=== PATIENT | male | born 1980 | race American Indian/Alaskan Native ===

== ENCOUNTER 2018-01-04 17:19 | Emergency (ER) | payer MEDICAID, OTHER, SELFPAY | END 2018-01-04 22:14 | disposition home or self-care (01) | PROVIDERS: Emergency Provider Emergency Medicine; Visit Provider Emergency Medicine | DX: J45.901 Unspecified asthma with (acute) exacerbation (principal); F41.9 Anxiety disorder, unspecified | CPT/HCPCS: 93005; 93010; 94640; 96372; 99283; J1885; J2930 ==

== ENCOUNTER 2018-01-28 00:52 | Emergency (ER) | payer MEDICAID, OTHER, SELFPAY ==
--- NOTE | 2018-01-28 | DI.US.S_ITS ---
PROCEDURE: US PERIPH VENOUS LOW EXTREM BI INDICATIONS: swelling TECHNIQUE: Real-time imaging, as well as color and pulse Doppler interrogation, were performed of the deep veins of both legs from the inguinal ligament to the popliteal fossa. COMPARISON: None. FINDINGS: Image quality limited secondary to patient body habitus. Only the distal superficial femoral veins and popliteal veins of the lower extremities could be visualized due to patient body habitus. The visualized deep veins are normally compressible, and free of intraluminal thrombus. Color and pulse Doppler demonstrate normal phasic intravascular flow in the visualized. There is normal augmentation response to distal compression maneuver. IMPRESSION: 1. Study limited by patient body habitus. 2. Only the distal superficial femoral veins and the popliteal veins of the right and left lower extremities could be visualized. 3. No thrombus identified in the visualized deep venous system of the right and left lower extremities. Dictated by: Zainab Cardozo MD, PhD on 01/28/2018 at 7:55 Approved by: Zainab Cardozo MD, PhD on 01/28/2018 at 7:57
[2018-01-28 01:10] VITALS: BP 113/56; PULSE 92; RESP 20; TEMP 36.4; O2SAT 93
--- NOTE | 2018-01-28 01:18 | ED.EXTPRO ---
HPI - Extremity Problem General Chief complaint: Extremity Problem,Nontraumatic Stated complaint: LEGS ARE SWOLLEN Time Seen by Provider: 01/28/18 01:18 Source: patient Mode of arrival: wheelchair Limitations: no limitations and other History of Present Illness HPI Narrative: Patient is a 37-year-old morbidly obese male with bilateral lower leg swelling. He says over the past few days he really has not been moving much mostly in his recliner. He feels like his legs are much more swollen and slightly erythematous. He thinks that he has been feverish and he denies any worsening worsening shortness of breath. History of asthma in even requires oxygen sometimes although he is not on oxygen now is not having difficulty breathing. He says his legs her bilaterally. MD Complaint: extremity pain and extremity swelling Onset (ago): day(s) (3) Pain Consistency: constant Location: left, right and lower extremity Related Data Home Medications Medication Instructions Recorded Confirmed methadone 95 mg PO QDAY #0 05/07/17 01/28/18 albuterol sulfate 3 ml INH Q4HP PRN 01/28/18 01/28/18 prednisone 0 PO BID 01/28/18 Previous Rx's Medication Instructions Recorded fluticasone-salmeterol [Advair 1 puff INH BID #2 inh 04/28/17 Diskus] albuterol sulfate [Ventolin HFA] 2 - 4 puff INH SEE INSTRUCTIONS #2 07/16/17 inh furosemide [Lasix] 40 mg PO DAILY #3 tab 01/28/18 sulfamethoxazole-trimethoprim 1 tab PO BID 5 Days #14 tab 01/28/18 [Bactrim DS] Allergies Allergy/AdvReac Type Severity Reaction Status Date / Time NSAIDS (Non-Steroidal Allergy Unknown ASTHMA Verified 01/28/18 01:25 Anti-Inflamma FLARE UPS [NSAIDS (NON-STEROIDAL ANTI-INFLAMMA] ibuprofen AdvReac Mild nausea, GI Verified 01/28/18 01:25 upset Review of Systems Review of Systems All systems reviewed & are unremarkable except as noted in HPI and below Constitutional Denies chills, Reports fever(s), Denies lethargy and Denies weakness Cardiovascular Denies chest pain, Denies irregular heart rhythm, Denies lightheadedness, Denies palpitations, Denies dyspnea on exertion and Denies orthopnea Respiratory Denies change in phlegm color, Denies cough and Denies dyspnea on exertion Gastrointestinal Gastrointestinal: Denies abdominal pain, Denies change in bowel habits, Denies diarrhea, Denies nausea and Denies vomiting Musculoskeletal Reports as per HPI and Denies numbness Neurologic Denies numbness and Denies weakness Endocrine Denies palpitations [facility] Social History Smoking Status: Never smoker Exam Const General: cooperative Nutritional Appearance: obese morbidly obese Orientation: alert, awake and oriented x3 Resp Effort & Inspection: normal respiratory effort, able to speak in complete sentences, no respiratory distress and no use of accessory muscles Auscultation: clear to auscultation bilaterally, no rales, no rhonchi and no wheezes Cardio Rate: regular rate Rhythm: regular rhythm Heart Sounds: no click, no gallops, no murmurs and no rubs Pulses: normal peripheral pulses GI Inspection: non-distended Palpation: soft, no hepatosplenomegaly, No guarding, No pulsatile mass and No tender Auscultation: normal bowel sounds Skin General: erythema (Mild bilateral) Wounds: no wounds and no wounds noted Neuro General: alert, awake and oriented x3 Cranial Nerves: CN's II-XI intact bilaterally Cognition: normal cognition Speech: speech normal Extrem Right lower extremity: edema Details: non-pitting Left lower extremity: edema Details: non-pitting MDM - Extremity (Nontraumatic) MDM Narrative Medical decision making narrative: Patient is a morbidly obese on male with multiple complications. Difficult to tell how much swelling is actually in his lower extremities. Although he does have some. Very slight erythema but no all leukocytosis and he is afebrile. I think the erythema is probably due from some of the swelling. He does not want Lasix here because then he will urinate. He would rather have a prescription he can take it when he gets home. Based on his history I will give him a prescription for an antibiotic. He does get MRSA and skin infections often. Medical Records Attestation: I reviewed the patient's medical records. Lab Data Attestation: I reviewed the patient's lab results. Result diagrams: 01/28/18 01:52 01/28/18 01:52 Lab Results 01/28/18 01/28/18 Range/Units 01:52 01:52 WBC 7.5 (4.5-11.0) X10^3/uL RBC 4.25 L (4.5-5.9) X10^6/uL Hgb 11.1 L (13.5-17.5) g/dL Hct 34.1 L (41-53) % MCV 80.3 (80-100) fL MCH 26.2 (26-34) PG MCHC 32.6 (30-36) % RDW 17.0 H (11.6-14.8) % Plt Count 108 L (150-400) X10^3/uL Neut % (Auto) 68.7 (50-75) % Lymph % (Auto) 19.2 L (25-40) % [place] % (Auto) 7.1 (3-14) % Eos % (Auto) 4.2 H (2-4) % Baso % (Auto) 0.8 (0-2) % Neut # (Auto) 5100 (1361-3816) /uL Sodium 140 (137-145) mmol/L Potassium 3.8 (3.4-5.1) mmol/L Chloride 100.0 (98-107) mmol/L Carbon Dioxide 35.0 H (22-32) mmol/L BUN 10.0 (9-20) mg/dL Creatinine 0.60 L (0.66-1.25) mg/dL Estimated GFR > 60.0 (>60) mL/min BUN/Creatinine Ratio 16.7 (6-22) Glucose 106 H (70-100) mg/dL Calcium 8.1 L (8.4-10.2) mg/dL Total Bilirubin 0.5 (0.2-1.3) mg/dL AST 12 L (17-59) IU/L ALT 22 (21-72) IU/L Alkaline Phosphatase 74 (38-126) U/L B-Natriuretic Peptide < 29.3 L (<100) Total Protein 6.3 (6.3-8.2) g/dL Albumin 3.3 L (3.5-5.0) g/dL Globulin 3.0 (1.7-4.1) g/dL Albumin/Globulin Ratio 1.1 (1.0-2.8) Imaging Data 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 DVT Course Orders Ordered: ED Orders 01/28/18 US periph venous low extrem bi Stat 01/28/18 01:52 B Type Natriuretic Peptide Stat Complete Blood Count AUTO DIFF Stat Comprehensive Metabolic Panel Stat Last Vital Signs Temp 97.6 F 01/28/18 01:10 Pulse 97 H 01/28/18 03:43 Resp 20 01/28/18 01:10 BP 116/47 L 01/28/18 03:43 Pulse Ox 93 01/28/18 01:10 Discharge Plan Departure Patient Disposition: Home, Self-Care Clinical Impression: Edema extremities Discharge Date/Time: 01/28/18 03:43 Interventions: ED Discharge Assessment Last Done: 01/28/18 03:43 Instructions: DI for Dependent Edema Activity Restrictions/Additional Instructions: *You have been diagnosed with bilateral leg edema *What to do: Keep legs elevated *Take medications as directed -Lasix 1 pill once a day in the morning for 3 days -antibiotic until gone *Follow up with your primary care provider in 2-3 days *Return to ER if you should have increasing redness, increasing pain or any new, worsening or concerning symptoms Prescriptions: New sulfamethoxazole-trimethoprim [Bactrim DS] 800-160 mg tablet 1 tab PO BID 5 Days Qty: 14 RF: 0 furosemide [Lasix] 40 mg tablet 40 mg PO DAILY Qty: 3 RF: 0 No Action fluticasone-salmeterol [Advair Diskus] 500 MCG/50 MCG blister with device 1 puff INH BID Qty: 2 RF: 5 methadone 10 MG tablet 95 mg PO QDAY Qty: 0 RF: 0 albuterol sulfate [Ventolin HFA] 90 MCG/PUFF HFA aerosol inhaler 2 - 4 puff INH SEE INSTRUCTIONS Qty: 2 RF: 6 prednisone 10 MG tablet PO BID RF: 0 albuterol sulfate 2.5 MG/3 ML solution for nebulization 3 ml INH Q4HP PRN (Reason: Wheezing) RF: 0 Referrals: Gabe Meraz PA-C [Non-Staff] -
[2018-01-28 02:03] LABS: Add Manual Diff / Slide Review NO; Basophils Percent Auto 0.8 % (0-2); Eosinophils Percent Auto 4.2 % (2-4); Hematocrit 34.1 % (41-53); Hemoglobin 11.1 g/dL (13.5-17.5); Lymphocytes Percent Auto 19.2 % (25-40); Mean Corpuscular HGB Conc 32.6 % (30-36); Mean Corpuscular Hemoglobin 26.2 PG (26-34); Mean Corpuscular Volume 80.3 fL (80-100); Monocytes Percent Auto 7.1 % (3-14); Neutrophils Absolute Auto 5100 /uL (3000-5900); Neutrophils Percent Auto 68.7 % (50-75); Platelet Count 108 X10^3/uL (150-400); Red Blood Cell Count 4.25 X10^6/uL (4.5-5.9); White Blood Cell Count 7.5 X10^3/uL (4.5-11.0)
[2018-01-28 02:12] LABS: Alanine Aminotransferase 22 IU/L (21-72); Albumin 3.3 g/dL (3.5-5.0); Albumin Globulin Ratio 1.1 (1.0-2.8); Alkaline Phosphatase 74 U/L (38-126); Aspartate Aminotransferase 12 IU/L (17-59); BUN Creatinine Ratio 16.7 (6-22); Bilirubin Total 0.5 mg/dL (0.2-1.3); Calcium 8.1 mg/dL (8.4-10.2); Estimated Glomerular Filt Rate > 60.0 mL/min (>60); Glucose 106 mg/dL (70-100); HEMOLYSIS < 15 (0-50); Potassium 3.8 mmol/L (3.4-5.1); Sodium 140 mmol/L (137-145); Total Protein 6.3 g/dL (6.3-8.2)
[2018-01-28 02:25] LABS: B Type Natriuretic Peptide < 29.3 (<100)
[2018-01-28 03:43] VITALS: BP 116/47; PULSE 97
--- NOTE | 2018-01-28 06:27 | ED_ITS ---
HPI - Extremity Problem General Chief complaint: Extremity Problem,Nontraumatic Stated complaint: LEGS ARE SWOLLEN Time Seen by Provider: 01/28/18 01:18 Source: patient Mode of arrival: wheelchair Limitations: no limitations and other History of Present Illness HPI Narrative: Patient is a 37-year-old morbidly obese male with bilateral lower leg swelling. He says over the past few days he really has not been moving much mostly in his recliner. He feels like his legs are much more swollen and slightly erythematous. He thinks that he has been feverish and he denies any worsening worsening shortness of breath. History of asthma in even requires oxygen sometimes although he is not on oxygen now is not having difficulty breathing. He says his legs her bilaterally. MD Complaint: extremity pain and extremity swelling Onset (ago): day(s) (3) Pain Consistency: constant Location: left, right and lower extremity Related Data Home Medications Medication Instructions Recorded Confirmed methadone 95 mg PO QDAY #0 05/07/17 01/28/18 albuterol sulfate 3 ml INH Q4HP PRN 01/28/18 01/28/18 prednisone 0 PO BID 01/28/18 Previous Rx's Medication Instructions Recorded fluticasone-salmeterol [Advair 1 puff INH BID #2 inh 04/28/17 Diskus] albuterol sulfate [Ventolin HFA] 2 - 4 puff INH SEE INSTRUCTIONS #2 07/16/17 inh furosemide [Lasix] 40 mg PO DAILY #3 tab 01/28/18 sulfamethoxazole-trimethoprim 1 tab PO BID 5 Days #14 tab 01/28/18 [Bactrim DS] Allergies Allergy/AdvReac Type Severity Reaction Status Date / Time NSAIDS (Non-Steroidal Allergy Unknown ASTHMA Verified 01/28/18 01:25 Anti-Inflamma FLARE UPS [NSAIDS (NON-STEROIDAL ANTI-INFLAMMA] ibuprofen AdvReac Mild nausea, GI Verified 01/28/18 01:25 upset Review of Systems Review of Systems All systems reviewed & are unremarkable except as noted in HPI and below Constitutional Denies chills, Reports fever(s), Denies lethargy and Denies weakness Cardiovascular Denies chest pain, Denies irregular heart rhythm, Denies lightheadedness, Denies palpitations, Denies dyspnea on exertion and Denies orthopnea Respiratory Denies change in phlegm color, Denies cough and Denies dyspnea on exertion Gastrointestinal Gastrointestinal: Denies abdominal pain, Denies change in bowel habits, Denies diarrhea, Denies nausea and Denies vomiting Musculoskeletal Reports as per HPI and Denies numbness Neurologic Denies numbness and Denies weakness Endocrine Denies palpitations [facility] Social History Smoking Status: Never smoker Exam Const General: cooperative Nutritional Appearance: obese morbidly obese Orientation: alert, awake and oriented x3 Resp Effort & Inspection: normal respiratory effort, able to speak in complete sentences, no respiratory distress and no use of accessory muscles Auscultation: clear to auscultation bilaterally, no rales, no rhonchi and no wheezes Cardio Rate: regular rate Rhythm: regular rhythm Heart Sounds: no click, no gallops, no murmurs and no rubs Pulses: normal peripheral pulses GI Inspection: non-distended Palpation: soft, no hepatosplenomegaly, No guarding, No pulsatile mass and No tender Auscultation: normal bowel sounds Skin General: erythema (Mild bilateral) Wounds: no wounds and no wounds noted Neuro General: alert, awake and oriented x3 Cranial Nerves: CN's II-XI intact bilaterally Cognition: normal cognition Speech: speech normal Extrem Right lower extremity: edema Details: non-pitting Left lower extremity: edema Details: non-pitting MDM - Extremity (Nontraumatic) MDM Narrative Medical decision making narrative: Patient is a morbidly obese on male with multiple complications. Difficult to tell how much swelling is actually in his lower extremities. Although he does have some. Very slight erythema but no all leukocytosis and he is afebrile. I think the erythema is probably due from some of the swelling. He does not want Lasix here because then he will urinate. He would rather have a prescription he can take it when he gets home. Based on his history I will give him a prescription for an antibiotic. He does get MRSA and skin infections often. Medical Records Attestation: I reviewed the patient's medical records. Lab Data Attestation: I reviewed the patient's lab results. Result diagrams: 01/28/18 01:52 01/28/18 01:52 Lab Results 01/28/18 01/28/18 Range/Units 01:52 01:52 WBC 7.5 (4.5-11.0) X10^3/uL RBC 4.25 L (4.5-5.9) X10^6/uL Hgb 11.1 L (13.5-17.5) g/dL Hct 34.1 L (41-53) % MCV 80.3 (80-100) fL MCH 26.2 (26-34) PG MCHC 32.6 (30-36) % RDW 17.0 H (11.6-14.8) % Plt Count 108 L (150-400) X10^3/uL Neut % (Auto) 68.7 (50-75) % Lymph % (Auto) 19.2 L (25-40) % [place] % (Auto) 7.1 (3-14) % Eos % (Auto) 4.2 H (2-4) % Baso % (Auto) 0.8 (0-2) % Neut # (Auto) 5100 (4121-7552) /uL Sodium 140 (137-145) mmol/L Potassium 3.8 (3.4-5.1) mmol/L Chloride 100.0 (98-107) mmol/L Carbon Dioxide 35.0 H (22-32) mmol/L BUN 10.0 (9-20) mg/dL Creatinine 0.60 L (0.66-1.25) mg/dL Estimated GFR > 60.0 (>60) mL/min BUN/Creatinine Ratio 16.7 (6-22) Glucose 106 H (70-100) mg/dL Calcium 8.1 L (8.4-10.2) mg/dL Total Bilirubin 0.5 (0.2-1.3) mg/dL AST 12 L (17-59) IU/L ALT 22 (21-72) IU/L Alkaline Phosphatase 74 (38-126) U/L B-Natriuretic Peptide < 29.3 L (<100) Total Protein 6.3 (6.3-8.2) g/dL Albumin 3.3 L (3.5-5.0) g/dL Globulin 3.0 (1.7-4.1) g/dL Albumin/Globulin Ratio 1.1 (1.0-2.8) Imaging Data 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 Course Orders Ordered: ED Orders 01/28/18 US periph venous low extrem bi Stat 01/28/18 01:52 B Type Natriuretic Peptide Stat Complete Blood Count AUTO DIFF Stat Comprehensive Metabolic Panel Stat Last Vital Signs Temp 97.6 F 01/28/18 01:10 Pulse 97 H 01/28/18 03:43 Resp 20 01/28/18 01:10 BP 116/47 L 01/28/18 03:43 Pulse Ox 93 01/28/18 01:10 Discharge Plan Departure Patient Disposition: Home, Self-Care Clinical Impression: Edema extremities Discharge Date/Time: 01/28/18 03:43 Interventions: ED Discharge Assessment Last Done: 01/28/18 03:43 Instructions: DI for Dependent Edema Activity Restrictions/Additional Instructions: *You have been diagnosed with bilateral leg edema *What to do: Keep legs elevated *Take medications as directed -Lasix 1 pill once a day in the morning for 3 days -antibiotic until gone *Follow up with your primary care provider in 2-3 days *Return to ER if you should have increasing redness, increasing pain or any new , worsening or concerning symptoms Prescriptions: New sulfamethoxazole-trimethoprim [Bactrim DS] 800-160 mg tablet 1 tab PO BID 5 Days Qty: 14 RF: 0 furosemide [Lasix] 40 mg tablet 40 mg PO DAILY Qty: 3 RF: 0 No Action fluticasone-salmeterol [Advair Diskus] 500 MCG/50 MCG blister with device 1 puff INH BID Qty: 2 RF: 5 methadone 10 MG tablet 95 mg PO QDAY Qty: 0 RF: 0 albuterol sulfate [Ventolin HFA] 90 MCG/PUFF HFA aerosol inhaler 2 - 4 puff INH SEE INSTRUCTIONS Qty: 2 RF: 6 prednisone 10 MG tablet PO BID RF: 0 albuterol sulfate 2.5 MG/3 ML solution for nebulization 3 ml INH Q4HP PRN (Reason: Wheezing) RF: 0 Referrals: Gabe Meraz PA-C [Non-Staff] -
== END 2018-01-28 03:43 | disposition home or self-care (01) ==
PROVIDERS: Emergency Provider Emergency Medicine
DX: R60.0 Localized edema (principal)
CPT/HCPCS: 36415; 80053; 83880; 85025; 93970; 99282; 99284

== ENCOUNTER 2018-02-04 05:31 | Emergency (ER) | payer MEDICAID, OTHER, SELFPAY ==
[2018-02-04 05:41] VITALS: BP 152/70; PULSE 98; RESP 20; TEMP 36.8; O2SAT 99; BMI 84.1
[2018-02-04] MEDS: HALOPERIDOL 5 MG/ML VIAL 3 MG IM ×2 (06:12→06:52)
[2018-02-04] MEDS: LORazepam 2 MG/ML SYRINGE 1 MG IM ×2 (06:12→06:53)
--- NOTE | 2018-02-04 06:56 | ED_ITS ---
HPI - Anxiety General Chief Complaint: Anxiety Stated Complaint: CHEST HURTS, BODY IS RESTLESS, FEELS FUNNY History of Present Illness HPI narrative: HPI 37-year-old morbidly obese male with history of asthma, RAJESH, morbid obesity, anxiety presents for evaluation of feeling anxious that is been present since yesterday evening. Patient continues to take p.o. well, pass urine, flatus, and stool at baseline, denies dysuria, urinary frequency, diarrhea, shortness of breath, cough, and has been afebrile without chills. Patient denies history of DVT or PE. Denies change in health since prior evaluation 01/25 M/S/F/SocHx notable for: please see HPI; remainder reviewed with patient and in chart. ROS: Negative constitutional, eye, cardiovascular, pulmonary, GI, , MSK, skin , neurologic, psychiatric, endocrine unless noted in the HPI. Exam HR 98, BP 152/70, RR 20, T 98.2 ?F, SaO2 99 % on room air; at 5:41 AM. Gen: pleasant, nontoxic-appearing, tearful, resting comfortably. HEENT: NC, AT, PEERL, EOMI. Resp: Clear to auscultation bilaterally, normal work of breathing, no accessory muscle usage. Card: Regular rate and rhythm with no murmurs, rubs, or gallops, extremities warm and well perfused. GI: Non-tender to palpation throughout all quadrants, no focal tenderness at McBurney's point, negative Leyva's sign, non-distended, no rebound or guarding. : No suprapubic tenderness to palpation. MSK: No visible deformities, strength and tone without visually appreciable deficit. Skin: Normal color with no visible lesions. Neuro: AO x 3, no facial asymmetry, vision and hearing WNL. Psych: tearful, emotionally labile, redirectable, mood and affect otherwise appropriate. MDM Previous chart, nursing note, labs, imaging, and vitals reviewed. A: 37-year-old morbidly obese male with history of asthma, RAJESH, morbid obesity, anxiety presents for evaluation of feeling anxious that is been present since yesterday evening. DDx: anxiety secondary to pneumonia, hypoxemia, PE, electrolyte abnormalities, psychological stress, drug withdraw. Evaluation: at the time of initial evaluation the patient's history and exam are without findings suggestive of pneumonia, and vitals are without hypoxemia, patient is PERC negative, and labs on 01/28/18 (which by history remained clinically relevant) are without evidence of clinically significant electrolyte abnormalities. Patient was given 3 mg haloperidol and 1 mg Ativan IM with moderate improvement of symptoms, patient was given a repeat dose 3 mg haloperidol and 1 mg Ativan IM prior to patient care transfer to the oncoming daytime provider. History is without clear evidence of drug withdraw. Please refer to the daytime provider's note for the remainder of the patient's evaluation in disposition. (please reference below for remainder of encounter information) PERC negative (age >= 50 - N, HR >= 100 - N, SaO2 < 95 - N, prior DVT - N, trauma or surgery in last 4 weeks - N, hemoptysis - N, exogenous estrogen - N, unilateral leg swelling - N). Related Data Home Medications Medication Instructions Recorded Confirmed methadone 95 mg PO QDAY #0 05/07/17 01/28/18 albuterol sulfate 3 ml INH Q4HP PRN 01/28/18 01/28/18 prednisone 0 PO BID 01/28/18 Previous Rx's Medication Instructions Recorded fluticasone-salmeterol [Advair 1 puff INH BID #2 inh 04/28/17 Diskus] albuterol sulfate [Ventolin HFA] 2 - 4 puff INH SEE INSTRUCTIONS #2 07/16/17 inh furosemide [Lasix] 40 mg PO DAILY #3 tab 01/28/18 Allergies Allergy/AdvReac Type Severity Reaction Status Date / Time NSAIDS (Non-Steroidal Allergy Unknown ASTHMA Verified 01/28/18 01:25 Anti-Inflamma FLARE UPS [NSAIDS (NON-STEROIDAL ANTI-INFLAMMA] ibuprofen AdvReac Mild nausea, GI Verified 01/28/18 01:25 upset PFSH Social History Smoking Status: Never smoker Exam Initial Vital Signs Initial Vital Signs: Vital Signs Temperature 98.2 F 02/04/18 05:41 Pulse Rate 98 H 02/04/18 05:41 Respiratory Rate 20 02/04/18 05:41 Blood Pressure 152/70 H 02/04/18 05:41 Pulse Oximetry 99 02/04/18 05:41 Course Orders Ordered: Discontinued Medications Haloperidol (Haldol) 3 mg IM NOW ONE Stop: 02/04/18 05:54 Last Admin: 02/04/18 06:12 Dose: 3 mg Haloperidol (Haldol) 3 mg IM NOW ONE Stop: 02/04/18 06:46 Last Admin: 02/04/18 06:52 Dose: 3 mg Lorazepam (Ativan) 1 mg IM NOW ONE Stop: 02/04/18 05:54 Last Admin: 02/04/18 06:12 Dose: 1 mg Lorazepam (Ativan) 1 mg IM NOW ONE Stop: 02/04/18 06:46 Last Admin: 02/04/18 06:53 Dose: 1 mg Vital Signs - 8 hr 02/04/18 05:41 Temperature 98.2 F Pulse Rate 98 H Respiratory Rate 20 Blood Pressure 152/70 H Pulse Oximetry 99 Discharge Plan Departure Prescriptions: No Action fluticasone-salmeterol [Advair Diskus] 500 MCG/50 MCG blister with device 1 puff INH BID Qty: 2 RF: 5 methadone 10 MG tablet 95 mg PO QDAY Qty: 0 RF: 0 albuterol sulfate [Ventolin HFA] 90 MCG/PUFF HFA aerosol inhaler 2 - 4 puff INH SEE INSTRUCTIONS Qty: 2 RF: 6 prednisone 10 MG tablet PO BID RF: 0 albuterol sulfate 2.5 MG/3 ML solution for nebulization 3 ml INH Q4HP PRN (Reason: Wheezing) RF: 0 furosemide [Lasix] 40 mg tablet 40 mg PO DAILY Qty: 3 RF: 0
--- NOTE | 2018-02-04 07:28 | PC.NURSE ---
Pt crying in room. States I'm going to loose it and start throwing things. Verbally reassured. Pt requesting more medication. Can't you just tranquilize me?. Dr. Roberts in to re-evaluate.
[2018-02-04] MEDS: diphenhydrAMINE 50 MG/ML VIAL IV (07:38)
[2018-02-04 08:10] VITALS: BP 167/66; PULSE 125; RESP 20; O2SAT 95
--- NOTE | 2018-02-04 08:20 | PC.NURSE ---
Dr. Roberts in to re-evaluate. Pt requesting to shower. Pt is 222 kg. No shower chair available for use. Safety is a concern. Mother 8 pt verbalized understanding.
[2018-02-04] MEDS: OLANZapine ODT 10 MG TAB 20 MG PO (08:30)
== END 2018-02-04 10:09 | disposition home or self-care (01) ==
PROVIDERS: Emergency Provider Emergency Medicine
DX: F41.9 Anxiety disorder, unspecified (principal); J18.9 Pneumonia, unspecified organism
CPT/HCPCS: 82962; 96372; 99283; J1200; J1630; J2060

== ENCOUNTER 2018-02-21 06:41 | Emergency (ER) | payer MEDICAID, OTHER, SELFPAY ==
[2018-02-21 06:49] VITALS: BP 133/61; PULSE 88; RESP 20; TEMP 36.7; O2SAT 96; BMI 82.3
[2018-02-21] MEDS: ALBUTEROL/IPRATROPIUM 3 ML AMPUL INH (07:45)
[2018-02-21 07:48] VITALS: PULSE 84; RESP 18; O2SAT 94
[2018-02-21] MEDS: OLANZapine ODT 10 MG TAB 20 MG PO (08:00)
--- NOTE | 2018-02-21 08:03 | PC.NURSE ---
gave 20 mg of olanzapine odt, could not scan second dose of 10mg
--- NOTE | 2018-02-21 08:30 | PC.NURSE ---
since admit to ed, he has been crying at times, yelling out for nurse, using call light. wanting indvididual things. 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 answered as he calls.
[2018-02-21 08:34] LABS: Add Manual Diff / Slide Review NO; Basophils Percent Auto 0.8 % (0-2); Eosinophils Percent Auto 2.7 % (2-4); Hematocrit 37.1 % (41-53); Hemoglobin 12.2 g/dL (13.5-17.5); Mean Corpuscular HGB Conc 32.8 % (30-36); Mean Corpuscular Hemoglobin 26.4 PG (26-34); Mean Corpuscular Volume 80.6 fL (80-100); Monocytes Percent Auto 6.3 % (3-14); Neutrophils Absolute Auto 7000 /uL (3000-5900); Neutrophils Percent Auto 79.2 % (50-75); Platelet Count 164 X10^3/uL (150-400); Red Cell Distribution Width 16.6 % (11.6-14.8); White Blood Cell Count 8.8 X10^3/uL (4.5-11.0)
[2018-02-21 08:43] LABS: Bacteria Urine None Seen; RBC Urine None Seen (0-5/HPF); WBC Urine None Seen (0-5/HPF)
[2018-02-21 08:46] LABS: Appearance Urine UA CLOUDY; Bilirubin Urine UA NEGATIVE (NEGATIVE); Color Urine UA YELLOW; Glucose Urine UA NEGATIVE (Normal); Ketones Urine UA NEGATIVE (NEGATIVE); Leukocyte Esterase Urine UA NEGATIVE (NEGATIVE); Nitrite Urine UA Negative (Negative); Occult Blood Urine UA NEGATIVE (Negative); Protein Urine UA NEGATIVE (Negative); Specific Gravity Urine UA 1.015 (1.000-1.035); Urobilinogen Urine UA 0.2 E.U./dL (0.2)
[2018-02-21 08:47] LABS: Lactate (Lactic Acid) 0.9 mmol/L (0.7-2.1)
[2018-02-21 08:48] LABS: BUN Creatinine Ratio 13.3 (6-22); Blood Urea Nitrogen 8 mg/dL (9-20); Calcium 8.4 mg/dL (8.4-10.2); Carbon Dioxide 33 mmol/L (22-32); Chloride 98 mmol/L (98-107); Estimated Glomerular Filt Rate > 60.0 mL/min (>60); Glucose 106 mg/dL (70-100); HEMOLYSIS < 15 (0-50); Potassium 3.4 mmol/L (3.4-5.1); Sodium 142 mmol/L (137-145)
[2018-02-21 08:50] LABS: Squamous Epithelial Cell Urine 1-5 /HPF
[2018-02-21 08:51] LABS: Amorphous Sediment Urine 3+; Culture Indicated Urine Cult Not Indicated
--- NOTE | 2018-02-21 09:09 | ED_ITS ---
HPI - Neuro Symptoms/Deficit General Chief Complaint: Neuro Symptoms/Deficit Stated Complaint: BODY 'FEELS FUNNY DRIVING ME CRAZY' Time Seen by Provider: 02/21/18 07:01 History of Present Illness HPI Narrative: HPI 37-year-old morbidly obese male with history of asthma, RAJESH, morbid obesity, anxiety presents for evaluation of feeling anxious and unwell that is been present for approximately one day. Patient continues to take p.o. well, pass urine, flatus, and stool at baseline, denies dysuria, urinary frequency, diarrhea, shortness of breath, cough, and has been afebrile without chills. Patient denies history of DVT or PE. Denies change in health since prior evaluation 01/25 and 02/04. Patient believes he may be having a mild exacerbation of his asthma. M/S/F/SocHx notable for: please see HPI; remainder reviewed with patient and in chart. ROS: Negative constitutional, eye, cardiovascular, pulmonary, GI, , MSK, skin , neurologic, psychiatric, endocrine unless noted in the HPI. Exam HR 68, BP 132/85, RR 12, T 98 ?F, SaO2 100 % on room air; at 7:23 AM. Gen: pleasant, nontoxic-appearing, tearful, resting comfortably. HEENT: NC, AT, PEERL, EOMI. Resp: mild extra wheezing throughout all lung wade, otherwise clear to auscultation bilaterally., normal work of breathing, no accessory muscle usage. Card: Regular rate and rhythm with no murmurs, rubs, or gallops, extremities warm and well perfused. GI: Non-tender to palpation throughout all quadrants, no focal tenderness at McBurney's point, negative Leyva's sign, non-distended, no rebound or guarding. : No suprapubic tenderness to palpation. MSK: No visible deformities, strength and tone without visually appreciable deficit. Skin: Normal color with no visible lesions. Neuro: AO x 3, no facial asymmetry, vision and hearing WNL. Psych: tearful, emotionally labile, redirectable, mood and affect otherwise appropriate. Labs: WBC 8.8, Hb 12.2, lactic acid 0.9, sodium 142, potassium 3.4 UA - negative occult blood, negative nitrate, negative leukocyte esterase, 1-5 squamous epithelial cells, no bacteria. MDM Previous chart, nursing note, labs, imaging, and vitals reviewed. A: 37-year-old morbidly obese male with history of asthma, RAJESH, morbid obesity, anxiety presents for evaluation of feeling anxious that is been present since yesterday evening. DDx: anxiety secondary to pneumonia, hypoxemia, PE, electrolyte abnormalities, psychological stress, drug withdraw, UTI. Evaluation: at the time of initial evaluation the patient's history and exam are without findings suggestive of pneumonia, and vitals are without hypoxemia, patient is PERC negative, and labs are without evidence of clinically significant electrolyte abnormalities. UA without evidence of infection. Olanzipine 20 mg PO given. History is without clear evidence of drug withdraw. Exam with mild asthma exacerbation. Patient given albuterol with improvement of symptoms. Patient with improvement of symptoms after above interventions. Impression: anxiety (please reference below for remainder of encounter information) PERC negative (age >= 50 - N, HR >= 100 - N, SaO2 < 95 - N, prior DVT - N, trauma or surgery in last 4 weeks - N, hemoptysis - N, exogenous estrogen - N, unilateral leg swelling - N). Patient was notified of their elevated blood pressure and recommended to follow up with their primary care physician. As the patient is without evidence of acute end organ dysfunction no further emergent evaluation is indicated as per the 2013 [facility] clinical policy. Related Data Home Medications Medication Instructions Recorded Confirmed methadone 95 mg PO QDAY #0 05/07/17 02/04/18 albuterol sulfate 3 ml INH Q4HP PRN 01/28/18 02/04/18 prednisone 10 mg PO BID 01/28/18 02/04/18 albuterol sulfate [Ventolin HFA] 2 - 4 puff INH SEE INSTRUCTIONS PRN 02/04/18 Previous Rx's Medication Instructions Recorded fluticasone-salmeterol [Advair 1 puff INH BID #2 inh 04/28/17 Diskus] Allergies Allergy/AdvReac Type Severity Reaction Status Date / Time NSAIDS (Non-Steroidal Allergy Unknown ASTHMA Verified 01/28/18 01:25 Anti-Inflamma FLARE UPS [NSAIDS (NON-STEROIDAL ANTI-INFLAMMA] ibuprofen AdvReac Mild nausea, GI Verified 01/28/18 01:25 upset PFSH Social History Smoking Status: Never smoker Exam Initial Vital Signs Initial Vital Signs: Vital Signs Temperature 98.0 F 02/21/18 06:49 Pulse Rate 88 02/21/18 06:49 Respiratory Rate 20 02/21/18 06:49 Blood Pressure 133/61 H 02/21/18 06:49 Pulse Oximetry 96 02/21/18 06:49 Course Orders Ordered: ED Orders 02/21/18 08:25 Basic Metabolic Panel Stat Complete Blood Count AUTO DIFF Stat Lactate (Lactic Acid) Stat 02/21/18 08:40 Urinalysis and Microscopic Stat Discontinued Medications Albuterol/Ipratropium (Duoneb) 3 ml INH NOW ONE Stop: 02/21/18 07:34 Last Admin: 02/21/18 07:45 Dose: 3 ml Olanzapine (Zyprexa Zydis) 20 mg PO NOW ONE Stop: 02/21/18 07:34 Last Admin: 02/21/18 08:00 Dose: 10 mg Vital Signs - 8 hr 02/21/18 06:49 02/21/18 07:48 Temperature 98.0 F Pulse Rate 88 84 Respiratory Rate 20 18 Blood Pressure 133/61 H Pulse Oximetry 96 94 MDM - Neuro Symptoms/Deficit Lab Data Result diagrams: 02/21/18 08:25 02/21/18 08:25 Lab Results 02/21/18 02/21/18 02/21/18 Range/Units 08:25 08:25 08:25 WBC 8.8 (4.5-11.0) X10^3/uL RBC 4.60 (4.5-5.9) X10^6/uL Hgb 12.2 L (13.5-17.5) g/dL Hct 37.1 L (41-53) % MCV 80.6 (80-100) fL MCH 26.4 (26-34) PG MCHC 32.8 (30-36) % RDW 16.6 H (11.6-14.8) % Plt Count 164 (150-400) X10^3/uL Neut % (Auto) 79.2 H (50-75) % Lymph % (Auto) 11.0 L (25-40) % [place] % (Auto) 6.3 (3-14) % Eos % (Auto) 2.7 (2-4) % Baso % (Auto) 0.8 (0-2) % Neut # (Auto) 7000 H (1297-4105) /uL Sodium 142 (137-145) mmol/L Potassium 3.4 (3.4-5.1) mmol/L Chloride 98 (98-107) mmol/L Carbon Dioxide 33 H (22-32) mmol/L BUN 8 L (9-20) mg/dL Creatinine 0.60 L (0.66-1.25) mg/dL Estimated GFR > 60.0 (>60) mL/min BUN/Creatinine Ratio 13.3 (6-22) Glucose 106 H (70-100) mg/dL Lactate 0.9 (0.7-2.1) mmol/L Calcium 8.4 (8.4-10.2) mg/dL Urine Color Urine Appearance Urine pH (4.5-8.0) Ur Specific Continental (1.000-1.035) Urine Protein (Negative) Urine Glucose (UA) (Normal) g/dL Urine Ketones (NEGATIVE) Urine Occult Blood (Negative) Urine Nitrate (Negative) Urine Bilirubin (NEGATIVE) Urine Urobilinogen (0.2) E.U./dL Ur Leukocyte Esterase (NEGATIVE) Urine RBC (0-5/HPF) Urine WBC (0-5/HPF) Ur Squamous Epith Cells Amorphous Sediment Urine Bacteria (None) Ur Culture Indicated? Micro UA Comment 02/21/18 Range/Units 08:40 WBC (4.5-11.0) X10^3/uL RBC (4.5-5.9) X10^6/uL Hgb (13.5-17.5) g/dL Hct (41-53) % MCV (80-100) fL MCH (26-34) PG MCHC (30-36) % RDW (11.6-14.8) % Plt Count (150-400) X10^3/uL Neut % (Auto) (50-75) % Lymph % (Auto) (25-40) % [place] % (Auto) (3-14) % Eos % (Auto) (2-4) % Baso % (Auto) (0-2) % Neut # (Auto) (1551-3547) /uL Sodium (137-145) mmol/L Potassium (3.4-5.1) mmol/L Chloride (98-107) mmol/L Carbon Dioxide (22-32) mmol/L BUN (9-20) mg/dL Creatinine (0.66-1.25) mg/dL Estimated GFR (>60) mL/min BUN/Creatinine Ratio (6-22) Glucose (70-100) mg/dL Lactate (0.7-2.1) mmol/L Calcium (8.4-10.2) mg/dL Urine Color Yellow Urine Appearance Cloudy Urine pH 8.0 (4.5-8.0) Ur Specific [place] 1.015 (1.000-1.035) Urine Protein Negative (Negative) Urine Glucose (UA) Negative (Normal) g/dL Urine Ketones Negative (NEGATIVE) Urine Occult Blood Negative (Negative) Urine Nitrate Negative (Negative) Urine Bilirubin Negative (NEGATIVE) Urine Urobilinogen 0.2 (0.2) E.U./dL Ur Leukocyte Esterase Negative (NEGATIVE) Urine RBC None seen (0-5/HPF) Urine WBC None seen (0-5/HPF) Ur Squamous Epith Cells 1-5 /hpf Amorphous Sediment 3+ Urine Bacteria None seen (None) Ur Culture Indicated? Cult not indicated Micro UA Comment Not Reportable Discharge Plan Departure Prescriptions: No Action fluticasone-salmeterol [Advair Diskus] 500 MCG/50 MCG blister with device 1 puff INH BID Qty: 2 RF: 5 methadone 10 MG tablet 95 mg PO QDAY Qty: 0 RF: 0 prednisone 10 MG tablet 10 mg PO BID RF: 0 albuterol sulfate 2.5 MG/3 ML solution for nebulization 3 ml INH Q4HP PRN (Reason: Wheezing) RF: 0 albuterol sulfate [Ventolin HFA] 90 MCG/PUFF HFA aerosol inhaler 2 - 4 puff INH SEE INSTRUCTIONS PRN (Reason: Wheezing) RF: 0
[2018-02-21 09:59] VITALS: BP 140/72; PULSE 82; RESP 20; O2SAT 97
== END 2018-02-21 10:00 | disposition home or self-care (01) ==
PROVIDERS: Emergency Provider Emergency Medicine
DX: F41.9 Anxiety disorder, unspecified (principal)
CPT/HCPCS: 36415; 80048; 81001; 82962; 83605; 85025; 94150; 94640; 99283

== ENCOUNTER 2018-02-26 07:56 | Emergency (ER) | payer MEDICAID, OTHER, SELFPAY ==
[2018-02-26 08:08] VITALS: BP 134/67; PULSE 78; RESP 22; TEMP 35.8; O2SAT 97
--- NOTE | 2018-02-26 08:17 | PC.NURSE ---
Checked on Patient on arrival. Ok to wait for triage. In room now and MD to see.
--- NOTE | 2018-02-26 08:48 | ED.EXTPRO ---
HPI - Extremity Problem General Chief complaint: Extremity Problem,Nontraumatic Stated complaint: tingling in legs Time Seen by Provider: 02/26/18 08:00 Source: patient Mode of arrival: ambulatory Limitations: no limitations History of Present Illness HPI Narrative: Patient returns to the emergency department with chief complaint of occasional tingling in his legs. It is not persistent. He denies any weakness. He denies any injury. Denies any trouble with bowel or bladder control. He denies any other neurologic symptoms. He does have a tender spot on his right lower extremity that occasionally drains and causes him some tenderness Onset (ago): day(s) Pain Consistency: intermittent Related Data Home Medications Medication Instructions Recorded Confirmed methadone 95 mg PO QDAY #0 05/07/17 02/04/18 albuterol sulfate 3 ml INH Q4HP PRN 01/28/18 02/04/18 prednisone 10 mg PO BID 01/28/18 02/04/18 albuterol sulfate [Ventolin HFA] 2 - 4 puff INH SEE INSTRUCTIONS PRN 02/04/18 02/04/18 Previous Rx's Medication Instructions Recorded fluticasone-salmeterol [Advair 1 puff INH BID #2 inh 04/28/17 Diskus] alprazolam [Xanax] 0.25 mg PO BID-TID PRN #14 tab 02/26/18 doxycycline hyclate 100 mg PO Q12H #14 tab 02/26/18 Allergies Allergy/AdvReac Type Severity Reaction Status Date / Time NSAIDS (Non-Steroidal Allergy Unknown ASTHMA Verified 01/28/18 01:25 Anti-Inflamma FLARE UPS [NSAIDS (NON-STEROIDAL ANTI-INFLAMMA] ibuprofen AdvReac Mild nausea, GI Verified 01/28/18 01:25 upset Review of Systems Review of Systems All systems reviewed & are unremarkable except as noted in HPI and below Constitutional Denies chills, Denies fever(s), Denies lethargy and Denies weakness Eyes Denies change in vision, Denies eye discharge, Denies irritation and Denies loss of vision ENT Ears, Nose, Mouth, and Throat: Denies change in voice, Denies neck pain and Denies sore throat Cardiovascular Denies chest pain, Denies irregular heart rhythm, Denies lightheadedness, Denies palpitations, Denies dyspnea, Denies dyspnea on exertion and Denies orthopnea Respiratory Denies cough, Denies dyspnea, Denies dyspnea on exertion and Denies wheezing Gastrointestinal Gastrointestinal: Denies abdominal pain, Denies change in bowel habits, Denies diarrhea, Denies nausea and Denies vomiting Genitourinary Denies hematuria, Denies flank pain, Denies urinary incontinence and Denies urinary urgency Musculoskeletal Denies neck pain and Reports tingling Integumentary/Breasts Denies pruritus, Reports erythema, Denies rash, Reports skin pain, Reports skin swelling and Denies wounds Neurologic Denies confusion, Denies loss of vision, Reports tingling and Denies weakness Psychiatric Reports anxiety, Denies confusion, Denies depression, Denies homicidal ideation and Denies suicidal ideation Endocrine Denies palpitations Hematologic/Lymphatic Denies easy bruising Allergic/Immunologic Denies wheezing PFSH Social History Smoking Status: Never smoker Exam Initial Vital Signs Initial Vital Signs: Vital Signs Temperature 96.5 F L 02/26/18 08:08 Pulse Rate 78 02/26/18 08:08 Respiratory Rate 22 02/26/18 08:08 Blood Pressure 134/67 H 02/26/18 08:08 Pulse Oximetry 97 02/26/18 08:08 Const General: cooperative and well developed Nutritional Appearance: well nourished Orientation: alert, awake, oriented x3 and not confused HENMT Head: normocephalic and atraumatic Ears: external ears normal and TM's normal bilaterally Nose: external nose normal and No nasal discharge Face and sinus: sinuses nontender, face symmetric, no sinus tenderness and No dry mucous membranes Mouth: oral mucosae normal and moist mucous membranes Teeth and gingiva: dentition normal Throat: tonsils normal and uvula midline Eyes General: appearance normal, both eyes and all related structures Eyelids: eyelids normal Conjunctivae: conjunctivae normal Sclera: sclerae normal Pupils: PERRL EOM: EOM intact bilaterally Chest Chest: normal inspection of the chest Cardio Rate: regular rate Rhythm: regular rhythm Heart Sounds: no click, no gallops, no murmurs and no rubs Pulses: normal peripheral pulses Back/Spine/Pelvis Back: No CVA tenderness Cervical Spine: cervical ROM normal and No pain with cervical ROM Thoracic/Lumbar Spine: thoracic and lumbar spine normal to inspection Skin General: no rashes or lesions noted, No jaundice and No petechiae Neuro General: alert, awake and oriented x3 Cognition: normal cognition Speech: speech normal Motor: muscle tone normal throughout Sensory Exam: no sensory deficits noted Extrem Right lower extremity: lower leg (Small, quarter-sized area of induration on right lateral lower leg with very minimal induration and pain. No active drainage) Psych Appearance: disheveled Mental Status: mental status grossly normal Speech and Movement: speech and movement normal Mood: anxious mood Course Orders Ordered: Discontinued Medications Lorazepam (Ativan) 1 mg PO NOW ONE Stop: 02/26/18 10:06 Last Admin: 02/26/18 10:12 Dose: 1 mg Vital Signs - 8 hr 02/26/18 08:08 02/26/18 10:37 Temperature 96.5 F L Pulse Rate 78 85 Respiratory Rate 22 20 Blood Pressure 134/67 H 118/68 Pulse Oximetry 97 95 Discharge Plan Departure Patient Disposition: Home, Self-Care Clinical Impression: Anxiety, Abscess Discharge Date/Time: 02/26/18 10:38 Interventions: ED Discharge Assessment Last Done: 02/26/18 10:37 Instructions: DI for Skin Abscess Activity Restrictions/Additional Instructions: *You have been diagnosed with [ anxiety and small abscess on right leg ] *What to do: *Take medications as directed *Follow up with your primary care provider in 2-3 days *Return to ER if you should have any new, worsening or concerning symptoms Prescriptions: New alprazolam [Xanax] 0.25 mg tablet 0.25 mg PO BID-TID PRN (Reason: anxiety) Qty: 14 RF: 0 doxycycline hyclate 100 mg tablet 100 mg PO Q12H Qty: 14 RF: 0 No Action fluticasone-salmeterol [Advair Diskus] 500 MCG/50 MCG blister with device 1 puff INH BID Qty: 2 RF: 5 methadone 10 MG tablet 95 mg PO QDAY Qty: 0 RF: 0 prednisone 10 MG tablet 10 mg PO BID RF: 0 albuterol sulfate 2.5 MG/3 ML solution for nebulization 3 ml INH Q4HP PRN (Reason: Wheezing) RF: 0 albuterol sulfate [Ventolin HFA] 90 MCG/PUFF HFA aerosol inhaler 2 - 4 puff INH SEE INSTRUCTIONS PRN (Reason: Wheezing) RF: 0
[2018-02-26] MEDS: LORazepam 1 MG TABLET PO (10:12)
[2018-02-26 10:37] VITALS: BP 118/68; PULSE 85; RESP 20; O2SAT 95
== END 2018-02-26 10:38 | disposition home or self-care (01) ==
PROVIDERS: Emergency Provider Emergency Medicine
DX: L02.415 Cutaneous abscess of right lower limb (principal); F41.9 Anxiety disorder, unspecified
CPT/HCPCS: 99283

== ENCOUNTER 2018-03-02 09:36 | Emergency (ER) | payer MEDICAID, OTHER, SELFPAY ==
[2018-03-02 09:56] VITALS: BP 113/58; PULSE 97; RESP 20; TEMP 37.5; O2SAT 95
[2018-03-02 10:02] VITALS: BP 113/57; PULSE 97; RESP 20; TEMP 37.5; O2SAT 95; BMI 95.7
--- NOTE | 2018-03-02 10:34 | ED.ANXIETY ---
HPI - Anxiety General Chief Complaint: Anxiety Stated Complaint: MY BODY IS FEELING FUNNY, TINGLING IN LEGS Time Seen by Provider: 03/02/18 10:11 Source: patient Mode of arrival: ambulatory Limitations: no limitations History of Present Illness HPI narrative: Patient is a 37-year-old male presenting with anxiety reaction. Of this is his 3rd visit to the ED for the same. He initially was given Zyprexa and had blood work on 02/21/2018. He was then seen on 02/26/2018 and given some Xanax. He does back with the same complaining of numbness tingling all over his body. He is crying and emotional. He can't think of anything that is going on at home he and his girlfriend are doing well he feels like that is stable. He sometimes has hallucinations not currently having any audible or visual hallucinations now. Denies any shortness of breath or chest pain. MD complaint: anxiety Related Data Home Medications Medication Instructions Recorded Confirmed methadone 95 mg PO QDAY #0 05/07/17 03/02/18 albuterol sulfate 3 ml INH Q4HP PRN 01/28/18 03/02/18 prednisone 10 mg PO BID 01/28/18 03/02/18 albuterol sulfate [Ventolin HFA] 2 - 4 puff INH SEE INSTRUCTIONS PRN 02/04/18 03/02/18 Previous Rx's Medication Instructions Recorded fluticasone-salmeterol [Advair 1 puff INH BID #2 inh 04/28/17 Diskus] doxycycline hyclate 100 mg PO Q12H #14 tab 02/26/18 Allergies Allergy/AdvReac Type Severity Reaction Status Date / Time NSAIDS (Non-Steroidal Allergy Unknown ASTHMA Verified 03/02/18 10:02 Anti-Inflamma FLARE UPS [NSAIDS (NON-STEROIDAL ANTI-INFLAMMA] ibuprofen AdvReac Mild nausea, GI Verified 03/02/18 10:02 upset Review of Systems Review of Systems All systems reviewed & are unremarkable except as noted in HPI and below Constitutional Denies chills, Denies fever(s), Denies lethargy and Denies weakness Cardiovascular Denies dyspnea and Denies dyspnea on exertion Respiratory Denies cough, Denies dyspnea, Denies dyspnea on exertion and Denies wheezing Neurologic Reports system reviewed and no additional complaints, except as docu and Denies weakness Psychiatric Reports system reviewed and no additional complaints, except as docu and Reports as per HPI Allergic/Immunologic Denies wheezing [facility] Medical History Anxiety (Acute) Asthma (Acute) Morbid obesity (Acute) Social History Smoking Status: Never smoker Exam Initial Vital Signs Initial Vital Signs: Vital Signs Temperature 99.5 F 03/02/18 09:56 Pulse Rate 97 H 03/02/18 09:56 Respiratory Rate 20 03/02/18 09:56 Blood Pressure 113/58 L 03/02/18 09:56 Pulse Oximetry 95 03/02/18 09:56 Const General: other (Crying) Nutritional Appearance: obese morbidly obese Orientation: alert, awake and oriented x3 Resp Effort & Inspection: normal respiratory effort, able to speak in complete sentences, no respiratory distress and no use of accessory muscles Auscultation: clear to auscultation bilaterally, no rales, no rhonchi and no wheezes Cardio Rate: regular rate Rhythm: regular rhythm Heart Sounds: no click, no gallops, no murmurs and no rubs Pulses: normal peripheral pulses Neuro General: alert and oriented x3 Cranial Nerves: CN's II-XI intact bilaterally Extrem General: full ROM, no clubbing, cyanosis or edema, no pedal edema and no calf tenderness Course Orders Ordered: Discontinued Medications Olanzapine (Zyprexa Zydis) 10 mg PO NOW ONE Stop: 03/02/18 10:43 Last Admin: 03/02/18 10:58 Dose: 10 mg Vital Signs - 8 hr 03/02/18 11:41 Pulse Rate 86 Respiratory Rate 20 Blood Pressure [Right Arm] 126/46 H Pulse Oximetry 95 MDM - Anxiety MDM Narrative Medical decision making narrative: Patient is feeling better with Zyprexa. He has an appointment tomorrow with his new primary care provider. I discussed with him to talk about anxiety medications. Discharge Plan Departure Patient Disposition: Home, Self-Care Clinical Impression: Anxiety Discharge Date/Time: 03/02/18 12:16 Interventions: ED Discharge Assessment Last Done: 03/02/18 12:14 Instructions: DI for Anxiety -- Adult Activity Restrictions/Additional Instructions: *You have been diagnosed with Anxiety *What to do: Ask your doctor tomrrow abut Zyprexa for anxiey *Continue to take medications as directed *Follow up with your primary care provider in 2-3 days *Return to ER if you should have increasing shortness of breath, anxiety or any new, worsening or concerning symptoms Prescriptions: No Action fluticasone-salmeterol [Advair Diskus] 500 MCG/50 MCG blister with device 1 puff INH BID Qty: 2 RF: 5 methadone 10 MG tablet 95 mg PO QDAY Qty: 0 RF: 0 prednisone 10 MG tablet 10 mg PO BID RF: 0 albuterol sulfate 2.5 MG/3 ML solution for nebulization 3 ml INH Q4HP PRN (Reason: Wheezing) RF: 0 albuterol sulfate [Ventolin HFA] 90 MCG/PUFF HFA aerosol inhaler 2 - 4 puff INH SEE INSTRUCTIONS PRN (Reason: Wheezing) RF: 0 doxycycline hyclate 100 mg tablet 100 mg PO Q12H Qty: 14 RF: 0
[2018-03-02 10:49] VITALS: BP 134/66; PULSE 88; RESP 18; O2SAT 94
[2018-03-02] MEDS: OLANZapine ODT 10 MG TAB PO (10:58)
[2018-03-02 11:41] VITALS: BP 126/46; PULSE 86; RESP 20; O2SAT 95
== END 2018-03-02 12:16 | disposition home or self-care (01) ==
PROVIDERS: Emergency Provider Emergency Medicine
DX: F41.3 Other mixed anxiety disorders (principal)
CPT/HCPCS: 99283

== ENCOUNTER 2018-03-05 12:03 | Emergency (ER) | payer MEDICAID, OTHER, SELFPAY ==
[2018-03-05 12:09] VITALS: TEMP 37
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
[2018-03-05 12:29] VITALS: TEMP 37; BMI 84.6
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
[2018-03-05] MEDS: ACETAMINOPHEN 325 MG TABLET 650 MG PO (13:00)
[2018-03-05] MEDS: diazePAM 5 MG TABLET 10 MG PO (13:01)
[2018-03-05 14:08] VITALS: BP 116/80; PULSE 68; RESP 19; O2SAT 98
== END 2018-03-05 14:12 | disposition home or self-care (01) ==
PROVIDERS: Emergency Provider Nurse Practitioner Family
DX: S39.012A Strain of muscle, fascia and tendon of lower back, initial encounter (principal); W07.XXXA Fall from chair, initial encounter
CPT/HCPCS: 72100; 99282; 99283

== ENCOUNTER 2018-04-10 07:23 | Emergency (ER) | payer MEDICAID, OTHER, SELFPAY ==
[2018-04-10 07:56] VITALS: BP 126/59; PULSE 80; RESP 18; TEMP 36.8; O2SAT 92
--- NOTE | 2018-04-10 08:03 | DI.RAD.S_ITS ---
PROCEDURE: XR CHEST 1V INDICATIONS: sob TECHNIQUE: One view of the chest was acquired. COMPARISON: [facility], CHEST 1 VIEW, 11/26/2017, 18:18. [facility], CHEST 1 VIEW, 11/22/2017, 16:36. [facility], CHEST 1 VIEW, 11/19/2017, 15:41. [facility], CHEST 1 VIEW, 12/29/2017, 12:33. FINDINGS: Surgical changes and devices: None. Lungs and pleura: Diffuse appearance of increased pulmonary vascularity. Trace blunting of the left costophrenic angle. Mediastinum: Mediastinal contours appear normal. Heart size is borderline enlarged. Bones and chest wall: No suspicious bony lesions. Overlying soft tissues appear unremarkable. IMPRESSION: Borderline cardiomegaly with increased vascularity and trace left effusion suggestive of edema. Similar appearance is noted on prior examinations. Dictated by: Lupe Fuentes M.D. on 04/10/2018 at 8:43 Approved by: Lupe Fuentes M.D. on 04/10/2018 at 8:44
--- NOTE | 2018-04-10 08:12 | ED.ASTHMA ---
HPI - Asthma General Chief Complaint: Asthma Stated Complaint: asthma is acting up, boil on right hip Time Seen by Provider: 04/10/18 07:34 History of Present Illness HPI Narrative: HPI 37-year-old morbidly obese male with history of asthma, RAJESH, morbid obesity, anxiety presents for evaluation of a abscess on his right flank as well as gradually worsening asthma with shortness breath. Patient denies recent cough, fevers, chills, notes that he is just had mildly worsened shortness of breath with increased wheezing that has been less responsiveness to his home nebulizers. Patient currently without a PCP, states that he has adequate albuterol home. Patient notes several days of right flank focal cutaneous tenderness and induration is concerned he may have an abscess. No history of DVT or PE. M/S/F/SocHx notable for: please see HPI; remainder reviewed with patient and in chart. ROS: Negative constitutional, eye, cardiovascular, pulmonary, GI, , MSK, skin, neurologic, psychiatric, endocrine unless noted in the HPI. Exam HR 80, BP 126/59, RR 18, T 98.3 ?F, SaO2 92 % on room air; at 7:56 AM. Gen: Pleasant, non-toxic appearing, resting comfortably. HEENT: NC, AT, PEERL, EOMI. Resp: diffuse fine extra wheezing throughout all lung wade, minimally increased work of breathing, no accessory muscle usage, otherwise clear to auscultation bilaterally. Card: Regular rate and rhythm with no murmurs, rubs, or gallops, extremities warm and well perfused. GI: Non-tender to palpation throughout all quadrants, no focal tenderness at McBurney's point, negative Leyva's sign, non-distended, no rebound or guarding. : No suprapubic tenderness to palpation. MSK: No visible deformities, strength and tone without visually appreciable deficit. Skin: right mid flank with an approximately 5 cm in diameter area of induration, minimal erythema, and tenderness. No palpable fluctuance or crepitus. Neuro: AO x 3, no facial asymmetry, vision and hearing WNL. Psych: Mood and affect appropriate. Labs / Imaging: CXR: Borderline cardiomegaly with increased vascularity and trace left effusion suggestive of edema. Similar appearance is noted on prior examinations. Focused Soft Tissue Ultrasound Procedure: Limited evaluation of the right lateral flank. Indication: Evaluation for abscesses and foreign bodies. Views obtained: sagittal and transverse. Findings: subcutaneous cobblestoning, small focal fluid collection as below. MDM Previous chart, nursing note, labs, imaging, and vitals reviewed. A: 37-year-old morbidly obese male with history of asthma, RAJESH, morbid obesity, anxiety presents for evaluation of a abscess on his right flank as well as gradually worsening asthma with shortness breath. Evaluation: patient is a morbidly obese male with poorly controlled asthma, history and exam are consistent with an uncomplicated presentation of a mild asthma exacerbation. Patient with prior negative evaluation for PE and no further identifiable risk factors; as such doubt. Chest x-ray without evidence of pneumonia, history and exam without further reason to suspect radio occultinfection. Patient given dexamethasone and DuoNeb ?2. Improved symptoms. Discharged with RX for cephalexin and doxycycline for treatment of his right flank phlegmon and small abscess that is not presently amenable to drainage. Patient instructed to follow up with a PCP in 2 days for repeat evaluation. Impression: phlegmon, asthma exacerbation (please reference below for remainder of encounter information) Related Data Home Medications Medication Instructions Recorded Confirmed methadone 95 mg PO QDAY #0 05/07/17 03/02/18 albuterol sulfate 3 ml INH Q4HP PRN 01/28/18 03/02/18 prednisone 10 mg PO BID 01/28/18 03/02/18 albuterol sulfate [Ventolin HFA] 2 - 4 puff INH SEE INSTRUCTIONS PRN 02/04/18 03/02/18 Previous Rx's Medication Instructions Recorded fluticasone-salmeterol [Advair 1 puff INH BID #2 inh 04/28/17 Diskus] doxycycline hyclate 100 mg PO Q12H #14 tab 02/26/18 cyclobenzaprine 10 mg PO TID PRN #12 tab 03/05/18 Allergies Allergy/AdvReac Type Severity Reaction Status Date / Time NSAIDS (Non-Steroidal Allergy Unknown ASTHMA Verified 03/02/18 10:02 Anti-Inflamma FLARE UPS [NSAIDS (NON-STEROIDAL ANTI-INFLAMMA] ibuprofen AdvReac Mild nausea, GI Verified 03/02/18 10:02 upset Exam Initial Vital Signs Initial Vital Signs: Vital Signs Temperature 98.3 F 04/10/18 07:56 Pulse Rate 80 04/10/18 07:56 Respiratory Rate 18 04/10/18 07:56 Blood Pressure 126/59 H 04/10/18 07:56 Pulse Oximetry 92 04/10/18 07:56 PFSH Social History Smoking Status: Never smoker Course Orders Ordered: ED Orders 04/10/18 08:03 XR chest 1V Stat Discontinued Medications Albuterol/Ipratropium (Duoneb) 6 ml INH NOW ONE Stop: 04/10/18 08:04 Last Admin: 04/10/18 08:30 Dose: 6 ml Dexamethasone (Decadron) 16 mg PO NOW ONE Stop: 04/10/18 08:04 Last Admin: 04/10/18 08:13 Dose: 16 mg Vital Signs - 8 hr 04/10/18 07:56 Temperature 98.3 F Pulse Rate 80 Respiratory Rate 18 Blood Pressure 126/59 H Pulse Oximetry 92 Discharge Plan Departure Prescriptions: No Action fluticasone-salmeterol [Advair Diskus] 500 MCG/50 MCG blister with device 1 puff INH BID Qty: 2 RF: 5 methadone 10 MG tablet 95 mg PO QDAY Qty: 0 RF: 0 prednisone 10 MG tablet 10 mg PO BID RF: 0 albuterol sulfate 2.5 MG/3 ML solution for nebulization 3 ml INH Q4HP PRN (Reason: Wheezing) RF: 0 albuterol sulfate [Ventolin HFA] 90 MCG/PUFF HFA aerosol inhaler 2 - 4 puff INH SEE INSTRUCTIONS PRN (Reason: Wheezing) RF: 0 doxycycline hyclate 100 mg tablet 100 mg PO Q12H Qty: 14 RF: 0 cyclobenzaprine 10 mg tablet 10 mg PO TID PRN (Reason: muscle spasm) Qty: 12 RF: 0
[2018-04-10] MEDS: DEXAMETHASONE 4 MG TABLET 16 MG PO (08:13)
[2018-04-10] MEDS: ALBUTEROL/IPRATROPIUM 3 ML AMPUL 6 ML INH (08:30)
[2018-04-10 08:41] VITALS: PULSE 91; RESP 16
[2018-04-10 09:07] VITALS: BP 115/54; PULSE 107; RESP 22; O2SAT 88
== END 2018-04-10 09:05 | disposition home or self-care (01) ==
PROVIDERS: Emergency Provider Emergency Medicine
DX: L02.91 Cutaneous abscess, unspecified (principal); J45.909 Unspecified asthma, uncomplicated
CPT/HCPCS: 71045; 94150; 94640; 99282; 99283

== ENCOUNTER 2018-04-24 14:52 | Emergency (ER) | payer MEDICAID, SELFPAY ==
[2018-04-24 14:59] VITALS: BP 134/62; PULSE 93; RESP 24; TEMP 36.6; O2SAT 93
[2018-04-24] MEDS: ALBUTEROL 2.5 MG/3 ML NEB (ADULT) INH (15:29)
[2018-04-24 15:32] VITALS: PULSE 82; RESP 22; O2SAT 98
--- NOTE | 2018-04-24 16:33 | DI.RAD.S_ITS ---
PROCEDURE: XR CHEST 1V INDICATIONS: asthama exacerbation - pna? TECHNIQUE: One view of the chest was acquired. COMPARISON: None. FINDINGS: Surgical changes and devices: None. Lungs and pleura: No pleural effusions or pneumothorax. Lungs are abnormal with a mild pulmonary edema pattern. Mediastinum: Mediastinal contours appear normal. Heart size is normal. Bones and chest wall: No suspicious bony lesions. Overlying soft tissues appear unremarkable. IMPRESSION: Generalized pulmonary edema pattern, without cardiomegaly. This may indicate presence of atypical pneumonia. Dictated by: Jesus Bueno M.D. on 04/24/2018 at 17:36 Approved by: Jesus Bueno M.D. on 04/24/2018 at 17:37
[2018-04-24] MEDS: DEXAMETHASONE 4 MG TABLET 16 MG PO (16:38)
[2018-04-24 18:05] VITALS: BP 121/59; PULSE 89; RESP 18; O2SAT 92
--- NOTE | 2018-04-24 18:10 | ED.ASTHMA ---
HPI - Asthma General Chief Complaint: Asthma Stated Complaint: ASTHMA History of Present Illness HPI Narrative: HPI 37-year-old morbidly obese male with asthma presents complaining of gradual worsening of his baseline asthma, denies fevers, chills, change in cough. M/S/F/SocHx notable for: please see HPI; remainder reviewed with patient and in chart. ROS: Negative constitutional, eye, cardiovascular, pulmonary, GI, , MSK, skin, neurologic, psychiatric, endocrine unless noted in the HPI. Exam Gen: Pleasant, non-toxic appearing, resting comfortably. HEENT: NC, AT, PEERL, EOMI. Resp: diffuse fine expiratory wheezing, otherwise normal work of breathing, no accessory muscle usage. Card: Regular rate and rhythm with no murmurs, rubs, or gallops, extremities warm and well perfused. GI: Non-tender to palpation throughout all quadrants, no focal tenderness at McBurney's point, negative Leyva's sign, non-distended, no rebound or guarding. : No suprapubic tenderness to palpation. MSK: No visible deformities, strength and tone without visually appreciable deficit. Skin: Normal color with no visible lesions. Neuro: AO x 3, no facial asymmetry, vision and hearing WNL. Psych: Mood and affect appropriate. Labs / Imaging: CXR: generalized pulmonary edema pattern, without cardiomegaly. This may indicate presence of atypical pneumonia. MDM Previous chart, nursing note, labs, imaging, and vitals reviewed. A: 37-year-old morbidly obese male with asthma presents complaining of gradual worsening of his baseline asthma, denies fevers, chills, change in cough. Evaluation: patient well-appearing, given DuoNeb by respiratory therapist with significant improvement in symptoms, p.o. dexamethasone given, amount of compliance with inhaler is uncertain as the patient's inhaler was found under a pectoral pannus type skinfold, the patient apparently lost track of where was located. This was returned to the patient. Chest x-ray possibly suggestive of atypical pneumonia, azithromycin prescribed, patient instructed to follow up with PCP. Also considered on the differential includes PE, pericardial effusion, pneumothorax, pleural effusion, ACS, and pulmonary embolism, these are felt to be effectively excluded given the history, exam, and consistency of this presentation with multiple prior presentations that have had extensive evaluations with respect to PE as well as ACS. Impression: asthma exacerbation (please reference below for remainder of encounter information) Related Data Home Medications Medication Instructions Recorded Confirmed methadone 95 mg PO QDAY #0 05/07/17 03/02/18 albuterol sulfate 3 ml INH Q4HP PRN 01/28/18 03/02/18 prednisone 10 mg PO BID 01/28/18 03/02/18 albuterol sulfate [Ventolin HFA] 2 - 4 puff INH SEE INSTRUCTIONS PRN 02/04/18 03/02/18 Previous Rx's Medication Instructions Recorded fluticasone-salmeterol [Advair 1 puff INH BID #2 inh 04/28/17 Diskus] doxycycline hyclate 100 mg PO Q12H #14 tab 02/26/18 cyclobenzaprine 10 mg PO TID PRN #12 tab 03/05/18 cephalexin 500 mg PO QID #40 cap 04/10/18 doxycycline hyclate 100 mg PO BID #20 tab 04/10/18 Allergies Allergy/AdvReac Type Severity Reaction Status Date / Time NSAIDS (Non-Steroidal Allergy Unknown ASTHMA Verified 04/10/18 08:53 Anti-Inflamma FLARE UPS [NSAIDS (NON-STEROIDAL ANTI-INFLAMMA] ibuprofen AdvReac Mild nausea, GI Verified 04/10/18 08:53 upset Exam Initial Vital Signs Initial Vital Signs: Vital Signs Temperature 97.9 F 04/24/18 14:59 Pulse Rate 93 H 04/24/18 14:59 Respiratory Rate 24 04/24/18 14:59 Blood Pressure 134/62 H 04/24/18 14:59 Pulse Oximetry 93 04/24/18 14:59 PFSH Social History Smoking Status: Never smoker Course Orders Ordered: ED Orders 04/24/18 16:33 XR chest 1V Stat Discontinued Medications Albuterol (Ventolin) 2.5 mg INH NOW ONE Stop: 04/24/18 15:29 Last Admin: 04/24/18 15:29 Dose: 2.5 mg Dexamethasone (Decadron) 16 mg PO NOW ONE Stop: 04/24/18 16:35 Last Admin: 04/24/18 16:38 Dose: 16 mg Vital Signs - 8 hr 04/24/18 14:59 04/24/18 15:32 04/24/18 18:05 Temperature 97.9 F Pulse Rate 93 H 82 89 Respiratory Rate 24 22 18 Blood Pressure 134/62 H Blood Pressure [Left Arm] 121/59 H Pulse Oximetry 93 98 92 Discharge Plan Departure Prescriptions: No Action fluticasone-salmeterol [Advair Diskus] 500 MCG/50 MCG blister with device 1 puff INH BID Qty: 2 RF: 5 methadone 10 MG tablet 95 mg PO QDAY Qty: 0 RF: 0 prednisone 10 MG tablet 10 mg PO BID RF: 0 albuterol sulfate 2.5 MG/3 ML solution for nebulization 3 ml INH Q4HP PRN (Reason: Wheezing) RF: 0 cephalexin 500 mg capsule 500 mg PO QID Qty: 40 RF: 0 doxycycline hyclate 100 mg tablet 100 mg PO BID Qty: 20 RF: 0 albuterol sulfate [Ventolin HFA] 90 MCG/PUFF HFA aerosol inhaler 2 - 4 puff INH SEE INSTRUCTIONS PRN (Reason: Wheezing) RF: 0 doxycycline hyclate 100 mg tablet 100 mg PO Q12H Qty: 14 RF: 0 cyclobenzaprine 10 mg tablet 10 mg PO TID PRN (Reason: muscle spasm) Qty: 12 RF: 0
== END 2018-04-24 18:19 | disposition home or self-care (01) ==
PROVIDERS: Emergency Provider Emergency Medicine; PCP Physician Assistant
DX: J45.901 Unspecified asthma with (acute) exacerbation (principal)
CPT/HCPCS: 71045; 94150; 94640; 99283; J7613

== ENCOUNTER 2018-05-08 10:13 | Emergency (ER) | payer MEDICAID, OTHER, SELFPAY ==
[2018-05-08 10:28] VITALS: BP 126/76; PULSE 82; RESP 18; O2SAT 94; BMI 82.7
--- NOTE | 2018-05-08 13:43 | ED.BACK ---
HPI - Back Pain/Injury <LIZBETH Malone - Last Filed: 05/08/18 21:26> General Chief Complaint: Back Pain/Injury Stated Complaint: Chronic pain Time Seen by Provider: 05/08/18 13:42 Source: patient Mode of arrival: ambulatory Limitations: no limitations History of Present Illness HPI Narrative: 37-year-old male morbidly obese with history of asthma and chronic pain here for complaint of feeling anxious today he also states that he has had some increased wheezing due to asthma. He denies any fevers or chills. No cough. Positive p.o. intake. He denies any chest pain. He does report that he takes methadone for his chronic pain. He does state that he left his asthma inhaler at home. He denies any other concerns or complaints at this time. Patient has chronic limited ability to ambulate due to his weight and chronic lower back pain he denies any loss of bladder or bowel control. He denies any recent trauma Related Data Home Medications Medication Instructions Recorded Confirmed methadone 95 mg PO QDAY #0 05/07/17 03/02/18 albuterol sulfate 3 ml INH Q4HP PRN 01/28/18 03/02/18 prednisone 10 mg PO BID 01/28/18 03/02/18 albuterol sulfate [Ventolin HFA] 2 - 4 puff INH SEE INSTRUCTIONS PRN 02/04/18 03/02/18 Previous Rx's Medication Instructions Recorded fluticasone-salmeterol [Advair 1 puff INH BID #2 inh 04/28/17 Diskus] doxycycline hyclate 100 mg PO Q12H #14 tab 02/26/18 cyclobenzaprine 10 mg PO TID PRN #12 tab 03/05/18 cephalexin 500 mg PO QID #40 cap 04/10/18 doxycycline hyclate 100 mg PO BID #20 tab 04/10/18 doxycycline hyclate 100 mg PO BID #20 tab 04/24/18 olanzapine 5 mg PO DAILY 2 Days #2 tab 05/08/18 prednisone 40 mg PO DAILY #6 tab 05/08/18 Allergies Allergy/AdvReac Type Severity Reaction Status Date / Time NSAIDS (Non-Steroidal Allergy Unknown ASTHMA Verified 05/08/18 10:32 Anti-Inflamma FLARE UPS [NSAIDS (NON-STEROIDAL ANTI-INFLAMMA] ibuprofen AdvReac Mild nausea, GI Verified 05/08/18 10:32 upset Review of Systems <LIZBETH Malone - Last Filed: 05/08/18 21:26> Eyes Denies change in vision, Denies eye discharge, Denies irritation and Denies loss of vision ENT Ears, Nose, Mouth, and Throat: Denies change in voice, Denies neck pain and Denies sore throat Cardiovascular Denies chest pain, Denies irregular heart rhythm, Denies lightheadedness, Denies palpitations and Denies orthopnea Respiratory Reports wheezing Gastrointestinal Gastrointestinal: Denies abdominal pain, Denies change in bowel habits, Denies diarrhea, Denies nausea and Denies vomiting Genitourinary Denies hematuria, Denies flank pain, Denies urinary incontinence and Denies urinary urgency Musculoskeletal Denies neck pain Integumentary/Breasts Denies pruritus, Denies erythema, Denies rash and Denies wounds Neurologic Denies loss of vision Psychiatric Reports anxiety Endocrine Denies palpitations Allergic/Immunologic Reports wheezing Exam <LIZBETH Malone - Last Filed: 05/08/18 21:26> Initial Vital Signs Initial Vital Signs: Vital Signs Pulse Rate 82 05/08/18 10:28 Respiratory Rate 18 05/08/18 10:28 Blood Pressure 126/76 H 05/08/18 10:28 Pulse Oximetry 94 05/08/18 10:28 Const General: cooperative and well developed Nutritional Appearance: well nourished Orientation: alert, awake, oriented x3 and not confused [facility] Mouth: oral mucosae normal and moist mucous membranes Eyes Conjunctivae: conjunctivae normal Sclera: sclerae normal Pupils: PERRL EOM: EOM intact bilaterally Resp Effort & Inspection: normal respiratory effort, able to speak in complete sentences, no respiratory distress and no use of accessory muscles Auscultation: no rales, no rhonchi and wheezes inspiratory wheezes and upper bilaterally Cardio Rate: regular rate Rhythm: regular rhythm Heart Sounds: no click, no gallops, no murmurs and no rubs Pulses: normal peripheral pulses GI Inspection: non-distended Palpation: soft, no hepatosplenomegaly, No guarding, No pulsatile mass and No tender Auscultation: normal bowel sounds Skin General: no rashes or lesions noted, No jaundice and No petechiae Neuro General: alert, oriented x3, gait normal and no focal motor deficits Speech: speech normal Psych Appearance: well kempt Mental Status: mental status grossly normal Attitude: cooperative Thought Content: normal and suicidality Judgment: judgment good <Sergio Peña MD - Last Filed: 05/09/18 08:41> Initial Vital Signs Initial Vital Signs: Vital Signs Pulse Rate 82 05/08/18 10:28 Respiratory Rate 18 05/08/18 10:28 Blood Pressure 126/76 H 05/08/18 10:28 Pulse Oximetry 94 05/08/18 10:28 Scores <LIZBETH Malone - Last Filed: 05/08/18 21:26> PERC Score Age greater than or equal to 50 years: No Heart rate greater than or equal to 100 bpm: No Room Air O2 Sat less than 95%: No Unilateral leg swelling: No Recent trauma or surgery: No Hemoptysis: No Prior PE or DVT: No Hormone Use: No Total PERC Score: 0 Course <LIZBETH Malone - Last Filed: 05/08/18 21:26> Orders Ordered: Discontinued Medications Albuterol (Ventolin) 2.5 mg INH NOW ONE Stop: 05/08/18 14:37 Last Admin: 05/08/18 14:38 Dose: 2.5 mg Albuterol/Ipratropium (Duoneb) 3 ml INH NOW ONE Stop: 05/08/18 13:54 Last Admin: 05/08/18 13:57 Dose: 3 ml Lorazepam (Ativan) 1 mg PO NOW ONE Stop: 05/08/18 13:54 Last Admin: 05/08/18 14:24 Dose: Olanzapine (Zyprexa Zydis) 10 mg PO NOW ONE Stop: 05/08/18 14:07 Last Admin: 05/08/18 14:16 Dose: 10 mg Prednisone (Deltasone) 40 mg PO NOW ONE Stop: 05/08/18 14:09 Last Admin: 05/08/18 14:17 Dose: 40 mg Vital Signs - 8 hr 05/08/18 14:12 05/08/18 14:48 05/08/18 16:12 Pulse Rate 82 88 84 Respiratory Rate 18 16 16 Blood Pressure 130/82 H Pulse Oximetry 95 97 <Sergio Peña MD - Last Filed: 05/09/18 08:41> Orders Ordered: Discontinued Medications Albuterol (Ventolin) 2.5 mg INH NOW ONE Stop: 05/08/18 14:37 Last Admin: 05/08/18 14:38 Dose: 2.5 mg Albuterol/Ipratropium (Duoneb) 3 ml INH NOW ONE Stop: 05/08/18 13:54 Last Admin: 05/08/18 13:57 Dose: 3 ml Lorazepam (Ativan) 1 mg PO NOW ONE Stop: 05/08/18 13:54 Last Admin: 05/08/18 14:24 Dose: Olanzapine (Zyprexa Zydis) 10 mg PO NOW ONE Stop: 05/08/18 14:07 Last Admin: 05/08/18 14:16 Dose: 10 mg Prednisone (Deltasone) 40 mg PO NOW ONE Stop: 05/08/18 14:09 Last Admin: 05/08/18 14:17 Dose: 40 mg Vital Signs - 8 hr 05/08/18 14:12 05/08/18 14:48 05/08/18 16:12 Pulse Rate 82 88 84 Respiratory Rate 18 16 16 Blood Pressure 130/82 H Pulse Oximetry 95 97 MDM - Back Pain/Injury <LIZBETH Malone - Last Filed: 05/08/18 21:26> Lab Data Result diagrams: 05/08/18 14:50 05/08/18 14:50 Lab Results 05/08/18 05/08/18 Range/Units 14:50 14:50 WBC 8.4 (4.5-11.0) X10^3/uL RBC 4.42 L (4.5-5.9) X10^6/uL Hgb 11.3 L (13.5-17.5) g/dL Hct 34.9 L (41-53) % MCV 78.8 L (80-100) fL MCH 25.5 L (26-34) PG MCHC 32.4 (30-36) % RDW 15.8 H (11.6-14.8) % Plt Count 239 (150-400) X10^3/uL Neut % (Auto) 70.6 (50-75) % Lymph % (Auto) 17.7 L (25-40) % Morrison % (Auto) 7.2 (3-14) % Eos % (Auto) 3.1 (2-4) % Baso % (Auto) 1.4 (0-2) % Neut # (Auto) 6000 H (2681-9582) /uL Sodium 141 (137-145) mmol/L Potassium 4.0 (3.4-5.1) mmol/L Chloride 99 (98-107) mmol/L Carbon Dioxide 37 H (22-32) mmol/L BUN 9 (9-20) mg/dL Creatinine 0.60 L (0.66-1.25) mg/dL Estimated GFR > 60.0 (>60) mL/min BUN/Creatinine Ratio 15.0 (6-22) Glucose 100 (70-100) mg/dL Calcium 8.5 (8.4-10.2) mg/dL MDM Narrative Medical decision making narrative: Patient was given nebulizer treatments in the emergency room which reduced his wheezing and increased his peak flow numbers. He was given Zyprexa to help with his anxiety. Prednisone was given p.o. to for asthma exacerbation. Patient states he is feeling much better at this timeframe. Continue currently prescribed asthma medications as prescribed. A couple of Zyprexa tablets as prescribed for anxiety over the next couple of days and also short course of prednisone for asthma exacerbation. Follow up with primary care provider in the next day or 2. Return emergency room for any worsening symptoms. <Sergio Peña MD - Last Filed: 05/09/18 08:41> Lab Data Lab Results 05/08/18 05/08/18 Range/Units 14:50 14:50 WBC 8.4 (4.5-11.0) X10^3/uL RBC 4.42 L (4.5-5.9) X10^6/uL Hgb 11.3 L (13.5-17.5) g/dL Hct 34.9 L (41-53) % MCV 78.8 L (80-100) fL MCH 25.5 L (26-34) PG MCHC 32.4 (30-36) % RDW 15.8 H (11.6-14.8) % Plt Count 239 (150-400) X10^3/uL Neut % (Auto) 70.6 (50-75) % Lymph % (Auto) 17.7 L (25-40) % Morrison % (Auto) 7.2 (3-14) % Eos % (Auto) 3.1 (2-4) % Baso % (Auto) 1.4 (0-2) % Neut # (Auto) 6000 H (1236-5791) /uL Sodium 141 (137-145) mmol/L Potassium 4.0 (3.4-5.1) mmol/L Chloride 99 (98-107) mmol/L Carbon Dioxide 37 H (22-32) mmol/L BUN 9 (9-20) mg/dL Creatinine 0.60 L (0.66-1.25) mg/dL Estimated GFR > 60.0 (>60) mL/min BUN/Creatinine Ratio 15.0 (6-22) Glucose 100 (70-100) mg/dL Calcium 8.5 (8.4-10.2) mg/dL Discharge Plan Departure Patient Disposition: Home Clinical Impression: Asthma exacerbation, Anxiousness Discharge Date/Time: 05/08/18 16:13 Interventions: ED Discharge Assessment Last Done: 05/08/18 16:12 Instructions: Asthma -- Adult Activity Restrictions/Additional Instructions: Signs and symptoms of UR wheezing appears to be an asthma exacerbation. You were given nebulized treatment in the emergency room which helped with your breathing effort. Laboratory results and chest x-ray were unremarkable. Zyprexa was given to help with anxiousness. Use currently prescribed asthma medications as prescribed. Prednisone as prescribed for the next few days to help with asthma exacerbation use as directed. Sinus pressure a is prescribed a couple of days to help with any anxiousness. Follow up with her primary care provider in the next day or 2 for re-evaluation. For any worsening symptoms return to the emergency room. Prescriptions: New prednisone 20 mg tablet 40 mg PO DAILY Qty: 6 RF: 0 olanzapine 5 mg tablet 5 mg PO DAILY 2 Days Qty: 2 RF: 0 No Action fluticasone-salmeterol [Advair Diskus] 500 MCG/50 MCG blister with device 1 puff INH BID Qty: 2 RF: 5 methadone 10 MG tablet 95 mg PO QDAY Qty: 0 RF: 0 prednisone 10 MG tablet 10 mg PO BID RF: 0 albuterol sulfate 2.5 MG/3 ML solution for nebulization 3 ml INH Q4HP PRN (Reason: Wheezing) RF: 0 cephalexin 500 mg capsule 500 mg PO QID Qty: 40 RF: 0 doxycycline hyclate 100 mg tablet 100 mg PO BID Qty: 20 RF: 0 albuterol sulfate [Ventolin HFA] 90 MCG/PUFF HFA aerosol inhaler 2 - 4 puff INH SEE INSTRUCTIONS PRN (Reason: Wheezing) RF: 0 doxycycline hyclate 100 mg tablet 100 mg PO Q12H Qty: 14 RF: 0 cyclobenzaprine 10 mg tablet 10 mg PO TID PRN (Reason: muscle spasm) Qty: 12 RF: 0 doxycycline hyclate 100 mg tablet 100 mg PO BID Qty: 20 RF: 0 Referrals: Gabe Meraz PA-C [Primary Care Provider] - <Sergio Peña MD - Last Filed: 05/09/18 08:41> Sign Out Provider Sign Out Attestation: The PA/[employer] functioned independently for the care of this pt, I was available, but not asked to participate in care. I am unable to determine appropriateness of management without personally examining the pt.
--- NOTE | 2018-05-08 13:53 | DI.RAD.S_ITS ---
PROCEDURE: XR CHEST 1V INDICATIONS: Asthma exacerbation TECHNIQUE: One view of the chest was acquired. COMPARISON: [facility], CR, XR CHEST 1V, 04/24/2018, 16:54. FINDINGS: Surgical changes and devices: None. Lungs and pleura: No pleural effusions or pneumothorax. There is pulmonary vascular prominence suggestive of mild edema. No focal consolidation. Mediastinum: Mediastinal contours appear unchanged. Heart size is enlarged. Bones and chest wall: No suspicious bony lesions. Overlying soft tissues appear unremarkable. IMPRESSION: 1. Mild pulmonary edema redemonstrated. Dictated by: Darryl De Anda M.D. on 05/08/2018 at 14:58 Approved by: Darryl De Anda M.D. on 05/08/2018 at 14:59
[2018-05-08] MEDS: ALBUTEROL/IPRATROPIUM 3 ML AMPUL INH (13:57)
--- NOTE | 2018-05-08 13:58 | PC.NURSE ---
pt c/o generalized body pain, denies injury. States he just feels anxious.
[2018-05-08 14:12] VITALS: PULSE 82; RESP 18
[2018-05-08] MEDS: OLANZapine ODT 10 MG TAB PO (14:16)
[2018-05-08] MEDS: predniSONE 20 MG TABLET 40 MG PO (14:17)
[2018-05-08] MEDS: ALBUTEROL 2.5 MG/3 ML NEB (ADULT) INH (14:38)
[2018-05-08 14:48] VITALS: PULSE 88; RESP 16; O2SAT 95
[2018-05-08 15:06] LABS: Add Manual Diff / Slide Review NO; Basophils Percent Auto 1.4 % (0-2); Eosinophils Percent Auto 3.1 % (2-4); Hematocrit 34.9 % (41-53); Hemoglobin 11.3 g/dL (13.5-17.5); Lymphocytes Percent Auto 17.7 % (25-40); Mean Corpuscular HGB Conc 32.4 % (30-36); Mean Corpuscular Hemoglobin 25.5 PG (26-34); Mean Corpuscular Volume 78.8 fL (80-100); Monocytes Percent Auto 7.2 % (3-14); Neutrophils Absolute Auto 6000 /uL (3000-5900); Neutrophils Percent Auto 70.6 % (50-75); Platelet Count 239 X10^3/uL (150-400); Red Blood Cell Count 4.42 X10^6/uL (4.5-5.9); Red Cell Distribution Width 15.8 % (11.6-14.8); White Blood Cell Count 8.4 X10^3/uL (4.5-11.0)
[2018-05-08 15:16] LABS: Blood Urea Nitrogen 9 mg/dL (9-20); Calcium 8.5 mg/dL (8.4-10.2); Carbon Dioxide 37 mmol/L (22-32); Chloride 99 mmol/L (98-107); Estimated Glomerular Filt Rate > 60.0 mL/min (>60); Glucose 100 mg/dL (70-100); HEMOLYSIS < 15 (0-50); Sodium 141 mmol/L (137-145)
[2018-05-08 16:12] VITALS: BP 130/82; PULSE 84; RESP 16; O2SAT 97
== END 2018-05-08 16:13 | disposition home or self-care (01) ==
PROVIDERS: Emergency Provider Nurse Practitioner Family; Family Provider Physician Assistant; PCP Physician Assistant
DX: J45.909 Unspecified asthma, uncomplicated (principal)
CPT/HCPCS: 36415; 71045; 80048; 81003; 85025; 94150; 94640; 99282; 99283; J7613

== ENCOUNTER 2018-06-12 18:15 | Emergency (ER) | payer MEDICAID, OTHER, SELFPAY ==
[2018-06-12 18:23] VITALS: BP 135/75; PULSE 92; RESP 25; TEMP 37.2; O2SAT 93; BMI 81.5
--- NOTE | 2018-06-12 20:53 | ED.CHESTPAIN ---
HPI - Chest Pain <Concepcion Worthy, SCALE MANAGER-BC - Last Filed: 06/12/18 22:28> General Chief Complaint: Chest Pain Stated Complaint: ANXIETY AND CHEST PAIN Time Seen by Provider: 06/12/18 20:44 Source: patient and family Mode of arrival: ambulatory Limitations: no limitations History of Present Illness HPI narrative: Patient presents with chief complaint of anxiety. He states he has been out of his Zyprexa for a few days when he normally takes 10 mg of Zyprexa at night. He states he feels like he is going to crawl out of his skin. He does complain of some transient chest pain, which she states happens with his anxiety attacks. He states he went to get his refills of his Zyprexa, but his pharmacy will not fill them until tomorrow. He denies any shortness of breath and states his asthma is doing really well at this point time. He denies any fevers, cough, congestion, palpitations or fluttering of his heart. Patient denies current chest pain. Related Data Home Medications Medication Instructions Recorded Confirmed methadone 95 mg PO QDAY #0 05/07/17 03/02/18 albuterol sulfate 3 ml INH Q4HP PRN 01/28/18 03/02/18 prednisone 10 mg PO BID 01/28/18 03/02/18 albuterol sulfate [Ventolin HFA] 2 - 4 puff INH SEE INSTRUCTIONS PRN 02/04/18 03/02/18 Previous Rx's Medication Instructions Recorded fluticasone-salmeterol [Advair 1 puff INH BID #2 inh 04/28/17 Diskus] doxycycline hyclate 100 mg PO Q12H #14 tab 02/26/18 cyclobenzaprine 10 mg PO TID PRN #12 tab 03/05/18 cephalexin 500 mg PO QID #40 cap 04/10/18 doxycycline hyclate 100 mg PO BID #20 tab 04/10/18 doxycycline hyclate 100 mg PO BID #20 tab 04/24/18 prednisone 40 mg PO DAILY #6 tab 05/08/18 Allergies Allergy/AdvReac Type Severity Reaction Status Date / Time NSAIDS (Non-Steroidal Allergy Unknown ASTHMA Verified 05/08/18 10:32 Anti-Inflamma FLARE UPS [NSAIDS (NON-STEROIDAL ANTI-INFLAMMA] ibuprofen AdvReac Mild nausea, GI Verified 05/08/18 10:32 upset Review of Systems <DELVIS MesserP- - Last Filed: 06/12/18 22:28> Review of Systems GENERAL: Denies chills, fatigue, malaise, fever, sweats. HEENT: Denies sinus pain, ear pain, sore throat, difficulty swallowing, dizziness. RESPIRATORY: See HPI CARDIOVASCULAR: Denies chest pain, palpitations, orthopnea, edema, GASTROINTESTINAL: Denies nausea, vomiting, abdominal pain, diarrhea, constipation, melena. : Denies dysuria, frequency, incontinence, hematuria, urinary retention. MUSCULOSKELETAL: denies weakness, joint pain, or bony pain SKIN: Denies rash, skin lesions, or other NEUROLOGIC: Denies weakness, headache, numbness, change in speech, confusion, seizures, incoordination. PSYCHIATRIC: See HPI 12 point review of systems is negative except for those stated above Exam <Concepcion Worthy SCALE MANAGER- - Last Filed: 06/12/18 22:28> Narrative Exam Narrative: GENERAL: Obese gentleman sitting in wheelchair. HEAD: Atraumatic. Normocephalic. No temporal or scalp tenderness. EYES: Pupils equal round and reactive. Extraocular motions intact. No scleral icterus. No injection or drainage. ENT: Nose without bleeding, purulent drainage or septal hematoma. Throat without erythema, tonsillar hypertrophy or exudate. Uvula midline. Airway patent. NECK: Trachea midline. No JVD or lymphadenopathy. Supple, nontender, no meningeal signs. CARDIOVASCULAR: Regular rate and rhythm RESPIRATORY: Wheezy to to auscultation. Breath sounds equal bilaterally. No wheezes, rales, or rhonchi. No increased respiratory effort. No accessory muscle use. No cough in exam room. GASTROINTESTINAL: Abdomen soft, non-tender, nondistended. No hepato-splenomegaly, or palpable masses. No guarding. EXTREMITIES: No clubbing, cyanosis, or edema. No joint tenderness, effusion, or edema noted. BACK: Nontender without deformity or crepitance. No flank tenderness. NEURO: AOx3. SKIN: No rash or erythema. Initial Vital Signs Initial Vital Signs: Vital Signs Temperature 99 F 06/12/18 18:23 Pulse Rate 92 H 06/12/18 18:23 Respiratory Rate 25 H 06/12/18 18:23 Blood Pressure 135/75 06/12/18 18:23 Pulse Oximetry 93 06/12/18 18:23 <DO Shanna Ryan Last Filed: 06/13/18 06:30> Initial Vital Signs Initial Vital Signs: Vital Signs Temperature 99 F 06/12/18 18:23 Pulse Rate 92 H 06/12/18 18:23 Respiratory Rate 25 H 06/12/18 18:23 Blood Pressure 135/75 06/12/18 18:23 Pulse Oximetry 93 06/12/18 18:23 Course <ANTONETTE Messer - Last Filed: 06/12/18 22:28> Orders Ordered: Discontinued Medications Lorazepam (Ativan) 1 mg PO NOW ONE Stop: 06/12/18 21:42 Last Admin: 06/12/18 21:58 Dose: 1 mg Olanzapine (Zyprexa Zydis) 10 mg PO NOW ONE Stop: 06/12/18 20:54 Last Admin: 06/12/18 20:58 Dose: 10 mg Vital Signs - 8 hr 06/12/18 22:50 Pulse Rate 89 Respiratory Rate 18 Blood Pressure 140/69 Pulse Oximetry 95 <Erica Funez DO - Last Filed: 06/13/18 06:30> Orders Ordered: Discontinued Medications Lorazepam (Ativan) 1 mg PO NOW ONE Stop: 06/12/18 21:42 Last Admin: 06/12/18 21:58 Dose: 1 mg Olanzapine (Zyprexa Zydis) 10 mg PO NOW ONE Stop: 06/12/18 20:54 Last Admin: 06/12/18 20:58 Dose: 10 mg Vital Signs - 8 hr 06/12/18 22:50 Pulse Rate 89 Respiratory Rate 18 Blood Pressure 140/69 Pulse Oximetry 95 MDM - Chest Pain <ANTONETTE Messer - Last Filed: 06/12/18 22:28> Lab Data Attestation: I reviewed the patient's lab results. Result diagrams: 06/12/18 21:01 06/12/18 21:01 Lab Results 06/12/18 06/12/18 06/12/18 Range/Units 21:01 21:01 21:01 WBC 7.8 (4.5-11.0) X10^3/uL RBC 4.60 (4.5-5.9) X10^6/uL Hgb 11.7 L (13.5-17.5) g/dL Hct 36.1 L (41-53) % MCV 78.5 L (80-100) fL MCH 25.5 L (26-34) PG MCHC 32.4 (30-36) % RDW 16.0 H (11.6-14.8) % Plt Count 135 L (150-400) X10^3/uL Neut % (Auto) 73.5 (50-75) % Lymph % (Auto) 18.9 L (25-40) % [place] % (Auto) 7.5 (3-14) % Eos % (Auto) 0.0 L (2-4) % Baso % (Auto) 0.1 (0-2) % Neut # (Auto) 5800 (3773-2630) /uL PT 14.4 H (10.1-12.7) SECONDS INR 1.3 (0.9-1.3) Sodium 145 (137-145) mmol/L Potassium 3.8 (3.4-5.1) mmol/L Chloride 102 (98-107) mmol/L Carbon Dioxide 36 H (22-32) mmol/L BUN 9 (9-20) mg/dL Creatinine 0.60 L (0.66-1.25) mg/dL Estimated GFR > 60.0 (>60) mL/min BUN/Creatinine Ratio 15.0 (6-22) Glucose 101 H (70-100) mg/dL Calcium 8.4 (8.4-10.2) mg/dL Total Bilirubin 0.5 (0.2-1.3) mg/dL AST 20 (17-59) IU/L ALT 19 L (21-72) IU/L Alkaline Phosphatase 96 (38-126) U/L Total Creatine Kinase 60 (55-170) U/L Troponin I < 0.012 (0.01-0.034) ng/mL Total Protein 7.7 (6.3-8.2) g/dL Albumin 3.8 (3.5-5.0) g/dL Globulin 3.9 (1.7-4.1) g/dL Albumin/Globulin Ratio 1.0 (1.0-2.8) ECG Data Attestation: I personally reviewed and interpreted this ECG as follows: Interpretation: Sinus rhythm. Ventricular rate 92. No ectopy noted. No ST elevation or depression noted. MDM Narrative Medical decision making narrative: Patient presents with chief complaint of anxiety. Given his transient chest pressure, an EKG and basic lab work was done. These came back within normal limits. He was treated with Zyprexa in the emergency department given 1 mg p.o. Ativan. Patient stated relief after his medications. I discussed following up his primary care provider as well as refilling his medications as he discussed tomorrow. Patient questions or concerns upon discharge and states he feels much better. <Erica Funez, DO - Last Filed: 06/13/18 06:30> Lab Data Attestation: I reviewed the patient's lab results. Lab Results 06/12/18 06/12/18 06/12/18 Range/Units 21:01 21:01 21:01 WBC 7.8 (4.5-11.0) X10^3/uL RBC 4.60 (4.5-5.9) X10^6/uL Hgb 11.7 L (13.5-17.5) g/dL Hct 36.1 L (41-53) % MCV 78.5 L (80-100) fL MCH 25.5 L (26-34) PG MCHC 32.4 (30-36) % RDW 16.0 H (11.6-14.8) % Plt Count 135 L (150-400) X10^3/uL Neut % (Auto) 73.5 (50-75) % Lymph % (Auto) 18.9 L (25-40) % [place] % (Auto) 7.5 (3-14) % Eos % (Auto) 0.0 L (2-4) % Baso % (Auto) 0.1 (0-2) % Neut # (Auto) 5800 (2058-7223) /uL PT 14.4 H (10.1-12.7) SECONDS INR 1.3 (0.9-1.3) Sodium 145 (137-145) mmol/L Potassium 3.8 (3.4-5.1) mmol/L Chloride 102 (98-107) mmol/L Carbon Dioxide 36 H (22-32) mmol/L BUN 9 (9-20) mg/dL Creatinine 0.60 L (0.66-1.25) mg/dL Estimated GFR > 60.0 (>60) mL/min BUN/Creatinine Ratio 15.0 (6-22) Glucose 101 H (70-100) mg/dL Calcium 8.4 (8.4-10.2) mg/dL Total Bilirubin 0.5 (0.2-1.3) mg/dL AST 20 (17-59) IU/L ALT 19 L (21-72) IU/L Alkaline Phosphatase 96 (38-126) U/L Total Creatine Kinase 60 (55-170) U/L Troponin I < 0.012 (0.01-0.034) ng/mL Total Protein 7.7 (6.3-8.2) g/dL Albumin 3.8 (3.5-5.0) g/dL Globulin 3.9 (1.7-4.1) g/dL Albumin/Globulin Ratio 1.0 (1.0-2.8) ECG Data Attestation: I personally reviewed and interpreted this ECG as follows: Prior ECG tracings: available for review Interpretation: Normal sinus rhythm rate [address] changes no T-wave inversions NM interval 141 QRS 92 QTC 466 similar to previous EKG Discharge Plan Departure Patient Disposition: Home Clinical Impression: Anxiety, Chest pain Discharge Date/Time: 06/12/18 22:50 Interventions: ED Discharge Assessment Last Done: 06/12/18 22:50 Instructions: DI for Atypical Chest Pain, DI for Anxiety -- Adult Activity Restrictions/Additional Instructions: Here lab work came back pretty well today within your normal limits. Please follow-up with primary care provider. Please restart taking her Zyprexa and other medications as we discussed. Hopeful you can fill them at the pharmacy tomorrow as you plan on, if you cannot please follow-up with your primary care provider. Come back to the emergency department for any acute concerns of heart attack stroke or other emergent conditions Prescriptions: No Action fluticasone-salmeterol [Advair Diskus] 500 MCG/50 MCG blister with device 1 puff INH BID Qty: 2 RF: 5 methadone 10 MG tablet 95 mg PO QDAY Qty: 0 RF: 0 prednisone 10 MG tablet 10 mg PO BID RF: 0 albuterol sulfate 2.5 MG/3 ML solution for nebulization 3 ml INH Q4HP PRN (Reason: Wheezing) RF: 0 cephalexin 500 mg capsule 500 mg PO QID Qty: 40 RF: 0 doxycycline hyclate 100 mg tablet 100 mg PO BID Qty: 20 RF: 0 albuterol sulfate [Ventolin HFA] 90 MCG/PUFF HFA aerosol inhaler 2 - 4 puff INH SEE INSTRUCTIONS PRN (Reason: Wheezing) RF: 0 doxycycline hyclate 100 mg tablet 100 mg PO Q12H Qty: 14 RF: 0 cyclobenzaprine 10 mg tablet 10 mg PO TID PRN (Reason: muscle spasm) Qty: 12 RF: 0 doxycycline hyclate 100 mg tablet 100 mg PO BID Qty: 20 RF: 0 prednisone 20 mg tablet 40 mg PO DAILY Qty: 6 RF: 0 Referrals: Gabe Meraz PA-C [Primary Care Provider] - <Erica Funez DO - Last Filed: 06/13/18 06:30> Cosign ED Attending Edi Attestation: I was immediately available in the department for consultation. Documentation has been reviewed. I agree with assessment and plan.
[2018-06-12] MEDS: OLANZapine ODT 10 MG TAB PO (20:58)
[2018-06-12 21:13] LABS: Add Manual Diff / Slide Review NO; Basophils Percent Auto 0.1 % (0-2); Hematocrit 36.1 % (41-53); Hemoglobin 11.7 g/dL (13.5-17.5); Lymphocytes Percent Auto 18.9 % (25-40); Mean Corpuscular HGB Conc 32.4 % (30-36); Mean Corpuscular Hemoglobin 25.5 PG (26-34); Mean Corpuscular Volume 78.5 fL (80-100); Monocytes Percent Auto 7.5 % (3-14); Neutrophils Absolute Auto 5800 /uL (3000-5900); Neutrophils Percent Auto 73.5 % (50-75); Platelet Count 135 X10^3/uL (150-400); White Blood Cell Count 7.8 X10^3/uL (4.5-11.0)
[2018-06-12 21:18] LABS: INR 1.3 (0.9-1.3); Prothrombin Time 14.4 SECONDS (10.1-12.7)
[2018-06-12 21:22] LABS: Alanine Aminotransferase 19 IU/L (21-72); Albumin 3.8 g/dL (3.5-5.0); Alkaline Phosphatase 96 U/L (38-126); Aspartate Aminotransferase 20 IU/L (17-59); Bilirubin Total 0.5 mg/dL (0.2-1.3); Blood Urea Nitrogen 9 mg/dL (9-20); Calcium 8.4 mg/dL (8.4-10.2); Carbon Dioxide 36 mmol/L (22-32); Chloride 102 mmol/L (98-107); Creatine Kinase 60 U/L (55-170); Estimated Glomerular Filt Rate > 60.0 mL/min (>60); Globulin 3.9 g/dL (1.7-4.1); Glucose 101 mg/dL (70-100); HEMOLYSIS < 15 (0-50); Potassium 3.8 mmol/L (3.4-5.1); Sodium 145 mmol/L (137-145); Total Protein 7.7 g/dL (6.3-8.2)
[2018-06-12 21:34] LABS: Troponin I < 0.012 ng/mL (0.01-0.034)
[2018-06-12] MEDS: LORazepam 0.5 MG TABLET 1 MG PO (21:58)
--- NOTE | 2018-06-12 22:25 | ED_ITS ---
HPI - Chest Pain <Concepcion Worthy, YARN WEIGHT AND STRENGTH TESTER-BC - Last Filed: 06/12/18 22:28> General Chief Complaint: Chest Pain Stated Complaint: ANXIETY AND CHEST PAIN Time Seen by Provider: 06/12/18 20:44 Source: patient and family Mode of arrival: ambulatory Limitations: no limitations History of Present Illness HPI narrative: Patient presents with chief complaint of anxiety. He states he has been out of his Zyprexa for a few days when he normally takes 10 mg of Zyprexa at night. He states he feels like he is going to crawl out of his skin. He does complain of some transient chest pain, which she states happens with his anxiety attacks. He states he went to get his refills of his Zyprexa, but his pharmacy will not fill them until tomorrow. He denies any shortness of breath and states his asthma is doing really well at this point time. He denies any fevers, cough, congestion, palpitations or fluttering of his heart. Patient denies current chest pain. Related Data Home Medications Medication Instructions Recorded Confirmed methadone 95 mg PO QDAY #0 05/07/17 03/02/18 albuterol sulfate 3 ml INH Q4HP PRN 01/28/18 03/02/18 prednisone 10 mg PO BID 01/28/18 03/02/18 albuterol sulfate [Ventolin HFA] 2 - 4 puff INH SEE INSTRUCTIONS PRN 02/04/18 Previous Rx's Medication Instructions Recorded fluticasone-salmeterol [Advair 1 puff INH BID #2 inh 04/28/17 Diskus] doxycycline hyclate 100 mg PO Q12H #14 tab 02/26/18 cyclobenzaprine 10 mg PO TID PRN #12 tab 03/05/18 cephalexin 500 mg PO QID #40 cap 04/10/18 doxycycline hyclate 100 mg PO BID #20 tab 04/10/18 doxycycline hyclate 100 mg PO BID #20 tab 04/24/18 prednisone 40 mg PO DAILY #6 tab 05/08/18 Allergies Allergy/AdvReac Type Severity Reaction Status Date / Time NSAIDS (Non-Steroidal Allergy Unknown ASTHMA Verified 05/08/18 10:32 Anti-Inflamma FLARE UPS [NSAIDS (NON-STEROIDAL ANTI-INFLAMMA] ibuprofen AdvReac Mild nausea, GI Verified 05/08/18 10:32 upset Review of Systems <DELVIS MesserP- - Last Filed: 06/12/18 22:28> Review of Systems GENERAL: Denies chills, fatigue, malaise, fever, sweats. HEENT: Denies sinus pain, ear pain, sore throat, difficulty swallowing, dizziness. RESPIRATORY: See HPI CARDIOVASCULAR: Denies chest pain, palpitations, orthopnea, edema, GASTROINTESTINAL: Denies nausea, vomiting, abdominal pain, diarrhea, constipation, melena. : Denies dysuria, frequency, incontinence, hematuria, urinary retention. MUSCULOSKELETAL: denies weakness, joint pain, or bony pain SKIN: Denies rash, skin lesions, or other NEUROLOGIC: Denies weakness, headache, numbness, change in speech, confusion, seizures, incoordination. PSYCHIATRIC: See HPI 12 point review of systems is negative except for those stated above Exam <Concepcion Worthy YARN WEIGHT AND STRENGTH TESTER- - Last Filed: 06/12/18 22:28> Narrative Exam Narrative: GENERAL: Obese gentleman sitting in wheelchair. HEAD: Atraumatic. Normocephalic. No temporal or scalp tenderness. EYES: Pupils equal round and reactive. Extraocular motions intact. No scleral icterus. No injection or drainage. ENT: Nose without bleeding, purulent drainage or septal hematoma. Throat without erythema, tonsillar hypertrophy or exudate. Uvula midline. Airway patent. NECK: Trachea midline. No JVD or lymphadenopathy. Supple, nontender, no meningeal signs. CARDIOVASCULAR: Regular rate and rhythm RESPIRATORY: Wheezy to to auscultation. Breath sounds equal bilaterally. No wheezes, rales, or rhonchi. No increased respiratory effort. No accessory muscle use. No cough in exam room. GASTROINTESTINAL: Abdomen soft, non-tender, nondistended. No hepato-splenomegaly , or palpable masses. No guarding. EXTREMITIES: No clubbing, cyanosis, or edema. No joint tenderness, effusion, or edema noted. BACK: Nontender without deformity or crepitance. No flank tenderness. NEURO: AOx3. SKIN: No rash or erythema. Initial Vital Signs Initial Vital Signs: Vital Signs Temperature 99 F 06/12/18 18:23 Pulse Rate 92 H 06/12/18 18:23 Respiratory Rate 25 H 06/12/18 18:23 Blood Pressure 135/75 06/12/18 18:23 Pulse Oximetry 93 06/12/18 18:23 <DO Shanna Ryan Last Filed: 06/13/18 06:30> Initial Vital Signs Initial Vital Signs: Vital Signs Temperature 99 F 06/12/18 18:23 Pulse Rate 92 H 06/12/18 18:23 Respiratory Rate 25 H 06/12/18 18:23 Blood Pressure 135/75 06/12/18 18:23 Pulse Oximetry 93 06/12/18 18:23 Course <ANTONETTE Messer - Last Filed: 06/12/18 22:28> Orders Ordered: Discontinued Medications Lorazepam (Ativan) 1 mg PO NOW ONE Stop: 06/12/18 21:42 Last Admin: 06/12/18 21:58 Dose: 1 mg Olanzapine (Zyprexa Zydis) 10 mg PO NOW ONE Stop: 06/12/18 20:54 Last Admin: 06/12/18 20:58 Dose: 10 mg Vital Signs - 8 hr 06/12/18 22:50 Pulse Rate 89 Respiratory Rate 18 Blood Pressure 140/69 Pulse Oximetry 95 <Erica Funez DO - Last Filed: 06/13/18 06:30> Orders Ordered: Discontinued Medications Lorazepam (Ativan) 1 mg PO NOW ONE Stop: 06/12/18 21:42 Last Admin: 06/12/18 21:58 Dose: 1 mg Olanzapine (Zyprexa Zydis) 10 mg PO NOW ONE Stop: 06/12/18 20:54 Last Admin: 06/12/18 20:58 Dose: 10 mg Vital Signs - 8 hr 06/12/18 22:50 Pulse Rate 89 Respiratory Rate 18 Blood Pressure 140/69 Pulse Oximetry 95 MDM - Chest Pain <ANTONETTE Messer - Last Filed: 06/12/18 22:28> Lab Data Attestation: I reviewed the patient's lab results. Result diagrams: 06/12/18 21:01 06/12/18 21:01 Lab Results 06/12/18 06/12/18 06/12/18 Range/Units 21:01 21:01 21:01 WBC 7.8 (4.5-11.0) X10^3/uL RBC 4.60 (4.5-5.9) X10^6/uL Hgb 11.7 L (13.5-17.5) g/dL Hct 36.1 L (41-53) % MCV 78.5 L (80-100) fL MCH 25.5 L (26-34) PG MCHC 32.4 (30-36) % RDW 16.0 H (11.6-14.8) % Plt Count 135 L (150-400) X10^3/uL Neut % (Auto) 73.5 (50-75) % Lymph % (Auto) 18.9 L (25-40) % [place] % (Auto) 7.5 (3-14) % Eos % (Auto) 0.0 L (2-4) % Baso % (Auto) 0.1 (0-2) % Neut # (Auto) 5800 (0966-4432) /uL PT 14.4 H (10.1-12.7) SECONDS INR 1.3 (0.9-1.3) Sodium 145 (137-145) mmol/L Potassium 3.8 (3.4-5.1) mmol/L Chloride 102 (98-107) mmol/L Carbon Dioxide 36 H (22-32) mmol/L BUN 9 (9-20) mg/dL Creatinine 0.60 L (0.66-1.25) mg/dL Estimated GFR > 60.0 (>60) mL/min BUN/Creatinine Ratio 15.0 (6-22) Glucose 101 H (70-100) mg/dL Calcium 8.4 (8.4-10.2) mg/dL Total Bilirubin 0.5 (0.2-1.3) mg/dL AST 20 (17-59) IU/L ALT 19 L (21-72) IU/L Alkaline Phosphatase 96 (38-126) U/L Total Creatine Kinase 60 (55-170) U/L Troponin I < 0.012 (0.01-0.034) ng/mL Total Protein 7.7 (6.3-8.2) g/dL Albumin 3.8 (3.5-5.0) g/dL Globulin 3.9 (1.7-4.1) g/dL Albumin/Globulin Ratio 1.0 (1.0-2.8) ECG Data Attestation: I personally reviewed and interpreted this ECG as follows: Interpretation: Sinus rhythm. Ventricular rate 92. No ectopy noted. No ST elevation or depression noted. MDM Narrative Medical decision making narrative: Patient presents with chief complaint of anxiety. Given his transient chest pressure, an EKG and basic lab work was done. These came back within normal limits. He was treated with Zyprexa in the emergency department given 1 mg p.o. Ativan. Patient stated relief after his medications. I discussed following up his primary care provider as well as refilling his medications as he discussed tomorrow. Patient questions or concerns upon discharge and states he feels much better. <Erica Funez, DO - Last Filed: 06/13/18 06:30> Lab Data Attestation: I reviewed the patient's lab results. Lab Results 06/12/18 06/12/18 06/12/18 Range/Units 21:01 21:01 21:01 WBC 7.8 (4.5-11.0) X10^3/uL RBC 4.60 (4.5-5.9) X10^6/uL Hgb 11.7 L (13.5-17.5) g/dL Hct 36.1 L (41-53) % MCV 78.5 L (80-100) fL MCH 25.5 L (26-34) PG MCHC 32.4 (30-36) % RDW 16.0 H (11.6-14.8) % Plt Count 135 L (150-400) X10^3/uL Neut % (Auto) 73.5 (50-75) % Lymph % (Auto) 18.9 L (25-40) % [place] % (Auto) 7.5 (3-14) % Eos % (Auto) 0.0 L (2-4) % Baso % (Auto) 0.1 (0-2) % Neut # (Auto) 5800 (8007-4212) /uL PT 14.4 H (10.1-12.7) SECONDS INR 1.3 (0.9-1.3) Sodium 145 (137-145) mmol/L Potassium 3.8 (3.4-5.1) mmol/L Chloride 102 (98-107) mmol/L Carbon Dioxide 36 H (22-32) mmol/L BUN 9 (9-20) mg/dL Creatinine 0.60 L (0.66-1.25) mg/dL Estimated GFR > 60.0 (>60) mL/min BUN/Creatinine Ratio 15.0 (6-22) Glucose 101 H (70-100) mg/dL Calcium 8.4 (8.4-10.2) mg/dL Total Bilirubin 0.5 (0.2-1.3) mg/dL AST 20 (17-59) IU/L ALT 19 L (21-72) IU/L Alkaline Phosphatase 96 (38-126) U/L Total Creatine Kinase 60 (55-170) U/L Troponin I < 0.012 (0.01-0.034) ng/mL Total Protein 7.7 (6.3-8.2) g/dL Albumin 3.8 (3.5-5.0) g/dL Globulin 3.9 (1.7-4.1) g/dL Albumin/Globulin Ratio 1.0 (1.0-2.8) ECG Data Attestation: I personally reviewed and interpreted this ECG as follows: Prior ECG tracings: available for review Interpretation: Normal sinus rhythm rate [address] changes no T-wave inversions CT interval 141 QRS 92 QTC 466 similar to previous EKG Discharge Plan Departure Patient Disposition: Home Clinical Impression: Anxiety, Chest pain Discharge Date/Time: 06/12/18 22:50 Interventions: ED Discharge Assessment Last Done: 06/12/18 22:50 Instructions: DI for Atypical Chest Pain, DI for Anxiety -- Adult Activity Restrictions/Additional Instructions: Here lab work came back pretty well today within your normal limits. Please follow-up with primary care provider. Please restart taking her Zyprexa and other medications as we discussed. Hopeful you can fill them at the pharmacy tomorrow as you plan on, if you cannot please follow-up with your primary care provider. Come back to the emergency department for any acute concerns of heart attack stroke or other emergent conditions Prescriptions: No Action fluticasone-salmeterol [Advair Diskus] 500 MCG/50 MCG blister with device 1 puff INH BID Qty: 2 RF: 5 methadone 10 MG tablet 95 mg PO QDAY Qty: 0 RF: 0 prednisone 10 MG tablet 10 mg PO BID RF: 0 albuterol sulfate 2.5 MG/3 ML solution for nebulization 3 ml INH Q4HP PRN (Reason: Wheezing) RF: 0 cephalexin 500 mg capsule 500 mg PO QID Qty: 40 RF: 0 doxycycline hyclate 100 mg tablet 100 mg PO BID Qty: 20 RF: 0 albuterol sulfate [Ventolin HFA] 90 MCG/PUFF HFA aerosol inhaler 2 - 4 puff INH SEE INSTRUCTIONS PRN (Reason: Wheezing) RF: 0 doxycycline hyclate 100 mg tablet 100 mg PO Q12H Qty: 14 RF: 0 cyclobenzaprine 10 mg tablet 10 mg PO TID PRN (Reason: muscle spasm) Qty: 12 RF: 0 doxycycline hyclate 100 mg tablet 100 mg PO BID Qty: 20 RF: 0 prednisone 20 mg tablet 40 mg PO DAILY Qty: 6 RF: 0 Referrals: Gabe Meraz PA-C [Primary Care Provider] - <Erica Funez DO - Last Filed: 06/13/18 06:30> Cosign ED Attending Edi Attestation: I was immediately available in the department for consultation. Documentation has been reviewed. I agree with assessment and plan.
[2018-06-12 22:50] VITALS: BP 140/69; PULSE 89; RESP 18; O2SAT 95
== END 2018-06-12 22:50 | disposition home or self-care (01) ==
PROVIDERS: Emergency Provider Nurse Practitioner Family; Family Provider Physician Assistant; PCP Physician Assistant
DX: R07.9 Chest pain, unspecified (principal); F41.9 Anxiety disorder, unspecified
CPT/HCPCS: 36415; 80053; 82550; 82553; 84484; 85025; 85610; 93005; 99282; 99284

== ENCOUNTER 2018-06-24 08:29 | Emergency (ER) | payer MEDICAID, OTHER, SELFPAY ==
[2018-06-24 08:38] VITALS: BP 128/65; PULSE 98; RESP 22; TEMP 36.7; O2SAT 95; BMI 84.1
--- NOTE | 2018-06-24 08:43 | ED.ANXIETY ---
HPI - Anxiety General Chief Complaint: Chest Pain Stated Complaint: Chest hurts, legs tingling, anxiety Time Seen by Provider: 06/24/18 08:31 Source: patient and old records reviewed Mode of arrival: wheelchair Limitations: no limitations History of Present Illness HPI narrative: This is a 37-year-old male who comes to the emergency department with complaint of anxiety. Patient states that some he has been feeling more anxious since last night. He states he feels sort of tingly all over. He states that he has a little bit of chest pain occasionally. He denies shortness of breath. He does have asthma but denies any wheezing or difficulty breathing. He has felt slightly nauseated but not had any vomiting. He states he has not been eating anything today because of it. No GI or urinary symptoms. He states he started few spoke about a week ago and was prescribed by Dr. Meraz. He states that he was before and was given Zyprexa which he found helpful, he has an appointment to follow up in a week to see if that park that would be an appropriate choice for him. He states that he was told that the buspirone might not be helpful until about a week or 2 into treatment. He denies any other symptoms. Related Data Home Medications Medication Instructions Recorded Confirmed methadone 95 mg PO QDAY #0 05/07/17 03/02/18 albuterol sulfate 3 ml INH Q4HP PRN 01/28/18 03/02/18 prednisone 10 mg PO BID 01/28/18 03/02/18 albuterol sulfate [Ventolin HFA] 2 - 4 puff INH SEE INSTRUCTIONS PRN 02/04/18 03/02/18 Previous Rx's Medication Instructions Recorded fluticasone-salmeterol [Advair 1 puff INH BID #2 inh 04/28/17 Diskus] doxycycline hyclate 100 mg PO Q12H #14 tab 02/26/18 cyclobenzaprine 10 mg PO TID PRN #12 tab 03/05/18 cephalexin 500 mg PO QID #40 cap 04/10/18 doxycycline hyclate 100 mg PO BID #20 tab 04/10/18 doxycycline hyclate 100 mg PO BID #20 tab 04/24/18 prednisone 40 mg PO DAILY #6 tab 05/08/18 olanzapine [Zyprexa Zydis] 5 mg PO DAILY 10 Days #10 tab 06/24/18 Allergies Allergy/AdvReac Type Severity Reaction Status Date / Time NSAIDS (Non-Steroidal Allergy Unknown ASTHMA Verified 06/24/18 08:44 Anti-Inflamma FLARE UPS [NSAIDS (NON-STEROIDAL ANTI-INFLAMMA] ibuprofen AdvReac Mild nausea, GI Verified 06/24/18 08:44 upset Review of Systems Review of Systems All systems reviewed & are unremarkable except as noted in HPI and below Constitutional Denies chills, Denies fever(s) and Reports poor appetite Cardiovascular Reports chest pain, Denies syncope, Denies irregular heart rhythm, Denies lightheadedness, Denies palpitations, Denies dyspnea, Denies dyspnea on exertion and Denies orthopnea Respiratory Denies cough, Denies dyspnea, Denies dyspnea on exertion and Denies wheezing Gastrointestinal Gastrointestinal: Denies abdominal pain, Denies change in bowel habits, Denies diarrhea, Reports nausea and Denies vomiting Genitourinary Denies urinary frequency Musculoskeletal Reports tingling (All over) Integumentary/Breasts Denies rash Neurologic Denies syncope and Reports tingling (All over) Psychiatric Reports as per HPI and Reports anxiety Endocrine Denies palpitations Allergic/Immunologic Denies wheezing [facility] Medical History Anxiety (Acute) Asthma (Acute) Morbid obesity (Acute) Social History Smoking Status: Never smoker Exam Narrative Exam Narrative: GENERAL: Alert and oriented x three, morbidly obese male in mild distress. Patient was able to roll himself into ER via wheelchair. HEENT: Head normocephalic, atraumatic, EOMI, pupils reactive, face symmetric, moist mucous membranes NECK: Supple, full range of motion CARDIOVASCULAR: Regular rate and rhythm without murmurs, rubs or gallops. RESPIRATORY: Breath sounds equal bilaterally, no wheezes rales or rhonchi. ABDOMEN: Soft, nontender. Normoactive bowel sounds all 4 quadrants. No guarding or rebound, rigidity, no mass EXTREMITIES: Normal range of motion, no clubbing or edema. Neurovascularly intact NEUROLOGICAL: Cranial nerves II through XII grossly intact. Moving all extremities SKIN: Warm, dry, no petechiae, no rashes or lesions. PSYCH: anxiety, no suicidal or homicidal thoughts Initial Vital Signs Initial Vital Signs: Vital Signs Temperature 98.1 F 06/24/18 08:38 Pulse Rate 98 H 06/24/18 08:38 Respiratory Rate 22 06/24/18 08:38 Blood Pressure 128/65 06/24/18 08:38 Pulse Oximetry 95 06/24/18 08:38 Course Orders Ordered: ED Orders 06/24/18 08:50 EKG-12 Lead Stat Discontinued Medications Olanzapine (Zyprexa Zydis) 5 mg PO NOW ONE Stop: 06/24/18 09:14 Last Admin: 06/24/18 09:21 Dose: 5 mg Vital Signs - 8 hr 06/24/18 08:38 Temperature 98.1 F Pulse Rate 98 H Respiratory Rate 22 Blood Pressure 128/65 Pulse Oximetry 95 MDM - Anxiety ECG Data Attestation: I personally reviewed and interpreted this ECG as follows: Prior ECG tracings: available for review Interpretation: Sinus rhythm with a rate 92, MI 164, QRS of 128 QTC of 439. Patient appears to have a right bundle branch block which is consistent with prior EKGs including from 06/12/2018 and from prior visits. [facility] Narrative Medical decision making narrative: Discussed with patient and he would like to try zyprexa again. He has recently started buspar about 1 week ago. Discussed with patient there is increased risk of psychomotor symptoms and could potentially worsen symptoms in the short term including suicidal thoughts. EKG ordered as patient medications can cause Qt prolongation we discussed this and that that can cause cardiac arrhythmias. Patient is aware and would like to take again, he found it helpful last time. He has follow up in the next week and plan to discuss if this is an appropriate medication for him. He is comfortable with the plan. Discharge Plan Departure Patient Disposition: Home Clinical Impression: Anxiety Instructions: DI for Anxiety -- Adult Activity Restrictions/Additional Instructions: Take medication as prescribed. Occasionally this medication can worsen symptoms. Stop immediately if any suicidal thoughts or feelings of harming yourself or others. You may continue your home medications. Return to the ER if thoughts of hurting yourself or others, passing out, shortness of breath, chest pain, vomiting, fast or irregular heart beats or other new or concerning symptoms. Prescriptions: New olanzapine [Zyprexa Zydis] 5 mg tablet,disintegrating 5 mg PO DAILY 10 Days Qty: 10 RF: 0 No Action fluticasone-salmeterol [Advair Diskus] 500 MCG/50 MCG blister with device 1 puff INH BID Qty: 2 RF: 5 methadone 10 MG tablet 95 mg PO QDAY Qty: 0 RF: 0 prednisone 10 MG tablet 10 mg PO BID RF: 0 albuterol sulfate 2.5 MG/3 ML solution for nebulization 3 ml INH Q4HP PRN (Reason: Wheezing) RF: 0 cephalexin 500 mg capsule 500 mg PO QID Qty: 40 RF: 0 doxycycline hyclate 100 mg tablet 100 mg PO BID Qty: 20 RF: 0 albuterol sulfate [Ventolin HFA] 90 MCG/PUFF HFA aerosol inhaler 2 - 4 puff INH SEE INSTRUCTIONS PRN (Reason: Wheezing) RF: 0 doxycycline hyclate 100 mg tablet 100 mg PO Q12H Qty: 14 RF: 0 cyclobenzaprine 10 mg tablet 10 mg PO TID PRN (Reason: muscle spasm) Qty: 12 RF: 0 doxycycline hyclate 100 mg tablet 100 mg PO BID Qty: 20 RF: 0 prednisone 20 mg tablet 40 mg PO DAILY Qty: 6 RF: 0
[2018-06-24] MEDS: OLANZapine ODT 10 MG TAB 5 MG PO (09:21)
[2018-06-24 09:30] VITALS: BP 142/84; PULSE 102; RESP 20; O2SAT 94
--- NOTE | 2018-06-30 15:39 | PC.NURSE ---
called for follow up. Pts phone the number you have dialed is not able to receive calls at this time
== END 2018-06-24 09:30 | disposition home or self-care (01) ==
PROVIDERS: Emergency Provider Emergency Medicine; Family Provider Physician Assistant; PCP Physician Assistant
DX: F41.9 Anxiety disorder, unspecified (principal); R07.89 Other chest pain
CPT/HCPCS: 93005; 99282; 99283

== ENCOUNTER 2018-07-05 12:15 | Inpatient (IN) | payer MEDICAID, OTHER, SELFPAY ==
[2018-07-05] VITALS (12 sets, daily range): BP systolic 118–132; BP diastolic 56–73; PULSE 14–671; RESP 14–24; TEMP 36.6–36.9; O2SAT 91–100; BMI 76.6
--- NOTE | 2018-07-05 12:29 | ED.CHESTPAIN ---
HPI - Chest Pain General Chief Complaint: Chest Pain Stated Complaint: Chest Tightness, Anxiety Time Seen by Provider: 07/05/18 12:29 Source: patient Mode of arrival: EMS Limitations: no limitations History of Present Illness HPI narrative: Patient is a 37-year-old male with a history of anxiety he states that he had an anxiety attack this morning. He states that approximately 1 hr prior to that he started having chest pain. He states that he did not know whether not the chest pain was secondary to his asthma or the crying or the anxiety. He has had symptoms like this before. He states he does feel somewhat better than when the symptoms started. He has not taken his Zyprexa in the last 4 days because he is out of this medication. He states that he takes 10 mg 2 times a day. Did not use his albuterol prior to arrival here in the ER. Related Data Home Medications Medication Instructions Recorded Confirmed methadone 95 mg PO QDAY #0 05/07/17 03/02/18 albuterol sulfate 3 ml INH Q4HP PRN 01/28/18 03/02/18 prednisone 10 mg PO BID 01/28/18 03/02/18 albuterol sulfate [Ventolin HFA] 2 - 4 puff INH SEE INSTRUCTIONS PRN 02/04/18 03/02/18 Previous Rx's Medication Instructions Recorded fluticasone-salmeterol [Advair 1 puff INH BID #2 inh 04/28/17 Diskus] doxycycline hyclate 100 mg PO Q12H #14 tab 02/26/18 cyclobenzaprine 10 mg PO TID PRN #12 tab 03/05/18 cephalexin 500 mg PO QID #40 cap 04/10/18 doxycycline hyclate 100 mg PO BID #20 tab 04/10/18 doxycycline hyclate 100 mg PO BID #20 tab 04/24/18 prednisone 40 mg PO DAILY #6 tab 05/08/18 Allergies Allergy/AdvReac Type Severity Reaction Status Date / Time NSAIDS (Non-Steroidal Allergy Unknown ASTHMA Verified 06/24/18 08:44 Anti-Inflamma FLARE UPS [NSAIDS (NON-STEROIDAL ANTI-INFLAMMA] ibuprofen AdvReac Mild nausea, GI Verified 06/24/18 08:44 upset Review of Systems Constitutional Denies fatigue and Denies headache(s) ENT Ears, Nose, Mouth, and Throat: Denies headache(s) Cardiovascular Reports chest pain, Denies rapid heart rate, Denies radiating jaw, neck or arm pain, Denies palpitations and Denies dyspnea Respiratory Denies dyspnea Gastrointestinal Gastrointestinal: Denies abdominal pain Musculoskeletal Denies myalgias and Denies arthralgias Integumentary/Breasts Denies lesions and Denies rash Neurologic Denies headache(s) Psychiatric Reports anxiety Endocrine Denies fatigue and Denies palpitations [facility] Medical History Anxiety (Acute) Asthma (Acute) Morbid obesity (Acute) Social History Smoking Status: Never smoker Exam Initial Vital Signs Initial Vital Signs: Vital Signs Temperature 98.2 F 07/05/18 12:23 Const General: cooperative, well developed, well groomed and No acute distress Nutritional Appearance: obese Orientation: alert, awake and oriented x3 HENMT Head: normal to inspection and normocephalic Resp Effort & Inspection: normal respiratory effort, not labored, no retractions and not tachypneic Auscultation: wheezes scattered wheezes Cardio Rate: regular rate Rhythm: regular rhythm Pulses: radial pulses present Skin Other: Patient with several stage I decubitus ulcers on bilateral buttocks. Neuro General: alert, awake and oriented x3 Extrem General: normal to inspection and capillary refill normal Psych Appearance: grossly normal and well kempt Course Orders Ordered: ED Orders 07/05/18 12:36 XR chest 1V Stat EKG-12 Lead Stat 07/05/18 12:41 Urine Microscopic Stat 07/05/18 17:08 B Type Natriuretic Peptide Stat Basic Metabolic Panel Stat Complete Blood Count AUTO DIFF Stat Discontinued Medications Albuterol (Ventolin) 2.5 mg INH NOW ONE Stop: 07/05/18 16:47 Albuterol/Ipratropium (Duoneb) 3 ml INH NOW ONE Stop: 07/05/18 12:50 Last Admin: 07/05/18 13:14 Dose: 3 ml Albuterol/Ipratropium (Duoneb) 3 ml INH NOW ONE Stop: 07/05/18 14:30 Last Admin: 07/05/18 14:46 Dose: 3 ml Albuterol/Ipratropium (Duoneb) 3 ml INH NOW ONE Stop: 07/05/18 15:59 Last Admin: 07/05/18 16:18 Dose: 3 ml Dexamethasone (Decadron) 10 mg PO NOW ONE Stop: 07/05/18 12:50 Last Admin: 07/05/18 13:07 Dose: 10 mg Lorazepam (Ativan) 1 mg PO NOW ONE Stop: 07/05/18 13:44 Last Admin: 07/05/18 13:54 Dose: 1 mg Olanzapine (Zyprexa Zydis) 10 mg PO NOW ONE Stop: 07/05/18 12:50 Last Admin: 07/05/18 13:07 Dose: 10 mg Olanzapine (Zyprexa Zydis) 10 mg PO NOW ONE Stop: 07/05/18 14:30 Last Admin: 07/05/18 14:56 Dose: 10 mg Vital Signs - 8 hr 07/05/18 12:23 07/05/18 12:25 07/05/18 13:16 Temperature 98.2 F 98.2 F Pulse Rate 83 14 L Respiratory Rate 24 Blood Pressure [Left Arm] 131/69 Pulse Oximetry 94 100 07/05/18 14:47 07/05/18 15:41 07/05/18 15:58 Temperature Pulse Rate 83 671 H 99 H Respiratory Rate 14 18 Blood Pressure [Left Arm] 132/56 L Pulse Oximetry 98 91 94 07/05/18 16:18 07/05/18 17:02 Temperature Pulse Rate 79 95 H Respiratory Rate 14 18 Blood Pressure [Left Arm] 123/72 Pulse Oximetry 96 91 MDM - Chest Pain Medical Records Data Attestation: I reviewed the patient's medical records. Lab Data Attestation: I reviewed the patient's lab results. Lab Results 07/05/18 Range/Units 12:41 Urine RBC None seen (0-5/HPF) Urine WBC None seen (0-5/HPF) Ur Squamous Epith Cells 0-1 /hpf Urine Bacteria Occasional (0-1) (None) Urine Mucus 1+ H (Negative) Ur Culture Indicated? Cult not indicated Micro UA Comment Not Reportable Urine Dip Bedside Urine Glucose Negative Bedside Urine Bilirubin - Negative Bedside Urine Ketone - Negative Urine Specific [place] 1.010 Bedside Urine Occult Blood - Negative Bedside Urine pH 8.5 Bedside Urine Protein + 30 Bedside Urine Urobilinogen +/- 1mg Bedside Urine Nitrite - Negative Bedside Urine Leukocytes - Negative Esterase Imaging Data Chest x-ray: Radiologist's impression: PROCEDURE: XR CHEST 1V INDICATIONS: chest pain TECHNIQUE: One view of the chest was acquired. COMPARISON: [facility], CR, XR CHEST 1V, 05/08/2018, 14:14. FINDINGS: Surgical changes and devices: None. Lungs and pleura: No pleural effusions or pneumothorax. Mild cephalization of pulmonary vasculature and perihilar opacities. Mediastinum: Mediastinal contours appear normal. Heart size is normal. Bones and chest wall: No suspicious bony lesions. Overlying soft tissues appear unremarkable. IMPRESSION: Mild pulmonary edema. Dictated by: Zainab Cardozo MD, PhD on 07/05/2018 at 13:08 Approved by: Zainab Cardozo MD, PhD on 07/05/2018 at 13:09 ECG Data Attestation: I personally reviewed and interpreted this ECG as follows: Prior ECG tracings: not available for review Interpretation: Sinus rhythm Ventricular rate is 76 Normal axis Normal intervals Normal QRS No ST T wave changes MDM Narrative Medical decision making narrative: Patient must less anxious after 20 mg of Zyprexa and 1 mg of Ativan. This is all given orally. He has also received multiple doses nebulizer treatments here and also steroids. Patient tachypneic but not hypoxic. His albuterol lasts approximately 30 min and then he starts wheezing again and becomes very short of breath with then increases his anxiety. Patient now on his 4th nebulizer treatment. Chest x-ray shows no signs of pneumonia. Does show pulmonary edema however I do feel that this is most likely secondary to his body habitus. He does have several stage I decubitus ulcers on his buttocks he states this has been going on for some time now. No fevers. No cough. Low suspicion for pneumonia. Will hold on antibiotics for now. Given his need for multiple nebulizers in the return of the wheezing I do feel that he would need admission to the hospital for more frequent nebulizer treatments. I discussed this with the patient who agrees with the admission. I discussed this with Dr. Lewis who accepts the patient for admission. Labs pending at the time of arrival. Discharge Plan Departure Patient Disposition: Admitted as Observation Clinical Impression: Asthma exacerbation, Anxiety, Decubitus ulcer
--- NOTE | 2018-07-05 12:36 | DI.RAD.S_ITS ---
PROCEDURE: XR CHEST 1V INDICATIONS: chest pain TECHNIQUE: One view of the chest was acquired. COMPARISON: [facility], CR, XR CHEST 1V, 05/08/2018, 14:14. FINDINGS: Surgical changes and devices: None. Lungs and pleura: No pleural effusions or pneumothorax. Mild cephalization of pulmonary vasculature and perihilar opacities. Mediastinum: Mediastinal contours appear normal. Heart size is normal. Bones and chest wall: No suspicious bony lesions. Overlying soft tissues appear unremarkable. IMPRESSION: Mild pulmonary edema. Dictated by: Zainab Cardozo MD, PhD on 07/05/2018 at 13:08 Approved by: Zainab Cardozo MD, PhD on 07/05/2018 at 13:09
[2018-07-05] MEDS: DEXAMETHASONE 10 MG/ML VIAL PO (13:07)
[2018-07-05] MEDS: OLANZapine ODT 10 MG TAB PO ×3 (13:07→22:26)
[2018-07-05] MEDS: ALBUTEROL/IPRATROPIUM 3 ML AMPUL INH ×3 (13:14→16:18)
[2018-07-05] MEDS: LORazepam 1 MG TABLET PO (13:54)
[2018-07-05 14:39] LABS: RBC Urine None Seen (0-5/HPF); WBC Urine None Seen (0-5/HPF)
[2018-07-05 14:53] LABS: Bacteria Urine Occasional (0-1); Mucus Urine 1+ (Negative); Squamous Epithelial Cell Urine 0-1 /HPF
[2018-07-05 15:07] LABS: Culture Indicated Urine Cult Not Indicated
[2018-07-05] MEDS: ALBUTEROL 2.5 MG/3 ML NEB (ADULT) INH (17:22)
[2018-07-05 17:33] LABS: Add Manual Diff / Slide Review NO; Basophils Percent Auto 0.2 % (0-2); Eosinophils Percent Auto 0.1 % (2-4); Hematocrit 40.4 % (41-53); Hemoglobin 12.6 g/dL (13.5-17.5); Lymphocytes Percent Auto 4.9 % (25-40); Mean Corpuscular HGB Conc 31.1 % (30-36); Mean Corpuscular Hemoglobin 24.9 PG (26-34); Mean Corpuscular Volume 80.1 fL (80-100); Monocytes Percent Auto 0.9 % (3-14); Neutrophils Absolute Auto 7000 /uL (3000-5900); Neutrophils Percent Auto 93.9 % (50-75); Platelet Count 242 X10^3/uL (150-400); Red Blood Cell Count 5.04 X10^6/uL (4.5-5.9); Red Cell Distribution Width 16.7 % (11.6-14.8); White Blood Cell Count 7.5 X10^3/uL (4.5-11.0)
[2018-07-05 17:45] LABS: Blood Urea Nitrogen 6 mg/dL (9-20); Calcium 8.7 mg/dL (8.4-10.2); Carbon Dioxide 32 mmol/L (22-32); Chloride 103 mmol/L (98-107); Estimated Glomerular Filt Rate > 60.0 mL/min (>60); Glucose 137 mg/dL (70-100); HEMOLYSIS < 15 (0-50); Potassium 4.1 mmol/L (3.4-5.1); Sodium 142 mmol/L (137-145)
--- NOTE | 2018-07-05 17:50 | PM.HP.1 ---
History of Present Illness Date Patient Seen: 07/05/18 Time Patient Seen: 17:59 Chief complaint: Chest Tightness, Anxiety Narrative: 37-year-old male with past medical history of morbid obesity, asthma, anxiety, and bilateral foot decubitus ulcers presented to ED with chest tightness. Patient states that chest pain started around 12:00 p.m. today. It is in the middle of the chest, 4/10 severity, pressure-like, nonradiating, and alterating between sharp/dull. Associated with shortness of breath, and palpitations. Patient also complained of mild dizziness during the chest pain episode. Patient was sitting in his wheelchair when the pain started. It did not improve or exacerbated with movements. Patient denies any loss of consciousness, recent fevers or chills, recent URI like symptoms, recent cough or sore throat. Patient denies any associated nausea or vomiting, diarrhea or constipation. No symptoms. He is however anxious more than before and associates his chest pain to previous anxiety attacks. When the pain would not go away for 2 hr, patient came to emergency department. No inciting events prior to onset of chest pain. In ED, patient's vital signs were stable. He was saturating 92-94% on room air. Physical exam revealed profound wheezing in all lung wade. Chest x-ray revealed no pleural effusions or pneumothorax, but mild cephalization of pulmonary vasculature and perihilar opacities, consistent with a possible mild pulmonary edema (however patient is morbidly obese and diagnosis is scewed). Patient received multiple nebulizer treatments in the ED, as well as dexamethasone 1 time, but continued to wheeze and was admitted under observation for continuation of treatment of acute asthma exacerbation. Patient was also given Olanzapine 20mg with improvement of chest tightness/anxiety symptoms. Patient History Medical History Methadone use disorder, mild, in controlled environment (Chronic) Anxiety (Acute) Asthma (Acute) Morbid obesity (Chronic) Surgical History H/O vertebral fracture repair (Chronic) History of hip surgery (Chronic) Family & Social History Family History: Reviewed 07/05/18 by Rene Soria DO Tobacco & Substance use: Smoking Status Never smoker alcohol intake frequency 0-2 drinks per day Substance Use Type marijuana, METHADONE PROGRAM Meds Home Medications Medication Instructions Recorded Confirmed Type fluticasone-salmeterol [Advair 1 puff INH BID #2 inh 04/28/17 03/02/18 Rx Diskus] methadone 95 mg PO QDAY #0 05/07/17 03/02/18 History albuterol sulfate 3 ml INH Q4HP PRN 01/28/18 03/02/18 History prednisone 10 mg PO BID 01/28/18 03/02/18 History albuterol sulfate [Ventolin HFA] 2 - 4 puff INH SEE INSTRUCTIONS PRN 02/04/18 03/02/18 History Allergies Allergy/AdvReac Type Severity Reaction Status Date / Time NSAIDS (Non-Steroidal Allergy Unknown ASTHMA Verified 06/24/18 08:44 Anti-Inflamma FLARE UPS [NSAIDS (NON-STEROIDAL ANTI-INFLAMMA] ibuprofen AdvReac Mild nausea, GI Verified 06/24/18 08:44 upset Review of Systems Review of Systems All systems reviewed & are unremarkable except as noted in HPI and below Exam Vital Signs (past 8 hours): - 07/05/18 12:23 07/05/18 12:25 07/05/18 13:16 Temperature 98.2 F 98.2 F Pulse Rate 83 14 L Respiratory Rate 24 Blood Pressure [Left Arm] 131/69 Pulse Oximetry 94 100 07/05/18 14:47 07/05/18 15:41 07/05/18 15:58 Temperature Pulse Rate 83 671 H 99 H Respiratory Rate 14 18 Blood Pressure [Left Arm] 132/56 L Pulse Oximetry 98 91 94 07/05/18 16:18 07/05/18 17:02 07/05/18 17:22 Temperature Pulse Rate 79 95 H 79 Respiratory Rate 14 18 14 Blood Pressure [Left Arm] 123/72 Pulse Oximetry 96 91 96 Oxygen Delivery Method Room Air Oxygen Flow Rate 2 Const General: cooperative and acute distress (mild) Nutritional Appearance: obese morbidly obese Orientation: alert, awake and oriented x3 HENMT Head: normal to inspection and atraumatic Ears: hearing grossly normal bilaterally and external ears normal Nose: external nose normal Face and sinus: normal facial exam Mouth: oral mucosae normal Throat: posterior oropharynx normal Eyes EOM: EOM intact bilaterally Direct ophthalmoscopy: normal light reflex Neck Neck: normal visual inspection and other (obese short neck) Lymphatic: No lymphadenopathy Chest Chest: normal inspection of the chest and other (obese chest) Resp Effort & Inspection: able to speak in complete sentences, audible wheezes and respiratory distress (mild) Auscultation: wheezes expiratory wheezes, inspiratory wheezes, lower bilaterally and upper bilaterally Percussion: percussion normal Cardio Palpation: normal PMI Rate: regular rate Rhythm: regular rhythm Heart Sounds: S1 normal and S2 normal Pulses: normal peripheral pulses GI Inspection: normal to inspection and obesity Palpation: soft Percussion: normal to percussion Auscultation: normal bowel sounds Skin General: no rashes or lesions noted and warm Trauma: no lacerations or abrasions Wounds: wounds noted (BL foot decub ulcers) Neuro General: alert, awake and oriented x3 Cranial Nerves: CN's II-XI intact bilaterally Cognition: normal cognition Speech: speech normal Extrem General: normal to inspection Right upper extremity: normal to inspection Left upper extremity: normal to inspection Right lower extremity: normal to inspection Left lower extremity: normal to inspection Psych Appearance: disheveled Mental Status: mental status grossly normal Speech and Movement: restless Mood: anxious mood Objective Labs Result Diagrams: 07/05/18 17:25 07/05/18 17:25 Labs: Laboratory Results - last 24 hr 07/05/18 07/05/18 12:41 17:25 WBC 7.5 RBC 5.04 Hgb 12.6 L Hct 40.4 L MCV 80.1 MCH 24.9 L MCHC 31.1 RDW 16.7 H Plt Count 242 Neut % (Auto) 93.9 H Lymph % (Auto) 4.9 L [place] % (Auto) 0.9 L Eos % (Auto) 0.1 L Baso % (Auto) 0.2 Neut # (Auto) 7000 H Urine RBC None seen Urine WBC None seen Ur Squamous Epith Cells 0-1 /hpf Urine Bacteria Occasional (0-1) Urine Mucus 1+ H Ur Culture Indicated? Cult not indicated Micro UA Comment Not Reportable Assessment & Plan Plan: Assessment/Plan Narrative: 37-year-old male with past medical history of morbid obesity, asthma, anxiety, and bilateral foot decubitus ulcers presented to ED with chest tightness, anxiety, and SOB. Was found to be in asthma exacerbation and failed multiple interventions in ED. Now admitted for further management. 1. Chest Tightness - Likely due to asthma exacerbation and panic/anxiety attack. Now resolved - Afebrile with no leukocytosis. Saturating 92-94% on RA - CXR showed reviewed: no pleural effusions or pneumothorax, but mild cephalization of pulmonary vasculature and perihilar opacities, consistent with a possible mild pulmonary edema (however patient is morbidly obese and diagnosis is scewed) - EKG showed sinus rhythm with L atrial enlargement - Received Multiple duoneb treatments in ED but continues to have profound wheezing - Will continue Duonebs Q6H Scheduled, Albuterol Q4H PRN, and Prednisone 60mg Daily x5 days - Will get troponins to rule out other causes of chest pain 2. Anxiety - Came in very anxious - Received 20mg PO Olanzapine in ED as well as 1mg Ativan with improvement of symptoms - Continue home medications Olanzapine - Ativan PRN 3. Substance dependance - In Methadone program, at [facility] - Patient states he takes 95mg Methadone Daily - Will confirm dose and restart tomorrow 4. Morbid Obesity - Nutrition counseling, weight loss counseling 5. BL foot decub ulcers - Wound care consult 60 min spent evaluating and providing care to this patient
[2018-07-05 17:51] LABS: B Type Natriuretic Peptide < 29.4 (<100)
[2018-07-05 18:56] LABS: Troponin I < 0.012 ng/mL (0.01-0.034)
--- NOTE | 2018-07-05 19:20 | PC.NURSE ---
Addendum entered by Ju Peña R.N. 07/05/18 23:39: Attempted to place graduated compression stockings as ordered, unable to move stockings above ankle. Patient was in discomfort and refused further attempt. Stockings appeared extremely tight with possible circulation compromise. Original Note: Kianna shift note: Patient admitted to AC from ED via WC. On RA with sats 95%, speaking in full sentences, no SOB noted. Awake, alert and calm. Oriented to room, environment, and plan of care. Call light within reach. Calls appropriately for staff assistance.
[2018-07-06] VITALS (15 sets, daily range): BP systolic 121–142; BP diastolic 54–67; PULSE 80–92; RESP 16–24; TEMP 36.5–37; O2SAT 92–100
[2018-07-06] MEDS: ALBUTEROL 2.5 MG/3 ML NEB (ADULT) INH ×3 (01:00→22:59)
[2018-07-06] MEDS: LORazepam 2 MG/ML SYRINGE 1 MG IV ×3 (05:03→19:21)
[2018-07-06] MEDS: SODIUM CHLORIDE 0.9% FLUSH 10 ML IV ×3 (05:03→21:53)
--- NOTE | 2018-07-06 05:31 | PC.NURSE ---
C/O anxiety requested Lorazepam 1 mg. admin. IVP. Bed bath done panus very moist & smells yeasty. Powder applied & pillow cases placed. Will report to day RN if MD will order antifungal meds. & monitor.
[2018-07-06 05:51] LABS: Add Manual Diff / Slide Review NO; Basophils Percent Auto 0.1 % (0-2); Hematocrit 36.5 % (41-53); Hemoglobin 11.6 g/dL (13.5-17.5); Lymphocytes Percent Auto 13.5 % (25-40); Mean Corpuscular HGB Conc 31.7 % (30-36); Mean Corpuscular Hemoglobin 25.1 PG (26-34); Mean Corpuscular Volume 79.2 fL (80-100); Monocytes Percent Auto 5.3 % (3-14); Neutrophils Absolute Auto 4100 /uL (3000-5900); Neutrophils Percent Auto 81.1 % (50-75); Platelet Count 128 X10^3/uL (150-400); Red Blood Cell Count 4.61 X10^6/uL (4.5-5.9); Red Cell Distribution Width 16.4 % (11.6-14.8); White Blood Cell Count 5.1 X10^3/uL (4.5-11.0)
[2018-07-06 06:00] LABS: BUN Creatinine Ratio 13.3 (6-22); Blood Urea Nitrogen 8 mg/dL (9-20); Calcium 8.9 mg/dL (8.4-10.2); Carbon Dioxide 33 mmol/L (22-32); Chloride 102 mmol/L (98-107); Estimated Glomerular Filt Rate > 60.0 mL/min (>60); Glucose 123 mg/dL (70-100); HEMOLYSIS < 15 (0-50); Potassium 4.2 mmol/L (3.4-5.1); Sodium 141 mmol/L (137-145)
[2018-07-06] MEDS: ALBUTEROL/IPRATROPIUM 3 ML AMPUL INH ×3 (06:05→19:46)
[2018-07-06] MEDS: OLANZapine ODT 10 MG TAB PO ×2 (08:31→21:53)
[2018-07-06] MEDS: predniSONE 20 MG TABLET 60 MG PO (08:31)
--- NOTE | 2018-07-06 09:58 | PC.NURSE ---
pt refusing IV Lasix, stating it makes me pee to much. education given on rationale of Lasix. pt states he'll wait and speak with the doctor. pt up to shower. 2 open wounds on scotum. pt states he has had them. skin is malodorous.
[2018-07-06] MEDS: METHADONE 10 MG TABLET 95 MG PO (10:50)
--- NOTE | 2018-07-06 13:46 | PC.NURSE ---
Dayshift Note: Assumed care of pt at 11:00. Pt received on 1 L NC, sitting upright in bed. Pt had refused iv lasix this am d/t his discomfort with frequent urination (only about 25-50 cc per void). This RN discussed the importance of the medication with the patient, especially with his continued difficulty breathing. Pt discussed lasix with MD Lewis, Dr. Lewis re-iterated that this medication is very important for the improvement of respiratory status, which in turn will make mobility more manageable. Pt agreed, but preferred PO to IV lasix. Dr. Lewis adjusted and ordered PO lasix. Will administer when available from pharmacy. Wound consult this shift, pt received orders for wound care. Will continue to monitor, notify MD with changes.
[2018-07-06] MEDS: FUROSEMIDE 40 MG TABLET 80 MG PO (14:08)
--- NOTE | 2018-07-06 15:57 | CM.IDA ---
Further assessment scheduled for , 07.07.18. SHAHLA Discharge Planning/Care Management CM Discharge Assessment Start: 07/06/18 15:52 Freq: Status: Active Protocol: Document 07/06/18 15:52 SHAHLA (Rec: 07/06/18 15:57 SHAHLA [id number]) Discharge Planning Assessment Assigned Literacy Education Professor JOSÉ LUIS Lowery DPOA/Assigned Designee Name Lianna Fitzgerald, mom Ann John, SO Contact Information mom, , SO, Advance Directives? No History Provided By Patient Medical Record Prior Living Arrangements House Household Members significant other Type of transporation used prior to Relies on Others admit Independent with ADL's No Is patient alert and oriented? Yes Comment 5'4 446 lbs Comment Methadone program Barriers to Discharge Yes Comment Large young man, Methadone program, marijuana, 0-2 drinks daily; polysubstance. Needs wound care. DC needs Pending assessment Discharge Plan Home Transportation Arrangement Pending discussion w/pt; family vs ? Whiteboard Updated in Patient Room with Yes name and ext. # of Literacy Education Professor Review Status In Process
--- NOTE | 2018-07-06 16:17 | P.PN_ITS ---
Subjective Date Patient Seen: 07/06/18 Time Patient Seen: 16:10 Interval history: FOLLOW UP ON ANXIETY AND CHEST TIGHTNESS AND ASTHMA EXACERBATION Patient seen at bedside. Still continues to wheeze and requiring more Nebulizer treatments. No overnight events. Chest tightness resolved Exam Vital Signs (past 8 hours): - 07/06/18 09:09 07/06/18 09:53 07/06/18 11:00 Temperature 98.6 F Pulse Rate 92 H 82 Respiratory Rate 16 20 Blood Pressure 126/67 Pulse Oximetry 100 98 95 07/06/18 13:35 07/06/18 15:40 Temperature 98.2 F Pulse Rate 87 86 Respiratory Rate 18 24 Blood Pressure 142/65 H Pulse Oximetry 98 92 Oxygen Delivery Method Room Air Oxygen Flow Rate 0 Narrative Exam Narrative: Gen: NAD, AAOx3 HEENT: PERRLA BL Neck: Short, obese. no JVD CV: RRR, no murmurs Resp: Audible wheezes still appreciated, inspiratory and expiratory GI: Obese, soft, +BS MSK: NL ROM. Uses walker to ambulate Neuro: NFD Objective Labs Result Diagrams: 07/06/18 05:30 07/06/18 05:30 Labs: Laboratory Results - last 24 hr 07/05/18 07/05/18 07/05/18 17:25 17:25 18:18 WBC 7.5 RBC 5.04 Hgb 12.6 L Hct 40.4 L MCV 80.1 MCH 24.9 L MCHC 31.1 RDW 16.7 H Plt Count 242 Neut % (Auto) 93.9 H Lymph % (Auto) 4.[address] [place] % (Auto) 0.9 L Eos % (Auto) 0.1 L Baso % (Auto) 0.2 Neut # (Auto) 7000 H Sodium 142 Potassium 4.1 Chloride 103 Carbon Dioxide 32 BUN 6 L Creatinine 0.50 L Estimated GFR > 60.0 BUN/Creatinine Ratio 12.0 Glucose 137 H Calcium 8.7 Troponin I < 0.012 B-Natriuretic Peptide < 29.4 07/06/18 07/06/18 05:30 05:30 WBC 5.1 RBC 4.61 Hgb 11.6 L Hct 36.5 L MCV 79.2 L MCH 25.1 L MCHC 31.7 RDW 16.4 H Plt Count 128 L Neut % (Auto) 81.1 H Lymph % (Auto) 13.[address] [place] % (Auto) 5.3 Eos % (Auto) 0.0 L Baso % (Auto) 0.1 Neut # (Auto) 4100 Sodium 141 Potassium 4.2 Chloride 102 Carbon Dioxide 33 H BUN 8 L Creatinine 0.60 L Estimated GFR > 60.0 BUN/Creatinine Ratio 13.3 Glucose 123 H Calcium 8.9 Troponin I B-Natriuretic Peptide Assessment & Plan Plan: Assessment/Plan Narrative: 1. Asthma Exacerbation - Does not seem to be improving - Afebrile with no leukocytosis. Saturating 92-94% on RA - CXR showed reviewed: no pleural effusions or pneumothorax, but mild cephalization of pulmonary vasculature and perihilar opacities, consistent with a possible mild pulmonary edema - EKG showed sinus rhythm with L atrial enlargement, trop negative - Received Multiple duoneb treatments and still continues to require frequent treatments - Will continue Duonebs Q6H Scheduled, Albuterol Q4H PRN, and Prednisone 60mg Daily x5 days total - Will give Lasix PO 80mg to see if wheezing improves with diuresis, given CXR findings 2. Anxiety - Resolved - Continue home medications Olanzapine - Ativan PRN 3. Substance dependance - In Methadone program, at [facility] - Patient states he takes 95mg Methadone Daily - Continue home methadone dose 4. Morbid Obesity - Nutrition counseling, weight loss counseling 5. Multiple decub ulcers - BL heel ulcers resolved but there is one on the buttocks - Wound care consulted, dressings applied 20 min spent evaluating and providing care to this patient
[2018-07-07] VITALS (14 sets, daily range): BP systolic 118–143; BP diastolic 65–97; PULSE 81–109; RESP 16–24; TEMP 36.6–36.8; O2SAT 92–98
--- NOTE | 2018-07-07 00:56 | PC.NURSE ---
Bariatric bed arrived, changed his savannah bed to bariatric bed. Noted very dyspneic when he transferred from bed to the recliner & back to bed. Pt. requested lots of snacks, milk, katherine crackers & juices. Encouraged to drink more water than juices, will cont. POC & monitor.
[2018-07-07] MEDS: SODIUM CHLORIDE 0.9% FLUSH 10 ML IV ×2 (05:10→09:10)
[2018-07-07] MEDS: LORazepam 2 MG/ML SYRINGE 1 MG IV ×3 (05:11→17:02)
[2018-07-07] MEDS: ALBUTEROL/IPRATROPIUM 3 ML AMPUL INH ×3 (05:11→17:55)
--- NOTE | 2018-07-07 05:27 | PC.NURSE ---
Requested Lorazepam for anxiety 1 mg. Admin. IVP. RT was here admin. his treatment. No C/O CP & other discomfort. Will monitor.
[2018-07-07 05:54] LABS: Add Manual Diff / Slide Review NO; Basophils Percent Auto 0.1 % (0-2); Hematocrit 35.9 % (41-53); Hemoglobin 11.4 g/dL (13.5-17.5); Lymphocytes Percent Auto 33.8 % (25-40); Mean Corpuscular HGB Conc 31.8 % (30-36); Mean Corpuscular Hemoglobin 25.4 PG (26-34); Mean Corpuscular Volume 79.9 fL (80-100); Monocytes Percent Auto 9.4 % (3-14); Neutrophils Absolute Auto 3600 /uL (3000-5900); Neutrophils Percent Auto 56.7 % (50-75); Platelet Count 136 X10^3/uL (150-400); Red Blood Cell Count 4.49 X10^6/uL (4.5-5.9); Red Cell Distribution Width 16.4 % (11.6-14.8); White Blood Cell Count 6.4 X10^3/uL (4.5-11.0)
[2018-07-07 05:58] LABS: Blood Urea Nitrogen 14 mg/dL (9-20); Calcium 8.2 mg/dL (8.4-10.2); Carbon Dioxide 36 mmol/L (22-32); Chloride 101 mmol/L (98-107); Estimated Glomerular Filt Rate > 60.0 mL/min (>60); Glucose 115 mg/dL (70-100); HEMOLYSIS < 15 (0-50); Potassium 4.1 mmol/L (3.4-5.1); Sodium 141 mmol/L (137-145)
[2018-07-07] MEDS: ALBUTEROL 2.5 MG/3 ML NEB (ADULT) INH ×3 (08:35→11:15)
[2018-07-07] MEDS: METHADONE 10 MG TABLET 90 MG PO (09:09)
[2018-07-07] MEDS: predniSONE 20 MG TABLET 60 MG PO (09:09)
[2018-07-07] MEDS: OLANZapine ODT 10 MG TAB PO ×2 (09:09→19:53)
[2018-07-07] MEDS: METHADONE 5 MG TABLET PO (09:09)
--- NOTE | 2018-07-07 11:32 | P.DS_ITS ---
History of Present Illness Chief complaint: Chest Tightness, Anxiety Narrative: 37-year-old male with past medical history of morbid obesity, asthma , anxiety, and bilateral foot decubitus ulcers presented to ED with chest tightness. Patient states that chest pain started around 12:00 p.m. today. It is in the middle of the chest, 4/10 severity, pressure-like, nonradiating, and alterating between sharp/dull. Associated with shortness of breath, and palpitations. Patient also complained of mild dizziness during the chest pain episode. Patient was sitting in his wheelchair when the pain started. It did not improve or exacerbated with movements. Patient denies any loss of consciousness, recent fevers or chills, recent URI like symptoms, recent cough or sore throat. Patient denies any associated nausea or vomiting, diarrhea or constipation. No symptoms. He is however anxious more than before and associates his chest pain to previous anxiety attacks. When the pain would not go away for 2 hr, patient came to emergency department. No inciting events prior to onset of chest pain. Discharge Providers Date of admission: 07/05/18 17:19 Primary care physician: Gabe Meraz PA-C Consults: 07/05/18 17:47 Consult to Wound Care Routine Comment: Consulting Provider: [facility] Discharge provider: Mariela Lewis MD Discharge Date: 07/07/18 Summary Hospital Course: In ED, patient's vital signs were stable. He was saturating 92 -94% on room air. Physical exam revealed profound wheezing in all lung wade. Chest x-ray revealed no pleural effusions or pneumothorax, but mild cephalization of pulmonary vasculature and perihilar opacities, consistent with a possible mild pulmonary edema (however patient is morbidly obese and diagnosis is scewed). Patient received multiple nebulizer treatments in the ED , as well as dexamethasone 1 time, but continued to wheeze and was admitted under observation for continuation of treatment of acute asthma exacerbation. Patient was also given Olanzapine 20mg with improvement of chest tightness/ anxiety symptoms. While admitted, patient was started on prednisone 60 mg daily, and received DuoNeb q.6 hours scheduled, as well as albuterol q.4 hours as needed. He required increase in albuterol frequency to an acute 2 hr as needed on the 2nd day, however once symptoms have improved, went back to q.4 hours as needed. On the 2nd day of the admission chest x-ray was reviewed again, which showed mild pulmonary edema. Regarding this concern, patient was given Lasix 40 IV x1, with good improvement of symptoms and adequate diuresis. Patient continued to saturate 96-97% on room air. On day 3 of his admission, his wheezing has improved. There was concern of self-inflicted wheezing, as patient was insisting on staying at the hospital for 1 more day, every day. Patient was deemed clinically stable, and was discharged home, with instructions to take prednisone for 3 more days (dose: 80mg Daily) as well as use inhalers at home as needed. During the admission, patient was also noted to have decubitus ulcer in sacral region. Wound Care was consulted who has recommended dressings at least once a week, as well as home health consult. Patient was given option of home health. Exam Vital Signs (past 8 hours): - 07/07/18 05:12 07/07/18 05:30 07/07/18 07:55 Temperature 97.8 F 97.8 F Pulse Rate 87 81 Respiratory Rate 16 24 Blood Pressure 118/75 143/97 H Pulse Oximetry 96 97 98 07/07/18 08:36 07/07/18 08:50 Temperature Pulse Rate 99 H 100 H Respiratory Rate 18 18 Blood Pressure Pulse Oximetry 97 97 Oxygen Delivery Method Room Air Oxygen Flow Rate 1 Narrative Exam Narrative: Exam Narrative: Gen: NAD, AAOx3. Morbidly obese male HEENT: PERRLA BL Neck: Short, obese. no JVD CV: RRR, no murmurs Resp: Wheezes that are resolving. No crackles or rhales GI: Obese, soft, +BS, no organomegally MSK: NL ROM. Uses walker to ambulate but does so minimally. mainly wheelchair bound Neuro: NFD, CN II-XII intact Psych: Patient keeps saying he wants to stay at the hospital one more day although not in any distress and is doing well clinically. He is anxious, which is his baseline. Objective Labs Result Diagrams: 07/07/18 05:18 07/07/18 05:18 Labs: Laboratory Results - last 24 hr 07/07/18 07/07/18 05:18 05:18 WBC 6.4 RBC 4.49 L Hgb 11.4 L Hct 35.9 L MCV 79.9 L MCH 25.4 L MCHC 31.8 RDW 16.4 H Plt Count 136 L Neut % (Auto) 56.7 D Lymph % (Auto) 33.8 D [place] % (Auto) 9.4 Eos % (Auto) 0.0 L Baso % (Auto) 0.1 Neut # (Auto) 3600 Sodium 141 Potassium 4.1 Chloride 101 Carbon Dioxide 36 H BUN 14 Creatinine 0.70 Estimated GFR > 60.0 BUN/Creatinine Ratio 20.0 Glucose 115 H Calcium 8.2 L Discharge Plan Discharge Plan Patient Disposition: Home Discharge comment: please take prednisone 80mg Daily for 3 more days FIRST, and then resume your home dose prednisone 10mg BID Discharge Med Rec/Prescriptions Prescriptions: New prednisone 20 mg Tablet 80 mg PO DAILY Qty: 12 RF: 0 olanzapine [Zyprexa Zydis] 10 mg Tablet,Disintegrating 10 mg PO BID Qty: 60 RF: 0 Continue fluticasone-salmeterol [Advair Diskus] 500 MCG/50 MCG blister with device 1 puff INH BID Qty: 2 RF: 5 methadone 10 MG tablet 95 mg PO QDAY Qty: 0 RF: 0 prednisone 10 MG tablet 10 mg PO BID RF: 0 albuterol sulfate 2.5 MG/3 ML solution for nebulization 3 ml INH Q4HP PRN (Reason: Wheezing) RF: 0 albuterol sulfate [Ventolin HFA] 90 MCG/PUFF HFA aerosol inhaler 2 - 4 puff INH SEE INSTRUCTIONS PRN (Reason: Wheezing) RF: 0 Follow up/Referrals: Gabe Meraz PA-C [Primary Care Provider] - 1 Week Provider Discharge Instructions Diet: Diet as Tolerated Activity: Wheelchair and Walker Skin/Wound/Dressing Care Skin care: home health order Other wound treatment: home health order for wound care Discharge Data Primary Care Provider: Gabe Meraz Attending Provider: Mariela Lewis Admit Date/Time: 07/05/18 17:19
--- NOTE | 2018-07-07 14:39 | CM.DPC ---
Left VM with Eloisa Martinez @[facility] regarding possible help with transport getting Mr Fitzgerald home. Left her my phone number ans Alma Rosa ORDONEZ's phone number to call back.
--- NOTE | 2018-07-07 15:56 | DI.RAD.S_ITS ---
PROCEDURE: XR PELVIS 1-2V INDICATIONS: GLF TECHNIQUE: 3 images are submitted. Only frontal views of the pelvis were obtained. COMPARISON: [facility], , PELVIS W UNILATERAL HIP RIGHT, 05/27/2015, 15:51. FINDINGS: No displaced pelvic fractures are identified. Moderate degenerative changes of the bilateral hips (left greater than right) and postoperative changes of the proximal femurs are again evident. No suspicious osseous lesions are present. Degenerative changes of the lower lumbar spine are again noted. Diminished soft tissues are within normal limits. IMPRESSION: 1. No displaced pelvic fractures. If there is high clinical concern for an acute pelvic fracture, CT is recommended for further evaluation. 2. Postoperative and degenerative changes of the hips are similar to the prior study. Dictated by: Sea Evans M.D. on 07/07/2018 at 15:41 Approved by: Sea Evans M.D. on 07/07/2018 at 15:43
--- NOTE | 2018-07-07 15:56 | DI.RAD.S_ITS ---
PROCEDURE: XR KNEE LT 1TO2V INDICATIONS: GLF TECHNIQUE: 2 views of the knee were acquired. COMPARISON: [facility], , KNEE 3V LEFT, 08/18/2008, 23:47. FINDINGS: This patient is positioned in flexion on both the lateral and frontal view, resulting in difficulty evaluating for subtle bony abnormalities. No definite displaced acute fracture is identified. Severe tricompartmental degenerative changes of the knee are most pronounced within the medial compartment and had noted to progressed in the interim. Loose intra-articular joint bodies are present. There likely is a small knee joint effusion. IMPRESSION: 1. Severe degenerative changes of the left knee have progressed in the interim. 2. No displaced fractures are evident. If there is clinical concern for an acute fracture, CT is recommended for further evaluation. 3. Intra-articular joint bodies. Dictated by: Sea Evans M.D. on 07/07/2018 at 15:38 Approved by: Sea Evans M.D. on 07/07/2018 at 15:40
--- NOTE | 2018-07-07 16:31 | PC.NURSE ---
Pt is A&O x3, pleasant and cooperative w/ staff. During shift change report patient was placed on BSC, call light w/ in reach and was told to use when finished. Patient attempted to get up w/ out calling for assistance and fell, slipping in own urine that was all over the floor. No urine was noted to have made it into BSC. Using blaine lift patient was brought back to bed. Pt c/o pain in left hip and knee. Dr. Lewis was contact ADAM regarding fall of patient and current complaints. STAT xray was ordered of left hip/pelvic and knee. Dr. Lewis stated pending results patient should still be a candidate for d/c this evening. Xray results are pending.
[2018-07-07] MEDS: MORPHINE 2 MG/ML INJ IV (19:56)
--- NOTE | 2018-07-09 07:41 | CM.DPC ---
Patient refused [facility] Faxed to and called [facility]
--- NOTE | 2018-07-09 08:12 | CM.DPC ---
DCP Home with HH Return call from Pina at [facility] who confirms that they can open the pt to service and aware that he discharged home yesterday and SW updated that pt's preference is a male RN for HH if available and [facility] will try to accommodate. Plan: [facility] to open the patient up to service by Wednesday07/11/18 and will try to accommodate pt's request of a male RN. JOSÉ LUIS Leon
--- NOTE | 2018-08-17 10:28 | PC.NURSE ---
Wound Ostomy Nurse Consult Note with Wound Care Provider, Dr. Scott Moncada Mr. Fitzgerald awake in bed not wearing any clothing. He is morbidly obese . He did have a bed sheet over himself. He states he is feeling better. He states he has a wound on his scrotum and left buttocks. Mr. Fitzgerald got out of bed with assistance and bend over his bed so we could examine his wound. He is too big to turn on his side to examine his wound. Mr. Fitzgerald has multiple scattered opened areas on his scrotum and buttocks which he states he has had for a long time and in fact he was being seen at the [facility] for these over the last several years. Mr. Fitzgerald wounds are full thickness wounds. The largest wound on his scrotum measures approximately 2.0cm x 1.5cm x 0.2cm. This wound seems to be created from pressure. Mr. Fitzgerald states he sits all day. The base of the wound has beefy red base. The edges are attached. There was no dressing in place and he is unsure if there is drainage. He states there is some pain but not enough pain that makes him want to shift his weight. The sarah- wound skin is without redness, yet there are several partial thickness wounds as well. His largest Left buttock wound measures approximately 2.0x 1.0x 0.2cm. This is a full thickness wound that is also probably created from pressure. The wound base if beefy red, moist. The edges are attached. There was no dressing in place. Again he states he does have some pain, but does not move to relieve pain. The sarah-wound skin is without redness but there are several small partial thickness wounds. We discussed with patient the need to off-load these areas, by getting out of bed or his chair every 1/2 hour to relieve the pressure from his scrotum and buttocks. He states he tries, but this seems difficult for him. We suggest that he come back to the wound care center so we can help with patient education for off-loading, healing and prevention of further wounds. We told the nursing staff to clean the wounds with Normal Saline and apply a hydrocolloid dressing to promote wound healing.
== END 2018-07-07 20:02 | disposition home or self-care (01) | DRG 189 ==
LOC: ED 17:03 → AC 07-06 09:28
PROVIDERS: Admitting Provider Internal Medicine; Emergency Provider Emergency Medicine; Family Provider Physician Assistant; PCP Physician Assistant; Visit Provider Internal Medicine
DX: J81.0 Acute pulmonary edema (principal); L89.893 Pressure ulcer of other site, stage 3; L89.323 Pressure ulcer of left buttock, stage 3; J45.901 Unspecified asthma with (acute) exacerbation; Z68.45 Body mass index [BMI] 70 or greater, adult; F11.20 Opioid dependence, uncomplicated; E66.01 Morbid (severe) obesity due to excess calories; F41.9 Anxiety disorder, unspecified; L89.629 Pressure ulcer of left heel, unspecified stage; L89.619 Pressure ulcer of right heel, unspecified stage
CPT/HCPCS: 36415; 36591; 71045; 72170; 73560; 80048; 81003; 81015; 83880; 84484; 85025; 93005; 93010; 94640; 94760; 99283; 99285; J1100; J2060; J2270; J7613

== ENCOUNTER 2018-07-11 08:15 | Emergency (ER) | payer MEDICAID, OTHER, SELFPAY ==
[2018-07-05 18:38] VITALS: BMI 76.6
--- NOTE | 2018-07-11 08:25 | ED.GENADULT ---
HPI - General Adult General Chief complaint: Anxiety Stated complaint: lower body feels weird Time Seen by Provider: 07/11/18 08:25 Source: patient Mode of arrival: wheelchair Limitations: no limitations History of Present Illness HPI narrative: 37-year-old male who I have seen in the emergency department here a few days ago admitted for an asthma exacerbation and also anxiety here for worsening of his anxiety. He was here for 2 days during his last admission was discharged home. He states that he has not been on his anxiety medication. He has appointment with his mental health provider on of this week and states he cannot get a refill until then. He states that he is on 10 mg of prednisone in the morning and also at night. This was not changed after his last hospital stay. He states that he has been using his inhalers at home with. He states that ?my whole body feels weird? patient states this is his anxiety causing this. Related Data Home Medications Medication Instructions Recorded Confirmed methadone 95 mg PO QDAY #0 05/07/17 07/05/18 albuterol sulfate 3 ml INH Q4HP PRN 01/28/18 07/05/18 prednisone 10 mg PO BID 01/28/18 07/05/18 albuterol sulfate [Ventolin HFA] 2 - 4 puff INH SEE INSTRUCTIONS PRN 02/04/18 07/05/18 Previous Rx's Medication Instructions Recorded fluticasone-salmeterol [Advair 1 puff INH BID #2 inh 04/28/17 Diskus] olanzapine [Zyprexa Zydis] 10 mg PO BID #60 tab 07/07/18 prednisone 80 mg PO DAILY #12 tab 07/07/18 albuterol sulfate 2 puff INHALATION Q4-6H PRN #18 07/11/18 gram lorazepam [Ativan] 1 mg PO BID-TID PRN #10 tab 07/11/18 olanzapine [Zyprexa] 20 mg PO DAILY #30 tab 07/11/18 Allergies Allergy/AdvReac Type Severity Reaction Status Date / Time NSAIDS (Non-Steroidal Allergy Unknown ASTHMA Verified 06/24/18 08:44 Anti-Inflamma FLARE UPS [NSAIDS (NON-STEROIDAL ANTI-INFLAMMA] ibuprofen AdvReac Mild nausea, GI Verified 06/24/18 08:44 upset Review of Systems Constitutional Denies fever(s) Cardiovascular Denies chest pain and Reports dyspnea Respiratory Reports cough, Reports dyspnea and Reports wheezing Gastrointestinal Gastrointestinal: Denies abdominal pain, Denies nausea and Denies vomiting Musculoskeletal Denies myalgias, Denies arthralgias and Reports tingling (All over) Integumentary/Breasts Denies rash Neurologic Reports tingling (All over) Hematologic/Lymphatic Denies easy bleeding and Denies easy bruising Allergic/Immunologic Reports wheezing [facility] Medical History Anxiety (Acute) Asthma (Acute) Methadone use disorder, mild, in controlled environment (Chronic) Morbid obesity (Chronic) Surgical History H/O vertebral fracture repair (Chronic) History of hip surgery (Chronic) Family History Mother Diabetes mellitus Social History household members: significant other Smoking Status: Never smoker Exam Initial Vital Signs Initial Vital Signs: Vital Signs Temperature 98.4 F 07/11/18 08:28 Pulse Rate 108 H 07/11/18 08:28 Respiratory Rate 22 07/11/18 08:28 Blood Pressure 157/72 H 07/11/18 08:28 Pulse Oximetry 97 07/11/18 08:28 Const General: anxious, diaphoretic and No ill appearing Nutritional Appearance: obese Orientation: alert, awake and oriented x3 HENMT Head: normal to inspection and normocephalic Resp Effort & Inspection: normal respiratory effort Auscultation: rhonchi and wheezes Cardio Rate: regular rate Rhythm: regular rhythm GI Palpation: soft Skin Lesions: no lesions Neuro General: alert, awake and oriented x3 Extrem General: normal to inspection and capillary refill normal Psych Appearance: well kempt Speech and Movement: restless Mood: anxious mood Affect: sad and No irritable affect Attitude: cooperative Course Orders Ordered: Discontinued Medications Albuterol/Ipratropium (Duoneb) 3 ml INH NOW ONE Stop: 07/11/18 08:33 Last Admin: 07/11/18 08:49 Dose: 3 ml Albuterol/Ipratropium (Duoneb) 3 ml INH NOW ONE Stop: 10/22/18 08:33 Last Admin: 07/11/18 08:54 Dose: 3 ml Albuterol/Ipratropium (Duoneb) 3 ml INH NOW ONE Stop: 07/11/18 08:34 Last Admin: 07/11/18 09:01 Dose: 3 ml Dexamethasone (Decadron) 10 mg PO NOW ONE Stop: 07/11/18 08:34 Last Admin: 07/11/18 08:45 Dose: 10 mg Lorazepam (Ativan) 1 mg PO NOW ONE Stop: 07/11/18 08:34 Last Admin: 07/11/18 08:41 Dose: 1 mg Olanzapine (Zyprexa Zydis) 20 mg PO NOW ONE Stop: 07/11/18 08:34 Last Admin: 07/11/18 08:42 Dose: 20 mg Vital Signs - 8 hr 07/11/18 08:28 07/11/18 08:50 07/11/18 08:54 Temperature 98.4 F Pulse Rate 108 H Respiratory Rate 22 Blood Pressure 157/72 H Pulse Oximetry 97 95 93 07/11/18 09:01 Temperature Pulse Rate Respiratory Rate Blood Pressure Pulse Oximetry 99 Medical Decision Making MDM Narrative Medical decision making narrative: Patient received 3 DuoNeb here in the emergency department. He was not tachypneic. Not hypoxic. Does have some coarse breath sounds bilaterally. He is on prednisone daily. We did discuss increasing his prednisone for the next 7 days. No indication for admission to the hospital today. Patient was also given Zyprexa and Ativan. I informed him that I would refill these medications for him. He does have a follow-up with his mental health provider on . No indication for admission for this issue was well. Patient did want admission for ?to be safe ?however he does not meet any admission criteria. I did discuss this with him. He was given return precautions. Discharge Plan Departure Patient Disposition: Home Clinical Impression: Anxiety, Asthma Instructions: Anxiety Disorders, Anxiety and Panic Attacks (Alternative Therapy), DI for Anxiety -- Adult Activity Restrictions/Additional Instructions: I would recommend that you increase your prednisone to 20 mg in the morning and 20 mg at night for the next 7 days. You need to keep your appointment that you have with your mental health provider on . Return to the emergency department for any new or worsening symptoms Prescriptions: New lorazepam [Ativan] 1 mg tablet 1 mg PO BID-TID PRN (Reason: anxiety) Qty: 10 RF: 0 albuterol sulfate 90 mcg/actuation HFA aerosol inhaler 2 puff INHALATION Q4-6H PRN (Reason: shortness of breath or wheezing) Qty: 18 RF: 0 olanzapine [Zyprexa] 20 mg tablet 20 mg PO DAILY Qty: 30 RF: 0 No Action fluticasone-salmeterol [Advair Diskus] 500 MCG/50 MCG blister with device 1 puff INH BID Qty: 2 RF: 5 methadone 10 MG tablet 95 mg PO QDAY Qty: 0 RF: 0 prednisone 10 MG tablet 10 mg PO BID RF: 0 albuterol sulfate 2.5 MG/3 ML solution for nebulization 3 ml INH Q4HP PRN (Reason: Wheezing) RF: 0 prednisone 20 mg Tablet 80 mg PO DAILY Qty: 12 RF: 0 olanzapine [Zyprexa Zydis] 10 mg Tablet,Disintegrating 10 mg PO BID Qty: 60 RF: 0 albuterol sulfate [Ventolin HFA] 90 MCG/PUFF HFA aerosol inhaler 2 - 4 puff INH SEE INSTRUCTIONS PRN (Reason: Wheezing) RF: 0
[2018-07-11 08:28] VITALS: BP 157/72; PULSE 108; RESP 22; TEMP 36.9; O2SAT 97
[2018-07-11] MEDS: LORazepam 1 MG TABLET PO (08:41)
[2018-07-11] MEDS: OLANZapine ODT 10 MG TAB 20 MG PO (08:42)
[2018-07-11] MEDS: DEXAMETHASONE 10 MG/ML VIAL PO (08:45)
[2018-07-11] MEDS: ALBUTEROL/IPRATROPIUM 3 ML AMPUL INH ×3 (08:49→09:01)
[2018-07-11 08:50] VITALS: O2SAT 95
[2018-07-11 08:54] VITALS: O2SAT 93
[2018-07-11 09:01] VITALS: O2SAT 99
[2018-07-11 10:28] VITALS: BP 135/87; PULSE 107; RESP 18; O2SAT 90
== END 2018-07-11 10:33 | disposition home or self-care (01) ==
PROVIDERS: Emergency Provider Emergency Medicine; Family Provider Physician Assistant; PCP Physician Assistant
DX: F41.9 Anxiety disorder, unspecified (principal); J45.909 Unspecified asthma, uncomplicated
CPT/HCPCS: 94640; 99282; 99283; J1100

== ENCOUNTER 2018-07-23 08:50 | Inpatient (IN) | payer MEDICAID, OTHER, SELFPAY ==
[2018-07-05 18:38] VITALS: BMI 76.6
[2018-07-23] VITALS (15 sets, daily range): BP systolic 114–139; BP diastolic 51–79; PULSE 95–123; RESP 18–22; TEMP 36.8–37.1; O2SAT 87–98; BMI 84.1
--- NOTE | 2018-07-23 09:03 | DI.RAD.S_ITS ---
PROCEDURE: XR CHEST 1V INDICATIONS: anxious, sob, hx asthma TECHNIQUE: One view of the chest was acquired. COMPARISON: [facility], CR, XR CHEST 1V, 07/05/2018, 12:39. FINDINGS: Surgical changes and devices: None. Lungs and pleura: No pleural effusions or pneumothorax. Mild residual groundglass opacities although improved since 07/05/18. Mediastinum: Mediastinal contours appear normal. Heart size is normal. Bones and chest wall: No suspicious bony lesions. Overlying soft tissues appear unremarkable. IMPRESSION: Improved pulmonary edema. No new focal consolidation. Dictated by: Guillaume Greco M.D. on 07/23/2018 at 9:30 Approved by: Guillaume Greco M.D. on 07/23/2018 at 9:33
--- NOTE | 2018-07-23 09:05 | ED.ANXIETY ---
HPI - Anxiety General Chief Complaint: Upper Respiratory Symptoms Stated Complaint: Anxiety,chest pain,body hurts Time Seen by Provider: 07/23/18 09:02 Source: patient and old records reviewed Mode of arrival: wheelchair Limitations: no limitations History of Present Illness HPI narrative: This is a 37-year-old male who comes to the emergency department with complaint of shortness of breath and anxiety. Patient states he has chronic anxiety. He was recently started on olanzapine on his last ER visit and has continued with his primary care physician. He states that he ran out several days ago and is having pretty severe symptoms. He is feeling short of breath he does complain of a little bit of chest pain. He denies any fevers. He denies any cough cold or congestion. He has not used any albuterol or neb treatments today. He does have known asthma and typically needs albuterol daily. He is not having any nausea or vomiting. No new swelling in his lower extremities. No abdominal pain or other new changes. Related Data Home Medications Medication Instructions Recorded Confirmed methadone 95 mg PO QDAY #0 05/07/17 07/23/18 albuterol sulfate 3 ml INH Q4HP PRN 01/28/18 07/23/18 prednisone 10 mg PO BID 01/28/18 07/05/18 Previous Rx's Medication Instructions Recorded fluticasone-salmeterol [Advair 1 puff INH BID #2 inh 04/28/17 Diskus] olanzapine [Zyprexa Zydis] 10 mg PO BID #60 tab 07/07/18 prednisone 80 mg PO DAILY #12 tab 07/07/18 albuterol sulfate 2 puff INHALATION Q4-6H PRN #18 07/11/18 gram Allergies Allergy/AdvReac Type Severity Reaction Status Date / Time NSAIDS (Non-Steroidal Allergy Unknown ASTHMA Verified 07/23/18 09:56 Anti-Inflamma FLARE UPS [NSAIDS (NON-STEROIDAL ANTI-INFLAMMA] ibuprofen AdvReac Mild nausea, GI Verified 07/23/18 09:56 upset Review of Systems Review of Systems All systems reviewed & are unremarkable except as noted in HPI and below Constitutional Denies chills, Denies fatigue and Denies fever(s) Cardiovascular Reports chest pain, Denies syncope, Denies edema, Denies palpitations and Reports dyspnea Respiratory Denies chest congestion, Denies cough, Reports dyspnea and Reports wheezing Gastrointestinal Gastrointestinal: Denies abdominal pain, Denies change in bowel habits, Denies diarrhea, Denies nausea and Denies vomiting Genitourinary Denies difficulty urinating Neurologic Denies syncope Endocrine Denies fatigue and Denies palpitations Allergic/Immunologic Reports wheezing REPLACED BY [facility] Medical History Anxiety (Acute) Asthma (Acute) Methadone use disorder, mild, in controlled environment (Chronic) Morbid obesity (Chronic) Surgical History H/O vertebral fracture repair (Chronic) History of hip surgery (Chronic) Social History household members: significant other Smoking Status: Never smoker Exam Narrative Exam Narrative: GEN: morbidly obese male, alert and oriented x 3, patient appears to be in mild distress. HEENT: Atraumatic, pupils are equal round reactive to light, extraocular movements are intact, nares are clear, Throat is clear without any exudates, erythema, tonsillar enlargement or uvular deviation HEART: tachycardic butRegular rate and rhythm without murmur, clicks, rubs. Patient has what appear to be chronic stasis changes in the lower extremities but no edema. LUNGS:Lungs decreased bilaterally, mild expiratory wheezes noted. No rales or crackles although auscultation is difficult 2nd to habitus. Chest moves symmetrically. No tachypnea appreciated. No accessory muscle use. Patient speaks in full sentences. ABD:bowel sounds normal, soft, non-tender, no guarding, rebound, rigidity, no masses noted, no hepatosplenomegaly MSCL: Non-tender, no muscle atrophy, full range of motion NEURO:CN 2-12 intact, sensation normal Initial Vital Signs Initial Vital Signs: Vital Signs Temperature 98.5 F 07/23/18 08:50 Pulse Rate 123 H 07/23/18 08:50 Respiratory Rate 20 07/23/18 08:50 Blood Pressure 139/51 L 07/23/18 08:50 Pulse Oximetry 87 L 07/23/18 08:50 Course Orders Ordered: ED Orders 07/23/18 09:03 XR chest 1V Stat 07/23/18 09:08 Urine Culture Stat Urine Microscopic Stat 07/23/18 09:15 B Type Natriuretic Peptide Stat Complete Blood Count AUTO DIFF Stat Comprehensive Metabolic Panel Stat Lipase Stat Partial Thromboplastin Time Stat Prothrombin Time INR Stat Troponin & CK Cardiac Panel Stat 07/23/18 10:52 Measure peak expiratory flow ONCE 07/23/18 11:01 Arterial Blood Gas Stat Discontinued Medications Albuterol (Ventolin) 5 mg INH NOW ONE Stop: 07/23/18 09:42 Last Admin: 07/23/18 09:52 Dose: 5 mg Albuterol/Ipratropium (Duoneb) 3 ml INH NOW ONE Stop: 07/23/18 09:03 Last Admin: 07/23/18 09:07 Dose: 3 ml Lorazepam (Ativan) 1 mg PO NOW ONE Stop: 07/23/18 10:53 Last Admin: 07/23/18 10:59 Dose: 1 mg Methylprednisolone (Solu-Medrol 125 Mg Vial) 125 mg IV NOW ONE Stop: 07/23/18 09:38 Last Admin: 07/23/18 09:47 Dose: 125 mg Olanzapine (Zyprexa Zydis) 10 mg PO NOW ONE Stop: 07/23/18 09:03 Last Admin: 07/23/18 09:47 Dose: 10 mg Vital Signs - 8 hr 07/23/18 08:50 07/23/18 09:08 07/23/18 09:52 Temperature 98.5 F Pulse Rate 123 H 116 H 115 H Respiratory Rate 20 21 21 Blood Pressure 139/51 L Blood Pressure [Left Arm] 137/73 Pulse Oximetry 87 L 98 07/23/18 09:53 07/23/18 10:41 07/23/18 11:01 Temperature Pulse Rate 112 H 112 H 111 H Respiratory Rate 20 22 20 Blood Pressure Blood Pressure [Left Arm] 130/73 Pulse Oximetry 97 96 89 L 07/23/18 11:50 Temperature 98.3 F Pulse Rate 107 H Respiratory Rate 20 Blood Pressure 114/59 L Blood Pressure [Left Arm] Pulse Oximetry 95 MDM - Anxiety Lab Data Result diagrams: 07/23/18 09:15 07/23/18 09:15 Lab Results 07/23/18 07/23/18 07/23/18 Range/Units 09:08 09:15 09:15 WBC (4.5-11.0) X10^3/uL RBC (4.5-5.9) X10^6/uL Hgb (13.5-17.5) g/dL Hct (41-53) % MCV (80-100) fL MCH (26-34) PG MCHC (30-36) % RDW (11.6-14.8) % Plt Count (150-400) X10^3/uL Neut % (Auto) (50-75) % Lymph % (Auto) (25-40) % [place] % (Auto) (3-14) % Eos % (Auto) (2-4) % Baso % (Auto) (0-2) % Neut # (Auto) (0970-2594) /uL PT 13.7 H (10.1-12.7) SECONDS INR 1.3 (0.9-1.3) APTT 25 L (26.4-36.2) SECONDS ABG pH (7.35-7.45) ABG pCO2 (35-45) mmHg ABG pO2 (80-105) mmHg ABG HCO3 (23-27) mmol/L ABG Total CO2 (23-27) mmol/L ABG O2 Saturation (95-100) % ABG Base Excess (-2-3) mmol/L FiO2 Sodium (137-145) mmol/L Potassium (3.4-5.1) mmol/L Chloride (98-107) mmol/L Carbon Dioxide (22-32) mmol/L BUN (9-20) mg/dL Creatinine (0.66-1.25) mg/dL Estimated GFR (>60) mL/min BUN/Creatinine Ratio (6-22) Glucose (70-100) mg/dL Calcium (8.4-10.2) mg/dL Total Bilirubin (0.2-1.3) mg/dL AST (17-59) IU/L ALT (21-72) IU/L Alkaline Phosphatase (38-126) U/L Total Creatine Kinase (55-170) U/L CK-MB (CK-2) CK-MB (CK-2) Rel Index Troponin I (0.01-0.034) ng/mL B-Natriuretic Peptide < 100.0 (<100) Total Protein (6.3-8.2) g/dL Albumin (3.5-5.0) g/dL Globulin (1.7-4.1) g/dL Albumin/Globulin Ratio (1.0-2.8) Lipase (23-300) U/L Urine RBC 30-100/hpf H (0-5/HPF) Urine WBC None seen (0-5/HPF) Amorphous Sediment 3+ Urine Bacteria Moderate (10-30) H (None) Ur Culture Indicated? Specimen cultured Micro UA Comment Not Reportable 07/23/18 07/23/18 07/23/18 Range/Units 09:15 09:15 11:01 WBC 8.2 (4.5-11.0) X10^3/uL RBC 4.42 L (4.5-5.9) X10^6/uL Hgb 11.2 L (13.5-17.5) g/dL Hct 35.7 L (41-53) % MCV 80.9 (80-100) fL MCH 25.3 L (26-34) PG MCHC 31.2 (30-36) % RDW 16.9 H (11.6-14.8) % Plt Count 184 (150-400) X10^3/uL Neut % (Auto) 84.3 H (50-75) % Lymph % (Auto) 10.4 L (25-40) % [place] % (Auto) 5.0 (3-14) % Eos % (Auto) 0.0 L (2-4) % Baso % (Auto) 0.3 (0-2) % Neut # (Auto) 6900 H (4020-1847) /uL PT (10.1-12.7) SECONDS INR (0.9-1.3) APTT (26.4-36.2) SECONDS ABG pH 7.37 (7.35-7.45) ABG pCO2 58.6 H (35-45) mmHg ABG pO2 47 L* (80-105) mmHg ABG HCO3 34 H (23-27) mmol/L ABG Total CO2 35 H (23-27) mmol/L ABG O2 Saturation 80 L* (95-100) % ABG Base Excess 8.0 H (-2-3) mmol/L FiO2 21 Sodium 143 (137-145) mmol/L Potassium 3.8 (3.4-5.1) mmol/L Chloride 102 (98-107) mmol/L Carbon Dioxide 33 H (22-32) mmol/L BUN 7 L (9-20) mg/dL Creatinine 0.60 L (0.66-1.25) mg/dL Estimated GFR > 60.0 (>60) mL/min BUN/Creatinine Ratio 11.7 (6-22) Glucose 141 H (70-100) mg/dL Calcium 7.9 L (8.4-10.2) mg/dL Total Bilirubin 0.6 (0.2-1.3) mg/dL AST 15 L (17-59) IU/L ALT 14 L (21-72) IU/L Alkaline Phosphatase 81 (38-126) U/L Total Creatine Kinase 35 L (55-170) U/L CK-MB (CK-2) TNP CK-MB (CK-2) Rel Index TNP Troponin I < 0.012 (0.01-0.034) ng/mL B-Natriuretic Peptide (<100) Total Protein 7.2 (6.3-8.2) g/dL Albumin 3.6 (3.5-5.0) g/dL Globulin 3.6 (1.7-4.1) g/dL Albumin/Globulin Ratio 1.0 (1.0-2.8) Lipase 13 L (23-300) U/L Urine RBC (0-5/HPF) Urine WBC (0-5/HPF) Amorphous Sediment Urine Bacteria (None) Ur Culture Indicated? Micro UA Comment Urine Dip Bedside Urine Glucose Negative Bedside Urine Bilirubin - Negative Bedside Urine Ketone - Negative Urine Specific Chunky 1.015 Bedside Urine Occult Blood +++ Bedside Urine pH 8.5 Bedside Urine Protein - Negative Bedside Urine Urobilinogen 1+ 2mg Bedside Urine Nitrite - Negative Bedside Urine Leukocytes - Negative Esterase ABG Data ABG results: PH of 7.36, pCO2 of 58, PO2 of 47 with a bicarb of 33. Patient was on room air. Patient does have a hypoxia on ABG although this may be venous blood or mixed. he has a respiratory acidosis, appears to have compensation metabolically. Attestation: I personally reviewed and interpreted this ABG as follows: Interpretation: Imaging Data Chest x-ray: Radiologist's impression: [address] [address] XRay Report Signed Patient: Babatunde Fitzgerald KMR#: [id number] : 1980Acct:[id number] Age/Sex: 37 / MDate of Service: 07/23/18 Loc: ED Accession Number: [id number] Procedure: XR chest 1V Ordering Provider: Concepcion Damian D.O. PROCEDURE: XR CHEST 1V INDICATIONS: anxious, sob, hx asthma TECHNIQUE: One view of the chest was acquired. COMPARISON: [facility], CR, XR CHEST 1V, 07/05/2018, 12:39. FINDINGS: Surgical changes and devices: None. Lungs and pleura: No pleural effusions or pneumothorax. Mild residual groundglass opacities although improved since 07/05/18. Mediastinum: Mediastinal contours appear normal. Heart size is normal. Bones and chest wall: No suspicious bony lesions. Overlying soft tissues appear unremarkable. IMPRESSION: Improved pulmonary edema. No new focal consolidation. ECG Data Attestation: I personally reviewed and interpreted this ECG as follows: Prior ECG tracings: available for review Interpretation: Sinus tachycardia with a rate of 118, P are 163, QRS of 117 and QTC of 417. no ST elevation appreciated. Patient has a right bundle branch block. ST segments appears similar to prior. EKGs reviewed from 07/05/2018 as well as additional EKGs from June 2018. MDM Narrative Medical decision making narrative: Recheck after neb and patient is feeling his breathing is easier. His heart rate slightly improved but elevates again when he tries to urinate with urinal in the room. He continues to be hypoxic in low-mid 80's on RA. Patient does cpap at home with 1L oxygen but no other oxygen. Patient given 2 additional albuterol nebs and solumedrol and re-evaluate. He asked again about olanzapine which as been ordered. Patient states he left his rx at his aunt's house in [place] by accident which is why he had ran out. He had received a Rx recently from ER and states that it has been helping. Recheck after 3rd neb, patient is still hypoxic. He drops to 83% when attempts to transfer off oxygen. On 3L N/C. Spoke with Dr. Richardson, he accepts. Asks for ABG and peak flow. Patient seems slighty improved after olanzapine but suspect some of anxiety is more related to hypoxia at this time. Labs show low calcium, stable anemia, trop negative. glucose slightly elevated. CXR-pulm edema improved from prior, no signs of infection. Discharge Plan Departure Patient Disposition: Admitted as Observation Clinical Impression: Asthma with acute exacerbation Discharge Date/Time: 07/23/18 11:32 Interventions: ED Discharge Assessment Last Done: 07/23/18 11:14 Admit Date/Time: 07/23/18 10:54 Admit Provider: Otoniel Richardson
[2018-07-23] MEDS: ALBUTEROL/IPRATROPIUM 3 ML AMPUL INH (09:07)
--- NOTE | 2018-07-23 09:09 | PC.NURSE ---
on arrival, requested urinal right away, provided, tolerated well, pt with strong smell of incontinent, pt denies, states, its just for sweating.
[2018-07-23 09:40] LABS: Add Manual Diff / Slide Review NO; Basophils Percent Auto 0.3 % (0-2); Hematocrit 35.7 % (41-53); Hemoglobin 11.2 g/dL (13.5-17.5); Lymphocytes Percent Auto 10.4 % (25-40); Mean Corpuscular HGB Conc 31.2 % (30-36); Mean Corpuscular Hemoglobin 25.3 PG (26-34); Mean Corpuscular Volume 80.9 fL (80-100); Neutrophils Absolute Auto 6900 /uL (3000-5900); Neutrophils Percent Auto 84.3 % (50-75); Platelet Count 184 X10^3/uL (150-400); Red Blood Cell Count 4.42 X10^6/uL (4.5-5.9); Red Cell Distribution Width 16.9 % (11.6-14.8); White Blood Cell Count 8.2 X10^3/uL (4.5-11.0)
[2018-07-23 09:40] LABS: WBC Urine None Seen (0-5/HPF)
[2018-07-23 09:44] LABS: Amorphous Sediment Urine 3+; Bacteria Urine Moderate (10-30); Culture Indicated Urine Specimen Cultured; RBC Urine 30-100/HPF (0-5/HPF)
[2018-07-23] MEDS: methylPREDNISolone 125 MG/2 ML VIAL IV (09:47)
[2018-07-23] MEDS: OLANZapine ODT 10 MG TAB PO ×2 (09:47→21:45)
--- NOTE | 2018-07-23 09:48 | PC.NURSE ---
ra sat 87%, pt sitting up , remain alert and awake. pt recieving double albuterol, breathing treatment
[2018-07-23 09:50] LABS: Alanine Aminotransferase 14 IU/L (21-72); Albumin 3.6 g/dL (3.5-5.0); Alkaline Phosphatase 81 U/L (38-126); Aspartate Aminotransferase 15 IU/L (17-59); BUN Creatinine Ratio 11.7 (6-22); Bilirubin Total 0.6 mg/dL (0.2-1.3); Blood Urea Nitrogen 7 mg/dL (9-20); Calcium 7.9 mg/dL (8.4-10.2); Carbon Dioxide 33 mmol/L (22-32); Chloride 102 mmol/L (98-107); Creatine Kinase 35 U/L (55-170); Estimated Glomerular Filt Rate > 60.0 mL/min (>60); Globulin 3.6 g/dL (1.7-4.1); Glucose 141 mg/dL (70-100); HEMOLYSIS 20 (0-50); Lipase 13 U/L (23-300); Potassium 3.8 mmol/L (3.4-5.1); Sodium 143 mmol/L (137-145); Total Protein 7.2 g/dL (6.3-8.2)
--- NOTE | 2018-07-23 09:51 | PC.NURSE ---
pt recieving breathing treatment. tolerating well. medicated as ordered.
[2018-07-23 09:52] LABS: INR 1.3 (0.9-1.3); PTT Partial Thromboplastin Tim 25 SECONDS (26.4-36.2); Prothrombin Time 13.7 SECONDS (10.1-12.7)
[2018-07-23] MEDS: ALBUTEROL 2.5 MG/3 ML NEB (ADULT) 5 MG INH (09:52)
--- NOTE | 2018-07-23 09:53 | PC.NURSE ---
recieving breathing treatment, double dose of albuterol. 5mg
--- NOTE | 2018-07-23 09:55 | PC.NURSE ---
pt expressing wanting to be admitted for respiratory treatment.
[2018-07-23 10:05] LABS: Troponin I < 0.012 ng/mL (0.01-0.034)
[2018-07-23 10:07] LABS: B Type Natriuretic Peptide < 100.0 (<100)
--- NOTE | 2018-07-23 10:38 | PC.NURSE ---
dr cahmbers states, pt transfer self from wheelchair to stretcher, noted oxygen sat RA dropped to 83% with good pleth, oxygen 3lpm via nc applied. sat 97%
[2018-07-23] MEDS: LORazepam 0.5 MG TABLET 1 MG PO (10:59)
--- NOTE | 2018-07-23 11:02 | PC.NURSE ---
obtaining abg in progress. pt remain alert and awake, calm and cooperative, skin warm dry pink.
[2018-07-23 11:24] LABS: PCO2 ABG 58.6 mmHg (35-45); pH ABG 7.37 (7.35-7.45)
[2018-07-23 11:25] LABS: Fractionated Inspired Oxygen 21; HCO3 ABG 34 mmol/L (23-27); Oxygen Saturation ABG 80 % (95-100); PO2 ABG 47 mmHg (80-105); TCO2 ABG 35 mmol/L (23-27)
--- NOTE | 2018-07-23 12:31 | PM.HP.1 ---
History of Present Illness Date Patient Seen: 07/23/18 Time Patient Seen: 12:31 Chief complaint: Anxiety,chest pain,body hurts Narrative: Complaints of acute onset difficulty breathing. He has known asthma is on chronic inhaler therapy and was a woken this morning about 3:00 a.m. with increasing shortness of breath could not catch his breath. He has been noting some increased cough and sputum production over the last several days also. He states compliance with his inhalers Patient History Medical History Anxiety (Acute) Asthma (Acute) Methadone use disorder, mild, in controlled environment (Chronic) Morbid obesity (Chronic) Surgical History H/O vertebral fracture repair (Chronic) History of hip surgery (Chronic) Family & Social History Social History: household members significant other Tobacco & Substance use: Smoking Status Never smoker alcohol intake frequency 0-2 drinks per day Substance Use Type marijuana Meds Home Medications Medication Instructions Recorded Confirmed Type fluticasone-salmeterol [Advair 1 puff INH BID #2 inh 04/28/17 07/23/18 Rx Diskus] methadone 95 mg PO QDAY #0 05/07/17 07/23/18 History albuterol sulfate 3 ml INH Q4HP PRN 01/28/18 07/23/18 History prednisone 10 mg PO BID 01/28/18 07/05/18 History olanzapine [Zyprexa Zydis] 10 mg PO BID #60 tab 07/07/18 07/23/18 Rx prednisone 80 mg PO DAILY #12 tab 07/07/18 Rx albuterol sulfate 2 puff INHALATION Q4-6H PRN #18 07/11/18 07/23/18 Rx gram Allergies Allergy/AdvReac Type Severity Reaction Status Date / Time NSAIDS (Non-Steroidal Allergy Unknown ASTHMA Verified 07/23/18 09:56 Anti-Inflamma FLARE UPS [NSAIDS (NON-STEROIDAL ANTI-INFLAMMA] ibuprofen AdvReac Mild nausea, GI Verified 07/23/18 09:56 upset Review of Systems Constitutional Constitutional: Reports system reviewed and no additional complaints, except as documented Eyes Eyes: Reports system reviewed; no additional complaints, except as documented ENT Ears, Nose, Mouth, and Throat: Yes system reviewed; no additional complaints, except as documented Cardiovascular Cardiovascular: Reports system reviewed; no additional complaints, except as documented, Reports shortness of breath and Reports shortness of breath with activity Respiratory Respiratory: Reports change in phlegm color, Reports chest congestion, Reports cough, Reports dyspnea, Reports dyspnea on exertion and Reports wheezing Gastrointestinal Gastrointestinal: Reports system reviewed and no additional complaints, except as documented Genitourinary Genitourinary: Reports system reviewed and no additional complaints, except as documented Musculoskeletal Musculoskeletal: Reports system reviewed; no additional complaints, except as documented Integumentary/Breasts Skin/Breast: Reports system reviewed and no additional complaints, except as documented Neurologic Neurologic: Reports system reviewed and no additional complaints, except as documented Psychiatric Psychiatric: Reports anxiety Endocrine Endocrine: Reports system reviewed and no additional complaints, except as documented Hematologic/Lymphatic Hematologic/Lymphatic: Reports system reviewed and no additional complaints, except as documented Allergic/Immunologic Allergic/Immunologic: Reports system reviewed and no additional complaints, except as documented and Reports wheezing Exam Vital Signs (past 8 hours): - 07/23/18 08:50 07/23/18 09:08 07/23/18 09:52 Temperature 98.5 F Pulse Rate 123 H 116 H 115 H Respiratory Rate 20 21 21 Blood Pressure 139/51 L Blood Pressure [Left Arm] 137/73 Pulse Oximetry 87 L 98 07/23/18 09:53 07/23/18 10:41 07/23/18 11:01 Temperature Pulse Rate 112 H 112 H 111 H Respiratory Rate 20 22 20 Blood Pressure Blood Pressure [Left Arm] 130/73 Pulse Oximetry 97 96 89 L 07/23/18 11:50 Temperature 98.3 F Pulse Rate 107 H Respiratory Rate 20 Blood Pressure 114/59 L Blood Pressure [Left Arm] Pulse Oximetry 95 Oxygen Delivery Method Room Air Oxygen Flow Rate 3 Narrative Exam Narrative: Morbidly obese male he is in some respiratory distress unable to complete sentences Oropharynx clear Neck supple Lungs diffuse wheezing Heart distant heart tones Abdomen obese nontender Extremities stasis dermatitis venous insufficiency bilateral Neuro exam awake alert oriented no focal deficits speech normal Objective Labs Result Diagrams: 07/23/18 09:15 07/23/18 09:15 Labs: Laboratory Results - last 24 hr 07/23/18 07/23/18 07/23/18 09:08 09:15 09:15 WBC RBC Hgb Hct MCV MCH MCHC RDW Plt Count Neut % (Auto) Lymph % (Auto) [place] % (Auto) Eos % (Auto) Baso % (Auto) Neut # (Auto) PT 13.7 H INR 1.3 APTT 25 L ABG pH ABG pCO2 ABG pO2 ABG HCO3 ABG Total CO2 ABG O2 Saturation ABG Base Excess FiO2 Sodium Potassium Chloride Carbon Dioxide BUN Creatinine Estimated GFR BUN/Creatinine Ratio Glucose Calcium Total Bilirubin AST ALT Alkaline Phosphatase Total Creatine Kinase CK-MB (CK-2) CK-MB (CK-2) Rel Index Troponin I B-Natriuretic Peptide < 100.0 Total Protein Albumin Globulin Albumin/Globulin Ratio Lipase Urine RBC 30-100/hpf H Urine WBC None seen Amorphous Sediment 3+ Urine Bacteria Moderate (10-30) H Ur Culture Indicated? Specimen cultured Micro UA Comment Not Reportable 07/23/18 07/23/18 07/23/18 09:15 09:15 11:01 WBC 8.2 RBC 4.42 L Hgb 11.2 L Hct 35.7 L MCV 80.9 MCH 25.3 L MCHC 31.2 RDW 16.9 H Plt Count 184 Neut % (Auto) 84.3 H Lymph % (Auto) 10.4 L [place] % (Auto) 5.0 Eos % (Auto) 0.0 L Baso % (Auto) 0.3 Neut # (Auto) 6900 H PT INR APTT ABG pH 7.37 ABG pCO2 58.6 H ABG pO2 47 L* ABG HCO3 34 H ABG Total CO2 35 H ABG O2 Saturation 80 L* ABG Base Excess 8.0 H FiO2 21 Sodium 143 Potassium 3.8 Chloride 102 Carbon Dioxide 33 H BUN 7 L Creatinine 0.60 L Estimated GFR > 60.0 BUN/Creatinine Ratio 11.7 Glucose 141 H Calcium 7.9 L Total Bilirubin 0.6 AST 15 L ALT 14 L Alkaline Phosphatase 81 Total Creatine Kinase 35 L CK-MB (CK-2) TNP CK-MB (CK-2) Rel Index TNP Troponin I < 0.012 B-Natriuretic Peptide Total Protein 7.2 Albumin 3.6 Globulin 3.6 Albumin/Globulin Ratio 1.0 Lipase 13 L Urine RBC Urine WBC Amorphous Sediment Urine Bacteria Ur Culture Indicated? Micro UA Comment Assessment & Plan Plan: Assessment/Plan Narrative: One. Acute asthma exacerbation his peak flow about 25% of predicted after treatments he has had several treatments in the ER has not improved he has hypoxemia his oxygen saturation 80% on room air by blood gas. PO2 of 40. Patient will be admitted to the hospital as an inpatient for asthma exacerbation and treated with IV steroids IV antibiotics due to the cough and change in sputum for a probably has some bronchitis that triggered this continue with bronchodilator treatments. 2. Anxiety continue with his home medications Zyprexa and Ativan. 3. Acute hypoxic respiratory failure secondary to asthma exacerbation and acute bronchitis 4. 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 Morbid obesity with chronic pCO2 retention probable chronic hypoventilation syndrome
[2018-07-23] MEDS: ALBUTEROL 2.5 MG/3 ML NEB (ADULT) INH ×3 (12:51→21:12)
[2018-07-23] MEDS: LORazepam 1 MG TABLET PO ×2 (13:38→22:29)
[2018-07-23] MEDS: levoFLOXacin 750 MG/150 ML PIGGYBACK 100 MG IV (14:05)
--- NOTE | 2018-07-23 15:42 | PC.NURSE ---
Admission Pt arrived to Rm 225, requesting PO ativan and snack. Let Pt know about no orders from hospitalist yet. Dr Richardson will be in to see Pt shortly, he was made aware of Pt arrival. Pt denies SOB 2L o2 Spo2 96% unable to lay flat, sob at baseline. Pt reporting no skin break down, but when up to use urinal, small blood spot to bedding. Pt is wearing no clothing. Tele in place. IV SL. Admission completed. Methadone in lock box taken to coordinator for safekeeping.
[2018-07-23] MEDS: ENOXAPARIN 40 MG/0.4 ML SYRINGE SUBCUT (17:41)
[2018-07-23] MEDS: methylPREDNISolone 125 MG/2 ML VIAL 80 MG IV (17:42)
[2018-07-23] MEDS: SODIUM CHLORIDE 0.9% FLUSH 10 ML IV (21:45)
[2018-07-24] VITALS (18 sets, daily range): BP systolic 135–156; BP diastolic 72–99; PULSE 74–120; RESP 16–22; TEMP 36.4–37.1; O2SAT 89–96
--- NOTE | 2018-07-24 00:37 | PC.NURSE ---
Addendum entered by Niurka Macdonald CNA 07/24/18 06:24: Continuing to request food and drinks. 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 He said he wanted more katherine crackers and milk. Original Note: Addendum entered by Niurka Macdonald CNA 07/24/18 05:04: Continues to yell out for nurse! instead of using the call light. I explained that he needed to use the call light and it's almost a safety issue when he doesn't because we think someone is hurt or worse when people yelling for help. He wanted grape juice. Original Note: Addendum entered by Niurka Macdonald CNA 07/24/18 04:36: [id number] Patient continuing to call q5 minutes. Yelling out nurse! when he sees me in the hallways. I explained how he should use the call zarate because it helps us identify which room is calling. He said he couldn't find the light. Call light was underneath his chest fold. Patient said his telemetry stickers kept coming off. He then picked them off with me in the room. I said hey they wouldn't come off if you didn't take them off. If you left them alone then they'd stay on and we'd get a good read of your heart. I replaced all the stickers. 2 minutes later ICU called. Said patient was off monitor again. I looked in and the patient had taken off all his telemetry stickers and was holding them in his hand. Explained the importance of the telemetry to patient. Alerted RN Mariel what I had witnessed as well as the ICU. Original Note: Addendum entered by Niurka Macdonald CNA 07/24/18 03:33: Continues to call every 10-15 minutes, sometimes yelling out instead of using the call zarate. Original Note: Patient Babatunde has been calling q3-6 minutes requesting food or drinks. I explained to him that I needed to help other patients and when I tried to put boundaries (per evening RN and evening T[employer]RIST HOME KEEPER), patient then has been calling more frequently for more food, more drinks, and then oh I forgot why I called you. Patient has began to yell out for nurse instead of using the call light saying I can't find the light. Call light was on stomach. Alerted KAILYN Floyd.
[2018-07-24] MEDS: ALBUTEROL 2.5 MG/3 ML NEB (ADULT) INH ×5 (01:44→23:21)
--- NOTE | 2018-07-24 03:40 | PC.NURSE ---
Pt is A and O x 4, VSS, O2 sat on RA= >92%. Pt placed on a food restriction (had been asking for snacks every 15 minutes) by evening shift which produced some attention seeking behaviors by patient. Pt has had multiple requests for neb treatments, inhalers, toileting, snacks, and O2 placement. He does have exp wheezes throughout and he is getting neb treatments but he refused his 0200 Solu-Medrol because he believes it makes him pee if he has it on an empty stomach. O2 per NC placed for comfort and inhaler provided. Neb treatment by RT x 1 this shift. Will give 1 mg Ativan for anxiety and restlessness.
[2018-07-24] MEDS: LORazepam 1 MG TABLET PO ×2 (03:55→21:14)
[2018-07-24] MEDS: METHADONE 10 MG TABLET 95 MG PO (08:30)
[2018-07-24] MEDS: OLANZapine ODT 10 MG TAB PO ×2 (08:31→21:14)
[2018-07-24] MEDS: SODIUM CHLORIDE 0.9% FLUSH 10 ML IV ×2 (08:32→21:14)
[2018-07-24] MEDS: FLUTICASONE/SALMETEROL 500/50 14 PUFF DISKUS INH ×2 (08:47→21:14)
[2018-07-24] MEDS: methylPREDNISolone 125 MG/2 ML VIAL 80 MG IV ×2 (09:45→17:27)
--- NOTE | 2018-07-24 10:40 | PC.NURSE ---
Addendum entered by Verona Liu R.N. 07/24/18 13:35: Dr nj saw Pt and PT ordered. As well as Lasix. Pt refused IV lasix, then called staff back to report SOB. Expressed concern to Pt about his understanding about SOB and Lasix helping with ease of breathing. Pt says'I will take it in a pill only Will update Dr Nj. Original Note: Addendum entered by Verona Liu R.N. 07/24/18 11:23: Add-Discussed concerns with Reshma in case management, provided potential options for ordered snacks/scheduled to keep Pt aware of what is available and given staff a better management in boundary settings. Will discuss with Pt and MD. Original Note: AM shift Pt continues to express frustration if perceived needs are not met nearly immediately. If call light is on more than a few seconds, calling out to visable staff. Educated about importance of using light for safety and giving staff a chance to care for other patients, as many of the calling out is for snacks/nourishment. Pt is tearful, I dont know why you think I am just being annoying, I need food Explained that staff also has to prioritize care for Pt's with actual needs, Pt seems satisfied with this answer. Resting quietly at next check.
--- NOTE | 2018-07-24 11:41 | PM.PN.1 ---
Subjective Date Patient Seen: 07/24/18 Time Patient Seen: 11:30 Interval history: Patient continued to have shortness of breath. He still requires 5 L of nasal cannula oxygen. He was not on oxygen at home prior to hospital admission. He has mild cough. He has no fever. Exam Vital Signs (past 8 hours): - 07/24/18 06:09 07/24/18 07:00 07/24/18 08:00 Temperature 98.8 F 98.8 F Pulse Rate 106 H 120 H Respiratory Rate 20 22 Blood Pressure 139/94 H Pulse Oximetry 94 90 L 07/24/18 08:20 07/24/18 08:21 07/24/18 09:04 Temperature Pulse Rate 100 H Respiratory Rate 22 Blood Pressure Pulse Oximetry 89 L 93 92 Oxygen Delivery Method Nasal Cannula Oxygen Flow Rate 2 Narrative Exam Narrative: General: Morbidly obese middle-aged man in no acute distress Lungs: Mild diffuse wheezing Heart: Regular rhythm, no murmur appreciated Abdomen: Soft, nontender Extremities: Chronic stasis changes on the skin on bilateral lower leg Neuro: Alert and oriented Objective Labs Result Diagrams: 07/23/18 09:15 07/23/18 09:15 Assessment & Plan Plan: Assessment/Plan Narrative: 1. Acute asthma exacerbation: Continue IV Solu-Medrol, albuterol nebulizer treatments. He is also on Advair. Continue nasal cannula oxygen. He is on IV Levaquin for treating possible acute bacterial bronchitis. 2. Anxiety continue with his home medications Zyprexa and Ativan. 3. Acute hypoxic respiratory failure secondary to asthma exacerbation and acute bronchitis. Continue nasal cannula oxygen as needed to cut keep oxygen saturation greater than 90% 4. 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 Morbid obesity with chronic pCO2 retention probable chronic hypoventilation syndrome. BMI 79.5. He needs lifestyle modifications and weight loss as outpatient. Quality VTE Deep Vein Thrombosis/Pulmonary Embolism Present on Admission: No
[2018-07-24] MEDS: ENOXAPARIN 40 MG/0.4 ML SYRINGE SUBCUT (11:47)
--- NOTE | 2018-07-24 13:53 | RT ---
Pt told me he has a oxygen concentrator at home (he is unsure of the DME where he got it from), and uses 2 lpm O2 via nasal cannula with sleep. He stated he also had a Trilogy NHV machine (again, he thinks from [employer]), but it was taken away due to noncompliance.
--- NOTE | 2018-07-24 14:20 | PT.IIE ---
Current Diagnoses Unspecified asthma with (acute) exacerbation (07/23/18) Surgical History (Last Reviewed 07/23/18 @ 09:25 by Concepcion Damian DO) H/O vertebral fracture repair (Chronic) History of hip surgery (Chronic) Medical History (Last Reviewed 07/23/18 @ 09:25 by Concepcion Damian DO) Anxiety (Acute) Asthma (Acute) Methadone use disorder, mild, in controlled environment (Chronic) Morbid obesity (Chronic) Physical Therapy Inpatient Evaluation/Re-Eval M1 PT/OT-IP Prior Functional Status Start: 07/24/18 14:38 Freq: NEEDED Status: Active Protocol: Document 07/24/18 14:20 [facility] (Rec: 07/24/18 14:44 [facility] [id number]) Medical Review Prior Functional Status Mobility and Gait walker for in and outdoor ambulation Activities of Daily Living and IADL's modified indep. ADLs Prior Functional Level (Other details) not on home O2 during the day Social History Household Members significant other Living Arrangements House Number of Floors (Floors) One Floor Number of Stairs To Enter/Railing? no steps to enter/exit Home Equipment Front Wheel Walker M2 PT-IP Current Condition Start: 07/24/18 14:38 Freq: NEEDED Status: Active Protocol: Document 07/24/18 14:20 [facility] (Rec: 07/24/18 14:44 [facility] [id number]) Physical Therapy Current Condition Current Condition Evaluation Date 07/24/18 Treatment Diagnosis anxiety, chest pain, SOB, impaired activity tolerance Onset Date 07/23/18 M3 PT-IP Subjective Start: 07/24/18 14:38 Freq: NEEDED Status: Active Protocol: Document 07/24/18 14:20 [facility] (Rec: 07/24/18 14:44 [facility] [id number]) Subjective Physical Therapy Visit Type Type Initial Evaluation Visit Start Time 14:00 Visit Stop Time 14:20 Total Visit Minutes 20 Number of GREEN BUILDING ENERGY ENGINEER Visits 0 Physical Therapy Visit Comments Patient Comments pt agreeable to get OOB Patient Goals feel better M4 PT-IP Mobility and Gait Start: 07/24/18 14:38 Freq: NEEDED Status: Active Protocol: Document 07/24/18 14:20 [facility] (Rec: 07/24/18 14:44 [facility] [id number]) PT-Bed Mobility Assessment Supine to Sit Supine to Sit Standby Assistance Bedrails Sit to Supine Sit to Supine Standby Assistance Bedrails PT-Transfer Assessment Sit to and From Stand Sit to and from Stand Standby Assistance Equipment Transfer Assistive Device Front Wheeled Walker Transfers Transfer Destination Bed Transfer Technique Stand Step Pivot Transfer Ability Level of Assist Standby Assistance Comments Mobility Comments refused gait belt and gown Gait Assessment Gait Gait Assistance Required: Standby Assistance Distance (Feet) 25 Assistive Devices Assistive Device Front Wheeled Walker Gait Deviations General Gait Pattern Flexed Trunk Factors Limiting Gait Function Factors Limiting Gait Function Decreased Activity Tolerance Respiratory Distress Comments Gait Comments pt on 2.5 L O2, decreased to 85% after ambulation, HR to 125 bpm. PT-Balance Assessment Sitting Balance and Reactions Static Sitting Balance Ability Good Dynamic Sitting Balance Ability Good Standing Balance and Reactions Static Standing Balance Ability Good Dynamic Standing Balance Ability Good Device Used FWW M5 PT-IP Objective Assessments Start: 07/24/18 14:38 Freq: NEEDED Status: Active Protocol: Document 07/24/18 14:20 [facility] (Rec: 07/24/18 14:44 [facility] [id number]) Orientation Orientation/Cognition Level of Alertness Alert Orientation Name Age Birthday Month Date Year Day of Week Place Situation M7 PT-IP Assessment and Plan Start: 07/24/18 14:38 Freq: NEEDED Status: Active Protocol: Document 07/24/18 14:20 [facility] (Rec: 07/24/18 14:44 [facility] [id number]) PT Summary Assessment and Plan Potential Rehabilitation Potential Good Status of Condition at Evaluation Evolving Summary Impairments Gait Activity Tolerance Assessment Summary Pt agreeable to do physical therapy, but wanting to stay in the room only. He was able to ambulate 25 ft with a bariatric FWW and SBA, but O2 saturation decreased to 85% and HR elevated to 125 bpm. Increased RR and mild SOB but denies chest pain after ambulation. Pt admits he is not back to his baseline, normally able to walk out of home without SOB and does not use home O2. Pt will be seen 1x/day to progress his gait and activity tolerance, but expect he will be able to d/c home when medically improved and stable. Goals Bed Mobility Goal Independent Standby Assistance Gait Goal Independent Gait Distance 50 Days to Meet Goals 2 Frequency of Treatment Frequency Of Treatment Once a Day Treatment Plan Physical Therapy Treatment Plan Bed Mobility Training Transfer Training Gait Training Recommendations To Nursing Amount of Assist Needed Standby Assistance Discharge Recommendations PT Discharge Recommendations Home
[2018-07-24] MEDS: levoFLOXacin 750 MG/150 ML PIGGYBACK 100 MG IV (14:51)
[2018-07-25] VITALS (12 sets, daily range): BP systolic 138–144; BP diastolic 67–84; PULSE 89–105; RESP 16–22; TEMP 36.4–36.8; O2SAT 93–98
[2018-07-25] MEDS: methylPREDNISolone 125 MG/2 ML VIAL 80 MG IV ×2 (02:36→09:27)
[2018-07-25] MEDS: FLUTICASONE/SALMETEROL 500/50 14 PUFF DISKUS INH ×2 (06:18→17:59)
[2018-07-25] MEDS: ALBUTEROL 2.5 MG/3 ML NEB (ADULT) INH ×3 (06:18→17:58)
[2018-07-25] MEDS: OLANZapine ODT 10 MG TAB PO ×2 (06:24→22:13)
[2018-07-25] MEDS: LORazepam 1 MG TABLET PO ×2 (06:24→22:10)
[2018-07-25] MEDS: ENOXAPARIN 40 MG/0.4 ML SYRINGE SUBCUT (07:59)
[2018-07-25] MEDS: SODIUM CHLORIDE 0.9% FLUSH 10 ML IV ×2 (07:59→22:04)
[2018-07-25] MEDS: METHADONE 10 MG TABLET 95 MG PO (08:06)
--- NOTE | 2018-07-25 09:27 | PT.IPTN ---
Current Diagnoses Unspecified asthma with (acute) exacerbation (07/23/18) Physical Therapy Treatment Note M2 PT-IP Current Condition Start: 07/24/18 14:38 Freq: NEEDED Status: Active Protocol: Document 07/24/18 14:20 [facility] (Rec: 07/24/18 14:44 [facility] [id number]) Physical Therapy Current Condition Current Condition Evaluation Date 07/24/18 Treatment Diagnosis anxiety, chest pain, SOB, impaired activity tolerance Onset Date 07/23/18 M3 PT-IP Subjective Start: 07/24/18 14:38 Freq: NEEDED Status: Active Protocol: Document 07/25/18 08:50 LJ (Rec: 07/25/18 09:27 LJ [id number]) Subjective Physical Therapy Visit Type Type Patient Refusal Notes Pt sleeping in bed w/o nasal canula. 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 Pt states he just went to the bathroom. Refused treatment at this time . M4 PT-IP Mobility and Gait Start: 07/24/18 14:38 Freq: NEEDED Status: Active Protocol: Document 07/24/18 14:20 [facility] (Rec: 07/24/18 14:44 [facility] [id number]) PT-Bed Mobility Assessment Supine to Sit Supine to Sit Standby Assistance Bedrails Sit to Supine Sit to Supine Standby Assistance Bedrails PT-Transfer Assessment Sit to and From Stand Sit to and from Stand Standby Assistance Equipment Transfer Assistive Device Front Wheeled Walker Transfers Transfer Destination Bed Transfer Technique Stand Step Pivot Transfer Ability Level of Assist Standby Assistance Comments Mobility Comments refused gait belt and gown Gait Assessment Gait Gait Assistance Required: Standby Assistance Distance (Feet) 25 Assistive Devices Assistive Device Front Wheeled Walker Gait Deviations General Gait Pattern Flexed Trunk Factors Limiting Gait Function Factors Limiting Gait Function Decreased Activity Tolerance Respiratory Distress Comments Gait Comments pt on 2.5 L O2, decreased to 85% after ambulation, HR to 125 bpm. PT-Balance Assessment Sitting Balance and Reactions Static Sitting Balance Ability Good Dynamic Sitting Balance Ability Good Standing Balance and Reactions Static Standing Balance Ability Good Dynamic Standing Balance Ability Good Device Used FWW M5 PT-IP Objective Assessments Start: 07/24/18 14:38 Freq: NEEDED Status: Active Protocol: Document 07/24/18 14:20 [facility] (Rec: 07/24/18 14:44 [facility] [id number]) Orientation Orientation/Cognition Level of Alertness Alert Orientation Name Age Birthday Month Date Year Day of Week Place Situation M7 PT-IP Assessment and Plan Start: 07/24/18 14:38 Freq: NEEDED Status: Active Protocol: Document 07/24/18 14:20 [facility] (Rec: 07/24/18 14:44 [facility] [id number]) PT Summary Assessment and Plan Potential Rehabilitation Potential Good Status of Condition at Evaluation Evolving Summary Impairments Gait Activity Tolerance Assessment Summary Pt agreeable to do physical therapy, but wanting to stay in the room only. He was able to ambulate 25 ft with a bariatric FWW and SBA, but O2 saturation decreased to 85% and HR elevated to 125 bpm. Increased RR and mild SOB but denies chest pain after ambulation. Pt admits he is not back to his baseline, normally able to walk out of home without SOB and does not use home O2. Pt will be seen 1x/day to progress his gait and activity tolerance, but expect he will be able to d/c home when medically improved and stable. Goals Bed Mobility Goal Independent Standby Assistance Gait Goal Independent Gait Distance 50 Days to Meet Goals 2 Frequency of Treatment Frequency Of Treatment Once a Day Treatment Plan Physical Therapy Treatment Plan Bed Mobility Training Transfer Training Gait Training Recommendations To Nursing Amount of Assist Needed Standby Assistance Discharge Recommendations PT Discharge Recommendations Home
[2018-07-25] MEDS: levoFLOXacin 750 MG/150 ML PIGGYBACK 100 MG IV (11:30)
[2018-07-25] MEDS: FUROSEMIDE 20 MG TABLET PO (13:49)
--- NOTE | 2018-07-25 15:27 | PM.PN.1 ---
Subjective Date Patient Seen: 07/25/18 Time Patient Seen: 15:00 Interval history: Patient has improvement of his shortness of breath. He is currently satting 93% on room air. Exam Vital Signs (past 8 hours): - 07/25/18 07:35 07/25/18 08:20 07/25/18 09:22 Temperature 97.6 F Pulse Rate 89 Respiratory Rate 16 Blood Pressure 138/83 Pulse Oximetry 94 93 93 07/25/18 12:00 07/25/18 12:08 Temperature 97.7 F Pulse Rate 96 H Respiratory Rate 20 Blood Pressure 144/67 H Pulse Oximetry 98 93 Oxygen Delivery Method Room Air Oxygen Flow Rate 3 Narrative Exam Narrative: General: Morbidly obese middle-aged man in no acute distress Lungs: Mild diffuse wheezing, no crackles appreciated Heart: Regular rhythm, no murmur appreciated Abdomen: Soft, nontender Extremities: Chronic venous stasis changes on the skin on bilateral lower leg Neuro: Alert and oriented x3 Objective Labs Result Diagrams: 07/23/18 09:15 07/23/18 09:15 Assessment & Plan Plan: Assessment/Plan Narrative: 1. Acute asthma exacerbation: Clinically improving. DC IV Solu-Medrol. Start him on oral prednisone 60 mg once a day. Continue albuterol nebulizer treatments. He is also on Advair. He is on IV Levaquin for treating possible acute bacterial bronchitis. 2. Acute Pulmonary edema: Possibly secondary to possible diastolic heart failure. He responded nicely to IV furosemide with improvement of his oxygenation overnight. His weight is also about 20lbs up compare to his recent dry weight. I will start him on IV furosemide 20 mg q.8 hours for 1 more day. Recheck electrolytes in the am. 2. Anxiety continue with his home medications Zyprexa and Ativan. 3. Acute hypoxic respiratory failure secondary to pulmonary edema, possible asthma exacerbation, and acute bronchitis. He is currently satting fine on room air. Continue nasal cannula oxygen as needed to keep oxygen saturation greater than 90% 4. 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 Morbid obesity with chronic pCO2 retention and probable chronic hypoventilation syndrome. BMI 79.5. He needs lifestyle modifications and weight loss as outpatient. 6. Disposition: Discharge home tomorrow. Patient says his girlfriend who is his caregiver is not available until tomorrow after 2:00 p.m. He does not feel he is safe to stay home alone. Quality VTE Deep Vein Thrombosis/Pulmonary Embolism Present on Admission: No
--- NOTE | 2018-07-25 16:23 | PT.IPTN ---
Current Diagnoses Unspecified asthma with (acute) exacerbation (07/23/18) Physical Therapy Treatment Note M2 PT-IP Current Condition Start: 07/24/18 14:38 Freq: NEEDED Status: Active Protocol: Document 07/24/18 14:20 [facility] (Rec: 07/24/18 14:44 [facility] [id number]) Physical Therapy Current Condition Current Condition Evaluation Date 07/24/18 Treatment Diagnosis anxiety, chest pain, SOB, impaired activity tolerance Onset Date 07/23/18 M3 PT-IP Subjective Start: 07/24/18 14:38 Freq: NEEDED Status: Active Protocol: Document 07/25/18 16:21 LJ (Rec: 07/25/18 16:23 LJ [id number]) Subjective Physical Therapy Visit Type Type Patient Refusal Notes Pt states he is too weak for therapy today. Again found pt in bed without his O2 cannula in place. O2 sat 95% while resting in bed on room air. States he will get up for therapy tomorrow am. TABLET MACHINE OPERATOR replaced cannula again. M4 PT-IP Mobility and Gait Start: 07/24/18 14:38 Freq: NEEDED Status: Active Protocol:
[2018-07-25] MEDS: FUROSEMIDE 40 MG TABLET PO (17:15)
--- NOTE | 2018-07-25 20:25 | PC.NURSE ---
Kianna shift note: Patient required to be placed on O2 at 2L via NC while asleep, desaturated to mid 80's. Mild SOB noted only with activity, appears comfortable at rest, speaking in full sentences. Up out of bed to BSC, calls appropriately for staff assistance.
--- NOTE | 2018-07-25 22:57 | PC.NURSE ---
Patient was calling out at beginning of shift asking for a paper clip to clean out under his nails. Told patient that I would let the nurse know and that it might be a little bit before we are were able to get it for him as it was the beginning of shift change. between five and ten minutes after I had told the patient this he put his call light on again and stared yelling for the nurse. Another nurse went and answered call light. When doing first rounds on patents and getting vitals patient was pushing call light and yelling out of the nurse. When asked what he need help with patient stated that he wanted a snake. Reminded patient of his two snake per shift. Patient agree to this, got patient a turkey sandwich and some juice. between ten to fifteen minutes later patient put calls light on again, nurse answered call light. patient is reminded about appreciate use of the call light, and when dinner was going to be served. Patient used call light apparently though out the rest of shift until 2200 when he wanted a sandwich, milk, and 5 packages of katherine cracker. Patient is reminded about his two snake per shift and that he has already had one. He stated that he would rather have the sandwich. Egg salad was given to patient. Patient put call light back on ten minutes later asking for some juice, told patient that it might be a little bit as I was doing last rounding on all my other patients, patient put call back on when I stepped out of the room, patient was asking where his juice was and once again told patient that it would be a little bit as i would doing last rounding and that he should drink some water patient stated to me that he was not here for his diet. this was reported to the nurse. Got patient his juice and reported to nurse.
[2018-07-26] VITALS (15 sets, daily range): BP systolic 119–138; BP diastolic 68–85; PULSE 89–113; RESP 18–24; TEMP 36.6–36.8; O2SAT 87–97
[2018-07-26] MEDS: ALBUTEROL 2.5 MG/3 ML NEB (ADULT) INH ×5 (04:51→22:30)
[2018-07-26 05:47] LABS: BUN Creatinine Ratio 24.3 (6-22); Blood Urea Nitrogen 17 mg/dL (9-20); Calcium 8.3 mg/dL (8.4-10.2); Carbon Dioxide 36 mmol/L (22-32); Chloride 99 mmol/L (98-107); Estimated Glomerular Filt Rate > 60.0 mL/min (>60); Glucose 107 mg/dL (70-100); HEMOLYSIS < 15 (0-50); Potassium 4.1 mmol/L (3.4-5.1); Sodium 143 mmol/L (137-145)
[2018-07-26] MEDS: METHADONE 10 MG TABLET 95 MG PO (06:32)
[2018-07-26] MEDS: LORazepam 1 MG TABLET PO ×2 (06:44→20:27)
[2018-07-26] MEDS: predniSONE 20 MG TABLET 60 MG PO ×2 (08:16→20:27)
[2018-07-26] MEDS: SODIUM CHLORIDE 0.9% FLUSH 10 ML IV ×2 (08:16→19:58)
[2018-07-26] MEDS: OLANZapine ODT 10 MG TAB PO ×2 (08:16→20:26)
[2018-07-26] MEDS: ENOXAPARIN 40 MG/0.4 ML SYRINGE SUBCUT (08:16)
[2018-07-26] MEDS: FLUTICASONE/SALMETEROL 500/50 14 PUFF DISKUS INH ×2 (09:37→18:05)
[2018-07-26] MEDS: diphenhydrAMINE 25 MG TABLET PO ×3 (11:32→23:29)
[2018-07-26] MEDS: levoFLOXacin 750 MG/150 ML PIGGYBACK 100 MG IV (11:38)
--- NOTE | 2018-07-26 12:21 | PT.IPTN ---
Current Diagnoses Unspecified asthma with (acute) exacerbation (07/23/18) Physical Therapy Treatment Note M2 PT-IP Current Condition Start: 07/24/18 14:38 Freq: NEEDED Status: Active Protocol: Document 07/26/18 12:12 NFW (Rec: 07/26/18 12:21 NFW [id number]) Physical Therapy Current Condition Current Condition Evaluation Date 07/24/18 Treatment Diagnosis anxiety, chest pain, SOB, impaired activity tolerance Onset Date 07/23/18 M3 PT-IP Subjective Start: 07/24/18 14:38 Freq: NEEDED Status: Active Protocol: Document 07/26/18 12:12 NFW (Rec: 07/26/18 12:21 NFW [id number]) Subjective Physical Therapy Visit Type Type Treatment Note Visit Start Time 10:45 Visit Stop Time 10:58 Total Visit Minutes 13 Number of OUTSOLE ROUNDER Visits 0 Physical Therapy Visit Comments Patient Comments Patient agreeable to therapy. M4 PT-IP Mobility and Gait Start: 07/24/18 14:38 Freq: NEEDED Status: Active Protocol: Document 07/26/18 12:12 NFW (Rec: 07/26/18 12:21 NFW [id number]) PT-Bed Mobility Assessment Supine to Sit Supine to Sit Standby Assistance 1 Person Assistance Sit to Supine Sit to Supine Standby Assistance 1 Person Assistance Scooting Scooting to Edge of Bed Standby Assistance Scooting Up and Down in Bed Standby Assistance PT-Transfer Assessment Sit to and From Stand Sit to and from Stand Standby Assistance Equipment Transfer Assistive Device Front Wheeled Walker Transfers Transfer Destination Bed Bedside Commode Transfer Technique Stand Step Pivot Transfer Ability Level of Assist Standby Assistance Comments Mobility Comments refused gait belt and gown Gait Assessment Gait Gait Assistance Required: Standby Assistance Distance (Feet) 25 Assistive Devices Assistive Device Front Wheeled Walker Gait Deviations General Gait Pattern Flexed Trunk Factors Limiting Gait Function Factors Limiting Gait Function Decreased Activity Tolerance Respiratory Distress Comments Gait Comments O2 post activity at 94%. M5 PT-IP Objective Assessments Start: 07/24/18 14:38 Freq: NEEDED Status: Active Protocol: Document 07/24/18 14:20 RCC (Rec: 07/24/18 14:44 [facility] [id number]) Orientation Orientation/Cognition Level of Alertness Alert Orientation Name Age Birthday Month Date Year Day of Week Place Situation M6 PT-IP Treatment Start: 07/24/18 14:38 Freq: NEEDED Status: Active Protocol: Document 07/26/18 12:12 NFW (Rec: 07/26/18 12:21 NFW [id number]) Physical Therapy Treatment Other Treatments Other Treatment Performed Attempted exercises but reported fatigue. M7 PT-IP Assessment and Plan Start: 07/24/18 14:38 Freq: NEEDED Status: Active Protocol: Document 07/26/18 12:12 NFW (Rec: 07/26/18 12:21 NFW [id number]) PT Summary Assessment and Plan Summary Impairments Gait Activity Tolerance Assessment Summary Patient feels that he has improved. Walked ~25' in room SBA but did not have energy for exercises or another round of walking. O2 good post exercise at 94%. Frequency of Treatment Frequency Of Treatment Once a Day Recommendations To Nursing Amount of Assist Needed Standby Assistance Discharge Recommendations PT Discharge Recommendations Home
--- NOTE | 2018-07-26 15:56 | P.PN_ITS ---
Subjective Date Patient Seen: 07/26/18 Interval history: Patient with some wheezing. Noted to have drops in O2 sat only when he falls asleep and he does have diagnosis of obstructive sleep apnea. Exam Vital Signs (past 8 hours): - 07/26/18 08:26 07/26/18 09:40 07/26/18 12:00 Temperature 98.0 F Pulse Rate 100 H 94 H Respiratory Rate 20 18 Blood Pressure 138/85 Pulse Oximetry 92 95 95 07/26/18 14:00 Temperature Pulse Rate 96 H Respiratory Rate 20 Blood Pressure Pulse Oximetry Oxygen Delivery Method Nasal Cannula Oxygen Flow Rate 2 Narrative Exam Narrative: General: Very obese male who is alert and not in acute distress Lungs: Mild bilateral expiratory wheeze Extremities: Chronic venous stasis changes of lower extremities Neurological: Nonfocal Objective Labs Result Diagrams: 07/23/18 09:15 07/26/18 05:01 Labs: Laboratory Results - last 24 hr 07/26/18 05:01 Sodium 143 Potassium 4.1 Chloride 99 Carbon Dioxide 36 H BUN 17 Creatinine 0.70 Estimated GFR > 60.0 BUN/Creatinine Ratio 24.3 H Glucose 107 H Calcium 8.3 L Assessment & Plan Plan: Assessment/Plan Narrative: 1. Acute asthma exacerbation: Clinically improving but has some wheezing on exam. Increase prednisone to 60 mg twice daily. Continue Levaquin for possible acute bacterial bronchitis. 2. Fluid overload state of clinically undetermined etiology, possibly due to recent steroids for asthma: Doubt CHF as his BNP is less than 100. Chest x- ray findings appear to be his baseline and are likely not due to pulmonary edema. He reported responded nicely to IV furosemide with improvement of his oxygenation overnight after admission. His weight was also about 20lbs up compare to his recent dry weight. He does not need further diuresis. 2. Anxiety continue with his home medications Zyprexa and Ativan. 3. Acute hypoxic respiratory failure secondary to asthma exacerbation, and acute bronchitis. He is currently satting fine on room air. Continue nasal cannula oxygen as needed to keep oxygen saturation greater than 90% 4. 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 Morbid obesity with chronic pCO2 retention and probable chronic hypoventilation syndrome. BMI 79.5. He needs lifestyle modifications and weight loss as outpatient. 6. Disposition: Discharge home tomorrow. Quality VTE Deep Vein Thrombosis/Pulmonary Embolism Present on Admission: No
--- NOTE | 2018-07-26 16:06 | CM.DPC ---
DCP/continued: Spoke with Dr. Cooper. He reports that patient will most likely be medically stable for d/c on Wednesday07-27-18. Requested to Dr. Cooper that he prepare patient for discharge on 07-27-18. The day before Dr. Nj had explained to patient that he would most likely be ready today. Patient told [facility] staff that he has nobody to help him or provide transport? None of this was mentioned to PROPERTY WORKER during assessment. PROPERTY WORKER met with patient this afternoon. Reiterated to patient that MD planning on discharging him in AM tomorrow. Asked patient if CM team could assist with anything related to transport or needs. Patient denies having any needs but is unclear if he will have transport. Patient reports that he will attempt to obtain transport tonight for tomorrow 07-27-18. Patient aware that d/c time is 11:00AM. Will request PROPERTY WORKER/Alma Rosa f/u in AM. Patient appears to like attention he receives and care during hospitalization. Patient continues to request food when staff enter room. P: Home when stable. Patient denies needs. PROPERTY WORKER to f/u prior to d/c. JOSÉ LUIS Noriega
[2018-07-27] VITALS: O2SAT 91
[2018-07-27 00:01] VITALS: BP 129/75; PULSE 99; RESP 16; TEMP 36.6; O2SAT 91
[2018-07-27] MEDS: LORazepam 1 MG TABLET PO (04:52)
[2018-07-27] MEDS: ALBUTEROL 2.5 MG/3 ML NEB (ADULT) INH (05:02)
[2018-07-27] MEDS: FLUTICASONE/SALMETEROL 500/50 14 PUFF DISKUS INH (05:02)
[2018-07-27 05:03] VITALS: PULSE 113; RESP 20; O2SAT 95
[2018-07-27] MEDS: diphenhydrAMINE 25 MG TABLET PO ×2 (05:18→10:57)
--- NOTE | 2018-07-27 05:41 | PC.NURSE ---
Addendum entered by Barbara Montez R.N. 07/27/18 06:59: Pt sobbing intermittently, gave am doses early of both Zyprexa and Methadone per pt request. Pt sobbing until shift change. Fell asleep during report. Original Note: Pt called often Q3-5min at times t/o shift. Very demanding towards staff w/ needs. Unhappy w/ food/snack schedule, wants unrestricted amounts of food at all times t/o night. Unhappy when food stock/supply is out on floor. Pt hysterically crying this am stating it's his anxiety. Gave 1mg dose of Ativan per NOV, pt still crying out stating why isn't it working. paged and order obtained for additional 1x dose of ativan 0.5mg to be given now.
[2018-07-27] MEDS: LORazepam 0.5 MG TABLET PO (05:51)
[2018-07-27 06:09] VITALS: BP 142/77; PULSE 118; RESP 16; TEMP 36.8; O2SAT 94
[2018-07-27] MEDS: METHADONE 10 MG TABLET 95 MG PO (06:16)
[2018-07-27] MEDS: OLANZapine ODT 10 MG TAB PO (07:01)
[2018-07-27 08:00] VITALS: BP 142/77; PULSE 106; RESP 20; TEMP 36.2; O2SAT 94
[2018-07-27] MEDS: ENOXAPARIN 40 MG/0.4 ML SYRINGE SUBCUT (08:39)
[2018-07-27] MEDS: SODIUM CHLORIDE 0.9% FLUSH 10 ML IV (08:40)
[2018-07-27] MEDS: predniSONE 20 MG TABLET 60 MG PO (08:40)
--- NOTE | 2018-07-27 09:36 | PT.IPTN ---
Current Diagnoses Unspecified asthma with (acute) exacerbation (07/23/18) Physical Therapy Treatment Note M2 PT-IP Current Condition Start: 07/24/18 14:38 Freq: NEEDED Status: Active Protocol: Document 07/26/18 12:12 NFW (Rec: 07/26/18 12:21 NFW [id number]) Physical Therapy Current Condition Current Condition Evaluation Date 07/24/18 Treatment Diagnosis anxiety, chest pain, SOB, impaired activity tolerance Onset Date 07/23/18 M3 PT-IP Subjective Start: 07/24/18 14:38 Freq: NEEDED Status: Active Protocol: Document 07/27/18 08:55 LJ (Rec: 07/27/18 09:35 LJ [id number]) Subjective Physical Therapy Visit Type Type Treatment Note Visit Start Time 08:55 Visit Stop Time 09:21 Total Visit Minutes 26 Notes Pt on commode. Requests shower . Physical Therapy Visit Comments Patient Comments Pt too anxious for therapy. Asked for Ativan. Crying, moaning. Requested ice cream. M4 PT-IP Mobility and Gait Start: 07/24/18 14:38 Freq: NEEDED Status: Active Protocol: Document 07/27/18 08:55 LJ (Rec: 07/27/18 09:35 LJ [id number]) PT-Transfer Assessment Sit to and From Stand Sit to and from Stand Standby Assistance Equipment Transfer Assistive Device Front Wheeled Walker Transfers Transfer Destination Bed Toilet Bedside Commode Transfer Technique Stand Step Pivot Transfer Ability Level of Assist Standby Assistance Comments Mobility Comments Pt [id number] to shower from commode using FWW. SBA in shower with assist for towling off backside. Pt ambulated back to bed 12' SBA using FWW. SBA forreturn to bed and use of handrails and trapeze to position self in bed. Gait Assessment Gait Gait Assistance Required: Standby Assistance Distance (Feet) 24 Assistive Devices Assistive Device Front Wheeled Walker Gait Deviations General Gait Pattern Ataxic Flexed Trunk Factors Limiting Gait Function Factors Limiting Gait Function Decreased Activity Tolerance Decreased Strength Poor Balance Respiratory Distress M5 PT-IP Objective Assessments Start: 07/24/18 14:38 Freq: NEEDED Status: Active Protocol: Document 07/24/18 14:20 RCC (Rec: 07/24/18 14:44 RCC [id number]) Orientation Orientation/Cognition Level of Alertness Alert Orientation Name Age Birthday Month Date Year Day of Week Place Situation M6 PT-IP Treatment Start: 07/24/18 14:38 Freq: NEEDED Status: Active Protocol: Document 07/27/18 08:55 (Rec: 07/27/18 09:35 [id number]) Physical Therapy Treatment Other Treatments Other Treatment Performed Pt refused d/t fatigue and anxiety. M7 PT-IP Assessment and Plan Start: 07/24/18 14:38 Freq: NEEDED Status: Active Protocol: Document 07/27/18 08:55 (Rec: 07/27/18 09:35 [id number]) PT Summary Assessment and Plan Summary Impairments Gait Activity Tolerance Assessment Summary Pt states he is feeling better . Tolerated shower and activity w/o complaint of fatigue until he returned to bed. Requested Ativan and ice cream of which ice cream was provided by therapist. Pt resting comfortably in bed Frequency of Treatment Frequency Of Treatment Once a Day Recommendations To Nursing Amount of Assist Needed Standby Assistance Discharge Recommendations PT Discharge Recommendations Home
[2018-07-27 10:15] VITALS: BP 149/90; PULSE 114; RESP 18; O2SAT 92
--- NOTE | 2018-07-27 10:26 | PC.NURSE ---
Patient calling out and crying at times. States he is anxious but doesn't know why. No prn medications available at this time. Patient encouraged to try relaxation techniques and sit up in chair for comfort. Patient agrees he would like to sit up. Up to bariatric chair with standby assistance, chair alarm applied. Call light within reach. Patient reminded to use call light and not to get up with assistance. continue to follow.
--- NOTE | 2018-07-27 10:33 | PC.NURSE ---
Patient keeps taking chair alarm off himself. Patient reminded again that he needs to call for assistance getting up.
--- NOTE | 2018-07-27 11:24 | PC.NURSE ---
Ride home with Taxi service arranged by case management. Discharge instructions, prescriptions and home care handouts reviewed with patient. Patient states understanding and has no further questions or concerns. IV removed intact. Patient still anxious about going home, re assurance and discussion provided. Patient escorted out via wheelchair with all belongings. Once down at main entrance, patient states he had to use bathroom again, escorted back to his room to void and then back to taxi for discharge to home. Patient states he will call to schedule his follow up appointment for in 1 week.
--- NOTE | 2018-07-27 12:37 | CM.DPC ---
DC Note: DC order in place and pt returning home today. According to RN coordinator and KAILYN Ewing, pt feeling anxious today about going home and states he does not have transportation to get home. Pt states he is agreeable to getting home health, he doesn't think he ever heard from [facility] (?) TC placed to [facility] . Had to . Then [employer] was arranged w/assistance from RN Coordinator Celina, d/t pt stating he had no funds or means for transport today. [facility], spoke to Eloisa Gonzlaes# [phone], she arranged their van to get pt [id number], this [employer]AL[employer] SCIENTIST had to call Eloisa to update; d/t pt's level of anxiety, needed to get pt home danielle w/assist from [employer] [facility], pt agreeable to this plan today. SHAHLA
--- NOTE | 2018-07-27 16:09 | PM.DS.1 ---
History of Present Illness Chief complaint: Anxiety,chest pain,body hurts Narrative: Complaints of acute onset difficulty breathing. He has known asthma is on chronic inhaler therapy and was a woken this morning about 3:00 a.m. with increasing shortness of breath could not catch his breath. He has been noting some increased cough and sputum production over the last several days also. He states compliance with his inhalers Discharge Providers Date of admission: 07/23/18 10:54 Primary care physician: Gabe Meraz PA-C Consults: 07/23/18 12:30 Consult to Respiratory Therapy Evaluate & Treat Comment: Physician Instructions: Evaluate and treat 07/23/18 14:11 Consult to Dietitian, Adult Routine Comment: Reason For Exam: Admission prachi scale 14 07/24/18 12:06 Consult to Physical Therapy Evaluate & Treat Comment: Physician Instructions: Evaluate and Treat 07/24/18 15:14 Consult to Physical Therapy Evaluate & Treat Comment: Physician Instructions: Evaluate and Treat Discharge provider: Josue Cooper MD Discharge Date: 07/27/18 Summary Discharge Diagnosis: 1. Acute asthma exacerbation 2. Possible acute bacterial bronchitis 3. Fluid overload state of undetermined etiology, possibly fluid retention from recent steroids for asthma 4. Acute hypoxic respiratory failure, resolved 5. Opioid dependency, on methadone 6. Severe obesity, BMI 79 Hospital Course: Patient was treated for primary diagnosis asthma exacerbation. Received IV steroids, nebulizer and also Levaquin for possible bacterial component. There is no evidence of pneumonia, however. He has been on prednisone the last couple of days. There was some interstitial edema on chest x-ray although that appears to be his baseline and he also had some peripheral edema on admission. He seemed to respond to IV Lasix. Possibly this is fluid retention from recent frequent steroids. His BMP is less than 100 making CHF highly unlikely. Patient is discharged in improved condition. He has still slight wheezing on exam but normal O2 sats on room air and does not appear to have any labored breathing at rest or mild exertion. Discharged on 5 additional days prednisone 60 mg twice daily. Also renewed his nebulizer solution and Zyprexa per patient request. Status at Discharge Functional status at discharge: independent ambulation Overall status at discharge: patient is back to baseline Time Spent with Patient Greater than 30 minutes Exam Vital Signs (past 8 hours): - 07/27/18 10:15 Pulse Rate 114 H Respiratory Rate 18 Blood Pressure 149/90 H Pulse Oximetry 92 Oxygen Delivery Method Room Air Oxygen Flow Rate 0 Objective Labs Result Diagrams: 07/23/18 09:15 07/26/18 05:01 Discharge Plan Discharge Plan Patient Disposition: Home Discharge Med Rec/Prescriptions Prescriptions: New prednisone 50 mg tablet 50 mg PO BID Qty: 10 RF: 0 Continue fluticasone-salmeterol [Advair Diskus] 500 MCG/50 MCG blister with device 1 puff INH BID Qty: 2 RF: 5 methadone 10 MG tablet 95 mg PO QDAY Qty: 0 RF: 0 albuterol sulfate 90 mcg/actuation HFA aerosol inhaler 2 puff INHALATION Q4-6H PRN (Reason: shortness of breath or wheezing) Qty: 18 RF: 0 albuterol sulfate 2.5 MG/3 ML solution for nebulization 3 ml INH Q4HP PRN (Reason: Wheezing) Qty: 360 RF: 0 olanzapine [Zyprexa Zydis] 10 mg Tablet,Disintegrating 10 mg PO BID Qty: 60 RF: 0 Discontinued prednisone 10 MG tablet 10 mg PO BID RF: 0 prednisone 20 mg Tablet 80 mg PO DAILY Qty: 12 RF: 0 Follow up/Referrals: Gabe Meraz PA-C [Primary Care Provider] - 1 Week (please follow up with lluvia [phone] ([facility]) in 1 week from discharge ) Provider Discharge Instructions Diet: Regular Visit Report/Discharge Packet Instructions: DI for Asthma -- Adult, Prednisone Visit Report Forms: Stroke Signs & Symptoms Discharge Data Primary Care Provider: Gabe Meraz Attending Provider: Otoniel Richardson Admit Date/Time: 07/23/18 10:54 Discharges patient from system. Discharge Date/Time: 07/27/18 11:30 Quality VTE Deep Vein Thrombosis/Pulmonary Embolism Present on Admission: No
== END 2018-07-27 11:30 | disposition home or self-care (01) | DRG 189 ==
LOC: ED 10:52 → AC 07-24 08:23
PROVIDERS: Internal Medicine; Admitting Provider Internal Medicine; Emergency Provider Emergency Medicine; Family Provider Physician Assistant; PCP Physician Assistant; Visit Provider Internal Medicine
DX: J96.01 Acute respiratory failure with hypoxia (principal); J45.901 Unspecified asthma with (acute) exacerbation; Z68.45 Body mass index [BMI] 70 or greater, adult; E66.2 Morbid (severe) obesity with alveolar hypoventilation; J20.9 Acute bronchitis, unspecified; F41.9 Anxiety disorder, unspecified; F11.90 Opioid use, unspecified, uncomplicated; E87.70 Fluid overload, unspecified; T38.0X5A Adverse effect of glucocorticoids and synthetic analogues, initial encounter
CPT/HCPCS: 36415; 36591; 36600; 71045; 80048; 80053; 81003; 81015; 82550; 82805; 83690; 83880; 84484; 85025; 85610; 85730; 87077; 87086; 93005; 94150; 94640; 94760; 94762; 96374; 97116; 97162; 97530; 99283; 99285; J1650; J1940; J1956; J2930; J7613

== ENCOUNTER 2018-08-05 07:51 | Emergency (ER) | payer MEDICAID, OTHER, SELFPAY ==
[2018-07-23 10:58] VITALS: BMI 84.1
--- NOTE | 2018-08-05 | DI.RAD.S_ITS ---
PROCEDURE: XR CHEST 1V INDICATIONS: Short of breath TECHNIQUE: One view of the chest was acquired. COMPARISON: [facility], CR, XR CHEST 1V, 05/08/2018, 14:14. [facility], CR, XR CHEST 1V, 07/05/2018, 12:39. [facility], CR, XR CHEST 1V, 07/23/2018, 9:10. FINDINGS: This examination is limited by involuntary motion artifact. Surgical changes and devices: None. Lungs and pleura: An incomplete inspiratory result is noted, causing a crowded appearance to the lung markings. Generalized interstitial prominence is seen. No focal infiltrates are seen. No pneumothorax or significant pleural effusions are seen. Mediastinum: Mediastinal contours appear normal. Heart size is mildly enlarged. Bones and chest wall: No suspicious bony lesions. Overlying soft tissues appear unremarkable. IMPRESSION: Cardiomegaly and interstitial prominence. Please correlate with patient presentation, physical examination findings, and laboratory values for congestive heart failure. Dictated by: Cm Alba M.D. on 08/05/2018 at 9:24 Approved by: Cm Alba M.D. on 08/05/2018 at 9:26
[2018-08-05 08:04] VITALS: BP 117/85; PULSE 115; RESP 24; TEMP 37.6; O2SAT 94; BMI 81.5
[2018-08-05] MEDS: LORazepam 0.5 MG TABLET 2 MG PO (08:18)
[2018-08-05] MEDS: ALBUTEROL 2.5 MG/3 ML NEB (ADULT) INH ×2 (08:18→08:54)
[2018-08-05 08:22] VITALS: O2SAT 95
--- NOTE | 2018-08-05 08:27 | PC.NURSE ---
Limit setting with pt as use of the call light 5 times requesting his meds and a urinal. I expl to pt that I cannot get his treatment and meds if he is using the call light non stop and I have to stop preparing his meds and go in to answer his call light. I explained that I would like to give him his medications but I need to have just a few minutes to do the legal work in pulling out a controlled substance
--- NOTE | 2018-08-05 08:30 | ED.ANXIETY ---
HPI - Anxiety General Chief Complaint: Anxiety Stated Complaint: Anxiety Time Seen by Provider: 08/05/18 07:58 Source: EMS Mode of arrival: EMS Limitations: no limitations History of Present Illness HPI narrative: Patient is a 37-year-old male well known to myself in this facility. He a has history of morbid obesity, anxiety and asthma. As he was at the methadone clinic when he suddenly got short of breath. He took lorazepam last night to help with his anxiety. He was actually admitted July 23 through the with asthma exacerbation, he is still taking prednisone. He denies fever or productive. MD complaint: anxiety, heart racing and shortness of breath Symptoms: dyspnea Relieving factors: nothing Exacerbating factors: nothing Associated symptoms: denies other symptoms Related Data Home Medications Medication Instructions Recorded Confirmed methadone 95 mg PO QDAY #0 05/07/17 08/05/18 prednisone 10 mg PO BID 08/05/18 08/05/18 Previous Rx's Medication Instructions Recorded fluticasone-salmeterol [Advair 1 puff INH BID #2 inh 04/28/17 Diskus] albuterol sulfate 2 puff INHALATION Q4-6H PRN #18 07/11/18 gram albuterol sulfate 3 ml INH Q4HP PRN #360 ml 07/27/18 olanzapine [Zyprexa Zydis] 10 mg PO BID #60 tab 07/27/18 prednisone 50 mg PO BID #10 tab 07/27/18 Allergies Allergy/AdvReac Type Severity Reaction Status Date / Time NSAIDS (Non-Steroidal Allergy Unknown ASTHMA Verified 08/05/18 11:04 Anti-Inflamma FLARE UPS [NSAIDS (NON-STEROIDAL ANTI-INFLAMMA] ibuprofen AdvReac Mild nausea, GI Verified 08/05/18 11:04 upset Review of Systems Review of Systems All systems reviewed & are unremarkable except as noted in HPI and below Constitutional Denies chills, Denies fever(s), Denies lethargy and Denies weakness Eyes Denies change in vision, Denies eye discharge, Denies irritation and Denies loss of vision Respiratory Reports as per HPI Gastrointestinal Gastrointestinal: Denies abdominal pain, Denies change in bowel habits, Denies diarrhea, Denies nausea and Denies vomiting Musculoskeletal Denies back pain, Denies muscle weakness, Denies numbness and Denies tingling Integumentary/Breasts Denies pruritus, Denies erythema, Denies rash and Denies wounds Neurologic Denies loss of vision, Denies numbness, Denies tingling and Denies weakness [facility] Surgical History H/O vertebral fracture repair (Chronic) History of hip surgery (Chronic) Family History Mother Diabetes mellitus Social History household members: significant other Smoking Status: Never smoker Exam Initial Vital Signs Initial Vital Signs: Vital Signs Temperature 99.7 F H 08/05/18 08:04 Pulse Rate 115 H 08/05/18 08:04 Respiratory Rate 24 08/05/18 08:04 Blood Pressure 117/85 08/05/18 08:04 Pulse Oximetry 94 08/05/18 08:04 GENERAL: Morbidly obese male discharge hold but able to speak in full sentences in no acute distress HEENT: Head atraumatic,EOMI, pupils reactive, CARDIOVASCULAR: Regular rate and rhythm without murmurs, rubs or gallops. RESPIRATORY: Decreased breath sounds bilaterally but no wheezes rales or rhonchi but speaking in full sentences oxygen level appropriate ABDOMEN: Soft, nontender. Normoactive bowel sounds all 4 quadrants. No guarding or rebound. EXTREMITIES: Normal range of motion, no clubbing or edema. Neurovascularly intact NEUROLOGICAL: Alert and oriented x4.Normal gait and speech. Cranial nerves II through XII grossly intact. SKIN: Warm, dry, no laceration, no petechiae, no rashes or lesions. Course Orders Ordered: ED Orders 08/05/18 10:40 B Type Natriuretic Peptide Stat Complete Blood Count AUTO DIFF Stat Comprehensive Metabolic Panel Stat Troponin & CK Cardiac Panel Stat 08/05/18 10:46 EKG-12 Lead Stat Discontinued Medications Albuterol (Ventolin) 2.5 mg INH NOW ONE Stop: 08/05/18 07:59 Last Admin: 08/05/18 08:18 Dose: 2.5 mg Albuterol (Ventolin) 2.5 mg INH NOW ONE Stop: 08/05/18 08:49 Last Admin: 08/05/18 08:54 Dose: 2.5 mg Albuterol (Proventil) 2.5 mg INH NOW ONE Stop: 08/05/18 08:51 Last Admin: 08/05/18 09:39 Dose: Lorazepam (Ativan) 2 mg PO NOW ONE Stop: 08/05/18 07:59 Last Admin: 08/05/18 08:18 Dose: 2 mg Vital Signs - 8 hr 08/05/18 08:04 08/05/18 08:22 08/05/18 08:55 Temperature 99.7 F H Pulse Rate 115 H Respiratory Rate 24 Blood Pressure 117/85 Blood Pressure [Right Arm] Pulse Oximetry 94 95 98 08/05/18 10:03 08/05/18 10:49 08/05/18 12:32 Temperature Pulse Rate 108 H 105 H 99 H Respiratory Rate 22 20 22 Blood Pressure 124/60 Blood Pressure [Right Arm] 135/68 123/56 L Pulse Oximetry 92 97 96 MDM - Anxiety Medical Records Attestation: I reviewed the patient's medical records. Lab Data Attestation: I reviewed the patient's lab results. Result diagrams: 08/05/18 10:40 08/05/18 10:40 Lab Results 08/05/18 08/05/18 08/05/18 Range/Units 10:40 10:40 10:40 WBC 12.4 H (4.5-11.0) X10^3/uL RBC 4.52 (4.5-5.9) X10^6/uL Hgb 11.6 L (13.5-17.5) g/dL Hct 36.4 L (41-53) % MCV 80.7 (80-100) fL MCH 25.8 L (26-34) PG MCHC 32.0 (30-36) % RDW 17.4 H (11.6-14.8) % Plt Count 218 (150-400) X10^3/uL Neut % (Auto) 83.9 H (50-75) % Lymph % (Auto) 10.3 L (25-40) % [place] % (Auto) 5.3 (3-14) % Eos % (Auto) 0.0 L (2-4) % Baso % (Auto) 0.5 (0-2) % Neut # (Auto) 18376 H (2245-9881) /uL Sodium 140 (137-145) mmol/L Potassium 3.7 (3.4-5.1) mmol/L Chloride 98 (98-107) mmol/L Carbon Dioxide 34 H (22-32) mmol/L BUN 7 L (9-20) mg/dL Creatinine 0.50 L (0.66-1.25) mg/dL Estimated GFR > 60.0 (>60) mL/min BUN/Creatinine Ratio 14.0 (6-22) Glucose 113 H (70-100) mg/dL Calcium 8.2 L (8.4-10.2) mg/dL Total Bilirubin 0.6 (0.2-1.3) mg/dL AST 15 L (17-59) IU/L ALT 18 L (21-72) IU/L Alkaline Phosphatase 70 (38-126) U/L Total Creatine Kinase 36 L (55-170) U/L CK-MB (CK-2) TNP CK-MB (CK-2) Rel Index TNP Troponin I < 0.012 (0.01-0.034) ng/mL B-Natriuretic Peptide < 100.0 (<100) Total Protein 6.8 (6.3-8.2) g/dL Albumin 3.6 (3.5-5.0) g/dL Globulin 3.2 (1.7-4.1) g/dL Albumin/Globulin Ratio 1.1 (1.0-2.8) Urine Dip Bedside Urine Glucose Negative Bedside Urine Bilirubin - Negative Bedside Urine Ketone - Negative Urine Specific Wilson 1.015 Bedside Urine Occult Blood - Negative Bedside Urine pH 6.0 Bedside Urine Protein - Negative Bedside Urine Urobilinogen - Negative Bedside Urine Nitrite - Negative Bedside Urine Leukocytes - Negative Esterase Imaging Data Chest x-ray: Radiologist's impression: [address] [address] XRay Report Signed Patient: Babatunde Fitzgerald KMR#: [id number] : 1980Acct:[id number] Age/Sex: 37 / MDate of Service: 08/05/18 Loc: ED Accession Number: [id number] Procedure: XR chest 1V Ordering Provider: Erica Funez D.O. PROCEDURE: XR CHEST 1V INDICATIONS: Short of breath TECHNIQUE: One view of the chest was acquired. [facility] 14[facility]. [facility], CR, XR CHEST 1V, 07/05/2018, 12:39. [facility], CR, XR CHEST 1V, 07/23/2018, 9:10. FINDINGS: This examination is limited by involuntary motion artifact. Surgical changes and devices: None. Lungs and pleura: An incomplete inspiratory result is noted, causing a crowded appearance to the lung markings. Generalized interstitial prominence is seen. No focal infiltrates are seen. No pneumothorax or significant pleural effusions are seen. Mediastinum: Mediastinal contours appear normal. Heart size is mildly enlarged. Bones and chest wall: No suspicious bony lesions. Overlying soft tissues appear unremarkable. IMPRESSION: Cardiomegaly and interstitial prominence. Please correlate with patient presentation, physical examination findings, and laboratory values for congestive heart failure. Dictated by: Cm Alba M.D. on 08/05/2018 at 9:24 ECG Data Attestation: I personally reviewed and interpreted this ECG as follows: Prior ECG tracings: available for review Interpretation: Sinus tachycardia rate 101 right bundle-branch block similar to previous EKG MDM Narrative Medical decision making narrative: The patient is given albuterol and Ativan. He was falling asleep per nursing. X-ray is concerning for cardiomegaly it actually looks like more pulmonary congestion 10 me. He is not hypoxic all when he is awake. While sleeping he does does and requires 1-2 L. his breathing overall has improved however will check blood work. BNP is negative other blood work reassuring. He is requesting more medication for anxiety. His this time he needs to follow up with his primary regards to further anxiety medication. At this time I do not believe patient to have PE, he is not significantly hypoxic for complaining of severe shortness of breath. Discharge Plan Departure Patient Disposition: Home Clinical Impression: Anxiety, Asthma Discharge Date/Time: 08/05/18 12:34 Interventions: ED Discharge Assessment Last Done: 08/05/18 12:32 Activity Restrictions/Additional Instructions: *You have been diagnosed with anxiety and asthma *What to do: Blood work chest x-ray reassuring. If you should need further anxiety medication please discuss this with her doctor *Continue to take medications as directed *Follow up with your primary care provider in 2-3 days *Return to ER if you should have any new, worsening or concerning symptoms Prescriptions: No Action fluticasone-salmeterol [Advair Diskus] 500 MCG/50 MCG blister with device 1 puff INH BID Qty: 2 RF: 5 methadone 10 MG tablet 95 mg PO QDAY Qty: 0 RF: 0 prednisone 10 mg tablet 10 mg PO BID RF: 0 albuterol sulfate 90 mcg/actuation HFA aerosol inhaler 2 puff INHALATION Q4-6H PRN (Reason: shortness of breath or wheezing) Qty: 18 RF: 0 albuterol sulfate 2.5 MG/3 ML solution for nebulization 3 ml INH Q4HP PRN (Reason: Wheezing) Qty: 360 RF: 0 olanzapine [Zyprexa Zydis] 10 mg Tablet,Disintegrating 10 mg PO BID Qty: 60 RF: 0 prednisone 50 mg tablet 50 mg PO BID Qty: 10 RF: 0 Referrals: Gabe Meraz PA-C [Primary Care Provider] -
--- NOTE | 2018-08-05 08:52 | RT ---
Pt clear and diminished bilaterally. Pt states he is wheezy, when pt asked me what his breath sounds where and I said Clear pt strained his breathing and forced a wheeze and said Listen now.
[2018-08-05 08:55] VITALS: O2SAT 98
--- NOTE | 2018-08-05 09:30 | PC.NURSE ---
Use of call light. Given apple juice. When I walked back into his room with juice, pt is nodding out although states medications are not working
[2018-08-05 10:03] VITALS: BP 135/68; PULSE 108; RESP 22; O2SAT 92
[2018-08-05 10:49] VITALS: BP 123/56; PULSE 105; RESP 20; O2SAT 97
[2018-08-05 10:56] LABS: Add Manual Diff / Slide Review NO; Basophils Percent Auto 0.5 % (0-2); Hematocrit 36.4 % (41-53); Hemoglobin 11.6 g/dL (13.5-17.5); Lymphocytes Percent Auto 10.3 % (25-40); Mean Corpuscular Hemoglobin 25.8 PG (26-34); Mean Corpuscular Volume 80.7 fL (80-100); Monocytes Percent Auto 5.3 % (3-14); Neutrophils Absolute Auto 10500 /uL (3000-5900); Neutrophils Percent Auto 83.9 % (50-75); Platelet Count 218 X10^3/uL (150-400); Red Blood Cell Count 4.52 X10^6/uL (4.5-5.9); Red Cell Distribution Width 17.4 % (11.6-14.8); White Blood Cell Count 12.4 X10^3/uL (4.5-11.0)
[2018-08-05 11:06] LABS: Creatine Kinase 36 U/L (55-170)
[2018-08-05 11:08] LABS: Alanine Aminotransferase 18 IU/L (21-72); Albumin 3.6 g/dL (3.5-5.0); Albumin Globulin Ratio 1.1 (1.0-2.8); Alkaline Phosphatase 70 U/L (38-126); Aspartate Aminotransferase 15 IU/L (17-59); Bilirubin Total 0.6 mg/dL (0.2-1.3); Blood Urea Nitrogen 7 mg/dL (9-20); Calcium 8.2 mg/dL (8.4-10.2); Carbon Dioxide 34 mmol/L (22-32); Chloride 98 mmol/L (98-107); Estimated Glomerular Filt Rate > 60.0 mL/min (>60); Globulin 3.2 g/dL (1.7-4.1); Glucose 113 mg/dL (70-100); HEMOLYSIS 24 (0-50); Potassium 3.7 mmol/L (3.4-5.1); Sodium 140 mmol/L (137-145); Total Protein 6.8 g/dL (6.3-8.2)
[2018-08-05 11:17] LABS: B Type Natriuretic Peptide < 100.0 (<100)
[2018-08-05 11:19] LABS: Troponin I < 0.012 ng/mL (0.01-0.034)
[2018-08-05 12:32] VITALS: BP 124/60; PULSE 99; RESP 22; O2SAT 96
--- NOTE | 2018-08-06 15:31 | PC.NURSE ---
call back, satisfied with visits, no questions.
== END 2018-08-05 12:34 | disposition home or self-care (01) ==
PROVIDERS: Emergency Provider Emergency Medicine; PCP Physician Assistant
DX: J45.909 Unspecified asthma, uncomplicated (principal); F41.9 Anxiety disorder, unspecified
CPT/HCPCS: 36591; 71045; 80053; 81003; 82550; 83880; 84484; 85025; 93005; 94640; 99283; 99285; J7613

== ENCOUNTER 2018-08-08 10:17 | Emergency (ER) | payer MEDICAID, OTHER, SELFPAY ==
[2018-07-23 10:58] VITALS: BMI 84.1
[2018-08-08 10:19] VITALS: BP 121/69; PULSE 109; RESP 22; O2SAT 94; BMI 81.5
[2018-08-08] MEDS: ALBUTEROL/IPRATROPIUM 3 ML AMPUL INH (10:24)
[2018-08-08 10:26] VITALS: PULSE 74; RESP 12; O2SAT 100
--- NOTE | 2018-08-08 10:49 | PC.NURSE ---
patient missed the urinal and went all over the floor. I mopped it up. will need to collect a better sample
--- NOTE | 2018-08-08 12:18 | ED_ITS ---
HPI - Anxiety <LIZBETH Malone - Last Filed: 08/08/18 21:59> General Chief Complaint: Anxiety Stated Complaint: Anxiety Time Seen by Provider: 08/08/18 12:04 Source: patient Mode of arrival: ambulatory Limitations: no limitations History of Present Illness HPI narrative: 37-year-old male with history of asthma and anxiety that is a nonsmoker here for complaint of anxiety that started last night. He states that he normally takes Ativan to help with his anxiety however he is out of his prescription. He is waiting to see his primary care provider and also counselor here in the next few days. He also complains of having wheeze secondary to his asthma. He denies any discomfort. He is able to speak full sentences. No acute distress. He denies any suicidal ideation or homicidal ideation. He request Ativan to help with his anxiety. He denies any other concerns or complaints at this time. Related Data Home Medications Medication Instructions Recorded Confirmed methadone 95 mg PO QDAY #0 05/07/17 08/08/18 prednisone 10 mg PO BID 08/05/18 08/08/18 Previous Rx's Medication Instructions Recorded fluticasone-salmeterol [Advair 1 puff INH BID #2 inh 04/28/17 Diskus] albuterol sulfate 2 puff INHALATION Q4-6H PRN #18 07/11/18 gram albuterol sulfate 3 ml INH Q4HP PRN #360 ml 07/27/18 olanzapine [Zyprexa Zydis] 10 mg PO BID #60 tab 07/27/18 prednisone 50 mg PO BID #10 tab 07/27/18 lorazepam [Ativan] 1 mg PO BID-TID PRN #5 tab 08/08/18 Allergies Allergy/AdvReac Type Severity Reaction Status Date / Time NSAIDS (Non-Steroidal Allergy Unknown ASTHMA Verified 08/08/18 10:23 Anti-Inflamma FLARE UPS [NSAIDS (NON-STEROIDAL ANTI-INFLAMMA] ibuprofen AdvReac Mild nausea, GI Verified 08/08/18 10:23 upset Review of Systems <LIZBETH Malone - Last Filed: 08/08/18 21:59> Constitutional Denies chills, Denies fever(s), Denies lethargy and Denies weakness Eyes Denies change in vision, Denies eye discharge, Denies irritation and Denies loss of vision ENT Ears, Nose, Mouth, and Throat: Denies change in voice, Denies neck pain and Denies sore throat Cardiovascular Denies chest pain, Denies irregular heart rhythm, Denies lightheadedness, Denies palpitations and Denies orthopnea Respiratory Reports wheezing Gastrointestinal Gastrointestinal: Denies abdominal pain, Denies change in bowel habits, Denies diarrhea, Denies nausea and Denies vomiting Genitourinary Denies hematuria, Denies flank pain, Denies urinary incontinence and Denies urinary urgency Musculoskeletal Denies neck pain Integumentary/Breasts Denies pruritus, Denies erythema, Denies rash and Denies wounds Neurologic Denies confusion, Denies loss of vision and Denies weakness Psychiatric Denies anxiety, Denies confusion, Denies depression, Denies homicidal ideation and Denies suicidal ideation Endocrine Denies palpitations Hematologic/Lymphatic Denies easy bruising Allergic/Immunologic Reports wheezing Exam <LIZBETH Malone - Last Filed: 08/08/18 21:59> Initial Vital Signs Initial Vital Signs: Vital Signs Pulse Rate 109 H 08/08/18 10:19 Respiratory Rate 22 08/08/18 10:19 Blood Pressure 121/69 08/08/18 10:19 Pulse Oximetry 94 08/08/18 10:19 Const General: cooperative and well developed Nutritional Appearance: well nourished Orientation: alert, awake, oriented x3 and not confused [facility] Mouth: oral mucosae normal and moist mucous membranes Eyes Conjunctivae: conjunctivae normal Sclera: sclerae normal Pupils: PERRL EOM: EOM intact bilaterally Resp Effort & Inspection: normal respiratory effort, able to speak in complete sentences, no respiratory distress and no use of accessory muscles Auscultation: clear to auscultation bilaterally, no rales, no rhonchi and wheezes inspiratory wheezes and upper bilaterally Cardio Rate: regular rate Rhythm: regular rhythm Heart Sounds: no click, no gallops, no murmurs and no rubs Pulses: normal peripheral pulses Skin General: no rashes or lesions noted, No jaundice and No petechiae Neuro General: alert, oriented x3, gait normal and no focal motor deficits Speech: speech normal Psych Speech and Movement: speech and movement normal Mood: anxious mood <Maame Haynes MD - Last Filed: 08/09/18 07:38> Initial Vital Signs Initial Vital Signs: Vital Signs Pulse Rate 109 H 08/08/18 10:19 Respiratory Rate 22 08/08/18 10:19 Blood Pressure 121/69 08/08/18 10:19 Pulse Oximetry 94 08/08/18 10:19 Course <LIZBETH Malone - Last Filed: 08/08/18 21:59> Orders Ordered: Discontinued Medications Albuterol (Ventolin) 2.5 mg INH NOW ONE Stop: 08/08/18 12:12 Last Admin: 08/08/18 12:54 Dose: 2.5 mg Albuterol/Ipratropium (Duoneb) 3 ml INH NOW ONE Stop: 08/08/18 10:24 Last Admin: 08/08/18 10:24 Dose: 3 ml Lorazepam (Ativan) 2 mg PO NOW ONE Stop: 08/08/18 12:12 Last Admin: 08/08/18 12:40 Dose: 2 mg Vital Signs - 8 hr 08/08/18 10:19 08/08/18 10:26 Pulse Rate 109 H 74 Respiratory Rate 22 12 Blood Pressure 121/69 Pulse Oximetry 94 100 <Maame Haynes MD - Last Filed: 08/09/18 07:38> Orders Ordered: Discontinued Medications Albuterol (Ventolin) 2.5 mg INH NOW ONE Stop: 08/08/18 12:12 Last Admin: 08/08/18 12:54 Dose: 2.5 mg Albuterol/Ipratropium (Duoneb) 3 ml INH NOW ONE Stop: 08/08/18 10:24 Last Admin: 08/08/18 10:24 Dose: 3 ml Lorazepam (Ativan) 2 mg PO NOW ONE Stop: 08/08/18 12:12 Last Admin: 08/08/18 12:40 Dose: 2 mg Vital Signs - 8 hr 08/08/18 10:19 08/08/18 10:26 Pulse Rate 109 H 74 Respiratory Rate 22 12 Blood Pressure 121/69 Pulse Oximetry 94 100 MDM - Anxiety <LIZBETH Malone - Last Filed: 08/08/18 21:59> Lab Data Lab Results 08/08/18 Range/Units 11:22 Urine RBC 10-30/hpf H (0-5/HPF) Urine WBC 0-1/hpf (0-5/HPF) Ur Squamous Epith Cells 0-1 /hpf Urine Bacteria Occasional (0-1) D (None) Ur Culture Indicated? Cult not indicated Micro UA Comment Not Reportable Urine Dip Bedside Urine Glucose Negative Bedside Urine Bilirubin - Negative Bedside Urine Ketone - Negative Urine Specific [place] 1.015 Bedside Urine Occult Blood + Bedside Urine pH 7.0 Bedside Urine Protein - Negative Bedside Urine Urobilinogen - Negative Bedside Urine Nitrite - Negative Bedside Urine Leukocytes - Negative Esterase MDM Narrative Medical decision making narrative: Patient was given a DuoNeb treatment and albuterol neb treatment which helped his wheezing. He was given Ativan p.o. in the emergency room to help with his anxieties. He is given a small amount of Ativan to cover for anxiety until he can get with his primary care provider and mental health provider. He is instructed to use his relaxation techniques. Follow up with primary care provider the next few days for any worsening symptoms return to the emergency room. <Maame Haynes MD - Last Filed: 08/09/18 07:38> Lab Data Lab Results 08/08/18 Range/Units 11:22 Urine RBC 10-30/hpf H (0-5/HPF) Urine WBC 0-1/hpf (0-5/HPF) Ur Squamous Epith Cells 0-1 /hpf Urine Bacteria Occasional (0-1) D (None) Ur Culture Indicated? Cult not indicated Micro UA Comment Not Reportable Urine Dip Bedside Urine Glucose Negative Bedside Urine Bilirubin - Negative Bedside Urine Ketone - Negative Urine Specific [place] 1.015 Bedside Urine Occult Blood + Bedside Urine pH 7.0 Bedside Urine Protein - Negative Bedside Urine Urobilinogen - Negative Bedside Urine Nitrite - Negative Bedside Urine Leukocytes - Negative Esterase Discharge Plan Departure Patient Disposition: Home Clinical Impression: Acute asthma exacerbation, Anxiety Discharge Date/Time: 08/08/18 13:45 Interventions: ED Discharge Assessment Last Done: 08/08/18 13:51 Instructions: DI for Anxiety -- Adult Activity Restrictions/Additional Instructions: Follow up with her primary care provider in the next couple of days along with mental health provider. Use prescribed asthma medications as directed. Use anxiety medications as already prescribed. Small amount of Ativan is prescribed to help with anxiety exacerbations. For any worsening symptoms return to the emergency room. Prescriptions: New lorazepam [Ativan] 1 mg tablet 1 mg PO BID-TID PRN (Reason: anxiety) Qty: 5 RF: 0 No Action fluticasone-salmeterol [Advair Diskus] 500 MCG/50 MCG blister with device 1 puff INH BID Qty: 2 RF: 5 methadone 10 MG tablet 95 mg PO QDAY Qty: 0 RF: 0 prednisone 10 mg tablet 10 mg PO BID RF: 0 albuterol sulfate 90 mcg/actuation HFA aerosol inhaler 2 puff INHALATION Q4-6H PRN (Reason: shortness of breath or wheezing) Qty: 18 RF: 0 albuterol sulfate 2.5 MG/3 ML solution for nebulization 3 ml INH Q4HP PRN (Reason: Wheezing) Qty: 360 RF: 0 olanzapine [Zyprexa Zydis] 10 mg Tablet,Disintegrating 10 mg PO BID Qty: 60 RF: 0 prednisone 50 mg tablet 50 mg PO BID Qty: 10 RF: 0 Referrals: Gabe Meraz PA-C [Primary Care Provider] -
[2018-08-08 12:37] VITALS: BP 126/68; PULSE 106; RESP 18; O2SAT 92
[2018-08-08] MEDS: LORazepam 0.5 MG TABLET 2 MG PO (12:40)
[2018-08-08] MEDS: ALBUTEROL 2.5 MG/3 ML NEB (ADULT) INH (12:54)
[2018-08-08 12:55] VITALS: PULSE 75; RESP 12; O2SAT 98
[2018-08-08 13:34] VITALS: BP 134/53; PULSE 99; RESP 18; O2SAT 93
[2018-08-08 13:34] LABS: Bacteria Urine Occasional (0-1); Culture Indicated Urine Cult Not Indicated; RBC Urine 10-30/HPF (0-5/HPF); Squamous Epithelial Cell Urine 0-1 /HPF; WBC Urine 0-1/HPF (0-5/HPF)
== END 2018-08-08 13:45 | disposition home or self-care (01) ==
PROVIDERS: Emergency Medicine; Emergency Provider Nurse Practitioner Family; PCP Physician Assistant
DX: F41.9 Anxiety disorder, unspecified (principal); J45.901 Unspecified asthma with (acute) exacerbation
CPT/HCPCS: 81003; 81015; 94150; 94640; 99283; J7613

== ENCOUNTER 2018-08-24 11:13 | Emergency (ER) | payer MEDICAID, OTHER, SELFPAY ==
[2018-07-23 10:58] VITALS: BMI 84.1
[2018-08-24 11:14] VITALS: BP 144/66; PULSE 64; RESP 20; TEMP 36.9; O2SAT 99
[2018-08-24] MEDS: ALBUTEROL/IPRATROPIUM 3 ML AMPUL INH ×2 (11:23→13:30)
[2018-08-24] MEDS: OLANZapine ODT 10 MG TAB 20 MG PO (11:25)
[2018-08-24 11:26] VITALS: PULSE 82; RESP 16; O2SAT 100
--- NOTE | 2018-08-24 11:30 | ED_ITS ---
HPI - Anxiety General Chief Complaint: Anxiety Stated Complaint: anxiety Time Seen by Provider: 08/24/18 11:18 Source: patient and EMS Mode of arrival: EMS Limitations: no limitations History of Present Illness HPI narrative: Patient is a 37-year-old male well known to me presenting with anxiety. He has a history of anxiety. He says he gets anxious and short of breath. He has all morbid obesity and history of asthma. He has not yet taken his Zyprexa for the day they increased his dosage from 10-20 mg but 1000 number of weeks ago he does not feel like it is helping. He is having anxiety now. He was last seen 08/08/2018 he was given a prescription for small number of Ativan. MD complaint: anxiety Related Data Home Medications Medication Instructions Recorded Confirmed methadone 95 mg PO QDAY #0 05/07/17 08/08/18 prednisone 10 mg PO BID 08/05/18 08/08/18 Previous Rx's Medication Instructions Recorded fluticasone-salmeterol [Advair 1 puff INH BID #2 inh 04/28/17 Diskus] albuterol sulfate 2 puff INHALATION Q4-6H PRN #18 07/11/18 gram albuterol sulfate 3 ml INH Q4HP PRN #360 ml 07/27/18 olanzapine [Zyprexa Zydis] 10 mg PO BID #60 tab 07/27/18 prednisone 50 mg PO BID #10 tab 07/27/18 lorazepam [Ativan] 1 mg PO BID-TID PRN #5 tab 08/08/18 Allergies Allergy/AdvReac Type Severity Reaction Status Date / Time NSAIDS (Non-Steroidal Allergy Unknown ASTHMA Verified 08/08/18 10:23 Anti-Inflamma FLARE UPS [NSAIDS (NON-STEROIDAL ANTI-INFLAMMA] ibuprofen AdvReac Mild nausea, GI Verified 08/08/18 10:23 upset Review of Systems Review of Systems All systems reviewed & are unremarkable except as noted in HPI and below Constitutional Denies chills, Denies fever(s), Denies lethargy and Denies weakness Eyes Denies change in vision, Denies eye discharge, Denies irritation and Denies loss of vision Cardiovascular Denies chest pain, Denies irregular heart rhythm, Denies lightheadedness, Denies palpitations and Denies orthopnea Respiratory Reports as per HPI Gastrointestinal Gastrointestinal: Denies abdominal pain, Denies change in bowel habits, Denies diarrhea, Denies nausea and Denies vomiting Musculoskeletal Denies back pain, Denies muscle weakness, Denies numbness and Denies tingling Integumentary/Breasts Denies pruritus, Denies erythema, Denies rash and Denies wounds Neurologic Denies loss of vision, Denies numbness, Denies tingling and Denies weakness Psychiatric Reports as per HPI and Reports anxiety Endocrine Denies palpitations Hematologic/Lymphatic Denies easy bruising [facility] Medical History Anxiety (Acute) Asthma (Acute) Methadone use disorder, mild, in controlled environment (Chronic) Morbid obesity (Chronic) Surgical History H/O vertebral fracture repair (Chronic) History of hip surgery (Chronic) Social History household members: significant other Smoking Status: Never smoker Exam Initial Vital Signs Initial Vital Signs: Vital Signs Temperature 98.4 F 08/24/18 11:14 Pulse Rate 64 08/24/18 11:14 Respiratory Rate 20 08/24/18 11:14 Blood Pressure 144/66 H 08/24/18 11:14 Pulse Oximetry 99 08/24/18 11:14 Const General: cooperative Nutritional Appearance: obese morbidly obese Orientation: alert, awake and oriented x3 Other: Anxious, tearful Neck Neck: normal visual inspection, trachea midline, No lymphadenopathy, No midline deformity and No JVD Lymphatic: No lymphedema Chest Chest: normal inspection of the chest Resp Effort & Inspection: normal respiratory effort and able to speak in complete sentences Auscultation: clear to auscultation bilaterally, no rales, no rhonchi and no wheezes Cardio Rate: regular rate Rhythm: regular rhythm Heart Sounds: no click, no gallops, no murmurs and no rubs Pulses: normal peripheral pulses Extrem General: normal to inspection and full ROM Psych Appearance: disheveled Speech and Movement: speech and movement normal Attitude: cooperative Course Orders Ordered: ED Orders 08/24/18 13:28 RT Respiratory Nebulizer Treat PRN Discontinued Medications Albuterol/Ipratropium (Duoneb) 3 ml INH NOW ONE Stop: 12/05/18 11:19 Last Admin: 08/24/18 11:23 Dose: 3 ml Albuterol/Ipratropium (Duoneb) 3 ml INH NOW ONE Stop: 08/24/18 13:30 Last Admin: 08/24/18 13:30 Dose: 3 ml Lorazepam (Ativan) 1 mg PO NOW ONE Stop: 08/24/18 12:45 Last Admin: 08/24/18 12:45 Dose: 1 mg Olanzapine (Zyprexa Zydis) 20 mg PO NOW ONE Stop: 08/24/18 11:19 Last Admin: 08/24/18 11:25 Dose: 20 mg Vital Signs - 8 hr 08/24/18 11:14 08/24/18 11:26 08/24/18 12:00 Temperature 98.4 F Pulse Rate 64 82 101 H Respiratory Rate 20 16 18 Blood Pressure 144/66 H Blood Pressure [Left Arm] 148/77 H Pulse Oximetry 99 100 95 08/24/18 13:00 08/24/18 13:25 08/24/18 13:35 Temperature Pulse Rate 107 H 92 H 102 H Respiratory Rate 19 20 20 Blood Pressure Blood Pressure [Left Arm] 154/80 H 138/59 L Pulse Oximetry 98 94 96 MDM - Anxiety MDM Narrative Medical decision making narrative: Patient had naproxen albuterol initially. How he is feeling somewhat better but requesting something else for anxiety. He is given 1 dose of Ativan. Requesting 1 more dose of albuterol. He is not actually wheezing his oxygen level is within normal limits. He does get quite anxious and hold his breath is however once he calms down and relaxes his oxygen level goes up easily is while talking. Discharge Plan Departure Patient Disposition: Home Clinical Impression: Anxiety Discharge Date/Time: 08/24/18 13:42 Interventions: ED Discharge Assessment Last Done: 08/24/18 13:41 Instructions: DI for Anxiety -- Adult Activity Restrictions/Additional Instructions: *You have been diagnosed with anxiety *What to do: Need to follow up with her primary in regards to your anxiety medications. You may need be need to be switched to something different *Continue to take medications as directed *Follow up with your primary care provider in 2-3 days *Return to ER if you should have shortness of breath chest pain or any new, worsening or concerning symptoms Prescriptions: No Action fluticasone-salmeterol [Advair Diskus] 500 MCG/50 MCG blister with device 1 puff INH BID Qty: 2 RF: 5 methadone 10 MG tablet 95 mg PO QDAY Qty: 0 RF: 0 prednisone 10 mg tablet 10 mg PO BID RF: 0 albuterol sulfate 90 mcg/actuation HFA aerosol inhaler 2 puff INHALATION Q4-6H PRN (Reason: shortness of breath or wheezing) Qty: 18 RF: 0 albuterol sulfate 2.5 MG/3 ML solution for nebulization 3 ml INH Q4HP PRN (Reason: Wheezing) Qty: 360 RF: 0 olanzapine [Zyprexa Zydis] 10 mg Tablet,Disintegrating 10 mg PO BID Qty: 60 RF: 0 prednisone 50 mg tablet 50 mg PO BID Qty: 10 RF: 0 lorazepam [Ativan] 1 mg tablet 1 mg PO BID-TID PRN (Reason: anxiety) Qty: 5 RF: 0 Referrals: Gabe Meraz PA-C [Primary Care Provider] -
[2018-08-24 12:00] VITALS: BP 148/77; PULSE 101; RESP 18; O2SAT 95
[2018-08-24] MEDS: LORazepam 0.5 MG TABLET 1 MG PO (12:45)
[2018-08-24 13:00] VITALS: BP 154/80; PULSE 107; RESP 19; O2SAT 98
[2018-08-24 13:25] VITALS: PULSE 92; RESP 20; O2SAT 94
[2018-08-24 13:35] VITALS: BP 138/59; PULSE 102; RESP 20; O2SAT 96
== END 2018-08-24 13:42 | disposition home or self-care (01) ==
PROVIDERS: Emergency Provider Emergency Medicine; PCP Physician Assistant
DX: F41.9 Anxiety disorder, unspecified (principal)
CPT/HCPCS: 94640; 99283

== ENCOUNTER 2018-08-26 10:30 | Emergency (ER) | payer MEDICAID, OTHER, SELFPAY ==
[2018-07-23 10:58] VITALS: BMI 84.1
[2018-08-26 10:36] VITALS: BP 137/72; PULSE 105; RESP 20; TEMP 36.7; O2SAT 98
[2018-08-26] MEDS: OLANZapine ODT 10 MG TAB 20 MG PO (10:43)
[2018-08-26] MEDS: ALBUTEROL/IPRATROPIUM 3 ML AMPUL INH (10:57)
[2018-08-26 11:00] VITALS: BP 136/76; PULSE 91; O2SAT 100
[2018-08-26 11:01] VITALS: PULSE 82; RESP 16; O2SAT 90
--- NOTE | 2018-08-26 11:35 | DI.RAD.S_ITS ---
PROCEDURE: XR CHEST 1V INDICATIONS: shortness of breath TECHNIQUE: One view of the chest was acquired. COMPARISON: [facility], CR, XR CHEST 1V, 07/05/2018, 12:39. [facility], CR, XR CHEST 1V, 07/23/2018, 9:10. [facility], CR, XR CHEST 1V, 08/05/2018, 10:14. FINDINGS: Surgical changes and devices: None. Lungs and pleura: No pleural effusions or pneumothorax. No focal infiltrates are seen. Interstitial prominence is seen. Mediastinum: Mediastinal contours appear normal. Heart size is moderately enlarged. Bones and chest wall: No suspicious bony lesions. Overlying soft tissues appear unremarkable. IMPRESSION: Moderate cardiomegaly and interstitial prominence. Concern is raised for congestive heart failure. Dictated by: Cm Alba M.D. on 08/26/2018 at 10:52 Approved by: Cm Alba M.D. on 08/26/2018 at 10:54
--- NOTE | 2018-08-26 11:35 | ED_ITS ---
HPI - Anxiety General Chief Complaint: Anxiety Stated Complaint: Chest Pain --Anxiety Time Seen by Provider: 08/26/18 10:33 Source: patient and EMS Mode of arrival: EMS Limitations: no limitations History of Present Illness HPI narrative: 37-year-old male presents by EMS for evaluation of anxiety and wheezing that has been worsening over the course of the day. He is well known to myself and other staff under similar circumstances. The patient has not taken his psychiatric meds and at least 3 days because he ran out for got to get them refilled. He denies any fever chills nor productive cough. He states his wheezing worsens with any motion. MD complaint: anxiety and shortness of breath Onset (ago): hour(s) Symptoms: dyspnea Severity: moderate Quality: constant Place: home History of similar episodes: Yes Provoking factors: emotional stress Relieving factors: nothing Exacerbating factors: nothing Associated symptoms: shortness of breath Related Data Home Medications Medication Instructions Recorded Confirmed methadone 95 mg PO QDAY #0 05/07/17 08/08/18 prednisone 10 mg PO BID 08/05/18 08/08/18 Previous Rx's Medication Instructions Recorded fluticasone-salmeterol [Advair 1 puff INH BID #2 inh 04/28/17 Diskus] albuterol sulfate 2 puff INHALATION Q4-6H PRN #18 07/11/18 gram albuterol sulfate 3 ml INH Q4HP PRN #360 ml 07/27/18 olanzapine [Zyprexa Zydis] 10 mg PO BID #60 tab 07/27/18 prednisone 50 mg PO BID #10 tab 07/27/18 lorazepam [Ativan] 1 mg PO BID-TID PRN #5 tab 08/08/18 lorazepam [Ativan] 1 mg PO BID-TID PRN #10 tab 08/26/18 olanzapine 20 mg PO DAILY #10 tab 08/26/18 Allergies Allergy/AdvReac Type Severity Reaction Status Date / Time NSAIDS (Non-Steroidal Allergy Unknown ASTHMA Verified 08/08/18 10:23 Anti-Inflamma FLARE UPS [NSAIDS (NON-STEROIDAL ANTI-INFLAMMA] ibuprofen AdvReac Mild nausea, GI Verified 08/08/18 10:23 upset Review of Systems Review of Systems All systems reviewed & are unremarkable except as noted in HPI and below Constitutional Denies chills, Denies fever(s), Denies lethargy and Denies weakness Eyes Denies change in vision, Denies eye discharge, Denies irritation and Denies loss of vision ENT Ears, Nose, Mouth, and Throat: Denies change in voice, Denies neck pain and Denies sore throat Cardiovascular Denies chest pain, Denies irregular heart rhythm, Denies lightheadedness, Denies palpitations, Reports dyspnea, Reports dyspnea on exertion and Denies orthopnea Respiratory Denies cough, Reports dyspnea, Reports dyspnea on exertion and Reports wheezing Gastrointestinal Gastrointestinal: Denies abdominal pain, Denies change in bowel habits, Denies diarrhea, Denies nausea and Denies vomiting Genitourinary Denies hematuria, Denies flank pain, Denies urinary incontinence and Denies urinary urgency Musculoskeletal Denies neck pain Integumentary/Breasts Denies pruritus, Denies erythema, Denies rash and Denies wounds Neurologic Denies confusion, Denies loss of vision and Denies weakness Psychiatric Reports anxiety, Denies confusion, Denies depression, Denies homicidal ideation and Denies suicidal ideation Endocrine Denies palpitations Hematologic/Lymphatic Denies easy bruising Allergic/Immunologic Reports wheezing [facility] Medical History Anxiety (Acute) Asthma (Acute) Methadone use disorder, mild, in controlled environment (Chronic) Morbid obesity (Chronic) Surgical History H/O vertebral fracture repair (Chronic) History of hip surgery (Chronic) Family History Mother Diabetes mellitus Social History household members: significant other Smoking Status: Never smoker Exam Narrative Exam Narrative: GENERAL: 37-year-old male, morbidly obese is tearful and upset. HEAD: Atraumatic. Normocephalic. No temporal or scalp tenderness. EYES: Pupils equal round and reactive. Extraocular motions intact. No scleral icterus. No injection or drainage. ENT: Nose without bleeding, purulent drainage or septal hematoma. Throat without erythema, tonsillar hypertrophy or exudate. Uvula midline. Airway patent. NECK: Trachea midline. No JVD or lymphadenopathy. Supple, nontender, no meningeal signs. CARDIOVASCULAR: Regular rate and rhythm without murmurs, gallops, or rubs. RESPIRATORY: Clear to auscultation. Breath sounds equal bilaterally. No wheezes , rales, or rhonchi. GASTROINTESTINAL: Abdomen soft, non-tender, nondistended. No hepato-splenomegaly , or palpable masses. No guarding. EXTREMITIES: No clubbing, cyanosis, or edema. No joint tenderness, effusion, or edema noted. BACK: Nontender without deformity or crepitance. No flank tenderness. NEURO: AOx3. SKIN: No rash or erythema. Initial Vital Signs Initial Vital Signs: Vital Signs Temperature 98.1 F 08/26/18 10:36 Pulse Rate 105 H 08/26/18 10:36 Respiratory Rate 20 08/26/18 10:36 Blood Pressure 137/72 08/26/18 10:36 Pulse Oximetry 98 08/26/18 10:36 Course Orders Ordered: ED Orders 08/26/18 10:40 EKG-12 Lead Stat 08/26/18 11:35 XR chest 1V Stat Discontinued Medications Albuterol/Ipratropium (Duoneb) 3 ml INH NOW ONE Stop: 08/26/18 10:51 Last Admin: 08/26/18 10:57 Dose: 3 ml Lorazepam (Ativan) 1 mg PO NOW ONE Stop: 08/26/18 11:36 Last Admin: 08/26/18 12:01 Dose: 1 mg Olanzapine (Zyprexa Zydis) 20 mg PO NOW ONE Stop: 08/26/18 10:41 Last Admin: 08/26/18 10:43 Dose: 20 mg Vital Signs - 8 hr 08/26/18 10:36 08/26/18 11:00 08/26/18 11:01 Temperature 98.1 F Pulse Rate 105 H 91 H 82 Respiratory Rate 20 16 Blood Pressure 137/72 Blood Pressure [Right Wrist] 136/76 Pulse Oximetry 98 100 90 L 08/26/18 13:45 Temperature Pulse Rate 94 H Respiratory Rate 18 Blood Pressure 138/69 Blood Pressure [Right Wrist] Pulse Oximetry 93 MDM - Anxiety Lab Data Urine Dip Bedside Urine Glucose Negative Bedside Urine Bilirubin - Negative Bedside Urine Ketone - Negative Urine Specific [place] 1.015 Bedside Urine Occult Blood - Negative Bedside Urine pH 8.0 Bedside Urine Protein - Negative Bedside Urine Urobilinogen +/- 1mg Bedside Urine Nitrite - Negative Bedside Urine Leukocytes - Negative Esterase Discharge Plan Departure Patient Disposition: Home Clinical Impression: Anxiety Discharge Date/Time: 08/26/18 13:49 Interventions: ED Discharge Assessment Last Done: 08/26/18 13:45 Instructions: Anxiety Disorders Activity Restrictions/Additional Instructions: *You have been diagnosed with [ anxiety ] *What to do: *Take medications as directed *Follow up with your primary care provider in 2-3 days, call for an appointment. Let them know you were seen in the Emergency Department and that we ask that you be seen in follow up *Return to ER if you should have any new, worsening or concerning symptoms Prescriptions: New lorazepam [Ativan] 1 mg tablet 1 mg PO BID-TID PRN (Reason: anxiety) Qty: 10 RF: 0 olanzapine 20 mg tablet 20 mg PO DAILY Qty: 10 RF: 0 No Action fluticasone-salmeterol [Advair Diskus] 500 MCG/50 MCG blister with device 1 puff INH BID Qty: 2 RF: 5 methadone 10 MG tablet 95 mg PO QDAY Qty: 0 RF: 0 prednisone 10 mg tablet 10 mg PO BID RF: 0 albuterol sulfate 90 mcg/actuation HFA aerosol inhaler 2 puff INHALATION Q4-6H PRN (Reason: shortness of breath or wheezing) Qty: 18 RF: 0 albuterol sulfate 2.5 MG/3 ML solution for nebulization 3 ml INH Q4HP PRN (Reason: Wheezing) Qty: 360 RF: 0 olanzapine [Zyprexa Zydis] 10 mg Tablet,Disintegrating 10 mg PO BID Qty: 60 RF: 0 prednisone 50 mg tablet 50 mg PO BID Qty: 10 RF: 0 lorazepam [Ativan] 1 mg tablet 1 mg PO BID-TID PRN (Reason: anxiety) Qty: 5 RF: 0
[2018-08-26] MEDS: LORazepam 0.5 MG TABLET 1 MG PO (12:01)
[2018-08-26 13:45] VITALS: BP 138/69; PULSE 94; RESP 18; O2SAT 93
== END 2018-08-26 13:49 | disposition home or self-care (01) ==
PROVIDERS: Emergency Provider Emergency Medicine; PCP Physician Assistant
DX: F41.9 Anxiety disorder, unspecified (principal)
CPT/HCPCS: 71045; 81003; 93005; 93010; 94640; 99283; 99285

== ENCOUNTER 2018-08-29 19:44 | Emergency (ER) | payer MEDICAID, OTHER, SELFPAY ==
[2018-07-23 10:58] VITALS: BMI 84.1
[2018-08-29 19:49] VITALS: BP 135/84; PULSE 110; RESP 22; TEMP 37.1; O2SAT 92; BMI 81.5
--- NOTE | 2018-08-29 19:49 | ED.GENADULT ---
HPI - General Adult General Chief complaint: Anxiety Stated complaint: anxiety Time Seen by Provider: 08/29/18 19:47 Source: patient Mode of arrival: EMS Limitations: no limitations History of Present Illness HPI narrative: This is a 37-year-old male who comes to the emergency department with complaint of anxiety. Patient states his symptoms increased this evening about 5:00 a.m.. Patient states that he has not taken his Zyprexa or Ativan for several days. Patient saw primary care recently but states that it was a different physician and he did not want to refill his medications so none of them refilled. His normal primary care is Dr. Meraz but this was another physician. Patient is denying any chest pain, he denies any shortness of breath he denies any fevers, he denies any nausea or vomiting. No diarrhea or constipation or urinary issues. He states he hurts on the left side of his body all over. Patient states he does not feel tight or wheezy or that his asthma has flared today. Patient is denying any other symptoms. Patient was seen by myself and the last month and at that time he had left his prescriptions and another family member's house [place] the [place]. Patient had a refill from Dr. Arizmendi for Zyprexa and Ativan on 08/26/2018 for 10 tablets. Patient states he lost those prescriptions. Related Data Home Medications Medication Instructions Recorded Confirmed methadone 95 mg PO QDAY #0 05/07/17 08/08/18 prednisone 10 mg PO BID 08/05/18 08/08/18 Previous Rx's Medication Instructions Recorded fluticasone-salmeterol [Advair 1 puff INH BID #2 inh 04/28/17 Diskus] albuterol sulfate 2 puff INHALATION Q4-6H PRN #18 07/11/18 gram albuterol sulfate 3 ml INH Q4HP PRN #360 ml 07/27/18 olanzapine [Zyprexa Zydis] 10 mg PO BID #60 tab 07/27/18 prednisone 50 mg PO BID #10 tab 07/27/18 lorazepam [Ativan] 1 mg PO BID-TID PRN #5 tab 08/08/18 lorazepam [Ativan] 1 mg PO BID-TID PRN #10 tab 08/26/18 olanzapine 20 mg PO DAILY #10 tab 08/26/18 olanzapine [Zyprexa] 20 mg PO DAILY #5 tab 08/29/18 Allergies Allergy/AdvReac Type Severity Reaction Status Date / Time NSAIDS (Non-Steroidal Allergy Unknown ASTHMA Verified 08/08/18 10:23 Anti-Inflamma FLARE UPS [NSAIDS (NON-STEROIDAL ANTI-INFLAMMA] ibuprofen AdvReac Mild nausea, GI Verified 08/08/18 10:23 upset Review of Systems Review of Systems All systems reviewed & are unremarkable except as noted in HPI and below Constitutional Denies chills, Denies fever(s) and Denies weakness Cardiovascular Denies chest pain, Denies irregular heart rhythm, Denies lightheadedness, Denies palpitations, Denies dyspnea and Denies dyspnea on exertion Respiratory Denies chest congestion, Denies cough, Denies dyspnea, Denies dyspnea on exertion, Denies stridor and Denies wheezing Gastrointestinal Gastrointestinal: Denies abdominal pain, Denies change in bowel habits, Denies constipation, Denies diarrhea, Denies nausea and Denies vomiting Genitourinary Denies difficulty urinating Musculoskeletal Denies tingling and Reports other (pain on left side of body) Integumentary/Breasts Denies rash Neurologic Denies sensory deficit, Denies tingling, Denies paresthesias and Denies weakness Endocrine Denies palpitations Allergic/Immunologic Denies wheezing REPLACED BY [facility] Medical History Anxiety (Acute) Asthma (Acute) Methadone use disorder, mild, in controlled environment (Chronic) Morbid obesity (Chronic) Surgical History H/O vertebral fracture repair (Chronic) History of hip surgery (Chronic) Social History household members: significant other Smoking Status: Never smoker Exam Narrative Exam Narrative: GENERAL: Alert and oriented x three, obese male, patient is tearful. Patient is sitting in wheelchair. HEENT: Head normocephalic, atraumatic, EOMI, pupils reactive, face symmetric, moist mucous membranes NECK: Supple, full range of motion CARDIOVASCULAR: Regular rate and rhythm without murmurs, rubs or gallops. RESPIRATORY: Breath sounds equal bilaterally, no wheezes, no crackles, no rales or rhonchi. No tachypnea. No accessory muscle use. Patient speaks in full sentences. ABDOMEN: Soft, nontender. Normoactive bowel sounds all 4 quadrants. No guarding or rebound, rigidity, no mass : No CVA tenderness EXTREMITIES: Normal range of motion, no clubbing or edema. Neurovascularly intact. NEUROLOGICAL: Cranial nerves II through XII grossly intact. Moving all extremities. SKIN: Warm, dry, no petechiae, no rashes or lesions. PSYCH: anxiety. Initial Vital Signs Initial Vital Signs: Vital Signs Temperature 98.8 F 08/29/18 19:49 Pulse Rate 110 H 08/29/18 19:49 Respiratory Rate 22 08/29/18 19:49 Blood Pressure 135/84 08/29/18 19:49 Pulse Oximetry 92 08/29/18 19:49 Course Orders Ordered: ED Orders 08/29/18 19:51 XR chest 1V Stat EKG-12 Lead Stat Discontinued Medications Lorazepam (Ativan) 1 mg PO NOW ONE Stop: 08/29/18 20:54 Last Admin: 08/29/18 21:02 Dose: 1 mg Olanzapine (Zyprexa Zydis) 20 mg PO NOW ONE Stop: 08/29/18 19:51 Last Admin: 08/29/18 20:01 Dose: 20 mg Vital Signs - 8 hr 08/29/18 19:49 08/29/18 21:12 Temperature 98.8 F Pulse Rate 110 H 100 H Respiratory Rate 22 23 Blood Pressure 135/84 Blood Pressure [Left Wrist] 130/78 Pulse Oximetry 92 94 Medical Decision Making Imaging Data Chest x-ray: Radiologist's impression: [address] [address] XRay Report Signed Patient: Babatunde Fitzgerald KMR#: [id number] : 1980Acct:[id number] Age/Sex: 37 / MDate of Service: 08/29/18 Loc: ED Accession Number: [id number] Procedure: XR chest 1V Ordering Provider: Concepcion Damian D.O. PROCEDURE: XR CHEST 1V INDICATIONS: anxiety TECHNIQUE: One view of the chest was acquired. COMPARISON: [facility], BERTHA, XR CHEST 1V, 07/23/2018, 9:10. [facility], BERTHA, CHEST 1 VIEW, 12/29/2017, 12:33. [facility], CR, XR CHEST 1 VIEW, 08/10/2018, 12:58. [facility], CR, XR CHEST 1V, 08/26/2018, 11:43. FINDINGS: Surgical changes and devices: None. Lungs and pleura: No pleural effusions or pneumothorax. Mild perihilar prominence appears unchanged. Mediastinum: Mediastinal contours appear normal. Heart size is normal. Bones and chest wall: No suspicious bony lesions. Overlying soft tissues appear unremarkable. IMPRESSION: Mild perihilar prominence appears unchanged. Dictated by: Alex Beltran M.D. on 08/29/2018 at 20:20 Approved by: Alex Beltran M.D. on 08/29/2018 at 20:24 ECG Data Attestation: I personally reviewed and interpreted this ECG as follows: Prior ECG tracings: available for review Interpretation: Sinus tachycardia rate of 102, RBBB with pr 116, qrs 124, qtc of 416. Appears similar to prior 08/26/18. MDM Narrative Medical decision making narrative: Patient comes in with complaint of anxiety. He has felt that zyprexa is helpful and also in conjunction with lorazepam. Patient states he has lost rx's the last two visits in the ER with myself and on review with other providers on occassion, the last visit was 08/26/18 and given rx for 10tabs of zyprexa and lorazepam. Discussed we can give dose of zyprexa in department. Patient cannot have recurrent controlled substances through the department. He did state that primary care did not refill but was also not his normal provider. Chest Xray and EKG appear similar to prior and patient has no other symptoms. On recheck after Zyprexa patient states he is still anxious. Given dose of lorazapam. Patient states he has office visit this with PCP. He states his other medications were filled at last visit and he has been taking methadone regularly. Patient is also requesting juice and ride home. Discharge Plan Departure Patient Disposition: Home Clinical Impression: Anxiety Discharge Date/Time: 08/29/18 21:14 Interventions: ED Discharge Assessment Last Done: 08/29/18 21:13 Instructions: Anxiety and Panic Attacks (Alternative Therapy) Activity Restrictions/Additional Instructions: Follow up with Dr. Meraz your primary care provider. Follow up at your appointment on , you need to see your physician regularly for refills of controlled substances as well as your normal medications. Your Zyprexa prescription has been sent to [facility] you can pick it up there. Return for fevers, new chest pain, shortness of breath, passing out, weakness or other new or concerning symptoms. Prescriptions: New olanzapine [Zyprexa] 20 mg tablet 20 mg PO DAILY Qty: 5 RF: 0 No Action fluticasone-salmeterol [Advair Diskus] 500 MCG/50 MCG blister with device 1 puff INH BID Qty: 2 RF: 5 methadone 10 MG tablet 95 mg PO QDAY Qty: 0 RF: 0 prednisone 10 mg tablet 10 mg PO BID RF: 0 lorazepam [Ativan] 1 mg tablet 1 mg PO BID-TID PRN (Reason: anxiety) Qty: 10 RF: 0 olanzapine 20 mg tablet 20 mg PO DAILY Qty: 10 RF: 0 albuterol sulfate 90 mcg/actuation HFA aerosol inhaler 2 puff INHALATION Q4-6H PRN (Reason: shortness of breath or wheezing) Qty: 18 RF: 0 albuterol sulfate 2.5 MG/3 ML solution for nebulization 3 ml INH Q4HP PRN (Reason: Wheezing) Qty: 360 RF: 0 olanzapine [Zyprexa Zydis] 10 mg Tablet,Disintegrating 10 mg PO BID Qty: 60 RF: 0 prednisone 50 mg tablet 50 mg PO BID Qty: 10 RF: 0 lorazepam [Ativan] 1 mg tablet 1 mg PO BID-TID PRN (Reason: anxiety) Qty: 5 RF: 0 Referrals: Gabe Meraz PA-C [Primary Care Provider] -
[2018-08-29] MEDS: OLANZapine ODT 10 MG TAB 20 MG PO (20:01)
--- NOTE | 2018-08-29 20:04 | ED_ITS ---
HPI - General Adult General Chief complaint: Anxiety Stated complaint: anxiety Time Seen by Provider: 08/29/18 19:47 Source: patient Mode of arrival: EMS Limitations: no limitations History of Present Illness HPI narrative: This is a 37-year-old male who comes to the emergency department with complaint of anxiety. Patient states his symptoms increased this evening about 5:00 a.m.. Patient states that he has not taken his Zyprexa or Ativan for several days. Patient saw primary care recently but states that it was a different physician and he did not want to refill his medications so none of them refilled. His normal primary care is Dr. Meraz but this was another physician. Patient is denying any chest pain, he denies any shortness of breath he denies any fevers, he denies any nausea or vomiting. No diarrhea or constipation or urinary issues. He states he hurts on the left side of his body all over. Patient states he does not feel tight or wheezy or that his asthma has flared today. Patient is denying any other symptoms. Patient was seen by myself and the last month and at that time he had left his prescriptions and another family member's house across the state. Patient had a refill from Dr. Arizmendi for Zyprexa and Ativan on 08/26/2018 for 10 tablets. Patient states he lost those prescriptions. Related Data Home Medications Medication Instructions Recorded Confirmed methadone 95 mg PO QDAY #0 05/07/17 08/08/18 prednisone 10 mg PO BID 08/05/18 08/08/18 Previous Rx's Medication Instructions Recorded fluticasone-salmeterol [Advair 1 puff INH BID #2 inh 04/28/17 Diskus] albuterol sulfate 2 puff INHALATION Q4-6H PRN #18 07/11/18 gram albuterol sulfate 3 ml INH Q4HP PRN #360 ml 07/27/18 olanzapine [Zyprexa Zydis] 10 mg PO BID #60 tab 07/27/18 prednisone 50 mg PO BID #10 tab 07/27/18 lorazepam [Ativan] 1 mg PO BID-TID PRN #5 tab 08/08/18 lorazepam [Ativan] 1 mg PO BID-TID PRN #10 tab 08/26/18 olanzapine 20 mg PO DAILY #10 tab 08/26/18 olanzapine [Zyprexa] 20 mg PO DAILY #5 tab 08/29/18 Allergies Allergy/AdvReac Type Severity Reaction Status Date / Time NSAIDS (Non-Steroidal Allergy Unknown ASTHMA Verified 08/08/18 10:23 Anti-Inflamma FLARE UPS [NSAIDS (NON-STEROIDAL ANTI-INFLAMMA] ibuprofen AdvReac Mild nausea, GI Verified 08/08/18 10:23 upset Review of Systems Review of Systems All systems reviewed & are unremarkable except as noted in HPI and below Constitutional Denies chills, Denies fever(s) and Denies weakness Cardiovascular Denies chest pain, Denies irregular heart rhythm, Denies lightheadedness, Denies palpitations, Denies dyspnea and Denies dyspnea on exertion Respiratory Denies chest congestion, Denies cough, Denies dyspnea, Denies dyspnea on exertion, Denies stridor and Denies wheezing Gastrointestinal Gastrointestinal: Denies abdominal pain, Denies change in bowel habits, Denies constipation, Denies diarrhea, Denies nausea and Denies vomiting Genitourinary Denies difficulty urinating Musculoskeletal Denies tingling and Reports other (pain on left side of body) Integumentary/Breasts Denies rash Neurologic Denies sensory deficit, Denies tingling, Denies paresthesias and Denies weakness Endocrine Denies palpitations Allergic/Immunologic Denies wheezing [facility] Medical History Anxiety (Acute) Asthma (Acute) Methadone use disorder, mild, in controlled environment (Chronic) Morbid obesity (Chronic) Surgical History H/O vertebral fracture repair (Chronic) History of hip surgery (Chronic) Social History household members: significant other Smoking Status: Never smoker Exam Narrative Exam Narrative: GENERAL: Alert and oriented x three, obese male, patient is tearful. Patient is sitting in wheelchair. HEENT: Head normocephalic, atraumatic, EOMI, pupils reactive, face symmetric, moist mucous membranes NECK: Supple, full range of motion CARDIOVASCULAR: Regular rate and rhythm without murmurs, rubs or gallops. RESPIRATORY: Breath sounds equal bilaterally, no wheezes, no crackles, no rales or rhonchi. No tachypnea. No accessory muscle use. Patient speaks in full sentences. ABDOMEN: Soft, nontender. Normoactive bowel sounds all 4 quadrants. No guarding or rebound, rigidity, no mass : No CVA tenderness EXTREMITIES: Normal range of motion, no clubbing or edema. Neurovascularly intact. NEUROLOGICAL: Cranial nerves II through XII grossly intact. Moving all extremities. SKIN: Warm, dry, no petechiae, no rashes or lesions. PSYCH: anxiety. Initial Vital Signs Initial Vital Signs: Vital Signs Temperature 98.8 F 08/29/18 19:49 Pulse Rate 110 H 08/29/18 19:49 Respiratory Rate 22 08/29/18 19:49 Blood Pressure 135/84 08/29/18 19:49 Pulse Oximetry 92 08/29/18 19:49 Course Orders Ordered: ED Orders 08/29/18 19:51 XR chest 1V Stat EKG-12 Lead Stat Discontinued Medications Lorazepam (Ativan) 1 mg PO NOW ONE Stop: 08/29/18 20:54 Last Admin: 08/29/18 21:02 Dose: 1 mg Olanzapine (Zyprexa Zydis) 20 mg PO NOW ONE Stop: 08/29/18 19:51 Last Admin: 08/29/18 20:01 Dose: 20 mg Vital Signs - 8 hr 08/29/18 19:49 08/29/18 21:12 Temperature 98.8 F Pulse Rate 110 H 100 H Respiratory Rate 22 23 Blood Pressure 135/84 Blood Pressure [Left Wrist] 130/78 Pulse Oximetry 92 94 Medical Decision Making Imaging Data Chest x-ray: Radiologist's impression: [address] [address] XRay Report Signed Patient: Babatunde Fitzgerald KMR#: [id number] : 1980Acct:[id number] Age/Sex: 37 / MDate of Service: 08/29/18 Loc: ED Accession Number: [id number] Procedure: XR chest 1V Ordering Provider: Concepcion Damian D.O. PROCEDURE: XR CHEST 1V INDICATIONS: anxiety TECHNIQUE: One view of the chest was acquired. COMPARISON: [facility], BERTHA, XR CHEST 1V, 07/23/2018, 9:10. [facility], BERTHA, CHEST 1 VIEW, 12/29/2017, 12:33. [facility], CR, XR CHEST 1 VIEW, , 12:58. [facility], CR, XR CHEST 1V, 08/26/2018, 11:43. FINDINGS: Surgical changes and devices: None. Lungs and pleura: No pleural effusions or pneumothorax. Mild perihilar prominence appears unchanged. Mediastinum: Mediastinal contours appear normal. Heart size is normal. Bones and chest wall: No suspicious bony lesions. Overlying soft tissues appear unremarkable. IMPRESSION: Mild perihilar prominence appears unchanged. Dictated by: Alex Beltran M.D. on 08/29/2018 at 20:20 Approved by: Alex Beltran M.D. on 08/29/2018 at 20:24 ECG Data Attestation: I personally reviewed and interpreted this ECG as follows: Prior ECG tracings: available for review Interpretation: Sinus tachycardia rate of 102, RBBB with pr 116, qrs 124, qtc of 416. Appears similar to prior 08/26/18. MDM Narrative Medical decision making narrative: Patient comes in with complaint of anxiety. He has felt that zyprexa is helpful and also in conjunction with lorazepam. Patient states he has lost rx's the last two visits in the ER with myself and on review with other providers on occassion, the last visit was 08/26/18 and given rx for 10tabs of zyprexa and lorazepam. Discussed we can give dose of zyprexa in department. Patient cannot have recurrent controlled substances through the department. He did state that primary care did not refill but was also not his normal provider. Chest Xray and EKG appear similar to prior and patient has no other symptoms. On recheck after Zyprexa patient states he is still anxious. Given dose of lorazapam. Patient states he has office visit this with PCP. He states his other medications were filled at last visit and he has been taking methadone regularly. Patient is also requesting juice and ride home. Discharge Plan Departure Patient Disposition: Home Clinical Impression: Anxiety Discharge Date/Time: 08/29/18 21:14 Interventions: ED Discharge Assessment Last Done: 08/29/18 21:13 Instructions: Anxiety and Panic Attacks (Alternative Therapy) Activity Restrictions/Additional Instructions: Follow up with Dr. Meraz your primary care provider. Follow up at your appointment on , you need to see your physician regularly for refills of controlled substances as well as your normal medications. Your Zyprexa prescription has been sent to [facility] you can pick it up there. Return for fevers, new chest pain, shortness of breath, passing out, weakness or other new or concerning symptoms. Prescriptions: New olanzapine [Zyprexa] 20 mg tablet 20 mg PO DAILY Qty: 5 RF: 0 No Action fluticasone-salmeterol [Advair Diskus] 500 MCG/50 MCG blister with device 1 puff INH BID Qty: 2 RF: 5 methadone 10 MG tablet 95 mg PO QDAY Qty: 0 RF: 0 prednisone 10 mg tablet 10 mg PO BID RF: 0 lorazepam [Ativan] 1 mg tablet 1 mg PO BID-TID PRN (Reason: anxiety) Qty: 10 RF: 0 olanzapine 20 mg tablet 20 mg PO DAILY Qty: 10 RF: 0 albuterol sulfate 90 mcg/actuation HFA aerosol inhaler 2 puff INHALATION Q4-6H PRN (Reason: shortness of breath or wheezing) Qty: 18 RF: 0 albuterol sulfate 2.5 MG/3 ML solution for nebulization 3 ml INH Q4HP PRN (Reason: Wheezing) Qty: 360 RF: 0 olanzapine [Zyprexa Zydis] 10 mg Tablet,Disintegrating 10 mg PO BID Qty: 60 RF: 0 prednisone 50 mg tablet 50 mg PO BID Qty: 10 RF: 0 lorazepam [Ativan] 1 mg tablet 1 mg PO BID-TID PRN (Reason: anxiety) Qty: 5 RF: 0 Referrals: Gabe Meraz PA-C [Primary Care Provider] -
--- NOTE | 2018-08-29 20:04 | PC.NURSE ---
Pt summoned me to bedside to show me open areas to left and right side of scrotum. Surrounding skin clean, dry. Pt reports these skin ulcers are not being treated at this time.
[2018-08-29] MEDS: LORazepam 0.5 MG TABLET 1 MG PO (21:02)
[2018-08-29 21:12] VITALS: BP 130/78; PULSE 100; RESP 23; O2SAT 94
== END 2018-08-29 21:14 | disposition home or self-care (01) ==
PROVIDERS: Emergency Provider Emergency Medicine; PCP Physician Assistant
DX: F41.9 Anxiety disorder, unspecified (principal)
CPT/HCPCS: 71045; 93005; 93010; 99282; 99284

== ENCOUNTER 2018-09-03 00:57 | Inpatient (IN) | payer MEDICAID, OTHER, SELFPAY ==
[2018-07-23 10:58] VITALS: BMI 84.1
[2018-09-03] VITALS (16 sets, daily range): BP systolic 99–166; BP diastolic 51–76; PULSE 86–111; RESP 16–27; TEMP 36.2–36.9; O2SAT 89–99; BMI 85.8
--- NOTE | 2018-09-03 00:59 | ED_ITS ---
HPI - GI Bleed General Chief complaint: Wound/Laceration Stated complaint: Rectal Bleeding Time Seen by Provider: 09/03/18 00:59 Source: patient Mode of arrival: EMS Limitations: no limitations History of Present Illness HPI Narrative: Patient is a 37-year-old male well known to this emergency department having been seen here multiple times in the past for asthma and also anxiety. He arrives by EMS this evening because he stated that he had rectal bleeding. It appears upon arrival that the patient was sitting on his chair at home. He did pains on the time. He states that he stood up from the chair and notice ?a lot? of blood on the pad that was on the chair. He reports pain in his buttocks. He states the pain has been worsening over the past couple days. He is not complaining of any shortness of breath or anxiety issues today. Related Data Home Medications Medication Instructions Recorded Confirmed methadone 95 mg PO QDAY #0 05/07/17 08/08/18 prednisone 10 mg PO BID 08/05/18 08/08/18 Previous Rx's Medication Instructions Recorded fluticasone-salmeterol [Advair 1 puff INH BID #2 inh 04/28/17 Diskus] albuterol sulfate 2 puff INHALATION Q4-6H PRN #18 07/11/18 gram albuterol sulfate 3 ml INH Q4HP PRN #360 ml 07/27/18 olanzapine [Zyprexa Zydis] 10 mg PO BID #60 tab 07/27/18 prednisone 50 mg PO BID #10 tab 07/27/18 lorazepam [Ativan] 1 mg PO BID-TID PRN #5 tab 08/08/18 lorazepam [Ativan] 1 mg PO BID-TID PRN #10 tab 08/26/18 olanzapine 20 mg PO DAILY #10 tab 08/26/18 olanzapine [Zyprexa] 20 mg PO DAILY #5 tab 08/29/18 Allergies Allergy/AdvReac Type Severity Reaction Status Date / Time NSAIDS (Non-Steroidal Allergy Unknown ASTHMA Verified 09/03/18 01:14 Anti-Inflamma FLARE UPS [NSAIDS (NON-STEROIDAL ANTI-INFLAMMA] ibuprofen AdvReac Mild nausea, GI Verified 09/03/18 01:14 upset Review of Systems Constitutional Denies fever(s) and Denies headache(s) ENT Ears, Nose, Mouth, and Throat: Denies headache(s) Cardiovascular Denies chest pain and Denies dyspnea Respiratory Denies dyspnea Gastrointestinal Gastrointestinal: Denies abdominal pain, Denies change in stool character, Denies nausea and Denies vomiting Genitourinary Denies dysuria Musculoskeletal Denies myalgias and Denies arthralgias Integumentary/Breasts Reports lesions, Reports skin ulcer and Reports sores Neurologic Denies headache(s) Hematologic/Lymphatic Denies easy bleeding and Denies easy bruising [facility] Social History household members: significant other Smoking Status: Never smoker Exam Initial Vital Signs Initial Vital Signs: Vital Signs Temperature 98.4 F 09/03/18 01:14 Pulse Rate 111 H 09/03/18 01:14 Respiratory Rate 24 09/03/18 01:14 Blood Pressure 160/51 H 09/03/18 01:14 Pulse Oximetry 93 09/03/18 01:14 Const General: No healthy appearing and anxious Nutritional Appearance: obese Orientation: alert, awake and oriented x3 HENMT Head: normal to inspection and normocephalic Resp Effort & Inspection: normal respiratory effort Cardio Rate: tachycardic Rhythm: regular rhythm GI Inspection: non-distended Skin Other: Patient with significant areas of skin breakdown on his buttocks and his perineum and underside of his scrotum. His scrotum is swollen. No bleeding from these skin ulcerations but do appear to be macerated and foul-smelling with purulent drainage. Does have surrounding erythema. Neuro General: alert, awake and oriented x3 Extrem General: normal to inspection and capillary refill normal Psych Appearance: grossly normal and well kempt Course Orders Ordered: ED Orders 09/03/18 01:55 Basic Metabolic Panel Stat Blood Culture Stat Complete Blood Count AUTO DIFF Stat Lactate (Lactic Acid) Stat Procalcitonin Stat 09/03/18 02:27 Wound Culture and Gram Stain Stat 09/03/18 02:28 Wound Culture and Gram Stain Routine 09/03/18 02:31 Wound Culture and Gram Stain Routine Discontinued Medications Hydromorphone HCl (Dilaudid) 1 mg IM NOW ONE Stop: 09/03/18 02:16 Last Admin: 09/03/18 02:22 Dose: 1 mg Vital Signs - 8 hr 09/03/18 01:14 09/03/18 03:21 Temperature 98.4 F Pulse Rate 111 H 108 H Respiratory Rate 24 22 Blood Pressure 160/51 H Blood Pressure [Left Arm] 166/58 H Pulse Oximetry 93 94 MDM - GI Bleed Lab Data Attestation: I reviewed the patient's lab results. Result diagrams: 09/03/18 01:55 09/03/18 01:55 Lab Results 09/03/18 09/03/18 09/03/18 Range/Units 01:55 01:55 01:55 WBC 7.3 (4.5-11.0) X10^3/uL RBC 4.64 (4.5-5.9) X10^6/uL Hgb 12.0 L (13.5-17.5) g/dL Hct 38.1 L (41-53) % MCV 82.0 (80-100) fL MCH 25.8 L (26-34) PG MCHC 31.4 (30-36) % RDW 16.5 H (11.6-14.8) % Plt Count 233 (150-400) X10^3/uL Neut % (Auto) 75.8 H (50-75) % Lymph % (Auto) 16.8 L (25-40) % Antelope % (Auto) 6.9 (3-14) % Eos % (Auto) 0.0 L (2-4) % Baso % (Auto) 0.5 (0-2) % Neut # (Auto) 5500 (3014-4484) /uL Sodium 142 (137-145) mmol/L Potassium 3.5 (3.4-5.1) mmol/L Chloride 101 (98-107) mmol/L Carbon Dioxide 31 (22-32) mmol/L BUN 8 L (9-20) mg/dL Creatinine 0.60 L (0.66-1.25) mg/dL Estimated GFR > 60.0 (>60) mL/min BUN/Creatinine Ratio 13.3 (6-22) Glucose 122 H (70-100) mg/dL Lactate (0.7-2.1) mmol/L Calcium 8.2 L (8.4-10.2) mg/dL Procalcitonin < 0.05 (<0.5) ng/mL 09/03/18 Range/Units 01:55 WBC (4.5-11.0) X10^3/uL RBC (4.5-5.9) X10^6/uL Hgb (13.5-17.5) g/dL Hct (41-53) % MCV (80-100) fL MCH (26-34) PG MCHC (30-36) % RDW (11.6-14.8) % Plt Count (150-400) X10^3/uL Neut % (Auto) (50-75) % Lymph % (Auto) (25-40) % Antelope % (Auto) (3-14) % Eos % (Auto) (2-4) % Baso % (Auto) (0-2) % Neut # (Auto) (9150-6143) /uL Sodium (137-145) mmol/L Potassium (3.4-5.1) mmol/L Chloride (98-107) mmol/L Carbon Dioxide (22-32) mmol/L BUN (9-20) mg/dL Creatinine (0.66-1.25) mg/dL Estimated GFR (>60) mL/min BUN/Creatinine Ratio (6-22) Glucose (70-100) mg/dL Lactate 1.1 (0.7-2.1) mmol/L Calcium (8.4-10.2) mg/dL Procalcitonin (<0.5) ng/mL MDM Narrative Medical decision making narrative: Patient with decubitus ulcers on his buttocks and perineum the under side of the scrotum. They appear worse today than what I have seen them in the past when I have evaluated him here in the emergency department. They do appear to be infected. Foul-smelling. Cultures were obtained. A PICC line was started secondary to the difficulty of obtaining IVs and the potential for him needing long-term antibiotics. Vancomycin and Zosyn to cover Pseudomonas were started here in the emergency department. Discussed the case with night hospitalist to accept the patient for admission. Discussed admission with the patient who expressed understanding and agreement. Discharge Plan Departure Patient Disposition: Admitted As Inpatient Clinical Impression: Decubitus ulcer, infected, Asthma, Anxiety
--- NOTE | 2018-09-03 01:22 | PC.NURSE ---
Assessed pt to place PIV, unable to find adequate vein. Primary RN aware.
--- NOTE | 2018-09-03 01:24 | PC.NURSE ---
Calling [facility] for access.
--- NOTE | 2018-09-03 01:27 | PC.NURSE ---
Lab called to come and attempt lab draw.
--- NOTE | 2018-09-03 01:50 | PC.NURSE ---
Repaged [facility] at 0150.
[2018-09-03] MEDS: HYDROMORPHONE 2 MG INJ 1 MG IM (02:22)
[2018-09-03 02:23] LABS: Add Manual Diff / Slide Review NO; Basophils Percent Auto 0.5 % (0-2); Hematocrit 38.1 % (41-53); Lymphocytes Percent Auto 16.8 % (25-40); Mean Corpuscular HGB Conc 31.4 % (30-36); Mean Corpuscular Hemoglobin 25.8 PG (26-34); Monocytes Percent Auto 6.9 % (3-14); Neutrophils Absolute Auto 5500 /uL (1500-7000); Neutrophils Percent Auto 75.8 % (50-75); Platelet Count 233 X10^3/uL (150-400); Red Blood Cell Count 4.64 X10^6/uL (4.5-5.9); Red Cell Distribution Width 16.5 % (11.6-14.8); White Blood Cell Count 7.3 X10^3/uL (4.5-11.0)
[2018-09-03 02:30] LABS: BUN Creatinine Ratio 13.3 (6-22); Blood Urea Nitrogen 8 mg/dL (9-20); Calcium 8.2 mg/dL (8.4-10.2); Carbon Dioxide 31 mmol/L (22-32); Chloride 101 mmol/L (98-107); Estimated Glomerular Filt Rate > 60.0 mL/min (>60); Glucose 122 mg/dL (70-100); HEMOLYSIS 20 (0-50); Lactate (Lactic Acid) 1.1 mmol/L (0.7-2.1); Potassium 3.5 mmol/L (3.4-5.1); Sodium 142 mmol/L (137-145)
[2018-09-03 02:43] LABS: Procalcitonin < 0.05 ng/mL (<0.5)
--- NOTE | 2018-09-03 02:45 | PC.NURSE ---
Pt entire perineum area including inner thighs and scrotum is excoriated and weeping serosanguinous fluid . Area is open to air and very foul smelling.
--- NOTE | 2018-09-03 03:56 | DI.RAD.S_ITS ---
PROCEDURE: XR CHEST FOR PICC 1V INDICATIONS: PICC line placement verification COMPARISON: [facility], CR, XR CHEST 1V, 08/29/2018, 19:57. [facility], CR, XR CHEST 1V, 08/26/2018, 11:43. [facility], CR, XR CHEST 1V, 08/05/2018, 10:14. [facility], CR, XR CHEST 1V, 07/23/2018, 9:10. FINDINGS: Left-sided PICC identified with tip projecting over the superior vena cava. Lungs are hypoinflated. There is prominence of the pulmonary vasculature bilaterally. Mild diffuse bilateral hazy pulmonary opacities are noted. There is mild enlargement of the cardiac and mediastinal silhouettes, which is similar to prior comparison exam after accounting for anteroposterior imaging technique and differences in patient positioning. There is no pneumothorax. The costophrenic angles are not fully included on the [id number] of this radiograph. Osseous structures are unchanged from prior exam. IMPRESSION: #1. Left PICC tip projects over the superior vena cava. #2. Findings suggestive of mild pulmonary edema. Dictated by: John Canela M.D. on 09/03/2018 at 8:37 Approved by: John Canela M.D. on 09/03/2018 at 8:42
[2018-09-03] MEDS: HYDROMORPHONE 1 MG INJ IV (04:17)
[2018-09-03] MEDS: VANCOMYCIN 1,000 MG/200 ML FROZ.PIGGY 200 MG IV (04:18)
--- NOTE | 2018-09-03 04:34 | PC.NURSE ---
PICC placed by [facility]. Confirmed placement with x ray read by Dr Soria prior to infusing. Pt tolerated procedure well and returned to wheelchair.
[2018-09-03] MEDS: LORazepam 2 MG/ML SYRINGE 1 MG IV (04:39)
--- NOTE | 2018-09-03 04:55 | PC.NURSE ---
Vancomycin to continue infusing in acute care
--- NOTE | 2018-09-03 05:01 | P.HP_ITS ---
History of Present Illness Date Patient Seen: 09/03/18 Chief complaint: Rectal Bleeding Narrative: The patient is a 37-year-old male with PMH significant for asthma, anxiety, morbid obesity (BMI 79.5), obesity hypoventilation syndrome, RAJESH, methadone dependence, hypothyroidism, h/o nephrolithiasis (h/o basket retrieval and lithotripsy), recurrent sacral and perineal ulcers, and marijuana use. Patient presented to the ED on 09/03/2018 at 1:14 a.m. out of concern for pain in the sacral area with associated bleeding. Patient notes having recurrent sacral wounds. He states the most recent wound has been in place for a month. Patient is morbidly obese, BMI 85. His mobility is extremely limited. There is likely degree of sensory deficit and circulatory disturbance. Mild-moderate serosanguenous drainage without purulence overt purulence. Odor surrounding the patient is quite prominent. Known to have prior history of stage III sacral ulcers, not able to tell me how they were treated in the past. Reports current incontinence of urine, but not stool. Denies fever and chills. Denies chest pain, palpitations, dizziness, and lightheadedness. He does have underlying asthma with frequent exacerbation. No vomiting or diarrhea. Patient's main discomfort today is the degree pain in the area. No cough, no recent illness or hospitalizations. On presentation patient appear to be in a septic state. There is no hemodynamic instability he did have mildly elevated pulse at 1:06 a.m. No leukocytosis. No overt electrolyte abnormalities. Procalcitonin WNL. Lactate normal. Patient History Medical History Anxiety (Acute) Asthma (Acute) Methadone use disorder, mild, in controlled environment (Chronic) Morbid obesity (Chronic) Surgical History H/O vertebral fracture repair (Chronic) History of hip surgery (Chronic) Family & Social History Family History: Reviewed 09/03/18 by LIZBETH Beyer Social History: household members significant other Tobacco & Substance use: Smoking Status Never smoker alcohol intake frequency 0-2 drinks per day Substance Use Type marijuana Meds Home Medications Medication Instructions Recorded Confirmed Type fluticasone-salmeterol [Advair 1 puff INH BID #2 inh 04/28/17 08/08/18 Rx Diskus] methadone 95 mg PO QDAY #0 05/07/17 08/08/18 History albuterol sulfate 2 puff INHALATION Q4-6H PRN #18 07/11/18 08/08/18 Rx gram albuterol sulfate 3 ml INH Q4HP PRN #360 ml 07/27/18 08/08/18 Rx olanzapine [Zyprexa Zydis] 10 mg PO BID #60 tab 07/27/18 08/08/18 Rx prednisone 50 mg PO BID #10 tab 07/27/18 08/08/18 Rx prednisone 10 mg PO BID 08/05/18 08/08/18 History lorazepam [Ativan] 1 mg PO BID-TID PRN #5 tab 08/08/18 Rx lorazepam [Ativan] 1 mg PO BID-TID PRN #10 tab 08/26/18 Rx olanzapine 20 mg PO DAILY #10 tab 08/26/18 Rx olanzapine [Zyprexa] 20 mg PO DAILY #5 tab 08/29/18 Rx Allergies Allergy/AdvReac Type Severity Reaction Status Date / Time NSAIDS (Non-Steroidal Allergy Unknown ASTHMA Verified 09/03/18 01:14 Anti-Inflamma FLARE UPS [NSAIDS (NON-STEROIDAL ANTI-INFLAMMA] ibuprofen AdvReac Mild nausea, GI Verified 09/03/18 01:14 upset Review of Systems Review of Systems All systems reviewed & are unremarkable except as noted in HPI and below Exam Vital Signs (past 8 hours): - 09/03/18 01:14 09/03/18 03:21 Temperature 98.4 F Pulse Rate 111 H 108 H Respiratory Rate 24 22 Blood Pressure 160/51 H Blood Pressure [Left Arm] 166/58 H Pulse Oximetry 93 94 Oxygen Delivery Method Room Air Narrative Exam Narrative: Constitutional: NAD Neurologic: AOx3, forgetful Psych: Affect is labile, inappropriate display of emotion Head: NC, AT Eyes: Pupils equal and reactive, gaze conjugate Ears: external ears normal, no otorrhea Nose: external nose normal, no rhinorrhea or epistaxis Throat: dry MM, oropharynx w/o exudate Neck: Short, thick, no JVD Chest / Respiratory: Diminished breath sounds Heart / CV: S1S2, no murmur Abdomen / GI: panus, marked central obesity, abdominal edema, no tenderness : penis retracted, scrotal swelling with significant excoriation beneath the scrotal sac. Scrotal and inguinal dermatitis, skin macerated. Peripheral / Vascular: warm to touch, DP and PT pulses palpable, mild to moderate edema, here presents bars Musc: full ROM of upper and lower extremities, adequate muscle tone and bulk Skin. Stage 2 sacral ulcer. Significant degree of excoriation of inguinal and perianal fold with distinct unpleasant odor. Moderate serosanguineous drainage. Objective Labs Result Diagrams: 09/03/18 01:55 09/03/18 01:55 Labs: Laboratory Results - last 24 hr 09/03/18 09/03/18 09/03/18 01:55 01:55 01:55 WBC 7.3 RBC 4.64 Hgb 12.0 L Hct 38.1 L MCV 82.0 MCH 25.8 L MCHC 31.4 RDW 16.5 H Plt Count 233 Neut % (Auto) 75.8 H Lymph % (Auto) 16.8 L [place] % (Auto) 6.9 Eos % (Auto) 0.0 L Baso % (Auto) 0.5 Neut # (Auto) 5500 Sodium 142 Potassium 3.5 Chloride 101 Carbon Dioxide 31 BUN 8 L Creatinine 0.60 L Estimated GFR > 60.0 BUN/Creatinine Ratio 13.3 Glucose 122 H Lactate Calcium 8.2 L Procalcitonin < 0.05 09/03/18 01:55 WBC RBC Hgb Hct MCV MCH MCHC RDW Plt Count Neut % (Auto) Lymph % (Auto) [place] % (Auto) Eos % (Auto) Baso % (Auto) Neut # (Auto) Sodium Potassium Chloride Carbon Dioxide BUN Creatinine Estimated GFR BUN/Creatinine Ratio Glucose Lactate 1.1 Calcium Procalcitonin Assessment & Plan Plan: Assessment/Plan Narrative: Sacral ulcer, stage II colonization vs infection... recurrent sacral and perineal ulcers w/ prior h/o MRSA. Does not meet criteria for sepsis. No hemodynamic or respiratory compromise. - blood cultures pending - wound cultures collected in the ED, also pending, will hold off on further empiric therapy and still wound culture/sensitivity have resolved In the meantime will use topical antiseptic/antibiotics to reduce the wound bioburden. - received Zosyn and vancomycin in the ED - IVF - consult wound care - wound care QShift: assess wound, clean with saline, consider saline impregnated gauze, apply calmoseptine to surrounding skin / macerated areas around the wound Defer to wound care recommendations after patient has been evaluated, offload pressure areas, elevate scrotum - patient would benefit from a Glover catheter as he is incontinent; however given his anatomy severe obesity the catheter will need to be placed by Urology - patient is significantly morbidly obese, likely he will need an air bed or a big boy bedto adequately relieved pressure area, discussed with dye house helper - mupirocin and metronidazole ointment ; consider a silver based topical Asthma, without acute exacerbation - bronchodilators, supplemental O2 prn Obesity hypovention syndrome - caution with opioids or sedating medications Chronic pain w/ dependence on high dose of methadone
[2018-09-03] MEDS: ALBUTEROL 2.5 MG/3 ML NEB (ADULT) INH (05:28)
[2018-09-03] MEDS: SODIUM CHLORIDE 0.45% 1,000 ML 100 ML IV ×2 (06:04→18:43)
[2018-09-03] MEDS: SODIUM CHLORIDE 0.9% 1,000 ML 100 ML IV (06:04)
--- NOTE | 2018-09-03 06:19 | PC.NURSE ---
Pt is A and O x 4, sleepy and unwilling to go over his home medications. VSS, afebrile. Pt has numerous wounds in his perineum, inner thighs, scrotum and buttocks. Some are bleeding lightly. Penis is completely retracted into abdomen and unable to place Glover catheter. Pt c/o of pain, but cannot keep eyes open and is sleeping. 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 Unable to auscultate LS, is followed by RT. S1, S2, tachy. Skin is dry on all extremities. Hygiene is very sub par.
--- NOTE | 2018-09-03 06:27 | PC.NURSE ---
Pt arrived on unit at approx 0425 by escorted wheelchair. He was able to transfer with assist with his legs to the bed.
[2018-09-03] MEDS: GABAPENTIN 300 MG CAPSULE PO ×2 (09:38→22:21)
[2018-09-03] MEDS: NYSTATIN CREAM 30 GM 1 APPLIC TOP ×2 (09:38→22:21)
[2018-09-03] MEDS: DULOXETINE 30 MG CAPSULE PO (09:38)
[2018-09-03] MEDS: POTASSIUM CHLORIDE 20 MEQ TAB 40 MEQ PO (09:38)
[2018-09-03] MEDS: DOXYCYCLINE HYCLATE 100 MG TABLET PO ×2 (09:38→22:22)
[2018-09-03] MEDS: FLUCONAZOLE 100 MG TABLET 200 MG PO (09:38)
[2018-09-03] MEDS: MUPIROCIN 22 GM OINT 1 APPLIC TOP ×2 (09:39→22:22)
[2018-09-03] MEDS: OLANZapine ODT 10 MG TAB 20 MG PO (09:50)
[2018-09-03] MEDS: predniSONE 10 MG TABLET PO (09:50)
[2018-09-03] MEDS: METHADONE 10 MG TABLET 95 MG PO (09:57)
[2018-09-03] MEDS: TRAMADOL 50 MG TABLET 100 MG PO (09:57)
--- NOTE | 2018-09-03 12:27 | CM.DANOTE ---
Patient is a 37 year old male who was a READMIT on 09/03/18 for Rectal Bleeding/Wounds. Pt has [facility] and [facility] for insurance and his PCP is Dr. Gabe Meraz. EMR was reviewed. Per MD, pt's morbidly obesity seems to have increased some since last admit a month ago and pt now weighs 498 lbs and has significant pressure wounds to his posterior and rectal area and currently has PICC and on IV-Abx and has significant odor from his body that seems to indicate lack of self care at home. wrote orders for Wound Care Consult and SW left ms with the [facility] alerting them to the order for Consult since this is Wednesday and Consult likely not to happen until Wednesday. PT/OT ordered to help with use of sling for wound care cleaning and changes. Pt has been admitted to [facility] almost once a month over the past few months with last admit 07/24/18 for similar medical needs. Pt was discharged home via [facility] although possible use of [facility] in the future if needed for transport home. Pt was set up with [facility] at d/c in July. SW met bedside with pt and explained role and pt again confirmed that he lives in [facility] [place] [facility] with his long time girlfriend who is currently working and not available for assist during the day. Pt states that he is not currently open with HH but remembers a HH RN doing one home visit but pt is unsure why he no longer has HH. SW attempted to begin discussion regarding d/c needs and options and inquired about possible SNF rehab for wound care and therapy needs and pt confirms that he does not have a hx of SNF rehab but began drifting off to sleep during the conversation so SW was unable to determine if pt would be agreeable to SNF referrals to determine if SNF could be found to accept pt's insurance and care needs. Plan: SW to follow closely for another discussion with pt later when he is less drowsy to further discuss possible SNF rehab and possible JODIE discussion for increased support to help reduce pt's high risk of ongoing readmissions. JOSÉ LUIS Leon Discharge Planning/Care Management CM Discharge Assessment Start: 09/03/18 12:19 Freq: Status: Active Protocol: Document 09/03/18 12:19 BF (Rec: 09/03/18 12:27 BF [id number]) Discharge Planning Assessment Assigned Aircraft Structural Design Engineer JOSÉ LUIS Barnes DPOA/Assigned Designee Name mother Patel Contact Information [phone] Advance Directives? No Advance Directives on File No History Provided By Patient Medical Record Has Patient been admitted in last 30 Yes days? Comment Last admit was Jul 2018 for similar Prior Living Arrangements House Household Members significant other Type of transporation used prior to Relies on Others admit Comment Patient majorly obese and has limited mobility and poor self care along with pressure wounds and oxygen needs. Independent with ADL's No Is patient alert and oriented? Yes Needs Assistance With Bathing Grooming Meal Prep Managing Medications Home Chores / Shopping Comment Sig Other who lives with pt sometimes provides assist but is now working and not available during the day for assist. Caregiver for Another No Community Services used prior to Oxygen Therapy admission: Transportation DME Already Rented / Owned FWW / Walker Comment Patient has walker but reports that it does not work well. Patient/Family Preference Retirement Facility Comment Patient has some significant pressure wounds and currently on IV-Abx and could benefit from SNF at d/c for wound care and ongoing PT/OT although pt 's insurance Medicaid could be a barrier to placement. Barriers to Discharge Yes Comment Large young man, Methadone program, marijuana, 0-2 drinks daily; polysubstance. Needs wound care. Patient does not seem to be adequately care for himself at home. Patient could possibly utilize [employer] van for transport if needed at d/c pending pt's d/c plan. Discharge Plan Retirement Facility Transportation Arrangement Pending discussion w/pt; family vs Medicaid transport vs Powered van Referrals Initiated Other Additional Comment Needs unclear at this time, likely could benefit from SNF but may refuse Whiteboard Updated in Patient Room with Yes name and ext. # of Aircraft Structural Design Engineer Review Status In Process Please Provide Date Initial DC 09/03/18 Assessment Was Performed Next Review Type Continued Stay Review
--- NOTE | 2018-09-03 12:55 | PC.NURSE ---
Addendum entered by Oma Patel R.N. 09/03/18 15:20: Pt asked food quality technician for a small gift box this am, and he told food quality technician that it was for jew purposes. The explained to this rn what pt had told him, This Rn asked Lou what was in the box and he told me medication. This box of meds has been sent down to pharmacy and will remain there until patient is discharged. Pt is sleeping now and comfortable. Pain medication working for discomfort. Original Note: Addendum entered by Oma Patel R.N. 09/03/18 14:20: Pts bariatric bed has arrived and pt transferred to bed. He is groggy from pain medication but easily awakens, RR are 16. Pt is ordering his dinner now and eating his sandwich from lunch. Denies pain or discomfort. Original Note: Pt admitted for wounds to his bottom and scrotum. He has several area's proximal to distal on the l.side of his scrotum that measure W1.0xL1.0. They are stageable at 2/3. Pt also has the same thing on the right side of his scrotum that are red and open and stageable at a 2/3. Pt is obese and he has some maceration between the front of his legs, and his penis is up and back as he is large and he does have difficulty voiding. He stands up to urinate with assistance from staff. Pt given all of his morning meds, he takes methadone 95mg daily, and he was given 100mg of tramadol. He just got done having a shower and creams applied to area's on bottom and scrotum. Nystatin powder also applied under the l.side of fold and r.side of fold as he has some yeast area's. Pt is also getting muropurcin for his nares. Babatunde can be manipulative with staff and he does cry out if things do not go his way. Boundaries set with patient this morning and he is doing better. Sleeping now after shower. Pt able to ambulate slowly and he is resting now.
--- NOTE | 2018-09-03 14:41 | PC.NURSE ---
While assisting patient at 0800 this morning with urinating and getting back into bed, the patient asked me to bring his clothes to him so he could get something from his pocket. The patient retrieved a small ring style box and was attempting to hide it under his right leg and sheet. I asked him to show it to me and to open it so that I could get the contents. He refused to open the box, claiming that it was a evangelical item that he uses. I reported this to his RN (Oma) due to patient's history of drug use. The nurse found the contents to be medication and forwarded the items to Pharmacy.
--- NOTE | 2018-09-03 16:02 | PT.IPTN ---
Physical Therapy Treatment Note M3 PT-IP Subjective Start: 09/03/18 16:01 Freq: NEEDED Status: Active Protocol: Document 09/03/18 16:01 [facility] (Rec: 09/03/18 16:02 [facility] [id number]) Subjective Physical Therapy Visit Type Type Patient Refusal Notes Attempted PT this afternoon, pt lethargic, falling asleep mid-sentence and confused. Alerted day-shift RN. Will attempt PT tomorrow if more alert.
--- NOTE | 2018-09-03 16:56 | PC.NURSE ---
Addendum entered by Yajaira Roberts R.N. 09/03/18 23:33: pt remains lethargic requiring moderate verbal/tactile stimuli to waken. when pt is awake, he is disoriented (forgot he ate dinner or having already taken morning medications). wound care done. scheduled tramadol withheld due to lethargy. Original Note: SHIFT NOTE Received pt sleeping, wakens to moderate verbal and tactile stimuli. pt unable to stay awake long enough for complete/thorough assessment. respirations shallow, spO2 at 82-89% while sleeping. 2L O2 applied and O2 as high as 93-94%. pt remains lethargic. with holding medications and meal tray at this time. frequent visual checks. call light within reach.
--- NOTE | 2018-09-03 17:36 | OT.IP.TRT ---
Occupational Therapy Treatment Note M3 OT- IP Subjective and Pain Start: 09/03/18 17:35 Freq: Status: Active Protocol: Document 09/03/18 16:30 [facility] (Rec: 09/03/18 17:36 [facility] [id number]) OT- Subjective Occupational Therapy Visit Type Type Administrative Note Notes Pt very lethargic at this time and not appropriate for OT eval.
[2018-09-04] VITALS (19 sets, daily range): BP systolic 109–133; BP diastolic 57–68; PULSE 80–98; RESP 17–27; TEMP 36.4–36.7; O2SAT 90–98
--- NOTE | 2018-09-04 02:24 | PC.NURSE ---
At 0215 patient wanted to get up. Patient two person MAX to get up. Stands over a pink wash basin and tries to void. The urine spatters all over the floor. Patient then wants to sit on the toilet. When patient is finished, he calls staff. He tells them you need to wipe my butt. I cleaned with moist washcloths. You need to really get in there. Really deep. I began doing what he had told me to do, pushing the washcloths into the folds of his backside. I cleaned patient up. We got back into bed (patient needed a full linen change). Patient then had his hand behind him and pulled out a nugget of bowel movement. He held it up. You didn't do a good job. He held it for me to see. I took the washcloth and took the bowel movement, put it into the toilet, and had patient do very good hand hygiene. Nurse Mariel Zelaya was in the room as this was occurring and saw it. Hand hygiene complete, call light within reach. RN aware.
[2018-09-04] MEDS: LORazepam 1 MG TABLET PO (02:34)
[2018-09-04] MEDS: OXYCODONE/ACETAMINOPHEN 5/325 TABLET 1 TAB PO (02:34)
[2018-09-04] MEDS: SODIUM CHLORIDE 0.45% 1,000 ML 100 ML IV ×2 (04:41→14:54)
--- NOTE | 2018-09-04 05:20 | PC.NURSE ---
Pt is A and O x 4, VSS on 2L O2 NC to stay at 95% at [facility]. Pt refused to give up albuterol inhaler (he puts it in a fat roll, buries it) despite education on overdosing on the drug. He usually takes multiple puffs, more than two, and whenever. When he was standing to void in a pink basin on the floor due to his penis retraction, staff got the inhaler, labeled it and put it in his med drawer. He was angry and he was advised he could have it as ordered. He became angry when he was advised he could have two snacks only, per shift, plus three meals. Wounds continue to be KIKE, ointment and Nystatin applied. No improvement noted. Staff splitting noted: day shift let me have my inhaler.
[2018-09-04 06:25] LABS: Add Manual Diff / Slide Review NO; Basophils Percent Auto 0.6 % (0-2); Hematocrit 27.6 % (41-53); Hemoglobin 8.8 g/dL (13.5-17.5); Lymphocytes Percent Auto 22.4 % (25-40); Mean Corpuscular Hemoglobin 26.2 PG (26-34); Mean Corpuscular Volume 81.7 fL (80-100); Monocytes Percent Auto 8.8 % (3-14); Neutrophils Absolute Auto 3400 /uL (1500-7000); Neutrophils Percent Auto 68.2 % (50-75); Platelet Count 153 X10^3/uL (150-400); Red Blood Cell Count 3.38 X10^6/uL (4.5-5.9); Red Cell Distribution Width 16.4 % (11.6-14.8)
[2018-09-04 06:28] LABS: Alanine Aminotransferase 19 IU/L (21-72); Albumin 2.3 g/dL (3.5-5.0); Albumin Globulin Ratio 0.8 (1.0-2.8); Alkaline Phosphatase 51 U/L (38-126); Aspartate Aminotransferase 12 IU/L (17-59); Bilirubin Total 0.3 mg/dL (0.2-1.3); Blood Urea Nitrogen 6 mg/dL (9-20); Carbon Dioxide 31 mmol/L (22-32); Chloride 99 mmol/L (98-107); Estimated Glomerular Filt Rate > 60.0 mL/min (>60); Globulin 2.9 g/dL (1.7-4.1); Glucose 72 mg/dL (70-100); HEMOLYSIS 17 (0-50); Magnesium 2.1 mg/dL (1.6-2.3); Potassium 3.5 mmol/L (3.4-5.1); Sodium 138 mmol/L (137-145); Total Protein 5.2 g/dL (6.3-8.2)
[2018-09-04] MEDS: ALBUTEROL HFA 60 PUFF/8 GM INH INH ×2 (07:26→17:11)
[2018-09-04] MEDS: MUPIROCIN 22 GM OINT 1 APPLIC TOP ×2 (07:34→22:10)
[2018-09-04] MEDS: FLUTICASONE/SALMETEROL 500/50 14 PUFF DISKUS INH ×2 (08:40→19:16)
[2018-09-04] MEDS: ALBUTEROL/IPRATROPIUM 3 ML AMPUL INH (08:58)
--- NOTE | 2018-09-04 09:32 | PC.NURSE ---
Addendum entered by Talia Feng R.N. 09/04/18 11:45: Pt awake, pulled off CPAP and shouted out I need to pee NOW! repeatedly. VSS 133/66, 96. A&Ox3, states he is no longer tired able to move self out of bed and urinated in BSC w/ FWW. Assist required into bed, poor hygiene as pt pulled multiple stool pellets from buttocks stating you missed some. Bed bath given. Medicated cream applied to scrotum/skin folds. Original Note: Addendum entered by Talia Feng R.N. 09/04/18 11:11: ABG completed. Pt remains lethargic; and arouses to voice. Reporting I'm tired. O2 de-sating on 2L/NC into 86% while sleeping. R.T placed pt on CPAP. aware, no new orders, continue to monitor. Original Note: Pt A&Ox3. Non-compliant with staff, getting OOB to urinate unassisted and refusing to off load pressure. Tearful with a.m assessment of scrotum, area with slow active bleeding. Able to move in bed indep. Pt requesting breathing tx, R.T notified pt now drowsy. He is unable to keep his eyes open although asking for his methadone and other pain medication, stating I feel like I'm withdrawing. Educated pt that this RN will not give that medication until he is more alert. Pt placed on 1L/NC 91%, suspect apnea. aware of lethargy, n/o ABG.
[2018-09-04 10:12] LABS: HCO3 ABG 32 mmol/L (22-26); PCO2 ABG 57.3 mmHg (35-45); PO2 ABG 52 mmHg (80-100); TCO2 ABG 33 mmol/L (21-31); pH ABG 7.35 (7.35-7.45)
[2018-09-04 10:13] LABS: Oxygen Saturation ABG 84 % (95-100)
[2018-09-04 10:42] LABS: Fractionated Inspired Oxygen 24
--- NOTE | 2018-09-04 11:33 | PM.PN.1 ---
Subjective Date Patient Seen: 09/04/18 Time Patient Seen: 09:05 Interval history: PATIENT REPORTED PAIN TO SACRAL AREA WELL SCROTAL AREA NO FEVER OR CHILLS WOULD LIKE TO AVE SCHEDULED BREATHING TREATMENT NURSING REPORTED DEC SAT WHILE ASLEEP Exam Vital Signs (past 8 hours): - 09/04/18 04:00 09/04/18 05:38 09/04/18 07:20 Temperature 97.6 F Pulse Rate 82 98 H Respiratory Rate 18 20 Blood Pressure 121/65 109/61 Pulse Oximetry 95 96 90 L 09/04/18 07:35 09/04/18 08:40 09/04/18 08:58 Temperature Pulse Rate 82 80 80 Respiratory Rate 18 17 17 Blood Pressure Pulse Oximetry 96 93 93 Fraction of Inspired Oxygen 21 Oxygen Delivery Method Room Air Oxygen Flow Rate 0 Narrative Exam Narrative: NO ACUTE DISTRESS. PATIENT IS ALERT ORIENTED X3. MORBIDLY OBESE VITAL SIGNS STABLE HEAD ATRAUMATIC NORMOCEPHALIC NECK : SUPPLE WITHOUT ADENOPATHY NO CAROTID BRUITS EYE: EOMI, PERRLA, NORMAL CONJUNCTIVA; NO JAUNDICE CHEST: REGULAR RATE. NO RUBS. PMI IS NON DISPLACED. NO MURMURS; NORMAL S1-S2 PULMONARY: DECREASED BS OVER THE BASES. BIBASILAR CRACKLES NOTED; NO INCREASED DULLNESS TO PERCUSSION; NO WHEZZING ABDOMEN: SOFT. OBESE; NONTENDER. NONDISTENDED. BOWEL SOUNDS ARE PRESENT IN ALL 4 QUADRANTS. EXTREMITIES: 2+ EDEMA. NON PITTING . NO CYANOSIS CLUBBING NOTED. NEURO: CRANIAL NERVES 2-12 GROSSLY INTACT. NO FOCAL NEUROLOGICAL DEFICIT NOTED. MSK: NORMAL RANGE OF MOTION FOR AGE. NO JOINT EFFUSION. SKIN: MULTIPLE PRESSURE ULCERS TO BUTTOCKS , SACRAL AND SCROTUM; SEROUS DRAINAGE; APPEARS CHRONIC IN NATURE : NORMAL EXTERNAL GENITALIA. PSYCH : POOR INSIGHTS. ALERT AWAKE ORIENTED X3 Objective Labs Result Diagrams: 09/04/18 06:10 09/04/18 06:10 Labs: Laboratory Results - last 24 hr 09/04/18 09/04/18 09/04/18 06:10 06:10 09:45 WBC 5.0 RBC 3.38 L Hgb 8.8 L Hct 27.6 L MCV 81.7 MCH 26.2 MCHC 32.0 RDW 16.4 H Plt Count 153 Neut % (Auto) 68.2 Lymph % (Auto) 22.4 L [place] % (Auto) 8.8 Eos % (Auto) 0.0 L Baso % (Auto) 0.6 Neut # (Auto) 3400 ABG pH 7.35 ABG pCO2 57.3 H ABG pO2 52 L ABG HCO3 32 H ABG Total CO2 33 H ABG O2 Saturation 84 L* ABG Base Excess 6.0 H FiO2 24 Sodium 138 Potassium 3.5 Chloride 99 Carbon Dioxide 31 BUN 6 L Creatinine 0.40 L Estimated GFR > 60.0 BUN/Creatinine Ratio 15.0 Glucose 72 Calcium 7.0 L Magnesium 2.1 Total Bilirubin 0.3 AST 12 L ALT 19 L Alkaline Phosphatase 51 Total Protein 5.2 L Albumin 2.3 L Globulin 2.9 Albumin/Globulin Ratio 0.8 L Assessment & Plan Plan: Assessment/Plan Narrative: SACRAL/SCROTAL AREA PRESSURE ULCERATION; ON PO ABX; WOUND CARE TO SEE IN AM; NO S/S OF ABSCESS; ON SPECIALTY BED; TURN Q2 HRS; ADDITIONAL MANAGEMENT INDICATED POOR HYGIENE; POSS POOR SOCIAL SUPPORT; AOC OPERATIONS INTELLIGENCE CHIEF CONSULTED MORBID OBESITY; HIGH RISK FOR MORTALITY ; EXTENSIVE COUNSELING GIVEN; MIGHT NEED SURG INTERV LIFE SAVING TREATMENT OBESITY HYPERV SYNDR; X PAP WHILE ASLEEP ASTHMA PER HX; NO S/S OF ACUTE EXACERBATION; WILL HAVE PRN DUONEB ORDERED CHRONIC PAIN SYNDROME; ON METHADONE; PRN MEDS ORDERED HYPOTHYROIDISM; HOME MEDS PROGNOSIS IS GUARDED DUE TO MULT COMORBIDITIES DC PER CLINICAL COURSE Quality VTE Deep Vein Thrombosis/Pulmonary Embolism Present on Admission: No
--- NOTE | 2018-09-04 11:38 | P.PN_ITS ---
Subjective Date Patient Seen: 09/04/18 Time Patient Seen: 09:05 Interval history: PATIENT REPORTED PAIN TO SACRAL AREA WELL SCROTAL AREA NO FEVER OR CHILLS WOULD LIKE TO AVE SCHEDULED BREATHING TREATMENT NURSING REPORTED DEC SAT WHILE ASLEEP Exam Vital Signs (past 8 hours): - 09/04/18 04:00 09/04/18 05:38 09/04/18 07:20 Temperature 97.6 F Pulse Rate 82 98 H Respiratory Rate 18 20 Blood Pressure 121/65 109/61 Pulse Oximetry 95 96 90 L 09/04/18 07:35 09/04/18 08:40 09/04/18 08:58 Temperature Pulse Rate 82 80 80 Respiratory Rate 18 17 17 Blood Pressure Pulse Oximetry 96 93 93 Fraction of Inspired Oxygen 21 Oxygen Delivery Method Room Air Oxygen Flow Rate 0 Narrative Exam Narrative: NO ACUTE DISTRESS. PATIENT IS ALERT ORIENTED X3. MORBIDLY OBESE VITAL SIGNS STABLE HEAD ATRAUMATIC NORMOCEPHALIC NECK : SUPPLE WITHOUT ADENOPATHY NO CAROTID BRUITS EYE: EOMI, PERRLA, NORMAL CONJUNCTIVA; NO JAUNDICE CHEST: REGULAR RATE. NO RUBS. PMI IS NON DISPLACED. NO MURMURS; NORMAL S1- S2 PULMONARY: DECREASED BS OVER THE BASES. BIBASILAR CRACKLES NOTED; NO INCREASED DULLNESS TO PERCUSSION; NO WHEZZING ABDOMEN: SOFT. OBESE; NONTENDER. NONDISTENDED. BOWEL SOUNDS ARE PRESENT IN ALL 4 QUADRANTS. EXTREMITIES: 2+ EDEMA. NON PITTING . NO CYANOSIS CLUBBING NOTED. NEURO: CRANIAL NERVES 2-12 GROSSLY INTACT. NO FOCAL NEUROLOGICAL DEFICIT NOTED. MSK: NORMAL RANGE OF MOTION FOR AGE. NO JOINT EFFUSION. SKIN: MULTIPLE PRESSURE ULCERS TO BUTTOCKS , SACRAL AND SCROTUM; SEROUS DRAINAGE; APPEARS CHRONIC IN NATURE : NORMAL EXTERNAL GENITALIA. PSYCH : POOR INSIGHTS. ALERT AWAKE ORIENTED X3 Objective Labs Result Diagrams: 09/04/18 06:10 09/04/18 06:10 Labs: Laboratory Results - last 24 hr 09/04/18 09/04/18 09/04/18 06:10 06:10 09:45 WBC 5.0 RBC 3.38 L Hgb 8.8 L Hct 27.6 L MCV 81.7 MCH 26.2 MCHC 32.0 RDW 16.4 H Plt Count 153 Neut % (Auto) 68.2 Lymph % (Auto) 22.4 L [place] % (Auto) 8.8 Eos % (Auto) 0.0 L Baso % (Auto) 0.6 Neut # (Auto) 3400 ABG pH 7.35 ABG pCO2 57.3 H ABG pO2 52 L ABG HCO3 32 H ABG Total CO2 33 H ABG O2 Saturation 84 L* ABG Base Excess 6.0 H FiO2 24 Sodium 138 Potassium 3.5 Chloride 99 Carbon Dioxide 31 BUN 6 L Creatinine 0.40 L Estimated GFR > 60.0 BUN/Creatinine Ratio 15.0 Glucose 72 Calcium 7.0 L Magnesium 2.1 Total Bilirubin 0.3 AST 12 L ALT 19 L Alkaline Phosphatase 51 Total Protein 5.2 L Albumin 2.3 L Globulin 2.9 Albumin/Globulin Ratio 0.8 L Assessment & Plan Plan: Assessment/Plan Narrative: SACRAL/SCROTAL AREA PRESSURE ULCERATION; ON PO ABX; WOUND CARE TO SEE IN AM; NO S/S OF ABSCESS; ON SPECIALTY BED; TURN Q2 HRS; ADDITIONAL MANAGEMENT INDICATED POOR HYGIENE; POSS POOR SOCIAL SUPPORT; SPORTS PHYSICIAN CONSULTED MORBID OBESITY; HIGH RISK FOR MORTALITY ; EXTENSIVE COUNSELING GIVEN; MIGHT NEED SURG INTERV LIFE SAVING TREATMENT OBESITY HYPERV SYNDR; X PAP WHILE ASLEEP ASTHMA PER HX; NO S/S OF ACUTE EXACERBATION; WILL HAVE PRN DUONEB ORDERED CHRONIC PAIN SYNDROME; ON METHADONE; PRN MEDS ORDERED HYPOTHYROIDISM; HOME MEDS PROGNOSIS IS GUARDED DUE TO MULT COMORBIDITIES DC PER CLINICAL COURSE Quality VTE Deep Vein Thrombosis/Pulmonary Embolism Present on Admission: No
[2018-09-04] MEDS: METHADONE 10 MG TABLET 95 MG PO (11:54)
[2018-09-04] MEDS: DULOXETINE 30 MG CAPSULE PO (11:55)
[2018-09-04] MEDS: OLANZapine ODT 10 MG TAB 20 MG PO (11:55)
[2018-09-04] MEDS: DOXYCYCLINE HYCLATE 100 MG TABLET PO ×2 (11:55→22:09)
[2018-09-04] MEDS: TRAMADOL 50 MG TABLET 100 MG PO ×2 (11:55→22:09)
[2018-09-04] MEDS: FLUCONAZOLE 100 MG TABLET 200 MG PO (11:55)
[2018-09-04] MEDS: GABAPENTIN 300 MG CAPSULE PO ×2 (11:56→22:09)
[2018-09-04] MEDS: NYSTATIN CREAM 30 GM 1 APPLIC TOP ×2 (11:56→22:10)
[2018-09-04] MEDS: predniSONE 10 MG TABLET PO (11:56)
--- NOTE | 2018-09-04 12:09 | CM.DPC ---
DCP Cont: Per MD and RN, pt has been fairly difficult for staff to work with being quite demanding and hiding some medications from home as well as his inhaler. MD awaiting Wound Care Consult on Wednesday, SW left msg yesterday alerting Wound Care of the Consult Order. GENO met bedside with pt and he seemed much more alert this morning. Pt confirmed that he had been set up with [facility] through [facility] a few admits ago but states I have it at home still but I don't use it, it doesn't help. GENO inquired if pt had ever applied for [employer] Caregiving program and pt denied applying and SW discussed some and pt stated My girlfriend can assist me, I don't think I need it. But then pt confirmed that girlfriend is now working and not home during the day and SW discussed [facility] helping with the times he is alone and pt is agreeable to reviewing the [employer] application. GENO discussed SNF rehab for wound care and strengthening and pt was initially not interested stating he would probably go home but after further discussion pt was agreeable with SW making a SNF referral to determine if his insurance would cover a SNF stay and if a SNF would accept him with Medicaid to determine if SNF could even be an option. GENO faxed initial clinicals to [facility] (since pt resides in [facility]) and called and requested review and to check pt's insurance. Plan: GENO to follow closely Wednesday after Wound Care Consult to determine wound needs. SW to follow up with [facility] regarding their review of pt and check on pt's Medicaid coverage to determine if SNF could be an option for wound care/strengthening. GENO maybe to call GENO Amin with [facility], to discuss support with pt completing JODIE application etc... JOSÉ LUIS Leon
--- NOTE | 2018-09-04 12:50 | PT.IIE ---
Surgical History (Last Reviewed 09/03/18 @ 06:06 by LIZBETH Beyer) H/O vertebral fracture repair (Chronic) History of hip surgery (Chronic) Medical History (Last Reviewed 09/03/18 @ 06:06 by LIZBETH Beyer) Anxiety (Acute) Asthma (Acute) Methadone use disorder, mild, in controlled environment (Chronic) Morbid obesity (Chronic) Physical Therapy Inpatient Evaluation/Re-Eval M1 PT/OT-IP Prior Functional Status Start: 09/03/18 17:35 Freq: NEEDED Status: Active Protocol: Document 09/04/18 12:50 RCC (Rec: 09/04/18 14:15 [facility] [id number]) Medical Review Prior Functional Status Medical History Reviewed Yes Mobility and Gait pt uses a walker for level outdoor ambulation (car to home) and indoors as well Activities of Daily Living and IADL's modified indep. ADLs per pt. Social History Household Members significant other Living Arrangements House Number of Floors (Floors) One Floor Number of Stairs To Enter/Railing? no steps to enter/exit Home Equipment Front Wheel Walker Additional Social History Comment Pt admitted for rectal bleeding, wounds on posterior scrotum and rectum. Wound care consult hopefully for Wednesday. M2 PT-IP Current Condition Start: 09/03/18 16:01 Freq: NEEDED Status: Active Protocol: Document 09/04/18 12:50 RCC (Rec: 09/04/18 14:15 RCC [id number]) Physical Therapy Current Condition Current Condition Evaluation Date 09/04/18 Treatment Diagnosis rectal bleeding, impaired activity tolerance Precautions Other Precautions wounds to rectum and scrotum M3 PT-IP Subjective Start: 09/03/18 16:01 Freq: NEEDED Status: Active Protocol: Document 09/04/18 12:50 RCC (Rec: 09/04/18 14:15 [facility] [id number]) Subjective Physical Therapy Visit Type Type Initial Evaluation Visit Start Time 12:35 Visit Stop Time 12:50 Total Visit Minutes 15 Number of OUTSIDE SALES CONSULTANT Visits 0 Physical Therapy Visit Comments Patient Comments pt states he is weak, needs to use the BR Patient Goals he wants to go back home M4 PT-IP Mobility and Gait Start: 09/03/18 16:01 Freq: NEEDED Status: Active Protocol: Document 09/04/18 12:50 RCC (Rec: 09/04/18 14:15 [facility] [id number]) PT-Bed Mobility Assessment Supine to Sit Supine to Sit Independent Bedrails Sit to Supine Sit to Supine Moderate Assistance 1 Person Assistance Scooting Scooting to Edge of Bed Standby Assistance PT-Transfer Assessment Sit to and From Stand Sit to and from Stand Standby Assistance Equipment Transfer Assistive Device Front Wheeled Walker Transfers Transfer Destination Bedside Commode Transfer Technique Stand Step Pivot Transfer Ability Level of Assist Standby Assistance Comments Mobility Comments pt refused gown, gait belt, non-skid socks Gait Assessment Gait Gait Assistance Required: Standby Assistance Distance (Feet) 10 Assistive Devices Assistive Device None Gait Deviations General Gait Pattern Decreased Stride Length Flexed Trunk Wide Based Gait Factors Limiting Gait Function Factors Limiting Gait Function Decreased Activity Tolerance Comments Gait Comments pt with O2 off during mobility , O2 saturation 94% after short gait, CA 100 bpm PT-Balance Assessment Sitting Balance and Reactions Static Sitting Balance Ability Good Dynamic Sitting Balance Ability Good Standing Balance and Reactions Static Standing Balance Ability Fair Dynamic Standing Balance Ability Fair Device Used bariatric FWW M5 PT-IP Objective Assessments Start: 09/03/18 16:01 Freq: NEEDED Status: Active Protocol: Document 09/04/18 12:50 RCC (Rec: 09/04/18 14:15 [facility] [id number]) Orientation Orientation/Cognition Level of Alertness Alert Language Function Ability No Deficits Noted Strength Comments Strength Comments hip flexion at least 3/5 but unable to lift BLEs without assistance back to bed Coordination Assessment Gross Coordination Gross Coordination WNL M6 PT-IP Treatment Start: 09/03/18 16:01 Freq: NEEDED Status: Active Protocol: Document 09/04/18 12:50 RCC (Rec: 09/04/18 14:15 [facility] [id number]) Physical Therapy Treatment Education Education Provided Safety M7 PT-IP Assessment and Plan Start: 09/03/18 16:01 Freq: NEEDED Status: Active Protocol: Document 09/04/18 12:50 RCC (Rec: 09/04/18 14:15 [facility] [id number]) PT Summary Assessment and Plan Potential Rehabilitation Potential Good Status of Condition at Evaluation Stable Summary Impairments Bed Mobility Transfers Gait Activity Tolerance Assessment Summary Pt required assistance with bilateral LEs today to get back into bed due to weakness, but able to lift them and be SBA getting out of bed this session. His gait was limited by fatigue and participation/ willingness to participate in physical therapy. He is adamant about going home, refuses to consider SNF rehab at this point. Pt is below his normal functional level, as he typically can ambulate on level outdoor surfaces and indoor household distances. Pt at this time would benefit from continued acute PT to progress his activity tolerance, gait, and bed mobility. If he is able to d/c home, highly recommend HH services. Goals Bed Mobility Goal Independent Transfer Goal Independent Gait Goal Standby Assistance Front Wheel Walker Gait Distance 50 Days to Meet Goals 5 Frequency of Treatment Frequency Of Treatment Once a Day Treatment Plan Physical Therapy Treatment Plan Bed Mobility Training Transfer Training Gait Training Therapeutic Exercise Discharge Planning Other Recommendations and Next Treatment progress gait in room as Focus tolerated to household distances, monitor O2. Bed mobility Recommendations To Nursing Amount of Assist Needed 1 Person Assist Discharge Recommendations PT Discharge Recommendations Home with Assistance Home Health SNF Rehab Other Discharge Recommendations SNF vs. Home with assist and HH (pt refusing SNF currently)
--- NOTE | 2018-09-04 20:13 | PC.NURSE ---
SHIFT NOTE intermittently lethargic but not as sever as compared to yesterday evening. spO2 decreased to 80's while asleep on room air, pt needs reinforcement to keep CPAP in place while sleeping. pt upset about limits on food intake and snacks; voiced wanting to leave if not able to get more snacks. limits in place and reinforced with pt.
[2018-09-05] VITALS (14 sets, daily range): BP systolic 111–127; BP diastolic 65–74; PULSE 80–101; RESP 16–28; TEMP 36.3–37.1; O2SAT 90–97
[2018-09-05] MEDS: ALBUTEROL HFA 60 PUFF/8 GM INH INH ×3 (00:03→13:04)
[2018-09-05] MEDS: LORazepam 1 MG TABLET PO ×2 (00:04→08:31)
[2018-09-05] MEDS: OXYCODONE/ACETAMINOPHEN 5/325 TABLET 1 TAB PO ×3 (00:04→16:53)
[2018-09-05] MEDS: SODIUM CHLORIDE 0.45% 1,000 ML 100 ML IV ×2 (00:05→10:46)
--- NOTE | 2018-09-05 00:12 | PC.NURSE ---
Patient exhibited manipulative and staff splitting behaviors towards me. Told me I like you. You're my favorite staff here. The others are mean. I told him we are all following the same rules and we aren't mean. Told KAILYN Floyd.
[2018-09-05] MEDS: ALBUTEROL/IPRATROPIUM 3 ML AMPUL INH ×2 (05:54→17:55)
[2018-09-05 06:08] LABS: Add Manual Diff / Slide Review NO; Basophils Percent Auto 0.3 % (0-2); Hematocrit 30.6 % (41-53); Hemoglobin 9.6 g/dL (13.5-17.5); Lymphocytes Percent Auto 34.2 % (25-40); Mean Corpuscular HGB Conc 31.5 % (30-36); Mean Corpuscular Hemoglobin 25.8 PG (26-34); Mean Corpuscular Volume 81.8 fL (80-100); Monocytes Percent Auto 9.2 % (3-14); Neutrophils Absolute Auto 2400 /uL (1500-7000); Neutrophils Percent Auto 56.3 % (50-75); Platelet Count 167 X10^3/uL (150-400); Red Blood Cell Count 3.74 X10^6/uL (4.5-5.9); Red Cell Distribution Width 16.5 % (11.6-14.8); White Blood Cell Count 4.2 X10^3/uL (4.5-11.0)
[2018-09-05 06:15] LABS: Alanine Aminotransferase 17 IU/L (21-72); Albumin 2.6 g/dL (3.5-5.0); Albumin Globulin Ratio 0.9 (1.0-2.8); Alkaline Phosphatase 58 U/L (38-126); Aspartate Aminotransferase 12 IU/L (17-59); Bilirubin Total 0.3 mg/dL (0.2-1.3); Blood Urea Nitrogen 6 mg/dL (9-20); Calcium 7.1 mg/dL (8.4-10.2); Carbon Dioxide 29 mmol/L (22-32); Chloride 99 mmol/L (98-107); Estimated Glomerular Filt Rate > 60.0 mL/min (>60); Glucose 86 mg/dL (70-100); HEMOLYSIS < 15 (0-50); Potassium 3.5 mmol/L (3.4-5.1); Sodium 135 mmol/L (137-145); Total Protein 5.6 g/dL (6.3-8.2)
--- NOTE | 2018-09-05 06:24 | PC.NURSE ---
Pt VSS and A and O x 4. Pt wore CPAP for most of noc shift. He was compliant with his food restriction and continued to (under protest) allow staff to administer his albuterol inhaler. He c/o pain 02/27 and had good results with one Percocet. 1 mg Ativan given at hs. Wounds contine to be raw, open and painful. Pt is able to void on BSC now. HR reg, inspiratory and exp wheezes.
[2018-09-05] MEDS: DOXYCYCLINE HYCLATE 100 MG TABLET PO ×2 (08:11→22:09)
[2018-09-05] MEDS: DULOXETINE 30 MG CAPSULE PO (08:11)
[2018-09-05] MEDS: FLUCONAZOLE 100 MG TABLET 200 MG PO (08:11)
[2018-09-05] MEDS: GABAPENTIN 300 MG CAPSULE PO ×3 (08:12→22:08)
[2018-09-05] MEDS: MUPIROCIN 22 GM OINT 1 APPLIC TOP ×2 (08:13→22:09)
[2018-09-05] MEDS: NYSTATIN CREAM 30 GM 1 APPLIC TOP ×2 (08:13→22:09)
[2018-09-05] MEDS: OLANZapine ODT 10 MG TAB 20 MG PO (08:18)
[2018-09-05] MEDS: predniSONE 10 MG TABLET PO (08:19)
[2018-09-05] MEDS: TRAMADOL 50 MG TABLET 100 MG PO ×2 (08:25→22:09)
[2018-09-05] MEDS: METHADONE 10 MG TABLET 95 MG PO (08:32)
--- NOTE | 2018-09-05 09:32 | PT.IPTN ---
Current Diagnoses Pressure ulcer of unspecified buttock, unspecified stage (09/03/18) Physical Therapy Treatment Note M2 PT-IP Current Condition Start: 09/03/18 16:01 Freq: NEEDED Status: Active Protocol: Document 09/04/18 12:50 RCC (Rec: 09/04/18 14:15 RCC [id number]) Physical Therapy Current Condition Current Condition Evaluation Date 09/04/18 Treatment Diagnosis rectal bleeding, impaired activity tolerance Precautions Other Precautions wounds to rectum and scrotum M3 PT-IP Subjective Start: 09/03/18 16:01 Freq: NEEDED Status: Active Protocol: Document 09/05/18 09:18 LJ (Rec: 09/05/18 09:31 LJ [id number]) Subjective Physical Therapy Visit Type Type Treatment Note Visit Start Time 09:05 Visit Stop Time 09:15 Total Visit Minutes 10 Notes Pt on the commode asking for assistance with cleaning his bottom. Physical Therapy Visit Comments Patient Comments Pt states he is too weak to pearticipate in therapy at this time. M4 PT-IP Mobility and Gait Start: 09/03/18 16:01 Freq: NEEDED Status: Active Protocol: Document 09/05/18 09:18 LJ (Rec: 09/05/18 09:31 LJ [id number]) PT-Bed Mobility Assessment Sit to Supine Sit to Supine Moderate Assistance 1 Person Assistance Scooting Scooting to Edge of Bed Standby Assistance PT-Transfer Assessment Sit to and From Stand Sit to and from Stand Standby Assistance Equipment Transfer Assistive Device Front Wheeled Walker Transfers Transfer Destination Bed Transfer Technique Stand Step Pivot Transfer Ability Level of Assist Standby Assistance Comments Mobility Comments Pt required Mod assist with LEs in getting into bed. Fatigued to the point of nearly falling asleep during conversation w/OT. Gait Assessment Gait Gait Assistance Required: Standby Assistance Distance (Feet) 4 Assistive Devices Assistive Device None Gait Deviations General Gait Pattern Decreased Stride Length Flexed Trunk Wide Based Gait Factors Limiting Gait Function Factors Limiting Gait Function Decreased Activity Tolerance Comments Gait Comments Pt removed O2 during mobility. O2 sat remained at 96%. Returned to bed and reapplied O2. Pt unwilling to ambulate at this time. M5 PT-IP Objective Assessments Start: 09/03/18 16:01 Freq: NEEDED Status: Active Protocol: Document 09/04/18 12:50 RCC (Rec: 09/04/18 14:15 RCC [id number]) Orientation Orientation/Cognition Level of Alertness Alert Language Function Ability No Deficits Noted Strength Comments Strength Comments hip flexion at least 3/5 but unable to lift BLEs without assistance back to bed Coordination Assessment Gross Coordination Gross Coordination WNL M6 PT-IP Treatment Start: 09/03/18 16:01 Freq: NEEDED Status: Active Protocol: Document 09/04/18 12:50 RCC (Rec: 09/04/18 14:15 RCC [id number]) Physical Therapy Treatment Education Education Provided Safety M7 PT-IP Assessment and Plan Start: 09/03/18 16:01 Freq: NEEDED Status: Active Protocol: Document 09/05/18 09:18 LJ (Rec: 09/05/18 09:31 LJ [id number]) PT Summary Assessment and Plan Potential Rehabilitation Potential Good Status of Condition at Evaluation Stable Summary Impairments Bed Mobility Transfers Gait Activity Tolerance Assessment Summary Pt required assistance with bilateral LEs today to get back into bed due to weakness, but able to lift them and be SBA getting out of bed this session. His gait was limited by fatigue and participation/ willingness to participate in physical therapy. He is adament about going home, refuses to consider SNF rehab at this point. Pt is below his normal functional level, as he typically can ambulate on level outdoor surfaces and indoor household distances. Pt at this time would benefit from continued acute PT to progress his activity tolerance, gait, and bed mobility. If he is able to d/c home, highly recommend HH services. Goals Bed Mobility Goal Independent Transfer Goal Independent Gait Goal Standby Assistance Front Wheel Walker Gait Distance 50 Days to Meet Goals 5 Frequency of Treatment Frequency Of Treatment Once a Day Treatment Plan Physical Therapy Treatment Plan Bed Mobility Training Transfer Training Gait Training Therapeutic Exercise Discharge Planning Other Recommendations and Next Treatment progress gait in room as Focus tolerated to household distances, monitor O2. Bed mobility Recommendations To Nursing Amount of Assist Needed 1 Person Assist Discharge Recommendations PT Discharge Recommendations Home with Assistance Home Health SNF Rehab Other Discharge Recommendations SNF vs. Home with assist and HH (pt refusing SNF currently)
--- NOTE | 2018-09-05 09:48 | OT.IP.EVAL ---
Current Diagnoses Pressure ulcer of unspecified buttock, unspecified stage (09/03/18) Past Medical History (Last Reviewed 09/03/18 @ 06:06 by LIZBETH Beyer) Anxiety (Acute) Asthma (Acute) Methadone use disorder, mild, in controlled environment (Chronic) Morbid obesity (Chronic) Surgical History (Last Reviewed 09/03/18 @ 06:06 by LIZBETH Beyer) H/O vertebral fracture repair (Chronic) History of hip surgery (Chronic) Occupational Therapy Inpatient Evaluation/Re-Eval M1 PT/OT-IP Prior Functional Status Start: 09/03/18 17:35 Freq: NEEDED Status: Active Protocol: Document 09/05/18 09:26 [facility] (Rec: 09/05/18 09:48 [facility] [id number]) Medical Review Prior Functional Status Medical History Reviewed Yes Mobility and Gait pt uses a walker for level outdoor ambulation (car to home) and indoors as well Activities of Daily Living and IADL's modified indep. ADLs per pt. Pt does admit on OT eval that he is weaker and would need assist for ADl's now. Social History Household Members significant other Living Arrangements House Number of Floors (Floors) One Floor Number of Stairs To Enter/Railing? no steps to enter/exit Home Equipment Front Wheel Walker Additional Social History Comment Pt admitted for rectal bleeding, wounds on posterior scrotum and rectum. Wound care consult hopefully for Wednesday. M2 OT-IP Current Condition Start: 09/03/18 17:35 Freq: Status: Active Protocol: Document 09/05/18 09:26 [facility] (Rec: 09/05/18 09:48 [facility] [id number]) Occupational Therapy Current Condition Current Condition Evaluation Date 09/05/18 Treatment Diagnosis Rectal Bleeding Diagnosis Onset Date 09/03/18 Post Operative Precautions Other Precautions wounds to rectum and scrotum M3 OT- IP Subjective and Pain Start: 09/03/18 17:35 Freq: Status: Active Protocol: Document 09/05/18 09:26 [facility] (Rec: 09/05/18 09:48 [facility] [id number]) OT- Subjective Occupational Therapy Visit Type Type Initial Evaluation Visit Start Time 09:05 Visit Stop Time 09:15 Total Visit Minutes 10 Occupational Therapy Visit Comments Patient Comments Pt sitting on the BSC and wanting assist for hygiene and wanting to get back to bed. M4 OT- IP ADL's Start: 09/03/18 17:35 Freq: Status: Active Protocol: Document 09/05/18 09:26 [facility] (Rec: 09/05/18 09:48 [facility] [id number]) OT ADL-Grooming General Evaluation Areas Needing Assistance Retrieving/Set-up of Grooming Items Comments OT Grooming Comments Pt able to wash his hands after set-up for wash cloth. OT ADL-Dressing Comments OT Dressing Comments Pt prefers not to wear hospital gown. Pt states at home wears shirt n pants or shorts. Suggested pt may benefit from use of cda teacher now to assist to help to rosemary clothing over his feet. OT ADL-Toileting General Evaluation Toileting Ability Total Assistance Areas Needing Assistance Perform Perineal Hygiene Devices Toileting Assistive Devices Commode Comments OT Toileting Comments Pt total assist for hygiene from PRODUCTION BROACHING MACHINE OPERATOR. Pt needing use of bariatric BSC. M6 OT- IP Functional Cognition Start: 09/03/18 17:35 Freq: Status: Active Protocol: Document 09/05/18 09:26 [facility] (Rec: 09/05/18 09:48 [facility] [id number]) Cognitive Factors Limiting Selfcare Function Cognitive Ability Level of Alertness Alert Patient Orientation Name Place Situation Attention Span Ability Capable of Focused Attention Capable of Sustained Attention Ability to Follow Commands Able to Follow Multi-Step Commands Memory Description No Deficits Noted Safety Awareness Underestimates Need for Assistance Cognitive Comments Cognitive Assessment Comments Pt needing cues to slow down and wait for asistance for needs. Pt realizes that he is weaker and will need more help now. Pt states his girlfriend will be off from working in a few days and will be able to assist him. Pt refusing to go to skilled rehab at this time. M7 OT- IP Mobility and Balance Start: 09/03/18 17:35 Freq: Status: Active Protocol: Document 09/05/18 09:26 [facility] (Rec: 09/05/18 09:48 [facility] [id number]) OT- Bed Mobility Assessment Sit to Supine Sit to Supine Assist Moderate Assistance 1 Person Assistance OT-Transfer Assessment Sit to and From Stand Sit to and from Stand Standby Assistance Transfers Transfer Ability Standby Assistance 1 Person Assistance Technique Transfer Destination Bed Bedside Commode Transfer Technique Stand Step Pivot Devices Transfer Assistive Devices None Comments Mobility Comments Pt use of bedrail on the hospital bed and arm of BSC to transfer back to the bed. Pt needing MODA x1 for BLE to help get back into bed. Pt on 2.5L of O2 at 95%. Pt states at home only wears O2 at night .Pt not wanting to sleep after getting back to bed , therefore only able to see pt for transfer back to bed at this time. OT- Balance Assessment Sitting Balance and Reactions Static Sitting Balance Ability Normal Dynamic Sitting Balance Ability Good Standing Balance and Reactions Static Standing Balance Ability Fair M8 OT- IP Objective Assessments Start: 09/03/18 17:35 Freq: Status: Active Protocol: Document 09/05/18 09:26 [facility] (Rec: 09/05/18 09:48 [facility] [id number]) OT Gross Range of Motion Upper Extremity Range of Motion Assessment Within Functional Limits OT Strength Comments Strength Comments BUE strength 4/5. M9 OT- IP Assessment and Plan Start: 09/03/18 17:35 Freq: Status: Active Protocol: Document 09/05/18 09:26 [facility] (Rec: 09/05/18 09:48 [facility] [id number]) OT Summary Assessment and Plan Potential Rehabilitation Potential Fair Analytic Complexity at Evaluation Low Summary OT Impairments Strength Balance Functional Cognition Functional Mobility Grooming Dressing Toileting Bathing Toilet Transfers Shower Transfers Progress Towards Goals Slow Progress due to Pain Slow Progress due to Medical Issues Slow Progress due to Activity Tolerance Slow Progress due to Cognition Assessment Summary Pt main barrier besides medical issues are decreased activity tolerance, endurance, and now needing assist for ADL's at this time and functional mobility needs due to weakness. Pt refusing skilled rehab at this time. Acute OT to work with pt on increasing overall strength and endurance so able to be mostly MOD I with all ADl's and be back to prior level of function. Goals Grooming Goal Standby Assistance Dressing Goal Standby Assistance Toileting Goal Moderate Assistance Bathing Goal Minimal Assistance Toilet Transfer Goal Standby Assistance Shower Transfer Goal Contact Guard Assistance Patient/Caregiver Education Goal Caregiver Independent Assisting Patient OT-Other Goals Pt to be independent with BUE exercises with theraband to help improve BUE strength to increase independence with ADL 's and functional transfers. Days to Meet Goals 7 Frequency of Treatment Frequency Of Treatment Once a Day Treatment Plan OT Treatment Plan ADL Training Functional Cognition Training Functional Mobility Therapeutic Exercises Patient/Family Education Discharge Planning Other Treatment Recommendations and Next Standing at sink for grooming. Treatment Focus Use of AED for LB dressing. Discharge Recommendations OT Discharge Recommendations SNF Rehab Other Discharge Recommendations Pending medical progress and assist at home-Home with assist and HH.
--- NOTE | 2018-09-05 17:01 | RT ---
Patient had visits by RT every hour this am to try to get him to take his Advair. Patient kept asking RT to come back. Eventually refused. Just called to room by KAILYN Devine to give patient a breathing treatment that the patient requested because he was short of breath after getting up to the bedside toilet. Came directly to room but patient's dinner tray had arrived and he asked that we come back after he is finished eating. KAILYN Devine informed of situation.
--- NOTE | 2018-09-05 17:22 | P.PN_ITS ---
Subjective Date Patient Seen: 09/05/18 Interval history: Patient reports continued scrotal pain. He has ulceration and bleeding from the area. He was not seen by the [facility] today. Will we consult for them to see him tomorrow. Exam Vital Signs (past 8 hours): - 09/05/18 10:59 09/05/18 11:00 09/05/18 11:30 Temperature 97.4 F L Pulse Rate 86 Respiratory Rate 24 Blood Pressure 127/69 Pulse Oximetry 95 93 97 09/05/18 16:11 09/05/18 17:04 Temperature 97.6 F Pulse Rate 101 H Respiratory Rate 20 Blood Pressure 126/74 Pulse Oximetry 94 96 Fraction of Inspired Oxygen 21 Oxygen Delivery Method Nasal Cannula Oxygen Flow Rate 2.5 Narrative Exam Narrative: Pleasant gentleman morbidly obese who appears uncomfortable Lungs: Decreased breath sounds but clear to auscultation Cardiac exam regular rate and rhythm normal S1S2 Abdomen: Obese soft nontender, pelvic area: Ulcerations of the scrotum and perineal area open areas of skin break with multiple ulceration some weeping but no bleeding at this time Extremity: 3+ edema Objective Labs Result Diagrams: 09/05/18 05:40 09/05/18 05:40 Labs: Laboratory Results - last 24 hr 09/05/18 09/05/18 05:40 05:40 WBC 4.2 L RBC 3.74 L Hgb 9.6 L Hct 30.6 L MCV 81.8 MCH 25.8 L MCHC 31.5 RDW 16.5 H Plt Count 167 Neut % (Auto) 56.3 Lymph % (Auto) 34.2 [place] % (Auto) 9.2 Eos % (Auto) 0.0 L Baso % (Auto) 0.3 Neut # (Auto) 2400 Sodium 135 L Potassium 3.5 Chloride 99 Carbon Dioxide 29 BUN 6 L Creatinine 0.50 L Estimated GFR > 60.0 BUN/Creatinine Ratio 12.0 Glucose 86 Calcium 7.1 L Total Bilirubin 0.3 AST 12 L ALT 17 L Alkaline Phosphatase 58 Total Protein 5.6 L Albumin 2.6 L Globulin 3.0 Albumin/Globulin Ratio 0.9 L Assessment & Plan (1) Morbid obesity: Problem details: Continue calorie count, nutrition consult Current visit: No Status: Acute (2) Obstructive sleep apnea: Problem details: Patient needs outpatient sleep study Current visit: No Status: Acute (3) Cellulitis of scrotum: Problem details: Continue wound care and antibiotics Current visit: No Status: Acute (4) Decubitus ulcer of buttock, stage 2: Current visit: No Status: Acute (5) Asthma: Problem details: Inhalers as needed Qualifiers: Asthma complication type: unspecified Asthma persistence: unspecified Asthma severity: unspecified severity Qualified Code(s): J45.909 - Unspecified asthma, uncomplicated Current visit: Yes Status: Acute (6) Anxiety: Problem details: prn anxiety meds Current visit: Yes Status: Acute Quality VTE Deep Vein Thrombosis/Pulmonary Embolism Present on Admission: No
[2018-09-05] MEDS: FLUTICASONE/SALMETEROL 500/50 14 PUFF DISKUS INH (20:15)
[2018-09-06] VITALS (18 sets, daily range): BP systolic 117–132; BP diastolic 63–78; PULSE 71–103; RESP 14–24; TEMP 36.6–36.9; O2SAT 85–100
[2018-09-06] MEDS: LORazepam 1 MG TABLET PO (05:41)
[2018-09-06] MEDS: OXYCODONE/ACETAMINOPHEN 5/325 TABLET 1 TAB PO ×2 (05:41→17:35)
[2018-09-06 06:18] LABS: Add Manual Diff / Slide Review NO; Basophils Percent Auto 0.5 % (0-2); Eosinophils Percent Auto 0.1 % (2-4); Hematocrit 34.5 % (41-53); Hemoglobin 10.4 g/dL (13.5-17.5); Lymphocytes Percent Auto 32.6 % (25-40); Mean Corpuscular HGB Conc 30.3 % (30-36); Mean Corpuscular Volume 82.7 fL (80-100); Neutrophils Absolute Auto 2500 /uL (1500-7000); Neutrophils Percent Auto 56.8 % (50-75); Platelet Count 235 X10^3/uL (150-400); Red Blood Cell Count 4.17 X10^6/uL (4.5-5.9); Red Cell Distribution Width 16.8 % (11.6-14.8); White Blood Cell Count 4.4 X10^3/uL (4.5-11.0)
[2018-09-06 06:23] LABS: Alanine Aminotransferase 23 IU/L (21-72); Albumin Globulin Ratio 0.9 (1.0-2.8); Alkaline Phosphatase 70 U/L (38-126); Aspartate Aminotransferase 15 IU/L (17-59); Bilirubin Total 0.3 mg/dL (0.2-1.3); Blood Urea Nitrogen 6 mg/dL (9-20); Calcium 7.7 mg/dL (8.4-10.2); Carbon Dioxide 33 mmol/L (22-32); Chloride 101 mmol/L (98-107); Estimated Glomerular Filt Rate > 60.0 mL/min (>60); Globulin 3.3 g/dL (1.7-4.1); Glucose 84 mg/dL (70-100); HEMOLYSIS < 15 (0-50); Potassium 4.1 mmol/L (3.4-5.1); Sodium 141 mmol/L (137-145); Total Protein 6.3 g/dL (6.3-8.2)
[2018-09-06 07:04] LABS: Anisocytosis 1+; Ovalocytes 1+
[2018-09-06] MEDS: FLUTICASONE/SALMETEROL 500/50 14 PUFF DISKUS INH ×2 (07:50→19:27)
[2018-09-06] MEDS: ALBUTEROL HFA 60 PUFF/8 GM INH INH ×2 (07:51→19:27)
[2018-09-06] MEDS: NYSTATIN CREAM 30 GM 1 APPLIC TOP (07:51)
[2018-09-06] MEDS: MUPIROCIN 22 GM OINT 1 APPLIC TOP (07:51)
[2018-09-06] MEDS: METHADONE 10 MG TABLET 95 MG PO (08:38)
[2018-09-06] MEDS: DOXYCYCLINE HYCLATE 100 MG TABLET PO ×2 (08:44→19:55)
[2018-09-06] MEDS: GABAPENTIN 300 MG CAPSULE PO ×3 (08:44→19:56)
[2018-09-06] MEDS: predniSONE 10 MG TABLET PO (08:44)
[2018-09-06] MEDS: DULOXETINE 30 MG CAPSULE PO (08:45)
[2018-09-06] MEDS: FLUCONAZOLE 100 MG TABLET 200 MG PO (08:45)
[2018-09-06] MEDS: OLANZapine ODT 10 MG TAB 20 MG PO (08:46)
--- NOTE | 2018-09-06 09:59 | OT.IP.TRT ---
Current Diagnoses Morbid (severe) obesity due to excess calories (09/03/18) Anxiety disorder, unspecified (09/03/18) Obstructive sleep apnea (adult) (pediatric) (09/03/18) Unspecified asthma, uncomplicated (09/03/18) Pressure ulcer of unspecified buttock, stage 2 (09/03/18) Pressure ulcer of unspecified buttock, unspecified stage (09/03/18) Inflammatory disorders of scrotum (09/03/18) Occupational Therapy Treatment Note M2 OT-IP Current Condition Start: 09/03/18 17:35 Freq: Status: Active Protocol: Document 09/05/18 09:26 [facility] (Rec: 09/05/18 09:48 [facility] [id number]) Occupational Therapy Current Condition Current Condition Evaluation Date 09/05/18 Treatment Diagnosis Rectal Bleeding Diagnosis Onset Date 09/03/18 Post Operative Precautions Other Precautions wounds to rectum and scrotum M3 OT- IP Subjective and Pain Start: 09/03/18 17:35 Freq: Status: Active Protocol: Document 09/06/18 09:59 [facility] (Rec: 09/06/18 09:59 [facility] [id number]) OT- Subjective Occupational Therapy Visit Type Type Patient Unavailable Notes Attempted to see pt for OT, pt asleep, to try again later.
[2018-09-06] MEDS: TRAMADOL 50 MG TABLET 100 MG PO ×2 (10:10→19:56)
--- NOTE | 2018-09-06 10:31 | PC.NURSE ---
AM NOTE - pt up to bsc voided, sob w/any activity, asking for his inhalers, buttock, posterior scrotal area excoriated with pink wound beds scattered accross buttock, slight serosang drainage, cleaned and ointment applied, bs dim, 2.5L overnight, RT in and tmt provided.
[2018-09-06] MEDS: ALBUTEROL/IPRATROPIUM 3 ML AMPUL INH (11:38)
--- NOTE | 2018-09-06 11:40 | PT.IPTN ---
Current Diagnoses Morbid (severe) obesity due to excess calories (09/03/18) Anxiety disorder, unspecified (09/03/18) Obstructive sleep apnea (adult) (pediatric) (09/03/18) Unspecified asthma, uncomplicated (09/03/18) Pressure ulcer of unspecified buttock, stage 2 (09/03/18) Pressure ulcer of unspecified buttock, unspecified stage (09/03/18) Inflammatory disorders of scrotum (09/03/18) Physical Therapy Treatment Note M2 PT-IP Current Condition Start: 09/03/18 16:01 Freq: NEEDED Status: Active Protocol: Document 09/04/18 12:50 [facility] (Rec: 09/04/18 14:15 [facility] [id number]) Physical Therapy Current Condition Current Condition Evaluation Date 09/04/18 Treatment Diagnosis rectal bleeding, impaired activity tolerance Precautions Other Precautions wounds to rectum and scrotum M3 PT-IP Subjective Start: 09/03/18 16:01 Freq: NEEDED Status: Active Protocol: Document 09/06/18 11:30 [facility] (Rec: 09/06/18 11:40 [facility] [id number]) Subjective Physical Therapy Visit Type Type Treatment Note Visit Start Time 11:05 Visit Stop Time 11:25 Total Visit Minutes 20 Notes Pt in bed and hesistant to get OOB. Agreeable after education on skin breakdown. Physical Therapy Visit Comments Patient Comments Pt states he feels tired but willing to try. Patient Goals Pt plans to go home. Therapy Pain Assessment Pain When Pain Assessed At Rest Pain Present Pain Present Denied Pain M4 PT-IP Mobility and Gait Start: 09/03/18 16:01 Freq: NEEDED Status: Active Protocol: Document 09/06/18 11:30 [facility] (Rec: 09/06/18 11:40 [facility] [id number]) PT-Bed Mobility Assessment Supine to Sit Supine to Sit Independent Bedrails Sit to Supine Sit to Supine Moderate Assistance 1 Person Assistance Scooting Scooting to Edge of Bed Standby Assistance Scooting Up and Down in Bed Standby Assistance PT-Transfer Assessment Sit to and From Stand Sit to and from Stand Standby Assistance Equipment Transfer Assistive Device Gait Belt Front Wheeled Walker Transfers Transfer Destination Bed Bedside Commode Transfer Technique Stand Step Pivot Transfer Ability Level of Assist Standby Assistance Comments Mobility Comments Pt uses overhead trapeze for scootinig up/down in bed and supine<>sit. Mod A for LEs for sit to supine. Gait Assessment Gait Gait Assistance Required: Standby Assistance Distance (Feet) 14 Assistive Devices Assistive Device Gait Belt Front Wheeled Walker Gait Deviations General Gait Pattern Decreased Stride Length Flexed Trunk Wide Based Gait Factors Limiting Gait Function Factors Limiting Gait Function Decreased Activity Tolerance Comments Gait Comments Did not use 02. levels dropped to 88% with ambualtion, able to recover to 96% with PLB, 02 back when returned to bed. PT-Balance Assessment Comments Other Balance Tests/Deviations/Treatment Pt ablet to maintain static : standing balance well x 1-2 min with SBA durinig hygiene care after using BSC. M5 PT-IP Objective Assessments Start: 09/03/18 16:01 Freq: NEEDED Status: Active Protocol: Document 09/04/18 12:50 [facility] (Rec: 09/04/18 14:15 [facility] [id number]) Orientation Orientation/Cognition Level of Alertness Alert Language Function Ability No Deficits Noted Strength Comments Strength Comments hip flexion at least 3/5 but unable to lift BLEs without assistance back to bed Coordination Assessment Gross Coordination Gross Coordination WNL M6 PT-IP Treatment Start: 09/03/18 16:01 Freq: NEEDED Status: Active Protocol: Document 09/06/18 11:30 [facility] (Rec: 09/06/18 11:40 [facility] [id number]) Physical Therapy Treatment Education Education Provided Safety Other Treatments Other Treatment Performed Education for safety and skin breakdown, need for hygiene with toileting. M7 PT-IP Assessment and Plan Start: 09/03/18 16:01 Freq: NEEDED Status: Active Protocol: Document 09/06/18 11:30 [facility] (Rec: 09/06/18 11:40 [id number]) PT Summary Assessment and Plan Potential Rehabilitation Potential Good Status of Condition at Evaluation Stable Summary Assessment Summary Pt with poor activity tolerance and SOB with mobility. Education provided for safety, hygiene and skin breakdown. Continue to progress OOB activity. Frequency of Treatment Frequency Of Treatment Once a Day Recommendations To Nursing Amount of Assist Needed 1 Person Assist Discharge Recommendations PT Discharge Recommendations Home with Assistance Home Health SNF Rehab Other Discharge Recommendations SNF vs. Home with assist and HH (pt refusing SNF currently)
--- NOTE | 2018-09-06 13:51 | OT.IP.TRT ---
Current Diagnoses Morbid (severe) obesity due to excess calories (09/03/18) Anxiety disorder, unspecified (09/03/18) Obstructive sleep apnea (adult) (pediatric) (09/03/18) Unspecified asthma, uncomplicated (09/03/18) Pressure ulcer of unspecified buttock, stage 2 (09/03/18) Pressure ulcer of unspecified buttock, unspecified stage (09/03/18) Inflammatory disorders of scrotum (09/03/18) Occupational Therapy Treatment Note M2 OT-IP Current Condition Start: 09/03/18 17:35 Freq: Status: Active Protocol: Document 09/05/18 09:26 [facility] (Rec: 09/05/18 09:48 [facility] [id number]) Occupational Therapy Current Condition Current Condition Evaluation Date 09/05/18 Treatment Diagnosis Rectal Bleeding Diagnosis Onset Date 09/03/18 Post Operative Precautions Other Precautions wounds to rectum and scrotum M3 OT- IP Subjective and Pain Start: 09/03/18 17:35 Freq: Status: Active Protocol: Document 09/06/18 13:25 [facility] (Rec: 09/06/18 13:51 [facility] [id number]) OT- Subjective Occupational Therapy Visit Type Type Treatment Note Visit Start Time 11:05 Visit Stop Time 11:25 Total Visit Minutes 20 Occupational Therapy Visit Comments Patient Comments Initially, pt not wanting to get up, however after education and encouragement with HAT SPRAYER and OT , pt agreeing to walk around the bed with FWW. OT Pain Assessment Pain When Pain Assessed At Rest Pain Present Pain Present Pain Reported M4 OT- IP ADL's Start: 09/03/18 17:35 Freq: Status: Active Protocol: Document 09/06/18 13:25 [facility] (Rec: 09/06/18 13:51 [facility] [id number]) OT ADL-Dressing General Eval Lower Body Dressing Ability Maximum Assistance Comments OT Dressing Comments Educated and showed pt wireless watcher that can be used for LB dressing needs. At this time, pt prefers not to wear any clothing/gown while in the room and in bed. OT ADL-Toileting General Evaluation Toileting Ability Total Assistance Areas Needing Assistance Perform Perineal Hygiene Comments OT Toileting Comments Pt states at home does not do any pericare needs as difficulty for him to reach as pt is morbid obese. Due to wounds would not be safe to use adaptive aids and would be best to have assist for hygiene at home. M6 OT- IP Functional Cognition Start: 09/03/18 17:35 Freq: Status: Active Protocol: Document 09/05/18 09:26 [facility] (Rec: 09/05/18 09:48 [facility] [id number]) Cognitive Factors Limiting Selfcare Function Cognitive Ability Level of Alertness Alert Patient Orientation Name Place Situation Attention Span Ability Capable of Focused Attention Capable of Sustained Attention Ability to Follow Commands Able to Follow Multi-Step Commands Memory Description No Deficits Noted Safety Awareness Underestimates Need for Assistance Cognitive Comments Cognitive Assessment Comments Pt needing cues to slow down and wait for assistance for needs. Pt realizes that he is weaker and will need more help now. Pt states his girlfriend will be off from working in a few days and will be able to assist him. Pt refusing to go to skilled rehab at this time. M7 OT- IP Mobility and Balance Start: 09/03/18 17:35 Freq: Status: Active Protocol: Document 09/06/18 13:25 [facility] (Rec: 09/06/18 13:51 [facility] [id number]) OT- Bed Mobility Assessment Rolling Type of Rolling Roll to Right Level of Assistance Standby Assistance Bedrails Supine to Sit Supine to Sit Assist Standby Assistance 1 Person Assistance Sit to Supine Sit to Supine Assist Moderate Assistance 1 Person Assistance OT-Transfer Assessment Sit to and From Stand Sit to and from Stand Standby Assistance 1 Person Assistance Transfers Transfer Ability Standby Assistance 1 Person Assistance Technique Transfer Destination Bed Bedside Commode Transfer Technique Stand Step Pivot Devices Transfer Assistive Devices Gait Belt Front Wheeled Walker Comments Mobility Comments SBA with bariatric FWW, pt get tired quickly , pt not wanting o2 on and drops to 88% and with O2 on 95% afterwards . Pt not wanting to stand to do any grooming needs. OT- Balance Assessment Sitting Balance and Reactions Static Sitting Balance Ability Normal Dynamic Sitting Balance Ability Good Standing Balance and Reactions Static Standing Balance Ability Fair M8 OT- IP Objective Assessments Start: 18 17:35 Freq: Status: Active Protocol: Document 09/05/18 09:26 [facility] (Rec: 09/05/18 09:48 [facility] [id number]) OT Gross Range of Motion Upper Extremity Range of Motion Assessment Within Functional Limits OT Strength Comments Strength Comments BUE strength 4/5. M9 OT- IP Assessment and Plan Start: 09/03/18 17:35 Freq: Status: Active Protocol: Document 09/06/18 13:25 [facility] (Rec: 09/06/18 13:51 [facility] [id number]) OT Summary Assessment and Plan Potential Rehabilitation Potential Fair Analytic Complexity at Evaluation Low Summary OT Impairments Strength Balance Functional Cognition Functional Mobility Grooming Dressing Toileting Bathing Toilet Transfers Shower Transfers Progress Towards Goals Slow Progress due to Pain Slow Progress due to Medical Issues Slow Progress due to Activity Tolerance Slow Progress due to Cognition Assessment Summary Pt needs lots of encouragement to participate in therapy, education for insight of trying to stay active, and keeping himself clean. Continue to suggest skilled rehab for pt. Goals Grooming Goal Standby Assistance Dressing Goal Standby Assistance Toileting Goal Moderate Assistance Bathing Goal Moderate Assistance Toilet Transfer Goal Standby Assistance Shower Transfer Goal Contact Guard Assistance Patient/Caregiver Education Goal Caregiver Independent Assisting Patient OT-Other Goals BUE exercises. Frequency of Treatment Frequency Of Treatment Once a Day Treatment Plan OT Treatment Plan ADL Training Functional Cognition Training Functional Mobility Therapeutic Exercises Patient/Family Education Discharge Planning Other Treatment Recommendations and Next UB exercises with theraband Treatment Focus Discharge Recommendations OT Discharge Recommendations SNF Rehab Other Discharge Recommendations Pending assist at home-Home with assist and HH.
--- NOTE | 2018-09-06 13:59 | PM.PN.1 ---
Subjective Date Patient Seen: 09/06/18 Interval history: Consultation with son and of patient Lou Fitzgerald. At this point the patient is ready for his next level of care. We are recommending transfer to SNF. Unfortunately because of the patient's baseline dementia and frequent getting out of bed there are very few fpc facility is willing to accept the patient. We have obtained a nursing facility for him located in [place] in the patient's son and family are refusing that particular facility. The facility is [address] and the patient's will be unable to visit him. Most of his family live on [facility] and will be unable to see the patient. At this point the son is refusing to discharge the patient to the [facility] located on [place]. In addition the patient has been calm there has been no evidence of combativeness and there has been no difficulty with him climbing out of bed particularly at night. At this point I will contact the medical library assistant at [facility] to see if they would consider him coming to foot although for ongoing care. Will continue physical therapy occupational therapy here in the hospital. Continue his medications Current leave that seem to be improving his behavior. Greater than 50% of this visit spent on counseling with the patient at the bedside. 30 min spent discussing care. Exam Vital Signs (past 8 hours): - 09/06/18 06:00 09/06/18 06:13 09/06/18 07:45 Temperature 98.1 F 97.8 F Pulse Rate 90 103 H Respiratory Rate 18 24 Blood Pressure 132/78 131/77 Pulse Oximetry 85 L 98 92 09/06/18 07:51 09/06/18 08:00 09/06/18 08:10 Temperature Pulse Rate 90 90 Respiratory Rate 15 15 Blood Pressure Pulse Oximetry 97 93 87 L 09/06/18 08:11 09/06/18 11:00 09/06/18 11:38 Temperature 97.8 F Pulse Rate 84 71 Respiratory Rate 20 14 Blood Pressure 128/63 Pulse Oximetry 96 100 98 Fraction of Inspired Oxygen 21 Oxygen Delivery Method Nasal Cannula Oxygen Flow Rate 2 Objective Labs Result Diagrams: 09/06/18 05:45 09/06/18 05:45 Labs: Laboratory Results - last 24 hr 09/06/18 09/06/18 05:45 05:45 WBC 4.4 L RBC 4.17 L Hgb 10.4 L Hct 34.5 L MCV 82.7 MCH 25.0 L MCHC 30.3 RDW 16.8 H Plt Count 235 Neut % (Auto) 56.8 Lymph % (Auto) 32.6 [place] % (Auto) 10.0 Eos % (Auto) 0.1 L Baso % (Auto) 0.5 Neut # (Auto) 2500 RBC Morphology See below Anisocytosis 1+ H Ovalocytes 1+ H Sodium 141 Potassium 4.1 Chloride 101 Carbon Dioxide 33 H BUN 6 L Creatinine 0.50 L Estimated GFR > 60.0 BUN/Creatinine Ratio 12.0 Glucose 84 Calcium 7.7 L Total Bilirubin 0.3 AST 15 L ALT 23 Alkaline Phosphatase 70 Total Protein 6.3 Albumin 3.0 L Globulin 3.3 Albumin/Globulin Ratio 0.9 L Quality VTE Deep Vein Thrombosis/Pulmonary Embolism Present on Admission: No
--- NOTE | 2018-09-06 14:02 | P.PN_ITS ---
Subjective Date Patient Seen: 09/06/18 Interval history: Consultation with son and of patient Lou Fitzgerald. At this point the patient is ready for his next level of care. We are recommending transfer to SNF. Unfortunately because of the patient's baseline dementia and frequent getting out of bed there are very few correction facility is willing to accept the patient. We have obtained a nursing facility for him located in [place] in the patient's son and family are refusing that particular facility. The facility is [address] and the patient's will be unable to visit him. Most of his family live on [facility] and will be unable to see the patient. At this point the son is refusing to discharge the patient to the [facility] located on [place]. In addition the patient has been calm there has been no evidence of combativeness and there has been no difficulty with him climbing out of bed particularly at night. At this point I will contact the diagnostic medical sonographer at [facility] to see if they would consider him coming to foot although for ongoing care. Will continue physical therapy occupational therapy here in the hospital. Continue his medications Current leave that seem to be improving his behavior. Greater than 50% of this visit spent on counseling with the patient at the bedside. 30 min spent discussing care. Exam Vital Signs (past 8 hours): - 09/06/18 06:00 09/06/18 06:13 09/06/18 07:45 Temperature 98.1 F 97.8 F Pulse Rate 90 103 H Respiratory Rate 18 24 Blood Pressure 132/78 131/77 Pulse Oximetry 85 L 98 92 09/06/18 07:51 09/06/18 08:00 09/06/18 08:10 Temperature Pulse Rate 90 90 Respiratory Rate 15 15 Blood Pressure Pulse Oximetry 97 93 87 L 09/06/18 08:11 09/06/18 11:00 09/06/18 11:38 Temperature 97.8 F Pulse Rate 84 71 Respiratory Rate 20 14 Blood Pressure 128/63 Pulse Oximetry 96 100 98 Fraction of Inspired Oxygen 21 Oxygen Delivery Method Nasal Cannula Oxygen Flow Rate 2 Objective Labs Result Diagrams: 09/06/18 05:45 09/06/18 05:45 Labs: Laboratory Results - last 24 hr 09/06/18 09/06/18 05:45 05:45 WBC 4.4 L RBC 4.17 L Hgb 10.4 L Hct 34.5 L MCV 82.7 MCH 25.0 L MCHC 30.3 RDW 16.8 H Plt Count 235 Neut % (Auto) 56.8 Lymph % (Auto) 32.6 [place] % (Auto) 10.0 Eos % (Auto) 0.1 L Baso % (Auto) 0.5 Neut # (Auto) 2500 RBC Morphology See below Anisocytosis 1+ H Ovalocytes 1+ H Sodium 141 Potassium 4.1 Chloride 101 Carbon Dioxide 33 H BUN 6 L Creatinine 0.50 L Estimated GFR > 60.0 BUN/Creatinine Ratio 12.0 Glucose 84 Calcium 7.7 L Total Bilirubin 0.3 AST 15 L ALT 23 Alkaline Phosphatase 70 Total Protein 6.3 Albumin 3.0 L Globulin 3.3 Albumin/Globulin Ratio 0.9 L Quality VTE Deep Vein Thrombosis/Pulmonary Embolism Present on Admission: No
--- NOTE | 2018-09-06 16:34 | CM.DPNOTE ---
DCP/continued: Received request in AM rounds that Dr. Cobos would like patient evaluated by [facility] for extensive wound care and weight. LEAD SHAREPOINT DEVELOPER spoke with Sofía at [facility] and she reports that Medicaid does not authorize [facility] unless vent needed. Dr. Cobos notified. In addition, to above wound care consult pending. Provided Dr. Cobos with directory of wound care's phone number for inpatient consult. Apparently, they were supposed to come on Wednesday09-05-18. Patient's clinic has been sent to [facility] for review. CM team to follow up with them on whether or not they will consider. If not additional SNF's in [facility] and out of [facility] will need to be attempted. Patient has been unsuccessful at home and has had multiple visits to ED and admissions. P: Pending. Currently wound care consult pending. SNF recommended. JOSÉ LUIS Noriega
--- NOTE | 2018-09-06 17:08 | P.PN_ITS ---
Subjective Date Patient Seen: 09/06/18 Interval history: Patient is lying in bed in no acute distress. He reports that he was seen by wound care however wound care note is not seen. He is on CPAP and appears to be short of breath. Exam Vital Signs (past 8 hours): - 09/06/18 11:00 09/06/18 11:38 09/06/18 14:00 Temperature 97.8 F Pulse Rate 84 71 Respiratory Rate 20 14 Blood Pressure 128/63 Pulse Oximetry 100 98 93 09/06/18 15:00 Temperature 98.1 F Pulse Rate 86 Respiratory Rate 24 Blood Pressure 131/73 Pulse Oximetry 95 Fraction of Inspired Oxygen 21 Oxygen Delivery Method Room Air Oxygen Flow Rate 2 Narrative Exam Narrative: Obese male lying in bed in no obvious distress Lungs: Clear to auscultation Cardiac exam: Regular rate and rhythm normal S1 and S2 Abdomen: Obese soft and nontender Scrotum: Macerated skin with open lesions no evidence of draining. Extremities: 3+ edema Objective Labs Result Diagrams: 09/06/18 05:45 09/06/18 05:45 Labs: Laboratory Results - last 24 hr 09/06/18 09/06/18 05:45 05:45 WBC 4.4 L RBC 4.17 L Hgb 10.4 L Hct 34.5 L MCV 82.7 MCH 25.0 L MCHC 30.3 RDW 16.8 H Plt Count 235 Neut % (Auto) 56.8 Lymph % (Auto) 32.6 [place] % (Auto) 10.0 Eos % (Auto) 0.1 L Baso % (Auto) 0.5 Neut # (Auto) 2500 RBC Morphology See below Anisocytosis 1+ H Ovalocytes 1+ H Sodium 141 Potassium 4.1 Chloride 101 Carbon Dioxide 33 H BUN 6 L Creatinine 0.50 L Estimated GFR > 60.0 BUN/Creatinine Ratio 12.0 Glucose 84 Calcium 7.7 L Total Bilirubin 0.3 AST 15 L ALT 23 Alkaline Phosphatase 70 Total Protein 6.3 Albumin 3.0 L Globulin 3.3 Albumin/Globulin Ratio 0.9 L Assessment & Plan (1) Cellulitis and abscess of buttock: Problem details: The patient is growing polymicrobial infection from the buttock wound. Will continue antibiotics as ordered Current visit: Yes Status: Acute (2) Asthma with acute exacerbation: Problem details: Asthma appears to be improved. Will start taper steroids according Qualifiers: Asthma persistence: persistent Asthma severity: unspecified severity Qualified Code(s): J45.901 - Unspecified asthma with (acute) exacerbation Current visit: No Status: Acute (3) Anxiety: Current visit: No Status: Acute (4) Decubitus ulcer, infected: Problem details: Awaiting wound care consultation. Will continue wound dressings at this time. Qualifiers: Pressure injury stage: unspecified pressure injury stage Qualified Code (s): L89.90 - Pressure ulcer of unspecified site, unspecified stage; L08.9 - Local infection of the skin and subcutaneous tissue, unspecified Current visit: Yes Status: Acute (5) Obstructive sleep apnea: Problem details: Patient needs outpatient sleep study Continue CPAP Current visit: No Status: Acute (6) Morbid obesity: Problem details: Continue calorie count, nutrition consult Current visit: No Status: Acute (7) Narcotic addiction: Problem details: Continue methadone at 95 mg daily Current visit: No Status: Acute Plan: Assessment/Plan Narrative: Plan for sniff placement for ongoing wound care Quality VTE Deep Vein Thrombosis/Pulmonary Embolism Present on Admission: No
--- NOTE | 2018-09-06 17:51 | PC.NURSE ---
Wound Ostomy Nurse Consult Note. Babatunde is not new to me, as I have seen him about two months ago for the same scrotal ulcers. He continues to have multiple irregular superficial partical thickness ulcers on his scrotum. The largest of them measures 7.0x4.0x.2 cm. I placed duoderm on these superficial area. He has two larger ulcers on both legs where is very large scrotum meets his legs posteriorly which I have seen from my visit with him upon his last hospitalizations. The left posterior leg ulcer measures 7.0x4.0x0.2 cm the wound base is bright red, the edges are irregular without redness or swelling. There is a area of hypertrophic skin. A small amount of serous drainage. His right posterior leg ulcer measures 6.0x 5.0x0.2, This wound also has a red moist wound bed with irregular edges without redness or swelling and a hypertrophic skin area. All of these wounds have been photographed by his nurse Alma Rosa that helped me during the assessment. I used a zinc based skin barrier cream on the leg wounds because I felt the hydrocolloid would roll. Babatunde is on a bariatric low air low bed, which is great for his skin. We used intra -dry between his folds. I would not recommend using a wet cream in these folds. The Intra-Dry need to have a corner of it exposed to air so it will wick away moisture. I would recommend changing the hydrocolloids every three days.
--- NOTE | 2018-09-06 21:45 | PC.NURSE ---
1500- assumed care of pt from outgoing shift at 1500- pt asleep at this time. arouses to voice. asking for snacks and when dinner is. compliant with nursing assessments. questions answered. 1630- wound care nurse here to see pt. we dressed and cleaned the wounds with soap and water, saline and gauze. dried them. placed duoderm(hydrocolloid) to scrotal/epi-penile area and smeared zinc barrier cream to open wounds to buttocks and penis, pt tolerated ok. Pt did stand up for us for a bit and had to sit down momentarily to rest his legs. but able to sit and stand back up for us to complete wound care. pictures were taken and measurements completed by wound nurse. Pt compliant and pt tolerated ok. did medicate after dressing change. intra dry placed between groin and abd folds and side folds. Pt compliant 1900- pt found to not have oxygen on o2 low 80s. inhaler given and pt went on CPAP with oxygen bled in, but frequently takes it off and switches to NC but then takes his NC off. pt told he needs to keep it on.
[2018-09-07] VITALS (16 sets, daily range): BP systolic 99–123; BP diastolic 64–74; PULSE 82–105; RESP 16–20; TEMP 36.2–36.7; O2SAT 90–98
[2018-09-07] MEDS: ALBUTEROL/IPRATROPIUM 3 ML AMPUL INH ×3 (05:15→17:34)
[2018-09-07 05:53] LABS: Add Manual Diff / Slide Review NO; Basophils Percent Auto 0.7 % (0-2); Eosinophils Percent Auto 0.1 % (2-4); Hematocrit 32.5 % (41-53); Hemoglobin 10.2 g/dL (13.5-17.5); Lymphocytes Percent Auto 39.4 % (25-40); Mean Corpuscular HGB Conc 31.5 % (30-36); Mean Corpuscular Hemoglobin 25.8 PG (26-34); Monocytes Percent Auto 10.7 % (3-14); Neutrophils Absolute Auto 1600 /uL (1500-7000); Neutrophils Percent Auto 49.1 % (50-75); Platelet Count 197 X10^3/uL (150-400); Red Blood Cell Count 3.96 X10^6/uL (4.5-5.9); Red Cell Distribution Width 16.3 % (11.6-14.8); White Blood Cell Count 3.2 X10^3/uL (4.5-11.0)
[2018-09-07] MEDS: GABAPENTIN 300 MG CAPSULE PO ×3 (09:03→22:01)
[2018-09-07] MEDS: predniSONE 10 MG TABLET PO (09:03)
[2018-09-07] MEDS: DOXYCYCLINE HYCLATE 100 MG TABLET PO ×2 (09:04→22:01)
[2018-09-07] MEDS: OLANZapine ODT 10 MG TAB 20 MG PO (09:07)
[2018-09-07] MEDS: FLUCONAZOLE 100 MG TABLET 200 MG PO (09:08)
[2018-09-07] MEDS: ALBUTEROL HFA 60 PUFF/8 GM INH INH (09:15)
[2018-09-07] MEDS: FLUTICASONE/SALMETEROL 500/50 14 PUFF DISKUS INH ×2 (09:16→17:34)
[2018-09-07] MEDS: METHADONE 10 MG TABLET 95 MG PO (09:18)
[2018-09-07] MEDS: TRAMADOL 50 MG TABLET 100 MG PO ×2 (11:05→22:02)
[2018-09-07] MEDS: DULOXETINE 30 MG CAPSULE PO (11:41)
--- NOTE | 2018-09-07 11:58 | PT.IPTN ---
Current Diagnoses Morbid (severe) obesity due to excess calories (09/03/18) Opioid dependence, uncomplicated (09/03/18) Anxiety disorder, unspecified (09/03/18) Obstructive sleep apnea (adult) (pediatric) (09/03/18) Unspecified asthma with (acute) exacerbation (09/03/18) Unspecified asthma, uncomplicated (09/03/18) Cutaneous abscess of buttock (09/03/18) Cellulitis of buttock (09/03/18) Local infection of the skin and subcutaneous tissue, unspecified (09/03/18) Pressure ulcer of unspecified buttock, stage 2 (09/03/18) Pressure ulcer of unspecified buttock, unspecified stage (09/03/18) Pressure ulcer of unspecified site, unspecified stage (09/03/18) Inflammatory disorders of scrotum (09/03/18) Physical Therapy Treatment Note M2 PT-IP Current Condition Start: 09/03/18 16:01 Freq: NEEDED Status: Active Protocol: Document 09/04/18 12:50 RCC (Rec: 09/04/18 14:15 RCC [id number]) Physical Therapy Current Condition Current Condition Evaluation Date 09/04/18 Treatment Diagnosis rectal bleeding, impaired activity tolerance Precautions Other Precautions wounds to rectum and scrotum M3 PT-IP Subjective Start: 09/03/18 16:01 Freq: NEEDED Status: Active Protocol: Document 09/07/18 11:34 SA (Rec: 09/07/18 11:58 SA [id number]) Subjective Physical Therapy Visit Type Type Treatment Note Visit Start Time 10:45 Visit Stop Time 11:20 Total Visit Minutes 35 Notes Co-tx with OT, pre-set therapy time arranged with pt before hand. Number of MAINTENANCE WORKER SWIMMING POOL Visits 3 Physical Therapy Visit Comments Patient Comments Pt states his backside hurts. Patient Goals Pt still plans to go home. Therapy Pain Assessment Pain When Pain Assessed At Rest Pain Present Pain Present Pain Reported Location bottom/scrotum Intensity 2 Scale Used Numeric (1 - 10) Pain Management Techniques Modification of Treatment Re-positioning M4 PT-IP Mobility and Gait Start: 09/03/18 16:01 Freq: NEEDED Status: Active Protocol: Document 09/07/18 11:34 SA (Rec: 09/07/18 11:58 SA [id number]) PT-Bed Mobility Assessment Rolling Type of Rolling Roll to Left Level of Assist Standby Assistance Supine to Sit Supine to Sit Independent Bedrails Sit to Supine Sit to Supine Moderate Assistance 1 Person Assistance Scooting Scooting to Edge of Bed Standby Assistance Scooting Up and Down in Bed Standby Assistance PT-Transfer Assessment Sit to and From Stand Sit to and from Stand Standby Assistance Equipment Transfer Assistive Device Gait Belt Front Wheeled Walker Transfers Transfer Destination Bed Bedside Commode Transfer Technique Stand Step Pivot Transfer Ability Level of Assist Standby Assistance Comments Mobility Comments Pt impulsive and not resceptive to cues for safety as evidenced by his attempt to sit up on metal portion of bed that was exposed after matress had slid. Gait Assessment Gait Gait Assistance Required: Standby Assistance Distance (Feet) 16 Assistive Devices Assistive Device Gait Belt Front Wheeled Walker Gait Deviations General Gait Pattern Decreased Stride Length Flexed Trunk Wide Based Gait Factors Limiting Gait Function Factors Limiting Gait Function Decreased Activity Tolerance Difficulty Following Directions Poor Safety Awareness Comments Gait Comments Pt with supplemental 02 during tx today. 02 sats 90-96% with activity. Mod cues for safety and use of FWW during gait with SBA. PT-Balance Assessment Comments Other Balance Tests/Deviations/Treatment Static standing completed at : sink for 17 + 30 + 30 seconds during self care tasks, pt fatigues quickly and needs seated rest breaks. SBA for repeated sit to stands. Frequent and repeated cues/ education for safety and movement planning. M5 PT-IP Objective Assessments Start: 09/03/18 16:01 Freq: NEEDED Status: Active Protocol: Document 09/04/18 12:50 RCC (Rec: 09/04/18 14:15 RCC [id number]) Orientation Orientation/Cognition Level of Alertness Alert Language Function Ability No Deficits Noted Strength Comments Strength Comments hip flexion at least 3/5 but unable to lift BLEs without assistance back to bed Coordination Assessment Gross Coordination Gross Coordination WNL M6 PT-IP Treatment Start: 09/03/18 16:01 Freq: NEEDED Status: Active Protocol: Document 09/07/18 11:34 SA (Rec: 09/07/18 11:58 SA [id number]) Physical Therapy Treatment Exercises Exercises Ankle Pumps Heel Slides Education Education Provided Safety Other Treatments Other Treatment Performed Continued education for safety and increasing daily activity . M7 PT-IP Assessment and Plan Start: 09/03/18 16:01 Freq: NEEDED Status: Active Protocol: Document 09/07/18 11:34 (Rec: 09/07/18 11:58 [id number]) PT Summary Assessment and Plan Potential Rehabilitation Potential Good Status of Condition at Evaluation Stable Summary Assessment Summary Continued poor insight and safety awareness with very limited activity tolerance. Frequency of Treatment Frequency Of Treatment Once a Day Recommendations To Nursing Amount of Assist Needed 1 Person Assist Discharge Recommendations PT Discharge Recommendations Home with Assistance Home Health SNF Rehab Other Discharge Recommendations SNF vs. Home with assist and HH (pt refusing SNF currently)
--- NOTE | 2018-09-07 12:14 | OT.IP.TRT ---
Current Diagnoses Morbid (severe) obesity due to excess calories (09/03/18) Opioid dependence, uncomplicated (09/03/18) Anxiety disorder, unspecified (09/03/18) Obstructive sleep apnea (adult) (pediatric) (09/03/18) Unspecified asthma with (acute) exacerbation (09/03/18) Unspecified asthma, uncomplicated (09/03/18) Cutaneous abscess of buttock (09/03/18) Cellulitis of buttock (09/03/18) Local infection of the skin and subcutaneous tissue, unspecified (09/03/18) Pressure ulcer of unspecified buttock, stage 2 (09/03/18) Pressure ulcer of unspecified buttock, unspecified stage (09/03/18) Pressure ulcer of unspecified site, unspecified stage (09/03/18) Inflammatory disorders of scrotum (09/03/18) Occupational Therapy Treatment Note M2 OT-IP Current Condition Start: 09/03/18 17:35 Freq: Status: Active Protocol: Document 09/05/18 09:26 [facility] (Rec: 09/05/18 09:48 [facility] [id number]) Occupational Therapy Current Condition Current Condition Evaluation Date 09/05/18 Treatment Diagnosis Rectal Bleeding Diagnosis Onset Date 09/03/18 Post Operative Precautions Other Precautions wounds to rectum and scrotum M3 OT- IP Subjective and Pain Start: 09/03/18 17:35 Freq: Status: Active Protocol: Document 09/07/18 12:04 [facility] (Rec: 09/07/18 12:14 [facility] [id number]) OT- Subjective Occupational Therapy Visit Type Type Treatment Note Visit Start Time 10:45 Visit Stop Time 11:20 Total Visit Minutes 35 Occupational Therapy Visit Comments Patient Comments Pt not wanting to get up earlier and with EVENT PROMOTER able to set time to see pt for therapy . OT Pain Assessment Pain When Pain Assessed At Rest Pain Present Pain Present Denied Pain M4 OT- IP ADL's Start: 09/03/18 17:35 Freq: Status: Active Protocol: Document 09/07/18 12:04 [facility] (Rec: 09/07/18 12:14 [facility] [id number]) OT ADL-Oral Care General Eval Oral Care Ability Standby Assistance Comments Oral Care Comments Set-up assist and SBA while standing, pt tends to lean onto the counter for balance. Pt able to stand from 17,30, and 30 seconds for grooming needs and needing to have frequent rest breaks while sitting on BSC. OT ADL-Dressing Comments OT Dressing Comments Pt refuses to wear clothing or gown. OT ADL-Toileting General Evaluation Toileting Ability Total Assistance Areas Needing Assistance Perform Perineal Hygiene Devices Toileting Assistive Devices Commode Comments OT Toileting Comments Pt total assist for hygiene and care. Per nursing after urination due to pt has medicated cream lotion on to pat dry pt after urination. OT ADL-Bathing Comments OT Bathing Comments Pt states has walk in shower with no HHSP and that girlfriend assist him at home. M6 OT- IP Functional Cognition Start: 09/03/18 17:35 Freq: Status: Active Protocol: Document 09/07/18 12:04 [facility] (Rec: 09/07/18 12:14 [facility] [id number]) Cognitive Factors Limiting Selfcare Function Cognitive Ability Level of Alertness Alert Patient Orientation Name Place Situation Attention Span Ability Capable of Focused Attention Capable of Sustained Attention Unable to Sustain Attention Ability to Follow Commands Able to Follow One Step Commands Safety Awareness Underestimates Need for Assistance Cognitive Comments Cognitive Assessment Comments Pt is very impulsive and easily distracted and hard time to stay focused. Pt needs MOD vc to correctly follow theraband exercises while sitting and in bed. Pt tends to want to do it his way and needs cues to use the proper muscles. M7 OT- IP Mobility and Balance Start: 18 17:35 Freq: Status: Active Protocol: Document 09/07/18 12:04 [facility] (Rec: 09/07/18 12:14 [facility] [id number]) OT- Bed Mobility Assessment Rolling Type of Rolling Roll to Right Level of Assistance Standby Assistance Bedrails Supine to Sit Supine to Sit Assist Standby Assistance 1 Person Assistance Sit to Supine Sit to Supine Assist Moderate Assistance 1 Person Assistance OT-Transfer Assessment Sit to and From Stand Sit to and from Stand Standby Assistance 1 Person Assistance Transfers Transfer Ability Standby Assistance 1 Person Assistance Technique Transfer Destination Bed Bedside Commode Transfer Technique Stand Step Pivot Devices Transfer Assistive Devices Gait Belt Front Wheeled Walker Comments Mobility Comments Pt use of o2 today and dropped to 88% and need vc to take deep breaths in . Pt able to get O2 up to 96% after resting and deep breathing. OT- Balance Assessment Sitting Balance and Reactions Static Sitting Balance Ability Normal Dynamic Sitting Balance Ability Good Standing Balance and Reactions Static Standing Balance Ability Fair M8 OT- IP Objective Assessments Start: 09/03/18 17:35 Freq: Status: Active Protocol: Document 09/05/18 09:26 [facility] (Rec: 09/05/18 09:48 [facility] [id number]) OT Gross Range of Motion Upper Extremity Range of Motion Assessment Within Functional Limits OT Strength Comments Strength Comments BUE strength 4/5. M9 OT- IP Assessment and Plan Start: 09/03/18 17:35 Freq: Status: Active Protocol: Document 09/07/18 12:04 [facility] (Rec: 09/07/18 12:14 [facility] [id number]) OT Summary Assessment and Plan Potential Rehabilitation Potential Good Analytic Complexity at Evaluation Low Summary OT Impairments Strength Balance Functional Cognition Functional Mobility Grooming Dressing Toileting Bathing Toilet Transfers Shower Transfers Progress Towards Goals Slow Progress due to Medical Issues Slow Progress due to Activity Tolerance Slow Progress due to Cognition Assessment Summary Pt needing lots of encourage to participate in therapy however today able to stand for grooming needs with multiple rest breaks and encouragement. Pt would benefit from skilled rehab prior to going home. Goals Days to Meet Goals 5 Frequency of Treatment Frequency Of Treatment Once a Day Treatment Plan OT Treatment Plan ADL Training Functional Cognition Training Functional Mobility Therapeutic Exercises Patient/Family Education Discharge Planning Other Treatment Recommendations and Next check pt follow through with Treatment Focus theraband exercises. Discharge Recommendations OT Discharge Recommendations SNF Rehab
--- NOTE | 2018-09-07 14:11 | CM.DPC ---
DCP Cont: Reviewed chart. Spoke w/pt this afternoon, asked if he would consider SNF stay. Pt is sleepy but agrees with this PASTRY SUPERVISOR that SNF is needed, no facility preference. This PASTRY SUPERVISOR explained steps taken and additional steps needed to attempt SNF placement. TC to William at [facility] P# [phone]; asked if he had received referral ? He states no so this PASTRY SUPERVISOR faxed new clinical packet, awaiting CB to discuss referral. Still unknown what pt's Medicaid covers; this team may need to assist in the completion of the JODIE fdc care application and expedited JODIE assessment (?) Following closely. JOSÉ LUIS Palmer
--- NOTE | 2018-09-07 15:07 | PM.PN.1 ---
Subjective Date Patient Seen: 09/07/18 Interval history: Babatunde Fitzgerald is a 37-year-old male with a past medical history significant for asthma, anxiety, morbid obesity (BMI 79.5), obesity hypoventilation syndrome, RAJESH, chronic pain with methadone dependence, hypothyroidism, h/o nephrolithiasis (h/o basket retrieval and lithotripsy), recurrent sacral and perineal ulcers, and marijuana who is here for sacral pressure ulcer with pain. The patient is lying in bed comfortably and in no acute distress. He endorses a slight headache and buttock pain around his wounds. He also reports all over itching and requests medication for this. He otherwise denies vision changes, sore throat, shortness of breath, chest pain, abdominal pain, nausea, vomiting, fever, chills, dysuria, diarrhea or constipation. He is urinating and eliminating without difficulty. He has a good appetite and is able to eat his full meal. He is up ambulating with front wheeled walker and one-person standby assist. Exam Vital Signs (past 8 hours): - 09/07/18 07:25 09/07/18 09:15 09/07/18 10:00 Temperature 97.7 F Pulse Rate 101 H 101 H Respiratory Rate 20 16 Blood Pressure 114/64 Pulse Oximetry 93 95 95 09/07/18 11:37 09/07/18 12:00 09/07/18 14:57 Temperature 97.2 F L Pulse Rate 101 H 105 H Respiratory Rate 16 20 Blood Pressure 115/66 Pulse Oximetry 95 93 93 Fraction of Inspired Oxygen 21 Oxygen Delivery Method Room Air Oxygen Flow Rate 0 Const General: cooperative, comfortable and well developed Nutritional Appearance: obese (83.1) morbidly obese Orientation: alert, awake and oriented x3 [facility] Head: normocephalic and atraumatic Ears: hearing grossly normal bilaterally and external ears normal Nose: external nose normal Face and sinus: normal facial exam Mouth: oral mucosae normal Eyes Eyelids: eyelids normal Conjunctivae: conjunctivae normal Sclera: sclerae normal Pupils: PERRL EOM: EOM intact bilaterally Neck Neck: normal visual inspection, full ROM, supple, No lymphadenopathy and No JVD Thyroid: thyroid normal Chest Chest: normal inspection of the chest Resp Effort & Inspection: normal respiratory effort and able to speak in complete sentences Auscultation: clear to auscultation bilaterally (in anterior lung wade), no rales and no wheezes Cardio Rate: tachycardic Rhythm: regular rhythm Heart Sounds: S1 normal and S2 normal GI Inspection: normal to inspection, large pannus and obesity Palpation: soft and no hepatosplenomegaly Auscultation: normal bowel sounds General: bladder normal to palpation Other: superficial wounds on scrotum appear dry without exudate and healing well, posterior leg wounds not visualized Extrem General: no calf tenderness Other: + 3 pitting edema to knees bilaterally Objective Labs Result Diagrams: 09/07/18 05:40 09/06/18 05:45 Labs: Laboratory Results - last 24 hr 09/07/18 05:40 WBC 3.2 L RBC 3.96 L Hgb 10.2 L Hct 32.5 L MCV 82.0 MCH 25.8 L MCHC 31.5 RDW 16.3 H Plt Count 197 Neut % (Auto) 49.1 L Lymph % (Auto) 39.4 Towns % (Auto) 10.7 Eos % (Auto) 0.1 L Baso % (Auto) 0.7 Neut # (Auto) 1600 Assessment & Plan Plan: Assessment/Plan Narrative: 1. 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 Improving. - Continue bariatric bed and wound care nursing recommendations, specifically intra-dry between skin folds and avoidance of wet creams in folds. - Continue current antibiotics. 2. Asthma with acute exacerbation. Improving. - Continue duo nebs and taper off of steroids, currently prednisone 10 mg daily. 3. Obstructive sleep apnea and obesity hypoventilation syndrome, chronic. Stable. - Continue CPAP during naps and while sleeping. - Needs updated outpatient sleep study. 4. Acute on chronic anxiety. Well controlled and stable. - Continue home meds Duloxetine 30 mg daily and olanzapine 20 mg daily 6. Morbid obesity (BMI 83.1), chronic. Stable. - Continue physical therapy and encourage patient to be up and ambulating 3 times a day. 7. Chronic pain syndrome on methadone. Well controlled. - Continue methadone 95 mg daily, tramadol 100 mg twice daily, and gabapentin 300 mg 3 times daily. 8. Hypothyroidism, chronic. Stable. - Continue home meds. DVT prophylaxis: SubQ heparin Disposition: Patient likely to discharge to SNF versus home with home health. Quality VTE Deep Vein Thrombosis/Pulmonary Embolism Present on Admission: No
[2018-09-07] MEDS: diphenhydrAMINE 25 MG TABLET PO (17:20)
[2018-09-07] MEDS: ACETAMINOPHEN 325 MG TABLET 650 MG PO (17:27)
[2018-09-07] MEDS: NYSTATIN CREAM 30 GM 1 APPLIC TOP (22:00)
[2018-09-07] MEDS: MUPIROCIN 22 GM OINT 1 APPLIC TOP (22:01)
[2018-09-07] MEDS: OXYCODONE/ACETAMINOPHEN 5/325 TABLET 1 TAB PO (22:02)
--- NOTE | 2018-09-07 22:32 | PC.NURSE ---
patient is A&O x3, somewhat pleasant w/ staff but complaining about amount of snacks he is allowed on each shift. Per report at shift change wound care nurse changed course of treatment for wounds. However, no orders were placed by Kiersten to apply mineral oil to wounds and stop all creams. Dr. Moncada did however place new orders for wounds to place hyrdocolliod, zinc barrier cream and inter-dry to folds. Skin was cleansed w/ saline and patted dry. Zinc cream was placed to skin along w/ other ordered ointments and creams. Hydrocolloid was placed to bilat. sides of testicles over LRG. open wounds beds and inter-dry placed in folds. Patient will need another tube of Metronidazole as there was non left in drawer and non in night pharm. patient will also needs more inter-dry as well.
[2018-09-08] VITALS (12 sets, daily range): BP systolic 104–135; BP diastolic 62–70; PULSE 69–100; RESP 16–22; TEMP 36.6–37; O2SAT 91–97
[2018-09-08] MEDS: ALBUTEROL/IPRATROPIUM 3 ML AMPUL INH (07:29)
[2018-09-08] MEDS: FLUTICASONE/SALMETEROL 500/50 14 PUFF DISKUS INH (07:39)
--- NOTE | 2018-09-08 09:18 | PM.PN.1 ---
Subjective Date Patient Seen: 09/08/18 Interval history: Babatunde Fitzgerald is a 37-year-old male with a past medical history significant for asthma, anxiety, morbid obesity (BMI 83.1), obesity hypoventilation syndrome, RAJESH, chronic pain with methadone dependence, hypothyroidism, h/o nephrolithiasis (h/o basket retrieval and lithotripsy), recurrent sacral and perineal ulcers, and marijuana use who is here for sacral and scrotal pressure ulcerations with pain. The patient is resting in bed comfortably and in no acute distress. He continues to endorse pain in his sacral and scrotal region, as well as, generalized pruritus. He denies headache, vision changes, sore throat, chest pain, shortness of breath, abdominal pain, nausea, vomiting, fever, chills, dysuria, diarrhea or constipation. He has a healthy appetite. He is up ambulating with a forward wheeled walker and standby assist. A 12 system comprehensive review of systems was conducted with the patient and found to be negative except as above in the History of Present Illness. Exam Vital Signs (past 8 hours): - 09/08/18 01:21 09/08/18 04:21 09/08/18 05:24 Temperature 98.4 F 98.6 F Pulse Rate 84 69 Respiratory Rate 18 18 Blood Pressure 104/65 128/67 Pulse Oximetry 94 94 94 09/08/18 07:20 09/08/18 07:29 Temperature 98.1 F Pulse Rate 86 100 H Respiratory Rate 18 16 Blood Pressure 122/62 Pulse Oximetry 92 Fraction of Inspired Oxygen 21 Oxygen Delivery Method Room Air Oxygen Flow Rate 0 Narrative Exam Narrative: General: Young morbidly obese gentleman lying in bed and in no acute distress, well-developed, well-nourished, appropriately interactive. HEENT: Normocephalic, atraumatic. External ears without defect. Pupils equal, round, and reactive to light. Anicteric sclerae, moist conjunctivae, and no lid lag. Oropharynx free of erythema and cobble stoning with moist mucosa. Neck: Supple with full range of motion. No jugular venous distension. No bruits. No lymphadenopathy or thyromegaly. Cardiovascular: Regular rate and rhythm without murmurs, rubs, or gallops appreciated. Pulmonary: Clear to auscultation bilaterally without crackles, wheezes, or rhonchi. Normal respiratory effort with no use of accessory muscles. Abdomen: Bowel tones present. Soft, obese, nontender, nondistended. No hepatosplenomegaly or masses appreciated. Extremities: No clubbing or cyanosis. +3 pitting edema to knees bilaterally. Skin: Normal temperature, turgor, and texture; superficial wounds on scrotum and sacral region appear dry without exudate and healing well. Neurological: Cranial nerves grossly intact. Psychiatric: Normal mood and affect. Alert and oriented to person, place, and time. Objective Labs Result Diagrams: 09/07/18 05:40 09/06/18 05:45 Assessment & Plan Plan: Assessment/Plan Narrative: 1. 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 Improving. - Continue bariatric bed and wound care nursing recommendations, specifically intra-dry between skin folds and avoidance of wet creams in folds. - Continue current antibiotics. 2. Asthma with acute exacerbation resolved. Stable. - Continue duo nebs and slow taper over months of steroids, currently prednisone 10 mg daily. 3. Generalized pruritus, acute on chronic. Stable. - Ordered Benadryl 25 mg every 6 hours as needed for pruritus. 4. Obstructive sleep apnea and obesity hypoventilation syndrome, chronic. Stable. - Continue CPAP during naps and while sleeping. - Needs updated outpatient sleep study. 5. Acute on chronic anxiety. Well controlled and stable. - Continue home meds Duloxetine 30 mg daily and olanzapine 20 mg daily 6. Morbid obesity (BMI 83.1), chronic. Stable. - Continue physical therapy and encourage patient to be up and ambulating 3 times a day. 7. Chronic pain syndrome on methadone. Well controlled. - Continue methadone 95 mg daily, tramadol 100 mg twice daily, and gabapentin 300 mg 3 times daily. 8. Hypothyroidism, chronic. Stable. - Continue home meds. DVT prophylaxis: SubQ heparin. Quality VTE Deep Vein Thrombosis/Pulmonary Embolism Present on Admission: No
[2018-09-08] MEDS: GABAPENTIN 300 MG CAPSULE PO ×3 (09:30→22:31)
[2018-09-08] MEDS: OLANZapine ODT 10 MG TAB 20 MG PO (09:30)
[2018-09-08] MEDS: TRAMADOL 50 MG TABLET 100 MG PO ×2 (09:30→22:33)
[2018-09-08] MEDS: MUPIROCIN 22 GM OINT 1 APPLIC TOP (09:30)
[2018-09-08] MEDS: predniSONE 10 MG TABLET PO (09:30)
[2018-09-08] MEDS: DOXYCYCLINE HYCLATE 100 MG TABLET PO ×2 (09:30→22:31)
[2018-09-08] MEDS: DULOXETINE 30 MG CAPSULE PO (09:30)
[2018-09-08] MEDS: FLUCONAZOLE 100 MG TABLET 200 MG PO (09:30)
[2018-09-08] MEDS: METHADONE 10 MG TABLET 95 MG PO (09:30)
[2018-09-08] MEDS: NYSTATIN CREAM 30 GM 1 APPLIC TOP (09:30)
--- NOTE | 2018-09-08 11:07 | OT.IP.TRT ---
Current Diagnoses Morbid (severe) obesity due to excess calories (09/03/18) Opioid dependence, uncomplicated (09/03/18) Anxiety disorder, unspecified (09/03/18) Obstructive sleep apnea (adult) (pediatric) (09/03/18) Unspecified asthma with (acute) exacerbation (09/03/18) Unspecified asthma, uncomplicated (09/03/18) Cutaneous abscess of buttock (09/03/18) Cellulitis of buttock (09/03/18) Local infection of the skin and subcutaneous tissue, unspecified (09/03/18) Pressure ulcer of unspecified buttock, stage 2 (09/03/18) Pressure ulcer of unspecified buttock, unspecified stage (09/03/18) Pressure ulcer of unspecified site, unspecified stage (09/03/18) Inflammatory disorders of scrotum (09/03/18) Occupational Therapy Treatment Note M2 OT-IP Current Condition Start: 09/03/18 17:35 Freq: Status: Active Protocol: Document 09/05/18 09:26 [facility] (Rec: 09/05/18 09:48 [facility] [id number]) Occupational Therapy Current Condition Current Condition Evaluation Date 09/05/18 Treatment Diagnosis Rectal Bleeding, perineal wounds Diagnosis Onset Date 09/03/18 Post Operative Precautions Other Precautions wounds to rectum and scrotum M3 OT- IP Subjective and Pain Start: 09/03/18 17:35 Freq: Status: Active Protocol: Document 09/08/18 11:07 [facility] (Rec: 09/08/18 16:38 [facility] [id number]) OT- Subjective Occupational Therapy Visit Type Type Treatment Note Visit Start Time 10:40 Visit Stop Time 11:07 Total Visit Minutes 27 Notes Partial co tx with P.T. for functional mobility in room with FWW. Occupational Therapy Visit Comments Patient Comments I don't wear any clothes at home. Patient/Caregiver Goals to go home OT Pain Assessment Pain When Pain Assessed After Treatment Pain Present Pain Present Denied Pain M4 OT- IP ADL's Start: 09/03/18 17:35 Freq: Status: Active Protocol: Document 09/08/18 11:07 PJM (Rec: 09/08/18 16:38 PJM [id number]) OT [id number] General Evaluation Self-Feeding Ability Independent OT ADL-Grooming General Evaluation Grooming Ability Standby Assistance Areas Needing Assistance Combing/Brushing Hair Face Washing Comments OT Grooming Comments Pt stood at sink for 2 min today. OT ADL-Oral Care General Eval Oral Care Ability Standby Assistance Areas of Assistance Brushing Teeth Devices Oral Care Devices Toothbrush Comments Oral Care Comments Pt stood at sink for 2 min today. OT ADL-Dressing Comments OT Dressing Comments Pt states he is usually nude at home. He does not wear socks when he does dress to leave home. He declines to dress in gown or clothes from home while here. OT ADL-Toileting General Evaluation Toileting Ability Total Assistance Devices Toileting Assistive Devices Toilet Paper Aid Comments OT Toileting Comments Pt unable to use adaptive toileting aids at present due to open areas in perineal area. Provided education re: types of toilet paper aids and resources to be used once wounds heal. Pt sat on disposable pad to dry self after urinating today. Pt needs total assistance for sarah care after bowel movement at present. OT ADL-Bathing Devices Bathing Equipment Hand Held Shower Sprayer Comments OT Bathing Comments Strongly recommend pt obtain hand held shower hose to assist with cleaning perineal area in shower at home. M6 OT- IP Functional Cognition Start: 09/03/18 17:35 Freq: Status: Active Protocol: Document 09/08/18 11:07 PJM (Rec: 09/08/18 16:38 PJ [id number]) Cognitive Factors Limiting Selfcare Function Cognitive Ability Level of Alertness Alert Attention Span Ability Capable of Focused Attention Ability to Follow Commands Able to Follow One Step Commands Cognitive Comments Cognitive Assessment Comments Pt has decreased insight into current medical situation and wound care needs. Decreased attention to tasks and fair thoroughness noted during self care tasks. M7 OT- IP Mobility and Balance Start: 09/03/18 17:35 Freq: Status: Active Protocol: Document 09/08/18 11:07 PJM (Rec: 09/08/18 16:38 [facility] [id number]) OT- Bed Mobility Assessment Sit to Supine Sit to Supine Assist Minimal Assistance Scooting Scooting Up and Down in Bed Standby Assistance Head of Bed Elevated OT-Transfer Assessment Sit to and From Stand Sit to and from Stand Standby Assistance Transfers Transfer Ability Standby Assistance Moderate Assistance Technique Transfer Destination Bed Bedside Commode Transfer Technique Stand Step Pivot Devices Transfer Assistive Devices Front Wheeled Walker Comments Mobility Comments Pt using overhead trapeze in bariatric bed to assist with bed mobility. Note pt sleeps in recliner at home. Pt needed mod assist to get LLE onto bed. Pt able to get R leg up onto bed with SBA. Pt completed bed to BSC transfer with SBA with bariatric FWW. OT- Gait Assessment Gait Gait Assistance Required: Standby Assistance Distance (Feet) 25 Assistive Devices Assistive Device Front Wheeled Walker Comments Gait Ability Comments see P.T. notes, pt on 2L O2 for activity with SOB noted; O2 sats 89-94 with cues for pursed lip breathing. OT- Balance Assessment Sitting Balance and Reactions Static Sitting Balance Ability Good Dynamic Sitting Balance Ability Fair Standing Balance and Reactions Static Standing Balance Ability Good M8 OT- IP Objective Assessments Start: 09/03/18 17:35 Freq: Status: Active Protocol: Document 09/05/18 09:26 [facility] (Rec: 09/05/18 09:48 [facility] [id number]) OT Gross Range of Motion Upper Extremity Range of Motion Assessment Within Functional Limits OT Strength Comments Strength Comments BUE strength 4/5. M9 OT- IP Assessment and Plan Start: 09/03/18 17:35 Freq: Status: Active Protocol: Document 09/08/18 11:07 PJM (Rec: 09/08/18 16:38 [facility] [id number]) OT Summary Assessment and Plan Summary Progress Towards Goals Slow Progress due to Medical Issues Assessment Summary Pt demonstrating increased activity tolerance with increased standing time at sink and increased functional mobility with FWW in room today. Pt SBA for grooming at sink today. He declines to wear clothes here and states he is usually nude at home. Pt declined further education re : BUE theraband exercises as he states he is familiar with them from previous use. Plan 1 additional OT visit here for further education re: adaptive equipment to maximize pt's independence with basic self care. Note that will be unable to complete sarah care with toilet paper aid until wounds are completely healed. Pt has significantly decreased insight into current medical situation and wound care needs . Recommend SNF at d/c for wound care and further rehab to increase strength, activity tolerance and functional mobility prior to return home where he is alone during day. Goals Days to Meet Goals 1 Frequency of Treatment Frequency Of Treatment Once a Day Treatment Plan OT Treatment Plan ADL Training Functional Mobility Patient/Family Education Other Treatment Recommendations and Next Discharge Recommendations OT Discharge Recommendations SNF Rehab
--- NOTE | 2018-09-08 11:24 | PT.IPTN ---
Current Diagnoses Morbid (severe) obesity due to excess calories (09/03/18) Opioid dependence, uncomplicated (09/03/18) Anxiety disorder, unspecified (09/03/18) Obstructive sleep apnea (adult) (pediatric) (09/03/18) Unspecified asthma with (acute) exacerbation (09/03/18) Unspecified asthma, uncomplicated (09/03/18) Cutaneous abscess of buttock (09/03/18) Cellulitis of buttock (09/03/18) Local infection of the skin and subcutaneous tissue, unspecified (09/03/18) Pressure ulcer of unspecified buttock, stage 2 (09/03/18) Pressure ulcer of unspecified buttock, unspecified stage (09/03/18) Pressure ulcer of unspecified site, unspecified stage (09/03/18) Inflammatory disorders of scrotum (09/03/18) Physical Therapy Treatment Note M2 PT-IP Current Condition Start: 09/03/18 16:01 Freq: NEEDED Status: Active Protocol: Document 09/04/18 12:50 [facility] (Rec: 09/04/18 14:15 [facility] [id number]) Physical Therapy Current Condition Current Condition Evaluation Date 09/04/18 Treatment Diagnosis rectal bleeding, impaired activity tolerance Precautions Other Precautions wounds to rectum and scrotum M3 PT-IP Subjective Start: 09/03/18 16:01 Freq: NEEDED Status: Active Protocol: Document 09/08/18 11:14 SA (Rec: 09/08/18 11:24 [facility] [id number]) Subjective Physical Therapy Visit Type Type Treatment Note Visit Start Time 10:30 Visit Stop Time 11:00 Total Visit Minutes 30 Notes Partial co-tx with OT, pt agreeable to work and pre-set time. Number of SECURITY SCREENER Visits 4 Physical Therapy Visit Comments Patient Comments Pt reports his backside hurting. Patient Goals Pt states today that he is agreeable to go to a SNF. Therapy Pain Assessment Pain When Pain Assessed At Rest Pain Present Pain Present Pain Reported Location bottom/scrotum Intensity 3 Scale Used Numeric (1 - 10) Pain Management Techniques Modification of Treatment Re-positioning M4 PT-IP Mobility and Gait Start: 09/03/18 16:01 Freq: NEEDED Status: Active Protocol: Document 09/08/18 11:14 SA (Rec: 09/08/18 11:24 SA [id number]) PT-Bed Mobility Assessment Rolling Type of Rolling Roll to Left Level of Assist Standby Assistance Supine to Sit Supine to Sit Independent Bedrails Sit to Supine Sit to Supine Moderate Assistance 1 Person Assistance Scooting Scooting to Edge of Bed Standby Assistance Scooting Up and Down in Bed Standby Assistance PT-Transfer Assessment Sit to and From Stand Sit to and from Stand Standby Assistance Equipment Transfer Assistive Device Gait Belt Front Wheeled Walker Transfers Transfer Destination Bed Bedside Commode Transfer Technique Stand Step Pivot Transfer Ability Level of Assist Standby Assistance Comments Mobility Comments Pt with improved standing tolerance today. Stood at sink for self care tasks for 1 + 2 + 1 minute with forward leanaing on counter, when cued to try standing up straighter , pt declined. Able to brush teeth and wash face with CGA and min cues in standing and with set up. Gait Assessment Gait Gait Assistance Required: Standby Assistance Distance (Feet) 25 Assistive Devices Assistive Device Gait Belt Front Wheeled Walker Gait Deviations General Gait Pattern Decreased Stride Length Flexed Trunk Wide Based Gait Factors Limiting Gait Function Factors Limiting Gait Function Decreased Activity Tolerance Difficulty Following Directions Poor Safety Awareness Comments Gait Comments Pt amb from EOB>sink> window and back to bed. On 2L of 02 with activity and sats 89-94% with cues for PLB. PT-Balance Assessment Comments Other Balance Tests/Deviations/Treatment Static balance training/ : balance tolerance. Education for increasing activity to improve functional mobility and allow off weighting of backside. M5 PT-IP Objective Assessments Start: 09/03/18 16:01 Freq: NEEDED Status: Active Protocol: Document 09/04/18 12:50 [facility] (Rec: 09/04/18 14:15 [facility] [id number]) Orientation Orientation/Cognition Level of Alertness Alert Language Function Ability No Deficits Noted Strength Comments Strength Comments hip flexion at least 3/5 but unable to lift BLEs without assistance back to bed Coordination Assessment Gross Coordination Gross Coordination WNL M6 PT-IP Treatment Start: 09/03/18 16:01 Freq: NEEDED Status: Active Protocol: Document 09/08/18 11:14 SA (Rec: 09/08/18 11:24 SA [id number]) Physical Therapy Treatment Exercises Exercises Ankle Pumps Heel Slides Education Education Provided Safety M7 PT-IP Assessment and Plan Start: 09/03/18 16:01 Freq: NEEDED Status: Active Protocol: Document 09/08/18 11:14 SA (Rec: 09/08/18 11:24 [id number]) PT Summary Assessment and Plan Potential Rehabilitation Potential Good Status of Condition at Evaluation Stable Summary Assessment Summary Improving gait and standing tolerance. 2L of 02 with treatment. Pt states he is agreeable to go to SNF for further therapy which contradicts what he has said previously. Frequency of Treatment Frequency Of Treatment Once a Day Recommendations To Nursing Amount of Assist Needed 1 Person Assist Discharge Recommendations PT Discharge Recommendations Home with Assistance Home Health SNF Rehab Other Discharge Recommendations Pt may be agreeable to SNF if placement available.
[2018-09-08] MEDS: diphenhydrAMINE 25 MG TABLET PO (13:09)
--- NOTE | 2018-09-08 15:53 | CM.DPC ---
Addendum entered by JOSÉ LUIS Palmer 09/09/18 16:58: Discussed, w/pt, changing his Medicaid plan to a managed one (?) Pt agreeable to this if it would help DCP. Requested Domi al/admission team to discuss this w/ pt. Email: Dean Delgadillo, I went up to see this patient about an hour ago. He was sleeping and the nurse didn?t want me to disturb him. Also, he is on contact precautions. The nurse said it was okay that I call him so I did just now giving him some time to sleep first. He has a visitor right now and does not want to perform the application at this time. I?m only here for another hour and then won?t be back in until next , September 15. Will he still be admitted at that time? We will have someone here on Wednesday and then Wednesday of next week that could possibly help sign him up. Thank you, Domi Also attempted to contact Isaiah Amin/ the [facility], I left her a msg requesting help in this DCP. Her VM indicated she would return to work September 26. This CURING OV[employer] ATTENDANT wonders if it would be helpful to contact pt's mom or grand parents over the next week to ask for family conference and review pt's home setting, assist in JODIE application, and review how pt might be more successful if inevitably DC home ? ? Following closely. Hospitalist understands barriers in securing a safe DCP for pt. Original Note: Addendum entered by JOSÉ LUIS Palmer 09/09/18 09:32: Jenae [facility] Home: No, no bariatric equipment Original Note: DCP Cont: SNF search continues- [facility]- [facility], no bariatric bed [facility]- No, they accept bc patients but are at capacity at this time for accommodating pt's size [facility]- No, facility too small, they accept no bc patients at all Also faxed [facility], [facility] and [facility], awaiting CB. Emailed admission group here at re: pt's ability to sign up for [employer]/Medicaid managed plan ? This might provide addtl. reimbursement options (for SNFs) and case management support to pt and this DC planning team. Tasks: Discuss switching to a managed medicaid plan w/pt and/or DPOA (?) and contact Isaiah Amin at [facility], hopefully Wednesday, before the long holiday weekend. Following closely. JOSÉ LUIS Palmer
[2018-09-08] MEDS: OXYCODONE/ACETAMINOPHEN 5/325 TABLET 1 TAB PO (17:51)
[2018-09-09] VITALS (13 sets, daily range): BP systolic 116–130; BP diastolic 65–72; PULSE 72–94; RESP 18–20; TEMP 36.4–36.8; O2SAT 90–97
--- NOTE | 2018-09-09 05:19 | PC.NURSE ---
Pt is A and O x 4, VSS. No additional skin wounds noted. Pt generally compliant with food restriction. Pt requested CPAP use middle of shift, sats = 93-95%. Pt is using BSC but making little effort to ensure urine completely makes it into the bucket. LS = inspir and exp wheezes. No request for pain medication so far this shift.
[2018-09-09] MEDS: NYSTATIN POWDER 30 GM 1 APPLIC TOP (09:07)
[2018-09-09] MEDS: FLUCONAZOLE 100 MG TABLET 200 MG PO (09:08)
[2018-09-09] MEDS: DOXYCYCLINE HYCLATE 100 MG TABLET PO ×2 (09:08→20:31)
[2018-09-09] MEDS: METHADONE 10 MG TABLET 95 MG PO (09:08)
[2018-09-09] MEDS: TRAMADOL 50 MG TABLET 100 MG PO ×2 (09:08→20:31)
[2018-09-09] MEDS: OLANZapine ODT 10 MG TAB 20 MG PO (09:09)
[2018-09-09] MEDS: GABAPENTIN 300 MG CAPSULE PO ×3 (09:09→20:31)
[2018-09-09] MEDS: predniSONE 10 MG TABLET PO (09:09)
[2018-09-09] MEDS: DULOXETINE 30 MG CAPSULE PO (09:09)
[2018-09-09] MEDS: ALBUTEROL/IPRATROPIUM 3 ML AMPUL INH (09:30)
--- NOTE | 2018-09-09 10:28 | OT.IP.TRT ---
Current Diagnoses Morbid (severe) obesity due to excess calories (09/03/18) Opioid dependence, uncomplicated (09/03/18) Anxiety disorder, unspecified (09/03/18) Obstructive sleep apnea (adult) (pediatric) (09/03/18) Unspecified asthma with (acute) exacerbation (09/03/18) Unspecified asthma, uncomplicated (09/03/18) Cutaneous abscess of buttock (09/03/18) Cellulitis of buttock (09/03/18) Local infection of the skin and subcutaneous tissue, unspecified (09/03/18) Pressure ulcer of unspecified buttock, stage 2 (09/03/18) Pressure ulcer of unspecified buttock, unspecified stage (09/03/18) Pressure ulcer of unspecified site, unspecified stage (09/03/18) Inflammatory disorders of scrotum (09/03/18) Occupational Therapy Treatment Note M2 OT-IP Current Condition Start: 09/03/18 17:35 Freq: Status: Active Protocol: Document 09/05/18 09:26 [facility] (Rec: 09/05/18 09:48 [facility] [id number]) Occupational Therapy Current Condition Current Condition Evaluation Date 09/05/18 Treatment Diagnosis sacral and scrotal wounds Diagnosis Onset Date 09/03/18 Post Operative Precautions Other Precautions wounds to rectum and scrotum M3 OT- IP Subjective and Pain Start: 09/03/18 17:35 Freq: Status: Active Protocol: Document 09/09/18 10:28 PJM (Rec: 09/09/18 15:47 PJM [id number]) OT- Subjective Occupational Therapy Visit Type Type Treatment Note Visit Start Time 10:16 Visit Stop Time 10:28 Total Visit Minutes 12 Notes Pt drowsy in bed when therapist arrived. Occupational Therapy Visit Comments Patient/Caregiver Goals to go home when wounds healed OT Pain Assessment Pain When Pain Assessed After Treatment Pain Present Pain Present Denied Pain M4 OT- IP ADL's Start: 09/03/18 17:35 Freq: Status: Active Protocol: Document 09/09/18 10:28 PJM (Rec: 09/09/18 15:47 PJM [id number]) OT [id number]-[id number] General Evaluation Self-Feeding Ability Independent OT ADL-Grooming General Evaluation Grooming Ability Independent Comments OT Grooming Comments after all items within reach seated or standing at sink OT ADL-Dressing Assistive Devices Dressing Assistive Devices Long Handled Shoe Horn Range Rider Comments OT Dressing Comments Range Rider and long shoe horn provided and pt verbalizes understanding of their use. He declines to dress here and prefers to be nude. OT ADL-Toileting General Evaluation Toileting Ability Total Assistance Devices Toileting Assistive Devices Toilet Paper Aid Comments OT Toileting Comments Provided written information re: multiple types of toilet paper aids and resources for obtaining them. Also recommend hand held shower hose to assist with sarah care in shower. Provided long bath sponge. M6 OT- IP Functional Cognition Start: 09/03/18 17:35 Freq: Status: Active Protocol: Document 09/08/18 11:07 PJM (Rec: 09/08/18 16:38 PJM [id number]) Cognitive Factors Limiting Selfcare Function Cognitive Ability Level of Alertness Alert Attention Span Ability Capable of Focused Attention Ability to Follow Commands Able to Follow One Step Commands Cognitive Comments Cognitive Assessment Comments Pt has decreased insight into current medical situation and wound care needs. Decreased attention to tasks and fair thoroughness noted during self care tasks. M7 OT- IP Mobility and Balance Start: 09/03/18 17:35 Freq: Status: Active Protocol: Document 09/08/18 11:07 PJM (Rec: 09/08/18 16:38 PJM [id number]) OT- Bed Mobility Assessment Sit to Supine Sit to Supine Assist Minimal Assistance Scooting Scooting Up and Down in Bed Standby Assistance Head of Bed Elevated OT-Transfer Assessment Sit to and From Stand Sit to and from Stand Standby Assistance Transfers Transfer Ability Standby Assistance Moderate Assistance Technique Transfer Destination Bed Bedside Commode Transfer Technique Stand Step Pivot Devices Transfer Assistive Devices Front Wheeled Walker Comments Mobility Comments Pt using overhead trapeze in bariatric bed to assist with bed mobility. Note pt sleeps in recliner at home. Pt needed mod assist to get LLE onto bed. Pt able to get R leg up onto bed with SBA. Pt completed bed to BSC transfer with SBA with bariatric FWW. OT- Gait Assessment Gait Gait Assistance Required: Standby Assistance Distance (Feet) 25 Assistive Devices Assistive Device Front Wheeled Walker Comments Gait Ability Comments see P.T. notes, pt on 2L O2 for activity with SOB noted; O2 sats 89-94 with cues for pursed lip breathing. OT- Balance Assessment Sitting Balance and Reactions Static Sitting Balance Ability Good Dynamic Sitting Balance Ability Fair Standing Balance and Reactions Static Standing Balance Ability Good M8 OT- IP Objective Assessments Start: 09/03/18 17:35 Freq: Status: Active Protocol: Document 09/05/18 09:26 CCC (Rec: 09/05/18 09:48 CCC [email or web address]) OT Gross Range of Motion Upper Extremity Range of Motion Assessment Within Functional Limits OT Strength Comments Strength Comments BUE strength 4/5. M9 OT- IP Assessment and Plan Start: 09/03/18 17:35 Freq: Status: Active Protocol: Document 09/09/18 10:28 PJM (Rec: 09/09/18 15:47 PJM [id number]) OT Summary Assessment and Plan Summary Progress Towards Goals Goals Met Assessment Summary All acute care OT goals achieved for this admission. Per chart notes, d/c plan is SNF for wound care. Recommend OT tx resume when pt's wounds healed and he can participate in training with toilet paper aid and dressing with adaptive equipment. Frequency of Treatment Frequency Of Treatment Discharge Discharge Recommendations OT Discharge Recommendations SNF Rehab Home Equipment Needs strongly recommend pt obtain toilet paper aid and hand held shower hose to assist with perineal hygiene at home once wounds healed
[2018-09-09] MEDS: diphenhydrAMINE 25 MG TABLET PO ×2 (11:25→17:49)
--- NOTE | 2018-09-09 11:45 | PT.IPTN ---
Current Diagnoses Morbid (severe) obesity due to excess calories (09/03/18) Opioid dependence, uncomplicated (09/03/18) Anxiety disorder, unspecified (09/03/18) Obstructive sleep apnea (adult) (pediatric) (09/03/18) Unspecified asthma with (acute) exacerbation (09/03/18) Unspecified asthma, uncomplicated (09/03/18) Cutaneous abscess of buttock (09/03/18) Cellulitis of buttock (09/03/18) Local infection of the skin and subcutaneous tissue, unspecified (09/03/18) Pressure ulcer of unspecified buttock, stage 2 (09/03/18) Pressure ulcer of unspecified buttock, unspecified stage (09/03/18) Pressure ulcer of unspecified site, unspecified stage (09/03/18) Inflammatory disorders of scrotum (09/03/18) Physical Therapy Treatment Note M2 PT-IP Current Condition Start: 09/03/18 16:01 Freq: NEEDED Status: Active Protocol: Document 09/04/18 12:50 RCC (Rec: 09/04/18 14:15 [facility] [id number]) Physical Therapy Current Condition Current Condition Evaluation Date 09/04/18 Treatment Diagnosis rectal bleeding, impaired activity tolerance Precautions Other Precautions wounds to rectum and scrotum M3 PT-IP Subjective Start: 09/03/18 16:01 Freq: NEEDED Status: Active Protocol: Document 09/09/18 11:45 GGD (Rec: 09/09/18 12:10 GGD [email or web address]) Subjective Physical Therapy Visit Type Type Treatment Note Visit Start Time 11:25 Visit Stop Time 11:45 Total Visit Minutes 20 Number of INTAKE CLERK Visits 5 Physical Therapy Visit Comments Patient Comments Pt states that he needs to use the bathroom. Therapy Pain Assessment Pain When Pain Assessed At Rest Pain Present Pain Present Pain Reported M4 PT-IP Mobility and Gait Start: 09/03/18 16:01 Freq: NEEDED Status: Active Protocol: Document 09/09/18 11:45 GGD (Rec: 09/09/18 12:10 GGD [email or web address]) PT-Bed Mobility Assessment Supine to Sit Supine to Sit Independent Bedrails Sit to Supine Sit to Supine Contact Guard Assistance Scooting Scooting to Edge of Bed Standby Assistance Scooting Up and Down in Bed Standby Assistance PT-Transfer Assessment Sit to and From Stand Sit to and from Stand Standby Assistance Equipment Transfer Assistive Device Front Wheeled Walker Transfers Transfer Destination Bed Bedside Commode Transfer Technique Stand Step Pivot Transfer Ability Level of Assist Standby Assistance Gait Assessment Gait Gait Assistance Required: Standby Assistance Distance (Feet) 5 Assistive Devices Assistive Device Front Wheeled Walker Orthotic/Prosthetic Devices or Brace: No Factors Limiting Gait Function Factors Limiting Gait Function Decreased Activity Tolerance Decreased Strength Poor Safety Awareness M5 PT-IP Objective Assessments Start: 09/03/18 16:01 Freq: NEEDED Status: Active Protocol: Document 09/04/18 12:50 RCC (Rec: 09/04/18 14:15 RCC [id number]) Orientation Orientation/Cognition Level of Alertness Alert Language Function Ability No Deficits Noted Strength Comments Strength Comments hip flexion at least 3/5 but unable to lift BLEs without assistance back to bed Coordination Assessment Gross Coordination Gross Coordination WNL M6 PT-IP Treatment Start: 09/03/18 16:01 Freq: NEEDED Status: Active Protocol: Document 09/08/18 11:14 SA (Rec: 09/08/18 11:24 SA [id number]) Physical Therapy Treatment Exercises Exercises Ankle Pumps Heel Slides Education Education Provided Safety M7 PT-IP Assessment and Plan Start: 09/03/18 16:01 Freq: NEEDED Status: Active Protocol: Document 09/09/18 11:45 GGD (Rec: 09/09/18 12:10 GGD [email or web address]) PT Summary Assessment and Plan Summary Assessment Summary Pt needed less assist with bed mobility. He was safe with transfer to and from [facility]. Will need to asses mobility with 4WW. Frequency of Treatment Frequency Of Treatment Once a Day Recommendations To Nursing Amount of Assist Needed 1 Person Assist Discharge Recommendations PT Discharge Recommendations Home with Assistance Home Health SNF Rehab
[2018-09-09] MEDS: ALBUTEROL HFA 60 PUFF/8 GM INH INH (16:54)
[2018-09-09] MEDS: FLUTICASONE/SALMETEROL 500/50 14 PUFF DISKUS INH (16:55)
[2018-09-09] MEDS: OXYCODONE/ACETAMINOPHEN 5/325 TABLET 1 TAB PO (17:49)
--- NOTE | 2018-09-09 21:48 | PM.PN.1 ---
Subjective Date Patient Seen: 09/09/18 Interval history: Interval history: Babatunde Fitzgerald is a 37-year-old male with a past medical history significant for asthma, anxiety, morbid obesity (BMI 83.1), obesity hypoventilation syndrome, RAJESH, chronic pain with methadone dependence, hypothyroidism, h/o nephrolithiasis (h/o basket retrieval and lithotripsy), recurrent sacral and perineal ulcers, and marijuana use who is here for sacral and scrotal pressure ulcerations with pain. The patient is resting in bed comfortably and in no acute distress. He continues to endorse pain in his sacral and scrotal region. He denies headache, vision changes, sore throat, chest pain, shortness of breath, abdominal pain, nausea, vomiting, fever, chills, dysuria, diarrhea or constipation. He has a healthy appetite and requests more snacks in between meals. Discussed his nutrition and weight loss in detail for which the patient has very poor insight into his disease process. He is up ambulating with a forward wheeled walker and standby assist. Exam Vital Signs (past 8 hours): - 09/09/18 13:53 09/09/18 14:00 09/09/18 15:03 Temperature 98.2 F Pulse Rate 87 Respiratory Rate 20 Blood Pressure 130/67 Pulse Oximetry 97 93 93 09/09/18 15:50 09/09/18 17:00 09/09/18 19:50 Temperature 98.2 F 97.6 F Pulse Rate 72 76 87 Respiratory Rate 20 18 19 Blood Pressure 128/66 119/65 Pulse Oximetry 93 95 90 L Fraction of Inspired Oxygen 21 Oxygen Delivery Method Room Air Oxygen Flow Rate 0 Narrative Exam Narrative: General: Young morbidly obese gentleman lying in bed and in no acute distress, well-developed, well-nourished, appropriately interactive. HEENT: Normocephalic, atraumatic. External ears without defect. Pupils equal, round, and reactive to light. Anicteric sclerae, moist conjunctivae, and no lid lag. Oropharynx free of erythema and cobble stoning with moist mucosa. Neck: Supple with full range of motion. No jugular venous distension. No bruits. No lymphadenopathy or thyromegaly. Cardiovascular: Regular rate and rhythm without murmurs, rubs, or gallops appreciated. Pulmonary: Clear to auscultation bilaterally without crackles, wheezes, or rhonchi. Normal respiratory effort with no use of accessory muscles. Abdomen: Bowel tones present. Soft, obese, nontender, nondistended. No hepatosplenomegaly or masses appreciated. Extremities: No clubbing or cyanosis. +3 pitting edema to knees bilaterally. Skin: Normal temperature, turgor, and texture; superficial wounds on scrotum and sacral region appear dry without exudate and healing well. Neurological: Cranial nerves grossly intact. Psychiatric: Normal mood and affect. Alert and oriented to person, place, and time. Poor insight into disease process Objective Labs Result Diagrams: 09/07/18 05:40 09/06/18 05:45 Assessment & Plan Plan: Assessment/Plan Narrative: Plan: Assessment/Plan Narrative: 1. 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 Improving. - Continue bariatric bed and wound care nursing recommendations, specifically intra-dry between skin folds and avoidance of wet creams in folds. - Continue current antibiotics. 2. Asthma with acute exacerbation resolved. Stable. - Continue duo nebs and slow taper over months of steroids, currently prednisone 10 mg daily. 3. Generalized pruritus, acute on chronic. Stable. - Ordered Benadryl 25 mg every 6 hours as needed for pruritus. 4. Obstructive sleep apnea and obesity hypoventilation syndrome, chronic. Stable. - Continue CPAP during naps and while sleeping. - Needs updated outpatient sleep study. 5. Acute on chronic anxiety. Well controlled and stable. - Continue home meds Duloxetine 30 mg daily and olanzapine 20 mg daily 6. Morbid obesity (BMI 83.1), chronic. Stable. - Continue physical therapy and encourage patient to be up and ambulating 3 times a day. 7. Chronic pain syndrome on methadone. Well controlled. - Continue methadone 95 mg daily, tramadol 100 mg twice daily, and gabapentin 300 mg 3 times daily. 8. Hypothyroidism, chronic. Stable. - Continue home meds. DVT prophylaxis: SubQ heparin. Disposition: Having difficulty with placement for [place] [facility] due to current insurance. Patient likely to be here at least 3-5 days for wound care and healing. Quality VTE Deep Vein Thrombosis/Pulmonary Embolism Present on Admission: No
[2018-09-10] VITALS (8 sets, daily range): BP systolic 112–134; BP diastolic 61–70; PULSE 78–94; RESP 16–24; TEMP 36.6–37; O2SAT 93–98
[2018-09-10] MEDS: diphenhydrAMINE 25 MG TABLET PO ×3 (00:28→20:54)
[2018-09-10] MEDS: OXYCODONE/ACETAMINOPHEN 5/325 TABLET 1 TAB PO ×3 (00:30→20:54)
[2018-09-10 06:36] LABS: Add Manual Diff / Slide Review NO; Basophils Percent Auto 0.6 % (0-2); Eosinophils Percent Auto 0.2 % (2-4); Hematocrit 34.9 % (41-53); Lymphocytes Percent Auto 43.7 % (25-40); Mean Corpuscular HGB Conc 31.5 % (30-36); Mean Corpuscular Hemoglobin 25.8 PG (26-34); Mean Corpuscular Volume 81.9 fL (80-100); Monocytes Percent Auto 11.3 % (3-14); Neutrophils Absolute Auto 1900 /uL (1500-7000); Neutrophils Percent Auto 44.2 % (50-75); Platelet Count 148 X10^3/uL (150-400); Red Blood Cell Count 4.27 X10^6/uL (4.5-5.9); Red Cell Distribution Width 16.8 % (11.6-14.8); White Blood Cell Count 4.2 X10^3/uL (4.5-11.0)
[2018-09-10 06:37] LABS: Alanine Aminotransferase 19 IU/L (21-72); Albumin 3.1 g/dL (3.5-5.0); Albumin Globulin Ratio 0.9 (1.0-2.8); Alkaline Phosphatase 70 U/L (38-126); Aspartate Aminotransferase 18 IU/L (17-59); BUN Creatinine Ratio 12.5 (6-22); Bilirubin Total 0.2 mg/dL (0.2-1.3); Blood Urea Nitrogen 10 mg/dL (9-20); Calcium 8.4 mg/dL (8.4-10.2); Carbon Dioxide 36 mmol/L (22-32); Chloride 97 mmol/L (98-107); Estimated Glomerular Filt Rate > 60.0 mL/min (>60); Globulin 3.4 g/dL (1.7-4.1); Glucose 72 mg/dL (70-100); HEMOLYSIS < 15 (0-50); Magnesium 2.3 mg/dL (1.6-2.3); Potassium 4.3 mmol/L (3.4-5.1); Sodium 140 mmol/L (137-145); Total Protein 6.5 g/dL (6.3-8.2)
[2018-09-10 07:56] LABS: Procalcitonin < 0.05 ng/mL (<0.5)
[2018-09-10] MEDS: predniSONE 10 MG TABLET PO (08:25)
[2018-09-10] MEDS: TRAMADOL 50 MG TABLET 100 MG PO (08:26)
[2018-09-10] MEDS: DULOXETINE 30 MG CAPSULE PO (08:26)
[2018-09-10] MEDS: OLANZapine ODT 10 MG TAB 20 MG PO (08:26)
[2018-09-10] MEDS: DOXYCYCLINE HYCLATE 100 MG TABLET PO ×2 (08:26→20:55)
[2018-09-10] MEDS: GABAPENTIN 300 MG CAPSULE PO ×3 (08:26→20:54)
[2018-09-10] MEDS: METHADONE 10 MG TABLET 95 MG PO (08:27)
[2018-09-10] MEDS: FLUCONAZOLE 100 MG TABLET 200 MG PO (08:28)
[2018-09-10] MEDS: FLUTICASONE/SALMETEROL 500/50 14 PUFF DISKUS INH (10:06)
[2018-09-10] MEDS: ALBUTEROL/IPRATROPIUM 3 ML AMPUL INH ×2 (10:07→15:51)
--- NOTE | 2018-09-10 11:33 | PT.IPTN ---
Current Diagnoses Morbid (severe) obesity due to excess calories (09/03/18) Opioid dependence, uncomplicated (09/03/18) Anxiety disorder, unspecified (09/03/18) Obstructive sleep apnea (adult) (pediatric) (09/03/18) Unspecified asthma with (acute) exacerbation (09/03/18) Unspecified asthma, uncomplicated (09/03/18) Cutaneous abscess of buttock (09/03/18) Cellulitis of buttock (09/03/18) Local infection of the skin and subcutaneous tissue, unspecified (09/03/18) Pressure ulcer of unspecified buttock, stage 2 (09/03/18) Pressure ulcer of unspecified buttock, unspecified stage (09/03/18) Pressure ulcer of unspecified site, unspecified stage (09/03/18) Inflammatory disorders of scrotum (09/03/18) Physical Therapy Treatment Note M2 PT-IP Current Condition Start: 09/03/18 16:01 Freq: NEEDED Status: Active Protocol: Document 09/10/18 11:33 RCC (Rec: 09/10/18 12:31 [facility] [id number]) Physical Therapy Current Condition Current Condition Evaluation Date 09/04/18 Treatment Diagnosis rectal bleeding, impaired activity tolerance Precautions Other Precautions wounds to rectum and scrotum M3 PT-IP Subjective Start: 09/03/18 16:01 Freq: NEEDED Status: Active Protocol: Document 09/10/18 11:33 RCC (Rec: 09/10/18 12:31 [facility] [id number]) Subjective Physical Therapy Visit Type Type Treatment Note Visit Start Time 11:18 Visit Stop Time 11:33 Total Visit Minutes 15 Number of CHECK TOTALER Visits 0 Physical Therapy Visit Comments Patient Comments Pt agreeable to ambulate further, into hallway today. He does not think he can go home at this point. M4 PT-IP Mobility and Gait Start: 09/03/18 16:01 Freq: NEEDED Status: Active Protocol: Document 09/10/18 11:33 RCC (Rec: 09/10/18 12:31 [facility] [id number]) PT-Bed Mobility Assessment Supine to Sit Supine to Sit Independent Bedrails Sit to Supine Sit to Supine Contact Guard Assistance Scooting Scooting to Edge of Bed Standby Assistance Scooting Up and Down in Bed Standby Assistance PT-Transfer Assessment Sit to and From Stand Sit to and from Stand Standby Assistance Equipment Transfer Assistive Device Front Wheeled Walker Transfers Transfer Destination Bed Bedside Commode Transfer Technique Stand Step Pivot Transfer Ability Level of Assist Standby Assistance Gait Assessment Gait Gait Assistance Required: Standby Assistance Distance (Feet) 40 Assistive Devices Assistive Device Front Wheeled Walker Orthotic/Prosthetic Devices or Brace: No Gait Deviations General Gait Pattern Decreased Stride Length Decreased Feet Clearance Wide Based Gait Factors Limiting Gait Function Factors Limiting Gait Function Decreased Activity Tolerance Decreased Strength Poor Safety Awareness Respiratory Distress Comments Gait Comments Pt assisted with donning gowns to ambulate in hallway, he had c/o fatigue after 20 ft of ambulation in hallway, turned around and transferred to [facility] [place] rest with this PT assisting with linen care. Pt then transferred to bed with SBA and FWW. M5 PT-IP Objective Assessments Start: 09/03/18 16:01 Freq: NEEDED Status: Active Protocol: Document 09/04/18 12:50 RCC (Rec: 09/04/18 14:15 RCC [id number]) Orientation Orientation/Cognition Level of Alertness Alert Language Function Ability No Deficits Noted Strength Comments Strength Comments hip flexion at least 3/5 but unable to lift BLEs without assistance back to bed Coordination Assessment Gross Coordination Gross Coordination WNL M6 PT-IP Treatment Start: 09/03/18 16:01 Freq: NEEDED Status: Active Protocol: Document 09/08/18 11:14 SA (Rec: 09/08/18 11:24 SA [id number]) Physical Therapy Treatment Exercises Exercises Ankle Pumps Heel Slides Education Education Provided Safety M7 PT-IP Assessment and Plan Start: 09/03/18 16:01 Freq: NEEDED Status: Active Protocol: Document 09/10/18 11:33 RCC (Rec: 09/10/18 12:31 RCC [id number]) PT Summary Assessment and Plan Summary Assessment Summary Pt is CGA to SBA for mobility in the room, and was able to ambulate 40 ft today with FWW. He did c/o fatigue. Pt was agreeable to further ambulation today with some increased reasoning for why, but he was compliant. Pt's ambulation ability is below his functional baseline at this time, and likely would greatly benefit from SNF rehabilitation upon d/c to progress his activity tolerance, mobility, and safety with functional independence. Frequency of Treatment Frequency Of Treatment Once a Day Discharge Recommendations PT Discharge Recommendations SNF Rehab Other Discharge Recommendations home with assist and HH if unable to be placed in SNF rehab.
--- NOTE | 2018-09-10 19:54 | P.PN_ITS ---
Subjective Date Patient Seen: 09/10/18 Interval history: Babatunde Fitzgerald is a 37-year-old male with a past medical history significant for asthma, anxiety, morbid obesity (BMI 83.1), obesity hypoventilation syndrome , RAJESH, chronic pain with methadone dependence, hypothyroidism, h/o nephrolithiasis (h/o basket retrieval and lithotripsy), recurrent sacral and perineal ulcers, and marijuana use who is here for sacral and scrotal pressure ulcerations with pain. The patient is resting in bed comfortably and in no acute distress. He denies headache, vision changes, sore throat, chest pain, shortness of breath, abdominal pain, nausea, vomiting, fever, chills, dysuria, diarrhea or constipation. He endorses pain in his sacral and scrotal region controlled with methadone. He is up ambulating with a forward wheeled walker and standby assist. Exam Vital Signs (past 8 hours): - 09/10/18 13:13 09/10/18 15:55 09/10/18 16:07 Temperature 97.9 F 98.3 F Pulse Rate 94 H 89 86 Respiratory Rate 20 16 20 Blood Pressure 134/69 112/61 Pulse Oximetry 98 96 93 Fraction of Inspired Oxygen 21 Oxygen Delivery Method Room Air Oxygen Flow Rate 0 Narrative Exam Narrative: General: Young morbidly obese gentleman lying in bed and in no acute distress, well-developed, well-nourished, appropriately interactive. HEENT: Normocephalic, atraumatic. External ears without defect. Pupils equal, round, and reactive to light. Anicteric sclerae, moist conjunctivae, and no lid lag. Oropharynx free of erythema and cobble stoning with moist mucosa. Neck: Supple with full range of motion. No jugular venous distension. No bruits. No lymphadenopathy or thyromegaly. Cardiovascular: Regular rate and rhythm without murmurs, rubs, or gallops appreciated. Pulmonary: Clear to auscultation bilaterally without crackles, wheezes, or rhonchi. Normal respiratory effort with no use of accessory muscles. Abdomen:Soft, obese, nontender, nondistended, bowel sounds present. Extremities: No clubbing or cyanosis. +3 pitting edema to knees bilaterally. Skin: Normal temperature, turgor, and texture; superficial wounds on scrotum and sacral region appear dry without exudate and healing well. Neurological: Cranial nerves grossly intact. Psychiatric: Normal mood and affect. Alert and oriented to person, place, and time. Poor insight into disease process. Objective Labs Result Diagrams: 09/10/18 05:28 09/10/18 05:28 Labs: Laboratory Results - last 24 hr 09/10/18 09/10/18 09/10/18 05:28 05:28 05:28 WBC 4.2 L RBC 4.27 L Hgb 11.0 L Hct 34.9 L MCV 81.9 MCH 25.8 L MCHC 31.5 RDW 16.8 H Plt Count 148 L Neut % (Auto) 44.2 L Lymph % (Auto) 43.7 H Cannon % (Auto) 11.3 Eos % (Auto) 0.2 L Baso % (Auto) 0.6 Neut # (Auto) 1900 Sodium 140 Potassium 4.3 Chloride 97 L Carbon Dioxide 36 H BUN 10 Creatinine 0.80 Estimated GFR > 60.0 BUN/Creatinine Ratio 12.5 Glucose 72 Calcium 8.4 Magnesium 2.3 Total Bilirubin 0.2 AST 18 ALT 19 L Alkaline Phosphatase 70 Total Protein 6.5 Albumin 3.1 L Globulin 3.4 Albumin/Globulin Ratio 0.9 L Procalcitonin < 0.05 Assessment & Plan Plan: Assessment/Plan Narrative: Babatunde Fitzgerald is a 37-year-old male with a past medical history significant for asthma, anxiety, morbid obesity (BMI 83.1), obesity hypoventilation syndrome , RAJESH, chronic pain with methadone dependence, hypothyroidism, h/o nephrolithiasis (h/o basket retrieval and lithotripsy), recurrent sacral and perineal ulcers, and marijuana use who is here for sacral and scrotal pressure ulcerations with pain. 1. 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 Improving. -Continue bariatric bed and wound care nursing recommendations, specifically intra-dry between skin folds and avoidance of wet creams in folds. -Continue current antibiotics. 2. Asthma with acute exacerbation resolved. Stable. -Continue duo nebs and slow taper over months of steroids, currently prednisone 10 mg daily. 3. Generalized pruritus, acute on chronic. Stable. - Continue Benadryl 25 mg every 6 hours as needed for pruritus. 4. Obstructive sleep apnea and obesity hypoventilation syndrome, chronic. Stable. -Continue CPAP during naps and while sleeping. -Needs updated outpatient sleep study. 5. Acute on chronic anxiety. Well controlled and stable. -Continue home meds Duloxetine 30 mg daily and olanzapine 20 mg daily 6. Morbid obesity (BMI 83.1), chronic. Stable. -Continue physical therapy and encourage patient to be up and ambulating 3 times a day. 7. Chronic pain syndrome on methadone. Well controlled. -Continue methadone 95 mg daily, tramadol 100 mg twice daily, and gabapentin 300 mg 3 times daily. 8. Hypothyroidism, chronic. Stable. -Continue home meds. DVT prophylaxis: SubQ heparin. Disposition: Having difficulty with placement for [facility] facility due to current insurance. Patient likely to be here at least 3-5 days for wound care and healing. Quality VTE Deep Vein Thrombosis/Pulmonary Embolism Present on Admission: No
[2018-09-11] VITALS (11 sets, daily range): BP systolic 116–129; BP diastolic 67–76; PULSE 72–93; RESP 14–20; TEMP 36.4–36.6; O2SAT 90–98
[2018-09-11] MEDS: OXYCODONE/ACETAMINOPHEN 5/325 TABLET 1 TAB PO ×2 (02:06→13:56)
--- NOTE | 2018-09-11 02:15 | PC.NURSE ---
Pt. was sleeping since 2300, woke up to used the BSC. Requested & given some apple juice, C/O pain 1 tab. Percocet admin. Will cont. POC & monitor.
[2018-09-11] MEDS: ALBUTEROL/IPRATROPIUM 3 ML AMPUL INH ×4 (02:18→17:56)
[2018-09-11] MEDS: diphenhydrAMINE 25 MG TABLET PO ×3 (02:46→20:28)
[2018-09-11] MEDS: FLUTICASONE/SALMETEROL 500/50 14 PUFF DISKUS INH (06:33)
[2018-09-11] MEDS: METHADONE 10 MG TABLET 95 MG PO (08:48)
[2018-09-11] MEDS: DULOXETINE 30 MG CAPSULE PO (08:49)
[2018-09-11] MEDS: OLANZapine ODT 10 MG TAB 20 MG PO (08:49)
[2018-09-11] MEDS: GABAPENTIN 300 MG CAPSULE PO ×3 (08:50→20:28)
[2018-09-11] MEDS: DOXYCYCLINE HYCLATE 100 MG TABLET PO ×2 (08:51→20:28)
[2018-09-11] MEDS: FLUCONAZOLE 100 MG TABLET 200 MG PO (08:57)
[2018-09-11] MEDS: TRAMADOL 50 MG TABLET 100 MG PO ×2 (08:57→20:28)
--- NOTE | 2018-09-11 11:31 | PT.IPTN ---
Current Diagnoses Morbid (severe) obesity due to excess calories (09/03/18) Opioid dependence, uncomplicated (09/03/18) Anxiety disorder, unspecified (09/03/18) Obstructive sleep apnea (adult) (pediatric) (09/03/18) Unspecified asthma with (acute) exacerbation (09/03/18) Unspecified asthma, uncomplicated (09/03/18) Cutaneous abscess of buttock (09/03/18) Cellulitis of buttock (09/03/18) Local infection of the skin and subcutaneous tissue, unspecified (09/03/18) Pressure ulcer of unspecified buttock, stage 2 (09/03/18) Pressure ulcer of unspecified buttock, unspecified stage (09/03/18) Pressure ulcer of unspecified site, unspecified stage (09/03/18) Inflammatory disorders of scrotum (09/03/18) Physical Therapy Treatment Note M2 PT-IP Current Condition Start: 09/03/18 16:01 Freq: NEEDED Status: Active Protocol: Document 09/11/18 11:31 RCC (Rec: 09/11/18 12:55 RCC [email or web address]) Physical Therapy Current Condition Current Condition Evaluation Date 09/04/18 Treatment Diagnosis rectal bleeding, impaired activity tolerance Precautions Other Precautions wounds to rectum and scrotum M3 PT-IP Subjective Start: 09/03/18 16:01 Freq: NEEDED Status: Active Protocol: Document 09/11/18 11:31 RCC (Rec: 09/11/18 12:55 RCC [email or web address]) Subjective Physical Therapy Visit Type Type Treatment Note Visit Start Time 11:20 Visit Stop Time 11:31 Total Visit Minutes 11 Number of WATER CONTROL STATION ENGINEER Visits 0 Physical Therapy Visit Comments Patient Comments pt willing to continue to progress gait. He is c/o B foot pain today in standing. M4 PT-IP Mobility and Gait Start: 09/03/18 16:01 Freq: NEEDED Status: Active Protocol: Document 09/11/18 11:31 RCC (Rec: 09/11/18 12:55 RCC [email or web address]) PT-Bed Mobility Assessment Supine to Sit Supine to Sit Independent Bedrails Sit to Supine Sit to Supine Standby Assistance PT-Transfer Assessment Sit to and From Stand Sit to and from Stand Standby Assistance Equipment Transfer Assistive Device Front Wheeled Walker Transfers Transfer Destination Bed Bedside Commode Transfer Technique Stand Step Pivot Transfer Ability Level of Assist Standby Assistance Gait Assessment Gait Gait Assistance Required: Standby Assistance Distance (Feet) 35 Assistive Devices Assistive Device Front Wheeled Walker Orthotic/Prosthetic Devices or Brace: No Gait Deviations General Gait Pattern Decreased Stride Length Decreased Feet Clearance Wide Based Gait Factors Limiting Gait Function Factors Limiting Gait Function Decreased Activity Tolerance Decreased Strength Pain Poor Safety Awareness Respiratory Distress Comments Gait Comments Pt had c/o increased fatigue this session with mobility, HR up to 120 bpm after gait and O2 on RA to 91% after gait, recovery to 93% after sitting rest x1 min. M5 PT-IP Objective Assessments Start: 09/03/18 16:01 Freq: NEEDED Status: Active Protocol: Document 09/04/18 12:50 RCC (Rec: 09/04/18 14:15 RCC [id number]) Orientation Orientation/Cognition Level of Alertness Alert Language Function Ability No Deficits Noted Strength Comments Strength Comments hip flexion at least 3/5 but unable to lift BLEs without assistance back to bed Coordination Assessment Gross Coordination Gross Coordination WNL M6 PT-IP Treatment Start: 09/03/18 16:01 Freq: NEEDED Status: Active Protocol: Document 09/08/18 11:14 SA (Rec: 09/08/18 11:24 SA [id number]) Physical Therapy Treatment Exercises Exercises Ankle Pumps Heel Slides Education Education Provided Safety M7 PT-IP Assessment and Plan Start: 09/03/18 16:01 Freq: NEEDED Status: Active Protocol: Document 09/11/18 11:31 RCC (Rec: 09/11/18 12:55 RCC [email or web address]) PT Summary Assessment and Plan Summary Assessment Summary Pt able to get in/out of bed with overhead trapeze and SBA/ indep. He was unable to progress his gait distance due to c/o bilateral foot pain and SOB, but did ambulate in hallway and responded to encouragement to continue to ambulate. His O2 saturation decreased to 91% on RA after gait, requiring short seated rest to get to 93% on RA. Pt is still highly deconditioned and recommend SNF rehabilitation to continue to progress his activity tolerance and safety with mobility when upright. Goals Bed Mobility Goal Independent Transfer Goal Independent Gait Goal Standby Assistance Front Wheel Walker Gait Distance 50 Days to Meet Goals 10 Frequency of Treatment Frequency Of Treatment Once a Day Recommendations To Nursing Amount of Assist Needed 1 Person Assist Discharge Recommendations PT Discharge Recommendations SNF Rehab Other Discharge Recommendations home with assist and HH if unable to be placed in SNF rehab.
[2018-09-11] MEDS: predniSONE 10 MG TABLET PO (12:24)
[2018-09-11] MEDS: ENOXAPARIN 30 MG/0.3 ML SYRINGE SUBCUT ×2 (12:54→20:28)
[2018-09-11] MEDS: SODIUM CHLORIDE 0.9% FLUSH 10 ML IV ×2 (13:52→20:28)
[2018-09-11] MEDS: NYSTATIN POWDER 30 GM 1 APPLIC TOP (13:54)
--- NOTE | 2018-09-11 14:17 | PC.NURSE ---
AM NOTE - pt is alert, 02 sat 89-93%, sob with any activity, bs dim, after lunch pt was able to stand and with assist computer systems administrator, showered and cleaned buttock and skin folds, mult areas excoriation and patches post buttock and scrotum, after shower, ointment applied, nystatin to skin folds followed by interdry, pt req percocet and given x1 tab and also benadryl to prevent itching.
--- NOTE | 2018-09-11 17:40 | P.PN_ITS ---
Subjective Date Patient Seen: 09/11/18 Interval history: Babatunde Fitzgerald is a 37-year-old male with a past medical history significant for asthma, anxiety, morbid obesity (BMI 83.1), obesity hypoventilation syndrome , RAJESH, chronic pain with methadone dependence, hypothyroidism, h/o nephrolithiasis (h/o basket retrieval and lithotripsy), recurrent sacral and perineal ulcers, and marijuana use who is here for sacral and scrotal pressure ulcerations with pain. The patient is resting in bed comfortably and in no acute distress. He continues to endorses pain in his buttocks which is controlled with his methadone. He reports that he has been ambulating in the [place] with physical therapy yesterday and today for the 1st time this hospitalization. He denies headache, vision changes, sore throat, chest pain, shortness of breath, abdominal pain, nausea, vomiting, fever, chills, dysuria, diarrhea or constipation. He is up ambulating with a forward wheeled walker and standby assist. Exam Vital Signs (past 8 hours): - 09/11/18 11:24 09/11/18 12:27 09/11/18 17:09 Temperature 97.5 F L Pulse Rate 78 93 H Respiratory Rate 14 20 Blood Pressure 126/73 Pulse Oximetry 90 L 98 94 Fraction of Inspired Oxygen 21 Oxygen Delivery Method Room Air Oxygen Flow Rate 0 Narrative Exam Narrative: General: Young morbidly obese gentleman lying in bed and in no acute distress, well-developed, well-nourished, appropriately interactive. HEENT: Normocephalic, atraumatic. External ears without defect. Pupils equal, round, and reactive to light. Anicteric sclerae, moist conjunctivae, and no lid lag. Oropharynx free of erythema and cobble stoning with moist mucosa. Neck: Supple with full range of motion. No jugular venous distension. No bruits. No lymphadenopathy or thyromegaly. Cardiovascular: Regular rate and rhythm without murmurs, rubs, or gallops appreciated. Pulmonary: Clear to auscultation bilaterally without crackles, wheezes, or rhonchi. Normal respiratory effort with no use of accessory muscles. Abdomen:Soft, obese, nontender, nondistended, bowel sounds present. Extremities: No clubbing or cyanosis. +3 pitting edema to knees bilaterally. Skin: Normal temperature, turgor, and texture; skin folds candidiasis is clearing, intra dry in folds, superficial wounds on scrotum and sacral region appear dry without exudate and healing well. Neurological: Cranial nerves grossly intact. Psychiatric: Normal mood and affect. Alert and oriented to person, place, and time. Poor insight into disease process. Objective Labs Result Diagrams: 09/10/18 05:28 09/10/18 05:28 Assessment & Plan Plan: Assessment/Plan Narrative: Babatunde Fitzgerald is a 37-year-old male with a past medical history significant for asthma, anxiety, morbid obesity (BMI 83.1), obesity hypoventilation syndrome , RAJESH, chronic pain with methadone dependence, hypothyroidism, h/o nephrolithiasis (h/o basket retrieval and lithotripsy), recurrent sacral and perineal ulcers, and marijuana use who is here for sacral and scrotal pressure ulcerations with pain. 1. 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 Improving. -Continue bariatric bed and wound care nursing recommendations, specifically intra-dry between skin folds and avoidance of wet creams in folds. Plan to discuss patient's healing process and wound care with wound care nursing tomorrow and whether not they feel his wounds could be managed at home. -Continue doxycycline for 10 day course. Discontinued Diflucan. 2. Asthma with acute exacerbation resolved. Stable. -Continue duo nebs and slow taper over months of steroids, currently prednisone 10 mg daily. 3. Generalized pruritus, acute on chronic. Stable. - Continue Benadryl 25 mg every 6 hours as needed for pruritus. 4. Obstructive sleep apnea and obesity hypoventilation syndrome, chronic. Stable. -Continue CPAP during naps and while sleeping. -Needs updated outpatient sleep study. 5. Acute on chronic anxiety. Well controlled and stable. -Continue home meds Duloxetine 30 mg daily and olanzapine 20 mg daily 6. Morbid obesity (BMI 83.1), chronic. Stable. -Continue physical therapy and encourage patient to be up and ambulating 3 times a day. 7. Chronic pain syndrome on methadone. Well controlled. -Continue methadone 95 mg daily, tramadol 100 mg twice daily, and gabapentin 300 mg 3 times daily. 8. Hypothyroidism, chronic. Stable. -Continue home meds. DVT prophylaxis: SubQ heparin. Disposition: Having difficulty with placement for half-way facility due to current insurance. Patient likely to be here at least 3-5 days for wound care and healing. Quality VTE Deep Vein Thrombosis/Pulmonary Embolism Present on Admission: No
--- NOTE | 2018-09-11 17:58 | RT ---
Patient refuses Advair but requests nebulizer treatment. Duoneb given.
[2018-09-12] VITALS (12 sets, daily range): BP systolic 112–131; BP diastolic 55–79; PULSE 78–90; RESP 15–20; TEMP 36.5–36.8; O2SAT 92–99
[2018-09-12] MEDS: OXYCODONE/ACETAMINOPHEN 5/325 TABLET 1 TAB PO ×2 (02:23→16:34)
[2018-09-12] MEDS: diphenhydrAMINE 25 MG TABLET PO ×3 (02:24→16:35)
[2018-09-12] MEDS: LORazepam 1 MG TABLET PO ×2 (02:25→19:24)
[2018-09-12] MEDS: ALBUTEROL/IPRATROPIUM 3 ML AMPUL INH ×4 (03:58→21:10)
--- NOTE | 2018-09-12 05:31 | PC.NURSE ---
Pt is A and O x 4, VSS. Sleeping with CPAP for sleep apnea. Pt c/o of itching on his back and buttocks and pain in his scrotum. He got good relief with one Percocet and 25 mg Benadryl po. He requested Ativan, 1 mg po and he slept well. He did complain when he was denied a snack as he is now on two snacks/day plus three meals. Pt able to sleep. Pt has been able to use BSC without missing, this shift.
--- NOTE | 2018-09-12 06:44 | PM.PN.1 ---
Subjective Date Patient Seen: 09/12/18 Interval history: Babatunde Fitzgerald is a 37-year-old male with a past medical history significant for asthma, anxiety, morbid obesity (BMI 83.1), obesity hypoventilation syndrome, RAJESH, chronic pain with methadone dependence, hypothyroidism, h/o nephrolithiasis (h/o basket retrieval and lithotripsy), recurrent sacral and perineal ulcers, and marijuana use who is here for sacral and scrotal pressure ulcerations with pain. The patient is resting in bed comfortably and in no acute distress. He continues to endorse pain in his sacral and scrotal region. He denies headache, chest pain, shortness of breath, abdominal pain, nausea, vomiting, fever, chills, dysuria, diarrhea or constipation. He is up ambulating with a forward wheeled walker with PT. Exam Vital Signs (past 8 hours): - 09/12/18 02:00 09/12/18 03:59 09/12/18 06:15 Temperature 98.0 F 98.2 F Pulse Rate 80 78 80 Respiratory Rate 19 18 18 Blood Pressure 124/59 L 115/74 Pulse Oximetry 95 99 94 Fraction of Inspired Oxygen 21 Oxygen Delivery Method CPAP Oxygen Flow Rate 0 Narrative Exam Narrative: General: Young morbidly obese gentleman lying in bed and in no acute distress, well-developed, well-nourished, appropriately interactive. HEENT: Normocephalic, atraumatic. External ears without defect. Pupils equal, round, and reactive to light. Anicteric sclerae, moist conjunctivae, and no lid lag. Neck: Supple with full range of motion.No lymphadenopathy or thyromegaly. Cardiovascular: Regular rate and rhythm without murmurs, rubs, or gallops appreciated. Pulmonary: Clear to auscultation bilaterally without crackles, wheezes, or rhonchi. Normal respiratory effort with no use of accessory muscles. Abdomen: Soft, obese, bowel sounds present, nontender, nondistended. No hepatosplenomegaly or masses appreciated. Extremities: No clubbing or cyanosis. +3 pitting edema to knees bilaterally. Skin: Normal temperature, turgor, and texture; several wounds on scrotum and sacral region appear dry, without exudate, healing slowly. Neurological: Cranial nerves grossly intact. Psychiatric: Normal mood and affect. Alert and oriented to person, place, and time. Poor insight into disease process. Objective Labs Result Diagrams: 09/10/18 05:28 09/10/18 05:28 Assessment & Plan Plan: Assessment/Plan Narrative: Babatunde Fitzgerald is a 37-year-old male with a past medical history significant for asthma, anxiety, morbid obesity (BMI 83.1), obesity hypoventilation syndrome, RAJESH, chronic pain with methadone dependence, hypothyroidism, h/o nephrolithiasis (h/o basket retrieval and lithotripsy), recurrent sacral and perineal ulcers, and marijuana use who is here for sacral and scrotal pressure ulcerations with pain. 1. 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 Improving. -Continue bariatric bed and wound care nursing recommendations, specifically intra-dry between skin folds and avoidance of wet creams in folds. Plan to discuss with wound care nurse whether they feel the patient is able to manage wound care at home. -Continue doxycycline for 10 day course. Discontinued Diflucan. 2. Asthma with acute exacerbation resolved. Stable. -Continue duo nebs and slow taper over months of steroids, currently prednisone 10 mg daily. 3. Generalized pruritus, acute on chronic. Stable. - Continue Benadryl 25 mg every 6 hours as needed for pruritus. 4. Obstructive sleep apnea and obesity hypoventilation syndrome, chronic. Stable. -Continue CPAP during naps and while sleeping. -Needs updated outpatient sleep study. 5. Acute on chronic anxiety. Well controlled and stable. -Continue home meds Duloxetine 30 mg daily and olanzapine 20 mg daily 6. Morbid obesity (BMI 83.1), chronic. Stable. -Continue physical therapy and encourage patient to be up and ambulating 3 times a day. 7. Chronic pain syndrome on methadone. Well controlled. -Continue methadone 95 mg daily, tramadol 100 mg twice daily, and gabapentin 300 mg 3 times daily. 8. Hypothyroidism, chronic. Stable. -Continue home meds. DVT prophylaxis: SubQ heparin. Disposition: Having difficulty with placement for [facility] facility due to current insurance. Patient likely to be here at least 3-5 days for wound care and healing. Quality VTE Deep Vein Thrombosis/Pulmonary Embolism Present on Admission: No
[2018-09-12] MEDS: DOXYCYCLINE HYCLATE 100 MG TABLET PO ×2 (10:18→21:49)
[2018-09-12] MEDS: DULOXETINE 30 MG CAPSULE PO (10:18)
[2018-09-12] MEDS: ENOXAPARIN 30 MG/0.3 ML SYRINGE SUBCUT ×2 (10:18→21:50)
[2018-09-12] MEDS: TRAMADOL 50 MG TABLET 100 MG PO ×2 (10:18→21:52)
[2018-09-12] MEDS: GABAPENTIN 300 MG CAPSULE PO ×3 (10:18→21:50)
[2018-09-12] MEDS: OLANZapine ODT 10 MG TAB 20 MG PO (10:19)
[2018-09-12] MEDS: METHADONE 10 MG TABLET 95 MG PO (10:19)
--- NOTE | 2018-09-12 13:28 | PT.IPTN ---
Current Diagnoses Morbid (severe) obesity due to excess calories (09/03/18) Opioid dependence, uncomplicated (09/03/18) Anxiety disorder, unspecified (09/03/18) Obstructive sleep apnea (adult) (pediatric) (09/03/18) Unspecified asthma with (acute) exacerbation (09/03/18) Unspecified asthma, uncomplicated (09/03/18) Cutaneous abscess of buttock (09/03/18) Cellulitis of buttock (09/03/18) Local infection of the skin and subcutaneous tissue, unspecified (09/03/18) Pressure ulcer of unspecified buttock, stage 2 (09/03/18) Pressure ulcer of unspecified buttock, unspecified stage (09/03/18) Pressure ulcer of unspecified site, unspecified stage (09/03/18) Inflammatory disorders of scrotum (09/03/18) Physical Therapy Treatment Note M2 PT-IP Current Condition Start: 09/03/18 16:01 Freq: NEEDED Status: Active Protocol: Document 09/11/18 11:31 RCC (Rec: 09/11/18 12:55 RCC [id number]) Physical Therapy Current Condition Current Condition Evaluation Date 09/04/18 Treatment Diagnosis rectal bleeding, impaired activity tolerance Precautions Other Precautions wounds to rectum and scrotum M3 PT-IP Subjective Start: 09/03/18 16:01 Freq: NEEDED Status: Active Protocol: Document 09/12/18 12:55 LJ (Rec: 09/12/18 13:28 LJ [id number]) Subjective Physical Therapy Visit Type Type Treatment Note Visit Start Time 12:55 Visit Stop Time 13:14 Total Visit Minutes 19 Notes Pt in bed willing to ambulate in hallway M4 PT-IP Mobility and Gait Start: 09/03/18 16:01 Freq: NEEDED Status: Active Protocol: Document 09/12/18 12:55 LJ (Rec: 09/12/18 13:28 LJ [id number]) PT-Bed Mobility Assessment Supine to Sit Supine to Sit Independent Bedrails Sit to Supine Sit to Supine Standby Assistance Scooting Scooting to Edge of Bed Standby Assistance Scooting Up and Down in Bed Standby Assistance PT-Transfer Assessment Sit to and From Stand Sit to and from Stand Standby Assistance Equipment Transfer Assistive Device Axillary Crutches Transfers Transfer Destination Bed Bedside Commode Transfer Technique Stand Step Pivot Transfer Ability Level of Assist Standby Assistance Comments Mobility Comments Pt indep-SBA for bed mobility and trnsfers. Demonstrates impulsive movements Gait Assessment Gait Gait Assistance Required: Standby Assistance Distance (Feet) 100 Assistive Devices Assistive Device Axillary Crutches Gait Deviations General Gait Pattern Decreased Feet Clearance Flexed Trunk Wide Based Gait Factors Limiting Gait Function Factors Limiting Gait Function Decreased Activity Tolerance Decreased Strength Pain Poor Safety Awareness Respiratory Distress Comments Gait Comments Pt assisted with donning gowns for ambulation in hallway. Increased ambulation from 35' to 100' in hallway using ax. crutches brought from home. Pt states he uses crutches at home more than FWW. Pt st on commode while SALES ESTIMATOR and this FORENSIC DOCUMENT EXAMINER assisted with bed change. Left pt on commode with SALES ESTIMATOR present. M5 PT-IP Objective Assessments Start: 09/03/18 16:01 Freq: NEEDED Status: Active Protocol: Document 09/04/18 12:50 RCC (Rec: 09/04/18 14:15 RCC [id number]) Orientation Orientation/Cognition Level of Alertness Alert Language Function Ability No Deficits Noted Strength Comments Strength Comments hip flexion at least 3/5 but unable to lift BLEs without assistance back to bed Coordination Assessment Gross Coordination Gross Coordination WNL M6 PT-IP Treatment Start: 09/03/18 16:01 Freq: NEEDED Status: Active Protocol: Document 09/12/18 12:55 HAI (Rec: 09/12/18 13:28 [id number]) Physical Therapy Treatment Education Education Provided Safety Other Treatments Other Treatment Performed Education for safe use of axillary cutches and increasing distance in gait with each treatment M7 PT-IP Assessment and Plan Start: 09/03/18 16:01 Freq: NEEDED Status: Active Protocol: Document 09/12/18 12:55 HAI (Rec: 09/12/18 13:28 LJ [id number]) PT Summary Assessment and Plan Summary Assessment Summary Pt able to increase gait distance significantly in hallway using crutches brought from home. Requires cueing to lift crutches and place properly in front of him prior to stepping forward.Also requires cues for pacing and posture. Goals Bed Mobility Goal Independent Transfer Goal Independent Gait Goal Standby Assistance Front Wheel Walker Gait Distance 50 Days to Meet Goals 10 Frequency of Treatment Frequency Of Treatment Once a Day Recommendations To Nursing Amount of Assist Needed 1 Person Assist Discharge Recommendations PT Discharge Recommendations SNF Rehab Other Discharge Recommendations home with assist and HH if unable to be placed in SNF rehab.
--- NOTE | 2018-09-12 14:01 | PC.NURSE ---
Patient got up with PT to walk in the halls with crutches. I cleaned the patients bed and added new bedding. Patient used the commode when returning with PT and refused wet wipes to help clean him afterwards.
[2018-09-12] MEDS: predniSONE 10 MG TABLET PO (14:52)
[2018-09-13] VITALS (15 sets, daily range): BP systolic 113–131; BP diastolic 55–76; PULSE 72–94; RESP 15–22; TEMP 36.5–36.9; O2SAT 90–98
[2018-09-13] MEDS: OXYCODONE/ACETAMINOPHEN 5/325 TABLET 1 TAB PO ×4 (03:09→19:00)
[2018-09-13] MEDS: diphenhydrAMINE 25 MG TABLET PO ×3 (03:09→23:44)
[2018-09-13] MEDS: ALBUTEROL/IPRATROPIUM 3 ML AMPUL INH ×3 (03:52→18:13)
--- NOTE | 2018-09-13 05:26 | PC.NURSE ---
Pt is A and O x 4, VSS, occ desat on noc, encouraged to use CPAP. LS diminished, + BT, S1, S2. Pt compliant with snack schedule but stated that hospital is starving him. Calm and cooperative, continent on BSC.
--- NOTE | 2018-09-13 08:06 | P.PN_ITS ---
Subjective Date Patient Seen: 09/13/18 Interval history: Babatunde Fitzgerald is a 37-year-old male with a past medical history significant for asthma, anxiety, morbid obesity (BMI 83.1), obesity hypoventilation syndrome , RAJESH, chronic pain with methadone dependence, hypothyroidism, h/o nephrolithiasis (h/o basket retrieval and lithotripsy), recurrent sacral and perineal ulcers, and marijuana use who is here for sacral and scrotal pressure ulcerations with pain. The patient is resting in bed comfortably in bed. He continues to endorse pain in his sacral and scrotal region that is controlled and tolerable with methadone. He denies headache, chest pain, shortness of breath, abdominal pain , nausea, vomiting, fever, chills, dysuria, diarrhea or constipation. He is up ambulating with a forward wheeled walker with PT. Continue to have discussions regarding lifestyle modifications including diet and exercise for which the patient seems to slowly be grasping and making small adjustments/improvements. Exam Vital Signs (past 8 hours): - 09/13/18 00:17 09/13/18 01:35 09/13/18 03:52 Temperature 97.7 F Pulse Rate 85 86 Respiratory Rate 15 16 Blood Pressure 115/55 L Pulse Oximetry 92 98 96 09/13/18 04:40 09/13/18 05:00 Temperature 98.0 F Pulse Rate 83 Respiratory Rate 16 Blood Pressure 124/71 Pulse Oximetry 91 93 Fraction of Inspired Oxygen 21 Oxygen Delivery Method CPAP Oxygen Flow Rate 0 Narrative Exam Narrative: General: Young morbidly obese gentleman lying in bed and in no acute distress, well-developed, well-nourished, appropriately interactive. HEENT: Normocephalic, atraumatic. External ears without defect. Pupils equal, round, and reactive to light. Anicteric sclerae, moist conjunctivae, and no lid lag. Neck: Supple with full range of motion.No lymphadenopathy or thyromegaly. Cardiovascular: Regular rate and rhythm without murmurs, rubs, or gallops appreciated. Pulmonary: Clear to auscultation bilaterally without crackles, wheezes, or rhonchi. Normal respiratory effort with no use of accessory muscles. Abdomen: Soft, obese, bowel sounds present, nontender, nondistended. No hepatosplenomegaly or masses appreciated. Extremities: No clubbing or cyanosis. +3 pitting edema to knees bilaterally. Skin: Normal temperature, turgor, and texture; several ulcerations on scrotum and sacral region appear dry, without exudate, healing slowly. Neurological: Cranial nerves grossly intact. Psychiatric: Normal mood and affect. Alert and oriented to person, place, and time. Poor insight into disease process. Objective Labs Result Diagrams: 09/10/18 05:28 09/10/18 05:28 Assessment & Plan Plan: Assessment/Plan Narrative: Babatunde Fitzgerald is a 37-year-old male with a past medical history significant for asthma, anxiety, morbid obesity (BMI 83.1), obesity hypoventilation syndrome , RAJESH, chronic pain with methadone dependence, hypothyroidism, h/o nephrolithiasis (h/o basket retrieval and lithotripsy), recurrent sacral and perineal ulcers, and marijuana use who is here for sacral and scrotal pressure ulcerations with pain. 1. 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 Improving. -Continue bariatric bed and wound care nursing recommendations, specifically intra-dry between skin folds and avoidance of wet creams in folds. Plan to discuss with wound care nurse whether they feel the patient is able to manage wound care at home. -Continue doxycycline for 10 day course to stop today 09/13. Discontinued Diflucan and continue nystatin powder as needed. 2. Asthma with acute exacerbation resolved. Stable. -Continue duo nebs and slow taper over months of steroids, currently prednisone 10 mg daily. 3. Generalized pruritus, acute on chronic. Stable. -Continue Benadryl 25 mg every 6 hours as needed for pruritus. 4. Obstructive sleep apnea and obesity hypoventilation syndrome, chronic. Stable. -Continue CPAP during naps and while sleeping. -Needs updated outpatient sleep study. 5. Acute on chronic anxiety. Well controlled and stable. -Continue home meds Duloxetine 30 mg daily and olanzapine 20 mg daily 6. Morbid obesity (BMI 83.1), chronic. Stable. -Continue physical therapy and encourage patient to be up and ambulating 3 times a day. 7. Chronic pain syndrome on methadone. Well controlled. -Continue methadone 95 mg daily, tramadol 100 mg twice daily, and gabapentin 300 mg 3 times daily. 8. Hypothyroidism, chronic. Stable. -Continue home meds. DVT prophylaxis: SubQ heparin. Disposition: Having difficulty with placement for retirement facility due to current insurance. Patient likely to be here at least 3-5 days for wound care and healing. Quality VTE Deep Vein Thrombosis/Pulmonary Embolism Present on Admission: No
[2018-09-13] MEDS: ENOXAPARIN 30 MG/0.3 ML SYRINGE SUBCUT ×2 (08:27→21:50)
[2018-09-13] MEDS: SODIUM CHLORIDE 0.9% FLUSH 10 ML IV (08:28)
[2018-09-13] MEDS: DULOXETINE 30 MG CAPSULE PO (08:29)
[2018-09-13] MEDS: DOXYCYCLINE HYCLATE 100 MG TABLET PO ×2 (08:29→21:51)
[2018-09-13] MEDS: GABAPENTIN 300 MG CAPSULE PO ×3 (08:29→21:49)
[2018-09-13] MEDS: OLANZapine ODT 10 MG TAB 20 MG PO (08:39)
[2018-09-13] MEDS: TRAMADOL 50 MG TABLET 100 MG PO ×2 (08:41→21:57)
[2018-09-13] MEDS: METHADONE 10 MG TABLET 95 MG PO (08:41)
[2018-09-13] MEDS: predniSONE 10 MG TABLET PO ×2 (10:35→10:36)
--- NOTE | 2018-09-13 11:30 | PT.IPTN ---
Current Diagnoses Morbid (severe) obesity due to excess calories (09/03/18) Opioid dependence, uncomplicated (09/03/18) Anxiety disorder, unspecified (09/03/18) Obstructive sleep apnea (adult) (pediatric) (09/03/18) Unspecified asthma with (acute) exacerbation (09/03/18) Unspecified asthma, uncomplicated (09/03/18) Cutaneous abscess of buttock (09/03/18) Cellulitis of buttock (09/03/18) Local infection of the skin and subcutaneous tissue, unspecified (09/03/18) Pressure ulcer of unspecified buttock, stage 2 (09/03/18) Pressure ulcer of unspecified buttock, unspecified stage (09/03/18) Pressure ulcer of unspecified site, unspecified stage (09/03/18) Inflammatory disorders of scrotum (09/03/18) Physical Therapy Treatment Note M2 PT-IP Current Condition Start: 09/03/18 16:01 Freq: NEEDED Status: Active Protocol: Document 09/11/18 11:31 RCC (Rec: 09/11/18 12:55 RCC [id number]) Physical Therapy Current Condition Current Condition Evaluation Date 09/04/18 Treatment Diagnosis rectal bleeding, impaired activity tolerance Precautions Other Precautions wounds to rectum and scrotum M3 PT-IP Subjective Start: 09/03/18 16:01 Freq: NEEDED Status: Active Protocol: Document 09/13/18 11:29 LJ (Rec: 09/13/18 11:30 LJ [id number]) Subjective Physical Therapy Visit Type Type Patient Refusal Notes Checked on pt twice in am. Both times refused stating that his legs were too sore. States he will ambulate in hallway tomorrow M4 PT-IP Mobility and Gait Start: 09/03/18 16:01 Freq: NEEDED Status: Active Protocol: Document 09/12/18 12:55 LJ (Rec: 09/12/18 13:28 LJ [id number]) PT-Bed Mobility Assessment Supine to Sit Supine to Sit Independent Bedrails Sit to Supine Sit to Supine Standby Assistance Scooting Scooting to Edge of Bed Standby Assistance Scooting Up and Down in Bed Standby Assistance PT-Transfer Assessment Sit to and From Stand Sit to and from Stand Standby Assistance Equipment Transfer Assistive Device Axillary Crutches Transfers Transfer Destination Bed Bedside Commode Transfer Technique Stand Step Pivot Transfer Ability Level of Assist Standby Assistance Comments Mobility Comments Pt indep-SBA for bed mobility and trnsfers. Demonstrates impulsive movements Gait Assessment Gait Gait Assistance Required: Standby Assistance Distance (Feet) 100 Assistive Devices Assistive Device Axillary Crutches Gait Deviations General Gait Pattern Decreased Feet Clearance Flexed Trunk Wide Based Gait Factors Limiting Gait Function Factors Limiting Gait Function Decreased Activity Tolerance Decreased Strength Pain Poor Safety Awareness Respiratory Distress Comments Gait Comments Pt assisted with donning gowns for ambulation in hallway. Increased ambulation from 35' to 100' in hallway using ax. crutches brought from home. Pt states he uses crutches at home more than FWW. Pt st on commode while SIZER HAND and this SOCIAL PROFESSIONALS assisted with bed change. Left pt on commode with SIZER HAND present. M5 PT-IP Objective Assessments Start: 09/03/18 16:01 Freq: NEEDED Status: Active Protocol: Document 09/04/18 12:50 RCC (Rec: 09/04/18 14:15 RCC [id number]) Orientation Orientation/Cognition Level of Alertness Alert Language Function Ability No Deficits Noted Strength Comments Strength Comments hip flexion at least 3/5 but unable to lift BLEs without assistance back to bed Coordination Assessment Gross Coordination Gross Coordination WNL M6 PT-IP Treatment Start: 09/03/18 16:01 Freq: NEEDED Status: Active Protocol: Document 09/12/18 12:55 LJ (Rec: 09/12/18 13:28 LJ [id number]) Physical Therapy Treatment Education Education Provided Safety Other Treatments Other Treatment Performed Education for safe use of axillary cutches and increasing distance in gait with each treatment M7 PT-IP Assessment and Plan Start: 09/03/18 16:01 Freq: NEEDED Status: Active Protocol: Document 09/12/18 12:55 LJ (Rec: 09/12/18 13:28 LJ [id number]) PT Summary Assessment and Plan Summary Assessment Summary Pt able to increase gait distance significantly in hallway using crutches brought from home. Requires cueing to lift crutches and place properly in front of him prior to stepping forward.Also requires cues for pacing and posture. Goals Bed Mobility Goal Independent Transfer Goal Independent Gait Goal Standby Assistance Front Wheel Walker Gait Distance 50 Days to Meet Goals 10 Frequency of Treatment Frequency Of Treatment Once a Day Recommendations To Nursing Amount of Assist Needed 1 Person Assist Discharge Recommendations PT Discharge Recommendations SNF Rehab Other Discharge Recommendations home with assist and HH if unable to be placed in SNF rehab.
--- NOTE | 2018-09-13 13:55 | PT.IPTN ---
Current Diagnoses Morbid (severe) obesity due to excess calories (09/03/18) Opioid dependence, uncomplicated (09/03/18) Anxiety disorder, unspecified (09/03/18) Obstructive sleep apnea (adult) (pediatric) (09/03/18) Unspecified asthma with (acute) exacerbation (09/03/18) Unspecified asthma, uncomplicated (09/03/18) Cutaneous abscess of buttock (09/03/18) Cellulitis of buttock (09/03/18) Local infection of the skin and subcutaneous tissue, unspecified (09/03/18) Pressure ulcer of unspecified buttock, stage 2 (09/03/18) Pressure ulcer of unspecified buttock, unspecified stage (09/03/18) Pressure ulcer of unspecified site, unspecified stage (09/03/18) Inflammatory disorders of scrotum (09/03/18) Physical Therapy Treatment Note M3 PT-IP Subjective Start: 09/03/18 16:01 Freq: NEEDED Status: Active Protocol: Document 09/13/18 13:54 [facility] (Rec: 09/13/18 13:55 [facility] [id number]) Subjective Physical Therapy Visit Type Type Patient Refusal Notes Pt refused again this PM. Reported legs were too sore from yesterday. Agrees to amb tomorrow.
[2018-09-13] MEDS: LORazepam 1 MG TABLET PO (14:18)
--- NOTE | 2018-09-13 22:54 | PC.NURSE ---
Addendum entered by Leona Fry R.N. 09/13/18 23:25: 2130- pt has once again taken all cpap/nc off and is 81% on room air, tried to arouse pt, and pt looked at me with no expression, pt wouldn't answer. pt name stated again and pt looked and said yeah very faintly. Pt asked what happened. what was going on. almost as if pt was asleep with his eyes open. pt then rubbed his head and said yeah, what, why, what do you need? discussed use of cpap and low oxygen with pt and pt compliant and put cpap on, 2L oxygen bled in. Pt oxygen 93% on that equipment. pt asked if he knew what had happened, and pt stated he was asleep. will continue to monitor. Original Note: 1500- assumed care of pt. Pt asleep, has no oxygen on at this time. pt woken up and put NC on, oxygen saturation increased to 94%. pt uses call light. pt wounds look better than when I saw them on the of this month. Pt stated that the sticky dsg does not stay on. so wounds and abd folds cleansed and dried, nystatin powder placed to all abd and groin folds and ruth ann armpits. barrier cream applied to scrotum, inner thigh, lower area of scrotum and penis. all areas covered nickel thick. Pt states Ohhh can you scratch that part more please, it really itches. talking about his penis/lower area of scrotum. HEAD SETTER eugene in room assisting and witnessed. Pt tolerated cleansing well and pt did help with holding up abd folds. Pt asks for snacks frequently. Pt get up to bsc. voids a little. encouraged to drink water as urine is concentrated and strong smelling. Pt stated well, yeah I know. Pt prefers to be on NC. but does better with cpap. Pt encouraged to use cpap whenever he sleeps. Pt states that he doesn't like the cpap and that he wont fall asleep so he can stay on the NC. but pt dozes off while still having a conversation. PT woken up and told to put on cpap.
[2018-09-14] VITALS (17 sets, daily range): BP systolic 100–135; BP diastolic 56–75; PULSE 71–101; RESP 12–26; TEMP 36.6–36.9; O2SAT 93–98
[2018-09-14] MEDS: ALBUTEROL/IPRATROPIUM 3 ML AMPUL INH ×4 (00:13→18:41)
[2018-09-14] MEDS: HYDROCORTISONE 1% CREAM 28 GM 1 APPLIC TOP ×3 (00:25→20:45)
[2018-09-14] MEDS: LORazepam 1 MG TABLET PO (02:25)
[2018-09-14] MEDS: OXYCODONE/ACETAMINOPHEN 5/325 TABLET 1 TAB PO ×2 (04:33→12:42)
--- NOTE | 2018-09-14 05:44 | PC.NURSE ---
Pt. did not sleep well asking for Benadryl constantly. Requested RT. treatment @ 0430 & too early for a TX. Offered his inhaler but he refused, states I'll wait for my Nebulizer. Will cont. POC & monitor.
[2018-09-14 05:53] LABS: Add Manual Diff / Slide Review NO; Basophils Percent Auto 0.8 % (0-2); Eosinophils Percent Auto 0.1 % (2-4); Hematocrit 34.8 % (41-53); Hemoglobin 10.8 g/dL (13.5-17.5); Lymphocytes Percent Auto 39.6 % (25-40); Mean Corpuscular Hemoglobin 25.7 PG (26-34); Mean Corpuscular Volume 82.8 fL (80-100); Monocytes Percent Auto 12.2 % (3-14); Neutrophils Absolute Auto 1900 /uL (1500-7000); Neutrophils Percent Auto 47.3 % (50-75); Platelet Count 144 X10^3/uL (150-400); Red Cell Distribution Width 16.8 % (11.6-14.8)
--- NOTE | 2018-09-14 05:53 | PC.NURSE ---
RT. was here @ 0331 & admin. his RT. treatment, pt. sleeping now.
[2018-09-14 06:04] LABS: BUN Creatinine Ratio 17.1 (6-22); Blood Urea Nitrogen 12 mg/dL (9-20); Calcium 8.3 mg/dL (8.4-10.2); Carbon Dioxide 36 mmol/L (22-32); Chloride 98 mmol/L (98-107); Estimated Glomerular Filt Rate > 60.0 mL/min (>60); Glucose 83 mg/dL (70-100); HEMOLYSIS < 15 (0-50); Magnesium 2.1 mg/dL (1.6-2.3); Potassium 4.3 mmol/L (3.4-5.1); Sodium 142 mmol/L (137-145)
[2018-09-14] MEDS: TRAMADOL 50 MG TABLET 100 MG PO ×2 (08:29→20:44)
[2018-09-14] MEDS: METHADONE 10 MG TABLET 95 MG PO (08:29)
--- NOTE | 2018-09-14 08:31 | P.PN_ITS ---
Subjective Date Patient Seen: 09/14/18 Interval history: Babatunde Fitzgerald is a 37-year-old male with a past medical history significant for asthma, anxiety, morbid obesity (BMI 83.1), obesity hypoventilation syndrome , RAJESH, chronic pain with methadone dependence, hypothyroidism, h/o nephrolithiasis (h/o basket retrieval and lithotripsy), recurrent sacral and perineal ulcers, and marijuana use who is here for sacral and scrotal pressure ulcerations with pain. The patient is resting in bed. He continues to endorse pain in his sacral and scrotal region. He has no new symptoms. He denies headache, chest pain, shortness of breath, abdominal pain, nausea, vomiting, fever, chills, dysuria, diarrhea or constipation. He is up ambulating with a forward wheeled walker with PT. Continual discussions daily regarding participation with PT and diet. Exam Vital Signs (past 8 hours): - 09/14/18 04:00 09/14/18 04:34 09/14/18 04:40 Temperature 97.9 F Pulse Rate 86 83 Respiratory Rate 18 18 Blood Pressure 130/68 Pulse Oximetry 93 95 97 09/14/18 05:44 09/14/18 07:03 09/14/18 08:00 Temperature 98.2 F Pulse Rate 94 H Respiratory Rate 24 Blood Pressure 135/75 Pulse Oximetry 93 94 93 Fraction of Inspired Oxygen 21 Oxygen Delivery Method CPAP Oxygen Flow Rate 0 Narrative Exam Narrative: General: Young morbidly obese gentleman lying in bed and in no acute distress, well-developed, well-nourished, appropriately interactive. HEENT: Normocephalic, atraumatic. External ears without defect. Pupils equal, round, and reactive to light. Anicteric sclerae, moist conjunctivae, and no lid lag. Neck: Supple with full range of motion.No lymphadenopathy or thyromegaly. Cardiovascular: Regular rate and rhythm without murmurs, rubs, or gallops appreciated. Pulmonary: Clear to auscultation bilaterally without crackles, wheezes, or rhonchi. Normal respiratory effort with no use of accessory muscles. Abdomen: Soft, obese, bowel sounds present, nontender, nondistended. No hepatosplenomegaly or masses appreciated. Extremities: No clubbing or cyanosis. +3 pitting edema to knees bilaterally. Skin: Normal temperature, turgor, and texture; several ulcerations on scrotum and sacral region appear dry, without exudate, healing slowly. Neurological: Cranial nerves grossly intact. Psychiatric: Normal mood and affect. Alert and oriented to person, place, and time. Poor insight into disease process. Objective Labs Result Diagrams: 09/14/18 05:20 09/14/18 05:20 Labs: Laboratory Results - last 24 hr 09/14/18 09/14/18 05:20 05:20 WBC 4.0 L RBC 4.20 L Hgb 10.8 L Hct 34.8 L MCV 82.8 MCH 25.7 L MCHC 31.0 RDW 16.8 H Plt Count 144 L Neut % (Auto) 47.3 L Lymph % (Auto) 39.6 [place] % (Auto) 12.2 Eos % (Auto) 0.1 L Baso % (Auto) 0.8 Neut # (Auto) 1900 Sodium 142 Potassium 4.3 Chloride 98 Carbon Dioxide 36 H BUN 12 Creatinine 0.70 Estimated GFR > 60.0 BUN/Creatinine Ratio 17.1 Glucose 83 Calcium 8.3 L Magnesium 2.1 Assessment & Plan Plan: Assessment/Plan Narrative: Babatunde Fitzgerald is a 37-year-old male with a past medical history significant for asthma, anxiety, morbid obesity (BMI 83.1), obesity hypoventilation syndrome , RAJESH, chronic pain with methadone dependence, hypothyroidism, h/o nephrolithiasis (h/o basket retrieval and lithotripsy), recurrent sacral and perineal ulcers, and marijuana use who is here for sacral and scrotal pressure ulcerations with pain. 1. Acute on chronic polymicrobial ulcerations of sacral area and scrotum. Improving. -Continue bariatric bed and wound care nursing recommendations, specifically intra-dry between skin folds and avoidance of wet creams in folds. Plan to discuss with wound care nurse whether they feel the patient is able to manage wound care at home. -Completed 10 day course of doxycycline 09/13. Discontinued Diflucan. Continue nystatin powder as needed. 2. Asthma with acute exacerbation resolved. Stable. -Continue duo nebs and slow taper (over months) of steroids, currently prednisone 10 mg daily. 3. Generalized pruritus, acute on chronic. Stable. -Continue Benadryl 25 mg every 6 hours as needed for pruritus. 4. Obstructive sleep apnea and obesity hypoventilation syndrome, chronic. Stable. -Continue CPAP during naps and while sleeping. -Needs updated outpatient sleep study. 5. Acute on chronic anxiety. Well controlled and stable. -Continue home meds Duloxetine 30 mg daily and olanzapine 20 mg daily. 6. Morbid obesity (BMI 83.1), chronic. Stable. -Continue physical therapy and encourage patient to be up and ambulating 3 times a day. -Continue lifestyle modification with diet: 3 meals daily with 1 snack in between (3000 miki/day). Weight down 222kg to 117kg. 7. Chronic pain syndrome on methadone. Well controlled. -Continue methadone 95 mg daily, tramadol 100 mg twice daily, and gabapentin 300 mg 3 times daily. -May want to consider slow titration down on methadone dose as an outpatient. 8. Hypothyroidism, chronic. Stable. -Continue home meds. DVT prophylaxis: SubQ heparin. Disposition: Having difficulty with placement for nursing home facility due to current insurance. Patient likely to be here at least 3-5 days for wound care and healing. Quality VTE Deep Vein Thrombosis/Pulmonary Embolism Present on Admission: No
[2018-09-14] MEDS: DULOXETINE 30 MG CAPSULE PO (08:37)
[2018-09-14] MEDS: OLANZapine ODT 10 MG TAB 20 MG PO (08:37)
[2018-09-14] MEDS: ENOXAPARIN 30 MG/0.3 ML SYRINGE SUBCUT ×2 (08:37→20:44)
[2018-09-14] MEDS: GABAPENTIN 300 MG CAPSULE PO ×3 (08:37→20:44)
--- NOTE | 2018-09-14 09:44 | PT.IPTN ---
Current Diagnoses Morbid (severe) obesity due to excess calories (09/03/18) Opioid dependence, uncomplicated (09/03/18) Anxiety disorder, unspecified (09/03/18) Obstructive sleep apnea (adult) (pediatric) (09/03/18) Unspecified asthma with (acute) exacerbation (09/03/18) Unspecified asthma, uncomplicated (09/03/18) Cutaneous abscess of buttock (09/03/18) Cellulitis of buttock (09/03/18) Local infection of the skin and subcutaneous tissue, unspecified (09/03/18) Pressure ulcer of unspecified buttock, stage 2 (09/03/18) Pressure ulcer of unspecified buttock, unspecified stage (09/03/18) Pressure ulcer of unspecified site, unspecified stage (09/03/18) Inflammatory disorders of scrotum (09/03/18) Physical Therapy Treatment Note M2 PT-IP Current Condition Start: 09/03/18 16:01 Freq: NEEDED Status: Active Protocol: Document 09/11/18 11:31 RCC (Rec: 09/11/18 12:55 RCC [id number]) Physical Therapy Current Condition Current Condition Evaluation Date 09/04/18 Treatment Diagnosis rectal bleeding, impaired activity tolerance Precautions Other Precautions wounds to rectum and scrotum M3 PT-IP Subjective Start: 09/03/18 16:01 Freq: NEEDED Status: Active Protocol: Document 09/14/18 09:42 LJ (Rec: 09/14/18 09:44 LJ [id number]) Subjective Physical Therapy Visit Type Type Patient Refusal Notes pt states he will ambulate after lunch. Spoke with nursing to coordinate breathing tx prior to ambulation in afternoon to discourage reasons for refusing to ambulate in hallway M4 PT-IP Mobility and Gait Start: 09/03/18 16:01 Freq: NEEDED Status: Active Protocol: Document 09/12/18 12:55 LJ (Rec: 09/12/18 13:28 LJ [id number]) PT-Bed Mobility Assessment Supine to Sit Supine to Sit Independent Bedrails Sit to Supine Sit to Supine Standby Assistance Scooting Scooting to Edge of Bed Standby Assistance Scooting Up and Down in Bed Standby Assistance PT-Transfer Assessment Sit to and From Stand Sit to and from Stand Standby Assistance Equipment Transfer Assistive Device Axillary Crutches Transfers Transfer Destination Bed Bedside Commode Transfer Technique Stand Step Pivot Transfer Ability Level of Assist Standby Assistance Comments Mobility Comments Pt indep-SBA for bed mobility and trnsfers. Demonstrates impulsive movements Gait Assessment Gait Gait Assistance Required: Standby Assistance Distance (Feet) 100 Assistive Devices Assistive Device Axillary Crutches Gait Deviations General Gait Pattern Decreased Feet Clearance Flexed Trunk Wide Based Gait Factors Limiting Gait Function Factors Limiting Gait Function Decreased Activity Tolerance Decreased Strength Pain Poor Safety Awareness Respiratory Distress Comments Gait Comments Pt assisted with donning gowns for ambulation in hallway. Increased ambulation from 35' to 100' in hallway using ax. crutches brought from home. Pt states he uses crutches at home more than FWW. Pt st on commode while OINTMENT MILL TENDER and this CHANNEL MAN assisted with bed change. Left pt on commode with OINTMENT MILL TENDER present. M5 PT-IP Objective Assessments Start: 09/03/18 16:01 Freq: NEEDED Status: Active Protocol: Document 09/04/18 12:50 RCC (Rec: 09/04/18 14:15 RCC [id number]) Orientation Orientation/Cognition Level of Alertness Alert Language Function Ability No Deficits Noted Strength Comments Strength Comments hip flexion at least 3/5 but unable to lift BLEs without assistance back to bed Coordination Assessment Gross Coordination Gross Coordination WNL M6 PT-IP Treatment Start: 09/03/18 16:01 Freq: NEEDED Status: Active Protocol: Document 09/12/18 12:55 LJ (Rec: 09/12/18 13:28 LJ [id number]) Physical Therapy Treatment Education Education Provided Safety Other Treatments Other Treatment Performed Education for safe use of axillary cutches and increasing distance in gait with each treatment M7 PT-IP Assessment and Plan Start: 09/03/18 16:01 Freq: NEEDED Status: Active Protocol: Document 09/12/18 12:55 LJ (Rec: 09/12/18 13:28 LJ [id number]) PT Summary Assessment and Plan Summary Assessment Summary Pt able to increase gait distance significantly in hallway using crutches brought from home. Requires cueing to lift crutches and place properly in front of him prior to stepping forward.Also requires cues for pacing and posture. Goals Bed Mobility Goal Independent Transfer Goal Independent Gait Goal Standby Assistance Front Wheel Walker Gait Distance 50 Days to Meet Goals 10 Frequency of Treatment Frequency Of Treatment Once a Day Recommendations To Nursing Amount of Assist Needed 1 Person Assist Discharge Recommendations PT Discharge Recommendations SNF Rehab Other Discharge Recommendations home with assist and HH if unable to be placed in SNF rehab.
[2018-09-14] MEDS: diphenhydrAMINE 25 MG TABLET PO ×2 (12:46→20:44)
--- NOTE | 2018-09-14 14:25 | PT.IPTN ---
Current Diagnoses Morbid (severe) obesity due to excess calories (09/03/18) Opioid dependence, uncomplicated (09/03/18) Anxiety disorder, unspecified (09/03/18) Obstructive sleep apnea (adult) (pediatric) (09/03/18) Unspecified asthma with (acute) exacerbation (09/03/18) Unspecified asthma, uncomplicated (09/03/18) Cutaneous abscess of buttock (09/03/18) Cellulitis of buttock (09/03/18) Local infection of the skin and subcutaneous tissue, unspecified (09/03/18) Pressure ulcer of unspecified buttock, stage 2 (09/03/18) Pressure ulcer of unspecified buttock, unspecified stage (09/03/18) Pressure ulcer of unspecified site, unspecified stage (09/03/18) Inflammatory disorders of scrotum (09/03/18) Physical Therapy Treatment Note M2 PT-IP Current Condition Start: 09/03/18 16:01 Freq: NEEDED Status: Active Protocol: Document 09/11/18 11:31 RCC (Rec: 09/11/18 12:55 RCC [id number]) Physical Therapy Current Condition Current Condition Evaluation Date 09/04/18 Treatment Diagnosis rectal bleeding, impaired activity tolerance Precautions Other Precautions wounds to rectum and scrotum M3 PT-IP Subjective Start: 09/03/18 16:01 Freq: NEEDED Status: Active Protocol: Document 09/14/18 14:18 GGD (Rec: 09/14/18 14:25 GGD [id number]) Subjective Physical Therapy Visit Type Type Treatment Note Visit Start Time 13:55 Visit Stop Time 14:15 Total Visit Minutes 20 Number of SHIFT LEADER Visits 2 Physical Therapy Visit Comments Patient Comments Pt wiling to ambulate in [place]. M4 PT-IP Mobility and Gait Start: 09/03/18 16:01 Freq: NEEDED Status: Active Protocol: Document 09/14/18 14:18 GGD (Rec: 09/14/18 14:25 GGD [id number]) PT-Bed Mobility Assessment Rolling Type of Rolling Roll to Left Level of Assist Standby Assistance Supine to Sit Supine to Sit Independent Bedrails Sit to Supine Sit to Supine Standby Assistance Scooting Scooting to Edge of Bed Standby Assistance Scooting Up and Down in Bed Standby Assistance PT-Transfer Assessment Sit to and From Stand Sit to and from Stand Standby Assistance Equipment Transfer Assistive Device Axillary Crutches Transfers Transfer Destination Bed Bedside Commode Transfer Ability Level of Assist Standby Assistance Gait Assessment Gait Gait Assistance Required: Standby Assistance Distance (Feet) 80 Assistive Devices Assistive Device Axillary Crutches Gait Deviations General Gait Pattern Decreased Feet Clearance Flexed Trunk Wide Based Gait Factors Limiting Gait Function Factors Limiting Gait Function Decreased Activity Tolerance Decreased Strength Pain Poor Safety Awareness Respiratory Distress M5 PT-IP Objective Assessments Start: 09/03/18 16:01 Freq: NEEDED Status: Active Protocol: Document 09/04/18 12:50 RCC (Rec: 09/04/18 14:15 RCC [id number]) Orientation Orientation/Cognition Level of Alertness Alert Language Function Ability No Deficits Noted Strength Comments Strength Comments hip flexion at least 3/5 but unable to lift BLEs without assistance back to bed Coordination Assessment Gross Coordination Gross Coordination WNL M6 PT-IP Treatment Start: 09/03/18 16:01 Freq: NEEDED Status: Active Protocol: Document 09/12/18 12:55 LJ (Rec: 09/12/18 13:28 LJ [id number]) Physical Therapy Treatment Education Education Provided Safety Other Treatments Other Treatment Performed Education for safe use of axillary cutches and increasing distance in gait with each treatment M7 PT-IP Assessment and Plan Start: 09/03/18 16:01 Freq: NEEDED Status: Active Protocol: Document 09/14/18 14:18 GGD (Rec: 09/14/18 14:25 GGD [id number]) PT Summary Assessment and Plan Summary Assessment Summary Pt able to ambulate in hallway . He is impulsive with mobility and need cues for safety and gait sequencing Frequency of Treatment Frequency Of Treatment Once a Day Recommendations To Nursing Amount of Assist Needed Standby Assistance Discharge Recommendations PT Discharge Recommendations SNF Rehab Other Discharge Recommendations home with assist and HH if unable to be placed in SNF rehab.
[2018-09-14] MEDS: ALBUTEROL HFA 60 PUFF/8 GM INH INH (16:32)
--- NOTE | 2018-09-14 19:40 | PC.NURSE ---
Pt picking at skin on heel of foot. The area is actively bleeding. Offered to cover the site and pt refuses. States, can't you just cut this piece off? Thick flap of skin present and looks to be a deeper area at the base. Informed pt that this RN is not able to cut the flap off and that no scissors are available for him to do it either. Again offered to cover it before leaving the room and pt refuses. Will report to primary RN.
--- NOTE | 2018-09-14 20:13 | PC.NURSE ---
DRSG PLACE TO PATIENTS LEFT HEEL,ANAAN ON TOP.
[2018-09-15] MEDS: LORazepam 1 MG TABLET PO (00:06)
[2018-09-15 00:10] VITALS: O2SAT 93
[2018-09-15 04:00] VITALS: O2SAT 92
[2018-09-15 05:35] VITALS: BP 126/75; PULSE 90; RESP 18; TEMP 36.7; O2SAT 91
[2018-09-15] MEDS: diphenhydrAMINE 25 MG TABLET PO ×2 (05:46→11:27)
[2018-09-15] MEDS: OXYCODONE/ACETAMINOPHEN 5/325 TABLET 1 TAB PO (05:46)
[2018-09-15] MEDS: ALBUTEROL/IPRATROPIUM 3 ML AMPUL INH (05:54)
[2018-09-15] MEDS: FLUTICASONE/SALMETEROL 500/50 14 PUFF DISKUS INH (05:55)
[2018-09-15 05:56] VITALS: PULSE 88; RESP 20; O2SAT 98
--- NOTE | 2018-09-15 06:17 | PC.NURSE ---
Talked to the hospitalist regarding healthy snacks option. Verbal order received to have inpatient diet consult. Will report to day RN.
--- NOTE | 2018-09-15 07:16 | PC.NURSE ---
Late Entry for 09/14 Day Shift: Pt had refused PT in the am. Wounds buttocks, scrotum and penis have been visualized and are dry and are not draining at this time. Pt declines any additional care to wounds at this time. A request has been placed with [facility] wound care per Dr. Oliveira for a wound care physician to round on this patient this afternoon and evaluate him for possible discharge home with assistance from either family or home health.
[2018-09-15 08:00] VITALS: BP 131/53; PULSE 87; O2SAT 90; O2SAT 94
--- NOTE | 2018-09-15 09:12 | PC.NURSE ---
Per telephone conversation with Jeimy at [facility] at 0835, pt is cleared by them to go home and care for his wounds with help from family and Home Health if possible. Dr. Neri and JOSÉ LUIS Justice have been made aware.
[2018-09-15] MEDS: GABAPENTIN 300 MG CAPSULE PO (10:01)
[2018-09-15] MEDS: ENOXAPARIN 30 MG/0.3 ML SYRINGE SUBCUT (10:01)
[2018-09-15] MEDS: DULOXETINE 30 MG CAPSULE PO (10:01)
[2018-09-15] MEDS: OLANZapine ODT 10 MG TAB 20 MG PO (10:02)
[2018-09-15] MEDS: TRAMADOL 50 MG TABLET 100 MG PO (10:02)
[2018-09-15] MEDS: METHADONE 10 MG TABLET 95 MG PO (10:02)
[2018-09-15] MEDS: predniSONE 10 MG TABLET PO (11:27)
[2018-09-15 11:53] VITALS: O2SAT 93
--- NOTE | 2018-09-15 11:54 | PT.IPTN ---
Current Diagnoses Morbid (severe) obesity due to excess calories (09/03/18) Opioid dependence, uncomplicated (09/03/18) Anxiety disorder, unspecified (09/03/18) Obstructive sleep apnea (adult) (pediatric) (09/03/18) Unspecified asthma with (acute) exacerbation (09/03/18) Unspecified asthma, uncomplicated (09/03/18) Cutaneous abscess of buttock (09/03/18) Cellulitis of buttock (09/03/18) Local infection of the skin and subcutaneous tissue, unspecified (09/03/18) Pressure ulcer of unspecified buttock, stage 2 (09/03/18) Pressure ulcer of unspecified buttock, unspecified stage (09/03/18) Pressure ulcer of unspecified site, unspecified stage (09/03/18) Inflammatory disorders of scrotum (09/03/18) Physical Therapy Treatment Note M2 PT-IP Current Condition Start: 09/03/18 16:01 Freq: NEEDED Status: Active Protocol: Document 09/11/18 11:31 RCC (Rec: 09/11/18 12:55 RCC [id number]) Physical Therapy Current Condition Current Condition Evaluation Date 09/04/18 Treatment Diagnosis rectal bleeding, impaired activity tolerance Precautions Other Precautions wounds to rectum and scrotum M3 PT-IP Subjective Start: 09/03/18 16:01 Freq: NEEDED Status: Active Protocol: Document 09/15/18 11:53 AB (Rec: 09/15/18 11:54 AB [id number]) Subjective Physical Therapy Visit Type Type Patient Refusal Notes checked on pt ~ 4 x and pt has refused PT. stating that he does not want to do it today and that his feet are hurting and that he is going home today. informed nurse. M4 PT-IP Mobility and Gait Start: 09/03/18 16:01 Freq: NEEDED Status: Active Protocol: Document 09/14/18 14:18 GGD (Rec: 09/14/18 14:25 GGD [id number]) PT-Bed Mobility Assessment Rolling Type of Rolling Roll to Left Level of Assist Standby Assistance Supine to Sit Supine to Sit Independent Bedrails Sit to Supine Sit to Supine Standby Assistance Scooting Scooting to Edge of Bed Standby Assistance Scooting Up and Down in Bed Standby Assistance PT-Transfer Assessment Sit to and From Stand Sit to and from Stand Standby Assistance Equipment Transfer Assistive Device Axillary Crutches Transfers Transfer Destination Bed Bedside Commode Transfer Ability Level of Assist Standby Assistance Gait Assessment Gait Gait Assistance Required: Standby Assistance Distance (Feet) 80 Assistive Devices Assistive Device Axillary Crutches Gait Deviations General Gait Pattern Decreased Feet Clearance Flexed Trunk Wide Based Gait Factors Limiting Gait Function Factors Limiting Gait Function Decreased Activity Tolerance Decreased Strength Pain Poor Safety Awareness Respiratory Distress M5 PT-IP Objective Assessments Start: 09/03/18 16:01 Freq: NEEDED Status: Active Protocol: Document 09/04/18 12:50 RCC (Rec: 09/04/18 14:15 RCC [id number]) Orientation Orientation/Cognition Level of Alertness Alert Language Function Ability No Deficits Noted Strength Comments Strength Comments hip flexion at least 3/5 but unable to lift BLEs without assistance back to bed Coordination Assessment Gross Coordination Gross Coordination WNL M6 PT-IP Treatment Start: 09/03/18 16:01 Freq: NEEDED Status: Active Protocol: Document 09/12/18 12:55 LJ (Rec: 09/12/18 13:28 LJ [id number]) Physical Therapy Treatment Education Education Provided Safety Other Treatments Other Treatment Performed Education for safe use of axillary cutches and increasing distance in gait with each treatment M7 PT-IP Assessment and Plan Start: 09/03/18 16:01 Freq: NEEDED Status: Active Protocol: Document 09/14/18 14:18 GGD (Rec: 09/14/18 14:25 GGD [id number]) PT Summary Assessment and Plan Summary Assessment Summary Pt able to ambulate in hallway . He is impulsive with mobility and need cues for safety and gait sequencing Frequency of Treatment Frequency Of Treatment Once a Day Recommendations To Nursing Amount of Assist Needed Standby Assistance Discharge Recommendations PT Discharge Recommendations SNF Rehab Other Discharge Recommendations home with assist and HH if unable to be placed in SNF rehab.
--- NOTE | 2018-09-15 13:49 | PC.NURSE ---
Pt has received discharge orders to leave the care of the hospital and return home to further his rehabilitation. Pt has been given wound dressings and supplies to continue his wound care himself with assistance from his family. He has been instructed to follow up with [facility] wound care. All pts belongings including unidentified meds stored in the pharmacy and valuables from the safe have been given to the patient. Prescriptions and discharge paperwork has been provided to the patient and placed in personal bags which he took with him. Pt was escorted out of the hospital at approximately 1300.
--- NOTE | 2018-09-15 13:54 | PM.DS.1 ---
History of Present Illness Date Patient Seen: 09/15/18 Time Patient Seen: 08:00 Chief complaint: Rectal Bleeding Narrative: History of Present Illness Date Patient Seen: 09/03/18 Chief complaint: Rectal Bleeding Narrative: The patient is a 37-year-old male with PMH significant for asthma, anxiety, morbid obesity (BMI 79.5), obesity hypoventilation syndrome, RAJESH, methadone dependence, hypothyroidism, h/o nephrolithiasis (h/o basket retrieval and lithotripsy), recurrent sacral and perineal ulcers, and marijuana use. Patient presented to the ED on 09/03/2018 at 1:14 a.m. out of concern for pain in the sacral area with associated bleeding. Patient notes having recurrent sacral wounds. He states the most recent wound has been in place for a month. Patient is morbidly obese, BMI 85. His mobility is extremely limited. There is likely degree of sensory deficit and circulatory disturbance. Mild-moderate serosanguenous drainage without purulence overt purulence. Odor surrounding the patient is quite prominent. Known to have prior history of stage III sacral ulcers, not able to tell me how they were treated in the past. Reports current incontinence of urine, but not stool. Denies fever and chills. Denies chest pain, palpitations, dizziness, and lightheadedness. He does have underlying asthma with frequent exacerbation. No vomiting or diarrhea. Patient's main discomfort today is the degree pain in the area. No cough, no recent illness or hospitalizations. On presentation patient appear to be in a septic state. There is no hemodynamic instability he did have mildly elevated pulse at 1:06 a.m. No leukocytosis. No overt electrolyte abnormalities. Procalcitonin WNL. Lactate normal. Discharge Providers Date of admission: 09/03/18 04:34 Primary care physician: Gabe Meraz PA-C Consults: 09/03/18 04:53 Consult to Discharge Planning Routine Comment: Consult to Wound Care Stat Comment: Consulting Provider: [facility] 09/03/18 09:49 Consult to Occupational Therapy Evaluate & Treat Comment: Physician Instructions: Evaluate and treat Consult to Physical Therapy Evaluate & Treat Comment: Physician Instructions: Evaluate and Treat 09/03/18 16:11 Consult to Respiratory Therapy Evaluate & Treat Comment: Physician Instructions: Evaluate and treat 09/15/18 06:04 Consult to Dietitian, Adult Routine Comment: Pt. requesting snacks frequently,MD ordered limits Reason For Exam: Wt. reduction & heatlhy snacks options. 09/15/18 10:57 Consult to Home Health Routine Comment: Scrotal ulcers Reason For Exam: Home Health for RN, PT, ENVIRONMENTAL COMPLIANCE INSPECTOR, and MEDICAL RECRUITER Discharge provider: Tawny Farrell DO Discharge Date: 09/15/18 Summary Discharge Diagnosis: SACRAL/SCROTAL AREA PRESSURE ULCERATION POOR HYGIENE MORBID OBESITY OBESITY HYPERV SYNDR ASTHMA PER HX CHRONIC PAIN SYNDROME OPIOID DEPENDENCE HYPOTHYROIDISM ANEMIA OF CD THROMBOCYTOPENIA Hospital Course: - PATIENT ADMITTED TO [facility] WITH MULTIPLE WOUNDS TO SACRUM/SCROTUM AREA - THOSE WERE CHRONIC AND LIKELY DUE TO PRESSURE/VENOUS IN NATURE - PATIENT WAS TREATED WITH ABX ORALLY - HE WAS GIVEN EXTENSIVE COUNSELING REGARDING HIS POOR HYGIENE - HE WAS REFERRED TO WOUND CARE WHICH WILL CONTINUE TO SEE PATIENT AFTER DC; F/U APPOINTMENT SET PER CM/SW - PATIENT WILL NEED TO BE FOLLOWED CLOSELY BY PCP AND POSSIBLY REFERRED TO SURGERY FOR POSS BARIATRIC SURGERY A LIFE SAVING MEASURE - WILL DEFER TO OUTPATIENT PROVIDERS FOR REFERRAL - EXTENSIVE COUNSELING GIVEN REGARDING DIET Status at Discharge Cognitive/behavioral status at discharge: STALE AT BASELINE Functional status at discharge: uses cane/walker Overall status at discharge: patient is back to baseline Time Spent with Patient Greater than 30 minutes Exam Vital Signs (past 8 hours): - 09/15/18 05:56 09/15/18 08:00 09/15/18 11:53 Pulse Rate 88 87 Respiratory Rate 20 Blood Pressure 131/53 L Pulse Oximetry 98 94 93 Fraction of Inspired Oxygen 21 Oxygen Delivery Method Nasal Cannula Oxygen Flow Rate 2 Narrative Exam Narrative: NO ACUTE DISTRESS. PATIENT IS ALERT ORIENTED X3. MORBIDLY OBESE VITAL SIGNS STABLE HEAD ATRAUMATIC NORMOCEPHALIC NECK : SUPPLE WITHOUT ADENOPATHY NO CAROTID BRUITS EYE: EOMI, PERRLA, NORMAL CONJUNCTIVA; NO JAUNDICE CHEST: REGULAR RATE. NO RUBS. PMI IS NON DISPLACED. NO MURMURS; NORMAL S1-S2 PULMONARY: DECREASED BS OVER THE BASES. BIBASILAR CRACKLES NOTED; NO INCREASED DULLNESS TO PERCUSSION; NO WHEZZING ABDOMEN: SOFT. OBESE; NONTENDER. NONDISTENDED. BOWEL SOUNDS ARE PRESENT IN ALL 4 QUADRANTS. EXTREMITIES: 2+ EDEMA. NON PITTING . NO CYANOSIS CLUBBING NOTED. NEURO: CRANIAL NERVES 2-12 GROSSLY INTACT. NO FOCAL NEUROLOGICAL DEFICIT NOTED. MSK: NORMAL RANGE OF MOTION FOR AGE. NO JOINT EFFUSION. SKIN: MULTIPLE PRESSURE ULCERS TO BUTTOCKS , SACRAL AND SCROTUM; SEROUS DRAINAGE; APPEARS CHRONIC IN NATURE : NORMAL EXTERNAL GENITALIA. PSYCH : POOR INSIGHTS. ALERT AWAKE ORIENTED X3 Objective Labs Result Diagrams: 09/14/18 05:20 09/14/18 05:20 Discharge Plan Discharge Plan Patient Disposition: Home Health Service Discharge comment: DC HOME WITH HH ACT [facility] CARDIAC DIET F/U WITH PCP AND WOUND CARE CENTER 1-2 WEEKS Discharge Med Rec/Prescriptions Prescriptions: New gabapentin [Neurontin] 300 mg Capsule 300 mg PO TID Qty: 180 RF: 0 nystatin [Nystop] 100,000 unit/gram Powder 1 applic Topical BID PRN (Reason: Rash) 10 Days Qty: 1 RF: 0 duloxetine [Cymbalta] 30 mg Capsule,Delayed Release(Dr/Ec) 30 mg PO DAILY Qty: 90 RF: 0 hydrocodone-acetaminophen [Dodson] 7.5-325 mg tablet 1 tab PO Q4-6H PRN (Reason: pain) Qty: 20 RF: 0 tramadol 50 mg tablet 50 mg PO Q4-6H PRN (Reason: pain (scale score 4-6)) Qty: 30 RF: 0 Continue fluticasone-salmeterol [Advair Diskus] 500 MCG/50 MCG blister with device 1 puff INH BID Qty: 2 RF: 5 methadone 10 MG tablet 95 mg PO QDAY Qty: 0 RF: 0 prednisone 10 mg tablet 10 mg PO BID RF: 0 lorazepam [Ativan] 1 mg tablet 1 mg PO BID-TID PRN (Reason: anxiety) Qty: 10 RF: 0 olanzapine 20 mg tablet 20 mg PO DAILY Qty: 10 RF: 0 albuterol sulfate 90 mcg/actuation HFA aerosol inhaler 2 puff INHALATION Q4-6H PRN (Reason: shortness of breath or wheezing) Qty: 18 RF: 0 albuterol sulfate 2.5 MG/3 ML solution for nebulization 3 ml INH Q4HP PRN (Reason: Wheezing) Qty: 360 RF: 0 Follow up/Referrals: Gabe Meraz PA-C [Primary Care Provider] - (please call & schedule a follow up appointment with your primary care provider for 1-2 weeks from discharge ) Scott Moncada MD [Physician] - (appt:09/19 @ 11:30 @ wound care clinic @ [facility] [phone]) Provider Discharge Instructions Diet: Carb-consistent/Diabetic, Low-fat and Low-cholesterol Skin/Wound/Dressing Care Report to your healthcare provider any signs of infection, such as:: chills, fever, night sweats, increased pain, unusual drainage and unusual redness Visit Report/Discharge Packet Instructions: How to Prevent Pressure Ulcers, DI for Pressure Sores Visit Report Forms: Stroke Signs & Symptoms Discharge Data Primary Care Provider: Gabe Meraz Attending Provider: Josep Phillips Admit Date/Time: 09/03/18 04:34 Discharges patient from system. Discharge Date/Time: 09/15/18 13:00 Quality VTE Deep Vein Thrombosis/Pulmonary Embolism Present on Admission: No
--- NOTE | 2018-09-15 14:05 | P.DS_ITS ---
History of Present Illness Date Patient Seen: 09/15/18 Time Patient Seen: 08:00 Chief complaint: Rectal Bleeding Narrative: History of Present Illness Date Patient Seen: 09/03/18 Chief complaint: Rectal Bleeding Narrative: The patient is a 37-year-old male with PMH significant for asthma, anxiety, morbid obesity (BMI 79.5), obesity hypoventilation syndrome, RAJESH, methadone dependence, hypothyroidism, h/o nephrolithiasis (h/o basket retrieval and lithotripsy), recurrent sacral and perineal ulcers, and marijuana use. Patient presented to the ED on 09/03/2018 at 1:14 a.m. out of concern for pain in the sacral area with associated bleeding. Patient notes having recurrent sacral wounds. He states the most recent wound has been in place for a month. Patient is morbidly obese, BMI 85. His mobility is extremely limited. There is likely degree of sensory deficit and circulatory disturbance. Mild-moderate serosanguenous drainage without purulence overt purulence. Odor surrounding the patient is quite prominent. Known to have prior history of stage III sacral ulcers, not able to tell me how they were treated in the past. Reports current incontinence of urine, but not stool. Denies fever and chills. Denies chest pain, palpitations, dizziness, and lightheadedness. He does have underlying asthma with frequent exacerbation. No vomiting or diarrhea. Patient's main discomfort today is the degree pain in the area. No cough, no recent illness or hospitalizations. On presentation patient appear to be in a septic state. There is no hemodynamic instability he did have mildly elevated pulse at 1:06 a.m. No leukocytosis. No overt electrolyte abnormalities. Procalcitonin WNL. Lactate normal. Discharge Providers Date of admission: 09/03/18 04:34 Primary care physician: Gabe Meraz PA-C Consults: 09/03/18 04:53 Consult to Discharge Planning Routine Comment: Consult to Wound Care Stat Comment: Consulting Provider: [facility] 09/03/18 09:49 Consult to Occupational Therapy Evaluate & Treat Comment: Physician Instructions: Evaluate and treat Consult to Physical Therapy Evaluate & Treat Comment: Physician Instructions: Evaluate and Treat 09/03/18 16:11 Consult to Respiratory Therapy Evaluate & Treat Comment: Physician Instructions: Evaluate and treat 09/15/18 06:04 Consult to Dietitian, Adult Routine Comment: Pt. requesting snacks frequently,MD ordered limits Reason For Exam: Wt. reduction & heatlhy snacks options. 09/15/18 10:57 Consult to Home Health Routine Comment: Scrotal ulcers Reason For Exam: Home Health for RN, PT, BUILDING CARPENTER, and PENSIONHOLDER INFORMATION CLERK Discharge provider: Tawny Farrell DO Discharge Date: 09/15/18 Summary Discharge Diagnosis: SACRAL/SCROTAL AREA PRESSURE ULCERATION POOR HYGIENE MORBID OBESITY OBESITY HYPERV SYNDR ASTHMA PER HX CHRONIC PAIN SYNDROME OPIOID DEPENDENCE HYPOTHYROIDISM ANEMIA OF CD THROMBOCYTOPENIA Hospital Course: - PATIENT ADMITTED TO [facility] WITH MULTIPLE WOUNDS TO SACRUM/SCROTUM AREA - THOSE WERE CHRONIC AND LIKELY DUE TO PRESSURE/VENOUS IN NATURE - PATIENT WAS TREATED WITH ABX ORALLY - HE WAS GIVEN EXTENSIVE COUNSELING REGARDING HIS POOR HYGIENE - HE WAS REFERRED TO WOUND CARE WHICH WILL CONTINUE TO SEE PATIENT AFTER DC; F/U APPOINTMENT SET PER CM/SW - PATIENT WILL NEED TO BE FOLLOWED CLOSELY BY PCP AND POSSIBLY REFERRED TO SURGERY FOR POSS BARIATRIC SURGERY A LIFE SAVING MEASURE - WILL DEFER TO OUTPATIENT PROVIDERS FOR REFERRAL - EXTENSIVE COUNSELING GIVEN REGARDING DIET Status at Discharge Cognitive/behavioral status at discharge: STALE AT BASELINE Functional status at discharge: uses cane/walker Overall status at discharge: patient is back to baseline Time Spent with Patient Greater than 30 minutes Exam Vital Signs (past 8 hours): - 09/15/18 05:56 09/15/18 08:00 09/15/18 11:53 Pulse Rate 88 87 Respiratory Rate 20 Blood Pressure 131/53 L Pulse Oximetry 98 94 93 Fraction of Inspired Oxygen 21 Oxygen Delivery Method Nasal Cannula Oxygen Flow Rate 2 Narrative Exam Narrative: NO ACUTE DISTRESS. PATIENT IS ALERT ORIENTED X3. MORBIDLY OBESE VITAL SIGNS STABLE HEAD ATRAUMATIC NORMOCEPHALIC NECK : SUPPLE WITHOUT ADENOPATHY NO CAROTID BRUITS EYE: EOMI, PERRLA, NORMAL CONJUNCTIVA; NO JAUNDICE CHEST: REGULAR RATE. NO RUBS. PMI IS NON DISPLACED. NO MURMURS; NORMAL S1- S2 PULMONARY: DECREASED BS OVER THE BASES. BIBASILAR CRACKLES NOTED; NO INCREASED DULLNESS TO PERCUSSION; NO WHEZZING ABDOMEN: SOFT. OBESE; NONTENDER. NONDISTENDED. BOWEL SOUNDS ARE PRESENT IN ALL 4 QUADRANTS. EXTREMITIES: 2+ EDEMA. NON PITTING . NO CYANOSIS CLUBBING NOTED. NEURO: CRANIAL NERVES 2-12 GROSSLY INTACT. NO FOCAL NEUROLOGICAL DEFICIT NOTED. MSK: NORMAL RANGE OF MOTION FOR AGE. NO JOINT EFFUSION. SKIN: MULTIPLE PRESSURE ULCERS TO BUTTOCKS , SACRAL AND SCROTUM; SEROUS DRAINAGE; APPEARS CHRONIC IN NATURE : NORMAL EXTERNAL GENITALIA. PSYCH : POOR INSIGHTS. ALERT AWAKE ORIENTED X3 Objective Labs Result Diagrams: 09/14/18 05:20 09/14/18 05:20 Discharge Plan Discharge Plan Patient Disposition: Home Health Service Discharge comment: DC HOME WITH HH [facility] DIET F/U WITH PCP AND WOUND CARE CENTER 1-2 WEEKS Discharge Med Rec/Prescriptions Prescriptions: New gabapentin [Neurontin] 300 mg Capsule 300 mg PO TID Qty: 180 RF: 0 nystatin [Nystop] 100,000 unit/gram Powder 1 applic Topical BID PRN (Reason: Rash) 10 Days Qty: 1 RF: 0 duloxetine [Cymbalta] 30 mg Capsule,Delayed Release(Dr/Ec) 30 mg PO DAILY Qty: 90 RF: 0 hydrocodone-acetaminophen [[place]] 7.5-325 mg tablet 1 tab PO Q4-6H PRN (Reason: pain) Qty: 20 RF: 0 tramadol 50 mg tablet 50 mg PO Q4-6H PRN (Reason: pain (scale score 4-6)) Qty: 30 RF: 0 Continue fluticasone-salmeterol [Advair Diskus] 500 MCG/50 MCG blister with device 1 puff INH BID Qty: 2 RF: 5 methadone 10 MG tablet 95 mg PO QDAY Qty: 0 RF: 0 prednisone 10 mg tablet 10 mg PO BID RF: 0 lorazepam [Ativan] 1 mg tablet 1 mg PO BID-TID PRN (Reason: anxiety) Qty: 10 RF: 0 olanzapine 20 mg tablet 20 mg PO DAILY Qty: 10 RF: 0 albuterol sulfate 90 mcg/actuation HFA aerosol inhaler 2 puff INHALATION Q4-6H PRN (Reason: shortness of breath or wheezing) Qty: 18 RF: 0 albuterol sulfate 2.5 MG/3 ML solution for nebulization 3 ml INH Q4HP PRN (Reason: Wheezing) Qty: 360 RF: 0 Follow up/Referrals: Gabe Meraz PA-C [Primary Care Provider] - (please call & schedule a follow up appointment with your primary care provider for 1-2 weeks from discharge ) Scott Moncada MD [Physician] - (appt:09/19 @ 11:30 @ wound care clinic @ [facility] [phone]) Provider Discharge Instructions Diet: Carb-consistent/Diabetic, Low-fat and Low-cholesterol Skin/Wound/Dressing Care Report to your healthcare provider any signs of infection, such as:: chills, fever, night sweats, increased pain, unusual drainage and unusual redness Visit Report/Discharge Packet Instructions: How to Prevent Pressure Ulcers, DI for Pressure Sores Visit Report Forms: Stroke Signs & Symptoms Discharge Data Primary Care Provider: Gabe Meraz Attending Provider: Josep Phillips Admit Date/Time: 09/03/18 04:34 Discharges patient from system. Discharge Date/Time: 09/15/18 13:00 Quality VTE Deep Vein Thrombosis/Pulmonary Embolism Present on Admission: No
--- NOTE | 2018-09-15 16:20 | CM.DPC ---
DCP/continued: Received notification from MD in AM rounds that patient stable to d/c home today. Spoke with RN/Linsey whom confirms that patient going to/from bathroom on his own. MD inquiring about HH. SCHOOL AGE TEACHER made an attempt with [facility]. Both agencies declined because of patient's long history of non-compliance. MD in aware and in agreement that patient continues to be medically stable for discharge today. Outpatient appointment scheduled for 09-19-18 at [facility] at 11:30AM. Patient provided with written instructions upon discharge. Patient's friend in agreement to provide patient with transportation home. P: Home today. Patient encouraged to make appointment on 09-19 and comply with medical instructions. JOSÉ LUIS Noriega
== END 2018-09-15 13:00 | disposition home health service (06) | DRG 593 ==
LOC: ED 02:20 → AC 04:35
PROVIDERS: Hospitalist; Internal Medicine; Admitting Provider Nurse Practitioner Gerontology; Emergency Provider Emergency Medicine; PCP Physician Assistant; Visit Provider Nurse Practitioner Gerontology
DX: L89.892 Pressure ulcer of other site, stage 2 (principal); Z68.45 Body mass index [BMI] 70 or greater, adult; F11.20 Opioid dependence, uncomplicated; J45.901 Unspecified asthma with (acute) exacerbation; L03.317 Cellulitis of buttock; E66.2 Morbid (severe) obesity with alveolar hypoventilation; N49.2 Inflammatory disorders of scrotum; L89.159 Pressure ulcer of sacral region, unspecified stage; G89.4 Chronic pain syndrome; L89.302 Pressure ulcer of unspecified buttock, stage 2; F41.9 Anxiety disorder, unspecified; E03.9 Hypothyroidism, unspecified; F12.90 Cannabis use, unspecified, uncomplicated; D69.6 Thrombocytopenia, unspecified; D63.8 Anemia in other chronic diseases classified elsewhere; R46.0 Very low level of personal hygiene
CPT/HCPCS: 36415; 36569; 36592; 36600; 80048; 80053; 82805; 83605; 83735; 84145; 85025; 87040; 87070; 87075; 87077; 87147; 87186; 87205; 93005; 93010; 94150; 94640; 94660; 94760; 96365; 96375; 97110; 97116; 97161; 97166; 97530; 97535; 99283; 99284; J1170; J1642; J1650; J2060; J3370; J7050; J7613

== ENCOUNTER 2018-10-02 12:18 | Observation (INO) | payer MEDICAID, OTHER, SELFPAY ==
[2018-09-03 05:02] VITALS: BMI 85.8
[2018-10-02] VITALS (10 sets, daily range): BP systolic 114–145; BP diastolic 56–79; PULSE 90–112; RESP 14–22; TEMP 36.8–36.9; O2SAT 86–96; BMI 85.4
[2018-10-02] MEDS: ALBUTEROL/IPRATROPIUM 3 ML AMPUL INH (13:20)
--- NOTE | 2018-10-02 13:27 | ED.WOUNDLAC ---
HPI - Wound/Laceration <LIZBETH Malone - Last Filed: 10/02/18 21:53> General Chief Complaint: Wound/Laceration Stated Complaint: Sore Knee Time Seen by Provider: 10/02/18 13:11 Source: patient Mode of arrival: wheelchair Limitations: no limitations History of Present Illness HPI narrative: 37-year-old male with history of morbid obesity and multiple comorbidities here for worsening pain to the area of his decubitus ulcers along his buttocks thighs and perineal area. He was admitted for this last month and was discharged to wound care. He reports that he has missed wound care appointment and has not been to see them in over the last week. He reports worsening pressure ulcers to his buttocks perineal area and thighs with worsening pain. No known fever. He does have serosanguineous drainage from these regions. He reports he is currently not taking any antibiotics. He does state that he did scratch the area accidentally causing a some bleeding. Related Data Home Medications Medication Instructions Recorded Confirmed methadone 95 mg PO QDAY #0 05/07/17 10/02/18 prednisone 10 mg PO BID 08/05/18 10/02/18 Previous Rx's Medication Instructions Recorded fluticasone-salmeterol [Advair 1 puff INH BID #2 inh 04/28/17 Diskus] albuterol sulfate 2 puff INHALATION Q4-6H PRN #18 07/11/18 gram albuterol sulfate 3 ml INH Q4HP PRN #360 ml 07/27/18 lorazepam [Ativan] 1 mg PO BID-TID PRN #10 tab 08/26/18 olanzapine 20 mg PO DAILY #10 tab 08/26/18 duloxetine [Cymbalta] 30 mg PO DAILY #90 cap 09/15/18 gabapentin [Neurontin] 300 mg PO TID #180 cap 09/15/18 hydrocodone-acetaminophen [[place]] 1 tab PO Q4-6H PRN #20 tab 09/15/18 Allergies Allergy/AdvReac Type Severity Reaction Status Date / Time NSAIDS (Non-Steroidal Allergy Unknown ASTHMA Verified 10/02/18 12:29 Anti-Inflamma FLARE UPS [NSAIDS (NON-STEROIDAL ANTI-INFLAMMA] ibuprofen AdvReac Mild nausea, GI Verified 10/02/18 12:29 upset Review of Systems <LIZBETH Malone - Last Filed: 10/02/18 21:53> Constitutional Denies chills, Denies fever(s), Denies lethargy and Denies weakness Eyes Denies change in vision, Denies eye discharge, Denies irritation and Denies loss of vision ENT Ears, Nose, Mouth, and Throat: Denies change in voice, Denies neck pain and Denies sore throat Cardiovascular Denies dyspnea and Denies dyspnea on exertion Respiratory Denies cough, Denies dyspnea, Denies dyspnea on exertion and Denies wheezing Gastrointestinal Gastrointestinal: Denies abdominal pain, Denies change in bowel habits, Denies diarrhea, Denies nausea and Denies vomiting Genitourinary Denies hematuria, Denies flank pain, Denies urinary incontinence and Denies urinary urgency Musculoskeletal Denies neck pain Integumentary/Breasts Comments: Worsening pressure ulcers to the buttocks perineal and thigh area bilaterally Neurologic Denies loss of vision and Denies weakness Allergic/Immunologic Denies wheezing Exam <LIZBETH Malone - Last Filed: 10/02/18 21:53> Initial Vital Signs Initial Vital Signs: Vital Signs Temperature 98.4 F 10/02/18 12:30 Pulse Rate 112 H 10/02/18 12:30 Respiratory Rate 22 10/02/18 12:30 Blood Pressure 145/79 H 10/02/18 12:30 Pulse Oximetry 93 10/02/18 12:30 Const General: cooperative and well developed Nutritional Appearance: well nourished Orientation: alert, awake, oriented x3 and not confused [facility] Mouth: oral mucosae normal and moist mucous membranes Eyes Conjunctivae: conjunctivae normal Sclera: sclerae normal Pupils: PERRL EOM: EOM intact bilaterally Resp Effort & Inspection: normal respiratory effort, able to speak in complete sentences, no respiratory distress and no use of accessory muscles Auscultation: no rales, no rhonchi and wheezes inspiratory wheezes and upper bilaterally Cardio Rate: regular rate Rhythm: regular rhythm Heart Sounds: no click, no gallops, no murmurs and no rubs Pulses: normal peripheral pulses Skin Other: Multiple stage II pressure ulcers to the buttocks peroneal area scrotal area and bilateral thighs. Draining serosanguineous drainage. Tender to palpation. No induration no fluctuance. Wounds do have some surrounding erythema <Concepcion Damian DO - Last Filed: 10/03/18 18:29> Initial Vital Signs Initial Vital Signs: Vital Signs Temperature 98.4 F 10/02/18 12:30 Pulse Rate 112 H 10/02/18 12:30 Respiratory Rate 22 10/02/18 12:30 Blood Pressure 145/79 H 10/02/18 12:30 Pulse Oximetry 93 10/02/18 12:30 Course <LIZBETH Malone - Last Filed: 10/02/18 21:53> Orders Ordered: Hydrocodone Bitart/Acetaminophen ([place] 5/325) 1 tab PO Q4H PRN PRN Reason: pain Last Admin: 10/03/18 18:06 Dose: 1 tab Admin: 10/03/18 14:00 Dose: 1 tab Admin: 10/03/18 08:40 Dose: 1 tab Albuterol (Ventolin Hfa) 2 puff INH Q4H PRN PRN Reason: shortness of breath or wheezing Last Admin: 10/03/18 08:36 Dose: 2 puff Albuterol (Ventolin) 2.5 mg INH Q4H PRN PRN Reason: Wheezing Last Admin: 10/03/18 17:17 Dose: 2.5 mg Admin: 10/03/18 13:26 Dose: 2.5 mg Admin: 10/03/18 05:31 Dose: 2.5 mg Admin: 10/03/18 00:05 Dose: 2.5 mg Admin: 10/02/18 19:39 Dose: 2.5 mg Duloxetine HCl (Cymbalta) 30 mg PO DAILY [facility] Last Admin: 10/03/18 08:13 Dose: 30 mg Gabapentin (Neurontin) 300 mg PO TID [facility] Last Admin: 10/03/18 14:00 Dose: 300 mg Admin: 10/03/18 08:13 Dose: 300 mg Admin: 10/02/18 20:52 Dose: 300 mg Heparin Sodium (Porcine) (Heparin) 5,000 unit SUBCUT Q8H [facility] Last Admin: 10/03/18 16:00 Dose: 5,000 unit Meropenem 2 gm/ Sodium (Chloride) 100 mls @ 200 mls/hr IV Q12H [facility] Last Admin: 10/03/18 17:30 Dose: 200 mls/hr Infusion: 10/03/18 07:57 Dose: 0 mls/hr Admin: 10/03/18 05:17 Dose: 200 mls/hr Infusion: 10/02/18 19:26 Dose: 200 mls/hr Admin: 10/02/18 18:56 Dose: 200 mls/hr Methadone HCl (Methadone) 95 mg PO DAILY [facility] Last Admin: 10/03/18 08:19 Dose: 95 mg Olanzapine (Zyprexa Zydis) 20 mg PO DAILY [facility] Last Admin: 10/03/18 08:13 Dose: 20 mg Ondansetron HCl (Zofran) 4 mg IV Q8HR PRN PRN Reason: Nausea And Vomiting Prednisone (Deltasone) 10 mg PO BID [facility] Last Admin: 10/03/18 13:07 Dose: Not Given Admin: 10/02/18 20:52 Dose: 10 mg Fluticasone/Salmeterol (Advair 500/50 Diskus) 1 puff INH RTBID [facility] Last Admin: 10/03/18 17:17 Dose: Not Given Admin: 10/03/18 05:31 Dose: Not Given Admin: 10/02/18 19:22 Dose: Not Given Discontinued Medications Acetaminophen (Tylenol) 650 mg PO NOW ONE Stop: 10/02/18 13:17 Last Admin: 10/02/18 13:35 Dose: 650 mg Albuterol/Ipratropium (Duoneb) 3 ml INH NOW ONE Stop: 10/02/18 13:29 Last Admin: 10/02/18 13:20 Dose: 3 ml Heparin Sodium (Porcine) (Heparin) 5,000 unit SUBCUT BID [facility] Last Admin: 10/03/18 08:13 Dose: 5,000 unit Admin: 10/02/18 20:52 Dose: 5,000 unit Sodium Chloride (Normal Saline 0.9%) 500 mls @ 1,000 mls/hr IV BOLUS ONE Stop: 10/02/18 14:12 Last Infusion: 10/02/18 14:56 Dose: 0 mls/hr Admin: 10/02/18 13:55 Dose: 1,000 mls/hr Lorazepam (Ativan) 1 mg IV NOW ONE Stop: 10/02/18 13:17 Last Admin: 10/02/18 13:35 Dose: 1 mg Vital Signs - 8 hr 10/03/18 11:33 10/03/18 13:25 10/03/18 17:15 Temperature 98.1 F Pulse Rate 99 H 88 78 Respiratory Rate 20 16 16 Blood Pressure 129/37 L Pulse Oximetry 96 94 93 10/03/18 17:25 Temperature 98.3 F Pulse Rate 81 Respiratory Rate 19 Blood Pressure 132/71 Pulse Oximetry 91 <Concepcion Damian DO - Last Filed: 10/03/18 18:29> Orders Ordered: Hydrocodone Bitart/Acetaminophen ([place] 5/325) 1 tab PO Q4H PRN PRN Reason: pain Last Admin: 10/03/18 18:06 Dose: 1 tab Admin: 10/03/18 14:00 Dose: 1 tab Admin: 10/03/18 08:40 Dose: 1 tab Albuterol (Ventolin Hfa) 2 puff INH Q4H PRN PRN Reason: shortness of breath or wheezing Last Admin: 10/03/18 08:36 Dose: 2 puff Albuterol (Ventolin) 2.5 mg INH Q4H PRN PRN Reason: Wheezing Last Admin: 10/03/18 17:17 Dose: 2.5 mg Admin: 10/03/18 13:26 Dose: 2.5 mg Admin: 10/03/18 05:31 Dose: 2.5 mg Admin: 10/03/18 00:05 Dose: 2.5 mg Admin: 10/02/18 19:39 Dose: 2.5 mg Duloxetine HCl (Cymbalta) 30 mg PO DAILY [facility] Last Admin: 10/03/18 08:13 Dose: 30 mg Gabapentin (Neurontin) 300 mg PO TID [facility] Last Admin: 10/03/18 14:00 Dose: 300 mg Admin: 10/03/18 08:13 Dose: 300 mg Admin: 10/02/18 20:52 Dose: 300 mg Heparin Sodium (Porcine) (Heparin) 5,000 unit SUBCUT Q8H [facility] Last Admin: 10/03/18 16:00 Dose: 5,000 unit Meropenem 2 gm/ Sodium (Chloride) 100 mls @ 200 mls/hr IV Q12H [facility] Last Admin: 10/03/18 17:30 Dose: 200 mls/hr Infusion: 10/03/18 07:57 Dose: 0 mls/hr Admin: 10/03/18 05:17 Dose: 200 mls/hr Infusion: 10/02/18 19:26 Dose: 200 mls/hr Admin: 10/02/18 18:56 Dose: 200 mls/hr Methadone HCl (Methadone) 95 mg PO DAILY [facility] Last Admin: 10/03/18 08:19 Dose: 95 mg Olanzapine (Zyprexa Zydis) 20 mg PO DAILY [facility] Last Admin: 10/03/18 08:13 Dose: 20 mg Ondansetron HCl (Zofran) 4 mg IV Q8HR PRN PRN Reason: Nausea And Vomiting Prednisone (Deltasone) 10 mg PO BID [facility] Last Admin: 10/03/18 13:07 Dose: Not Given Admin: 10/02/18 20:52 Dose: 10 mg Fluticasone/Salmeterol (Advair 500/50 Diskus) 1 puff INH RTBID [facility] Last Admin: 10/03/18 17:17 Dose: Not Given Admin: 10/03/18 05:31 Dose: Not Given Admin: 10/02/18 19:22 Dose: Not Given Discontinued Medications Acetaminophen (Tylenol) 650 mg PO NOW ONE Stop: 10/02/18 13:17 Last Admin: 10/02/18 13:35 Dose: 650 mg Albuterol/Ipratropium (Duoneb) 3 ml INH NOW ONE Stop: 10/02/18 13:29 Last Admin: 10/02/18 13:20 Dose: 3 ml Heparin Sodium (Porcine) (Heparin) 5,000 unit SUBCUT BID [facility] Last Admin: 10/03/18 08:13 Dose: 5,000 unit Admin: 10/02/18 20:52 Dose: 5,000 unit Sodium Chloride (Normal Saline 0.9%) 500 mls @ 1,000 mls/hr IV BOLUS ONE Stop: 10/02/18 14:12 Last Infusion: 10/02/18 14:56 Dose: 0 mls/hr Admin: 10/02/18 13:55 Dose: 1,000 mls/hr Lorazepam (Ativan) 1 mg IV NOW ONE Stop: 10/02/18 13:17 Last Admin: 10/02/18 13:35 Dose: 1 mg Vital Signs - 8 hr 10/03/18 11:33 10/03/18 13:25 10/03/18 17:15 Temperature 98.1 F Pulse Rate 99 H 88 78 Respiratory Rate 20 16 16 Blood Pressure 129/37 L Pulse Oximetry 96 94 93 10/03/18 17:25 Temperature 98.3 F Pulse Rate 81 Respiratory Rate 19 Blood Pressure 132/71 Pulse Oximetry 91 MDM - Wound/Laceration <LIZBETH Malone - Last Filed: 10/02/18 21:53> Lab Data Result diagrams: 10/03/18 05:17 10/02/18 13:21 Lab Results 10/02/18 10/02/18 10/02/18 Range/Units 13:21 13:21 13:21 WBC 9.5 (4.5-11.0) X10^3/uL RBC 4.22 L (4.5-5.9) X10^6/uL Hgb 10.8 L (13.5-17.5) g/dL Hct 34.5 L (41-53) % MCV 81.9 (80-100) fL MCH 25.5 L (26-34) PG MCHC 31.2 (30-36) % RDW 16.6 H (11.6-14.8) % Plt Count 242 (150-400) X10^3/uL Neut % (Auto) 76.8 H (50-75) % Lymph % (Auto) 13.7 L (25-40) % Bradford % (Auto) 8.6 (3-14) % Eos % (Auto) 0.3 L (2-4) % Baso % (Auto) 0.6 (0-2) % Neut # (Auto) 7300 H (6902-4866) /uL Lymph # (Auto) 1300 (5851-3754) /uL Bradford # (Auto) 800 (0-900) /uL Eos # (Auto) 0 (0-450) /uL Baso # (Auto) 100 (0-100) /uL Sodium 142 (137-145) mmol/L Potassium 4.0 (3.4-5.1) mmol/L Chloride 101 (98-107) mmol/L Carbon Dioxide 37 H (22-32) mmol/L BUN 7 L (9-20) mg/dL Creatinine 0.60 L (0.66-1.25) mg/dL Estimated GFR > 60.0 (>60) mL/min BUN/Creatinine Ratio 11.7 (6-22) Glucose 107 H (70-100) mg/dL Lactate (0.7-2.1) mmol/L Calcium 8.2 L (8.4-10.2) mg/dL Total Bilirubin 0.6 (0.2-1.3) mg/dL AST 12 L (17-59) IU/L ALT 13 L (21-72) IU/L Alkaline Phosphatase 71 (38-126) U/L Total Protein 7.2 (6.3-8.2) g/dL Albumin 3.4 L (3.5-5.0) g/dL Globulin 3.8 (1.7-4.1) g/dL Albumin/Globulin Ratio 0.9 L (1.0-2.8) Procalcitonin < 0.05 (<0.5) ng/mL A. baumannii (PCR) (Not Detect) Sonja albicans (PCR) (Not Detect) C. glabrata (PCR) (Not Detect) C. krusei (PCR) (Not Detect) C. parapsilosis (PCR) (Not Detect) C. tropicalis (PCR) (Not Detect) Enterobacteriac sp PCR (Not Detect) E. cloacae complex PCR (Not Detect) Enterococcus sp PCR (Not Detect) E. coli (PCR) (Not Detect) H. influenzae (PCR) (Not Detect) Klebsiella oxytoca PCR (Not Detect) Klebsiella pneumoniae (Not Detect) List. monocytogenes PCR (Not Detect) N. meningitidis (PCR) (Not Detect) Proteus species (PCR) (Not Detect) Serratia marcescens PCR (Not Detect) Staphylococcus sp PCR Staph aureus (PCR) (Not Detect) mecA-Methicil Res Gene (Not Detect) Streptococcus sp PCR (Not Detect) Group A Strep (PCR) (Not Detect) Strep agalactiae (PCR) (Not Detect) Strep pneumoniae (PCR) (Not Detect) P. aeruginosa (PCR) (Not Detect) Jonathon/B-Vanco Res Genes KPC-Carbap Res Gene PCR (Not Detect) 10/02/18 10/02/18 10/03/18 Range/Units 13:21 13:21 05:17 WBC 4.5 D (4.5-11.0) X10^3/uL RBC 3.95 L (4.5-5.9) X10^6/uL Hgb 10.1 L (13.5-17.5) g/dL Hct 32.2 L (41-53) % MCV 81.4 (80-100) fL MCH 25.6 L (26-34) PG MCHC 31.5 (30-36) % RDW 16.3 H (11.6-14.8) % Plt Count 174 (150-400) X10^3/uL Neut % (Auto) 65.0 (50-75) % Lymph % (Auto) 23.6 L (25-40) % Bradford % (Auto) 10.6 (3-14) % Eos % (Auto) 0.5 L (2-4) % Baso % (Auto) 0.3 (0-2) % Neut # (Auto) 2900 (3765-1775) /uL Lymph # (Auto) 1100 (4613-0979) /uL Bradford # (Auto) 500 (0-900) /uL Eos # (Auto) 0 (0-450) /uL Baso # (Auto) 0 (0-100) /uL Sodium (137-145) mmol/L Potassium (3.4-5.1) mmol/L Chloride (98-107) mmol/L Carbon Dioxide (22-32) mmol/L BUN (9-20) mg/dL Creatinine (0.66-1.25) mg/dL Estimated GFR (>60) mL/min BUN/Creatinine Ratio (6-22) Glucose (70-100) mg/dL Lactate 0.8 (0.7-2.1) mmol/L Calcium (8.4-10.2) mg/dL Total Bilirubin (0.2-1.3) mg/dL AST (17-59) IU/L ALT (21-72) IU/L Alkaline Phosphatase (38-126) U/L Total Protein (6.3-8.2) g/dL Albumin (3.5-5.0) g/dL Globulin (1.7-4.1) g/dL Albumin/Globulin Ratio (1.0-2.8) Procalcitonin (<0.5) ng/mL A. baumannii (PCR) Not detected (Not Detect) Sonja albicans (PCR) Not detected (Not Detect) C. glabrata (PCR) Not detected (Not Detect) C. krusei (PCR) Not detected (Not Detect) C. parapsilosis (PCR) Not detected (Not Detect) C. tropicalis (PCR) Not detected (Not Detect) Enterobacteriac sp PCR Not detected (Not Detect) E. cloacae complex PCR Not detected (Not Detect) Enterococcus sp PCR Not detected (Not Detect) E. coli (PCR) Not detected (Not Detect) H. influenzae (PCR) Not detected (Not Detect) Klebsiella oxytoca PCR Not detected (Not Detect) Klebsiella pneumoniae Not detected (Not Detect) List. monocytogenes PCR Not detected (Not Detect) N. meningitidis (PCR) Not detected (Not Detect) Proteus species (PCR) Not detected (Not Detect) Serratia marcescens PCR Not detected (Not Detect) Staphylococcus sp PCR Not Reportable Staph aureus (PCR) Detected H (Not Detect) mecA-Methicil Res Gene Detected H (Not Detect) Streptococcus sp PCR Not detected (Not Detect) Group A Strep (PCR) Not detected (Not Detect) Strep agalactiae (PCR) Not detected (Not Detect) Strep pneumoniae (PCR) Not detected (Not Detect) P. aeruginosa (PCR) Not detected (Not Detect) Jonathon/B-Vanco Res Genes Not Reportable KPC-Carbap Res Gene PCR Not detected (Not Detect) MDM Narrative Medical decision making narrative: CBC was obtained and white count was unremarkable. Procalcitonin and lactate were negative. Patient does not have signs of sepsis however he is mildly tachycardic in the emergency room. Patient does have some bilateral expiratory wheezes he was given DuoNeb treatment which helped his symptoms. Blood cultures are pending. Prior cultures from his ulcers show both staph and strep. Discussed case with hospitalist Dr. egan for admission. He wrote for antibiotics. Allevyn dressings were applied to the ulcer spots to the buttocks perineum and thigh area. Patient is admitted to the [facility]ach <Concepcion Damian, - Last Filed: 10/03/18 18:29> Lab Data Lab Results 10/02/18 10/02/18 10/02/18 Range/Units 13:21 13:21 13:21 WBC 9.5 (4.5-11.0) X10^3/uL RBC 4.22 L (4.5-5.9) X10^6/uL Hgb 10.8 L (13.5-17.5) g/dL Hct 34.5 L (41-53) % MCV 81.9 (80-100) fL MCH 25.5 L (26-34) PG MCHC 31.2 (30-36) % RDW 16.6 H (11.6-14.8) % Plt Count 242 (150-400) X10^3/uL Neut % (Auto) 76.8 H (50-75) % Lymph % (Auto) 13.7 L (25-40) % Bradford % (Auto) 8.6 (3-14) % Eos % (Auto) 0.3 L (2-4) % Baso % (Auto) 0.6 (0-2) % Neut # (Auto) 7300 H (8688-0807) /uL Lymph # (Auto) 1300 (6635-1423) /uL Bradford # (Auto) 800 (0-900) /uL Eos # (Auto) 0 (0-450) /uL Baso # (Auto) 100 (0-100) /uL Sodium 142 (137-145) mmol/L Potassium 4.0 (3.4-5.1) mmol/L Chloride 101 (98-107) mmol/L Carbon Dioxide 37 H (22-32) mmol/L BUN 7 L (9-20) mg/dL Creatinine 0.60 L (0.66-1.25) mg/dL Estimated GFR > 60.0 (>60) mL/min BUN/Creatinine Ratio 11.7 (6-22) Glucose 107 H (70-100) mg/dL Lactate (0.7-2.1) mmol/L Calcium 8.2 L (8.4-10.2) mg/dL Total Bilirubin 0.6 (0.2-1.3) mg/dL AST 12 L (17-59) IU/L ALT 13 L (21-72) IU/L Alkaline Phosphatase 71 (38-126) U/L Total Protein 7.2 (6.3-8.2) g/dL Albumin 3.4 L (3.5-5.0) g/dL Globulin 3.8 (1.7-4.1) g/dL Albumin/Globulin Ratio 0.9 L (1.0-2.8) Procalcitonin < 0.05 (<0.5) ng/mL A. baumannii (PCR) (Not Detect) Sonja albicans (PCR) (Not Detect) C. glabrata (PCR) (Not Detect) C. krusei (PCR) (Not Detect) C. parapsilosis (PCR) (Not Detect) C. tropicalis (PCR) (Not Detect) Enterobacteriac sp PCR (Not Detect) E. cloacae complex PCR (Not Detect) Enterococcus sp PCR (Not Detect) E. coli (PCR) (Not Detect) H. influenzae (PCR) (Not Detect) Klebsiella oxytoca PCR (Not Detect) Klebsiella pneumoniae (Not Detect) List. monocytogenes PCR (Not Detect) N. meningitidis (PCR) (Not Detect) Proteus species (PCR) (Not Detect) Serratia marcescens PCR (Not Detect) Staphylococcus sp PCR Staph aureus (PCR) (Not Detect) mecA-Methicil Res Gene (Not Detect) Streptococcus sp PCR (Not Detect) Group A Strep (PCR) (Not Detect) Strep agalactiae (PCR) (Not Detect) Strep pneumoniae (PCR) (Not Detect) P. aeruginosa (PCR) (Not Detect) Jonathon/B-Vanco Res Genes KPC-Carbap Res Gene PCR (Not Detect) 10/02/18 10/02/18 10/03/18 Range/Units 13:21 13:21 05:17 WBC 4.5 D (4.5-11.0) X10^3/uL RBC 3.95 L (4.5-5.9) X10^6/uL Hgb 10.1 L (13.5-17.5) g/dL Hct 32.2 L (41-53) % MCV 81.4 (80-100) fL MCH 25.6 L (26-34) PG MCHC 31.5 (30-36) % RDW 16.3 H (11.6-14.8) % Plt Count 174 (150-400) X10^3/uL Neut % (Auto) 65.0 (50-75) % Lymph % (Auto) 23.6 L (25-40) % Bradford % (Auto) 10.6 (3-14) % Eos % (Auto) 0.5 L (2-4) % Baso % (Auto) 0.3 (0-2) % Neut # (Auto) 2900 (5240-1126) /uL Lymph # (Auto) 1100 (5730-0365) /uL Bradford # (Auto) 500 (0-900) /uL Eos # (Auto) 0 (0-450) /uL Baso # (Auto) 0 (0-100) /uL Sodium (137-145) mmol/L Potassium (3.4-5.1) mmol/L Chloride (98-107) mmol/L Carbon Dioxide (22-32) mmol/L BUN (9-20) mg/dL Creatinine (0.66-1.25) mg/dL Estimated GFR (>60) mL/min BUN/Creatinine Ratio (6-22) Glucose (70-100) mg/dL Lactate 0.8 (0.7-2.1) mmol/L Calcium (8.4-10.2) mg/dL Total Bilirubin (0.2-1.3) mg/dL AST (17-59) IU/L ALT (21-72) IU/L Alkaline Phosphatase (38-126) U/L Total Protein (6.3-8.2) g/dL Albumin (3.5-5.0) g/dL Globulin (1.7-4.1) g/dL Albumin/Globulin Ratio (1.0-2.8) Procalcitonin (<0.5) ng/mL A. baumannii (PCR) Not detected (Not Detect) Sonja albicans (PCR) Not detected (Not Detect) C. glabrata (PCR) Not detected (Not Detect) C. krusei (PCR) Not detected (Not Detect) C. parapsilosis (PCR) Not detected (Not Detect) C. tropicalis (PCR) Not detected (Not Detect) Enterobacteriac sp PCR Not detected (Not Detect) E. cloacae complex PCR Not detected (Not Detect) Enterococcus sp PCR Not detected (Not Detect) E. coli (PCR) Not detected (Not Detect) H. influenzae (PCR) Not detected (Not Detect) Klebsiella oxytoca PCR Not detected (Not Detect) Klebsiella pneumoniae Not detected (Not Detect) List. monocytogenes PCR Not detected (Not Detect) N. meningitidis (PCR) Not detected (Not Detect) Proteus species (PCR) Not detected (Not Detect) Serratia marcescens PCR Not detected (Not Detect) Staphylococcus sp PCR Not Reportable Staph aureus (PCR) Detected H (Not Detect) mecA-Methicil Res Gene Detected H (Not Detect) Streptococcus sp PCR Not detected (Not Detect) Group A Strep (PCR) Not detected (Not Detect) Strep agalactiae (PCR) Not detected (Not Detect) Strep pneumoniae (PCR) Not detected (Not Detect) P. aeruginosa (PCR) Not detected (Not Detect) Jonathon/B-Vanco Res Genes Not Reportable KPC-Carbap Res Gene PCR Not detected (Not Detect) Discharge Plan Departure Patient Disposition: Admitted As Inpatient Clinical Impression: Decubitus ulcer of buttock, stage 2 Discharge Date/Time: 10/02/18 16:36 Interventions: ED Discharge Assessment Last Done: 10/02/18 16:35 Admit Date/Time: 10/02/18 15:14 Admit Provider: Alyssa Muhammad Josh <Concepcion Damian DO - Last Filed: 10/03/18 18:29> Cosign ED Attending Cosignature Attestation: I was immediately available in the department for consultation, case was discussed, patient seen by Dr. Muhammad in the department. This documentation has been reviewed and I agree with assessment and plan. Supervised by Concepcion Damian DO
[2018-10-02] MEDS: ACETAMINOPHEN 325 MG TABLET 650 MG PO (13:35)
[2018-10-02] MEDS: LORazepam 2 MG/ML SYRINGE 1 MG IV (13:35)
[2018-10-02 13:38] LABS: Add Manual Diff / Slide Review NO; Basophils Absolute Auto 100 /uL (0-100); Basophils Percent Auto 0.6 % (0-2); Eosinophils Absolute Auto 0 /uL (0-450); Eosinophils Percent Auto 0.3 % (2-4); Hematocrit 34.5 % (41-53); Hemoglobin 10.8 g/dL (13.5-17.5); Lymphocytes Absolute Auto 1300 /uL (1100-4500); Lymphocytes Percent Auto 13.7 % (25-40); Mean Corpuscular HGB Conc 31.2 % (30-36); Mean Corpuscular Hemoglobin 25.5 PG (26-34); Mean Corpuscular Volume 81.9 fL (80-100); Monocytes Absolute Auto 800 /uL (0-900); Monocytes Percent Auto 8.6 % (3-14); Neutrophils Absolute Auto 7300 /uL (1500-7000); Neutrophils Percent Auto 76.8 % (50-75); Platelet Count 242 X10^3/uL (150-400); Red Blood Cell Count 4.22 X10^6/uL (4.5-5.9); Red Cell Distribution Width 16.6 % (11.6-14.8); White Blood Cell Count 9.5 X10^3/uL (4.5-11.0)
[2018-10-02 13:51] LABS: Lactate (Lactic Acid) 0.8 mmol/L (0.7-2.1)
[2018-10-02 13:52] LABS: Alanine Aminotransferase 13 IU/L (21-72); Albumin 3.4 g/dL (3.5-5.0); Albumin Globulin Ratio 0.9 (1.0-2.8); Alkaline Phosphatase 71 U/L (38-126); Aspartate Aminotransferase 12 IU/L (17-59); BUN Creatinine Ratio 11.7 (6-22); Bilirubin Total 0.6 mg/dL (0.2-1.3); Blood Urea Nitrogen 7 mg/dL (9-20); Calcium 8.2 mg/dL (8.4-10.2); Carbon Dioxide 37 mmol/L (22-32); Chloride 101 mmol/L (98-107); Estimated Glomerular Filt Rate > 60.0 mL/min (>60); Globulin 3.8 g/dL (1.7-4.1); Glucose 107 mg/dL (70-100); HEMOLYSIS < 15 (0-50); Sodium 142 mmol/L (137-145); Total Protein 7.2 g/dL (6.3-8.2)
[2018-10-02] MEDS: SODIUM CHLORIDE 0.9% 500 ML 1000 ML IV (13:55)
[2018-10-02 14:07] LABS: Procalcitonin < 0.05 ng/mL (<0.5)
--- NOTE | 2018-10-02 14:53 | ED_ITS ---
HPI - Wound/Laceration <LIZBETH Malone - Last Filed: 10/02/18 21:53> General Chief Complaint: Wound/Laceration Stated Complaint: Sore Knee Time Seen by Provider: 10/02/18 13:11 Source: patient Mode of arrival: wheelchair Limitations: no limitations History of Present Illness HPI narrative: 37-year-old male with history of morbid obesity and multiple comorbidities here for worsening pain to the area of his decubitus ulcers along his buttocks thighs and perineal area. He was admitted for this last month and was discharged to wound care. He reports that he has missed wound care appointment and has not been to see them in over the last week. He reports worsening pressure ulcers to his buttocks perineal area and thighs with worsening pain. No known fever. He does have serosanguineous drainage from these regions. He reports he is currently not taking any antibiotics. He does state that he did scratch the area accidentally causing a some bleeding. Related Data Home Medications Medication Instructions Recorded Confirmed methadone 95 mg PO QDAY #0 05/07/17 10/02/18 prednisone 10 mg PO BID 08/05/18 10/02/18 Previous Rx's Medication Instructions Recorded fluticasone-salmeterol [Advair 1 puff INH BID #2 inh 04/28/17 Diskus] albuterol sulfate 2 puff INHALATION Q4-6H PRN #18 07/11/18 gram albuterol sulfate 3 ml INH Q4HP PRN #360 ml 07/27/18 lorazepam [Ativan] 1 mg PO BID-TID PRN #10 tab 08/26/18 olanzapine 20 mg PO DAILY #10 tab 08/26/18 duloxetine [Cymbalta] 30 mg PO DAILY #90 cap 09/15/18 gabapentin [Neurontin] 300 mg PO TID #180 cap 09/15/18 hydrocodone-acetaminophen [[place]] 1 tab PO Q4-6H PRN #20 tab 09/15/18 Allergies Allergy/AdvReac Type Severity Reaction Status Date / Time NSAIDS (Non-Steroidal Allergy Unknown ASTHMA Verified 10/02/18 12:29 Anti-Inflamma FLARE UPS [NSAIDS (NON-STEROIDAL ANTI-INFLAMMA] ibuprofen AdvReac Mild nausea, GI Verified 10/02/18 12:29 upset Review of Systems <LIZBETH Malone - Last Filed: 10/02/18 21:53> Constitutional Denies chills, Denies fever(s), Denies lethargy and Denies weakness Eyes Denies change in vision, Denies eye discharge, Denies irritation and Denies loss of vision ENT Ears, Nose, Mouth, and Throat: Denies change in voice, Denies neck pain and Denies sore throat Cardiovascular Denies dyspnea and Denies dyspnea on exertion Respiratory Denies cough, Denies dyspnea, Denies dyspnea on exertion and Denies wheezing Gastrointestinal Gastrointestinal: Denies abdominal pain, Denies change in bowel habits, Denies diarrhea, Denies nausea and Denies vomiting Genitourinary Denies hematuria, Denies flank pain, Denies urinary incontinence and Denies urinary urgency Musculoskeletal Denies neck pain Integumentary/Breasts Comments: Worsening pressure ulcers to the buttocks perineal and thigh area bilaterally Neurologic Denies loss of vision and Denies weakness Allergic/Immunologic Denies wheezing Exam <LIZBETH Malone - Last Filed: 10/02/18 21:53> Initial Vital Signs Initial Vital Signs: Vital Signs Temperature 98.4 F 10/02/18 12:30 Pulse Rate 112 H 10/02/18 12:30 Respiratory Rate 22 10/02/18 12:30 Blood Pressure 145/79 H 10/02/18 12:30 Pulse Oximetry 93 10/02/18 12:30 Const General: cooperative and well developed Nutritional Appearance: well nourished Orientation: alert, awake, oriented x3 and not confused [facility] Mouth: oral mucosae normal and moist mucous membranes Eyes Conjunctivae: conjunctivae normal Sclera: sclerae normal Pupils: PERRL EOM: EOM intact bilaterally Resp Effort & Inspection: normal respiratory effort, able to speak in complete sentences, no respiratory distress and no use of accessory muscles Auscultation: no rales, no rhonchi and wheezes inspiratory wheezes and upper bilaterally Cardio Rate: regular rate Rhythm: regular rhythm Heart Sounds: no click, no gallops, no murmurs and no rubs Pulses: normal peripheral pulses Skin Other: Multiple stage II pressure ulcers to the buttocks peroneal area scrotal area and bilateral thighs. Draining serosanguineous drainage. Tender to palpation. No induration no fluctuance. Wounds do have some surrounding erythema <Concepcion Damian DO - Last Filed: 10/03/18 18:29> Initial Vital Signs Initial Vital Signs: Vital Signs Temperature 98.4 F 10/02/18 12:30 Pulse Rate 112 H 10/02/18 12:30 Respiratory Rate 22 10/02/18 12:30 Blood Pressure 145/79 H 10/02/18 12:30 Pulse Oximetry 93 10/02/18 12:30 Course <LIZBETH Malone - Last Filed: 10/02/18 21:53> Orders Ordered: Hydrocodone Bitart/Acetaminophen ([place] 5/325) 1 tab PO Q4H PRN PRN Reason: pain Last Admin: 10/03/18 18:06 Dose: 1 tab Admin: 10/03/18 14:00 Dose: 1 tab Admin: 10/03/18 08:40 Dose: 1 tab Albuterol (Ventolin Hfa) 2 puff INH Q4H PRN PRN Reason: shortness of breath or wheezing Last Admin: 10/03/18 08:36 Dose: 2 puff Albuterol (Ventolin) 2.5 mg INH Q4H PRN PRN Reason: Wheezing Last Admin: 10/03/18 17:17 Dose: 2.5 mg Admin: 10/03/18 13:26 Dose: 2.5 mg Admin: 10/03/18 05:31 Dose: 2.5 mg Admin: 10/03/18 00:05 Dose: 2.5 mg Admin: 10/02/18 19:39 Dose: 2.5 mg Duloxetine HCl (Cymbalta) 30 mg PO DAILY [facility] Last Admin: 10/03/18 08:13 Dose: 30 mg Gabapentin (Neurontin) 300 mg PO TID [facility] Last Admin: 10/03/18 14:00 Dose: 300 mg Admin: 10/03/18 08:13 Dose: 300 mg Admin: 10/02/18 20:52 Dose: 300 mg Heparin Sodium (Porcine) (Heparin) 5,000 unit SUBCUT Q8H [facility] Last Admin: 10/03/18 16:00 Dose: 5,000 unit Meropenem 2 gm/ Sodium (Chloride) 100 mls @ 200 mls/hr IV Q12H [facility] Last Admin: 10/03/18 17:30 Dose: 200 mls/hr Infusion: 10/03/18 07:57 Dose: 0 mls/hr Admin: 10/03/18 05:17 Dose: 200 mls/hr Infusion: 10/02/18 19:26 Dose: 200 mls/hr Admin: 10/02/18 18:56 Dose: 200 mls/hr Methadone HCl (Methadone) 95 mg PO DAILY [facility] Last Admin: 10/03/18 08:19 Dose: 95 mg Olanzapine (Zyprexa Zydis) 20 mg PO DAILY [facility] Last Admin: 10/03/18 08:13 Dose: 20 mg Ondansetron HCl (Zofran) 4 mg IV Q8HR PRN PRN Reason: Nausea And Vomiting Prednisone (Deltasone) 10 mg PO BID [facility] Last Admin: 10/03/18 13:07 Dose: Not Given Admin: 10/02/18 20:52 Dose: 10 mg Fluticasone/Salmeterol (Advair 500/50 Diskus) 1 puff INH RTBID [facility] Last Admin: 10/03/18 17:17 Dose: Not Given Admin: 10/03/18 05:31 Dose: Not Given Admin: 10/02/18 19:22 Dose: Not Given Discontinued Medications Acetaminophen (Tylenol) 650 mg PO NOW ONE Stop: 10/02/18 13:17 Last Admin: 10/02/18 13:35 Dose: 650 mg Albuterol/Ipratropium (Duoneb) 3 ml INH NOW ONE Stop: 10/02/18 13:29 Last Admin: 10/02/18 13:20 Dose: 3 ml Heparin Sodium (Porcine) (Heparin) 5,000 unit SUBCUT BID [facility] Last Admin: 10/03/18 08:13 Dose: 5,000 unit Admin: 10/02/18 20:52 Dose: 5,000 unit Sodium Chloride (Normal Saline 0.9%) 500 mls @ 1,000 mls/hr IV BOLUS ONE Stop: 10/02/18 14:12 Last Infusion: 10/02/18 14:56 Dose: 0 mls/hr Admin: 10/02/18 13:55 Dose: 1,000 mls/hr Lorazepam (Ativan) 1 mg IV NOW ONE Stop: 10/02/18 13:17 Last Admin: 10/02/18 13:35 Dose: 1 mg Vital Signs - 8 hr 10/03/18 11:33 10/03/18 13:25 10/03/18 17:15 Temperature 98.1 F Pulse Rate 99 H 88 78 Respiratory Rate 20 16 16 Blood Pressure 129/37 L Pulse Oximetry 96 94 93 10/03/18 17:25 Temperature 98.3 F Pulse Rate 81 Respiratory Rate 19 Blood Pressure 132/71 Pulse Oximetry 91 <Concepcion Damian DO - Last Filed: 10/03/18 18:29> Orders Ordered: Hydrocodone Bitart/Acetaminophen ([place] 5/325) 1 tab PO Q4H PRN PRN Reason: pain Last Admin: 10/03/18 18:06 Dose: 1 tab Admin: 10/03/18 14:00 Dose: 1 tab Admin: 10/03/18 08:40 Dose: 1 tab Albuterol (Ventolin Hfa) 2 puff INH Q4H PRN PRN Reason: shortness of breath or wheezing Last Admin: 10/03/18 08:36 Dose: 2 puff Albuterol (Ventolin) 2.5 mg INH Q4H PRN PRN Reason: Wheezing Last Admin: 10/03/18 17:17 Dose: 2.5 mg Admin: 10/03/18 13:26 Dose: 2.5 mg Admin: 10/03/18 05:31 Dose: 2.5 mg Admin: 10/03/18 00:05 Dose: 2.5 mg Admin: 10/02/18 19:39 Dose: 2.5 mg Duloxetine HCl (Cymbalta) 30 mg PO DAILY [facility] Last Admin: 10/03/18 08:13 Dose: 30 mg Gabapentin (Neurontin) 300 mg PO TID [facility] Last Admin: 10/03/18 14:00 Dose: 300 mg Admin: 10/03/18 08:13 Dose: 300 mg Admin: 10/02/18 20:52 Dose: 300 mg Heparin Sodium (Porcine) (Heparin) 5,000 unit SUBCUT Q8H [facility] Last Admin: 10/03/18 16:00 Dose: 5,000 unit Meropenem 2 gm/ Sodium (Chloride) 100 mls @ 200 mls/hr IV Q12H [facility] Last Admin: 10/03/18 17:30 Dose: 200 mls/hr Infusion: 10/03/18 07:57 Dose: 0 mls/hr Admin: 10/03/18 05:17 Dose: 200 mls/hr Infusion: 10/02/18 19:26 Dose: 200 mls/hr Admin: 10/02/18 18:56 Dose: 200 mls/hr Methadone HCl (Methadone) 95 mg PO DAILY [facility] Last Admin: 10/03/18 08:19 Dose: 95 mg Olanzapine (Zyprexa Zydis) 20 mg PO DAILY [facility] Last Admin: 10/03/18 08:13 Dose: 20 mg Ondansetron HCl (Zofran) 4 mg IV Q8HR PRN PRN Reason: Nausea And Vomiting Prednisone (Deltasone) 10 mg PO BID [facility] Last Admin: 10/03/18 13:07 Dose: Not Given Admin: 10/02/18 20:52 Dose: 10 mg Fluticasone/Salmeterol (Advair 500/50 Diskus) 1 puff INH RTBID [facility] Last Admin: 10/03/18 17:17 Dose: Not Given Admin: 10/03/18 05:31 Dose: Not Given Admin: 10/02/18 19:22 Dose: Not Given Discontinued Medications Acetaminophen (Tylenol) 650 mg PO NOW ONE Stop: 10/02/18 13:17 Last Admin: 10/02/18 13:35 Dose: 650 mg Albuterol/Ipratropium (Duoneb) 3 ml INH NOW ONE Stop: 10/02/18 13:29 Last Admin: 10/02/18 13:20 Dose: 3 ml Heparin Sodium (Porcine) (Heparin) 5,000 unit SUBCUT BID [facility] Last Admin: 10/03/18 08:13 Dose: 5,000 unit Admin: 10/02/18 20:52 Dose: 5,000 unit Sodium Chloride (Normal Saline 0.9%) 500 mls @ 1,000 mls/hr IV BOLUS ONE Stop: 10/02/18 14:12 Last Infusion: 10/02/18 14:56 Dose: 0 mls/hr Admin: 10/02/18 13:55 Dose: 1,000 mls/hr Lorazepam (Ativan) 1 mg IV NOW ONE Stop: 10/02/18 13:17 Last Admin: 10/02/18 13:35 Dose: 1 mg Vital Signs - 8 hr 10/03/18 11:33 10/03/18 13:25 10/03/18 17:15 Temperature 98.1 F Pulse Rate 99 H 88 78 Respiratory Rate 20 16 16 Blood Pressure 129/37 L Pulse Oximetry 96 94 93 10/03/18 17:25 Temperature 98.3 F Pulse Rate 81 Respiratory Rate 19 Blood Pressure 132/71 Pulse Oximetry 91 MDM - Wound/Laceration <LIZBETH Malone - Last Filed: 10/02/18 21:53> Lab Data Result diagrams: 10/03/18 05:17 10/02/18 13:21 Lab Results 10/02/18 10/02/18 10/02/18 Range/Units 13:21 13:21 13:21 WBC 9.5 (4.5-11.0) X10^3/uL RBC 4.22 L (4.5-5.9) X10^6/uL Hgb 10.8 L (13.5-17.5) g/dL Hct 34.5 L (41-53) % MCV 81.9 (80-100) fL MCH 25.5 L (26-34) PG MCHC 31.2 (30-36) % RDW 16.6 H (11.6-14.8) % Plt Count 242 (150-400) X10^3/uL Neut % (Auto) 76.8 H (50-75) % Lymph % (Auto) 13.7 L (25-40) % [place] % (Auto) 8.6 (3-14) % Eos % (Auto) 0.3 L (2-4) % Baso % (Auto) 0.6 (0-2) % Neut # (Auto) 7300 H (2103-2392) /uL Lymph # (Auto) 1300 (7605-1922) /uL [place] # (Auto) 800 (0-900) /uL Eos # (Auto) 0 (0-450) /uL Baso # (Auto) 100 (0-100) /uL Sodium 142 (137-145) mmol/L Potassium 4.0 (3.4-5.1) mmol/L Chloride 101 (98-107) mmol/L Carbon Dioxide 37 H (22-32) mmol/L BUN 7 L (9-20) mg/dL Creatinine 0.60 L (0.66-1.25) mg/dL Estimated GFR > 60.0 (>60) mL/min BUN/Creatinine Ratio 11.7 (6-22) Glucose 107 H (70-100) mg/dL Lactate (0.7-2.1) mmol/L Calcium 8.2 L (8.4-10.2) mg/dL Total Bilirubin 0.6 (0.2-1.3) mg/dL AST 12 L (17-59) IU/L ALT 13 L (21-72) IU/L Alkaline Phosphatase 71 (38-126) U/L Total Protein 7.2 (6.3-8.2) g/dL Albumin 3.4 L (3.5-5.0) g/dL Globulin 3.8 (1.7-4.1) g/dL Albumin/Globulin Ratio 0.9 L (1.0-2.8) Procalcitonin < 0.05 (<0.5) ng/mL A. baumannii (PCR) (Not Detect) Sonja albicans (PCR) (Not Detect) C. glabrata (PCR) (Not Detect) C. krusei (PCR) (Not Detect) C. parapsilosis (PCR) (Not Detect) C. tropicalis (PCR) (Not Detect) Enterobacteriac sp PCR (Not Detect) E. cloacae complex PCR (Not Detect) Enterococcus sp PCR (Not Detect) E. coli (PCR) (Not Detect) H. influenzae (PCR) (Not Detect) Klebsiella oxytoca PCR (Not Detect) Klebsiella pneumoniae (Not Detect) List. monocytogenes PCR (Not Detect) N. meningitidis (PCR) (Not Detect) Proteus species (PCR) (Not Detect) Serratia marcescens PCR (Not Detect) Staphylococcus sp PCR Staph aureus (PCR) (Not Detect) mecA-Methicil Res Gene (Not Detect) Streptococcus sp PCR (Not Detect) Group A Strep (PCR) (Not Detect) Strep agalactiae (PCR) (Not Detect) Strep pneumoniae (PCR) (Not Detect) P. aeruginosa (PCR) (Not Detect) Jonathon/B-Vanco Res Genes KPC-Carbap Res Gene PCR (Not Detect) 10/02/18 10/02/18 10/03/18 Range/Units 13:21 13:21 05:17 WBC 4.5 D (4.5-11.0) X10^3/uL RBC 3.95 L (4.5-5.9) X10^6/uL Hgb 10.1 L (13.5-17.5) g/dL Hct 32.2 L (41-53) % MCV 81.4 (80-100) fL MCH 25.6 L (26-34) PG MCHC 31.5 (30-36) % RDW 16.3 H (11.6-14.8) % Plt Count 174 (150-400) X10^3/uL Neut % (Auto) 65.0 (50-75) % Lymph % (Auto) 23.6 L (25-40) % [place] % (Auto) 10.6 (3-14) % Eos % (Auto) 0.5 L (2-4) % Baso % (Auto) 0.3 (0-2) % Neut # (Auto) 2900 (7024-5405) /uL Lymph # (Auto) 1100 (9742-7895) /uL [place] # (Auto) 500 (0-900) /uL Eos # (Auto) 0 (0-450) /uL Baso # (Auto) 0 (0-100) /uL Sodium (137-145) mmol/L Potassium (3.4-5.1) mmol/L Chloride (98-107) mmol/L Carbon Dioxide (22-32) mmol/L BUN (9-20) mg/dL Creatinine (0.66-1.25) mg/dL Estimated GFR (>60) mL/min BUN/Creatinine Ratio (6-22) Glucose (70-100) mg/dL Lactate 0.8 (0.7-2.1) mmol/L Calcium (8.4-10.2) mg/dL Total Bilirubin (0.2-1.3) mg/dL AST (17-59) IU/L ALT (21-72) IU/L Alkaline Phosphatase (38-126) U/L Total Protein (6.3-8.2) g/dL Albumin (3.5-5.0) g/dL Globulin (1.7-4.1) g/dL Albumin/Globulin Ratio (1.0-2.8) Procalcitonin (<0.5) ng/mL A. baumannii (PCR) Not detected (Not Detect) Sonja albicans (PCR) Not detected (Not Detect) C. glabrata (PCR) Not detected (Not Detect) C. krusei (PCR) Not detected (Not Detect) C. parapsilosis (PCR) Not detected (Not Detect) C. tropicalis (PCR) Not detected (Not Detect) Enterobacteriac sp PCR Not detected (Not Detect) E. cloacae complex PCR Not detected (Not Detect) Enterococcus sp PCR Not detected (Not Detect) E. coli (PCR) Not detected (Not Detect) H. influenzae (PCR) Not detected (Not Detect) Klebsiella oxytoca PCR Not detected (Not Detect) Klebsiella pneumoniae Not detected (Not Detect) List. monocytogenes PCR Not detected (Not Detect) N. meningitidis (PCR) Not detected (Not Detect) Proteus species (PCR) Not detected (Not Detect) Serratia marcescens PCR Not detected (Not Detect) Staphylococcus sp PCR Not Reportable Staph aureus (PCR) Detected H (Not Detect) mecA-Methicil Res Gene Detected H (Not Detect) Streptococcus sp PCR Not detected (Not Detect) Group A Strep (PCR) Not detected (Not Detect) Strep agalactiae (PCR) Not detected (Not Detect) Strep pneumoniae (PCR) Not detected (Not Detect) P. aeruginosa (PCR) Not detected (Not Detect) Jonathon/B-Vanco Res Genes Not Reportable KPC-Carbap Res Gene PCR Not detected (Not Detect) MDM Narrative Medical decision making narrative: CBC was obtained and white count was unremarkable. Procalcitonin and lactate were negative. Patient does not have signs of sepsis however he is mildly tachycardic in the emergency room. Patient does have some bilateral expiratory wheezes he was given DuoNeb treatment which helped his symptoms. Blood cultures are pending. Prior cultures from his ulcers show both staph and strep. Discussed case with hospitalist Dr. egan for admission. He wrote for antibiotics. Allevyn dressings were applied to the ulcer spots to the buttocks perineum and thigh area. Patient is admitted to the [facility] <Concepcion Damian, - Last Filed: 10/03/18 18:29> Lab Data Lab Results 10/02/18 10/02/18 10/02/18 Range/Units 13:21 13:21 13:21 WBC 9.5 (4.5-11.0) X10^3/uL RBC 4.22 L (4.5-5.9) X10^6/uL Hgb 10.8 L (13.5-17.5) g/dL Hct 34.5 L (41-53) % MCV 81.9 (80-100) fL MCH 25.5 L (26-34) PG MCHC 31.2 (30-36) % RDW 16.6 H (11.6-14.8) % Plt Count 242 (150-400) X10^3/uL Neut % (Auto) 76.8 H (50-75) % Lymph % (Auto) 13.7 L (25-40) % [place] % (Auto) 8.6 (3-14) % Eos % (Auto) 0.3 L (2-4) % Baso % (Auto) 0.6 (0-2) % Neut # (Auto) 7300 H (8594-6412) /uL Lymph # (Auto) 1300 (2845-9739) /uL [place] # (Auto) 800 (0-900) /uL Eos # (Auto) 0 (0-450) /uL Baso # (Auto) 100 (0-100) /uL Sodium 142 (137-145) mmol/L Potassium 4.0 (3.4-5.1) mmol/L Chloride 101 (98-107) mmol/L Carbon Dioxide 37 H (22-32) mmol/L BUN 7 L (9-20) mg/dL Creatinine 0.60 L (0.66-1.25) mg/dL Estimated GFR > 60.0 (>60) mL/min BUN/Creatinine Ratio 11.7 (6-22) Glucose 107 H (70-100) mg/dL Lactate (0.7-2.1) mmol/L Calcium 8.2 L (8.4-10.2) mg/dL Total Bilirubin 0.6 (0.2-1.3) mg/dL AST 12 L (17-59) IU/L ALT 13 L (21-72) IU/L Alkaline Phosphatase 71 (38-126) U/L Total Protein 7.2 (6.3-8.2) g/dL Albumin 3.4 L (3.5-5.0) g/dL Globulin 3.8 (1.7-4.1) g/dL Albumin/Globulin Ratio 0.9 L (1.0-2.8) Procalcitonin < 0.05 (<0.5) ng/mL A. baumannii (PCR) (Not Detect) Sonja albicans (PCR) (Not Detect) C. glabrata (PCR) (Not Detect) C. krusei (PCR) (Not Detect) C. parapsilosis (PCR) (Not Detect) C. tropicalis (PCR) (Not Detect) Enterobacteriac sp PCR (Not Detect) E. cloacae complex PCR (Not Detect) Enterococcus sp PCR (Not Detect) E. coli (PCR) (Not Detect) H. influenzae (PCR) (Not Detect) Klebsiella oxytoca PCR (Not Detect) Klebsiella pneumoniae (Not Detect) List. monocytogenes PCR (Not Detect) N. meningitidis (PCR) (Not Detect) Proteus species (PCR) (Not Detect) Serratia marcescens PCR (Not Detect) Staphylococcus sp PCR Staph aureus (PCR) (Not Detect) mecA-Methicil Res Gene (Not Detect) Streptococcus sp PCR (Not Detect) Group A Strep (PCR) (Not Detect) Strep agalactiae (PCR) (Not Detect) Strep pneumoniae (PCR) (Not Detect) P. aeruginosa (PCR) (Not Detect) Jonathon/B-Vanco Res Genes KPC-Carbap Res Gene PCR (Not Detect) 10/02/18 10/02/18 10/03/18 Range/Units 13:21 13:21 05:17 WBC 4.5 D (4.5-11.0) X10^3/uL RBC 3.95 L (4.5-5.9) X10^6/uL Hgb 10.1 L (13.5-17.5) g/dL Hct 32.2 L (41-53) % MCV 81.4 (80-100) fL MCH 25.6 L (26-34) PG MCHC 31.5 (30-36) % RDW 16.3 H (11.6-14.8) % Plt Count 174 (150-400) X10^3/uL Neut % (Auto) 65.0 (50-75) % Lymph % (Auto) 23.6 L (25-40) % [place] % (Auto) 10.6 (3-14) % Eos % (Auto) 0.5 L (2-4) % Baso % (Auto) 0.3 (0-2) % Neut # (Auto) 2900 (6570-2023) /uL Lymph # (Auto) 1100 (8137-3871) /uL [place] # (Auto) 500 (0-900) /uL Eos # (Auto) 0 (0-450) /uL Baso # (Auto) 0 (0-100) /uL Sodium (137-145) mmol/L Potassium (3.4-5.1) mmol/L Chloride (98-107) mmol/L Carbon Dioxide (22-32) mmol/L BUN (9-20) mg/dL Creatinine (0.66-1.25) mg/dL Estimated GFR (>60) mL/min BUN/Creatinine Ratio (6-22) Glucose (70-100) mg/dL Lactate 0.8 (0.7-2.1) mmol/L Calcium (8.4-10.2) mg/dL Total Bilirubin (0.2-1.3) mg/dL AST (17-59) IU/L ALT (21-72) IU/L Alkaline Phosphatase (38-126) U/L Total Protein (6.3-8.2) g/dL Albumin (3.5-5.0) g/dL Globulin (1.7-4.1) g/dL Albumin/Globulin Ratio (1.0-2.8) Procalcitonin (<0.5) ng/mL A. baumannii (PCR) Not detected (Not Detect) Sonja albicans (PCR) Not detected (Not Detect) C. glabrata (PCR) Not detected (Not Detect) C. krusei (PCR) Not detected (Not Detect) C. parapsilosis (PCR) Not detected (Not Detect) C. tropicalis (PCR) Not detected (Not Detect) Enterobacteriac sp PCR Not detected (Not Detect) E. cloacae complex PCR Not detected (Not Detect) Enterococcus sp PCR Not detected (Not Detect) E. coli (PCR) Not detected (Not Detect) H. influenzae (PCR) Not detected (Not Detect) Klebsiella oxytoca PCR Not detected (Not Detect) Klebsiella pneumoniae Not detected (Not Detect) List. monocytogenes PCR Not detected (Not Detect) N. meningitidis (PCR) Not detected (Not Detect) Proteus species (PCR) Not detected (Not Detect) Serratia marcescens PCR Not detected (Not Detect) Staphylococcus sp PCR Not Reportable Staph aureus (PCR) Detected H (Not Detect) mecA-Methicil Res Gene Detected H (Not Detect) Streptococcus sp PCR Not detected (Not Detect) Group A Strep (PCR) Not detected (Not Detect) Strep agalactiae (PCR) Not detected (Not Detect) Strep pneumoniae (PCR) Not detected (Not Detect) P. aeruginosa (PCR) Not detected (Not Detect) Jonathon/B-Vanco Res Genes Not Reportable KPC-Carbap Res Gene PCR Not detected (Not Detect) Discharge Plan Departure Patient Disposition: Admitted As Inpatient Clinical Impression: Decubitus ulcer of buttock, stage 2 Discharge Date/Time: 10/02/18 16:36 Interventions: ED Discharge Assessment Last Done: 10/02/18 16:35 Admit Date/Time: 10/02/18 15:14 Admit Provider: Alyssa Muhammad Josh <Concepcion Damian DO - Last Filed: 10/03/18 18:29> Cosign ED Attending Cosignature Attestation: I was immediately available in the department for consultation, case was discussed, patient seen by Dr. Muhammad in the department. This documentation has been reviewed and I agree with assessment and plan. Supervised by Concepcion Damian DO
--- NOTE | 2018-10-02 15:26 | PM.HP.1 ---
History of Present Illness Date Patient Seen: 10/02/18 Chief complaint: Sore Knee Narrative: This is a 37-year-old male with a BMI of 85.5, weighing 225 kg, who presents with severe pressure ulcerations, recurrently infected on the skin of the buttocks, sacrum, posterior upper thighs. He was just discharged from the hospital sometime in the last week with plans to continue wound care but returns due to increasing pain in this general area. He had missed his wound care follow-up appointment. A recent culture grew Staph and strep A. He was in the hospital from 09/03 to 09/15.He lives with his girlfriend on the [facility]. His physician is at the [facility] clinic. Several observationspertinent to this problem include the patient telling me in no uncertain terms that he does not want that heart healthy diet, he needs all the pepper and salt he normally wishes to have. He also is observed to be scratching and then rubbing these ulcers directly over them, pulling edges of the skin off and dropping it on the floor as the ulcer visibly enlarges in front of me. There have been no reported fevers, chills, systemic symptoms. Patient History Medical History Anxiety (Acute) Asthma (Acute) Methadone use disorder, mild, in controlled environment (Chronic) Morbid obesity (Chronic) Surgical History H/O vertebral fracture repair (Chronic) History of hip surgery (Chronic) Family & Social History Family history unavailable: No Social History: household members significant other Tobacco & Substance use: Smoking Status Never smoker alcohol intake frequency other Substance Use Type marijuana Meds Home Medications Medication Instructions Recorded Confirmed Type fluticasone-salmeterol [Advair 1 puff INH BID #2 inh 04/28/17 10/02/18 Rx Diskus] methadone 95 mg PO QDAY #0 05/07/17 10/02/18 History albuterol sulfate 2 puff INHALATION Q4-6H PRN #18 07/11/18 10/02/18 Rx gram albuterol sulfate 3 ml INH Q4HP PRN #360 ml 07/27/18 10/02/18 Rx prednisone 10 mg PO BID 08/05/18 10/02/18 History lorazepam [Ativan] 1 mg PO BID-TID PRN #10 tab 08/26/18 10/02/18 Rx olanzapine 20 mg PO DAILY #10 tab 08/26/18 10/02/18 Rx duloxetine [Cymbalta] 30 mg PO DAILY #90 cap 09/15/18 10/02/18 Rx gabapentin [Neurontin] 300 mg PO TID #180 cap 09/15/18 10/02/18 Rx hydrocodone-acetaminophen [Cohutta] 1 tab PO Q4-6H PRN #20 tab 09/15/18 10/02/18 Rx Allergies Allergy/AdvReac Type Severity Reaction Status Date / Time NSAIDS (Non-Steroidal Allergy Unknown ASTHMA Verified 10/02/18 12:29 Anti-Inflamma FLARE UPS [NSAIDS (NON-STEROIDAL ANTI-INFLAMMA] ibuprofen AdvReac Mild nausea, GI Verified 10/02/18 12:29 upset Review of Systems Review of Systems Positive for buttock/leg pain. Negative for fevers, chills, sweats, abdominal pain, nausea, vomiting, bleeding, dysuria, chest pain, seizures, rash other than the ulcers, sore throat, difficulty talking. All systems reviewed & are unremarkable except as noted in HPI and below Exam Vital Signs (past 8 hours): - 10/02/18 12:30 10/02/18 12:33 10/02/18 13:20 Temperature 98.4 F 98.4 F Pulse Rate 112 H 112 H 104 H Respiratory Rate 22 22 20 Blood Pressure 145/79 H 145/79 H Blood Pressure [Right Arm] Pulse Oximetry 93 93 94 10/02/18 13:58 Temperature Pulse Rate 103 H Respiratory Rate 14 Blood Pressure Blood Pressure [Right Arm] 121/56 L Pulse Oximetry 96 Fraction of Inspired Oxygen 21 Oxygen Delivery Method Room Air Oxygen Flow Rate 2 Narrative Exam Narrative: He is alert, oriented x3 and in no apparent distress. Some of his responses seem to be ?patterned?. He is able to maneuver in the bed quite impressively despite his weight. Pupils are equally round and reactive to light and accommodation. Sclerae are pink and nonicteric. Throat looks normal, no lymph nodes are felt head, neck, supraclavicular area. JVD is less than 6 cm and no carotid bruits are heard. Heart is regular rate and rhythm without murmur. Lungs are clear to auscultation bilaterally. Abdomen is obese, no organomegaly, soft, mildly tender over the bladder area. Extremities have massive swelling, most consistent with lymphedema. There is multiple roles of superfluous tissue in the buttock, upper thigh area. Skin no rash other than the stage II and 3 pressure ulcer/friction ulcer breakdowns on the bilateral ischium, posterior thighs, sacrum. The perineum appears to be spared. The anal area is somewhat prominent. Neuro exam. Cranial nerves 2-12 tested intact. There is no tremor. Motor function is 4/5 throughout. There is no thyromegaly. Heart is Objective Labs Result Diagrams: 10/02/18 13:21 10/02/18 13:21 Labs: Laboratory Results - last 24 hr 10/02/18 10/02/18 10/02/18 13:21 13:21 13:21 WBC 9.5 RBC 4.22 L Hgb 10.8 L Hct 34.5 L MCV 81.9 MCH 25.5 L MCHC 31.2 RDW 16.6 H Plt Count 242 Neut % (Auto) 76.8 H Lymph % (Auto) 13.7 L [place] % (Auto) 8.6 Eos % (Auto) 0.3 L Baso % (Auto) 0.6 Neut # (Auto) 7300 H Lymph # (Auto) 1300 [place] # (Auto) 800 Eos # (Auto) 0 Baso # (Auto) 100 Sodium 142 Potassium 4.0 Chloride 101 Carbon Dioxide 37 H BUN 7 L Creatinine 0.60 L Estimated GFR > 60.0 BUN/Creatinine Ratio 11.7 Glucose 107 H Lactate Calcium 8.2 L Total Bilirubin 0.6 AST 12 L ALT 13 L Alkaline Phosphatase 71 Total Protein 7.2 Albumin 3.4 L Globulin 3.8 Albumin/Globulin Ratio 0.9 L Procalcitonin < 0.05 10/02/18 13:21 WBC RBC Hgb Hct MCV MCH MCHC RDW Plt Count Neut % (Auto) Lymph % (Auto) [place] % (Auto) Eos % (Auto) Baso % (Auto) Neut # (Auto) Lymph # (Auto) [place] # (Auto) Eos # (Auto) Baso # (Auto) Sodium Potassium Chloride Carbon Dioxide BUN Creatinine Estimated GFR BUN/Creatinine Ratio Glucose Lactate 0.8 Calcium Total Bilirubin AST ALT Alkaline Phosphatase Total Protein Albumin Globulin Albumin/Globulin Ratio Procalcitonin Assessment & Plan Plan: Assessment/Plan Narrative: 1 - Bilateral Infected Pressure/Friction Ulcers of the buttocks/sacrum/ischium/upper thighs - Culture of wounds - Begin Meropenem IV and adjust antibiotics as indicated - Consult Wound Care. Apply Allevyn dressings BID. 2 - Anemia of Chronic Disease - Begin on Iron 3 - Opiate Use Disorder - Continue Methadone at his clinic doses 4 - Depression/Anxiety - Continue Duloxetine and Olanzapine 5 - Asthma - Continue Prednisone, Albuterol and Advair 6 - Medical Obesity - Mobilize out of bed as much as he can tolerate.
--- NOTE | 2018-10-02 15:28 | PC.NURSE ---
wound assessment: largest wounds documented Left posterior knee approximately 6cm by 15cm, left scrotal wound 4cm x 3cm, Right posterior knee is 4cm by 8cm and right scrotal wound is 3cm x 6cm. Hydrocel foam dressing placed on open areas after they were debrided of fabric material from his sweat pants that was imbedded into the wounds. pt able to move from side to side in attempts at getting at the wounds. right heel just has dry skin on the bottom, no open areas. It took 2 people to clean and place dressings on the wounds. There is a foul odor from wounds and may be exaggerated by poor hygiene.
[2018-10-02] MEDS: MEROPENEM 2 GM in SODIUM CHLORIDE 0.9% 100 ML 200 ML IV (18:56)
[2018-10-02] MEDS: ALBUTEROL 2.5 MG/3 ML NEB (ADULT) INH (19:39)
[2018-10-02] MEDS: predniSONE 10 MG TABLET PO (20:52)
[2018-10-02] MEDS: GABAPENTIN 300 MG CAPSULE PO (20:52)
[2018-10-02] MEDS: HEPARIN 5,000 UNIT/ML VIAL 5000 UNIT SUBCUT (20:52)
--- NOTE | 2018-10-02 22:44 | PC.NURSE ---
1700- Pt arrived to room 219 from ED via [place] bed. Pt somnolent on arrival, but participated in transfer to bariatric bed. Somnolent until 1999, then wide awake asking for food and juice. Dinner at bedside table and proceded to eat as fast as he could, continued to ask for 3 juices, and something to eat I'm so hungry. SOB with and w/o exertion, wheezing throughout lungs, RT in to Tx with neb and INH. 92% 2L nc. slightly tachycardic. Skin ulcers to bilat knees and bilat scrotum, alevyns to all, wound culture taken and sent to lab @ 2250. Foul odor to pt. SBA to BSC to void 200mL clear mireya urine. LAC with ABO infusing. Pt told only 2 snacks per day, just like last time here. Pt severely forgetful, asking for food and juice. Call light in reach and bed alarm on.
[2018-10-03] VITALS (15 sets, daily range): BP systolic 118–158; BP diastolic 37–82; PULSE 73–102; RESP 16–20; TEMP 36–36.8; O2SAT 88–99
[2018-10-03] MEDS: ALBUTEROL 2.5 MG/3 ML NEB (ADULT) INH ×5 (00:05→23:17)
[2018-10-03] MEDS: MEROPENEM 2 GM in SODIUM CHLORIDE 0.9% 100 ML 200 ML IV ×2 (05:17→17:30)
[2018-10-03 05:47] LABS: Add Manual Diff / Slide Review NO; Basophils Absolute Auto 0 /uL (0-100); Basophils Percent Auto 0.3 % (0-2); Eosinophils Absolute Auto 0 /uL (0-450); Eosinophils Percent Auto 0.5 % (2-4); Hematocrit 32.2 % (41-53); Hemoglobin 10.1 g/dL (13.5-17.5); Lymphocytes Absolute Auto 1100 /uL (1100-4500); Lymphocytes Percent Auto 23.6 % (25-40); Mean Corpuscular HGB Conc 31.5 % (30-36); Mean Corpuscular Hemoglobin 25.6 PG (26-34); Mean Corpuscular Volume 81.4 fL (80-100); Monocytes Absolute Auto 500 /uL (0-900); Monocytes Percent Auto 10.6 % (3-14); Neutrophils Absolute Auto 2900 /uL (1500-7000); Platelet Count 174 X10^3/uL (150-400); Red Blood Cell Count 3.95 X10^6/uL (4.5-5.9); Red Cell Distribution Width 16.3 % (11.6-14.8); White Blood Cell Count 4.5 X10^3/uL (4.5-11.0)
[2018-10-03] MEDS: HEPARIN 5,000 UNIT/ML VIAL 5000 UNIT SUBCUT ×3 (08:13→21:39)
[2018-10-03] MEDS: GABAPENTIN 300 MG CAPSULE PO ×3 (08:13→21:39)
[2018-10-03] MEDS: OLANZapine ODT 10 MG TAB 20 MG PO (08:13)
[2018-10-03] MEDS: DULOXETINE 30 MG CAPSULE PO (08:13)
[2018-10-03] MEDS: METHADONE 10 MG TABLET 95 MG PO (08:19)
--- NOTE | 2018-10-03 08:19 | PC.NURSE ---
Patient asleep with no apparent respiratory distress at 0500. RR even. Had to wake to administer merepenem, and patient awoke stating he couldn't breathe and needed respiratory right now. Patient had got up to BSC with 1 assist. Open areas on testicles he refused to let me put anything on. He took off his oxygen to use BSC. refused to get into bed after voiding until RT gave him his tx. Explained that in order to receive ts he needed to get back into bed closer to RT equipment. Kept saying he was SOB, but would not put NC on. Finally he got into bed, replaced his NC, and received RT tx. Asking about all his morning meds, were they ready, neurontin,antianxiety meds etc. Told him they were due at 0900.
[2018-10-03] MEDS: ALBUTEROL HFA 60 PUFF/8 GM INH INH (08:36)
[2018-10-03] MEDS: HYDROCODONE/ACET 5/325 TABLET 1 TAB PO ×3 (08:40→18:06)
--- NOTE | 2018-10-03 14:52 | PC.NURSE ---
and Kiersten RN from wound care in to assess patients wounds.Pt up to bathroom to shower per MD orders. Pictures of wounds taken and zinc applied to wounds per Kiersten RN at the wound care center.Pt tolerated well, gait steady to and from bathroom with FWW. Gave one tab 5/325 vicodin.
--- NOTE | 2018-10-03 15:02 | PM.PN.1 ---
Subjective Date Patient Seen: 10/03/18 Interval history: Babatunde Fiztgerald is a 37-year-old male with a past medical history significant for asthma, anxiety, morbid obesity (BMI 83.1), obesity hypoventilation syndrome, RAJESH, chronic pain with methadone dependence, hypothyroidism, h/o nephrolithiasis (h/o basket retrieval and lithotripsy), recurrent sacral and perineal ulcers, and marijuana use who presented for increased pain related to his stage II pressure ulcerations of scrotum and posterior thighs. Overnight: The patient was stable and there were no acute events. Today the patient is resting in bed comfortably and in no acute distress. He continues to endorse buttock, scrotal and posterior thigh pain. He is afebrile and shows no signs of infection. He is somewhat emotionally labile and acts out when discussing discharge home and outpatient follow-up. He denies headache, shortness of breath, chest pain, abdominal pain, nausea, vomiting, fever, chills, dysuria, diarrhea or constipation. He is voiding and eliminating without difficulty. He is ambulating minimally with assistance. Discussed outpatient treatment and making transportation arrangements in advance in order for him to keep his appointments for continued wound care and healing and to avoid unnecessary hospitalizations. Exam Vital Signs (past 8 hours): - 10/03/18 08:18 10/03/18 08:35 10/03/18 08:37 Temperature 98.1 F Pulse Rate 102 H 90 Respiratory Rate 18 18 Blood Pressure 158/82 H Pulse Oximetry 88 L 96 97 10/03/18 08:45 10/03/18 11:33 10/03/18 13:25 Temperature 98.1 F Pulse Rate 99 H 88 Respiratory Rate 20 16 Blood Pressure 129/37 L Pulse Oximetry 96 96 94 Fraction of Inspired Oxygen 21 Oxygen Delivery Method Room Air Oxygen Flow Rate 2 Narrative Exam Narrative: General: Young morbidly obese gentleman lying in bed and in no acute distress, well-developed, well-nourished, appropriately interactive. HEENT: Normocephalic, atraumatic. External ears without defect. Pupils equal, round, and reactive to light. Anicteric sclerae, moist conjunctivae, and no lid lag. Neck: Supple with full range of motion. No lymphadenopathy or thyromegaly. Cardiovascular: Regular rate and rhythm without murmurs, rubs, or gallops appreciated. Pulmonary: Clear to auscultation bilaterally without crackles, wheezes, or rhonchi. Normal respiratory effort with no use of accessory muscles. Abdomen: Soft, obese, bowel sounds present, nontender, nondistended. No hepatosplenomegaly or masses appreciated. Extremities: No clubbing or cyanosis. +3 pitting edema to knees bilaterally. Skin: Normal temperature, turgor, and texture; several stage II pressure ulcers on scrotum and posterior thighs appear dry, without exudate, healing slowly. Neurological: Cranial nerves grossly intact. Psychiatric: Normal mood and affect. Alert and oriented to person, place, and time. Poor insight into disease process. Objective Labs Result Diagrams: 10/03/18 05:17 10/02/18 13:21 Labs: Laboratory Results - last 24 hr 10/03/18 05:17 WBC 4.5 D RBC 3.95 L Hgb 10.1 L Hct 32.2 L MCV 81.4 MCH 25.6 L MCHC 31.5 RDW 16.3 H Plt Count 174 Neut % (Auto) 65.0 Lymph % (Auto) 23.6 L [place] % (Auto) 10.6 Eos % (Auto) 0.5 L Baso % (Auto) 0.3 Neut # (Auto) 2900 Lymph # (Auto) 1100 [place] # (Auto) 500 Eos # (Auto) 0 Baso # (Auto) 0 Assessment & Plan Plan: Assessment/Plan Narrative: Babatunde Fitzgerald is a 37-year-old male with a past medical history significant for asthma, anxiety, morbid obesity (BMI 83.1), obesity hypoventilation syndrome, RAJESH, chronic pain with methadone dependence, hypothyroidism, h/o nephrolithiasis (h/o basket retrieval and lithotripsy), recurrent sacral and perineal ulcers, and marijuana use who presented for increased pain related to his stage II pressure ulcerations of scrotum and posterior thighs. 1. Acute on chronic stage II pressure ulcerations of scrotum and posterior thighs, present on admission. Active. -Repeat wound culture pending. -Continue Meropenem IV and adjust antibiotics as indicated. -Continue bariatric bed and wound care nursing recommendations. -Recently during previous hospital admission infected with MSSA and strep and completed 10 day course of doxycycline 09/13. Continue nystatin powder as needed. 2. Asthma , chronic, present on admission. Stable. -Continue duo nebs and slow taper (over months) of steroids, currently prednisone 10 mg daily. 3. Generalized pruritus, acute on chronic. Stable. -Continue Benadryl 25 mg every 6 hours as needed for pruritus. 4. Obstructive sleep apnea and obesity hypoventilation syndrome, chronic. Stable. -Continue CPAP during naps and while sleeping. -Needs updated outpatient sleep study. 5. Acute on chronic anxiety. Well controlled and stable. -Continue home meds Duloxetine 30 mg daily and olanzapine 20 mg daily. 6. Morbid obesity, present on admission. Stable. -Continue physical therapy and encourage patient to be up and ambulating 3 times a day. -Continue lifestyle modification with diet: 3 meals daily with 1 snack in between (3000 miki/day). -Mobilize out of bed as much as he can tolerate. 7. Chronic pain syndrome on methadone. Well controlled. -Continue methadone 95 mg daily, tramadol 100 mg twice daily, and gabapentin 300 mg 3 times daily. -May want to consider slow titration down on methadone dose as an outpatient. 8. Hypothyroidism, chronic. Stable. -Continue home meds. 9. Anemia of chronic disease, present on admission. Stable. - Begin on Iron. DVT prophylaxis: SubQ heparin.
[2018-10-03 16:12] LABS: Enterococcus species Not Detected (Not Detect)
[2018-10-03 16:13] LABS: Acinetobacter baumannii Not Detected (Not Detect); Candida albicans Not Detected (Not Detect); Candida glabrata Not Detected (Not Detect); Candida krusei Not Detected (Not Detect); Candida parapsilosis Not Detected (Not Detect); Candida tropicalis Not Detected (Not Detect); E. coli Not Detected (Not Detect); Enterobacter cloacae complex Not Detected (Not Detect); Enterobacteriaceae species Not Detected (Not Detect); Haemophilus influenzae Not Detected (Not Detect); KPC (carbapenem-resist gene) Not Detected (Not Detect); Methicillin-resistant gene Detected (Not Detect); Neisseria meningitidis Not Detected (Not Detect); Proteus species Not Detected (Not Detect); Pseudomonas aeruginosa Not Detected (Not Detect); Serratia marcescens Not Detected (Not Detect); Streptococcus agalactiae (Gr B Not Detected (Not Detect); Streptococcus pneumonia Not Detected (Not Detect); Streptococcus pyogenes (Gr A) Not Detected (Not Detect); Streptococcus species Not Detected (Not Detect)
[2018-10-03 16:18] LABS: Listeria monocytogenes Not Detected (Not Detect)
--- NOTE | 2018-10-03 16:28 | PC.NURSE ---
lab called pt had positive blood cx, bottle x 1/ staph. pt in house spoke with yard warehouse worker, Jeannie.
--- NOTE | 2018-10-03 17:37 | PC.NURSE ---
Wound Ostomy Nurse Note Mr. Fitzgerald is not new to me. I saw him during his last admission in August. I have been called to consult on the same wounds that he had back in August, in fact, Mr. Fitzgerald had a follow up appointment with us [facility] but he never showed and did not return our phone calls. Mr. Fitzgerald has been seen at the [facility] for these wounds over the last several years. Mr. Fitzgerald in is a bariatric bed with low air loss. He states he is in pain from the wounds and he cannot answer why he did not follow up with the wound care center. Dr. Moeller and I examined the wounds which are located on the posterior upper legs which are Stage II PI, these are partial thickness and do not look infected. He also continues to have at least two partial wounds on his lower abdomen near his penis which may be from scratching. As Mr. Fitzgerald was rolling himself onto his side, he kept scratching at his leg wounds. I can see that his finger nails are dirty and I was told by his nurse that she also has noticed that he does not have proper hand hygiene after toileting. I would recommend cleaning the wounds with Normal Saline or a wound bus cleaner then applying a zinc based skin barrier. I feel if he was to use a border foam or hydrocolloid that the bandages would not hold up to his movement in bed and getting in and out of bed. I would highly encourage Mr. Fitzgerald to have a follow up appointment with our wound care center so we can come up with methods and treatments for wound healing and prevention.
[2018-10-03] MEDS: predniSONE 10 MG TABLET PO (21:39)
[2018-10-04] VITALS (7 sets, daily range): BP systolic 114–129; BP diastolic 62–75; PULSE 78–92; RESP 16–18; TEMP 36.5–36.8; O2SAT 90–97
[2018-10-04] MEDS: HYDROCODONE/ACET 5/325 TABLET 1 TAB PO ×2 (04:20→13:52)
[2018-10-04] MEDS: MEROPENEM 2 GM in SODIUM CHLORIDE 0.9% 100 ML 200 ML IV (04:20)
[2018-10-04] MEDS: ALBUTEROL 2.5 MG/3 ML NEB (ADULT) INH ×3 (04:21→12:21)
[2018-10-04 06:27] LABS: Add Manual Diff / Slide Review NO; Basophils Absolute Auto 0 /uL (0-100); Basophils Percent Auto 0.1 % (0-2); Eosinophils Absolute Auto 0 /uL (0-450); Eosinophils Percent Auto 0.1 % (2-4); Hematocrit 32.6 % (41-53); Hemoglobin 10.1 g/dL (13.5-17.5); Lymphocytes Absolute Auto 700 /uL (1100-4500); Lymphocytes Percent Auto 18.3 % (25-40); Mean Corpuscular HGB Conc 30.9 % (30-36); Mean Corpuscular Hemoglobin 25.3 PG (26-34); Mean Corpuscular Volume 81.9 fL (80-100); Monocytes Absolute Auto 300 /uL (0-900); Monocytes Percent Auto 8.3 % (3-14); Neutrophils Absolute Auto 2800 /uL (1500-7000); Neutrophils Percent Auto 73.2 % (50-75); Platelet Count 111 X10^3/uL (150-400); Red Blood Cell Count 3.98 X10^6/uL (4.5-5.9); Red Cell Distribution Width 15.6 % (11.6-14.8); White Blood Cell Count 3.8 X10^3/uL (4.5-11.0)
[2018-10-04 07:09] LABS: Procalcitonin < 0.05 ng/mL (<0.5)
[2018-10-04 07:33] LABS: Staphylococcus species Detected (Not Detect)
[2018-10-04] MEDS: HEPARIN 5,000 UNIT/ML VIAL 5000 UNIT SUBCUT (07:46)
[2018-10-04] MEDS: OLANZapine ODT 10 MG TAB 20 MG PO (07:46)
[2018-10-04] MEDS: DULOXETINE 30 MG CAPSULE PO (07:46)
[2018-10-04] MEDS: METHADONE 10 MG TABLET 95 MG PO (07:46)
[2018-10-04] MEDS: GABAPENTIN 300 MG CAPSULE PO ×2 (07:46→13:51)
[2018-10-04] MEDS: SODIUM CHLORIDE 0.9% FLUSH 10 ML IV (12:04)
--- NOTE | 2018-10-04 12:09 | P.DS_ITS ---
History of Present Illness Date Patient Seen: 10/02/18 Chief complaint: Sore Knee Narrative: Written by Dr. Muhammad: This is a 37-year-old male with a BMI of 85.5, weighing 225 kg, who presents with severe pressure ulcerations, recurrently infected on the skin of the buttocks, sacrum, posterior upper thighs. He was just discharged from the hospital sometime in the last week with plans to continue wound care but returns due to increasing pain in this general area. He had missed his wound care follow-up appointment. A recent culture grew Staph and strep A. He was in the hospital from 09/03 to 09/15.He lives with his girlfriend on the [facility]. His physician is at the [facility] clinic. Several observations pertinent to this problem include the patient telling me in no uncertain terms that he does not want that heart healthy diet, he needs all the pepper and salt he normally wishes to have. He also is observed to be scratching and then rubbing these ulcers directly over them, pulling edges of the skin off and dropping it on the floor as the ulcer visibly enlarges in front of me. There have been no reported fevers, chills, systemic symptoms. Discharge Providers Date of admission: 10/02/18 15:14 Primary care physician: Gabe Meraz PA-C Discharge provider: Paige Henry DO Discharge Date: 10/04/18 Summary Discharge Diagnosis: 1. Chronic stage II pressure ulcerations of scrotum and posterior thighs, likely colonized with Staph and strep, present on admission. Stable. 2. Asthma, chronic, present on admission. Stable. 3. Generalized pruritus, acute on chronic. Stable. 4. Obstructive sleep apnea and obesity hypoventilation syndrome, chronic. Stable. 5. Acute on chronic anxiety. Well controlled and stable. 6. Morbid obesity, present on admission. Stable. 7. Chronic pain syndrome on methadone. Stable. 8. Hypothyroidism, chronic. Stable. 9. Anemia of chronic disease, present on admission. Stable. Hospital Course: Babatunde Fitzgerald is a 37-year-old male with a past medical history significant for asthma, anxiety, morbid obesity (BMI 83.1), obesity hypoventilation syndrome, RAJESH, chronic pain with methadone dependence, hypothyroidism, h/o nephrolithiasis (h/o basket retrieval and lithotripsy), recurrent sacral and perineal ulcers, and marijuana use who presented for increased pain related to his stage II pressure ulcerations of scrotum and posterior thighs. 1. Chronic stage II pressure ulcerations of scrotum and posterior thighs, likely colonized with Staph and strep, present on admission. Stable. -Repeated wound culture which grew staphylococcus and strep. -Discontinued Meropenem as patient is not infected. Discussed patient with Infectious Disease, Dr. Sarmiento, and based on lack of infectious signs and symptoms including: No purulent exudate from wounds, no tachycardia, normotensive, afebrile, no leukocytosis, procalcitonin normal, and continual wound cultures demonstrating Staphylococcus and strep patient is likely colonized. In the future, would recommend not admitting patient for chronic stage II pressure ulceration unless clear signs of infection. -Continued bariatric bed and wound care nursing recommendations. -Recently during previous hospital admission infected with MSSA and strep and completed 10 day course of doxycycline 09/13. Continue nystatin powder as needed. 2. Asthma, chronic, present on admission. Stable. -Continued duo nebs and slow taper (over months) of steroids, currently prednisone 10 mg daily. 3. Generalized pruritus, acute on chronic. Stable. -Will order Benadryl 25 mg every 6 hours if needed for pruritus. 4. Obstructive sleep apnea and obesity hypoventilation syndrome, chronic. Stable. -Continued CPAP during naps and while sleeping. -Needs updated outpatient sleep study. 5. Acute on chronic anxiety. Well controlled and stable. -Continued home meds Duloxetine 30 mg daily and olanzapine 20 mg daily. 6. Morbid obesity, present on admission. Stable. -Continued physical therapy and encouraged patient to be up and ambulating 3 times a day. -Continued lifestyle modification with diet: 3 meals daily with 1 snack in between (3000 miki/day). -Mobilized out of bed as much as he can tolerate. 7. Chronic pain syndrome on methadone. Well controlled. -Continued methadone 95 mg daily, tramadol 100 mg twice daily, and gabapentin 300 mg 3 times daily. -May want to consider slow titration down on methadone dose as an outpatient. 8. Anemia of chronic disease, present on admission. Stable. -No overt signs of bleeding. -Continued to monitor CBC daily. Status at Discharge Cognitive/behavioral status at discharge: Patient has poor insight into disease process and continually does not follow up at scheduled appointments or answer his phone regarding appointments. Functional status at discharge: independent ambulation Exam Vital Signs (past 8 hours): - 10/04/18 04:12 10/04/18 04:22 10/04/18 04:58 Temperature 97.7 F Pulse Rate 92 H 86 Respiratory Rate 18 18 Blood Pressure 129/75 Pulse Oximetry 95 96 95 10/04/18 07:30 10/04/18 08:01 10/04/18 08:21 Temperature 98.2 F Pulse Rate 78 78 Respiratory Rate 18 Blood Pressure 114/62 Pulse Oximetry 90 L 90 L 97 Fraction of Inspired Oxygen 21 Oxygen Delivery Method Room Air Oxygen Flow Rate 0 Narrative Exam Narrative: General: Young morbidly obese gentleman lying in bed and in no acute distress, well-developed, well-nourished, appropriately interactive. HEENT: Normocephalic, atraumatic. External ears without defect. Pupils equal, round, and reactive to light. Anicteric sclerae, moist conjunctivae, and no lid lag. Neck: Supple with full range of motion. No lymphadenopathy or thyromegaly. Cardiovascular: Regular rate and rhythm without murmurs, rubs, or gallops appreciated. Pulmonary: Clear to auscultation bilaterally without crackles, wheezes, or rhonchi. Normal respiratory effort with no use of accessory muscles. Abdomen: Soft, obese, bowel sounds present, nontender, nondistended. No hepatosplenomegaly or masses appreciated. Extremities: No clubbing or cyanosis. +3 pitting edema to knees bilaterally. Skin: Normal temperature, turgor, and texture; several stage II pressure ulcers on scrotum and posterior thighs appear dry, without exudate, healing slowly, and do not appear infected. Neurological: Cranial nerves grossly intact. Psychiatric: Normal mood and affect. Alert and oriented to person, place, and time. Poor insight into disease process. Objective Labs Result Diagrams: 10/04/18 06:04 10/02/18 13:21 Labs: Laboratory Results - last 24 hr 10/02/18 10/04/18 10/04/18 13:21 06:04 06:04 WBC 3.8 L RBC 3.98 L Hgb 10.1 L Hct 32.6 L MCV 81.9 MCH 25.3 L MCHC 30.9 RDW 15.6 H Plt Count 111 L Neut % (Auto) 73.2 Lymph % (Auto) 18.3 L [place] % (Auto) 8.3 Eos % (Auto) 0.1 L Baso % (Auto) 0.1 Neut # (Auto) 2800 Lymph # (Auto) 700 L [place] # (Auto) 300 Eos # (Auto) 0 Baso # (Auto) 0 Procalcitonin < 0.05 A. baumannii (PCR) Not detected Sonja albicans (PCR) Not detected C. glabrata (PCR) Not detected C. krusei (PCR) Not detected C. parapsilosis (PCR) Not detected C. tropicalis (PCR) Not detected Enterobacteriac sp PCR Not detected E. cloacae complex PCR Not detected Enterococcus sp PCR Not detected E. coli (PCR) Not detected H. influenzae (PCR) Not detected Klebsiella oxytoca PCR Not detected Klebsiella pneumoniae Not detected List. monocytogenes PCR Not detected N. meningitidis (PCR) Not detected Proteus species (PCR) Not detected Serratia marcescens PCR Not detected Staphylococcus sp PCR Detected H Staph aureus (PCR) Not detected mecA-Methicil Res Gene Detected H Streptococcus sp PCR Not detected Group A Strep (PCR) Not detected Strep agalactiae (PCR) Not detected Strep pneumoniae (PCR) Not detected P. aeruginosa (PCR) Not detected Jonathon/B-Vanco Res Genes Not Reportable KPC-Carbap Res Gene PCR Not detected Discharge Plan Discharge Plan Patient Disposition: Home Discharge comment: You're being discharged home. Your wounds are not infected and are only colonized with bacteria that live on the skin. Please follow-up with your PCP in 1 week and wound care at your scheduled appointment. Please use good hand hygiene and wash your hands often, especially after going to the bathroom. Discharge Med Rec/Prescriptions Prescriptions: Continue fluticasone-salmeterol [Advair Diskus] 500 MCG/50 MCG blister with device 1 puff INH BID Qty: 2 RF: 5 methadone 10 MG tablet 95 mg PO QDAY Qty: 0 RF: 0 prednisone 10 mg tablet 10 mg PO BID RF: 0 lorazepam [Ativan] 1 mg tablet 1 mg PO BID-TID PRN (Reason: anxiety) Qty: 10 RF: 0 olanzapine 20 mg tablet 20 mg PO DAILY Qty: 10 RF: 0 gabapentin [Neurontin] 300 mg Capsule 300 mg PO TID Qty: 180 RF: 0 duloxetine [Cymbalta] 30 mg Capsule,Delayed Release(Dr/Ec) 30 mg PO DAILY Qty: 90 RF: 0 hydrocodone-acetaminophen [Rosine] 7.5-325 mg tablet 1 tab PO Q4-6H PRN (Reason: pain) Qty: 20 RF: 0 albuterol sulfate 90 mcg/actuation HFA aerosol inhaler 2 puff INHALATION Q4-6H PRN (Reason: shortness of breath or wheezing) Qty: 18 RF: 0 albuterol sulfate 2.5 MG/3 ML solution for nebulization 3 ml INH Q4HP PRN (Reason: Wheezing) Qty: 360 RF: 0 Follow up/Referrals: Gabe Meraz PA-C [Primary Care Provider] - 1 Week Scott Moncada MD [Physician] - 10/10/18 2:00 pm (10/10 @ 2:[address] moncada @ wound care center located @ [facility] [phone]) Provider Discharge Instructions Diet: Carb-consistent/Diabetic, Low-fat, Low-sodium and Low-cholesterol Diet comment: limit your carbohydrates ie. Juices, popsicles, pasta, potato, bread, etc Activity: Activity as tolerated. Skin/Wound/Dressing Care Report to your healthcare provider any signs of infection, such as:: chills, fever Other wound treatment: Please keep your follow-up appointment with wound care. Please continue to address your wounds as instructed by wound care. Visit Report/Discharge Packet Instructions: DI for Pressure Sores, How To Wash Your Hands Visit Report Forms: Stroke Signs & Symptoms Discharge Data Primary Care Provider: Gabe Meraz Attending Provider: Alyssa Muhammad Admit Date/Time: 10/02/18 15:14 Discharges patient from system. Discharge Date/Time: 10/04/18 15:50
--- NOTE | 2018-10-05 06:58 | CM.DPC ---
DCP/continued: Received verbal referral from Dr. Henry in AM rounds on Wednesday10-04-18 that patient medically cleared for d/c home. Patient seen by wound care and outpatient appointment scheduled for October 10 at 2:00pm. COOPERATIVE EXTENSION AGENT met with patient on 10-04-18 explained to patient concerns from medical team about patient not following up as outpatient follow up, multiple hospitalizations, and non-compliance of his medical care. Patient reports that he did not go to his wound care appointment because he did not have ride. Notified patient that he does have transport benefit through his Medicaid/[employer]. Patient aware and reports that he has it under control for next appointment. Encouraged patient to follow up with [facility] Supervisor [place] Kateryna phone# [phone] if assistance with transport or for any additional community needs. Patient reports that he is aware and agreeable. COOPERATIVE EXTENSION AGENT placed call to Kateryna at [facility] re: above. She reports that they are involved but can only intervene so much. Patient is alert and oriented adult male that continues to make poor choices. Eloisa reports that patient's PCP is now at [facility]/Dr. Kirill Matute ph# [phone]. She suggests calling agency next admission to assist with coordination of d/c plan. COOPERATIVE EXTENSION AGENT in agreement. Unfortunately, unable to complete during this admit because signed medical release by patient required because [facility] primarily treats substance abuse/mental health. Unable to have signed do to lateness in the day and further discussion with patient re: agreement. Patient discharged on Wednesday10-04-18 at approximately 4:00pm. Transport set up by [facility]/[place] through Medicaid. RN reports patient safe to transport via cab. P: Home today. Recommend next admission to [facility] that consent signed and [facility] and Supervisor [place] at [facility] called to assist in preventing future admissions and compliance with care. JOSÉ LUIS Noriega Discharge Planning/Care Management CM Discharge Assessment Start: 10/03/18 16:11 Freq: Status: Discharge Protocol: Document 10/03/18 16:11 KJS (Rec: 10/03/18 16:23 KJS [id number]) Discharge Planning Assessment Assigned Talent Development Analyst JOSÉ LUIS Noriega Contact Information Lianna Fitzgerald (Mother) [phone] Advance Directives? No Advance Directives on File No History Provided By Patient Medical Record Has Patient been admitted in last 30 Yes days? Comment Patient with several return visits to [facility] secondary to non-compliance. Prior Living Arrangements House Household Members significant other Type of transporation used prior to Relies on Others admit Is patient alert and oriented? Yes Needs Assistance With Grooming [employer] Home Chores / Shopping Caregiver for Another No Comment Patient has walker but reports that it does not work well. Patient/Family Preference Assisted Facility Comment Large young man, Methadone program, marijuana, 0-2 drinks daily; polysubstance. Needs wound care. Patient does not seem to be adequately care for himself at home. Patient could possibly utilize [employer] for transport if needed at d/c pending pt's d/c plan. Discharge Plan Assisted Facility Transportation Arrangement Pending discussion w/pt; family vs Medicaid transport vs [employer] Referrals Initiated Other Additional Comment Needs unclear at this time, likely could benefit from SNF but may refuse Comment Reviewed chart. Patient is a 37yr old male admitted to . with cellulitis of scrotum. PCP is Dr. Meraz. Primary payor is 1)Medicaid 2)[facility]. [facility] for same complaint of sacral and perineal ulcers. CM team has seen patient on multiple admissions and attempted SNF, HH, and outpatient therapy. Patient has had difficulty with compliance. Patient has mentioned that he prefers to stay in institution so that he can get the care he needs. Previous stays patient has refused SNF. HH agencies have refused given patient's non- compliance. COOPERATIVE EXTENSION AGENT spoke with K[facility] and Dr. Henry. Kiersten reports that they are willing to make another outpatient appointment for patient. Patient will continue to be encouraged to participate in his recovery. D/C date expected tomorrow. COOPERATIVE EXTENSION AGENT to meet with patient prior to discharge to encourage follow up and social worker assistant Eloisa on [facility] phone# [phone]. Patient previously has been alert and oriented during each visit. Therefore, he continues to make bad choices re: well being and health care decisions. Will discuss with Eloisa and request some type of intervention from [facility]. If not may consider A[facility]. for self neglect and continued hosptilizations. Review Status In Process Please Provide Date Initial DC 10/03/18 Assessment Was Performed Next Review Type Continued Stay Review Document 10/05/18 06:58 KJS (Rec: 10/05/18 06:58 KJS [id number]) Discharge Planning Assessment Assigned Talent Development Analyst JOSÉ LUIS Noriega Contact Information Lianna Fitzgerald (Mother) Advance Directives? No Advance Directives on File No History Provided By Patient Medical Record Has Patient been admitted in last 30 Yes days? Comment Patient with several return visits to [facility] secondary to non-compliance. Prior Living Arrangements House Household Members significant other Type of transporation used prior to Relies on Others admit Is patient alert and oriented? Yes Needs Assistance With Grooming [employer] Home Chores / Shopping Caregiver for Another No Comment Patient has walker but reports that it does not work well. Patient/Family Preference Assisted Facility Comment Large young man, Methadone program, marijuana, 0-2 drinks daily; polysubstance. Needs wound care. Patient does not seem to be adequately care for himself at home. Patient could possibly utilize [employer] for transport if needed at d/c pending pt's d/c plan. Discharge Plan Assisted Facility Transportation Arrangement Pending discussion w/pt; family vs Medicaid transport vs [employer] Referrals Initiated Other Additional Comment Needs unclear at this time, likely could benefit from SNF but may refuse Comment Reviewed chart. Patient is a 37yr old male admitted to . with cellulitis of scrotum. PCP is Dr. Meraz. Primary payor is 1)Medicaid 2)[facility]. [facility] to . for same complaint of sacral and perineal ulcers. CM team has seen patient on multiple admissions and attempted SNF, HH, and outpatient therapy. Patient has had difficulty with compliance. Patient has mentioned that he prefers to stay in institution so that he can get the care he needs. Previous stays patient has refused SNF. HH agencies have refused given patient's non- compliance. COOPERATIVE EXTENSION AGENT spoke with Kiersten at [facility] and Dr. Henry. Kiersten reports that they are willing to make another outpatient appointment for patient. Patient will continue to be encouraged to participate in his recovery. D/C date expected tomorrow. COOPERATIVE EXTENSION AGENT to meet with patient prior to discharge to encourage follow up and social worker assistant Eloisa on [facility] phone# [phone]. Patient previously has been alert and oriented during each visit. Therefore, he continues to make bad choices re: well being and health care decisions. Will discuss with Eloisa and [place] If not may consider [facility] for self neglect and continued hosptilizations. Review Status In Process Please Provide Date Initial DC 10/03/18 Assessment Was Performed Next Review Type Continued Stay Review
== END 2018-10-04 15:50 | disposition home or self-care (01) ==
LOC: ED 14:49 → AC 10-03 11:00
PROVIDERS: Internal Medicine; Admitting Provider Family Medicine; Emergency Provider Nurse Practitioner Family; PCP Physician Assistant; Visit Provider Family Medicine
DX: L89.302 Pressure ulcer of unspecified buttock, stage 2 (principal); L89.892 Pressure ulcer of other site, stage 2; Z68.45 Body mass index [BMI] 70 or greater, adult; E66.01 Morbid (severe) obesity due to excess calories; J45.909 Unspecified asthma, uncomplicated; F41.9 Anxiety disorder, unspecified; L29.9 Pruritus, unspecified; G89.4 Chronic pain syndrome; E03.9 Hypothyroidism, unspecified; D63.8 Anemia in other chronic diseases classified elsewhere; G47.33 Obstructive sleep apnea (adult) (pediatric); F11.90 Opioid use, unspecified, uncomplicated
CPT/HCPCS: 36415; 36591; 80053; 83605; 84145; 85025; 87040; 87070; 87077; 87147; 87150; 87186; 87205; 94640; 94760; 96361; 96374; 99283; 99285; G0378; J1644; J2060; J2185; J7613

== ENCOUNTER 2018-10-07 09:44 | Emergency (ER) | payer MEDICAID, OTHER, SELFPAY ==
[2018-10-02 16:47] VITALS: BMI 85.4
[2018-10-07 09:38] VITALS: BP 121/69; PULSE 97; RESP 22; TEMP 36.8; O2SAT 96
[2018-10-07] MEDS: ALBUTEROL/IPRATROPIUM 3 ML AMPUL INH (10:04)
[2018-10-07 10:08] VITALS: PULSE 95; RESP 16; O2SAT 90
[2018-10-07] MEDS: OLANZapine ODT 10 MG TAB 20 MG PO (10:08)
--- NOTE | 2018-10-07 10:10 | ED.ANXIETY ---
HPI - Anxiety General Chief Complaint: Anxiety Stated Complaint: Anxiety, out of meds Time Seen by Provider: 10/07/18 09:45 Source: patient and EMS Mode of arrival: EMS Limitations: no limitations History of Present Illness HPI narrative: 37-year-old male, nonsmoker with history of asthma and anxiety presents by EMS because he feels tearful, fearful and anxious. He has not had access to his olanzapine for the past day or 2. He has been going back and forth with his primary care provider about the proper dosing which had apparently been settled but there is a hiccup at the pharmacy. The patient denies any suicidal or homicidal ideation. He denies any respiratory distress, fever or chills. He has known decubitus sores on his buttocks which have been appropriately treated by local wound care. MD complaint: anxiety Onset (ago): hour(s) Severity: mild Quality: constant Place: home History of similar episodes: Yes Provoking factors: medication change Relieving factors: nothing Exacerbating factors: nothing Associated symptoms: denies other symptoms Related Data Home Medications Medication Instructions Recorded Confirmed methadone 95 mg PO QDAY #0 05/07/17 10/07/18 prednisone 10 mg PO BID 08/05/18 10/07/18 Previous Rx's Medication Instructions Recorded fluticasone-salmeterol [Advair 1 puff INH BID #2 inh 04/28/17 Diskus] albuterol sulfate 2 puff INHALATION Q4-6H PRN #18 07/11/18 gram albuterol sulfate 3 ml INH Q4HP PRN #360 ml 07/27/18 lorazepam [Ativan] 1 mg PO BID-TID PRN #10 tab 08/26/18 olanzapine 20 mg PO DAILY #10 tab 08/26/18 duloxetine [Cymbalta] 30 mg PO DAILY #90 cap 09/15/18 gabapentin [Neurontin] 300 mg PO TID #180 cap 09/15/18 hydrocodone-acetaminophen [[employer]] 1 tab PO Q4-6H PRN #20 tab 09/15/18 Allergies Allergy/AdvReac Type Severity Reaction Status Date / Time NSAIDS (Non-Steroidal Allergy Unknown ASTHMA Verified 10/02/18 12:29 Anti-Inflamma FLARE UPS [NSAIDS (NON-STEROIDAL ANTI-INFLAMMA] ibuprofen AdvReac Mild nausea, GI Verified 10/02/18 12:29 upset Review of Systems Constitutional Denies chills, Denies fever(s), Denies lethargy and Denies weakness Eyes Denies change in vision, Denies eye discharge, Denies irritation and Denies loss of vision ENT Ears, Nose, Mouth, and Throat: Denies change in voice, Denies neck pain and Denies sore throat Cardiovascular Denies chest pain, Denies irregular heart rhythm, Denies lightheadedness, Denies palpitations, Denies dyspnea, Denies dyspnea on exertion and Denies orthopnea Respiratory Denies cough, Denies dyspnea, Denies dyspnea on exertion and Denies wheezing Gastrointestinal Gastrointestinal: Denies abdominal pain, Denies change in bowel habits, Denies diarrhea, Denies nausea and Denies vomiting Genitourinary Denies hematuria, Denies flank pain, Denies urinary incontinence and Denies urinary urgency Musculoskeletal Denies neck pain Integumentary/Breasts Denies pruritus, Denies erythema, Denies rash and Denies wounds Neurologic Denies confusion, Denies loss of vision and Denies weakness Psychiatric Reports anxiety, Denies confusion, Denies depression, Denies homicidal ideation and Denies suicidal ideation Endocrine Denies palpitations Hematologic/Lymphatic Denies easy bruising Allergic/Immunologic Denies wheezing [facility] Medical History Anxiety (Acute) Asthma (Acute) Methadone use disorder, mild, in controlled environment (Chronic) Morbid obesity (Chronic) Surgical History H/O vertebral fracture repair (Chronic) History of hip surgery (Chronic) Family History Mother Diabetes mellitus Father No problems noted. Social History household members: significant other Smoking Status: Former smoker Exam Narrative Exam Narrative: GEN: A 37-year-old male, morbidly obese, anxious, crying and tearful EYES: Pupils are equal, round, and reactive to light and accommodation. Extraoccular muscles are intact bilaterally. There is no subconjunctival hemorrhage or exudate. CHEST: Lungs are clear to auscultation bilaterally and free of wheezes, rales, or rhonchi. Heart rate is regular rhythm, there are no murmurs, clicks, rubs, or gallops. There is no chest wall tenderness. ABD: Abdomen is soft and nontender. There is no guarding or rebound. Bowel sounds are normal in all 4 quadrants. There is no mass or organomegaly. EXT: Full painless ROM of all extremities with no loss of sensation or strength. SKIN: Warm, pink, and dry. No erythema or rash Initial Vital Signs Initial Vital Signs: Vital Signs Temperature 98.2 F 10/07/18 09:38 Pulse Rate 97 H 10/07/18 09:38 Respiratory Rate 22 10/07/18 09:38 Blood Pressure 121/69 10/07/18 09:38 Pulse Oximetry 96 10/07/18 09:38 Course Orders Ordered: ED Orders 10/07/18 10:02 Consult to Respiratory Therapy Evaluate & Treat Discontinued Medications Albuterol/Ipratropium (Duoneb) 3 ml INH NOW ONE Stop: 10/07/18 10:03 Last Admin: 10/07/18 10:04 Dose: 3 ml Olanzapine (Zyprexa Zydis) 20 mg PO NOW ONE Stop: 10/07/18 09:58 Last Admin: 10/07/18 10:08 Dose: 20 mg Reevaluation(s) Reevaluation #1: Patient feeling much better after all and the pain. Patient visibly relieved to hear that his prescriptions waiting for him Consultations Consultation #1: call to Dr. Hernández at clinic who verifies that he has sent olanzapine 15 mg number 30 to the local pharmacy. and will follow closely Vital Signs - 8 hr 10/07/18 09:38 10/07/18 10:08 10/07/18 10:12 Temperature 98.2 F Pulse Rate 97 H 95 H 98 H Respiratory Rate 22 16 20 Blood Pressure 121/69 Pulse Oximetry 96 90 L 98 Discharge Plan Departure Patient Disposition: Home Clinical Impression: Anxiety, Noncompliance with medication regimen Discharge Date/Time: 10/07/18 11:25 Interventions: ED Discharge Assessment Last Done: 10/07/18 11:28 Instructions: DI for Anxiety -- Adult Activity Restrictions/Additional Instructions: *You have been diagnosed with [ anxiety, unintentional medical noncompliance ] *What to do: *Take medications as directed *Follow up with your primary care provider in 2-3 days, call for an appointment. Let them know you were seen in the Emergency Department and that we ask that you be seen in follow up *Return to ER if you should have any new, worsening or concerning symptoms Prescriptions: No Action fluticasone-salmeterol [Advair Diskus] 500 MCG/50 MCG blister with device 1 puff INH BID Qty: 2 RF: 5 methadone 10 MG tablet 95 mg PO QDAY Qty: 0 RF: 0 prednisone 10 mg tablet 10 mg PO BID RF: 0 lorazepam [Ativan] 1 mg tablet 1 mg PO BID-TID PRN (Reason: anxiety) Qty: 10 RF: 0 olanzapine 20 mg tablet 20 mg PO DAILY Qty: 10 RF: 0 gabapentin [Neurontin] 300 mg Capsule 300 mg PO TID Qty: 180 RF: 0 duloxetine [Cymbalta] 30 mg Capsule,Delayed Release(Dr/Ec) 30 mg PO DAILY Qty: 90 RF: 0 hydrocodone-acetaminophen [[employer]] 7.5-325 mg tablet 1 tab PO Q4-6H PRN (Reason: pain) Qty: 20 RF: 0 albuterol sulfate 90 mcg/actuation HFA aerosol inhaler 2 puff INHALATION Q4-6H PRN (Reason: shortness of breath or wheezing) Qty: 18 RF: 0 albuterol sulfate 2.5 MG/3 ML solution for nebulization 3 ml INH Q4HP PRN (Reason: Wheezing) Qty: 360 RF: 0 Referrals: Gabe Meraz PA-C [Primary Care Provider] - Rama Hernández MD [Non-Staff] -
[2018-10-07 10:12] VITALS: PULSE 98; RESP 20; O2SAT 98
== END 2018-10-07 11:25 | disposition home or self-care (01) ==
PROVIDERS: Emergency Provider Emergency Medicine; PCP Physician Assistant
DX: F41.9 Anxiety disorder, unspecified (principal); Z91.14 Patient's other noncompliance with medication regimen
CPT/HCPCS: 94640; 99282; 99283

== ENCOUNTER 2018-10-09 17:31 | Emergency (ER) | payer MEDICAID, OTHER, SELFPAY ==
[2018-10-02 16:47] VITALS: BMI 85.4
[2018-10-09 17:40] VITALS: PULSE 116; RESP 18; TEMP 37.3; O2SAT 95
--- NOTE | 2018-10-09 18:29 | ED.WOUNDLAC ---
HPI - Wound/Laceration General Chief Complaint: Wound/Laceration Stated Complaint: Sores on legs Time Seen by Provider: 10/09/18 18:07 Source: patient Mode of arrival: ambulatory History of Present Illness HPI narrative: Patient is a 37-year-old male presenting with on wound pain. He is morbidly obese with chronic pressure ulcers. He was admitted twice recently the last time he was discharged on 10/04/2018. The patient had missed wound consultation appointments. Infectious Disease was consulted during that admission. Patient is tachycardic but is crying and upset. He has low-grade fever. He has again missed his wound consultation appointment. He is not currently on antibiotics and complaining of pain. He says that of a smell however patient has extremely poor hygiene at baseline. Related Data Home Medications Medication Instructions Recorded Confirmed methadone 95 mg PO QDAY #0 05/07/17 10/07/18 prednisone 10 mg PO BID 08/05/18 10/07/18 Previous Rx's Medication Instructions Recorded fluticasone-salmeterol [Advair 1 puff INH BID #2 inh 04/28/17 Diskus] albuterol sulfate 2 puff INHALATION Q4-6H PRN #18 07/11/18 gram albuterol sulfate 3 ml INH Q4HP PRN #360 ml 07/27/18 lorazepam [Ativan] 1 mg PO BID-TID PRN #10 tab 08/26/18 olanzapine 20 mg PO DAILY #10 tab 08/26/18 duloxetine [Cymbalta] 30 mg PO DAILY #90 cap 09/15/18 gabapentin [Neurontin] 300 mg PO TID #180 cap 09/15/18 hydrocodone-acetaminophen [[employer]] 1 tab PO Q4-6H PRN #20 tab 09/15/18 Allergies Allergy/AdvReac Type Severity Reaction Status Date / Time NSAIDS (Non-Steroidal Allergy Unknown ASTHMA Verified 10/02/18 12:29 Anti-Inflamma FLARE [employer] [NSAIDS (NON-STEROIDAL ANTI-INFLAMMA] ibuprofen AdvReac Mild nausea, GI Verified 10/02/18 12:29 upset Review of Systems Review of Systems ROS Unobtainable: All systems reviewed & are unremarkable except as noted in HPI and below Constitutional Denies chills, Denies fever(s), Denies lethargy and Denies weakness Cardiovascular Denies chest pain, Denies irregular heart rhythm, Denies lightheadedness, Denies palpitations, Denies dyspnea, Denies dyspnea on exertion and Denies orthopnea Respiratory Denies cough, Denies dyspnea, Denies dyspnea on exertion and Denies wheezing Gastrointestinal Gastrointestinal: Denies abdominal pain, Denies change in bowel habits, Denies diarrhea, Denies nausea and Denies vomiting Integumentary/Breasts Reports as per HPI Neurologic Denies weakness Endocrine Denies palpitations Allergic/Immunologic Denies wheezing [facility] Social History household members: significant other Smoking Status: Former smoker Exam Initial Vital Signs Initial Vital Signs: Vital Signs Temperature 99.1 F 10/09/18 17:40 Pulse Rate 116 H 10/09/18 17:40 Respiratory Rate 18 10/09/18 17:40 Pulse Oximetry 95 10/09/18 17:40 Const General: in distress (Crying in pain) Nutritional Appearance: obese morbidly obese Orientation: alert, awake and oriented x3 Neck Neck: normal visual inspection and full ROM Chest Chest: normal inspection of the chest Resp Effort & Inspection: normal respiratory effort Auscultation: clear to auscultation bilaterally, no rales, no rhonchi and no wheezes Cardio Rate: regular rate Rhythm: regular rhythm Heart Sounds: S1 normal and S2 normal Skin General: No erythema Wounds: wounds noted Other: Wounds have no foul smell no surrounding erythema no gross drainage Right posterior thigh: 9 x 6 cm no surrounding erythema no drainage Left posterior thigh 9 x 5 cm no surrounding erythema no drainage Scrotal area: Also no surrounding erythema or drainage, 3 different areas the largest measuring 2.5 x 5 cm Neuro General: alert, awake and oriented x3 Course Orders Ordered: ED Orders 10/09/18 18:44 Basic Metabolic Panel Stat Complete Blood Count AUTO DIFF Stat Lactate (Lactic Acid) Stat Procalcitonin Stat 10/09/18 18:45 Blood Culture Stat Discontinued Medications Hydromorphone HCl (Dilaudid) 1 mg IV NOW ONE Stop: 10/09/18 18:29 Last Admin: 10/09/18 18:52 Dose: 1 mg Hydromorphone HCl (Dilaudid) 0.5 mg IV NOW ONE Stop: 10/09/18 19:39 Last Admin: 10/09/18 19:48 Dose: 0.5 mg Vital Signs - 8 hr 10/09/18 17:40 10/09/18 19:42 Temperature 99.1 F 99.5 F Pulse Rate 116 H 106 H Respiratory Rate 18 30 H Blood Pressure [Left Arm] 108/55 L Pulse Oximetry 95 92 MDM - Wound/Laceration Lab Data Attestation: I reviewed the patient's lab results. Result diagrams: 10/09/18 18:44 10/09/18 18:44 Lab Results 10/09/18 10/09/18 10/09/18 Range/Units 18:44 18:44 18:44 WBC 6.6 (4.5-11.0) X10^3/uL RBC 4.39 L (4.5-5.9) X10^6/uL Hgb 11.1 L (13.5-17.5) g/dL Hct 35.8 L (41-53) % MCV 81.6 (80-100) fL MCH 25.4 L (26-34) PG MCHC 31.1 (30-36) % RDW 16.4 H (11.6-14.8) % Plt Count 225 (150-400) X10^3/uL Neut % (Auto) 66.8 (50-75) % Lymph % (Auto) 23.3 L (25-40) % [place] % (Auto) 9.2 (3-14) % Eos % (Auto) 0.3 L (2-4) % Baso % (Auto) 0.4 (0-2) % Neut # (Auto) 4400 (9503-8002) /uL Lymph # (Auto) 1500 (6400-4486) /uL [place] # (Auto) 600 (0-900) /uL Eos # (Auto) 0 (0-450) /uL Baso # (Auto) 0 (0-100) /uL Sodium 140 (137-145) mmol/L Potassium 3.9 (3.4-5.1) mmol/L Chloride 103 (98-107) mmol/L Carbon Dioxide 31 (22-32) mmol/L BUN 7 L (9-20) mg/dL Creatinine 0.60 L (0.66-1.25) mg/dL Estimated GFR > 60.0 (>60) mL/min BUN/Creatinine Ratio 11.7 (6-22) Glucose 122 H (70-100) mg/dL Lactate (0.7-2.1) mmol/L Calcium 8.4 (8.4-10.2) mg/dL Procalcitonin < 0.05 (<0.5) ng/mL 10/09/18 Range/Units 18:44 WBC (4.5-11.0) X10^3/uL RBC (4.5-5.9) X10^6/uL Hgb (13.5-17.5) g/dL Hct (41-53) % MCV (80-100) fL MCH (26-34) PG MCHC (30-36) % RDW (11.6-14.8) % Plt Count (150-400) X10^3/uL Neut % (Auto) (50-75) % Lymph % (Auto) (25-40) % [place] % (Auto) (3-14) % Eos % (Auto) (2-4) % Baso % (Auto) (0-2) % Neut # (Auto) (3524-8420) /uL Lymph # (Auto) (1900-1712) /uL [place] # (Auto) (0-900) /uL Eos # (Auto) (0-450) /uL Baso # (Auto) (0-100) /uL Sodium (137-145) mmol/L Potassium (3.4-5.1) mmol/L Chloride (98-107) mmol/L Carbon Dioxide (22-32) mmol/L BUN (9-20) mg/dL Creatinine (0.66-1.25) mg/dL Estimated GFR (>60) mL/min BUN/Creatinine Ratio (6-22) Glucose (70-100) mg/dL Lactate 1.6 (0.7-2.1) mmol/L Calcium (8.4-10.2) mg/dL Procalcitonin (<0.5) ng/mL [facility] Narrative Medical decision making narrative: patient initially had low-grade fever and tachycardic however he was quite upset. There is no obvious source of infection around the wounds. There is no drainage no foul smell from the wounds no surrounding erythema. No leukocytosis normal procalcitonin and lactic acid. At this time I do not believe these to be acutely infected, he does not appear septic. Patient's pain is much improved after Dilaudid. He does take methadone daily for chronic ongoing pain, and has appointment tomorrow. Discharge Plan Departure Patient Disposition: Home Clinical Impression: Pressure ulcer, stage 2 Discharge Date/Time: 10/09/18 20:03 Interventions: ED Discharge Assessment Last Done: 10/09/18 20:03 Instructions: How to Prevent Pressure Ulcers, DI for Pressure Sores Activity Restrictions/Additional Instructions: *You have been diagnosed with Pressure ulcers *What to do: keep dressings on for up to 1 week. You may shower and bathe with them. *Continue to take medications as directed *Follow up with your primary care provider in 2-3 days, you Need to follow up with wound care *Return to ER if you should have fever more than 100.4, redness around the skin, any new, worsening or concerning symptoms Prescriptions: No Action fluticasone-salmeterol [Advair Diskus] 500 MCG/50 MCG blister with device 1 puff INH BID Qty: 2 RF: 5 methadone 10 MG tablet 95 mg PO QDAY Qty: 0 RF: 0 prednisone 10 mg tablet 10 mg PO BID RF: 0 lorazepam [Ativan] 1 mg tablet 1 mg PO BID-TID PRN (Reason: anxiety) Qty: 10 RF: 0 olanzapine 20 mg tablet 20 mg PO DAILY Qty: 10 RF: 0 gabapentin [Neurontin] 300 mg Capsule 300 mg PO TID Qty: 180 RF: 0 duloxetine [Cymbalta] 30 mg Capsule,Delayed Release(Dr/Ec) 30 mg PO DAILY Qty: 90 RF: 0 hydrocodone-acetaminophen [[employer]] 7.5-325 mg tablet 1 tab PO Q4-6H PRN (Reason: pain) Qty: 20 RF: 0 albuterol sulfate 90 mcg/actuation HFA aerosol inhaler 2 puff INHALATION Q4-6H PRN (Reason: shortness of breath or wheezing) Qty: 18 RF: 0 albuterol sulfate 2.5 MG/3 ML solution for nebulization 3 ml INH Q4HP PRN (Reason: Wheezing) Qty: 360 RF: 0 Referrals: [facility] [Outside] Gabe Meraz PA-C [Primary Care Provider] -
--- NOTE | 2018-10-09 18:35 | ED_ITS ---
HPI - Wound/Laceration General Chief Complaint: Wound/Laceration Stated Complaint: Sores on legs Time Seen by Provider: 10/09/18 18:07 Source: patient Mode of arrival: ambulatory History of Present Illness HPI narrative: Patient is a 37-year-old male presenting with on wound pain. He is morbidly obese with chronic pressure ulcers. He was admitted twice recently the last time he was discharged on 10/04/2018. The patient had missed wound consultation appointments. Infectious Disease was consulted during that admission. Patient is tachycardic but is crying and upset. He has low-grade fever. He has again missed his wound consultation appointment. He is not currently on antibiotics and complaining of pain. He says that of a smell however patient has extremely poor hygiene at baseline. Related Data Home Medications Medication Instructions Recorded Confirmed methadone 95 mg PO QDAY #0 05/07/17 10/07/18 prednisone 10 mg PO BID 08/05/18 10/07/18 Previous Rx's Medication Instructions Recorded fluticasone-salmeterol [Advair 1 puff INH BID #2 inh 04/28/17 Diskus] albuterol sulfate 2 puff INHALATION Q4-6H PRN #18 07/11/18 gram albuterol sulfate 3 ml INH Q4HP PRN #360 ml 07/27/18 lorazepam [Ativan] 1 mg PO BID-TID PRN #10 tab 08/26/18 olanzapine 20 mg PO DAILY #10 tab 08/26/18 duloxetine [Cymbalta] 30 mg PO DAILY #90 cap 09/15/18 gabapentin [Neurontin] 300 mg PO TID #180 cap 09/15/18 hydrocodone-acetaminophen [[employer]rian] 1 tab PO Q4-6H PRN #20 tab 09/15/18 Allergies Allergy/AdvReac Type Severity Reaction Status Date / Time NSAIDS (Non-Steroidal Allergy Unknown ASTHMA Verified 10/02/18 12:29 Anti-Inflamma FLARE [employer] [NSAIDS (NON-STEROIDAL ANTI-INFLAMMA] ibuprofen AdvReac Mild nausea, GI Verified 10/02/18 12:29 upset Review of Systems Review of Systems ROS Unobtainable: All systems reviewed & are unremarkable except as noted in HPI and below Constitutional Denies chills, Denies fever(s), Denies lethargy and Denies weakness Cardiovascular Denies chest pain, Denies irregular heart rhythm, Denies lightheadedness, Denies palpitations, Denies dyspnea, Denies dyspnea on exertion and Denies orthopnea Respiratory Denies cough, Denies dyspnea, Denies dyspnea on exertion and Denies wheezing Gastrointestinal Gastrointestinal: Denies abdominal pain, Denies change in bowel habits, Denies diarrhea, Denies nausea and Denies vomiting Integumentary/Breasts Reports as per HPI Neurologic Denies weakness Endocrine Denies palpitations Allergic/Immunologic Denies wheezing [facility] Social History household members: significant other Smoking Status: Former smoker Exam Initial Vital Signs Initial Vital Signs: Vital Signs Temperature 99.1 F 10/09/18 17:40 Pulse Rate 116 H 10/09/18 17:40 Respiratory Rate 18 10/09/18 17:40 Pulse Oximetry 95 10/09/18 17:40 Const General: in distress (Crying in pain) Nutritional Appearance: obese morbidly obese Orientation: alert, awake and oriented x3 Neck Neck: normal visual inspection and full ROM Chest Chest: normal inspection of the chest Resp Effort & Inspection: normal respiratory effort Auscultation: clear to auscultation bilaterally, no rales, no rhonchi and no wheezes Cardio Rate: regular rate Rhythm: regular rhythm Heart Sounds: S1 normal and S2 normal Skin General: No erythema Wounds: wounds noted Other: Wounds have no foul smell no surrounding erythema no gross drainage Right posterior thigh: 9 x 6 cm no surrounding erythema no drainage Left posterior thigh 9 x 5 cm no surrounding erythema no drainage Scrotal area: Also no surrounding erythema or drainage, 3 different areas the largest measuring 2.5 x 5 cm Neuro General: alert, awake and oriented x3 Course Orders Ordered: ED Orders 10/09/18 18:44 Basic Metabolic Panel Stat Complete Blood Count AUTO DIFF Stat Lactate (Lactic Acid) Stat Procalcitonin Stat 10/09/18 18:45 Blood Culture Stat Discontinued Medications Hydromorphone HCl (Dilaudid) 1 mg IV NOW ONE Stop: 10/09/18 18:29 Last Admin: 10/09/18 18:52 Dose: 1 mg Hydromorphone HCl (Dilaudid) 0.5 mg IV NOW ONE Stop: 10/09/18 19:39 Last Admin: 10/09/18 19:48 Dose: 0.5 mg Vital Signs - 8 hr 10/09/18 17:40 10/09/18 19:42 Temperature 99.1 F 99.5 F Pulse Rate 116 H 106 H Respiratory Rate 18 30 H Blood Pressure [Left Arm] 108/55 L Pulse Oximetry 95 92 MDM - Wound/Laceration Lab Data Attestation: I reviewed the patient's lab results. Result diagrams: 10/09/18 18:44 10/09/18 18:44 Lab Results 10/09/18 10/09/18 10/09/18 Range/Units 18:44 18:44 18:44 WBC 6.6 (4.5-11.0) X10^3/uL RBC 4.39 L (4.5-5.9) X10^6/uL Hgb 11.1 L (13.5-17.5) g/dL Hct 35.8 L (41-53) % MCV 81.6 (80-100) fL MCH 25.4 L (26-34) PG MCHC 31.1 (30-36) % RDW 16.4 H (11.6-14.8) % Plt Count 225 (150-400) X10^3/uL Neut % (Auto) 66.8 (50-75) % Lymph % (Auto) 23.3 L (25-40) % [place] % (Auto) 9.2 (3-14) % Eos % (Auto) 0.3 L (2-4) % Baso % (Auto) 0.4 (0-2) % Neut # (Auto) 4400 (5816-6424) /uL Lymph # (Auto) 1500 (7650-3781) /uL [place] # (Auto) 600 (0-900) /uL Eos # (Auto) 0 (0-450) /uL Baso # (Auto) 0 (0-100) /uL Sodium 140 (137-145) mmol/L Potassium 3.9 (3.4-5.1) mmol/L Chloride 103 (98-107) mmol/L Carbon Dioxide 31 (22-32) mmol/L BUN 7 L (9-20) mg/dL Creatinine 0.60 L (0.66-1.25) mg/dL Estimated GFR > 60.0 (>60) mL/min BUN/Creatinine Ratio 11.7 (6-22) Glucose 122 H (70-100) mg/dL Lactate (0.7-2.1) mmol/L Calcium 8.4 (8.4-10.2) mg/dL Procalcitonin < 0.05 (<0.5) ng/mL 10/09/18 Range/Units 18:44 WBC (4.5-11.0) X10^3/uL RBC (4.5-5.9) X10^6/uL Hgb (13.5-17.5) g/dL Hct (41-53) % MCV (80-100) fL MCH (26-34) PG MCHC (30-36) % RDW (11.6-14.8) % Plt Count (150-400) X10^3/uL Neut % (Auto) (50-75) % Lymph % (Auto) (25-40) % [place] % (Auto) (3-14) % Eos % (Auto) (2-4) % Baso % (Auto) (0-2) % Neut # (Auto) (7027-4466) /uL Lymph # (Auto) (4472-4467) /uL [place] # (Auto) (0-900) /uL Eos # (Auto) (0-450) /uL Baso # (Auto) (0-100) /uL Sodium (137-145) mmol/L Potassium (3.4-5.1) mmol/L Chloride (98-107) mmol/L Carbon Dioxide (22-32) mmol/L BUN (9-20) mg/dL Creatinine (0.66-1.25) mg/dL Estimated GFR (>60) mL/min BUN/Creatinine Ratio (6-22) Glucose (70-100) mg/dL Lactate 1.6 (0.7-2.1) mmol/L Calcium (8.4-10.2) mg/dL Procalcitonin (<0.5) ng/mL [facility] Narrative Medical decision making narrative: patient initially had low-grade fever and tachycardic however he was quite upset. There is no obvious source of infection around the wounds. There is no drainage no foul smell from the wounds no surrounding erythema. No leukocytosis normal procalcitonin and lactic acid. At this time I do not believe these to be acutely infected, he does not appear septic. Patient's pain is much improved after Dilaudid. He does take methadone daily for chronic ongoing pain, and has appointment tomorrow. Discharge Plan Departure Patient Disposition: Home Clinical Impression: Pressure ulcer, stage 2 Discharge Date/Time: 10/09/18 20:03 Interventions: ED Discharge Assessment Last Done: 10/09/18 20:03 Instructions: How to Prevent Pressure Ulcers, DI for Pressure Sores Activity Restrictions/Additional Instructions: *You have been diagnosed with Pressure ulcers *What to do: keep dressings on for up to 1 week. You may shower and bathe with them. *Continue to take medications as directed *Follow up with your primary care provider in 2-3 days, you Need to follow up with wound care *Return to ER if you should have fever more than 100.4, redness around the skin , any new, worsening or concerning symptoms Prescriptions: No Action fluticasone-salmeterol [Advair Diskus] 500 MCG/50 MCG blister with device 1 puff INH BID Qty: 2 RF: 5 methadone 10 MG tablet 95 mg PO QDAY Qty: 0 RF: 0 prednisone 10 mg tablet 10 mg PO BID RF: 0 lorazepam [Ativan] 1 mg tablet 1 mg PO BID-TID PRN (Reason: anxiety) Qty: 10 RF: 0 olanzapine 20 mg tablet 20 mg PO DAILY Qty: 10 RF: 0 gabapentin [Neurontin] 300 mg Capsule 300 mg PO TID Qty: 180 RF: 0 duloxetine [Cymbalta] 30 mg Capsule,Delayed Release(Dr/Ec) 30 mg PO DAILY Qty: 90 RF: 0 hydrocodone-acetaminophen [Adrian] 7.5-325 mg tablet 1 tab PO Q4-6H PRN (Reason: pain) Qty: 20 RF: 0 albuterol sulfate 90 mcg/actuation HFA aerosol inhaler 2 puff INHALATION Q4-6H PRN (Reason: shortness of breath or wheezing) Qty: 18 RF: 0 albuterol sulfate 2.5 MG/3 ML solution for nebulization 3 ml INH Q4HP PRN (Reason: Wheezing) Qty: 360 RF: 0 Referrals: [facility] [Outside] Gabe Meraz PA-C [Primary Care Provider] -
[2018-10-09] MEDS: HYDROMORPHONE 1 MG INJ IV (18:52)
[2018-10-09 18:53] LABS: Add Manual Diff / Slide Review NO; Basophils Absolute Auto 0 /uL (0-100); Basophils Percent Auto 0.4 % (0-2); Eosinophils Absolute Auto 0 /uL (0-450); Eosinophils Percent Auto 0.3 % (2-4); Hematocrit 35.8 % (41-53); Hemoglobin 11.1 g/dL (13.5-17.5); Lymphocytes Absolute Auto 1500 /uL (1100-4500); Lymphocytes Percent Auto 23.3 % (25-40); Mean Corpuscular HGB Conc 31.1 % (30-36); Mean Corpuscular Hemoglobin 25.4 PG (26-34); Mean Corpuscular Volume 81.6 fL (80-100); Monocytes Absolute Auto 600 /uL (0-900); Monocytes Percent Auto 9.2 % (3-14); Neutrophils Absolute Auto 4400 /uL (1500-7000); Neutrophils Percent Auto 66.8 % (50-75); Platelet Count 225 X10^3/uL (150-400); Red Blood Cell Count 4.39 X10^6/uL (4.5-5.9); Red Cell Distribution Width 16.4 % (11.6-14.8); White Blood Cell Count 6.6 X10^3/uL (4.5-11.0)
[2018-10-09 19:03] LABS: Lactate (Lactic Acid) 1.6 mmol/L (0.7-2.1)
[2018-10-09 19:04] LABS: BUN Creatinine Ratio 11.7 (6-22); Blood Urea Nitrogen 7 mg/dL (9-20); Calcium 8.4 mg/dL (8.4-10.2); Carbon Dioxide 31 mmol/L (22-32); Chloride 103 mmol/L (98-107); Estimated Glomerular Filt Rate > 60.0 mL/min (>60); Glucose 122 mg/dL (70-100); HEMOLYSIS < 15 (0-50); Potassium 3.9 mmol/L (3.4-5.1); Sodium 140 mmol/L (137-145)
[2018-10-09 19:25] LABS: Procalcitonin < 0.05 ng/mL (<0.5)
[2018-10-09 19:42] VITALS: BP 108/55; PULSE 106; RESP 30; TEMP 37.5; O2SAT 92
[2018-10-09] MEDS: HYDROMORPHONE 1 MG INJ 0.5 MG IV (19:48)
== END 2018-10-09 20:03 | disposition home or self-care (01) ==
PROVIDERS: Emergency Provider Emergency Medicine; PCP Physician Assistant
DX: L89.892 Pressure ulcer of other site, stage 2 (principal); L89.899 Pressure ulcer of other site, unspecified stage; E66.01 Morbid (severe) obesity due to excess calories
CPT/HCPCS: 36591; 80048; 83605; 84145; 85025; 87040; 96374; 96376; 99283; 99284; J1170

== ENCOUNTER 2018-10-23 12:31 | Emergency (ER) | payer OTHER, MEDICAID, SELFPAY ==
[2018-10-02 16:47] VITALS: BMI 85.4
[2018-10-23 12:42] VITALS: BP 126/62; PULSE 107; RESP 18; TEMP 36.7; O2SAT 94
--- NOTE | 2018-10-23 12:53 | ED.WOUNDLAC ---
HPI - Wound/Laceration <LIZBETH Malone - Last Filed: 10/23/18 21:33> General Chief Complaint: Wound/Laceration Stated Complaint: Sores on legs and buttock Time Seen by Provider: 10/23/18 12:46 Source: patient Mode of arrival: EMS Limitations: no limitations History of Present Illness HPI narrative: 37-year-old male with history of morbid obesity asthma and chronic pressure ulcers to his legs and perineal area here for complaint of pain into his left rear leg over the past several days. He denies any trauma to the area. Reports increased pain with pressure to the area. He has been admitted for pressure ulcers a few times over the past several weeks. He is referred to wound care however he has been noncompliant has not followed up with wound care. He is currently not taking any antibiotics. He denies any fevers. He also reports having wheezing due to asthma. Related Data Home Medications Medication Instructions Recorded Confirmed methadone 95 mg PO QDAY #0 05/07/17 10/07/18 prednisone 10 mg PO BID 08/05/18 10/07/18 Previous Rx's Medication Instructions Recorded fluticasone-salmeterol [Advair 1 puff INH BID #2 inh 04/28/17 Diskus] albuterol sulfate 2 puff INHALATION Q4-6H PRN #18 07/11/18 gram albuterol sulfate 3 ml INH Q4HP PRN #360 ml 07/27/18 lorazepam [Ativan] 1 mg PO BID-TID PRN #10 tab 08/26/18 olanzapine 20 mg PO DAILY #10 tab 08/26/18 duloxetine [Cymbalta] 30 mg PO DAILY #90 cap 09/15/18 gabapentin [Neurontin] 300 mg PO TID #180 cap 09/15/18 hydrocodone-acetaminophen [Okeene] 1 tab PO Q4-6H PRN #20 tab 09/15/18 Allergies Allergy/AdvReac Type Severity Reaction Status Date / Time NSAIDS (Non-Steroidal Allergy Unknown ASTHMA Verified 10/02/18 12:29 Anti-Inflamma FLARE UPS [NSAIDS (NON-STEROIDAL ANTI-INFLAMMA] ibuprofen AdvReac Mild nausea, GI Verified 10/02/18 12:29 upset Review of Systems <LIZBETH Malone - Last Filed: 10/23/18 21:33> Constitutional Denies chills, Denies fever(s), Denies lethargy and Denies weakness Eyes Denies change in vision, Denies eye discharge, Denies irritation and Denies loss of vision ENT Ears, Nose, Mouth, and Throat: Denies change in voice, Denies neck pain and Denies sore throat Cardiovascular Denies chest pain, Denies irregular heart rhythm, Denies lightheadedness, Denies palpitations, Denies dyspnea, Denies dyspnea on exertion and Denies orthopnea Respiratory Denies cough, Denies dyspnea, Denies dyspnea on exertion and Reports wheezing Gastrointestinal Gastrointestinal: Denies abdominal pain, Denies change in bowel habits, Denies diarrhea, Denies nausea and Denies vomiting Genitourinary Denies hematuria, Denies flank pain, Denies urinary incontinence and Denies urinary urgency Musculoskeletal Denies neck pain Comments: Left leg pain Integumentary/Breasts Denies pruritus, Denies erythema, Denies rash and Denies wounds Neurologic Denies confusion, Denies loss of vision and Denies weakness Psychiatric Denies anxiety, Denies confusion, Denies depression, Denies homicidal ideation and Denies suicidal ideation Endocrine Denies palpitations Hematologic/Lymphatic Denies easy bruising Allergic/Immunologic Reports wheezing Exam <LIZBETH Malone - Last Filed: 10/23/18 21:33> Initial Vital Signs Initial Vital Signs: Vital Signs Temperature 98.1 F 10/23/18 12:42 Pulse Rate 107 H 10/23/18 12:42 Respiratory Rate 18 10/23/18 12:42 Blood Pressure 126/62 10/23/18 12:42 Pulse Oximetry 94 10/23/18 12:42 Const General: cooperative and well developed Nutritional Appearance: well nourished Orientation: alert, awake, oriented x3 and not confused [facility] Mouth: oral mucosae normal and moist mucous membranes Eyes Conjunctivae: conjunctivae normal Sclera: sclerae normal Pupils: PERRL EOM: EOM intact bilaterally Resp Effort & Inspection: normal respiratory effort, able to speak in complete sentences, no respiratory distress and no use of accessory muscles Auscultation: clear to auscultation bilaterally, no rales, no rhonchi and wheezes inspiratory wheezes Cardio Rate: regular rate Rhythm: regular rhythm Heart Sounds: no click, no gallops, no murmurs and no rubs Pulses: normal peripheral pulses Skin Other: Multiple stage II pressure ulcers to the posterior thighs buttocks and perineal area no signs of infection at this current timeframe. No abscess is appreciated. Neuro General: alert, oriented x3, gait normal and no focal motor deficits Speech: speech normal <Rene Soria DO - Last Filed: 10/24/18 08:30> Initial Vital Signs Initial Vital Signs: Vital Signs Temperature 98.1 F 10/23/18 12:42 Pulse Rate 107 H 10/23/18 12:42 Respiratory Rate 18 10/23/18 12:42 Blood Pressure 126/62 10/23/18 12:42 Pulse Oximetry 94 10/23/18 12:42 Course <LIZBETH Malone - Last Filed: 10/23/18 21:33> Orders Ordered: Discontinued Medications Albuterol/Ipratropium (Duoneb) 3 ml INH NOW ONE Stop: 10/23/18 15:58 Last Admin: 10/23/18 16:09 Dose: 3 ml Hydromorphone HCl (Dilaudid) 1 mg IV NOW ONE Stop: 10/23/18 14:01 Last Admin: 10/23/18 15:36 Dose: 1 mg Sodium Chloride (Normal Saline 0.9%) 1,000 mls @ 1,000 mls/hr IV BOLUS ONE Stop: 10/23/18 14:59 Last Infusion: 10/23/18 17:30 Dose: 1,000 mls/hr Admin: 10/23/18 15:37 Dose: 1,000 mls/hr Vital Signs - 8 hr 10/23/18 14:19 10/23/18 15:59 10/23/18 16:05 Temperature Pulse Rate 111 H 106 H Respiratory Rate 22 16 Blood Pressure [Left Arm] 142/96 H 88/65 L Pulse Oximetry 91 88 L 100 10/23/18 16:09 10/23/18 17:22 Temperature 98.4 F Pulse Rate 101 H 110 H Respiratory Rate 17 18 Blood Pressure [Left Arm] 131/74 Pulse Oximetry 97 93 <Rene Soria DO - Last Filed: 10/24/18 08:30> Orders Ordered: Discontinued Medications Albuterol/Ipratropium (Duoneb) 3 ml INH NOW ONE Stop: 10/23/18 15:58 Last Admin: 10/23/18 16:09 Dose: 3 ml Hydromorphone HCl (Dilaudid) 1 mg IV NOW ONE Stop: 10/23/18 14:01 Last Admin: 10/23/18 15:36 Dose: 1 mg Sodium Chloride (Normal Saline 0.9%) 1,000 mls @ 1,000 mls/hr IV BOLUS ONE Stop: 10/23/18 14:59 Last Infusion: 10/23/18 17:30 Dose: 1,000 mls/hr Admin: 10/23/18 15:37 Dose: 1,000 mls/hr Vital Signs - 8 hr 10/23/18 14:19 10/23/18 15:59 10/23/18 16:05 Temperature Pulse Rate 111 H 106 H Respiratory Rate 22 16 Blood Pressure [Left Arm] 142/96 H 88/65 L Pulse Oximetry 91 88 L 100 10/23/18 16:09 10/23/18 17:22 Temperature 98.4 F Pulse Rate 101 H 110 H Respiratory Rate 17 18 Blood Pressure [Left Arm] 131/74 Pulse Oximetry 97 93 MDM - Wound/Laceration <LIZBETH Malone - Last Filed: 10/23/18 21:33> Lab Data Result diagrams: 10/23/18 15:10 10/23/18 15:10 Lab Results 10/23/18 10/23/18 10/23/18 Range/Units 15:10 15:10 15:10 WBC 9.6 (4.5-11.0) X10^3/uL RBC 4.28 L (4.5-5.9) X10^6/uL Hgb 10.7 L (13.5-17.5) g/dL Hct 34.1 L (41-53) % MCV 79.7 L (80-100) fL MCH 25.0 L (26-34) PG MCHC 31.4 (30-36) % RDW 15.8 H (11.6-14.8) % Plt Count 321 (150-400) X10^3/uL Neut % (Auto) 79.3 H (50-75) % Lymph % (Auto) 11.5 L (25-40) % [place] % (Auto) 8.8 (3-14) % Eos % (Auto) 0.1 L (2-4) % Baso % (Auto) 0.3 (0-2) % Neut # (Auto) 7600 H (6994-8129) /uL Lymph # (Auto) 1100 (9071-5815) /uL [place] # (Auto) 800 (0-900) /uL Eos # (Auto) 0 (0-450) /uL Baso # (Auto) 0 (0-100) /uL Sodium 137 (137-145) mmol/L Potassium 3.8 (3.4-5.1) mmol/L Chloride 98 (98-107) mmol/L Carbon Dioxide 32 (22-32) mmol/L BUN 6 L (9-20) mg/dL Creatinine 0.50 L (0.66-1.25) mg/dL Estimated GFR > 60.0 (>60) mL/min BUN/Creatinine Ratio 12.0 (6-22) Glucose 101 H (70-100) mg/dL Lactate (0.7-2.1) mmol/L Calcium 8.1 L (8.4-10.2) mg/dL Total Bilirubin 0.7 (0.2-1.3) mg/dL AST 12 L (17-59) IU/L ALT 16 L (21-72) IU/L Alkaline Phosphatase 79 (38-126) U/L Total Protein 7.2 (6.3-8.2) g/dL Albumin 3.4 L (3.5-5.0) g/dL Globulin 3.8 (1.7-4.1) g/dL Albumin/Globulin Ratio 0.9 L (1.0-2.8) Procalcitonin < 0.05 (<0.5) ng/mL 10/23/18 Range/Units 15:10 WBC (4.5-11.0) X10^3/uL RBC (4.5-5.9) X10^6/uL Hgb (13.5-17.5) g/dL Hct (41-53) % MCV (80-100) fL MCH (26-34) PG MCHC (30-36) % RDW (11.6-14.8) % Plt Count (150-400) X10^3/uL Neut % (Auto) (50-75) % Lymph % (Auto) (25-40) % [place] % (Auto) (3-14) % Eos % (Auto) (2-4) % Baso % (Auto) (0-2) % Neut # (Auto) (2062-1362) /uL Lymph # (Auto) (3253-6784) /uL [place] # (Auto) (0-900) /uL Eos # (Auto) (0-450) /uL Baso # (Auto) (0-100) /uL Sodium (137-145) mmol/L Potassium (3.4-5.1) mmol/L Chloride (98-107) mmol/L Carbon Dioxide (22-32) mmol/L BUN (9-20) mg/dL Creatinine (0.66-1.25) mg/dL Estimated GFR (>60) mL/min BUN/Creatinine Ratio (6-22) Glucose (70-100) mg/dL Lactate 0.8 (0.7-2.1) mmol/L Calcium (8.4-10.2) mg/dL Total Bilirubin (0.2-1.3) mg/dL AST (17-59) IU/L ALT (21-72) IU/L Alkaline Phosphatase (38-126) U/L Total Protein (6.3-8.2) g/dL Albumin (3.5-5.0) g/dL Globulin (1.7-4.1) g/dL Albumin/Globulin Ratio (1.0-2.8) Procalcitonin (<0.5) ng/mL MDM Narrative Medical decision making narrative: CBC was obtained and was Consistent with his prior lab values. No acute findings. Chemistry panel was obtained was unremarkable. Lactate was normal. Procalcitonin was normal. Do not appreciate signs of infection at this time. He was given a DuoNeb treatment to help with his asthma which helped his symptoms. He is referred to wound care for his chronic pressure ulcers. Follow up with primary care provider the next few days for re-evaluation. Patient to call wound care tomorrow and schedule follow-up appointment here in the next couple of days. Use currently prescribed pain management regimen as needed for discomfort <Rene Soria DO - Last Filed: 10/24/18 08:30> Lab Data Lab Results 10/23/18 10/23/18 10/23/18 Range/Units 15:10 15:10 15:10 WBC 9.6 (4.5-11.0) X10^3/uL RBC 4.28 L (4.5-5.9) X10^6/uL Hgb 10.7 L (13.5-17.5) g/dL Hct 34.1 L (41-53) % MCV 79.7 L (80-100) fL MCH 25.0 L (26-34) PG MCHC 31.4 (30-36) % RDW 15.8 H (11.6-14.8) % Plt Count 321 (150-400) X10^3/uL Neut % (Auto) 79.3 H (50-75) % Lymph % (Auto) 11.5 L (25-40) % [place] % (Auto) 8.8 (3-14) % Eos % (Auto) 0.1 L (2-4) % Baso % (Auto) 0.3 (0-2) % Neut # (Auto) 7600 H (5401-2278) /uL Lymph # (Auto) 1100 (5974-1358) /uL [place] # (Auto) 800 (0-900) /uL Eos # (Auto) 0 (0-450) /uL Baso # (Auto) 0 (0-100) /uL Sodium 137 (137-145) mmol/L Potassium 3.8 (3.4-5.1) mmol/L Chloride 98 (98-107) mmol/L Carbon Dioxide 32 (22-32) mmol/L BUN 6 L (9-20) mg/dL Creatinine 0.50 L (0.66-1.25) mg/dL Estimated GFR > 60.0 (>60) mL/min BUN/Creatinine Ratio 12.0 (6-22) Glucose 101 H (70-100) mg/dL Lactate (0.7-2.1) mmol/L Calcium 8.1 L (8.4-10.2) mg/dL Total Bilirubin 0.7 (0.2-1.3) mg/dL AST 12 L (17-59) IU/L ALT 16 L (21-72) IU/L Alkaline Phosphatase 79 (38-126) U/L Total Protein 7.2 (6.3-8.2) g/dL Albumin 3.4 L (3.5-5.0) g/dL Globulin 3.8 (1.7-4.1) g/dL Albumin/Globulin Ratio 0.9 L (1.0-2.8) Procalcitonin < 0.05 (<0.5) ng/mL 10/23/18 Range/Units 15:10 WBC (4.5-11.0) X10^3/uL RBC (4.5-5.9) X10^6/uL Hgb (13.5-17.5) g/dL Hct (41-53) % MCV (80-100) fL MCH (26-34) PG MCHC (30-36) % RDW (11.6-14.8) % Plt Count (150-400) X10^3/uL Neut % (Auto) (50-75) % Lymph % (Auto) (25-40) % [place] % (Auto) (3-14) % Eos % (Auto) (2-4) % Baso % (Auto) (0-2) % Neut # (Auto) (8912-4954) /uL Lymph # (Auto) (3809-4915) /uL [place] # (Auto) (0-900) /uL Eos # (Auto) (0-450) /uL Baso # (Auto) (0-100) /uL Sodium (137-145) mmol/L Potassium (3.4-5.1) mmol/L Chloride (98-107) mmol/L Carbon Dioxide (22-32) mmol/L BUN (9-20) mg/dL Creatinine (0.66-1.25) mg/dL Estimated GFR (>60) mL/min BUN/Creatinine Ratio (6-22) Glucose (70-100) mg/dL Lactate 0.8 (0.7-2.1) mmol/L Calcium (8.4-10.2) mg/dL Total Bilirubin (0.2-1.3) mg/dL AST (17-59) IU/L ALT (21-72) IU/L Alkaline Phosphatase (38-126) U/L Total Protein (6.3-8.2) g/dL Albumin (3.5-5.0) g/dL Globulin (1.7-4.1) g/dL Albumin/Globulin Ratio (1.0-2.8) Procalcitonin (<0.5) ng/mL Discharge Plan Departure Patient Disposition: Home Clinical Impression: Decubitus ulcer of buttock, stage 2 Discharge Date/Time: 10/23/18 18:30 Interventions: ED Discharge Assessment Last Done: 10/23/18 18:30 Instructions: DI for Pressure Sores Activity Restrictions/Additional Instructions: Sinus symptoms presents as chronic pressure ulcers to the buttocks and perineal area. Follow-up with wound care tomorrow call the number and schedule follow-up appointment. Follow up with primary care provider. Use currently prescribed pain management regimen as needed for any discomfort. Keep area clean and dry. Return emergency room for any worsening symptoms. Prescriptions: No Action fluticasone-salmeterol [Advair Diskus] 500 MCG/50 MCG blister with device 1 puff INH BID Qty: 2 RF: 5 methadone 10 MG tablet 95 mg PO QDAY Qty: 0 RF: 0 prednisone 10 mg tablet 10 mg PO BID RF: 0 lorazepam [Ativan] 1 mg tablet 1 mg PO BID-TID PRN (Reason: anxiety) Qty: 10 RF: 0 olanzapine 20 mg tablet 20 mg PO DAILY Qty: 10 RF: 0 gabapentin [Neurontin] 300 mg Capsule 300 mg PO TID Qty: 180 RF: 0 duloxetine [Cymbalta] 30 mg Capsule,Delayed Release(Dr/Ec) 30 mg PO DAILY Qty: 90 RF: 0 hydrocodone-acetaminophen [[place]ke[place]] 7.5-325 mg tablet 1 tab PO Q4-6H PRN (Reason: pain) Qty: 20 RF: 0 albuterol sulfate 90 mcg/actuation HFA aerosol inhaler 2 puff INHALATION Q4-6H PRN (Reason: shortness of breath or wheezing) Qty: 18 RF: 0 albuterol sulfate 2.5 MG/3 ML solution for nebulization 3 ml INH Q4HP PRN (Reason: Wheezing) Qty: 360 RF: 0 Referrals: Gabe Meraz PA-C [Primary Care Provider] - <Rene Soria DO - Last Filed: 10/24/18 08:30> Cosign ED Attending Edi Attestation: I was available for consultation during this patient's emergency department encounter
[2018-10-23 14:19] VITALS: BP 142/96; PULSE 111; RESP 22; O2SAT 91
[2018-10-23 15:26] LABS: Add Manual Diff / Slide Review NO; Basophils Absolute Auto 0 /uL (0-100); Basophils Percent Auto 0.3 % (0-2); Eosinophils Absolute Auto 0 /uL (0-450); Eosinophils Percent Auto 0.1 % (2-4); Hematocrit 34.1 % (41-53); Hemoglobin 10.7 g/dL (13.5-17.5); Lymphocytes Absolute Auto 1100 /uL (1100-4500); Lymphocytes Percent Auto 11.5 % (25-40); Mean Corpuscular HGB Conc 31.4 % (30-36); Mean Corpuscular Volume 79.7 fL (80-100); Monocytes Absolute Auto 800 /uL (0-900); Monocytes Percent Auto 8.8 % (3-14); Neutrophils Absolute Auto 7600 /uL (1500-7000); Neutrophils Percent Auto 79.3 % (50-75); Platelet Count 321 X10^3/uL (150-400); Red Blood Cell Count 4.28 X10^6/uL (4.5-5.9); Red Cell Distribution Width 15.8 % (11.6-14.8); White Blood Cell Count 9.6 X10^3/uL (4.5-11.0)
[2018-10-23 15:35] LABS: Lactate (Lactic Acid) 0.8 mmol/L (0.7-2.1)
[2018-10-23 15:36] LABS: Alanine Aminotransferase 16 IU/L (21-72); Albumin 3.4 g/dL (3.5-5.0); Albumin Globulin Ratio 0.9 (1.0-2.8); Alkaline Phosphatase 79 U/L (38-126); Aspartate Aminotransferase 12 IU/L (17-59); Bilirubin Total 0.7 mg/dL (0.2-1.3); Blood Urea Nitrogen 6 mg/dL (9-20); Calcium 8.1 mg/dL (8.4-10.2); Carbon Dioxide 32 mmol/L (22-32); Chloride 98 mmol/L (98-107); Estimated Glomerular Filt Rate > 60.0 mL/min (>60); Globulin 3.8 g/dL (1.7-4.1); Glucose 101 mg/dL (70-100); HEMOLYSIS < 15 (0-50); Potassium 3.8 mmol/L (3.4-5.1); Sodium 137 mmol/L (137-145); Total Protein 7.2 g/dL (6.3-8.2)
[2018-10-23] MEDS: HYDROMORPHONE 1 MG INJ IV (15:36)
[2018-10-23] MEDS: SODIUM CHLORIDE 0.9% 1,000 ML 1000 ML IV (15:37)
[2018-10-23 15:57] LABS: Procalcitonin < 0.05 ng/mL (<0.5)
[2018-10-23 15:59] VITALS: BP 88/65; O2SAT 88
--- NOTE | 2018-10-23 16:01 | PC.NURSE ---
patient put into bed with hob slightly elevated. Increased sob with exertion. Has Wheezes throughout. Asking for a nebulizer treatement. 02 sat decreased to 88% 02 2l/nc applied and 02sat increased to 100 % right away. hypotensive and then IV fluids infusing and B/p coming to 103/36
[2018-10-23 16:05] VITALS: PULSE 106; RESP 16; O2SAT 100
[2018-10-23 16:09] VITALS: PULSE 101; RESP 17; O2SAT 97
[2018-10-23] MEDS: ALBUTEROL/IPRATROPIUM 3 ML AMPUL INH (16:09)
[2018-10-23 17:22] VITALS: BP 131/74; PULSE 110; RESP 18; TEMP 36.9; O2SAT 93
--- NOTE | 2018-10-23 17:29 | ED_ITS ---
HPI - Wound/Laceration <LIZBETH Malone - Last Filed: 10/23/18 21:33> General Chief Complaint: Wound/Laceration Stated Complaint: Sores on legs and buttock Time Seen by Provider: 10/23/18 12:46 Source: patient Mode of arrival: EMS Limitations: no limitations History of Present Illness HPI narrative: 37-year-old male with history of morbid obesity asthma and chronic pressure ulcers to his legs and perineal area here for complaint of pain into his left rear leg over the past several days. He denies any trauma to the area. Reports increased pain with pressure to the area. He has been admitted for pressure ulcers a few times over the past several weeks. He is referred to wound care however he has been noncompliant has not followed up with wound care. He is currently not taking any antibiotics. He denies any fevers. He also reports having wheezing due to asthma. Related Data Home Medications Medication Instructions Recorded Confirmed methadone 95 mg PO QDAY #0 05/07/17 10/07/18 prednisone 10 mg PO BID 08/05/18 10/07/18 Previous Rx's Medication Instructions Recorded fluticasone-salmeterol [Advair 1 puff INH BID #2 inh 04/28/17 Diskus] albuterol sulfate 2 puff INHALATION Q4-6H PRN #18 07/11/18 gram albuterol sulfate 3 ml INH Q4HP PRN #360 ml 07/27/18 lorazepam [Ativan] 1 mg PO BID-TID PRN #10 tab 08/26/18 olanzapine 20 mg PO DAILY #10 tab 08/26/18 duloxetine [Cymbalta] 30 mg PO DAILY #90 cap 09/15/18 gabapentin [Neurontin] 300 mg PO TID #180 cap 09/15/18 hydrocodone-acetaminophen [Underwood] 1 tab PO Q4-6H PRN #20 tab 09/15/18 Allergies Allergy/AdvReac Type Severity Reaction Status Date / Time NSAIDS (Non-Steroidal Allergy Unknown ASTHMA Verified 10/02/18 12:29 Anti-Inflamma FLARE UPS [NSAIDS (NON-STEROIDAL ANTI-INFLAMMA] ibuprofen AdvReac Mild nausea, GI Verified 10/02/18 12:29 upset Review of Systems <LIZBETH Malone - Last Filed: 10/23/18 21:33> Constitutional Denies chills, Denies fever(s), Denies lethargy and Denies weakness Eyes Denies change in vision, Denies eye discharge, Denies irritation and Denies loss of vision ENT Ears, Nose, Mouth, and Throat: Denies change in voice, Denies neck pain and Denies sore throat Cardiovascular Denies chest pain, Denies irregular heart rhythm, Denies lightheadedness, Denies palpitations, Denies dyspnea, Denies dyspnea on exertion and Denies orthopnea Respiratory Denies cough, Denies dyspnea, Denies dyspnea on exertion and Reports wheezing Gastrointestinal Gastrointestinal: Denies abdominal pain, Denies change in bowel habits, Denies diarrhea, Denies nausea and Denies vomiting Genitourinary Denies hematuria, Denies flank pain, Denies urinary incontinence and Denies urinary urgency Musculoskeletal Denies neck pain Comments: Left leg pain Integumentary/Breasts Denies pruritus, Denies erythema, Denies rash and Denies wounds Neurologic Denies confusion, Denies loss of vision and Denies weakness Psychiatric Denies anxiety, Denies confusion, Denies depression, Denies homicidal ideation and Denies suicidal ideation Endocrine Denies palpitations Hematologic/Lymphatic Denies easy bruising Allergic/Immunologic Reports wheezing Exam <LIZBETH Malone - Last Filed: 10/23/18 21:33> Initial Vital Signs Initial Vital Signs: Vital Signs Temperature 98.1 F 10/23/18 12:42 Pulse Rate 107 H 10/23/18 12:42 Respiratory Rate 18 10/23/18 12:42 Blood Pressure 126/62 10/23/18 12:42 Pulse Oximetry 94 10/23/18 12:42 Const General: cooperative and well developed Nutritional Appearance: well nourished Orientation: alert, awake, oriented x3 and not confused [facility] Mouth: oral mucosae normal and moist mucous membranes Eyes Conjunctivae: conjunctivae normal Sclera: sclerae normal Pupils: PERRL EOM: EOM intact bilaterally Resp Effort & Inspection: normal respiratory effort, able to speak in complete sentences, no respiratory distress and no use of accessory muscles Auscultation: clear to auscultation bilaterally, no rales, no rhonchi and wheezes inspiratory wheezes Cardio Rate: regular rate Rhythm: regular rhythm Heart Sounds: no click, no gallops, no murmurs and no rubs Pulses: normal peripheral pulses Skin Other: Multiple stage II pressure ulcers to the posterior thighs buttocks and perineal area no signs of infection at this current timeframe. No abscess is appreciated. Neuro General: alert, oriented x3, gait normal and no focal motor deficits Speech: speech normal <Rene Soria DO - Last Filed: 10/24/18 08:30> Initial Vital Signs Initial Vital Signs: Vital Signs Temperature 98.1 F 10/23/18 12:42 Pulse Rate 107 H 10/23/18 12:42 Respiratory Rate 18 10/23/18 12:42 Blood Pressure 126/62 10/23/18 12:42 Pulse Oximetry 94 10/23/18 12:42 Course <LIZBETH Malone - Last Filed: 10/23/18 21:33> Orders Ordered: Discontinued Medications Albuterol/Ipratropium (Duoneb) 3 ml INH NOW ONE Stop: 10/23/18 15:58 Last Admin: 10/23/18 16:09 Dose: 3 ml Hydromorphone HCl (Dilaudid) 1 mg IV NOW ONE Stop: 10/23/18 14:01 Last Admin: 10/23/18 15:36 Dose: 1 mg Sodium Chloride (Normal Saline 0.9%) 1,000 mls @ 1,000 mls/hr IV BOLUS ONE Stop: 10/23/18 14:59 Last Infusion: 10/23/18 17:30 Dose: 1,000 mls/hr Admin: 10/23/18 15:37 Dose: 1,000 mls/hr Vital Signs - 8 hr 10/23/18 14:19 10/23/18 15:59 10/23/18 16:05 Temperature Pulse Rate 111 H 106 H Respiratory Rate 22 16 Blood Pressure [Left Arm] 142/96 H 88/65 L Pulse Oximetry 91 88 L 100 10/23/18 16:09 10/23/18 17:22 Temperature 98.4 F Pulse Rate 101 H 110 H Respiratory Rate 17 18 Blood Pressure [Left Arm] 131/74 Pulse Oximetry 97 93 <Rene Soria DO - Last Filed: 10/24/18 08:30> Orders Ordered: Discontinued Medications Albuterol/Ipratropium (Duoneb) 3 ml INH NOW ONE Stop: 10/23/18 15:58 Last Admin: 10/23/18 16:09 Dose: 3 ml Hydromorphone HCl (Dilaudid) 1 mg IV NOW ONE Stop: 10/23/18 14:01 Last Admin: 10/23/18 15:36 Dose: 1 mg Sodium Chloride (Normal Saline 0.9%) 1,000 mls @ 1,000 mls/hr IV BOLUS ONE Stop: 10/23/18 14:59 Last Infusion: 10/23/18 17:30 Dose: 1,000 mls/hr Admin: 10/23/18 15:37 Dose: 1,000 mls/hr Vital Signs - 8 hr 10/23/18 14:19 10/23/18 15:59 10/23/18 16:05 Temperature Pulse Rate 111 H 106 H Respiratory Rate 22 16 Blood Pressure [Left Arm] 142/96 H 88/65 L Pulse Oximetry 91 88 L 100 10/23/18 16:09 10/23/18 17:22 Temperature 98.4 F Pulse Rate 101 H 110 H Respiratory Rate 17 18 Blood Pressure [Left Arm] 131/74 Pulse Oximetry 97 93 MDM - Wound/Laceration <LIZBETH Malone - Last Filed: 10/23/18 21:33> Lab Data Result diagrams: 10/23/18 15:10 10/23/18 15:10 Lab Results 10/23/18 10/23/18 10/23/18 Range/Units 15:10 15:10 15:10 WBC 9.6 (4.5-11.0) X10^3/uL RBC 4.28 L (4.5-5.9) X10^6/uL Hgb 10.7 L (13.5-17.5) g/dL Hct 34.1 L (41-53) % MCV 79.7 L (80-100) fL MCH 25.0 L (26-34) PG MCHC 31.4 (30-36) % RDW 15.8 H (11.6-14.8) % Plt Count 321 (150-400) X10^3/uL Neut % (Auto) 79.3 H (50-75) % Lymph % (Auto) 11.5 L (25-40) % Piute % (Auto) 8.8 (3-14) % Eos % (Auto) 0.1 L (2-4) % Baso % (Auto) 0.3 (0-2) % Neut # (Auto) 7600 H (7393-3328) /uL Lymph # (Auto) 1100 (1063-0905) /uL Piute # (Auto) 800 (0-900) /uL Eos # (Auto) 0 (0-450) /uL Baso # (Auto) 0 (0-100) /uL Sodium 137 (137-145) mmol/L Potassium 3.8 (3.4-5.1) mmol/L Chloride 98 (98-107) mmol/L Carbon Dioxide 32 (22-32) mmol/L BUN 6 L (9-20) mg/dL Creatinine 0.50 L (0.66-1.25) mg/dL Estimated GFR > 60.0 (>60) mL/min BUN/Creatinine Ratio 12.0 (6-22) Glucose 101 H (70-100) mg/dL Lactate (0.7-2.1) mmol/L Calcium 8.1 L (8.4-10.2) mg/dL Total Bilirubin 0.7 (0.2-1.3) mg/dL AST 12 L (17-59) IU/L ALT 16 L (21-72) IU/L Alkaline Phosphatase 79 (38-126) U/L Total Protein 7.2 (6.3-8.2) g/dL Albumin 3.4 L (3.5-5.0) g/dL Globulin 3.8 (1.7-4.1) g/dL Albumin/Globulin Ratio 0.9 L (1.0-2.8) Procalcitonin < 0.05 (<0.5) ng/mL 10/23/18 Range/Units 15:10 WBC (4.5-11.0) X10^3/uL RBC (4.5-5.9) X10^6/uL Hgb (13.5-17.5) g/dL Hct (41-53) % MCV (80-100) fL MCH (26-34) PG MCHC (30-36) % RDW (11.6-14.8) % Plt Count (150-400) X10^3/uL Neut % (Auto) (50-75) % Lymph % (Auto) (25-40) % Piute % (Auto) (3-14) % Eos % (Auto) (2-4) % Baso % (Auto) (0-2) % Neut # (Auto) (0139-0791) /uL Lymph # (Auto) (5463-4504) /uL Piute # (Auto) (0-900) /uL Eos # (Auto) (0-450) /uL Baso # (Auto) (0-100) /uL Sodium (137-145) mmol/L Potassium (3.4-5.1) mmol/L Chloride (98-107) mmol/L Carbon Dioxide (22-32) mmol/L BUN (9-20) mg/dL Creatinine (0.66-1.25) mg/dL Estimated GFR (>60) mL/min BUN/Creatinine Ratio (6-22) Glucose (70-100) mg/dL Lactate 0.8 (0.7-2.1) mmol/L Calcium (8.4-10.2) mg/dL Total Bilirubin (0.2-1.3) mg/dL AST (17-59) IU/L ALT (21-72) IU/L Alkaline Phosphatase (38-126) U/L Total Protein (6.3-8.2) g/dL Albumin (3.5-5.0) g/dL Globulin (1.7-4.1) g/dL Albumin/Globulin Ratio (1.0-2.8) Procalcitonin (<0.5) ng/mL MDM Narrative Medical decision making narrative: CBC was obtained and was Consistent with his prior lab values. No acute findings. Chemistry panel was obtained was unremarkable. Lactate was normal. Procalcitonin was normal. Do not appreciate signs of infection at this time. He was given a DuoNeb treatment to help with his asthma which helped his symptoms. He is referred to wound care for his chronic pressure ulcers. Follow up with primary care provider the next few days for re-evaluation. Patient to call wound care tomorrow and schedule follow -up appointment here in the next couple of days. Use currently prescribed pain management regimen as needed for discomfort <Rene Soria DO - Last Filed: 10/24/18 08:30> Lab Data Lab Results 10/23/18 10/23/18 10/23/18 Range/Units 15:10 15:10 15:10 WBC 9.6 (4.5-11.0) X10^3/uL RBC 4.28 L (4.5-5.9) X10^6/uL Hgb 10.7 L (13.5-17.5) g/dL Hct 34.1 L (41-53) % MCV 79.7 L (80-100) fL MCH 25.0 L (26-34) PG MCHC 31.4 (30-36) % RDW 15.8 H (11.6-14.8) % Plt Count 321 (150-400) X10^3/uL Neut % (Auto) 79.3 H (50-75) % Lymph % (Auto) 11.5 L (25-40) % Piute % (Auto) 8.8 (3-14) % Eos % (Auto) 0.1 L (2-4) % Baso % (Auto) 0.3 (0-2) % Neut # (Auto) 7600 H (6004-9789) /uL Lymph # (Auto) 1100 (7619-5100) /uL Piute # (Auto) 800 (0-900) /uL Eos # (Auto) 0 (0-450) /uL Baso # (Auto) 0 (0-100) /uL Sodium 137 (137-145) mmol/L Potassium 3.8 (3.4-5.1) mmol/L Chloride 98 (98-107) mmol/L Carbon Dioxide 32 (22-32) mmol/L BUN 6 L (9-20) mg/dL Creatinine 0.50 L (0.66-1.25) mg/dL Estimated GFR > 60.0 (>60) mL/min BUN/Creatinine Ratio 12.0 (6-22) Glucose 101 H (70-100) mg/dL Lactate (0.7-2.1) mmol/L Calcium 8.1 L (8.4-10.2) mg/dL Total Bilirubin 0.7 (0.2-1.3) mg/dL AST 12 L (17-59) IU/L ALT 16 L (21-72) IU/L Alkaline Phosphatase 79 (38-126) U/L Total Protein 7.2 (6.3-8.2) g/dL Albumin 3.4 L (3.5-5.0) g/dL Globulin 3.8 (1.7-4.1) g/dL Albumin/Globulin Ratio 0.9 L (1.0-2.8) Procalcitonin < 0.05 (<0.5) ng/mL 10/23/18 Range/Units 15:10 WBC (4.5-11.0) X10^3/uL RBC (4.5-5.9) X10^6/uL Hgb (13.5-17.5) g/dL Hct (41-53) % MCV (80-100) fL MCH (26-34) PG MCHC (30-36) % RDW (11.6-14.8) % Plt Count (150-400) X10^3/uL Neut % (Auto) (50-75) % Lymph % (Auto) (25-40) % Piute % (Auto) (3-14) % Eos % (Auto) (2-4) % Baso % (Auto) (0-2) % Neut # (Auto) (6319-5916) /uL Lymph # (Auto) (6043-9920) /uL Piute # (Auto) (0-900) /uL Eos # (Auto) (0-450) /uL Baso # (Auto) (0-100) /uL Sodium (137-145) mmol/L Potassium (3.4-5.1) mmol/L Chloride (98-107) mmol/L Carbon Dioxide (22-32) mmol/L BUN (9-20) mg/dL Creatinine (0.66-1.25) mg/dL Estimated GFR (>60) mL/min BUN/Creatinine Ratio (6-22) Glucose (70-100) mg/dL Lactate 0.8 (0.7-2.1) mmol/L Calcium (8.4-10.2) mg/dL Total Bilirubin (0.2-1.3) mg/dL AST (17-59) IU/L ALT (21-72) IU/L Alkaline Phosphatase (38-126) U/L Total Protein (6.3-8.2) g/dL Albumin (3.5-5.0) g/dL Globulin (1.7-4.1) g/dL Albumin/Globulin Ratio (1.0-2.8) Procalcitonin (<0.5) ng/mL Discharge Plan Departure Patient Disposition: Home Clinical Impression: Decubitus ulcer of buttock, stage 2 Discharge Date/Time: 10/23/18 18:30 Interventions: ED Discharge Assessment Last Done: 10/23/18 18:30 Instructions: DI for Pressure Sores Activity Restrictions/Additional Instructions: Sinus symptoms presents as chronic pressure ulcers to the buttocks and perineal area. Follow-up with wound care tomorrow call the number and schedule follow- up appointment. Follow up with primary care provider. Use currently prescribed pain management regimen as needed for any discomfort. Keep area clean and dry. Return emergency room for any worsening symptoms. Prescriptions: No Action fluticasone-salmeterol [Advair Diskus] 500 MCG/50 MCG blister with device 1 puff INH BID Qty: 2 RF: 5 methadone 10 MG tablet 95 mg PO QDAY Qty: 0 RF: 0 prednisone 10 mg tablet 10 mg PO BID RF: 0 lorazepam [Ativan] 1 mg tablet 1 mg PO BID-TID PRN (Reason: anxiety) Qty: 10 RF: 0 olanzapine 20 mg tablet 20 mg PO DAILY Qty: 10 RF: 0 gabapentin [Neurontin] 300 mg Capsule 300 mg PO TID Qty: 180 RF: 0 duloxetine [Cymbalta] 30 mg Capsule,Delayed Release(Dr/Ec) 30 mg PO DAILY Qty: 90 RF: 0 hydrocodone-acetaminophen [Underwood] 7.5-325 mg tablet 1 tab PO Q4-6H PRN (Reason: pain) Qty: 20 RF: 0 albuterol sulfate 90 mcg/actuation HFA aerosol inhaler 2 puff INHALATION Q4-6H PRN (Reason: shortness of breath or wheezing) Qty: 18 RF: 0 albuterol sulfate 2.5 MG/3 ML solution for nebulization 3 ml INH Q4HP PRN (Reason: Wheezing) Qty: 360 RF: 0 Referrals: Gabe Meraz PA-C [Primary Care Provider] - <Rene Soria DO - Last Filed: 10/24/18 08:30> Cosign ED Attending Edi Attestation: I was available for consultation during this patient's emergency department encounter
== END 2018-10-23 18:30 | disposition home or self-care (01) ==
PROVIDERS: Emergency Provider Nurse Practitioner Family; PCP Physician Assistant
DX: L89.302 Pressure ulcer of unspecified buttock, stage 2 (principal)
CPT/HCPCS: 36415; 36591; 80053; 83605; 84145; 85025; 87040; 94640; 96361; 96374; 99283; 99284; J1170

== ENCOUNTER 2018-10-25 14:53 | Emergency (ER) | payer OTHER, MEDICAID, SELFPAY ==
[2018-10-02 16:47] VITALS: BMI 85.4
[2018-10-25 15:05] VITALS: BP 119/67; PULSE 106; TEMP 37.1; O2SAT 94
--- NOTE | 2018-10-25 15:44 | ED.SKABFB ---
HPI - Skin/Abscess/Foreign Bdy <Ana Dominguez PA-C - Last Filed: 10/25/18 21:48> General Chief complaint: Skin/Abscess/Foreign Body Stated complaint: Anxiety, bleeding wounds on buttock Time Seen by Provider: 10/25/18 15:44 Source: patient Mode of arrival: EMS Limitations: no limitations History of Present Illness HPI narrative: This 37-year-old male who has chronic groin and gluteal wounds comes in today with EMS due to wound pain. He states that wounds have been draining and he has continued pain, maybe worse today. He states he had been given Vicodin for the pain which helps, and also pain medicines here helped. He states he has not been taking antibiotics. He was previously referred to wound center for these chronic wounds but has not been seen there yet. He states he has had temperatures to the 99 range. No new nausea or vomiting. No change in his asthma or new dyspnea. Related Data Home Medications Medication Instructions Recorded Confirmed methadone 95 mg PO QDAY #0 05/07/17 10/07/18 prednisone 10 mg PO BID 08/05/18 10/07/18 Previous Rx's Medication Instructions Recorded fluticasone-salmeterol [Advair 1 puff INH BID #2 inh 04/28/17 Diskus] albuterol sulfate 2 puff INHALATION Q4-6H PRN #18 07/11/18 gram albuterol sulfate 3 ml INH Q4HP PRN #360 ml 07/27/18 lorazepam [Ativan] 1 mg PO BID-TID PRN #10 tab 08/26/18 olanzapine 20 mg PO DAILY #10 tab 08/26/18 duloxetine [Cymbalta] 30 mg PO DAILY #90 cap 09/15/18 gabapentin [Neurontin] 300 mg PO TID #180 cap 09/15/18 hydrocodone-acetaminophen [[place]] 1 tab PO Q4-6H PRN #20 tab 09/15/18 Allergies Allergy/AdvReac Type Severity Reaction Status Date / Time NSAIDS (Non-Steroidal Allergy Unknown ASTHMA Verified 10/25/18 14:57 Anti-Inflamma FLARE UPS [NSAIDS (NON-STEROIDAL ANTI-INFLAMMA] ibuprofen AdvReac Mild nausea, GI Verified 10/25/18 14:57 upset Review of Systems <Ana Dominguez PA-C - Last Filed: 10/25/18 21:48> Review of Systems ROS Unobtainable: All systems reviewed & are unremarkable except as noted in HPI and below PFSH <Ana Dominguez PA-C - Last Filed: 10/25/18 21:48> Surgical History H/O vertebral fracture repair (Chronic) History of hip surgery (Chronic) Family History Mother Diabetes mellitus Father No problems noted. Social History household members: significant other Smoking Status: Former smoker Family History Mother Diabetes mellitus Father No problems noted. Social History household members: significant other Smoking Status: Former smoker Exam <Ana Dominguez PA-C - Last Filed: 10/25/18 21:48> Narrative Exam Narrative: GENERAL APPEARANCE: Patient resting, moans when I enter the room LUNGS: Clear to auscultation bilaterally. HEART: Rate and rhythm regular without murmur, normal S1 and S2, no S3 or S4. ABDOMEN: Obese, nontender, nondistended, positive bowel sounds x4 quadrants EXTREMITIES: Massive brawny edema, nontender DERMATOLOGIC: There are several wounds on both posterior thighs, largest on each side: left 5 x 9, right 6 x 3 cm, both have a little bit of slough , mostly denuded with pink tissue visible. No pus is draining. There is some patchy erythema near some of the wounds, skin is same temperature throughout the lower extremities. There is some superficial denudation on the ischium as well. Initial Vital Signs Initial Vital Signs: Vital Signs Temperature 98.7 F 10/25/18 15:05 Pulse Rate 106 H 10/25/18 15:05 Blood Pressure 119/67 10/25/18 15:05 Pulse Oximetry 94 10/25/18 15:05 <Parish Arizmendi DO - Last Filed: 11/01/18 07:45> Initial Vital Signs Initial Vital Signs: Vital Signs Temperature 98.7 F 10/25/18 15:05 Pulse Rate 106 H 10/25/18 15:05 Blood Pressure 119/67 10/25/18 15:05 Pulse Oximetry 94 10/25/18 15:05 Course <Ana Dominguez PA-C - Last Filed: 10/25/18 21:48> Additional Information: Patient was anxious on arrival, later fell asleep and then anxious again waiting for ambulance to take him home stating he wanted to go home. He reported feeling a bit better. He was given some Ativan to help with anxiety. No acute findings on lab work. His wounds appear chronic. No evidence of acute changes. We checked with wound clinic and he has had 3 appointments there and no showed for each. I advised that we are not going to treat this with pain medication today, and he does need treatment of these chronic wounds and follow-up with regular wound clinic visit. He may also benefit from home health. He was given a dose of doxycycline here and a prescription called in, and he promises to call wound care center in the morning for appointment. Findings reviewed with Dr. Arizmendi who is agreeable with above plan. Orders Ordered: Discontinued Medications Albuterol/Ipratropium (Duoneb) 3 ml INH NOW ONE Stop: 10/25/18 17:27 Last Admin: 10/25/18 17:39 Dose: 3 ml Doxycycline Hyclate (Vibramycin) 100 mg PO NOW ONE Stop: 10/25/18 15:59 Last Admin: 10/25/18 16:23 Dose: 100 mg Lorazepam (Ativan) 1 mg PO NOW ONE Stop: 10/25/18 15:59 Last Admin: 10/25/18 16:23 Dose: 1 mg Lorazepam (Ativan) 0.5 mg PO NOW ONE Stop: 10/25/18 19:29 Last Admin: 10/25/18 19:29 Dose: 0.5 mg Vital Signs - 8 hr 10/25/18 15:05 10/25/18 16:16 10/25/18 17:25 Temperature 98.7 F Pulse Rate 106 H 88 98 H Respiratory Rate 20 18 Blood Pressure [Right Wrist] 119/67 133/81 111/64 Pulse Oximetry 94 98 98 10/25/18 17:40 10/25/18 19:00 Temperature Pulse Rate 88 Respiratory Rate 20 14 Blood Pressure [Right Wrist] 110/72 Pulse Oximetry 88 L 98 <Parish Arizmendi DO - Last Filed: 11/01/18 07:45> Orders Ordered: Discontinued Medications Albuterol/Ipratropium (Duoneb) 3 ml INH NOW ONE Stop: 10/25/18 17:27 Last Admin: 10/25/18 17:39 Dose: 3 ml Doxycycline Hyclate (Vibramycin) 100 mg PO NOW ONE Stop: 10/25/18 15:59 Last Admin: 10/25/18 16:23 Dose: 100 mg Lorazepam (Ativan) 1 mg PO NOW ONE Stop: 10/25/18 15:59 Last Admin: 10/25/18 16:23 Dose: 1 mg Lorazepam (Ativan) 0.5 mg PO NOW ONE Stop: 10/25/18 19:29 Last Admin: 10/25/18 19:29 Dose: 0.5 mg Vital Signs - 8 hr 10/25/18 15:05 10/25/18 16:16 10/25/18 17:25 Temperature 98.7 F Pulse Rate 106 H 88 98 H Respiratory Rate 20 18 Blood Pressure [Right Wrist] 119/67 133/81 111/64 Pulse Oximetry 94 98 98 10/25/18 17:40 10/25/18 19:00 Temperature Pulse Rate 88 Respiratory Rate 20 14 Blood Pressure [Right Wrist] 110/72 Pulse Oximetry 88 L 98 MDM - Skin/Abscess/Foreign Bdy <Ana Dominguez PA-C - Last Filed: 10/25/18 21:48> Lab Data Result diagrams: 10/25/18 16:42 10/25/18 16:42 Lab Results 10/25/18 10/25/18 10/25/18 Range/Units 16:42 16:42 16:42 WBC 6.5 (4.5-11.0) X10^3/uL RBC 4.01 L (4.5-5.9) X10^6/uL Hgb 10.1 L (13.5-17.5) g/dL Hct 31.8 L (41-53) % MCV 79.3 L (80-100) fL MCH 25.2 L (26-34) PG MCHC 31.8 (30-36) % RDW 16.2 H (11.6-14.8) % Plt Count 256 (150-400) X10^3/uL Neut % (Auto) 68.9 (50-75) % Lymph % (Auto) 20.6 L (25-40) % [place] % (Auto) 9.9 (3-14) % Eos % (Auto) 0.4 L (2-4) % Baso % (Auto) 0.2 (0-2) % Neut # (Auto) 4500 (1345-9701) /uL Lymph # (Auto) 1300 (0072-9706) /uL [place] # (Auto) 600 (0-900) /uL Eos # (Auto) 0 (0-450) /uL Baso # (Auto) 0 (0-100) /uL Sodium 138 (137-145) mmol/L Potassium 3.4 (3.4-5.1) mmol/L Chloride 99 (98-107) mmol/L Carbon Dioxide 32 (22-32) mmol/L BUN 4 L (9-20) mg/dL Creatinine 0.50 L (0.66-1.25) mg/dL Estimated GFR > 60.0 (>60) mL/min BUN/Creatinine Ratio 8.0 (6-22) Glucose 85 (70-100) mg/dL Lactate 1.2 (0.7-2.1) mmol/L Calcium 8.1 L (8.4-10.2) mg/dL <Parish Arizmendi, DO - Last Filed: 11/01/18 07:45> Lab Data Lab Results 10/25/18 10/25/18 10/25/18 Range/Units 16:42 16:42 16:42 WBC 6.5 (4.5-11.0) X10^3/uL RBC 4.01 L (4.5-5.9) X10^6/uL Hgb 10.1 L (13.5-17.5) g/dL Hct 31.8 L (41-53) % MCV 79.3 L (80-100) fL MCH 25.2 L (26-34) PG MCHC 31.8 (30-36) % RDW 16.2 H (11.6-14.8) % Plt Count 256 (150-400) X10^3/uL Neut % (Auto) 68.9 (50-75) % Lymph % (Auto) 20.6 L (25-40) % [place] % (Auto) 9.9 (3-14) % Eos % (Auto) 0.4 L (2-4) % Baso % (Auto) 0.2 (0-2) % Neut # (Auto) 4500 (0203-8248) /uL Lymph # (Auto) 1300 (2727-9013) /uL [place] # (Auto) 600 (0-900) /uL Eos # (Auto) 0 (0-450) /uL Baso # (Auto) 0 (0-100) /uL Sodium 138 (137-145) mmol/L Potassium 3.4 (3.4-5.1) mmol/L Chloride 99 (98-107) mmol/L Carbon Dioxide 32 (22-32) mmol/L BUN 4 L (9-20) mg/dL Creatinine 0.50 L (0.66-1.25) mg/dL Estimated GFR > 60.0 (>60) mL/min BUN/Creatinine Ratio 8.0 (6-22) Glucose 85 (70-100) mg/dL Lactate 1.2 (0.7-2.1) mmol/L Calcium 8.1 L (8.4-10.2) mg/dL Discharge Plan Departure Patient Disposition: Home Clinical Impression: Decubitus ulcer of buttock, stage 2 Qualifiers: Laterality: unspecified laterality Qualified Code(s): L89.302 - Pressure ulcer of unspecified buttock, stage 2 Discharge Date/Time: 10/25/18 20:15 Interventions: ED Discharge Assessment Last Done: 10/25/18 20:14 Instructions: How to Prevent Pressure Ulcers, DI for Pressure Sores Activity Restrictions/Additional Instructions: Please call your PCP 1st thing tomorrow to arrange follow-up. Please talk with your primary care provider about getting home health nursing to come and help with your wounds and dressings. Please avoid sitting and lying on your bottom as much as possible, lie on your side or on your stomach, or even better, be up when you can. Work on weight loss which will likely help you be able to be more active and get pressure off of your wounds. We have given you the 1st dose of doxycycline antibiotic tonight to take until you follow up at the Wound Center. I did not take any wound cultures tonight as they were not draining today but you noted that they have been at home. Please corn picker the rest of the prescription and take your 2nd dose late tonight or early tomorrow morning. please call the wound center 1st thing tomorrow as well and make sure you schedule. They advised us that they have had you scheduled several times but that you missed your appointments. Prescriptions: No Action fluticasone-salmeterol [Advair Diskus] 500 MCG/50 MCG blister with device 1 puff INH BID Qty: 2 RF: 5 methadone 10 MG tablet 95 mg PO QDAY Qty: 0 RF: 0 prednisone 10 mg tablet 10 mg PO BID RF: 0 lorazepam [Ativan] 1 mg tablet 1 mg PO BID-TID PRN (Reason: anxiety) Qty: 10 RF: 0 olanzapine 20 mg tablet 20 mg PO DAILY Qty: 10 RF: 0 gabapentin [Neurontin] 300 mg Capsule 300 mg PO TID Qty: 180 RF: 0 duloxetine [Cymbalta] 30 mg Capsule,Delayed Release(Dr/Ec) 30 mg PO DAILY Qty: 90 RF: 0 hydrocodone-acetaminophen [[place]] 7.5-325 mg tablet 1 tab PO Q4-6H PRN (Reason: pain) Qty: 20 RF: 0 albuterol sulfate 90 mcg/actuation HFA aerosol inhaler 2 puff INHALATION Q4-6H PRN (Reason: shortness of breath or wheezing) Qty: 18 RF: 0 albuterol sulfate 2.5 MG/3 ML solution for nebulization 3 ml INH Q4HP PRN (Reason: Wheezing) Qty: 360 RF: 0 Referrals: Gabe Meraz PA-C [Primary Care Provider] - Scott Moncada MD [Physician] - <Parish Arizmendi DO - Last Filed: 11/01/18 07:45> Cosign ED Attending Edi Attestation: I was immediately available in the department for consultation. Documentation has been reviewed. I agree with assessment and plan.
[2018-10-25 16:16] VITALS: BP 133/81; PULSE 88; RESP 20; O2SAT 98
[2018-10-25] MEDS: DOXYCYCLINE HYCLATE 100 MG TABLET PO (16:23)
[2018-10-25] MEDS: LORazepam 0.5 MG TABLET 1 MG PO (16:23)
[2018-10-25 16:50] LABS: Add Manual Diff / Slide Review NO; Basophils Absolute Auto 0 /uL (0-100); Basophils Percent Auto 0.2 % (0-2); Eosinophils Absolute Auto 0 /uL (0-450); Eosinophils Percent Auto 0.4 % (2-4); Hematocrit 31.8 % (41-53); Hemoglobin 10.1 g/dL (13.5-17.5); Lymphocytes Absolute Auto 1300 /uL (1100-4500); Lymphocytes Percent Auto 20.6 % (25-40); Mean Corpuscular HGB Conc 31.8 % (30-36); Mean Corpuscular Hemoglobin 25.2 PG (26-34); Mean Corpuscular Volume 79.3 fL (80-100); Monocytes Absolute Auto 600 /uL (0-900); Monocytes Percent Auto 9.9 % (3-14); Neutrophils Absolute Auto 4500 /uL (1500-7000); Neutrophils Percent Auto 68.9 % (50-75); Platelet Count 256 X10^3/uL (150-400); Red Blood Cell Count 4.01 X10^6/uL (4.5-5.9); Red Cell Distribution Width 16.2 % (11.6-14.8); White Blood Cell Count 6.5 X10^3/uL (4.5-11.0)
[2018-10-25 17:12] LABS: Blood Urea Nitrogen 4 mg/dL (9-20); Calcium 8.1 mg/dL (8.4-10.2); Carbon Dioxide 32 mmol/L (22-32); Chloride 99 mmol/L (98-107); Estimated Glomerular Filt Rate > 60.0 mL/min (>60); Glucose 85 mg/dL (70-100); HEMOLYSIS < 15 (0-50); Lactate (Lactic Acid) 1.2 mmol/L (0.7-2.1); Potassium 3.4 mmol/L (3.4-5.1); Sodium 138 mmol/L (137-145)
[2018-10-25 17:25] VITALS: BP 111/64; PULSE 98; RESP 18; O2SAT 98
[2018-10-25] MEDS: ALBUTEROL/IPRATROPIUM 3 ML AMPUL INH (17:39)
[2018-10-25 17:40] VITALS: RESP 20; O2SAT 88
--- NOTE | 2018-10-25 18:07 | CM.SWNOTE ---
ED BRAKE MECHANIC NOTE: Precipitant: Pt is a 37 yo morbidly obese male with frequent ED visits. He was brought to the ED by EMS and reported significant pain. There was no specific precipitant; pt was last admitted 10/05/18. This is often the reason for the ED visit. BRAKE MECHANIC spoke with pt to assess what could be tried that might lessen the number of visits. Assessment: BRAKE MECHANIC inquired about obstacles to getting to appointments. Pt said that he has transportation through Medicaid and is awaiting an appt with wound care. According to the PA, wound care told her that pt has no showed three times. Pt reported that he is able to ambulate around his home by using a walker, but also has a wheelchair. He stated that his girlfriend helps him in the shower and also attends to his wounds. Due to his large size, it is questionable whether pt's girlfriend would be able to assist him in the shower unless he is able to get into and out of the shower independently. Pt came to the ED today with very poor hygiene and a strong odor. Pt is O x3. He is clearly not acknowledging the level of need he has, as it does not appear that anyone at home is able to care for his wounds. He is aware of the need to go to the wound care center, has transportation, but still misses these appointments. Since pt is alert, oriented and still decisional, APS was not contacted. Pt was in agreement for this SW or staff to make contact with the [facility] SW and his PCP. [facility] was very clear with pt that coming to the ED is not meeting his needs. Calls were made and a message was left with the GENO Amin at [facility]. Due to questions about confidentiality and if the # was correct, a message was not left at [facility]. ED BRAKE MECHANIC will inform that release has been obtained. Plan: Pt does not meet criteria for an admission and will be sent back home by cab this evening. No further SW needs noted. Discharge Planning/Care Management ED Crisis Response Assessment Start: 10/25/18 17:56 Freq: Status: Active Protocol: Document 10/25/18 17:57 BG (Rec: 10/25/18 18:07 BG [id number]) ED Crisis Response Assessment BRAKE MECHANIC Assessment Type Other Reason for BRAKE MECHANIC Referral Frequent ED visits. Pt came in again with new wounds, diabetes in poor control, poor follow up with medical care and obesity. Referred by Provider and charge nurse. Presenting Problem Pt is a 37 yo male with frequent ED visits and a recent admission mid-September 2018. He reported that he was in pain due to his wounds. According to note from Reshma Phillips MSW 10/05/18 Pt has a Eloisa LORA at [facility] and PCP is now at [facility]/ Dr Kirill Matute [phone]. ([facility] attempted to call this number, but it was not clear if this # is accurate) It was requested that a release of information be obtained to enable treatment planning. This has been accomplished. Mental health diagnosis Anxiety [facility] check No
[2018-10-25 19:00] VITALS: BP 110/72; PULSE 88; RESP 14; O2SAT 98
[2018-10-25] MEDS: LORazepam 0.5 MG TABLET PO (19:29)
--- NOTE | 2018-10-25 19:52 | PC.NURSE ---
Physical exam completed by STARLA Dominguez
--- NOTE | 2018-10-25 23:05 | PC.NURSE ---
3 ACID CONCENTRATOR's assisted the Provider in repositioning patient as to assess the wounds on the back of his legs and bottom. Patient attempted multiple times to scratch the open wounds with his fingers, despite us stopping him and telling the patient why he should not be doing that, preventing infection. Repositioned the patient onto his side to relieve pressure.
--- NOTE | 2018-10-25 23:10 | PC.NURSE ---
Patient continues to call nursing staff to ask to be repositioned and given snacks.
--- NOTE | 2018-10-25 23:13 | PC.NURSE ---
Patient calling out to anyone walking by, yelled for me down the gonsales to go to the bathroom. Another CFA assisted me in wheeling patient to the bathroom. patient asking for and wondering what the plan is. Provider had just told patient we were trying to verify wound care appointment not even 5 minutes prior.
== END 2018-10-25 20:15 | disposition home or self-care (01) ==
PROVIDERS: Emergency Provider Internal Medicine; PCP Physician Assistant
DX: L89.302 Pressure ulcer of unspecified buttock, stage 2 (principal)
CPT/HCPCS: 36415; 80048; 83605; 85025; 94640; 99283

== ENCOUNTER 2018-10-29 11:04 | Emergency (ER) | payer OTHER, MEDICAID, SELFPAY ==
[2018-10-02 16:47] VITALS: BMI 85.4
[2018-10-29 11:13] VITALS: BP 117/53; PULSE 71; RESP 19; TEMP 36.5; O2SAT 93; BMI 82.6
[2018-10-29 12:33] VITALS: BP 114/58; PULSE 108; RESP 24; TEMP 36.8; O2SAT 92
--- NOTE | 2018-10-29 13:06 | DI.RAD.S_ITS ---
PROCEDURE: XR CHEST 1V INDICATIONS: anxiety TECHNIQUE: One view of the chest was acquired. COMPARISON: [facility], CR, XR CHEST FOR PICC 1V, 09/03/2018, 4:19. [facility], CR, XR CHEST 1V, 08/29/2018, 19:57. [facility], CR, XR CHEST 1V, 08/26/2018, 11:43. [facility], CR, XR CHEST 1V, 08/05/2018, 10:14. FINDINGS: Surgical changes and devices: None. Lungs and pleura: Lungs are clear. No pleural effusions or pneumothorax. There is prominence of the pulmonary vasculature. Mediastinum: Mediastinal contours appear normal. Heart size is normal. Bones and chest wall: No suspicious bony lesions. Overlying soft tissues appear unremarkable. IMPRESSION: No acute cardiopulmonary disease. Dictated by: John Canela M.D. on 10/29/2018 at 15:10 Approved by: John Canela M.D. on 10/29/2018 at 15:11
--- NOTE | 2018-10-29 13:11 | ED_ITS ---
HPI - Anxiety General Chief Complaint: Anxiety Stated Complaint: Anxious Time Seen by Provider: 10/29/18 12:57 Source: patient, EMS and old records reviewed Mode of arrival: EMS Limitations: no limitations History of Present Illness HPI narrative: This is a 37-year-old male who comes to the emergency department with complaint of anxiety. Patient states that he is out of his Zyprexa. Patient states that he did see his primary care provider recently. Patient is continue to take his methadone and when direct bili questions states he is taking his doxycycline. Patient states that the wound on his buttocks have also been worsening. Patient states that they have been painful. He states he tried calling the [facility] but has not seen them since his last visit to the ER. He had missed his last 3 appointments for wound care. He states there has been is some discussion for home health care but it has not been established. Patient states he sometimes uses the Medicaid number for transportation. He has a girlfriend he states they are not together but live together but he states she does not really help with his care. Patient states he feels a little short of breath although that is not his main complaint. He does think he would benefit from a breathing treatment. No chest pain, no other GI or urinary symptoms at this time. No fevers. Related Data Home Medications Medication Instructions Recorded Confirmed methadone 95 mg PO QDAY #0 05/07/17 10/07/18 prednisone 10 mg PO BID 08/05/18 10/07/18 Previous Rx's Medication Instructions Recorded fluticasone-salmeterol [Advair 1 puff INH BID #2 inh 04/28/17 Diskus] albuterol sulfate 2 puff INHALATION Q4-6H PRN #18 07/11/18 gram albuterol sulfate 3 ml INH Q4HP PRN #360 ml 07/27/18 lorazepam [Ativan] 1 mg PO BID-TID PRN #10 tab 08/26/18 olanzapine 20 mg PO DAILY #10 tab 08/26/18 duloxetine [Cymbalta] 30 mg PO DAILY #90 cap 09/15/18 gabapentin [Neurontin] 300 mg PO TID #180 cap 09/15/18 hydrocodone-acetaminophen [Champion] 1 tab PO Q4-6H PRN #20 tab 09/15/18 doxycycline monohydrate 100 mg PO BID 7 Days #14 cap 10/25/18 Allergies Allergy/AdvReac Type Severity Reaction Status Date / Time NSAIDS (Non-Steroidal Allergy Unknown ASTHMA Verified 10/25/18 14:57 Anti-Inflamma FLARE UPS [NSAIDS (NON-STEROIDAL ANTI-INFLAMMA] ibuprofen AdvReac Mild nausea, GI Verified 10/25/18 14:57 upset Review of Systems Review of Systems ROS Unobtainable: All systems reviewed & are unremarkable except as noted in HPI and below Constitutional Denies chills, Denies fever(s), Denies lethargy and Denies weakness Cardiovascular Denies chest pain, Denies irregular heart rhythm, Denies lightheadedness, Denies palpitations, Reports dyspnea, Denies dyspnea on exertion and Denies orthopnea Respiratory Denies cough, Reports dyspnea, Denies dyspnea on exertion and Denies wheezing Gastrointestinal Gastrointestinal: Denies abdominal pain, Denies change in bowel habits, Denies diarrhea, Denies nausea and Denies vomiting Integumentary/Breasts Reports non-healing lesions (sacral decubs) and Reports wounds Neurologic Denies weakness Psychiatric Reports anxiety Endocrine Denies palpitations Allergic/Immunologic Denies wheezing [facility] Medical History Anxiety (Acute) Asthma (Acute) Chronic skin ulcer (Chronic) Methadone use disorder, mild, in controlled environment (Chronic) Morbid obesity (Chronic) Surgical History H/O vertebral fracture repair (Chronic) History of hip surgery (Chronic) Family History Mother Diabetes mellitus Father No problems noted. Social History household members: significant other Smoking Status: Former smoker Social History household members: significant other Smoking Status: Former smoker Exam Narrative Exam Narrative: GENERAL: Alert and oriented x three, morbidly obese patient in moderate distress. HEENT: Head normocephalic, atraumatic, EOMI, pupils reactive, face symmetric, moist mucous membranes NECK: Supple, full range of motion CARDIOVASCULAR: Regular rate and rhythm without murmurs, rubs or gallops. RESPIRATORY: Breath sounds equal bilaterally, no rales or rhonchi. Patient has very mild wheeze. No tachypnea or accessory muscle use. ABDOMEN: Soft, nontender. Normoactive bowel sounds all 4 quadrants. No guarding or rebound, rigidity, no mass : No CVA tenderness EXTREMITIES: Normal range of motion, no clubbing. Chronic venous stasis changes. Neurovascularly intact NEUROLOGICAL: Cranial nerves II through XII grossly intact. Moving all extremities SKIN: Warm, dry, no petechiae, Patient has three separate decubs visualized on exam. Two large decubs on the buttocks and smaller centrally, pink granulation tissue exposed, no bone or fat noted, no purulent discharge, there is foul odor, moderately tender, patient was scratching extensively during evaluation at the areas. Initial Vital Signs Initial Vital Signs: Vital Signs Temperature 97.7 F 10/29/18 11:13 Pulse Rate 71 10/29/18 11:13 Respiratory Rate 19 10/29/18 11:13 Blood Pressure 117/53 L 10/29/18 11:13 Pulse Oximetry 93 10/29/18 11:13 Course Orders Ordered: ED Orders 10/29/18 13:06 XR chest 1V Stat 10/29/18 13:35 Complete Blood Count AUTO DIFF Stat Comprehensive Metabolic Panel Stat Procalcitonin Stat Troponin & CK Cardiac Panel Stat Discontinued Medications Albuterol/Ipratropium (Duoneb) 3 ml INH NOW ONE Stop: 10/29/18 13:07 Last Admin: 10/29/18 13:22 Dose: 3 ml Olanzapine (Zyprexa Zydis) 20 mg PO NOW ONE Stop: 10/29/18 13:07 Last Admin: 10/29/18 13:14 Dose: 20 mg Vital Signs - 8 hr 10/29/18 11:13 10/29/18 12:33 10/29/18 13:23 Temperature 97.7 F 98.2 F Pulse Rate 71 108 H 102 H Respiratory Rate 19 24 14 Blood Pressure 117/53 L Blood Pressure [Left Arm] 114/58 L Pulse Oximetry 93 92 93 10/29/18 15:53 Temperature 98.3 F Pulse Rate 118 H Respiratory Rate 20 Blood Pressure Blood Pressure [Left Arm] 124/72 Pulse Oximetry 95 MDM - Anxiety Lab Data Attestation: I reviewed the patient's lab results. Result diagrams: 10/29/18 13:35 10/29/18 13:35 Lab Results 10/29/18 10/29/18 10/29/18 Range/Units 13:35 13:35 13:35 WBC 7.2 (4.5-11.0) X10^3/uL RBC 4.02 L (4.5-5.9) X10^6/uL Hgb 10.2 L (13.5-17.5) g/dL Hct 31.7 L (41-53) % MCV 79.0 L (80-100) fL MCH 25.4 L (26-34) PG MCHC 32.1 (30-36) % RDW 16.1 H (11.6-14.8) % Plt Count 304 (150-400) X10^3/uL Neut % (Auto) 76.0 H (50-75) % Lymph % (Auto) 15.5 L (25-40) % Gaston % (Auto) 8.0 (3-14) % Eos % (Auto) 0.1 L (2-4) % Baso % (Auto) 0.4 (0-2) % Neut # (Auto) 5500 (1118-9488) /uL Lymph # (Auto) 1100 (4745-2522) /uL Gaston # (Auto) 600 (0-900) /uL Eos # (Auto) 0 (0-450) /uL Baso # (Auto) 0 (0-100) /uL Sodium 137 (137-145) mmol/L Potassium 3.8 (3.4-5.1) mmol/L Chloride 99 (98-107) mmol/L Carbon Dioxide 32 (22-32) mmol/L BUN 5 L (9-20) mg/dL Creatinine 0.50 L (0.66-1.25) mg/dL Estimated GFR > 60.0 (>60) mL/min BUN/Creatinine Ratio 10.0 (6-22) Glucose 92 (70-100) mg/dL Calcium 8.1 L (8.4-10.2) mg/dL Total Bilirubin 0.7 (0.2-1.3) mg/dL AST 12 L (17-59) IU/L ALT 17 L (21-72) IU/L Alkaline Phosphatase 72 (38-126) U/L Total Creatine Kinase (55-170) U/L CK-MB (CK-2) CK-MB (CK-2) Rel Index Troponin I (0.01-0.034) ng/mL Total Protein 6.7 (6.3-8.2) g/dL Albumin 3.0 L (3.5-5.0) g/dL Globulin 3.7 (1.7-4.1) g/dL Albumin/Globulin Ratio 0.8 L (1.0-2.8) Procalcitonin < 0.05 (<0.5) ng/mL 10/29/18 Range/Units 13:35 WBC (4.5-11.0) X10^3/uL RBC (4.5-5.9) X10^6/uL Hgb (13.5-17.5) g/dL Hct (41-53) % MCV (80-100) fL MCH (26-34) PG MCHC (30-36) % RDW (11.6-14.8) % Plt Count (150-400) X10^3/uL Neut % (Auto) (50-75) % Lymph % (Auto) (25-40) % Gaston % (Auto) (3-14) % Eos % (Auto) (2-4) % Baso % (Auto) (0-2) % Neut # (Auto) (9775-3609) /uL Lymph # (Auto) (4041-4363) /uL Gaston # (Auto) (0-900) /uL Eos # (Auto) (0-450) /uL Baso # (Auto) (0-100) /uL Sodium (137-145) mmol/L Potassium (3.4-5.1) mmol/L Chloride (98-107) mmol/L Carbon Dioxide (22-32) mmol/L BUN (9-20) mg/dL Creatinine (0.66-1.25) mg/dL Estimated GFR (>60) mL/min BUN/Creatinine Ratio (6-22) Glucose (70-100) mg/dL Calcium (8.4-10.2) mg/dL Total Bilirubin (0.2-1.3) mg/dL AST (17-59) IU/L ALT (21-72) IU/L Alkaline Phosphatase (38-126) U/L Total Creatine Kinase 27 L (55-170) U/L CK-MB (CK-2) TNP CK-MB (CK-2) Rel Index TNP Troponin I < 0.012 (0.01-0.034) ng/mL Total Protein (6.3-8.2) g/dL Albumin (3.5-5.0) g/dL Globulin (1.7-4.1) g/dL Albumin/Globulin Ratio (1.0-2.8) Procalcitonin (<0.5) ng/mL Imaging Data Chest x-ray: Attestation: I personally reviewed and interpreted this imaging study as follows: ECG Data Attestation: I personally reviewed and interpreted this ECG as follows: Prior ECG tracings: available for review Interpretation: Sinus rhythm with occasional supraventricular complex. Rate 93 P are 174 QRS [address] elevation or depression noted. MDM Narrative Medical decision making narrative: Patient comes in with complaint of anxiety. He states he is out of his Zyprexa given a dose here in the emergency department. Lab work did not show any major changes today. Patient continues to have wounds in his buttocks that are not improving but do not appear significantly worse. Patient has not followed up with wound care at this time., he has missed three appointments before 10/25. Also set up for another and did not attend this. I spoke with social work and patient was having home health care but she states that they stopped attending as patient was not very compliant Um and was having increasing needs. Patient did have discussion before in the hospital about placement in a facility but there were no bariatric beds available and have not been open at this time. Patient also states that he has a ride to his appointments he can call Medicaid and they will transport him. But patient has not been doing so. Discussed with Dr. Patterson the hospitalist about hospitalization and there is no signs of sepsis at this time, wounds are still present there are not improving but do not appear to be rapidly worsening. Based on patient's issues with attending wound care appointments, ect. they declined hospitalization at this time. Discharge Plan Departure Patient Disposition: Home Clinical Impression: Anxiety, Decubitus ulcer of buttock Discharge Date/Time: 10/29/18 16:40 Interventions: ED Discharge Assessment Last Done: 10/29/18 16:59 Instructions: DI for Pressure Sores Activity Restrictions/Additional Instructions: Follow up with your physician in the next several days. Also follow up with wound care, call for an appointment. You have [facility] last several appointments please make sure that you go. Call Medicaid for the Medicaid transportation to your appointments. Continue home medications as prescribed. Continue your doxycycline as prescribed. Return for fevers greater than 100.4, new shortness of breath, chest pain or pressure, persistent vomiting, passing out, rapidly worsening changes to her skin or other new or concerning symptoms. Prescriptions: No Action fluticasone-salmeterol [Advair Diskus] 500 MCG/50 MCG blister with device 1 puff INH BID Qty: 2 RF: 5 methadone 10 MG tablet 95 mg PO QDAY Qty: 0 RF: 0 prednisone 10 mg tablet 10 mg PO BID RF: 0 lorazepam [Ativan] 1 mg tablet 1 mg PO BID-TID PRN (Reason: anxiety) Qty: 10 RF: 0 olanzapine 20 mg tablet 20 mg PO DAILY Qty: 10 RF: 0 gabapentin [Neurontin] 300 mg Capsule 300 mg PO TID Qty: 180 RF: 0 duloxetine [Cymbalta] 30 mg Capsule,Delayed Release(Dr/Ec) 30 mg PO DAILY Qty: 90 RF: 0 hydrocodone-acetaminophen [Champion] 7.5-325 mg tablet 1 tab PO Q4-6H PRN (Reason: pain) Qty: 20 RF: 0 albuterol sulfate 90 mcg/actuation HFA aerosol inhaler 2 puff INHALATION Q4-6H PRN (Reason: shortness of breath or wheezing) Qty: 18 RF: 0 albuterol sulfate 2.5 MG/3 ML solution for nebulization 3 ml INH Q4HP PRN (Reason: Wheezing) Qty: 360 RF: 0 doxycycline monohydrate 100 mg capsule 100 mg PO BID 7 Days Qty: 14 RF: 0 Referrals: Gabe Meraz PA-C [Primary Care Provider] -
[2018-10-29] MEDS: OLANZapine ODT 10 MG TAB 20 MG PO (13:14)
[2018-10-29] MEDS: ALBUTEROL/IPRATROPIUM 3 ML AMPUL INH (13:22)
[2018-10-29 13:23] VITALS: PULSE 102; RESP 14; O2SAT 93
[2018-10-29 13:45] LABS: Add Manual Diff / Slide Review NO; Basophils Absolute Auto 0 /uL (0-100); Basophils Percent Auto 0.4 % (0-2); Eosinophils Absolute Auto 0 /uL (0-450); Eosinophils Percent Auto 0.1 % (2-4); Hematocrit 31.7 % (41-53); Hemoglobin 10.2 g/dL (13.5-17.5); Lymphocytes Absolute Auto 1100 /uL (1100-4500); Lymphocytes Percent Auto 15.5 % (25-40); Mean Corpuscular HGB Conc 32.1 % (30-36); Mean Corpuscular Hemoglobin 25.4 PG (26-34); Monocytes Absolute Auto 600 /uL (0-900); Neutrophils Absolute Auto 5500 /uL (1500-7000); Platelet Count 304 X10^3/uL (150-400); Red Blood Cell Count 4.02 X10^6/uL (4.5-5.9); Red Cell Distribution Width 16.1 % (11.6-14.8); White Blood Cell Count 7.2 X10^3/uL (4.5-11.0)
[2018-10-29 14:01] LABS: Alanine Aminotransferase 17 IU/L (21-72); Albumin Globulin Ratio 0.8 (1.0-2.8); Alkaline Phosphatase 72 U/L (38-126); Aspartate Aminotransferase 12 IU/L (17-59); Bilirubin Total 0.7 mg/dL (0.2-1.3); Blood Urea Nitrogen 5 mg/dL (9-20); Calcium 8.1 mg/dL (8.4-10.2); Carbon Dioxide 32 mmol/L (22-32); Chloride 99 mmol/L (98-107); Creatine Kinase 27 U/L (55-170); Estimated Glomerular Filt Rate > 60.0 mL/min (>60); Globulin 3.7 g/dL (1.7-4.1); Glucose 92 mg/dL (70-100); HEMOLYSIS < 15 (0-50); Potassium 3.8 mmol/L (3.4-5.1); Sodium 137 mmol/L (137-145); Total Protein 6.7 g/dL (6.3-8.2)
[2018-10-29 14:14] LABS: Troponin I < 0.012 ng/mL (0.01-0.034)
[2018-10-29 14:20] LABS: Procalcitonin < 0.05 ng/mL (<0.5)
[2018-10-29 15:53] VITALS: BP 124/72; PULSE 118; RESP 20; TEMP 36.8; O2SAT 95
== END 2018-10-29 16:40 | disposition home or self-care (01) ==
PROVIDERS: Emergency Provider Emergency Medicine; PCP Physician Assistant
DX: L89.309 Pressure ulcer of unspecified buttock, unspecified stage (principal); F41.9 Anxiety disorder, unspecified
CPT/HCPCS: 36591; 71045; 80053; 82550; 84145; 84484; 85025; 93005; 94640; 99282; 99285

== ENCOUNTER 2018-11-03 12:55 | Inpatient (IN) | payer OTHER, MEDICAID, SELFPAY ==
[2018-10-02 16:47] VITALS: BMI 85.4
[2018-11-03] VITALS (19 sets, daily range): BP systolic 86–118; BP diastolic 34–60; PULSE 18–102; RESP 14–84; TEMP 36.7–37.3; O2SAT 91–100; BMI 69.3
--- NOTE | 2018-11-03 13:55 | ED.SKABFB ---
HPI - Skin/Abscess/Foreign Bdy <Ana Dominguez PA-C - Last Filed: 11/03/18 21:33> General Chief complaint: Skin/Abscess/Foreign Body Stated complaint: Sores on legs Time Seen by Provider: 11/03/18 13:50 Source: patient Mode of arrival: EMS Limitations: no limitations History of Present Illness HPI narrative: This 38-year-old male returns to ED secondary to increasing bleeding from his thigh and perineal area wounds. He states that he is supposed to have wound care clinic visit tomorrow, was unable to get there yesterday. He states that he has not noted other drainage, but is passing some clots with the blood. He continues to have pain he states although asleep when I enter the room. He states that he has been taking the antibiotic prescribed for him here. He states that he had a fever of 100 last night, none noted today. No respiratory difficulties or other complaints on exam Related Data Home Medications Medication Instructions Recorded Confirmed methadone 95 mg PO DAILY #0 05/07/17 11/03/18 prednisone 10 mg PO BID 08/05/18 11/03/18 Previous Rx's Medication Instructions Recorded Advair Diskus 1 puff INH BID #2 inh 04/28/17 albuterol sulfate 2 puff INHALATION Q4-6H PRN #18 07/11/18 gram albuterol sulfate 3 ml INH Q4HP PRN #360 ml 07/27/18 lorazepam [Ativan] 1 mg PO BID-TID PRN #10 tab 08/26/18 olanzapine 20 mg PO DAILY #10 tab 08/26/18 duloxetine [Cymbalta] 30 mg PO DAILY #90 cap 09/15/18 gabapentin [Neurontin] 300 mg PO TID #180 cap 09/15/18 hydrocodone-acetaminophen [[place]] 1 tab PO Q4-6H PRN #20 tab 09/15/18 Allergies Allergy/AdvReac Type Severity Reaction Status Date / Time NSAIDS (Non-Steroidal Allergy Unknown ASTHMA Verified 11/03/18 13:07 Anti-Inflamma FLARE UPS [NSAIDS (NON-STEROIDAL ANTI-INFLAMMA] ibuprofen AdvReac Mild nausea, GI Verified 11/03/18 13:07 upset Review of Systems <Ana Dominguez PA-C - Last Filed: 11/03/18 21:33> Review of Systems ROS Unobtainable: All systems reviewed & are unremarkable except as noted in HPI and below PFSH <Ana Dominguez PA-C - Last Filed: 11/03/18 21:33> Medical History Anxiety (Acute) Asthma (Acute) Chronic skin ulcer (Chronic) Methadone use disorder, mild, in controlled environment (Chronic) Morbid obesity (Chronic) Surgical History H/O vertebral fracture repair (Chronic) History of hip surgery (Chronic) Family History Mother Diabetes mellitus Father No problems noted. Social History household members: significant other Smoking Status: Former smoker Family History Mother Diabetes mellitus Father No problems noted. Social History household members: significant other Smoking Status: Current every day smoker Exam <CAMPBELL Sales Last Filed: 11/03/18 21:33> Narrative Exam Narrative: GENERAL APPEARANCE: Patient sleeping comfortably LUNGS: Clear to auscultation bilaterally. HEART: Rate and rhythm regular without murmur, normal S1 and S2, no S3 or S4. ABDOMEN: Obese, nontender, nondistended EXTREMITIES: Massive brawny edema, nontender, dried blood and some open areas around the R>L ankle DERMATOLOGIC: There are several wounds on both posterior and inner thighs thighs, largest on each side, especially the right side appears larger than previous exam and deeper, in some spots fat is visible. Central areas appear dark brown. Malodorous. No pus is draining. Initial Vital Signs Initial Vital Signs: Vital Signs Temperature 98.3 F 11/03/18 13:00 Pulse Rate 102 H 11/03/18 13:00 Respiratory Rate 22 11/03/18 13:00 Blood Pressure 118/60 11/03/18 13:00 Pulse Oximetry 91 11/03/18 13:00 <Parish Arizmendi DO - Last Filed: 11/05/18 19:33> Initial Vital Signs Initial Vital Signs: Vital Signs Temperature 98.3 F 11/03/18 13:00 Pulse Rate 102 H 11/03/18 13:00 Respiratory Rate 22 11/03/18 13:00 Blood Pressure 118/60 11/03/18 13:00 Pulse Oximetry 91 11/03/18 13:00 Course <Ana Dominguez PA-C - Last Filed: 11/03/18 21:33> Additional Information: Dr. Moncada and [facility]ier[facility] wound care [facility] were kind enough to evaluate patient in ED and agree his wounds have worsened, advised surgical debridement. Dr. Pratt has been to see patient in ED and plans to take him to OR since he reports NPO today (both fluids and food). She requested admit to medicine for management of chronic meds and pain. Dr. Cobos accepts for admission (PCP Dr. Zapata) Orders Ordered: Acetaminophen (Tylenol) 650 mg PO Q6HR PRN PRN Reason: As Needed for Fever/Mild Pain Last Admin: 11/04/18 06:09 Dose: 650 mg Albuterol (Ventolin Hfa) 2 puff INH Q4H PRN PRN Reason: shortness of breath or wheezing Albuterol (Ventolin) 2.5 mg INH Q4H PRN PRN Reason: Wheezing Last Admin: 11/04/18 09:24 Dose: 2.5 mg Admin: 11/03/18 20:20 Dose: 2.5 mg Ascorbic Acid (Vitamin C) 500 mg PO DAILY [facility] Last Admin: 11/05/18 08:01 Dose: 500 mg Bisacodyl (Dulcolax) 10 mg PO DAILY PRN PRN Reason: Constipation Docusate Sodium (Colace) 100 mg PO BID [facility] Last Admin: 11/05/18 13:26 Dose: 100 mg Admin: 11/04/18 21:11 Dose: 100 mg Admin: 11/04/18 08:45 Dose: Not Given Admin: 11/03/18 21:44 Dose: 100 mg Duloxetine HCl (Cymbalta) 30 mg PO DAILY [facility] Last Admin: 11/05/18 08:00 Dose: 30 mg Admin: 11/04/18 08:45 Dose: 30 mg Enoxaparin Sodium (Lovenox) 40 mg SUBCUT DAILY [facility] Last Admin: 11/05/18 08:00 Dose: 40 mg Admin: 11/04/18 08:47 Dose: 40 mg Admin: 11/03/18 21:43 Dose: 40 mg Ferrous Sulfate (Ferrous Sulfate) 325 mg PO DAILY [facility] Last Admin: 11/05/18 08:00 Dose: 325 mg Gabapentin (Neurontin) 300 mg PO TID [facility] Last Admin: 11/05/18 13:25 Dose: 300 mg Admin: 11/05/18 08:01 Dose: 300 mg Admin: 11/04/18 21:11 Dose: 300 mg Admin: 11/04/18 14:16 Dose: Not Given Admin: 11/04/18 08:45 Dose: 300 mg Admin: 11/03/18 21:44 Dose: 300 mg Piperacillin/Tazobactam/Dextrose (Zosyn) 4.5 gm in 100 mls @ 200 mls/hr IV Q6H [facility] Last Admin: 11/05/18 17:25 Dose: 200 mls/hr Infusion: 11/05/18 10:38 Dose: 0 mls/hr Admin: 11/05/18 09:49 Dose: 200 mls/hr Infusion: 11/05/18 04:23 Dose: 200 mls/hr Admin: 11/05/18 03:43 Dose: 200 mls/hr Infusion: 11/04/18 22:20 Dose: 200 mls/hr Admin: 11/04/18 21:50 Dose: 200 mls/hr Infusion: 11/04/18 17:45 Dose: 200 mls/hr Admin: 11/04/18 17:15 Dose: 200 mls/hr Infusion: 11/04/18 13:10 Dose: 0 mls/hr Admin: 11/04/18 11:31 Dose: 200 mls/hr Infusion: 11/04/18 04:48 Dose: 0 mls/hr Admin: 11/04/18 03:24 Dose: 200 mls/hr Infusion: 11/03/18 22:39 Dose: 0 mls/hr Admin: 11/03/18 21:50 Dose: 200 mls/hr Ibuprofen (Advil) 600 mg PO Q6HR PRN PRN Reason: As Needed for Fever/Mild Pain Last Admin: 11/03/18 21:43 Dose: 600 mg Lorazepam (Ativan) 1 mg PO TID [facility] Last Admin: 11/05/18 14:36 Dose: Not Given Admin: 11/05/18 13:26 Dose: Not Given Admin: 11/04/18 21:11 Dose: 1 mg Admin: 11/04/18 14:16 Dose: Not Given Admin: 11/04/18 08:46 Dose: 1 mg Admin: 11/03/18 21:49 Dose: 1 mg Methadone HCl (Methadone) 95 mg PO DAILY [facility] Last Admin: 11/05/18 08:01 Dose: 95 mg Admin: 11/04/18 13:30 Dose: 95 mg Olanzapine (Zyprexa) 20 mg PO DAILY [facility] Last Admin: 11/05/18 08:00 Dose: 20 mg Admin: 11/04/18 08:45 Dose: 20 mg Prednisone (Deltasone) 20 mg PO DAILY [facility] Last Admin: 11/05/18 13:25 Dose: 20 mg Admin: 11/04/18 08:45 Dose: Not Given Fluticasone/Salmeterol (Advair 500/50 Diskus) 1 puff INH BID [facility] Last Admin: 11/05/18 08:03 Dose: Not Given Admin: 11/04/18 20:49 Dose: Not Given Admin: 11/04/18 08:48 Dose: Not Given Admin: 11/03/18 20:20 Dose: Not Given Sodium Chloride (Normal Saline 0.9% Flush) 10 ml IV BID [facility] Last Admin: 11/05/18 09:55 Dose: 10 ml Admin: 11/04/18 21:11 Dose: 10 ml Admin: 11/04/18 08:48 Dose: 10 ml Sodium Chloride (Normal Saline 0.9% Flush) 10 ml IV PRN PRN PRN Reason: Flush Last Admin: 11/05/18 04:23 Dose: 10 ml Discontinued Medications Fentanyl (Sublimaze) 50 mcg IV Q5MIN PRN PRN Reason: Pain, Moderate (4-6) Last Admin: 11/03/18 17:20 Dose: 50 mcg Admin: 11/03/18 17:09 Dose: 50 mcg Hydromorphone HCl (Dilaudid) 0.5 mg IV Q5MIN PRN PRN Reason: Pain, Moderate (4-6) Piperacillin/Tazobactam/Dextrose (Zosyn) 2.25 gm in 50 mls @ 100 mls/hr IV NOW ONE Stop: 11/03/18 16:49 Last Infusion: 11/03/18 16:06 Dose: 0 mls/hr Admin: 11/03/18 15:57 Dose: 100 mls/hr Lactated Ringer's (Lactated Ringers) 1,000 mls @ 42 mls/hr IV CONT PACHECO Last Infusion: 11/03/18 17:45 Dose: 0 mls/hr Admin: 11/03/18 17:18 Dose: 200 mls/hr Infusion: 11/03/18 17:17 Dose: 200 mls/hr Admin: 11/03/18 15:55 Dose: 42 mls/hr Metoclopramide HCl (Reglan) 10 mg IV NOW PRN PRN Reason: Nausea And Vomiting Ondansetron HCl (Zofran) 4 mg IV NOW PRN PRN Reason: Nausea And Vomiting Ondansetron HCl (Zofran) 4 mg IV Q8HR PRN PRN Reason: Nausea And Vomiting Oxycodone/Acetaminophen (Percocet 5/325) 2 tab PO NOW ONE Stop: 11/03/18 16:59 Last Admin: 11/03/18 17:07 Dose: 2 tab Vital Signs - 8 hr 11/05/18 14:06 11/05/18 16:25 Temperature 97.9 F 97.8 F Pulse Rate 94 H 87 Respiratory Rate 18 21 Blood Pressure 124/62 109/60 Pulse Oximetry 96 98 <Parish Arizmendi, - Last Filed: 11/05/18 19:33> Orders Ordered: Acetaminophen (Tylenol) 650 mg PO Q6HR PRN PRN Reason: As Needed for Fever/Mild Pain Last Admin: 11/04/18 06:09 Dose: 650 mg Albuterol (Ventolin Hfa) 2 puff INH Q4H PRN PRN Reason: shortness of breath or wheezing Albuterol (Ventolin) 2.5 mg INH Q4H PRN PRN Reason: Wheezing Last Admin: 11/04/18 09:24 Dose: 2.5 mg Admin: 11/03/18 20:20 Dose: 2.5 mg Ascorbic Acid (Vitamin C) 500 mg PO DAILY [facility] Last Admin: 11/05/18 08:01 Dose: 500 mg Bisacodyl (Dulcolax) 10 mg PO DAILY PRN PRN Reason: Constipation Docusate Sodium (Colace) 100 mg PO BID [facility] Last Admin: 11/05/18 13:26 Dose: 100 mg Admin: 11/04/18 21:11 Dose: 100 mg Admin: 11/04/18 08:45 Dose: Not Given Admin: 11/03/18 21:44 Dose: 100 mg Duloxetine HCl (Cymbalta) 30 mg PO DAILY [facility] Last Admin: 11/05/18 08:00 Dose: 30 mg Admin: 11/04/18 08:45 Dose: 30 mg Enoxaparin Sodium (Lovenox) 40 mg SUBCUT DAILY [facility] Last Admin: 11/05/18 08:00 Dose: 40 mg Admin: 11/04/18 08:47 Dose: 40 mg Admin: 11/03/18 21:43 Dose: 40 mg Ferrous Sulfate (Ferrous Sulfate) 325 mg PO DAILY [facility] Last Admin: 11/05/18 08:00 Dose: 325 mg Gabapentin (Neurontin) 300 mg PO TID [facility] Last Admin: 11/05/18 13:25 Dose: 300 mg Admin: 11/05/18 08:01 Dose: 300 mg Admin: 11/04/18 21:11 Dose: 300 mg Admin: 11/04/18 14:16 Dose: Not Given Admin: 11/04/18 08:45 Dose: 300 mg Admin: 11/03/18 21:44 Dose: 300 mg Piperacillin/Tazobactam/Dextrose (Zosyn) 4.5 gm in 100 mls @ 200 mls/hr IV Q6H [facility] Last Admin: 11/05/18 17:25 Dose: 200 mls/hr Infusion: 11/05/18 10:38 Dose: 0 mls/hr Admin: 11/05/18 09:49 Dose: 200 mls/hr Infusion: 11/05/18 04:23 Dose: 200 mls/hr Admin: 11/05/18 03:43 Dose: 200 mls/hr Infusion: 11/04/18 22:20 Dose: 200 mls/hr Admin: 11/04/18 21:50 Dose: 200 mls/hr Infusion: 11/04/18 17:45 Dose: 200 mls/hr Admin: 11/04/18 17:15 Dose: 200 mls/hr Infusion: 11/04/18 13:10 Dose: 0 mls/hr Admin: 11/04/18 11:31 Dose: 200 mls/hr Infusion: 11/04/18 04:48 Dose: 0 mls/hr Admin: 11/04/18 03:24 Dose: 200 mls/hr Infusion: 11/03/18 22:39 Dose: 0 mls/hr Admin: 11/03/18 21:50 Dose: 200 mls/hr Ibuprofen (Advil) 600 mg PO Q6HR PRN PRN Reason: As Needed for Fever/Mild Pain Last Admin: 11/03/18 21:43 Dose: 600 mg Lorazepam (Ativan) 1 mg PO TID [facility] Last Admin: 11/05/18 14:36 Dose: Not Given Admin: 11/05/18 13:26 Dose: Not Given Admin: 11/04/18 21:11 Dose: 1 mg Admin: 11/04/18 14:16 Dose: Not Given Admin: 11/04/18 08:46 Dose: 1 mg Admin: 11/03/18 21:49 Dose: 1 mg Methadone HCl (Methadone) 95 mg PO DAILY [facility] Last Admin: 11/05/18 08:01 Dose: 95 mg Admin: 11/04/18 13:30 Dose: 95 mg Olanzapine (Zyprexa) 20 mg PO DAILY [facility] Last Admin: 11/05/18 08:00 Dose: 20 mg Admin: 11/04/18 08:45 Dose: 20 mg Prednisone (Deltasone) 20 mg PO DAILY [facility] Last Admin: 11/05/18 13:25 Dose: 20 mg Admin: 11/04/18 08:45 Dose: Not Given Fluticasone/Salmeterol (Advair 500/50 Diskus) 1 puff INH BID [facility] Last Admin: 11/05/18 08:03 Dose: Not Given Admin: 11/04/18 20:49 Dose: Not Given Admin: 11/04/18 08:48 Dose: Not Given Admin: 11/03/18 20:20 Dose: Not Given Sodium Chloride (Normal Saline 0.9% Flush) 10 ml IV BID [facility] Last Admin: 11/05/18 09:55 Dose: 10 ml Admin: 11/04/18 21:11 Dose: 10 ml Admin: 11/04/18 08:48 Dose: 10 ml Sodium Chloride (Normal Saline 0.9% Flush) 10 ml IV PRN PRN PRN Reason: Flush Last Admin: 11/05/18 04:23 Dose: 10 ml Discontinued Medications Fentanyl (Sublimaze) 50 mcg IV Q5MIN PRN PRN Reason: Pain, Moderate (4-6) Last Admin: 11/03/18 17:20 Dose: 50 mcg Admin: 11/03/18 17:09 Dose: 50 mcg Hydromorphone HCl (Dilaudid) 0.5 mg IV Q5MIN PRN PRN Reason: Pain, Moderate (4-6) Piperacillin/Tazobactam/Dextrose (Zosyn) 2.25 gm in 50 mls @ 100 mls/hr IV NOW ONE Stop: 11/03/18 16:49 Last Infusion: 11/03/18 16:06 Dose: 0 mls/hr Admin: 11/03/18 15:57 Dose: 100 mls/hr Lactated Ringer's (Lactated Ringers) 1,000 mls @ 42 mls/hr IV CONT PACHECO Last Infusion: 11/03/18 17:45 Dose: 0 mls/hr Admin: 11/03/18 17:18 Dose: 200 mls/hr Infusion: 11/03/18 17:17 Dose: 200 mls/hr Admin: 11/03/18 15:55 Dose: 42 mls/hr Metoclopramide HCl (Reglan) 10 mg IV NOW PRN PRN Reason: Nausea And Vomiting Ondansetron HCl (Zofran) 4 mg IV NOW PRN PRN Reason: Nausea And Vomiting Ondansetron HCl (Zofran) 4 mg IV Q8HR PRN PRN Reason: Nausea And Vomiting Oxycodone/Acetaminophen (Percocet 5/325) 2 tab PO NOW ONE Stop: 11/03/18 16:59 Last Admin: 11/03/18 17:07 Dose: 2 tab Vital Signs - 8 hr 11/05/18 14:06 11/05/18 16:25 Temperature 97.9 F 97.8 F Pulse Rate 94 H 87 Respiratory Rate 18 21 Blood Pressure 124/62 109/60 Pulse Oximetry 96 98 MDM - Skin/Abscess/Foreign Bdy <Ana Dominguez PA-C - Last Filed: 11/03/18 21:33> Lab Data Result diagrams: 11/05/18 08:38 11/04/18 06:25 Lab Results 11/03/18 11/03/18 11/03/18 Range/Units 14:16 14:16 14:16 WBC 8.4 (4.5-11.0) X10^3/uL RBC 3.83 L (4.5-5.9) X10^6/uL Hgb 9.5 L (13.5-17.5) g/dL Hct 30.4 L (41-53) % MCV 79.3 L (80-100) fL MCH 24.8 L (26-34) PG MCHC 31.3 (30-36) % RDW 16.3 H (11.6-14.8) % Plt Count 239 (150-400) X10^3/uL Neut % (Auto) 74.5 (50-75) % Lymph % (Auto) 15.7 L (25-40) % [place] % (Auto) 9.3 (3-14) % Eos % (Auto) 0.3 L (2-4) % Baso % (Auto) 0.2 (0-2) % Neut # (Auto) 6300 (1564-2008) /uL Lymph # (Auto) 1300 (7493-2442) /uL [place] # (Auto) 800 (0-900) /uL Eos # (Auto) 0 (0-450) /uL Baso # (Auto) 0 (0-100) /uL Sodium 137 (137-145) mmol/L Potassium 3.5 (3.4-5.1) mmol/L Chloride 99 (98-107) mmol/L Carbon Dioxide 32 (22-32) mmol/L BUN 8 L (9-20) mg/dL Creatinine 0.60 L (0.66-1.25) mg/dL Estimated GFR > 60.0 (>60) mL/min BUN/Creatinine Ratio 13.3 (6-22) Glucose 88 (70-100) mg/dL Lactate 1.5 (0.7-2.1) mmol/L Calcium 7.7 L (8.4-10.2) mg/dL Total Bilirubin (0.2-1.3) mg/dL AST (17-59) IU/L ALT (21-72) IU/L Alkaline Phosphatase (38-126) U/L Total Protein (6.3-8.2) g/dL Albumin (3.5-5.0) g/dL Globulin (1.7-4.1) g/dL Albumin/Globulin Ratio (1.0-2.8) 11/04/18 11/04/18 11/05/18 Range/Units 06:25 06:25 08:38 WBC 4.8 3.9 L (4.5-11.0) X10^3/uL RBC 3.32 L 3.28 L (4.5-5.9) X10^6/uL Hgb 8.4 L 8.3 L (13.5-17.5) g/dL Hct 25.7 L 26.8 L (41-53) % MCV 77.6 L 81.6 D (80-100) fL MCH 25.3 L 25.3 L (26-34) PG MCHC 32.6 31.0 (30-36) % RDW 16.4 H 16.3 H (11.6-14.8) % Plt Count 188 266 (150-400) X10^3/uL Neut % (Auto) 58.8 71.6 (50-75) % Lymph % (Auto) 28.6 18.6 L (25-40) % [place] % (Auto) 11.5 9.2 (3-14) % Eos % (Auto) 1.0 L 0.4 L (2-4) % Baso % (Auto) 0.1 0.2 (0-2) % Neut # (Auto) 2800 2800 (6168-8131) /uL Lymph # (Auto) 1400 700 L (6444-1416) /uL [place] # (Auto) 500 400 (0-900) /uL Eos # (Auto) 0 0 (0-450) /uL Baso # (Auto) 0 0 (0-100) /uL Sodium 137 (137-145) mmol/L Potassium 3.7 (3.4-5.1) mmol/L Chloride 99 (98-107) mmol/L Carbon Dioxide 32 (22-32) mmol/L BUN 8 L (9-20) mg/dL Creatinine 0.60 L (0.66-1.25) mg/dL Estimated GFR > 60.0 (>60) mL/min BUN/Creatinine Ratio 13.3 (6-22) Glucose 98 (70-100) mg/dL Lactate (0.7-2.1) mmol/L Calcium 7.7 L (8.4-10.2) mg/dL Total Bilirubin 0.7 (0.2-1.3) mg/dL AST 10 L (17-59) IU/L ALT 21 (21-72) IU/L Alkaline Phosphatase 61 (38-126) U/L Total Protein 5.9 L (6.3-8.2) g/dL Albumin 2.5 L (3.5-5.0) g/dL Globulin 3.4 (1.7-4.1) g/dL Albumin/Globulin Ratio 0.7 L (1.0-2.8) <Parish Arizmendi, DO - Last Filed: 11/05/18 19:33> Lab Data Lab Results 11/03/18 11/03/18 11/03/18 Range/Units 14:16 14:16 14:16 WBC 8.4 (4.5-11.0) X10^3/uL RBC 3.83 L (4.5-5.9) X10^6/uL Hgb 9.5 L (13.5-17.5) g/dL Hct 30.4 L (41-53) % MCV 79.3 L (80-100) fL MCH 24.8 L (26-34) PG MCHC 31.3 (30-36) % RDW 16.3 H (11.6-14.8) % Plt Count 239 (150-400) X10^3/uL Neut % (Auto) 74.5 (50-75) % Lymph % (Auto) 15.7 L (25-40) % [place] % (Auto) 9.3 (3-14) % Eos % (Auto) 0.3 L (2-4) % Baso % (Auto) 0.2 (0-2) % Neut # (Auto) 6300 (0625-0491) /uL Lymph # (Auto) 1300 (4147-2006) /uL [place] # (Auto) 800 (0-900) /uL Eos # (Auto) 0 (0-450) /uL Baso # (Auto) 0 (0-100) /uL Sodium 137 (137-145) mmol/L Potassium 3.5 (3.4-5.1) mmol/L Chloride 99 (98-107) mmol/L Carbon Dioxide 32 (22-32) mmol/L BUN 8 L (9-20) mg/dL Creatinine 0.60 L (0.66-1.25) mg/dL Estimated GFR > 60.0 (>60) mL/min BUN/Creatinine Ratio 13.3 (6-22) Glucose 88 (70-100) mg/dL Lactate 1.5 (0.7-2.1) mmol/L Calcium 7.7 L (8.4-10.2) mg/dL Total Bilirubin (0.2-1.3) mg/dL AST (17-59) IU/L ALT (21-72) IU/L Alkaline Phosphatase (38-126) U/L Total Protein (6.3-8.2) g/dL Albumin (3.5-5.0) g/dL Globulin (1.7-4.1) g/dL Albumin/Globulin Ratio (1.0-2.8) 11/04/18 11/04/18 11/05/18 Range/Units 06:25 06:25 08:38 WBC 4.8 3.9 L (4.5-11.0) X10^3/uL RBC 3.32 L 3.28 L (4.5-5.9) X10^6/uL Hgb 8.4 L 8.3 L (13.5-17.5) g/dL Hct 25.7 L 26.8 L (41-53) % MCV 77.6 L 81.6 D (80-100) fL MCH 25.3 L 25.3 L (26-34) PG MCHC 32.6 31.0 (30-36) % RDW 16.4 H 16.3 H (11.6-14.8) % Plt Count 188 266 (150-400) X10^3/uL Neut % (Auto) 58.8 71.6 (50-75) % Lymph % (Auto) 28.6 18.6 L (25-40) % [place] % (Auto) 11.5 9.2 (3-14) % Eos % (Auto) 1.0 L 0.4 L (2-4) % Baso % (Auto) 0.1 0.2 (0-2) % Neut # (Auto) 2800 2800 (0787-2692) /uL Lymph # (Auto) 1400 700 L (1494-9951) /uL [place] # (Auto) 500 400 (0-900) /uL Eos # (Auto) 0 0 (0-450) /uL Baso # (Auto) 0 0 (0-100) /uL Sodium 137 (137-145) mmol/L Potassium 3.7 (3.4-5.1) mmol/L Chloride 99 (98-107) mmol/L Carbon Dioxide 32 (22-32) mmol/L BUN 8 L (9-20) mg/dL Creatinine 0.60 L (0.66-1.25) mg/dL Estimated GFR > 60.0 (>60) mL/min BUN/Creatinine Ratio 13.3 (6-22) Glucose 98 (70-100) mg/dL Lactate (0.7-2.1) mmol/L Calcium 7.7 L (8.4-10.2) mg/dL Total Bilirubin 0.7 (0.2-1.3) mg/dL AST 10 L (17-59) IU/L ALT 21 (21-72) IU/L Alkaline Phosphatase 61 (38-126) U/L Total Protein 5.9 L (6.3-8.2) g/dL Albumin 2.5 L (3.5-5.0) g/dL Globulin 3.4 (1.7-4.1) g/dL Albumin/Globulin Ratio 0.7 L (1.0-2.8) Discharge Plan Departure Patient Disposition: Admitted As Inpatient Clinical Impression: Decubitus ulcer of buttock, stage 2 Qualifiers: Laterality: unspecified laterality Qualified Code(s): L89.302 - Pressure ulcer of unspecified buttock, stage 2 Discharge Date/Time: 11/03/18 15:30 Interventions: ED Discharge Assessment Last Done: 11/03/18 16:02 Admit Date/Time: 11/03/18 15:37 Admit Provider: Niurka Cobos <Parish Arizmendi DO - Last Filed: 11/05/18 19:33> Cosign ED Attending Edi Attestation: I was immediately available in the department for consultation. Documentation has been reviewed. I agree with assessment and plan.
--- NOTE | 2018-11-03 14:04 | ED_ITS ---
HPI - Skin/Abscess/Foreign Bdy <Ana Dominguez PA-C - Last Filed: 11/03/18 21:33> General Chief complaint: Skin/Abscess/Foreign Body Stated complaint: Sores on legs Time Seen by Provider: 11/03/18 13:50 Source: patient Mode of arrival: EMS Limitations: no limitations History of Present Illness HPI narrative: This 38-year-old male returns to ED secondary to increasing bleeding from his thigh and perineal area wounds. He states that he is supposed to have wound care clinic visit tomorrow, was unable to get there yesterday. He states that he has not noted other drainage, but is passing some clots with the blood. He continues to have pain he states although asleep when I enter the r oom. He states that he has been taking the antibiotic prescribed for him here. He states that he had a fever of 100 last night, none noted today. No respiratory difficulties or other complaints on exam Related Data Home Medications Medication Instructions Recorded Confirmed methadone 95 mg PO DAILY #0 05/07/17 11/03/18 prednisone 10 mg PO BID 08/05/18 11/03/18 Previous Rx's Medication Instructions Recorded Advair Diskus 1 puff INH BID #2 inh 04/28/17 albuterol sulfate 2 puff INHALATION Q4-6H PRN #18 07/11/18 gram albuterol sulfate 3 ml INH Q4HP PRN #360 ml 07/27/18 lorazepam [Ativan] 1 mg PO BID-TID PRN #10 tab 08/26/18 olanzapine 20 mg PO DAILY #10 tab 08/26/18 duloxetine [Cymbalta] 30 mg PO DAILY #90 cap 09/15/18 gabapentin [Neurontin] 300 mg PO TID #180 cap 09/15/18 hydrocodone-acetaminophen [[place]] 1 tab PO Q4-6H PRN #20 tab 09/15/18 Allergies Allergy/AdvReac Type Severity Reaction Status Date / Time NSAIDS (Non-Steroidal Allergy Unknown ASTHMA Verified 11/03/18 13:07 Anti-Inflamma FLARE UPS [NSAIDS (NON-STEROIDAL ANTI-INFLAMMA] ibuprofen AdvReac Mild nausea, GI Verified 11/03/18 13:07 upset Review of Systems <Ana Dominguez PA-C - Last Filed: 11/03/18 21:33> Review of Systems ROS Unobtainable: All systems reviewed & are unremarkable except as noted in HPI and below PFSH <Ana Dominguez PA-C - Last Filed: 11/03/18 21:33> Medical History Anxiety (Acute) Asthma (Acute) Chronic skin ulcer (Chronic) Methadone use disorder, mild, in controlled environment (Chronic) Morbid obesity (Chronic) Surgical History H/O vertebral fracture repair (Chronic) History of hip surgery (Chronic) Family History Mother Diabetes mellitus Father No problems noted. Social History household members: significant other Smoking Status: Former smoker Family History Mother Diabetes mellitus Father No problems noted. Social History household members: significant other Smoking Status: Current every day smoker Exam <Ana Dominguez PA-C - Last Filed: 11/03/18 21:33> Narrative Exam Narrative: GENERAL APPEARANCE: Patient sleeping comfortably LUNGS: Clear to auscultation bilaterally. HEART: Rate and rhythm regular without murmur, normal S1 and S2, no S3 or S4. ABDOMEN: Obese, nontender, nondistended EXTREMITIES: Massive brawny edema, nontender, dried blood and some open areas around the R>L ankle DERMATOLOGIC: There are several wounds on both posterior and inner thighs thighs, largest on each side, especially the right side appears larger than pr evious exam and deeper, in some spots fat is visible. Central areas appear dark brown. Malodorous. No pus is draining. Initial Vital Signs Initial Vital Signs: Vital Signs Temperature 98.3 F 11/03/18 13:00 Pulse Rate 102 H 11/03/18 13:00 Respiratory Rate 22 11/03/18 13:00 Blood Pressure 118/60 11/03/18 13:00 Pulse Oximetry 91 11/03/18 13:00 <Parish Arizmendi DO - Last Filed: 11/05/18 19:33> Initial Vital Signs Initial Vital Signs: Vital Signs Temperature 98.3 F 11/03/18 13:00 Pulse Rate 102 H 11/03/18 13:00 Respiratory Rate 22 11/03/18 13:00 Blood Pressure 118/60 11/03/18 13:00 Pulse Oximetry 91 11/03/18 13:00 Course <Ana Dominguez PA-C - Last Filed: 11/03/18 21:33> Additional Information: Dr. Moncada and Kiersten wound care [facility] [employer] were kind enough to evaluate patient in ED and agree his wounds have worsened, advised surgical debridement. Dr. Pratt has been to see patient in ED and plans to take him to OR since he reports NPO today (both fluids and food). She requested admit to medicine for management of chronic meds and pain. Dr. Cobos accepts for admission (PCP Dr. Zapata) Orders Ordered: Acetaminophen (Tylenol) 650 mg PO Q6HR PRN PRN Reason: As Needed for Fever/Mild Pain Last Admin: 11/04/18 06:09 Dose: 650 mg Albuterol (Ventolin Hfa) 2 puff INH Q4H PRN PRN Reason: shortness of breath or wheezing Albuterol (Ventolin) 2.5 mg INH Q4H PRN PRN Reason: Wheezing Last Admin: 11/04/18 09:24 Dose: 2.5 mg Admin: 11/03/18 20:20 Dose: 2.5 mg Ascorbic Acid (Vitamin C) 500 mg PO DAILY [facility] Last Admin: 11/05/18 08:01 Dose: 500 mg Bisacodyl (Dulcolax) 10 mg PO DAILY PRN PRN Reason: Constipation Docusate Sodium (Colace) 100 mg PO BID [facility] Last Admin: 11/05/18 13:26 Dose: 100 mg Admin: 11/04/18 21:11 Dose: 100 mg Admin: 11/04/18 08:45 Dose: Not Given Admin: 11/03/18 21:44 Dose: 100 mg Duloxetine HCl (Cymbalta) 30 mg PO DAILY [facility] Last Admin: 11/05/18 08:00 Dose: 30 mg Admin: 11/04/18 08:45 Dose: 30 mg Enoxaparin Sodium (Lovenox) 40 mg SUBCUT DAILY [facility] Last Admin: 11/05/18 08:00 Dose: 40 mg Admin: 11/04/18 08:47 Dose: 40 mg Admin: 11/03/18 21:43 Dose: 40 mg Ferrous Sulfate (Ferrous Sulfate) 325 mg PO DAILY [facility] Last Admin: 11/05/18 08:00 Dose: 325 mg Gabapentin (Neurontin) 300 mg PO TID [facility] Last Admin: 11/05/18 13:25 Dose: 300 mg Admin: 11/05/18 08:01 Dose: 300 mg Admin: 11/04/18 21:11 Dose: 300 mg Admin: 11/04/18 14:16 Dose: Not Given Admin: 11/04/18 08:45 Dose: 300 mg Admin: 11/03/18 21:44 Dose: 300 mg Piperacillin/Tazobactam/Dextrose (Zosyn) 4.5 gm in 100 mls @ 200 mls/hr IV Q6H [facility] Last Admin: 11/05/18 17:25 Dose: 200 mls/hr Infusion: 11/05/18 10:38 Dose: 0 mls/hr Admin: 11/05/18 09:49 Dose: 200 mls/hr Infusion: 11/05/18 04:23 Dose: 200 mls/hr Admin: 11/05/18 03:43 Dose: 200 mls/hr Infusion: 11/04/18 22:20 Dose: 200 mls/hr Admin: 11/04/18 21:50 Dose: 200 mls/hr Infusion: 11/04/18 17:45 Dose: 200 mls/hr Admin: 11/04/18 17:15 Dose: 200 mls/hr Infusion: 11/04/18 13:10 Dose: 0 mls/hr Admin: 11/04/18 11:31 Dose: 200 mls/hr Infusion: 11/04/18 04:48 Dose: 0 mls/hr Admin: 11/04/18 03:24 Dose: 200 mls/hr Infusion: 11/03/18 22:39 Dose: 0 mls/hr Admin: 11/03/18 21:50 Dose: 200 mls/hr Ibuprofen (Advil) 600 mg PO Q6HR PRN PRN Reason: As Needed for Fever/Mild Pain Last Admin: 11/03/18 21:43 Dose: 600 mg Lorazepam (Ativan) 1 mg PO TID [facility] Last Admin: 11/05/18 14:36 Dose: Not Given Admin: 11/05/18 13:26 Dose: Not Given Admin: 11/04/18 21:11 Dose: 1 mg Admin: 11/04/18 14:16 Dose: Not Given Admin: 11/04/18 08:46 Dose: 1 mg Admin: 11/03/18 21:49 Dose: 1 mg Methadone HCl (Methadone) 95 mg PO DAILY [facility] Last Admin: 11/05/18 08:01 Dose: 95 mg Admin: 11/04/18 13:30 Dose: 95 mg Olanzapine (Zyprexa) 20 mg PO DAILY [facility] Last Admin: 11/05/18 08:00 Dose: 20 mg Admin: 11/04/18 08:45 Dose: 20 mg Prednisone (Deltasone) 20 mg PO DAILY [facility] Last Admin: 11/05/18 13:25 Dose: 20 mg Admin: 11/04/18 08:45 Dose: Not Given Fluticasone/Salmeterol (Advair 500/50 Diskus) 1 puff INH BID [facility] Last Admin: 11/05/18 08:03 Dose: Not Given Admin: 11/04/18 20:49 Dose: Not Given Admin: 11/04/18 08:48 Dose: Not Given Admin: 11/03/18 20:20 Dose: Not Given Sodium Chloride (Normal Saline 0.9% Flush) 10 ml IV BID [facility] Last Admin: 11/05/18 09:55 Dose: 10 ml Admin: 11/04/18 21:11 Dose: 10 ml Admin: 11/04/18 08:48 Dose: 10 ml Sodium Chloride (Normal Saline 0.9% Flush) 10 ml IV PRN PRN PRN Reason: Flush Last Admin: 11/05/18 04:23 Dose: 10 ml Discontinued Medications Fentanyl (Sublimaze) 50 mcg IV Q5MIN PRN PRN Reason: Pain, Moderate (4-6) Last Admin: 11/03/18 17:20 Dose: 50 mcg Admin: 11/03/18 17:09 Dose: 50 mcg Hydromorphone HCl (Dilaudid) 0.5 mg IV Q5MIN PRN PRN Reason: Pain, Moderate (4-6) Piperacillin/Tazobactam/Dextrose (Zosyn) 2.25 gm in 50 mls @ 100 mls/hr IV NOW ONE Stop: 11/03/18 16:49 Last Infusion: 11/03/18 16:06 Dose: 0 mls/hr Admin: 11/03/18 15:57 Dose: 100 mls/hr Lactated Ringer's (Lactated Ringers) 1,000 mls @ 42 mls/hr IV CONT [facility] Last Infusion: 11/03/18 17:45 Dose: 0 mls/hr Admin: 11/03/18 17:18 Dose: 200 mls/hr Infusion: 11/03/18 17:17 Dose: 200 mls/hr Admin: 11/03/18 15:55 Dose: 42 mls/hr Metoclopramide HCl (Reglan) 10 mg IV NOW PRN PRN Reason: Nausea And Vomiting Ondansetron HCl (Zofran) 4 mg IV NOW PRN PRN Reason: Nausea And Vomiting Ondansetron HCl (Zofran) 4 mg IV Q8HR PRN PRN Reason: Nausea And Vomiting Oxycodone/Acetaminophen (Percocet 5/325) 2 tab PO NOW ONE Stop: 11/03/18 16:59 Last Admin: 11/03/18 17:07 Dose: 2 tab Vital Signs - 8 hr 11/05/18 14:06 11/05/18 16:25 Temperature 97.9 F 97.8 F Pulse Rate 94 H 87 Respiratory Rate 18 21 Blood Pressure 124/62 109/60 Pulse Oximetry 96 98 <Parish Arizmendi DO - Last Filed: 11/05/18 19:33> Orders Ordered: Acetaminophen (Tylenol) 650 mg PO Q6HR PRN PRN Reason: As Needed for Fever/Mild Pain Last Admin: 11/04/18 06:09 Dose: 650 mg Albuterol (Ventolin Hfa) 2 puff INH Q4H PRN PRN Reason: shortness of breath or wheezing Albuterol (Ventolin) 2.5 mg INH Q4H PRN PRN Reason: Wheezing Last Admin: 11/04/18 09:24 Dose: 2.5 mg Admin: 11/03/18 20:20 Dose: 2.5 mg Ascorbic Acid (Vitamin C) 500 mg PO DAILY [facility] Last Admin: 11/05/18 08:01 Dose: 500 mg Bisacodyl (Dulcolax) 10 mg PO DAILY PRN PRN Reason: Constipation Docusate Sodium (Colace) 100 mg PO BID [facility] Last Admin: 11/05/18 13:26 Dose: 100 mg Admin: 11/04/18 21:11 Dose: 100 mg Admin: 11/04/18 08:45 Dose: Not Given Admin: 11/03/18 21:44 Dose: 100 mg Duloxetine HCl (Cymbalta) 30 mg PO DAILY [facility] Last Admin: 11/05/18 08:00 Dose: 30 mg Admin: 11/04/18 08:45 Dose: 30 mg Enoxaparin Sodium (Lovenox) 40 mg SUBCUT DAILY [facility] Last Admin: 11/05/18 08:00 Dose: 40 mg Admin: 11/04/18 08:47 Dose: 40 mg Admin: 11/03/18 21:43 Dose: 40 mg Ferrous Sulfate (Ferrous Sulfate) 325 mg PO DAILY [facility] Last Admin: 11/05/18 08:00 Dose: 325 mg Gabapentin (Neurontin) 300 mg PO TID [facility] Last Admin: 11/05/18 13:25 Dose: 300 mg Admin: 11/05/18 08:01 Dose: 300 mg Admin: 11/04/18 21:11 Dose: 300 mg Admin: 11/04/18 14:16 Dose: Not Given Admin: 11/04/18 08:45 Dose: 300 mg Admin: 11/03/18 21:44 Dose: 300 mg Piperacillin/Tazobactam/Dextrose (Zosyn) 4.5 gm in 100 mls @ 200 mls/hr IV Q6H [facility] Last Admin: 11/05/18 17:25 Dose: 200 mls/hr Infusion: 11/05/18 10:38 Dose: 0 mls/hr Admin: 11/05/18 09:49 Dose: 200 mls/hr Infusion: 11/05/18 04:23 Dose: 200 mls/hr Admin: 11/05/18 03:43 Dose: 200 mls/hr Infusion: 11/04/18 22:20 Dose: 200 mls/hr Admin: 11/04/18 21:50 Dose: 200 mls/hr Infusion: 11/04/18 17:45 Dose: 200 mls/hr Admin: 11/04/18 17:15 Dose: 200 mls/hr Infusion: 11/04/18 13:10 Dose: 0 mls/hr Admin: 11/04/18 11:31 Dose: 200 mls/hr Infusion: 11/04/18 04:48 Dose: 0 mls/hr Admin: 11/04/18 03:24 Dose: 200 mls/hr Infusion: 11/03/18 22:39 Dose: 0 mls/hr Admin: 11/03/18 21:50 Dose: 200 mls/hr Ibuprofen (Advil) 600 mg PO Q6HR PRN PRN Reason: As Needed for Fever/Mild Pain Last Admin: 11/03/18 21:43 Dose: 600 mg Lorazepam (Ativan) 1 mg PO TID [facility] Last Admin: 11/05/18 14:36 Dose: Not Given Admin: 11/05/18 13:26 Dose: Not Given Admin: 11/04/18 21:11 Dose: 1 mg Admin: 11/04/18 14:16 Dose: Not Given Admin: 11/04/18 08:46 Dose: 1 mg Admin: 11/03/18 21:49 Dose: 1 mg Methadone HCl (Methadone) 95 mg PO DAILY [facility] Last Admin: 11/05/18 08:01 Dose: 95 mg Admin: 11/04/18 13:30 Dose: 95 mg Olanzapine (Zyprexa) 20 mg PO DAILY [facility] Last Admin: 11/05/18 08:00 Dose: 20 mg Admin: 11/04/18 08:45 Dose: 20 mg Prednisone (Deltasone) 20 mg PO DAILY [facility] Last Admin: 11/05/18 13:25 Dose: 20 mg Admin: 11/04/18 08:45 Dose: Not Given Fluticasone/Salmeterol (Advair 500/50 Diskus) 1 puff INH BID [facility] Last Admin: 11/05/18 08:03 Dose: Not Given Admin: 11/04/18 20:49 Dose: Not Given Admin: 11/04/18 08:48 Dose: Not Given Admin: 11/03/18 20:20 Dose: Not Given Sodium Chloride (Normal Saline 0.9% Flush) 10 ml IV BID [facility] Last Admin: 11/05/18 09:55 Dose: 10 ml Admin: 11/04/18 21:11 Dose: 10 ml Admin: 11/04/18 08:48 Dose: 10 ml Sodium Chloride (Normal Saline 0.9% Flush) 10 ml IV PRN PRN PRN Reason: Flush Last Admin: 11/05/18 04:23 Dose: 10 ml Discontinued Medications Fentanyl (Sublimaze) 50 mcg IV Q5MIN PRN PRN Reason: Pain, Moderate (4-6) Last Admin: 11/03/18 17:20 Dose: 50 mcg Admin: 11/03/18 17:09 Dose: 50 mcg Hydromorphone HCl (Dilaudid) 0.5 mg IV Q5MIN PRN PRN Reason: Pain, Moderate (4-6) Piperacillin/Tazobactam/Dextrose (Zosyn) 2.25 gm in 50 mls @ 100 mls/hr IV NOW ONE Stop: 11/03/18 16:49 Last Infusion: 11/03/18 16:06 Dose: 0 mls/hr Admin: 11/03/18 15:57 Dose: 100 mls/hr Lactated Ringer's (Lactated Ringers) 1,000 mls @ 42 mls/hr IV CONT PACHECO Last Infusion: 11/03/18 17:45 Dose: 0 mls/hr Admin: 11/03/18 17:18 Dose: 200 mls/hr Infusion: 11/03/18 17:17 Dose: 200 mls/hr Admin: 11/03/18 15:55 Dose: 42 mls/hr Metoclopramide HCl (Reglan) 10 mg IV NOW PRN PRN Reason: Nausea And Vomiting Ondansetron HCl (Zofran) 4 mg IV NOW PRN PRN Reason: Nausea And Vomiting Ondansetron HCl (Zofran) 4 mg IV Q8HR PRN PRN Reason: Nausea And Vomiting Oxycodone/Acetaminophen (Percocet 5/325) 2 tab PO NOW ONE Stop: 11/03/18 16:59 Last Admin: 11/03/18 17:07 Dose: 2 tab Vital Signs - 8 hr 11/05/18 14:06 11/05/18 16:25 Temperature 97.9 F 97.8 F Pulse Rate 94 H 87 Respiratory Rate 18 21 Blood Pressure 124/62 109/60 Pulse Oximetry 96 98 MDM - Skin/Abscess/Foreign Bdy <Ana Dominguez PA-C - Last Filed: 11/03/18 21:33> Lab Data Result diagrams: 11/05/18 08:38 11/04/18 06:25 Lab Results 11/03/18 11/03/18 11/03/18 Range/Units 14:16 14:16 14:16 WBC 8.4 (4.5-11.0) X10^3/uL RBC 3.83 L (4.5-5.9) X10^6/uL Hgb 9.5 L (13.5-17.5) g/dL Hct 30.4 L (41-53) % MCV 79.3 L (80-100) fL MCH 24.8 L (26-34) PG MCHC 31.3 (30-36) % RDW 16.3 H (11.6-14.8) % Plt Count 239 (150-400) X10^3/uL Neut % (Auto) 74.5 (50-75) % Lymph % (Auto) 15.7 L (25-40) % [place] % (Auto) 9.3 (3-14) % Eos % (Auto) 0.3 L (2-4) % Baso % (Auto) 0.2 (0-2) % Neut # (Auto) 6300 (4923-9778) /uL Lymph # (Auto) 1300 (2868-0640) /uL [place] # (Auto) 800 (0-900) /uL Eos # (Auto) 0 (0-450) /uL Baso # (Auto) 0 (0-100) /uL Sodium 137 (137-145) mmol/L Potassium 3.5 (3.4-5.1) mmol/L Chloride 99 (98-107) mmol/L Carbon Dioxide 32 (22-32) mmol/L BUN 8 L (9-20) mg/dL Creatinine 0.60 L (0.66-1.25) mg/dL Estimated GFR > 60.0 (>60) mL/min BUN/Creatinine Ratio 13.3 (6-22) Glucose 88 (70-100) mg/dL Lactate 1.5 (0.7-2.1) mmol/L Calcium 7.7 L (8.4-10.2) mg/dL Total Bilirubin (0.2-1.3) mg/dL AST (17-59) IU/L ALT (21-72) IU/L Alkaline Phosphatase (38-126) U/L Total Protein (6.3-8.2) g/dL Albumin (3.5-5.0) g/dL Globulin (1.7-4.1) g/dL Albumin/Globulin Ratio (1.0-2.8) 11/04/18 11/04/18 11/05/18 Range/Units 06:25 06:25 08:38 WBC 4.8 3.9 L (4.5-11.0) X10^3/uL RBC 3.32 L 3.28 L (4.5-5.9) X10^6/uL Hgb 8.4 L 8.3 L (13.5-17.5) g/dL Hct 25.7 L 26.8 L (41-53) % MCV 77.6 L 81.6 D (80-100) fL MCH 25.3 L 25.3 L (26-34) PG MCHC 32.6 31.0 (30-36) % RDW 16.4 H 16.3 H (11.6-14.8) % Plt Count 188 266 (150-400) X10^3/uL Neut % (Auto) 58.8 71.6 (50-75) % Lymph % (Auto) 28.6 18.6 L (25-40) % [place] % (Auto) 11.5 9.2 (3-14) % Eos % (Auto) 1.0 L 0.4 L (2-4) % Baso % (Auto) 0.1 0.2 (0-2) % Neut # (Auto) 2800 2800 (5532-2568) /uL Lymph # (Auto) 1400 700 L (1564-3976) /uL [place] # (Auto) 500 400 (0-900) /uL Eos # (Auto) 0 0 (0-450) /uL Baso # (Auto) 0 0 (0-100) /uL Sodium 137 (137-145) mmol/L Potassium 3.7 (3.4-5.1) mmol/L Chloride 99 (98-107) mmol/L Carbon Dioxide 32 (22-32) mmol/L BUN 8 L (9-20) mg/dL Creatinine 0.60 L (0.66-1.25) mg/dL Estimated GFR > 60.0 (>60) mL/min BUN/Creatinine Ratio 13.3 (6-22) Glucose 98 (70-100) mg/dL Lactate (0.7-2.1) mmol/L Calcium 7.7 L (8.4-10.2) mg/dL Total Bilirubin 0.7 (0.2-1.3) mg/dL AST 10 L (17-59) IU/L ALT 21 (21-72) IU/L Alkaline Phosphatase 61 (38-126) U/L Total Protein 5.9 L (6.3-8.2) g/dL Albumin 2.5 L (3.5-5.0) g/dL Globulin 3.4 (1.7-4.1) g/dL Albumin/Globulin Ratio 0.7 L (1.0-2.8) <Parish Arizmendi DO - Last Filed: 11/05/18 19:33> Lab Data Lab Results 11/03/18 11/03/18 11/03/18 Range/Units 14:16 14:16 14:16 WBC 8.4 (4.5-11.0) X10^3/uL RBC 3.83 L (4.5-5.9) X10^6/uL Hgb 9.5 L (13.5-17.5) g/dL Hct 30.4 L (41-53) % MCV 79.3 L (80-100) fL MCH 24.8 L (26-34) PG MCHC 31.3 (30-36) % RDW 16.3 H (11.6-14.8) % Plt Count 239 (150-400) X10^3/uL Neut % (Auto) 74.5 (50-75) % Lymph % (Auto) 15.7 L (25-40) % [place] % (Auto) 9.3 (3-14) % Eos % (Auto) 0.3 L (2-4) % Baso % (Auto) 0.2 (0-2) % Neut # (Auto) 6300 (5579-2249) /uL Lymph # (Auto) 1300 (6460-8423) /uL [place] # (Auto) 800 (0-900) /uL Eos # (Auto) 0 (0-450) /uL Baso # (Auto) 0 (0-100) /uL Sodium 137 (137-145) mmol/L Potassium 3.5 (3.4-5.1) mmol/L Chloride 99 (98-107) mmol/L Carbon Dioxide 32 (22-32) mmol/L BUN 8 L (9-20) mg/dL Creatinine 0.60 L (0.66-1.25) mg/dL Estimated GFR > 60.0 (>60) mL/min BUN/Creatinine Ratio 13.3 (6-22) Glucose 88 (70-100) mg/dL Lactate 1.5 (0.7-2.1) mmol/L Calcium 7.7 L (8.4-10.2) mg/dL Total Bilirubin (0.2-1.3) mg/dL AST (17-59) IU/L ALT (21-72) IU/L Alkaline Phosphatase (38-126) U/L Total Protein (6.3-8.2) g/dL Albumin (3.5-5.0) g/dL Globulin (1.7-4.1) g/dL Albumin/Globulin Ratio (1.0-2.8) 11/04/18 11/04/18 11/05/18 Range/Units 06:25 06:25 08:38 WBC 4.8 3.9 L (4.5-11.0) X10^3/uL RBC 3.32 L 3.28 L (4.5-5.9) X10^6/uL Hgb 8.4 L 8.3 L (13.5-17.5) g/dL Hct 25.7 L 26.8 L (41-53) % MCV 77.6 L 81.6 D (80-100) fL MCH 25.3 L 25.3 L (26-34) PG MCHC 32.6 31.0 (30-36) % RDW 16.4 H 16.3 H (11.6-14.8) % Plt Count 188 266 (150-400) X10^3/uL Neut % (Auto) 58.8 71.6 (50-75) % Lymph % (Auto) 28.6 18.6 L (25-40) % [place] % (Auto) 11.5 9.2 (3-14) % Eos % (Auto) 1.0 L 0.4 L (2-4) % Baso % (Auto) 0.1 0.2 (0-2) % Neut # (Auto) 2800 2800 (3782-5690) /uL Lymph # (Auto) 1400 700 L (9357-0609) /uL [place] # (Auto) 500 400 (0-900) /uL Eos # (Auto) 0 0 (0-450) /uL Baso # (Auto) 0 0 (0-100) /uL Sodium 137 (137-145) mmol/L Potassium 3.7 (3.4-5.1) mmol/L Chloride 99 (98-107) mmol/L Carbon Dioxide 32 (22-32) mmol/L BUN 8 L (9-20) mg/dL Creatinine 0.60 L (0.66-1.25) mg/dL Estimated GFR > 60.0 (>60) mL/min BUN/Creatinine Ratio 13.3 (6-22) Glucose 98 (70-100) mg/dL Lactate (0.7-2.1) mmol/L Calcium 7.7 L (8.4-10.2) mg/dL Total Bilirubin 0.7 (0.2-1.3) mg/dL AST 10 L (17-59) IU/L ALT 21 (21-72) IU/L Alkaline Phosphatase 61 (38-126) U/L Total Protein 5.9 L (6.3-8.2) g/dL Albumin 2.5 L (3.5-5.0) g/dL Globulin 3.4 (1.7-4.1) g/dL Albumin/Globulin Ratio 0.7 L (1.0-2.8) Discharge Plan Departure Patient Disposition: Admitted As Inpatient Clinical Impression: Decubitus ulcer of buttock, stage 2 Qualifiers: Laterality: unspecified laterality Qualified Code(s): L89.302 - Pressure ulcer of unspecified buttock, stage 2 Discharge Date/Time: 11/03/18 15:30 Interventions: ED Discharge Assessment Last Done: 11/03/18 16:02 Admit Date/Time: 11/03/18 15:37 Admit Provider: Niurka Cobos <Parish Arizmendi DO - Last Filed: 11/05/18 19:33> Cosign ED Attending Edi Attestation: I was immediately available in the department for consultation. Documentation has been reviewed. I agree with assessment and plan.
[2018-11-03 14:23] LABS: Add Manual Diff / Slide Review NO; Basophils Absolute Auto 0 /uL (0-100); Basophils Percent Auto 0.2 % (0-2); Eosinophils Absolute Auto 0 /uL (0-450); Eosinophils Percent Auto 0.3 % (2-4); Hematocrit 30.4 % (41-53); Hemoglobin 9.5 g/dL (13.5-17.5); Lymphocytes Absolute Auto 1300 /uL (1100-4500); Lymphocytes Percent Auto 15.7 % (25-40); Mean Corpuscular HGB Conc 31.3 % (30-36); Mean Corpuscular Hemoglobin 24.8 PG (26-34); Mean Corpuscular Volume 79.3 fL (80-100); Monocytes Absolute Auto 800 /uL (0-900); Monocytes Percent Auto 9.3 % (3-14); Neutrophils Absolute Auto 6300 /uL (1500-7000); Neutrophils Percent Auto 74.5 % (50-75); Platelet Count 239 X10^3/uL (150-400); Red Blood Cell Count 3.83 X10^6/uL (4.5-5.9); Red Cell Distribution Width 16.3 % (11.6-14.8); White Blood Cell Count 8.4 X10^3/uL (4.5-11.0)
[2018-11-03 14:33] LABS: Lactate (Lactic Acid) 1.5 mmol/L (0.7-2.1)
[2018-11-03 14:34] LABS: BUN Creatinine Ratio 13.3 (6-22); Blood Urea Nitrogen 8 mg/dL (9-20); Calcium 7.7 mg/dL (8.4-10.2); Carbon Dioxide 32 mmol/L (22-32); Chloride 99 mmol/L (98-107); Estimated Glomerular Filt Rate > 60.0 mL/min (>60); Glucose 88 mg/dL (70-100); HEMOLYSIS < 15 (0-50); Potassium 3.5 mmol/L (3.4-5.1); Sodium 137 mmol/L (137-145)
[2018-11-03] MEDS: LACTATED RINGERS 1,000 ML 42 ML IV (15:55)
[2018-11-03] MEDS: PIPERACILLIN-TAZO 2.25 GM/50 ML FROZ.PIGGY IV (15:57)
--- NOTE | 2018-11-03 16:00 | PC.NURSE ---
dr Pratt in to see pt. pt has wounds on both posterior thighs. and scrotum. pt has red drainage from all areas. has decided to take pt to surgery. called pt mom per his request to inform her he will be having surgery here this evening.
--- NOTE | 2018-11-03 16:08 | SUR.HOLD ---
Direct admit to OR from ER. Prior to going into operating room consents signed and also seen by Dr. Beasley. PIV also started as none in situ from ER. No time to do full assessment, ER assessment and VS de facto preop information. In addition however significant body odor noted and multiple lesions noted to legs. Anxiety levels mild, but with warning of previous history of such, calm approach taken in all interactions- with no untoward responses seen. He was isolated from other patients in room 5 for about 20 minutes due to concern about MRSA or contact isolation needs.
--- NOTE | 2018-11-03 16:13 | SUR.OPER ---
Lateral on padded STRETCHER, head on pillow, bottom leg bent with gel pad under knee to foot, upper leg straight and supported with pillows. Upper arm supported by pillows and secured over bottom arm to padded arm board. SIDERAILS UP ON STRETCHER
--- NOTE | 2018-11-03 16:16 | SUR.HOLD ---
Note: Clothes and inhaler held in OPD while patient in the OR.
--- NOTE | 2018-11-03 17:04 | SUR.PHASEI ---
Somewhat of a needy affect. C/O being cold and asking for blanket and at the same time asking for a popcicle. Given Percocett 2 tabs for pain as opposed to IV analgesic due to BP lower than desired for safe administration.
[2018-11-03] MEDS: OXYCODONE/ACETAMINOPHEN 5/325 TABLET 2 TAB PO (17:07)
[2018-11-03] MEDS: fentaNYL 100 MCG/2 ML INJ 50 MCG IV ×2 (17:09→17:20)
[2018-11-03] MEDS: LACTATED RINGERS 1,000 ML 200 ML IV (17:18)
--- NOTE | 2018-11-03 17:28 | P.CONS_ITS ---
History of Present Illness Date Patient Seen: 11/03/18 Time Patient Seen: 17:21 Chief complaint: Sores on legs Reason for consult: Open wounds of bilateral lower extremities Requesting provider: Ana Dominguez Narrative: Babatunde is a very unfortunate 38-year-old gentleman who is well-known to our emergency room staff. He suffers from massive obesity as well as restrictive lung disease, depression, anxiety, and chronic pain. He has develop ed wounds on his lower extremities secondary to friction and venous stasis disease. He has been seen by his primary doctor and [facility]. They have been trying to care for him but he is somewhat noncompliant. He came back to the emergency room this evening with complaint of pain and was evaluated by the staff there. His wounds on his lower extremities were noted to be significantly changed. The wound care staff evaluated him there and recommended that he be debrided in the operating room before further dressing changes were pursued. I have been consulted for that debridement. Lou reports that he hurts all over. He says it is difficult for him to lie on his right side but he could turn all the way over on his belly. When he tries to lay on his side, his hips are extremely painful. [facility] Medical History Anxiety (Acute) Asthma (Acute) Chronic skin ulcer (Chronic) Methadone use disorder, mild, in controlled environment (Chronic) Morbid obesity (Chronic) Surgical History H/O vertebral fracture repair (Chronic) History of hip surgery (Chronic) Family History Mother Diabetes mellitus Father No problems noted. Social History household members: significant other Smoking Status: Former smoker Family History Mother Diabetes mellitus Father No problems noted. Social History household members: significant other Smoking Status: Former smoker Meds Home Medications Medication Instructions Recorded Confirmed Type Advair Diskus 1 puff INH BID #2 inh 04/28/17 11/03/18 Rx methadone 95 mg PO DAILY #0 05/07/17 11/03/18 History albuterol sulfate 2 puff INHALATION Q4-6H PRN #18 07/11/18 11/03/18 Rx gram albuterol sulfate 3 ml INH Q4HP PRN #360 ml 07/27/18 11/03/18 Rx prednisone 10 mg PO BID 08/05/18 11/03/18 History lorazepam [Ativan] 1 mg PO BID-TID PRN #10 tab 08/26/18 11/03/18 Rx olanzapine 20 mg PO DAILY #10 tab 08/26/18 11/03/18 Rx duloxetine [Cymbalta] 30 mg PO DAILY #90 cap 09/15/18 11/03/18 Rx gabapentin [Neurontin] 300 mg PO TID #180 cap 09/15/18 11/03/18 Rx hydrocodone-acetaminophen [[place]] 1 tab PO Q4-6H PRN #20 tab 09/15/18 11/03/18 Rx Allergies Allergy/AdvReac Type Severity Reaction Status Date / Time NSAIDS (Non-Steroidal Allergy Unknown ASTHMA Verified 11/03/18 13:07 Anti-Inflamma FLARE UPS [NSAIDS (NON-STEROIDAL ANTI-INFLAMMA] ibuprofen AdvReac Mild nausea, GI Verified 11/03/18 13:07 upset Review of Systems Review of Systems Unfortunate gentleman complaining of anxiousness and pain. He is able to roll all the way over on his belly for us to see his back side but says it is quite painful. He denies any fever at home. He can't tell me for sure that his wounds on his legs are what is causing his pain. He thinks that maybe his hip. Exam Vital Signs (past 8 hours): - 11/03/18 13:00 11/03/18 16:48 11/03/18 16:53 Temperature 98.3 F 98.0 F Pulse Rate 102 H 88 90 Respiratory Rate 22 24 18 Blood Pressure 118/60 87/38 L 86/39 L Pulse Oximetry 91 99 100 11/03/18 16:57 11/03/18 17:02 11/03/18 17:07 Temperature Pulse Rate 86 92 H 88 Respiratory Rate 14 18 18 Blood Pressure 93/39 L 95/37 L 97/34 L Pulse Oximetry 100 96 92 11/03/18 17:13 Temperature Pulse Rate 85 Respiratory Rate 18 Blood Pressure 90/36 L Pulse Oximetry 100 Oxygen Delivery Method Nasal Cannula Oxygen Flow Rate 2 Narrative Exam Narrative: Morbidly obese but pleasant gentleman. Lungs: Clear bilaterally Heart: Regular rate and rhythm Extremities: Multiple open wounds involving the perineum and scrotal sac as well as the posterior surfaces of both lower extremities. The wounds primarily affect the upper legs more than the lower. Peeling of skin over the entire surface of his buttocks and upper thighs consistent with stage I or stage 0 pressure ulceration of this entire area. The most distal wound on the right and left upper thigh posteriorly both have a significant amount of necrotic tissue covering the surface. Massive lymphedema of bilateral lower extremities with nonpalpable pulses Objective Labs Result Diagrams: 11/03/18 14:16 11/03/18 14:16 Labs: Laboratory Results - last 24 hr 11/03/18 11/03/18 11/03/18 14:16 14:16 14:16 WBC 8.4 RBC 3.83 L Hgb 9.5 L Hct 30.4 L MCV 79.3 L MCH 24.8 L MCHC 31.3 RDW 16.3 H Plt Count 239 Neut % (Auto) 74.5 Lymph % (Auto) 15.7 L [place]y % (Auto) 9.3 Eos % (Auto) 0.3 L Baso % (Auto) 0.2 Neut # (Auto) 6300 Lymph # (Auto) 1300 [place] # (Auto) 800 Eos # (Auto) 0 Baso # (Auto) 0 Sodium 137 Potassium 3.5 Chloride 99 Carbon Dioxide 32 BUN 8 L Creatinine 0.60 L Estimated GFR > 60.0 BUN/Creatinine Ratio 13.3 Glucose 88 Lactate 1.5 Calcium 7.7 L Assessment & Plan Assessment & Plan narrative: Unfortunate gentleman with chronic stasis wounds that have developed necrotic debris and need to be debrided in the operating room due to the patient's intolerance to the procedure and the difficulty in positioning. We have discussed the risks and benefits of this procedure with the patient. He has expressed a desire to completed tonight. Once his wounds are debrided, wound care can take back over the care of these chronic issues.
--- NOTE | 2018-11-03 17:28 | PM.OP.1 ---
Operative Date/Time/Diagnoses Date of procedure: 11/03/18 Time of procedure: 17:28 Pre-op diagnosis: Necrotic open wounds of bilateral lower extremities Post-op diagnosis: same Procedure & Clinicians Procedure: Excisional debridement of bilateral lower extremity wounds. Same procedure as scheduled: Yes Indications: Chronic wounds with necrosis. Surgeon: Yuliet Pratt Anesthesia Type: General (Dr. Beasley) Operative Notes Findings: 1. Approximately 15 x 21 cm open wound of the left posterior thigh. Superficial necrosis only. Tissue culture sent. 2. At least 20 x 20 cm open wound of the right posterior thigh with superficial and deep necrosis of the more inferior portion. Closure Type: not applicable Specimen(s): other (Tissue for culture) Estimated Blood Loss (mL): 20 Procedure in detail: After obtaining informed consent, the patient brought to the operating room. He moved himself to the right lateral decubitus position and then underwent successful induction of general endotracheal anesthesia. Bilateral lower extremities were prepped and draped in the standard surgical fashion along with the perineum. A time-out was held per [facility]OO[facility] protocol. We began with excisional debridement of the wound on the left leg 1st. I attempted to simply scrape off the necrotic tissue using a 10 blade scalpel but when this was ineffective, using rat-tooth forceps and sharp 10 blade, the necrotic tissue was skinned off the surface of the chronic ulcer. A portion was sent for tissue culture. When the entire wound bed was clean, pressure was held with a dry gauze to obtain hemostasis. An identical procedure was completed on the ulcer of the right upper leg. The right leg ulcer was slightly larger with slightly more necrosis than the left. Both ulcers were dressed with dry dressings. Dry dressings were tucked in between the patient's intertriginous zones to help keep these areas dry. All sponge, needle, and instrument counts were correct at the conclusion of the case. Patient was allowed to wake from anesthesia without significant difficulty and taken to the postanesthesia care unit in good condition. Complications: none Condition: stable Disposition: PACU Plan for aftercare: 1. Admit to the hospitalist service-Dr. Cobos 2. Wound care service will take over management of these chronic wounds.
--- NOTE | 2018-11-03 17:45 | SUR.PHASEI ---
PIV saline locked for transfer. Altho LR rate at 200/hr- Dr Beasley gave okayto open fluids beyond that for BP needs.
--- NOTE | 2018-11-03 19:02 | P.HP_ITS ---
History of Present Illness Date Patient Seen: 11/03/18 Chief complaint: Sores on legs Narrative: Patient is a 38-year-old male with morbid obesity well known to the hospitalist team who was in his usual state of health until yesterday. Patient has chronic ulcerations on his perineum sacrum and scrotal area. He has known stage II decubitus ulcer. He has been in the hospital multiple times for treatment of the ulcerations. Patient was to follow up with wound care tomorrow. States yesterday he got up and developed bleeding from the ulcers. He presented to the emergency department for evaluation. It was noted that he had had fever and significant breakdown of his ulcers. He was seen in the emergency department by the wound care clinic. They recommended the patient be taken to the operating room for definitive debridement. Was seen by Dr. Pratt who took him to the operating room for debridement of the necrotic ulceration. The patient has been seen postoperatively. He complains of pain. He denies any shortness of breath. He reports fever yesterday but none today. He has no nausea vomiting or diarrhea. He denies any dysuria or hematuria. Patient does have chronic pruritus. He is scratching at his wounds at this time. He has significant lower extremity edema. He is admitted to the hospital at this time for definitive treatment. Patient History Medical History Anxiety (Acute) Asthma (Acute) Chronic skin ulcer (Chronic) Methadone use disorder, mild, in controlled environment (Chronic) Morbid obesity (Chronic) Surgical History H/O vertebral fracture repair (Chronic) History of hip surgery (Chronic) Family History Mother Diabetes mellitus Father No problems noted. Social History household members: significant other Smoking Status: Former smoker Family & Social History Family History Mother Diabetes mellitus Father No problems noted. Social History: household members significant other Safety & Behavioral: Feels Safe in Current Yes Environment Been Physically Hurt or No Threatened By a Person Tobacco & Substance use: Smoking Status Former smoker alcohol intake frequency 0-2 drinks per day Substance Use Type marijuana Meds Home Medications Medication Instructions Recorded Confirmed Type Advair Diskus 1 puff INH BID #2 inh 04/28/17 11/03/18 Rx methadone 95 mg PO DAILY #0 05/07/17 11/03/18 History albuterol sulfate 2 puff INHALATION Q4-6H PRN #18 07/11/18 11/03/18 Rx gram albuterol sulfate 3 ml INH Q4HP PRN #360 ml 07/27/18 11/03/18 Rx prednisone 10 mg PO BID 08/05/18 11/03/18 History lorazepam [Ativan] 1 mg PO BID-TID PRN #10 tab 08/26/18 11/03/18 Rx olanzapine 20 mg PO DAILY #10 tab 08/26/18 11/03/18 Rx duloxetine [Cymbalta] 30 mg PO DAILY #90 cap 09/15/18 11/03/18 Rx gabapentin [Neurontin] 300 mg PO TID #180 cap 09/15/18 11/03/18 Rx hydrocodone-acetaminophen [[place]] 1 tab PO Q4-6H PRN #20 tab 09/15/18 11/03/18 Rx Allergies Allergy/AdvReac Type Severity Reaction Status Date / Time NSAIDS (Non-Steroidal Allergy Unknown ASTHMA Verified 11/03/18 13:07 Anti-Inflamma FLARE UPS [NSAIDS (NON-STEROIDAL ANTI-INFLAMMA] ibuprofen AdvReac Mild nausea, GI Verified 11/03/18 13:07 upset Review of Systems Review of Systems All systems reviewed & are unremarkable except as noted in HPI and below Exam Vital Signs (past 8 hours): - 11/03/18 13:00 11/03/18 16:48 11/03/18 16:53 Temperature 98.3 F 98.0 F Pulse Rate 102 H 88 90 Respiratory Rate 22 24 18 Blood Pressure 118/60 87/38 L 86/39 L Pulse Oximetry 91 99 100 11/03/18 16:57 11/03/18 17:02 11/03/18 17:07 Temperature Pulse Rate 86 92 H 88 Respiratory Rate 14 18 18 Blood Pressure 93/39 L 95/37 L 97/34 L Pulse Oximetry 100 96 92 11/03/18 17:13 11/03/18 17:17 11/03/18 17:22 Temperature 98.9 F Pulse Rate 85 84 84 Respiratory Rate 18 18 18 Blood Pressure 90/36 L 102/39 L 93/38 L Pulse Oximetry 100 100 100 11/03/18 17:27 11/03/18 17:32 11/03/18 17:42 Temperature 98.6 F 98.3 F Pulse Rate 85 18 L 84 Respiratory Rate 16 84 H 18 Blood Pressure 92/34 L 93/40 L 104/39 L Pulse Oximetry 100 99 99 11/03/18 17:45 11/03/18 18:25 11/03/18 18:45 Temperature 98.0 F 99.1 F 98.8 F Pulse Rate 88 85 90 Respiratory Rate 17 18 18 Blood Pressure 95/45 L 111/48 L 101/49 L Pulse Oximetry 94 96 98 Oxygen Delivery Method Nasal Cannula Oxygen Flow Rate 2 Narrative Exam Narrative: Morbidly obese male resting comfortably who reports he is in pain but does not appear to be in distress HEENT: Normocephalic atraumatic, extraocular muscles are intact, oropharynx is clear, neck is supple Lungs: Decreased breath sounds with scattered rhonchi bilaterally Cardiac exam: Regular rate and rhythm normal S1 and S2 with a 2/6 systolic ejection murmur Abdomen: Obese soft and nontender Perineal area, intertriginous area, gauze and dressings are in place there are areas of skin breakdown in the perineum. Wounds are not checked at this time Lower extremity 2+ pitting edema bilateral Neuro exam : Cranial nerves 2-12 are intact, strength is symmetric and equal, sensation grossly intact, gait is not assessed Skin: Multiple areas of breakdown difficult to identify is the patient is difficult to move. Wounds are dressed at this time. Skin is warm and dry Objective Labs Result Diagrams: 11/03/18 14:16 11/03/18 14:16 Labs: Laboratory Results - last 24 hr 11/03/18 11/03/18 11/03/18 14:16 14:16 14:16 WBC 8.4 RBC 3.83 L Hgb 9.5 L Hct 30.4 L MCV 79.3 L MCH 24.8 L MCHC 31.3 RDW 16.3 H Plt Count 239 Neut % (Auto) 74.5 Lymph % (Auto) 15.7 L [place] % (Auto) 9.3 Eos % (Auto) 0.3 L Baso % (Auto) 0.2 Neut # (Auto) 6300 Lymph # (Auto) 1300 [place] # (Auto) 800 Eos # (Auto) 0 Baso # (Auto) 0 Sodium 137 Potassium 3.5 Chloride 99 Carbon Dioxide 32 BUN 8 L Creatinine 0.60 L Estimated GFR > 60.0 BUN/Creatinine Ratio 13.3 Glucose 88 Lactate 1.5 Calcium 7.7 L Assessment & Plan Assessment & Plan narrative: 38-year-old male admitted to the hospital status post debridement of multiple sacral decubitus ulcers, he had debridement and I&D of the perineum sacral areas. 2. Morbid obesity 3. Asthma, chronic 4. General lysed anxiety, chronic 5. Chronic pain 6. Hypothyroid 7. Anemia Plan given the patient's fever on admission will continue antibiotics. He can transition to oral antibiotics for total of 7 days starting tomorrow. Wound care per Dr. kumar on and the wound care clinic. Will continue his albuterol and Advair inhalers. Will continue his usual anti anxiety medications his methadone will be held at this time as he is getting IV Dilaudid. Once the patient transitions from Dilaudid will resume methadone. Patient has been placed on DVT prophylaxis. Anticipate he will be able to discharge home once wound care arrangements can be made.
[2018-11-03] MEDS: ALBUTEROL 2.5 MG/3 ML NEB (ADULT) INH (20:20)
[2018-11-03] MEDS: IBUPROFEN 600 MG TABLET PO (21:43)
[2018-11-03] MEDS: ENOXAPARIN 40 MG/0.4 ML SYRINGE SUBCUT (21:43)
[2018-11-03] MEDS: DOCUSATE 100 MG CAPSULE PO (21:44)
[2018-11-03] MEDS: GABAPENTIN 300 MG CAPSULE PO (21:44)
[2018-11-03] MEDS: LORazepam 1 MG TABLET PO (21:49)
[2018-11-03] MEDS: PIPERACILLIN-TAZO 4.5 GM/100 ML FROZ.PIGGY IV (21:50)
--- NOTE | 2018-11-03 22:27 | PC.NURSE ---
wounds/shift overview pt on isolation for gram + cocci. dressings (ABD pads) changed to posterior thighs saturated with sero-sang fluid. pt unable to turn/roll in bed r/t body habitus and bed will not support weight load with turning. challenging for pt to urinate as anatomy is difficult to navigate r/t size. sarah- care post void with pad placed under pt's pelvis. pt states is unable to bathe himself at home and requires a FWW to ambulate.
[2018-11-04] VITALS (11 sets, daily range): BP systolic 104–116; BP diastolic 45–63; PULSE 74–94; RESP 16–24; TEMP 36.3–36.7; O2SAT 90–100
--- NOTE | 2018-11-04 02:13 | PC.NURSE ---
Pt is hypotensive, afebrile, O2 sat = 87-92 % on 1L NC. S1, S2. Due to scrotal swelling and perianal edema penis is retracted and pt is generally urinating on himself in bed, although urinal wrapped in towel and placed in general area has been tried. Pt declined BSC/BR due to impaired ambulatory status. His wounds appear larger and deeper then previous admissions. He rates his pain 9/10 but was able to sleep. Tolerating ABOs well. Discussed need for Glover catheter, nutritional and wound consults with patient, as well as risk for sepsis. Unclear if patient is following up with wound care treatment as arranged on last admission.
[2018-11-04] MEDS: PIPERACILLIN-TAZO 4.5 GM/100 ML FROZ.PIGGY IV ×4 (03:24→21:50)
[2018-11-04] MEDS: ACETAMINOPHEN 325 MG TABLET 650 MG PO (06:09)
--- NOTE | 2018-11-04 06:10 | PC.NURSE ---
Pt states Ibuprofen hurts his stomach. He would like an opiate pain med.
[2018-11-04 06:48] LABS: Add Manual Diff / Slide Review NO; Basophils Absolute Auto 0 /uL (0-100); Basophils Percent Auto 0.1 % (0-2); Eosinophils Absolute Auto 0 /uL (0-450); Hematocrit 25.7 % (41-53); Hemoglobin 8.4 g/dL (13.5-17.5); Lymphocytes Absolute Auto 1400 /uL (1100-4500); Lymphocytes Percent Auto 28.6 % (25-40); Mean Corpuscular HGB Conc 32.6 % (30-36); Mean Corpuscular Hemoglobin 25.3 PG (26-34); Mean Corpuscular Volume 77.6 fL (80-100); Monocytes Absolute Auto 500 /uL (0-900); Monocytes Percent Auto 11.5 % (3-14); Neutrophils Absolute Auto 2800 /uL (1500-7000); Neutrophils Percent Auto 58.8 % (50-75); Platelet Count 188 X10^3/uL (150-400); Red Blood Cell Count 3.32 X10^6/uL (4.5-5.9); Red Cell Distribution Width 16.4 % (11.6-14.8); White Blood Cell Count 4.8 X10^3/uL (4.5-11.0)
[2018-11-04 06:56] LABS: Alanine Aminotransferase 21 IU/L (21-72); Albumin 2.5 g/dL (3.5-5.0); Albumin Globulin Ratio 0.7 (1.0-2.8); Alkaline Phosphatase 61 U/L (38-126); Aspartate Aminotransferase 10 IU/L (17-59); BUN Creatinine Ratio 13.3 (6-22); Bilirubin Total 0.7 mg/dL (0.2-1.3); Blood Urea Nitrogen 8 mg/dL (9-20); Calcium 7.7 mg/dL (8.4-10.2); Carbon Dioxide 32 mmol/L (22-32); Chloride 99 mmol/L (98-107); Estimated Glomerular Filt Rate > 60.0 mL/min (>60); Globulin 3.4 g/dL (1.7-4.1); Glucose 98 mg/dL (70-100); HEMOLYSIS < 15 (0-50); Potassium 3.7 mmol/L (3.4-5.1); Sodium 137 mmol/L (137-145); Total Protein 5.9 g/dL (6.3-8.2)
--- NOTE | 2018-11-04 08:34 | PC.NURSE ---
Addendum entered by Keely Okeefe R.N. 11/04/18 15:36: Kiersten called from wound care center. She and Dr. Huff will either provide supplies for drsg change or change the order. reported same to willy White rn. Original Note: Addendum entered by Keely Okeefe R.N. 11/04/18 14:49: waffle boot to rle. called materials to bring up another boot for the other leg. called to wound care center x2 to ask for meta- honey/alginate drsg. materials dose not have that drsg. wound care center will obtain supplies, enough to cover for the weekend and call this rn station, or deliver them to us. patient has been intermitt teary when awake. took nap after ativan this am, and again after methadone. 1-2p assist to bsc to void. bariatric bed arrived and patient is now in that bed. Original Note: PATIENT TEARFUL. ASKS FOR METHADONE. WOUND CARE TEAM IN TO SEE PATIENT. (DR. HUFF AND KIERSTEN JAIN.) THEY TOOK PHOTOS OF ALL WOUNDS. PATIENT 2PA UP TO COMMODE W/ WALKER. SLOW TO MOBILIZE. VOIDED. LINENS ALL CHANGED. LEFT HEEL FLOATED ON PILLOW R/T STABLE ESCHAR TO HEEL.
[2018-11-04] MEDS: GABAPENTIN 300 MG CAPSULE PO ×2 (08:45→21:11)
[2018-11-04] MEDS: DULOXETINE 30 MG CAPSULE PO (08:45)
[2018-11-04] MEDS: OLANZapine 2.5 MG TABLET 20 MG PO (08:45)
[2018-11-04] MEDS: LORazepam 1 MG TABLET PO ×2 (08:46→21:11)
[2018-11-04] MEDS: ENOXAPARIN 40 MG/0.4 ML SYRINGE SUBCUT (08:47)
[2018-11-04] MEDS: SODIUM CHLORIDE 0.9% FLUSH 10 ML IV ×2 (08:48→21:11)
[2018-11-04] MEDS: ALBUTEROL 2.5 MG/3 ML NEB (ADULT) INH (09:24)
--- NOTE | 2018-11-04 13:21 | PM.PN.1 ---
Subjective Date Patient Seen: 11/04/18 Interval history: He is seen today to follow-up the bilateral upper leg and buttock ulcers with debridement by General surgery. Asthma. Opiate use disorder. Anxiety. Depression. He is hyper focused on resuming his methadone. He is no longer on IV Dilaudid. Exam Vital Signs (past 8 hours): - 11/04/18 08:17 11/04/18 08:19 11/04/18 08:40 Temperature 97.7 F Pulse Rate 81 Respiratory Rate 16 Blood Pressure 115/53 L Pulse Oximetry 90 L 96 98 11/04/18 09:35 11/04/18 12:55 Temperature 97.3 F L Pulse Rate 78 94 H Respiratory Rate 24 16 Blood Pressure 116/51 L Pulse Oximetry 97 93 Oxygen Delivery Method Nasal Cannula Oxygen Flow Rate 1 Narrative Exam Narrative: He is heavily obtunded, over sedated and unable to communicate during my visit although reportedly wakes up and has normal mentation several hours later. He is hyper focused on resuming his methadone. No apparent distress. Heart is regular rate and rhythm without murmur. Lungs are clear to auscultation bilaterally. Extremities have no ankle edema. He is very obese. His buttock area ulcerations are examined daily by General surgery. Objective Labs Result Diagrams: 11/04/18 06:25 11/04/18 06:25 Labs: Laboratory Results - last 24 hr 11/03/18 11/03/18 11/03/18 14:16 14:16 14:16 WBC 8.4 RBC 3.83 L Hgb 9.5 L Hct 30.4 L MCV 79.3 L MCH 24.8 L MCHC 31.3 RDW 16.3 H Plt Count 239 Neut % (Auto) 74.5 Lymph % (Auto) 15.7 L Pershing % (Auto) 9.3 Eos % (Auto) 0.3 L Baso % (Auto) 0.2 Neut # (Auto) 6300 Lymph # (Auto) 1300 [place] # (Auto) 800 Eos # (Auto) 0 Baso # (Auto) 0 Sodium 137 Potassium 3.5 Chloride 99 Carbon Dioxide 32 BUN 8 L Creatinine 0.60 L Estimated GFR > 60.0 BUN/Creatinine Ratio 13.3 Glucose 88 Lactate 1.5 Calcium 7.7 L Total Bilirubin AST ALT Alkaline Phosphatase Total Protein Albumin Globulin Albumin/Globulin Ratio 11/04/18 11/04/18 06:25 06:25 WBC 4.8 RBC 3.32 L Hgb 8.4 L Hct 25.7 L MCV 77.6 L MCH 25.3 L MCHC 32.6 RDW 16.4 H Plt Count 188 Neut % (Auto) 58.8 Lymph % (Auto) 28.6 [place] % (Auto) 11.5 Eos % (Auto) 1.0 L Baso % (Auto) 0.1 Neut # (Auto) 2800 Lymph # (Auto) 1400 [place] # (Auto) 500 Eos # (Auto) 0 Baso # (Auto) 0 Sodium 137 Potassium 3.7 Chloride 99 Carbon Dioxide 32 BUN 8 L Creatinine 0.60 L Estimated GFR > 60.0 BUN/Creatinine Ratio 13.3 Glucose 98 Lactate Calcium 7.7 L Total Bilirubin 0.7 AST 10 L ALT 21 Alkaline Phosphatase 61 Total Protein 5.9 L Albumin 2.5 L Globulin 3.4 Albumin/Globulin Ratio 0.7 L Assessment & Plan Assessment & Plan narrative: 1 - Bilateral Infected Pressure/Friction Ulcers of the buttocks/sacrum/ischium/upper thighs - debridement yesterday by General surgery. No antibiotics at this time, pending wound/tissue culture results. 2 - Anemia of Chronic Disease - Begin on Iron and vitamin-C 3 - Opiate Use Disorder -resume Methadone at his clinic doses 4 - Depression/Anxiety - Continue Duloxetine and Olanzapine 5 - Asthma - Continue Prednisone, Albuterol and Advair 6 - Medical Obesity - Mobilize out of bed as much as he can tolerate. Quality VTE Deep Vein Thrombosis/Pulmonary Embolism Present on Admission: No
[2018-11-04] MEDS: METHADONE 10 MG TABLET 95 MG PO (13:30)
--- NOTE | 2018-11-04 17:33 | PC.NURSE ---
Wound Ostomy Nurse Note Arrived to help nursing staff put dressings on Babatunde's wounds. Dr. Moncada ordered Medihoney Calcium Alginate to both posterior leg wounds and cover with a border foam. Upon examining wound I felt a border foam would not work as Babatunde rolls and scoots too much. I asked Dr. Moncada if we could use a hydrocolloid as the secondary dressing and he agreed. I place the Medihoney Calcium Alginate into the wound bed of his right leg and then the hydrocolloid. This seemed like it was going to hold, but as soon as Babatunde got up to void, the honey melted and dripped out of the hydrocolloid. I removed the hydrocolloid and replaced the medihoney calcium alginate and was going to use an abd pad with hypafix when KAILYN White and I decided that this would not stay intact. I called Dr. Moncada and we decided to use Aquacel Ag then the hydrocolloid. This worked very well. After cleaning both leg wounds I place Aquacel Ag cut to fit into the wounds and then using 2 6x6 hydrocolloids for each wound covered the wounds. I would recommend when doing the next dressing change for these wounds to make sure to hold the hydrocolloids in place to warm up against Babatunde's body. Cindy use Zinc on the other wounds. We did not cover these wounds that had Zinc with a coversite as they would not fit. Babatunde was having pain during the dressing changes but was very cooperative.
[2018-11-04] MEDS: DOCUSATE 100 MG CAPSULE PO (21:11)
[2018-11-05] VITALS (10 sets, daily range): BP systolic 107–133; BP diastolic 49–68; PULSE 73–96; RESP 12–21; TEMP 36.4–36.7; O2SAT 91–99
[2018-11-05] MEDS: PIPERACILLIN-TAZO 4.5 GM/100 ML FROZ.PIGGY IV ×4 (03:43→22:56)
[2018-11-05] MEDS: SODIUM CHLORIDE 0.9% FLUSH 10 ML IV ×3 (04:23→22:57)
--- NOTE | 2018-11-05 06:43 | PC.NURSE ---
Sleeping most of the night, did not C/O any pain. Declined assistance to the BSC all night, very sleepy. Occasionally take off his oxygen & SPO2 in RA only 82%. With 2 liters sat. 95-98%. Will cont. POC & monitor.
[2018-11-05] MEDS: DULOXETINE 30 MG CAPSULE PO (08:00)
[2018-11-05] MEDS: OLANZapine 2.5 MG TABLET 20 MG PO (08:00)
[2018-11-05] MEDS: FERROUS SULFATE 325 MG TABLET PO (08:00)
[2018-11-05] MEDS: ENOXAPARIN 40 MG/0.4 ML SYRINGE SUBCUT (08:00)
[2018-11-05] MEDS: ASCORBIC ACID 500 MG TABLET PO (08:01)
[2018-11-05] MEDS: METHADONE 10 MG TABLET 95 MG PO (08:01)
[2018-11-05] MEDS: GABAPENTIN 300 MG CAPSULE PO ×3 (08:01→22:56)
[2018-11-05 08:44] LABS: Add Manual Diff / Slide Review NO; Basophils Absolute Auto 0 /uL (0-100); Basophils Percent Auto 0.2 % (0-2); Eosinophils Absolute Auto 0 /uL (0-450); Eosinophils Percent Auto 0.4 % (2-4); Hematocrit 26.8 % (41-53); Hemoglobin 8.3 g/dL (13.5-17.5); Lymphocytes Absolute Auto 700 /uL (1100-4500); Lymphocytes Percent Auto 18.6 % (25-40); Mean Corpuscular Hemoglobin 25.3 PG (26-34); Mean Corpuscular Volume 81.6 fL (80-100); Monocytes Absolute Auto 400 /uL (0-900); Monocytes Percent Auto 9.2 % (3-14); Neutrophils Absolute Auto 2800 /uL (1500-7000); Neutrophils Percent Auto 71.6 % (50-75); Platelet Count 266 X10^3/uL (150-400); Red Blood Cell Count 3.28 X10^6/uL (4.5-5.9); Red Cell Distribution Width 16.3 % (11.6-14.8); White Blood Cell Count 3.9 X10^3/uL (4.5-11.0)
--- NOTE | 2018-11-05 10:47 | P.PN_ITS ---
Subjective Date Patient Seen: 11/05/18 Time Patient Seen: 10:47 Interval history: He is seen today to follow up the leg and buttock wounds. He is also seen to follow up his opiate use disorder, anxiety, asthma, depression, chronic anemia. He is much more comfortable back on his usual 94 mg of methadone a day. Again, as he was yesterday, he is not alert enough to speak with me when I visit him mid morning. This over-sedation is typical. The wounds have recently been dressed. Nursing staff show me pictures which are consistent with my recollection of largely superficial, but deeper in the central aspect, now freshly debrided, serpiginous bordered ulcers on the backs of both upper thighs and buttocks. They do not look infected in any way. He is on an air flow bed and is on Zosyn IV. The wound cultures are still pending. The Gram stain indicates a multi microbial organism appearance. The hemoglobin is stable at 8.3 Exam Vital Signs (past 8 hours): - 11/05/18 04:00 11/05/18 08:00 11/05/18 08:15 Temperature 97.8 F 97.5 F L Pulse Rate 88 96 H Respiratory Rate 20 18 Blood Pressure 130/60 133/52 L Pulse Oximetry 97 91 93 Oxygen Delivery Method Room Air Oxygen Flow Rate 0 Narrative Exam Narrative: The patient is over-sedated, opens his eyes briefly when I reached him and performed the standard exam. Heart is irregularly irregular with a 3/6 holosystolic murmur. Lungs are clear to auscultation bilaterally. Extremities have no ankle edema. Refer to comments above about the appearance of the problematic ulcers. Objective Labs Result Diagrams: 11/05/18 08:38 11/04/18 06:25 Labs: Laboratory Results - last 24 hr 11/05/18 08:38 WBC 3.9 L RBC 3.28 L Hgb 8.3 L Hct 26.8 L MCV 81.6 D MCH 25.3 L MCHC 31.0 RDW 16.3 H Plt Count 266 Neut % (Auto) 71.6 Lymph % (Auto) 18.6 L [place] % (Auto) 9.2 Eos % (Auto) 0.4 L Baso % (Auto) 0.2 Neut # (Auto) 2800 Lymph # (Auto) 700 L [place] # (Auto) 400 Eos # (Auto) 0 Baso # (Auto) 0 Assessment & Plan Assessment & Plan narrative: 1 - Bilateral Infected Pressure/Friction Ulcers of the buttocks/sacrum/ischium/u pper thighs - debridement 2 days ago by General surgery. Continues on IV Zosyn pending wound tissue culture results. 2 - Anemia of Chronic Disease - Continue on Iron and vitamin-C - stable hemoglobin of 8.3 3 - Opiate Use Disorder -Continue Methadone at his clinic doses -his methadone dependence is due to history of opioid dependence. 4 - Depression/Anxiety - Continue Duloxetine and Olanzapine 5 - Asthma - Continue Prednisone, Albuterol and Advair 6 - Medical Obesity - Mobilize out of bed as much as he can tolerate. 7 - Postoperative Hypoxia due to prolonged sedation - resolved. No longer on oxygen. Quality VTE Deep Vein Thrombosis/Pulmonary Embolism Present on Admission: No
[2018-11-05] MEDS: predniSONE 20 MG TABLET PO (13:25)
[2018-11-05] MEDS: DOCUSATE 100 MG CAPSULE PO (13:26)
--- NOTE | 2018-11-05 13:53 | PC.NURSE ---
patient required drsg changes to bl upper thigh's at 0700 as they were falling off distally (flapping and saturated as he transf to the commode with assist). see wound doc in worklist. patient napped after breakfast and was then assisted up to commode after lunch. again the drsgs placed this am are falling off distally and saturated w/ drainage running down his legs. patient was assisted to shower in br, and then fresh drsgs were again re-placed. after cleansing and patting dry, skin prep to wound edges, maxorb alginate (we are out of [employer].) and then exudry x2 to each wound and then hydrocolloid (xtra thin duoderm) x2 to each wound. zinc again placed to all other open areas of scrotum, ischium areas. patient needed rest breaks during drsg applications, but overall tolerated well.
--- NOTE | 2018-11-05 19:54 | PC.NURSE ---
willy note drsgs to bilateral posterior thighs dry and intact with shadow drainage. Open wounds to ischial tuberosities are beefy red with bright red oozing; zinc oxide ointment applied and covered with absorbant drsg, but drsgs fell off when pt getting back in bed. Scrotum is excoriated with peeling skin. Bilateral heel waffle boots on.
[2018-11-05] MEDS: LORazepam 1 MG TABLET PO (22:56)
[2018-11-06] VITALS (12 sets, daily range): BP systolic 102–120; BP diastolic 46–59; PULSE 76–97; RESP 15–22; TEMP 36.4–36.8; O2SAT 93–98
--- NOTE | 2018-11-06 | DI.ECHO.S_ITS ---
[place] [facility]---------+ [facility] +---------+ : : [address] : : : : [id number] : : : : Phone: [phone] Echocardiogram Report + + :Name: YEHUDA LÓPEZ Study Date: 11/06/2018 Height: 66 in : :[facility] Exam Location: [place] Weight: 500 lb : : Gender: Male BSA: 3.0 m2 : :: 1980 Age: 38 yrs BP: 103/55 mmHg: :Reason For Study: [place] : : Performed By: Lianna Wan : :Referring: Alyssa SEPULVEDA E : + + Interpretation Summary The study quality was technically difficult. Normal sinus rhythm. Normal LV size and wall thickness. There is flattened septum in systole and diastole c/w RV pressure overload. EF is 55-60%. The right ventricle is moderate to severely dilated. Right ventricular size has increased since the prior echo exam. Right ventricular systolic function is moderately reduced. There is moderate calcification that appears to extend from the annulus into both the mitral leaflets without any significant mitral stenosis; there is mild associated MR. Otherwise no significant valvular abnormalities. Suspect pulmonary hypertension which was not properly evaluated because of lack of tricuspid regurgitation velocity evaluation. Compared to prior study 08/12/2018 no changes have occurred. Procedure: A two-dimensional transthoracic echocardiogram with color flow and Doppler was performed. The study quality was technically difficult. Comparison is made with the echocardiogram of 08/12/18. The patient was in normal sinus rhythm during the exam. Left Ventricle: The left ventricle is normal in size. There is normal left ventricular wall thickness. The ejection fraction is estimated to be 75-80%. Flattened septum is consistent with RV volume overload. Regional wall motion abnormalities cannot be excluded due to limited visualization. Right Ventricle: The right ventricle is moderately dilated. The right ventricular systolic function is normal. Atria: Both atria are severely dilated. The interatrial septum is intact with no evidence for an atrial septal defect. Mitral Valve: There is moderate mitral annular calcification. There is mild mitral regurgitation. Aortic Valve: The aortic valve is trileaflet. The aortic valve opens well. No aortic regurgitation is present. Tricuspid Valve: The tricuspid valve is normal in structure and function. Pulmonary artery pressures cannot be estimated because of the lack of a measurable TR jet velocity. Pulmonic Valve: The pulmonic valve is not well seen, but is grossly normal. There is trace pulmonic regurgitation. Great Vessels: The aortic root is normal size. The dimensions of the ascending aorta are normal. The pulmonary artery is normal size. The IVC is dilated (diameter is greater than 2.1 cm) and it collapses less than 50% with a sniff. This suggests a high right atrial pressure of 15 mm Hg. Pericardium/ Pleura There is no pericardial effusion. There is no pleural effusion. MMode/2D Measurements & Calculations LVIDd: 5.5 cm Ao root diam: 3.6 cm LVIDs: 3.8 cm asc Aorta Diam: 3.1 cm FS: 31.1 % EPSS: 0.52 cm IVSd: 0.95 cm LVPWd: 0.90 cm LV liz. diameter/BSA (cm/m^2): 1.9 LV sys. diameter/BSA (cm/m^2): 1.3 LA dimension: 5.3 cm RA long axis: 7.4 cm LA A2 area: 49.9 cm2 RA area: 45.2 cm2 LA A4 area: 37.7 cm2 RA vol: 235.0 ml LA length (vol): 7.8 cm RA : 79.6 ml/m2 LA vol: 204.2 ml IVC diam: 2.6 cm LA vol index: 69.1 ml/m2 Doppler Measurements & Calculations Ao V2 max: 157.6 cm/sec MV E max kim: 152.2 cm/sec Ao V2 mean: 101.1 cm/sec MV A max kim: 136.7 cm/sec Ao max P.9 mmHg MV E/A: 1.1 Ao mean P.9 mmHg MV dec time: 0.18 sec Ao V2 VTI: 30.3 cm PA V2 max: 100.6 cm/sec MV V2 mean: 80.5 cm/sec PA V2 mean: 70.1 cm/sec MV mean P.2 mmHg PA mean P.3 mmHg MV V2 VTI: 29.0 cm PA Accel Time: 0.08 sec Electronically signed by: Ingrid Sibley M.D. on Reading Physician:11/06/2018 05:54 PM
[2018-11-06] MEDS: PIPERACILLIN-TAZO 4.5 GM/100 ML FROZ.PIGGY IV ×4 (04:15→22:19)
--- NOTE | 2018-11-06 08:45 | PM.PN.1 ---
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 He also has active and ongoing opioid dependence syndrome, asthma, anemia of chronic disease, anxiety and depression. He is more alert but still minimally interactive and very much ?in bed? and not showing any interest in getting up. He is very interested in eating, not unexpectedly. Exam Vital Signs (past 8 hours): - 11/06/18 01:00 11/06/18 04:10 Temperature 97.7 F Pulse Rate 76 Respiratory Rate 16 Blood Pressure 103/55 L Pulse Oximetry 95 95 Oxygen Delivery Method Nasal Cannula Oxygen Flow Rate 1 Narrative Exam Narrative: Alert and oriented x3. No apparent distress. Heart is irregularly irregular with a 2/6 systolic murmur. Lungs are clear to auscultation bilaterally. Extremities have no ankle edema. The wounds on the posterior thigh and sacrum are being addressed daily with nursing dressing changes. There are at least 1 or 2 that are still bleeding at times. Objective Labs Result Diagrams: 11/05/18 08:38 11/04/18 06:25 Labs: Laboratory Results - last 24 hr 11/05/18 08:38 WBC 3.9 L RBC 3.28 L Hgb 8.3 L Hct 26.8 L MCV 81.6 D MCH 25.3 L MCHC 31.0 RDW 16.3 H Plt Count 266 Neut % (Auto) 71.6 Lymph % (Auto) 18.6 L [place] % (Auto) 9.2 Eos % (Auto) 0.4 L Baso % (Auto) 0.2 Neut # (Auto) 2800 Lymph # (Auto) 700 L [place] # (Auto) 400 Eos # (Auto) 0 Baso # (Auto) 0 Assessment & Plan Assessment & Plan narrative: 1 - Bilateral Infected Pressure/Friction Ulcers of the buttocks/sacrum/ischium/upper thighs - debridement 3 days ago by General surgery. Continues on IV Zosyn and will be adding IV vancomycin today due to the MRSA and gram-negative bacilli on the tissue biopsy culture. 2 - Anemia of Chronic Disease - Continue on Iron and vitamin-C - stable hemoglobin of 8.3, recheck tomorrow 3 - Opiate Use Disorder -Continue Methadone at his clinic doses -his methadone dependence is due to history of opioid dependence. 4 - Depression/Anxiety - Continue Duloxetine and Olanzapine 5 - Asthma - Continue Prednisone, Albuterol and Advair 6 - Medical Obesity - Mobilize out of bed as much as he can tolerate. 7 - Postoperative Hypoxia due to prolonged sedation - resolved. No longer on oxygen. Quality VTE Deep Vein Thrombosis/Pulmonary Embolism Present on Admission: No
[2018-11-06] MEDS: DULOXETINE 30 MG CAPSULE PO (08:59)
[2018-11-06] MEDS: VANCOMYCIN 2,000 MG in SODIUM CHLORIDE 0.9% 500 ML 150 ML IV (08:59)
[2018-11-06] MEDS: METHADONE 10 MG TABLET 95 MG PO (09:00)
[2018-11-06] MEDS: OLANZapine 2.5 MG TABLET 20 MG PO (09:00)
[2018-11-06] MEDS: FERROUS SULFATE 325 MG TABLET PO (09:00)
[2018-11-06] MEDS: GABAPENTIN 300 MG CAPSULE PO ×3 (09:00→22:18)
[2018-11-06] MEDS: ASCORBIC ACID 500 MG TABLET PO (09:00)
[2018-11-06] MEDS: ENOXAPARIN 30 MG/0.3 ML SYRINGE SUBCUT ×2 (09:00→22:19)
[2018-11-06] MEDS: FLUTICASONE/SALMETEROL 500/50 14 PUFF DISKUS INH ×2 (09:21→17:57)
[2018-11-06] MEDS: DOCUSATE 100 MG CAPSULE PO ×2 (13:08→22:18)
[2018-11-06] MEDS: predniSONE 20 MG TABLET PO (13:09)
--- NOTE | 2018-11-06 14:04 | PC.NURSE ---
SHIFT SUMMARY; DRSG CHANGED THIS AM FROM 1030 TO 1115. THIGH DRSGS WERE INTACT BUT HAD >50% SHADOW DRAINAGE AND CONCERN FOR MACERATION. DRSGS REMOVED. SOILED WITH COPIOUS SEROUS/SANG DRAINAGE. PERIWOUND EDGES ARE SHINY BUT NOT YET MACERATED. USED MAXSORB ALGINATE TO PACK GENTLY INTO WOUND, WITHOUT OVERLYING INTACT SKIN. SKIN PREP WAS USED. ALLYVN BOARDER FORM DRSGS WERE PLACED TO SMALLER SURROUNDING AREA. AND HYDROCOLLOID PLACED OVER TO HOLD ALGINATE IN PLACE. THIS WAS DONE TO BOTH THIGHS AFTER CLEANSING WITH NS AND GAUZE. ISCHEAL TUBEROSITIES WITH BEEFY RED OPEN AREAS WERE CLEANSED W/ NS AND DRIED. SKIN PREP, AND ALLYVEN BOARDER FOAM DRSGS PLACED. ZINC EPC CREAM APPLIED TO SCROTAL WOUNDS. ANTERIOR PANIS FOLDS ALL CLEANSED AND DRIED AND FOLDED PILLOW CASES PLACED TO KEEP AREAS CLEAN AND DRY. NO BREAKDOWN IN PANIS. ENTIRE SKIN WAS BEDBATH CLEANSED AND LOTION APPLIED THROUGHOUT TO PREVENT ITCHING. THIS AFTERNOON, PATIENT UP TO VOID AT 1350 AND DRSGS WERE NOTED TO REMAIN CDI. TELE WAS PLACED BRIEFLY IRREG IRREG HEART RATE NOTED. SR W/ PAC'S PER BURRER OPERATOR. ECHO WAS COMPLETED THIS AFTERNOON.
[2018-11-06] MEDS: CLINDAMYCIN 600 MG/50 ML PIGGYBACK 50 MG IV (15:37)
[2018-11-06] MEDS: SODIUM CHLORIDE 0.9% FLUSH 10 ML IV ×2 (15:38→22:17)
[2018-11-06] MEDS: ALBUTEROL 2.5 MG/3 ML NEB (ADULT) INH (17:57)
[2018-11-07] VITALS (14 sets, daily range): BP systolic 91–118; BP diastolic 45–56; PULSE 74–96; RESP 18–22; TEMP 36.3–36.8; O2SAT 79–99
[2018-11-07] MEDS: CLINDAMYCIN 600 MG/50 ML PIGGYBACK 50 MG IV ×2 (01:10→06:49)
[2018-11-07] MEDS: PIPERACILLIN-TAZO 4.5 GM/100 ML FROZ.PIGGY IV ×4 (04:02→22:07)
[2018-11-07] MEDS: FLUTICASONE/SALMETEROL 500/50 14 PUFF DISKUS INH (05:34)
[2018-11-07 05:45] LABS: Add Manual Diff / Slide Review NO; Basophils Absolute Auto 0 /uL (0-100); Basophils Percent Auto 0.1 % (0-2); Eosinophils Absolute Auto 0 /uL (0-450); Eosinophils Percent Auto 1.2 % (2-4); Hematocrit 24.1 % (41-53); Hemoglobin 7.6 g/dL (13.5-17.5); Lymphocytes Absolute Auto 1200 /uL (1100-4500); Lymphocytes Percent Auto 35.4 % (25-40); Mean Corpuscular HGB Conc 31.6 % (30-36); Mean Corpuscular Hemoglobin 25.4 PG (26-34); Mean Corpuscular Volume 80.1 fL (80-100); Monocytes Absolute Auto 400 /uL (0-900); Monocytes Percent Auto 12.2 % (3-14); Neutrophils Absolute Auto 1700 /uL (1500-7000); Neutrophils Percent Auto 51.1 % (50-75); Platelet Count 171 X10^3/uL (150-400); Red Blood Cell Count 3.01 X10^6/uL (4.5-5.9); White Blood Cell Count 3.3 X10^3/uL (4.5-11.0)
[2018-11-07 05:50] LABS: BUN Creatinine Ratio 6.7 (6-22); Blood Urea Nitrogen 4 mg/dL (9-20); Calcium 7.4 mg/dL (8.4-10.2); Carbon Dioxide 34 mmol/L (22-32); Chloride 99 mmol/L (98-107); Estimated Glomerular Filt Rate > 60.0 mL/min (>60); Glucose 80 mg/dL (70-100); HEMOLYSIS < 15 (0-50); Potassium 3.6 mmol/L (3.4-5.1); Sodium 136 mmol/L (137-145)
--- NOTE | 2018-11-07 06:35 | PC.NURSE ---
Shift note: Received pt from evening shift. Pt very sedate during assessment and on shift. Responsive to voice and touch but would only open eyes. IV has remained at TKO with NS to prevent IV site loss d/t pt's history of difficult access and body size. [facility] made aware of this. At 0600 this RN and ADULT SPECIALIST went into pt's room to encourage pt to ambulate to BSC to to void and to assess wounds. Initially pt was unable to open eyes for extended period of time and it was determined that pt would have to be rolled to get him on bedpan as he appeared to be unsafe to ambulate, pt was able to wake up and ambulate himself out of bed and to use the bedside commode. At this time, assessed wound and found that pt's left upper posterior thigh dressing to be saturated and half removed. Removed the duoderm dressing and other packing, then replaced with Maxabsorb and a new duoderm dressing. Unable to determine if dressing remained in place after pt positioned himself back onto the bed d/t habitus.
--- NOTE | 2018-11-07 06:46 | PM.PN.1 ---
Subjective Date Patient Seen: 11/07/18 Interval history: Babatunde Fitzgerald is a 38-year-old male with a past medical history significant for morbid obesity (BMI 80), asthma on chronic prednisone, obesity hypoventilation syndrome, RAJESH, chronic pain with methadone dependence, and chronic stage II decubitus pressure ulcerations of scrotum and posterior thighs who presented for increased pain and drainage of stage II decubitus pressure ulcerations of posterior thighs. The patient is resting in bed comfortably. He is quite somnolent and appears overmedicated in regard to pain medication and anxiolytics. He denies shortness of breath, chest pain, abdominal pain, nausea, vomiting, fever, chills, dysuria, diarrhea or constipation. He is voiding and eliminating without difficulty. He is up ambulating very minimally without assistance. I had a long discussion with his primary care physician Dr. Hernández ([phone]). Dr. Hernández indicated that he has been slowly tapering him off prednisone by 5 mg weekly for which the patient did not report upon medication reconciliation. He also reports that he is on methadone 95 mg daily and he is actually on 85 mg daily, olanzapine 20 mg daily and he is actually on 15 mg daily and he reports he is on lorazepam which he is not prescribed at all. His home medication list will be changed. Discussed with IT department, who are currently working on a way to make it known that his med rec should be verified through his PCP office everytime and his inaccuracy in reporting meds known to nursing staff and physicians who admit him in the future. Exam Vital Signs (past 8 hours): - 11/06/18 23:10 11/07/18 01:30 11/07/18 05:00 Temperature 97.7 F 97.3 F L Pulse Rate 86 74 Respiratory Rate 18 18 Blood Pressure 106/52 L 107/56 L Pulse Oximetry 93 93 99 11/07/18 05:35 Temperature Pulse Rate Respiratory Rate Blood Pressure Pulse Oximetry 94 Oxygen Delivery Method Room Air Oxygen Flow Rate 1 Narrative Exam Narrative: General: Young morbidly obese gentleman lying in bed and in no acute distress, well-developed, well-nourished, somnolent and appears over-sedated. HEENT: Normocephalic, atraumatic. External ears without defect. Pupils equal, round, and reactive to light. Anicteric sclerae, moist conjunctivae, and no lid lag. Neck: Supple with full range of motion. No lymphadenopathy or thyromegaly. Cardiovascular: Heart sounds distant but appear regular rate and rhythm without murmurs, rubs, or gallops appreciated. Pulmonary: Clear to auscultation bilaterally without crackles, wheezes, or rhonchi. Normal respiratory effort with no use of accessory muscles. Abdomen: Soft, obese, bowel sounds present, nontender, nondistended. No hepatosplenomegaly or masses appreciated. Extremities: No clubbing or cyanosis. Brawny edema to knees bilaterally. Skin: Normal temperature, turgor, and texture; several stage II pressure ulcers on scrotum and posterior thighs which I am familiar with as I have cared for him several times over last several months and were not viewed today as patient is somnolent and overly sedated. Neurological: Cranial nerves grossly intact. Psychiatric: Depressed mood and flat affect. Somnolent and overly sedated. Poor insight into disease process. Objective Labs Result Diagrams: 11/07/18 05:12 11/07/18 05:12 Labs: Laboratory Results - last 24 hr 11/07/18 11/07/18 05:12 05:12 WBC 3.3 L RBC 3.01 L Hgb 7.6 L Hct 24.1 L MCV 80.1 MCH 25.4 L MCHC 31.6 RDW 16.0 H Plt Count 171 Neut % (Auto) 51.1 D Lymph % (Auto) 35.4 [place] % (Auto) 12.2 Eos % (Auto) 1.2 L Baso % (Auto) 0.1 Neut # (Auto) 1700 Lymph # (Auto) 1200 [place] # (Auto) 400 Eos # (Auto) 0 Baso # (Auto) 0 Sodium 136 L Potassium 3.6 Chloride 99 Carbon Dioxide 34 H BUN 4 L Creatinine 0.60 L Estimated GFR > 60.0 BUN/Creatinine Ratio 6.7 Glucose 80 Calcium 7.4 L Assessment & Plan Assessment & Plan narrative: Babatunde Fitzgerald is a 38-year-old male with a past medical history significant for morbid obesity (BMI 80), asthma on chronic prednisone, obesity hypoventilation syndrome, RAJESH, chronic pain with methadone dependence, and chronic stage II decubitus pressure ulcerations of scrotum and posterior thighs who presented for increased pain and drainage of stage II decubitus pressure ulcerations of posterior thighs. 1. Acute on chronic stage II decubitus pressure ulcerations of posterior thighs, status post debridement, present on admission. Active. -Post-debridement day #3 by General Surgery. Do not appear to be infected as no signs or symptoms indicative of infection. Will continue IV antibiotics with Zosyn until identification and sensitivities have resulted. Stop clindamycin as there is no need for double anaerobic coverage. Talked to Dr. Sarmiento of Infectious Disease, who recommends a short antibiotic course for his likely MSSA but that he is likely colonized rather than truly infected. This is an ongoing montano as patient is noncompliant with follow-up to wound care clinic and is unable to take care of himself adequately at home. 2. Anemia of chronic disease, present on admission. Stable. -Continue on Iron and vitamin-C. -Hemoglobin and hematocrit stable. No overt signs of bleeding. Pressure ulcerations are draining serosanguinous as above. -Monitor H&H daily. 3. Chronic pain with opiate dependence, present on admission. Stable. -Continue Methadone at his clinic dose of 90 mg daily per PCP recommendations (recently decreased to 85 mg and will plan to work with PCP outpatient to continue taper down). -His methadone dependence is due to history of opioid dependence. 4. Depression and anxiety, chronic, present on admission. Stable. -Continue home Duloxetine and Olanzapine 15 mg daily not 20 mg. Not on lorazepam as an outpatient. 5. Asthma, OHS, and RAJESH, chronic, present on admission. Stable. -Continue prednisone with 5 mg taper weekly per PCP Dr. Hernández, albuterol as needed, Advair and CPAP per RT. 6. Morbid obesity, chronic, present on admission. Stable. -BMI 80 on admission. -Mobilize out of bed as much as he can tolerate. -Limit snacks to 2 per day and follow a heart healthy diet. -Patient will benefit from slow taper off prednisone and decrease methadone to lowest possible dose to treat pain. 7. Postoperative hypoxemia due to prolonged sedation, not present on admission. Resolved. -No longer on supplemental oxygen. Disposition: Likely to discharge in 1-2 days to long term facility versus home with home health for ongoing wound management. Quality VTE Deep Vein Thrombosis/Pulmonary Embolism Present on Admission: No
[2018-11-07] MEDS: FERROUS SULFATE 325 MG TABLET PO (10:02)
[2018-11-07] MEDS: ASCORBIC ACID 500 MG TABLET PO (10:03)
[2018-11-07] MEDS: SODIUM CHLORIDE 0.9% FLUSH 10 ML IV (10:04)
[2018-11-07] MEDS: METHADONE 10 MG TABLET 95 MG PO (10:55)
[2018-11-07] MEDS: GABAPENTIN 300 MG CAPSULE PO ×3 (10:55→21:06)
[2018-11-07] MEDS: DULOXETINE 30 MG CAPSULE PO (10:55)
[2018-11-07] MEDS: OLANZapine 2.5 MG TABLET 20 MG PO (10:56)
[2018-11-07] MEDS: SODIUM CHLORIDE 0.9% 250 ML 21 ML IV (10:59)
--- NOTE | 2018-11-07 12:19 | CM.DANOTE ---
Addendum entered by JOSÉ LUIS Leon 11/07/18 16:02: ADD: [facility] states that currently they can't accept pt due to his wound care/changes but if pt's wound changes decrease to like once a day then they could likely accept and they would be willing to re-review closer to d/c if his wound changes are less extensive. BF Original Note: Patient is a 38 year old male who was admitted on 11/03/18 for Wound Care needs. Pt has [employer] for insurance and his PCP is Dr. Gabe Meraz. EMR was reviewed. Per MD, Wound Care Consult ordered for pt's wound/skin breakdown and currently on IV-Abx and Echo ordered for heart murmur. Wound Care Consult completed and Kiersten, Wound RN, has seen the pt and worked with pt and staff and completed her note in pt's EMR. Pt has had many readmits to [facility] as well as almost weekly ER visits for ongoing medical needs and seemingly anxiety related medical concerns. Pt seems to have more wound care needs, ongoing lack of self care, decreased mobility and deconditioning. PT/OT have been ordered towards [facility] auth at d/c. Pt has a hx of returning home with his girlfriend for assist although she works and pt has been given information regarding applying for [facility] and has declined stating he and his girlfriend can care for his needs although he continues to come to the hospital in increasingly poor conditions and increased weight, close to 500 lbs. Previous recent admits, SW has confirmed that both [facility] and [facility] cannot accept the pt due to long hx of noncompliance. [facility] is not currently contracted with appweevr insurance. Pt has successfully switched from straight Medicaid insurance to having [place] and Medicaid which could be somewhat more helpful in SNF placement but pt's bariatric status has been a big barrier to SNF. During last admit these SNF's declined pt due to inability to accommodate his bariatric equipment needs: [facility]- no bc equipment [facility]no bc equipment [facility]- no bc equipment [facility]- at capacity for [facility]ric Per MD, pt failing at home and recommending SNF for wound care, therapy, and possible IV-Abx. But pt does not meet Acute need for MH assessment by Psych Consult at this time. Per RN, pt was able to get out of bed with quite a bit of assistance but was able to use BSC with 1PA before getting back into bed. PT/OT ordered and pending. SW met bedside with pt and explained role and pt back to being quite drowsy but SW was able to get confirmation from him that he would be agreeable to SW attempting SNF for the pt again now that his insurance has changed and he does not have SNF preference. [facility]- will call back once they determine if they are contracted with [place] and/or could do one time contract. [facility]- will call back once they determine if they are contracted with [place] and/or could do one time contract. [facility]- yes they are contracted with [place] and aware pt is bariatric and willing to review pt's clinicals to determine if they can meet his needs. Concerned since [facility] does not reimburse well but willing to review. SW faxed [facility] pt's clinicals to review. SW attempted to call pt's GENO Dsouza at [facility] ([phone]) and left [facility] [place] likely need of community care conference regarding pt's high admit rate and ER visits, noncompliance with scheduled appointments, and failing at home. Plan: SW to follow closely for return call from [facility] and [facility] (although [facility] previously stated they could not accept bc pt) and [facility] review of pt clinicals. SW to follow for return call from pt's GENO Dsouza at [facility] for discussion of community meeting. JOSÉ LUIS Leon Discharge Planning/Care Management CM Discharge Assessment Start: 11/07/18 12:16 Freq: Status: Active Protocol: Document 11/07/18 12:16 (Rec: 11/07/18 12:19 [id number]) Discharge Planning Assessment Assigned Dimension Mill Worker JOSÉ LUIS Barnes DPOA/Assigned Designee Name none Advance Directives? No Advance Directives on File No History Provided By Patient Medical Record Has Patient been admitted in last 30 Yes days? Prior Living Arrangements House Household Members significant other Type of transporation used prior to Relies on Others admit Comment From [place] with girlfriend but pt is not Independent with ADL's and relies on others for assist and transport. Independent with ADL's No Is patient alert and oriented? Yes Needs Assistance With Bathing Grooming Meal Prep Home Chores / Shopping Caregiver for Another No Community Services used prior to Oxygen Therapy admission: Comment Patient has walker but reports that it does not work well. Patient/Family Preference Senior Care Facility Comment Increased wound care needs and therapy due to decreased mobility and strength and deconditioning. Barriers to Discharge Yes Comment Large young man, Methadone program, marijuana, 0-2 drinks daily; polysubstance. Needs wound care. Patient does not seem to be adequately care for himself at home. Patient could possibly utilize [facility] for transport if needed at d/c pending pt's d/c plan. Discharge Plan Senior Care Facility Transportation Arrangement Pending discussion w/pt; family vs Medicaid transport vs [employer] [facility] Referrals Initiated Senior Care Other Medicare Choice List Provided Yes SNF/HH Preference Any that will accept in [facility] Updated in Patient Room with Yes name and ext. # of Dimension Mill Worker Review Status In Process Please Provide Date Initial DC 11/07/18 Assessment Was Performed Next Review Type Continued Stay Review
[2018-11-07] MEDS: ENOXAPARIN 30 MG/0.3 ML SYRINGE SUBCUT ×2 (12:25→21:05)
--- NOTE | 2018-11-07 13:46 | PC.NURSE ---
Addendum entered by Verona Liu R.N. 11/07/18 15:41: Every time Pt has been up OOB, the shearing force has removed the dressings that are in place. These are meant to absorb and are ont getting the chance to do so, the shearing is damaging to the tissue that is healthy. Active bleeding to area. Addressed with dr pressley, ok to put on less damaging dressing until wound care assess tomorrow. Original Note: Am shift Pt drowsy at start of shift. Requesting pain medication and assist to BSC. Impulsive and short with staff when demands for care are delayed. SOB, winded with bed mobility. up to BSC, R posterior dressing to thigh soaking through and rolled at edges. Replaced while up to BSC. Copious serosang drainage. Pt reports increased pain to area, refusing PT and OT. Calling out
--- NOTE | 2018-11-07 15:27 | PC.NURSE ---
Per Dr pressley, please get update med list from PCP DR Hernández. Pt is reporting more meds than he should be taking. Please do 11/08 AM
--- NOTE | 2018-11-07 15:55 | PT.IIE ---
Current Diagnoses Pressure ulcer of left buttock, stage 2 (11/03/18) Surgery Performed Operation Date: 11/03/18 15:30 Actual Procedures p Incision and Drainage upper bilateral legs-POSTERIOR(Bilateral) - Yuliet Pratt MD Surgical History (Last Reviewed 11/03/18 @ 18:58 by Niurka Cobos MD) H/O vertebral fracture repair (Chronic) History of hip surgery (Chronic) Medical History (Last Reviewed 11/03/18 @ 18:58 by Niurka Cobos MD) Anxiety (Acute) Asthma (Acute) Chronic skin ulcer (Chronic) Methadone use disorder, mild, in controlled environment (Chronic) Morbid obesity (Chronic) Physical Therapy Inpatient Evaluation/Re-Eval M1 PT/OT-IP Prior Functional Status Start: 11/07/18 15:13 Freq: NEEDED Status: Active Protocol: Document 11/07/18 10:00 NFW (Rec: 11/07/18 15:55 NFW [id number]) Medical Review Prior Functional Status Medical History Reviewed Yes Mobility and Gait Ambulates with FWW around apartment, to and from car. Activities of Daily Living and IADL's Patient requires assistance from girlfriend for dressing, bathing, hygiene. Dresses minimally at home with shorts and tshirts. Prior Functional Level (Other details) Girlfriend works four-ten hour shifts as a requirements engineer. During this time he is home alone and able walk around apartment on his own with FWW and make simple foods. Social History Household Members significant other Living Arrangements House Number of Floors (Floors) One Floor Number of Stairs To Enter/Railing? Has a ramp into the house to avoid the two steps. Home Environment Ramp Home Equipment Front Wheel Walker M2 PT-IP Current Condition Start: 11/07/18 15:13 Freq: NEEDED Status: Active Protocol: Document 11/07/18 10:00 NFW (Rec: 11/07/18 15:55 NFW [id number]) Physical Therapy Current Condition Current Condition Evaluation Date 11/07/18 Treatment Diagnosis Recurring decubitus ulcers Weight Bearing Status Weight Bearing Status Full Weight Bearing M3 PT-IP Subjective Start: 11/07/18 15:13 Freq: NEEDED Status: Active Protocol: Document 11/07/18 10:00 NFW (Rec: 11/07/18 15:55 NFW [id number]) Subjective Physical Therapy Visit Type Type Initial Evaluation Visit Start Time 10:00 Visit Stop Time 10:30 Total Visit Minutes 30 Number of AD OPERATIONS SPECIALIST Visits 0 Physical Therapy Visit Comments Patient Comments Patient in pain from bleeding of ulcers. At times, crying. Called from nursing to assist in transfering patient from commode to bed. Patient Goals Unable to attain goals from patient. Therapy Pain Assessment Pain When Pain Assessed At Rest Pain Present Pain Present Pain Reported M4 PT-IP Mobility and Gait Start: 11/07/18 15:13 Freq: NEEDED Status: Active Protocol: Document 11/07/18 10:00 NFW (Rec: 11/07/18 15:55 [facility] [id number]) PT-Bed Mobility Assessment Sit to Supine Sit to Supine Moderate Assistance 1 Person Assistance Scooting Scooting to Edge of Bed Independent Scooting Up and Down in Bed Independent PT-Transfer Assessment Sit to and From Stand Sit to and from Stand Contact Guard Assistance 1 Person Assistance Equipment Transfer Assistive Device Front Wheeled Walker Orthotic/Prosthetic Devices or Brace: No Transfers Transfer Destination Bed Transfer Ability Level of Assist Contact Guard Assistance 1 Person Assistance Comments Mobility Comments Patient mainly needed assistance with lifting/ adjusting LEs when going from sitting to supine. Did not have a chance to assess supine to sitting. CGA for sitting <> standing mainly for safety. Does not like to use gait belt. Gait Assessment Gait Gait Assistance Required: Contact Guard Assist 1 Person Assist Distance (Feet) 12 Assistive Devices Assistive Device Front Wheeled Walker Gait Deviations General Gait Pattern Decreased Stride Length Decreased Feet Clearance Flexed Trunk Wide Based Gait Factors Limiting Gait Function Factors Limiting Gait Function Abnormal Tonal Influences Decreased Activity Tolerance Decreased Sensation Decreased Strength Incoordination Limited Range of Motion Pain Poor Balance Respiratory Distress Comments Gait Comments Required extensive encouragement to have patient ambulate with FWW. M5 PT-IP Objective Assessments Start: 11/07/18 15:13 Freq: NEEDED Status: Active Protocol: Document 11/07/18 10:00 NFW (Rec: 11/07/18 15:55 [facility] [id number]) Orientation Orientation/Cognition Orientation Name Place Language Function Ability Garbled Speech Comments Fades in and out of alertness. Gross Range of Motion Upper Extremity ROM Assessment Within Functional Limits Lower Extremity ROM Assessment Bilaterally Impaired Impairments Excessive edema into BLEs Strength Upper Extremity Strength Assessment Within Functional Limits Comments Strength Comments LE strength difficult to assess due to pain from ulcers . Has functional strength to walk short distances with FWW. Sensation Assessment Sensation Gross Sensation WNL Muscle Tone Muscle Tone WNL Yes M7 PT-IP Assessment and Plan Start: 11/07/18 15:13 Freq: NEEDED Status: Active Protocol: Document 11/07/18 10:00 NFW (Rec: 11/07/18 15:55 NFW [id number]) PT Summary Assessment and Plan Potential Rehabilitation Potential Fair Status of Condition at Evaluation Evolving Summary Impairments Pain ROM Strength Balance Coordination Sensation Tone Cognition Bed Mobility Transfers Gait Activity Tolerance Progress Towards Goals Slow Progress due to Pain Slow Progress due to Activity Tolerance Assessment Summary Patient's main concern is controlling of the pain from decubitus ulcers. Activity tolerance and ambition at this point is low and will need extensive encouragement to follow through with treatment. Will start with BID treatments but if unwilling to cooperate will decrease to qd . Goals Bed Mobility Goal Independent Transfer Goal Independent Gait Goal Independent Front Wheel Walker Gait Distance 50 Days to Meet Goals 3 Frequency of Treatment Frequency Of Treatment Twice a Day Treatment Plan Physical Therapy Treatment Plan Bed Mobility Training Transfer Training Gait Training Therapeutic Exercise Balance Retraining Recommendations To Nursing Amount of Assist Needed 1 Person Assist Discharge Recommendations PT Discharge Recommendations Acute Rehab
--- NOTE | 2018-11-07 16:07 | PT.IPTN ---
Current Diagnoses Pressure ulcer of left buttock, stage 2 (11/03/18) Surgery Performed Operation Date: 11/03/18 15:30 Actual Procedures p Incision and Drainage upper bilateral legs-POSTERIOR(Bilateral) - Yuliet Pratt MD Physical Therapy Treatment Note M2 PT-IP Current Condition Start: 11/07/18 15:13 Freq: NEEDED Status: Active Protocol: Document 11/07/18 10:00 NFW (Rec: 11/07/18 15:55 NF [id number]) Physical Therapy Current Condition Current Condition Evaluation Date 11/07/18 Treatment Diagnosis Recurring decubitus ulcers Weight Bearing Status Weight Bearing Status Full Weight Bearing M3 PT-IP Subjective Start: 11/07/18 15:13 Freq: NEEDED Status: Active Protocol: Document 11/07/18 10:00 NFW (Rec: 11/07/18 15:55 NFW [id number]) Subjective Physical Therapy Visit Type Type Initial Evaluation Visit Start Time 10:00 Visit Stop Time 10:30 Total Visit Minutes 30 Number of DISEASE CASE MANAGER Visits 0 Physical Therapy Visit Comments Patient Comments Patient in pain from bleeding of ulcers. At times, crying. Called from nursing to assist in transfering patient from commode to bed. Patient Goals Unable to attain goals from patient. Therapy Pain Assessment Pain When Pain Assessed At Rest Pain Present Pain Present Pain Reported M4 PT-IP Mobility and Gait Start: 11/07/18 15:13 Freq: NEEDED Status: Active Protocol: Document 11/07/18 10:00 NFW (Rec: 11/07/18 15:55 [facility] [id number]) PT-Bed Mobility Assessment Sit to Supine Sit to Supine Moderate Assistance 1 Person Assistance Scooting Scooting to Edge of Bed Independent Scooting Up and Down in Bed Independent PT-Transfer Assessment Sit to and From Stand Sit to and from Stand Contact Guard Assistance 1 Person Assistance Equipment Transfer Assistive Device Front Wheeled Walker Orthotic/Prosthetic Devices or Brace: No Transfers Transfer Destination Bed Transfer Ability Level of Assist Contact Guard Assistance 1 Person Assistance Comments Mobility Comments Patient mainly needed assistance with lifting/ adjusting LEs when going from sitting to supine. Did not have a chance to assess supine to sitting. CGA for sitting <> standing mainly for safety. Does not like to use gait belt. Gait Assessment Gait Gait Assistance Required: Contact Guard Assist 1 Person Assist Distance (Feet) 12 Assistive Devices Assistive Device Front Wheeled Walker Gait Deviations General Gait Pattern Decreased Stride Length Decreased Feet Clearance Flexed Trunk Wide Based Gait Factors Limiting Gait Function Factors Limiting Gait Function Abnormal Tonal Influences Decreased Activity Tolerance Decreased Sensation Decreased Strength Incoordination Limited Range of Motion Pain Poor Balance Respiratory Distress Comments Gait Comments Required extensive encouragement to have patient ambulate with FWW. M5 PT-IP Objective Assessments Start: 11/07/18 15:13 Freq: NEEDED Status: Active Protocol: Document 11/07/18 10:00 NFW (Rec: 11/07/18 15:55 NF [id number]) Orientation Orientation/Cognition Orientation Name Place Language Function Ability Garbled Speech Comments Fades in and out of alertness. Gross Range of Motion Upper Extremity ROM Assessment Within Functional Limits Lower Extremity ROM Assessment Bilaterally Impaired Impairments Excessive edema into BLEs Strength Upper Extremity Strength Assessment Within Functional Limits Comments Strength Comments LE strength difficult to assess due to pain from ulcers . Has functional strength to walk short distances with FWW. Sensation Assessment Sensation Gross Sensation WNL Muscle Tone Muscle Tone WNL Yes M6 PT-IP Treatment Start: 11/07/18 15:13 Freq: NEEDED Status: Active Protocol: Document 11/07/18 02:40 NFW (Rec: 11/07/18 16:07 NFW [id number]) Physical Therapy Treatment Exercises Exercises Ankle Pumps Quad Sets M7 PT-IP Assessment and Plan Start: 11/07/18 15:13 Freq: NEEDED Status: Active Protocol: Document 11/07/18 10:00 NFW (Rec: 11/07/18 15:55 NF [id number]) PT Summary Assessment and Plan Potential Rehabilitation Potential Fair Status of Condition at Evaluation Evolving Summary Impairments Pain ROM Strength Balance Coordination Sensation Tone Cognition Bed Mobility Transfers Gait Activity Tolerance Progress Towards Goals Slow Progress due to Pain Slow Progress due to Activity Tolerance Assessment Summary Patient's main concern is controlling of the pain from decubitus ulcers. Activity tolerance and ambition at this point is low and will need extensive encouragement to follow through with treatment. Will start with BID treatments but if unwilling to cooperate will decrease to qd . Goals Bed Mobility Goal Independent Transfer Goal Independent Gait Goal Independent Front Wheel Walker Gait Distance 50 Days to Meet Goals 3 Frequency of Treatment Frequency Of Treatment Twice a Day Treatment Plan Physical Therapy Treatment Plan Bed Mobility Training Transfer Training Gait Training Therapeutic Exercise Balance Retraining Recommendations To Nursing Amount of Assist Needed 1 Person Assist Discharge Recommendations PT Discharge Recommendations Skilled Rehab
--- NOTE | 2018-11-07 16:18 | PT.IIE ---
Current Diagnoses Pressure ulcer of left buttock, stage 2 (11/03/18) Surgery Performed Operation Date: 11/03/18 15:30 Actual Procedures p Incision and Drainage upper bilateral legs-POSTERIOR(Bilateral) - Yuliet Pratt MD Surgical History (Last Reviewed 11/03/18 @ 18:58 by Niurka Cobos MD) H/O vertebral fracture repair (Chronic) History of hip surgery (Chronic) Medical History (Last Reviewed 11/03/18 @ 18:58 by Niurka Cobos MD) Anxiety (Acute) Asthma (Acute) Chronic skin ulcer (Chronic) Methadone use disorder, mild, in controlled environment (Chronic) Morbid obesity (Chronic) Physical Therapy Inpatient Evaluation/Re-Eval M1 PT/OT-IP Prior Functional Status Start: 11/07/18 15:13 Freq: NEEDED Status: Active Protocol: Document 11/07/18 10:00 NFW (Rec: 11/07/18 15:55 NFW [id number]) Medical Review Prior Functional Status Medical History Reviewed Yes Mobility and Gait Ambulates with FWW around apartment, to and from car. Activities of Daily Living and IADL's Patient requires assistance from girlfriend for dressing, bathing, hygiene. Dresses minimally at home with shorts and tshirts. Prior Functional Level (Other details) Girlfriend works four-ten hour shifts as a fourdrinier tender. During this time he is home alone and able walk around apartment on his own with FWW and make simple foods. Social History Household Members significant other Living Arrangements House Number of Floors (Floors) One Floor Number of Stairs To Enter/Railing? Has a ramp into the house to avoid the two steps. Home Environment Ramp Home Equipment Front Wheel Walker M2 PT-IP Current Condition Start: 11/07/18 15:13 Freq: NEEDED Status: Active Protocol: Document 11/07/18 10:00 NFW (Rec: 11/07/18 15:55 NFW [id number]) Physical Therapy Current Condition Current Condition Evaluation Date 11/07/18 Treatment Diagnosis Recurring decubitus ulcers Weight Bearing Status Weight Bearing Status Full Weight Bearing M3 PT-IP Subjective Start: 11/07/18 15:13 Freq: NEEDED Status: Active Protocol: Document 11/07/18 10:00 NFW (Rec: 11/07/18 15:55 NFW [id number]) Subjective Physical Therapy Visit Type Type Initial Evaluation Visit Start Time 10:00 Visit Stop Time 10:30 Total Visit Minutes 30 Number of C D STRIPPER Visits 0 Physical Therapy Visit Comments Patient Comments Patient in pain from bleeding of ulcers. At times, crying. Called from nursing to assist in transfering patient from commode to bed. Patient Goals Unable to attain goals from patient. Therapy Pain Assessment Pain When Pain Assessed At Rest Pain Present Pain Present Pain Reported M4 PT-IP Mobility and Gait Start: 11/07/18 15:13 Freq: NEEDED Status: Active Protocol: Document 11/07/18 10:00 NFW (Rec: 11/07/18 15:55 [facility] [id number]) PT-Bed Mobility Assessment Sit to Supine Sit to Supine Moderate Assistance 1 Person Assistance Scooting Scooting to Edge of Bed Independent Scooting Up and Down in Bed Independent PT-Transfer Assessment Sit to and From Stand Sit to and from Stand Contact Guard Assistance 1 Person Assistance Equipment Transfer Assistive Device Front Wheeled Walker Orthotic/Prosthetic Devices or Brace: No Transfers Transfer Destination Bed Transfer Ability Level of Assist Contact Guard Assistance 1 Person Assistance Comments Mobility Comments Patient mainly needed assistance with lifting/ adjusting LEs when going from sitting to supine. Did not have a chance to assess supine to sitting. CGA for sitting <> standing mainly for safety. Does not like to use gait belt. Gait Assessment Gait Gait Assistance Required: Contact Guard Assist 1 Person Assist Distance (Feet) 12 Assistive Devices Assistive Device Front Wheeled Walker Gait Deviations General Gait Pattern Decreased Stride Length Decreased Feet Clearance Flexed Trunk Wide Based Gait Factors Limiting Gait Function Factors Limiting Gait Function Abnormal Tonal Influences Decreased Activity Tolerance Decreased Sensation Decreased Strength Incoordination Limited Range of Motion Pain Poor Balance Respiratory Distress Comments Gait Comments Required extensive encouragement to have patient ambulate with FWW. M5 PT-IP Objective Assessments Start: 11/07/18 15:13 Freq: NEEDED Status: Active Protocol: Document 11/07/18 10:00 NFW (Rec: 11/07/18 15:55 [facility] [id number]) Orientation Orientation/Cognition Orientation Name Place Language Function Ability Garbled Speech Comments Fades in and out of alertness. Gross Range of Motion Upper Extremity ROM Assessment Within Functional Limits Lower Extremity ROM Assessment Bilaterally Impaired Impairments Excessive edema into BLEs Strength Upper Extremity Strength Assessment Within Functional Limits Comments Strength Comments LE strength difficult to assess due to pain from ulcers . Has functional strength to walk short distances with FWW. Sensation Assessment Sensation Gross Sensation WNL Muscle Tone Muscle Tone WNL Yes M6 PT-IP Treatment Start: 11/07/18 15:13 Freq: NEEDED Status: Active Protocol: Document 11/07/18 02:40 NFW (Rec: 11/07/18 16:07 NFW [id number]) Physical Therapy Treatment Exercises Exercises Ankle Pumps Quad Sets M7 PT-IP Assessment and Plan Start: 11/07/18 15:13 Freq: NEEDED Status: Active Protocol: Document 11/07/18 10:00 NFW (Rec: 11/07/18 15:55 NFW [id number]) PT Summary Assessment and Plan Potential Rehabilitation Potential Fair Status of Condition at Evaluation Evolving Summary Impairments Pain ROM Strength Balance Coordination Sensation Tone Cognition Bed Mobility Transfers Gait Activity Tolerance Progress Towards Goals Slow Progress due to Pain Slow Progress due to Activity Tolerance Assessment Summary Patient's main concern is controlling of the pain from decubitus ulcers. Activity tolerance and ambition at this point is low and will need extensive encouragement to follow through with treatment. Will start with BID treatments but if unwilling to cooperate will decrease to qd . Goals Bed Mobility Goal Independent Transfer Goal Independent Gait Goal Independent Front Wheel Walker Gait Distance 50 Days to Meet Goals 3 Frequency of Treatment Frequency Of Treatment Twice a Day Treatment Plan Physical Therapy Treatment Plan Bed Mobility Training Transfer Training Gait Training Therapeutic Exercise Balance Retraining Recommendations To Nursing Amount of Assist Needed 1 Person Assist Discharge Recommendations PT Discharge Recommendations [facility]
--- NOTE | 2018-11-07 16:29 | PT.IIE ---
Current Diagnoses Pressure ulcer of left buttock, stage 2 (11/03/18) Surgery Performed Operation Date: 11/03/18 15:30 Actual Procedures p Incision and Drainage upper bilateral legs-POSTERIOR(Bilateral) - Yuliet Pratt MD Surgical History (Last Reviewed 11/03/18 @ 18:58 by Niurka Cobos MD) H/O vertebral fracture repair (Chronic) History of hip surgery (Chronic) Medical History (Last Reviewed 11/03/18 @ 18:58 by Niurka Cobos MD) Anxiety (Acute) Asthma (Acute) Chronic skin ulcer (Chronic) Methadone use disorder, mild, in controlled environment (Chronic) Morbid obesity (Chronic) Physical Therapy Inpatient Evaluation/Re-Eval M1 PT/OT-IP Prior Functional Status Start: 11/07/18 15:13 Freq: NEEDED Status: Active Protocol: Document 11/07/18 10:00 NFW (Rec: 11/07/18 15:55 NFW [id number]) Medical Review Prior Functional Status Medical History Reviewed Yes Mobility and Gait Ambulates with FWW around apartment, to and from car. Activities of Daily Living and IADL's Patient requires assistance from girlfriend for dressing, bathing, hygiene. Dresses minimally at home with shorts and tshirts. Prior Functional Level (Other details) Girlfriend works four-ten hour shifts as a data processing equipment repairer. During this time he is home alone and able walk around apartment on his own with FWW and make simple foods. Social History Household Members significant other Living Arrangements House Number of Floors (Floors) One Floor Number of Stairs To Enter/Railing? Has a ramp into the house to avoid the two steps. Home Environment Ramp Home Equipment Front Wheel Walker M2 PT-IP Current Condition Start: 11/07/18 15:13 Freq: NEEDED Status: Active Protocol: Document 11/07/18 10:00 NFW (Rec: 11/07/18 15:55 NFW [id number]) Physical Therapy Current Condition Current Condition Evaluation Date 11/07/18 Treatment Diagnosis Recurring decubitus ulcers Weight Bearing Status Weight Bearing Status Full Weight Bearing M3 PT-IP Subjective Start: 11/07/18 15:13 Freq: NEEDED Status: Active Protocol: Document 11/07/18 10:00 NFW (Rec: 11/07/18 15:55 NFW [id number]) Subjective Physical Therapy Visit Type Type Initial Evaluation Visit Start Time 10:00 Visit Stop Time 10:30 Total Visit Minutes 30 Number of POSTAL SERVICE CLERK Visits 0 Physical Therapy Visit Comments Patient Comments Patient in pain from bleeding of ulcers. At times, crying. Called from nursing to assist in transfering patient from commode to bed. Patient Goals Unable to attain goals from patient. Therapy Pain Assessment Pain When Pain Assessed At Rest Pain Present Pain Present Pain Reported M4 PT-IP Mobility and Gait Start: 11/07/18 15:13 Freq: NEEDED Status: Active Protocol: Document 11/07/18 10:00 NFW (Rec: 11/07/18 15:55 [facility] [id number]) PT-Bed Mobility Assessment Sit to Supine Sit to Supine Moderate Assistance 1 Person Assistance Scooting Scooting to Edge of Bed Independent Scooting Up and Down in Bed Independent PT-Transfer Assessment Sit to and From Stand Sit to and from Stand Contact Guard Assistance 1 Person Assistance Equipment Transfer Assistive Device Front Wheeled Walker Orthotic/Prosthetic Devices or Brace: No Transfers Transfer Destination Bed Transfer Ability Level of Assist Contact Guard Assistance 1 Person Assistance Comments Mobility Comments Patient mainly needed assistance with lifting/ adjusting LEs when going from sitting to supine. Did not have a chance to assess supine to sitting. CGA for sitting <> standing mainly for safety. Does not like to use gait belt. Gait Assessment Gait Gait Assistance Required: Contact Guard Assist 1 Person Assist Distance (Feet) 12 Assistive Devices Assistive Device Front Wheeled Walker Gait Deviations General Gait Pattern Decreased Stride Length Decreased Feet Clearance Flexed Trunk Wide Based Gait Factors Limiting Gait Function Factors Limiting Gait Function Abnormal Tonal Influences Decreased Activity Tolerance Decreased Sensation Decreased Strength Incoordination Limited Range of Motion Pain Poor Balance Respiratory Distress Comments Gait Comments Required extensive encouragement to have patient ambulate with FWW. M5 PT-IP Objective Assessments Start: 11/07/18 15:13 Freq: NEEDED Status: Active Protocol: Document 11/07/18 10:00 NFW (Rec: 11/07/18 15:55 [facility] [id number]) Orientation Orientation/Cognition Orientation Name Place Language Function Ability Garbled Speech Comments Fades in and out of alertness. Gross Range of Motion Upper Extremity ROM Assessment Within Functional Limits Lower Extremity ROM Assessment Bilaterally Impaired Impairments Excessive edema into BLEs Strength Upper Extremity Strength Assessment Within Functional Limits Comments Strength Comments LE strength difficult to assess due to pain from ulcers . Has functional strength to walk short distances with FWW. Sensation Assessment Sensation Gross Sensation WNL Muscle Tone Muscle Tone WNL Yes M6 PT-IP Treatment Start: 11/07/18 15:13 Freq: NEEDED Status: Active Protocol: Protocol: Document 11/07/18 10:00 NFW (Rec: 11/07/18 15:55 NFW [id number]) PT Summary Assessment and Plan Potential Rehabilitation Potential Fair Status of Condition at Evaluation Evolving Summary Impairments Pain ROM Strength Balance Coordination Sensation Tone Cognition Bed Mobility Transfers Gait Activity Tolerance Progress Towards Goals Slow Progress due to Pain Slow Progress due to Activity Tolerance Assessment Summary Patient's main concern is controlling of the pain from decubitus ulcers. Activity tolerance and ambition at this point is low and will need extensive encouragement to follow through with treatment. Will start with BID treatments but if unwilling to cooperate will decrease to qd . Goals Bed Mobility Goal Independent Transfer Goal Independent Gait Goal Independent Front Wheel Walker Gait Distance 50 Days to Meet Goals 3 Frequency of Treatment Frequency Of Treatment Twice a Day Treatment Plan Physical Therapy Treatment Plan Bed Mobility Training Transfer Training Gait Training Therapeutic Exercise Balance Retraining Recommendations To Nursing Amount of Assist Needed 1 Person Assist Discharge Recommendations PT Discharge Recommendations Long Term
--- NOTE | 2018-11-07 16:36 | PT.IPTN ---
Current Diagnoses Pressure ulcer of left buttock, stage 2 (11/03/18) Surgery Performed Operation Date: 11/03/18 15:30 Actual Procedures p Incision and Drainage upper bilateral legs-POSTERIOR(Bilateral) - Yuliet Pratt MD Physical Therapy Treatment Note M2 PT-IP Current Condition Start: 11/07/18 15:13 Freq: NEEDED Status: Active Protocol: Document 11/07/18 10:00 NFW (Rec: 11/07/18 15:55 NFW [id number]) Physical Therapy Current Condition Current Condition Evaluation Date 11/07/18 Treatment Diagnosis Recurring decubitus ulcers Weight Bearing Status Weight Bearing Status Full Weight Bearing M3 PT-IP Subjective Start: 11/07/18 15:13 Freq: NEEDED Status: Active Protocol: Document 11/07/18 14:40 NFW (Rec: 11/07/18 16:07 NFW [id number]) Subjective Physical Therapy Visit Type Type Treatment Note Visit Start Time 14:40 Visit Stop Time 15:00 Total Visit Minutes 20 Number of ARTICULATION OFFICER Visits 0 Physical Therapy Visit Comments Patient Comments Patient difficult to arouse. Fades in and out of alertness during treatment. Not willing to get out of bed. M4 PT-IP Mobility and Gait Start: 11/07/18 15:13 Freq: NEEDED Status: Active Protocol: Document 11/07/18 14:40 NFW (Rec: 11/07/18 16:07 NFW [id number]) PT-Bed Mobility Assessment Scooting Scooting Up and Down in Bed Independent PT-Transfer Assessment Comments Mobility Comments Uses trapeze to scoot up and down in bed. M5 PT-IP Objective Assessments Start: 11/07/18 15:13 Freq: NEEDED Status: Active Protocol: Document 11/07/18 10:00 NFW (Rec: 11/07/18 15:55 NFW [id number]) Orientation Orientation/Cognition Orientation Name Place Language Function Ability Garbled Speech Comments Fades in and out of alertness. Gross Range of Motion Upper Extremity ROM Assessment Within Functional Limits Lower Extremity ROM Assessment Bilaterally Impaired Impairments Excessive edema into BLEs Strength Upper Extremity Strength Assessment Within Functional Limits Comments Strength Comments LE strength difficult to assess due to pain from ulcers . Has functional strength to walk short distances with FWW. Sensation Assessment Sensation Gross Sensation WNL Muscle Tone Muscle Tone WNL Yes M6 PT-IP Treatment Start: 11/07/18 15:13 Freq: NEEDED Status: Active Protocol: Document 11/07/18 14:40 NFW (Rec: 11/07/18 16:07 NFW [id number]) Physical Therapy Treatment Exercises Exercises Ankle Pumps Quad Sets M7 PT-IP Assessment and Plan Start: 11/07/18 15:13 Freq: NEEDED Status: Active Protocol: Document 11/07/18 14:40 NFW (Rec: 11/07/18 16:07 NF [id number]) PT Summary Assessment and Plan Summary Impairments Pain ROM Strength Balance Coordination Sensation Tone Cognition Bed Mobility Transfers Gait Activity Tolerance Goals Days to Meet Goals 3 Frequency of Treatment Frequency Of Treatment Twice a Day Treatment Plan Physical Therapy Treatment Plan Bed Mobility Training Transfer Training Gait Training Therapeutic Exercise Balance Retraining Recommendations To Nursing Amount of Assist Needed 1 Person Assist Discharge Recommendations PT Discharge Recommendations SNF Rehab Other Discharge Recommendations Patient has had recurring admittances into hospital due to inability to care for himself. Could benefit from SNF to regain strength, mobility.
--- NOTE | 2018-11-07 16:58 | OT.IP.EVAL ---
Current Diagnoses Pressure ulcer of left buttock, stage 2 (11/03/18) Surgery Performed Operation Date: 11/03/18 15:30 Actual Procedures p Incision and Drainage upper bilateral legs-POSTERIOR(Bilateral) - Yuliet Pratt MD Past Medical History (Last Reviewed 11/03/18 @ 18:58 by Niurka Cobos MD) Anxiety (Acute) Asthma (Acute) Chronic skin ulcer (Chronic) Methadone use disorder, mild, in controlled environment (Chronic) Morbid obesity (Chronic) Surgical History (Last Reviewed 11/03/18 @ 18:58 by Niurka Cobos MD) H/O vertebral fracture repair (Chronic) History of hip surgery (Chronic) Occupational Therapy Inpatient Evaluation/Re-Eval M1 PT/OT-IP Prior Functional Status Start: 11/07/18 16:03 Freq: NEEDED Status: Active Protocol: Document 11/07/18 10:00 [facility] (Rec: 11/07/18 16:58 [facility] [id number]) Medical Review Prior Functional Status Medical History Reviewed Yes Mobility and Gait Ambulates with FWW around apartment, to and from car. Activities of Daily Living and IADL's Patient requires assistance from girlfriend for dressing, bathing, hygiene. Dresses minimally at home with shorts and tshirts. Prior Functional Level (Other details) Girlfriend works four-ten hour shifts as a lusterer. During this time he is home alone and able walk around apartment on his own with FWW and make simple foods. Social History Household Members significant other Living Arrangements House Number of Floors (Floors) One Floor Number of Stairs To Enter/Railing? Has a ramp into the house to avoid the two steps. Home Environment Ramp Home Equipment Front Wheel Walker M2 OT-IP Current Condition Start: 11/07/18 16:03 Freq: Status: Active Protocol: Document 11/07/18 10:00 [facility] (Rec: 11/07/18 16:58 [facility] [id number]) Occupational Therapy Current Condition Current Condition Evaluation Date 11/07/18 Treatment Diagnosis Chronic ulceration on perineum sacrum and scrotal areas Diagnosis Onset Date 11/03/18 M3 OT- IP Subjective and Pain Start: 11/07/18 16:03 Freq: Status: Active Protocol: Document 11/07/18 10:00 [facility] (Rec: 11/07/18 16:58 [facility] [id number]) OT- Subjective Occupational Therapy Visit Type Type Initial Evaluation Visit Start Time 10:00 Visit Stop Time 10:30 Total Visit Minutes 40 Notes Also seen in PM to access BUE strength and ask questions regarding home set-up. Occupational Therapy Visit Comments Patient Comments Pt very drowsy and however became alert once aware nursing about to give him medications. OT Pain Assessment Pain When Pain Assessed At Rest Pain Present Pain Present Pain Reported M4 OT- IP ADL's Start: 11/07/18 16:03 Freq: Status: Active Protocol: Document 11/07/18 10:00 [facility] (Rec: 11/07/18 16:58 [facility] [id number]) OT [id number] Comments OT Self-Feeding Comments Pt able to eat independently on his own. OT ADL-Grooming Comments OT Grooming Comments No opportunity at this time as pt only agreeing to get up and take a few steps for OT eval. OT ADL-Dressing General Eval Lower Body Dressing Ability Maximum Assistance Comments OT Dressing Comments At this time MAX A for LB dressing needs. Pt states at home wears shorts, however in the hospital not wanting to wear any clothes. OT ADL-Toileting General Evaluation Toileting Ability Total Assistance Areas Needing Assistance Perform Perineal Hygiene Devices Toileting Assistive Devices Commode Comments OT Toileting Comments Total assist for perineal hygiene needs but able transfer to [facility] with CGA and FWW. M6 OT- IP Functional Cognition Start: 11/07/18 16:03 Freq: Status: Active Protocol: Document 11/07/18 10:00 [facility] (Rec: 11/07/18 16:58 [facility] [id number]) Cognitive Factors Limiting Selfcare Function Cognitive Ability Level of Alertness Alert Drowsy Lethargic Patient Orientation Name Place Situation Attention Span Ability Unable to Focus Unable to Sustain Attention Ability to Follow Commands Able to Follow One Step Commands Safety Awareness Underestimates Need for Assistance Cognitive Comments Cognitive Assessment Comments Pt very drowsy, not easily aroused. Pt needing lots of encouragement to participate in therapy. Pt able to follow one step commands after encouragement. Pt has poor insight and awareness of medical condition and wound care needs. OT- Vision and Hearing OT- Hearing Assessment OT- Hearing Assessment WFL OT- Vision Assessment Vision Assessment Comments Pt able to read the clock accurately. M7 OT- IP Mobility and Balance Start: 11/07/18 16:03 Freq: Status: Active Protocol: Document 11/07/18 10:00 [facility] (Rec: 11/07/18 16:58 [facility] [id number]) OT- Bed Mobility Assessment Sit to Supine Sit to Supine Assist Moderate Assistance 1 Person Assistance Bedrails OT-Transfer Assessment Sit to and From Stand Sit to and from Stand Contact Guard Assistance 1 Person Assistance Transfers Transfer Ability Contact Guard Assistance 1 Person Assistance Technique Transfer Destination Bedside Commode Transfer Technique Stand Step Pivot Devices Transfer Assistive Devices Front Wheeled Walker Comments Mobility Comments Pt refuses to wear the gait belt. OT- Gait Assessment Comments Gait Ability Comments Due to height of bed , pt needing MODA to help get legs back into the bed. Pt heavily relies on trapeze bars and bedrails to help position in bed. OT- Balance Assessment Sitting Balance and Reactions Static Sitting Balance Ability Good Dynamic Sitting Balance Ability Fair Standing Balance and Reactions Static Standing Balance Ability Fair M8 OT- IP Objective Assessments Start: 11/07/18 16:03 Freq: Status: Active Protocol: Document 11/07/18 10:00 [facility] (Rec: 11/07/18 16:58 [facility] [id number]) OT Gross Range of Motion Upper Extremity Range of Motion Assessment Within Functional Limits OT Strength Comments Strength Comments BUE 5/5 M9 OT- IP Assessment and Plan Start: 11/07/18 16:03 Freq: Status: Active Protocol: Document 11/07/18 10:00 [facility] (Rec: 11/07/18 16:58 [facility] [id number]) OT Summary Assessment and Plan Potential Rehabilitation Potential Fair Analytic Complexity at Evaluation Moderate Summary OT Impairments Pain Balance Functional Cognition Functional Mobility Grooming Dressing Toileting Bathing Toilet Transfers Shower Transfers Progress Towards Goals Slow Progress due to Pain Slow Progress due to Medical Issues Slow Progress due to Activity Tolerance Slow Progress due to Cognition Assessment Summary Pt MOd complexity and here for chronic and recurring ulcers. Pt dependent for all hygiene and care of wounds at this time. Pt still MAX A for all LB dressing needs as well. Pt would benefit from skilled rehab for wound needs and continue to work on increasing pt's indepedence for Adl and functional mobility, safety awareness needs. Goals Grooming Goal Standby Assistance Dressing Goal Moderate Assistance Toilet Transfer Goal Standby Assistance OT-Other Goals Pt to be independent for BUE exercises with theraband to help maintain BUE strength for Adl and functional mobility needs. Days to Meet Goals 5 Frequency of Treatment Frequency Of Treatment Once a Day Treatment Plan OT Treatment Plan ADL Training Functional Cognition Training Functional Mobility Patient/Family Education Discharge Planning Other Treatment Recommendations and Next Practice use of LB dressing Treatment Focus with applications chemist to assist to rosemary shorts. Stand by sink for grooming needs with FWW. Discharge Recommendations OT Discharge Recommendations SNF Rehab Home Equipment Needs [facility]
--- NOTE | 2018-11-07 20:54 | PC.NURSE ---
Pt resting at intervals. ' Lungs w/crackles noted. SpO2 95% RA. Assisted to BSC Dsg to buttocks changed after falling off. Denies discomfort at this time Has had relatively uneventful evening. Condition remains essentially unchanged. Possible D/C tomorrow. Call light w/in reach. Continue w/plan of care.
[2018-11-07] MEDS: DOCUSATE 100 MG CAPSULE PO (21:05)
[2018-11-08] VITALS (13 sets, daily range): BP systolic 90–108; BP diastolic 43–55; PULSE 80–94; RESP 14–22; TEMP 36.7–37.1; O2SAT 91–97
[2018-11-08] MEDS: PIPERACILLIN-TAZO 4.5 GM/100 ML FROZ.PIGGY IV (05:17)
[2018-11-08] MEDS: FLUTICASONE/SALMETEROL 500/50 14 PUFF DISKUS INH ×2 (05:17→16:56)
[2018-11-08 05:55] LABS: Add Manual Diff / Slide Review NO; Basophils Absolute Auto 0 /uL (0-100); Basophils Percent Auto 0.4 % (0-2); Eosinophils Absolute Auto 0 /uL (0-450); Eosinophils Percent Auto 1.7 % (2-4); Hematocrit 24.8 % (41-53); Hemoglobin 7.8 g/dL (13.5-17.5); Lymphocytes Absolute Auto 1200 /uL (1100-4500); Lymphocytes Percent Auto 43.8 % (25-40); Mean Corpuscular HGB Conc 31.5 % (30-36); Mean Corpuscular Hemoglobin 25.3 PG (26-34); Mean Corpuscular Volume 80.3 fL (80-100); Monocytes Absolute Auto 300 /uL (0-900); Neutrophils Absolute Auto 1200 /uL (1500-7000); Neutrophils Percent Auto 44.1 % (50-75); Platelet Count 160 X10^3/uL (150-400); Red Blood Cell Count 3.09 X10^6/uL (4.5-5.9); Red Cell Distribution Width 16.5 % (11.6-14.8); White Blood Cell Count 2.7 X10^3/uL (4.5-11.0)
[2018-11-08 06:10] LABS: BUN Creatinine Ratio 6.7 (6-22); Blood Urea Nitrogen 4 mg/dL (9-20); Calcium 7.4 mg/dL (8.4-10.2); Carbon Dioxide 35 mmol/L (22-32); Chloride 100 mmol/L (98-107); Estimated Glomerular Filt Rate > 60.0 mL/min (>60); Glucose 78 mg/dL (70-100); HEMOLYSIS < 15 (0-50); Magnesium 2.3 mg/dL (1.6-2.3); Potassium 3.8 mmol/L (3.4-5.1); Sodium 137 mmol/L (137-145)
--- NOTE | 2018-11-08 06:18 | PC.NURSE ---
Shift note: Received pt from evening shift. Pt remained sedate for the duration of shift, was arousable by voice and touch. MARINE EQUIPMENT DESIGN ENGINEER woke pt up at 0600 to use BSC and this RN assessed posterior wounds that are not viewable while pt is in bed. Found that previous dressings were not in place and had rolled up completely. Removed dressings but did not want to remove aggressively as to not tear the skin further. Also did not want to put a new dressing over an old dressing and compromise the wound further. Pt was anxious to get back into bed and did not want to wait for the dressings to be changed. Pt was on bedside commode wailing, transferred him back to bed where pt will intermittently wail. MARINE EQUIPMENT DESIGN ENGINEER asked pt if he needed anything to which pt stopped wailing and asked for a cranberry juice and pudding. After MARINE EQUIPMENT DESIGN ENGINEER left room pt resumed wailing stating that his owies hurt. This RN advised pt that he could have APAP or Motrin for his pain and he stopped wailing. Pt now eating snack and conversing on the phone.
[2018-11-08] MEDS: OLANZapine 2.5 MG TABLET 15 MG PO (09:49)
[2018-11-08] MEDS: levoFLOXacin 250 MG TABLET 750 MG PO (09:49)
[2018-11-08] MEDS: METHADONE 10 MG TABLET 90 MG PO (09:50)
[2018-11-08] MEDS: DULOXETINE 30 MG CAPSULE PO (09:50)
[2018-11-08] MEDS: GABAPENTIN 300 MG CAPSULE PO ×3 (09:50→20:43)
[2018-11-08] MEDS: FERROUS SULFATE 325 MG TABLET PO (09:51)
[2018-11-08] MEDS: ENOXAPARIN 30 MG/0.3 ML SYRINGE SUBCUT ×2 (09:51→20:43)
[2018-11-08] MEDS: ASCORBIC ACID 500 MG TABLET PO (09:51)
[2018-11-08] MEDS: SODIUM CHLORIDE 0.9% FLUSH 10 ML IV ×2 (09:52→20:44)
--- NOTE | 2018-11-08 12:06 | OT.IP.TRT ---
Current Diagnoses Pressure ulcer of left buttock, stage 2 (11/03/18) Surgery Performed Operation Date: 11/03/18 15:30 Actual Procedures p Incision and Drainage upper bilateral legs-POSTERIOR(Bilateral) - Yuliet Pratt MD Occupational Therapy Treatment Note M2 OT-IP Current Condition Start: 11/07/18 16:03 Freq: Status: Active Protocol: Document 11/07/18 10:00 [facility] (Rec: 11/07/18 16:58 [facility] [id number]) Occupational Therapy Current Condition Current Condition Evaluation Date 11/07/18 Treatment Diagnosis Chronic ulceration on perineum sacrum and scrotal areas Diagnosis Onset Date 11/03/18 M3 OT- IP Subjective and Pain Start: 11/07/18 16:03 Freq: Status: Active Protocol: Document 11/08/18 10:08 [facility] (Rec: 11/08/18 12:06 [facility] [id number]) OT- Subjective Occupational Therapy Visit Type Type Treatment Note Visit Start Time 10:08 Visit Stop Time 10:28 Total Visit Minutes 20 Occupational Therapy Visit Comments Patient Comments Pt already sitting on the BSC when therapists (OT/PT) came into the room. OT Pain Assessment Pain When Pain Assessed At Rest Pain Present Pain Present Pain Reported M4 OT- IP ADL's Start: 11/07/18 16:03 Freq: Status: Active Protocol: Document 11/08/18 10:08 [facility] (Rec: 11/08/18 12:06 [facility] [id number]) OT ADL-Grooming General Evaluation Grooming Ability Standby Assistance Areas Needing Assistance Retrieving/Set-up of Grooming Items Comments OT Grooming Comments Set-up assist, pt able to walk over to the sink and wanting to sit and do grooming needs. Pt able to stand by the sink so nursing able to do hygiene care but was not able to tolerate standing for more then 2 minutes before having to sit down again. OT ADL-Oral Care General Eval Oral Care Ability Independent OT ADL-Dressing Comments OT Dressing Comments Pt refuses to wear clothing at this time. OT ADL-Toileting General Evaluation Toileting Ability Maximum Assistance Areas Needing Assistance Perform Perineal Hygiene Comments OT Toileting Comments SBA to get off toilet with FWW . Dependent for hygiene needs. M6 OT- IP Functional Cognition Start: 11/07/18 16:03 Freq: Status: Active Protocol: Document 11/08/18 10:08 [facility] (Rec: 11/08/18 12:06 [facility] [id number]) Cognitive Factors Limiting Selfcare Function Cognitive Ability Level of Alertness Alert Patient Orientation Name Place Situation Attention Span Ability Capable of Focused Attention Capable of Sustained Attention Unable to Sustain Attention Ability to Follow Commands Able to Follow One Step Commands Safety Awareness Underestimates Need for Assistance Problem Solving Ability Unable to Identify Errors Needs Assist to Identify Solutions Executive Function Ability Unable to Switch Focus Unable to Filter Distractions Unable to Make Plans Unable to Organize Plans Cognitive Comments Cognitive Assessment Comments Pt continues to have decreased awareness of medical needs, situation, and how to care for himself. M7 OT- IP Mobility and Balance Start: 11/07/18 16:03 Freq: Status: Active Protocol: Document 11/08/18 10:08 [facility] (Rec: 11/08/18 12:06 [facility] [id number]) OT-Transfer Assessment Sit to and From Stand Sit to and from Stand Standby Assistance 1 Person Assistance Transfers Transfer Ability Standby Assistance 1 Person Assistance Technique Transfer Destination Bedside Commode Transfer Technique Stand Step Pivot Devices Transfer Assistive Devices Front Wheeled Walker Comments Mobility Comments Pt refuses to wear the gait belt. OT- Balance Assessment Sitting Balance and Reactions Static Sitting Balance Ability Normal Dynamic Sitting Balance Ability Good Standing Balance and Reactions Static Standing Balance Ability Fair M8 OT- IP Objective Assessments Start: 11/07/18 16:03 Freq: Status: Active Protocol: Document 11/07/18 10:00 [facility] (Rec: 11/07/18 16:58 [facility] [id number]) OT Gross Range of Motion Upper Extremity Range of Motion Assessment Within Functional Limits OT Strength Comments Strength Comments BUE 5/5 M9 OT- IP Assessment and Plan Start: 11/07/18 16:03 Freq: Status: Active Protocol: Document 11/08/18 10:08 [facility] (Rec: 11/08/18 12:06 [facility] [id number]) OT Summary Assessment and Plan Potential Rehabilitation Potential Fair Analytic Complexity at Evaluation Moderate Summary OT Impairments Pain Balance Functional Cognition Functional Mobility Grooming Dressing Toileting Bathing Toilet Transfers Shower Transfers Progress Towards Goals Slow Progress due to Pain Slow Progress due to Medical Issues Slow Progress due to Activity Tolerance Slow Progress due to Cognition Assessment Summary Pt main barrier are pain, needing lots of encouragement to participate in therapy, and chronic wounds. Pt will benefit from [facility]hab for wound management needs and therapy to help increase independence for ADl' s and functional mobility. Goals Grooming Goal Standby Assistance Dressing Goal Moderate Assistance Toilet Transfer Goal Independent OT-Other Goals Pt to be independent for BUE exercises with theraband to help maintain BUE strength for Adl and functional mobility needs. Days to Meet Goals 4 Frequency of Treatment Frequency Of Treatment Once a Day Treatment Plan OT Treatment Plan ADL Training Functional Cognition Training Functional Mobility Patient/Family Education Discharge Planning Other Treatment Recommendations and Next Stand by sink for grooming Treatment Focus needs with FWW. Discharge Recommendations OT Discharge Recommendations SNF Rehab Home Equipment Needs [facility]
--- NOTE | 2018-11-08 13:07 | PT.IPTN ---
Current Diagnoses Pressure ulcer of left buttock, stage 2 (11/03/18) Surgery Performed Operation Date: 11/03/18 15:30 Actual Procedures p Incision and Drainage upper bilateral legs-POSTERIOR(Bilateral) - Yuliet Pratt MD Physical Therapy Treatment Note M2 PT-IP Current Condition Start: 11/07/18 15:13 Freq: NEEDED Status: Active Protocol: Document 11/07/18 10:00 [facility] (Rec: 11/07/18 15:55 [facility] [id number]) Physical Therapy Current Condition Current Condition Evaluation Date 11/07/18 Treatment Diagnosis Recurring decubitus ulcers Weight Bearing Status Weight Bearing Status Full Weight Bearing M3 PT-IP Subjective Start: 11/07/18 15:13 Freq: NEEDED Status: Active Protocol: Document 11/08/18 12:54 [facility] (Rec: 11/08/18 13:07 [facility] [id number]) Subjective Physical Therapy Visit Type Type Treatment Note Visit Start Time 10:18 Visit Stop Time 10:38 Total Visit Minutes 20 Notes treatment in conjunction with OT and nursing Number of PATIENT ACCOUNTS CLERK Visits 0 Physical Therapy Visit Comments Patient Comments Pt seen sitting on commode. M4 PT-IP Mobility and Gait Start: 11/07/18 15:13 Freq: NEEDED Status: Active Protocol: Document 11/08/18 12:54 [facility] (Rec: 11/08/18 13:07 [facility] [id number]) PT-Transfer Assessment Sit to and From Stand Sit to and from Stand Contact Guard Assistance 1 Person Assistance Equipment Transfer Assistive Device Front Wheeled Walker Orthotic/Prosthetic Devices or Brace: No Transfers Transfer Destination Bedside Commode Transfer Ability Level of Assist Contact Guard Assistance 1 Person Assistance Comments Mobility Comments CGA to SBA to and from sitting . Had pt stand from commode walk to sink where commode was placed for him to sit and perform hygiene. Pt then able to walk back to bed for assist with dressing. Gait Assessment Gait Gait Assistance Required: Contact Guard Assist 1 Person Assist Distance (Feet) 10 Assistive Devices Assistive Device Front Wheeled Walker Gait Deviations General Gait Pattern Decreased Stride Length Decreased Feet Clearance Flexed Trunk Wide Based Gait Factors Limiting Gait Function Factors Limiting Gait Function Abnormal Tonal Influences Decreased Activity Tolerance Decreased Sensation Decreased Strength Incoordination Limited Range of Motion Pain Poor Balance Respiratory Distress M5 PT-IP Objective Assessments Start: 11/07/18 15:13 Freq: NEEDED Status: Active Protocol: Document 11/07/18 10:00 [facility] (Rec: 11/07/18 15:55 [facility] [id number]) Orientation Orientation/Cognition Orientation Name Place Language Function Ability Garbled Speech Comments Fades in and out of alertness. Gross Range of Motion Upper Extremity ROM Assessment Within Functional Limits Lower Extremity ROM Assessment Bilaterally Impaired Impairments Excessive edema into BLEs Strength Upper Extremity Strength Assessment Within Functional Limits Comments Strength Comments LE strength difficult to assess due to pain from ulcers . Has functional strength to walk short distances with FWW. Sensation Assessment Sensation Gross Sensation WNL Muscle Tone Muscle Tone WNL Yes M6 PT-IP Treatment Start: 11/07/18 15:13 Freq: NEEDED Status: Active Protocol: Document 11/07/18 14:40 [facility] (Rec: 11/07/18 16:07 [facility] [id number]) Physical Therapy Treatment Exercises Exercises Ankle Pumps Quad Sets M7 PT-IP Assessment and Plan Start: 11/07/18 15:13 Freq: NEEDED Status: Active Protocol: Document 11/08/18 12:54 [facility] (Rec: 11/08/18 13:07 [facility] [id number]) PT Summary Assessment and Plan Summary Progress Towards Goals Slow Progress due to Pain Slow Progress due to Medical Issues Slow Progress due to Activity Tolerance Assessment Summary Pt's focus on pain from ulcers and has little interest in maintaining or increasing of strength/endurance. Needs encouragement to follow through with treatment. Goals Days to Meet Goals 3 Frequency of Treatment Frequency Of Treatment Twice a Day Treatment Plan Physical Therapy Treatment Plan Bed Mobility Training Transfer Training Gait Training Therapeutic Exercise Balance Retraining Recommendations To Nursing Amount of Assist Needed 1 Person Assist Discharge Recommendations PT Discharge Recommendations SNF Rehab
--- NOTE | 2018-11-08 13:37 | PC.NURSE ---
Addendum entered by Guillaume Ventura R.N. 11/08/18 15:29: Dr. Henry on rounds at bedside. Reported pt with borderline low BP. Reported excessive drowsiness today. Reported wound status. No new orders at this time. Original Note: Pt mostly sleeping this shift. Drowsy but rousable to verbal stimuli. OOB to BSC this AM. Dsgs noted to be loose and saturated with serosang drainage. Removed dsgs and cleansed with sterile NS, pat dry, and applied dsgs as ordered. Placement of dsgs difficult r/t pt inability to maintain standing position for greater than 30 seconds at a time. Pt becomes tearful during wound care reporting pain but displays flacc score of 0 once back to bed. Assisted pt back to bed and noted dsgs that are just applied are now again loose. Called to wound care clinic for clarification of orders as current dsgs are ineffective. Wound clinic states they will be here around lunch time to assess. Wound care team rounded at 1300. Reported difficulty with current wound mgmt and keeping dsgs in place. Also reported need for dsg components that are currently ordered (we are not stocked with some of the items). Awaiting new orders.
--- NOTE | 2018-11-08 14:34 | PT.IPTN ---
Current Diagnoses Pressure ulcer of left buttock, stage 2 (11/03/18) Surgery Performed Operation Date: 11/03/18 15:30 Actual Procedures p Incision and Drainage upper bilateral legs-POSTERIOR(Bilateral) - Yuliet Pratt MD Physical Therapy Treatment Note M2 PT-IP Current Condition Start: 11/07/18 15:13 Freq: NEEDED Status: Active Protocol: Document 11/07/18 10:00 [facility] (Rec: 11/07/18 15:55 [facility] [id number]) Physical Therapy Current Condition Current Condition Evaluation Date 11/07/18 Treatment Diagnosis Recurring decubitus ulcers Weight Bearing Status Weight Bearing Status Full Weight Bearing M3 PT-IP Subjective Start: 11/07/18 15:13 Freq: NEEDED Status: Active Protocol: Document 11/08/18 14:32 [facility] (Rec: 11/08/18 14:33 [facility] [id number]) Subjective Physical Therapy Visit Type Type Treatment Note Visit Start Time 14:32 Notes Pt refusing treatment stating he is in too much pain. M4 PT-IP Mobility and Gait Start: 11/07/18 15:13 Freq: NEEDED Status: Active Protocol: Document 11/08/18 12:54 [facility] (Rec: 11/08/18 13:07 [facility] [id number]) PT-Transfer Assessment Sit to and From Stand Sit to and from Stand Contact Guard Assistance 1 Person Assistance Equipment Transfer Assistive Device Front Wheeled Walker Orthotic/Prosthetic Devices or Brace: No Transfers Transfer Destination Bedside Commode Transfer Ability Level of Assist Contact Guard Assistance 1 Person Assistance Comments Mobility Comments CGA to SBA to and from sitting . Had pt stand from commode walk to sink where commode was placed for him to sit and perform hygiene. Pt then able to walk back to bed for assist with dressing. Gait Assessment Gait Gait Assistance Required: Contact Guard Assist 1 Person Assist Distance (Feet) 10 Assistive Devices Assistive Device Front Wheeled Walker Gait Deviations General Gait Pattern Decreased Stride Length Decreased Feet Clearance Flexed Trunk Wide Based Gait Factors Limiting Gait Function Factors Limiting Gait Function Abnormal Tonal Influences Decreased Activity Tolerance Decreased Sensation Decreased Strength Incoordination Limited Range of Motion Pain Poor Balance Respiratory Distress M5 PT-IP Objective Assessments Start: 11/07/18 15:13 Freq: NEEDED Status: Active Protocol: Document 11/07/18 10:00 [facility] (Rec: 11/07/18 15:55 [facility] [id number]) Orientation Orientation/Cognition Orientation Name Place Language Function Ability Garbled Speech Comments Fades in and out of alertness. Gross Range of Motion Upper Extremity ROM Assessment Within Functional Limits Lower Extremity ROM Assessment Bilaterally Impaired Impairments Excessive edema into BLEs Strength Upper Extremity Strength Assessment Within Functional Limits Comments Strength Comments LE strength difficult to assess due to pain from ulcers . Has functional strength to walk short distances with FWW. Sensation Assessment Sensation Gross Sensation WNL Muscle Tone Muscle Tone WNL Yes M6 PT-IP Treatment Start: 11/07/18 15:13 Freq: NEEDED Status: Active Protocol: Document 11/07/18 14:40 [facility] (Rec: 11/07/18 16:07 [facility] [id number]) Physical Therapy Treatment Exercises Exercises Ankle Pumps Quad Sets M7 PT-IP Assessment and Plan Start: 11/07/18 15:13 Freq: NEEDED Status: Active Protocol: Document 11/08/18 12:54 [facility] (Rec: 11/08/18 13:07 [facility] [id number]) PT Summary Assessment and Plan Summary Progress Towards Goals Slow Progress due to Pain Slow Progress due to Medical Issues Slow Progress due to Activity Tolerance Assessment Summary Pt's focus on pain from ulcers and has little interest in maintaining or increasing of strength/endurance. Needs encouragement to follow through with treatment. Goals Days to Meet Goals 3 Frequency of Treatment Frequency Of Treatment Twice a Day Treatment Plan Physical Therapy Treatment Plan Bed Mobility Training Transfer Training Gait Training Therapeutic Exercise Balance Retraining Recommendations To Nursing Amount of Assist Needed 1 Person Assist Discharge Recommendations PT Discharge Recommendations SNF Rehab
--- NOTE | 2018-11-08 16:51 | PC.NURSE ---
Wound Consult Note with Dr. Coral Moncada and I went up to see Babatunde but we were told that he just had his dressing change so we did not see patient. We did open his door and saw that he was sleeping. We spoke to Lauryn, Care Management. Lauryn is working on placement for Babatunde and it is difficult to find placement since Babatunde's dressing are not staying intact for 24 hours. Placement would be easier if Babatunde's dressing could be changed daily not every time he moves out of bed. After we spoke with Lauryn, we spoke with Babatunde's day nurse, Cristine. She states that his dressings are not staying on every time he gets out of bed or shifts in bed. She states that he get out of bed to void and he gets out of bed to have his dressings changed. Cristine states that he can only stand for a minute or less before he has to sit down which makes this a very time consuming procedure and a tiring procedure for Babatunde. Dr. Moncada and I discussed different options for wound care. We are looking into negative pressure, specifically a SNAP. The SNAP would provided 125mmHg of negative pressure and contain drainage. It is portable and does not use a battery for operation. He would need to have a SNAP for both posterior leg wounds and we are not sure if the SNAP dressing would stand up to the sheering involved when Babatunde gets in and out of bed as this is most likely how these would developed. Dr Moncada and I also discussed using the [employer] Wound Vac. This is less portable and it would need to be bridged so that one [employer] Wound Vac pump could be used. Again we worry about the integrity of the dressing keeping a seal with getting in and out of bed. If either one of these (NPWT) negative pressure wound therapy devices were used and he was transferred to SNF, the SNF may end up using a different (NPWT) as each facility has different contracts with DME that supple the NPWT. I would like to try the SNAP NPWT with some accessories to keep the dressing intact such as using an Ioban Drape ( antimicrobial drape) which can be place well over the SNAP dressing and conform to body contours. With a NPWT dressing, if we can keep its integrity, would contain drainage, decrease dressing days to 2-3 times a week and prevent less strain and discomfort for Babatunde as well as promote granulation faster than a conventional dressing change. Dr. Moncada and I will return tomorrow, November 09 to assess Babatunde's wounds and NPWT placement.
--- NOTE | 2018-11-08 17:04 | CM.DPC ---
DCP/continued: Reviewed chart. FLAKE [employer] HELPER attempted call to [facility] social work administrator and had to leave . Per message they will not be back in till 11-15-18. Placed call to [facility] requesting they review for admit without multiple dressing changes q day. Spoke with Kiersten from wound care and she reports that they will consider placing wound vac. Dr. Henry made aware of difficulty with placement. May need to broaden search to [place] area. Patient difficult to place secondary to weight, non-compliance, and substance abuse. P: Pending. JOSÉ LUIS Noriega
--- NOTE | 2018-11-08 17:57 | P.PN_ITS ---
Subjective Date Patient Seen: 11/08/18 Interval history: Babatunde Fitzgerald is a 38-year-old male with a past medical history significant for morbid obesity (BMI 80), asthma on chronic prednisone, obesity hypoventilation syndrome, RAJESH, chronic pain with methadone dependence, and chronic stage II decubitus pressure ulcerations of scrotum and posterior thighs who presented for increased pain and drainage of stage II decubitus pressure ulcerations of posterior thighs. The patient is resting in bed comfortably. He continues to be somnolent and appears overmedicated in regard to pain medication which is typical for him. He denies shortness of breath, chest pain, abdominal pain, nausea, vomiting, fever, chills, dysuria, diarrhea or constipation. He endorses pain regarding his posterior thigh and scrotal ulcers. He continues to have significant serosanguineous drainage from posterior thigh ulcerations for which wound care has looked at today and are considering a wound VAC. He is voiding and eliminating without difficulty. He is up ambulating very minimally with assistance. Exam Vital Signs (past 8 hours): - 11/08/18 09:59 11/08/18 11:35 11/08/18 12:00 Temperature 98.3 F Pulse Rate 90 Respiratory Rate 22 Blood Pressure 90/43 L 97/49 L Pulse Oximetry 92 91 11/08/18 13:39 11/08/18 16:18 11/08/18 16:57 Temperature 98.8 F Pulse Rate 91 H 94 H 87 Respiratory Rate 14 16 Blood Pressure 108/50 L 104/55 L Pulse Oximetry 91 93 Oxygen Delivery Method Room Air Oxygen Flow Rate 2 Narrative Exam Narrative: General: Young morbidly obese gentleman lying in bed and in no acute distress, well-developed, well-nourished, somnolent and appears over-sedated. HEENT: Normocephalic, atraumatic. External ears without defect. Pupils equal, round, and reactive to light. Anicteric sclerae, moist conjunctivae, and no lid lag. Neck: Supple with full range of motion. No lymphadenopathy or thyromegaly. Cardiovascular: Heart sounds distant but appear regular rate and rhythm without murmurs, rubs, or gallops appreciated. Pulmonary: Clear to auscultation bilaterally without crackles, wheezes, or rhonchi. Normal respiratory effort with no use of accessory muscles. Abdomen: Soft, obese, bowel sounds present, nontender, nondistended. No hepatosplenomegaly or masses appreciated. Extremities: No clubbing or cyanosis. Brawny edema to knees bilaterally. Skin: Normal temperature, turgor, and texture; several stage II pressure ulcers on scrotum and posterior thighs with significant serosanguineous drainage. Neurological: Cranial nerves grossly intact. Psychiatric: Depressed mood and flat affect. Somnolent and overly sedated. Poor insight into disease process. Objective Labs Result Diagrams: 11/08/18 05:25 11/08/18 05:25 Labs: Laboratory Results - last 24 hr 11/08/18 11/08/18 05:25 05:25 WBC 2.7 L RBC 3.09 L Hgb 7.8 L Hct 24.8 L MCV 80.3 MCH 25.3 L MCHC 31.5 RDW 16.5 H Plt Count 160 Neut % (Auto) 44.1 L Lymph % (Auto) 43.8 H [place] % (Auto) 10.0 Eos % (Auto) 1.7 L Baso % (Auto) 0.4 Neut # (Auto) 1200 L Lymph # (Auto) 1200 [place] # (Auto) 300 Eos # (Auto) 0 Baso # (Auto) 0 Sodium 137 Potassium 3.8 Chloride 100 Carbon Dioxide 35 H BUN 4 L Creatinine 0.60 L Estimated GFR > 60.0 BUN/Creatinine Ratio 6.7 Glucose 78 Calcium 7.4 L Magnesium 2.3 Assessment & Plan Assessment & Plan narrative: Babatunde Fitzgerald is a 38-year-old male with a past medical history significant for morbid obesity (BMI 80), asthma on chronic prednisone, obesity hypoventilation syndrome, RAJESH, chronic pain with methadone dependence, and chronic stage II decubitus pressure ulcerations of scrotum and posterior thighs who presented for increased pain and drainage of stage II decubitus pressure ulcerations of posterior thighs. 1. Acute on chronic stage II decubitus pressure ulcerations of posterior thighs, status post debridement, present on admission. Active. -Post-debridement day #3 by General Surgery. Discussed the patient again with infectious disease Dr. Cotton at [facility] who recommended Augmentin which will cover MSSA, strep and acinobacter for a total of [address] on a probiotic as well. Discussed lack there of objective findings for infection for which Dr. Cotton reports wound infections sometimes will not produce fever and WBC, in addition, the patient is immunocompromised on prednisone chronically and may not mount as robust of infectious picture. She recommends assessing wounds appearance to discern whether they are infected or not. -Consulted wound care who plan to possibly place a wound VAC due to significant mount of serosanguineous drainage. -His wound care management is an ongoing [place] as patient is noncompliant with follow-up to wound care clinic and is unable to take care of himself adequately at home. 2. Anemia of chronic disease, present on admission. Stable. -Continue on Iron and vitamin-C. -Hemoglobin and hematocrit stable. No overt signs of bleeding. Pressure ulcerations are draining serosanguinous as above. -Monitor H&H daily. Transfusion goal < 7.0. 3. Chronic pain with opiate dependence, present on admission. Stable. -Decreased dose of Methadone to his clinic dose of 85 mg daily due to over sedation (recently decreased to 85 mg outpatient but reported 95 mg on admission. Plan to work with PCP outpatient to continue taper down). -His methadone dependence is due to history of opioid dependence. 4. Depression and anxiety, chronic, present on admission. Stable. -Continue home Duloxetine and Olanzapine 15 mg daily not 20 mg. Not on lorazepam as an outpatient. 5. Pulmonary hypertension and right sided CHF, chronic and secondary to morbid obesity, OHS, RAJESH, and asthma, chronic, present on admission. Stable. -Continue prednisone AT 15 mg with 5 mg taper weekly per PCP Dr. Hernández, albuterol as needed, Advair and CPAP per RT. -Echocardiogram demonstrated right ventricle is moderate to severely dilated with moderately reduced right ventricular systolic function with severe biatrial enlargement 6. Morbid obesity, chronic, present on admission. Stable. -BMI 80 on admission. -Mobilize out of bed as much as he can tolerate. -Limit snacks to 2 per day and follow a heart healthy diet. NO CHIPS, JUICE, POPSICLES. -Patient will benefit from slow taper off prednisone and decrease methadone to lowest possible dose to treat pain. 7. Postoperative hypoxemia due to prolonged sedation, not present on admission. Resolved. -No longer on supplemental oxygen. Disposition: Likely to discharge in 1-2 days to longterm facility versus home with home health for ongoing wound management once wound drainage has been addressed and improved. Quality VTE Deep Vein Thrombosis/Pulmonary Embolism Present on Admission: No
--- NOTE | 2018-11-08 19:38 | PC.NURSE ---
Addendum entered by Miriam Sanders R.N. 11/08/18 22:48: Pt assisted to BSC. Moaning at this time. Med for discomfort. Condition remans essentially unchanged. Call light w/in reach. Continue w/plan of care. Original Note: Pt resting quietly this afternoon. Arouses easily to verbal commands. Denies discomfort. HL RFA intact/patent. Ulcers on scrotum and buttocks continue to drain serous aqueous Denies equest at this time. Call light w/in reach, calls appropriately for needs.
[2018-11-08] MEDS: AMOXICILLIN/CLAV 875/125 MG 1 TAB PO (20:43)
[2018-11-08] MEDS: ACETAMINOPHEN 325 MG TABLET 650 MG PO (22:47)
[2018-11-09] VITALS (13 sets, daily range): BP systolic 93–115; BP diastolic 48–64; PULSE 83–106; RESP 16–24; TEMP 36.3–36.8; O2SAT 87–97
[2018-11-09] MEDS: FLUTICASONE/SALMETEROL 500/50 14 PUFF DISKUS INH ×2 (05:31→17:49)
[2018-11-09 06:22] LABS: Basophils Absolute Auto 0 /uL (0-100); Basophils Percent Auto 0.2 % (0-2); Eosinophils Absolute Auto 0 /uL (0-450); Hematocrit 25.8 % (41-53); Hemoglobin 7.9 g/dL (13.5-17.5); Lymphocytes Absolute Auto 1500 /uL (1100-4500); Lymphocytes Percent Auto 38.6 % (25-40); Mean Corpuscular HGB Conc 30.7 % (30-36); Mean Corpuscular Hemoglobin 24.9 PG (26-34); Mean Corpuscular Volume 81.2 fL (80-100); Monocytes Absolute Auto 400 /uL (0-900); Monocytes Percent Auto 10.7 % (3-14); Neutrophils Absolute Auto 1900 /uL (1500-7000); Neutrophils Percent Auto 49.5 % (50-75); Platelet Count 206 X10^3/uL (150-400); Red Blood Cell Count 3.18 X10^6/uL (4.5-5.9); Red Cell Distribution Width 16.6 % (11.6-14.8); White Blood Cell Count 3.8 X10^3/uL (4.5-11.0)
--- NOTE | 2018-11-09 06:39 | PC.NURSE ---
NOC SHIFT Patient sleeping in bed. Patient using 2L NC oxygen while asleep. Patient does not move much or want to be. Patient stated multiple times throughout shift that he did not need to urinate. Patient encouraged at 0600 and 0630 again to get up to BSC and patient refused. Bladder scan showed 0mls in bladder but CYBER FORENSICS ANALYST states it wouldn't be accurate due to patient large size. Will continue to monitor.
[2018-11-09 06:40] LABS: Add Manual Diff / Slide Review SLIDE REVIEW; Alanine Aminotransferase 17 IU/L (21-72); Albumin 2.4 g/dL (3.5-5.0); Albumin Globulin Ratio 0.8 (1.0-2.8); Alkaline Phosphatase 62 U/L (38-126); Aspartate Aminotransferase 13 IU/L (17-59); Bilirubin Total 0.2 mg/dL (0.2-1.3); Blood Urea Nitrogen 4 mg/dL (9-20); Calcium 7.7 mg/dL (8.4-10.2); Carbon Dioxide 35 mmol/L (22-32); Chloride 99 mmol/L (98-107); Estimated Glomerular Filt Rate > 60.0 mL/min (>60); Globulin 3.2 g/dL (1.7-4.1); Glucose 87 mg/dL (70-100); HEMOLYSIS < 15 (0-50); Potassium 3.5 mmol/L (3.4-5.1); Sodium 138 mmol/L (137-145); Total Protein 5.6 g/dL (6.3-8.2)
--- NOTE | 2018-11-09 06:57 | PC.NURSE ---
PT refused to go to the bathroom. He said he did not have to go. I let the RN know and I bladder scanned him but it was hard to get a reading on him due to him being over weight so reading is inaccurate.
[2018-11-09 07:08] LABS: Procalcitonin < 0.05 ng/mL (<0.5)
[2018-11-09 08:34] LABS: Anisocytosis 1+; Hypochromasia 1+; Poikilocytosis 1+
[2018-11-09] MEDS: METHADONE 10 MG TABLET 85 MG PO (09:31)
[2018-11-09] MEDS: AMOXICILLIN/CLAV 875/125 MG 1 TAB PO ×2 (10:14→21:20)
[2018-11-09] MEDS: DULOXETINE 30 MG CAPSULE PO (10:14)
[2018-11-09] MEDS: ENOXAPARIN 30 MG/0.3 ML SYRINGE SUBCUT ×2 (10:16→21:04)
[2018-11-09] MEDS: OLANZapine 2.5 MG TABLET 15 MG PO (10:17)
[2018-11-09] MEDS: GABAPENTIN 300 MG CAPSULE PO ×3 (10:18→21:05)
[2018-11-09] MEDS: SODIUM CHLORIDE 0.9% FLUSH 10 ML IV ×2 (10:19→21:20)
[2018-11-09] MEDS: ACETAMINOPHEN 325 MG TABLET 650 MG PO (10:30)
--- NOTE | 2018-11-09 10:32 | OT.IP.TRT ---
Current Diagnoses Pressure ulcer of left buttock, stage 2 (11/03/18) Surgery Performed Operation Date: 11/03/18 15:30 Actual Procedures p Incision and Drainage upper bilateral legs-POSTERIOR(Bilateral) - Yuliet Pratt MD Occupational Therapy Treatment Note M2 OT-IP Current Condition Start: 11/07/18 16:03 Freq: Status: Active Protocol: Document 11/07/18 10:00 [facility] (Rec: 11/07/18 16:58 [facility] [id number]) Occupational Therapy Current Condition Current Condition Evaluation Date 11/07/18 Treatment Diagnosis Chronic ulceration on perineum sacrum and scrotal areas Diagnosis Onset Date 11/03/18 M3 OT- IP Subjective and Pain Start: 11/07/18 16:03 Freq: Status: Active Protocol: Document 11/09/18 10:32 [facility] (Rec: 11/09/18 10:34 [facility] [id number]) OT- Subjective Occupational Therapy Visit Type Type Administrative Note Visit Start Time 10:30 Notes OT tx attempted. Pt moaning and crying out in pain. RN reports he has had dressing change and multiple trips up to [facility] this AM. Will hold OT at this time and attempt again later as schedule permits. No charge.
--- NOTE | 2018-11-09 10:51 | PT.IPTN ---
Current Diagnoses Pressure ulcer of left buttock, stage 2 (11/03/18) Surgery Performed Operation Date: 11/03/18 15:30 Actual Procedures p Incision and Drainage upper bilateral legs-POSTERIOR(Bilateral) - Yuliet Pratt MD Physical Therapy Treatment Note M2 PT-IP Current Condition Start: 11/07/18 15:13 Freq: NEEDED Status: Active Protocol: Document 11/07/18 10:00 [facility] (Rec: 11/07/18 15:55 [facility] [id number]) Physical Therapy Current Condition Current Condition Evaluation Date 11/07/18 Treatment Diagnosis Recurring decubitus ulcers Weight Bearing Status Weight Bearing Status Full Weight Bearing M3 PT-IP Subjective Start: 11/07/18 15:13 Freq: NEEDED Status: Active Protocol: Document 11/09/18 10:50 [facility] (Rec: 11/09/18 10:51 [facility] [id number]) Subjective Physical Therapy Visit Type Notes Hold per RN d/t wound care and excessive pain. Will attempt to see this afternoon. M4 PT-IP Mobility and Gait Start: 11/07/18 15:13 Freq: NEEDED Status: Active Protocol: Document 11/08/18 12:54 [facility] (Rec: 11/08/18 13:07 [facility] [id number]) PT-Transfer Assessment Sit to and From Stand Sit to and from Stand Contact Guard Assistance 1 Person Assistance Equipment Transfer Assistive Device Front Wheeled Walker Orthotic/Prosthetic Devices or Brace: No Transfers Transfer Destination Bedside Commode Transfer Ability Level of Assist Contact Guard Assistance 1 Person Assistance Comments Mobility Comments CGA to SBA to and from sitting . Had pt stand from commode walk to sink where commode was placed for him to sit and perform hygiene. Pt then able to walk back to bed for assist with dressing. Gait Assessment Gait Gait Assistance Required: Contact Guard Assist 1 Person Assist Distance (Feet) 10 Assistive Devices Assistive Device Front Wheeled Walker Gait Deviations General Gait Pattern Decreased Stride Length Decreased Feet Clearance Flexed Trunk Wide Based Gait Factors Limiting Gait Function Factors Limiting Gait Function Abnormal Tonal Influences Decreased Activity Tolerance Decreased Sensation Decreased Strength Incoordination Limited Range of Motion Pain Poor Balance Respiratory Distress M5 PT-IP Objective Assessments Start: 11/07/18 15:13 Freq: NEEDED Status: Active Protocol: Document 11/07/18 10:00 [facility] (Rec: 11/07/18 15:55 NFW [id number]) Orientation Orientation/Cognition Orientation Name Place Language Function Ability Garbled Speech Comments Fades in and out of alertness. Gross Range of Motion Upper Extremity ROM Assessment Within Functional Limits Lower Extremity ROM Assessment Bilaterally Impaired Impairments Excessive edema into BLEs Strength Upper Extremity Strength Assessment Within Functional Limits Comments Strength Comments LE strength difficult to assess due to pain from ulcers . Has functional strength to walk short distances with FWW. Sensation Assessment Sensation Gross Sensation WNL Muscle Tone Muscle Tone WNL Yes M6 PT-IP Treatment Start: 11/07/18 15:13 Freq: NEEDED Status: Active Protocol: Document 11/07/18 14:40 [facility] (Rec: 11/07/18 16:07 NF [id number]) Physical Therapy Treatment Exercises Exercises Ankle Pumps Quad Sets M7 PT-IP Assessment and Plan Start: 11/07/18 15:13 Freq: NEEDED Status: Active Protocol: Document 11/08/18 12:54 [facility] (Rec: 11/08/18 13:07 [facility] [id number]) PT Summary Assessment and Plan Summary Progress Towards Goals Slow Progress due to Pain Slow Progress due to Medical Issues Slow Progress due to Activity Tolerance Assessment Summary Pt's focus on pain from ulcers and has little interest in maintaining or increasing of strength/endurance. Needs encouragement to follow through with treatment. Goals Days to Meet Goals 3 Frequency of Treatment Frequency Of Treatment Twice a Day Treatment Plan Physical Therapy Treatment Plan Bed Mobility Training Transfer Training Gait Training Therapeutic Exercise Balance Retraining Recommendations To Nursing Amount of Assist Needed 1 Person Assist Discharge Recommendations PT Discharge Recommendations SNF Rehab
--- NOTE | 2018-11-09 10:52 | PC.NURSE ---
AM NOTE - pt awakens easily for breakfast, declines, states he just wants lunch and ret to sleep, later am financial institution vice president assist in to bsc w/void, when pt oob his posterior thigh wounds had become uncovered from the earlier adhesive dressings that had pilled and rolled, bright pink wound beds with active serosang drainage, his buttock, scrotum and thighs were cleaned, the wound beds rinsed with normal saline and as we do not have any acquacel ag dsg materials here on floor, per discussion with coordinator Keely, exudry coverings were placed with clear dsg over, allevyn dsgs x2 over the buttock wounds and surrounding areas were cleaned of bits of adhesive, dried and protective ointment applied to surrounding skin, pt can only stand minimally for the procedure and tires frequently, ret to bed and during the wound cleaning and after, the pt was crying and moaning states he has restless legs, the pt was given his methadone prior to the dsgs and given 650mg po tylenol after, discussed which meds he agreed to take now, ra mid 80's, replaced nc at 1l and sat incr 94%
[2018-11-09] MEDS: predniSONE 5 MG TABLET 15 MG PO (12:06)
--- NOTE | 2018-11-09 14:49 | PT.IPTN ---
Current Diagnoses Pressure ulcer of left buttock, stage 2 (11/03/18) Surgery Performed Operation Date: 11/03/18 15:30 Actual Procedures p Incision and Drainage upper bilateral legs-POSTERIOR(Bilateral) - Yuliet Pratt MD Physical Therapy Treatment Note M2 PT-IP Current Condition Start: 11/07/18 15:13 Freq: NEEDED Status: Active Protocol: Document 11/07/18 10:00 [facility] (Rec: 11/07/18 15:55 NFW [id number]) Physical Therapy Current Condition Current Condition Evaluation Date 11/07/18 Treatment Diagnosis Recurring decubitus ulcers Weight Bearing Status Weight Bearing Status Full Weight Bearing M3 PT-IP Subjective Start: 11/07/18 15:13 Freq: NEEDED Status: Active Protocol: Document 11/09/18 14:48 SA (Rec: 11/09/18 14:49 SA [id number]) Subjective Physical Therapy Visit Type Type Patient Refusal Notes Pt refused PT this afternoon, citing too much pain. M4 PT-IP Mobility and Gait Start: 11/07/18 15:13 Freq: NEEDED Status: Active Protocol: Document 11/08/18 12:54 [facility] (Rec: 11/08/18 13:07 NFW [id number]) PT-Transfer Assessment Sit to and From Stand Sit to and from Stand Contact Guard Assistance 1 Person Assistance Equipment Transfer Assistive Device Front Wheeled Walker Orthotic/Prosthetic Devices or Brace: No Transfers Transfer Destination Bedside Commode Transfer Ability Level of Assist Contact Guard Assistance 1 Person Assistance Comments Mobility Comments CGA to SBA to and from sitting . Had pt stand from commode walk to sink where commode was placed for him to sit and perform hygiene. Pt then able to walk back to bed for assist with dressing. Gait Assessment Gait Gait Assistance Required: Contact Guard Assist 1 Person Assist Distance (Feet) 10 Assistive Devices Assistive Device Front Wheeled Walker Gait Deviations General Gait Pattern Decreased Stride Length Decreased Feet Clearance Flexed Trunk Wide Based Gait Factors Limiting Gait Function Factors Limiting Gait Function Abnormal Tonal Influences Decreased Activity Tolerance Decreased Sensation Decreased Strength Incoordination Limited Range of Motion Pain Poor Balance Respiratory Distress M5 PT-IP Objective Assessments Start: 11/07/18 15:13 Freq: NEEDED Status: Active Protocol: Document 11/07/18 10:00 [facility] (Rec: 11/07/18 15:55 NFW [id number]) Orientation Orientation/Cognition Orientation Name Place Language Function Ability Garbled Speech Comments Fades in and out of alertness. Gross Range of Motion Upper Extremity ROM Assessment Within Functional Limits Lower Extremity ROM Assessment Bilaterally Impaired Impairments Excessive edema into BLEs Strength Upper Extremity Strength Assessment Within Functional Limits Comments Strength Comments LE strength difficult to assess due to pain from ulcers . Has functional strength to walk short distances with FWW. Sensation Assessment Sensation Gross Sensation WNL Muscle Tone Muscle Tone WNL Yes M6 PT-IP Treatment Start: 11/07/18 15:13 Freq: NEEDED Status: Active Protocol: Document 11/07/18 14:40 [facility] (Rec: 11/07/18 16:07 NFW [id number]) Physical Therapy Treatment Exercises Exercises Ankle Pumps Quad Sets M7 PT-IP Assessment and Plan Start: 11/07/18 15:13 Freq: NEEDED Status: Active Protocol: Document 11/08/18 12:54 [facility] (Rec: 11/08/18 13:07 NFW [id number]) PT Summary Assessment and Plan Summary Progress Towards Goals Slow Progress due to Pain Slow Progress due to Medical Issues Slow Progress due to Activity Tolerance Assessment Summary Pt's focus on pain from ulcers and has little interest in maintaining or increasing of strength/endurance. Needs encouragement to follow through with treatment. Goals Days to Meet Goals 3 Frequency of Treatment Frequency Of Treatment Twice a Day Treatment Plan Physical Therapy Treatment Plan Bed Mobility Training Transfer Training Gait Training Therapeutic Exercise Balance Retraining Recommendations To Nursing Amount of Assist Needed 1 Person Assist Discharge Recommendations PT Discharge Recommendations SNF Rehab
--- NOTE | 2018-11-09 17:43 | P.PN_ITS ---
Subjective Date Patient Seen: 11/09/18 Interval history: Babatunde Fitzgerald is a 38-year-old male with a past medical history significant for morbid obesity (BMI 80), asthma on chronic prednisone, obesity hypoventilation syndrome, RAJESH, chronic pain with methadone dependence, and chronic stage II decubitus pressure ulcerations of scrotum and posterior thighs who presented for increased pain and drainage of stage II decubitus pressure ulcerations of posterior thighs. The patient is resting in bed comfortably. He is more awake and alert today with the decrease in his methadone but does nod off very easily. Wound care nurse Kiersten was present in the room and addressing his wound management, specifically management of significant drainage from wounds. During wound assessment the patient was scratching at his buttock and made a several superficial excoriations/wounds on right buttock. He denies shortness of breath, chest pain, abdominal pain, nausea, vomiting, fever, chills, dysuria, diarrhea or constipation. He endorses pain regarding his posterior thigh and scrotal ulcers. He is voiding and eliminating without difficulty. He is up ambulating very minimally with assistance. Exam Vital Signs (past 8 hours): - 11/09/18 10:37 11/09/18 10:38 11/09/18 13:43 Temperature 97.8 F Pulse Rate 106 H Respiratory Rate 18 Blood Pressure 93/54 L Pulse Oximetry 91 94 97 11/09/18 16:18 Temperature 97.8 F Pulse Rate 92 H Respiratory Rate 16 Blood Pressure 100/57 L Pulse Oximetry 93 Oxygen Delivery Method Room Air,Nasal Cannula Oxygen Flow Rate 2 Narrative Exam Narrative: General: Young morbidly obese gentleman lying in bed and in no acute distress, well-developed, well-nourished, somnolent and appears over-sedated. HEENT: Normocephalic, atraumatic. External ears without defect. Pupils equal, round, and reactive to light. Anicteric sclerae, moist conjunctivae, and no lid lag. Neck: Supple with full range of motion. No lymphadenopathy or thyromegaly. Cardiovascular: Heart sounds distant but appear regular rate and rhythm without murmurs, rubs, or gallops appreciated. Pulmonary: Clear to auscultation bilaterally without crackles, wheezes, or rhonchi. Normal respiratory effort with no use of accessory muscles. Abdomen: Soft, obese, bowel sounds present, nontender, nondistended. No hepatosplenomegaly or masses appreciated. Extremities: No clubbing or cyanosis. Brawny edema to knees bilaterally. Skin: Normal temperature, turgor, and texture; 2 stage II pressure ulcers on scrotum and 2 stage II pressure ulcers on posterior thighs bilaterally (please see wound care note) with significant serosanguineous drainage but pink and beefy and do not appear to be infected with mild granulation tissue in place. Neurological: Cranial nerves grossly intact. Psychiatric: Depressed mood and flat affect. Alert but nods off easily. Poor insight into disease process. Mild cognitive impairment likely related to methadone use. Objective Labs Result Diagrams: 11/09/18 05:35 11/09/18 05:35 Labs: Laboratory Results - last 24 hr 11/09/18 11/09/18 11/09/18 05:35 05:35 05:35 WBC 3.8 L RBC 3.18 L Hgb 7.9 L Hct 25.8 L MCV 81.2 MCH 24.9 L MCHC 30.7 RDW 16.6 H Plt Count 206 Neut % (Auto) 49.5 L Lymph % (Auto) 38.6 Randolph % (Auto) 10.7 Eos % (Auto) 1.0 L Baso % (Auto) 0.2 Neut # (Auto) 1900 Lymph # (Auto) 1500 Randolph # (Auto) 400 Eos # (Auto) 0 Baso # (Auto) 0 RBC Morphology Not Reportable Hypochromasia 1+ H Poikilocytosis 1+ H Anisocytosis 1+ H Sodium 138 Potassium 3.5 Chloride 99 Carbon Dioxide 35 H BUN 4 L Creatinine 0.50 L Estimated GFR > 60.0 BUN/Creatinine Ratio 8.0 Glucose 87 Calcium 7.7 L Total Bilirubin 0.2 AST 13 L ALT 17 L Alkaline Phosphatase 62 Total Protein 5.6 L Albumin 2.4 L Globulin 3.2 Albumin/Globulin Ratio 0.8 L Procalcitonin < 0.05 Assessment & Plan Assessment & Plan narrative: Babatunde Fitzgerald is a 38-year-old male with a past medical history significant for morbid obesity (BMI 80), asthma on chronic prednisone, obesity hypoventilation syndrome, RAJESH, chronic pain with methadone dependence, and chronic stage II decubitus pressure ulcerations of scrotum and posterior thighs who presented for increased pain and drainage of stage II decubitus pressure ulcerations of posterior thighs. 1. Acute on chronic stage II decubitus pressure ulcerations of posterior thighs, status post debridement, present on admission. Active. -Post-debridement day #3 by General Surgery. Discussed the patient again with infectious disease Dr. Cotton at [facility] who recommended Augmentin which will cover MSSA, strep and acinobacter for a total of [address] on a probiotic as well. Discussed lack there of objective findings for infection for which Dr. Cotton reports wound infections sometimes will not produce fever and WBC, in addition, the patient is immunocompromised on prednisone chronically and may not mount as robust of infectious picture. She recommends assessing wounds appearance to discern whether they are infected or not. -Consulted wound care who plan to possibly place a wound VAC due to significant mount of serosanguineous drainage. -His wound care management is an ongoing [place] as patient is noncompliant with follow-up to wound care clinic and is unable to take care of himself adequately at home. 2. Anemia of chronic disease, present on admission. Stable. -Continue on Iron and vitamin-C. -Hemoglobin and hematocrit stable. No overt signs of bleeding. Pressure ulcerations are draining serosanguinous as above. -Monitor H&H daily. Transfusion goal < 7.0. 3. Chronic pain with opiate dependence, present on admission. Stable. -Decreased dose of Methadone to his clinic dose of 85 mg daily due to over sedation (recently decreased to 85 mg outpatient but reported 95 mg on admission. Plan to work with PCP outpatient to continue taper down). -His methadone dependence is due to history of opioid dependence. 4. Depression and anxiety, chronic, present on admission. Stable. -Continue home Duloxetine and Olanzapine 15 mg daily not 20 mg. Not on lorazepam as an outpatient. 5. Pulmonary hypertension and right sided CHF, chronic and secondary to morbid obesity, OHS, RAJESH, and asthma, chronic, present on admission. Stable. -Continue prednisone AT 15 mg with 5 mg taper weekly per PCP Dr. Hernández, albuterol as needed, Advair and CPAP per RT. -Echocardiogram demonstrated right ventricle is moderate to severely dilated with moderately reduced right ventricular systolic function with severe biatrial enlargement 6. Morbid obesity, chronic, present on admission. Stable. -BMI 80 on admission. -Mobilize out of bed as much as he can tolerate. -Limit snacks to 2 per day and follow a heart healthy diet. NO CHIPS, JUICE, POPSICLES. -Patient will benefit from slow taper off prednisone and decrease methadone to lowest possible dose to treat pain. 7. Postoperative hypoxemia due to prolonged sedation, not present on admission. Resolved. -No longer on supplemental oxygen. Disposition: Patient will need a jail facility at this point for wound VAC and continued wound management. Likely to be medically stable and ready for discharge in 1-2 days depending on placement of wound VAC by wound care. Quality VTE Deep Vein Thrombosis/Pulmonary Embolism Present on Admission: No
--- NOTE | 2018-11-09 17:45 | PC.NURSE ---
Wound Care Note Seeing Babatunde with Dr. Oliveira and here to asses wound for negative pressure placement which will most likely take place tomorrow. Right Posterior Leg wound measures 11.5x 7.7 x 1.9 cm This is a full thickness PI that was surgically debrided. The wound base has adipose tissue and beefy red granulation tissue. The wound edges are open and the sarah-wound skin is intact without redness or maceration. There is a large amount of serosanguenous drainage. Babatunde report the wound are painful and was crying out with cleaning. I cleaned his wound with Normal Saline on gauze and filled the wound with a moistened gauze and covered with an abd pad then secured with hypafix tape. The Left Posterior Leg wound measures 13 x 7.5 x 0.4. This is a full thickness PI that was surgically debrided. The wound base has beefy red granulation tissue. The edges are open and the sarah-wound skin is intact without redness or maceration. There was a moderated amount of serosanguenous dainage. I cleaned this wound with Normal Saline on gauze and covered the wound with a Normal Saline gauze lightly filled to the wound base and covered with an abd pad and secured with hypafix. The Scrotum wounds: Left scrotum wound is a full thickness PI that measures 4.7 x 2.9 x 0.3 cm. It has a beefy red granular wound base. The wound edges are open without any redness or maceration. There is a moderate amount of serosanguenous drainage. I cleaned this wound with Normal Saline on a gauze and then covered with an allevyn 4x4 border foam. Right scrotum wound is a full thickness PI that measures 7.7 x 2.8 x 0.2 cm. It has a beefy red granular wound base. The wound edges are open without any redness or maceration. There is a moderate amount of serosanguenous drainae. I cleaned the wound with Normal Saline on gauze then covered with an allevyn 4x4 border foam. Babatunde has some other smaller partial thickness open areas on his scrotum which I placed Zinc ointment. Babatunde kept scratching while I was doing his dressing change and he cause some excoriation on his left flank. His nails are long and dirty and Dr. Oliveira has requested to have his nails cut. I will speak with the Relations Coordinator at the [facility] to see if I can provided this service. KAILYN Dsouza, helped take pictures and measurements of the wounds. My plan is to review Babatunde's wound pictures with and the [employer] rep. to come up with a plan on how to place a [employer] Wound Vac in such a precarious position with two wound and a bariatric patient.
--- NOTE | 2018-11-09 17:56 | PC.NURSE ---
Addendum entered by Miriam Sanders R.N. 11/09/18 21:42: Pt appeared to sleep at intervals this evening. HL intact/patent. Condition remains essentially unchanged. Call light w/in reach, calls appropriately for needs. Continue w/plan of care. Original Note: Pt awake, wound care in room placing a new dsg. Wounds oozing drainage. Lungs diminished at bases. SpO2 95% 2L HL RFA intact/patent. Remains in bib boy bed. Call light w/in reach, call appropriately for needs.
[2018-11-10] VITALS (10 sets, daily range): BP systolic 102–132; BP diastolic 50–61; PULSE 83–97; RESP 16–20; TEMP 36.3–36.8; O2SAT 92–97
[2018-11-10] MEDS: ACETAMINOPHEN 325 MG TABLET 650 MG PO (03:12)
--- NOTE | 2018-11-10 03:16 | PC.NURSE ---
Addendum entered by Cheryl Phipps R.N. 11/10/18 06:17: Weight 154.1 kg which is down from 203.7 yesterday so bed will need to be rezeroed and weight rechecked next time patient is up. Original Note: Addendum entered by Cheryl Phipps R.N. 11/10/18 03:20: Patient complains of 5/10 pain in bilateral posterior thighs so medicated with Tylenol. Refused, again, to be repositioned. Is more awake and conversant at this time; watching TV and requesting snacks. Original Note: 0130 Patient asleep since shift change. Does arouse but answers yes/no questions and quickly falls back to sleep. Is alert and oriented. Breath sounds diminished but CTA with sat of 97% on oxygen at 1L/min. HRR. Denies nausea. Refusing to be repositioned. Is in bariatric pressure relieving bed. Dressings to posterior thighs are CDI. Moist skin in abdominal/breast folds so difficult to see excoriation. 2+ bilateral LE edema. Refusing to wear waffle boots. Fall risk score is high; unable to locate alarm on bed and patient is not wearing clothing so unable to use chair alarm so staff is monitoring closely/frequently.
[2018-11-10 06:02] LABS: Basophils Absolute Auto 0 /uL (0-100); Basophils Percent Auto 0.2 % (0-2); Eosinophils Absolute Auto 0 /uL (0-450); Hematocrit 25.9 % (41-53); Hemoglobin 7.9 g/dL (13.5-17.5); Lymphocytes Absolute Auto 1500 /uL (1100-4500); Lymphocytes Percent Auto 43.3 % (25-40); Mean Corpuscular HGB Conc 30.6 % (30-36); Mean Corpuscular Volume 81.6 fL (80-100); Monocytes Absolute Auto 400 /uL (0-900); Monocytes Percent Auto 10.4 % (3-14); Neutrophils Absolute Auto 1600 /uL (1500-7000); Neutrophils Percent Auto 45.1 % (50-75); Platelet Count 205 X10^3/uL (150-400); Red Blood Cell Count 3.18 X10^6/uL (4.5-5.9); Red Cell Distribution Width 16.8 % (11.6-14.8); White Blood Cell Count 3.5 X10^3/uL (4.5-11.0)
[2018-11-10 06:25] LABS: Add Manual Diff / Slide Review SLIDE REVIEW
--- NOTE | 2018-11-10 07:03 | P.PN_ITS ---
Subjective Date Patient Seen: 11/10/18 Interval history: Babatunde Fitzgerald is a 38-year-old male with a past medical history significant for morbid obesity (BMI 80), asthma on chronic prednisone, obesity hypoventilation syndrome, RAJESH, chronic pain with methadone dependence, and chronic stage II decubitus pressure ulcerations of scrotum and posterior thighs who presented for increased pain and drainage of stage II decubitus pressure ulcerations of posterior thighs. The patient is resting in bed comfortably. He continues to be more awake and alert with the decrease in his methadone but he does nod off very easily. He continues to report pain regarding his posterior thigh and scrotal ulcers. Wound Care planning to place wound VAC today with wound VAC Rep. He denies headache, shortness of breath, chest pain, abdominal pain, nausea, vomiting, fever, chills, dysuria, diarrhea or constipation. He is voiding and eliminating without difficulty. He is up ambulating very minimally with full assistance. Exam Vital Signs (past 8 hours): - 11/10/18 00:37 11/10/18 04:00 Temperature 97.9 F 97.5 F L Pulse Rate 97 H 83 Respiratory Rate 20 20 Blood Pressure 106/59 L 102/51 L Pulse Oximetry 97 96 Oxygen Delivery Method Nasal Cannula Oxygen Flow Rate 1 Narrative Exam Narrative: General: Young morbidly obese gentleman lying in bed and in no acute distress, well-developed, well-nourished, alert but nods off easily during mid conversation. HEENT: Normocephalic, atraumatic. External ears without defect. Pupils equal, round, and reactive to light. Anicteric sclerae, moist conjunctivae, and no lid lag. Neck: Supple with full range of motion. No lymphadenopathy or thyromegaly. Cardiovascular: Heart sounds distant but appear regular rate and rhythm without murmurs, rubs, or gallops appreciated. Pulmonary: Clear to auscultation bilaterally without crackles, wheezes, or rhonchi. Normal respiratory effort with no use of accessory muscles. Abdomen: Soft, obese, bowel sounds present, nontender, nondistended. No hepatosplenomegaly or masses appreciated. Extremities: No clubbing or cyanosis. Brawny edema to knees bilaterally. Skin: Normal temperature, turgor, and texture; 2 stage II pressure ulcers on scrotum and 2 stage II pressure ulcers on posterior thighs bilaterally (please see wound care note) with significant serosanguineous drainage but pink and beefy and do not appear to be infected with mild granulation tissue in place. Neurological: Cranial nerves grossly intact. Psychiatric: Depressed mood and flat affect. Alert but nods off easily. Poor insight into disease process. 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 Objective Labs Result Diagrams: 11/10/18 05:23 11/09/18 05:35 Labs: Laboratory Results - last 24 hr 11/09/18 11/09/18 11/10/18 05:35 05:35 05:23 WBC 3.5 L RBC 3.18 L Hgb 7.9 L Hct 25.9 L MCV 81.6 MCH 25.0 L MCHC 30.6 RDW 16.8 H Plt Count 205 Neut % (Auto) 45.1 L Lymph % (Auto) 43.3 H Colbert % (Auto) 10.4 Eos % (Auto) 1.0 L Baso % (Auto) 0.2 Neut # (Auto) 1600 Lymph # (Auto) 1500 Colbert # (Auto) 400 Eos # (Auto) 0 Baso # (Auto) 0 RBC Morphology Not Reportable Hypochromasia 1+ H Poikilocytosis 1+ H Anisocytosis 1+ H Procalcitonin < 0.05 Assessment & Plan Assessment & Plan narrative: Babatunde Fitzgerald is a 38-year-old male with a past medical history significant for morbid obesity (BMI 80), asthma on chronic prednisone, obesity hypoventilation syndrome, RAJESH, chronic pain with methadone dependence, and chronic stage II decubitus pressure ulcerations of scrotum and posterior thighs who presented for increased pain and drainage of stage II decubitus pressure ulcerations of posterior thighs. 1. Acute on chronic stage II decubitus pressure ulcerations of posterior thighs, status post debridement, present on admission. Active. -Post-debridement by General Surgery. Discussed the patient again with infectious disease Dr. Cotton at [facility] who recommended Augmentin which will cover MSSA, strep and acinobacter for a total of 10 days of antibiotics total to stop 11/13. Will place on a probiotic as well. -Consulted wound care who plan to place a wound VAC today with wound VAC Rep present due to significant serosanguineous drainage and the need for multiple supplies due to his obesity making it quite complex wound management. -His wound care management is an ongoing [place] as patient is noncompliant with follow-up to wound care clinic and is unable to take care of himself adequately at home. 2. Anemia of chronic disease, present on admission. Stable. -Continue on Iron and vitamin-C. -Hemoglobin and hematocrit stable. No overt signs of bleeding. Pressure ulcerations are draining serosanguinous as above. -Monitor H&H daily. Transfusion goal < 7.0. 3. Chronic pain with opiate dependence, present on admission. Stable. -Decreased dose of Methadone to his clinic dose of 85 mg daily due to over sedation (recently decreased to 85 mg outpatient but reported 95 mg on admission. Plan to work with PCP outpatient to continue taper down). -His methadone dependence is due to history of opioid dependence. 4. Depression and anxiety, chronic, present on admission. Stable. -Continue home Duloxetine and Olanzapine 15 mg daily not 20 mg. Not on lorazepam as an outpatient. 5. Pulmonary hypertension and right sided CHF, chronic and secondary to morbid obesity, OHS, RAJESH, and asthma, chronic, present on admission. Stable. -Continue prednisone AT 15 mg with 5 mg taper weekly per PCP Dr. Hernández, albuterol as needed, Advair and CPAP per RT. -Echocardiogram demonstrated right ventricle is moderate to severely dilated with moderately reduced right ventricular systolic function with severe biatrial enlargement 6. Morbid obesity, chronic, present on admission. Stable. -BMI 80 on admission. -Mobilize out of bed as much as he can tolerate. -Limit snacks to 2 per day and follow a heart healthy diet. NO CHIPS, JUICE, POPSICLES. -Patient will benefit from slow taper off prednisone and decrease methadone to lowest possible dose to treat pain. 7. Postoperative hypoxemia due to prolonged sedation, not present on admission. Resolved. -No longer on supplemental oxygen. Disposition: Patient will need a assisted facility at this point for wound VAC and continued wound management. Likely to be medically stable and ready for discharge in 1-2 days depending on placement of wound VAC by wound care. Quality VTE Deep Vein Thrombosis/Pulmonary Embolism Present on Admission: No
[2018-11-10 07:18] LABS: Anisocytosis 1+; Poikilocytosis 1+
[2018-11-10] MEDS: METHADONE 10 MG TABLET 85 MG PO (09:32)
[2018-11-10] MEDS: OLANZapine 2.5 MG TABLET 15 MG PO (09:35)
[2018-11-10] MEDS: DULOXETINE 30 MG CAPSULE PO (09:36)
[2018-11-10] MEDS: AMOXICILLIN/CLAV 875/125 MG 1 TAB PO ×2 (09:44→20:52)
[2018-11-10] MEDS: GABAPENTIN 300 MG CAPSULE PO ×3 (09:45→20:52)
[2018-11-10] MEDS: ASCORBIC ACID 500 MG TABLET PO (09:46)
[2018-11-10] MEDS: FERROUS SULFATE 325 MG TABLET PO (09:46)
[2018-11-10] MEDS: SODIUM CHLORIDE 0.9% FLUSH 10 ML IV ×2 (09:47→20:52)
[2018-11-10] MEDS: ENOXAPARIN 30 MG/0.3 ML SYRINGE SUBCUT ×2 (09:47→20:52)
--- NOTE | 2018-11-10 10:43 | PC.NURSE ---
Addendum entered by Kat Thao R.N. 11/10/18 13:44: MS/PAIN - PT and OT in and pt was up to bsc, after pericare, using a fww, pt was able to ambul to sink for care and then ret to bed. Pt tolerated mobilization, no crying or moaning during activity. Original Note: Addendum entered by Kat Thao R.N. 11/10/18 12:46: DIETARY - in with pt and discussed diet, pt did agree to a salad at dinner each evening with ranch dsg, kitchen called and updated. Original Note: Addendum entered by Kat Thao R.N. 11/10/18 11:42: BED - the bed was zeroed and a freeze hold to get a wt, it does appear to fluctuate, spoke to engineering regarding a bed alarm and as this is a rental bed, they do not have any info, it does not appear that there is a bed alarm and as the pt refuses clothing, a chair alarm is not set, the door remains cracked and the pt will call for assist oob. Original Note: AM NOTE - dozing, awakens easily, given scheduled pain medication this am with pudding, drank juice from tray but did not eat eggs, discussed medications, pt does decline some, standby assist up oob to bsc, dsg post thighs intact w/shadow serosang drainage, allevyn dsg intact, pt does not rich up on his feet for more than just voiding, and becomes tearful and crying when he mobilizes, states due to restless leg discomfort, ret to bed.
--- NOTE | 2018-11-10 13:37 | OT.IP.TRT ---
Current Diagnoses Pressure ulcer of left buttock, stage 2 (11/03/18) Surgery Performed Operation Date: 11/03/18 15:30 Actual Procedures p Incision and Drainage upper bilateral legs-POSTERIOR(Bilateral) - Yuliet Pratt MD Occupational Therapy Treatment Note M2 OT-IP Current Condition Start: 11/07/18 16:03 Freq: Status: Active Protocol: Document 11/07/18 10:00 CCC (Rec: 11/07/18 16:58 CCC [id number]) Occupational Therapy Current Condition Current Condition Evaluation Date 11/07/18 Treatment Diagnosis Chronic ulceration on perineum sacrum and scrotal areas Diagnosis Onset Date 11/03/18 M3 OT- IP Subjective and Pain Start: 11/07/18 16:03 Freq: Status: Active Protocol: Document 11/10/18 13:37 PJM (Rec: 11/10/18 17:25 PJM [id number]) OT- Subjective Occupational Therapy Visit Type Type Treatment Note Visit Start Time 13:00 Visit Stop Time 13:37 Notes Partial co tx with P.T. for functional mobility Occupational Therapy Visit Comments Patient/Caregiver Goals none verbalized this session OT Pain Assessment Pain When Pain Assessed During Weight Bearing Pain Present Pain Present Pain Reported Location Bilateral Upper Posterior Leg Intensity 6 Description Acute M4 OT- IP ADL's Start: 11/07/18 16:03 Freq: Status: Active Protocol: Document 11/10/18 13:37 PJM (Rec: 11/10/18 17:25 PJM [id number]) OT ADL-Grooming Comments OT Grooming Comments Pt stood leaning on sink for 1 min to wash hands. OT ADL-Oral Care Comments Oral Care Comments pt declined this session OT ADL-Dressing Comments OT Dressing Comments pt declines to wear clothes here OT ADL-Toileting General Evaluation Toileting Ability Maximum Assistance Areas Needing Assistance Perform Perineal Hygiene Devices Toileting Assistive Devices Commode Comments OT Toileting Comments Pt able to finish wiping after bowel movement without a device. Pt appears to have difficulty reaching low enough. Provided written information regarding resources for toilet paper aids to pt . This information was also provided to pt at time of last admit. He did not obtain device. M6 OT- IP Functional Cognition Start: 11/07/18 16:03 Freq: Status: Active Protocol: Document 11/10/18 13:37 PJM (Rec: 11/10/18 17:25 PJM [id number]) Cognitive Factors Limiting Selfcare Function Cognitive Ability Level of Alertness Drowsy Attention Span Ability Capable of Focused Attention Ability to Follow Commands Able to Follow One Step Commands Cognitive Comments Cognitive Assessment Comments Pt tends to keep eyes closed during conversation but states I am awake when asked. M7 OT- IP Mobility and Balance Start: 11/07/18 16:03 Freq: Status: Active Protocol: Document 11/10/18 13:37 PJM (Rec: 11/10/18 17:25 PJ [id number]) OT- Bed Mobility Assessment Rolling Type of Rolling Roll to Right Level of Assistance Standby Assistance 1 Person Assistance Bedrails Supine to Sit Supine to Sit Assist Standby Assistance Bedrails Sit to Supine Sit to Supine Assist Minimal Assistance 1 Person Assistance Scooting Scooting to Edge of Bed Standby Assistance OT-Transfer Assessment Sit to and From Stand Sit to and from Stand Standby Assistance Transfers Transfer Ability Standby Assistance Technique Transfer Destination Bedside Commode Transfer Technique pt does 180 degree turn to [facility] while hanging onto armrests of commode Devices Transfer Assistive Devices None Comments Mobility Comments pt declines gait belt or device to transfer to [facility] next to bed OT- Gait Assessment Gait Gait Assistance Required: Contact Guard Assist Distance (Feet) 16 Assistive Devices Assistive Device Front Wheeled Walker Comments Gait Ability Comments pt ambulated to sink and back with bariatric FWW; he states he uses 4WW at home OT- Balance Assessment Sitting Balance and Reactions Static Sitting Balance Ability Fair Dynamic Sitting Balance Ability Fair Standing Balance and Reactions Static Standing Balance Ability Fair M8 OT- IP Objective Assessments Start: 11/07/18 16:03 Freq: Status: Active Protocol: Document 11/10/18 13:37 PJM (Rec: 11/10/18 17:27 PJ [email or web address]) OT Strength Comments Strength Comments Pt seen for 10 reps of red theraband exercises for B shoulder abduction, unilateral elbow flex, elbow extension shoulder flex, shoulder extension and scapular protraction. M9 OT- IP Assessment and Plan Start: 11/07/18 16:03 Freq: Status: Active Protocol: Document 11/10/18 13:37 PJM (Rec: 11/10/18 17:25 PJ [id number]) OT Summary Assessment and Plan Summary OT Impairments Pain Functional Mobility Grooming Dressing Toileting Bathing Toilet Transfers Shower Transfers Progress Towards Goals Slow Progress due to Pain Slow Progress due to Medical Issues Assessment Summary Pt very cooperative with minimal pain complaints and no crying during mobility today. With encouragement, pt was able to participate in sarah care after toileting and ambulated to sink to wash hands at sink. Pt also completed 10 reps of 6 BUE red theraband exercises with good effort. Pt not safe to discharge home where he is alone most of day while girlfriend at work. Recommend SNF at d/c due to high wound care needs and for further rehab to increase indep/safety /endurance in basic self care and functional mobility. Goals Grooming Goal Standby Assistance Dressing Goal Moderate Assistance Toileting Goal Minimal Assistance Toilet Transfer Goal Independent OT-Other Goals Pt to be independent for BUE exercises with theraband to help maintain BUE strength for Adl and functional mobility needs. Days to Meet Goals 4 Treatment Plan OT Treatment Plan ADL Training Functional Cognition Training Functional Mobility Patient/Family Education Discharge Planning Other Treatment Recommendations and Next Stand by sink for grooming Treatment Focus needs with FWW. Discharge Recommendations OT Discharge Recommendations SNF Rehab Home Equipment Needs [facility]
--- NOTE | 2018-11-10 14:45 | PT.IPTN ---
Current Diagnoses Pressure ulcer of left buttock, stage 2 (11/03/18) Surgery Performed Operation Date: 11/03/18 15:30 Actual Procedures p Incision and Drainage upper bilateral legs-POSTERIOR(Bilateral) - Yuliet Pratt MD Physical Therapy Treatment Note M2 PT-IP Current Condition Start: 11/07/18 15:13 Freq: NEEDED Status: Active Protocol: Document 11/07/18 10:00 NFW (Rec: 11/07/18 15:55 NFW [id number]) Physical Therapy Current Condition Current Condition Evaluation Date 11/07/18 Treatment Diagnosis Recurring decubitus ulcers Weight Bearing Status Weight Bearing Status Full Weight Bearing M3 PT-IP Subjective Start: 11/07/18 15:13 Freq: NEEDED Status: Active Protocol: Document 11/10/18 14:26 SA (Rec: 11/10/18 14:45 SA [id number]) Subjective Physical Therapy Visit Type Type Treatment Note Visit Start Time 13:14 Visit Stop Time 13:41 Total Visit Minutes 27 Notes Pt up with OT sitting on BSC and agreeable to further therapy. Number of GREASE BUFFER Visits 1 Physical Therapy Visit Comments Patient Comments My legs still hurt Therapy Pain Assessment Pain When Pain Assessed During Mobility Pain Present Pain Present Pain Reported Location Bilateral Upper Posterior Leg Description Burning Sharp Pain Behaviors Moaning Restlessness Wincing Pain Management Techniques Modification of Treatment Re-positioning Timing of Activity with Medications M4 PT-IP Mobility and Gait Start: 11/07/18 15:13 Freq: NEEDED Status: Active Protocol: Document 11/10/18 14:26 SA (Rec: 11/10/18 14:45 [id number]) PT-Bed Mobility Assessment Sit to Supine Sit to Supine Minimal Assistance 2 Person Assistance Scooting Scooting to Edge of Bed Standby Assistance Scooting Up and Down in Bed Standby Assistance PT-Transfer Assessment Sit to and From Stand Sit to and from Stand Standby Assistance Contact Guard Assistance 1 Person Assistance Equipment Transfer Assistive Device Front Wheeled Walker Orthotic/Prosthetic Devices or Brace: No Transfers Transfer Destination Bed Bedside Commode Transfer Technique Stand Step Pivot Transfer Ability Level of Assist Contact Guard Assistance Comments Mobility Comments Bariatric FWW obtained for patient. Pt SBA-CGA with most mobility tasks except for Sit< >Supine, Min x 2 for clearing LEs over EOB. Strategies reviewed to limit shearing of posterior legs/buttock area with bed mobility so dressings stay in place. Pt not very receptive to education or changes to current mobility methods. Gait Assessment Gait Gait Assistance Required: Contact Guard Assist 1 Person Assist Distance (Feet) 16 Assistive Devices Assistive Device Front Wheeled Walker Orthotic/Prosthetic Devices or Brace: No Gait Deviations General Gait Pattern Decreased Stride Length Decreased Feet Clearance Flexed Trunk Wide Based Gait Factors Limiting Gait Function Factors Limiting Gait Function Decreased Activity Tolerance Decreased Sensation Decreased Strength Difficulty Following Directions Limited Range of Motion Pain Poor Safety Awareness Comments Gait Comments Pt walked from BSC>Sink>Bed with CGA and FWW, min cues for safety and pacing. M5 PT-IP Objective Assessments Start: 11/07/18 15:13 Freq: NEEDED Status: Active Protocol: Document 11/07/18 10:00 NFW (Rec: 11/07/18 15:55 NFW [id number]) Orientation Orientation/Cognition Orientation Name Place Language Function Ability Garbled Speech Comments Fades in and out of alertness. Gross Range of Motion Upper Extremity ROM Assessment Within Functional Limits Lower Extremity ROM Assessment Bilaterally Impaired Impairments Excessive edema into BLEs Strength Upper Extremity Strength Assessment Within Functional Limits Comments Strength Comments LE strength difficult to assess due to pain from ulcers . Has functional strength to walk short distances with FWW. Sensation Assessment Sensation Gross Sensation WNL Muscle Tone Muscle Tone WNL Yes M6 PT-IP Treatment Start: 11/07/18 15:13 Freq: NEEDED Status: Active Protocol: Document 11/10/18 14:26 SA (Rec: 11/10/18 14:45 [id number]) Physical Therapy Treatment Exercises Exercises Ankle Pumps Gluteal Sets Knee ROM Measurement bridging Education Education Provided Safety Other Treatments Other Treatment Performed Educated patient on circulation for healing, postion changes and increasing time spent standing/walking to avoid further pressure ulcer development. M7 PT-IP Assessment and Plan Start: 11/07/18 15:13 Freq: NEEDED Status: Active Protocol: Document 11/10/18 14:26 SA (Rec: 11/10/18 14:45 [id number]) PT Summary Assessment and Plan Potential Rehabilitation Potential Fair Status of Condition at Evaluation Evolving Summary Progress Towards Goals Slow Progress due to Pain Slow Progress due to Medical Issues Slow Progress due to Activity Tolerance Assessment Summary Pt very sedentary and continues to make poor personal health choices. Not receptive to education regarding increasing activity, hygiene or functional mobility. Pt limits activity today citing pain but did more than yesterday. Recommend SNF as pt repeatedly demonstrates inability to properly care for self. Frequency of Treatment Frequency Of Treatment Twice a Day Treatment Plan Physical Therapy Treatment Plan Bed Mobility Training Transfer Training Gait Training Therapeutic Exercise Balance Retraining Recommendations To Nursing Amount of Assist Needed 1 Person Assist Discharge Recommendations PT Discharge Recommendations SNF Rehab
--- NOTE | 2018-11-10 17:41 | PC.NURSE ---
Wound Nurse Consult Note [employer] Rep. here with me to review patients wounds (photos) to see if it would be possible to even use a [employer] Wound Vac. We both agreed that using a SNAP NPWT devise would not work because the dressing is too small and the drainage is too much. I need to order an adaptor ( Y connector) in order for bridging both wounds so that one pump can be used. I have a call into materials to see about getting the connector and or if they have one in stock. The [employer] rep agrees that this will be a difficult placement for the Wound Vac since the patient has a lot of sheer force when getting in and out of bed. I still recommend using a [employer] Wound Vac on both posterior wounds and bridging them to the same pump.
[2018-11-10] MEDS: predniSONE 5 MG TABLET 15 MG PO (17:49)
[2018-11-10] MEDS: FLUTICASONE/SALMETEROL 500/50 14 PUFF DISKUS INH (18:04)
[2018-11-11] VITALS (12 sets, daily range): BP systolic 95–122; BP diastolic 49–77; PULSE 87–110; RESP 18–20; TEMP 36.5–36.8; O2SAT 91–97
--- NOTE | 2018-11-11 02:19 | PC.NURSE ---
Patient has been mostly sleeping; will waken to answer yes/no questions but offers no conversation. Has very flat affect. Breath sounds diminished but CTA with sat of 93% on 1L/min oxygen per NC. HRR. Denies nausea. BT present and abdomen is soft. Uncooperative with repositioning/movement of any kind so difficult to assess skin at this time. Refuses waffle boots to feet. 2+ bilateral LE edema. Denies pain. Fall risk score is high but bariatric bed does not have an alarm and patient will not wear clothing so unable to clip a chair alarm to him; staff monitor frequently.
--- NOTE | 2018-11-11 07:42 | P.PN_ITS ---
Subjective Date Patient Seen: 11/11/18 Interval history: Babatunde Fitzgerald is a 38-year-old male with a past medical history significant for morbid obesity (BMI 80), asthma on chronic prednisone, obesity hypoventilation syndrome, RAJESH, chronic pain with methadone dependence, and chronic stage II decubitus pressure ulcerations of scrotum and posterior thighs who presented for increased pain and drainage of stage II decubitus pressure ulcerations of posterior thighs. The patient is resting in bed comfortably. He endorses nausea this morning. He is able to remember for the first time the nutritional guidance I provided for the last several days today. He continues to be more awake and alert with the decrease in his methadone but he does nod off very easily and will consider continuing to taper down. He has continued pain with his posterior thigh and scrotal ulcers. Wound Care planning to place wound VAC but waiting on special piece of equipment to be delivered. He denies headache, shortness of breath, chest pain, abdominal pain, nausea, vomiting, fever, chills, dysuria, diarrhea or constipation. He is voiding and eliminating without difficulty. He is up ambulating very minimally with full assistance. Exam Vital Signs (past 8 hours): - 11/11/18 02:07 11/11/18 06:16 Temperature 97.9 F Pulse Rate 87 Respiratory Rate 19 Blood Pressure 95/57 L Pulse Oximetry 93 93 Oxygen Delivery Method Nasal Cannula Oxygen Flow Rate 1 Narrative Exam Narrative: General: Young morbidly obese gentleman lying in bed and in no acute distress, well-developed, well-nourished, alert but nods off easily during mid conversation. HEENT: Normocephalic, atraumatic. External ears without defect. Pupils equal, round, and reactive to light. Anicteric sclerae, moist conjunctivae, and no lid lag. Several excoriations today on face. Neck: Supple with full range of motion. No lymphadenopathy or thyromegaly. Cardiovascular: Heart sounds distant but appear regular rate and rhythm without murmurs, rubs, or gallops appreciated. Pulmonary: Clear to auscultation bilaterally without crackles, wheezes, or rhonchi. Normal respiratory effort with no use of accessory muscles. Abdomen: Soft, obese, bowel sounds present, nontender, nondistended. No hepatosplenomegaly or masses appreciated. Extremities: No clubbing or cyanosis. Brawny edema to knees bilaterally. Skin: Normal temperature, turgor, and texture; 2 stage II pressure ulcers on scrotum and 2 stage II pressure ulcers on posterior thighs bilaterally (please see wound care note) with significant serosanguineous drainage but pink and beefy and do not appear to be infected with mild granulation tissue in place. Neurological: Cranial nerves grossly intact. Psychiatric: Depressed mood and flat affect. Alert but nods off easily. Poor insight into disease process. 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 Objective Labs Result Diagrams: 11/10/18 05:23 11/09/18 05:35 Assessment & Plan Assessment & Plan narrative: Babatunde Fitzgerald is a 38-year-old male with a past medical history significant for morbid obesity (BMI 80), asthma on chronic prednisone, obesity hypoventilation syndrome, RAJESH, chronic pain with methadone dependence, and chronic stage II decubitus pressure ulcerations of scrotum and posterior thighs who presented for increased pain and drainage of stage II decubitus pressure ulcerations of posterior thighs. 1. Acute on chronic stage II decubitus pressure ulcerations of posterior thighs, with polymicrobial infection versus colonization, status post debridement, present on admission. Active. -Post-debridement by General Surgery. Patient's wounds initially look infected upon admission now status post debridement are not infected. Discussed the patient again with infectious disease Dr. Cotton at [facility] who recommended a 10 day to stop 2/24 course of Augmentin to cover MSSA, strep and acinobacter. Will place on a probiotic as well. -Consulted wound care who plan to place a wound VAC due to significant serosanguineous drainage and the need for multiple supplies due to his obesity making it quite complex wound management. Waiting on special piece of equipment to be delivered. -His wound care management is an ongoing [place] as patient is noncompliant with follow-up to wound care clinic and is unable to take care of himself adequately at home. 2. Anemia of chronic disease, present on admission. Stable. -Continue on Iron and vitamin-C. -Hemoglobin and hematocrit stable. No overt signs of bleeding. Pressure ulcerations are draining serosanguinous as above. -Monitor H&H daily. Transfusion goal < 7.0. 3. Chronic pain with opiate dependence, present on admission. Stable. -Decreased dose of Methadone to his clinic dose of 85 mg daily due to over sedation (recently decreased to 85 mg outpatient but reported 95 mg on admission. Plan to work with PCP outpatient to continue taper down). -His methadone dependence is due to history of opioid dependence. 4. Depression and anxiety, chronic, present on admission. Stable. -Continue home Duloxetine and Olanzapine 15 mg daily not 20 mg. Not on lorazepam as an outpatient. 5. Pulmonary hypertension and right sided CHF, chronic and secondary to morbid obesity, OHS, RAJESH, and asthma, chronic, present on admission. Stable. -Continue prednisone AT 15 mg with 5 mg taper weekly per PCP Dr. Hernández, albuterol as needed, Advair and CPAP per RT. -Echocardiogram demonstrated right ventricle is moderate to severely dilated with moderately reduced right ventricular systolic function with severe biatrial enlargement 6. Morbid obesity, chronic, present on admission. Stable. -BMI 80 on admission. -Mobilize out of bed as much as he can tolerate. -Limit snacks to 2 per day and follow a heart healthy diet. NO CHIPS, JUICE, POPSICLES. -Patient will benefit from slow taper off prednisone and decrease methadone to lowest possible dose to treat pain. 7. Postoperative hypoxemia due to prolonged sedation, not present on admission. Resolved. -No longer on supplemental oxygen. 8. Mild QTc prolongation, secondary to medications, present on admission. Stable. -QTc 476 ms. Patient is on methadone, olanzapine, and duloxetine. -Avoid other QTC prolonging agents such as Zofran, etc. if possible. Disposition: Patient will need a residential facility at this point for wound VAC and continued wound management. Likely to be medically stable and ready for discharge in 1-2 days depending on placement of wound VAC by wound care. Quality VTE Deep Vein Thrombosis/Pulmonary Embolism Present on Admission: No
[2018-11-11] MEDS: ENOXAPARIN 30 MG/0.3 ML SYRINGE SUBCUT ×2 (09:24→21:37)
[2018-11-11] MEDS: ASCORBIC ACID 500 MG TABLET PO (09:24)
[2018-11-11] MEDS: OLANZapine 2.5 MG TABLET 15 MG PO (09:24)
[2018-11-11] MEDS: DULOXETINE 30 MG CAPSULE PO (09:24)
[2018-11-11] MEDS: FERROUS SULFATE 325 MG TABLET PO (09:24)
[2018-11-11] MEDS: LACTOBACILLUS ACIDOPHILUS TABLET 1 EACH PO ×2 (09:24→17:53)
[2018-11-11] MEDS: AMOXICILLIN/CLAV 875/125 MG 1 TAB PO ×2 (09:24→21:37)
[2018-11-11] MEDS: GABAPENTIN 300 MG CAPSULE PO ×3 (09:25→21:37)
[2018-11-11] MEDS: METHADONE 10 MG TABLET 85 MG PO (09:42)
--- NOTE | 2018-11-11 11:44 | PT.IPTN ---
Current Diagnoses Pressure ulcer of left buttock, stage 2 (11/03/18) Surgery Performed Operation Date: 11/03/18 15:30 Actual Procedures p Incision and Drainage upper bilateral legs-POSTERIOR(Bilateral) - Yuliet Pratt MD Physical Therapy Treatment Note M2 PT-IP Current Condition Start: 11/07/18 15:13 Freq: NEEDED Status: Active Protocol: Document 11/07/18 10:00 NFW (Rec: 11/07/18 15:55 NFW [id number]) Physical Therapy Current Condition Current Condition Evaluation Date 11/07/18 Treatment Diagnosis Recurring decubitus ulcers Weight Bearing Status Weight Bearing Status Full Weight Bearing M3 PT-IP Subjective Start: 11/07/18 15:13 Freq: NEEDED Status: Active Protocol: Document 11/11/18 10:00 HH (Rec: 11/11/18 11:44 [email or web address]) Subjective Physical Therapy Visit Type Type Treatment Note Visit Start Time 10:00 Visit Stop Time 11:00 Total Visit Minutes 60 Physical Therapy Visit Comments Patient Comments My legs still hurt Therapy Pain Assessment Pain When Pain Assessed During Mobility Pain Present Pain Present Pain Reported Location Bilateral Upper Posterior Leg Description Burning Sharp Pain Behaviors Moaning Restlessness Wincing Pain Management Techniques Modification of Treatment Re-positioning Timing of Activity with Medications M4 PT-IP Mobility and Gait Start: 11/07/18 15:13 Freq: NEEDED Status: Active Protocol: Document 11/11/18 10:00 HH (Rec: 11/11/18 11:44 [id number]) PT-Bed Mobility Assessment Supine to Sit Supine to Sit Contact Guard Assistance Bedrails Sit to Supine Sit to Supine Minimal Assistance 2 Person Assistance Scooting Scooting to Edge of Bed Standby Assistance Scooting Up and Down in Bed Standby Assistance PT-Transfer Assessment Sit to and From Stand Sit to and from Stand Standby Assistance Contact Guard Assistance 1 Person Assistance Equipment Transfer Assistive Device Front Wheeled Walker Orthotic/Prosthetic Devices or Brace: No Transfers Transfer Destination Bed Bedside Commode Transfer Technique Stand Step Pivot Transfer Ability Level of Assist Contact Guard Assistance Comments Mobility Comments Pt transferred from EOB to BSC x 6 times for toileting and wound dressing change with SBA /CGA and FWW. Pt cried the entire session due to pain from his wounds. Gait Assessment Gait Gait Assistance Required: Contact Guard Assist 1 Person Assist Distance (Feet) 15 Assistive Devices Assistive Device Front Wheeled Walker Orthotic/Prosthetic Devices or Brace: No Gait Deviations General Gait Pattern Decreased Stride Length Decreased Feet Clearance Flexed Trunk Wide Based Gait Factors Limiting Gait Function Factors Limiting Gait Function Decreased Activity Tolerance Decreased Sensation Decreased Strength Difficulty Following Directions Limited Range of Motion Pain Poor Safety Awareness Comments Gait Comments Pt amb from EOB to BSC multiple times with or without FWW CGA/SBA. M5 PT-IP Objective Assessments Start: 11/07/18 15:13 Freq: NEEDED Status: Active Protocol: Document 11/07/18 10:00 NFW (Rec: 11/07/18 15:55 NFW [id number]) Orientation Orientation/Cognition Orientation Name Place Language Function Ability Garbled Speech Comments Fades in and out of alertness. Gross Range of Motion Upper Extremity ROM Assessment Within Functional Limits Lower Extremity ROM Assessment Bilaterally Impaired Impairments Excessive edema into BLEs Strength Upper Extremity Strength Assessment Within Functional Limits Comments Strength Comments LE strength difficult to assess due to pain from ulcers . Has functional strength to walk short distances with FWW. Sensation Assessment Sensation Gross Sensation WNL Muscle Tone Muscle Tone WNL Yes M6 PT-IP Treatment Start: 11/07/18 15:13 Freq: NEEDED Status: Active Protocol: Document 11/10/18 14:26 SA (Rec: 11/10/18 14:45 SA [id number]) Physical Therapy Treatment Exercises Exercises Ankle Pumps Gluteal Sets Knee ROM Measurement bridging Education Education Provided Safety Other Treatments Other Treatment Performed Educated patient on circulation for healing, postion changes and increasing time spent standing/walking to avoid further pressure ulcer development. M7 PT-IP Assessment and Plan Start: 11/07/18 15:13 Freq: NEEDED Status: Active Protocol: Document 11/11/18 10:00 (Rec: 11/11/18 11:44 [email or web address]) PT Summary Assessment and Plan Potential Rehabilitation Potential Fair Status of Condition at Evaluation Evolving Summary Progress Towards Goals Slow Progress due to Pain Slow Progress due to Medical Issues Slow Progress due to Activity Tolerance Assessment Summary Pt's wounds were bleeding while pivoting from supine to sit EOB. RN and 2 CNAs assisted during the entire session for dressings change. Pt did transfer from bed to BSC 6 times today for toileting and wound care with SBA/CGA. Pt cont cried the whole time due to pain from his wounds. He also need constant encouragement and cues for personal hygiene. Decrease PT from twice a day to once a day since pt does not need much of skilled therapy, instead, pt would be a good candidate for psy consult due to his poor personal choices and self limiting behaviors. Recommend SNF due to his limited mobility, chronic wounds and poor personal hygiene. Frequency of Treatment Frequency Of Treatment Once a Day Treatment Plan Physical Therapy Treatment Plan Bed Mobility Training Transfer Training Gait Training Therapeutic Exercise Balance Retraining Recommendations To Nursing Amount of Assist Needed 1 Person Assist Discharge Recommendations PT Discharge Recommendations SNF Rehab
[2018-11-11] MEDS: ONDANSETRON 4 MG ODT SL (12:44)
[2018-11-11] MEDS: SODIUM CHLORIDE 0.9% FLUSH 10 ML IV ×2 (12:44→21:37)
--- NOTE | 2018-11-11 14:21 | PC.NURSE ---
SHIFT SUMMARY; SEE SHIFT ASSESSMENT AND WOUND DOCUMENTATION INTERVENTIONS FOR DRSG CHANGE COMPLETED ON THIS SHIFT AT 1030. PATIENT'S IV WAS DC'D D/T OCCLUSION. MD NOTIFIED. MD WOULD LIKE IV RESTARTED. DI NURSE WAS ASKED TO COME START PERIPHERAL IV AFTER THIS RN MADE TWO ATTEMPTS. MD SPECIFIED WOULD PREFER NOT TO USE MIDLINE, PREFERS PIV. DI NURSE WILL COME LATE AFTERNOON.
--- NOTE | 2018-11-11 16:04 | CM.DPNOTE ---
Over the last two days; DCP and medical POC have been discussed at length w/ Dr Henry and w/multi-disciplinary staff in rounds. Kiersten Pérez met w/this BAG LOADER and [facility] rep Hetal Ivy P# [phone] yesterday to discuss process and placement of pt's wound vac. Wound vac has not been placed yet, 11.11.18. Placed call to Leona, admissions for [facility], yesterday and today. Leona explained that they are willing to consider pt for admission if [facility] will cover the cost of pt's bc equipment and wound vac. Placed call to Cindy Gaspar at [employer] P# [phone] ext [phone], explained above and she instructed the SNF to fax request for coverage of the items w/evidence why he needs them to [employer] main fax number F# [phone]. Cindy said she alerted the DME Dept to the need. Cindy further explained this was the fastest way for these items to be considered and additional funding considered from [employer]. Relayed above to Leona at [facility] admissions P# [phone]; she said she would attempt this. [facility] is contracted w/[facility], provided Leona w/ [facility] rep Hetal's name and contact information for further detail on wound vac being placed on pt while admitted here. Following closely. Attempting coordination of safe DCP to SNF level of care for this pt. In addition: Would there be any funding available through pt's douglas to support DME at [facility] (?) JOSÉ LUIS Palmer
--- NOTE | 2018-11-11 16:15 | OT.IP.TRT ---
Current Diagnoses Pressure ulcer of left buttock, stage 2 (11/03/18) Surgery Performed Operation Date: 11/03/18 15:30 Actual Procedures p Incision and Drainage upper bilateral legs-POSTERIOR(Bilateral) - Yuliet Pratt MD Occupational Therapy Treatment Note M2 OT-IP Current Condition Start: 11/07/18 16:03 Freq: Status: Active Protocol: Document 11/07/18 10:00 [facility] (Rec: 11/07/18 16:58 [facility] [id number]) Occupational Therapy Current Condition Current Condition Evaluation Date 11/07/18 Treatment Diagnosis Chronic ulceration on perineum sacrum and scrotal areas Diagnosis Onset Date 11/03/18 M3 OT- IP Subjective and Pain Start: 11/07/18 16:03 Freq: Status: Active Protocol: Document 11/11/18 16:14 [facility] (Rec: 11/11/18 16:15 [facility] [id number]) OT- Subjective Occupational Therapy Visit Type Type Patient Refusal Notes Pt states too tired and in too much pain today and refusing therapy this PM, in addition just about to have IV placed therefore check on pt tomorrow .
--- NOTE | 2018-11-11 16:40 | PC.NURSE ---
Wound Nurse Consult Note [employer] will be into [employer] tomorrow, November 12, 2018. KeyurRN Day Charge Nurse come down to the wound care center and picked up two boxes of Aquacel Extra and two boxes of Maxsorb AG. I will be able to help place VAC dressing on Wednesday, unless nursing staff places wound vac tomorrow.
--- NOTE | 2018-11-11 17:46 | PC.NURSE ---
Addendum entered by Chandrika Cerda R.N. 11/11/18 22:51: unable to use bed to take weight measurement. Pain reported by pt (3/10) but not requesting medication. Original Note: Addendum entered by Chandrika Cerda R.N. 11/11/18 18:08: pt refusing to reposition in bed. Patient agreed to let me assess wounds the next time he gets up to BSC. Reporting 3/10 pain in thigh wound area. Denying SOB, 91% RA. Hesitant to take PM predisone, when asked why pt agreed to take medication and unwilling/didn't elaborate when asked why. Dry and flaky skin to face, but moist to folds, pillow case and nystatin powder to help reduce moisture. New PIV to right forearm secured and flushing, pt denied pain in PIV area. Heels floating in EHOB boots. Original Note: pt asleep and awoke for part of PIV insertion. Peri HEATH inserted a 20g (2inch) into right forearm. Peri stated that the pt has good sized veins, but they are deep.
[2018-11-11] MEDS: predniSONE 5 MG TABLET 15 MG PO (17:54)
[2018-11-12] VITALS (11 sets, daily range): BP systolic 111–123; BP diastolic 56–68; PULSE 78–87; RESP 16–24; TEMP 35.9–36.8; O2SAT 86–100
--- NOTE | 2018-11-12 01:15 | PC.NURSE ---
Addendum entered by Melita Saravia R.N. 11/12/18 06:36: Pt declined position changes this shift. Desats on RA 2L NC to brings sats up to 93-94%. CPOX left on for close monitoring. Pt up to BSC at approx 0630. BM and voided. Foam drsg to R. upper thigh fell off and dripping sang drainage. Drsg replaced. Complete bed change. Fresh pillowcases and Baby powder applied to skin folds. Pt scratching skin. Advised pt not to scratch. Original Note: Assumed care of pt at 2300 on 11/11/18. Pt sleeping during bedside hand-off. Door open for close monitoring. Call light within reach.
[2018-11-12 05:31] LABS: Basophils Absolute Auto 0 /uL (0-100); Basophils Percent Auto 0.4 % (0-2); Eosinophils Absolute Auto 0 /uL (0-450); Eosinophils Percent Auto 1.2 % (2-4); Hematocrit 26.5 % (41-53); Lymphocytes Absolute Auto 1500 /uL (1100-4500); Lymphocytes Percent Auto 43.5 % (25-40); Mean Corpuscular HGB Conc 30.4 % (30-36); Mean Corpuscular Volume 82.2 fL (80-100); Monocytes Absolute Auto 400 /uL (0-900); Monocytes Percent Auto 10.8 % (3-14); Neutrophils Absolute Auto 1500 /uL (1500-7000); Neutrophils Percent Auto 44.1 % (50-75); Platelet Count 211 X10^3/uL (150-400); Red Blood Cell Count 3.22 X10^6/uL (4.5-5.9); Red Cell Distribution Width 17.6 % (11.6-14.8); White Blood Cell Count 3.5 X10^3/uL (4.5-11.0)
[2018-11-12 05:34] LABS: Add Manual Diff / Slide Review SLIDE REVIEW
[2018-11-12 06:14] LABS: Anisocytosis 1+
[2018-11-12 06:15] LABS: Poikilocytosis 1+; Polychromasia 1+
[2018-11-12] MEDS: ACETAMINOPHEN 325 MG TABLET 650 MG PO ×2 (06:45→18:46)
--- NOTE | 2018-11-12 10:36 | CM.DPC ---
DCP SNF Planning: Per MD, part for wound vac likely to arrive today and wound vac placement to likely be completed on pt today once the part arrives. Pt likely could be medically stable to d/c to SNF after today if wound vac placement goes well. SW updated MD that pt's insurance [employer] closed for the weekend and likely will not have an answer until Wednesday. [facility] working with [facility]urya and I liaison to determine if [employer] will cover the cost of the bc equipment and wound vac so that they can accept the pt at d/c. GENO left a msg for [facility] to determine if any updates from [employer] by evening yesterday (Wednesday). PASRR complete but likely needs MD signature. Plan: GENO to follow closely for update from [facility] admissions if [employer] will agree to cover the cost of bc equipment and wound vac so that they can accept the pt at d/c. Likely waiting until [employer] insurance is open again on Wednesday. JOSÉ LUIS Leon
[2018-11-12] MEDS: LACTOBACILLUS ACIDOPHILUS TABLET 1 EACH PO (10:45)
[2018-11-12] MEDS: AMOXICILLIN/CLAV 875/125 MG 1 TAB PO ×2 (10:45→20:58)
[2018-11-12] MEDS: ASCORBIC ACID 500 MG TABLET PO (10:46)
[2018-11-12] MEDS: ENOXAPARIN 30 MG/0.3 ML SYRINGE SUBCUT ×2 (10:46→20:59)
[2018-11-12] MEDS: DULOXETINE 30 MG CAPSULE PO (10:46)
[2018-11-12] MEDS: GABAPENTIN 300 MG CAPSULE PO ×3 (10:47→20:59)
[2018-11-12] MEDS: FERROUS SULFATE 325 MG TABLET PO (10:47)
[2018-11-12] MEDS: METHADONE 10 MG TABLET 85 MG PO (10:47)
[2018-11-12] MEDS: OLANZapine 2.5 MG TABLET 15 MG PO (10:48)
[2018-11-12] MEDS: SODIUM CHLORIDE 0.9% FLUSH 10 ML IV ×2 (10:49→20:59)
--- NOTE | 2018-11-12 11:57 | P.PN_ITS ---
Subjective Date Patient Seen: 11/12/18 Interval history: 38-year-old male with morbid obesity status post debridement of stage II acute on chronic decubitus ulcers. Patient is resting comfortably. He denies any pain. Wound VAC is in place. He has no shortness of breath. Exam Vital Signs (past 8 hours): - 11/12/18 04:20 11/12/18 08:35 11/12/18 08:49 Temperature 98.1 F 97.3 F L Pulse Rate 82 85 78 Respiratory Rate 19 22 16 Blood Pressure 116/61 123/56 L Pulse Oximetry 95 99 98 Fraction of Inspired Oxygen 28 Oxygen Delivery Method Nasal Cannula Oxygen Flow Rate 2 Narrative Exam Narrative: Obese male lying in bed in no acute distress Lungs: Clear to auscultate Cardiac exam: Regular rate rhythm normal S1 and S2 with a 2/6 systolic ejection Abdomen: Soft nontender nondistended Extremities: Bilateral boots in place wound VAC is in place Objective Labs Result Diagrams: 11/12/18 05:09 11/09/18 05:35 Labs: Laboratory Results - last 24 hr 11/12/18 05:09 WBC 3.5 L RBC 3.22 L Hgb 8.0 L Hct 26.5 L MCV 82.2 MCH 25.0 L MCHC 30.4 RDW 17.6 H Plt Count 211 Neut % (Auto) 44.1 L Lymph % (Auto) 43.5 H [place] % (Auto) 10.8 Eos % (Auto) 1.2 L Baso % (Auto) 0.4 Neut # (Auto) 1500 Lymph # (Auto) 1500 [place] # (Auto) 400 Eos # (Auto) 0 Baso # (Auto) 0 RBC Morphology See below Polychromasia 1+ H Poikilocytosis 1+ H Anisocytosis 1+ H Assessment & Plan Assessment & Plan narrative: Acute on chronic stage II decubitus pressure ulcerations of posterior thighs, with polymicrobial infection versus colonization, status post debridement, present on admission. Active. -Post-debridement by General Surgery. Patient's wounds initially look infected upon admission now status post debridement are not infected. Discussed the patient again with infectious disease Dr. Cotton at [facility] who recommended a 10 day to stop /24 course of Augmentin to cover MSSA, strep and acinobacter. Will place on a probiotic as well. -Consulted wound care who plan to place a wound VAC due to significant serosanguineous drainage and the need for multiple supplies due to his obesity making it quite complex wound management. Waiting on special piece of equipment to be delivered. -His wound care management is an ongoing [place] as patient is noncompliant with follow-up to wound care clinic and is unable to take care of himself adequately at home. 2. Anemia of chronic disease, present on admission. Stable. -Continue on Iron and vitamin-C. -Hemoglobin and hematocrit stable. No overt signs of bleeding. Pressure ulcerations are draining serosanguinous as above. -Monitor H&H daily. Transfusion goal < 7.0. 3. Chronic pain with opiate dependence, present on admission. Stable. -Decreased dose of Methadone to his clinic dose of 85 mg daily due to over sedation (recently decreased to 85 mg outpatient but reported 95 mg on admission . Plan to work with PCP outpatient to continue taper down). -His methadone dependence is due to history of opioid dependence. 4. Depression and anxiety, chronic, present on admission. Stable. -Continue home Duloxetine and Olanzapine 15 mg daily not 20 mg. Not on lorazepam as an outpatient. 5. Pulmonary hypertension and right sided CHF, chronic and secondary to morbid obesity, OHS, RAJESH, and asthma, chronic, present on admission. Stable. -Continue prednisone AT 15 mg with 5 mg taper weekly per PCP Dr. Hernández, albuterol as needed, Advair and CPAP per RT. -Echocardiogram demonstrated right ventricle is moderate to severely dilated with moderately reduced right ventricular systolic function with severe biatrial enlargement 6. Morbid obesity, chronic, present on admission. Stable. -BMI 80 on admission. -Mobilize out of bed as much as he can tolerate. -Limit snacks to 2 per day and follow a heart healthy diet. NO CHIPS, JUICE, POPSICLES. -Patient will benefit from slow taper off prednisone and decrease methadone to lowest possible dose to treat pain. 7. Postoperative hypoxemia due to prolonged sedation, not present on admission. Resolved. -No longer on supplemental oxygen. Quality VTE Deep Vein Thrombosis/Pulmonary Embolism Present on Admission: No
--- NOTE | 2018-11-12 13:49 | PT.IPTN ---
Current Diagnoses Pressure ulcer of left buttock, stage 2 (11/03/18) Surgery Performed Operation Date: 11/03/18 15:30 Actual Procedures p Incision and Drainage upper bilateral legs-POSTERIOR(Bilateral) - Yuliet Pratt MD Physical Therapy Treatment Note M2 PT-IP Current Condition Start: 11/07/18 15:13 Freq: NEEDED Status: Active Protocol: Document 11/07/18 10:00 NFW (Rec: 11/07/18 15:55 NFW [id number]) Physical Therapy Current Condition Current Condition Evaluation Date 11/07/18 Treatment Diagnosis Recurring decubitus ulcers Weight Bearing Status Weight Bearing Status Full Weight Bearing M3 PT-IP Subjective Start: 11/07/18 15:13 Freq: NEEDED Status: Active Protocol: Document 11/12/18 13:49 AB (Rec: 11/12/18 15:01 AB [id number]) Subjective Physical Therapy Visit Type Type Treatment Note Visit Start Time 13:49 Visit Stop Time 14:09 Total Visit Minutes 20 Number of BRAND LEADER Visits 0 Therapy Pain Assessment Pain When Pain Assessed During Mobility Pain Present Pain Present Pain Reported Location Bilateral Upper Posterior Leg Scale Used pain scale not stated Pain Management Techniques Distraction Re-positioning M4 PT-IP Mobility and Gait Start: 11/07/18 15:13 Freq: NEEDED Status: Active Protocol: Document 11/12/18 13:49 AB (Rec: 11/12/18 15:01 AB [id number]) PT-Bed Mobility Assessment Rolling Level of Assist Standby Assistance PT-Transfer Assessment Sit to and From Stand Sit to and from Stand Standby Assistance Equipment Transfer Assistive Device Gait Belt Front Wheeled Walker Orthotic/Prosthetic Devices or Brace: No Transfers Transfer Destination Bedside Commode Transfer Technique Stand Step Pivot Transfer Ability Level of Assist Standby Assistance Comments Mobility Comments nurse stated that pt has to get up for wound dressing change. pt completed supine to sit SBA and transferred to bedside commode using FWW on L side and reaching for bedside commode with R hand taking ~ 3-4 steps SBA. pt refused to ambulation. encouraged pt to ambulate or do standing activities but pt continues to refuse. pt refused stated that getting out of bed is good enough. completed sit to stand from bedside commode for position change and wound dressing change. Left pt with nurse in room. M5 PT-IP Objective Assessments Start: 11/07/18 15:13 Freq: NEEDED Status: Active Protocol: Document 11/07/18 10:00 NFW (Rec: 11/07/18 15:55 NFW [id number]) Orientation Orientation/Cognition Orientation Name Place Language Function Ability Garbled Speech Comments Fades in and out of alertness. Gross Range of Motion Upper Extremity ROM Assessment Within Functional Limits Lower Extremity ROM Assessment Bilaterally Impaired Impairments Excessive edema into BLEs Strength Upper Extremity Strength Assessment Within Functional Limits Comments Strength Comments LE strength difficult to assess due to pain from ulcers . Has functional strength to walk short distances with FWW. Sensation Assessment Sensation Gross Sensation WNL Muscle Tone Muscle Tone WNL Yes M6 PT-IP Treatment Start: 11/07/18 15:13 Freq: NEEDED Status: Active Protocol: Document 11/10/18 14:26 SA (Rec: 11/10/18 14:45 SA [id number]) Physical Therapy Treatment Exercises Exercises Ankle Pumps Gluteal Sets Knee ROM Measurement bridging Education Education Provided Safety Other Treatments Other Treatment Performed Educated patient on circulation for healing, postion changes and increasing time spent standing/walking to avoid further pressure ulcer development. M7 PT-IP Assessment and Plan Start: 11/07/18 15:13 Freq: NEEDED Status: Active Protocol: Document 11/12/18 13:49 AB (Rec: 11/12/18 15:01 AB [id number]) PT Summary Assessment and Plan Potential Rehabilitation Potential Fair Summary Impairments Pain ROM Strength Balance Coordination Sensation Tone Cognition Bed Mobility Transfers Gait Activity Tolerance Progress Towards Goals Slow Progress - Other Assessment Summary pt refused ambulation today and minimally participated with PT. Pt directs his own care. Will continue to assess progress and appropriateness for further PT intervention. Goals Bed Mobility Goal Independent Transfer Goal Independent Front Wheeled Walker Four Wheeled Walker Gait Goal Standby Assistance Front Wheel Walker Four Wheel Walker Gait Distance 50 Days to Meet Goals 10 Frequency of Treatment Frequency Of Treatment Once a Day Treatment Plan Physical Therapy Treatment Plan Bed Mobility Training Transfer Training Gait Training Therapeutic Exercise Balance Retraining Discharge Planning Neuromuscular Re-ed Coordination Retraining Other Recommendations and Next Treatment ambulation Focus Recommendations To Nursing Amount of Assist Needed Standby Assistance Discharge Recommendations PT Discharge Recommendations SNF Rehab
--- NOTE | 2018-11-12 14:40 | PC.NURSE ---
Dressings change to pts wounds on bilateral posterior thighs per HCP order with Aquacell packed lightly into the wounds and then covered with duoderms. Smaller wounds to pts bilateral buttocks covered with Alevyn gentle boarder. Pt stood and leaned over the bed. Pt became fatigued multiple times and needed to sit and take breaks. Dressings adhered to wounds onlymoderately well r/t moist nature of the wounds,
--- NOTE | 2018-11-12 14:50 | OT.IP.TRT ---
Current Diagnoses Pressure ulcer of left buttock, stage 2 (11/03/18) Surgery Performed Operation Date: 11/03/18 15:30 Actual Procedures p Incision and Drainage upper bilateral legs-POSTERIOR(Bilateral) - Yuliet Pratt MD Occupational Therapy Treatment Note M2 OT-IP Current Condition Start: 11/07/18 16:03 Freq: Status: Active Protocol: Document 11/07/18 10:00 [facility] (Rec: 11/07/18 16:58 [facility] [id number]) Occupational Therapy Current Condition Current Condition Evaluation Date 11/07/18 Treatment Diagnosis Chronic ulceration on perineum sacrum and scrotal areas Diagnosis Onset Date 11/03/18 M3 OT- IP Subjective and Pain Start: 11/07/18 16:03 Freq: Status: Active Protocol: Document 11/12/18 14:41 [facility] (Rec: 11/12/18 14:50 [facility] [id number]) OT- Subjective Occupational Therapy Visit Type Type Treatment Note Visit Start Time 11:49 Visit Stop Time 12:09 Total Visit Minutes 20 Occupational Therapy Visit Comments Patient Comments Pt needing lots of encouragement to try to participate in therapy. OT Pain Assessment Pain When Pain Assessed At Rest Pain Present Pain Present Pain Reported Location Bilateral Upper Posterior Leg Pain Behaviors Calling Out Crying Facial Grimacing Holding Area M4 OT- IP ADL's Start: 11/07/18 16:03 Freq: Status: Active Protocol: Document 11/12/18 14:41 [facility] (Rec: 11/12/18 14:50 [facility] [id number]) OT ADL-Grooming Comments OT Grooming Comments Pt able to use wash cloth to wash his face and hands after set-up. OT ADL-Oral Care Comments Oral Care Comments Pt refused this session. OT ADL-Dressing Comments OT Dressing Comments Pt declines to wears any socks or clothing. M6 OT- IP Functional Cognition Start: 11/07/18 16:03 Freq: Status: Active Protocol: Document 11/12/18 14:41 [facility] (Rec: 11/12/18 14:50 [facility] [id number]) Cognitive Factors Limiting Selfcare Function Cognitive Ability Level of Alertness Alert Attention Span Ability Capable of Focused Attention Unable to Sustain Attention Ability to Follow Commands Able to Follow One Step Commands Problem Solving Ability Unable to Identify Errors Needs Assist to Identify Solutions Executive Function Ability Unable to Switch Focus Unable to Filter Distractions Unable to Remember Details Cognitive Comments Cognitive Assessment Comments Pt tending to close his eyes and moan and cry out, however at times able to distract pt with questions or by giving him water bottle to drink, comb to comb his hair, however at other time pt is not consolable. M7 OT- IP Mobility and Balance Start: 11/07/18 16:03 Freq: Status: Active Protocol: Document 11/12/18 14:41 [facility] (Rec: 11/12/18 14:50 [facility] [id number]) OT- Bed Mobility Assessment Rolling Type of Rolling Roll to Right Level of Assistance Standby Assistance 1 Person Assistance Bedrails Supine to Sit Supine to Sit Assist Standby Assistance Bedrails OT-Transfer Assessment Sit to and From Stand Sit to and from Stand Standby Assistance Transfers Transfer Ability Standby Assistance Technique Transfer Destination Bedside Commode Transfer Technique Stand Step Pivot Devices Transfer Assistive Devices None Front Wheeled Walker Comments Mobility Comments pt declines gait belt or device to transfer to BSC next to bed. Pt uses the FWW to get to BSC and then without to get to bed to lean over so nursing able to do wound care needs. OT- Balance Assessment Sitting Balance and Reactions Static Sitting Balance Ability Normal Dynamic Sitting Balance Ability Good Standing Balance and Reactions Static Standing Balance Ability Fair M8 OT- IP Objective Assessments Start: 11/07/18 16:03 Freq: Status: Active Protocol: Document 11/10/18 13:37 [facility] (Rec: 11/10/18 17:27 [facility] [id number]) OT Strength Comments Strength Comments Pt seen for 10 reps of red theraband exercises for B shoulder abduction, unilateral elbow flex, elbow extension shoulder flex, shoulder extension and scapular protraction. 11/12/18 pt able to recall theraband exercises shown the prior day and states has been doing them on his own. M9 OT- IP Assessment and Plan Start: 11/07/18 16:03 Freq: Status: Active Protocol: Document 11/12/18 14:41 [facility] (Rec: 11/12/18 14:50 [facility] [id number]) OT Summary Assessment and Plan Potential Rehabilitation Potential Fair Analytic Complexity at Evaluation Moderate Summary OT Impairments Pain Functional Mobility Grooming Dressing Toileting Bathing Toilet Transfers Shower Transfers Progress Towards Goals Slow Progress due to Pain Slow Progress due to Medical Issues Slow Progress due to Cognition Assessment Summary Pt needing lots of encouragement today, needing to have pt involved with activities to help distract his pain. Pt will benefit from skilled rehab for wound care needs . Goals Grooming Goal Standby Assistance Dressing Goal Moderate Assistance Toileting Goal Moderate Assistance Toilet Transfer Goal Independent Days to Meet Goals 3 Treatment Plan OT Treatment Plan ADL Training Functional Cognition Training Functional Mobility Patient/Family Education Discharge Planning Other Treatment Recommendations and Next Stand by sink for grooming Treatment Focus needs with FWW. Discharge Recommendations OT Discharge Recommendations SNF Rehab Home Equipment Needs [facility]
[2018-11-12] MEDS: IBUPROFEN 600 MG TABLET PO (18:17)
[2018-11-12] MEDS: predniSONE 5 MG TABLET 15 MG PO (18:17)
--- NOTE | 2018-11-12 20:22 | PC.NURSE ---
Addendum entered by Roseanna Villanueva R.N. 11/12/18 22:37: unable to clip pt's nails this shift. Pt asking several nurses aids for paper clips, tooth brush, toothpaste as to scratch self with them. Pt declined ibuprofen, probiotic, and docusate. Original Note: Drsg's to wounds remain at this time. chucks under pt as to help pt slide out of bed when getting up to BSC. resting with eyes closed most of shift, ate dinner, asking for snacks x 3. Pt informed no juice, pudding, popcicles, or ice cream. Pt given 1/2 sandwich at 2000 as lost snack for this shift, and the mold shifter, and informed new snack schedule starts at 0800. 100% 2Lnc, denies SOB. BT+, denies nausea. LFA SL. Bed alarm on.
[2018-11-12] MEDS: DOCUSATE 100 MG CAPSULE PO (20:59)
[2018-11-13] VITALS (9 sets, daily range): BP systolic 100–134; BP diastolic 45–62; PULSE 77–94; RESP 16–20; TEMP 36.6–36.8; O2SAT 90–100
--- NOTE | 2018-11-13 00:58 | PC.NURSE ---
Addendum entered by Melita Saravia R.N. 11/13/18 06:15: 250.3 kg on bed scale which is much larger than prior wts. SYSTEMS TEST ENGINEER notified of discrepancy. Plan to weigh on standing or sitting scale next time he is up. Per SYSTEMS TEST ENGINEER ok for pt to have 1 diet carol holly this am as he is crying very loudly for juice. Original Note: Addendum entered by Melita Saravia R.N. 11/13/18 05:30: At approx 0500. Pt awakens and begins to cry. Medicated with Tylenol for 6/10 pain. Up to BS. Drsgs to post thighs fallen off and sang drainage dripping down legs. Legs washed, wound cleansed with saline irrigation. Complete drsg supplies not in room and pt states he cannot tolerate complete drsg. duoderm applied to larger lower thigh wounds, foam gentle boarders applied to upper wounds. Complete bed bath given. Original Note: Assumed care of pt at 2300 on 11/12. Pt sleeping during bedside hand-off. Awakens to voice for assessment. Very sleeping, denies pain or needs. Refused offer of bed bath, refused assessment of drsgs, refused EHOB boots. Pt states maybe later. Enc to reposition to off-load pressure and to use elastic exercise bands, however pt has not done so yet this shift. Oxygen decreased to 1L NC, Sats 93%. Door open for close monitoring. Bed alarm not an option on his bed. Pt not wearing clothing to clip chair alarm. Pt has been compliant not getting oob without assistance.
[2018-11-13] MEDS: ACETAMINOPHEN 325 MG TABLET 650 MG PO (05:05)
[2018-11-13] MEDS: LACTOBACILLUS ACIDOPHILUS TABLET 1 EACH PO ×2 (09:35→16:45)
[2018-11-13] MEDS: AMOXICILLIN/CLAV 875/125 MG 1 TAB PO ×2 (09:35→21:21)
[2018-11-13] MEDS: ASCORBIC ACID 500 MG TABLET PO (09:35)
[2018-11-13] MEDS: DULOXETINE 30 MG CAPSULE PO (09:36)
[2018-11-13] MEDS: ENOXAPARIN 30 MG/0.3 ML SYRINGE SUBCUT ×2 (09:36→21:21)
[2018-11-13] MEDS: GABAPENTIN 300 MG CAPSULE PO ×3 (09:37→21:22)
[2018-11-13] MEDS: OLANZapine 2.5 MG TABLET 15 MG PO (09:37)
[2018-11-13] MEDS: FERROUS SULFATE 325 MG TABLET PO (09:37)
[2018-11-13] MEDS: METHADONE 10 MG TABLET 85 MG PO (09:41)
[2018-11-13] MEDS: SODIUM CHLORIDE 0.9% FLUSH 10 ML IV ×2 (09:42→21:21)
--- NOTE | 2018-11-13 11:30 | PM.PN.1 ---
Subjective Date Patient Seen: 11/13/18 Interval history: 38 y/o male s/p debridement of decubitus ulcers, history of chronic pain, morbid obesity , depression/anxiety awaiting placement. The patient reports pain today. He was able to get up to the commode with help. He is hypoxic at rest but denies shortness of breath. Exam Vital Signs (past 8 hours): - 11/13/18 06:00 11/13/18 09:14 11/13/18 10:01 Temperature 98.1 F Pulse Rate 77 Respiratory Rate 16 Blood Pressure 134/55 L Pulse Oximetry 94 97 90 L Fraction of Inspired Oxygen 24 Oxygen Delivery Method Room Air Oxygen Flow Rate 1 Narrative Exam Narrative: Pleasant male who appears comfortable LUngs: decreased breath sounds but clear to auscultation CV: irregular rhythm nl S1 S2 3/6 ESPERANZA Abd: obese soft/non tender Sacral/peritoneal/scrotal areas: multiple open ulcer/wounds healing nicely no exudates or redness noted Wounds on the bilateral scrotal area, perineum posterior thigh, dressings in place Objective Labs Result Diagrams: 11/12/18 05:09 11/09/18 05:35 Assessment & Plan Assessment & Plan narrative: Assessment & Plan narrative: Acute on chronic stage II decubitus pressure ulcerations of posterior thighs, with polymicrobial infection versus colonization, status post debridement, present on admission. Active. -Post-debridement by General Surgery. Patient's wounds initially look infected upon admission now status post debridement are not infected. Discussed the patient again with infectious disease Dr. Cotton at [facility] who recommended a 10 day to stop / course of Augmentin to cover MSSA, strep and acinobacter. Will place on a probiotic as well. -Consulted wound care who plan to place a wound VAC due to significant serosanguineous drainage and the need for multiple supplies due to his obesity making it quite complex wound management. Waiting on special piece of equipment to be delivered. -His wound care management is an ongoing [place] as patient is noncompliant with follow-up to wound care clinic and is unable to take care of himself adequately at home. Awaiting placement at a SNF ( [facility]) hopefully tomorrow. 2. Anemia of chronic disease, present on admission. Stable. -Continue on Iron and vitamin-C. -Hemoglobin and hematocrit stable. No overt signs of bleeding. Pressure ulcerations are draining serosanguinous as above. -Monitor H&H daily. Transfusion goal < 7.0. 3. Chronic pain with opiate dependence, present on admission. Stable. -Decreased dose of Methadone to his clinic dose of 85 mg daily due to over sedation (recently decreased to 85 mg outpatient but reported 95 mg on admission. Plan to work with PCP outpatient to continue taper down). -His methadone dependence is due to history of opioid dependence. 4. Depression and anxiety, chronic, present on admission. Stable. -Continue home Duloxetine and Olanzapine 15 mg daily not 20 mg. Not on lorazepam as an outpatient. 5. Pulmonary hypertension and right sided CHF, chronic and secondary to morbid obesity, OHS, RAJESH, and asthma, chronic, present on admission. Stable. -Continue prednisone AT 15 mg with 5 mg taper weekly per PCP Dr. Hernández, albuterol as needed, Advair and CPAP per RT. -Echocardiogram demonstrated right ventricle is moderate to severely dilated with moderately reduced right ventricular systolic function with severe biatrial enlargement 6. Morbid obesity, chronic, present on admission. Stable. -BMI 80 on admission. -Mobilize out of bed as much as he can tolerate. -Limit snacks to 2 per day and follow a heart healthy diet. NO CHIPS, JUICE, POPSICLES. -Patient will benefit from slow taper off prednisone and decrease methadone to lowest possible dose to treat pain. 7. Postoperative hypoxemia due to prolonged sedation, not present on admission. Intermittantly using oxygen. Suspect Obesity hypoventilation syndrome Quality VTE Deep Vein Thrombosis/Pulmonary Embolism Present on Admission: No
--- NOTE | 2018-11-13 11:34 | P.PN_ITS ---
Subjective Date Patient Seen: 11/13/18 Interval history: 38 y/o male s/p debridement of decubitus ulcers, history of chronic pain, morbid obesity , depression/anxiety awaiting placement. The patient reports pain today. He was able to get up to the commode with help. He is hypoxic at rest but denies shortness of breath. Exam Vital Signs (past 8 hours): - 11/13/18 06:00 11/13/18 09:14 11/13/18 10:01 Temperature 98.1 F Pulse Rate 77 Respiratory Rate 16 Blood Pressure 134/55 L Pulse Oximetry 94 97 90 L Fraction of Inspired Oxygen 24 Oxygen Delivery Method Room Air Oxygen Flow Rate 1 Narrative Exam Narrative: Pleasant male who appears comfortable LUngs: decreased breath sounds but clear to auscultation CV: irregular rhythm nl S1 S2 3/6 ESPERANZA Abd: obese soft/non tender Sacral/peritoneal/scrotal areas: multiple open ulcer/wounds healing nicely no exudates or redness noted Wounds on the bilateral scrotal area, perineum posterior thigh, dressings in place Objective Labs Result Diagrams: 11/12/18 05:09 11/09/18 05:35 Assessment & Plan Assessment & Plan narrative: Assessment & Plan narrative: Acute on chronic stage II decubitus pressure ulcerations of posterior thighs, with polymicrobial infection versus colonization, status post debridement, present on admission. Active. -Post-debridement by General Surgery. Patient's wounds initially look infected upon admission now status post debridement are not infected. Discussed the patient again with infectious disease Dr. Cotton at [facility] who recommended a 10 day to stop / course of Augmentin to cover MSSA, strep and acinobacter. Will place on a probiotic as well. -Consulted wound care who plan to place a wound VAC due to significant serosanguineous drainage and the need for multiple supplies due to his obesity making it quite complex wound management. Waiting on special piece of equipment to be delivered. -His wound care management is an ongoing montano as patient is noncompliant with follow-up to wound care clinic and is unable to take care of himself adequately at home. Awaiting placement at a SNF ( [facility]) hopefully tomorrow. 2. Anemia of chronic disease, present on admission. Stable. -Continue on Iron and vitamin-C. -Hemoglobin and hematocrit stable. No overt signs of bleeding. Pressure ulcerations are draining serosanguinous as above. -Monitor H&H daily. Transfusion goal < 7.0. 3. Chronic pain with opiate dependence, present on admission. Stable. -Decreased dose of Methadone to his clinic dose of 85 mg daily due to over sedation (recently decreased to 85 mg outpatient but reported 95 mg on admission. Plan to work with PCP outpatient to continue taper down). -His methadone dependence is due to history of opioid dependence. 4. Depression and anxiety, chronic, present on admission. Stable. -Continue home Duloxetine and Olanzapine 15 mg daily not 20 mg. Not on lorazepam as an outpatient. 5. Pulmonary hypertension and right sided CHF, chronic and secondary to morbid obesity, OHS, RAJESH, and asthma, chronic, present on admission. Stable. -Continue prednisone AT 15 mg with 5 mg taper weekly per PCP Dr. Hernández, albuterol as needed, Advair and CPAP per RT. -Echocardiogram demonstrated right ventricle is moderate to severely dilated w ith moderately reduced right ventricular systolic function with severe biatrial enlargement 6. Morbid obesity, chronic, present on admission. Stable. -BMI 80 on admission. -Mobilize out of bed as much as he can tolerate. -Limit snacks to 2 per day and follow a heart healthy diet. NO CHIPS, JUICE, POPSICLES. -Patient will benefit from slow taper off prednisone and decrease methadone to lowest possible dose to treat pain. 7. Postoperative hypoxemia due to prolonged sedation, not present on admission. Intermittantly using oxygen. Suspect Obesity hypoventilation syndrome Quality VTE Deep Vein Thrombosis/Pulmonary Embolism Present on Admission: No
--- NOTE | 2018-11-13 14:00 | PT.IPTN ---
Current Diagnoses Pressure ulcer of left buttock, stage 2 (11/03/18) Surgery Performed Operation Date: 11/03/18 15:30 Actual Procedures p Incision and Drainage upper bilateral legs-POSTERIOR(Bilateral) - Yuliet Pratt MD Physical Therapy Treatment Note M2 PT-IP Current Condition Start: 11/07/18 15:13 Freq: NEEDED Status: Active Protocol: Document 11/07/18 10:00 [facility] (Rec: 11/07/18 15:55 [facility] [id number]) Physical Therapy Current Condition Current Condition Evaluation Date 11/07/18 Treatment Diagnosis Recurring decubitus ulcers Weight Bearing Status Weight Bearing Status Full Weight Bearing M3 PT-IP Subjective Start: 11/07/18 15:13 Freq: NEEDED Status: Active Protocol: Document 11/13/18 14:25 [facility] (Rec: 11/13/18 14:39 [facility] [id number]) Subjective Physical Therapy Visit Type Type Treatment Note Visit Start Time 14:00 Visit Stop Time 14:25 Total Visit Minutes 25 Number of PAYROLL REPRESENTATIVE Visits 0 Physical Therapy Visit Comments Patient Comments pt agreeable to get OOB. Reported pain after dressing reinforcement. M4 PT-IP Mobility and Gait Start: 11/07/18 15:13 Freq: NEEDED Status: Active Protocol: Document 11/13/18 14:25 [facility] (Rec: 11/13/18 14:39 [facility] [id number]) PT-Bed Mobility Assessment Rolling Level of Assist Standby Assistance Supine to Sit Supine to Sit Standby Assistance Bedrails Sit to Supine Sit to Supine Minimal Assistance 2 Person Assistance Bedrails Scooting Scooting to Edge of Bed Standby Assistance Scooting Up and Down in Bed Standby Assistance PT-Transfer Assessment Sit to and From Stand Sit to and from Stand Standby Assistance Use of Upper Extremities Transfers Transfer Destination Bedside Commode Transfer Technique Stand Step Pivot Transfer Ability Level of Assist Standby Assistance Comments Mobility Comments transfer to BSC, voided 50 cc (LOOM FIXER HELPER notified), stepped back to bed, bent over bed to allow for dressing reinforcement x1 min. Back into bed and rolled SBA x2 for further dressing reinforcement. M5 PT-IP Objective Assessments Start: 11/07/18 15:13 Freq: NEEDED Status: Active Protocol: Document 11/07/18 10:00 [facility] (Rec: 11/07/18 15:55 [facility] [id number]) Orientation Orientation/Cognition Orientation Name Place Language Function Ability Garbled Speech Comments Fades in and out of alertness. Gross Range of Motion Upper Extremity ROM Assessment Within Functional Limits Lower Extremity ROM Assessment Bilaterally Impaired Impairments Excessive edema into BLEs Strength Upper Extremity Strength Assessment Within Functional Limits Comments Strength Comments LE strength difficult to assess due to pain from ulcers . Has functional strength to walk short distances with FWW. Sensation Assessment Sensation Gross Sensation WNL Muscle Tone Muscle Tone WNL Yes M6 PT-IP Treatment Start: 11/07/18 15:13 Freq: NEEDED Status: Active Protocol: Document 11/10/18 14:26 [facility] (Rec: 11/10/18 14:45 [facility] [id number]) Physical Therapy Treatment Exercises Exercises Ankle Pumps Gluteal Sets Knee ROM Measurement bridging Education Education Provided Safety Other Treatments Other Treatment Performed Educated patient on circulation for healing, postion changes and increasing time spent standing/walking to avoid further pressure ulcer development. M7 PT-IP Assessment and Plan Start: 11/07/18 15:13 Freq: NEEDED Status: Active Protocol: Document 11/13/18 14:25 [facility] (Rec: 11/13/18 14:39 [facility] [id number]) PT Summary Assessment and Plan Summary Progress Towards Goals Slow Progress due to Pain Slow Progress due to Medical Issues Slow Progress due to Activity Tolerance Assessment Summary Pt transferred to [facility] and had dressing reinforced but did not ambulate more than transfer steps at this time due to pain and fatigue. His HR increased to 125 bpm standing and leaning over bed for dressing changes and O2 saturation decreased to <85% on RA during mobility (refused O2 via NC during mobility). Discussed with pt in great detail this session that he needs to continue to progress and participate in mobility, otherwise rehabilitation services may require to d/c pt . Pt verbalized understanding and willingness to participate but not at this time after dressing changes. Will continue to monitor progress. Goals Bed Mobility Goal Independent Transfer Goal Independent Front Wheeled Walker Four Wheeled Walker Gait Goal Standby Assistance Front Wheel Walker Four Wheel Walker Gait Distance 50 Days to Meet Goals 10 Frequency of Treatment Frequency Of Treatment Once a Day Treatment Plan Other Recommendations and Next Treatment gait with FWW- increased Focus coaxing required to motivate pt to progress ambulation Recommendations To Nursing Amount of Assist Needed 1 Person Assist Discharge Recommendations PT Discharge Recommendations SNF Rehab
--- NOTE | 2018-11-13 14:21 | PC.NURSE ---
Dressing changed done early this shit. Cleansed with gauze saturated in normal saline. Avelyn bandages applied. Patient tolerated poorly. Bandages not sticking well to skin. Later in the shift, Dressings that were applied were saturated serosanguineous drainage. The bedding was also saturated. One dressing fell off. Changed turn pads. Reinforced dressings with ABD's and paper tape. Patient tolerated well. Turned on his side in bed which gave me better access to the wound. Requested no tape on his scrotum. ABD placed under wound without tape to help absorb drainage. Wound beds red and beefy.
--- NOTE | 2018-11-13 14:22 | PC.NURSE ---
agree with Arielle QUINONES charting. pt up to BSC SBA. wound care done. pt somulent after Methadone PO given. No snacks this shift given.
--- NOTE | 2018-11-13 17:43 | PC.NURSE ---
1500- Safe handoff from day RN. Turning in bed independently; 1PA to BSC. Pt sleeping in bed; safety check complete. Pt allowed 1 snack per shift. 1600- Pt refused PO prednisone medication; did not state why just stated I don't want to take that tonight. All other PO meds swallowed w/o difficulty. 1900- Up to BSC SBA; dressings reinforced. 2199- Dressings changed & cleansed w/ sterile saline. Pt instructed not to itch or touch wounds, and educated on why. Neglected to follow education, continues to pick at wounds. IV dressing changed.
[2018-11-14] VITALS (12 sets, daily range): BP systolic 100–125; BP diastolic 47–68; PULSE 80–104; RESP 14–20; TEMP 36.3–37.2; O2SAT 92–100
[2018-11-14] MEDS: ACETAMINOPHEN 325 MG TABLET 650 MG PO (03:38)
--- NOTE | 2018-11-14 04:18 | PC.NURSE ---
Patient up to BSC. Voided. Dressings fell partway off during transfer. Replaced dressings to the best of my ability. Patient could not straighten his leg for better dressing adherence. Will check when he next gets up, and replace/reinforce prn.
[2018-11-14] MEDS: ALBUTEROL 2.5 MG/3 ML NEB (ADULT) INH (09:39)
[2018-11-14] MEDS: OLANZapine 2.5 MG TABLET 15 MG PO (09:42)
[2018-11-14] MEDS: LACTOBACILLUS ACIDOPHILUS TABLET 1 EACH PO ×2 (09:42→17:05)
[2018-11-14] MEDS: ENOXAPARIN 30 MG/0.3 ML SYRINGE SUBCUT ×2 (09:42→21:42)
[2018-11-14] MEDS: ASCORBIC ACID 500 MG TABLET PO (09:42)
[2018-11-14] MEDS: FERROUS SULFATE 325 MG TABLET PO (09:42)
[2018-11-14] MEDS: GABAPENTIN 300 MG CAPSULE PO ×3 (09:42→21:43)
[2018-11-14] MEDS: DULOXETINE 30 MG CAPSULE PO (09:42)
[2018-11-14] MEDS: SODIUM CHLORIDE 0.9% FLUSH 10 ML IV ×2 (09:44→21:44)
[2018-11-14] MEDS: METHADONE 10 MG TABLET 85 MG PO (09:44)
--- NOTE | 2018-11-14 11:40 | PT.IPTN ---
Current Diagnoses Pressure ulcer of left buttock, stage 2 (11/03/18) Surgery Performed Operation Date: 11/03/18 15:30 Actual Procedures p Incision and Drainage upper bilateral legs-POSTERIOR(Bilateral) - Yuliet Pratt MD Physical Therapy Treatment Note Notes RN reports wound care team is coming to see patient for the possibility of a wound vac. Will hold PT session today until after this. If a wound vac is able to be placed then pt will be much more safe to mobilize, especially out of the room.
--- NOTE | 2018-11-14 15:37 | P.PN_ITS ---
Subjective Date Patient Seen: 11/14/18 Interval history: Babatunde Fitzgerald is a 38-year-old male with a past medical history significant for morbid obesity (BMI 80), asthma on chronic prednisone, obesity hypoventilation syndrome, RAJESH, chronic pain with methadone dependence, and chronic stage II decubitus pressure ulcerations of scrotum and posterior thighs who presented for increased pain and drainage of stage II decubitus pressure ulcerations of posterior thighs. The patient is resting in bed comfortably. He endorses pain of thighs and he is ?hurting?. He then immediately asked me for a popsicle. He continues to be more awake and alert with the decrease in his methadone but he does nod off very easily and will continue to slowly taper down. Wound Care placing wound VAC today and had to wait for a special connector to be delivered. He denies headache, shortness of breath, chest pain, abdominal pain, nausea, vomiting, fever, chills, dysuria, diarrhea or constipation. He is voiding and eliminating without difficulty. He is up ambulating very minimally with full assistance. Exam Vital Signs (past 8 hours): - 11/14/18 09:28 11/14/18 09:35 11/14/18 09:39 Temperature 98.2 F Pulse Rate 82 Respiratory Rate 14 Blood Pressure 107/52 L Pulse Oximetry 100 100 100 11/14/18 09:40 11/14/18 13:30 Temperature 99.0 F Pulse Rate 101 H 104 H Respiratory Rate 18 18 Blood Pressure 117/68 Pulse Oximetry 96 92 Fraction of Inspired Oxygen 24 Oxygen Delivery Method Room Air Oxygen Flow Rate 2 Narrative Exam Narrative: General: Young morbidly obese gentleman lying in bed and in no acute distress, well-developed, well-nourished, alert but nods off easily during mid conversation. HEENT: Normocephalic, atraumatic. External ears without defect. Pupils equal, round, and reactive to light. Anicteric sclerae, moist conjunctivae, and no lid lag. Several excoriations today on face. Neck: Supple with full range of motion. No lymphadenopathy or thyromegaly. Cardiovascular: Heart sounds distant but appear regular rate and rhythm without murmurs, rubs, or gallops appreciated. Pulmonary: Clear to auscultation bilaterally without crackles, wheezes, or rhonchi. Normal respiratory effort with no use of accessory muscles. Abdomen: Soft, obese, bowel sounds present, nontender, nondistended. No hepatosplenomegaly or masses appreciated. Extremities: No clubbing or cyanosis. Brawny edema to knees bilaterally. Skin: Normal temperature, turgor, and texture; 2 stage II pressure ulcers on scrotum and 2 stage II pressure ulcers on posterior thighs bilaterally (please see wound care note) with significant serosanguineous drainage but pink and beefy and do not appear to be infected with mild granulation tissue in place. Neurological: Cranial nerves grossly intact. Psychiatric: Depressed mood and flat affect. Alert but nods off easily. Poor insight into disease process. 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 Objective Labs Result Diagrams: 11/12/18 05:09 11/09/18 05:35 Assessment & Plan Assessment & Plan narrative: Babatunde Fitzgerald is a 38-year-old male with a past medical history significant for morbid obesity (BMI 80), asthma on chronic prednisone, obesity hypoventilation syndrome, RAJESH, chronic pain with methadone dependence, and chronic stage II decubitus pressure ulcerations of scrotum and posterior thighs who presented for increased pain and drainage of stage II decubitus pressure ulcerations of posterior thighs. 1. Acute on chronic stage II decubitus pressure ulcerations of posterior thighs, with polymicrobial infection versus colonization, status post debridement, present on admission. Active. -Post-debridement by General Surgery. Patient's wounds initially look infected upon admission now status post debridement are not infected. Discussed the patient again with infectious disease Dr. Cotton at [facility] who recommended a 10 day to stop / course of Augmentin to cover MSSA, strep and acinobacter. Will place on a probiotic as well. -Consulted wound care who plan to place a wound VAC due to significant serosa nguineous drainage and the need for multiple supplies due to his obesity making it quite complex wound management. Placement today. -His wound care management is an ongoing [place] as patient is noncompliant with follow-up to wound care clinic and is unable to take care of himself adequately at home. Awaiting placement at a SNF ([facility]) hopefully tomorrow. 2. Anemia of chronic disease, present on admission. Stable. -Continue on Iron and vitamin-C. -Hemoglobin and hematocrit stable. No overt signs of bleeding. Pressure ulcerations are draining serosanguinous as above. -Monitor H&H daily. Transfusion goal < 7.0. 3. Chronic pain with opiate dependence, present on admission. Stable. -Decreased dose of Methadone to 80 mg daily due to over sedation (recently decreased to 85 mg outpatient and plan to work with PCP outpatient to continue tapering down). -His methadone dependence is due to history of opioid dependence. 4. Depression and anxiety, chronic, present on admission. Stable. -Continue home Duloxetine and Olanzapine 15 mg daily not 20 mg. Not on lorazepam as an outpatient. 5. Pulmonary hypertension and right sided CHF, chronic and secondary to morbid obesity, OHS, RAJESH, and asthma, present on admission. Stable. -Decreased prednisone to 10 mg with 5 mg taper weekly per PCP Dr. Hernández. Continue albuterol as needed, Advair and CPAP per RT. -Echocardiogram demonstrated right ventricle is moderate to severely dilated with moderately reduced right ventricular systolic function with severe biatrial enlargement 6. Morbid obesity, chronic, present on admission. Stable. -BMI 80 on admission. -Mobilize out of bed as much as he can tolerate. -Limit snacks to 2 per day and follow a heart healthy diet. NO CHIPS, JUICE, POPSICLES. -Patient will benefit from slow taper off prednisone and decrease methadone to lowest possible dose to treat pain. 7. Postoperative hypoxemia due to prolonged sedation, not present on admission. -Intermittantly using oxygen. Suspect Obesity hypoventilation syndrome as above. 8. Mild QTc prolongation, secondary to medications, present on admission. Stable. -QTc 476 ms. Patient is on methadone, olanzapine, and duloxetine. -Avoid other QTC prolonging agents such as Zofran, etc. if possible. Disposition: Patient will need a long term facility at this point for wound VAC and continued wound management. Likely to be medically stable and ready for discharge in 1-2 days after placement of wound VAC today by wound care. Quality VTE Deep Vein Thrombosis/Pulmonary Embolism Present on Admission: No
--- NOTE | 2018-11-14 15:47 | CM.DPNOTE ---
DCP/continued: Reviewed chart. Placed call to [facility] this AM after discussing case with Cindy Gaspar from [facility]. Per Cindy, her last impression was that [facility] was evaluating? Received vm from [facility] verifying that they are unable to accommodate patient's needs. Therefore, had discussion with Cinyd form [facility] requesting placement assistance. Cindy reports that assigned d/c merchandise planning manager is Yuliet Mendoza ph# [phone]. Left message with Yuliet indicating that CM team needs assistance locating placement. Awaiting return phone call. In addition, waiting for wound vac to be placed. P: Pending. Attempting SNF placement. [facility] made aware of all the challenges in locating SNF. JOSÉ LUIS Noriega
--- NOTE | 2018-11-14 15:54 | OT.IP.TRT ---
Current Diagnoses Pressure ulcer of left buttock, stage 2 (11/03/18) Surgery Performed Operation Date: 11/03/18 15:30 Actual Procedures p Incision and Drainage upper bilateral legs-POSTERIOR(Bilateral) - Yuliet Pratt MD Occupational Therapy Treatment Note M2 OT-IP Current Condition Start: 11/07/18 16:03 Freq: Status: Active Protocol: Document 11/07/18 10:00 [facility] (Rec: 11/07/18 16:58 [facility] [id number]) Occupational Therapy Current Condition Current Condition Evaluation Date 11/07/18 Treatment Diagnosis Chronic ulceration on perineum sacrum and scrotal areas Diagnosis Onset Date 11/03/18 M3 OT- IP Subjective and Pain Start: 11/07/18 16:03 Freq: Status: Active Protocol: Document 11/14/18 12:00 [facility] (Rec: 11/14/18 15:54 [facility] [id number]) OT- Subjective Occupational Therapy Visit Type Type Patient Unavailable Notes Pt waiting to have wound vac placed, therefore to check on pt tomorrow when hopefully with wound vac on more appropriate to mobilize.
--- NOTE | 2018-11-14 16:27 | PT.IPTN ---
Current Diagnoses Pressure ulcer of left buttock, stage 2 (11/03/18) Surgery Performed Operation Date: 11/03/18 15:30 Actual Procedures p Incision and Drainage upper bilateral legs-POSTERIOR(Bilateral) - Yuliet Pratt MD Physical Therapy Treatment Note M2 PT-IP Current Condition Start: 11/07/18 15:13 Freq: NEEDED Status: Active Protocol: Document 11/07/18 10:00 [facility] (Rec: 11/07/18 15:55 [facility] [id number]) Physical Therapy Current Condition Current Condition Evaluation Date 11/07/18 Treatment Diagnosis Recurring decubitus ulcers Weight Bearing Status Weight Bearing Status Full Weight Bearing M3 PT-IP Subjective Start: 11/07/18 15:13 Freq: NEEDED Status: Active Protocol: Document 11/14/18 16:00 LJ (Rec: 11/14/18 16:27 [facility] [email or web address]) Subjective Physical Therapy Visit Type Type Treatment Note Visit Start Time 16:00 Visit Stop Time 16:16 Total Visit Minutes 16 Notes Pt just finished with wound vac application. Initially refused but when advised he would be discharged he agreed to get up and walk in room. Requested to use [facility] [place]4 PT-IP Mobility and Gait Start: 11/07/18 15:13 Freq: NEEDED Status: Active Protocol: Document 11/14/18 16:00 LJ (Rec: 11/14/18 16:27 LJ [email or web address]) PT-Bed Mobility Assessment Rolling Level of Assist Standby Assistance Supine to Sit Supine to Sit Standby Assistance Bedrails Sit to Supine Sit to Supine Standby Assistance Bedrails Scooting Scooting to Edge of Bed Standby Assistance Scooting Up and Down in Bed Standby Assistance PT-Transfer Assessment Sit to and From Stand Sit to and from Stand Standby Assistance Use of Upper Extremities Equipment Transfer Assistive Device Gait Belt Front Wheeled Walker Transfers Transfer Destination Bed Bedside Commode Transfer Technique Stand Step Pivot Comments Mobility Comments trnsfer to BSC then back to bed. Pt required assist with wound vac and getting LEs into bed one at a time Gait Assessment Gait Gait Assistance Required: Standby Assistance 1 Person Assist Distance (Feet) 10 Assistive Devices Assistive Device Front Wheeled Walker Gait Deviations General Gait Pattern Decreased Stride Length Decreased Feet Clearance Flexed Trunk Wide Based Gait Factors Limiting Gait Function Factors Limiting Gait Function Decreased Activity Tolerance Decreased Sensation Decreased Strength Difficulty Following Directions Limited Range of Motion Pain Poor Safety Awareness Comments Gait Comments Pt ambulated from EOB to BSC then to foot of bed then c/o back hurting and ambulated back to bed. Required assist with LEs getting back into bed . M5 PT-IP Objective Assessments Start: 11/07/18 15:13 Freq: NEEDED Status: Active Protocol: Document 11/07/18 10:00 [facility] (Rec: 11/07/18 15:55 [facility] [id number]) Orientation Orientation/Cognition Orientation Name Place Language Function Ability Garbled Speech Comments Fades in and out of alertness. Gross Range of Motion Upper Extremity ROM Assessment Within Functional Limits Lower Extremity ROM Assessment Bilaterally Impaired Impairments Excessive edema into BLEs Strength Upper Extremity Strength Assessment Within Functional Limits Comments Strength Comments LE strength difficult to assess due to pain from ulcers . Has functional strength to walk short distances with FWW. Sensation Assessment Sensation Gross Sensation WNL Muscle Tone Muscle Tone WNL Yes M6 PT-IP Treatment Start: 11/07/18 15:13 Freq: NEEDED Status: Active Protocol: Document 11/14/18 16:00 [facility] (Rec: 11/14/18 16:27 LJ [email or web address]) Physical Therapy Treatment Exercises Knee ROM Measurement bridging x3 to reposition M7 PT-IP Assessment and Plan Start: 11/07/18 15:13 Freq: NEEDED Status: Active Protocol: Document 11/14/18 16:00 LJ (Rec: 11/14/18 16:27 LJ [email or web address]) PT Summary Assessment and Plan Summary Progress Towards Goals Slow Progress due to Pain Slow Progress due to Medical Issues Slow Progress due to Activity Tolerance Assessment Summary Pt ambulated to BSC then several step toward foot of bed. C/o back pain and returned to bed requiring assist with lifting LEs. Pt advised of discharge if continual refusal. Stated that he would get up and walk with PT tomorrow. Recommendations To Nursing Amount of Assist Needed 1 Person Assist
[2018-11-14] MEDS: predniSONE 10 MG TABLET PO (17:05)
--- NOTE | 2018-11-14 17:09 | PC.NURSE ---
Wound Nurse Consult Note Placed [employer] Wound Vac this afternoon. Wound Vac at 125mmHg to both Posterior Leg wounds and were bridged with a Y connector to connect to one [employer] Wound Vac pump. The Right Posterior Leg wound has a beefy red wound base with granulation tissue. There is no slough. The wound measures 9.0 x 13.0 x 1.6. The sarah-wound is without redness or maceration. I cleaned the wound with Normal Saline pat dry. I also cleaned the sarah-wound skin and between his leg folds with foaming soap and dried. We used skin prep around the wound and on the side of his leg for drape and bridge foam placement two pieces of black foam were used. One in the wound and one to track up the inner thigh.The foam was then tracked up between his groin to his inner thigh. From there we connected the tubing to the Y connector. The Left Posterior Leg wound also has a beefy red wound base with granulation tissue. There is no slough, but a large amount of serosanguenous drainage. The wound measures 6.0 x 12.0 x o.4 cm. The sarah-wound is without redness or maceration. The wound was cleaned with Normal Saline, pat dry and the skin and leg folds were cleaned with foaming soap and dried. Again we prepared the wound and skin for the vac placement like we did with the Right leg. We did use three pieces of black foam as I cut the one in the wound too small, so two pieces of foam are in this wound and one to bridge the wound vac. Babatunde was cooperative with the dressing application. Photos were taken of both the right and left leg wounds.
[2018-11-15] VITALS (12 sets, daily range): BP systolic 114–144; BP diastolic 51–69; PULSE 79–99; RESP 15–19; TEMP 36.5–37.1; O2SAT 80–96
--- NOTE | 2018-11-15 01:09 | PC.NURSE ---
Addendum entered by Yessi Alonzo R.N. 11/15/18 02:31: Pt requesting snacks, educated him that he has a 2 snack a day limit that was used on Evening shift and will resume at 0800. Pt upset because it's only crackers. This RN has to reinforce to pt not to pick at wound vac dressings as it was noticed that he was peeling up the edge of L anterior dressing. Reinforced dressing and air leak gauge is green and stable. Pt is asleep at this time but will continue to check pt frequently. Original Note: Shift note: Received pt from evening shift. Multiple sites of air leakage to right posterior thigh wound vac dressing. Removed peeled areas and reinforced the edge proximal to buttock and placed additional reinforcements to center of wound. Educated pt to try and lift bottom when repositioning self versus sliding onto bed to prevent further shearing of dressing. At this time air leak is in the green and stable.
[2018-11-15 06:45] LABS: Add Manual Diff / Slide Review NO; Basophils Absolute Auto 0 /uL (0-100); Basophils Percent Auto 0.2 % (0-2); Eosinophils Absolute Auto 100 /uL (0-450); Eosinophils Percent Auto 1.4 % (2-4); Hematocrit 25.8 % (41-53); Lymphocytes Absolute Auto 1400 /uL (1100-4500); Lymphocytes Percent Auto 33.2 % (25-40); Mean Corpuscular HGB Conc 30.9 % (30-36); Mean Corpuscular Hemoglobin 25.5 PG (26-34); Mean Corpuscular Volume 82.5 fL (80-100); Monocytes Absolute Auto 400 /uL (0-900); Monocytes Percent Auto 9.6 % (3-14); Neutrophils Absolute Auto 2400 /uL (1500-7000); Neutrophils Percent Auto 55.6 % (50-75); Platelet Count 136 X10^3/uL (150-400); Red Blood Cell Count 3.12 X10^6/uL (4.5-5.9); Red Cell Distribution Width 17.8 % (11.6-14.8); White Blood Cell Count 4.2 X10^3/uL (4.5-11.0)
[2018-11-15 06:56] LABS: Alanine Aminotransferase 19 IU/L (21-72); Albumin 2.5 g/dL (3.5-5.0); Albumin Globulin Ratio 0.8 (1.0-2.8); Alkaline Phosphatase 62 U/L (38-126); Aspartate Aminotransferase 14 IU/L (17-59); Bilirubin Total 0.2 mg/dL (0.2-1.3); Blood Urea Nitrogen 6 mg/dL (9-20); Carbon Dioxide 36 mmol/L (22-32); Chloride 99 mmol/L (98-107); Estimated Glomerular Filt Rate > 60.0 mL/min (>60); Globulin 3.2 g/dL (1.7-4.1); Glucose 82 mg/dL (70-100); HEMOLYSIS < 15 (0-50); Magnesium 2.1 mg/dL (1.6-2.3); Potassium 3.9 mmol/L (3.4-5.1); Sodium 138 mmol/L (137-145); Total Protein 5.7 g/dL (6.3-8.2)
[2018-11-15 07:03] LABS: Hemoglobin A1C% w Est Avg Glu 5.4 % (4.0-6.0)
--- NOTE | 2018-11-15 08:04 | PM.PN.1 ---
Subjective Date Patient Seen: 11/15/18 Interval history: Babatunde Fitzgerald is a 38-year-old male with a past medical history significant for morbid obesity (BMI 80), asthma on chronic prednisone, obesity hypoventilation syndrome, RAJESH, chronic pain with methadone dependence, and chronic stage II decubitus pressure ulcerations of scrotum and posterior thighs who presented for increased pain and drainage of stage II decubitus pressure ulcerations of posterior thighs. The patient is resting in bed comfortably. The patient continues to request food constantly almost in an obsessive type behavior. He also is somewhat noncompliant with nursing staff especially at night. He appears to be more awake and alert today with continued decrease in methadone dosing. Wound Care placed wound VAC for which patient continues to pick at dressing due to pruritus. He has generalized pruritus and request Benadryl. He denies headache, shortness of breath, chest pain, abdominal pain, nausea, vomiting, fever, chills, dysuria, diarrhea or constipation. He is voiding and eliminating without difficulty. He is up ambulating very minimally with full assistance. Exam Vital Signs (past 8 hours): - 11/15/18 00:59 11/15/18 06:38 Temperature 97.8 F Pulse Rate 79 Respiratory Rate 18 Blood Pressure 121/51 L Pulse Oximetry 96 95 Fraction of Inspired Oxygen 24 Oxygen Delivery Method Nasal Cannula Oxygen Flow Rate 2 Narrative Exam Narrative: General: Young morbidly obese gentleman lying in bed and in no acute distress, well-developed, well-nourished, alert but nods off easily during mid conversation. HEENT: Normocephalic, atraumatic. External ears without defect. Pupils equal, round, and reactive to light. Anicteric sclerae, moist conjunctivae, and no lid lag. Several excoriations on face. Neck: Supple with full range of motion. No lymphadenopathy or thyromegaly. Cardiovascular: Heart sounds distant but appear regular rate and rhythm without murmurs, rubs, or gallops appreciated. Pulmonary: Clear to auscultation bilaterally without crackles, wheezes, or rhonchi. Normal respiratory effort with no use of accessory muscles. Abdomen: Soft, obese, bowel sounds present, nontender, nondistended. No hepatosplenomegaly or masses appreciated. Extremities: No clubbing or cyanosis. Brawny edema to knees bilaterally. Skin: Normal temperature, turgor, and texture; 2 stage II pressure ulcers on scrotum and 2 stage II pressure ulcers on posterior thighs bilaterally (please see wound care note) with significant serosanguineous drainage but pink and beefy and do not appear to be infected with mild granulation tissue in place. Neurological: Cranial nerves grossly intact. Psychiatric: Depressed mood and flat affect. Alert but nods off easily. Poor insight into disease process. 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 Objective Labs Result Diagrams: 11/15/18 06:16 11/15/18 06:16 Labs: Laboratory Results - last 24 hr 11/15/18 11/15/18 11/15/18 06:16 06:16 06:16 WBC 4.2 L RBC 3.12 L Hgb 8.0 L Hct 25.8 L MCV 82.5 MCH 25.5 L MCHC 30.9 RDW 17.8 H Plt Count 136 L Neut % (Auto) 55.6 Lymph % (Auto) 33.2 [place] % (Auto) 9.6 Eos % (Auto) 1.4 L Baso % (Auto) 0.2 Neut # (Auto) 2400 Lymph # (Auto) 1400 [place] # (Auto) 400 Eos # (Auto) 100 Baso # (Auto) 0 Sodium 138 Potassium 3.9 Chloride 99 Carbon Dioxide 36 H BUN 6 L Creatinine 0.50 L Estimated GFR > 60.0 BUN/Creatinine Ratio 12.0 Glucose 82 Hemoglobin A1c 5.4 Calcium 8.0 L Magnesium 2.1 Total Bilirubin 0.2 AST 14 L ALT 19 L Alkaline Phosphatase 62 Total Protein 5.7 L Albumin 2.5 L Globulin 3.2 Albumin/Globulin Ratio 0.8 L Assessment & Plan Assessment & Plan narrative: Babatunde Fitzgerald is a 38-year-old male with a past medical history significant for morbid obesity (BMI 80), asthma on chronic prednisone, obesity hypoventilation syndrome, RAJESH, chronic pain with methadone dependence, and chronic stage II decubitus pressure ulcerations of scrotum and posterior thighs who presented for increased pain and drainage of stage II decubitus pressure ulcerations of posterior thighs. 1. Acute on chronic stage II decubitus pressure ulcerations of posterior thighs, with polymicrobial infection versus colonization, status post debridement, present on admission. Active. -Post-debridement by General Surgery. Patient's wounds initially look infected upon admission now status post debridement are not infected. Discussed the patient again with infectious disease Dr. Cotton at [facility] who recommended a 10 day to stop / course of Augmentin to cover MSSA, strep and acinobacter. Will place on a probiotic as well. -Consulted wound care who placed wound VAC due to significant serosanguineous drainage and the need for multiple supplies due to his obesity making it quite complex wound management. -His wound care management is an ongoing [place] as patient is noncompliant with follow-up to wound care clinic and is unable to take care of himself adequately at home. Awaiting placement at a SNF ([facility]) and [facility] [employer] [facility] [facility] requesting assistance from his insurance. 2. Anemia of chronic disease, present on admission. Stable. -Continue on Iron and vitamin-C. -Hemoglobin and hematocrit stable. No overt signs of bleeding. Pressure ulcerations are draining serosanguinous as above. -Monitor H&H daily. Transfusion goal < 7.0. 3. Chronic pain with opiate dependence, present on admission. Stable. -Decreased dose of Methadone to 80 mg daily due to over sedation (recently decreased to 85 mg outpatient and plan to work with PCP outpatient to continue tapering down). -His methadone dependence is due to history of opioid dependence. 4. Depression and anxiety, chronic, present on admission. Stable. -Continue home Duloxetine and Olanzapine 15 mg daily not 20 mg. Not on lorazepam as an outpatient. 5. Pulmonary hypertension and right sided CHF, chronic and secondary to morbid obesity, OHS, RAJESH, and asthma, present on admission. Stable. -Decreased prednisone to 10 mg with 5 mg taper weekly per PCP Dr. Hernández. Continue albuterol as needed, Advair and CPAP per RT. -Echocardiogram demonstrated right ventricle is moderate to severely dilated with moderately reduced right ventricular systolic function with severe biatrial enlargement 6. Morbid obesity, chronic, present on admission. Stable. -BMI 80 on admission. -Mobilize out of bed as much as he can tolerate. -Limit snacks to 2 per day and follow a heart healthy diet. NO CHIPS, JUICE, POPSICLES. -Patient will benefit from slow taper off prednisone and decrease methadone to lowest possible dose to treat pain. 7. Postoperative hypoxemia due to prolonged sedation, not present on admission. -Intermittently using oxygen. Suspect Obesity hypoventilation syndrome as above. 8. Mild QTc prolongation, secondary to medications, present on admission. Stable. -QTc 476 ms. Patient is on methadone, olanzapine, and duloxetine. -Avoid other QTC prolonging agents such as Zofran, etc. if possible. Disposition: Patient will need a assisted facility for wound VAC and continued wound management. Awaiting placement. Quality VTE Deep Vein Thrombosis/Pulmonary Embolism Present on Admission: No
[2018-11-15] MEDS: OLANZapine 2.5 MG TABLET 15 MG PO (09:19)
[2018-11-15] MEDS: METHADONE 10 MG TABLET 80 MG PO (09:19)
[2018-11-15] MEDS: GABAPENTIN 300 MG CAPSULE PO ×2 (09:20→20:25)
[2018-11-15] MEDS: ENOXAPARIN 30 MG/0.3 ML SYRINGE SUBCUT ×2 (09:20→21:18)
[2018-11-15] MEDS: ASCORBIC ACID 500 MG TABLET PO (09:20)
[2018-11-15] MEDS: FERROUS SULFATE 325 MG TABLET PO (09:20)
[2018-11-15] MEDS: DULOXETINE 30 MG CAPSULE PO (09:20)
[2018-11-15] MEDS: LACTOBACILLUS ACIDOPHILUS TABLET 1 EACH PO ×2 (09:20→16:44)
[2018-11-15] MEDS: SODIUM CHLORIDE 0.9% FLUSH 10 ML IV ×2 (09:21→20:25)
--- NOTE | 2018-11-15 13:38 | OT.IP.TRT ---
Current Diagnoses Pressure ulcer of left buttock, stage 2 (11/03/18) Surgery Performed Operation Date: 11/03/18 15:30 Actual Procedures p Incision and Drainage upper bilateral legs-POSTERIOR(Bilateral) - Yuliet Pratt MD Occupational Therapy Treatment Note M2 OT-IP Current Condition Start: 11/07/18 16:03 Freq: Status: Active Protocol: Document 11/07/18 10:00 [facility] (Rec: 11/07/18 16:58 [facility] [id number]) Occupational Therapy Current Condition Current Condition Evaluation Date 11/07/18 Treatment Diagnosis Chronic ulceration on perineum sacrum and scrotal areas Diagnosis Onset Date 11/03/18 M3 OT- IP Subjective and Pain Start: 11/07/18 16:03 Freq: Status: Active Protocol: Document 11/15/18 13:35 [facility] (Rec: 11/15/18 13:38 [facility] [id number]) OT- Subjective Occupational Therapy Visit Type Type Discharge Summary Notes Pt able to transfer to [facility] on his own and stand at this the sink for grooming needs. Pt continues to not want to wear clothing, and now has wound vac in place. Pt can independently do own theraband exercises on his own. Therefore discharge pt from OT services. Pt still awaiting placement for facility to help with his wounds.
--- NOTE | 2018-11-15 14:24 | CM.DPC ---
DCP: Received phone call from [facility] social worker/Lianna Galicia re: patient and d/c planning. Per Lianna, patient has not been following up at [facility]. Lianna has tried to assist and done home visit in August 2018. She reports huge decline over last 6-8 months. Lianna reports that last February patient was ambulating with walker to/from clinic. Lianna unsure what changed so dramatically to make patient self neglect so badly. Lianna reports that family/friends have been distant from patient and she confirms that he does not have a lot of support outside of the hospital. Lianna reports that they continue to make attempts to help but have fallen short. Lianna plans to ask Eun RUBIN to call hospitalist to get update. She also recommends Methadone taper. Patient with clear evidence of substance abuse and she reports that [facility] was starting taper process because of patient's non-compliance. Lianna will discuss with her team and reports [place] She plans to call and check on whether or not patient eligible. In the meantime, no word from [facility] today re: voice mail left yesterday to Yuliet Mendoza [phone] ([facility] d/c regional planner). P: Continue to attempt placement and work with community to secure safe d/c plan. [facility] will need to be part of d/c plan because if patient accepted at SNF will most likely need higher rate secondary to his medical needs. JOSÉ LUIS Noriega
--- NOTE | 2018-11-15 14:39 | PT.IPTN ---
Current Diagnoses Pressure ulcer of left buttock, stage 2 (11/03/18) Surgery Performed Operation Date: 11/03/18 15:30 Actual Procedures p Incision and Drainage upper bilateral legs-POSTERIOR(Bilateral) - Yuliet Pratt MD Physical Therapy Treatment Note M2 PT-IP Current Condition Start: 11/07/18 15:13 Freq: NEEDED Status: Active Protocol: Document 11/07/18 10:00 [facility] (Rec: 11/07/18 15:55 [facility] [id number]) Physical Therapy Current Condition Current Condition Evaluation Date 11/07/18 Treatment Diagnosis Recurring decubitus ulcers Weight Bearing Status Weight Bearing Status Full Weight Bearing M3 PT-IP Subjective Start: 11/07/18 15:13 Freq: NEEDED Status: Active Protocol: Document 11/15/18 14:33 [facility] (Rec: 11/15/18 14:39 [facility] [id number]) Subjective Physical Therapy Visit Type Type Treatment Note Visit Start Time 14:10 Visit Stop Time 14:30 Total Visit Minutes 20 Notes Patient agreeable to walk in room. Therapy Pain Assessment Pain When Pain Assessed During Mobility Pain Present Pain Present Pain Reported Location Bilateral Upper Posterior Leg Description Aching Pain Management Techniques Distraction Re-positioning M4 PT-IP Mobility and Gait Start: 11/07/18 15:13 Freq: NEEDED Status: Active Protocol: Document 11/15/18 14:33 [facility] (Rec: 11/15/18 14:39 [facility]AK [id number]) PT-Bed Mobility Assessment Rolling Type of Rolling Roll to Right Level of Assist Standby Assistance Supine to Sit Supine to Sit Standby Assistance Bedrails Sit to Supine Sit to Supine Standby Assistance Bedrails Scooting Scooting to Edge of Bed Standby Assistance Scooting Up and Down in Bed Standby Assistance PT-Transfer Assessment Sit to and From Stand Sit to and from Stand Standby Assistance Use of Upper Extremities Equipment Transfer Assistive Device Gait Belt Front Wheeled Walker Transfers Transfer Destination Bed Comments Mobility Comments mod assist for right LE into bed Gait Assessment Gait Gait Assistance Required: Standby Assistance 1 Person Assist Distance (Feet) 12 Assistive Devices Assistive Device Front Wheeled Walker Orthotic/Prosthetic Devices or Brace: No Gait Deviations General Gait Pattern Decreased Stride Length Decreased Feet Clearance Flexed Trunk Wide Based Gait Factors Limiting Gait Function Factors Limiting Gait Function Decreased Activity Tolerance Decreased Sensation Decreased Strength Difficulty Following Directions Limited Range of Motion Pain Poor Safety Awareness M5 PT-IP Objective Assessments Start: 11/07/18 15:13 Freq: NEEDED Status: Active Protocol: Document 11/07/18 10:00 [facility] (Rec: 11/07/18 15:55 [facility] [id number]) Orientation Orientation/Cognition Orientation Name Place Language Function Ability Garbled Speech Comments Fades in and out of alertness. Gross Range of Motion Upper Extremity ROM Assessment Within Functional Limits Lower Extremity ROM Assessment Bilaterally Impaired Impairments Excessive edema into BLEs Strength Upper Extremity Strength Assessment Within Functional Limits Comments Strength Comments LE strength difficult to assess due to pain from ulcers . Has functional strength to walk short distances with FWW. Sensation Assessment Sensation Gross Sensation WNL Muscle Tone Muscle Tone WNL Yes M6 PT-IP Treatment Start: 11/07/18 15:13 Freq: NEEDED Status: Active Protocol: Document 11/14/18 16:00 LJ (Rec: 11/14/18 16:27 [facility] [id number]) Physical Therapy Treatment Exercises Knee ROM Measurement bridging x3 to reposition M7 PT-IP Assessment and Plan Start: 11/07/18 15:13 Freq: NEEDED Status: Active Protocol: Document 11/15/18 14:33 [facility] (Rec: 11/15/18 14:39 SAK [id number]) PT Summary Assessment and Plan Potential Rehabilitation Potential Fair Summary Progress Towards Goals Slow Progress due to Pain Slow Progress due to Medical Issues Slow Progress due to Activity Tolerance Assessment Summary Pt ambulated to [facility] then several step toward foot of bed. C/o back pain and returned to bed requiring assist with lifting LEs. Pt advised of discharge if continual refusal. Stated that he would get up and walk with PT tomorrow. Goals Bed Mobility Goal Independent Transfer Goal Independent Front Wheeled Walker Four Wheeled Walker Gait Goal Standby Assistance Front Wheel Walker Four Wheel Walker Gait Distance 50 Days to Meet Goals 10 Frequency of Treatment Frequency Of Treatment Once a Day Recommendations To Nursing Amount of Assist Needed 1 Person Assist Discharge Recommendations PT Discharge Recommendations SNF Rehab
--- NOTE | 2018-11-15 15:03 | PC.NURSE ---
Day shift pt sleeps for majority of shift especially after methadone administration. When he is awake, he presses call light very frequently. Limit setting in place to ask pt to cluster his requests. pt picked at dressing for PIV, he removed cover and it was no longer occlusive. PIV today as well so it was removed. DI nurse contacted and new PIV inserted. Within 10 min pt called and stated dressing for his PIV came off the edges appeared to have scratched up and were folded under the dressing. PIV flushed without issue and good blood return. Dressing reinforced. asked pt to bend his arm and the dressing did not move with arm movement. Leak alarm on wound vac sounded at end of shift. Dressings reinforced and alarm off. inner thighs appear to be the issue and moisture is present on L inner thigh.
[2018-11-15] MEDS: predniSONE 10 MG TABLET PO (16:44)
[2018-11-15] MEDS: ACETAMINOPHEN 325 MG TABLET 650 MG PO (17:04)
[2018-11-15] MEDS: diphenhydrAMINE 25 MG TABLET PO (19:24)
[2018-11-15] MEDS: FLUTICASONE/SALMETEROL 500/50 14 PUFF DISKUS INH (21:13)
--- NOTE | 2018-11-15 22:32 | PC.NURSE ---
drainage from day shift totaled 100 ml, and marked. drainage from willy shift- 25ml. marked with myra
--- NOTE | 2018-11-15 22:33 | PC.NURSE ---
Addendum entered by Leona Fry R.N. 11/15/18 23:09: leaking to right post wound vac. rip in dressing. applied layer over it and wound vac functioning as ordered. trouble shooting and pt saw me clamp the tubing (momentarily to decide which side leak was coming from) pt felt it was the right side. pt then proceeded to clamp the wound vac tubing, told pt he is not to touch the wound vac at all, that if he clamps it thinking he is helping and then may forget to and this could be very very bad. pt looked worried and stated he wouldn't touch it anymore. told pt again to not touch it and pt said OK. will continue to monitor. Pt moans. discussed this with patient. pt asking for crackers and told he couldn't have any, pt given some ice instead. if pt doesn't have food in his mouth or is being spoken to by staff pt moans and wails out. will continue to monitor. Original Note: 1500- assumed care of pt. pt asleep in bed. call light and belongings within reach. pt had one snack already today. discussed plan of care, oxygen use. call light use snack rules etc pot compliant. pt was cleaned up around 1844- bed bath/dried and powder applied to abd folds underarms. zinc barrier cream applied to bottom sores. pt has scratched himself pretty back to his bottom area, barrier cream applied to this (multiple scratch boykin). Pt up with 1 assist to bsc. sits down and able to get back in bed but needs help lifting legs up. Pt cooperative but needs directions. pt told that he could say please and thank you and that those words go along way when asking for things/when given care. bed linens changed multiple times. pt asked attending md to increase snack allotment to three a day instead of four and this was denied. Pt blood sugar checked at request of md as pt always complains of hunger around 2029/2129. result was 94. Pt given sandwich for snack. pt drinking water but needs encouragement. Pt uses call light. will continue to monitor pt for safety.
--- NOTE | 2018-11-15 22:34 | PC.NURSE ---
Pt. has childlike demeanor, groans, moans, and whines often. Reminded pt. to use nasal cannula. Gave patient bed bath and applied Nystatin powder and pillow cases under abdominal fold and changed bedding. Wound vac draining well with 125ml at end of shift. troubleshoot leakage, wound vac is now draining as ordered. Pt. complaint of left posterior leg pain where wound vac is increases with movement. Administering PRN pain meds per NOV.
[2018-11-16] VITALS (7 sets, daily range): BP systolic 113–135; BP diastolic 57–70; PULSE 91–102; RESP 18–20; TEMP 36.8–37.1; O2SAT 84–95
--- NOTE | 2018-11-16 00:56 | PC.NURSE ---
Shift note: Received pt from evening shift. Visualized wound vac dressing with off-going shift d/t leakage alarm. Educated pt to not pick at dressings. Pt started to intermittently wail and has been compulsively pressing call light at the start of shift. Made one attempt with on coming MAIL HANDLER EQUIPMENT OPERATOR to elicit a snack of crackers but was educated that he had had his limit for the day. Pt has made multiple requests to go to the bathroom and with last maneuver to the bedside commode an air leak occurred. Had to remind pt that he cannot help with troubleshooting where the air leak is and that this RN was sure where the leak was occurring. Off going nurse gave tips on quicker troubleshooting. Was finally able to locate most recent leak which was occurring at posterior knee where a skin fold is. Secured dressing and assisted pt back to bed. Pt was compliant with care and dressing reinforcement, used copious amounts of encouragement while he stood at bedside, pt seemed to be in good spirits after. At time of note leak level is in the green zone.
[2018-11-16] MEDS: METHADONE 10 MG TABLET 80 MG PO (08:16)
[2018-11-16] MEDS: ENOXAPARIN 30 MG/0.3 ML SYRINGE SUBCUT ×2 (08:18→20:50)
[2018-11-16] MEDS: DULOXETINE 30 MG CAPSULE PO (08:20)
[2018-11-16] MEDS: LACTOBACILLUS ACIDOPHILUS TABLET 1 EACH PO ×2 (08:20→16:43)
[2018-11-16] MEDS: ASCORBIC ACID 500 MG TABLET PO (08:20)
[2018-11-16] MEDS: SODIUM CHLORIDE 0.9% FLUSH 10 ML IV ×2 (08:21→21:10)
[2018-11-16] MEDS: FERROUS SULFATE 325 MG TABLET PO (08:21)
[2018-11-16] MEDS: OLANZapine 2.5 MG TABLET 15 MG PO (08:21)
[2018-11-16] MEDS: GABAPENTIN 300 MG CAPSULE PO ×3 (08:21→20:51)
--- NOTE | 2018-11-16 14:42 | PM.PN.1 ---
Subjective Date Patient Seen: 11/16/18 Time Patient Seen: 14:42 Interval history: Follow up on decubitus ulcer. Patient is seen at bedside. He is doing well. Not complaining of any pain currently. No overnight events. Wound VAC is in place. Exam Vital Signs (past 8 hours): - 11/16/18 08:00 11/16/18 08:58 11/16/18 13:56 Temperature 98.6 F 98.2 F Pulse Rate 99 H 101 H Respiratory Rate 20 18 Blood Pressure 131/70 113/57 L Pulse Oximetry 93 93 84 L Fraction of Inspired Oxygen 24 Oxygen Delivery Method Room Air Oxygen Flow Rate 0 Narrative Exam Narrative: General: No acute distress, AAO x3. Morbidly obese male. HEENT: Normocephalic, atraumatic. PERRLA and EOMI bilaterally Neck: Supple, obese CV: Regular rate rhythm with no murmurs or gallops Respiratory: Clear to auscultation bilaterally without any crackles wheezes or rhonchi. Normal respiratory effort. Abdomen: Obese, nontender. Positive bowel sounds. Extremities: No clubbing or cyanosis, edema to knees bilaterally. Neuro: NFD Psychiatric: Depressed mood and flat affect. Alert but nods off easily. Poor insight into disease process. 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 Skin: Stage II pressure ulcers x2 on scrotum and posterior thighs bilaterally Neuro: No focal defecit Psych: Depressed Objective Labs Result Diagrams: 11/15/18 06:16 11/15/18 06:16 Assessment & Plan Assessment & Plan narrative: 38yo M with a past medical history significant for morbid obesity (BMI 80), asthma on chronic prednisone, obesity hypoventilation syndrome, RAJESH, chronic pain with methadone dependence, and chronic stage II decubitus pressure ulcerations of scrotum and posterior thighs who presented for increased pain and drainage of stage II decubitus pressure ulcerations of posterior thighs. He is s/p debribement and wound vac placement. Pending placement to SNF. 1. Acute on chronic stage II decubitus pressure ulcerations of posterior thighs -with polymicrobial infection versus colonization -Post-debridement by General Surgery. Patient's wounds initially looked infected upon admission now status post debridement are not infected. Discussed the patient again with infectious disease Dr. Cotton at [facility] who recommended a 10 day to stop 2/24 course of Augmentin to cover MSSA, strep and acinobacter. -wound VAC placed by wound care due to significant serosanguineous drainage and the need for multiple supplies due to his obesity making it quite complex wound management. -Due to patient's noncompliance with medical management due to no support and obesity, we are awaiting placement to SNF ([facility], [facility]) and FOUNDER AND CHIEF EXECUTIVE OFFICER requesting assistance from his insurance. 2. Anemia of chronic disease -stable -Hemoglobin and hematocrit stable. No overt signs of bleeding. Pressure ulcerations are draining serosanguinous as above. -Continue on Iron and vitamin-C. -Monitor H&H daily. Transfusion goal < 7.0. 3. Chronic pain with opiate dependence -Currently on methadone treatment (opiates in the past) -Patient is now more alert and cooperative afer Methadone was decreased to 80 mg daily due to over sedation -continue Methadone at 80mg Daily for now...taper down if appropriate 4. Depression and anxiety -Continue home Duloxetine and Olanzapine 15 mg daily not 20 mg. Not on lorazepam as an outpatient. 5. Pulmonary hypertension and right sided CHF, chronic and secondary to morbid obesity, OHS, RAJESH, and asthma, present on admission. Stable. -Echocardiogram demonstrated right ventricle is moderate to severely dilated with moderately reduced right ventricular systolic function with severe biatrial enlargement -Continue prednisone 10 mg Daily with 5 mg taper weekly per PCP Dr. Hernández. -Continue albuterol as needed, Advair and CPAP per RT. 6. Morbid obesity -BMI 80 on admission. -Mobilize out of bed as much as he can tolerate. -Limit snacks to 2 per day and follow a heart healthy diet. NO CHIPS, JUICE, POPSICLES. -Patient will benefit from slow taper off prednisone and decrease methadone to lowest possible dose to treat pain. 7. Postoperative hypoxemia due to prolonged sedation, not present on admission. -Intermittently using oxygen. Suspect Obesity hypoventilation syndrome as above. 8. Mild QTc prolongation, secondary to medications, present on admission. Stable. -QTc 476 ms. Patient is on methadone, olanzapine, and duloxetine. -Avoid other QTC prolonging agents such as Zofran, etc. if possible. Disposition: SNF placement. Continue to taper prednisone and methadone. Will have ethics meeting in the morning regarding tapering of methadone and patient's compliance/awareness. Quality VTE Deep Vein Thrombosis/Pulmonary Embolism Present on Admission: No
--- NOTE | 2018-11-16 14:48 | P.PN_ITS ---
Subjective Date Patient Seen: 11/16/18 Time Patient Seen: 14:42 Interval history: Follow up on decubitus ulcer. Patient is seen at bedside. He is doing well. Not complaining of any pain cu rrently. No overnight events. Wound VAC is in place. Exam Vital Signs (past 8 hours): - 11/16/18 08:00 11/16/18 08:58 11/16/18 13:56 Temperature 98.6 F 98.2 F Pulse Rate 99 H 101 H Respiratory Rate 20 18 Blood Pressure 131/70 113/57 L Pulse Oximetry 93 93 84 L Fraction of Inspired Oxygen 24 Oxygen Delivery Method Room Air Oxygen Flow Rate 0 Narrative Exam Narrative: General: No acute distress, AAO x3. Morbidly obese male. HEENT: Normocephalic, atraumatic. PERRLA and EOMI bilaterally Neck: Supple, obese CV: Regular rate rhythm with no murmurs or gallops Respiratory: Clear to auscultation bilaterally without any crackles wheezes or rhonchi. Normal respiratory effort. Abdomen: Obese, nontender. Positive bowel sounds. Extremities: No clubbing or cyanosis, edema to knees bilaterally. Neuro: NFD Psychiatric: Depressed mood and flat affect. Alert but nods off easily. Poor insight into disease process. 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 Skin: Stage II pressure ulcers x2 on scrotum and posterior thighs bilaterally Neuro: No focal defecit Psych: Depressed Objective Labs Result Diagrams: 11/15/18 06:16 11/15/18 06:16 Assessment & Plan Assessment & Plan narrative: 38yo M with a past medical history significant for morbid obesity (BMI 80), asthma on chronic prednisone, obesity hypoventilation syndrome, RAJESH, chronic pain with methadone dependence, and chronic stage II decubitus pressure ulcerations of scrotum and posterior thighs who presented for increased pain and drainage of stage II decubitus pressure ulcerations of posterior thighs. He is s/p debribement and wound vac placement. Pending placement to SNF. 1. Acute on chronic stage II decubitus pressure ulcerations of posterior thighs -with polymicrobial infection versus colonization -Post-debridement by General Surgery. Patient's wounds initially looked infected upon admission now status post debridement are not infected. Discussed the patient again with infectious disease Dr. Cotton at [facility] who recommended a 10 day to stop / course of Augmentin to cover MSSA, strep and acinobacter. -wound VAC placed by wound care due to significant serosanguineous drainage and the need for multiple supplies due to his obesity making it quite complex wound management. -Due to patient's noncompliance with medical management due to no support and obesity, we are awaiting placement to SNF ([facility], [facility]) and METROLOGY TECHNICIAN requesting assistance from his insurance. 2. Anemia of chronic disease -stable -Hemoglobin and hematocrit stable. No overt signs of bleeding. Pressure ulc erations are draining serosanguinous as above. -Continue on Iron and vitamin-C. -Monitor H&H daily. Transfusion goal < 7.0. 3. Chronic pain with opiate dependence -Currently on methadone treatment (opiates in the past) -Patient is now more alert and cooperative afer Methadone was decreased to 80 mg daily due to over sedation -continue Methadone at 80mg Daily for now...taper down if appropriate 4. Depression and anxiety -Continue home Duloxetine and Olanzapine 15 mg daily not 20 mg. Not on l orazepam as an outpatient. 5. Pulmonary hypertension and right sided CHF, chronic and secondary to morbid obesity, OHS, RJAESH, and asthma, present on admission. Stable. -Echocardiogram demonstrated right ventricle is moderate to severely dilated with moderately reduced right ventricular systolic function with severe biatrial enlargement -Continue prednisone 10 mg Daily with 5 mg taper weekly per PCP Dr. Hernández. -Continue albuterol as needed, Advair and CPAP per RT. 6. Morbid obesity -BMI 80 on admission. -Mobilize out of bed as much as he can tolerate. -Limit snacks to 2 per day and follow a heart healthy diet. NO CHIPS, JUICE, POPSICLES. -Patient will benefit from slow taper off prednisone and decrease methadone to lowest possible dose to treat pain. 7. Postoperative hypoxemia due to prolonged sedation, not present on admission. -Intermittently using oxygen. Suspect Obesity hypoventilation syndrome as above. 8. Mild QTc prolongation, secondary to medications, present on admission. Stable. -QTc 476 ms. Patient is on methadone, olanzapine, and duloxetine. -Avoid other QTC prolonging agents such as Zofran, etc. if possible. Disposition: SNF placement. Continue to taper prednisone and methadone. Will have ethics meeting in the morning regarding tapering of methadone and patient's compliance/awareness. Quality VTE Deep Vein Thrombosis/Pulmonary Embolism Present on Admission: No
--- NOTE | 2018-11-16 15:17 | PC.NURSE ---
Wound Nurse Consult Note [employer] Wound Vac Change. Babatunde stayed in bed during the wound vac change. We used the overhead sling to hold his leg up but at times he could not tolerate using the sling and we had to hold up his legs. Babatunde's wound look much better. I did not measure them with this dressing change as they were photographed and measured on Wednesday, November 14. Both posterior leg wounds ( thigh) have beefy red granulation tissue without any slough. The wound edges are attached and the wounds actually look like they are filling in and are smaller. There was approximately 40cc of serosanguenous drainage in the canister. The Ritu-wound skin is intact. I removed the black foam, cleaned each wound with Normal Saline and pat dry. While removing the black foam there was a small amount of bleeding from the wound which stopped with pressure. Each wound was draped and filled with one black foam to each wound. I also used one black foam as a bridge to each of the wounds and used a Y connector so there both track pad tubing connected to the Y connector and then to one [employer] wound vac pump. The canister was also changed. I did not change the Y connector as that can be changed every week. Babatunde did cry on and off during the procedure but was easily distracted with questions from the student nurses which he seemed to enjoy. Babatunde did thank me for doing his dressing change. He will need to have his wound vac dressing changed again on Wednesday. This procedure took over an hour because Babatunde need breaks to have his legs rest from being suspended from the [place] or by us holding up his legs.
--- NOTE | 2018-11-16 15:54 | PT.IPTN ---
Current Diagnoses Pressure ulcer of left buttock, stage 2 (11/03/18) Surgery Performed Operation Date: 11/03/18 15:30 Actual Procedures p Incision and Drainage upper bilateral legs-POSTERIOR(Bilateral) - Yuliet Pratt MD Physical Therapy Treatment Note M2 PT-IP Current Condition Start: 11/07/18 15:13 Freq: NEEDED Status: Active Protocol: Document 11/07/18 10:00 NFW (Rec: 11/07/18 15:55 NFW [id number]) Physical Therapy Current Condition Current Condition Evaluation Date 11/07/18 Treatment Diagnosis Recurring decubitus ulcers Weight Bearing Status Weight Bearing Status Full Weight Bearing M3 PT-IP Subjective Start: 11/07/18 15:13 Freq: NEEDED Status: Active Protocol: Document 11/16/18 15:53 LJ (Rec: 11/16/18 15:54 LJ [id number]) Subjective Physical Therapy Visit Type Type Patient Refusal Notes Pt in bed with difficulty waking long enough to converse . States he can't mobilize today. Did not discuss importance of ambulation or potential dc due to his cognitive state. M4 PT-IP Mobility and Gait Start: 11/07/18 15:13 Freq: NEEDED Status: Active Protocol: Document 11/15/18 14:33 SAK (Rec: 11/15/18 14:39 SAK [id number]) PT-Bed Mobility Assessment Rolling Type of Rolling Roll to Right Level of Assist Standby Assistance Supine to Sit Supine to Sit Standby Assistance Bedrails Sit to Supine Sit to Supine Standby Assistance Bedrails Scooting Scooting to Edge of Bed Standby Assistance Scooting Up and Down in Bed Standby Assistance PT-Transfer Assessment Sit to and From Stand Sit to and from Stand Standby Assistance Use of Upper Extremities Equipment Transfer Assistive Device Gait Belt Front Wheeled Walker Transfers Transfer Destination Bed Comments Mobility Comments mod assist for right LE into bed Gait Assessment Gait Gait Assistance Required: Standby Assistance 1 Person Assist Distance (Feet) 12 Assistive Devices Assistive Device Front Wheeled Walker Orthotic/Prosthetic Devices or Brace: No Gait Deviations General Gait Pattern Decreased Stride Length Decreased Feet Clearance Flexed Trunk Wide Based Gait Factors Limiting Gait Function Factors Limiting Gait Function Decreased Activity Tolerance Decreased Sensation Decreased Strength Difficulty Following Directions Limited Range of Motion Pain Poor Safety Awareness M5 PT-IP Objective Assessments Start: 11/07/18 15:13 Freq: NEEDED Status: Active Protocol: Document 11/07/18 10:00 NFW (Rec: 11/07/18 15:55 NFW [id number]) Orientation Orientation/Cognition Orientation Name Place Language Function Ability Garbled Speech Comments Fades in and out of alertness. Gross Range of Motion Upper Extremity ROM Assessment Within Functional Limits Lower Extremity ROM Assessment Bilaterally Impaired Impairments Excessive edema into BLEs Strength Upper Extremity Strength Assessment Within Functional Limits Comments Strength Comments LE strength difficult to assess due to pain from ulcers . Has functional strength to walk short distances with FWW. Sensation Assessment Sensation Gross Sensation WNL Muscle Tone Muscle Tone WNL Yes M6 PT-IP Treatment Start: 11/07/18 15:13 Freq: NEEDED Status: Active Protocol: Document 11/14/18 16:00 LJ (Rec: 11/14/18 16:27 LJ [id number]) Physical Therapy Treatment Exercises Knee ROM Measurement bridging x3 to reposition M7 PT-IP Assessment and Plan Start: 11/07/18 15:13 Freq: NEEDED Status: Active Protocol: Document 11/15/18 14:33 SAK (Rec: 11/15/18 14:39 SAK [id number]) PT Summary Assessment and Plan Potential Rehabilitation Potential Fair Summary Progress Towards Goals Slow Progress due to Pain Slow Progress due to Medical Issues Slow Progress due to Activity Tolerance Assessment Summary Pt ambulated to [facility] then several step toward foot of bed. C/o back pain and returned to bed requiring assist with lifting LEs. Pt advised of discharge if continual refusal. Stated that he would get up and walk with PT tomorrow. Goals Bed Mobility Goal Independent Transfer Goal Independent Front Wheeled Walker Four Wheeled Walker Gait Goal Standby Assistance Front Wheel Walker Four Wheel Walker Gait Distance 50 Days to Meet Goals 10 Frequency of Treatment Frequency Of Treatment Once a Day Recommendations To Nursing Amount of Assist Needed 1 Person Assist Discharge Recommendations PT Discharge Recommendations SNF Rehab
--- NOTE | 2018-11-16 16:27 | PC.NURSE ---
1500- Safe handoff from day RN. Wound vac dressings just changed prior to start of shift, appear intact. Pt is drowsy at this time, but able to state that he has no pain. Asking for snacks, reminded of 2 snacks per day policy; pt states he will just wait until dinner. 1700- PO Benadryl given for inc itching. Pt's wound vac dressing remain in place. Moving to [facility] SBA. 2100- PO meds given & swallowed w/o difficulty.
[2018-11-16] MEDS: diphenhydrAMINE 25 MG TABLET PO (18:03)
[2018-11-17] VITALS (12 sets, daily range): BP systolic 106–125; BP diastolic 52–73; PULSE 89–101; RESP 14–20; TEMP 36.6–37.1; O2SAT 84–98
[2018-11-17] MEDS: diphenhydrAMINE 25 MG TABLET PO ×2 (03:42→18:18)
--- NOTE | 2018-11-17 06:31 | PC.NURSE ---
patient refused to get up to urinate said he went with murse earlier i asked nurse she said she did not .
[2018-11-17 06:35] LABS: Add Manual Diff / Slide Review NO; Basophils Absolute Auto 0 /uL (0-100); Basophils Percent Auto 0.2 % (0-2); Eosinophils Absolute Auto 100 /uL (0-450); Eosinophils Percent Auto 2.2 % (2-4); Hematocrit 26.2 % (41-53); Hemoglobin 8.2 g/dL (13.5-17.5); Lymphocytes Absolute Auto 1500 /uL (1100-4500); Lymphocytes Percent Auto 34.1 % (25-40); Mean Corpuscular HGB Conc 31.3 % (30-36); Mean Corpuscular Hemoglobin 25.9 PG (26-34); Mean Corpuscular Volume 82.7 fL (80-100); Monocytes Absolute Auto 400 /uL (0-900); Monocytes Percent Auto 9.9 % (3-14); Neutrophils Absolute Auto 2300 /uL (1500-7000); Neutrophils Percent Auto 53.6 % (50-75); Platelet Count 184 X10^3/uL (150-400); Red Blood Cell Count 3.17 X10^6/uL (4.5-5.9); Red Cell Distribution Width 18.9 % (11.6-14.8); White Blood Cell Count 4.3 X10^3/uL (4.5-11.0)
[2018-11-17 06:39] LABS: BUN Creatinine Ratio 11.7 (6-22); Blood Urea Nitrogen 7 mg/dL (9-20); Calcium 7.9 mg/dL (8.4-10.2); Carbon Dioxide 33 mmol/L (22-32); Chloride 102 mmol/L (98-107); Estimated Glomerular Filt Rate > 60.0 mL/min (>60); Glucose 79 mg/dL (70-100); HEMOLYSIS < 15 (0-50); Potassium 3.6 mmol/L (3.4-5.1); Sodium 140 mmol/L (137-145)
[2018-11-17] MEDS: ENOXAPARIN 30 MG/0.3 ML SYRINGE SUBCUT ×2 (08:06→20:55)
[2018-11-17] MEDS: DULOXETINE 30 MG CAPSULE PO (08:06)
[2018-11-17] MEDS: LACTOBACILLUS ACIDOPHILUS TABLET 1 EACH PO ×2 (08:06→18:18)
[2018-11-17] MEDS: ASCORBIC ACID 500 MG TABLET PO (08:06)
[2018-11-17] MEDS: OLANZapine 2.5 MG TABLET 15 MG PO (08:07)
[2018-11-17] MEDS: METHADONE 10 MG TABLET 80 MG PO (08:07)
[2018-11-17] MEDS: GABAPENTIN 300 MG CAPSULE PO ×3 (08:07→20:55)
[2018-11-17] MEDS: FERROUS SULFATE 325 MG TABLET PO (08:07)
--- NOTE | 2018-11-17 10:42 | PC.NURSE ---
Late Entry: Dressing Change 11/16. Dressings changed to bilateral posterior pressure wounds by wound care nurse Kiersten, this nurse and with the assistance of two nursing students. Previous wound vac dressings removed and wounds cleaned with NS. New wound vac dressings applied while patient was assisted to hold each of his legs, one at a time, off the bed. Dressings held seal appropriately when attached to wound vac. Pt was tearful at times but tollerated well. Dressing change took a total of 1.5 hrs.
--- NOTE | 2018-11-17 11:39 | P.PN_ITS ---
Subjective Date Patient Seen: 11/17/18 Time Patient Seen: 11:34 Interval history: Follow up on decubitus ulcer. Patient is seen at bedside. He is doing well. Complains of mild discomfort in his legs but no other overnight events. Exam Vital Signs (past 8 hours): - 11/17/18 06:10 11/17/18 08:16 11/17/18 08:30 Temperature 98.2 F 98.8 F Pulse Rate 89 89 Respiratory Rate 16 15 Blood Pressure 122/73 124/65 Pulse Oximetry 96 92 92 Fraction of Inspired Oxygen 24 Oxygen Delivery Method Room Air,Nasal Cannula Oxygen Flow Rate 0 Narrative Exam Narrative: General: No acute distress, AAO x3. Morbidly obese male. HEENT: Normocephalic, atraumatic. PERRLA and EOMI bilaterally Neck: Supple, obese CV: Regular rate rhythm with no murmurs or gallops Respiratory: Clear to auscultation bilaterally without any crackles wheezes or rhonchi. Normal respiratory effort. Abdomen: Obese, nontender. Positive bowel sounds. Extremities: No clubbing or cyanosis, edema to knees bilaterally. BL wound vacs in place in inner thighs Neuro: NFD Psychiatric: Depressed mood and flat affect. Alert but nods off easily. Poor insight into disease process. 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 Skin: Stage II pressure ulcers x2 on scrotum and posterior thighs bilaterally Neuro: No focal defecit Psych: Depressed but more interactive today Objective Labs Result Diagrams: 11/17/18 05:37 11/17/18 05:37 Labs: Laboratory Results - last 24 hr 11/17/18 11/17/18 05:37 05:37 WBC 4.3 L RBC 3.17 L Hgb 8.2 L Hct 26.2 L MCV 82.7 MCH 25.9 L MCHC 31.3 RDW 18.9 H Plt Count 184 Neut % (Auto) 53.6 Lymph % (Auto) 34.1 [place] % (Auto) 9.9 Eos % (Auto) 2.2 Baso % (Auto) 0.2 Neut # (Auto) 2300 Lymph # (Auto) 1500 [place] # (Auto) 400 Eos # (Auto) 100 Baso # (Auto) 0 Sodium 140 Potassium 3.6 Chloride 102 Carbon Dioxide 33 H BUN 7 L Creatinine 0.60 L Estimated GFR > 60.0 BUN/Creatinine Ratio 11.7 Glucose 79 Calcium 7.9 L Assessment & Plan Assessment & Plan narrative: 38yo M with a past medical history significant for morbid obesity (BMI 80), asthma on chronic prednisone, obesity hypoventilation syndrome, RAJESH, chronic pain with methadone dependence, and chronic stage II decubitus pressure ulcerations of scrotum and posterior thighs admitted with posterior thighs ulcers. He is s/p debribement and wound vac placement. Pending placement to SNF. 1. Acute on chronic stage II decubitus pressure ulcerations of posterior thighs -with polymicrobial infection versus colonization -Post-debridement by General Surgery. Patient's wounds initially looked infected upon admission now status post debridement are not infected. Discussed the patient again with infectious disease Dr. Cotton at [facility] who recommended a 10 day to stop / course of Augmentin to cover MSSA, strep and acinobacter. -wound VAC placed by wound care due to significant serosanguineous drainage and the need for multiple supplies due to his obesity making it quite complex wound management. -Due to patient's noncompliance with medical management due to no support and obesity, we are awaiting placement to SNF ([facility], [facility]) and [facility] requesting assistance from his insurance. 2. Anemia of chronic disease -stable -Hemoglobin and hematocrit stable. No overt signs of bleeding. Pressure ulcerations are draining serosanguinous as above. -Continue on Iron and vitamin-C. -Monitor H&H daily. Transfusion goal < 7.0. 3. Chronic pain with opiate dependence -Currently on methadone treatment (opiates in the past) -Patient is now more alert and cooperative afer Methadone was decreased to 80 mg daily due to over sedation -continue Methadone at 80mg Daily for now...taper down if appropriate 4. Depression and anxiety -Continue home Duloxetine and Olanzapine 15 mg daily not 20 mg. Not on lorazepam as an outpatient. 5. Pulmonary hypertension and right sided CHF, chronic and secondary to morbid obesity, OHS, RAJESH, and asthma, present on admission. Stable. -Echocardiogram demonstrated right ventricle is moderate to severely dilated with moderately reduced right ventricular systolic function with severe biatrial enlargement -Continue prednisone 10 mg Daily with 5 mg taper weekly per PCP Dr. Hernández. -Continue albuterol as needed, Advair and CPAP per RT. 6. Morbid obesity -BMI 80 on admission. -Mobilize out of bed as much as he can tolerate. -Limit snacks to 2 per day and follow a heart healthy diet. NO CHIPS, JUICE, POPSICLES. -Patient will benefit from slow taper off prednisone and decrease methadone to lowest possible dose to treat pain. 7. Postoperative hypoxemia -due to prolonged sedation -Suspect Obesity hypoventilation syndrome as well -Intermittently using oxygen, will continue 8. Mild QTc prolongation -Stable, likely medication induced -QTc 476 ms. Patient is on methadone, olanzapine, and duloxetine. -Avoid other QTC prolonging agents such as Zofran, etc. if possible. Disposition: SNF placement. Continue to taper prednisone and methadone. Will follow up on ethics committee regarding methadone tapering. Quality VTE Deep Vein Thrombosis/Pulmonary Embolism Present on Admission: No
--- NOTE | 2018-11-17 12:18 | PT.IPTN ---
Current Diagnoses Pressure ulcer of left buttock, stage 2 (11/03/18) Surgery Performed Operation Date: 11/03/18 15:30 Actual Procedures p Incision and Drainage upper bilateral legs-POSTERIOR(Bilateral) - Yuliet Pratt MD Physical Therapy Treatment Note M2 PT-IP Current Condition Start: 11/07/18 15:13 Freq: NEEDED Status: Active Protocol: Document 11/07/18 10:00 NFW (Rec: 11/07/18 15:55 NFW [id number]) Physical Therapy Current Condition Current Condition Evaluation Date 11/07/18 Treatment Diagnosis Recurring decubitus ulcers Weight Bearing Status Weight Bearing Status Full Weight Bearing M3 PT-IP Subjective Start: 11/07/18 15:13 Freq: NEEDED Status: Active Protocol: Document 11/17/18 12:06 SA (Rec: 11/17/18 12:18 [id number]) Subjective Physical Therapy Visit Type Type Treatment Note Visit Start Time 11:40 Visit Stop Time 12:00 Total Visit Minutes 20 Notes Pt in bed, CNAs just finished bed bath. Number of CHARGE ENTRY SPECIALIST Visits 2 Physical Therapy Visit Comments Patient Comments Pt reports that his legs hurt but he is agreeable to PT. Therapy Pain Assessment Pain When Pain Assessed During Mobility Pain Present Pain Present Pain Reported Location Bilateral Upper Posterior Leg Description Aching Tender Throbbing Pain Management Techniques Distraction Re-positioning M4 PT-IP Mobility and Gait Start: 11/07/18 15:13 Freq: NEEDED Status: Active Protocol: Document 11/17/18 12:06 SA (Rec: 11/17/18 12:18 [id number]) PT-Bed Mobility Assessment Rolling Type of Rolling Roll to Right Level of Assist Standby Assistance Supine to Sit Supine to Sit Standby Assistance Bedrails Sit to Supine Sit to Supine Standby Assistance Bedrails Scooting Scooting to Edge of Bed Standby Assistance Scooting Up and Down in Bed Standby Assistance PT-Transfer Assessment Sit to and From Stand Sit to and from Stand Standby Assistance Use of Upper Extremities Equipment Transfer Assistive Device Gait Belt Front Wheeled Walker Transfers Transfer Destination Bed Bedside Commode Transfer Technique Stand Step Pivot Transfer Ability Level of Assist Contact Guard Assistance Comments Mobility Comments Pt very impulsive, unable to keep track of wound vac and cords, Needs assist as he is not receptive to cues or education. Gait Assessment Gait Gait Assistance Required: Standby Assistance 1 Person Assist Distance (Feet) 16 Assistive Devices Assistive Device Front Wheeled Walker Orthotic/Prosthetic Devices or Brace: No Gait Deviations General Gait Pattern Decreased Stride Length Decreased Feet Clearance Flexed Trunk Wide Based Gait Factors Limiting Gait Function Factors Limiting Gait Function Decreased Activity Tolerance Decreased Sensation Decreased Strength Difficulty Following Directions Limited Range of Motion Pain Poor Safety Awareness Comments Gait Comments Pt with antalgic gait with lateral leaning. Demonstrates poor safety awareness and is impulsive with movements. SBA- CGA with gait and Max A to manage wound vac. M5 PT-IP Objective Assessments Start: 11/07/18 15:13 Freq: NEEDED Status: Active Protocol: Document 11/07/18 10:00 NFW (Rec: 11/07/18 15:55 NFW [id number]) Orientation Orientation/Cognition Orientation Name Place Language Function Ability Garbled Speech Comments Fades in and out of alertness. Gross Range of Motion Upper Extremity ROM Assessment Within Functional Limits Lower Extremity ROM Assessment Bilaterally Impaired Impairments Excessive edema into BLEs Strength Upper Extremity Strength Assessment Within Functional Limits Comments Strength Comments LE strength difficult to assess due to pain from ulcers . Has functional strength to walk short distances with FWW. Sensation Assessment Sensation Gross Sensation WNL Muscle Tone Muscle Tone WNL Yes M6 PT-IP Treatment Start: 11/07/18 15:13 Freq: NEEDED Status: Active Protocol: Document 11/17/18 12:06 (Rec: 11/17/18 12:18 [id number]) Physical Therapy Treatment Exercises Knee ROM Measurement supine bridging, ankle pumps M7 PT-IP Assessment and Plan Start: 11/07/18 15:13 Freq: NEEDED Status: Active Protocol: Document 11/17/18 12:06 (Rec: 11/17/18 12:18 [id number]) PT Summary Assessment and Plan Summary Progress Towards Goals Slow Progress due to Pain Slow Progress due to Medical Issues Slow Progress due to Activity Tolerance Assessment Summary Pt SBA with bed mobility and use of overhead trapeze. SBA- CGA with gait and cues for safety, pt impulsive and has no awareness of wound vac and cords. Frequency of Treatment Frequency Of Treatment Once a Day Recommendations To Nursing Amount of Assist Needed 1 Person Assist Discharge Recommendations PT Discharge Recommendations SNF Rehab
[2018-11-17] MEDS: SODIUM CHLORIDE 0.9% FLUSH 10 ML IV ×2 (14:42→20:56)
--- NOTE | 2018-11-17 21:38 | PC.NURSE ---
Kianna shift note: InterDry placed to panus for management of skin to skin irritation.
[2018-11-18] VITALS (8 sets, daily range): BP systolic 117–133; BP diastolic 55–66; PULSE 84–102; RESP 16–19; TEMP 36.3–36.8; O2SAT 85–100
[2018-11-18] MEDS: diphenhydrAMINE 25 MG TABLET PO ×3 (05:47→23:39)
[2018-11-18] MEDS: ALBUTEROL 2.5 MG/3 ML NEB (ADULT) INH (08:53)
[2018-11-18] MEDS: FLUTICASONE/SALMETEROL 500/50 14 PUFF DISKUS INH (08:53)
[2018-11-18] MEDS: METHADONE 10 MG TABLET 80 MG PO (09:20)
[2018-11-18] MEDS: ASCORBIC ACID 500 MG TABLET PO (09:20)
[2018-11-18] MEDS: DULOXETINE 30 MG CAPSULE PO (09:21)
[2018-11-18] MEDS: ENOXAPARIN 30 MG/0.3 ML SYRINGE SUBCUT ×2 (09:21→20:53)
[2018-11-18] MEDS: LACTOBACILLUS ACIDOPHILUS TABLET 1 EACH PO ×2 (09:21→16:37)
[2018-11-18] MEDS: OLANZapine 2.5 MG TABLET 15 MG PO (09:21)
[2018-11-18] MEDS: SODIUM CHLORIDE 0.9% FLUSH 10 ML IV ×2 (09:22→20:54)
[2018-11-18] MEDS: GABAPENTIN 300 MG CAPSULE PO ×3 (09:22→20:54)
[2018-11-18] MEDS: FERROUS SULFATE 325 MG TABLET PO (09:22)
--- NOTE | 2018-11-18 10:25 | PC.NURSE ---
Addendum entered by Kat Thao R.N. 11/18/18 15:04: [employer]/PAIN - per discussion with Dr. Lewis, pt was given 5/325mg norco x1 tab and his scheduled gabapentin 30minutes before changing his wound vac. Pt becomes tearful and crying while lying in bed prior to start, no particular pain, pt doesn't like to hold up his leg, required x3 RN to hold leg, remove old wound vac, clean an prep, we did use a sling to hold up his r leg and pt could lay on his right side but would not lay on his right side. There is good granulation tissue, pink wound beds with some serosang drainage, the wound vac bridge was connected and the suction returned to the 125mm hg with good result, the patient tolerated, had to be freq reminded not to scratch. The dressing change took 1hr 15minutes to complete. Original Note: AM NOTE - pt awakens easily, watching TV, wound vac on low continuous suction 125mmhg, serosang in tubing and cannister, ra 89-91%, hr 96.
--- NOTE | 2018-11-18 10:57 | PT.IPTN ---
Current Diagnoses Pressure ulcer of left buttock, stage 2 (11/03/18) Surgery Performed Operation Date: 11/03/18 15:30 Actual Procedures p Incision and Drainage upper bilateral legs-POSTERIOR(Bilateral) - Yuliet Pratt MD Physical Therapy Treatment Note M2 PT-IP Current Condition Start: 11/07/18 15:13 Freq: NEEDED Status: Active Protocol: Document 11/07/18 10:00 NFW (Rec: 11/07/18 15:55 NFW [id number]) Physical Therapy Current Condition Current Condition Evaluation Date 11/07/18 Treatment Diagnosis Recurring decubitus ulcers Weight Bearing Status Weight Bearing Status Full Weight Bearing M3 PT-IP Subjective Start: 11/07/18 15:13 Freq: NEEDED Status: Active Protocol: Document 11/18/18 10:55 SA (Rec: 11/18/18 10:57 SA [id number]) Subjective Physical Therapy Visit Type Type Patient Refusal Notes Attempted to see patient this AM, Pt unable to keep eyes open for conversation. States he is too tired for PT today . Continued education for importance of daily activity for healing. Pt declined PT. M4 PT-IP Mobility and Gait Start: 11/07/18 15:13 Freq: NEEDED Status: Active Protocol: Document 11/17/18 12:06 SA (Rec: 11/17/18 12:18 SA [id number]) PT-Bed Mobility Assessment Rolling Type of Rolling Roll to Right Level of Assist Standby Assistance Supine to Sit Supine to Sit Standby Assistance Bedrails Sit to Supine Sit to Supine Standby Assistance Bedrails Scooting Scooting to Edge of Bed Standby Assistance Scooting Up and Down in Bed Standby Assistance PT-Transfer Assessment Sit to and From Stand Sit to and from Stand Standby Assistance Use of Upper Extremities Equipment Transfer Assistive Device Gait Belt Front Wheeled Walker Transfers Transfer Destination Bed Bedside Commode Transfer Technique Stand Step Pivot Transfer Ability Level of Assist Contact Guard Assistance Comments Mobility Comments Pt very impulsive, unable to keep track of wound vac and cords, Needs assist as he is not receptive to cues or education. Gait Assessment Gait Gait Assistance Required: Standby Assistance 1 Person Assist Distance (Feet) 16 Assistive Devices Assistive Device Front Wheeled Walker Orthotic/Prosthetic Devices or Brace: No Gait Deviations General Gait Pattern Decreased Stride Length Decreased Feet Clearance Flexed Trunk Wide Based Gait Factors Limiting Gait Function Factors Limiting Gait Function Decreased Activity Tolerance Decreased Sensation Decreased Strength Difficulty Following Directions Limited Range of Motion Pain Poor Safety Awareness Comments Gait Comments Pt with antalgic gait with lateral leaning. Demonstrates poor safety awareness and is impulsive with movements. SBA- CGA with gait and Max A to manage wound vac. M5 PT-IP Objective Assessments Start: 11/07/18 15:13 Freq: NEEDED Status: Active Protocol: Document 11/07/18 10:00 NFW (Rec: 11/07/18 15:55 NFW [id number]) Orientation Orientation/Cognition Orientation Name Place Language Function Ability Garbled Speech Comments Fades in and out of alertness. Gross Range of Motion Upper Extremity ROM Assessment Within Functional Limits Lower Extremity ROM Assessment Bilaterally Impaired Impairments Excessive edema into BLEs Strength Upper Extremity Strength Assessment Within Functional Limits Comments Strength Comments LE strength difficult to assess due to pain from ulcers . Has functional strength to walk short distances with FWW. Sensation Assessment Sensation Gross Sensation WNL Muscle Tone Muscle Tone WNL Yes M6 PT-IP Treatment Start: 11/07/18 15:13 Freq: NEEDED Status: Active Protocol: Document 11/17/18 12:06 (Rec: 11/17/18 12:18 SA [id number]) Physical Therapy Treatment Exercises Knee ROM Measurement supine bridging, ankle pumps M7 PT-IP Assessment and Plan Start: 11/07/18 15:13 Freq: NEEDED Status: Active Protocol: Document 11/17/18 12:06 SA (Rec: 11/17/18 12:18 [id number]) PT Summary Assessment and Plan Summary Progress Towards Goals Slow Progress due to Pain Slow Progress due to Medical Issues Slow Progress due to Activity Tolerance Assessment Summary Pt SBA with bed mobility and use of overhead trapeze. SBA- CGA with gait and cues for safety, pt impulsive and has no awareness of wound vac and cords. Frequency of Treatment Frequency Of Treatment Once a Day Recommendations To Nursing Amount of Assist Needed 1 Person Assist Discharge Recommendations PT Discharge Recommendations SNF Rehab
--- NOTE | 2018-11-18 11:10 | PM.PN.1 ---
Subjective Date Patient Seen: 11/18/18 Time Patient Seen: 11:10 Interval history: Follow up on decubitus ulcer. Patient is seen at bedside. He is doing well. No acute overnight events. Ethics committe performed regarding methadone tapering and patient awareness. It was deemed to be obligatory to inform patient of methadone tapering but not needed to stop tapering even if patient voices disagreement. I have told patient today we have gotten him down to 80mg Daily and tomorrow will go down to 75mg Daily. He will in return get [place] 5/325mg 30 min prior to every wound vac change (MWF). Patient voiced understanding and agreement. Exam Vital Signs (past 8 hours): - 11/18/18 03:20 11/18/18 08:19 11/18/18 09:09 Temperature 98.0 F 97.3 F L Pulse Rate 90 102 H 86 Respiratory Rate 17 18 16 Blood Pressure 133/64 119/66 Pulse Oximetry 94 89 L 93 11/18/18 10:27 Temperature Pulse Rate Respiratory Rate Blood Pressure Pulse Oximetry 91 Fraction of Inspired Oxygen 24 Oxygen Delivery Method Room Air Oxygen Flow Rate 0 Narrative Exam Narrative: General: No acute distress, AAO x3. Morbidly obese male. HEENT: Normocephalic, atraumatic. PERRLA and EOMI bilaterally Neck: Supple, obese CV: Regular rate rhythm with no murmurs or gallops Respiratory: Clear to auscultation bilaterally without any crackles wheezes or rhonchi. Normal respiratory effort. Abdomen: Obese, nontender. Positive bowel sounds. Extremities: No clubbing or cyanosis, edema to knees bilaterally. BL wound vacs in place in inner thighs Neuro: NFD Psychiatric: Depressed mood and flat affect. Alert but nods off easily. Poor insight into disease process. 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 Skin: Stage II pressure ulcers x2 on scrotum and posterior thighs bilaterally with wound vacs in place Neuro: No focal defecit Psych: Depressed but more interactive today Objective Labs Result Diagrams: 11/17/18 05:37 11/17/18 05:37 Assessment & Plan Assessment & Plan narrative: 38yo M with a past medical history significant for morbid obesity (BMI 80), asthma on chronic prednisone, obesity hypoventilation syndrome, RAJESH, chronic pain with methadone dependence, and chronic stage II decubitus pressure ulcerations of scrotum and posterior thighs admitted with posterior thighs ulcers. He is s/p debribement and wound vac placement. Pending placement to SNF. 1. Acute on chronic stage II decubitus pressure ulcerations of posterior thighs -with polymicrobial infection versus colonization -Post-debridement by General Surgery. Patient's wounds initially looked infected upon admission now status post debridement are not infected. S/P 10 day Augmentin course completion. -wound VAC placed by wound care due to significant serosanguineous drainage and the need for multiple supplies due to his obesity making it quite complex wound management. -Due to patient's noncompliance with medical management due to no support and obesity, we are awaiting placement to SNF ([facility], [facility]) and [employer] requesting assistance from his insurance. 2. Anemia of chronic disease -stable -Hemoglobin and hematocrit stable. No overt signs of bleeding. Pressure ulcerations are draining serosanguinous as above. -Continue on Iron and vitamin-C. -Monitor H&H daily. Transfusion goal < 7.0. 3. Chronic pain with opiate dependence -Currently on methadone treatment (opiates in the past) -Continue to taper Methadone...Will start 75mg PO Daily as of tomorrow. 4. Depression and anxiety -Continue home Duloxetine and Olanzapine 15 mg daily not 20 mg. Not on lorazepam as an outpatient. 5. Pulmonary hypertension and right sided CHF, chronic and secondary to morbid obesity, OHS, RAJESH, and asthma, present on admission. Stable. -Echocardiogram demonstrated right ventricle is moderate to severely dilated with moderately reduced right ventricular systolic function with severe biatrial enlargement -Continue prednisone 10 mg Daily with 5 mg taper weekly per PCP Dr. Hernández. -Continue albuterol as needed, Advair and CPAP per RT. 6. Morbid obesity -BMI 80 on admission. -Mobilize out of bed as much as he can tolerate. -Limit snacks to 2 per day and follow a heart healthy diet. NO CHIPS, JUICE, POPSICLES. -Patient will benefit from slow taper off prednisone and decrease methadone to lowest possible dose to treat pain. 7. Postoperative hypoxemia -due to prolonged sedation -Suspect Obesity hypoventilation syndrome as well -Intermittently using oxygen, will continue 8. Mild QTc prolongation -Stable, likely medication induced -QTc 476 ms. Patient is on methadone, olanzapine, and duloxetine. -Avoid other QTC prolonging agents such as Zofran, etc. if possible. Disposition: SNF placement. Continue to taper prednisone and methadone. Quality VTE Deep Vein Thrombosis/Pulmonary Embolism Present on Admission: No
--- NOTE | 2018-11-18 12:48 | PT.IPTN ---
Current Diagnoses Pressure ulcer of left buttock, stage 2 (11/03/18) Surgery Performed Operation Date: 11/03/18 15:30 Actual Procedures p Incision and Drainage upper bilateral legs-POSTERIOR(Bilateral) - Yuliet Pratt MD Physical Therapy Treatment Note M2 PT-IP Current Condition Start: 11/07/18 15:13 Freq: NEEDED Status: Active Protocol: Document 11/07/18 10:00 NFW (Rec: 11/07/18 15:55 NFW [id number]) Physical Therapy Current Condition Current Condition Evaluation Date 11/07/18 Treatment Diagnosis Recurring decubitus ulcers Weight Bearing Status Weight Bearing Status Full Weight Bearing M3 PT-IP Subjective Start: 11/07/18 15:13 Freq: NEEDED Status: Active Protocol: Document 11/18/18 12:15 HH (Rec: 11/18/18 12:46 HH [id number]) Subjective Physical Therapy Visit Type Type Discharge Summary Visit Start Time 12:15 Notes Pt refused for the second time today. Communicated with pt about d/c from therapy. Pt firstly agreed but he then tried to negotiate that he will not refuse again in the future. Educated pt regarding his non progressive rehab progress since IE due to self limiting factors. And pt is able to perform ADLs with FWW mod ind with nursing. At this point, the primary factor that limits pt's mobility is his self limiting behavior. M4 PT-IP Mobility and Gait Start: 11/07/18 15:13 Freq: NEEDED Status: Active Protocol: Document 11/17/18 12:06 SA (Rec: 11/17/18 12:18 SA [id number]) PT-Bed Mobility Assessment Rolling Type of Rolling Roll to Right Level of Assist Standby Assistance Supine to Sit Supine to Sit Standby Assistance Bedrails Sit to Supine Sit to Supine Standby Assistance Bedrails Scooting Scooting to Edge of Bed Standby Assistance Scooting Up and Down in Bed Standby Assistance PT-Transfer Assessment Sit to and From Stand Sit to and from Stand Standby Assistance Use of Upper Extremities Equipment Transfer Assistive Device Gait Belt Front Wheeled Walker Transfers Transfer Destination Bed Bedside Commode Transfer Technique Stand Step Pivot Transfer Ability Level of Assist Contact Guard Assistance Comments Mobility Comments Pt very impulsive, unable to keep track of wound vac and cords, Needs assist as he is not receptive to cues or education. Gait Assessment Gait Gait Assistance Required: Standby Assistance 1 Person Assist Distance (Feet) 16 Assistive Devices Assistive Device Front Wheeled Walker Orthotic/Prosthetic Devices or Brace: No Gait Deviations General Gait Pattern Decreased Stride Length Decreased Feet Clearance Flexed Trunk Wide Based Gait Factors Limiting Gait Function Factors Limiting Gait Function Decreased Activity Tolerance Decreased Sensation Decreased Strength Difficulty Following Directions Limited Range of Motion Pain Poor Safety Awareness Comments Gait Comments Pt with antalgic gait with lateral leaning. Demonstrates poor safety awareness and is impulsive with movements. SBA- CGA with gait and Max A to manage wound vac. M5 PT-IP Objective Assessments Start: 11/07/18 15:13 Freq: NEEDED Status: Active Protocol: Document 11/07/18 10:00 NFW (Rec: 11/07/18 15:55 NFW [id number]) Orientation Orientation/Cognition Orientation Name Place Language Function Ability Garbled Speech Comments Fades in and out of alertness. Gross Range of Motion Upper Extremity ROM Assessment Within Functional Limits Lower Extremity ROM Assessment Bilaterally Impaired Impairments Excessive edema into BLEs Strength Upper Extremity Strength Assessment Within Functional Limits Comments Strength Comments LE strength difficult to assess due to pain from ulcers . Has functional strength to walk short distances with FWW. Sensation Assessment Sensation Gross Sensation WNL Muscle Tone Muscle Tone WNL Yes M6 PT-IP Treatment Start: 11/07/18 15:13 Freq: NEEDED Status: Active Protocol: Document 11/17/18 12:06 SA (Rec: 11/17/18 12:18 SA [id number]) Physical Therapy Treatment Exercises Knee ROM Measurement supine bridging, ankle pumps M7 PT-IP Assessment and Plan Start: 11/07/18 15:13 Freq: NEEDED Status: Active Protocol: Document 11/18/18 12:15 (Rec: 11/18/18 12:46 HH [id number]) PT Summary Assessment and Plan Summary Progress Towards Goals Slow Progress due to Pain Slow Progress due to Medical Issues Slow Progress due to Activity Tolerance Slow Progress - Other Assessment Summary Pt refused for the second time today. Communicated with pt about d/c from therapy. Pt firstly agreed but he then tried to negotiate that he will not refuse again in the future. Educated pt regarding his non progressive rehab progress since IE due to self limiting factors. And pt is currently able to perform ADLs with FWW mod I with nursing staff. At this point, the primary factor that limits pt' s mobility is his self limiting behavior. D/C from therapy due to plateau rehab progress and pt's poor participation with therapy. Frequency of Treatment Frequency Of Treatment Discharge Recommendations To Nursing Amount of Assist Needed 1 Person Assist Discharge Recommendations PT Discharge Recommendations SNF Rehab
[2018-11-18] MEDS: HYDROCODONE/ACET 5/325 TABLET 1 TAB PO (13:25)
--- NOTE | 2018-11-18 15:45 | CM.DPNOTE ---
DC Plan note/Social Work note: Reviewed chart morning. /Wednesday efforts: Contacted by Christie Lester re: ethics committee meeting recommendations . These efforts/recommendations will likely by complete and in pt's chart next week. Christie able to update Dr Lewis this morning that rec is for provider to notify pt re: Methadone taper. Christie relays from ethics committee the idea of offering a break through pain medication to assist 30 min prior to wound care dressing changes to assist in pain management. TC from Isaiah Dueñas at [facility] P# [phone] ; had lengthy conversation to review current efforts at [facility], and efforts on pt's behalf here at . Lianna reiterates that family has been contacted and they do not want to be involved at this time. Lianna further explains that pt's medical care will be transferred from [facility] back to the [place] upon his DC d/t pt's non-compliance and unwillingness to address his complicated medical needs. Also Discussed: pt's severe decline in the last 6 mo, pt was able to walk around, he came to appts and was supportive of others at [facility]. Lianna explains pt started therapy that included work around severe PTSD months ago, pt stopped going and since that time has been in a different emotional place per Lianna; this could be a coincidence or a possible trigger (?) Hospice was discussed; all that know pt agree he is in a pattern of self destruction and the question is; has anyone talked to pt about treatment options to include Hospice (?) especially if he does not want to be compliant w/ alternative methods of treatment (?) No good answers or solutions today in discussing w/ Isaiah Dueñas: barriers to care for Babatunde, his complicated medical and social needs, and recent h/o self destructive behaviors and choices. Lianna and this ASSOCIATE DRAFTER agree pt remains a decisional adult so can make his own decisions in care. SNF continues to be the safest DCP option at this time. Faxed clinical packet to [facility] in [place] per suggestion from Surya, . Did not hear back, unable to pursue further today. This ASSOCIATE DRAFTER unable to contact Surya again / Wednesday d/t caseload demands. Efforts may need to continue Wednesday. Following closely. JOSÉ LUIS Palmer
[2018-11-18] MEDS: ACETAMINOPHEN 325 MG TABLET 650 MG PO (17:26)
[2018-11-19] VITALS (11 sets, daily range): BP systolic 113–136; BP diastolic 59–69; PULSE 84–96; RESP 18–20; TEMP 36.6–36.9; O2SAT 90–96
--- NOTE | 2018-11-19 03:24 | PC.NURSE ---
2300- PO benedryl given for inc itching/discomfort. Pt has had all snacks for the day, wound vac in place w/ y tubing, dressing changed during AM shift today, remain intact. 0450- PO Benedryl admin per PRN orders. Pt eating 1st snack of the day, allowed one more snack. L upper arm IV dressing changed.
[2018-11-19] MEDS: diphenhydrAMINE 25 MG TABLET PO ×2 (04:57→17:39)
[2018-11-19 06:03] LABS: Add Manual Diff / Slide Review NO; Basophils Absolute Auto 0 /uL (0-100); Basophils Percent Auto 0.3 % (0-2); Eosinophils Absolute Auto 100 /uL (0-450); Eosinophils Percent Auto 2.7 % (2-4); Hematocrit 26.7 % (41-53); Hemoglobin 8.3 g/dL (13.5-17.5); Lymphocytes Absolute Auto 1300 /uL (1100-4500); Lymphocytes Percent Auto 40.9 % (25-40); Mean Corpuscular Hemoglobin 25.7 PG (26-34); Mean Corpuscular Volume 82.9 fL (80-100); Monocytes Absolute Auto 400 /uL (0-900); Monocytes Percent Auto 13.1 % (3-14); Neutrophils Absolute Auto 1300 /uL (1500-7000); Platelet Count 137 X10^3/uL (150-400); Red Blood Cell Count 3.22 X10^6/uL (4.5-5.9); Red Cell Distribution Width 19.6 % (11.6-14.8); White Blood Cell Count 3.1 X10^3/uL (4.5-11.0)
[2018-11-19 06:06] LABS: BUN Creatinine Ratio 13.3 (6-22); Blood Urea Nitrogen 8 mg/dL (9-20); Calcium 8.1 mg/dL (8.4-10.2); Carbon Dioxide 34 mmol/L (22-32); Chloride 101 mmol/L (98-107); Estimated Glomerular Filt Rate > 60.0 mL/min (>60); Glucose 72 mg/dL (70-100); HEMOLYSIS < 15 (0-50); Potassium 3.9 mmol/L (3.4-5.1); Sodium 138 mmol/L (137-145)
[2018-11-19] MEDS: METHADONE 10 MG TABLET 75 MG PO (08:36)
[2018-11-19] MEDS: FERROUS SULFATE 325 MG TABLET PO (08:38)
[2018-11-19] MEDS: ASCORBIC ACID 500 MG TABLET PO (08:38)
[2018-11-19] MEDS: LACTOBACILLUS ACIDOPHILUS TABLET 1 EACH PO ×2 (08:38→16:58)
[2018-11-19] MEDS: ENOXAPARIN 30 MG/0.3 ML SYRINGE SUBCUT ×2 (08:38→21:32)
[2018-11-19] MEDS: DULOXETINE 30 MG CAPSULE PO (08:38)
[2018-11-19] MEDS: GABAPENTIN 300 MG CAPSULE PO ×3 (08:39→21:33)
[2018-11-19] MEDS: OLANZapine 2.5 MG TABLET 15 MG PO (08:39)
[2018-11-19] MEDS: SODIUM CHLORIDE 0.9% FLUSH 10 ML IV ×2 (08:40→21:33)
--- NOTE | 2018-11-19 09:56 | PC.NURSE ---
Addendum entered by Kat Thao R.N. 11/19/18 15:29: [employer]TE[employer] - noted hx has not recorded the output volume for the wound vac since replacement, marked and recorded the total volume now and discussed w/willy AVINA who will continue recording from the marking. Original Note: AM NOTE - awakened for breakfast, pt is wearing 02 2l 95%, when off desat low to mid 80's, replaced 1l w/sat incr to 94% while dozes, wound vac on continuous suction 125mmhg with serosang drainage in cannister, no air leak noted, pt does have a multiple areas of superficial scratches along his thighs, red and opened areas coccyx, discussed last bm with pt, continues to refuse a stool softener, I'' go later today or any other laxative.
--- NOTE | 2018-11-19 10:20 | PM.PN.1 ---
Subjective Date Patient Seen: 11/19/18 Interval history: He is seen today to follow-up the chronic pain, methadone therapy, wound VAC for sacral ulcers and asthma. His hemoglobin is stable at 8.3. The BMP is normal. Exam Vital Signs (past 8 hours): - 11/19/18 04:00 11/19/18 08:24 11/19/18 10:01 Temperature 98.1 F 98.2 F Pulse Rate 84 86 Respiratory Rate 20 18 Blood Pressure 115/69 127/66 Pulse Oximetry 92 91 94 Fraction of Inspired Oxygen 24 Oxygen Delivery Method Nasal Cannula Oxygen Flow Rate 1 Narrative Exam Narrative: Alert and oriented x3. No apparent distress. He does complain of pain. Heart is regular rate and rhythm without murmur. Lungs are clear to auscultation bilaterally. Abdomen is obese, bowel sounds positive, nontender. Extremities have no ankle edema. The sacral area is not examined as a wound VAC is in place and functioning with dark red fluid of a moderate amount in the container. Objective Labs Result Diagrams: 11/19/18 05:32 11/19/18 05:32 Labs: Laboratory Results - last 24 hr 11/19/18 11/19/18 05:32 05:32 WBC 3.1 L RBC 3.22 L Hgb 8.3 L Hct 26.7 L MCV 82.9 MCH 25.7 L MCHC 31.0 RDW 19.6 H Plt Count 137 L Neut % (Auto) 43.0 L Lymph % (Auto) 40.9 H [place] % (Auto) 13.1 Eos % (Auto) 2.7 Baso % (Auto) 0.3 Neut # (Auto) 1300 L Lymph # (Auto) 1300 [place] # (Auto) 400 Eos # (Auto) 100 Baso # (Auto) 0 Sodium 138 Potassium 3.9 Chloride 101 Carbon Dioxide 34 H BUN 8 L Creatinine 0.60 L Estimated GFR > 60.0 BUN/Creatinine Ratio 13.3 Glucose 72 Calcium 8.1 L Assessment & Plan Assessment & Plan narrative: 1. Acute on chronic stage II decubitus pressure ulcerations of posterior thighs -with polymicrobial infection versus colonization -Post-debridement by General Surgery over 2 weeks ago. Patient's wounds initially looked infected upon admission now status post debridement are not infected. S/P 10 day Augmentin course completion. -wound VAC placed by wound care due to significant serosanguineous drainage and the need for multiple supplies due to his obesity making it quite complex wound management. -Due to patient's noncompliance with medical management due to no support and obesity, we are awaiting placement to SNF ([facility], [facility]) and [employer] requesting assistance from his insurance. 2. Anemia of chronic disease -stable -Hemoglobin and hematocrit stable. No overt signs of bleeding. Pressure ulcerations are draining serosanguinous as above. -Continue on Iron and vitamin-C. -Monitor H&H daily. Transfusion goal < 7.0. 3. Chronic pain with opiate dependence -Currently on methadone treatment (opiates in the past) -Continue to taper Methadone... on 75mg PO Daily 4. Depression and anxiety -Continue home Duloxetine and Olanzapine 15 mg daily not 20 mg. Not on lorazepam as an outpatient. 5. Pulmonary hypertension and right sided CHF, chronic and secondary to morbid obesity, OHS, RAJESH, and asthma, present on admission. Stable. -Echocardiogram demonstrated right ventricle is moderate to severely dilated with moderately reduced right ventricular systolic function with severe biatrial enlargement -Continue prednisone 10 mg Daily with 5 mg taper weekly per PCP Dr. Hernández. -Continue albuterol as needed, Advair and CPAP per RT. 6. Morbid obesity -BMI 80 on admission. -Mobilize out of bed as much as he can tolerate. -Limit snacks to 2 per day and follow a heart healthy diet. NO CHIPS, JUICE, POPSICLES. -Patient will benefit from slow taper off prednisone and decrease methadone to lowest possible dose to treat pain. 7. Postoperative hypoxemia -due to prolonged sedation -Suspect Obesity hypoventilation syndrome as well -Intermittently using oxygen, will continue 8. Mild QTc prolongation -Stable, likely medication induced -QTc 476 ms. Patient is on methadone, olanzapine, and duloxetine. -Avoid other QTC prolonging agents such as Zofran, etc. if possible. Disposition: SNF placement. Continue to taper prednisone and methadone. Quality VTE Deep Vein Thrombosis/Pulmonary Embolism Present on Admission: No
[2018-11-20] VITALS (10 sets, daily range): BP systolic 110–134; BP diastolic 56–68; PULSE 83–103; RESP 20–22; TEMP 36.7–37.1; O2SAT 91–94
--- NOTE | 2018-11-20 05:03 | PC.NURSE ---
2300- Wound vac in place set to cont suction; dressing secured & intact. Pt has some liquid in a cup at his bedside, stated that his family brought soda into the hospital for him to drink & he has it in a red bag in his room. Educated on sugar content in soda & pt is limited to 2 snacks per day. Pt stated that he understood. 0540- PO Benedryl given for itching, see MAR for details.
[2018-11-20] MEDS: diphenhydrAMINE 25 MG TABLET PO ×2 (05:33→13:16)
--- NOTE | 2018-11-20 06:13 | PC.NURSE ---
Patient asked for red bag in his side chair this shift. When patient asked by this RN what was in the bag he replied that it is soda that someone brought him. Patient reminded that he is not allowed to have soda to drink per orders. Patient given copy of approved snack list. Patient did not open soda.
[2018-11-20] MEDS: DULOXETINE 30 MG CAPSULE PO (09:31)
[2018-11-20] MEDS: ASCORBIC ACID 500 MG TABLET PO (09:32)
[2018-11-20] MEDS: GABAPENTIN 300 MG CAPSULE PO ×3 (09:32→21:45)
[2018-11-20] MEDS: ENOXAPARIN 30 MG/0.3 ML SYRINGE SUBCUT ×2 (09:33→21:45)
[2018-11-20] MEDS: LACTOBACILLUS ACIDOPHILUS TABLET 1 EACH PO ×2 (09:33→17:02)
[2018-11-20] MEDS: FERROUS SULFATE 325 MG TABLET PO (09:33)
[2018-11-20] MEDS: OLANZapine 2.5 MG TABLET 15 MG PO (09:34)
[2018-11-20] MEDS: METHADONE 10 MG TABLET 75 MG PO (09:34)
[2018-11-20] MEDS: SODIUM CHLORIDE 0.9% FLUSH 10 ML IV (09:34)
--- NOTE | 2018-11-20 10:34 | PC.NURSE ---
Addendum entered by Kat Thao R.N. 11/20/18 14:42: RESP - when pt asleep, light snoring, 02 sat decr to l02 80's, replaced nc 2l for sat incr to 89-91%. Original Note: Addendum entered by Kat Thao R.N. 11/20/18 14:02: [employer]TEG - standby assist up br w/bm, enc pt to take stool softeners as firm consistency, pt refuses again, the wound vac dsgs are intact and contin 125mmhg, pt bathed and the saturated intradry was removed, cleaned and dried skin folds and replaced new intradry, pt continues to scratch himself both back, legs and sarah areas and does continue to open up superficial areas, freq instructions to not scratch are ignored, given benadryl 25mg when ret bed. Original Note: AM NOTE - pt awake this am talking on phone, asking this am for his methadone, and given 75mg dose, states his wound vac not working sometimes, checked tubing and connections now, serosang in tubing and the contin pressure is 125mmhg, pt saline lock is not patent and removed, per discussion with Dr. Muhammad, may leave out, ra 92%.
--- NOTE | 2018-11-20 11:10 | PM.PN.1 ---
Subjective Date Patient Seen: 11/20/18 Time Patient Seen: 11:10 Interval history: He is seen today to follow up the sacral wounds, asthma, chronic pain, methadone therapy. He is more alert but also somewhat delusional, telling me that he is participating with PT and OT even though they have had to stop coming since he would not do anything with them the last few days. He is also refusing Advair. Exam Vital Signs (past 8 hours): - 11/20/18 04:40 11/20/18 09:05 11/20/18 10:00 Temperature 98.2 F 98.8 F Pulse Rate 91 H 96 H Respiratory Rate 20 22 Blood Pressure 134/65 132/66 Pulse Oximetry 91 91 92 Fraction of Inspired Oxygen 24 Oxygen Delivery Method Room Air Oxygen Flow Rate 1 Narrative Exam Narrative: Heart is regular rate and rhythm without murmur. Lungs clear to auscultation bilaterally. Extremities no ankle edema. He is more alert. He remains anemic. A wound VAC is in place covering up the sacral wounds, which are thus not examined today. Objective Labs Result Diagrams: 11/19/18 05:32 11/19/18 05:32 Assessment & Plan Assessment & Plan narrative: 1. Acute on chronic stage II decubitus pressure ulcerations of posterior thighs -with polymicrobial infection versus colonization -Post-debridement by General Surgery over 2 weeks ago. Patient's wounds initially looked infected upon admission now status post debridement are not infected. S/P 10 day Augmentin course completion. -wound VAC placed by wound care due to significant serosanguineous drainage and the need for multiple supplies due to his obesity making it quite complex wound management. -Due to patient's noncompliance with medical management due to no support and obesity, we are awaiting placement to SNF ([facility], [facility]) and [employer] requesting assistance from his insurance. 2. Anemia of chronic disease -stable -Hemoglobin and hematocrit stable. No overt signs of bleeding. Pressure ulcerations are draining serosanguinous as above. -Continue on Iron and vitamin-C. -Monitor H&H again in 2-3 days. Transfusion goal < 7.0. 3. Chronic pain with opiate dependence -Currently on methadone treatment (opiates in the past) -Continue to taper Methadone... on 75mg PO Daily 4. Depression and anxiety -Continue home Duloxetine and Olanzapine 15 mg daily not 20 mg. Not on lorazepam as an outpatient. 5. Pulmonary hypertension and right sided CHF, chronic and secondary to morbid obesity, OHS, RAJESH, and asthma, present on admission. Stable. -Echocardiogram demonstrated right ventricle is moderate to severely dilated with moderately reduced right ventricular systolic function with severe biatrial enlargement -Continue prednisone 10 mg Daily with 5 mg taper weekly per PCP Dr. Hernández. -Continue albuterol as needed, and CPAP per RT. Stop Advair due to repeated refusals. 6. Morbid obesity -BMI 80 on admission. -Mobilize out of bed as much as he can tolerate. Plan re-evaluation with PT/OT soon. -Limit snacks to 2 per day and follow a heart healthy diet. NO CHIPS, JUICE, POPSICLES. -Patient will benefit from slow taper off prednisone and decrease methadone to lowest possible dose to treat pain. 7. Postoperative hypoxemia -due to prolonged sedation -Suspect Obesity hypoventilation syndrome as well -Intermittently using oxygen, will continue 8. Mild QTc prolongation -Stable, likely medication induced -QTc 476 ms. Patient is on methadone, olanzapine, and duloxetine. -Avoid other QTC prolonging agents such as Zofran, etc. if possible. Disposition: SNF placement. Continue to taper prednisone and methadone. Quality VTE Deep Vein Thrombosis/Pulmonary Embolism Present on Admission: No
--- NOTE | 2018-11-20 14:43 | CM.DPC ---
DCP Cont: Per MD, pt mostly stable but not always accurate in his accounts of what he is participating in (ie states he is working with PT/OT even though they discharged him due to limited participation). Methadone taper continues. SW discussed with MD about Goals of Care discussion with pt to clarify pt's wishes in regards to treatment since he has been fairly minimally involved in his treatment recommendations and lack of follow through. MD has concerns that pt is delayed cognitively and unsure if he would be able to fully understand and participate in a Goals of Care discussion without family or a support person bedside. Family have slowly pulled away from the pt and being involved in his care and plans and has not had visitors during his admits. SW called [facility] admission ([phone]) and left a message to inquire about their review of pt's referral sent on 11/17/18. Plan: SW to follow closely on Wednesday when Surya is open to further discuss options with pt's Surya Mendoza ([phone]) regarding further bariatric/[place] contracted SNF's. SW to follow for return call from [facility] after their review of pt's clinicals. JOSÉ LUIS Leon
[2018-11-20] MEDS: predniSONE 10 MG TABLET PO (17:02)
[2018-11-20] MEDS: ACETAMINOPHEN 325 MG TABLET 650 MG PO (19:01)
--- NOTE | 2018-11-20 22:22 | PC.NURSE ---
1500- assumed care of pt. pt asleep in bed. call light and belonging within reach. will continue to monitor. 1530- pt chugged a sprite he obtained from home. juice removed from dinner tray, no snacks administered this shift. 1600- pt checked on. noticed woundvac shows air leak. dressing changed to ruth ann wounds. suction 125 mmHg. duoderm applied to periwound skin. pt has scratched himself to the point where he has some spots that are open to upper thighs. encouraged to stop scratching. Pt able to turn to right side for left leg dressing change. and had to blaine lift right leg for right leg dressing change. pt tolerated poorly. pt was crying and moaning. pt needed multiple breaks to let knees relax and for pt to adjust. Pt cleaned, washed all abd and skin folds. barrier cream applied to post bottom and open wounds pt has scratched. scrotum and groin folds cleaned and dried. nystatin powder applied. interdry removed bc it was tucked too far into skin fold. no bed alarm option on pts bed. pt unable to move wihtout staff moving medical equipment .will continue to monitor.
[2018-11-21] VITALS (13 sets, daily range): BP systolic 115–136; BP diastolic 58–66; PULSE 75–83; RESP 17–20; TEMP 36.2–36.8; O2SAT 87–98
[2018-11-21] MEDS: ACETAMINOPHEN 325 MG TABLET 650 MG PO ×2 (06:16→18:35)
[2018-11-21] MEDS: diphenhydrAMINE 25 MG TABLET PO ×3 (06:16→18:46)
--- NOTE | 2018-11-21 06:20 | PC.NURSE ---
Wound Vac at 125mmHG continuous suction, with sero-sanguinous/brown drainage. About 50mL total for shift. Working well, no leaks noted. Assessed q2h. Patient slept throughout most of shift with no issues. Woke up to use commode, upon returning to bed starting crying and moaning out. Tylenol given. Benadryl given for itchiness. No snacks given this shift. Under skin folds wiped down and cleansed.
[2018-11-21] MEDS: LACTOBACILLUS ACIDOPHILUS TABLET 1 EACH PO ×2 (09:56→17:50)
[2018-11-21] MEDS: METHADONE 10 MG TABLET 75 MG PO (09:56)
[2018-11-21] MEDS: DULOXETINE 30 MG CAPSULE PO (09:57)
[2018-11-21] MEDS: GABAPENTIN 300 MG CAPSULE PO ×3 (09:57→21:50)
[2018-11-21] MEDS: OLANZapine 2.5 MG TABLET 15 MG PO (09:57)
[2018-11-21] MEDS: FERROUS SULFATE 325 MG TABLET PO (09:57)
[2018-11-21] MEDS: ASCORBIC ACID 500 MG TABLET PO (09:57)
[2018-11-21] MEDS: ENOXAPARIN 30 MG/0.3 ML SYRINGE SUBCUT ×2 (09:58→21:50)
--- NOTE | 2018-11-21 15:39 | PC.NURSE ---
Eleanorr summary: Dozing off and on most of the day. Wound vac to continuous 125 mm/Hg, functioning without issue, scant brownish drainage. Reported minimal pain. Given Benadryl for itching. On 2L O2 with sats in the mid 90's (was 84-87% on room air), lungs CTA. HRR. waterworks operator Ariella spoke to Kiersten Pérez (wound care nurse) and informed that wound vac dressing was changed last evening. Per Kiersten, she will be here on Wednesday to do the next dressing change. Patient calls appropriately for assistance. Family brought food from [facility] at lunchtime which patient decided not to eat. He was very proud of himself and said so, stated I thought, I've been doing so well on my diet here and I just decided I didn't want to eat it. This commercial loan underwriter offered words of encouragement to continue with diet plan. Call yumiko in [facility] to [facility].
--- NOTE | 2018-11-21 18:05 | PM.PN.1 ---
Subjective Date Patient Seen: 11/21/18 Interval history: Patient is severely obese 38-year-old male admitted due to worsening chronic sacral wounds, on methadone for chronic pain. Patient states his pain is about the same. He has been stable for hospital discharge except we are awaiting insurance authorization for fdc. 1. Acute on chronic stage II decubitus pressure ulcerations of posterior thighs -with polymicrobial infection versus colonization -Post-debridement by General Surgery over 2 weeks ago. Patient's wounds initially looked infected upon admission now status post debridement are not infected. S/P 10 day Augmentin course completion. -wound VAC placed by wound care due to significant serosanguineous drainage and the need for multiple supplies due to his obesity making it quite complex wound management. -Due to patient's noncompliance with medical management due to no support and obesity, we are awaiting placement to SNF ([facility], [facility]) and COUNSELING CENTER DIRECTOR requesting assistance from his insurance. 2. Anemia of chronic disease -stable, very chronic -Hemoglobin and hematocrit stable. No overt signs of bleeding. Pressure ulcerations are draining serosanguinous as above. -Continue on Iron and vitamin-C. 3. Chronic pain with opiate dependence -Currently on methadone treatment (opiates in the past) -Continue to taper Methadone... on 75mg PO Daily 4. Depression and anxiety -Continue home Duloxetine and Olanzapine 15 mg daily not 20 mg. Not on lorazepam as an outpatient. 5. Pulmonary hypertension and right sided CHF, chronic and secondary to morbid obesity, OHS, RAJESH, and asthma, present on admission. Stable. -Echocardiogram demonstrated right ventricle is moderate to severely dilated with moderately reduced right ventricular systolic function with severe biatrial enlargement -tapered prednisone to 5 mg daily as of 11/22/2018, he had been on prednisone 10 mg daily with instructions for 5 mg taper weekly per PCP Dr. Hernández. -Continue albuterol as needed, and CPAP per RT. Stop Advair due to repeated refusals. 6. Morbid obesity -BMI 80 on admission. -Mobilize out of bed as much as he can tolerate. Plan re-evaluation with PT/OT soon. -Limit snacks to 2 per day and follow a heart healthy diet. NO CHIPS, JUICE, POPSICLES. -Patient will benefit from slow taper off prednisone and decrease methadone to lowest possible dose to treat pain. 7. Postoperative hypoxemia -due to prolonged sedation -Suspect Obesity hypoventilation syndrome as well -Intermittently using oxygen, will continue 8. Mild QTc prolongation -Stable, likely medication induced -QTc 476 ms. Patient is on methadone, olanzapine, and duloxetine. -Avoid other QTC prolonging agents such as Zofran, etc. if possible. Disposition: SNF placement. Continue to taper prednisone and methadone as tolerated. Exam Vital Signs (past 8 hours): - 11/21/18 11:35 11/21/18 12:00 Temperature 97.2 F L Pulse Rate 82 Respiratory Rate 18 Blood Pressure 126/62 Pulse Oximetry 95 97 Fraction of Inspired Oxygen 24 Oxygen Delivery Method Nasal Cannula Oxygen Flow Rate 1 Narrative Exam Narrative: General: Alert, pleasant and in no acute distress Lungs: Faint bilateral expiratory wheeze Skin: Bilateral wound VAC in place for sacral wounds, no surrounding erythema Objective Labs Result Diagrams: 11/19/18 05:32 11/19/18 05:32 Quality VTE Deep Vein Thrombosis/Pulmonary Embolism Present on Admission: No
--- NOTE | 2018-11-21 18:10 | P.PN_ITS ---
Subjective Date Patient Seen: 11/21/18 Interval history: Patient is severely obese 38-year-old male admitted due to worsening chronic sacral wounds, on methadone for chronic pain. Patient states his pain is about the same. He has been stable for hospital discharge except we are awaiting insurance authorization for residential. 1. Acute on chronic stage II decubitus pressure ulcerations of posterior thighs -with polymicrobial infection versus colonization -Post-debridement by General Surgery over 2 weeks ago. Patient's wounds initially looked infected upon admission now status post debridement are not infected. S/P 10 day Augmentin course completion. -wound VAC placed by wound care due to significant serosanguineous drainage and the need for multiple supplies due to his obesity making it quite complex wound management. -Due to patient's noncompliance with medical management due to no support and obesity, we are awaiting placement to SNF ([facility], [facility]) and DENTAL MECHANIC requesting assistance from his insurance. 2. Anemia of chronic disease -stable, very chronic -Hemoglobin and hematocrit stable. No overt signs of bleeding. Pressure ulcerations are draining serosanguinous as above. -Continue on Iron and vitamin-C. 3. Chronic pain with opiate dependence -Currently on methadone treatment (opiates in the past) -Continue to taper Methadone... on 75mg PO Daily 4. Depression and anxiety -Continue home Duloxetine and Olanzapine 15 mg daily not 20 mg. Not on lorazepam as an outpatient. 5. Pulmonary hypertension and right sided CHF, chronic and secondary to morbid obesity, OHS, RAJESH, and asthma, present on admission. Stable. -Echocardiogram demonstrated right ventricle is moderate to severely dilated with moderately reduced right ventricular systolic function with severe biatrial enlargement -tapered prednisone to 5 mg daily as of 11/22/2018, he had been on prednisone 10 mg daily with instructions for 5 mg taper weekly per PCP Dr. Hernández. -Continue albuterol as needed, and CPAP per RT. Stop Advair due to repeated refusals. 6. Morbid obesity -BMI 80 on admission. -Mobilize out of bed as much as he can tolerate. Plan re-evaluation with PT/OT soon. -Limit snacks to 2 per day and follow a heart healthy diet. NO CHIPS, JUICE, POPSICLES. -Patient will benefit from slow taper off prednisone and decrease methadone to lowest possible dose to treat pain. 7. Postoperative hypoxemia -due to prolonged sedation -Suspect Obesity hypoventilation syndrome as well -Intermittently using oxygen, will continue 8. Mild QTc prolongation -Stable, likely medication induced -QTc 476 ms. Patient is on methadone, olanzapine, and duloxetine. -Avoid other QTC prolonging agents such as Zofran, etc. if possible. Disposition: SNF placement. Continue to taper prednisone and methadone as tolerated. Exam Vital Signs (past 8 hours): - 11/21/18 11:35 11/21/18 12:00 Temperature 97.2 F L Pulse Rate 82 Respiratory Rate 18 Blood Pressure 126/62 Pulse Oximetry 95 97 Fraction of Inspired Oxygen 24 Oxygen Delivery Method Nasal Cannula Oxygen Flow Rate 1 Narrative Exam Narrative: General: Alert, pleasant and in no acute distress Lungs: Faint bilateral expiratory wheeze Skin: Bilateral wound VAC in place for sacral wounds, no surrounding erythema Objective Labs Result Diagrams: 11/19/18 05:32 11/19/18 05:32 Quality VTE Deep Vein Thrombosis/Pulmonary Embolism Present on Admission: No
[2018-11-22] VITALS (10 sets, daily range): BP systolic 123–145; BP diastolic 52–78; PULSE 69–110; RESP 16–18; TEMP 36.7–36.9; O2SAT 93–97
[2018-11-22] MEDS: FERROUS SULFATE 325 MG TABLET PO (09:50)
[2018-11-22] MEDS: GABAPENTIN 300 MG CAPSULE PO ×3 (09:50→21:43)
[2018-11-22] MEDS: DOCUSATE 100 MG CAPSULE PO ×2 (09:50→21:43)
[2018-11-22] MEDS: DULOXETINE 30 MG CAPSULE PO (09:50)
[2018-11-22] MEDS: ENOXAPARIN 30 MG/0.3 ML SYRINGE SUBCUT ×2 (09:51→21:43)
[2018-11-22] MEDS: OLANZapine 2.5 MG TABLET 15 MG PO (09:51)
[2018-11-22] MEDS: ASCORBIC ACID 500 MG TABLET PO (09:51)
[2018-11-22] MEDS: LACTOBACILLUS ACIDOPHILUS TABLET 1 EACH PO ×2 (09:51→19:40)
[2018-11-22] MEDS: METHADONE 10 MG TABLET 75 MG PO (09:53)
[2018-11-22] MEDS: diphenhydrAMINE 25 MG TABLET PO (10:35)
[2018-11-22] MEDS: NYSTATIN POWDER 30 GM 1 APPLIC TOP (10:35)
[2018-11-22] MEDS: ACETAMINOPHEN 325 MG TABLET 650 MG PO (10:36)
--- NOTE | 2018-11-22 13:13 | PC.NURSE ---
Addendum entered by Arely Bean R.N. 11/22/18 14:39: This RN spoke with GARY Pérez about ongoing issues with wound vac/air leak. She said she should be able to come up approx 1630 to assess dressings/wound vac. Will relay this info to next shift and to patient. Original Note: Addendum entered by Arely Bean R.N. 11/22/18 13:59: Patient up to commode and had dark-colored blood tinged drainage that seemed to be coming out from under the wound vac dressing on his R thigh. This promotion writer cleaned his leg and reinforced the dressing around the posterior edges. Wound vac on cont. 125 mm/Hg and is currently working with a small air leak. Will update GARY Burch when she returns my call. Original Note: Wound vac- Wound vac has had an issue with a small air leak ever since he got up to the bathroom approx 0600. shift boss RN and I worked on it together first thing this morning, and this promotion writer has been trying fix the leak throughout the day. Spoke with Kiersten (GARY) and she advised trying skin prep and then additional tegaderm. Skin prep/tegaderm added, but still showing a small leak. Despite the leak, there has been brownish drainage noted moving through tubing. Set to 125 mm/Hg continuous. This promotion writer left a message for Kiersten (at 1300)- anticipate call back. In the meantime will continue to monitor and troubleshoot as able.
--- NOTE | 2018-11-22 16:25 | CM.DPC ---
DCP/continued: Reviewed chart this AM. PRESS OPERATOR [employer] placed call to [facility] per Surya's request. Spoke with admit at [facility] this AM. They requested that I.H. fax updated clinical for review. Asked GERRY/Florence to fax to [facility] and scan confirmation in EMR. Placed call to Surya SHEPHERD/Yuliet Reji informing her that [facility] willing to review again. Yuliet left indicating that she will call them and attempt to negotiate rate. Notified Yuliet that they have not yet accepted. Also spoke with Yuliet at [facility] she reports that they cannot accept this high of an acuity at this time. P: Continued search for placement. Yuliet Mendoza from Surya assisting and recommends [facility] facility. JOSÉ LUIS Noriega
--- NOTE | 2018-11-22 18:16 | PC.NURSE ---
Wound Care Nurse Consult Note Received phone call this morning stating that Wound Vac was showing a leak. I gave a tip for looking for the leak, but this did not work. I arrived at 4:00 and removed both dressings and reapplied Wound Vac dressing since it would need to be changed tomorrow anyway. Left Posterior Thigh measures 13.0 x 6.0 x o.3 Beefy red granulation tissue. Sarah-wound is intact. The black sponge was stuck to the wound base so I used one piece of WHITE FOAM, then bridged with one piece of black foam with a black foam as a button to his anterior thigh. Right Posterior Thigh measures 12.0 c6.0 x 0.5. Beefy red granulation tissue and the sarah-wound is intact. I did the same thing as the left thigh, since the black foam did stick to the wound. Both wounds were photographed. There was approx 25cc of serosanguenous drainage in the canister. The canister and the Y connecter were also change. Babatunde was very patient and helpful more than he has been in the past. He did very well keeping his leg up in the sling during the dressing changes with one break each leg. The Wound Vac is set at 125mmHg Continuous.
--- NOTE | 2018-11-22 19:30 | P.PN_ITS ---
Subjective Date Patient Seen: 11/22/18 Interval history: Patient is severely obese 38-year-old male admitted due to worsening chronic sacral wounds, on methadone for chronic pain. Patient states his pain is about the same. He has been stable for hospital discharge except we are awaiting insurance authorization for nursing home or LTAC. Exam Vital Signs (past 8 hours): - 11/22/18 13:09 11/22/18 13:10 11/22/18 15:00 Temperature 98.4 F Pulse Rate 76 Respiratory Rate 16 Blood Pressure 123/63 Pulse Oximetry 97 97 96 Fraction of Inspired Oxygen 24 Oxygen Delivery Method Nasal Cannula Oxygen Flow Rate 2 Narrative Exam Narrative: General: Sleepy, pleasant and in no acute distress Lungs: Faint bilateral expiratory wheeze Skin: Bilateral wound VAC in place for sacral wounds, no surrounding erythema Objective Labs Result Diagrams: 11/19/18 05:32 11/19/18 05:32 Assessment & Plan Assessment & Plan narrative: Patient is severely obese 38-year-old male admitted due to worsening chronic sacral wounds, on methadone for chronic pain. Patient s tates his pain is about the same. He has been stable for hospital discharge except we are awaiting insurance authorization for nursing home or LTAC. 1. Acute on chronic stage II decubitus pressure ulcerations of posterior thighs -with polymicrobial infection versus colonization -Post-debridement by General Surgery over 2 weeks ago. Patient's wounds initially looked infected upon admission now status post debridement are not infected. S/P 10 day Augmentin course completion. -wound VAC placed by wound care due to significant serosanguineous drainage and the need for multiple supplies due to his obesity making it quite complex wound management. -Due to patient's noncompliance with medical management due to no support and obesity, we are awaiting placement to SNF ([facility], [facility]) and HEATING EQUIPMENT INSTALLER requesting assistance from his insurance. 2. Anemia of chronic disease -stable, very chronic -Hemoglobin and hematocrit stable. No overt signs of bleeding. Pressure ulcerations are draining serosanguinous as above. -Continue on Iron and vitamin-C. 3. Chronic pain with opiate dependence -Currently on methadone treatment (opiates in the past) -Continue to taper Methadone... on 75mg PO Daily 4. Depression and anxiety -Continue home Duloxetine and Olanzapine 15 mg daily not 20 mg. Not on lorazepam as an outpatient. 5. Pulmonary hypertension and right sided CHF, chronic and secondary to morbid obesity, OHS, RAJESH, and asthma, present on admission. Stable. -Echocardiogram demonstrated right ventricle is moderate to severely dilated with moderately reduced right ventricular systolic function with severe biatrial enlargement -tapered prednisone to 5 mg daily as of 11/22/2018, he had been on prednisone 10 mg daily with instructions for 5 mg taper weekly per PCP Dr. Hernández. -Continue albuterol as needed, and CPAP per RT. Stop Advair due to repeated refusals. 6. Morbid obesity -BMI 80 on admission. -Mobilize out of bed as much as he can tolerate. Plan re-evaluation with PT/OT soon. -Limit snacks to 2 per day and follow a heart healthy diet. NO CHIPS, JUICE, POPSICLES. -Patient will benefit from slow taper off prednisone and decrease methadone to lowest possible dose to treat pain. 7. Postoperative hypoxemia -due to prolonged sedation -Suspect Obesity hypoventilation syndrome as well -Intermittently using oxygen, will continue 8. Mild QTc prolongation -Stable, likely medication induced -QTc 476 ms. Patient is on methadone, olanzapine, and duloxetine. -Avoid other QTC prolonging agents such as Zofran, etc. if possible. Disposition: LTAC or SNF placement. Continue to taper prednisone and methadone as tolerated. Quality VTE Deep Vein Thrombosis/Pulmonary Embolism Present on Admission: No
[2018-11-23] VITALS (8 sets, daily range): BP systolic 110–141; BP diastolic 57–63; PULSE 66–91; RESP 16–18; TEMP 36.2–36.7; O2SAT 92–99
--- NOTE | 2018-11-23 06:35 | P.PN_ITS ---
Subjective Date Patient Seen: 11/23/18 Interval history: Bbaatunde Fitzgerald is a 38-year-old male with a past medical history significant for morbid obesity (BMI 80), asthma on chronic prednisone, obesity hypoventilation syndrome, RAJESH, chronic pain with methadone dependence, and chronic stage II decubitus pressure ulcerations of scrotum and posterior thighs who presented for increased pain and drainage of stage II decubitus pressure ulcerations of posterior thighs. The patient is resting in bed comfortably. Continuing wound VAC for stage II decubitus ulcers on bilateral posterior thighs. The patient continues to endorse chronic pruritus and has multiple excoriations over scan including face. He denies headache, shortness of breath, chest pain, abdominal pain, nausea, vomiting, fever, chills, dysuria, diarrhea or constipation. He is voiding and eliminating without difficulty. He is up ambulating very minimally with full assistance. He has been stable for hospital discharge except we are awaiting insurance authorization for residential facility or LTAC. Exam Vital Signs (past 8 hours): - 11/22/18 23:00 11/22/18 23:50 Temperature 98.1 F Pulse Rate 69 Respiratory Rate 16 Blood Pressure 125/52 L Pulse Oximetry 97 97 Fraction of Inspired Oxygen 24 Oxygen Delivery Method Nasal Cannula Oxygen Flow Rate 2 Narrative Exam Narrative: General: Young morbidly obese gentleman lying in bed and in no acute distress, well-developed, well-nourished, alert but nods off easily during mid conversation. HEENT: Normocephalic, atraumatic. External ears without defect. Pupils equal, round, and reactive to light. Anicteric sclerae, moist conjunctivae, and no lid lag. Several excoriations on face. Neck: Supple with full range of motion. No lymphadenopathy or thyromegaly. Cardiovascular: Heart sounds distant but appear regular rate and rhythm without murmurs, rubs, or gallops appreciated. Pulmonary: Clear to auscultation bilaterally without crackles, wheezes, or rhonchi. Normal respiratory effort with no use of accessory muscles. Abdomen: Soft, obese, bowel sounds present, nontender, nondistended. No hepatosplenomegaly or masses appreciated. Extremities: No clubbing or cyanosis. Brawny edema to knees bilaterally. Skin: Normal temperature, turgor, and texture; 2 stage II pressure ulcers on scrotum and 2 stage II pressure ulcers on posterior thighs bilaterally (please see wound care note) with significant serosanguineous drainage but pink and beefy and do not appear to be infected with mild granulation tissue and wound VAC in place bilaterally. Neurological: Cranial nerves grossly intact. Psychiatric: Depressed mood and flat affect. Alert but nods off easily. Poor insight into disease process. 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 1. Acute on chronic stage II decubitus pressure ulcerations of posterior thighs, present on admission. Active. -With polymicrobial infection versus colonization. -Post-debridement by General Surgery over 2 weeks ago. Patient's wounds initially looked infected upon admission now status post debridement are not infected. S/P 10 day Augmentin course completion. -Wound VAC placed by wound care due to significant serosanguineous drainage and the need for multiple supplies due to his obesity making it quite complex wound management. -Due to patient's noncompliance with medical management due to no support and obesity, we are awaiting placement to SNF ([facility], [facility]) and IMMUNOLOGIST requesting assistance from his insurance. 2. Anemia of chronic disease , present on admission. Stable. -Stable, very chronic. -Hemoglobin and hematocrit stable. No overt signs of bleeding. Pressure ulcerations are draining serosanguinous as above. -Continue on Iron and vitamin-C supplementation. 3. Chronic pain with opiate dependence , present on admission. Stable. -Currently on methadone treatment (opiates in the past) -Continue to taper Methadone... on 75mg PO Daily 4. Depression and anxiety, chronic, present on admission. Stable. -Continue home Duloxetine and Olanzapine 15 mg daily not 20 mg. Not on lorazepam as an outpatient. 5. Pulmonary hypertension and right sided CHF, chronic and secondary to morbid obesity, OHS, RAJESH, and asthma, present on admission. Stable. -Echocardiogram demonstrated right ventricle is moderate to severely dilated with moderately reduced right ventricular systolic function with severe biatrial enlargement -Tapered prednisone to 5 mg daily as of 11/22/2018, he had been on prednisone 10 mg daily with instructions for 5 mg taper weekly per PCP Dr. Hernández. -Continue albuterol as needed, and CPAP per RT. Stop Advair due to repeated refusals. 6. Morbid obesity, chronic, present on admission. Stable. -BMI 80 on admission. -Mobilize out of bed as much as he can tolerate. Continue physical therapy and occupational therapy as much as possible. -Limit snacks to 2 per day and follow a heart healthy diet. NO CHIPS, JUICE, POPSICLES. -Patient will benefit from slow taper off prednisone and decrease methadone to lowest possible dose to treat pain. 7. Post-operative hypoxemia, not present on admission. Resolved. -Due to prolonged sedation, and chronic issues including RAJESH, OHS, and asthma as well. -Intermittently using oxygen, will continue as needed. 8. 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 Stable. -QTc 476 ms. Patient is on methadone, olanzapine, and duloxetine. -Avoid other QTc prolonging agents such as Zofran, etc. if possible. Disposition: LTAC or SNF placement. Continue to taper prednisone and methadone as tolerated. Quality VTE Deep Vein Thrombosis/Pulmonary Embolism Present on Admission: No
[2018-11-23] MEDS: ACETAMINOPHEN 325 MG TABLET 650 MG PO ×3 (06:56→21:36)
[2018-11-23] MEDS: diphenhydrAMINE 25 MG TABLET PO ×3 (06:56→21:37)
[2018-11-23] MEDS: ENOXAPARIN 30 MG/0.3 ML SYRINGE SUBCUT ×2 (08:51→21:35)
[2018-11-23] MEDS: DULOXETINE 30 MG CAPSULE PO (08:51)
[2018-11-23] MEDS: GABAPENTIN 300 MG CAPSULE PO ×3 (08:52→21:36)
[2018-11-23] MEDS: ASCORBIC ACID 500 MG TABLET PO (08:52)
[2018-11-23] MEDS: OLANZapine 2.5 MG TABLET 15 MG PO (08:52)
[2018-11-23] MEDS: FERROUS SULFATE 325 MG TABLET PO (08:52)
[2018-11-23] MEDS: METHADONE 10 MG TABLET 75 MG PO (08:59)
[2018-11-23] MEDS: predniSONE 5 MG TABLET PO (17:00)
[2018-11-23] MEDS: LACTOBACILLUS ACIDOPHILUS TABLET 1 EACH PO (17:06)
[2018-11-23] MEDS: NYSTATIN POWDER 30 GM 1 APPLIC TOP ×2 (17:30→23:42)
[2018-11-24 05:02] VITALS: BP 135/60; PULSE 80; RESP 20; TEMP 36.7; O2SAT 100
--- NOTE | 2018-11-24 07:31 | P.PN_ITS ---
Subjective Date Patient Seen: 11/24/18 Interval history: Babatunde Fitzgerald is a 38-year-old male with a past medical history significant for morbid obesity (BMI 80), asthma on chronic prednisone, obesity hypoventilation syndrome, RAJESH, chronic pain with methadone dependence, and chronic stage II decubitus pressure ulcerations of scrotum and posterior thighs who presented for increased pain and drainage of stage II decubitus pressure ulcerations of posterior thighs. The patient is resting in bed comfortably. He reports he is making healthy decisions in regard to diet and declined fried chicken his family brought in. Continuing wound VAC for stage II decubitus ulcers on bilateral posterior thighs which is to be changed today. The patient continues to endorse chronic pruritus and has multiple excoriations over scan including face. He denies headache, shortness of breath, chest pain, abdominal pain, nausea, vomiting, fever, chills, dysuria, diarrhea or constipation. He is voiding and eliminating without difficulty. He is up ambulating very minimally with full assistance. MARKET RESEARCH COORDINATOR and I had a discussion with the patient regarding goals of care, as well as, home environment. The patient reports that he has a strong desire to live and does not want to continue living the way he is. He would like to be able to ambulate again and be a functional member of society. He seems to have some developmental delay and/or cognitive impairment related to methadone use. He felt as though there were right answers and he was accommodating us with his answers. He has been stable for hospital discharge except we are awaiting insurance authorization for fdc facility or LTAC. Exam Vital Signs (past 8 hours): - 11/23/18 23:45 11/23/18 23:55 11/24/18 05:02 Temperature 97.5 F L 98.0 F Pulse Rate 91 H 80 Respiratory Rate 16 20 Blood Pressure 126/63 135/60 Pulse Oximetry 97 95 100 Fraction of Inspired Oxygen 24 Oxygen Delivery Method Room Air,Nasal Cannula Oxygen Flow Rate 2 Narrative Exam Narrative: General: Young morbidly obese gentleman lying in bed and in no acute distress, well-developed, well-nourished, alert but nods off easily during mid conversation. HEENT: Normocephalic, atraumatic. External ears without defect. Pupils equal, round, and reactive to light. Anicteric sclerae, moist conjunctivae, and no lid lag. Several excoriations on face. Neck: Supple with full range of motion. No lymphadenopathy or thyromegaly. Cardiovascular: Heart sounds distant but appear regular rate and rhythm without murmurs, rubs, or gallops appreciated. Pulmonary: Clear to auscultation bilaterally without crackles, wheezes, or rhonchi. Normal respiratory effort with no use of accessory muscles. Abdomen: Soft, obese, bowel sounds present, nontender, nondistended. No hepatosplenomegaly or masses appreciated. Extremities: No clubbing or cyanosis. Brawny edema to knees bilaterally. Skin: Normal temperature, turgor, and texture; 2 stage II pressure ulcers on scrotum and 2 stage II pressure ulcers on posterior thighs bilaterally (please see wound care note) with significant serosanguineous drainage but pink and bee fy and do not appear to be infected with mild granulation tissue and wound VAC in place bilaterally. Neurological: Cranial nerves grossly intact. Psychiatric: Depressed mood and flat affect. Alert but nods off easily. Poor insight into disease process. 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 Objective Labs Result Diagrams: 11/19/18 05:32 11/19/18 05:32 Assessment & Plan Assessment & Plan narrative: Babatunde Fitzgerald is a 38-year-old male with a past medical history significant for morbid obesity (BMI 80), asthma on chronic prednisone, obesity hypoventilation syndrome, RAJESH, chronic pain with methadone dependence, and chronic stage II decubitus pressure ulcerations of scrotum and posterior thighs who presented for increased pain and drainage of stage II decubitus pressure ulcerations of posterior thighs. 1. Acute on chronic stage II decubitus pressure ulcerations of posterior thighs, present on admission. Active. -With polymicrobial infection versus colonization. -Post-debridement by General Surgery over 2 weeks ago. Patient's wounds initially looked infected upon admission now status post debridement are not infected. S/P 10 day Augmentin course completion. -Wound VAC placed by wound care due to significant serosanguineous drainage and the need for multiple supplies due to his obesity making it quite complex wound management. -Due to patient's noncompliance with medical management due to no support and obesity, we are awaiting placement to SNF ([facility], [facility]) and MARKET RESEARCH COORDINATOR requesting assistance from his insurance. 2. Anemia of chronic disease , present on admission. Stable. -Stable, very chronic. -Hemoglobin and hematocrit stable. No overt signs of bleeding. Pressure ulcerations are draining serosanguinous as above. -Continue on Iron and vitamin-C supplementation. 3. Chronic pain with opiate dependence , present on admission. Stable. -Currently on methadone treatment (opiates in the past) -Continue to taper Methadone... on 75mg PO Daily 4. Depression and anxiety, chronic, present on admission. Stable. -Continue home Duloxetine and Olanzapine 15 mg daily not 20 mg. Not on sena zepam as an outpatient. 5. Pulmonary hypertension and right sided CHF, chronic and secondary to morbid obesity, OHS, RAJESH, and asthma, present on admission. Stable. -Echocardiogram demonstrated right ventricle is moderate to severely dilated with moderately reduced right ventricular systolic function with severe biatrial enlargement -Tapered prednisone to 5 mg daily as of 11/22/2018, he had been on prednisone 10 mg daily with instructions for 5 mg taper weekly per PCP Dr. Hernández. -Continue albuterol as needed, and CPAP per RT. Stop Advair due to repeated refusals. 6. Morbid obesity, chronic, present on admission. Stable. -BMI 80 on admission. BMI down to 70.5 since admission. -Mobilize out of bed as much as he can tolerate. Continue physical therapy and occupational therapy as much as possible. -Limit snacks to 2 per day and follow a heart healthy diet. NO CHIPS, JUICE, POPSICLES. -Patient will benefit from slow taper off prednisone and decrease methadone to lowest possible dose to treat pain. 7. Post-operative hypoxemia, not present on admission. Resolved. -Due to prolonged sedation, and chronic issues including RAJESH, OHS, and asthma as well. -Intermittently using oxygen, will continue as needed. 8. 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 Stable. -QTc 476 ms. Patient is on methadone, olanzapine, and duloxetine. -Avoid other QTc prolonging agents such as Zofran, etc. if possible. Disposition: LTAC or SNF placement. Continue to taper prednisone and methadone as tolerated. Quality VTE Deep Vein Thrombosis/Pulmonary Embolism Present on Admission: No
[2018-11-24] MEDS: DULOXETINE 30 MG CAPSULE PO (09:15)
[2018-11-24] MEDS: GABAPENTIN 300 MG CAPSULE PO ×3 (09:15→22:28)
[2018-11-24] MEDS: FERROUS SULFATE 325 MG TABLET PO (09:16)
[2018-11-24] MEDS: ENOXAPARIN 30 MG/0.3 ML SYRINGE SUBCUT ×2 (09:16→22:28)
[2018-11-24] MEDS: ASCORBIC ACID 500 MG TABLET PO (09:16)
[2018-11-24] MEDS: OLANZapine 2.5 MG TABLET 15 MG PO (09:16)
[2018-11-24] MEDS: METHADONE 10 MG TABLET 75 MG PO (09:24)
--- NOTE | 2018-11-24 10:48 | PC.NURSE ---
Pt continues to refuse wearing his waffle boots. He has been educated to the fact that he is at risk for developing further pressure wounds. Wound vac dressings to bilaterall, posterior lower extremities are holding suction appropriately.
[2018-11-24 11:00] VITALS: O2SAT 93
[2018-11-24 13:00] VITALS: BP 130/62; PULSE 75; RESP 18; TEMP 36.6; O2SAT 96
--- NOTE | 2018-11-24 15:05 | CM.DPNOTE ---
Continued DCP efforts Wednesday 3 and 3: TC to Yuliet Mendoza at [facility] on Wednesday; she has left a message for [facility] admissions staff requesting they submit the request for authorization and single case agreement request (for addtl. funding) as needed. This needs to happen ADAM in order for [facility] to consider. Yuliet does not have a list of SNFs that accept bariatric patients. Spoke w/Leona at [facility] yesterday; she explained the auth request had already been submitted (?) but the person who faxed this request was not working and Leona needed to find the auth request and fax again, she would contact Yuliet at [facility] for addtl. information. TC from [facility], they do not have beds available but this [employer] encouraged to try again next week. TC to Niurka at [facility], requested they re-consider pt under single case agreement w/[facility]. Today, attempted approx 25 addtl. detention facilities in the [facility] area. Not one facility allowed this [employer] to fax pt's referral for review. Barriers: not contracted w/[facility], at capacity for either bariatric care and/or Medicaid beds. Goals of Care Conversation: Met w/pt and Dr Henry at bedside, Dr Henry eloquently discussed goals of care and quality of life (?) w/ pt. He was able to give yes and no answers, sometimes I don't know and I guess. Pt wants to continue current plan of care. This [employer] asks: If you need to return home eventually, is your home environment acceptable? Pt answers no but can not elaborate why and how we might work towards change. Pt admits there are too many questions and that he doesn't know how to answer them. It is likely pt is not capable of conceptualizing quality vs quantity (of life) and lacks insight needed to make these decisions. This [employer] supported pt to understand it's not a test and the team is hopeful there can be a solution found to make pt feel better, healthier and lead a meaningful life. Pt more alert than prior visits. Will attempt to keep pt updated on any changes in DCP options. Next Steps: Reviewed above w/RN Linsey; Linsey discussed option of MH eval from psychiatrist and especially since pt is more alert today; this [employer] hopeful this can be attempted and requested by Dr Henry Wednesday. Cognitive screen would be helpful. SNF search continues, hopeful [facility] continues to consider pt. JOSÉ LUIS Palmer
--- NOTE | 2018-11-24 15:21 | PC.NURSE ---
Wound vac dressings to bilateral posterior lower extremity wounds have been changed today at 12:00 by Chantal from [facility] wound clinic and this nurse. Seals are holding pressure and wounds are draining moderate amt of serosanguinous drainage.
[2018-11-24 17:06] VITALS: BP 122/61; PULSE 86; RESP 20; TEMP 36.2; O2SAT 92
--- NOTE | 2018-11-24 18:01 | PC.NURSE ---
Wound Nurse Consult Note Babatunde in bed. I instructed him we were going to change his wound vac dressing. He got up to void and then we had him lean over the bed to remove the wound vac dressings and wash his wounds and skin. The white foam worked much better, it was not painful when removed and did not bleed. Both posterior Stage III PI ulcers have beefy red granulation tissue. The wound edges are attached without maceration. There was 20cc of old serosanguenous drainage in the canister. Babatunde got back into bed after we cleaned the wounds and sarah-wound skin. Then we used the blaine sling for his legs and replaced the wound vac sponges and bridged them to his anterior thighs. We continued to use the Y connector to bridge to one wound vac pump. The Right posterior thigh wound I used two pieces of white foam, as I cut it to small. One piece of black foam was used as a bridge with a button black foam for under the trac pad. This was done on both legs. Vera and I did the dressings together and it took about 35 minutes. Babatunde cried a few times but was much more responsive and helpful these last two dressing changes.
[2018-11-24] MEDS: LACTOBACILLUS ACIDOPHILUS TABLET 1 EACH PO (18:20)
[2018-11-24] MEDS: predniSONE 5 MG TABLET PO (18:20)
[2018-11-24] MEDS: diphenhydrAMINE 25 MG TABLET PO (18:20)
[2018-11-24 21:05] VITALS: BP 118/68; PULSE 92; RESP 18; TEMP 36.3; O2SAT 92
[2018-11-24 23:56] VITALS: BP 119/56; PULSE 76; RESP 20; TEMP 36.8; O2SAT 96
[2018-11-25] VITALS (9 sets, daily range): BP systolic 119–129; BP diastolic 52–65; PULSE 75–90; RESP 17–20; TEMP 36.4–36.9; O2SAT 93–98
--- NOTE | 2018-11-25 00:39 | PC.NURSE ---
Addendum entered by Cheryl Phipps R.N. 11/25/18 01:36: Up to bathroom to void and then back to bed. Noted excoriated perineum/buttocks with bleeding. Wound vacs intact. Now complains of itching; requested/medicated with Benadryl. Original Note: Patient mostly sleeping but does arouse to voice and provides minimal conversation; mainly just answers questions asked. Affect is flat and seems apathetic. Breath sounds diminished but CTA with sat of 98%; uses oxygen at 2L/min per NC at night. Denies nausea. BT present and abdomen is soft. Refuses to reposition. Wound vacs to bilateral legs intact; no drainage in wound vac. Excoriation/moist skin in abdominal/groin folds noted. Dry skin bilateral LE and has thick, calloused skin on bilateral feet with some peeling noted. Refusing waffle boots or having heels floated. On bariatric pressure relieving bed. Denies pain. Fall risk score is moderate; patient does not get out of bed by himself and then is assisted with walker and 1 assist to BSC to void.
[2018-11-25] MEDS: diphenhydrAMINE 25 MG TABLET PO ×2 (01:35→21:35)
[2018-11-25] MEDS: METHADONE 10 MG TABLET 75 MG PO (09:19)
[2018-11-25] MEDS: FERROUS SULFATE 325 MG TABLET PO (09:20)
[2018-11-25] MEDS: OLANZapine 2.5 MG TABLET 15 MG PO (09:20)
[2018-11-25] MEDS: LACTOBACILLUS ACIDOPHILUS TABLET 1 EACH PO ×2 (09:20→17:33)
[2018-11-25] MEDS: ASCORBIC ACID 500 MG TABLET PO (09:20)
[2018-11-25] MEDS: GABAPENTIN 300 MG CAPSULE PO ×3 (09:20→21:34)
[2018-11-25] MEDS: DULOXETINE 30 MG CAPSULE PO (09:20)
[2018-11-25] MEDS: ENOXAPARIN 30 MG/0.3 ML SYRINGE SUBCUT ×2 (09:21→21:34)
[2018-11-25] MEDS: DOCUSATE 100 MG CAPSULE PO (09:21)
--- NOTE | 2018-11-25 16:13 | PC.NURSE ---
Wound/mobility: Appears sad, no visitors, limited eye contact. Did make a few comments about his life in general. Talked about how long we have known each other. SYou have taken care of me since I was a little kid. Pt does want to do things and says he will but when it comes to doing it says not now. Has been up to the commode and up in the room. Mobility is difficult due to the wound vacs and his general skin issues, he has generalized edema from below the pannus to the feet and buttocks and scrotum have sm multiple open areas. These do bleed easily when up and he required bed changes. Weight 12/12/2017 was 224kgs. Now weight is 197kgs. has lost 65 pounds. However a year ago he was more active and doing things with his girlfriend, smiled and more conversant. Now he is not, nor is he receiving visitors or phone calls. Dr. Henry notified of pt appearing more sad and his weight loss, poss lack of support from significant others or they may be unable to provide support. Support weight loss effort and enc mobility. Cont w/poc.
--- NOTE | 2018-11-25 16:34 | P.PN_ITS ---
Subjective Date Patient Seen: 11/25/18 Interval history: Babatunde Fitzgerald is a 38-year-old male with a past medical history significant for morbid obesity (BMI 80), asthma on chronic prednisone, obesity hypoventilation syndrome, RAJESH, chronic pain with methadone dependence, and chronic stage II decubitus pressure ulcerations of scrotum and posterior thighs who presented for increased pain and drainage of stage III decubitus pressure ulcerations of posterior thighs. The patient is resting in bed comfortably. He has no complaints overall other than pain related to his wounds. Continuing wound VAC for stage III decubitus ulcers on bilateral posterior thighs. I was able to talk with wound care nurse and physician yesterday evening who report that his wounds are healing well. He denies headache, shortness of breath, chest pain, abdominal pain, nausea, vomiting, fever, chills, dysuria, diarrhea or constipation. He is voiding and eliminating without difficulty. He is up ambulating very minimally with full assistance. He has been stable for hospital discharge except we are awaiting insurance authorization for long-term facility or LTAC. Exam Vital Signs (past 8 hours): - 11/25/18 12:00 11/25/18 15:31 Temperature 97.9 F 98.4 F Pulse Rate 82 75 Respiratory Rate 18 20 Blood Pressure 126/57 L 121/65 Pulse Oximetry 95 94 Fraction of Inspired Oxygen 24 Oxygen Delivery Method Room Air Oxygen Flow Rate 1 Narrative Exam Narrative: General: Young morbidly obese gentleman lying in bed and in no acute distress, well-developed, well-nourished, alert but nods off easily during mid conversation. HEENT: Normocephalic, atraumatic. External ears without defect. Pupils equal, round, and reactive to light. Anicteric sclerae, moist conjunctivae, and no lid lag. Several excoriations on face. Neck: Supple with full range of motion. No lymphadenopathy or thyromegaly. Cardiovascular: Heart sounds distant but appear regular rate and rhythm without murmurs, rubs, or gallops appreciated. Pulmonary: Clear to auscultation bilaterally without crackles, wheezes, or rhonchi. Normal respiratory effort with no use of accessory muscles. Abdomen: Soft, obese, bowel sounds present, nontender, nondistended. No hepatosplenomegaly or masses appreciated. Extremities: No clubbing or cyanosis. Brawny edema to knees bilaterally. Skin: Normal temperature, turgor, and texture; 2 stage III pressure ulcers on scrotum. 2 stage III pressure ulcers on posterior thighs bilaterally with wound VAC in place. Neurological: Cranial nerves grossly intact. Psychiatric: Depressed mood and flat affect. Alert but nods off easily. Poor insight into disease process. 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 Seems have late child/early teen mentality. Objective Labs Result Diagrams: 11/19/18 05:32 11/19/18 05:32 Assessment & Plan Assessment & Plan narrative: Babatunde Fitzgerald is a 38-year-old male with a past medical history significant for morbid obesity (BMI 80), asthma on chronic prednisone, obesity hypoventilation syndrome, RAJESH, chronic pain with methadone dependence, and chronic stage II decubitus pressure ulcerations of scrotum and posterior thighs who presented for increased pain and drainage of stage II decubitus pressure ulcerations of posterior thighs. 1. Acute on chronic stage III decubitus pressure ulcerations of posterior thighs, present on admission. Active. -With polymicrobial infection versus colonization. -Post-debridement by General Surgery over 3 weeks ago. Patient's wounds initially looked infected upon admission now status post debridement are not infected. Completed 10 day course of Augmentin. -Consulted wound care and we appreciate their time and care of the patient. Wound VAC placed by wound care due to significant serosanguineous drainage and the need for multiple supplies due to his obesity making it quite complex wound management. -Due to patient's noncompliance with medical management due to no support and obesity, we are awaiting placement to SNF ([facility] and [facility] requesting assistance from his insurance. 2. Anemia of chronic disease , present on admission. Stable. -Stable, very chronic. -Hemoglobin and hematocrit stable. No overt signs of bleeding. Pressure ulcerations are draining serosanguinous as above. -Continue on Iron and vitamin-C supplementation. 3. Chronic pain with opiate dependence , present on admission. Stable. -Currently on methadone treatment (opiates in the past) -Continue to taper Methadone... on 75mg PO Daily 4. Depression and anxiety, chronic, present on admission. Stable. -Continue home Duloxetine and Olanzapine 15 mg daily not 20 mg. Not on lorazepam as an outpatient. -Do not believe he has necessity for acute psychiatric evaluation while inpatient although he is significantly depressed. Continue to follow up with psychiatrist outpatient. 5. Pulmonary hypertension and right sided CHF, chronic and secondary to morbid obesity, OHS, RAJESH, and asthma, present on admission. Stable. -Echocardiogram demonstrated right ventricle is moderate to severely dilated with moderately reduced right ventricular systolic function with severe biatrial enlargement. -Tapered prednisone to 5 mg daily as of 11/22/2018, he had been on prednisone 10 mg daily with instructions for 5 mg taper weekly per PCP Dr. Hernández. -Continue albuterol as needed, and CPAP per RT. Stop Advair due to repeated refusals. 6. Morbid obesity, chronic, present on admission. Stable. -BMI 80 on admission. BMI down to 70.5 since admission. -Mobilize out of bed as much as he can tolerate. Continue physical therapy and occupational therapy as much as possible. -Limit snacks to 2 per day and follow a heart healthy diet. NO CHIPS, JUICE, POPSICLES. -Patient will benefit from slow taper off prednisone and decrease methadone to lowest possible dose to treat pain. 7. Post-operative hypoxemia, not present on admission. Resolved. -Due to prolonged sedation, and chronic issues including RAJESH, OHS, and asthma as well. -Intermittently using oxygen, will continue as needed. 8. 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 Stable. -QTc 476 ms. Patient is on methadone, olanzapine, and duloxetine. -Avoid other QTc prolonging agents such as Zofran, etc. if possible. Disposition: Awaiting LTAC or SNF placement which is proving to be very difficult and working with the patients insurance provider. Continue to taper prednisone and methadone as tolerated. Quality VTE Deep Vein Thrombosis/Pulmonary Embolism Present on Admission: No
[2018-11-25] MEDS: predniSONE 5 MG TABLET PO (17:33)
[2018-11-26] MEDS: ACETAMINOPHEN 325 MG TABLET 650 MG PO (00:21)
[2018-11-26 04:05] VITALS: BP 113/58; PULSE 71; RESP 18; TEMP 36.8; O2SAT 98
[2018-11-26 05:32] LABS: Add Manual Diff / Slide Review NO; Basophils Absolute Auto 0 /uL (0-100); Basophils Percent Auto 0.2 % (0-2); Eosinophils Absolute Auto 200 /uL (0-450); Eosinophils Percent Auto 4.9 % (2-4); Hemoglobin 8.2 g/dL (13.5-17.5); Lymphocytes Absolute Auto 1400 /uL (1100-4500); Lymphocytes Percent Auto 37.2 % (25-40); Mean Corpuscular HGB Conc 30.3 % (30-36); Mean Corpuscular Hemoglobin 25.4 PG (26-34); Mean Corpuscular Volume 83.8 fL (80-100); Monocytes Absolute Auto 400 /uL (0-900); Monocytes Percent Auto 11.2 % (3-14); Neutrophils Absolute Auto 1700 /uL (1500-7000); Neutrophils Percent Auto 46.5 % (50-75); Platelet Count 113 X10^3/uL (150-400); Red Blood Cell Count 3.23 X10^6/uL (4.5-5.9); Red Cell Distribution Width 18.9 % (11.6-14.8); White Blood Cell Count 3.8 X10^3/uL (4.5-11.0)
[2018-11-26 05:44] LABS: BUN Creatinine Ratio 11.7 (6-22); Blood Urea Nitrogen 7 mg/dL (9-20); Calcium 8.1 mg/dL (8.4-10.2); Carbon Dioxide 36 mmol/L (22-32); Chloride 98 mmol/L (98-107); Estimated Glomerular Filt Rate > 60.0 mL/min (>60); Glucose 81 mg/dL (70-100); HEMOLYSIS < 15 (0-50); Magnesium 2.1 mg/dL (1.6-2.3); Potassium 3.9 mmol/L (3.4-5.1); Sodium 138 mmol/L (137-145)
[2018-11-26 07:00] VITALS: O2SAT 95
[2018-11-26 08:48] VITALS: BP 126/69; PULSE 85; RESP 22; O2SAT 92
[2018-11-26 09:00] VITALS: PULSE 91; RESP 18; O2SAT 98
[2018-11-26 09:15] VITALS: O2SAT 95
[2018-11-26] MEDS: METHADONE 10 MG TABLET 75 MG PO (09:51)
[2018-11-26] MEDS: LACTOBACILLUS ACIDOPHILUS TABLET 1 EACH PO (09:53)
[2018-11-26] MEDS: FERROUS SULFATE 325 MG TABLET PO (09:56)
[2018-11-26] MEDS: ENOXAPARIN 30 MG/0.3 ML SYRINGE SUBCUT (09:57)
[2018-11-26] MEDS: GABAPENTIN 300 MG CAPSULE PO (09:57)
[2018-11-26] MEDS: OLANZapine 2.5 MG TABLET 15 MG PO (09:57)
[2018-11-26] MEDS: DULOXETINE 30 MG CAPSULE PO (09:58)
[2018-11-26] MEDS: ASCORBIC ACID 500 MG TABLET PO (09:58)
[2018-11-26] MEDS: diphenhydrAMINE 25 MG TABLET PO (10:38)
--- NOTE | 2018-11-26 10:52 | P.DS_ITS ---
History of Present Illness Date Patient Seen: 11/03/18 Chief complaint: Sores on legs Narrative: Written by Dr. Cobos: Patient is a 38-year-old male with morbid obesity well known to the hospitalist team who was in his usual state of health until yesterday. Patient has chronic ulcerations on his perineum sacrum and scrotal area. He has known stage II decubitus ulcer. He has been in the hospital multiple times for treatment of the ulcerations. Patient was to follow up with wound care tomorrow. States yesterday he got up and developed bleeding from the ulcers. He presented to the emergency department for evaluation. It was noted that he had had fever and significant breakdown of his ulcers. He was seen in the emergency department by the wound care clinic. They recommended the patient be taken to the operating room for definitive debridement. Was seen by Dr. Pratt who took him to the operating room for debridement of the necrotic ulceration. The patient has been seen postoperatively. He complains of pain. He denies any shortness of breath. He reports fever yesterday but none today. He has no nausea vomiting or diarrhea. He denies any dysuria or hematuria. Patient does have chronic pruritus. He is scratching at his wounds at this time. He has significant lower extremity edema. He is admitted to the hospital at this time for definitive treatment. Discharge Providers Date of admission: 11/03/18 15:37 Discharge Date: 11/26/18 Primary care physician: Rama Hernández MD Consults: 11/03/18 18:32 Consult to Discharge Planning Routine Comment: 11/07/18 09:41 Consult to Occupational Therapy Evaluate & Treat Comment: Physician Instructions: Evaluate and treat Consult to Physical Therapy Evaluate & Treat Comment: Physician Instructions: Evaluate and Treat Discharge provider: Paige Henry DO Summary Discharge Diagnosis: 1. Acute on chronic now stage III decubitus pressure ulcerations of posterior thighs, status post surgical debridement, present on admission. Active. 2. Anemia of chronic disease , present on admission. Stable. 3. Chronic pain with opiate dependence , present on admission. Stable. 4. Depression and anxiety, chronic, present on admission. Stable. 5. Pulmonary hypertension and right sided CHF, chronic and secondary to morbid obesity, OHS, RAJESH, and asthma, present on admission. Stable. 6. Morbid obesity, chronic, present on admission. Stable. 7. Post-operative hypoxemia, not present on admission. Resolved. 8. 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 Stable. Hospital Course: Babatunde Fitzgerald is a 38-year-old male with a past medical history significant for morbid obesity (BMI 80), asthma on chronic prednisone, obesity hypoventilation syndrome, RAJESH, chronic pain with methadone dependence, and chronic stage II decubitus pressure ulcerations of scrotum and posterior thighs who presented for increased pain and drainage of stage II decubitus pressure ulcerations of posterior thighs. 1. Acute on chronic now stage III decubitus pressure ulcerations of posterior thighs, status post surgical debridement, present on admission. Active. -With polymicrobial infection versus colonization. -Post-debridement by General Surgery over 3 weeks ago. Patient's wounds in itially looked infected upon admission now status post debridement are not infected. Completed 10 day course of Augmentin. -Consulted wound care and we appreciate their time and care of the patient. To clarify patient's wounds were initially stage II pressure ulcerations prior to admission but advanced to stage III upon admission now status post surgical debridement. Wound VAC placed by wound care due to significant serosanguineous drainage and the need for multiple supplies due to his obesity making it quite complex wound management. 2. Anemia of chronic disease , present on admission. Stable. -Stable, very chronic. -Hemoglobin and hematocrit stable. No overt signs of bleeding. Pressure ulcerations are draining serosanguinous as above. -Continued on Iron and vitamin-C supplementation. 3. Chronic pain with opiate dependence , present on admission. Stable. -Currently on methadone treatment (opiates in the past). -Continued to taper Methadone now on 75mg PO daily. 4. Depression and anxiety, chronic, present on admission. Stable. -Continued home Duloxetine and Olanzapine 15 mg daily. Not on lorazepam as an outpatient. -Do not believe he has necessity for acute psychiatric evaluation while inpatient although he is significantly depressed. Continue to follow up with psychiatrist outpatient. 5. Pulmonary hypertension and right sided CHF, chronic and secondary to morbid obesity, OHS, RAJESH, and asthma, present on admission. Stable. -Echocardiogram demonstrated right ventricle is moderate to severely dilated with moderately reduced right ventricular systolic function with severe biatrial enlargement. -Tapered prednisone to 5 mg daily as of 11/22/2018, he had been on prednisone 10 mg twice daily with instructions for 5 mg taper weekly per PCP Dr. Hernández. -Continued albuterol as needed, and CPAP per RT. Stop Advair due to repeated refusals. 6. Morbid obesity, chronic, present on admission. Stable. -BMI 80 on admission. BMI down to 70.5 since admission. -Mobilized out of bed as much as he can tolerate. Continued physical therapy and occupational therapy as much as possible. -Limited snacks to 2 per day and follow a heart healthy diet. NO CHIPS, JUICE, POPSICLES. -Patient will benefit from slow taper off prednisone and decreasing methadone to lowest possible dose to treat pain. 7. Post-operative hypoxemia, not present on admission. Resolved. -Due to prolonged sedation, and chronic issues including RAJESH, OHS, and asthma as well. -Intermittently using oxygen, will continue as needed. 8. 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 Stable. -QTc 476 ms. Patient is on methadone, olanzapine, and duloxetine. -Avoided other QTc prolonging agents such as Zofran, etc. if possible. Exam Vital Signs (past 8 hours): - 11/26/18 04:05 11/26/18 08:48 11/26/18 09:00 Temperature 98.2 F Pulse Rate 71 85 91 H Respiratory Rate 18 22 18 Blood Pressure 113/58 L 126/69 Pulse Oximetry 98 92 98 11/26/18 09:15 Temperature Pulse Rate Respiratory Rate Blood Pressure Pulse Oximetry 95 Fraction of Inspired Oxygen 21 Oxygen Delivery Method Room Air Oxygen Flow Rate 0 Narrative Exam Narrative: General: Young morbidly obese gentleman lying in bed and in no acute distress, well-developed, well-nourished, alert but nods off easily during mid conversation. HEENT: Normocephalic, atraumatic. External ears without defect. Pupils equal, round, and reactive to light. Anicteric sclerae, moist conjunctivae, and no lid lag. Several excoriations on face. Neck: Supple with full range of motion. No lymphadenopathy or thyromegaly. Cardiovascular: Heart sounds distant but appear regular rate and rhythm without murmurs, rubs, or gallops appreciated. Pulmonary: Clear to auscultation bilaterally without crackles, wheezes, or rhonchi. Normal respiratory effort with no use of accessory muscles. Abdomen: Soft, obese, bowel sounds present, nontender, nondistended. No hepatosplenomegaly or masses appreciated. Extremities: No clubbing or cyanosis. Brawny edema to knees bilaterally. Skin: Normal temperature, turgor, and texture; 2 stage II pressure ulcers on scrotum. 2 stage III pressure ulcers on posterior thighs bilaterally with wound VAC in place. Neurological: Cranial nerves grossly intact. Psychiatric: Depressed mood and flat affect. Alert but nods off easily. Poor insight into disease process. Mild cognitive impairment with short-term memory recall deficit likely related to methadone use and possibly developmental delay with late child/early teen mentality. Objective Labs Result Diagrams: 11/26/18 04:59 11/26/18 04:59 Labs: Laboratory Results - last 24 hr 11/26/18 11/26/18 04:59 04:59 WBC 3.8 L RBC 3.23 L Hgb 8.2 L Hct 27.0 L MCV 83.8 MCH 25.4 L MCHC 30.3 RDW 18.9 H Plt Count 113 L Neut % (Auto) 46.5 L Lymph % (Auto) 37.2 [place] % (Auto) 11.2 Eos % (Auto) 4.9 H Baso % (Auto) 0.2 Neut # (Auto) 1700 Lymph # (Auto) 1400 [place] # (Auto) 400 Eos # (Auto) 200 Baso # (Auto) 0 Sodium 138 Potassium 3.9 Chloride 98 Carbon Dioxide 36 H BUN 7 L Creatinine 0.60 L Estimated GFR > 60.0 BUN/Creatinine Ratio 11.7 Glucose 81 Calcium 8.1 L Magnesium 2.1 Discharge Plan Discharge Plan Patient Disposition: SNF Transfer to: [facility] Transportation: Ambulance I certify the postop hospital correction care is medically necessary on a continuing basis for any conditions for which he/ she received care during this hospitalization.: Yes The receiving facility has agreed to accept transfer and provide medical treatment.: Yes Discharge Med Rec/Prescriptions Prescriptions: New acetaminophen 325 mg Tablet 650 mg PO Q6HR PRN (Reason: Pain, Mild) Qty: 30 RF: 0 ascorbic acid (vitamin C) [Vitamin C] 500 mg Tablet 500 mg PO DAILY Qty: 30 RF: 0 ferrous sulfate 325 mg (65 mg iron) Tablet 325 mg PO DAILY Qty: 30 RF: 0 diphenhydramine HCl [Allergy (diphenhydramine)] 25 mg Tablet 25 mg PO Q6HR PRN (Reason: Itching) Qty: 30 RF: 0 docusate sodium 100 mg Capsule 100 mg PO BID Qty: 60 RF: 0 nystatin [Nystop] 100,000 unit/gram Powder 1 applic topical TID PRN (Reason: abd folds/excoriation) Qty: 1 RF: 0 Continued Advair Diskus 500 MCG/50 MCG blister with device 1 puff INH BID Qty: 2 RF: 5 gabapentin [Neurontin] 300 mg Capsule 300 mg PO TID Qty: 180 RF: 0 duloxetine [Cymbalta] 30 mg Capsule,Delayed Release(Dr/Ec) 30 mg PO DAILY Qty: 90 RF: 0 albuterol sulfate 90 mcg/actuation HFA aerosol inhaler 2 puff INHALATION Q4-6H PRN (Reason: shortness of breath or wheezing) Qty: 18 RF: 0 albuterol sulfate 2.5 MG/3 ML solution for nebulization 3 ml INH Q4HP PRN (Reason: Wheezing) Qty: 360 RF: 0 Changed prednisone 10 mg tablet 5 mg PO 1700 Qty: 0 RF: 0 methadone 10 MG tablet 75 mg PO DAILY Qty: 0 RF: 0 olanzapine 20 mg tablet 15 mg PO DAILY Qty: 10 RF: 0 Discontinued lorazepam [Ativan] 1 mg tablet 1 mg PO BID-TID PRN (Reason: anxiety) Qty: 10 RF: 0 hydrocodone-acetaminophen [Custer] 7.5-325 mg tablet 1 tab PO Q4-6H PRN (Reason: pain) Qty: 20 RF: 0 Follow up/Referrals: Gabe Meraz PA-C [Non-Staff] - Discharge Health Status Brief summary of current health status: Patient is morbidly obese with posterior scrotal wounds and stage III decubitus ulcers of posteriorthigh wounds bilaterally with wound VAC in place. The patient requires significant care with wound management and physical therapy several times daily to build endurance and strength. Multidrug resistant organism: No MDRO [facility] Rehab type: Physical therapy and Occupational therapy Discharge Data Primary Care Provider: Rama Hernández Attending Provider: Niurka Cobos Admit Date/Time: 11/03/18 15:37 Quality VTE Deep Vein Thrombosis/Pulmonary Embolism Present on Admission: No
--- NOTE | 2018-11-26 13:37 | PM.CHAP ---
Pt. open to a short visit on 11/25 during which he requested a word search magazine to help fight boredom. Dropped of word search today, but pt did not wake enough to have conversation. Will follow up if pt remains at . Ian Villar [phone]
--- NOTE | 2018-11-26 14:09 | PC.NURSE ---
Addendum entered by Kia Wong R.N. 11/26/18 15:03: Ruth Ann. scrotal duoderm drsg. also changed today. Original Note: Babatunde's ruth ann. LE drsgs. were due to be changed today. When he got up to void we had him lean over the bed to remove the wound vac dressings and wash his wounds using warm soapy water and skin and pat dry. Removal of old drsgs. was not painful when removed and did not bleed. Both posterior Stage III PI ulcers have beefy red granulation tissue. The wound edges are attached without maceration. There was 100mL of old serosanguenous drainage in the canister. Babatunde got back into bed after we cleaned the wounds and sarah-wound skin. We then used the blaine sling for assistance elevating his legs and replaced the wound vac sponges and bridged them to his anterior thighs. We continued to use the Y connector to connect to the one wound vac pump. Ruth Ann. posterior thigh wounds used white foam, cut to fit. One piece of black foam was used as a bridge with a button black foam for under the trac pad. This was done on both legs. Both leg dressings were marked with today's date. Linsey White RN, and I did the dressings together. It took about 45 minutes. Babatunde cried a few times but was able to calm down after verbal encouragement and distractions such as allowing him to push the buttons for the blaine lift.
--- NOTE | 2018-11-26 15:04 | PC.NURSE ---
Report given to Nicolette at [facility]. [place]. Anticipate transfer at 1600, pending d/c orders from Dr. Henry.
--- NOTE | 2018-11-26 16:56 | CM.DPC ---
DCP: continued: Dr. Henry has just called into office to request that the d/c summary be faxed to [facility] as she has just finished it. KAREEM/Froylan is gone for the day but she worked throughout the day with [facility] to facilitate this d/c and pt left by ambulance at 1600. Will fax now.
--- NOTE | 2018-11-26 18:01 | PC.NURSE ---
Discharge Note Pt was discharge to ambulance RN and transporters. Report given to patient transport officer and [facility] RN by day shift nurse. All pt's belongings packed and taken by transporters. Pt put on 2L NC before transfer of pt to stretcher d/t SOB w/ exertion. Pt helped w/ pt transfer, discharge packet given to RN/EMS, no further questions. Pt VSS, and agreeable with transfer plan.
--- NOTE | 2018-11-27 16:58 | CM.DPNOTE ---
AFTER D/C NOTE: Received phone call from [facility] re: medication orders. Admit RN called and reports that their biomedical engineer not agreeable to write script for methadone 75mg. Notified [facility] that patient has been on methadone at [facility] for chronic pain. Also notified them that this information has been in patient's records and never not known by previous [facility] staff[facility] have been following and reviewing case closely since November 22, 2018. [facility] Waiter would like to send patient back to [facility] Spoke with Dr. Henry and she is in agreement to call [facility] Captain Waiter re: above issues with methadone prescription. After several attempts to reach Captain Waiter, Dr. Henry able to communicate with him that methadone for chronic pain and that this is patient's baseline dose. Captain Waiter now in agreement to oversee methadone for patient. In addition, to the above [facility] requesting that [facility] call [facility] to verify prescription for methadone and include that it is for chronic pain. Notified Dr. Henry and she called [facility] and spoke with pharmacist. P: [facility] now agreeable to keep patient after methadone clarification with Captain Waiter at [facility] and Hospitalist. Approximately 90 minutes spent today coordinating the above. JOSÉ LUIS Noriega
--- NOTE | 2018-12-01 08:13 | CM.DPNOTE ---
Late Entry: Continued work Wednesday11.25.18 and Wednesday11.26.18 on DCP: TC from Leona at [facility] Wednesday afternoon; Surya has approved all bariatric DME, wound vac etc and pt able accepted for admission Wednesday11.26.18 when an admission nurse is available to assist in this admission process. Leona explained that DME is ordered and delivered the day pt admits, so DME will arrive Wednesday, [facility]. Alerted Dr Henry of this and requested she plan for pt's DC to SNF Wednesday. Wednesday, 11.26.18, TC placed to Margoth at [facility]. She initially requested wound measurements to aid in the wound vac order then told this GEAR ROOM KEEPER later in the morning that all of the equipment had already been secured and delivered and no additional clinical information needed. Reviewed DCP w/pt, RN and Dr Henry. All aware and agreeable to DC to [facility] Wednesday and bariatric ambulance arranged through Ambulance for 1630 p/u, Margoth at [facility] made aware. Pt, RN and Dr Henry made aware of transportation time. BLS medical necessity form completed and signed by Dr Henry. PASSR also completed for [facility] and signed by Dr Henry. Dr Henry completed med list at approx 1600, signed.. med list, DC summary draft, PASRR and other completed DC ppk faxed to [facility]. TC placed to [facility] at approx 1600 to alert that faxed orders were on the way, front desk associate said [facility] had left but updated fax number provided to this GEAR ROOM KEEPER for the fax. Discussed this DC coordination w/ KAILYN Adam throughout the day. KAILYN Adam and KAILYN Stiles completed wound dressing change Wednesday morning. KAILYN Adam gave report to [facility]. She asked this GEAR ROOM KEEPER if wound vac could be taken off pt before transport. Margoth at [facility] confirmed that wound vac was prepared for pt's arrival at [facility], wound vac at removed before DC. Ambulance arrived at 1630 as scheduled and approx 5-6 professionals (EMS/RNs/BEAN PICKER MACHINE OPERATOR) were present in pt's rm as this GEAR ROOM KEEPER left for the day Wednesday11.26.18. P: DC to [facility] via bariatric ambulance Wednesday11.26.18. JOSÉ LUIS Palmer
== END 2018-11-26 16:30 | DRG 380 ==
LOC: ED 15:33 → AC 15:39
PROVIDERS: Family Medicine; Internal Medicine; Nurse Practitioner Gerontology; Surgery; Admitting Provider Internal Medicine; Emergency Provider Internal Medicine; PCP Family Medicine; Visit Provider Internal Medicine
PROC: 0JBM0ZZ Excision of Left Upper Leg Subcutaneous Tissue and Fascia, Open Approach (ICD-10-PCS; principal; 2018-11-03 15:30)
DX: L89.323 Pressure ulcer of left buttock, stage 3 (principal); L89.313 Pressure ulcer of right buttock, stage 3; I96 Gangrene, not elsewhere classified; F41.1 Generalized anxiety disorder; J45.909 Unspecified asthma, uncomplicated; E66.01 Morbid (severe) obesity due to excess calories; Z68.44 Body mass index [BMI] 60.0-69.9, adult; L89.892 Pressure ulcer of other site, stage 2; R09.02 Hypoxemia; F11.20 Opioid dependence, uncomplicated; I45.81 Long QT syndrome
CPT/HCPCS: 11042; 11045; 36415; 80048; 80053; 82962; 83036; 83605; 83735; 84145; 85025; 87070; 87075; 87077; 87147; 87186; 87205; 93005; 93010; 93306; 94640; 94760; 94762; 97110; 97116; 97163; 97166; 97530; 97535; 99221; 99281; 99283; J1650; J2543; J2704; J3010; J7613

== ENCOUNTER 2019-01-11 20:12 | Emergency (ER) | payer OTHER, MEDICAID, SELFPAY ==
[2018-11-03 18:06] VITALS: BMI 69.3
[2019-01-11 20:10] VITALS: BP 133/63; PULSE 122; RESP 22; TEMP 36.8; O2SAT 92
--- NOTE | 2019-01-11 20:24 | DI.RAD.S_ITS ---
PROCEDURE: XR CHEST 1V INDICATIONS: athma, productive cough TECHNIQUE: One view of the chest was acquired. COMPARISON: [facility], CR, XR CHEST 1V, 07/05/2018, 12:39. [facility], CR, XR CHEST 1V, 08/05/2018, 10:14. [facility], CR, XR CHEST 1V, 10/29/2018, 13:34. FINDINGS: Surgical changes and devices: None. Lungs and pleura: Patchy ill-defined perihilar and lower lobe opacities although grossly unchanged and may be scarring/atelectasis. No definite new focal consolidation No pleural effusions or pneumothorax. Mediastinum: Mediastinal contours appear normal. Heart size is normal. Bones and chest wall: No suspicious bony lesions. Overlying soft tissues appear unremarkable. IMPRESSION: Scattered scarring/atelectasis. No definite new focal consolidation. The appearance may be in part due to reactive airways disease given airway thickening. Dictated by: Guillaume Greco M.D. on 01/11/2019 at 21:56 Approved by: Guillaume Greco M.D. on 01/11/2019 at 21:58
[2019-01-11] MEDS: ALBUTEROL 2.5 MG/3 ML NEB (ADULT) INH (20:32)
[2019-01-11] MEDS: OLANZapine ODT 10 MG TAB PO ×2 (20:33→21:01)
--- NOTE | 2019-01-11 21:10 | ED_ITS ---
HPI - Anxiety <Concepcion Worthy, BIKE MECHANIC-BC - Last Filed: 01/11/19 22:14> General Chief Complaint: Anxiety Stated Complaint: Anxiety Time Seen by Provider: 01/11/19 20:12 Source: patient and EMS Mode of arrival: EMS Limitations: no limitations History of Present Illness HPI narrative: The patient is a 38-year-old male well known to this department with history of anxiety and asthma. He is a current everyday smoker and presents by EMS today for chief complaint of anxiety. He states he has been out of his Zyprexa for 3 days at this point time. He states his anxiety gets worse that of his medications. He states he was recently admitted at [facility] for a asthma exacerbation last week. When he presents today he does complain of a productive cough, but denies any significant shortness of breath or chest pain. he states he has not taken anything to help with his anxiety. he states he is attending his wound care appointments, and that he has one scheduled on . He presents today with his only complaint being anxiety. Related Data Previous Rx's Medication Instructions Recorded Advair Diskus 1 puff INH BID #2 inh 04/28/17 albuterol sulfate 2 puff INHALATION Q4-6H PRN #18 07/11/18 gram albuterol sulfate 3 ml INH Q4HP PRN #360 ml 07/27/18 duloxetine [Cymbalta] 30 mg PO DAILY #90 cap 09/15/18 gabapentin [Neurontin] 300 mg PO TID #180 cap 09/15/18 acetaminophen 650 mg PO Q6HR PRN #30 tab 11/26/18 ascorbic acid (vitamin C) [Vitamin 500 mg PO DAILY #30 tab 11/26/18 C] diphenhydramine HCl [Allergy 25 mg PO Q6HR PRN #30 tab 11/26/18 (diphenhydramine)] docusate sodium 100 mg PO BID #60 cap 11/26/18 ferrous sulfate 325 mg PO DAILY #30 tab 11/26/18 methadone 75 mg PO DAILY #56 tab 11/26/18 nystatin [Nystop] 1 applic TOPICAL TID PRN #1 pkg 11/26/18 olanzapine 15 mg PO DAILY #10 tab 11/26/18 prednisone 5 mg PO 1700 #0 tab 11/26/18 olanzapine 15 mg PO DAILY #10 tab 01/11/19 Allergies Allergy/AdvReac Type Severity Reaction Status Date / Time NSAIDS (Non-Steroidal Allergy Unknown ASTHMA Verified 11/03/18 13:07 Anti-Inflamma FLARE UPS [NSAIDS (NON-STEROIDAL ANTI-INFLAMMA] ibuprofen AdvReac Mild nausea, GI Verified 11/03/18 13:07 upset Review of Systems <ANTONETTE Messer - Last Filed: 01/11/19 22:14> Review of Systems GENERAL: Denies chills, fatigue, malaise, fever, sweats. HEENT: Denies sinus pain, ear pain, sore throat, difficulty swallowing, dizziness. RESPIRATORY: See HPI CARDIOVASCULAR: Denies chest pain, palpitations, orthopnea, edema, GASTROINTESTINAL: Denies nausea, vomiting, abdominal pain, diarrhea, constipation, melena. : Denies dysuria, frequency, incontinence, hematuria, urinary retention. MUSCULOSKELETAL: denies weakness, joint pain, or bony pain SKIN: Denies rash, skin lesions, or other NEUROLOGIC: Denies weakness, headache, numbness, change in speech, confusion, seizures, incoordination. PSYCHIATRIC: See HPI 12 point review of systems is negative except for those stated above PFSH <ANTONETTE Messer - Last Filed: 01/11/19 22:14> Medical History Anxiety (Acute) Asthma (Acute) Chronic skin ulcer (Chronic) Methadone use disorder, mild, in controlled environment (Chronic) Morbid obesity (Chronic) Surgical History H/O vertebral fracture repair (Chronic) History of hip surgery (Chronic) Family History Mother Diabetes mellitus Father No problems noted. Social History household members: significant other Smoking Status: Never smoker Family History Mother Diabetes mellitus Father No problems noted. Social History household members: significant other Smoking Status: Never smoker Exam <ROLAN MesserBC - Last Filed: 01/11/19 22:14> Narrative Exam Narrative: GENERAL: Morbidly Obese patient is sitting in wheelchair. Teary. Anxious. HEAD: Atraumatic. Normocephalic. No temporal or scalp tenderness. EYES: Pupils equal round and reactive. Extraocular motions intact. No scleral icterus. No injection or drainage. ENT: Nose without bleeding, purulent drainage or septal hematoma. Throat without erythema, tonsillar hypertrophy or exudate. Uvula midline. Airway patent. CARDIOVASCULAR: Regular rate and rhythm RESPIRATORY: Bilateral expiratory wheezes to auscultation. Breath sounds equal bilaterally. No rales, or rhonchi. No stridor. No accessory muscle use. GASTROINTESTINAL: Abdomen obese, non-tender, nondistended. No hepato- splenomegaly, or palpable masses. No guarding. NEURO: AOx3. Initial Vital Signs Initial Vital Signs: Vital Signs Temperature 98.3 F 01/11/19 20:10 Pulse Rate 122 H 01/11/19 20:10 Respiratory Rate 22 01/11/19 20:10 Blood Pressure 133/63 01/11/19 20:10 Pulse Oximetry 92 01/11/19 20:10 <Rene Soria DO - Last Filed: 01/11/19 22:21> Initial Vital Signs Initial Vital Signs: Vital Signs Temperature 98.3 F 01/11/19 20:10 Pulse Rate 122 H 01/11/19 20:10 Respiratory Rate 22 01/11/19 20:10 Blood Pressure 133/63 01/11/19 20:10 Pulse Oximetry 92 01/11/19 20:10 Course <ANTONETTE Messer - Last Filed: 01/11/19 22:14> Orders Ordered: ED Orders 01/11/19 20:24 XR chest 1V Stat RT Consult Eval and Treat Now Discontinued Medications Albuterol (Ventolin) 2.5 mg INH NOW ONE Stop: 01/11/19 20:29 Last Admin: 01/11/19 20:32 Dose: 2.5 mg Lorazepam (Ativan) 1 mg PO NOW ONE Stop: 01/11/19 21:41 Last Admin: 01/11/19 21:52 Dose: 1 mg Olanzapine (Zyprexa Zydis) 10 mg PO NOW ONE Stop: 01/11/19 20:28 Last Admin: 01/11/19 20:33 Dose: 10 mg Olanzapine (Zyprexa Zydis) 10 mg PO NOW ONE Stop: 01/11/19 20:51 Last Admin: 01/11/19 21:01 Dose: 10 mg Vital Signs - 8 hr 01/11/19 20:10 01/11/19 21:30 Temperature 98.3 F Pulse Rate 122 H Respiratory Rate 22 Blood Pressure 133/63 Blood Pressure [Left Wrist] 125/52 L Pulse Oximetry 92 92 <Rene Soria DO - Last Filed: 01/11/19 22:21> Orders Ordered: ED Orders 01/11/19 20:24 XR chest 1V Stat RT Consult Eval and Treat Now Discontinued Medications Albuterol (Ventolin) 2.5 mg INH NOW ONE Stop: 01/11/19 20:29 Last Admin: 01/11/19 20:32 Dose: 2.5 mg Lorazepam (Ativan) 1 mg PO NOW ONE Stop: 01/11/19 21:41 Last Admin: 01/11/19 21:52 Dose: 1 mg Olanzapine (Zyprexa Zydis) 10 mg PO NOW ONE Stop: 01/11/19 20:28 Last Admin: 01/11/19 20:33 Dose: 10 mg Olanzapine (Zyprexa Zydis) 10 mg PO NOW ONE Stop: 01/11/19 20:51 Last Admin: 01/11/19 21:01 Dose: 10 mg Vital Signs - 8 hr 01/11/19 20:10 01/11/19 21:30 Temperature 98.3 F Pulse Rate 122 H Respiratory Rate 22 Blood Pressure 133/63 Blood Pressure [Left Wrist] 125/52 L Pulse Oximetry 92 92 [facility] - Anxiety <ANTONETTE Messer - Last Filed: 01/11/19 22:14> Imaging Data Chest x-ray: Radiologist's impression: Scattered atelectasis/scarring. No definite new focal consolidation. Appearance may be in part due to reactive airways disease given airway thickening. MDM Narrative Medical decision making narrative: The patient is able Juwan obese 38-year-old male who presents with a chief complaint of anxiety. he is well known to this department for this complaint. He has run out of his daily Zyprexa. Thus he was given a dose of Zyprexa in the emergency department as well as 1 mg of Ativan with good results. He was treated by respiratory therapist given his chronic asthma and chest x-ray showed no focal consolidation. Patient had good relief of his anxiety with medications in the emergency department. I encouraged him to follow up with primary care provider in the next day. Discussed coming back to the emergency department for any acute concerns. Discharge Plan Departure Patient Disposition: Home Clinical Impression: Anxiety Asthma Qualifiers: Asthma severity: unspecified severity Asthma persistence: unspecified Asthma complication type: unspecified Qualified Code(s): J45.909 - Unspecified asthma, uncomplicated Instructions: DI for Asthma -- Adult, DI for Anxiety -- Adult Activity Restrictions/Additional Instructions: I have given you a refill for your olanzapine. Please follow up with primary care provider soon as possible. Please come back to the emergency department for any acute concerns. Please try to monitor her medications and make sure that you do not run out of your daily medications as urine Zydis seems to be worse after you have run out of your olanzapine. Your x-ray shows no consolidation for pneumonia. Prescriptions: New olanzapine 15 mg tablet 15 mg PO DAILY Qty: 10 RF: 0 No Action Advair Diskus 500 MCG/50 MCG blister with device 1 puff INH BID Qty: 2 RF: 5 gabapentin [Neurontin] 300 mg Capsule 300 mg PO TID Qty: 180 RF: 0 duloxetine [Cymbalta] 30 mg Capsule,Delayed Release(Dr/Ec) 30 mg PO DAILY Qty: 90 RF: 0 acetaminophen 325 mg Tablet 650 mg PO Q6HR PRN (Reason: Pain, Mild) Qty: 30 RF: 0 ascorbic acid (vitamin C) [Vitamin C] 500 mg Tablet 500 mg PO DAILY Qty: 30 RF: 0 ferrous sulfate 325 mg (65 mg iron) Tablet 325 mg PO DAILY Qty: 30 RF: 0 diphenhydramine HCl [Allergy (diphenhydramine)] 25 mg Tablet 25 mg PO Q6HR PRN (Reason: Itching) Qty: 30 RF: 0 docusate sodium 100 mg Capsule 100 mg PO BID Qty: 60 RF: 0 nystatin [Nystop] 100,000 unit/gram Powder 1 applic topical TID PRN (Reason: abd folds/excoriation) Qty: 1 RF: 0 prednisone 10 mg tablet 5 mg PO 1700 Qty: 0 RF: 0 olanzapine 20 mg tablet 15 mg PO DAILY Qty: 10 RF: 0 methadone 10 MG tablet 75 mg PO DAILY Qty: 56 RF: 0 albuterol sulfate 90 mcg/actuation HFA aerosol inhaler 2 puff INHALATION Q4-6H PRN (Reason: shortness of breath or wheezing) Qty: 18 RF: 0 albuterol sulfate 2.5 MG/3 ML solution for nebulization 3 ml INH Q4HP PRN (Reason: Wheezing) Qty: 360 RF: 0 Referrals: Rama Hernández MD [Primary Care Provider] - <Rene Soria DO - Last Filed: 01/11/19 22:21> Cosign ED Attending Edi Attestation: I was available for consultation during this patient's emergency department encounter
[2019-01-11 21:30] VITALS: BP 125/52; O2SAT 92
[2019-01-11] MEDS: LORazepam 0.5 MG TABLET 1 MG PO (21:52)
== END 2019-01-11 22:27 | disposition home or self-care (01) ==
PROVIDERS: Emergency Provider Nurse Practitioner Family; Family Provider Family Medicine; PCP Family Medicine
DX: J45.909 Unspecified asthma, uncomplicated (principal); F41.9 Anxiety disorder, unspecified
CPT/HCPCS: 71045; 94640; 99283; J7613

== ENCOUNTER 2019-01-12 16:02 | Inpatient (IN) | payer MEDICAID, OTHER, SELFPAY ==
[2018-11-03 18:06] VITALS: BMI 69.3
[2019-01-12] VITALS (9 sets, daily range): BP systolic 116–126; BP diastolic 56–84; PULSE 88–111; RESP 18–26; TEMP 37.2–38.1; O2SAT 88–97; BMI 72.8
[2019-01-12] MEDS: ALBUTEROL 2.5 MG/3 ML NEB (ADULT) INH ×2 (16:23→21:50)
--- NOTE | 2019-01-12 16:32 | DI.RAD.S_ITS ---
PROCEDURE: XR CHEST 1V INDICATIONS: fever, cough TECHNIQUE: One view of the chest was acquired. COMPARISON: 01/11/19. FINDINGS: Surgical changes and devices: None. Lungs and pleura: Interval progression of patchy mid and lower lung zone opacities and diffuse interstitial prominence. Small left pleural effusion. No pneumothorax. Mediastinum: Cardiomediastinal contours are stable. Bones and chest wall: No suspicious bony lesions. Overlying soft tissues appear unremarkable. IMPRESSION: Interval increase in diffuse interstitial prominence and patchy bilateral mid and lower lung zone opacities, worse on the left with small left pleural effusion. Findings are compatible with developing airspace disease/multifocal pneumonia. Early pulmonary edema may have a similar appearance if clinically appropriate. Recommend followup chest radiograph 4-6 weeks after treatment to document resolution of findings. Dictated by: Stas Mtz M.D. on 01/12/2019 at 17:04 Approved by: Stas Mtz M.D. on 01/12/2019 at 17:06
[2019-01-12 16:44] LABS: Add Manual Diff / Slide Review NO; Basophils Absolute Auto 0 /uL (0-100); Basophils Percent Auto 0.6 % (0-2); Eosinophils Absolute Auto 0 /uL (0-450); Eosinophils Percent Auto 0.2 % (2-4); Hematocrit 31.7 % (41-53); Hemoglobin 10.2 g/dL (13.5-17.5); Lymphocytes Absolute Auto 900 /uL (1100-4500); Lymphocytes Percent Auto 13.2 % (25-40); Mean Corpuscular HGB Conc 32.1 % (30-36); Mean Corpuscular Hemoglobin 25.9 PG (26-34); Mean Corpuscular Volume 80.8 fL (80-100); Monocytes Absolute Auto 400 /uL (0-900); Monocytes Percent Auto 6.4 % (3-14); Neutrophils Absolute Auto 5300 /uL (1500-7000); Neutrophils Percent Auto 79.6 % (50-75); Platelet Count 233 X10^3/uL (150-400); Red Blood Cell Count 3.92 X10^6/uL (4.5-5.9); Red Cell Distribution Width 15.2 % (11.6-14.8); White Blood Cell Count 6.6 X10^3/uL (4.5-11.0)
[2019-01-12 16:49] LABS: Alanine Aminotransferase 8 IU/L (21-72); Albumin 3.7 g/dL (3.5-5.0); Albumin Globulin Ratio 1.1 (1.0-2.8); Alkaline Phosphatase 85 U/L (38-126); Aspartate Aminotransferase 14 IU/L (17-59); BUN Creatinine Ratio 8.3 (6-22); Bilirubin Total 0.5 mg/dL (0.2-1.3); Blood Urea Nitrogen 5 mg/dL (9-20); Calcium 8.4 mg/dL (8.4-10.2); Carbon Dioxide 31 mmol/L (22-32); Chloride 102 mmol/L (98-107); Estimated Glomerular Filt Rate > 60.0 mL/min (>60); Globulin 3.3 g/dL (1.7-4.1); Glucose 107 mg/dL (70-100); HEMOLYSIS < 15 (0-50); Potassium 3.9 mmol/L (3.4-5.1); Sodium 139 mmol/L (137-145)
--- NOTE | 2019-01-12 16:54 | PC.NURSE ---
Flu Swab obtained from right nare at this time.
--- NOTE | 2019-01-12 17:08 | ED_ITS ---
HPI - SOB/Dyspnea <Concepcion Worthy CLIENT TECHNICAL SPECIALIST-BC - Last Filed: 01/12/19 21:32> General Chief Complaint: Shortness of Breath/Dyspnea Stated Complaint: Asthma Time Seen by Provider: 01/12/19 16:26 Source: patient and EMS Mode of arrival: EMS Limitations: no limitations History of Present Illness The patient is a morbidly obese 38-year-old male with history of asthma and anxiety was well known to this department. I evaluated here yesterday for anxiety. He presents today with shortness of breath and fever that started this morning. He states his wheezing is worsening tried a nebulizer at home. Low- grade fevers up to 100. He denies any abdominal pain nausea vomiting diarrhea. He denies any chest pain. x-ray yesterday did not show any pneumonia. He presents today by EMS. He is a current smoker. Related Data Home Medications Medication Instructions Recorded Confirmed albuterol sulfate 2 - 4 puff INHALATION Q4-6H PRN 01/12/19 01/12/19 albuterol sulfate 3 ml INHALATION QID PRN 01/12/19 01/12/19 prednisone 5 mg PO BID 01/12/19 01/12/19 Previous Rx's Medication Instructions Recorded fluticasone propion-salmeterol 1 puff INH BID #2 inh 04/28/17 [Advair Diskus] duloxetine [Cymbalta] 30 mg PO DAILY #90 cap 09/15/18 acetaminophen 650 mg PO Q6HR PRN #30 tab 11/26/18 diphenhydramine HCl [Allergy 25 mg PO Q6HR PRN #30 tab 11/26/18 (diphenhydramine)] nystatin [Nystop] 1 applic TOPICAL TID PRN #1 pkg 11/26/18 olanzapine 15 mg PO DAILY #10 tab 01/11/19 amoxicillin-pot clavulanate 1 tab PO BID #14 tab 01/15/19 [Augmentin] gabapentin [Neurontin] 300 mg PO TID #180 cap 01/15/19 methadone 60 mg PO DAILY #1 tab 01/15/19 prednisone 40 mg PO DAILY #14 tab 01/15/19 Allergies Allergy/AdvReac Type Severity Reaction Status Date / Time NSAIDS (Non-Steroidal Allergy Unknown ASTHMA Verified 01/12/19 16:17 Anti-Inflamma FLARE UPS [NSAIDS (NON-STEROIDAL ANTI-INFLAMMA] ibuprofen AdvReac Mild nausea, GI Verified 01/12/19 16:17 upset Review of Systems <ANTONETTE Messer - Last Filed: 01/12/19 21:32> Review of Systems GENERAL: See HPI HEENT: Denies sinus pain, ear pain, sore throat, difficulty swallowing, dizziness. RESPIRATORY: See HPI CARDIOVASCULAR: Denies chest pain, palpitations, orthopnea, edema, GASTROINTESTINAL: Denies nausea, vomiting, abdominal pain, diarrhea, constipation, melena. : Denies dysuria, frequency, incontinence, hematuria, urinary retention. MUSCULOSKELETAL: denies weakness, joint pain, or bony pain SKIN: Denies rash, skin lesions, or other NEUROLOGIC: Denies weakness, headache, numbness, change in speech, confusion, seizures, incoordination. PSYCHIATRIC: No concerning psychosocial issues. 12 point review of systems is negative except for those stated above PFSH <ANTONETTE Messer - Last Filed: 01/12/19 21:32> Medical History (Updated 01/12/19 @ 21:42 by Otoniel Richardson MD) Anxiety (Chronic) Asthma (Chronic) Chronic skin ulcer (Chronic) Methadone use disorder, mild, in controlled environment (Chronic) Morbid obesity (Chronic) Pulmonary hypertension (Chronic) Surgical History H/O vertebral fracture repair (Chronic) History of hip surgery (Chronic) Family History Mother Diabetes mellitus Father No problems noted. Social History household members: significant other Smoking Status: Never smoker Family History Mother Diabetes mellitus Father No problems noted. Social History household members: significant other Smoking Status: Never smoker Exam <ANTONETTE Messer - Last Filed: 01/12/19 21:32> Narrative Exam Narrative: GENERAL: This is a morbidly obese patient sitting on stretcher HEAD: Atraumatic. Normocephalic. No temporal or scalp tenderness. EYES: Pupils equal round and reactive. Extraocular motions intact. No scleral icterus. No injection or drainage. NECK: Trachea midline. No JVD or lymphadenopathy. Supple, nontender, no meningeal signs. CARDIOVASCULAR: Regular rate and rhythm RESPIRATORY: Expiratory wheezes all wade to auscultation. no accessory muscle use. Some 1-2 word dyspnea noted. GASTROINTESTINAL: Abdomen soft, obese, non-tender, nondistended. No hepato- splenomegaly, or palpable masses. No guarding. BACK: Nontender without deformity or crepitance. No flank tenderness. NEURO: AOx3. Initial Vital Signs Initial Vital Signs: Vital Signs Temperature 100.1 F H 01/12/19 16:12 Pulse Rate 111 H 01/12/19 16:12 Respiratory Rate 26 H 01/12/19 16:12 Blood Pressure 126/65 01/12/19 16:12 Pulse Oximetry 88 L 01/12/19 16:12 <Maame Haynes MD - Last Filed: 01/17/19 14:05> Initial Vital Signs Initial Vital Signs: Vital Signs Temperature 100.1 F H 01/12/19 16:12 Pulse Rate 111 H 01/12/19 16:12 Respiratory Rate 26 H 01/12/19 16:12 Blood Pressure 126/65 01/12/19 16:12 Pulse Oximetry 88 L 01/12/19 16:12 Course <ANTONETTE Messer - Last Filed: 01/12/19 21:32> Orders Ordered: Discontinued Medications Acetaminophen (Tylenol) 650 mg PO NOW ONE Stop: 01/12/19 18:04 Last Admin: 01/12/19 18:04 Dose: 650 mg Acetaminophen (Tylenol) 650 mg PO Q6HR PRN PRN Reason: As Needed for Fever/Mild Pain Al Hydrox/Mg Hydrox/Simethicone (Maalox Plus) 30 ml PO Q6HR PRN PRN Reason: Dyspepsia Albuterol (Ventolin) 2.5 mg INH NOW ONE Stop: 01/12/19 16:16 Last Admin: 01/12/19 16:23 Dose: 2.5 mg Albuterol (Ventolin) 2.5 mg INH [id number] [facility] Last Admin: 01/13/19 08:33 Dose: Not Given Albuterol (Ventolin) 2.5 mg INH [id number] PRN PRN Reason: Shortness Of Breath Last Admin: 01/14/19 17:33 Dose: 2.5 mg Admin: 01/14/19 10:15 Dose: 2.5 mg Admin: 01/13/19 08:18 Dose: 2.5 mg Admin: 01/13/19 01:59 Dose: 2.5 mg Admin: 01/12/19 21:50 Dose: 2.5 mg Albuterol (Ventolin) 2.5 mg INH [id number] [facility] Last Admin: 01/15/19 08:18 Dose: 2.5 mg Admin: 01/15/19 02:05 Dose: Not Given Admin: 01/14/19 21:27 Dose: 2.5 mg Admin: 01/14/19 14:59 Dose: 2.5 mg Admin: 01/14/19 14:58 Dose: 2.5 mg Admin: 01/14/19 07:14 Dose: 2.5 mg Admin: 01/13/19 22:37 Dose: 2.5 mg Admin: 01/13/19 20:10 Dose: 2.5 mg Admin: 01/13/19 16:05 Dose: 2.5 mg Admin: 01/13/19 12:22 Dose: 2.5 mg Amoxicillin/Clavulanate Potassium (Augmentin 875-125 Mg) 1 tab PO BID [facility] Last Admin: 01/15/19 08:21 Dose: 1 tab Admin: 01/14/19 21:20 Dose: 1 tab Bisacodyl (Dulcolax) 10 mg AL DAILY PRN PRN Reason: Constipation Calcium Carbonate (Tums) 1,000 mg PO Q4HR PRN PRN Reason: Dyspepsia Diphenhydramine HCl (Benadryl) 25 mg PO Q6HR PRN PRN Reason: Itching Docusate Sodium (Colace) 100 mg PO BID [facility] Last Admin: 01/15/19 08:22 Dose: Not Given Admin: 01/14/19 21:20 Dose: 100 mg Admin: 01/14/19 09:11 Dose: Not Given Admin: 01/13/19 21:57 Dose: Not Given Admin: 01/13/19 08:08 Dose: 100 mg Duloxetine HCl (Cymbalta) 30 mg PO DAILY [facility] Last Admin: 01/15/19 08:21 Dose: 30 mg Admin: 01/14/19 07:54 Dose: 30 mg Admin: 01/13/19 08:08 Dose: 30 mg Enoxaparin Sodium (Lovenox) 40 mg SUBCUT DAILY [facility] Last Admin: 01/13/19 08:08 Dose: 40 mg Admin: 01/12/19 22:51 Dose: 40 mg Enoxaparin Sodium (Lovenox) 40 mg SUBCUT BID [facility] Last Admin: 01/15/19 08:21 Dose: 40 mg Admin: 01/14/19 21:20 Dose: 40 mg Admin: 01/14/19 07:55 Dose: 40 mg Admin: 01/13/19 21:55 Dose: 40 mg Gabapentin (Neurontin) 300 mg PO TID [facility] Last Admin: 01/15/19 08:21 Dose: 300 mg Admin: 01/14/19 21:20 Dose: 300 mg Admin: 01/14/19 14:56 Dose: Not Given Admin: 01/14/19 07:55 Dose: 300 mg Admin: 01/13/19 21:55 Dose: 300 mg Admin: 01/13/19 15:52 Dose: 300 mg Admin: 01/13/19 08:09 Dose: 300 mg Levofloxacin (Levaquin) 750 mg in 150 mls @ 100 mls/hr IV NOW ONE Stop: 01/12/19 19:16 Last Admin: 01/12/19 18:45 Dose: 100 mls/hr Piperacillin/Tazobactam/Dextrose (Zosyn) 3.375 gm in 50 mls @ 100 mls/hr IV NOW ONE Stop: 01/12/19 18:17 Last Infusion: 01/12/19 18:47 Dose: 0 mls/hr Infusion: 01/12/19 18:13 Dose: 100 mls/hr Admin: 01/12/19 17:57 Dose: 100 mls/hr Ceftriaxone Sodium/Dextrose (Rocephin) 2 gm in 50 mls @ 100 mls/hr IV Q24H [facility] Last Infusion: 01/13/19 02:00 Dose: 0 mls/hr Admin: 01/13/19 01:30 Dose: 100 mls/hr Piperacillin/Tazobactam/Dextrose (Zosyn) 3.375 gm in 50 mls @ 100 mls/hr IV Q8H [facility] Last Infusion: 01/14/19 07:52 Dose: 0 mls/hr Admin: 01/14/19 06:49 Dose: 100 mls/hr Infusion: 01/13/19 23:17 Dose: 0 mls/hr Admin: 01/13/19 22:44 Dose: 100 mls/hr Infusion: 01/13/19 15:29 Dose: 0 mls/hr Admin: 01/13/19 14:59 Dose: 100 mls/hr Infusion: 01/13/19 10:38 Dose: 100 mls/hr Admin: 01/13/19 08:07 Dose: 100 mls/hr Loratadine (Claritin) 10 mg PO BEDTIME [facility] Last Admin: 01/14/19 21:20 Dose: 10 mg Magnesium Hydroxide (Milk Of Magnesia) 30 ml PO DAILY PRN PRN Reason: Constipation Methadone HCl (Methadone) 70 mg PO DAILY [facility] Last Admin: 01/13/19 08:27 Dose: 70 mg Methadone HCl (Methadone) 65 mg PO DAILY [facility] Last Admin: 01/14/19 08:03 Dose: 65 mg Methadone HCl (Methadone) 60 mg PO DAILY [facility] Last Admin: 01/15/19 08:21 Dose: 60 mg Methylprednisolone (Solu-Medrol 125 Mg Vial) 125 mg IV NOW ONE Stop: 01/12/19 17:17 Last Admin: 01/12/19 17:44 Dose: 125 mg Methylprednisolone (Solu-Medrol 125 Mg Vial) 60 mg IV Q8H [facility] Last Admin: 01/13/19 17:16 Dose: 60 mg Admin: 01/13/19 08:09 Dose: 60 mg Admin: 01/13/19 01:31 Dose: 60 mg Methylprednisolone (Solu-Medrol) 40 mg IV Q8H [facility] Last Admin: 01/14/19 08:03 Dose: 40 mg Admin: 01/14/19 01:11 Dose: 40 mg Montelukast Sodium (Singulair) 10 mg PO DAILY [facility] Last Admin: 01/15/19 08:21 Dose: 10 mg Nystatin (Nystop) 1 applic TOP TID PRN PRN Reason: abd folds/excoriation Olanzapine (Zyprexa Zydis) 15 mg PO NOW ONE Stop: 01/12/19 17:16 Last Admin: 01/12/19 17:44 Dose: 15 mg Olanzapine (Zyprexa) 15 mg PO DAILY [facility] Last Admin: 01/15/19 08:20 Dose: 15 mg Admin: 01/14/19 07:56 Dose: 15 mg Admin: 01/13/19 08:09 Dose: 15 mg Prednisone (Deltasone) 40 mg PO DAILY [facility] Last Admin: 01/15/19 08:21 Dose: 40 mg Fluticasone/Salmeterol (Advair 500/50 Diskus) 1 puff INH BID [facility] Last Admin: 01/15/19 08:18 Dose: 1 puff Admin: 01/14/19 21:20 Dose: 1 puff Admin: 01/14/19 07:14 Dose: 1 puff Admin: 01/13/19 20:10 Dose: 1 puff Admin: 01/13/19 08:08 Dose: 1 puff Sodium Chloride (Normal Saline 0.9% Flush) 10 ml IV BID [facility] Last Admin: 01/15/19 08:22 Dose: 10 ml Admin: 01/14/19 21:20 Dose: 10 ml Admin: 01/14/19 07:54 Dose: 10 ml Admin: 01/13/19 21:55 Dose: 10 ml Sodium Chloride (Normal Saline 0.9% Flush) 10 ml IV PRN PRN PRN Reason: Flush Last Admin: 01/14/19 06:50 Dose: 10 ml Admin: 01/13/19 14:59 Dose: 10 ml Vital Signs - 8 hr 01/12/19 16:12 01/12/19 16:17 01/12/19 17:00 Temperature 100.1 F H Pulse Rate 111 H 103 H 104 H Respiratory Rate 26 H 18 18 Blood Pressure 126/65 Blood Pressure [Left Wrist] 116/84 Pulse Oximetry 88 L 97 95 01/12/19 17:30 01/12/19 18:04 01/12/19 18:30 Temperature 100.1 F H 100.5 F H Pulse Rate 111 H 94 H Respiratory Rate 18 20 Blood Pressure 122/56 L Blood Pressure [Left Wrist] 125/58 L Pulse Oximetry 93 01/12/19 20:08 01/12/19 21:27 Temperature 98.9 F Pulse Rate Respiratory Rate Blood Pressure Blood Pressure [Left Wrist] Pulse Oximetry 93 <Maame Haynes MD - Last Filed: 01/17/19 14:05> Orders Ordered: Discontinued Medications Acetaminophen (Tylenol) 650 mg PO NOW ONE Stop: 01/12/19 18:04 Last Admin: 01/12/19 18:04 Dose: 650 mg Acetaminophen (Tylenol) 650 mg PO Q6HR PRN PRN Reason: As Needed for Fever/Mild Pain Al Hydrox/Mg Hydrox/Simethicone (Maalox Plus) 30 ml PO Q6HR PRN PRN Reason: Dyspepsia Albuterol (Ventolin) 2.5 mg INH NOW ONE Stop: 01/12/19 16:16 Last Admin: 01/12/19 16:23 Dose: 2.5 mg Albuterol (Ventolin) 2.5 mg INH [id number] [facility] Last Admin: 01/13/19 08:33 Dose: Not Given Albuterol (Ventolin) 2.5 mg INH [id number] PRN PRN Reason: Shortness Of Breath Last Admin: 01/14/19 17:33 Dose: 2.5 mg Admin: 01/14/19 10:15 Dose: 2.5 mg Admin: 01/13/19 08:18 Dose: 2.5 mg Admin: 01/13/19 01:59 Dose: 2.5 mg Admin: 01/12/19 21:50 Dose: 2.5 mg Albuterol (Ventolin) 2.5 mg INH [id number] [facility] Last Admin: 01/15/19 08:18 Dose: 2.5 mg Admin: 01/15/19 02:05 Dose: Not Given Admin: 01/14/19 21:27 Dose: 2.5 mg Admin: 01/14/19 14:59 Dose: 2.5 mg Admin: 01/14/19 14:58 Dose: 2.5 mg Admin: 01/14/19 07:14 Dose: 2.5 mg Admin: 01/13/19 22:37 Dose: 2.5 mg Admin: 01/13/19 20:10 Dose: 2.5 mg Admin: 01/13/19 16:05 Dose: 2.5 mg Admin: 01/13/19 12:22 Dose: 2.5 mg Amoxicillin/Clavulanate Potassium (Augmentin 875-125 Mg) 1 tab PO BID [facility] Last Admin: 01/15/19 08:21 Dose: 1 tab Admin: 01/14/19 21:20 Dose: 1 tab Bisacodyl (Dulcolax) 10 mg AL DAILY PRN PRN Reason: Constipation Calcium Carbonate (Tums) 1,000 mg PO Q4HR PRN PRN Reason: Dyspepsia Diphenhydramine HCl (Benadryl) 25 mg PO Q6HR PRN PRN Reason: Itching Docusate Sodium (Colace) 100 mg PO BID [facility] Last Admin: 01/15/19 08:22 Dose: Not Given Admin: 01/14/19 21:20 Dose: 100 mg Admin: 01/14/19 09:11 Dose: Not Given Admin: 01/13/19 21:57 Dose: Not Given Admin: 01/13/19 08:08 Dose: 100 mg Duloxetine HCl (Cymbalta) 30 mg PO DAILY [facility] Last Admin: 01/15/19 08:21 Dose: 30 mg Admin: 01/14/19 07:54 Dose: 30 mg Admin: 01/13/19 08:08 Dose: 30 mg Enoxaparin Sodium (Lovenox) 40 mg SUBCUT DAILY [facility] Last Admin: 01/13/19 08:08 Dose: 40 mg Admin: 01/12/19 22:51 Dose: 40 mg Enoxaparin Sodium (Lovenox) 40 mg SUBCUT BID [facility] Last Admin: 01/15/19 08:21 Dose: 40 mg Admin: 01/14/19 21:20 Dose: 40 mg Admin: 01/14/19 07:55 Dose: 40 mg Admin: 01/13/19 21:55 Dose: 40 mg Gabapentin (Neurontin) 300 mg PO TID [facility] Last Admin: 01/15/19 08:21 Dose: 300 mg Admin: 01/14/19 21:20 Dose: 300 mg Admin: 01/14/19 14:56 Dose: Not Given Admin: 01/14/19 07:55 Dose: 300 mg Admin: 01/13/19 21:55 Dose: 300 mg Admin: 01/13/19 15:52 Dose: 300 mg Admin: 01/13/19 08:09 Dose: 300 mg Levofloxacin (Levaquin) 750 mg in 150 mls @ 100 mls/hr IV NOW ONE Stop: 01/12/19 19:16 Last Admin: 01/12/19 18:45 Dose: 100 mls/hr Piperacillin/Tazobactam/Dextrose (Zosyn) 3.375 gm in 50 mls @ 100 mls/hr IV NOW ONE Stop: 01/12/19 18:17 Last Infusion: 01/12/19 18:47 Dose: 0 mls/hr Infusion: 01/12/19 18:13 Dose: 100 mls/hr Admin: 01/12/19 17:57 Dose: 100 mls/hr Ceftriaxone Sodium/Dextrose (Rocephin) 2 gm in 50 mls @ 100 mls/hr IV Q24H [facility] Last Infusion: 01/13/19 02:00 Dose: 0 mls/hr Admin: 01/13/19 01:30 Dose: 100 mls/hr Piperacillin/Tazobactam/Dextrose (Zosyn) 3.375 gm in 50 mls @ 100 mls/hr IV Q8H [facility] Last Infusion: 01/14/19 07:52 Dose: 0 mls/hr Admin: 01/14/19 06:49 Dose: 100 mls/hr Infusion: 01/13/19 23:17 Dose: 0 mls/hr Admin: 01/13/19 22:44 Dose: 100 mls/hr Infusion: 01/13/19 15:29 Dose: 0 mls/hr Admin: 01/13/19 14:59 Dose: 100 mls/hr Infusion: 01/13/19 10:38 Dose: 100 mls/hr Admin: 01/13/19 08:07 Dose: 100 mls/hr Loratadine (Claritin) 10 mg PO BEDTIME [facility] Last Admin: 01/14/19 21:20 Dose: 10 mg Magnesium Hydroxide (Milk Of Magnesia) 30 ml PO DAILY PRN PRN Reason: Constipation Methadone HCl (Methadone) 70 mg PO DAILY [facility] Last Admin: 01/13/19 08:27 Dose: 70 mg Methadone HCl (Methadone) 65 mg PO DAILY [facility] Last Admin: 01/14/19 08:03 Dose: 65 mg Methadone HCl (Methadone) 60 mg PO DAILY [facility] Last Admin: 01/15/19 08:21 Dose: 60 mg Methylprednisolone (Solu-Medrol 125 Mg Vial) 125 mg IV NOW ONE Stop: 01/12/19 17:17 Last Admin: 01/12/19 17:44 Dose: 125 mg Methylprednisolone (Solu-Medrol 125 Mg Vial) 60 mg IV Q8H [facility] Last Admin: 01/13/19 17:16 Dose: 60 mg Admin: 01/13/19 08:09 Dose: 60 mg Admin: 01/13/19 01:31 Dose: 60 mg Methylprednisolone (Solu-Medrol) 40 mg IV Q8H [facility] Last Admin: 01/14/19 08:03 Dose: 40 mg Admin: 01/14/19 01:11 Dose: 40 mg Montelukast Sodium (Singulair) 10 mg PO DAILY [facility] Last Admin: 01/15/19 08:21 Dose: 10 mg Nystatin (Nystop) 1 applic TOP TID PRN PRN Reason: abd folds/excoriation Olanzapine (Zyprexa Zydis) 15 mg PO NOW ONE Stop: 01/12/19 17:16 Last Admin: 01/12/19 17:44 Dose: 15 mg Olanzapine (Zyprexa) 15 mg PO DAILY [facility] Last Admin: 01/15/19 08:20 Dose: 15 mg Admin: 01/14/19 07:56 Dose: 15 mg Admin: 01/13/19 08:09 Dose: 15 mg Prednisone (Deltasone) 40 mg PO DAILY [facility] Last Admin: 01/15/19 08:21 Dose: 40 mg Fluticasone/Salmeterol (Advair 500/50 Diskus) 1 puff INH BID [facility] Last Admin: 01/15/19 08:18 Dose: 1 puff Admin: 01/14/19 21:20 Dose: 1 puff Admin: 01/14/19 07:14 Dose: 1 puff Admin: 01/13/19 20:10 Dose: 1 puff Admin: 01/13/19 08:08 Dose: 1 puff Sodium Chloride (Normal Saline 0.9% Flush) 10 ml IV BID [facility] Last Admin: 01/15/19 08:22 Dose: 10 ml Admin: 01/14/19 21:20 Dose: 10 ml Admin: 01/14/19 07:54 Dose: 10 ml Admin: 01/13/19 21:55 Dose: 10 ml Sodium Chloride (Normal Saline 0.9% Flush) 10 ml IV PRN PRN PRN Reason: Flush Last Admin: 01/14/19 06:50 Dose: 10 ml Admin: 01/13/19 14:59 Dose: 10 ml Vital Signs - 8 hr 01/12/19 16:12 01/12/19 16:17 01/12/19 17:00 Temperature 100.1 F H Pulse Rate 111 H 103 H 104 H Respiratory Rate 26 H 18 18 Blood Pressure 126/65 Blood Pressure [Left Wrist] 116/84 Pulse Oximetry 88 L 97 95 01/12/19 17:30 01/12/19 18:04 01/12/19 18:30 Temperature 100.1 F H 100.5 F H Pulse Rate 111 H 94 H Respiratory Rate 18 20 Blood Pressure 122/56 L Blood Pressure [Left Wrist] 125/58 L Pulse Oximetry 93 01/12/19 20:08 01/12/19 21:27 Temperature 98.9 F Pulse Rate Respiratory Rate Blood Pressure Blood Pressure [Left Wrist] Pulse Oximetry 93 MDM - SOB/Dyspnea <HELEN Messer-BC - Last Filed: 01/12/19 21:32> Lab Data Result diagrams: 01/15/19 05:10 01/15/19 05:10 Lab Results 01/12/19 01/12/19 01/12/19 Range/Units 15:31 15:31 15:31 WBC 6.6 (4.5-11.0) X10^3/uL RBC 3.92 L (4.5-5.9) X10^6/uL Hgb 10.2 L (13.5-17.5) g/dL Hct 31.7 L (41-53) % MCV 80.8 (80-100) fL MCH 25.9 L (26-34) PG MCHC 32.1 (30-36) % RDW 15.2 H (11.6-14.8) % Plt Count 233 (150-400) X10^3/uL Neut % (Auto) 79.6 H (50-75) % Lymph % (Auto) 13.2 L (25-40) % Becker % (Auto) 6.4 (3-14) % Eos % (Auto) 0.2 L (2-4) % Baso % (Auto) 0.6 (0-2) % Neut # (Auto) 5300 (2480-1993) /uL Lymph # (Auto) 900 L (8576-3282) /uL Becker # (Auto) 400 (0-900) /uL Eos # (Auto) 0 (0-450) /uL Baso # (Auto) 0 (0-100) /uL ABG pH (7.35-7.45) ABG pCO2 (35-45) mmHg ABG pO2 (80-100) mmHg ABG HCO3 (22-26) mmol/L ABG Total CO2 (21-31) mmol/L ABG O2 Saturation (95-100) % ABG Base Excess (-2-2) mmol/L FiO2 Sodium 139 (137-145) mmol/L Potassium 3.9 (3.4-5.1) mmol/L Chloride 102 (98-107) mmol/L Carbon Dioxide 31 (22-32) mmol/L BUN 5 L (9-20) mg/dL Creatinine 0.60 L (0.66-1.25) mg/dL Estimated GFR > 60.0 (>60) mL/min BUN/Creatinine Ratio 8.3 (6-22) Glucose 107 H (70-100) mg/dL Calcium 8.4 (8.4-10.2) mg/dL Magnesium (1.6-2.3) mg/dL Total Bilirubin 0.5 (0.2-1.3) mg/dL AST 14 L (17-59) IU/L ALT 8 L (21-72) IU/L Alkaline Phosphatase 85 (38-126) U/L B-Natriuretic Peptide < 100 (<100) Total Protein 7.0 (6.3-8.2) g/dL Albumin 3.7 (3.5-5.0) g/dL Globulin 3.3 (1.7-4.1) g/dL Albumin/Globulin Ratio 1.1 (1.0-2.8) Procalcitonin (<0.5) ng/mL Chlamy pneumoniae PCR (Not Detect) Adenovirus (PCR) (Not Detect) B.parapertussis DNA PCR (Not Detect) Coronavirus OC43 (PCR) (Not Detect) Coronavirus HKU1 (PCR) (Not Detect) Coronavirus 229E (PCR) (Not Detect) Coronavirus NL63 (PCR) (Not Detect) Human Metapneumovir PCR (Not Detect) Influenza Type A (PCR) (Not Detect) Influenza Type B (PCR) (Not Detect) Influenza A & B (PCR) (Negative) M. pneumoniae (PCR) (Not Detect) Parainfluenza 1 (PCR) (Not Detect) Parainfluenza 2 (PCR) (Not Detect) Parainfluenza 3 (PCR) (Not Detect) Parainfluenza 4 (PCR) (Not Detect) RSV (PCR) (Not Detect) Entero/Rhino (PCR) (Not Detect) Anti-Streptolysin O Ab (< 200) IU/mL 01/12/19 01/12/19 01/13/19 Range/Units 16:50 21:39 07:30 WBC 3.0 L D (4.5-11.0) X10^3/uL RBC 4.11 L (4.5-5.9) X10^6/uL Hgb 10.5 L (13.5-17.5) g/dL Hct 33.0 L (41-53) % MCV 80.5 (80-100) fL MCH 25.5 L (26-34) PG MCHC 31.7 (30-36) % RDW 15.1 H (11.6-14.8) % Plt Count 144 L (150-400) X10^3/uL Neut % (Auto) 83.5 H (50-75) % Lymph % (Auto) 15.6 L (25-40) % Becker % (Auto) 0.8 L (3-14) % Eos % (Auto) 0.0 L (2-4) % Baso % (Auto) 0.1 (0-2) % Neut # (Auto) 2500 (1824-6517) /uL Lymph # (Auto) 500 L (3056-6677) /uL Becker # (Auto) 0 (0-900) /uL Eos # (Auto) 0 (0-450) /uL Baso # (Auto) 0 (0-100) /uL ABG pH 7.33 L (7.35-7.45) ABG pCO2 58.4 H (35-45) mmHg ABG pO2 77 L (80-100) mmHg ABG HCO3 31 H (22-26) mmol/L ABG Total CO2 33 H (21-31) mmol/L ABG O2 Saturation 94 L (95-100) % ABG Base Excess 5.0 H (-2-2) mmol/L FiO2 28 Sodium (137-145) mmol/L Potassium (3.4-5.1) mmol/L Chloride (98-107) mmol/L Carbon Dioxide (22-32) mmol/L BUN (9-20) mg/dL Creatinine (0.66-1.25) mg/dL Estimated GFR (>60) mL/min BUN/Creatinine Ratio (6-22) Glucose (70-100) mg/dL Calcium (8.4-10.2) mg/dL Magnesium (1.6-2.3) mg/dL Total Bilirubin (0.2-1.3) mg/dL AST (17-59) IU/L ALT (21-72) IU/L Alkaline Phosphatase (38-126) U/L B-Natriuretic Peptide (<100) Total Protein (6.3-8.2) g/dL Albumin (3.5-5.0) g/dL Globulin (1.7-4.1) g/dL Albumin/Globulin Ratio (1.0-2.8) Procalcitonin (<0.5) ng/mL Chlamy pneumoniae PCR (Not Detect) Adenovirus (PCR) (Not Detect) B.parapertussis DNA PCR (Not Detect) Coronavirus OC43 (PCR) (Not Detect) Coronavirus HKU1 (PCR) (Not Detect) Coronavirus 229E (PCR) (Not Detect) Coronavirus NL63 (PCR) (Not Detect) Human Metapneumovir PCR (Not Detect) Influenza Type A (PCR) (Not Detect) Influenza Type B (PCR) (Not Detect) Influenza A & B (PCR) Negative (Negative) M. pneumoniae (PCR) (Not Detect) Parainfluenza 1 (PCR) (Not Detect) Parainfluenza 2 (PCR) (Not Detect) Parainfluenza 3 (PCR) (Not Detect) Parainfluenza 4 (PCR) (Not Detect) RSV (PCR) (Not Detect) Entero/Rhino (PCR) (Not Detect) Anti-Streptolysin O Ab (< 200) IU/mL 01/13/19 01/13/19 01/13/19 Range/Units 07:30 09:12 13:28 WBC (4.5-11.0) X10^3/uL RBC (4.5-5.9) X10^6/uL Hgb (13.5-17.5) g/dL Hct (41-53) % MCV (80-100) fL MCH (26-34) PG MCHC (30-36) % RDW (11.6-14.8) % Plt Count (150-400) X10^3/uL Neut % (Auto) (50-75) % Lymph % (Auto) (25-40) % Becker % (Auto) (3-14) % Eos % (Auto) (2-4) % Baso % (Auto) (0-2) % Neut # (Auto) (7968-7493) /uL Lymph # (Auto) (7872-8979) /uL Becker # (Auto) (0-900) /uL Eos # (Auto) (0-450) /uL Baso # (Auto) (0-100) /uL ABG pH (7.35-7.45) ABG pCO2 (35-45) mmHg ABG pO2 (80-100) mmHg ABG HCO3 (22-26) mmol/L ABG Total CO2 (21-31) mmol/L ABG O2 Saturation (95-100) % ABG Base Excess (-2-2) mmol/L FiO2 Sodium (137-145) mmol/L Potassium (3.4-5.1) mmol/L Chloride (98-107) mmol/L Carbon Dioxide (22-32) mmol/L BUN (9-20) mg/dL Creatinine (0.66-1.25) mg/dL Estimated GFR (>60) mL/min BUN/Creatinine Ratio (6-22) Glucose (70-100) mg/dL Calcium (8.4-10.2) mg/dL Magnesium (1.6-2.3) mg/dL Total Bilirubin (0.2-1.3) mg/dL AST (17-59) IU/L ALT (21-72) IU/L Alkaline Phosphatase (38-126) U/L B-Natriuretic Peptide (<100) Total Protein (6.3-8.2) g/dL Albumin (3.5-5.0) g/dL Globulin (1.7-4.1) g/dL Albumin/Globulin Ratio (1.0-2.8) Procalcitonin < 0.05 (<0.5) ng/mL Chlamy pneumoniae PCR Not detected (Not Detect) Adenovirus (PCR) Not detected (Not Detect) B.parapertussis DNA PCR Not detected (Not Detect) Coronavirus OC43 (PCR) Not detected (Not Detect) Coronavirus HKU1 (PCR) Not detected (Not Detect) Coronavirus 229E (PCR) Not detected (Not Detect) Coronavirus NL63 (PCR) Not detected (Not Detect) Human Metapneumovir PCR Not detected (Not Detect) Influenza Type A (PCR) Not detected (Not Detect) Influenza Type B (PCR) Not detected (Not Detect) Influenza A & B (PCR) (Negative) M. pneumoniae (PCR) Not detected (Not Detect) Parainfluenza 1 (PCR) Not detected (Not Detect) Parainfluenza 2 (PCR) Not detected (Not Detect) Parainfluenza 3 (PCR) Not detected (Not Detect) Parainfluenza 4 (PCR) Not detected (Not Detect) RSV (PCR) Not detected (Not Detect) Entero/Rhino (PCR) Not detected (Not Detect) Anti-Streptolysin O Ab 246 H (< 200) IU/mL 01/15/19 01/15/19 01/15/19 Range/Units 05:10 05:10 05:10 WBC 4.7 D (4.5-11.0) X10^3/uL RBC 3.61 L (4.5-5.9) X10^6/uL Hgb 9.2 L (13.5-17.5) g/dL Hct 28.8 L (41-53) % MCV 79.9 L (80-100) fL MCH 25.6 L (26-34) PG MCHC 32.0 (30-36) % RDW 14.8 (11.6-14.8) % Plt Count 106 L (150-400) X10^3/uL Neut % (Auto) 61.6 D (50-75) % Lymph % (Auto) 26.7 (25-40) % Becker % (Auto) 11.3 (3-14) % Eos % (Auto) 0.1 L (2-4) % Baso % (Auto) 0.3 (0-2) % Neut # (Auto) 2900 (9012-3589) /uL Lymph # (Auto) 1300 (6288-0283) /uL Becker # (Auto) 500 (0-900) /uL Eos # (Auto) 0 (0-450) /uL Baso # (Auto) 0 (0-100) /uL ABG pH (7.35-7.45) ABG pCO2 (35-45) mmHg ABG pO2 (80-100) mmHg ABG HCO3 (22-26) mmol/L ABG Total CO2 (21-31) mmol/L ABG O2 Saturation (95-100) % ABG Base Excess (-2-2) mmol/L FiO2 Sodium 139 (137-145) mmol/L Potassium 4.0 (3.4-5.1) mmol/L Chloride 101 (98-107) mmol/L Carbon Dioxide 35 H (22-32) mmol/L BUN 18 (9-20) mg/dL Creatinine 0.60 L (0.66-1.25) mg/dL Estimated GFR > 60.0 (>60) mL/min BUN/Creatinine Ratio 30.0 H (6-22) Glucose 90 (70-100) mg/dL Calcium 8.2 L (8.4-10.2) mg/dL Magnesium 2.5 H (1.6-2.3) mg/dL Total Bilirubin 0.2 (0.2-1.3) mg/dL AST 10 L (17-59) IU/L ALT < 6 L (21-72) IU/L Alkaline Phosphatase 61 (38-126) U/L B-Natriuretic Peptide (<100) Total Protein 6.3 (6.3-8.2) g/dL Albumin 3.3 L (3.5-5.0) g/dL Globulin 3.0 (1.7-4.1) g/dL Albumin/Globulin Ratio 1.1 (1.0-2.8) Procalcitonin < 0.05 (<0.5) ng/mL Chlamy pneumoniae PCR (Not Detect) Adenovirus (PCR) (Not Detect) B.parapertussis DNA PCR (Not Detect) Coronavirus OC43 (PCR) (Not Detect) Coronavirus HKU1 (PCR) (Not Detect) Coronavirus 229E (PCR) (Not Detect) Coronavirus NL63 (PCR) (Not Detect) Human Metapneumovir PCR (Not Detect) Influenza Type A (PCR) (Not Detect) Influenza Type B (PCR) (Not Detect) Influenza A & B (PCR) (Negative) M. pneumoniae (PCR) (Not Detect) Parainfluenza 1 (PCR) (Not Detect) Parainfluenza 2 (PCR) (Not Detect) Parainfluenza 3 (PCR) (Not Detect) Parainfluenza 4 (PCR) (Not Detect) RSV (PCR) (Not Detect) Entero/Rhino (PCR) (Not Detect) Anti-Streptolysin O Ab (< 200) IU/mL Imaging Data Chest x-ray: Radiologist's impression: [address] [address] XRay Report Signed Patient: Babatunde Fitzgerald KMR#: [id number] : 1980Acct:[id number] Age/Sex: 38 / MDate of Service: 01/12/19 Loc: Accession Number: [id number] Procedure: XR chest 1V Ordering Provider: Concepcion Worthy-NATHAN PROCEDURE: XR CHEST 1V INDICATIONS: fever, cough TECHNIQUE: One view of the chest was acquired. COMPARISON: 01/11/19. FINDINGS: Surgical changes and devices: None. Lungs and pleura: Interval progression of patchy mid and lower lung zone opacities and diffuse interstitial prominence. Small left pleural effusion. No pneumothorax. Mediastinum: Cardiomediastinal contours are stable. Bones and chest wall: No suspicious bony lesions. Overlying soft tissues appear unremarkable. IMPRESSION: Interval increase in diffuse interstitial prominence and patchy bilateral mid and lower lung zone opacities, worse on the left with small left pleural effusion. Findings are compatible with developing airspace disease/multifocal pneumonia. Early pulmonary edema may have a similar appearance if clinically appropriate. Recommend followup chest radiograph 4-6 weeks after treatment to document resolution of findings. Dictated by: Stas Mtz M.D. on 01/12/2019 at 17:04 Approved by: Stas Mtz M.D. on 01/12/2019 at 17:06 [facility] Narrative Medical decision making narrative: The patient is a 38-year-old male who is well-known to us in this department. He presents today with significant worsening since his evaluation for anxiety yesterday. He started having fevers this morning as well as worsening wheezing. His chest x-ray indicates a significant worsening from yesterday, with the occurrence of findings compatible multifocal pneumonia. He was recently an inpatient at [facility], indicating concern for hospital-acquired pneumonia. He was hypoxic upon arrival at 88 % at room air with low-grade temperatures. The patient improved when he was placed on oxygen. He was given Solu-Medrol and nebulizers in the emergency department. I contacted Dr. Cobos for admission, who kindly agreed to accept the patient. As discussed with her, the patient was given IV Levaquin as well as IV Zosyn. He was hemodynamically stable throughout his stay in the emergency department and admitted as an inpatient. <Maame Haynes MD - Last Filed: 01/17/19 14:05> Lab Data Lab Results 01/12/19 01/12/19 01/12/19 Range/Units 15:31 15:31 15:31 WBC 6.6 (4.5-11.0) X10^3/uL RBC 3.92 L (4.5-5.9) X10^6/uL Hgb 10.2 L (13.5-17.5) g/dL Hct 31.7 L (41-53) % MCV 80.8 (80-100) fL MCH 25.9 L (26-34) PG MCHC 32.1 (30-36) % RDW 15.2 H (11.6-14.8) % Plt Count 233 (150-400) X10^3/uL Neut % (Auto) 79.6 H (50-75) % Lymph % (Auto) 13.2 L (25-40) % Becker % (Auto) 6.4 (3-14) % Eos % (Auto) 0.2 L (2-4) % Baso % (Auto) 0.6 (0-2) % Neut # (Auto) 5300 (4423-3394) /uL Lymph # (Auto) 900 L (2882-8377) /uL Becker # (Auto) 400 (0-900) /uL Eos # (Auto) 0 (0-450) /uL Baso # (Auto) 0 (0-100) /uL ABG pH (7.35-7.45) ABG pCO2 (35-45) mmHg ABG pO2 (80-100) mmHg ABG HCO3 (22-26) mmol/L ABG Total CO2 (21-31) mmol/L ABG O2 Saturation (95-100) % ABG Base Excess (-2-2) mmol/L FiO2 Sodium 139 (137-145) mmol/L Potassium 3.9 (3.4-5.1) mmol/L Chloride 102 (98-107) mmol/L Carbon Dioxide 31 (22-32) mmol/L BUN 5 L (9-20) mg/dL Creatinine 0.60 L (0.66-1.25) mg/dL Estimated GFR > 60.0 (>60) mL/min BUN/Creatinine Ratio 8.3 (6-22) Glucose 107 H (70-100) mg/dL Calcium 8.4 (8.4-10.2) mg/dL Magnesium (1.6-2.3) mg/dL Total Bilirubin 0.5 (0.2-1.3) mg/dL AST 14 L (17-59) IU/L ALT 8 L (21-72) IU/L Alkaline Phosphatase 85 (38-126) U/L B-Natriuretic Peptide < 100 (<100) Total Protein 7.0 (6.3-8.2) g/dL Albumin 3.7 (3.5-5.0) g/dL Globulin 3.3 (1.7-4.1) g/dL Albumin/Globulin Ratio 1.1 (1.0-2.8) Procalcitonin (<0.5) ng/mL Chlamy pneumoniae PCR (Not Detect) Adenovirus (PCR) (Not Detect) B.parapertussis DNA PCR (Not Detect) Coronavirus OC43 (PCR) (Not Detect) Coronavirus HKU1 (PCR) (Not Detect) Coronavirus 229E (PCR) (Not Detect) Coronavirus NL63 (PCR) (Not Detect) Human Metapneumovir PCR (Not Detect) Influenza Type A (PCR) (Not Detect) Influenza Type B (PCR) (Not Detect) Influenza A & B (PCR) (Negative) M. pneumoniae (PCR) (Not Detect) Parainfluenza 1 (PCR) (Not Detect) Parainfluenza 2 (PCR) (Not Detect) Parainfluenza 3 (PCR) (Not Detect) Parainfluenza 4 (PCR) (Not Detect) RSV (PCR) (Not Detect) Entero/Rhino (PCR) (Not Detect) Anti-Streptolysin O Ab (< 200) IU/mL 01/12/19 01/12/19 01/13/19 Range/Units 16:50 21:39 07:30 WBC 3.0 L D (4.5-11.0) X10^3/uL RBC 4.11 L (4.5-5.9) X10^6/uL Hgb 10.5 L (13.5-17.5) g/dL Hct 33.0 L (41-53) % MCV 80.5 (80-100) fL MCH 25.5 L (26-34) PG MCHC 31.7 (30-36) % RDW 15.1 H (11.6-14.8) % Plt Count 144 L (150-400) X10^3/uL Neut % (Auto) 83.5 H (50-75) % Lymph % (Auto) 15.6 L (25-40) % Becker % (Auto) 0.8 L (3-14) % Eos % (Auto) 0.0 L (2-4) % Baso % (Auto) 0.1 (0-2) % Neut # (Auto) 2500 (2847-6100) /uL Lymph # (Auto) 500 L (2622-8678) /uL Becker # (Auto) 0 (0-900) /uL Eos # (Auto) 0 (0-450) /uL Baso # (Auto) 0 (0-100) /uL ABG pH 7.33 L (7.35-7.45) ABG pCO2 58.4 H (35-45) mmHg ABG pO2 77 L (80-100) mmHg ABG HCO3 31 H (22-26) mmol/L ABG Total CO2 33 H (21-31) mmol/L ABG O2 Saturation 94 L (95-100) % ABG Base Excess 5.0 H (-2-2) mmol/L FiO2 28 Sodium (137-145) mmol/L Potassium (3.4-5.1) mmol/L Chloride (98-107) mmol/L Carbon Dioxide (22-32) mmol/L BUN (9-20) mg/dL Creatinine (0.66-1.25) mg/dL Estimated GFR (>60) mL/min BUN/Creatinine Ratio (6-22) Glucose (70-100) mg/dL Calcium (8.4-10.2) mg/dL Magnesium (1.6-2.3) mg/dL Total Bilirubin (0.2-1.3) mg/dL AST (17-59) IU/L ALT (21-72) IU/L Alkaline Phosphatase (38-126) U/L B-Natriuretic Peptide (<100) Total Protein (6.3-8.2) g/dL Albumin (3.5-5.0) g/dL Globulin (1.7-4.1) g/dL Albumin/Globulin Ratio (1.0-2.8) Procalcitonin (<0.5) ng/mL Chlamy pneumoniae PCR (Not Detect) Adenovirus (PCR) (Not Detect) B.parapertussis DNA PCR (Not Detect) Coronavirus OC43 (PCR) (Not Detect) Coronavirus HKU1 (PCR) (Not Detect) Coronavirus 229E (PCR) (Not Detect) Coronavirus NL63 (PCR) (Not Detect) Human Metapneumovir PCR (Not Detect) Influenza Type A (PCR) (Not Detect) Influenza Type B (PCR) (Not Detect) Influenza A & B (PCR) Negative (Negative) M. pneumoniae (PCR) (Not Detect) Parainfluenza 1 (PCR) (Not Detect) Parainfluenza 2 (PCR) (Not Detect) Parainfluenza 3 (PCR) (Not Detect) Parainfluenza 4 (PCR) (Not Detect) RSV (PCR) (Not Detect) Entero/Rhino (PCR) (Not Detect) Anti-Streptolysin O Ab (< 200) IU/mL 01/13/19 01/13/19 01/13/19 Range/Units 07:30 09:12 13:28 WBC (4.5-11.0) X10^3/uL RBC (4.5-5.9) X10^6/uL Hgb (13.5-17.5) g/dL Hct (41-53) % MCV (80-100) fL MCH (26-34) PG MCHC (30-36) % RDW (11.6-14.8) % Plt Count (150-400) X10^3/uL Neut % (Auto) (50-75) % Lymph % (Auto) (25-40) % Becker % (Auto) (3-14) % Eos % (Auto) (2-4) % Baso % (Auto) (0-2) % Neut # (Auto) (6705-1610) /uL Lymph # (Auto) (8917-4664) /uL Becker # (Auto) (0-900) /uL Eos # (Auto) (0-450) /uL Baso # (Auto) (0-100) /uL ABG pH (7.35-7.45) ABG pCO2 (35-45) mmHg ABG pO2 (80-100) mmHg ABG HCO3 (22-26) mmol/L ABG Total CO2 (21-31) mmol/L ABG O2 Saturation (95-100) % ABG Base Excess (-2-2) mmol/L FiO2 Sodium (137-145) mmol/L Potassium (3.4-5.1) mmol/L Chloride (98-107) mmol/L Carbon Dioxide (22-32) mmol/L BUN (9-20) mg/dL Creatinine (0.66-1.25) mg/dL Estimated GFR (>60) mL/min BUN/Creatinine Ratio (6-22) Glucose (70-100) mg/dL Calcium (8.4-10.2) mg/dL Magnesium (1.6-2.3) mg/dL Total Bilirubin (0.2-1.3) mg/dL AST (17-59) IU/L ALT (21-72) IU/L Alkaline Phosphatase (38-126) U/L B-Natriuretic Peptide (<100) Total Protein (6.3-8.2) g/dL Albumin (3.5-5.0) g/dL Globulin (1.7-4.1) g/dL Albumin/Globulin Ratio (1.0-2.8) Procalcitonin < 0.05 (<0.5) ng/mL Chlamy pneumoniae PCR Not detected (Not Detect) Adenovirus (PCR) Not detected (Not Detect) B.parapertussis DNA PCR Not detected (Not Detect) Coronavirus OC43 (PCR) Not detected (Not Detect) Coronavirus HKU1 (PCR) Not detected (Not Detect) Coronavirus 229E (PCR) Not detected (Not Detect) Coronavirus NL63 (PCR) Not detected (Not Detect) Human Metapneumovir PCR Not detected (Not Detect) Influenza Type A (PCR) Not detected (Not Detect) Influenza Type B (PCR) Not detected (Not Detect) Influenza A & B (PCR) (Negative) M. pneumoniae (PCR) Not detected (Not Detect) Parainfluenza 1 (PCR) Not detected (Not Detect) Parainfluenza 2 (PCR) Not detected (Not Detect) Parainfluenza 3 (PCR) Not detected (Not Detect) Parainfluenza 4 (PCR) Not detected (Not Detect) RSV (PCR) Not detected (Not Detect) Entero/Rhino (PCR) Not detected (Not Detect) Anti-Streptolysin O Ab 246 H (< 200) IU/mL 01/15/19 01/15/19 01/15/19 Range/Units 05:10 05:10 05:10 WBC 4.7 D (4.5-11.0) X10^3/uL RBC 3.61 L (4.5-5.9) X10^6/uL Hgb 9.2 L (13.5-17.5) g/dL Hct 28.8 L (41-53) % MCV 79.9 L (80-100) fL MCH 25.6 L (26-34) PG MCHC 32.0 (30-36) % RDW 14.8 (11.6-14.8) % Plt Count 106 L (150-400) X10^3/uL Neut % (Auto) 61.6 D (50-75) % Lymph % (Auto) 26.7 (25-40) % Becker % (Auto) 11.3 (3-14) % Eos % (Auto) 0.1 L (2-4) % Baso % (Auto) 0.3 (0-2) % Neut # (Auto) 2900 (6946-8131) /uL Lymph # (Auto) 1300 (8639-7208) /uL Becker # (Auto) 500 (0-900) /uL Eos # (Auto) 0 (0-450) /uL Baso # (Auto) 0 (0-100) /uL ABG pH (7.35-7.45) ABG pCO2 (35-45) mmHg ABG pO2 (80-100) mmHg ABG HCO3 (22-26) mmol/L ABG Total CO2 (21-31) mmol/L ABG O2 Saturation (95-100) % ABG Base Excess (-2-2) mmol/L FiO2 Sodium 139 (137-145) mmol/L Potassium 4.0 (3.4-5.1) mmol/L Chloride 101 (98-107) mmol/L Carbon Dioxide 35 H (22-32) mmol/L BUN 18 (9-20) mg/dL Creatinine 0.60 L (0.66-1.25) mg/dL Estimated GFR > 60.0 (>60) mL/min BUN/Creatinine Ratio 30.0 H (6-22) Glucose 90 (70-100) mg/dL Calcium 8.2 L (8.4-10.2) mg/dL Magnesium 2.5 H (1.6-2.3) mg/dL Total Bilirubin 0.2 (0.2-1.3) mg/dL AST 10 L (17-59) IU/L ALT < 6 L (21-72) IU/L Alkaline Phosphatase 61 (38-126) U/L B-Natriuretic Peptide (<100) Total Protein 6.3 (6.3-8.2) g/dL Albumin 3.3 L (3.5-5.0) g/dL Globulin 3.0 (1.7-4.1) g/dL Albumin/Globulin Ratio 1.1 (1.0-2.8) Procalcitonin < 0.05 (<0.5) ng/mL Chlamy pneumoniae PCR (Not Detect) Adenovirus (PCR) (Not Detect) B.parapertussis DNA PCR (Not Detect) Coronavirus OC43 (PCR) (Not Detect) Coronavirus HKU1 (PCR) (Not Detect) Coronavirus 229E (PCR) (Not Detect) Coronavirus NL63 (PCR) (Not Detect) Human Metapneumovir PCR (Not Detect) Influenza Type A (PCR) (Not Detect) Influenza Type B (PCR) (Not Detect) Influenza A & B (PCR) (Negative) M. pneumoniae (PCR) (Not Detect) Parainfluenza 1 (PCR) (Not Detect) Parainfluenza 2 (PCR) (Not Detect) Parainfluenza 3 (PCR) (Not Detect) Parainfluenza 4 (PCR) (Not Detect) RSV (PCR) (Not Detect) Entero/Rhino (PCR) (Not Detect) Anti-Streptolysin O Ab (< 200) IU/mL Discharge Plan Departure Patient Disposition: Admitted As Inpatient Clinical Impression: Hospital acquired PNA Discharge Date/Time: 01/12/19 18:19 Interventions: ED Discharge Assessment Last Done: 01/12/19 18:19 Instructions: DI for Heart Failure, DI for Pneumonia -- Adult, DI for Pressure Sores Referrals: Rama Hernández MD [Primary Care Provider] - Admit Date/Time: 01/12/19 17:48 Admit Provider: Niurka Cobos
--- NOTE | 2019-01-12 17:10 | PC.NURSE ---
FIELD MARKETING COORDINATOR Note: Patient called and asked for anxiety medication then requested orange juice.
[2019-01-12 17:14] LABS: Influenza A and B by PCR Rapid Negative (Negative)
[2019-01-12] MEDS: methylPREDNISolone 125 MG/2 ML VIAL IV (17:44)
[2019-01-12] MEDS: OLANZapine ODT 10 MG TAB 15 MG PO (17:44)
--- NOTE | 2019-01-12 17:45 | PC.NURSE ---
Patient requesting another breathing treatment, I called Rt and informed her.
[2019-01-12] MEDS: PIPERACILLIN-TAZO 3.375 GM/50 ML FROZ.PIGGY IV (17:57)
[2019-01-12] MEDS: ACETAMINOPHEN 325 MG TABLET 650 MG PO (18:04)
--- NOTE | 2019-01-12 18:04 | PC.NURSE ---
ASBESTOS ABATEMENT WORKER Note: Patient called and requested juice. Doctor specified no more juice because of sugars so provided with water.
[2019-01-12] MEDS: levoFLOXacin 750 MG/150 ML PIGGYBACK 100 MG IV (18:45)
--- NOTE | 2019-01-12 21:48 | P.HP_ITS ---
History of Present Illness Date Patient Seen: 01/12/19 Time Patient Seen: 21:39 Chief complaint: Asthma Narrative: A 38-year-old male presents with increasing shortness of breath and wheezing. He has a long history of asthma and is on chronic oxygen also he has some underlying pulmonary hypertension noted by echo a few months ago. He was discharged from the hospital about 6 weeks ago he was here for prolonged period of time with decubitus ulcers. He was discharged to a nursing facility he was there for a few weeks and then was discharged home. He has been home for the last several weeks. He had been doing well up until just the last few days when he has had increasing shortness of breath some low-grade fevers increasing cough. He is on 2 L of oxygen at home chronically he does not use any CPAP or BiPAP. He has been following with wound Care still as an out patient for his buttocks wounds. Patient History Medical History (Updated 01/12/19 @ 21:42 by Otoniel Richardson MD) Pulmonary hypertension (Chronic) Anxiety (Chronic) Asthma (Chronic) Chronic skin ulcer (Chronic) Methadone use disorder, mild, in controlled environment (Chronic) Morbid obesity (Chronic) Surgical History H/O vertebral fracture repair (Chronic) History of hip surgery (Chronic) Family History Mother Diabetes mellitus Father No problems noted. Social History household members: significant other Smoking Status: Never smoker Family & Social History Family History Mother Diabetes mellitus Father No problems noted. Social History: household members significant other Prior Living Arrangements House Safety & Behavioral: Feels Safe in Current Yes Environment Been Physically Hurt or No Threatened By a Person Suicidal Ideation Description None Suicide Plan Description No Plan Tobacco & Substance use: Tobacco type cannabis/marijuana Smoking Status Never smoker alcohol intake frequency 0-2 drinks per day Substance Use Type does not use Meds Home Medications Medication Instructions Recorded Confirmed Type fluticasone propion-salmeterol 1 puff INH BID #2 inh 04/28/17 01/12/19 Rx [Advair Diskus] duloxetine [Cymbalta] 30 mg PO DAILY #90 cap 09/15/18 01/12/19 Rx gabapentin [Neurontin] 300 mg PO TID #180 cap 09/15/18 01/12/19 Rx acetaminophen 650 mg PO Q6HR PRN #30 tab 11/26/18 01/12/19 Rx diphenhydramine HCl [Allergy 25 mg PO Q6HR PRN #30 tab 11/26/18 01/12/19 Rx (diphenhydramine)] methadone 75 mg PO DAILY #56 tab 11/26/18 01/12/19 Rx nystatin [Nystop] 1 applic TOPICAL TID PRN #1 pkg 11/26/18 01/12/19 Rx olanzapine 15 mg PO DAILY #10 tab 01/11/19 01/12/19 Rx albuterol sulfate 3 ml INHALATION QID PRN 01/12/19 01/12/19 History albuterol sulfate [ProAir HFA] 2 - 4 puff INHALATION Q4-6H PRN 01/12/19 01/12/19 History prednisone 5 mg PO BID 01/12/19 01/12/19 History Allergies Allergy/AdvReac Type Severity Reaction Status Date / Time NSAIDS (Non-Steroidal Allergy Unknown ASTHMA Verified 01/12/19 16:17 Anti-Inflamma FLARE UPS [NSAIDS (NON-STEROIDAL ANTI-INFLAMMA] ibuprofen AdvReac Mild nausea, GI Verified 01/12/19 16:17 upset Review of Systems Constitutional Constitutional: Reports daytime sleepiness, Reports lack of energy and Reports malaise Eyes Eyes: Reports system reviewed; no additional complaints, except as documented ENT Ears, Nose, Mouth, and Throat: Yes system reviewed; no additional complaints, except as documented Cardiovascular Cardiovascular: Denies chest pain, Denies fast heart rate and Reports shortness of breath Respiratory Respiratory: Reports chest congestion, Reports excessive phlegm production and Reports dyspnea Gastrointestinal Gastrointestinal: Reports system reviewed and no additional complaints, except as documented Genitourinary Genitourinary: Reports system reviewed and no additional complaints, except as documented Musculoskeletal Musculoskeletal: Reports system reviewed; no additional complaints, except as documented Integumentary/Breasts Skin/Breast: Reports lesions and Reports skin ulcer Neurologic Neurologic: Reports system reviewed and no additional complaints, except as documented Psychiatric Psychiatric: Reports anxiety Endocrine Endocrine: Reports system reviewed and no additional complaints, except as documented Hematologic/Lymphatic Hematologic/Lymphatic: Reports system reviewed and no additional complaints, except as documented Allergic/Immunologic Allergic/Immunologic: Reports system reviewed and no additional complaints, except as documented Exam Vital Signs (past 8 hours): - 01/12/19 16:12 01/12/19 16:17 01/12/19 17:00 Temperature 100.1 F H Pulse Rate 111 H 103 H 104 H Respiratory Rate 26 H 18 18 Blood Pressure 126/65 Blood Pressure [Left Wrist] 116/84 Pulse Oximetry 88 L 97 95 01/12/19 17:30 01/12/19 18:04 01/12/19 18:30 Temperature 100.1 F H 100.5 F H Pulse Rate 111 H 94 H Respiratory Rate 18 20 Blood Pressure 122/56 L Blood Pressure [Left Wrist] 125/58 L Pulse Oximetry 93 01/12/19 20:08 01/12/19 21:27 Temperature 98.9 F Pulse Rate Respiratory Rate Blood Pressure Blood Pressure [Left Wrist] Pulse Oximetry 93 Oxygen Delivery Method Nasal Cannula Oxygen Flow Rate 2 Narrative Exam Narrative: Morbidly obese male he is somnolent he will awake easily with calling his name or gently shaking his arm. But he readily falls back asleep when I am talking to him Oropharynx clear Neck thick Lungs diffuse wheezing prolonged expiratory phase Heart distant heart tones Abdomen obese nontender Lower extremities 1+ edema Skin he does have stage II ulcerations on the buttocks bilateral these are chronic Neuro exam awake alert he is oriented when awake but he does fall asleep easily but the ease easily awoke and no focal deficits noted Objective Labs Result Diagrams: 01/12/19 15:31 01/12/19 15:31 Labs: Laboratory Results - last 24 hr 01/12/19 01/12/19 01/12/19 15:31 15:31 16:50 WBC 6.6 RBC 3.92 L Hgb 10.2 L Hct 31.7 L MCV 80.8 MCH 25.9 L MCHC 32.1 RDW 15.2 H Plt Count 233 Neut % (Auto) 79.6 H Lymph % (Auto) 13.2 L Alcorn % (Auto) 6.4 Eos % (Auto) 0.2 L Baso % (Auto) 0.6 Neut # (Auto) 5300 Lymph # (Auto) 900 L Alcorn # (Auto) 400 Eos # (Auto) 0 Baso # (Auto) 0 Sodium 139 Potassium 3.9 Chloride 102 Carbon Dioxide 31 BUN 5 L Creatinine 0.60 L Estimated GFR > 60.0 BUN/Creatinine Ratio 8.3 Glucose 107 H Calcium 8.4 Total Bilirubin 0.5 AST 14 L ALT 8 L Alkaline Phosphatase 85 Total Protein 7.0 Albumin 3.7 Globulin 3.3 Albumin/Globulin Ratio 1.1 Influenza A & B (PCR) Negative Assessment & Plan Assessment & Plan narrative: One. Pneumonia x-ray does show a bilateral pneumonia. Did he does have a mildly elevated temperature and white count is normal his lung exam is abnormal as got lots of wheezing so he has pneumonia with asthma exacerbation. Plan to place him on IV antibiotics IV steroids and bronchodilator treatments. Plan to check a blood gas and peak flow. Initially will be placed on observation status here overnight and if he does not improve then he will be switched to inpatient. 2. Chronic respiratory failure on chronic oxygen 3. Pulmonary hypertension with history of right-sided CHF plan to check a BNP 4. Chronic stage II decubitus ulcers buttocks plan to consult wound care 5. Anemia of chronic disease stable hematocrit 31 5. Chronic opioid dependence on chronic methadone he is having increased somnolence I will decrease his methadone from 75 down to 70 7. Morbid obesity stable calorie restriction 1200 calories 8. History of QT prolongation mildly he is on methadone lands a Pean and duloxetine. We will avoid other QT prolonging agents. 9. DVT prophylaxis on Lovenox 10. Code status full code Time Spent With Patient Time with patient: Greater than 35 minutes
[2019-01-12 22:03] LABS: B Type Natriuretic Peptide < 100 (<100)
[2019-01-12 22:07] LABS: Fractionated Inspired Oxygen 28; HCO3 ABG 31 mmol/L (22-26); Oxygen Saturation ABG 94 % (95-100); PCO2 ABG 58.4 mmHg (35-45); PO2 ABG 77 mmHg (80-100); TCO2 ABG 33 mmol/L (21-31); pH ABG 7.33 (7.35-7.45)
[2019-01-12] MEDS: ENOXAPARIN 40 MG/0.4 ML SYRINGE SUBCUT (22:51)
--- NOTE | 2019-01-12 22:59 | PC.NURSE ---
pt arrived 1830, A&OX3. 2L 95%. LS wheezy, coarse, crackles. pt uses home O2. SBA to the bedside commode. oriented pt to the room. call light in reach. bed alarm active.
[2019-01-13] VITALS (17 sets, daily range): BP systolic 110–135; BP diastolic 58–80; PULSE 68–90; RESP 16–20; TEMP 36.3–36.8; O2SAT 86–100
[2019-01-13] MEDS: CEFTRIAXONE 2 GM/50 ML FROZ.PIGGY IV (01:30)
[2019-01-13] MEDS: methylPREDNISolone 125 MG/2 ML VIAL 60 MG IV ×3 (01:31→17:16)
[2019-01-13] MEDS: ALBUTEROL 2.5 MG/3 ML NEB (ADULT) INH ×6 (01:59→22:37)
--- NOTE | 2019-01-13 07:18 | P.PN_ITS ---
Subjective Date Patient Seen: 01/13/19 Interval history: Babatunde Fitzgerald is a 38-year-old male with a past medical history significant for morbid obesity, chronic respiratory failure secondary to asthma on chronic prednisone, obesity hypoventilation syndrome and RAJESH; chronic pain with methadone dependence, and chronic decubitus pressure ulcerations of scrotum and posterior thighs who presented for worsening shortness of breath. The patient is resting in bed comfortably and in no acute distress. He reports his breathing is ?not good.? However, he is on his baseline oxygen requirements and does not appear short of breath and has very little wheeze. He denies headache, chest pain, abdominal pain, nausea, vomiting, fever, chills, dysuria, diarrhea or constipation. He or she is voiding and eliminating without difficulty. He or she is up ambulating without or with assistance. Exam Vital Signs (past 8 hours): - 01/13/19 01:28 01/13/19 01:57 01/13/19 01:59 Temperature 97.3 F L Pulse Rate 81 78 Respiratory Rate 20 18 Blood Pressure 134/65 Pulse Oximetry 99 95 93 01/13/19 06:47 Temperature 97.9 F Pulse Rate 90 Respiratory Rate 19 Blood Pressure 113/66 Pulse Oximetry 96 Oxygen Delivery Method Nasal Cannula Oxygen Flow Rate 3 Narrative Exam Narrative: General: Young morbidly obese gentleman lying in bed and in no acute distress, well-developed, well-nourished, alert but nods off easily during mid conversation. HEENT: Normocephalic, atraumatic. External ears without defect. Pupils equal, round, and reactive to light. Anicteric sclerae, moist conjunctivae, and no lid lag. Several excoriations on face. Neck: Supple with full range of motion. No lymphadenopathy or thyromegaly. Cardiovascular: Heart sounds distant but appear regular rate and rhythm without murmurs, rubs, or gallops appreciated. Pulmonary: Normal respiratory effort with no use of accessory muscles. Abdomen: Soft, obese, bowel sounds present, nontender, nondistended. No hepatosplenomegaly or masses appreciated. Extremities: No clubbing or cyanosis. Brawny edema to knees bilaterally. Skin: Normal temperature, turgor, and texture; several previously stage III decubitus pressure ulcerations of posterior thighs and scrotum in various stages of healing. Neurological: Cranial nerves grossly intact. Psychiatric: Depressed mood and flat affect. Significantly somnolent but easily arousable. Poor insight into disease process. 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 Objective Labs Result Diagrams: 01/13/19 07:30 01/12/19 15:31 Labs: Laboratory Results - last 24 hr 01/12/19 01/12/19 01/12/19 15:31 15:31 15:31 WBC 6.6 RBC 3.92 L Hgb 10.2 L Hct 31.7 L MCV 80.8 MCH 25.9 L MCHC 32.1 RDW 15.2 H Plt Count 233 Neut % (Auto) 79.6 H Lymph % (Auto) 13.2 L Hamlin % (Auto) 6.4 Eos % (Auto) 0.2 L Baso % (Auto) 0.6 Neut # (Auto) 5300 Lymph # (Auto) 900 L Hamlin # (Auto) 400 Eos # (Auto) 0 Baso # (Auto) 0 ABG pH ABG pCO2 ABG pO2 ABG HCO3 ABG Total CO2 ABG O2 Saturation ABG Base Excess FiO2 Sodium 139 Potassium 3.9 Chloride 102 Carbon Dioxide 31 BUN 5 L Creatinine 0.60 L Estimated GFR > 60.0 BUN/Creatinine Ratio 8.3 Glucose 107 H Calcium 8.4 Total Bilirubin 0.5 AST 14 L ALT 8 L Alkaline Phosphatase 85 B-Natriuretic Peptide < 100 Total Protein 7.0 Albumin 3.7 Globulin 3.3 Albumin/Globulin Ratio 1.1 Influenza A & B (PCR) 01/12/19 01/12/19 16:50 21:39 WBC RBC Hgb Hct MCV MCH MCHC RDW Plt Count Neut % (Auto) Lymph % (Auto) Hamlin % (Auto) Eos % (Auto) Baso % (Auto) Neut # (Auto) Lymph # (Auto) Hamlin # (Auto) Eos # (Auto) Baso # (Auto) ABG pH 7.33 L ABG pCO2 58.4 H ABG pO2 77 L ABG HCO3 31 H ABG Total CO2 33 H ABG O2 Saturation 94 L ABG Base Excess 5.0 H FiO2 28 Sodium Potassium Chloride Carbon Dioxide BUN Creatinine Estimated GFR BUN/Creatinine Ratio Glucose Calcium Total Bilirubin AST ALT Alkaline Phosphatase B-Natriuretic Peptide Total Protein Albumin Globulin Albumin/Globulin Ratio Influenza A & B (PCR) Negative Assessment & Plan Assessment & Plan narrative: Babatunde Fitzgerald is a 38-year-old male with a past medical history significant for morbid obesity, chronic respiratory failure secondary to asthma on chronic prednisone, obesity hypoventilation syndrome and RAJESH; chronic pain with methadone dependence, and chronic decubitus pressure ulcerations of scrotum and posterior thighs who presented for worsening shortness of breath. 1. Bilateral hospital acquired bacterial pneumonia with asthma exacerbation, present on admission. Active. -Presented with worsening shortness of breath. Recently hospitalized at [facility] for asthma exacerbation. -Chest x-ray demonstrated multifocal pneumonia. -Ordered complete pneumonia workup including: Respiratory viral PCR, strep pneumoniae and Legionella urine antigens, sputum culture, and blood culture x2, pending. -Continue Zosyn 3.375 g every 8 hours for broad-spectrum coverage of gram- positive, Gram-negative, anaerobes, and Pseudomonas. -Continue IV steroids with methylprednisolone decreased from 60 mg to 40 mg every 8 hours and bronchodilator treatments. 2. Chronic respiratory failure on chronic oxygen, present on admission. Stable. -ABG demonstrated pH 7.33, pCO2 58.4, PO2 77, HC03 31 with SpO2 94% on FiO2 0.28. -Continue supplemental oxygen as needed and titrate off as tolerated. Oxygen saturation goal 88-92%. 3. Pulmonary hypertension and right sided CHF, chronic and secondary to morbid obesity, OHS, RAJESH, and asthma, present on admission. Stable. -Echocardiogram demonstrated right ventricle is moderate to severely dilated with moderately reduced right ventricular systolic function with severe biatrial enlargement. -BNP < 100. -Continue supplemental oxygen as needed and titrate off as tolerated. Oxygen saturation goal 88-92%. 4. Chronic stage II decubitus ulcers buttocks -Consulted wound care, pending. 5. Anemia of chronic disease, chronic, present on admission. Stable. -Initial hemoglobin 10.2 and hematocrit 31.7 and stable. No overt signs of bleeding. -Hold Iron and vitamin-C supplementation due to acute infection. -Continue to periodically monitor. 6. Chronic opiate dependence on methadone, present on admission. Stable. -Continue methadone at decreased dose of 65 mg daily due to significant somnolence. 7. Morbid obesity, chronic, present on admission. Stable. -BMI 71 on admission. -Continue 1200 calorie restriction. Limit snacks to 2 per day and follow a heart healthy diet. NO CHIPS, JUICE, POPSICLES, ICE CREAM. -Mobilize out of bed as much as he can tolerate. Continue physical therapy and occupational therapy as much as possible. -Patient will benefit from slow taper of methadone to lowest possible dose to treat pain. 8. Depression and anxiety, chronic, present on admission. Stable. -Continue home Duloxetine and Olanzapine 15 mg daily not 20 mg. Not on lorazepam as an outpatient. -Continue to follow up with psychiatrist outpatient. 9. 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 Stable. -Patient is on methadone, olanzapine, and duloxetine. -Avoid other QTc prolonging agents such as Zofran, etc. if possible. Disposition: Likely discharge in several days depending on improvement in pneumonia and asthma exacerbation.
[2019-01-13 07:38] LABS: Add Manual Diff / Slide Review NO; Basophils Absolute Auto 0 /uL (0-100); Basophils Percent Auto 0.1 % (0-2); Eosinophils Absolute Auto 0 /uL (0-450); Hemoglobin 10.5 g/dL (13.5-17.5); Lymphocytes Absolute Auto 500 /uL (1100-4500); Lymphocytes Percent Auto 15.6 % (25-40); Mean Corpuscular HGB Conc 31.7 % (30-36); Mean Corpuscular Hemoglobin 25.5 PG (26-34); Mean Corpuscular Volume 80.5 fL (80-100); Monocytes Absolute Auto 0 /uL (0-900); Monocytes Percent Auto 0.8 % (3-14); Neutrophils Absolute Auto 2500 /uL (1500-7000); Neutrophils Percent Auto 83.5 % (50-75); Platelet Count 144 X10^3/uL (150-400); Red Blood Cell Count 4.11 X10^6/uL (4.5-5.9); Red Cell Distribution Width 15.1 % (11.6-14.8)
[2019-01-13 08:05] LABS: Procalcitonin < 0.05 ng/mL (<0.5)
[2019-01-13] MEDS: PIPERACILLIN-TAZO 3.375 GM/50 ML FROZ.PIGGY IV ×3 (08:07→22:44)
[2019-01-13] MEDS: DOCUSATE 100 MG CAPSULE PO (08:08)
[2019-01-13] MEDS: FLUTICASONE/SALMETEROL 500/50 14 PUFF DISKUS INH ×2 (08:08→20:10)
[2019-01-13] MEDS: DULOXETINE 30 MG CAPSULE PO (08:08)
[2019-01-13] MEDS: ENOXAPARIN 40 MG/0.4 ML SYRINGE SUBCUT ×2 (08:08→21:55)
[2019-01-13] MEDS: GABAPENTIN 300 MG CAPSULE PO ×3 (08:09→21:55)
[2019-01-13] MEDS: OLANZapine 2.5 MG TABLET 15 MG PO (08:09)
[2019-01-13] MEDS: METHADONE 10 MG TABLET 70 MG PO (08:27)
--- NOTE | 2019-01-13 12:54 | PC.NURSE ---
Wound Ostomy Nurse Consult Note Babatunde is not knew to me as I have seen him during several hospital stays. The last hospital stay after a OR surgical debridement on his posterior thighs we place a I wound vac. He has had several partial thickness ulcerations on his scrotum and today he returns with the scrotal ulcerations which have be photographed by the nursing staff. I am here to evaluate the posterior thing wounds. Babatunde is in bed and remembers me. He is very cooperative with lifting his legs for me and his nurse to exam his bi-lat leg wounds. We took photos and measured the wounds. His Right posterior thigh wound measures 7.0 x 5.0 x 0.2. The wound base is beefy red with granulation tissue. There is no slough. There is a moderate amount of sero-sanguenous drainage. He did not have a dressing on. There sarah-wound margins are attached without redness. The Left posterior thigh measures 5.0 x 3.1 x 0.1. This wound is also beefy red with granulation tissue without slouch. The wound edges are attached and without any redness or induration. I would recommend using Aquacel to both leg wounds and covering them with a border foam. I would recommend using zinc past to his groin wounds. Babatunde will shower shortly and will be on a air fluidized mattress and bariatric bed which will help with moisture control and off-loading. I examined Babatunde's heels and there are no signs of pressure injury.
[2019-01-13 14:43] LABS: Adenovirus Not Detected (Not Detect); Bordetella pertussis Not Detected (Not Detect); Chlamydophila pneumoniae Not Detected (Not Detect); Coronavirus 229E Not Detected (Not Detect); Coronavirus HKU1 Not Detected (Not Detect); Coronavirus NL 63 Not Detected (Not Detect); Coronavirus OC43 Not Detected (Not Detect); Human Metapneumovirus Not Detected (Not Detect); Human Rhinovirus/Enterovirus Not Detected (Not Detect); Influenza A Not Detected (Not Detect); Influenza B Not Detected (Not Detect); Mycoplasma pneumoniae Not Detected (Not Detect); Parainfluenza Virus 1 Not Detected (Not Detect); Parainfluenza Virus 2 Not Detected (Not Detect); Parainfluenza Virus 3 Not Detected (Not Detect); Parainfluenza Virus 4 Not Detected (Not Detect); Respiratory Syncytial Virus Not Detected (Not Detect)
[2019-01-13] MEDS: SODIUM CHLORIDE 0.9% FLUSH 10 ML IV ×2 (14:59→21:55)
--- NOTE | 2019-01-13 15:10 | CM.IDA ---
Addendum entered by JOSÉ LUIS Palmer 01/13/19 15:17: Pt DC from to [facility] 11.03.18. He had one ER visit 01.11.19 for anxiety. Original Note: Initial DCP Assessment Note: Pt is a 38 yo male, resident of [place]. Pt is 5'4 and approx 415 pounds, admitted w/asthma exacerbation and hospital acquired pneumonia. PCP: Rama Hernández Payer: [place] Reviewed chart. Attempted to meet w/pt this afternoon and staff were preparing him for a shower. Pt well known to this CM team from prior admissions, he DC from to [facility] in November 2018 . Pt presents from home, date of DC from [facility] unknown at this time. This MAINTENANCE SUPERVISOR [employer]LECT[employer]ICAL following closely and will plan another attempt at DCP assessment Wednesday. JOSÉ LUIS Palmer Discharge Planning/Care Management CM Discharge Assessment Start: 01/13/19 14:43 Freq: Status: Active Protocol: Document 01/13/19 15:05 SHAHLA (Rec: 01/13/19 15:09 SHAHLA [id number]) Discharge Planning Assessment Assigned Asset Analyst JOSÉ LUIS Lowery DPOA/Assigned Designee Name cassidy Patel Contact Information [phone] Advance Directives? No Advance Directives on File No History Provided By Medical Record Prior Living Arrangements House Household Members significant other Type of transporation used prior to Relies on Others admit Independent with ADL's No Is patient alert and oriented? Yes Referrals Initiated Other Review Status In Process
--- NOTE | 2019-01-13 15:14 | PC.NURSE ---
Pts Respiratory swab done around 1230. Results back and negative. Pt given a shower about an hour ago. New bed set up and put in room. Pts wounds to back side looked at by fabric machine operator Kiersten. Wounds look a lot better than before when patient was here. He does has some small opens area's to srotum area that are open and beefy red. Pt lies on his back for most of the shift. He has been using the urinal at bedside. He will need a urine sample to rule out legionella and passed on to willy shift dry cleaning supervisor to obtain. Pt is lying in bed now. He has been compliant and cooperative today. Pt had a bm earlier this morning and has denied pain for most of the shift. His iv is patent and working well.
[2019-01-14] VITALS (16 sets, daily range): BP systolic 120–145; BP diastolic 60–71; PULSE 57–88; RESP 16–20; TEMP 36.3–36.9; O2SAT 2–96
[2019-01-14] MEDS: PIPERACILLIN-TAZO 3.375 GM/50 ML FROZ.PIGGY IV (06:49)
[2019-01-14] MEDS: SODIUM CHLORIDE 0.9% FLUSH 10 ML IV ×3 (06:50→21:20)
[2019-01-14] MEDS: ALBUTEROL 2.5 MG/3 ML NEB (ADULT) INH ×6 (07:14→21:27)
[2019-01-14] MEDS: FLUTICASONE/SALMETEROL 500/50 14 PUFF DISKUS INH ×2 (07:14→21:20)
[2019-01-14] MEDS: DULOXETINE 30 MG CAPSULE PO (07:54)
[2019-01-14] MEDS: GABAPENTIN 300 MG CAPSULE PO ×2 (07:55→21:20)
[2019-01-14] MEDS: ENOXAPARIN 40 MG/0.4 ML SYRINGE SUBCUT ×2 (07:55→21:20)
[2019-01-14] MEDS: OLANZapine 2.5 MG TABLET 15 MG PO (07:56)
[2019-01-14] MEDS: METHADONE 10 MG TABLET 65 MG PO (08:03)
--- NOTE | 2019-01-14 11:29 | PT.IIE ---
Current Diagnoses Pneumonia due to other specified bacteria (01/12/19) Surgical History (Last Reviewed 01/12/19 @ 21:27 by ANTONETTE Messer) H/O vertebral fracture repair (Chronic) History of hip surgery (Chronic) Medical History (Last Updated 01/12/19 @ 21:42 by Otoniel Richardson MD) Pulmonary hypertension (Chronic) Anxiety (Chronic) Asthma (Chronic) Chronic skin ulcer (Chronic) Methadone use disorder, mild, in controlled environment (Chronic) Morbid obesity (Chronic) Physical Therapy Inpatient Evaluation/Re-Eval M1 PT/OT-IP Prior Functional Status Start: 01/14/19 11:56 Freq: NEEDED Status: Active Protocol: Document 01/14/19 11:29 AB (Rec: 01/14/19 12:12 AB [id number]) Medical Review Prior Functional Status Medical History Reviewed Yes Communication able to make needs known Mobility and Gait pt is able to ambulate indoors using 4WW and uses an electric scooter for outdoor mobility Activities of Daily Living and IADL's pt's girlfriend assists him with dressing, showers Social History Household Members significant other Living Arrangements House Number of Floors (Floors) One Floor Home Environment Standard Height Toilet Walk in Shower Home Equipment Four Wheel Walker Power Wheelchair/Scooter Raised Toilet Seat Without Armrests Grab Bars Near Toilet Grab Bars In Shower M2 PT-IP Current Condition Start: 01/14/19 11:56 Freq: NEEDED Status: Active Protocol: Document 01/14/19 11:29 AB (Rec: 01/14/19 12:12 AB [id number]) Physical Therapy Current Condition Current Condition Evaluation Date 01/14/19 Treatment Diagnosis PNA; asthma with acute exacerbation; difficulty in walking Onset Date 01/12/19 Precautions Other Precautions contact precautions M3 PT-IP Subjective Start: 01/14/19 11:56 Freq: NEEDED Status: Active Protocol: Document 01/14/19 11:29 AB (Rec: 01/14/19 12:12 AB [id number]) Subjective Physical Therapy Visit Type Type Initial Evaluation Visit Start Time 11:29 Visit Stop Time 10:45 Total Visit Minutes 16 Number of RETAIL SALES MERCHANDISER Visits 0 Physical Therapy Visit Comments Patient Comments pt initially refusing PT but agreed after PT checked back on pt. M4 PT-IP Mobility and Gait Start: 01/14/19 11:56 Freq: NEEDED Status: Active Protocol: Document 01/14/19 11:29 AB (Rec: 01/14/19 12:12 AB [id number]) PT-Bed Mobility Assessment Supine to Sit Supine to Sit Standby Assistance Head of Bed Elevated Sit to Supine Sit to Supine Standby Assistance Head of Bed Elevated Scooting Scooting to Edge of Bed Standby Assistance PT-Transfer Assessment Sit to and From Stand Sit to and from Stand Standby Assistance 1 Person Assistance Use of Upper Extremities Equipment Transfer Assistive Device Gait Belt Front Wheeled Walker Orthotic/Prosthetic Devices or Brace: No Transfers Transfer Destination Toilet Transfer Technique pt ambulated using FWW Transfer Ability Level of Assist Standby Assistance Comments Mobility Comments pt requested to go back to bed after using the toilet. O2 sat after ambulation 91% Gait Assessment Gait Gait Assistance Required: Standby Assistance Distance (Feet) 10 Able to Maintain Weight Bearing Status Yes During Gait Assistive Devices Assistive Device Gait Belt Front Wheeled Walker Orthotic/Prosthetic Devices or Brace: No Gait Deviations General Gait Pattern Antalgic Decreased Stride Length Decreased Feet Clearance Factors Limiting Gait Function Factors Limiting Gait Function Decreased Activity Tolerance Comments Gait Comments pt ambulated bed<>toilet using FWW SBA 10 ft x 2. PT-Balance Assessment Sitting Balance and Reactions Static Sitting Balance Ability Good Dynamic Sitting Balance Ability Good Standing Balance and Reactions Static Standing Balance Ability Fair Dynamic Standing Balance Ability Fair Device Used FWW M5 PT-IP Objective Assessments Start: 01/14/19 11:56 Freq: NEEDED Status: Active Protocol: Document 01/14/19 11:29 AB (Rec: 01/14/19 12:12 AB [id number]) Orientation Orientation/Cognition Level of Alertness Alert Orientation Name Place Situation Language Function Ability No Deficits Noted Strength Lower Extremity Strength Assessment Within Functional Limits Muscle Tone Muscle Tone WNL Yes M6 PT-IP Treatment Start: 01/14/19 11:56 Freq: NEEDED Status: Active Protocol: Document 01/14/19 12:12 AB (Rec: 01/14/19 12:12 AB [id number]) Physical Therapy Treatment Education Education Provided Safety M7 PT-IP Assessment and Plan Start: 01/14/19 11:56 Freq: NEEDED Status: Active Protocol: Document 01/14/19 11:29 AB (Rec: 01/14/19 12:12 AB [id number]) PT Summary Assessment and Plan Potential Rehabilitation Potential Fair Summary Impairments Strength Balance Bed Mobility Transfers Gait Activity Tolerance Assessment Summary Pt requiring SBA with mobility but presents with decrease activity tolerance affecting function. pt plans to go home with his significant other to assist him. Goals Bed Mobility Goal Independent Transfer Goal Independent Four Wheeled Walker Gait Goal Independent Four Wheel Walker Gait Distance 50 Days to Meet Goals 3 Frequency of Treatment Frequency Of Treatment Twice a Day Treatment Plan Physical Therapy Treatment Plan Bed Mobility Training Transfer Training Gait Training Therapeutic Exercise Balance Retraining Discharge Planning Neuromuscular Re-ed Coordination Retraining Manual Therapy Recommendations To Nursing Amount of Assist Needed 1 Person Assist Discharge Recommendations PT Discharge Recommendations Home with Assistance
--- NOTE | 2019-01-14 13:11 | P.PN_ITS ---
Subjective Date Patient Seen: 01/14/19 Interval history: Babatunde Fitzgerald is a 38-year-old male with a past medical history significant for morbid obesity, chronic respiratory failure secondary to asthma on chronic prednisone, obesity hypoventilation syndrome and RAJESH; chronic pain with methadone dependence, and chronic decubitus pressure ulcerations of scrotum and posterior thighs who presented for worsening shortness of breath. The patient is resting in bed comfortably. He continues to be quite somnolent and reports he did not sleep well last night. He does admit to sleeping most of the day at home and staying up all night. He does complain of mild discomfort on his bottom. He continues to be on his baseline oxygen requirements of 1-2 L as needed during the day and continuous at night. He denies headache, shortness of breath, cough, chest pain, abdominal pain, nausea, vomiting, fever, chills, dysuria, diarrhea or constipation. He is voiding and eliminating without difficulty. He is up ambulating with assistance and PT/OT. Exam Vital Signs (past 8 hours): - 01/14/19 04:49 01/14/19 04:51 01/14/19 07:08 Temperature Pulse Rate Respiratory Rate Blood Pressure Pulse Oximetry 93 2 L 93 01/14/19 07:28 01/14/19 07:40 01/14/19 09:04 Temperature 98.0 F Pulse Rate 64 68 Respiratory Rate 16 18 Blood Pressure 123/64 Pulse Oximetry 95 94 94 01/14/19 10:18 01/14/19 11:30 Temperature 98.4 F Pulse Rate 66 70 Respiratory Rate 16 18 Blood Pressure 131/64 Pulse Oximetry 94 91 Oxygen Delivery Method Nasal Cannula Oxygen Flow Rate 1 Narrative Exam Narrative: General: Young morbidly obese gentleman lying in bed and in no acute distress, well-developed, well-nourished, continues to be significantly somnolent but arouses easily. HEENT: Normocephalic, atraumatic. External ears without defect. Pupils equal, round, and reactive to light. Anicteric sclerae, moist conjunctivae, and no lid lag. Several excoriations on face and dry skin. Neck: Supple with full range of motion. No lymphadenopathy or thyromegaly. Cardiovascular: Heart sounds distant but appear regular rate and rhythm without murmurs, rubs, or gallops appreciated. Pulmonary: Diminished throughout but clear to auscultation bilaterally with occasional scattered rhonchi. Normal respiratory effort with no use of accessory muscles. Abdomen: Soft, obese, bowel sounds present, nontender, nondistended. No hepatosplenomegaly or masses appreciated. Extremities: No clubbing or cyanosis. Brawny edema to knees bilaterally. Skin: Normal temperature, turgor, and texture; several previous stage III decubitus pressure ulcerations of posterior thighs and scrotum in various stages of healing. Neurological: Cranial nerves grossly intact. Psychiatric: Depressed mood and flat affect. Significantly somnolent but easily arousable. Poor insight into disease process. 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 Objective Labs Result Diagrams: 01/13/19 07:30 01/12/19 15:31 Labs: Laboratory Results - last 24 hr 01/13/19 13:28 Chlamy pneumoniae PCR Not detected Adenovirus (PCR) Not detected B.parapertussis DNA PCR Not detected Coronavirus OC43 (PCR) Not detected Coronavirus HKU1 (PCR) Not detected Coronavirus 229E (PCR) Not detected Coronavirus NL63 (PCR) Not detected Human Metapneumovir PCR Not detected Influenza Type A (PCR) Not detected Influenza Type B (PCR) Not detected M. pneumoniae (PCR) Not detected Parainfluenza 1 (PCR) Not detected Parainfluenza 2 (PCR) Not detected Parainfluenza 3 (PCR) Not detected Parainfluenza 4 (PCR) Not detected RSV (PCR) Not detected Entero/Rhino (PCR) Not detected Assessment & Plan Assessment & Plan narrative: Babatunde Fitzgerald is a 38-year-old male with a past medical history significant for morbid obesity, chronic respiratory failure secondary to asthma on chronic prednisone, obesity hypoventilation syndrome and RAJESH; chronic pain with methadone dependence, and chronic decubitus pressure ulcerations of scrotum and posterior thighs who presented for worsening shortness of breath. 1. Bilateral hospital acquired bacterial pneumonia with asthma exacerbation, present on admission. Active. -Presented with worsening shortness of breath. Recently hospitalized at [facility] for asthma exacerbation. -Chest x-ray demonstrated interval worsening and early multifocal pneumonia. -Ordered complete pneumonia workup including: Respiratory viral PCR negative. Strep pneumoniae and Legionella urine antigens, pending. Sputum culture pending. Blood culture x2 has no growth to date. -Switched Zosyn to Augmentin twice daily until 01/18/2019 to complete pneumonia treatment course as patient is improving more quickly than anticipated. -Discontinued IV steroids and will start a quick prednisone taper back to patients 5 mg twice daily over the next several days. (40mg QD to 30 mg QD to 20mg QD to 5 mg BID). -Continue bronchodilator treatments. -Started loratadine for antihistamine effect and stopped Benadryl due to somnolence. Also started montelukast for mast cell stable is a rodriguez for seasonal allergy component of asthma. 2. Chronic respiratory failure on chronic oxygen, present on admission. Stable. -ABG demonstrated pH 7.33, pCO2 58.4, PO2 77, HC03 31 with SpO2 94% on FiO2 0.28. -Continue supplemental oxygen as needed and titrate off as tolerated. Oxygen saturation goal 88-92%. Patient is on baseline oxygen requirements 1-2 L as needed during the day and continuous at night. 3. Pulmonary hypertension and right sided CHF, chronic and secondary to morbid obesity, OHS, RAJESH, and asthma, present on admission. Stable. -Echocardiogram demonstrated right ventricle is moderate to severely dilated with moderately reduced right ventricular systolic function with severe biatrial enlargement. -BNP < 100. -Continue supplemental oxygen as needed and titrate off as tolerated. Oxygen saturation goal 88-92%. 4. Chronic stage II decubitus ulcers buttocks -Consulted wound care, pending. 5. Anemia of chronic disease, chronic, present on admission. Stable. -Initial hemoglobin 10.2 and hematocrit 31.7 and stable. No overt signs of bleeding. -Hold Iron and vitamin-C supplementation due to acute infection. May continue at time of discharge. -Continue to periodically monitor. 6. Chronic opiate dependence on methadone, present on admission. Stable. -Continue methadone but decreased further to 60 mg daily as patient continues to exhibit significant somnolence. Also discontinued Benadryl as above. 7. Morbid obesity, chronic, present on admission. Stable. -BMI 71 on admission. -Continue 1200 calorie restriction. Limit snacks to 2 per day and follow a heart healthy diet. NO CHIPS, JUICE, POPSICLES, ICE CREAM. -Mobilize out of bed as much as he can tolerate. Continue physical therapy and occupational therapy as much as possible. -Patient will benefit from slow taper down on methadone to lowest possible dose to treat pain. 8. Depression and anxiety, chronic, present on admission. Stable. -Continue home Duloxetine and Olanzapine 15 mg daily not 20 mg. Not on lorazepam as an outpatient. -Continue to follow up with outpatient psychiatrist. 9. 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 Stable. -Patient is on methadone, olanzapine, and duloxetine. -Avoid other QTc prolonging agents such as Zofran, etc. if possible. Disposition: Likely to discharge home with home health tomorrow once on PO antibiotics and quick steroid taper to complete treatment of pneumonia and asthma exacerbation, respectively.
[2019-01-14 13:33] LABS: Anti-Streptolysin O Antibody 246 IU/mL (< 200)
--- NOTE | 2019-01-14 13:50 | OT.IP.EVAL ---
Current Diagnoses Pneumonia due to other specified bacteria (01/12/19) Past Medical History (Last Updated 01/12/19 @ 21:42 by Otoniel Richardson MD) Pulmonary hypertension (Chronic) Anxiety (Chronic) Asthma (Chronic) Chronic skin ulcer (Chronic) Methadone use disorder, mild, in controlled environment (Chronic) Morbid obesity (Chronic) Surgical History (Last Reviewed 01/12/19 @ 21:27 by DELVIS MesserP-) H/O vertebral fracture repair (Chronic) History of hip surgery (Chronic) Occupational Therapy Inpatient Evaluation/Re-Eval M1 PT/OT-IP Prior Functional Status Start: 01/14/19 11:56 Freq: NEEDED Status: Active Protocol: Document 01/14/19 13:33 CGR (Rec: 01/14/19 13:50 CGR [email or web address]) Medical Review Prior Functional Status Medical History Reviewed Yes Communication able to make needs known Mobility and Gait pt is able to ambulate indoors using 4WW and uses an electric scooter for outdoor mobility Activities of Daily Living and IADL's pt's girlfriend assists him with dressing, showers Social History Household Members significant other Living Arrangements House Number of Floors (Floors) One Floor Number of Stairs To Enter/Railing? none Home Environment High Toilet Walk in Shower Home Equipment Four Wheel Walker Power Wheelchair/Scooter Raised Toilet Seat Without Armrests Shower Seat without Backrest Grab Bars Near Toilet Grab Bars In Shower Employment Status Unemployed Additional Social History Comment Disability M2 OT-IP Current Condition Start: 01/14/19 13:32 Freq: Status: Active Protocol: Document 01/14/19 13:33 CGR (Rec: 01/14/19 13:50 CGR [email or web address]) Occupational Therapy Current Condition Current Condition Evaluation Date 01/14/19 Treatment Diagnosis PNA M3 OT- IP Subjective and Pain Start: 01/14/19 13:32 Freq: Status: Active Protocol: Document 01/14/19 13:33 CGR (Rec: 01/14/19 13:50 CGR [email or web address]) OT- Subjective Occupational Therapy Visit Type Type Initial Evaluation Visit Start Time 10:30 Visit Stop Time 10:45 Total Visit Minutes 15 Occupational Therapy Visit Comments Patient Comments Pt agreeable to OT services with max encouragement OT Pain Assessment Pain When Pain Assessed At Rest Pain Present Pain Present Pain Reported Location Generalized Intensity 3 Scale Used Numeric (1 - 10) Description Dull Management Techniques Re-positioning M4 OT- IP ADL's Start: 01/14/19 13:32 Freq: Status: Active Protocol: Document 01/14/19 13:33 CGR (Rec: 01/14/19 13:50 CGR [email or web address]) OT ADL-Grooming General Evaluation Grooming Ability Independent Areas Needing Assistance Retrieving/Set-up of Grooming Items Face Washing Comments OT Grooming Comments Washed face in bed OT ADL-Oral Care Comments Oral Care Comments Pt declined, states he does not have teeth OT ADL-Dressing Comments OT Dressing Comments Pt declined, pt without clothing upon start and finish of session. OT ADL-Toileting General Evaluation Toileting Ability Standby Assistance Devices Toileting Assistive Devices Commode Comments OT Toileting Comments Pt had small BM seated on bariatric BSC. States he does not need to perform back pericare when his BMs are hard . Declined to perform back pericare x 2. M5 OT- IP IADL's Start: 01/14/19 13:32 Freq: Status: Active Protocol: Document 01/14/19 13:33 CGR (Rec: 01/14/19 13:50 CGR [email or web address]) OT-Instrumental Activities of Daily Living Home Safety Awareness Awareness of Need for Assistance at Home Good Awareness Ability to Problem Solve Emergency Able to Problem Solve Situations Medication Management Medication Management No Deficits Identified Meal Preparation Meal Preparation Caregiver Provides Assist Panel Cutter Panel Cutter Caregiver Provides Assist Driving Driving Caregiver Provides Assist M6 OT- IP Functional Cognition Start: 01/14/19 13:32 Freq: Status: Active Protocol: Document 01/14/19 13:33 CGR (Rec: 01/14/19 13:50 CGR [email or web address]) Cognitive Factors Limiting Selfcare Function Cognitive Ability Level of Alertness Alert Patient Orientation Name Age Birthday Month Date Year Day of Week Place Situation Attention Span Ability Capable of Focused Attention Unable to Sustain Attention Ability to Follow Commands Able to Follow Multi-Step Commands Memory Description No Deficits Noted Safety Awareness Underestimates Need for Assistance Problem Solving Ability No deficits Noted Executive Function Ability No Deficits Noted Abstract Thinking Ability Unable to Make Generalizations Cognitive Comments Cognitive Assessment Comments Pt appears intact however with poor judgement on personal self care. OT- Vision and Hearing OT- Hearing Assessment OT- Hearing Assessment WFL OT- Vision Assessment Visual Acuity WFL Visual Attentiveness WFL Occular Pursuits WFL Visual Convergence WFL Visual Sanchez WFL M7 OT- IP Mobility and Balance Start: 01/14/19 13:32 Freq: Status: Active Protocol: Document 01/14/19 13:33 CGR (Rec: 01/14/19 13:50 CGR [email or web address]) OT- Bed Mobility Assessment Rolling Type of Rolling Roll to Right Level of Assistance Independent Bedrails Supine to Sit Supine to Sit Assist Independent Bedrails Sit to Supine Sit to Supine Assist Independent Bedrails Scooting Scooting to Edge of Bed Independent Bedrails Scooting Up and Down in Bed Independent Bedrails OT-Transfer Assessment Sit to and From Stand Sit to and from Stand Standby Assistance Use of Upper Extremities Transfers Transfer Ability Standby Assistance Use of Upper Extremities Technique Transfer Destination Bed Bedside Commode Transfer Technique Stand Step Pivot Devices Transfer Assistive Devices Bed Rail Orthotic/Prosthetic Devices or Brace: No Comments Mobility Comments Pt requested BSC be place in front of him and pt stood holding onto armrails of BSC and performed 180 to sit on BSC. Returned to be the same way. OT- Gait Assessment Comments Gait Ability Comments Gait not assessed on this date OT- Balance Assessment Sitting Balance and Reactions Static Sitting Balance Ability Normal Dynamic Sitting Balance Ability Normal Standing Balance and Reactions Static Standing Balance Ability Poor Dynamic Standing Balance Ability Poor M8 OT- IP Objective Assessments Start: 01/14/19 13:32 Freq: Status: Active Protocol: Document 01/14/19 13:33 CGR (Rec: 01/14/19 13:50 CGR [email or web address]) OT Gross Range of Motion Upper Extremity Range of Motion Assessment Within Functional Limits OT Strength Upper Extremity Strength Assessment Within Functional Limits Comments Strength Comments Grossly 4+/5 strength to the UE OT- Coordination Assessment Upper Extremity Finger to Nose Test Within Functional Limits Finger Tapping Test Within Functional Limits OT Sensation Assessment Comments Summary Comments Reports typical sensation. Edema Edema Absent M9 OT- IP Assessment and Plan Start: 01/14/19 13:32 Freq: Status: Active Protocol: Document 01/14/19 13:33 CGR (Rec: 01/14/19 13:50 CGR [email or web address]) OT Summary Assessment and Plan Potential Rehabilitation Potential Good Analytic Complexity at Evaluation Moderate Summary OT Impairments Pain Strength Balance Functional Cognition Functional Mobility Toileting Bathing Toilet Transfers Shower Transfers Goals Dressing Goal Independent Transportation Broker Sock Aid Toileting Goal Independent Bathing Goal Independent Toilet Transfer Goal Independent Shower Transfer Goal Independent Days to Meet Goals 10 Frequency of Treatment Frequency Of Treatment Once a Day Treatment Plan OT Treatment Plan ADL Training Functional Mobility IADL Training Therapeutic Exercises Patient/Family Education Discharge Planning Discharge Recommendations OT Discharge Recommendations Home with Assistance Other Discharge Recommendations Pt likely to progress to discharge home.
--- NOTE | 2019-01-14 14:44 | CM.DPC ---
DCP Cont: Spoke with Samantha at [facility], for she was inquiring upon inpatient versus observation status, admit date as well. Patient is currently under [facility], so he would be a resumption upon discharge. Gave her updated information. Asked her if she desired any notes, such as wound information, versus prog notes. She stated that we can fax information upon discharge, including discharge summary as well. Let her know that patient could possibly discharge tomorrow. P: DCP to continue to follow, Patient could be discharged home tomorrow with resumption of [facility]. Sheryl Summers RN/Plant Guide
--- NOTE | 2019-01-14 15:10 | CM.DPNOTE ---
According to Dr Henry, pt will likely be ready for DC back home w/resumption of HH tomorrow, Wednesday. This MUD PLANT OPERATOR met w/pt this morning and in the afternoon. Pt remains somnolent and is dozing off throughout our discussion. Pt confirms he has been home for a few weeks from [facility]. He states he had gone from [facility] to [facility] for a few days d/t a bad asthma exacerbation, then back to [facility] then home. Pt continues to live at home, he says he has friends and family that sometimes come to visit w/him. Pt is mostly vague in his answers, says yes and no. Pt is agreeable to having [facility] provide assist w/ wound care management. Pt also has an appt at [facility] this week and has been getting counseling yes I get one to one. Pt says he can call his mom tomorrow, or sister to come and pick him up. This MUD PLANT OPERATOR strongly encouraged pt to continue getting up around his home to remain as mobile as possible. PT eval recommends home w/assist. This MUD PLANT OPERATOR learned from pt that he has 4 brothers and 4 sisters, many of whom he has little to no contact with. Pt states he has already talked to his mom today about coming home Wednesday. This MUD PLANT OPERATOR requested KAILYN Valderrama DC data processing systems project planner to assist in making contact w/ [facility] to alert them to possible DC Wednesday. See her note. P: DC is expected Wednesday, home w/family via pov and [facility] for wound care management. Close outpt f/u will be ordered as well. [facility] expecting update and DC summary w/resumption of care order. Following closely for addtl. needs. JOSÉ LUIS Palmer
--- NOTE | 2019-01-14 15:42 | PT.IPTN ---
This is to certify that I have reviewed this documentation and is involved with this patient's tx care. Current Diagnoses Pneumonia due to other specified bacteria (01/12/19) Physical Therapy Treatment Note M2 PT-IP Current Condition Start: 01/14/19 11:56 Freq: NEEDED Status: Active Protocol: Document 01/14/19 11:29 AB (Rec: 01/14/19 12:12 AB [id number]) Physical Therapy Current Condition Current Condition Evaluation Date 01/14/19 Treatment Diagnosis PNA; asthma with acute exacerbation; difficulty in walking Onset Date 01/12/19 Precautions Other Precautions contact precautions M3 PT-IP Subjective Start: 01/14/19 11:56 Freq: NEEDED Status: Active Protocol: Document 01/14/19 15:41 BS (Rec: 01/14/19 15:42 BS [email or web address]) Subjective Physical Therapy Visit Type Type Patient Refusal Notes Pt refused PT twice in the afternoon. Pt states he does not want to get out of bed, but will be willing tomorrow. Change in frequency with pt to be seen 1x/day, pt not consistent with participation in PT. M7 PT-IP Assessment and Plan Start: 01/14/19 11:56 Freq: NEEDED Status: Active Protocol: Document 01/14/19 15:41 BS (Rec: 01/14/19 15:43 BS [email or web address]) PT Summary Assessment and Plan Frequency of Treatment Frequency Of Treatment Once a Day
[2019-01-14] MEDS: DOCUSATE 100 MG CAPSULE PO (21:20)
[2019-01-14] MEDS: LORATADINE 10 MG TABLET PO (21:20)
[2019-01-14] MEDS: AMOXICILLIN/CLAV 875/125 MG 1 TAB PO (21:20)
--- NOTE | 2019-01-14 21:59 | PC.NURSE ---
Evening Shift Note- Patient in bed resting quietly with eyes closed for most of shift. Patient woke up when dinner arrived and woke easily to voice when medications were due. No complaints of pain or discomfort. No complaints of N/V. Patient took all evening medications without issue. Lung Sounds diminished with note wheezes and Rhonci, Shortness of breath noted with exertion. safety measures in place. call zarate and phone within reach. Patient agrees to call for assistance. will continue to monitor.
[2019-01-15 01:20] VITALS: BP 112/57; PULSE 67; RESP 18; TEMP 37.1; O2SAT 96
[2019-01-15 05:40] LABS: Add Manual Diff / Slide Review NO; Basophils Absolute Auto 0 /uL (0-100); Basophils Percent Auto 0.3 % (0-2); Eosinophils Absolute Auto 0 /uL (0-450); Eosinophils Percent Auto 0.1 % (2-4); Hematocrit 28.8 % (41-53); Hemoglobin 9.2 g/dL (13.5-17.5); Lymphocytes Absolute Auto 1300 /uL (1100-4500); Lymphocytes Percent Auto 26.7 % (25-40); Mean Corpuscular Hemoglobin 25.6 PG (26-34); Mean Corpuscular Volume 79.9 fL (80-100); Monocytes Absolute Auto 500 /uL (0-900); Monocytes Percent Auto 11.3 % (3-14); Neutrophils Absolute Auto 2900 /uL (1500-7000); Neutrophils Percent Auto 61.6 % (50-75); Platelet Count 106 X10^3/uL (150-400); Red Blood Cell Count 3.61 X10^6/uL (4.5-5.9); Red Cell Distribution Width 14.8 % (11.6-14.8); White Blood Cell Count 4.7 X10^3/uL (4.5-11.0)
[2019-01-15 05:52] LABS: Albumin 3.3 g/dL (3.5-5.0); Albumin Globulin Ratio 1.1 (1.0-2.8); Alkaline Phosphatase 61 U/L (38-126); Aspartate Aminotransferase 10 IU/L (17-59); Bilirubin Total 0.2 mg/dL (0.2-1.3); Blood Urea Nitrogen 18 mg/dL (9-20); Calcium 8.2 mg/dL (8.4-10.2); Carbon Dioxide 35 mmol/L (22-32); Chloride 101 mmol/L (98-107); Estimated Glomerular Filt Rate > 60.0 mL/min (>60); Glucose 90 mg/dL (70-100); HEMOLYSIS < 15 (0-50); Magnesium 2.5 mg/dL (1.6-2.3); Sodium 139 mmol/L (137-145); Total Protein 6.3 g/dL (6.3-8.2)
[2019-01-15 05:55] LABS: Alanine Aminotransferase < 6 IU/L (21-72)
[2019-01-15 06:09] LABS: Procalcitonin < 0.05 ng/mL (<0.5)
[2019-01-15 06:25] VITALS: BP 119/66; PULSE 60; RESP 18; TEMP 36.8; O2SAT 98
--- NOTE | 2019-01-15 08:00 | DI.RAD.S_ITS ---
PROCEDURE: XR CHEST 1V INDICATIONS: SOB TECHNIQUE: One view of the chest was acquired. COMPARISON: None. FINDINGS: Surgical changes and devices: None. Lungs and pleura: Lungs are clear. No pleural effusions or pneumothorax. Mediastinum: Mediastinal contours appear normal. Heart size is enlarged. Bones and chest wall: No suspicious bony lesions. Overlying soft tissues appear unremarkable. IMPRESSION: No acute process. Cardiomegaly. Dictated by: Héctor Shaver M.D. on 01/15/2019 at 9:58 Approved by: Héctor Shaver M.D. on 01/15/2019 at 9:59
[2019-01-15 08:10] VITALS: PULSE 92; RESP 14; O2SAT 97
[2019-01-15 08:15] VITALS: BP 118/63; PULSE 85; RESP 18; TEMP 36.5; O2SAT 90
[2019-01-15] MEDS: FLUTICASONE/SALMETEROL 500/50 14 PUFF DISKUS INH (08:18)
[2019-01-15] MEDS: ALBUTEROL 2.5 MG/3 ML NEB (ADULT) INH (08:18)
[2019-01-15] MEDS: OLANZapine 2.5 MG TABLET 15 MG PO (08:20)
[2019-01-15] MEDS: METHADONE 10 MG TABLET 60 MG PO (08:21)
[2019-01-15] MEDS: predniSONE 20 MG TABLET 40 MG PO (08:21)
[2019-01-15] MEDS: GABAPENTIN 300 MG CAPSULE PO (08:21)
[2019-01-15] MEDS: ENOXAPARIN 40 MG/0.4 ML SYRINGE SUBCUT (08:21)
[2019-01-15] MEDS: DULOXETINE 30 MG CAPSULE PO (08:21)
[2019-01-15] MEDS: AMOXICILLIN/CLAV 875/125 MG 1 TAB PO (08:21)
[2019-01-15] MEDS: MONTELUKAST 10 MG TABLET PO (08:21)
[2019-01-15] MEDS: SODIUM CHLORIDE 0.9% FLUSH 10 ML IV (08:22)
[2019-01-15 09:00] VITALS: O2SAT 88
--- NOTE | 2019-01-15 09:36 | P.DS_ITS ---
History of Present Illness Chief complaint: Asthma Narrative: A 38-year-old male presents with increasing shortness of breath and wheezing. He has a long history of asthma and is on chronic oxygen also he has some underlying pulmonary hypertension noted by echo a few months ago. He was discharged from the hospital about 6 weeks ago he was here for prolonged period of time with decubitus ulcers. He was discharged to a nursing facility he was there for a few weeks and then was discharged home. He has been home for the last several weeks. He had been doing well up until just the last few days when he has had increasing shortness of breath some low-grade fevers increasing cough. He is on 2 L of oxygen at home chronically he does not use any CPAP or BiPAP. He has been following with wound Care still as an outp atient for his buttocks wounds. Discharge Providers Date of admission: 01/12/19 17:48 Discharge Date: 01/15/19 Primary care physician: Rama Hernández MD Consults: 01/12/19 21:28 Consult to Respiratory Therapy Evaluate & Treat Comment: measure peak flow Physician Instructions: Evaluate and treat 01/12/19 21:33 Consult to [employer] Routine Comment: 01/12/19 21:38 Consult to Wound Care Routine Comment: Consulting Provider: Fernando- Wound Care 01/13/19 18:58 Consult to Occupational Therapy Evaluate & Treat Comment: Physician Instructions: Evaluate and treat Consult to Physical Therapy Evaluate & Treat Comment: Physician Instructions: Evaluate and Treat Discharge provider: Josue Cooper MD Summary Discharge Diagnosis: 1. Acute asthma exacerbation 2. Possible healthcare associated pneumonia 3. Chronic hypoxic and ventilatory respiratory failure 4. Severe obesity 5. Chronic corticosteroid immunosuppression 6. QT prolongation, likely due to methadone 7. Opioid dependency 8. Chronic pulmonary hypertension and cor pulmonale 9. Chronic stage II decubitus ulcers on buttocks 10. Anemia of chronic disease 11. Depression and anxiety Hospital Course: Patient admitted primarily due to asthma exacerbation. He was treated with IV steroids and nebulizers and transition to oral prednisone day prior to discharge. he is being discharged on prednisone 40 mg daily x1 week. He is also continued on his chronic prednisone which had been recently tapered down to 5 mg twice daily. At time of discharge his breathing is nonlabored, O2 sat 88% on room air, with mild bilateral expiratory wheeze. He does use 1-2 L O2 at home. There was some concern about hospital associated pneumonia based on bilateral infiltrates on x-ray. However, his WBC was normal and procalcitonin at 0 and he has had no fever or cough. Chest x-ray findings may also be explained by pulmonary hypertension. Nevertheless, there is small possibility of pneumonia and we did treat him with IV Zosyn and he was transition to Augmentin prior to discharge to complete 10 day course. In regards to his chronic decubitus wounds those are much improved with recent life care stay and wound VAC treatment. Home health services are being renewed at time of discharge. He was noted to have mild QT prolongation on EKG. This is likely due to his methadone. We have reduced his methadone from 75 mg down to 60 mg daily. His chronic pain appears adequately controlled. Also the methadone was contributing to his drowsiness. Status at Discharge Cognitive/behavioral status at discharge: oriented Overall status at discharge: patient is back to baseline Time Spent with Patient Greater than 30 minutes Exam Vital Signs (past 8 hours): - 01/15/19 06:25 01/15/19 08:10 01/15/19 08:15 Temperature 98.2 F 97.7 F Pulse Rate 60 92 H 85 Respiratory Rate 18 14 18 Blood Pressure 119/66 118/63 Pulse Oximetry 98 97 90 L Oxygen Delivery Method Nasal Cannula Oxygen Flow Rate 0 Objective Labs Result Diagrams: 01/15/19 05:10 01/15/19 05:10 Labs: Laboratory Results - last 24 hr 01/13/19 01/15/19 01/15/19 09:12 05:10 05:10 WBC 4.7 D RBC 3.61 L Hgb 9.2 L Hct 28.8 L MCV 79.9 L MCH 25.6 L MCHC 32.0 RDW 14.8 Plt Count 106 L Neut % (Auto) 61.6 D Lymph % (Auto) 26.7 Bond % (Auto) 11.3 Eos % (Auto) 0.1 L Baso % (Auto) 0.3 Neut # (Auto) 2900 Lymph # (Auto) 1300 Bond # (Auto) 500 Eos # (Auto) 0 Baso # (Auto) 0 Sodium Potassium Chloride Carbon Dioxide BUN Creatinine Estimated GFR BUN/Creatinine Ratio Glucose Calcium Magnesium Total Bilirubin AST ALT Alkaline Phosphatase Total Protein Albumin Globulin Albumin/Globulin Ratio Procalcitonin < 0.05 Anti-Streptolysin O Ab 246 H 01/15/19 05:10 WBC RBC Hgb Hct MCV MCH MCHC RDW Plt Count Neut % (Auto) Lymph % (Auto) Bond % (Auto) Eos % (Auto) Baso % (Auto) Neut # (Auto) Lymph # (Auto) Bond # (Auto) Eos # (Auto) Baso # (Auto) Sodium 139 Potassium 4.0 Chloride 101 Carbon Dioxide 35 H BUN 18 Creatinine 0.60 L Estimated GFR > 60.0 BUN/Creatinine Ratio 30.0 H Glucose 90 Calcium 8.2 L Magnesium 2.5 H Total Bilirubin 0.2 AST 10 L ALT < 6 L Alkaline Phosphatase 61 Total Protein 6.3 Albumin 3.3 L Globulin 3.0 Albumin/Globulin Ratio 1.1 Procalcitonin Anti-Streptolysin O Ab Discharge Plan Discharge Plan Patient Disposition: Home Discharge Med Rec/Prescriptions Prescriptions: New amoxicillin-pot clavulanate [Augmentin] 875-125 mg Tablet 1 tab PO BID Qty: 14 RF: 0 prednisone 20 mg Tablet 40 mg PO DAILY Qty: 14 RF: 0 methadone 10 mg tablet 60 mg PO DAILY Qty: 1 RF: 0 Continued fluticasone propion-salmeterol [Advair Diskus] 500 MCG/50 MCG blister with device 1 puff INH BID Qty: 2 RF: 5 duloxetine [Cymbalta] 30 mg Capsule,Delayed Release(Dr/Ec) 30 mg PO DAILY Qty: 90 RF: 0 acetaminophen 325 mg Tablet 650 mg PO Q6HR PRN (Reason: Pain, Mild) Qty: 30 RF: 0 diphenhydramine HCl [Allergy (diphenhydramine)] 25 mg Tablet 25 mg PO Q6HR PRN (Reason: Itching) Qty: 30 RF: 0 nystatin [Nystop] 100,000 unit/gram Powder 1 applic topical TID PRN (Reason: abd folds/excoriation) Qty: 1 RF: 0 olanzapine 15 mg tablet 15 mg PO DAILY Qty: 10 RF: 0 albuterol sulfate 2.5 mg /3 mL (0.083 %) solution for nebulization 3 ml Inhalation QID PRN (Reason: Shortness Of Breath) RF: 0 albuterol sulfate 90 mcg/actuation HFA aerosol inhaler 2 - 4 puff Inhalation Q4-6H PRN (Reason: Shortness Of Breath) RF: 0 prednisone 5 mg Tablet 5 mg PO BID RF: 0 gabapentin [Neurontin] 300 mg Capsule 300 mg PO TID Qty: 180 RF: 0 Discontinued methadone 10 MG tablet 75 mg PO DAILY Qty: 56 RF: 0 Follow up/Referrals: Rama Hernández MD [Primary Care Provider] - Provider Discharge Instructions Diet: Regular Discharge Data Primary Care Provider: Rama Hernández Attending Provider: Niurka Cobos Admit Date/Time: 01/12/19 17:48
--- NOTE | 2019-01-15 10:21 | CM.DPC ---
DCP Cont: Patient is being discharged home today. Went ahead and called Samantha at [facility] and gave her update about discharge. He will be a resumption for home health. Let Samantha know that this gearcase assembler would send discharge summary, wound notes from [facility], as well as history and physical notes. Went ahead and faxed all documents to: [phone]. P: Patient is being discharged home today with resumption of [facility]. Sheryl Summers RN/General Maintenance Technician
--- NOTE | 2019-01-15 10:33 | PT.IPTN ---
This is to certify that I reviewed this documentation and I am involved with this pt's care. Ronnell De La Torre, PT, DPT Current Diagnoses Unspecified asthma with (acute) exacerbation (01/12/19) Physical Therapy Treatment Note M2 PT-IP Current Condition Start: 01/14/19 11:56 Freq: NEEDED Status: Active Protocol: Document 01/14/19 11:29 AB (Rec: 01/14/19 12:12 AB [id number]) Physical Therapy Current Condition Current Condition Evaluation Date 01/14/19 Treatment Diagnosis PNA; asthma with acute exacerbation; difficulty in walking Onset Date 01/12/19 Precautions Other Precautions contact precautions M3 PT-IP Subjective Start: 01/14/19 11:56 Freq: NEEDED Status: Active Protocol: Document 01/15/19 10:45 BS (Rec: 01/15/19 10:55 BS [email or web address]) Subjective Physical Therapy Visit Type Type Treatment Note Visit Start Time 10:33 Visit Stop Time 10:46 Total Visit Minutes 13 Notes Pt agreeable to PT, but refuses use of gait belt and ambulation outside of room. Number of NETWORK CONTROLLER Visits 0 M4 PT-IP Mobility and Gait Start: 01/14/19 11:56 Freq: NEEDED Status: Active Protocol: Document 01/15/19 10:45 BS (Rec: 01/15/19 10:55 BS [email or web address]) PT-Bed Mobility Assessment Rolling Type of Rolling Roll to Right Level of Assist Standby Assistance Supine to Sit Supine to Sit Standby Assistance Head of Bed Elevated Sit to Supine Sit to Supine Standby Assistance Head of Bed Elevated Scooting Scooting to Edge of Bed Standby Assistance Scooting Up and Down in Bed Standby Assistance PT-Transfer Assessment Sit to and From Stand Sit to and from Stand Standby Assistance Use of Upper Extremities Equipment Transfer Assistive Device Bed Rail Orthotic/Prosthetic Devices or Brace: No Transfers Transfer Destination Chair Transfer Technique Ambulated to bench seat in room with FWW. Transfer Ability Level of Assist Standby Assistance Use of Upper Extremities Comments Mobility Comments Pt requested BSC be place in front of him and pt stood holding onto armrails of BSC and performed 180 to sit on BSC. Returned to be the same way. Gait Assessment Assistive Devices Assistive Device Front Wheeled Walker Orthotic/Prosthetic Devices or Brace: No Gait Deviations General Gait Pattern Antalgic Decreased Stride Length Decreased Feet Clearance Factors Limiting Gait Function Factors Limiting Gait Function Decreased Activity Tolerance Comments Gait Comments Pt also ambulated x10' in room with FWW and SBA, returned to seated EOB for rest. Pt then ambulated from bed<->bench seat in room with A as above, 5 ft x2. O2 sats following each activity 92% and 91%. PT-Balance Assessment Sitting Balance and Reactions Static Sitting Balance Ability Good Dynamic Sitting Balance Ability Good Standing Balance and Reactions Static Standing Balance Ability Fair Dynamic Standing Balance Ability Fair Device Used FWW M5 PT-IP Objective Assessments Start: 01/14/19 11:56 Freq: NEEDED Status: Active Protocol: Document 01/14/19 11:29 AB (Rec: 01/14/19 12:12 AB [id number]) Orientation Orientation/Cognition Level of Alertness Alert Orientation Name Place Situation Language Function Ability No Deficits Noted Strength Lower Extremity Strength Assessment Within Functional Limits Muscle Tone Muscle Tone WNL Yes M6 PT-IP Treatment Start: 01/14/19 11:56 Freq: NEEDED Status: Active Protocol: Document 01/15/19 10:45 BS (Rec: 01/15/19 10:57 BS [email or web address]) Physical Therapy Treatment Other Treatments Other Treatment Performed Ambulation in room with FWW and SBA. Bed mobility from supine->sitting EOB, and stand step transfer with FWW from EOB<->bench seat in room. All mobility SBA for safety. M7 PT-IP Assessment and Plan Start: 01/14/19 11:56 Freq: NEEDED Status: Active Protocol: Document 01/15/19 10:45 BS (Rec: 01/15/19 10:55 BS [email or web address]) PT Summary Assessment and Plan Potential Rehabilitation Potential Fair Summary Impairments Strength Balance Bed Mobility Transfers Gait Activity Tolerance Assessment Summary Pt is currently SBA with all mobility and use of FWW. Pt demo's decreased activity tolerance but able to maintain O2 sats above 90% with activity. Pt is at baseline functioning for mobility and transfers. Pt will discharge home with significant other at this time. Frequency of Treatment Frequency Of Treatment Once a Day Discharge Recommendations PT Discharge Recommendations Home with Assistance
[2019-01-15 11:00] VITALS: BP 150/74; PULSE 101; RESP 20; TEMP 36.8; O2SAT 94
--- NOTE | 2019-01-15 11:12 | CM.DPC ---
DCP/continued: Reviewed chart. Order received for patient to d/c home today with home health services resumed through [facility]. RN/Jannie called [facility] and faxed orders. SECURITY DISPATCHER met with patient and notified him that he can arrange his transport home. RN updated. P: Home today with HH resumed through [facility]. JOSÉ LUIS Noriega
--- NOTE | 2019-01-15 11:45 | PC.NURSE ---
DRSGS CHANGED TO PATIENT'S WOUNDS TO BL UPPER THIGH/GLUT/ISCHEAL TUBEROSITY AREAS. MOD DRAINAGE TO OLD DRSG WHICH WAS LEAKING SEROUS/SANG DRAINAGE ON RIGHT SIDE. LEFT SIDE SCANT DRAINAGE. BOTH WOUNDS WITH 100% GRANULATION TISSUE, WOUND EDGES INTACT. 4X4 ALLEVYN BOARDER DRSGS PLACED OVER EACH AFTER SALINE AND GAUZE, THEN SKIN PREP. TOLERATED WELL. REVIEWED DC INSTRUCTIONS W/ PATIENT. HE STATES HE ALREADY HAS AN APPT WITH HIS PCP FOR TOMORROW, AND GOES TO [facility] TOM[facility]ROW. INSTRUCTED HIM TO BRING HIS NEW MED LIST WHEN HE SEE'S BOTH HIS PCP AND GOES TO THE [facility] CL[facility], AND ALSO TO SHOW HIS MEDLIST AND DC INSTRUCTIONS TO THE LEONELA NURSE. HE WAS INSTRUCTED TO ELECTRICAL APPLIANCE PREPARER HIS SCRIPTS AT THE [facility] ON HIS WAY HOME. REVIEWED ALL MEDS HE HAD ALREADY TAKEN THIS AM WITH HIM. HIS SISTER CAME TO PICK HIM UP, BUT WAS WAITING IN HER CAR, AND PREFERRED WE BRING HIM OUTSIDE TO HER. SHE WAS NOTIFIED THAT THERE WERE SCRIPTS TO ELECTRICAL APPLIANCE PREPARER WELL. PATIENT TRANSFERRED TO VEHICLE WITHOUT DIFFICULTY. ALL BELONGINGS AND PAPERWORK SENT W/ PATIENT.
== END 2019-01-15 11:30 | disposition home health service (06) | DRG 202 ==
LOC: ED 16:29 → AC 17:49
PROVIDERS: Internal Medicine; Admitting Provider Internal Medicine; Emergency Provider Nurse Practitioner Family; Family Provider Family Medicine; PCP Family Medicine; Visit Provider Internal Medicine
DX: J45.901 Unspecified asthma with (acute) exacerbation (principal); J15.8 Pneumonia due to other specified bacteria; J15.1 Pneumonia due to Pseudomonas; J96.10 Chronic respiratory failure, unspecified whether with hypoxia or hypercapnia; E66.2 Morbid (severe) obesity with alveolar hypoventilation; Z68.45 Body mass index [BMI] 70 or greater, adult; F11.20 Opioid dependence, uncomplicated; Z99.81 Dependence on supplemental oxygen; Y95 Nosocomial condition; F41.9 Anxiety disorder, unspecified; I50.814 Right heart failure due to left heart failure; L89.322 Pressure ulcer of left buttock, stage 2; L89.312 Pressure ulcer of right buttock, stage 2; L89.892 Pressure ulcer of other site, stage 2; I27.20 Pulmonary hypertension, unspecified; F32.9 Major depressive disorder, single episode, unspecified
CPT/HCPCS: 36415; 36591; 36600; 71045; 80053; 82805; 83735; 83880; 84145; 85025; 86060; 87040; 87070; 87205; 87400; 87449; 87633; 93041; 94150; 94640; 94760; 94762; 96365; 96375; 97161; 97166; 97530; 99283; 99284; J0696; J1650; J1956; J2543; J2920; J2930; J7613

== ENCOUNTER 2019-01-19 11:59 | Emergency (ER) | payer OTHER, MEDICAID, SELFPAY ==
[2019-01-12 19:04] VITALS: BMI 72.8
[2019-01-19 12:01] VITALS: BP 122/60; PULSE 101; RESP 16; TEMP 36.9; O2SAT 96; BMI 83.2
[2019-01-19 12:30] VITALS: BP 122/62; PULSE 97; RESP 20; O2SAT 96
[2019-01-19] MEDS: ALBUTEROL/IPRATROPIUM 3 ML AMPUL INH (12:36)
[2019-01-19 12:37] VITALS: PULSE 91; O2SAT 94
[2019-01-19] MEDS: OLANZapine ODT 10 MG TAB 20 MG PO (12:37)
--- NOTE | 2019-01-19 13:01 | ED_ITS ---
HPI - Anxiety General Chief Complaint: Anxiety Stated Complaint: Anxiety, Mild CP Source: EMS Mode of arrival: EMS History of Present Illness HPI narrative: Patient is a 38-year-old morbidly obese male presenting with anxiety. He states that he was not able to get his anxiety medication. He was actually admitted to the hospital and discharged on 01/15/2019 for pneumonia. He has not had any fever he was discharged home on antibiotics. He is crying. He has some shortness of breath chronically has shortness of breath. Not any worse than usual. MD complaint: anxiety Related Data Home Medications Medication Instructions Recorded Confirmed albuterol sulfate 2 - 4 puff INHALATION Q4-6H PRN 01/12/19 01/19/19 albuterol sulfate 3 ml INHALATION QID PRN 01/12/19 01/19/19 prednisone 5 mg PO BID 01/12/19 01/12/19 Previous Rx's Medication Instructions Recorded fluticasone propion-salmeterol 1 puff INH BID #2 inh 04/28/17 [Advair Diskus] duloxetine [Cymbalta] 30 mg PO DAILY #90 cap 09/15/18 acetaminophen 650 mg PO Q6HR PRN #30 tab 11/26/18 diphenhydramine HCl [Allergy 25 mg PO Q6HR PRN #30 tab 11/26/18 (diphenhydramine)] nystatin [Nystop] 1 applic TOPICAL TID PRN #1 pkg 11/26/18 olanzapine 15 mg PO DAILY #10 tab 01/11/19 amoxicillin-pot clavulanate 1 tab PO BID #14 tab 01/15/19 [Augmentin] gabapentin [Neurontin] 300 mg PO TID #180 cap 01/15/19 methadone 60 mg PO DAILY #1 tab 01/15/19 prednisone 40 mg PO DAILY #14 tab 01/15/19 Allergies Allergy/AdvReac Type Severity Reaction Status Date / Time NSAIDS (Non-Steroidal Allergy Unknown ASTHMA Verified 01/12/19 16:17 Anti-Inflamma FLARE UPS [NSAIDS (NON-STEROIDAL ANTI-INFLAMMA] ibuprofen AdvReac Mild nausea, GI Verified 01/12/19 16:17 upset Review of Systems Review of Systems ROS Unobtainable: All systems reviewed & are unremarkable except as noted in HPI and below Constitutional Denies chills, Denies fever(s), Denies lethargy and Denies weakness Eyes Denies change in vision, Denies eye discharge, Denies irritation and Denies loss of vision Cardiovascular Denies chest pain, Denies irregular heart rhythm, Denies lightheadedness, Denies palpitations and Denies orthopnea Respiratory Reports as per HPI Gastrointestinal Gastrointestinal: Denies abdominal pain, Denies change in bowel habits, Denies diarrhea, Denies nausea and Denies vomiting Genitourinary Denies hematuria, Denies flank pain, Denies urinary incontinence and Denies urinary urgency Musculoskeletal Denies back pain, Denies muscle weakness, Denies numbness and Denies tingling Integumentary/Breasts Denies pruritus, Denies erythema, Denies rash and Denies wounds Neurologic Denies loss of vision, Denies numbness, Denies tingling and Denies weakness Psychiatric Reports anxiety Endocrine Denies palpitations [facility] Medical History Anxiety (Chronic) Asthma (Chronic) Chronic skin ulcer (Chronic) Methadone use disorder, mild, in controlled environment (Chronic) Morbid obesity (Chronic) Pulmonary hypertension (Chronic) Surgical History H/O vertebral fracture repair (Chronic) History of hip surgery (Chronic) Family History Mother Diabetes mellitus Father No problems noted. Social History household members: significant other Smoking Status: Never smoker Family History Mother Diabetes mellitus Father No problems noted. Social History household members: significant other Smoking Status: Never smoker Exam Initial Vital Signs Initial Vital Signs: Vital Signs Temperature 98.4 F 01/19/19 12:01 Pulse Rate 101 H 01/19/19 12:01 Respiratory Rate 16 01/19/19 12:01 Blood Pressure 122/60 01/19/19 12:01 Pulse Oximetry 96 01/19/19 12:01 GENERAL: Morbidly obese male crying HEENT: Head atraumatic,EOMI, pupils reactive CARDIOVASCULAR: Regular rate and rhythm without murmurs, rubs or gallops. RESPIRATORY: Breath sounds equal bilaterally, no wheezes rales or rhonchi. ABDOMEN: Soft, nontender. Normoactive bowel sounds all 4 quadrants. No guarding or rebound. EXTREMITIES: Normal range of motion, no clubbing or edema. Neurovascularly intact NEUROLOGICAL: Alert and oriented x4.Normal gait and speech SKIN: Warm, dry, no laceration, no petechiae, no rashes or lesions. Course Orders Ordered: Discontinued Medications Albuterol (Ventolin) 2.5 mg INH NOW PRN PRN Reason: Shortness Of Breath Or Wheezing Last Admin: 01/19/19 13:25 Dose: 2.5 mg Albuterol/Ipratropium (Duoneb) 3 ml INH NOW ONE Stop: 01/19/19 12:33 Last Admin: 01/19/19 12:36 Dose: 3 ml Olanzapine (Zyprexa Zydis) 20 mg PO NOW ONE Stop: 01/19/19 12:33 Last Admin: 01/19/19 12:37 Dose: 20 mg Vital Signs - 8 hr 01/19/19 12:01 01/19/19 12:30 01/19/19 12:37 Temperature 98.4 F Pulse Rate 101 H 97 H 91 H Respiratory Rate 16 20 Blood Pressure 122/60 Blood Pressure [Left Wrist] 122/62 Pulse Oximetry 96 96 94 01/19/19 13:08 01/19/19 13:25 01/19/19 14:55 Temperature Pulse Rate 88 100 H 100 H Respiratory Rate 15 18 17 Blood Pressure 117/55 L Blood Pressure [Left Wrist] 117/58 L Pulse Oximetry 93 94 95 [facility] - Anxiety ECG Data Attestation: I personally reviewed and interpreted this ECG as follows: Prior ECG tracings: available for review Interpretation: Rate [address] changes[address] [facility] Narrative Medical decision making narrative: Patient is really requesting for anxiety medication. He is given his olanzapine which is his home medication. He states he was at his PCP who could not get his medication refilled until tomorrow. He is now actually requesting for some Ativan, I have explained him that he will not be getting Ativan in the emergency department. He is actually able to calm himself down and speak in full sentences and not have any sort of respiratory distress. He calmly asked for a cab ride home. At this time I see no further in need to do any other imaging. Discharge Plan Departure Patient Disposition: Home Clinical Impression: Anxiety Discharge Date/Time: 01/19/19 14:56 Interventions: ED Discharge Assessment Last Done: 01/19/19 14:55 Instructions: Anxiety Disorders Activity Restrictions/Additional Instructions: *You have been diagnosed with anxiety *What to do: A year anxiety medication filled tomorrow by her PCP *Continue to take medications as directed *Follow up with your primary care provider in 2-3 days *Return to ER if you should have any new, worsening or concerning symptoms Prescriptions: No Action fluticasone propion-salmeterol [Advair Diskus] 500 MCG/50 MCG blister with device 1 puff INH BID Qty: 2 RF: 5 duloxetine [Cymbalta] 30 mg Capsule,Delayed Release(Dr/Ec) 30 mg PO DAILY Qty: 90 RF: 0 acetaminophen 325 mg Tablet 650 mg PO Q6HR PRN (Reason: Pain, Mild) Qty: 30 RF: 0 diphenhydramine HCl [Allergy (diphenhydramine)] 25 mg Tablet 25 mg PO Q6HR PRN (Reason: Itching) Qty: 30 RF: 0 nystatin [Nystop] 100,000 unit/gram Powder 1 applic topical TID PRN (Reason: abd folds/excoriation) Qty: 1 RF: 0 olanzapine 15 mg tablet 15 mg PO DAILY Qty: 10 RF: 0 albuterol sulfate 2.5 mg /3 mL (0.083 %) solution for nebulization 3 ml Inhalation QID PRN (Reason: Shortness Of Breath) RF: 0 albuterol sulfate 90 mcg/actuation HFA aerosol inhaler 2 - 4 puff Inhalation Q4-6H PRN (Reason: Shortness Of Breath) RF: 0 prednisone 5 mg Tablet 5 mg PO BID RF: 0 amoxicillin-pot clavulanate [Augmentin] 875-125 mg Tablet 1 tab PO BID Qty: 14 RF: 0 prednisone 20 mg Tablet 40 mg PO DAILY Qty: 14 RF: 0 gabapentin [Neurontin] 300 mg Capsule 300 mg PO TID Qty: 180 RF: 0 methadone 10 mg tablet 60 mg PO DAILY Qty: 1 RF: 0 Referrals: Rama Hernández MD [Primary Care Provider] -
[2019-01-19 13:08] VITALS: BP 117/58; PULSE 88; RESP 15; O2SAT 93
[2019-01-19 13:25] VITALS: PULSE 100; RESP 18; O2SAT 94
[2019-01-19] MEDS: ALBUTEROL 2.5 MG/3 ML NEB (ADULT) INH (13:25)
--- NOTE | 2019-01-19 13:41 | PC.NURSE ---
Monitor alarming. Pt resting comfortably. Appears in no distress. O2 sat. 89. Reminded pt to take some deep breaths. O2 sat return to 97 on RA. Upon me exiting room pt begins moaning again.
[2019-01-19 14:55] VITALS: BP 117/55; PULSE 100; RESP 17; O2SAT 95
== END 2019-01-19 14:56 | disposition home or self-care (01) ==
PROVIDERS: Emergency Provider Emergency Medicine; Family Provider Family Medicine; PCP Family Medicine
DX: F41.9 Anxiety disorder, unspecified (principal); R07.89 Other chest pain; R06.02 Shortness of breath
CPT/HCPCS: 93005; 94640; 99283; 99284; J7613

== ENCOUNTER 2019-01-27 13:00 | Emergency (ER) | payer OTHER, MEDICAID, SELFPAY ==
[2019-01-12 19:04] VITALS: BMI 72.8
[2019-01-27 13:05] VITALS: BP 131/65; PULSE 96; RESP 20; TEMP 36.4; O2SAT 93
[2019-01-27 13:10] VITALS: BP 131/65; PULSE 96; RESP 20; TEMP 36.4; O2SAT 93
--- NOTE | 2019-01-27 13:18 | ED_ITS ---
HPI - Anxiety <Ana Dominguez PA-C - Last Filed: 01/27/19 21:51> General Chief Complaint: Anxiety Stated Complaint: anxiety Time Seen by Provider: 01/27/19 13:03 Source: patient and EMS Mode of arrival: EMS Limitations: no limitations History of Present Illness HPI narrative: This 38-year-old male returns to ED secondary to anxiety. He states that he has been feeling more anxious and panicky since yesterday. He describes this as an all over jittery sensation with loss of appetite secondary to anxiety. he states that his breathing is at baseline, denies any dyspnea or chest discomfort. He denies any new pain, fever or illness. He denies complaints other than the anxiety today. He states that he forgot his olanzapine, supposed to be getting from the pharmacy tomorrow. Related Data Home Medications Medication Instructions Recorded Confirmed albuterol sulfate 2 - 4 puff INHALATION Q4-6H PRN 01/12/19 01/19/19 albuterol sulfate 3 ml INHALATION QID PRN 01/12/19 01/19/19 prednisone 5 mg PO BID 01/12/19 01/12/19 Previous Rx's Medication Instructions Recorded fluticasone propion-salmeterol 1 puff INH BID #2 inh 04/28/17 [Advair Diskus] duloxetine [Cymbalta] 30 mg PO DAILY #90 cap 09/15/18 acetaminophen 650 mg PO Q6HR PRN #30 tab 11/26/18 diphenhydramine HCl [Allergy 25 mg PO Q6HR PRN #30 tab 11/26/18 (diphenhydramine)] nystatin [Nystop] 1 applic TOPICAL TID PRN #1 pkg 11/26/18 olanzapine 15 mg PO DAILY #10 tab 01/11/19 amoxicillin-pot clavulanate 1 tab PO BID #14 tab 01/15/19 [Augmentin] gabapentin [Neurontin] 300 mg PO TID #180 cap 01/15/19 methadone 60 mg PO DAILY #1 tab 01/15/19 prednisone 40 mg PO DAILY #14 tab 01/15/19 Allergies Allergy/AdvReac Type Severity Reaction Status Date / Time NSAIDS (Non-Steroidal Allergy Unknown ASTHMA Verified 01/12/19 16:17 Anti-Inflamma FLARE UPS [NSAIDS (NON-STEROIDAL ANTI-INFLAMMA] ibuprofen AdvReac Mild nausea, GI Verified 01/12/19 16:17 upset Review of Systems <Ana Dominguez PA-C - Last Filed: 01/27/19 21:51> Review of Systems ROS Unobtainable: All systems reviewed & are unremarkable except as noted in HPI and below PFSH <Ana Dominguez PA-C - Last Filed: 01/27/19 21:51> Medical History Anxiety (Chronic) Asthma (Chronic) Chronic skin ulcer (Chronic) Methadone use disorder, mild, in controlled environment (Chronic) Morbid obesity (Chronic) Pulmonary hypertension (Chronic) Surgical History H/O vertebral fracture repair (Chronic) History of hip surgery (Chronic) Family History Mother Diabetes mellitus Father No problems noted. Social History household members: significant other Smoking Status: Never smoker Family History Mother Diabetes mellitus Father No problems noted. Social History household members: significant other Smoking Status: Never smoker Exam <Ana Dominguez PA-C - Last Filed: 01/27/19 21:51> Narrative Exam Narrative: GENERAL APPEARANCE: Patient sitting comfortably, occasionally moans, but in no distress. LUNGS: Faint expiratory wheezes with good air entry, no cough. HEART: Rate and rhythm regular without murmur, normal S1 and S2, no S3 or S4. ABDOMEN: Obese, nontender, nondistended NEUROLOGIC: Patient is alert, answers questions appropriately with intelligible speech, normal coordination Initial Vital Signs Initial Vital Signs: Vital Signs Temperature 97.5 F L 01/27/19 13:05 Pulse Rate 96 H 01/27/19 13:05 Respiratory Rate 20 01/27/19 13:05 Blood Pressure 131/65 01/27/19 13:05 Pulse Oximetry 93 01/27/19 13:05 <Parish Arizmendi DO - Last Filed: 01/30/19 07:07> Initial Vital Signs Initial Vital Signs: Vital Signs Temperature 97.5 F L 01/27/19 13:05 Pulse Rate 96 H 01/27/19 13:05 Respiratory Rate 20 01/27/19 13:05 Blood Pressure 131/65 01/27/19 13:05 Pulse Oximetry 93 01/27/19 13:05 Course <Ana Dominguez PA-C - Last Filed: 01/27/19 21:51> Additional Information: Patient denies any acute complaints today aside from anxiety since yesterday. He was seen here for same last week, still has not received his prescription of Zyprexa. 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 Advised close follow-up with PCP as he comes to the ED frequently and this can be treated as an outpatient. Orders Ordered: Discontinued Medications Olanzapine (Zyprexa Zydis) 10 mg PO NOW ONE Stop: 01/27/19 13:46 Last Admin: 01/27/19 13:38 Dose: 10 mg Vital Signs - 8 hr 01/27/19 13:10 Temperature 97.5 F L Pulse Rate 96 H Respiratory Rate 20 Blood Pressure [Left Wrist] 131/65 Pulse Oximetry 93 <Parish Arizmendi DO - Last Filed: 01/30/19 07:07> Orders Ordered: Discontinued Medications Olanzapine (Zyprexa Zydis) 10 mg PO NOW ONE Stop: 01/27/19 13:46 Last Admin: 01/27/19 13:38 Dose: 10 mg Vital Signs - 8 hr 01/27/19 13:10 Temperature 97.5 F L Pulse Rate 96 H Respiratory Rate 20 Blood Pressure [Left Wrist] 131/65 Pulse Oximetry 93 Discharge Plan Departure Patient Disposition: Home Clinical Impression: Anxiety Discharge Date/Time: 01/27/19 13:40 Interventions: ED Discharge Assessment Last Done: 01/27/19 13:40 Instructions: DI for Anxiety -- Adult Activity Restrictions/Additional Instructions: We have given you your dose of olanzapine today, which should start to help your anxiety. we confirmed with the pharmacy that they will have the prescription ready for you today, so please be sure to pick that up and continue it tomorrow. Please follow-up with your primary care provider in a few days to assess your progress, and make sure you do that regularly in case other treatments are needed. When you start to feel anxious, please try taking deep breaths in and out, and focus on her breathing. Also please try exercise, even if it is sitting and marching with your arms and legs in your chair as that can help anxiety as well. Prescriptions: No Action fluticasone propion-salmeterol [Advair Diskus] 500 MCG/50 MCG blister with device 1 puff INH BID Qty: 2 RF: 5 duloxetine [Cymbalta] 30 mg Capsule,Delayed Release(Dr/Ec) 30 mg PO DAILY Qty: 90 RF: 0 acetaminophen 325 mg Tablet 650 mg PO Q6HR PRN (Reason: Pain, Mild) Qty: 30 RF: 0 diphenhydramine HCl [Allergy (diphenhydramine)] 25 mg Tablet 25 mg PO Q6HR PRN (Reason: Itching) Qty: 30 RF: 0 nystatin [Nystop] 100,000 unit/gram Powder 1 applic topical TID PRN (Reason: abd folds/excoriation) Qty: 1 RF: 0 olanzapine 15 mg tablet 15 mg PO DAILY Qty: 10 RF: 0 albuterol sulfate 2.5 mg /3 mL (0.083 %) solution for nebulization 3 ml Inhalation QID PRN (Reason: Shortness Of Breath) RF: 0 albuterol sulfate 90 mcg/actuation HFA aerosol inhaler 2 - 4 puff Inhalation Q4-6H PRN (Reason: Shortness Of Breath) RF: 0 prednisone 5 mg Tablet 5 mg PO BID RF: 0 amoxicillin-pot clavulanate [Augmentin] 875-125 mg Tablet 1 tab PO BID Qty: 14 RF: 0 prednisone 20 mg Tablet 40 mg PO DAILY Qty: 14 RF: 0 gabapentin [Neurontin] 300 mg Capsule 300 mg PO TID Qty: 180 RF: 0 methadone 10 mg tablet 60 mg PO DAILY Qty: 1 RF: 0 Referrals: Rama Hernández MD [Primary Care Provider] - <Parish Arizmendi DO - Last Filed: 01/30/19 07:07> Cosign ED Attending Edi Attestation: I was immediately available in the department for consultation. Documentation has been reviewed. I agree with assessment and plan.
[2019-01-27] MEDS: OLANZapine ODT 10 MG TAB PO (13:38)
== END 2019-01-27 13:40 | disposition home or self-care (01) ==
LOC: ED 13:37
PROVIDERS: Emergency Provider Internal Medicine; Family Provider Family Medicine; PCP Family Medicine
DX: F41.9 Anxiety disorder, unspecified (principal)
CPT/HCPCS: 99282; 99283

== ENCOUNTER 2019-02-08 11:44 | Emergency (ER) | payer OTHER, MEDICAID, SELFPAY ==
[2019-01-12 19:04] VITALS: BMI 72.8
[2019-02-08 11:57] VITALS: BP 125/71; PULSE 109; RESP 23; TEMP 36.7; O2SAT 91
--- NOTE | 2019-02-08 12:20 | DI.RAD.S_ITS ---
PROCEDURE: XR CHEST 1V INDICATIONS: cough TECHNIQUE: One view of the chest was acquired. COMPARISON: [facility], CR, XR CHEST 1V, 01/15/2019, 8:03. FINDINGS: Surgical changes and devices: None. Lungs and pleura: Lungs are clear. No pleural effusions or pneumothorax. Mediastinum: Mediastinal contours appear normal. Heart size is normal. Bones and chest wall: No suspicious bony lesions. Overlying soft tissues appear unremarkable. IMPRESSION: No acute cardiopulmonary disease process. Dictated by: Zainab Cardozo MD, PhD on 02/08/2019 at 12:53 Approved by: Zainab Cardozo MD, PhD on 02/08/2019 at 12:53
[2019-02-08] MEDS: ALBUTEROL 2.5 MG/3 ML NEB (ADULT) INH (12:21)
[2019-02-08 12:23] VITALS: PULSE 70; RESP 20
--- NOTE | 2019-02-08 12:25 | ED.ANXIETY ---
HPI - Anxiety <ANTONETTE Messer - Last Filed: 02/08/19 14:34> General Chief Complaint: Anxiety Stated Complaint: Anxiety Time Seen by Provider: 02/08/19 12:08 Source: patient and EMS Mode of arrival: EMS Limitations: no limitations History of Present Illness HPI narrative: The patient is a 38-year-old male well known to this department with history of anxiety and CHF who presents with a chief complaint of anxiety. He states he left his Zyprexa at his sister's house 2 days ago and thus has been without his Zyprexa for 2 days. He states he is having some substernal chest pain, which she attributes to his anxiety. He denies any suit or homicidal thoughts. He normally takes 20 mg of zydis per day. He states he has not run out of his Zyprexa, but rather left it at his sister's house. He states he also has a cough and wheeze, but feels much better than he did several weeks ago when he came in for pneumonia Related Data Home Medications Medication Instructions Recorded Confirmed albuterol sulfate 2 - 4 puff INHALATION Q4-6H PRN 01/12/19 02/08/19 albuterol sulfate 3 ml INHALATION QID PRN 01/12/19 02/08/19 olanzapine 10 mg PO BEDTIME 02/08/19 02/08/19 Previous Rx's Medication Instructions Recorded acetaminophen 650 mg PO Q6HR PRN #30 tab 11/26/18 diphenhydramine HCl [Allergy 25 mg PO Q6HR PRN #30 tab 11/26/18 (diphenhydramine)] nystatin [Nystop] 1 applic TOPICAL TID PRN #1 pkg 11/26/18 gabapentin [Neurontin] 300 mg PO TID #180 cap 01/15/19 methadone 60 mg PO DAILY #1 tab 01/15/19 olanzapine 15 mg PO DAILY #3 tab 02/08/19 Allergies Allergy/AdvReac Type Severity Reaction Status Date / Time NSAIDS (Non-Steroidal Allergy Unknown ASTHMA Verified 01/12/19 16:17 Anti-Inflamma FLARE UPS [NSAIDS (NON-STEROIDAL ANTI-INFLAMMA] ibuprofen AdvReac Mild nausea, GI Verified 01/12/19 16:17 upset Review of Systems <ANTONETTE Messer - Last Filed: 02/08/19 14:34> Review of Systems GENERAL: Denies chills, fatigue, malaise, fever, sweats. HEENT: Denies sinus pain, ear pain, sore throat, difficulty swallowing, dizziness. RESPIRATORY: See HPI CARDIOVASCULAR: See HPI GASTROINTESTINAL: Denies nausea, vomiting, abdominal pain, diarrhea, constipation, melena. : Denies dysuria, frequency, incontinence, hematuria, urinary retention. MUSCULOSKELETAL: denies weakness, joint pain, or bony pain SKIN: Denies rash, skin lesions, or other NEUROLOGIC: Denies weakness, headache, numbness, change in speech, confusion, seizures, incoordination. PSYCHIATRIC: See HPI 12 point review of systems is negative except for those stated above PFSH <ANTONETTE Messer - Last Filed: 02/08/19 14:34> Medical History Anxiety (Chronic) Asthma (Chronic) Chronic skin ulcer (Chronic) Methadone use disorder, mild, in controlled environment (Chronic) Morbid obesity (Chronic) Pulmonary hypertension (Chronic) Surgical History H/O vertebral fracture repair (Chronic) History of hip surgery (Chronic) Family History Mother Diabetes mellitus Father No problems noted. Social History household members: significant other Smoking Status: Never smoker Family History Mother Diabetes mellitus Father No problems noted. Social History household members: significant other Smoking Status: Never smoker Exam <ANTONETTE Messer - Last Filed: 02/08/19 14:34> Narrative Exam Narrative: GENERAL: morbidly obese patient sitting in wheelchair HEAD: Atraumatic. Normocephalic. No temporal or scalp tenderness. EYES: Pupils equal round and reactive. Extraocular motions intact. No scleral icterus. No injection or drainage. ENT: Nose without bleeding, purulent drainage or septal hematoma. Throat without erythema, tonsillar hypertrophy or exudate. Uvula midline. Airway patent. NECK: Trachea midline. No JVD or lymphadenopathy. Supple, nontender, no meningeal signs. CARDIOVASCULAR: Regular rate and rhythm RESPIRATORY: Diffuse expiratory wheezes, forced sounding. Breath sounds equal bilaterally. No wheezes, rales, or rhonchi. No accessory muscle use. GASTROINTESTINAL: Abdomen soft, non-tender, nondistended. No hepato-splenomegaly, or palpable masses. No guarding. EXTREMITIES: No clubbing, cyanosis, or edema. No joint tenderness, effusion, or edema noted. NEURO: AOx3. Initial Vital Signs Initial Vital Signs: Vital Signs Temperature 98.1 F 02/08/19 11:57 Pulse Rate 109 H 02/08/19 11:57 Respiratory Rate 23 02/08/19 11:57 Blood Pressure 125/71 02/08/19 11:57 Pulse Oximetry 91 02/08/19 11:57 <Concepcion Damian DO - Last Filed: 02/10/19 08:32> Initial Vital Signs Initial Vital Signs: Vital Signs Temperature 98.1 F 02/08/19 11:57 Pulse Rate 109 H 02/08/19 11:57 Respiratory Rate 23 02/08/19 11:57 Blood Pressure 125/71 02/08/19 11:57 Pulse Oximetry 91 02/08/19 11:57 Course <HELEN Messer-BC - Last Filed: 02/08/19 14:34> Orders Ordered: Discontinued Medications Albuterol (Proventil 0.5% Neb Solution) 0 mg INH NOW ONE Stop: 02/08/19 12:17 Last Admin: 02/08/19 12:21 Dose: Not Given Albuterol (Ventolin) 2.5 mg INH NOW ONE Stop: 02/08/19 12:21 Last Admin: 02/08/19 12:21 Dose: 2.5 mg Olanzapine (Zyprexa Zydis) 20 mg PO NOW ONE Stop: 02/08/19 12:21 Last Admin: 02/08/19 13:12 Dose: 20 mg Vital Signs - 8 hr 02/08/19 11:57 02/08/19 12:23 Temperature 98.1 F Pulse Rate 109 H 70 Respiratory Rate 23 20 Blood Pressure 125/71 Pulse Oximetry 91 <Concepcion Damian DO - Last Filed: 02/10/19 08:32> Orders Ordered: Discontinued Medications Albuterol (Proventil 0.5% Neb Solution) 0 mg INH NOW ONE Stop: 02/08/19 12:17 Last Admin: 02/08/19 12:21 Dose: Not Given Albuterol (Ventolin) 2.5 mg INH NOW ONE Stop: 02/08/19 12:21 Last Admin: 02/08/19 12:21 Dose: 2.5 mg Olanzapine (Zyprexa Zydis) 20 mg PO NOW ONE Stop: 02/08/19 12:21 Last Admin: 02/08/19 13:12 Dose: 20 mg Vital Signs - 8 hr 02/08/19 11:57 02/08/19 12:23 Temperature 98.1 F Pulse Rate 109 H 70 Respiratory Rate 23 20 Blood Pressure 125/71 Pulse Oximetry 91 MDM - Anxiety <HELEN Messer- - Last Filed: 02/08/19 14:34> Lab Data Result diagrams: 02/08/19 13:24 02/08/19 13:24 Lab Results 02/08/19 02/08/19 02/08/19 Range/Units 13:24 13:24 13:24 WBC 6.0 (4.5-11.0) X10^3/uL RBC 4.06 L (4.5-5.9) X10^6/uL Hgb 9.8 L (13.5-17.5) g/dL Hct 32.0 L (41-53) % MCV 79.0 L (80-100) fL MCH 24.2 L (26-34) PG MCHC 30.6 (30-36) % RDW 15.1 H (11.6-14.8) % Plt Count 148 L (150-400) X10^3/uL Neut % (Auto) 68.6 (50-75) % Lymph % (Auto) 20.1 L (25-40) % [place] % (Auto) 7.0 (3-14) % Eos % (Auto) 3.5 (2-4) % Baso % (Auto) 0.8 (0-2) % Neut # (Auto) 4100 (3441-8638) /uL Lymph # (Auto) 1200 (4575-9523) /uL [place] # (Auto) 400 (0-900) /uL Eos # (Auto) 200 (0-450) /uL Baso # (Auto) 0 (0-100) /uL PT 13.6 H (10.1-12.7) SECONDS INR 1.2 (0.9-1.3) Sodium 141 (137-145) mmol/L Potassium 3.6 (3.4-5.1) mmol/L Chloride 102 (98-107) mmol/L Carbon Dioxide 36 H (22-32) mmol/L BUN 5 L (9-20) mg/dL Creatinine 0.50 L (0.66-1.25) mg/dL Estimated GFR > 60.0 (>60) mL/min BUN/Creatinine Ratio 10.0 (6-22) Glucose 91 (70-100) mg/dL Calcium 8.4 (8.4-10.2) mg/dL Total Bilirubin 0.3 (0.2-1.3) mg/dL AST 10 L (17-59) IU/L ALT 14 L (21-72) IU/L Alkaline Phosphatase 79 (38-126) U/L Total Creatine Kinase 23 L (55-170) U/L CK-MB (CK-2) TNP CK-MB (CK-2) Rel Index TNP Troponin I < 0.012 (0.01-0.034) ng/mL B-Natriuretic Peptide < 100 (<100) Total Protein 6.6 (6.3-8.2) g/dL Albumin 3.5 (3.5-5.0) g/dL Globulin 3.1 (1.7-4.1) g/dL Albumin/Globulin Ratio 1.1 (1.0-2.8) Imaging Data Chest x-ray: Radiologist's impression: [address] [address] XRay Report Signed Patient: Babatunde Fitzgerald KMR#: [id number] : 1980Acct:[id number] Age/Sex: 38 / MDate of Service: 02/08/19 Loc: ED Accession Number: [id number] Procedure: XR chest 1V Ordering Provider: Concepcion Worthy- PROCEDURE: XR CHEST 1V INDICATIONS: cough TECHNIQUE: One view of the chest was acquired. COMPARISON: [facility], CR, XR CHEST 1V, 01/15/2019, 8:03. FINDINGS: Surgical changes and devices: None. Lungs and pleura: Lungs are clear. No pleural effusions or pneumothorax. Mediastinum: Mediastinal contours appear normal. Heart size is normal. Bones and chest wall: No suspicious bony lesions. Overlying soft tissues appear unremarkable. IMPRESSION: No acute cardiopulmonary disease process. Dictated by: Zainab Cardozo MD, PhD on 02/08/2019 at 12:53 Approved by: Zainab Cardozo MD, PhD on 02/08/2019 at 12:53 ECG Data Attestation: I personally reviewed and interpreted this ECG as follows: Interpretation: Sinus tachycardia. Ventricular rate 101. No ST-elevation noted. No ectopy noted. viewed by Dr Damian at 11:56 MDM Narrative Medical decision making narrative: The patient presents with a chief complaint of anxiety. He has a negative troponin, normal chest x-ray. He did respond well to a single dose of Zyprexa given in the emergency department. I did give him 3 days worth of his prescription, this so that he has enough until his refill is available. I am concerned that the patient's possibly overusing his Zyprexa, as he stated to nursing staff he ran out, but told me that he forgot his prescription at his sister's house. For his lab work is grossly normal for him. Encouraged patient to follow up with primary care provider. Discussed come back to the emergency department for any acute concerns such as chest pain or shortness of breath. <Concepcion Damian, DO - Last Filed: 02/10/19 08:32> Lab Data Attestation: I reviewed the patient's lab results. Lab Results 02/08/19 02/08/19 02/08/19 Range/Units 13:24 13:24 13:24 WBC 6.0 (4.5-11.0) X10^3/uL RBC 4.06 L (4.5-5.9) X10^6/uL Hgb 9.8 L (13.5-17.5) g/dL Hct 32.0 L (41-53) % MCV 79.0 L (80-100) fL MCH 24.2 L (26-34) PG MCHC 30.6 (30-36) % RDW 15.1 H (11.6-14.8) % Plt Count 148 L (150-400) X10^3/uL Neut % (Auto) 68.6 (50-75) % Lymph % (Auto) 20.1 L (25-40) % [place] % (Auto) 7.0 (3-14) % Eos % (Auto) 3.5 (2-4) % Baso % (Auto) 0.8 (0-2) % Neut # (Auto) 4100 (9841-9833) /uL Lymph # (Auto) 1200 (4286-2744) /uL [place] # (Auto) 400 (0-900) /uL Eos # (Auto) 200 (0-450) /uL Baso # (Auto) 0 (0-100) /uL PT 13.6 H (10.1-12.7) SECONDS INR 1.2 (0.9-1.3) Sodium 141 (137-145) mmol/L Potassium 3.6 (3.4-5.1) mmol/L Chloride 102 (98-107) mmol/L Carbon Dioxide 36 H (22-32) mmol/L BUN 5 L (9-20) mg/dL Creatinine 0.50 L (0.66-1.25) mg/dL Estimated GFR > 60.0 (>60) mL/min BUN/Creatinine Ratio 10.0 (6-22) Glucose 91 (70-100) mg/dL Calcium 8.4 (8.4-10.2) mg/dL Total Bilirubin 0.3 (0.2-1.3) mg/dL AST 10 L (17-59) IU/L ALT 14 L (21-72) IU/L Alkaline Phosphatase 79 (38-126) U/L Total Creatine Kinase 23 L (55-170) U/L CK-MB (CK-2) TNP CK-MB (CK-2) Rel Index TNP Troponin I < 0.012 (0.01-0.034) ng/mL B-Natriuretic Peptide < 100 (<100) Total Protein 6.6 (6.3-8.2) g/dL Albumin 3.5 (3.5-5.0) g/dL Globulin 3.1 (1.7-4.1) g/dL Albumin/Globulin Ratio 1.1 (1.0-2.8) ECG Data Attestation: I personally reviewed and interpreted this ECG as follows: Prior ECG tracings: available for review Interpretation: Sinus tachycardia with right bundle branch block, rate of 101, P are 138 QRS of 121 and QTC of 477. Patient has prior EKGs it appears similar. Discharge Plan Departure Patient Disposition: Home Clinical Impression: Anxiety Discharge Date/Time: 02/08/19 14:52 Interventions: ED Discharge Assessment Last Done: 02/08/19 14:50 Instructions: DI for Anxiety -- Adult Activity Restrictions/Additional Instructions: Your lab work and chest x-ray came back well today. I have given you 3 days worth of your Zyprexa, which should bridge you until your prescription is filled. Please follow up with your primary care provider soon as possible. Come back to emergency department for any acute concerns such as chest pain or shortness of breath. Prescriptions: New olanzapine 15 mg tablet,disintegrating 15 mg PO DAILY Qty: 3 RF: 0 No Action acetaminophen 325 mg Tablet 650 mg PO Q6HR PRN (Reason: Pain, Mild) Qty: 30 RF: 0 diphenhydramine HCl [Allergy (diphenhydramine)] 25 mg Tablet 25 mg PO Q6HR PRN (Reason: Itching) Qty: 30 RF: 0 nystatin [Nystop] 100,000 unit/gram Powder 1 applic topical TID PRN (Reason: abd folds/excoriation) Qty: 1 RF: 0 olanzapine 10 mg tablet 10 mg PO BEDTIME RF: 0 albuterol sulfate 2.5 mg /3 mL (0.083 %) solution for nebulization 3 ml Inhalation QID PRN (Reason: Shortness Of Breath) RF: 0 albuterol sulfate 90 mcg/actuation HFA aerosol inhaler 2 - 4 puff Inhalation Q4-6H PRN (Reason: Shortness Of Breath) RF: 0 gabapentin [Neurontin] 300 mg Capsule 300 mg PO TID Qty: 180 RF: 0 methadone 10 mg tablet 60 mg PO DAILY Qty: 1 RF: 0 Referrals: Rama Hernández MD [Primary Care Provider] - <Concepcion Damian DO - Last Filed: 02/10/19 08:32> Cosign ED Attending Edi Attestation: I was immediately available in the department for consultation. This documentation has been reviewed and I agree with assessment and plan. Supervised by Concepcion Damian, DO
[2019-02-08] MEDS: OLANZapine ODT 10 MG TAB 20 MG PO (13:12)
[2019-02-08 13:30] LABS: Add Manual Diff / Slide Review NO; Basophils Absolute Auto 0 /uL (0-100); Basophils Percent Auto 0.8 % (0-2); Eosinophils Absolute Auto 200 /uL (0-450); Eosinophils Percent Auto 3.5 % (2-4); Hemoglobin 9.8 g/dL (13.5-17.5); Lymphocytes Absolute Auto 1200 /uL (1100-4500); Lymphocytes Percent Auto 20.1 % (25-40); Mean Corpuscular HGB Conc 30.6 % (30-36); Mean Corpuscular Hemoglobin 24.2 PG (26-34); Monocytes Absolute Auto 400 /uL (0-900); Neutrophils Absolute Auto 4100 /uL (1500-7000); Neutrophils Percent Auto 68.6 % (50-75); Platelet Count 148 X10^3/uL (150-400); Red Blood Cell Count 4.06 X10^6/uL (4.5-5.9); Red Cell Distribution Width 15.1 % (11.6-14.8)
[2019-02-08 13:36] LABS: INR 1.2 (0.9-1.3); Prothrombin Time 13.6 SECONDS (10.1-12.7)
[2019-02-08 13:41] LABS: Alanine Aminotransferase 14 IU/L (21-72); Albumin 3.5 g/dL (3.5-5.0); Albumin Globulin Ratio 1.1 (1.0-2.8); Alkaline Phosphatase 79 U/L (38-126); Aspartate Aminotransferase 10 IU/L (17-59); Bilirubin Total 0.3 mg/dL (0.2-1.3); Blood Urea Nitrogen 5 mg/dL (9-20); Calcium 8.4 mg/dL (8.4-10.2); Carbon Dioxide 36 mmol/L (22-32); Chloride 102 mmol/L (98-107); Creatine Kinase 23 U/L (55-170); Estimated Glomerular Filt Rate > 60.0 mL/min (>60); Globulin 3.1 g/dL (1.7-4.1); Glucose 91 mg/dL (70-100); HEMOLYSIS < 15 (0-50); Potassium 3.6 mmol/L (3.4-5.1); Sodium 141 mmol/L (137-145); Total Protein 6.6 g/dL (6.3-8.2)
[2019-02-08 13:48] LABS: B Type Natriuretic Peptide < 100 (<100)
[2019-02-08 13:53] LABS: Troponin I < 0.012 ng/mL (0.01-0.034)
== END 2019-02-08 14:52 | disposition home or self-care (01) ==
PROVIDERS: Emergency Provider Nurse Practitioner Family; Family Provider Family Medicine; PCP Family Medicine
DX: F41.9 Anxiety disorder, unspecified (principal); R00.0 Tachycardia, unspecified
CPT/HCPCS: 71045; 80053; 82550; 83880; 84484; 85025; 85610; 93005; 93010; 94640; 99282; 99285; J7613

== ENCOUNTER 2019-02-10 10:38 | Emergency (ER) | payer OTHER, MEDICAID, SELFPAY ==
[2019-01-12 19:04] VITALS: BMI 72.8
[2019-02-10 10:50] VITALS: BP 120/76; PULSE 98; RESP 26; TEMP 36.9; O2SAT 86; BMI 82.3
[2019-02-10] MEDS: ALBUTEROL/IPRATROPIUM 3 ML AMPUL INH (11:07)
[2019-02-10 11:08] VITALS: PULSE 97; RESP 20; O2SAT 98
[2019-02-10 11:46] VITALS: RESP 18; O2SAT 88
--- NOTE | 2019-02-10 11:47 | PC.NURSE ---
Patients O2 was satting at 88 with a steady, constant pleth. I put patient back on nasal cannula O2.
--- NOTE | 2019-02-10 11:51 | PC.NURSE ---
I explained with the patient that we need to keep patient doors closed because of HIPPA and how the ER is small, making it easy to overhear private information.
--- NOTE | 2019-02-10 12:22 | PC.NURSE ---
assisted pt to the bathroom again, pt consistently asking when provider will be in to see him. I told the pt that the provider is making her way to him, but that it will taking a little bit due to more emergent patients. Provider at bedside when he returned to his room
--- NOTE | 2019-02-10 12:26 | DI.RAD.S_ITS ---
PROCEDURE: XR CHEST 1V INDICATIONS: sob, asthma TECHNIQUE: One view of the chest was acquired. COMPARISON: [facility], CR, XR CHEST 1V, 01/15/2019, 8:03. [facility], CR, XR CHEST 1V, 02/08/2019, 12:34. FINDINGS: Surgical changes and devices: None. Lungs and pleura: There is mild increased interstitial markings bilaterally. No focal additional pleural effusion. No pneumothorax. Mediastinum: Mediastinal contours appear normal. Heart size is normal. Bones and chest wall: No suspicious bony lesions. Overlying soft tissues appear unremarkable. IMPRESSION: No acute cardiopulmonary disease. Dictated by: Alex Beltran M.D. on 02/10/2019 at 12:47 Approved by: Alex Beltran M.D. on 02/10/2019 at 12:49
[2019-02-10 12:55] LABS: Add Manual Diff / Slide Review NO; Basophils Absolute Auto 0 /uL (0-100); Basophils Percent Auto 0.7 % (0-2); Eosinophils Absolute Auto 200 /uL (0-450); Eosinophils Percent Auto 3.1 % (2-4); Hematocrit 32.3 % (41-53); Lymphocytes Absolute Auto 1400 /uL (1100-4500); Lymphocytes Percent Auto 20.3 % (25-40); Mean Corpuscular HGB Conc 30.9 % (30-36); Mean Corpuscular Hemoglobin 24.2 PG (26-34); Mean Corpuscular Volume 78.3 fL (80-100); Monocytes Absolute Auto 400 /uL (0-900); Monocytes Percent Auto 6.6 % (3-14); Neutrophils Absolute Auto 4600 /uL (1500-7000); Neutrophils Percent Auto 69.3 % (50-75); Platelet Count 141 X10^3/uL (150-400); Red Blood Cell Count 4.13 X10^6/uL (4.5-5.9); Red Cell Distribution Width 15.3 % (11.6-14.8); White Blood Cell Count 6.7 X10^3/uL (4.5-11.0)
[2019-02-10 13:06] VITALS: PULSE 108; O2SAT 94
[2019-02-10 13:08] LABS: Alanine Aminotransferase 13 IU/L (21-72); Albumin 3.6 g/dL (3.5-5.0); Albumin Globulin Ratio 1.1 (1.0-2.8); Alkaline Phosphatase 86 U/L (38-126); Aspartate Aminotransferase 13 IU/L (17-59); Bilirubin Total 0.5 mg/dL (0.2-1.3); Blood Urea Nitrogen 5 mg/dL (9-20); Calcium 8.6 mg/dL (8.4-10.2); Carbon Dioxide 37 mmol/L (22-32); Chloride 100 mmol/L (98-107); Creatine Kinase 25 U/L (55-170); Estimated Glomerular Filt Rate > 60.0 mL/min (>60); Globulin 3.3 g/dL (1.7-4.1); Glucose 90 mg/dL (70-100); HEMOLYSIS < 15 (0-50); Potassium 3.6 mmol/L (3.4-5.1); Sodium 140 mmol/L (137-145); Total Protein 6.9 g/dL (6.3-8.2)
--- NOTE | 2019-02-10 13:10 | ED.SOB ---
HPI - SOB/Dyspnea <ROLAN MesserBC - Last Filed: 02/10/19 15:12> General Chief Complaint: Shortness of Breath/Dyspnea Stated Complaint: Anxiety Time Seen by Provider: 02/10/19 12:19 Source: patient and EMS Mode of arrival: EMS Limitations: no limitations History of Present Illness The patient is a 38 year old male well known to this department with a history of anxiety and asthma who presents with a chief complaint of anxiety and shortness of breath. He states he has not been taking his daily anxiety medications since he was at this facility 2 days ago. He states he has been using his nebulizers at home. He states that his sister is supposed to be bring his zyprexa down today. He states he believes his shortness of breath is related to his anxiety. He denies any fevers vomiting abdominal pain. He states he is not coughing anything up. Related Data Home Medications Medication Instructions Recorded Confirmed albuterol sulfate 2 - 4 puff INHALATION Q4-6H PRN 01/12/19 02/08/19 albuterol sulfate 3 ml INHALATION QID PRN 01/12/19 02/08/19 olanzapine 10 mg PO BEDTIME 02/08/19 02/08/19 Previous Rx's Medication Instructions Recorded acetaminophen 650 mg PO Q6HR PRN #30 tab 11/26/18 diphenhydramine HCl [Allergy 25 mg PO Q6HR PRN #30 tab 11/26/18 (diphenhydramine)] nystatin [Nystop] 1 applic TOPICAL TID PRN #1 pkg 11/26/18 gabapentin [Neurontin] 300 mg PO TID #180 cap 01/15/19 methadone 60 mg PO DAILY #1 tab 01/15/19 olanzapine 15 mg PO DAILY #3 tab 02/08/19 Allergies Allergy/AdvReac Type Severity Reaction Status Date / Time NSAIDS (Non-Steroidal Allergy Unknown ASTHMA Verified 01/12/19 16:17 Anti-Inflamma FLARE UPS [NSAIDS (NON-STEROIDAL ANTI-INFLAMMA] ibuprofen AdvReac Mild nausea, GI Verified 01/12/19 16:17 upset Review of Systems <ANTONETTE Messer - Last Filed: 02/10/19 15:12> Review of Systems GENERAL: Denies chills, fatigue, malaise, fever, sweats. HEENT: Denies sinus pain, ear pain, sore throat, difficulty swallowing, dizziness. RESPIRATORY: See HPI CARDIOVASCULAR: Denies chest pain, palpitations, orthopnea, edema, GASTROINTESTINAL: Denies nausea, vomiting, abdominal pain, diarrhea, constipation, melena. : Denies dysuria, frequency, incontinence, hematuria, urinary retention. MUSCULOSKELETAL: denies weakness, joint pain, or bony pain SKIN: Denies rash, skin lesions, or other NEUROLOGIC: Denies weakness, headache, numbness, change in speech, confusion, seizures, incoordination. PSYCHIATRIC: See HPI 12 point review of systems is negative except for those stated above PFSH <ANTONETTE Messer - Last Filed: 02/10/19 15:12> Medical History Anxiety (Chronic) Asthma (Chronic) Chronic skin ulcer (Chronic) Methadone use disorder, mild, in controlled environment (Chronic) Morbid obesity (Chronic) Pulmonary hypertension (Chronic) Surgical History H/O vertebral fracture repair (Chronic) History of hip surgery (Chronic) Family History Mother Diabetes mellitus Father No problems noted. Social History household members: significant other Smoking Status: Never smoker Family History Mother Diabetes mellitus Father No problems noted. Social History household members: significant other Smoking Status: Never smoker Exam <ANTONETTE Messer - Last Filed: 02/10/19 15:12> Narrative Exam Narrative: GENERAL: Obese gentleman sitting on stretcher in no acute distress HEAD: Atraumatic. Normocephalic. No temporal or scalp tenderness. EYES: Pupils equal round and reactive. Extraocular motions intact. No scleral icterus. No injection or drainage. ENT: Nose without bleeding, purulent drainage or septal hematoma. Throat without erythema, tonsillar hypertrophy or exudate. Uvula midline. Airway patent. NECK: Trachea midline. No JVD or lymphadenopathy. Supple, nontender, no meningeal signs. CARDIOVASCULAR: Regular rate and rhythm without murmurs, gallops, or rubs. RESPIRATORY: Diffuse expiratory wheezes auscultation. Breath sounds equal bilaterally. No wheezes, rales, or rhonchi. No accessory muscle use. No cough on exam. No stridor. GASTROINTESTINAL: Abdomen soft, non-tender, nondistended. No hepato-splenomegaly, or palpable masses. No guarding. Active bowel sounds. NEURO: AOx3. Interactive. [place] himself around the emergency department. Initial Vital Signs Initial Vital Signs: Vital Signs Temperature 98.4 F 02/10/19 10:50 Pulse Rate 98 H 02/10/19 10:50 Respiratory Rate 26 H 02/10/19 10:50 Blood Pressure 120/76 02/10/19 10:50 Pulse Oximetry 86 L 02/10/19 10:50 <Concepcion Damian DO - Last Filed: 02/10/19 18:59> Initial Vital Signs Initial Vital Signs: Vital Signs Temperature 98.4 F 02/10/19 10:50 Pulse Rate 98 H 02/10/19 10:50 Respiratory Rate 26 H 02/10/19 10:50 Blood Pressure 120/76 02/10/19 10:50 Pulse Oximetry 86 L 02/10/19 10:50 Course <HELEN Messer-NATHAN - Last Filed: 02/10/19 15:12> Orders Ordered: ED Orders 02/10/19 12:26 XR chest 1V Stat EKG-12 Lead Stat 02/10/19 12:45 B Type Natriuretic Peptide Stat Complete Blood Count AUTO DIFF Stat Comprehensive Metabolic Panel Stat Troponin & CK Cardiac Panel Stat Discontinued Medications Albuterol/Ipratropium (Duoneb) 3 ml INH NOW ONE Stop: 02/10/19 11:07 Last Admin: 02/10/19 11:07 Dose: 3 ml Olanzapine (Zyprexa Zydis) 20 mg PO NOW ONE Stop: 02/10/19 13:33 Last Admin: 02/10/19 13:51 Dose: 20 mg Vital Signs - 8 hr 02/10/19 11:08 02/10/19 11:46 02/10/19 13:06 Pulse Rate 97 H 108 H Respiratory Rate 20 18 Pulse Oximetry 98 88 L 94 02/10/19 14:41 Pulse Rate Respiratory Rate 20 Pulse Oximetry 92 <Concepcion Damian DO - Last Filed: 02/10/19 18:59> Orders Ordered: ED Orders 02/10/19 12:26 XR chest 1V Stat EKG-12 Lead Stat 02/10/19 12:45 B Type Natriuretic Peptide Stat Complete Blood Count AUTO DIFF Stat Comprehensive Metabolic Panel Stat Troponin & CK Cardiac Panel Stat Discontinued Medications Albuterol/Ipratropium (Duoneb) 3 ml INH NOW ONE Stop: 02/10/19 11:07 Last Admin: 02/10/19 11:07 Dose: 3 ml Olanzapine (Zyprexa Zydis) 20 mg PO NOW ONE Stop: 02/10/19 13:33 Last Admin: 02/10/19 13:51 Dose: 20 mg Vital Signs - 8 hr 02/10/19 11:08 02/10/19 11:46 02/10/19 13:06 Pulse Rate 97 H 108 H Respiratory Rate 20 18 Pulse Oximetry 98 88 L 94 02/10/19 14:41 Pulse Rate Respiratory Rate 20 Pulse Oximetry 92 MDM - SOB/Dyspnea <HELEN Messer-BC - Last Filed: 02/10/19 15:12> Lab Data Result diagrams: 02/10/19 12:45 02/10/19 12:45 Lab Results 02/10/19 02/10/19 Range/Units 12:45 12:45 WBC 6.7 (4.5-11.0) X10^3/uL RBC 4.13 L (4.5-5.9) X10^6/uL Hgb 10.0 L (13.5-17.5) g/dL Hct 32.3 L (41-53) % MCV 78.3 L (80-100) fL MCH 24.2 L (26-34) PG MCHC 30.9 (30-36) % RDW 15.3 H (11.6-14.8) % Plt Count 141 L (150-400) X10^3/uL Neut % (Auto) 69.3 (50-75) % Lymph % (Auto) 20.3 L (25-40) % [place] % (Auto) 6.6 (3-14) % Eos % (Auto) 3.1 (2-4) % Baso % (Auto) 0.7 (0-2) % Neut # (Auto) 4600 (9682-7485) /uL Lymph # (Auto) 1400 (1062-2392) /uL [place] # (Auto) 400 (0-900) /uL Eos # (Auto) 200 (0-450) /uL Baso # (Auto) 0 (0-100) /uL Sodium 140 (137-145) mmol/L Potassium 3.6 (3.4-5.1) mmol/L Chloride 100 (98-107) mmol/L Carbon Dioxide 37 H (22-32) mmol/L BUN 5 L (9-20) mg/dL Creatinine 0.50 L (0.66-1.25) mg/dL Estimated GFR > 60.0 (>60) mL/min BUN/Creatinine Ratio 10.0 (6-22) Glucose 90 (70-100) mg/dL Calcium 8.6 (8.4-10.2) mg/dL Total Bilirubin 0.5 (0.2-1.3) mg/dL AST 13 L (17-59) IU/L ALT 13 L (21-72) IU/L Alkaline Phosphatase 86 (38-126) U/L Total Creatine Kinase 25 L (55-170) U/L CK-MB (CK-2) TNP CK-MB (CK-2) Rel Index TNP Troponin I < 0.012 (0.01-0.034) ng/mL B-Natriuretic Peptide < 100 (<100) Total Protein 6.9 (6.3-8.2) g/dL Albumin 3.6 (3.5-5.0) g/dL Globulin 3.3 (1.7-4.1) g/dL Albumin/Globulin Ratio 1.1 (1.0-2.8) Imaging Data Chest x-ray: Radiologist's impression: [address] [address] XRay Report Signed Patient: Babatunde Fitzgerald KMR#: [id number] : 1980Acct:[id number] Age/Sex: 38 / MDate of Service: 02/10/19 Loc: ED Accession Number: [id number] Procedure: XR chest 1V Ordering Provider: Concepcion Worthy-BC PROCEDURE: XR CHEST 1V INDICATIONS: sob, asthma TECHNIQUE: One view of the chest was acquired. COMPARISON: [facility], CR, XR CHEST 1V, 01/15/2019, 8:03. [facility], CR, XR CHEST 1V, 02/08/2019, 12:34. FINDINGS: Surgical changes and devices: None. Lungs and pleura: There is mild increased interstitial markings bilaterally. No focal additional pleural effusion. No pneumothorax. Mediastinum: Mediastinal contours appear normal. Heart size is normal. Bones and chest wall: No suspicious bony lesions. Overlying soft tissues appear unremarkable. IMPRESSION: No acute cardiopulmonary disease. Dictated by: Alex Beltran M.D. on 02/10/2019 at 12:47 Approved by: Alex Beltran M.D. on 02/10/2019 at 12:49 ECG Data Attestation: I personally reviewed and interpreted this ECG as follows: Interpretation: Consistent with previous EKGs. Ventricular rate 96. No ectopy noted. DE interval 148 MDM Narrative Medical decision making narrative: The patient is a 38-year-old male who presents complaining of shortness of breath and anxiety. His troponin is negative. His EKG has no changes. His BNP is negative. He later states he came in as he has not had his anxiety medication for several days. I encouraged him to follow up with primary care provider soon as possible about this. He states he plans on seeing his primary care provider tomorrow. I did discuss a burst of steroids if his asthma is worse, but the patient declined and stated he was ready to go after a received as Zyprexa. Patient states he plan on seeing his PCP tomorrow. I encouraged him to follow through with this. Patient has no questions or concerns upon discharge. Discussed coming back to the emergency department for any acute concerns such as chest pain. <Concepcion Damian, - Last Filed: 02/10/19 18:59> Lab Data Lab Results 02/10/19 02/10/19 Range/Units 12:45 12:45 WBC 6.7 (4.5-11.0) X10^3/uL RBC 4.13 L (4.5-5.9) X10^6/uL Hgb 10.0 L (13.5-17.5) g/dL Hct 32.3 L (41-53) % MCV 78.3 L (80-100) fL MCH 24.2 L (26-34) PG MCHC 30.9 (30-36) % RDW 15.3 H (11.6-14.8) % Plt Count 141 L (150-400) X10^3/uL Neut % (Auto) 69.3 (50-75) % Lymph % (Auto) 20.3 L (25-40) % [place] % (Auto) 6.6 (3-14) % Eos % (Auto) 3.1 (2-4) % Baso % (Auto) 0.7 (0-2) % Neut # (Auto) 4600 (4047-9744) /uL Lymph # (Auto) 1400 (3869-5580) /uL [place] # (Auto) 400 (0-900) /uL Eos # (Auto) 200 (0-450) /uL Baso # (Auto) 0 (0-100) /uL Sodium 140 (137-145) mmol/L Potassium 3.6 (3.4-5.1) mmol/L Chloride 100 (98-107) mmol/L Carbon Dioxide 37 H (22-32) mmol/L BUN 5 L (9-20) mg/dL Creatinine 0.50 L (0.66-1.25) mg/dL Estimated GFR > 60.0 (>60) mL/min BUN/Creatinine Ratio 10.0 (6-22) Glucose 90 (70-100) mg/dL Calcium 8.6 (8.4-10.2) mg/dL Total Bilirubin 0.5 (0.2-1.3) mg/dL AST 13 L (17-59) IU/L ALT 13 L (21-72) IU/L Alkaline Phosphatase 86 (38-126) U/L Total Creatine Kinase 25 L (55-170) U/L CK-MB (CK-2) TNP CK-MB (CK-2) Rel Index TNP Troponin I < 0.012 (0.01-0.034) ng/mL B-Natriuretic Peptide < 100 (<100) Total Protein 6.9 (6.3-8.2) g/dL Albumin 3.6 (3.5-5.0) g/dL Globulin 3.3 (1.7-4.1) g/dL Albumin/Globulin Ratio 1.1 (1.0-2.8) Discharge Plan Departure Patient Disposition: Home Clinical Impression: Anxiety Asthma Qualifiers: Asthma severity: unspecified severity Asthma persistence: unspecified Asthma complication type: unspecified Qualified Code(s): J45.909 - Unspecified asthma, uncomplicated Discharge Date/Time: 02/10/19 15:03 Interventions: ED Discharge Assessment Last Done: 02/10/19 15:02 Instructions: DI for Asthma -- Adult, DI for Anxiety -- Adult Activity Restrictions/Additional Instructions: Your lab work and x-ray came back well today. You have declined further steroids for your asthma Please follow up with primary care provider soon as possible as we discussed. Please be sure to get your medications from your sister. Come back to the emergency department for any acute concerns such as chest pain. Prescriptions: No Action acetaminophen 325 mg Tablet 650 mg PO Q6HR PRN (Reason: Pain, Mild) Qty: 30 RF: 0 diphenhydramine HCl [Allergy (diphenhydramine)] 25 mg Tablet 25 mg PO Q6HR PRN (Reason: Itching) Qty: 30 RF: 0 nystatin [Nystop] 100,000 unit/gram Powder 1 applic topical TID PRN (Reason: abd folds/excoriation) Qty: 1 RF: 0 olanzapine 10 mg tablet 10 mg PO BEDTIME RF: 0 olanzapine 15 mg tablet,disintegrating 15 mg PO DAILY Qty: 3 RF: 0 albuterol sulfate 2.5 mg /3 mL (0.083 %) solution for nebulization 3 ml Inhalation QID PRN (Reason: Shortness Of Breath) RF: 0 albuterol sulfate 90 mcg/actuation HFA aerosol inhaler 2 - 4 puff Inhalation Q4-6H PRN (Reason: Shortness Of Breath) RF: 0 gabapentin [Neurontin] 300 mg Capsule 300 mg PO TID Qty: 180 RF: 0 methadone 10 mg tablet 60 mg PO DAILY Qty: 1 RF: 0 Referrals: Rama Hernández MD [Primary Care Provider] - <Concepcion Damian DO - Last Filed: 02/10/19 18:59> Cosign ED Attending [place] Attestation: I was immediately available in the department for consultation, patient imaging, labs reviewed. Patient is feeling improved. [place] himself out of room. This documentation has been reviewed and I agree with assessment and plan. Supervised by Concepcion Damian, DO
[2019-02-10 13:14] LABS: B Type Natriuretic Peptide < 100 (<100)
[2019-02-10 13:18] LABS: Troponin I < 0.012 ng/mL (0.01-0.034)
[2019-02-10] MEDS: OLANZapine ODT 10 MG TAB 20 MG PO (13:51)
[2019-02-10 14:41] VITALS: RESP 20; O2SAT 92
--- NOTE | 2019-02-10 14:43 | PC.NURSE ---
Patient is satting at 92-93 on room air with a steady pleth. Patient states he is feeling better and would like to go home.
--- NOTE | 2019-02-10 14:58 | PC.NURSE ---
Patient had asked me to arrange transport home with his insurance Medicaid. I called and talked with Amy who will call us back and tell us an ETA for the patients ride home.
== END 2019-02-10 15:03 | disposition home or self-care (01) ==
PROVIDERS: Emergency Provider Nurse Practitioner Family; Family Provider Family Medicine; PCP Family Medicine
DX: F41.9 Anxiety disorder, unspecified (principal); J45.909 Unspecified asthma, uncomplicated
CPT/HCPCS: 71045; 80053; 82550; 83880; 84484; 85025; 93005; 93010; 94640; 99284; 99285

== ENCOUNTER 2019-02-13 06:09 | Emergency (ER) | payer OTHER, MEDICAID, SELFPAY ==
[2019-01-12 19:04] VITALS: BMI 72.8
[2019-02-13 06:14] VITALS: BP 141/80; PULSE 102; RESP 18; TEMP 36.7; O2SAT 92
--- NOTE | 2019-02-13 06:17 | ED.ANXIETY ---
HPI - Anxiety General Chief Complaint: Anxiety Stated Complaint: Anxiety Time Seen by Provider: 02/13/19 06:15 Source: patient and EMS Mode of arrival: EMS Limitations: no limitations History of Present Illness HPI narrative: 38M nonsmoker with anxiety and asthma presents by EMS with terrible anxiety since last night. He historically does well when he has been taking his meds (zyprexa), but he's been out for a few days because his sister whom usually gets his meds for him. He denies any desire to hurt himself or anyone else. He states his asthma is acting up a bit. He denies N/V/D. complaint: anxiety Onset (ago): hour(s) Symptoms: extremity numbness/tingling Severity: moderate Quality: constant Place: home History of similar episodes: Yes Provoking factors: emotional stress and medication change Relieving factors: medication Associated symptoms: chest pain and shortness of breath Related Data Home Medications Medication Instructions Recorded Confirmed albuterol sulfate 2 - 4 puff INHALATION Q4-6H PRN 01/12/19 02/08/19 albuterol sulfate 3 ml INHALATION QID PRN 01/12/19 02/08/19 olanzapine 10 mg PO BEDTIME 02/08/19 02/08/19 Previous Rx's Medication Instructions Recorded acetaminophen 650 mg PO Q6HR PRN #30 tab 11/26/18 diphenhydramine HCl [Allergy 25 mg PO Q6HR PRN #30 tab 11/26/18 (diphenhydramine)] nystatin [Nystop] 1 applic TOPICAL TID PRN #1 pkg 11/26/18 gabapentin [Neurontin] 300 mg PO TID #180 cap 01/15/19 methadone 60 mg PO DAILY #1 tab 01/15/19 olanzapine 15 mg PO DAILY #3 tab 02/08/19 olanzapine 20 mg PO BEDTIME #30 tab 02/13/19 Allergies Allergy/AdvReac Type Severity Reaction Status Date / Time NSAIDS (Non-Steroidal Allergy Unknown ASTHMA Verified 01/12/19 16:17 Anti-Inflamma FLARE UPS [NSAIDS (NON-STEROIDAL ANTI-INFLAMMA] ibuprofen AdvReac Mild nausea, GI Verified 01/12/19 16:17 upset Review of Systems Constitutional Denies chills, Denies fever(s), Denies lethargy and Denies weakness Eyes Denies change in vision, Denies eye discharge, Denies irritation and Denies loss of vision ENT Ears, Nose, Mouth, and Throat: Denies change in voice, Denies neck pain and Denies sore throat Cardiovascular Reports chest pain, Denies irregular heart rhythm, Denies lightheadedness, Denies palpitations, Reports dyspnea, Denies dyspnea on exertion and Denies orthopnea Respiratory Denies cough, Reports dyspnea, Denies dyspnea on exertion and Reports wheezing Gastrointestinal Gastrointestinal: Denies abdominal pain, Denies change in bowel habits, Denies diarrhea, Denies nausea and Denies vomiting Genitourinary Denies hematuria, Denies flank pain, Denies urinary incontinence and Denies urinary urgency Musculoskeletal Denies neck pain Integumentary/Breasts Denies pruritus, Denies erythema, Denies rash and Denies wounds Neurologic Denies confusion, Denies loss of vision and Denies weakness Psychiatric Reports anxiety, Denies confusion, Denies depression, Denies homicidal ideation and Denies suicidal ideation Endocrine Denies palpitations Hematologic/Lymphatic Denies easy bruising Allergic/Immunologic Reports wheezing PFSH Medical History Anxiety (Chronic) Asthma (Chronic) Chronic skin ulcer (Chronic) Methadone use disorder, mild, in controlled environment (Chronic) Morbid obesity (Chronic) Pulmonary hypertension (Chronic) Surgical History H/O vertebral fracture repair (Chronic) History of hip surgery (Chronic) Family History Mother Diabetes mellitus Father No problems noted. Social History household members: significant other Smoking Status: Never smoker Family History Mother Diabetes mellitus Father No problems noted. Social History household members: significant other Smoking Status: Never smoker Exam Narrative Exam Narrative: GEN: 38M, tearful, no respiratory distress. Anxious. MOrbidly obese EYES: Pupils are equal, round, and reactive to light and accommodation. Extraoccular muscles are intact bilaterally. There is no subconjunctival hemorrhage or exudate. CHEST: Lungs are clear to auscultation bilaterally and free of wheezes, rales, or rhonchi. Heart rate is regular rhythm, there are no murmurs, clicks, rubs, or gallops. There is no chest wall tenderness. ABD: Abdomen is soft and nontender. There is no guarding or rebound. Bowel sounds are normal in all 4 quadrants. There is no mass or organomegaly. EXT: Full painless ROM of all extremities with no loss of sensation or strength. SKIN: Warm, pink, and dry. No erythema or rash Initial Vital Signs Initial Vital Signs: Vital Signs Temperature 98.0 F 02/13/19 06:14 Pulse Rate 102 H 02/13/19 06:14 Respiratory Rate 18 02/13/19 06:14 Blood Pressure 141/80 H 02/13/19 06:14 Pulse Oximetry 92 02/13/19 06:14 Course Orders Ordered: Discontinued Medications Olanzapine (Zyprexa Zydis) 20 mg PO NOW ONE Stop: 02/13/19 06:21 Last Admin: 02/13/19 06:26 Dose: 20 mg Vital Signs - 8 hr 02/13/19 06:14 Temperature 98.0 F Pulse Rate 102 H Respiratory Rate 18 Blood Pressure 141/80 H Pulse Oximetry 92 Discharge Plan Departure Patient Disposition: Home Clinical Impression: Anxiety Discharge Date/Time: 02/13/19 06:50 Interventions: ED Discharge Assessment Last Done: 02/13/19 06:50 Instructions: Anxiety Disorders Activity Restrictions/Additional Instructions: *You have been diagnosed with [ anxiety ] *What to do: *Take medications as directed *Follow up with your primary care provider in 2-3 days, call for an appointment. Let them know you were seen in the Emergency Department and that we ask that you be seen in follow up *Return to ER if you should have any new, worsening or concerning symptoms Prescriptions: New olanzapine 20 mg tablet,disintegrating 20 mg PO BEDTIME Qty: 30 RF: 0 No Action acetaminophen 325 mg Tablet 650 mg PO Q6HR PRN (Reason: Pain, Mild) Qty: 30 RF: 0 diphenhydramine HCl [Allergy (diphenhydramine)] 25 mg Tablet 25 mg PO Q6HR PRN (Reason: Itching) Qty: 30 RF: 0 nystatin [Nystop] 100,000 unit/gram Powder 1 applic topical TID PRN (Reason: abd folds/excoriation) Qty: 1 RF: 0 olanzapine 10 mg tablet 10 mg PO BEDTIME RF: 0 olanzapine 15 mg tablet,disintegrating 15 mg PO DAILY Qty: 3 RF: 0 albuterol sulfate 2.5 mg /3 mL (0.083 %) solution for nebulization 3 ml Inhalation QID PRN (Reason: Shortness Of Breath) RF: 0 albuterol sulfate 90 mcg/actuation HFA aerosol inhaler 2 - 4 puff Inhalation Q4-6H PRN (Reason: Shortness Of Breath) RF: 0 gabapentin [Neurontin] 300 mg Capsule 300 mg PO TID Qty: 180 RF: 0 methadone 10 mg tablet 60 mg PO DAILY Qty: 1 RF: 0 Referrals: Rama Hernández MD [Primary Care Provider] -
[2019-02-13] MEDS: OLANZapine ODT 10 MG TAB 20 MG PO (06:26)
== END 2019-02-13 06:50 | disposition home or self-care (01) ==
PROVIDERS: Emergency Provider Emergency Medicine; Family Provider Family Medicine; PCP Family Medicine
DX: F41.9 Anxiety disorder, unspecified (principal)
CPT/HCPCS: 93005; 99283

== ENCOUNTER 2019-02-14 12:37 | Emergency (ER) | payer OTHER, MEDICAID, SELFPAY ==
[2019-01-12 19:04] VITALS: BMI 72.8
[2019-02-14 12:38] VITALS: BP 148/98; PULSE 90; RESP 18; TEMP 36.7; O2SAT 91
--- NOTE | 2019-02-14 12:57 | ED.ANXIETY ---
HPI - Anxiety <Ana Dominguez PA-C - Last Filed: 02/14/19 18:52> General Chief Complaint: Anxiety Stated Complaint: Anxiety, CP Time Seen by Provider: 02/14/19 12:53 Source: patient and EMS Mode of arrival: EMS Limitations: no limitations History of Present Illness HPI narrative: This 38 year old male returns to ED with c/o worsening anxiety for the last 2-3 days. He states that he has shakiness, poor sleep, persistent anxiety which have continued. He states that he has also had palpitations/fluttering sensation and shooting pain intermittently today. He denies any radiation of the pain. He denies any new SOB or changes in asthma. He denies any n/v, has been eating normally, and denies any new swelling or pain in his arms or legs or any other complaints on systems review. He admits that he has been taking Zyprexa 20 mg b.i.d. for the better part of a month, states a higher dose works better for his anxiety, but ran out of his prescription in the last few days. He states his clinic was closed today. We have phoned his clinic, they are open today, and states that he is supposed to be on 10 mg of Zyprexa h.s. They were not aware that he had changed the dose even though he was just seen there. He is also seeing psychiatric nurse practitioner there and has an appointment tomorrow. Related Data Home Medications Medication Instructions Recorded Confirmed albuterol sulfate 2 - 4 puff INHALATION Q4-6H PRN 01/12/19 02/08/19 albuterol sulfate 3 ml INHALATION QID PRN 01/12/19 02/08/19 olanzapine 10 mg PO BEDTIME 02/08/19 02/08/19 Previous Rx's Medication Instructions Recorded acetaminophen 650 mg PO Q6HR PRN #30 tab 11/26/18 diphenhydramine HCl [Allergy 25 mg PO Q6HR PRN #30 tab 11/26/18 (diphenhydramine)] nystatin [Nystop] 1 applic TOPICAL TID PRN #1 pkg 11/26/18 gabapentin [Neurontin] 300 mg PO TID #180 cap 01/15/19 methadone 60 mg PO DAILY #1 tab 01/15/19 olanzapine 15 mg PO DAILY #3 tab 02/08/19 olanzapine 20 mg PO BEDTIME #30 tab 02/13/19 Allergies Allergy/AdvReac Type Severity Reaction Status Date / Time NSAIDS (Non-Steroidal Allergy Unknown ASTHMA Verified 02/14/19 12:46 Anti-Inflamma FLARE UPS [NSAIDS (NON-STEROIDAL ANTI-INFLAMMA] ibuprofen AdvReac Mild nausea, GI Verified 02/14/19 12:46 upset Review of Systems <Ana Dominguez PA-C - Last Filed: 02/14/19 18:52> Review of Systems ROS Unobtainable: All systems reviewed & are unremarkable except as noted in HPI and below PFSH <Ana Dominguez PA-C - Last Filed: 02/14/19 18:52> Medical History Anxiety (Chronic) Asthma (Chronic) Chronic skin ulcer (Chronic) Methadone use disorder, mild, in controlled environment (Chronic) Morbid obesity (Chronic) Pulmonary hypertension (Chronic) Surgical History H/O vertebral fracture repair (Chronic) History of hip surgery (Chronic) Family History Mother Diabetes mellitus Father No problems noted. Social History household members: significant other Smoking Status: Never smoker Social History household members: significant other Smoking Status: Never smoker Exam <Ana Dominguez PA-C - Last Filed: 02/14/19 18:52> Narrative Exam Narrative: GENERAL APPEARANCE: Patient sitting comfortably in wheelchair, in no distress. NECK/THYROID: Neck supple LUNGS: Faint expiratory wheezes that mostly clear with cough HEART: Regular rate and rhythm without murmur, normal S1, S2, no S3 or S4. ABDOMEN: Soft, obese, NT, ND, + BS x 4 quadrants EXTREMITIES: Moderate brawny edema, symmetric. No calf tenderness NEUROLOGIC: Alert, normal speech and coordination Initial Vital Signs Initial Vital Signs: Vital Signs Temperature 98.1 F 02/14/19 12:38 Pulse Rate 90 02/14/19 12:38 Respiratory Rate 18 02/14/19 12:38 Blood Pressure 148/98 H 02/14/19 12:38 Pulse Oximetry 91 02/14/19 12:38 <Maame Haynes MD - Last Filed: 02/16/19 08:36> Initial Vital Signs Initial Vital Signs: Vital Signs Temperature 98.1 F 02/14/19 12:38 Pulse Rate 90 02/14/19 12:38 Respiratory Rate 18 02/14/19 12:38 Blood Pressure 148/98 H 02/14/19 12:38 Pulse Oximetry 91 02/14/19 12:38 Course <Ana Dominguez PA-C - Last Filed: 02/14/19 18:52> Additional Information: Patient does not have any acute findings on exam today, appears as he typically does when he presents with anxiety episodes. He requested discharge home a while after Zyprexa. I did talk with his PCP, Dr. Hernández who states patient has been in the clinic basically daily, he did not tell them he adjusted medications on his own, and he was there this morning. He is also now seeing psychiatric nurse practitioner there. Dr. Hernández and I reviewed the frequency of his visits, and he is going to look into other resources for patient such as snf as he is not able to manage on his own Orders Ordered: Discontinued Medications Albuterol (Ventolin) 2.5 mg INH NOW ONE Stop: 02/14/19 13:03 Last Admin: 02/14/19 13:04 Dose: 2.5 mg Olanzapine (Zyprexa) 10 mg PO NOW ONE Stop: 02/14/19 13:42 Last Admin: 02/14/19 13:48 Dose: 10 mg Vital Signs - 8 hr 02/14/19 12:38 02/14/19 13:04 02/14/19 14:58 Temperature 98.1 F Pulse Rate 90 80 84 Respiratory Rate 18 14 22 Blood Pressure 148/98 H 125/67 Pulse Oximetry 91 96 93 <Maame Haynes MD - Last Filed: 02/16/19 08:36> Orders Ordered: Discontinued Medications Albuterol (Ventolin) 2.5 mg INH NOW ONE Stop: 02/14/19 13:03 Last Admin: 02/14/19 13:04 Dose: 2.5 mg Olanzapine (Zyprexa) 10 mg PO NOW ONE Stop: 02/14/19 13:42 Last Admin: 02/14/19 13:48 Dose: 10 mg Vital Signs - 8 hr 02/14/19 12:38 02/14/19 13:04 02/14/19 14:58 Temperature 98.1 F Pulse Rate 90 80 84 Respiratory Rate 18 14 22 Blood Pressure 148/98 H 125/67 Pulse Oximetry 91 96 93 MDM - Anxiety <Ana Dominguez PA-C - Last Filed: 02/14/19 18:52> Lab Data Attestation: I reviewed the patient's lab results. Result diagrams: 02/14/19 13:15 02/14/19 13:15 Lab Results 02/14/19 02/14/19 02/14/19 Range/Units 13:15 13:15 13:15 WBC 7.0 (4.5-11.0) X10^3/uL RBC 4.20 L (4.5-5.9) X10^6/uL Hgb 10.3 L (13.5-17.5) g/dL Hct 32.1 L (41-53) % MCV 76.4 L (80-100) fL MCH 24.5 L (26-34) PG MCHC 32.0 (30-36) % RDW 15.1 H (11.6-14.8) % Plt Count 130 L (150-400) X10^3/uL Neut % (Auto) 71.3 (50-75) % Lymph % (Auto) 17.6 L (25-40) % [place] % (Auto) 8.2 (3-14) % Eos % (Auto) 2.1 (2-4) % Baso % (Auto) 0.8 (0-2) % Neut # (Auto) 5000 (9751-9064) /uL Lymph # (Auto) 1200 (4708-8807) /uL [place] # (Auto) 600 (0-900) /uL Eos # (Auto) 100 (0-450) /uL Baso # (Auto) 100 (0-100) /uL PT 14.2 H (10.1-12.7) SECONDS INR 1.2 (0.9-1.3) APTT 36 D (26.4-36.2) SECONDS Sodium 140 (137-145) mmol/L Potassium 3.8 (3.4-5.1) mmol/L Chloride 101 (98-107) mmol/L Carbon Dioxide 34 H (22-32) mmol/L BUN 7 L (9-20) mg/dL Creatinine 0.60 L (0.66-1.25) mg/dL Estimated GFR > 60.0 (>60) mL/min BUN/Creatinine Ratio 11.7 (6-22) Glucose 96 (70-100) mg/dL Calcium 8.7 (8.4-10.2) mg/dL Total Bilirubin 0.5 (0.2-1.3) mg/dL AST 13 L (17-59) IU/L ALT < 6 L (21-72) IU/L Alkaline Phosphatase 79 (38-126) U/L Total Creatine Kinase 29 L (55-170) U/L CK-MB (CK-2) TNP CK-MB (CK-2) Rel Index TNP Troponin I < 0.012 (0.01-0.034) ng/mL B-Natriuretic Peptide (<100) Total Protein 7.1 (6.3-8.2) g/dL Albumin 3.7 (3.5-5.0) g/dL Globulin 3.4 (1.7-4.1) g/dL Albumin/Globulin Ratio 1.1 (1.0-2.8) // Range/Units 13:15 WBC (4.5-11.0) X10^3/uL RBC (4.5-5.9) X10^6/uL Hgb (13.5-17.5) g/dL Hct (41-53) % MCV (80-100) fL MCH (26-34) PG MCHC (30-36) % RDW (11.6-14.8) % Plt Count (150-400) X10^3/uL Neut % (Auto) (50-75) % Lymph % (Auto) (25-40) % [place] % (Auto) (3-14) % Eos % (Auto) (2-4) % Baso % (Auto) (0-2) % Neut # (Auto) (8492-2576) /uL Lymph # (Auto) (4379-3101) /uL [place] # (Auto) (0-900) /uL Eos # (Auto) (0-450) /uL Baso # (Auto) (0-100) /uL PT (10.1-12.7) SECONDS INR (0.9-1.3) APTT (26.4-36.2) SECONDS Sodium (137-145) mmol/L Potassium (3.4-5.1) mmol/L Chloride (98-107) mmol/L Carbon Dioxide (22-32) mmol/L BUN (9-20) mg/dL Creatinine (0.66-1.25) mg/dL Estimated GFR (>60) mL/min BUN/Creatinine Ratio (6-22) Glucose (70-100) mg/dL Calcium (8.4-10.2) mg/dL Total Bilirubin (0.2-1.3) mg/dL AST (17-59) IU/L ALT (21-72) IU/L Alkaline Phosphatase (38-126) U/L Total Creatine Kinase (55-170) U/L CK-MB (CK-2) CK-MB (CK-2) Rel Index Troponin I (0.01-0.034) ng/mL B-Natriuretic Peptide < 100 (<100) Total Protein (6.3-8.2) g/dL Albumin (3.5-5.0) g/dL Globulin (1.7-4.1) g/dL Albumin/Globulin Ratio (1.0-2.8) Imaging Data Chest x-ray: Radiologist's impression: [address] [address] XRay Report Signed Patient: Babatunde Fitzgerald KMR#: [id number] : 1980Acct:[id number] Age/Sex: 38 / MDate of Service: 02/14/19 Loc: ED Accession Number: [id number] Procedure: XR chest 1V Ordering Provider: Ana Dominguez P.A-C PROCEDURE: XR CHEST 1V INDICATIONS: chest pain TECHNIQUE: One view of the chest was acquired. COMPARISON: [facility], CR, XR CHEST 1V, 02/10/2019, 12:46. [facility], , XR CHEST 1V, 02/08/2019, 12:34. FINDINGS: Surgical changes and devices: None. Lungs and pleura: Lungs are edematous. No pleural effusions or pneumothorax. Mediastinum: Mediastinal contours appear normal. Heart size is moderately enlarged. Bones and chest wall: No suspicious bony lesions. Overlying soft tissues appear unremarkable. IMPRESSION: Large body habitus, reduced inspiration, alveolar edema, suspect acute cardiogenic pulmonary edema. Dictated by: Jesus Bueno M.D. on 02/14/2019 at 13:53 Approved by: Jesus Bueno M.D. on 02/14/2019 at 13:54 ECG Data Attestation: I personally reviewed and interpreted this ECG as follows: (S rhythm with rate 93, no acute change) Prior ECG tracings: available for review <Maame Haynes MD - Last Filed: 02/16/19 08:36> Lab Data Lab Results 02/14/19 02/14/19 02/14/19 Range/Units 13:15 13:15 13:15 WBC 7.0 (4.5-11.0) X10^3/uL RBC 4.20 L (4.5-5.9) X10^6/uL Hgb 10.3 L (13.5-17.5) g/dL Hct 32.1 L (41-53) % MCV 76.4 L (80-100) fL MCH 24.5 L (26-34) PG MCHC 32.0 (30-36) % RDW 15.1 H (11.6-14.8) % Plt Count 130 L (150-400) X10^3/uL Neut % (Auto) 71.3 (50-75) % Lymph % (Auto) 17.6 L (25-40) % [place] % (Auto) 8.2 (3-14) % Eos % (Auto) 2.1 (2-4) % Baso % (Auto) 0.8 (0-2) % Neut # (Auto) 5000 (3919-5772) /uL Lymph # (Auto) 1200 (8417-4353) /uL [place] # (Auto) 600 (0-900) /uL Eos # (Auto) 100 (0-450) /uL Baso # (Auto) 100 (0-100) /uL PT 14.2 H (10.1-12.7) SECONDS INR 1.2 (0.9-1.3) APTT 36 D (26.4-36.2) SECONDS Sodium 140 (137-145) mmol/L Potassium 3.8 (3.4-5.1) mmol/L Chloride 101 (98-107) mmol/L Carbon Dioxide 34 H (22-32) mmol/L BUN 7 L (9-20) mg/dL Creatinine 0.60 L (0.66-1.25) mg/dL Estimated GFR > 60.0 (>60) mL/min BUN/Creatinine Ratio 11.7 (6-22) Glucose 96 (70-100) mg/dL Calcium 8.7 (8.4-10.2) mg/dL Total Bilirubin 0.5 (0.2-1.3) mg/dL AST 13 L (17-59) IU/L ALT < 6 L (21-72) IU/L Alkaline Phosphatase 79 (38-126) U/L Total Creatine Kinase 29 L (55-170) U/L CK-MB (CK-2) TNP CK-MB (CK-2) Rel Index TNP Troponin I < 0.012 (0.01-0.034) ng/mL B-Natriuretic Peptide (<100) Total Protein 7.1 (6.3-8.2) g/dL Albumin 3.7 (3.5-5.0) g/dL Globulin 3.4 (1.7-4.1) g/dL Albumin/Globulin Ratio 1.1 (1.0-2.8) // Range/Units 13:15 WBC (4.5-11.0) X10^3/uL RBC (4.5-5.9) X10^6/uL Hgb (13.5-17.5) g/dL Hct (41-53) % MCV (80-100) fL MCH (26-34) PG MCHC (30-36) % RDW (11.6-14.8) % Plt Count (150-400) X10^3/uL Neut % (Auto) (50-75) % Lymph % (Auto) (25-40) % [place] % (Auto) (3-14) % Eos % (Auto) (2-4) % Baso % (Auto) (0-2) % Neut # (Auto) (3587-1409) /uL Lymph # (Auto) (5488-4266) /uL [place] # (Auto) (0-900) /uL Eos # (Auto) (0-450) /uL Baso # (Auto) (0-100) /uL PT (10.1-12.7) SECONDS INR (0.9-1.3) APTT (26.4-36.2) SECONDS Sodium (137-145) mmol/L Potassium (3.4-5.1) mmol/L Chloride (98-107) mmol/L Carbon Dioxide (22-32) mmol/L BUN (9-20) mg/dL Creatinine (0.66-1.25) mg/dL Estimated GFR (>60) mL/min BUN/Creatinine Ratio (6-22) Glucose (70-100) mg/dL Calcium (8.4-10.2) mg/dL Total Bilirubin (0.2-1.3) mg/dL AST (17-59) IU/L ALT (21-72) IU/L Alkaline Phosphatase (38-126) U/L Total Creatine Kinase (55-170) U/L CK-MB (CK-2) CK-MB (CK-2) Rel Index Troponin I (0.01-0.034) ng/mL B-Natriuretic Peptide < 100 (<100) Total Protein (6.3-8.2) g/dL Albumin (3.5-5.0) g/dL Globulin (1.7-4.1) g/dL Albumin/Globulin Ratio (1.0-2.8) Discharge Plan Departure Patient Disposition: Home Clinical Impression: Anxiety attack Discharge Date/Time: 02/14/19 14:57 Interventions: ED Discharge Assessment Last Done: 02/14/19 14:58 Instructions: DI for Anxiety -- Adult Activity Restrictions/Additional Instructions: Since you are starting to feel better, you can return home today. There was no problem found on your testing to explain your anxiety or chest discomfort, and I suspect that this is a reaction to being off of your Zyprexa as there is a time correlation. We have given you a dose of that to help today. You need to work with your clinic on treating the anxiety and adjusting the dose or adding medicines instead of changing the dose on your own. Treating anxiety is a long-term process, it will not get better overnight. Please follow-up with your clinic tomorrow as you have planned. Please return if you have symptoms such as acutely worsening chest pain, new difficulty breathing, vomiting or feeling like you will pass out in the interim. Prescriptions: No Action acetaminophen 325 mg Tablet 650 mg PO Q6HR PRN (Reason: Pain, Mild) Qty: 30 RF: 0 diphenhydramine HCl [Allergy (diphenhydramine)] 25 mg Tablet 25 mg PO Q6HR PRN (Reason: Itching) Qty: 30 RF: 0 nystatin [Nystop] 100,000 unit/gram Powder 1 applic topical TID PRN (Reason: abd folds/excoriation) Qty: 1 RF: 0 olanzapine 10 mg tablet 10 mg PO BEDTIME RF: 0 olanzapine 15 mg tablet,disintegrating 15 mg PO DAILY Qty: 3 RF: 0 olanzapine 20 mg tablet,disintegrating 20 mg PO BEDTIME Qty: 30 RF: 0 albuterol sulfate 2.5 mg /3 mL (0.083 %) solution for nebulization 3 ml Inhalation QID PRN (Reason: Shortness Of Breath) RF: 0 albuterol sulfate 90 mcg/actuation HFA aerosol inhaler 2 - 4 puff Inhalation Q4-6H PRN (Reason: Shortness Of Breath) RF: 0 gabapentin [Neurontin] 300 mg Capsule 300 mg PO TID Qty: 180 RF: 0 methadone 10 mg tablet 60 mg PO DAILY Qty: 1 RF: 0 Referrals: Rmaa Hernández MD [Primary Care Provider] -
--- NOTE | 2019-02-14 13:02 | PC.NURSE ---
Called [facility] ([phone]) and spoke w/ staff to coordinate care. Pt told me center was closed today. Pt states he takes zyprexa 20 mg bid and they increased it. Spoke w/ nurse who will fax last visit notes (pt was seen today @ [facility]) and is on zyprexa 10 mg po hs. Discussed w/ nurse that Babatunde appears to be taking to much zyprexa and then has multiple visits to ED when he runs out. She will ask pt's primary doc call ED and speak w/ Nimisha Conner in attempt to coordinate care plan. Babatunde is at baseline work of breathing per his report. He states chest pain is associated w/ movement and he denies nausea / vomiting. Pt is able to speak in full sentences and roll himself in w/c to bathroom independently w/o increased pain or shortness of breath.
[2019-02-14 13:04] VITALS: PULSE 80; RESP 14; O2SAT 96
[2019-02-14] MEDS: ALBUTEROL 2.5 MG/3 ML NEB (ADULT) INH (13:04)
--- NOTE | 2019-02-14 13:08 | DI.RAD.S_ITS ---
PROCEDURE: XR CHEST 1V INDICATIONS: chest pain TECHNIQUE: One view of the chest was acquired. COMPARISON: [facility], CR, XR CHEST 1V, 02/10/2019, 12:46. [facility], CR, XR CHEST 1V, 02/08/2019, 12:34. FINDINGS: Surgical changes and devices: None. Lungs and pleura: Lungs are edematous. No pleural effusions or pneumothorax. Mediastinum: Mediastinal contours appear normal. Heart size is moderately enlarged. Bones and chest wall: No suspicious bony lesions. Overlying soft tissues appear unremarkable. IMPRESSION: Large body habitus, reduced inspiration, alveolar edema, suspect acute cardiogenic pulmonary edema. Dictated by: Jesus Bueno M.D. on 02/14/2019 at 13:53 Approved by: Jesus Bueno M.D. on 02/14/2019 at 13:54
--- NOTE | 2019-02-14 13:17 | ED_ITS ---
HPI - Anxiety <Ana Dominguez PA-C - Last Filed: 02/14/19 18:52> General Chief Complaint: Anxiety Stated Complaint: Anxiety, CP Time Seen by Provider: 02/14/19 12:53 Source: patient and EMS Mode of arrival: EMS Limitations: no limitations History of Present Illness HPI narrative: This 38 year old male returns to ED with c/o worsening anxiety for the last 2-3 days. He states that he has shakiness, poor sleep, persistent anxiety which have continued. He states that he has also had palp itations/fluttering sensation and shooting pain intermittently today. He denies any radiation of the pain. He denies any new SOB or changes in asthma. He denies any n/v, has been eating normally, and denies any new swelling or pain in his arms or legs or any other complaints on systems review. He admits that he has been taking Zyprexa 20 mg b.i.d. for the better part of a month, states a higher dose works better for his anxiety, but ran out of his prescription in the last few days. He states his clinic was closed today. We have phoned his clinic, they are open today, and states that he is supposed to be on 10 mg of Zyprexa h.s. They were not aware that he had changed the dose even though he was just seen there. He is also seeing psychiatric nurse practitioner there and has an appointment tomorrow. Related Data Home Medications Medication Instructions Recorded Confirmed albuterol sulfate 2 - 4 puff INHALATION Q4-6H PRN 01/12/19 02/08/19 albuterol sulfate 3 ml INHALATION QID PRN 01/12/19 02/08/19 olanzapine 10 mg PO BEDTIME 02/08/19 02/08/19 Previous Rx's Medication Instructions Recorded acetaminophen 650 mg PO Q6HR PRN #30 tab 11/26/18 diphenhydramine HCl [Allergy 25 mg PO Q6HR PRN #30 tab 11/26/18 (diphenhydramine)] nystatin [Nystop] 1 applic TOPICAL TID PRN #1 pkg 11/26/18 gabapentin [Neurontin] 300 mg PO TID #180 cap 01/15/19 methadone 60 mg PO DAILY #1 tab 01/15/19 olanzapine 15 mg PO DAILY #3 tab 02/08/19 olanzapine 20 mg PO BEDTIME #30 tab 02/13/19 Allergies Allergy/AdvReac Type Severity Reaction Status Date / Time NSAIDS (Non-Steroidal Allergy Unknown ASTHMA Verified 02/14/19 12:46 Anti-Inflamma FLARE UPS [NSAIDS (NON-STEROIDAL ANTI-INFLAMMA] ibuprofen AdvReac Mild nausea, GI Verified 02/14/19 12:46 upset Review of Systems <Ana Dominguez PA-C - Last Filed: 02/14/19 18:52> Review of Systems ROS Unobtainable: All systems reviewed & are unremarkable except as noted in HPI and below PFSH <Ana Dominguez PA-C - Last Filed: 02/14/19 18:52> Medical History Anxiety (Chronic) Asthma (Chronic) Chronic skin ulcer (Chronic) Methadone use disorder, mild, in controlled environment (Chronic) Morbid obesity (Chronic) Pulmonary hypertension (Chronic) Surgical History H/O vertebral fracture repair (Chronic) History of hip surgery (Chronic) Family History Mother Diabetes mellitus Father No problems noted. Social History household members: significant other Smoking Status: Never smoker Social History household members: significant other Smoking Status: Never smoker Exam <Ana Dominguez PA-C - Last Filed: 02/14/19 18:52> Narrative Exam Narrative: GENERAL APPEARANCE: Patient sitting comfortably in wheelchair, in no distress. NECK/THYROID: Neck supple LUNGS: Faint expiratory wheezes that mostly clear with cough HEART: Regular rate and rhythm without murmur, normal S1, S2, no S3 or S4. ABDOMEN: Soft, obese, NT, ND, + BS x 4 quadrants EXTREMITIES: Moderate brawny edema, symmetric. No calf tenderness NEUROLOGIC: Alert, normal speech and coordination Initial Vital Signs Initial Vital Signs: Vital Signs Temperature 98.1 F 02/14/19 12:38 Pulse Rate 90 02/14/19 12:38 Respiratory Rate 18 05/28/19 12:38 Blood Pressure 148/98 H 02/14/19 12:38 Pulse Oximetry 91 02/14/19 12:38 <Maame Haynes MD - Last Filed: 02/16/19 08:36> Initial Vital Signs Initial Vital Signs: Vital Signs Temperature 98.1 F 02/14/19 12:38 Pulse Rate 90 02/14/19 12:38 Respiratory Rate 18 02/14/19 12:38 Blood Pressure 148/98 H 02/14/19 12:38 Pulse Oximetry 91 02/14/19 12:38 Course <Ana Dominguez PA-C - Last Filed: 02/14/19 18:52> Additional Information: Patient does not have any acute findings on exam today, appears as he typically does when he presents with anxiety episodes. He requested discharge home a while after Zyprexa. I did talk with his PCP, Dr. Hernández who states patient has been in the clinic basically daily, he did not tell them he adjusted medications on his own, and he was there this morning. He is also now seeing psychiatric nurse practitioner there. Dr. Hernández and I reviewed the frequency of his visits, and he is going to look into other resources for patient such as residential as he is not able to manage on his own Orders Ordered: Discontinued Medications Albuterol (Ventolin) 2.5 mg INH NOW ONE Stop: 02/14/19 13:03 Last Admin: 02/14/19 13:04 Dose: 2.5 mg Olanzapine (Zyprexa) 10 mg PO NOW ONE Stop: 02/14/19 13:42 Last Admin: 02/14/19 13:48 Dose: 10 mg Vital Signs - 8 hr 02/14/19 12:38 02/14/19 13:04 02/14/19 14:58 Temperature 98.1 F Pulse Rate 90 80 84 Respiratory Rate 18 14 22 Blood Pressure 148/98 H 125/67 Pulse Oximetry 91 96 93 <Maame Haynes MD - Last Filed: 02/16/19 08:36> Orders Ordered: Discontinued Medications Albuterol (Ventolin) 2.5 mg INH NOW ONE Stop: 02/14/19 13:03 Last Admin: 02/14/19 13:04 Dose: 2.5 mg Olanzapine (Zyprexa) 10 mg PO NOW ONE Stop: 02/14/19 13:42 Last Admin: 02/14/19 13:48 Dose: 10 mg Vital Signs - 8 hr 02/14/19 12:38 02/14/19 13:04 02/14/19 14:58 Temperature 98.1 F Pulse Rate 90 80 84 Respiratory Rate 18 14 22 Blood Pressure 148/98 H 125/67 Pulse Oximetry 91 96 93 MDM - Anxiety <Ana Dominguez PA-C - Last Filed: 02/14/19 18:52> Lab Data Attestation: I reviewed the patient's lab results. Result diagrams: 02/14/19 13:15 02/14/19 13:15 Lab Results 02/14/19 02/14/19 02/14/19 Range/Units 13:15 13:15 13:15 WBC 7.0 (4.5-11.0) X10^3/uL RBC 4.20 L (4.5-5.9) X10^6/uL Hgb 10.3 L (13.5-17.5) g/dL Hct 32.1 L (41-53) % MCV 76.4 L (80-100) fL MCH 24.5 L (26-34) PG MCHC 32.0 (30-36) % RDW 15.1 H (11.6-14.8) % Plt Count 130 L (150-400) X10^3/uL Neut % (Auto) 71.3 (50-75) % Lymph % (Auto) 17.6 L (25-40) % Piute % (Auto) 8.2 (3-14) % Eos % (Auto) 2.1 (2-4) % Baso % (Auto) 0.8 (0-2) % Neut # (Auto) 5000 (7383-7756) /uL Lymph # (Auto) 1200 (6654-9229) /uL Piute # (Auto) 600 (0-900) /uL Eos # (Auto) 100 (0-450) /uL Baso # (Auto) 100 (0-100) /uL PT 14.2 H (10.1-12.7) SECONDS INR 1.2 (0.9-1.3) APTT 36 D (26.4-36.2) SECONDS Sodium 140 (137-145) mmol/L Potassium 3.8 (3.4-5.1) mmol/L Chloride 101 (98-107) mmol/L Carbon Dioxide 34 H (22-32) mmol/L BUN 7 L (9-20) mg/dL Creatinine 0.60 L (0.66-1.25) mg/dL Estimated GFR > 60.0 (>60) mL/min BUN/Creatinine Ratio 11.7 (6-22) Glucose 96 (70-100) mg/dL Calcium 8.7 (8.4-10.2) mg/dL Total Bilirubin 0.5 (0.2-1.3) mg/dL AST 13 L (17-59) IU/L ALT < 6 L (21-72) IU/L Alkaline Phosphatase 79 (38-126) U/L Total Creatine Kinase 29 L (55-170) U/L CK-MB (CK-2) TNP CK-MB (CK-2) Rel Index TNP Troponin I < 0.012 (0.01-0.034) ng/mL B-Natriuretic Peptide (<100) Total Protein 7.1 (6.3-8.2) g/dL Albumin 3.7 (3.5-5.0) g/dL Globulin 3.4 (1.7-4.1) g/dL Albumin/Globulin Ratio 1.1 (1.0-2.8) // Range/Units 13:15 WBC (4.5-11.0) X10^3/uL RBC (4.5-5.9) X10^6/uL Hgb (13.5-17.5) g/dL Hct (41-53) % MCV (80-100) fL MCH (26-34) PG MCHC (30-36) % RDW (11.6-14.8) % Plt Count (150-400) X10^3/uL Neut % (Auto) (50-75) % Lymph % (Auto) (25-40) % Piute % (Auto) (3-14) % Eos % (Auto) (2-4) % Baso % (Auto) (0-2) % Neut # (Auto) (9523-7488) /uL Lymph # (Auto) (8318-0454) /uL Piute # (Auto) (0-900) /uL Eos # (Auto) (0-450) /uL Baso # (Auto) (0-100) /uL PT (10.1-12.7) SECONDS INR (0.9-1.3) APTT (26.4-36.2) SECONDS Sodium (137-145) mmol/L Potassium (3.4-5.1) mmol/L Chloride (98-107) mmol/L Carbon Dioxide (22-32) mmol/L BUN (9-20) mg/dL Creatinine (0.66-1.25) mg/dL Estimated GFR (>60) mL/min BUN/Creatinine Ratio (6-22) Glucose (70-100) mg/dL Calcium (8.4-10.2) mg/dL Total Bilirubin (0.2-1.3) mg/dL AST (17-59) IU/L ALT (21-72) IU/L Alkaline Phosphatase (38-126) U/L Total Creatine Kinase (55-170) U/L CK-MB (CK-2) CK-MB (CK-2) Rel Index Troponin I (0.01-0.034) ng/mL B-Natriuretic Peptide < 100 (<100) Total Protein (6.3-8.2) g/dL Albumin (3.5-5.0) g/dL Globulin (1.7-4.1) g/dL Albumin/Globulin Ratio (1.0-2.8) Imaging Data Chest x-ray: Radiologist's impression: [address] [address] XRay Report Signed Patient: Babatunde Fitzgerald KMR#: [id number] : 1980Acct:[id number] Age/Sex: 38 / MDate of Service: 02/14/19 Loc: ED Accession Number: [id number] Procedure: XR chest 1V Ordering Provider: Ana Dominguez P.A-C PROCEDURE: XR CHEST 1V INDICATIONS: chest pain TECHNIQUE: One view of the chest was acquired. COMPARISON: [facility], CR, XR CHEST 1V, 02/10/2019, 12:46. [facility], , XR CHEST 1V, 02/08/2019, 12:34. FINDINGS: Surgical changes and devices: None. Lungs and pleura: Lungs are edematous. No pleural effusions or pneumothorax. Mediastinum: Mediastinal contours appear normal. Heart size is moderately enlarged. Bones and chest wall: No suspicious bony lesions. Overlying soft tissues appear unremarkable. IMPRESSION: Large body habitus, reduced inspiration, alveolar edema, suspect acute cardiogenic pulmonary edema. Dictated by: Jesus Bueno M.D. on 02/14/2019 at 13:53 Approved by: Jesus Bueno M.D. on 02/14/2019 at 13:54 ECG Data Attestation: I personally reviewed and interpreted this ECG as follows: (S rhythm with rate 93, no acute change) Prior ECG tracings: available for review <Maame Haynes MD - Last Filed: 02/16/19 08:36> Lab Data Lab Results 02/14/19 02/14/19 02/14/19 Range/Units 13:15 13:15 13:15 WBC 7.0 (4.5-11.0) X10^3/uL RBC 4.20 L (4.5-5.9) X10^6/uL Hgb 10.3 L (13.5-17.5) g/dL Hct 32.1 L (41-53) % MCV 76.4 L (80-100) fL MCH 24.5 L (26-34) PG MCHC 32.0 (30-36) % RDW 15.1 H (11.6-14.8) % Plt Count 130 L (150-400) X10^3/uL Neut % (Auto) 71.3 (50-75) % Lymph % (Auto) 17.6 L (25-40) % Piute % (Auto) 8.2 (3-14) % Eos % (Auto) 2.1 (2-4) % Baso % (Auto) 0.8 (0-2) % Neut # (Auto) 5000 (7772-2526) /uL Lymph # (Auto) 1200 (1270-0874) /uL Piute # (Auto) 600 (0-900) /uL Eos # (Auto) 100 (0-450) /uL Baso # (Auto) 100 (0-100) /uL PT 14.2 H (10.1-12.7) SECONDS INR 1.2 (0.9-1.3) APTT 36 D (26.4-36.2) SECONDS Sodium 140 (137-145) mmol/L Potassium 3.8 (3.4-5.1) mmol/L Chloride 101 (98-107) mmol/L Carbon Dioxide 34 H (22-32) mmol/L BUN 7 L (9-20) mg/dL Creatinine 0.60 L (0.66-1.25) mg/dL Estimated GFR > 60.0 (>60) mL/min BUN/Creatinine Ratio 11.7 (6-22) Glucose 96 (70-100) mg/dL Calcium 8.7 (8.4-10.2) mg/dL Total Bilirubin 0.5 (0.2-1.3) mg/dL AST 13 L (17-59) IU/L ALT < 6 L (21-72) IU/L Alkaline Phosphatase 79 (38-126) U/L Total Creatine Kinase 29 L (55-170) U/L CK-MB (CK-2) TNP CK-MB (CK-2) Rel Index TNP Troponin I < 0.012 (0.01-0.034) ng/mL B-Natriuretic Peptide (<100) Total Protein 7.1 (6.3-8.2) g/dL Albumin 3.7 (3.5-5.0) g/dL Globulin 3.4 (1.7-4.1) g/dL Albumin/Globulin Ratio 1.1 (1.0-2.8) // Range/Units 13:15 WBC (4.5-11.0) X10^3/uL RBC (4.5-5.9) X10^6/uL Hgb (13.5-17.5) g/dL Hct (41-53) % MCV (80-100) fL MCH (26-34) PG MCHC (30-36) % RDW (11.6-14.8) % Plt Count (150-400) X10^3/uL Neut % (Auto) (50-75) % Lymph % (Auto) (25-40) % Piute % (Auto) (3-14) % Eos % (Auto) (2-4) % Baso % (Auto) (0-2) % Neut # (Auto) (8039-8460) /uL Lymph # (Auto) (8320-2270) /uL Piute # (Auto) (0-900) /uL Eos # (Auto) (0-450) /uL Baso # (Auto) (0-100) /uL PT (10.1-12.7) SECONDS INR (0.9-1.3) APTT (26.4-36.2) SECONDS Sodium (137-145) mmol/L Potassium (3.4-5.1) mmol/L Chloride (98-107) mmol/L Carbon Dioxide (22-32) mmol/L BUN (9-20) mg/dL Creatinine (0.66-1.25) mg/dL Estimated GFR (>60) mL/min BUN/Creatinine Ratio (6-22) Glucose (70-100) mg/dL Calcium (8.4-10.2) mg/dL Total Bilirubin (0.2-1.3) mg/dL AST (17-59) IU/L ALT (21-72) IU/L Alkaline Phosphatase (38-126) U/L Total Creatine Kinase (55-170) U/L CK-MB (CK-2) CK-MB (CK-2) Rel Index Troponin I (0.01-0.034) ng/mL B-Natriuretic Peptide < 100 (<100) Total Protein (6.3-8.2) g/dL Albumin (3.5-5.0) g/dL Globulin (1.7-4.1) g/dL Albumin/Globulin Ratio (1.0-2.8) Discharge Plan Departure Patient Disposition: Home Clinical Impression: Anxiety attack Discharge Date/Time: 02/14/19 14:57 Interventions: ED Discharge Assessment Last Done: 02/14/19 14:58 Instructions: DI for Anxiety -- Adult Activity Restrictions/Additional Instructions: Since you are starting to feel better, you can return home today. There was no problem found on your testing to explain your anxiety or chest discomfort, and I suspect that this is a reaction to being off of your Zyprexa as there is a time correlation. We have given you a dose of that to help today. You need to work with your clinic on treating the anxiety and adjusting the dose or adding medicines instead of changing the dose on your own. Treating anxiety is a long- term process, it will not get better overnight. Please follow-up with your clinic tomorrow as you have planned. Please return if you have symptoms such as acutely worsening chest pain, new difficulty breathing, vomiting or feeling like you will pass out in the interim. Prescriptions: No Action acetaminophen 325 mg Tablet 650 mg PO Q6HR PRN (Reason: Pain, Mild) Qty: 30 RF: 0 diphenhydramine HCl [Allergy (diphenhydramine)] 25 mg Tablet 25 mg PO Q6HR PRN (Reason: Itching) Qty: 30 RF: 0 nystatin [Nystop] 100,000 unit/gram Powder 1 applic topical TID PRN (Reason: abd folds/excoriation) Qty: 1 RF: 0 olanzapine 10 mg tablet 10 mg PO BEDTIME RF: 0 olanzapine 15 mg tablet,disintegrating 15 mg PO DAILY Qty: 3 RF: 0 olanzapine 20 mg tablet,disintegrating 20 mg PO BEDTIME Qty: 30 RF: 0 albuterol sulfate 2.5 mg /3 mL (0.083 %) solution for nebulization 3 ml Inhalation QID PRN (Reason: Shortness Of Breath) RF: 0 albuterol sulfate 90 mcg/actuation HFA aerosol inhaler 2 - 4 puff Inhalation Q4-6H PRN (Reason: Shortness Of Breath) RF: 0 gabapentin [Neurontin] 300 mg Capsule 300 mg PO TID Qty: 180 RF: 0 methadone 10 mg tablet 60 mg PO DAILY Qty: 1 RF: 0 Referrals: Rama Hernández MD [Primary Care Provider] -
[2019-02-14 13:22] LABS: Add Manual Diff / Slide Review NO; Basophils Absolute Auto 100 /uL (0-100); Basophils Percent Auto 0.8 % (0-2); Eosinophils Absolute Auto 100 /uL (0-450); Eosinophils Percent Auto 2.1 % (2-4); Hematocrit 32.1 % (41-53); Hemoglobin 10.3 g/dL (13.5-17.5); Lymphocytes Absolute Auto 1200 /uL (1100-4500); Lymphocytes Percent Auto 17.6 % (25-40); Mean Corpuscular Hemoglobin 24.5 PG (26-34); Mean Corpuscular Volume 76.4 fL (80-100); Monocytes Absolute Auto 600 /uL (0-900); Monocytes Percent Auto 8.2 % (3-14); Neutrophils Absolute Auto 5000 /uL (1500-7000); Neutrophils Percent Auto 71.3 % (50-75); Platelet Count 130 X10^3/uL (150-400); Red Cell Distribution Width 15.1 % (11.6-14.8)
[2019-02-14 13:37] LABS: INR 1.2 (0.9-1.3); Prothrombin Time 14.2 SECONDS (10.1-12.7)
[2019-02-14 13:40] LABS: PTT Partial Thromboplastin Tim 36 SECONDS (26.4-36.2)
[2019-02-14 13:43] LABS: Albumin 3.7 g/dL (3.5-5.0); Albumin Globulin Ratio 1.1 (1.0-2.8); Alkaline Phosphatase 79 U/L (38-126); Aspartate Aminotransferase 13 IU/L (17-59); BUN Creatinine Ratio 11.7 (6-22); Bilirubin Total 0.5 mg/dL (0.2-1.3); Blood Urea Nitrogen 7 mg/dL (9-20); Calcium 8.7 mg/dL (8.4-10.2); Carbon Dioxide 34 mmol/L (22-32); Chloride 101 mmol/L (98-107); Creatine Kinase 29 U/L (55-170); Estimated Glomerular Filt Rate > 60.0 mL/min (>60); Globulin 3.4 g/dL (1.7-4.1); Glucose 96 mg/dL (70-100); HEMOLYSIS < 15 (0-50); Potassium 3.8 mmol/L (3.4-5.1); Sodium 140 mmol/L (137-145); Total Protein 7.1 g/dL (6.3-8.2)
[2019-02-14] MEDS: OLANZapine 2.5 MG TABLET 10 MG PO (13:48)
[2019-02-14 13:54] LABS: Troponin I < 0.012 ng/mL (0.01-0.034)
[2019-02-14 14:02] LABS: Alanine Aminotransferase < 6 IU/L (21-72)
[2019-02-14 14:29] LABS: B Type Natriuretic Peptide < 100 (<100)
[2019-02-14 14:58] VITALS: BP 125/67; PULSE 84; RESP 22; O2SAT 93
== END 2019-02-14 14:57 | disposition home or self-care (01) ==
PROVIDERS: Emergency Medicine; Emergency Provider Internal Medicine; Family Provider Family Medicine; PCP Family Medicine
DX: F41.0 Panic disorder [episodic paroxysmal anxiety] (principal); R07.89 Other chest pain
CPT/HCPCS: 36415; 71045; 80053; 82550; 83880; 84484; 85025; 85610; 85730; 93005; 94640; 99282; 99285; J7613

== ENCOUNTER 2019-02-17 12:14 | Inpatient (IN) | payer MEDICAID, OTHER, SELFPAY ==
[2019-01-12 19:04] VITALS: BMI 72.8
[2019-02-17] VITALS (9 sets, daily range): BP systolic 102–127; BP diastolic 53–66; PULSE 79–95; RESP 12–26; TEMP 36.7; O2SAT 82–100; BMI 68.7; BMI 68.8
--- NOTE | 2019-02-17 12:30 | ED.FEVER ---
HPI - Fever <LIZBETH Jeter - Last Filed: 02/17/19 23:37> General Chief Complaint: Fever Stated Complaint: Fever/generalized weakness Time Seen by Provider: 02/17/19 12:28 Source: patient Mode of arrival: EMS Limitations: physical limitation History of Present Illness HPI Narrative: A 38-year-old with history of asthma, morbid obesity, and multiple pressure ulcers, presents emergency department today complaining of shortness of breath with fever and chills starting this morning. Associated cough for the past few days as productive with clear mucus. Associated diffuse chest pain that is worse with coughing. Denies sick contacts, denies nausea, vomiting, diarrhea, headaches, dizziness, loss of vision. States that he has pressure ulcers on his legs that were dressed yesterday. Related Data Home Medications Medication Instructions Recorded Confirmed albuterol sulfate 2 - 4 puff INHALATION Q4-6H PRN 01/12/19 02/17/19 albuterol sulfate 3 ml INHALATION QID PRN 01/12/19 02/17/19 olanzapine 10 mg PO DAILY 02/17/19 02/17/19 Previous Rx's Medication Instructions Recorded acetaminophen 650 mg PO Q6HR PRN #30 tab 11/26/18 diphenhydramine HCl [Allergy 25 mg PO Q6HR PRN #30 tab 11/26/18 (diphenhydramine)] nystatin [Nystop] 1 applic TOPICAL TID PRN #1 pkg 11/26/18 gabapentin [Neurontin] 300 mg PO TID #180 cap 01/15/19 methadone 60 mg PO DAILY #1 tab 01/15/19 Allergies Allergy/AdvReac Type Severity Reaction Status Date / Time NSAIDS (Non-Steroidal Allergy Unknown ASTHMA Verified 02/14/19 12:46 Anti-Inflamma FLARE UPS [NSAIDS (NON-STEROIDAL ANTI-INFLAMMA] ibuprofen AdvReac Mild nausea, GI Verified 02/14/19 12:46 upset Review of Systems <LIZBETH Jeter - Last Filed: 02/17/19 23:37> Review of Systems REVIEW OF SYSTEMS: GENERAL: Complaints of fever, see HPI. HENT: No head trauma, hearing loss, rhinorrhea, epistaxis, sinus pressure, sore throat, or dysphagia. EYES: No loss of vision, double vision, eye pain, or irritation. CARDIOVASCULAR: Complains of chest congestion, see HPI. RESPIRATORY: Complains of cough and shortness of breath, see HPI. GASTROINTESTINAL: No change in appetite, nausea, vomiting, stool changes, or melena. GENITOURINARY: No flank pain, urinary incontinence, hesitancy, frequency, or dysuria. No vaginal discharge or dyspareunia. MUSCULOSKELETAL: No pain, weakness, or deformities. INTEGUMENTARY: Reports chronic pressure ulcers to bilateral posterior thighs and posterior part of the scrotum. States his dressings were changed yesterday. NEURO: No numbness, tingling, memory loss, confusion, or headaches. PSYCH: Reports history of anxiety, states that he is anxious at this time. ENDOCRINOLOGY: No hair loss of temperature intolerance. HEMATOLOGY: No easy bruising. LYMPHATIC: No lymphadenopathy. PFSH <LIZBETH Jeter - Last Filed: 02/17/19 23:37> Medical History Anxiety (Chronic) Asthma (Chronic) Chronic skin ulcer (Chronic) Methadone use disorder, mild, in controlled environment (Chronic) Morbid obesity (Chronic) Pulmonary hypertension (Chronic) Surgical History H/O vertebral fracture repair (Chronic) History of hip surgery (Chronic) Family History Mother Diabetes mellitus Father No problems noted. Social History household members: significant other Smoking Status: Never smoker Family History Mother Diabetes mellitus Father No problems noted. Social History household members: significant other Smoking Status: Never smoker Exam <LIZBETH Jeter - Last Filed: 02/17/19 23:37> Initial Vital Signs Initial Vital Signs: Vital Signs Temperature 98.1 F 02/17/19 12:22 Pulse Rate 92 H 02/17/19 12:22 Respiratory Rate 26 H 02/17/19 12:22 Blood Pressure 127/59 L 02/17/19 12:22 Pulse Oximetry 88 L 02/17/19 12:22 PHYSICAL EXAMINATION: GENERAL: Morbidly obese poor hygiene. Alert and awake upon initial exam. Answers questions promptly and appropriately. Vital signs noted, oxygen saturation improved after nebulizer and supplemental O2. HENT: Normocephalic, atraumatic. . Oral mucosa is dry. Pharynx without erythema. EYES: PERRLA, EOMIs, conjunctiva pink, sclera white, no periorbital swelling. LYMPH: No lymphadenopathy. CHEST: Normal to inspection and without deformities. CARDIOVASCULAR: S1 and S2 sounds normal. Regular rate and rhythm, no murmurs, clicks, or bruits. RESPIRATORY: Increased respiratory rate, audible wheezes heard without a stethoscope. Diffuse wheezes in all lobes, occasional productive cough during exam. After administration of nebulizer treatment, and coarse sounds heard in all lobes. Trachea midline, airway patent. No stridor, nasal flaring or accessory muscle use. GASTROINTESTINAL: Bowel sounds normoactive. Diffuse tenderness. Presence or absence of organomegaly is difficult to appreciate due to morbid obesity. MUSCULOSKELETAL: Equal tone and mass bilaterally. Able to roll over and sit up, this is patient's norm. No deformity. EXTREMITIES: CMS intact. Moves all 4 extremities. SKIN: Multiple stage I pressure ulcers on posterior thighs bilaterally and posterior scrotum ripping in coloration without discharge. Partial dressing was removed during exam minute amount of clear yellow drainage was seen on dressing. Warm, dry, soft, appropriate color for ethnicity. NEURO: Alert and Oriented.. Good coordination. No ataxia, or sensory deficits, or cognitive issues. PSYCH: Appropriate affect and mood. <Concepcion Damian DO - Last Filed: 02/18/19 17:54> Initial Vital Signs Initial Vital Signs: Vital Signs Temperature 98.1 F 02/17/19 12:22 Pulse Rate 92 H 02/17/19 12:22 Respiratory Rate 26 H 02/17/19 12:22 Blood Pressure 127/59 L 02/17/19 12:22 Pulse Oximetry 88 L 02/17/19 12:22 Course <LIZBETH Jeter - Last Filed: 02/17/19 23:37> Course Narrative: Blood draw was difficult on patient so PICC line order was placed. Orders Ordered: ED Orders 02/18/19 10:09 Consult to Physical Therapy Evaluate & Treat 02/18/19 13:48 Consult to Occupational Therapy Evaluate & Treat 02/19/19 05:00 BMP [Basic Metabolic Panel] Routine CBC [Complete Blood Count AUTO DIFF] Routine Magnesium Routine Acetaminophen (Tylenol) 650 mg PO Q6HR PRN PRN Reason: Pain, Mild Albuterol (Ventolin) 2.5 mg INH [id number] [facility] Last Admin: 02/18/19 17:22 Dose: 2.5 mg Admin: 02/18/19 13:34 Dose: 2.5 mg Admin: 02/18/19 09:55 Dose: 2.5 mg Admin: 02/18/19 06:04 Dose: 2.5 mg Admin: 02/18/19 00:44 Dose: 2.5 mg Admin: 02/17/19 20:59 Dose: Not Given Admin: 02/17/19 20:58 Dose: Not Given Albuterol (Ventolin Hfa) 2 puff INH Q4H PRN PRN Reason: Shortness Of Breath Diphenhydramine HCl (Benadryl) 25 mg PO Q6HR PRN PRN Reason: Itching Enoxaparin Sodium (Lovenox) 40 mg SUBCUT BID [facility] Furosemide (Lasix) 40 mg PO DAILY [facility] Last Admin: 02/18/19 13:41 Dose: 40 mg Admin: 02/18/19 13:38 Dose: Not Given Gabapentin (Neurontin) 300 mg PO TID [facility] Last Admin: 02/18/19 14:53 Dose: 300 mg Admin: 02/18/19 08:34 Dose: 300 mg Admin: 02/17/19 22:03 Dose: 300 mg Heparin Sodium (Porcine) (Heparin (Cl/Picc/Mid-Line)) 50 unit IV PRN PRN PRN Reason: Flush Loratadine (Claritin) 10 mg PO DAILY [facility] Methadone HCl (Methadone) 60 mg PO DAILY [facility] Last Admin: 02/18/19 08:34 Dose: 60 mg Nystatin (Nystop) 1 applic TOP TID PRN PRN Reason: abd folds/excoriation Olanzapine (Zyprexa Zydis) 10 mg PO DAILY [facility] Last Admin: 02/18/19 08:34 Dose: 10 mg Admin: 02/17/19 22:56 Dose: 10 mg Ondansetron HCl (Zofran) 4 mg IV Q6HR PRN PRN Reason: Nausea And Vomiting Prednisone (Deltasone) 40 mg PO DAILY [facility] Last Admin: 02/18/19 08:34 Dose: 40 mg Sodium Chloride (Normal Saline 0.9% Flush) 10 ml IV BID [facility] Last Admin: 02/18/19 08:34 Dose: 10 ml Sodium Chloride (Normal Saline 0.9% Flush) 10 ml IV PRN PRN PRN Reason: Flush Last Admin: 02/18/19 05:50 Dose: 10 ml Admin: 02/18/19 00:30 Dose: 10 ml Discontinued Medications Albuterol (Ventolin) 2.5 mg INH NOW ONE Stop: 02/17/19 13:55 Last Admin: 02/17/19 14:27 Dose: 2.5 mg Albuterol/Ipratropium (Duoneb) 3 ml INH NOW ONE Stop: 02/17/19 12:31 Last Admin: 02/17/19 12:32 Dose: 3 ml Enoxaparin Sodium (Lovenox) 40 mg SUBCUT DAILY [facility] Last Admin: 02/18/19 08:33 Dose: 40 mg Sodium Chloride (Normal Saline 0.9%) 1,000 mls @ 1,000 mls/hr IV BOLUS ONE Stop: 02/17/19 13:28 Last Infusion: 02/17/19 14:57 Dose: 0 mls/hr Admin: 02/17/19 13:58 Dose: 1,000 mls/hr Methylprednisolone (Solu-Medrol 125 Mg Vial) 125 mg IV NOW ONE Stop: 02/17/19 15:49 Last Admin: 02/17/19 16:03 Dose: 125 mg Methylprednisolone (Solu-Medrol 125 Mg Vial) 60 mg IV Q8H [facility] Last Admin: 02/18/19 00:29 Dose: 60 mg Montelukast Sodium (Singulair) 10 mg PO DAILY [facility] Olanzapine (Zyprexa Zydis) 10 mg PO NOW ONE Stop: 02/17/19 14:37 Last Admin: 02/17/19 14:40 Dose: 10 mg Olanzapine (Zyprexa Zydis) 15 mg PO DAILY [facility] Olanzapine (Zyprexa Zydis) 20 mg PO BEDTIME [facility] Last Admin: 02/17/19 22:40 Dose: Not Given Olanzapine (Zyprexa Zydis) 10 mg PO BEDTIME [facility] Ondansetron HCl (Zofran) 4 mg IV NOW ONE Stop: 02/17/19 12:30 Last Admin: 02/17/19 13:58 Dose: 4 mg Reevaluation(s) Reevaluation #1: Diffuse wheezes resolved and coarse breath sounds heard in all lobes high for heard after 1st administration of albuterol. Re-evaluated 20 minutes after 1st treatment in wheezes returned, another albuterol treatment was ordered. Time: 14:00 Reevaluation #2: Patient trialed on room air for few minutes, oxygen saturation dropped to 84%, placed on oxygen again. Solu-Medrol ordered. Time: 15:50 Consultations Consultation #1: Patient staffed with Dr. Damian who agreed to plan of care. Time: 13:00 Consultation #2: Consulted with Dr. johnston call for admission. Time: 17:00 Vital Signs - 8 hr 02/18/19 09:57 02/18/19 10:42 02/18/19 11:54 Temperature 97.3 F L Pulse Rate 99 H 90 Respiratory Rate 22 20 Blood Pressure 102/52 L Pulse Oximetry 93 93 91 02/18/19 13:36 02/18/19 15:00 02/18/19 15:33 Temperature 98.3 F Pulse Rate 72 91 H Respiratory Rate 18 17 Blood Pressure 115/67 Pulse Oximetry 96 93 96 02/18/19 17:22 Temperature Pulse Rate Respiratory Rate 18 Blood Pressure Pulse Oximetry 95 <Concepcion Damian, DO - Last Filed: 02/18/19 17:54> Orders Ordered: ED Orders 02/18/19 10:09 Consult to Physical Therapy Evaluate & Treat 02/18/19 13:48 Consult to Occupational Therapy Evaluate & Treat 02/19/19 05:00 BMP [Basic Metabolic Panel] Routine CBC [Complete Blood Count AUTO DIFF] Routine Magnesium Routine Acetaminophen (Tylenol) 650 mg PO Q6HR PRN PRN Reason: Pain, Mild Albuterol (Ventolin) 2.5 mg INH [id number] [facility] Last Admin: 02/18/19 17:22 Dose: 2.5 mg Admin: 02/18/19 13:34 Dose: 2.5 mg Admin: 02/18/19 09:55 Dose: 2.5 mg Admin: 02/18/19 06:04 Dose: 2.5 mg Admin: 02/18/19 00:44 Dose: 2.5 mg Admin: 02/17/19 20:59 Dose: Not Given Admin: 02/17/19 20:58 Dose: Not Given Albuterol (Ventolin Hfa) 2 puff INH Q4H PRN PRN Reason: Shortness Of Breath Diphenhydramine HCl (Benadryl) 25 mg PO Q6HR PRN PRN Reason: Itching Enoxaparin Sodium (Lovenox) 40 mg SUBCUT BID [facility] Furosemide (Lasix) 40 mg PO DAILY [facility] Last Admin: 02/18/19 13:41 Dose: 40 mg Admin: 02/18/19 13:38 Dose: Not Given Gabapentin (Neurontin) 300 mg PO TID [facility] Last Admin: 02/18/19 14:53 Dose: 300 mg Admin: 02/18/19 08:34 Dose: 300 mg Admin: 02/17/19 22:03 Dose: 300 mg Heparin Sodium (Porcine) (Heparin (Cl/Picc/Mid-Line)) 50 unit IV PRN PRN PRN Reason: Flush Loratadine (Claritin) 10 mg PO DAILY [facility] Methadone HCl (Methadone) 60 mg PO DAILY [facility] Last Admin: 02/18/19 08:34 Dose: 60 mg Nystatin (Nystop) 1 applic TOP TID PRN PRN Reason: abd folds/excoriation Olanzapine (Zyprexa Zydis) 10 mg PO DAILY [facility] Last Admin: 02/18/19 08:34 Dose: 10 mg Admin: 02/17/19 22:56 Dose: 10 mg Ondansetron HCl (Zofran) 4 mg IV Q6HR PRN PRN Reason: Nausea And Vomiting Prednisone (Deltasone) 40 mg PO DAILY [facility] Last Admin: 02/18/19 08:34 Dose: 40 mg Sodium Chloride (Normal Saline 0.9% Flush) 10 ml IV BID [facility] Last Admin: 02/18/19 08:34 Dose: 10 ml Sodium Chloride (Normal Saline 0.9% Flush) 10 ml IV PRN PRN PRN Reason: Flush Last Admin: 02/18/19 05:50 Dose: 10 ml Admin: 02/18/19 00:30 Dose: 10 ml Discontinued Medications Albuterol (Ventolin) 2.5 mg INH NOW ONE Stop: 02/17/19 13:55 Last Admin: 02/17/19 14:27 Dose: 2.5 mg Albuterol/Ipratropium (Duoneb) 3 ml INH NOW ONE Stop: 02/17/19 12:31 Last Admin: 02/17/19 12:32 Dose: 3 ml Enoxaparin Sodium (Lovenox) 40 mg SUBCUT DAILY [facility] Last Admin: 02/18/19 08:33 Dose: 40 mg Sodium Chloride (Normal Saline 0.9%) 1,000 mls @ 1,000 mls/hr IV BOLUS ONE Stop: 02/17/19 13:28 Last Infusion: 02/17/19 14:57 Dose: 0 mls/hr Admin: 02/17/19 13:58 Dose: 1,000 mls/hr Methylprednisolone (Solu-Medrol 125 Mg Vial) 125 mg IV NOW ONE Stop: 02/17/19 15:49 Last Admin: 02/17/19 16:03 Dose: 125 mg Methylprednisolone (Solu-Medrol 125 Mg Vial) 60 mg IV Q8H [facility] Last Admin: 02/18/19 00:29 Dose: 60 mg Montelukast Sodium (Singulair) 10 mg PO DAILY [facility] Olanzapine (Zyprexa Zydis) 10 mg PO NOW ONE Stop: 02/17/19 14:37 Last Admin: 02/17/19 14:40 Dose: 10 mg Olanzapine (Zyprexa Zydis) 15 mg PO DAILY [facility] Olanzapine (Zyprexa Zydis) 20 mg PO BEDTIME [facility] Last Admin: 02/17/19 22:40 Dose: Not Given Olanzapine (Zyprexa Zydis) 10 mg PO BEDTIME [facility] Ondansetron HCl (Zofran) 4 mg IV NOW ONE Stop: 02/17/19 12:30 Last Admin: 02/17/19 13:58 Dose: 4 mg Vital Signs - 8 hr 02/18/19 09:57 02/18/19 10:42 02/18/19 11:54 Temperature 97.3 F L Pulse Rate 99 H 90 Respiratory Rate 22 20 Blood Pressure 102/52 L Pulse Oximetry 93 93 91 02/18/19 13:36 02/18/19 15:00 02/18/19 15:33 Temperature 98.3 F Pulse Rate 72 91 H Respiratory Rate 18 17 Blood Pressure 115/67 Pulse Oximetry 96 93 96 02/18/19 17:22 Temperature Pulse Rate Respiratory Rate 18 Blood Pressure Pulse Oximetry 95 MDM - Fever <LIZBETH Jeter - Last Filed: 02/17/19 23:37> Medical Records Attestation: I reviewed the patient's medical records. Lab Data Attestation: I reviewed the patient's lab results. Result diagrams: 02/18/19 05:45 02/17/19 13:45 Lab Results 02/17/19 02/17/19 02/17/19 Range/Units 13:25 13:45 13:45 WBC 7.0 (4.5-11.0) X10^3/uL RBC 4.00 L (4.5-5.9) X10^6/uL Hgb 9.7 L (13.5-17.5) g/dL Hct 30.4 L (41-53) % MCV 76.0 L (80-100) fL MCH 24.3 L (26-34) PG MCHC 32.0 (30-36) % RDW 15.3 H (11.6-14.8) % Plt Count 98 L (150-400) X10^3/uL Neut % (Auto) 83.6 H (50-75) % Lymph % (Auto) 9.0 L (25-40) % Greer % (Auto) 6.3 (3-14) % Eos % (Auto) 0.4 L (2-4) % Baso % (Auto) 0.7 (0-2) % Neut # (Auto) 5900 (3530-1953) /uL Lymph # (Auto) 600 L (5457-7135) /uL Greer # (Auto) 400 (0-900) /uL Eos # (Auto) 0 (0-450) /uL Baso # (Auto) 0 (0-100) /uL PT 14.3 H (10.1-12.7) SECONDS INR 1.2 (0.9-1.3) APTT 37 H (26.4-36.2) SECONDS Sodium (137-145) mmol/L Potassium (3.4-5.1) mmol/L Chloride (98-107) mmol/L Carbon Dioxide (22-32) mmol/L BUN (9-20) mg/dL Creatinine (0.66-1.25) mg/dL Estimated GFR (>60) mL/min BUN/Creatinine Ratio (6-22) Glucose (70-100) mg/dL Lactate (0.7-2.1) mmol/L Calcium (8.4-10.2) mg/dL Total Bilirubin (0.2-1.3) mg/dL AST (17-59) IU/L ALT (21-72) IU/L Alkaline Phosphatase (38-126) U/L Total Creatine Kinase (55-170) U/L CK-MB (CK-2) CK-MB (CK-2) Rel Index Troponin I (0.01-0.034) ng/mL Total Protein (6.3-8.2) g/dL Albumin (3.5-5.0) g/dL Globulin (1.7-4.1) g/dL Albumin/Globulin Ratio (1.0-2.8) Lipase (23-300) U/L Procalcitonin (<0.5) ng/mL Chlamy pneumoniae PCR (Not Detect) Adenovirus (PCR) (Not Detect) B.parapertussis DNA PCR (Not Detect) Coronavirus OC43 (PCR) (Not Detect) Coronavirus HKU1 (PCR) (Not Detect) Coronavirus 229E (PCR) (Not Detect) Coronavirus NL63 (PCR) (Not Detect) Human Metapneumovir PCR (Not Detect) Influenza Type A (PCR) (Not Detect) Influenza Type B (PCR) (Not Detect) Influenza A & B (PCR) Negative (Negative) M. pneumoniae (PCR) (Not Detect) Parainfluenza 1 (PCR) (Not Detect) Parainfluenza 2 (PCR) (Not Detect) Parainfluenza 3 (PCR) (Not Detect) Parainfluenza 4 (PCR) (Not Detect) RSV (PCR) (Not Detect) Entero/Rhino (PCR) (Not Detect) 02/17/19 02/17/19 02/17/19 Range/Units 13:45 13:45 13:45 WBC (4.5-11.0) X10^3/uL RBC (4.5-5.9) X10^6/uL Hgb (13.5-17.5) g/dL Hct (41-53) % MCV (80-100) fL MCH (26-34) PG MCHC (30-36) % RDW (11.6-14.8) % Plt Count (150-400) X10^3/uL Neut % (Auto) (50-75) % Lymph % (Auto) (25-40) % Greer % (Auto) (3-14) % Eos % (Auto) (2-4) % Baso % (Auto) (0-2) % Neut # (Auto) (5450-5711) /uL Lymph # (Auto) (5118-2869) /uL Greer # (Auto) (0-900) /uL Eos # (Auto) (0-450) /uL Baso # (Auto) (0-100) /uL PT (10.1-12.7) SECONDS INR (0.9-1.3) APTT (26.4-36.2) SECONDS Sodium 138 (137-145) mmol/L Potassium 3.7 (3.4-5.1) mmol/L Chloride 101 (98-107) mmol/L Carbon Dioxide 33 H (22-32) mmol/L BUN 5 L (9-20) mg/dL Creatinine 0.50 L (0.66-1.25) mg/dL Estimated GFR > 60.0 (>60) mL/min BUN/Creatinine Ratio 10.0 (6-22) Glucose 90 (70-100) mg/dL Lactate 0.6 L (0.7-2.1) mmol/L Calcium 8.4 (8.4-10.2) mg/dL Total Bilirubin 0.6 (0.2-1.3) mg/dL AST 11 L (17-59) IU/L ALT 9 L (21-72) IU/L Alkaline Phosphatase 72 (38-126) U/L Total Creatine Kinase (55-170) U/L CK-MB (CK-2) CK-MB (CK-2) Rel Index Troponin I (0.01-0.034) ng/mL Total Protein 6.5 (6.3-8.2) g/dL Albumin 3.4 L (3.5-5.0) g/dL Globulin 3.1 (1.7-4.1) g/dL Albumin/Globulin Ratio 1.1 (1.0-2.8) Lipase < 10 L (23-300) U/L Procalcitonin < 0.05 (<0.5) ng/mL Chlamy pneumoniae PCR (Not Detect) Adenovirus (PCR) (Not Detect) B.parapertussis DNA PCR (Not Detect) Coronavirus OC43 (PCR) (Not Detect) Coronavirus HKU1 (PCR) (Not Detect) Coronavirus 229E (PCR) (Not Detect) Coronavirus NL63 (PCR) (Not Detect) Human Metapneumovir PCR (Not Detect) Influenza Type A (PCR) (Not Detect) Influenza Type B (PCR) (Not Detect) Influenza A & B (PCR) (Negative) M. pneumoniae (PCR) (Not Detect) Parainfluenza 1 (PCR) (Not Detect) Parainfluenza 2 (PCR) (Not Detect) Parainfluenza 3 (PCR) (Not Detect) Parainfluenza 4 (PCR) (Not Detect) RSV (PCR) (Not Detect) Entero/Rhino (PCR) (Not Detect) 02/17/19 02/17/19 02/18/19 Range/Units 15:55 19:17 05:45 WBC 2.8 L D (4.5-11.0) X10^3/uL RBC 4.26 L (4.5-5.9) X10^6/uL Hgb 10.3 L (13.5-17.5) g/dL Hct 32.4 L (41-53) % MCV 76.1 L (80-100) fL MCH 24.3 L (26-34) PG MCHC 31.9 (30-36) % RDW 15.2 H (11.6-14.8) % Plt Count 104 L (150-400) X10^3/uL Neut % (Auto) 77.6 H (50-75) % Lymph % (Auto) 20.6 L (25-40) % Greer % (Auto) 1.6 L (3-14) % Eos % (Auto) 0.0 L (2-4) % Baso % (Auto) 0.2 (0-2) % Neut # (Auto) 2200 (1429-4887) /uL Lymph # (Auto) 600 L (2858-9477) /uL Greer # (Auto) 0 (0-900) /uL Eos # (Auto) 0 (0-450) /uL Baso # (Auto) 0 (0-100) /uL PT (10.1-12.7) SECONDS INR (0.9-1.3) APTT (26.4-36.2) SECONDS Sodium (137-145) mmol/L Potassium (3.4-5.1) mmol/L Chloride (98-107) mmol/L Carbon Dioxide (22-32) mmol/L BUN (9-20) mg/dL Creatinine (0.66-1.25) mg/dL Estimated GFR (>60) mL/min BUN/Creatinine Ratio (6-22) Glucose (70-100) mg/dL Lactate (0.7-2.1) mmol/L Calcium (8.4-10.2) mg/dL Total Bilirubin (0.2-1.3) mg/dL AST (17-59) IU/L ALT (21-72) IU/L Alkaline Phosphatase (38-126) U/L Total Creatine Kinase 25 L (55-170) U/L CK-MB (CK-2) TNP CK-MB (CK-2) Rel Index TNP Troponin I < 0.012 (0.01-0.034) ng/mL Total Protein (6.3-8.2) g/dL Albumin (3.5-5.0) g/dL Globulin (1.7-4.1) g/dL Albumin/Globulin Ratio (1.0-2.8) Lipase (23-300) U/L Procalcitonin (<0.5) ng/mL Chlamy pneumoniae PCR Not detected (Not Detect) Adenovirus (PCR) Not detected (Not Detect) B.parapertussis DNA PCR Not detected (Not Detect) Coronavirus OC43 (PCR) Not detected (Not Detect) Coronavirus HKU1 (PCR) Not detected (Not Detect) Coronavirus 229E (PCR) Not detected (Not Detect) Coronavirus NL63 (PCR) Not detected (Not Detect) Human Metapneumovir PCR Not detected (Not Detect) Influenza Type A (PCR) Not detected (Not Detect) Influenza Type B (PCR) Not detected (Not Detect) Influenza A & B (PCR) (Negative) M. pneumoniae (PCR) Not detected (Not Detect) Parainfluenza 1 (PCR) Not detected (Not Detect) Parainfluenza 2 (PCR) Not detected (Not Detect) Parainfluenza 3 (PCR) Not detected (Not Detect) Parainfluenza 4 (PCR) Not detected (Not Detect) RSV (PCR) Not detected (Not Detect) Entero/Rhino (PCR) Not detected (Not Detect) Point of Care Testing Glucose POC 124 Urine Dip Bedside Urine Glucose Negative Bedside Urine Bilirubin - Negative Bedside Urine Ketone - Negative Urine Specific Ramona 1.020 Bedside Urine Occult Blood - Negative Bedside Urine pH 6.5 Bedside Urine Protein +/- 15 Bedside Urine Urobilinogen +/- 1mg Bedside Urine Nitrite - Negative Bedside Urine Leukocytes - Negative Esterase Imaging Data Chest x-ray: Radiologist's impression: [address] [place] [id number] XRay Report Signed Patient: Babatunde Fitzgerald KMR#: [id number] : 1980Acct:[id number] Age/Sex: 38 / MDate of Service: 02/17/19 Loc: ED Accession Number: [id number] Procedure: XR chest 1V Ordering Provider: Concepcion Damian D.O. PROCEDURE: XR CHEST 1V INDICATIONS: suspected sepsis TECHNIQUE: One view of the chest was acquired. COMPARISON: [facility] , XR CHEST 1V, 02/14/2019, 13:42. FINDINGS: Surgical changes and devices: None. Lungs and pleura: There is improved aeration of the bilateral hilar opacities as well as retrocardiac consolidative opacity since 02/14/19. Low lung volumes with scattered subsegmental atelectasis/scarring. Persistent retrocardiac streaky opacities persist.. No pleural effusions or pneumothorax. Mediastinum: Mediastinal contours appear normal. Heart size is stable. Bones and chest wall: No suspicious bony lesions. Overlying soft tissues appear unremarkable. IMPRESSION: Improved aeration of both lungs since the prior study dated 02/14/19 although residual patchy and streaky retrocardiac left lower lobe opacities persist. No new consolidation. Dictated by: Guillaume Greco M.D. on 02/17/2019 at 12:36 Approved by: Guillaume Greco M.D. on 02/17/2019 at 12:38 Post PICC insertion: Radiologist's impression: [address] [address] XRay Report Signed Patient: Babatunde Fitzgerald KMR#: [id number] : 1980Acct:[id number] Age/Sex: 38 / MDate of Service: 02/17/19 Loc: ED Accession Number: [id number] Procedure: XR chest for PICC 1V Ordering Provider: Concepcion Damian D.O. PROCEDURE: XR CHEST FOR PICC 1V INDICATIONS: line placement COMPARISON: [facility], CR, XR CHEST 1V, 02/17/2019, 12:55. [facility], CR, XR CHEST 1V, 02/14/2019, 13:42. FINDINGS: PICC was placed by the intravenous therapy team from the right side. Fluoroscopic spot film demonstrates tip of PICC in the junction of the [id number] thirds of the superior vena cava. IMPRESSION: Tip of PICC lies within the superior vena cava just below the level of the azygos arch. Dictated by: Jesus Bueno M.D. on 02/17/2019 at 13:41 Approved by: Jesus Bueno M.D. on 02/17/2019 at 13:42 ECG Data Attestation: I personally reviewed and interpreted this ECG as follows: Interpretation: Normal sinus rhythm. No ST elevation or ST depression or T-wave inversion. EKG also reviewed by Dr. Damian. [facility] Narrative Medical decision making narrative: Most likely asthma exacerbation due to diffuse wheezes, low oxygen saturation, negative chest x-ray, history of asthma exacerbations. Patient is not able to go home as he does have oxygen at home. Less likely pneumonia due to negative chest x-ray, normal white blood cell, and lack of toxic appearing symptoms such as fever. Was concerned for cellulitis to pressure ulcers due to exam and positive appearance of wounds. <Concepcion Damian, - Last Filed: 02/18/19 17:54> Lab Data Lab Results 02/17/19 02/17/19 02/17/19 Range/Units 13:25 13:45 13:45 WBC 7.0 (4.5-11.0) X10^3/uL RBC 4.00 L (4.5-5.9) X10^6/uL Hgb 9.7 L (13.5-17.5) g/dL Hct 30.4 L (41-53) % MCV 76.0 L (80-100) fL MCH 24.3 L (26-34) PG MCHC 32.0 (30-36) % RDW 15.3 H (11.6-14.8) % Plt Count 98 L (150-400) X10^3/uL Neut % (Auto) 83.6 H (50-75) % Lymph % (Auto) 9.0 L (25-40) % Greer % (Auto) 6.3 (3-14) % Eos % (Auto) 0.4 L (2-4) % Baso % (Auto) 0.7 (0-2) % Neut # (Auto) 5900 (5268-3702) /uL Lymph # (Auto) 600 L (1253-5582) /uL Greer # (Auto) 400 (0-900) /uL Eos # (Auto) 0 (0-450) /uL Baso # (Auto) 0 (0-100) /uL PT 14.3 H (10.1-12.7) SECONDS INR 1.2 (0.9-1.3) APTT 37 H (26.4-36.2) SECONDS Sodium (137-145) mmol/L Potassium (3.4-5.1) mmol/L Chloride (98-107) mmol/L Carbon Dioxide (22-32) mmol/L BUN (9-20) mg/dL Creatinine (0.66-1.25) mg/dL Estimated GFR (>60) mL/min BUN/Creatinine Ratio (6-22) Glucose (70-100) mg/dL Lactate (0.7-2.1) mmol/L Calcium (8.4-10.2) mg/dL Total Bilirubin (0.2-1.3) mg/dL AST (17-59) IU/L ALT (21-72) IU/L Alkaline Phosphatase (38-126) U/L Total Creatine Kinase (55-170) U/L CK-MB (CK-2) CK-MB (CK-2) Rel Index Troponin I (0.01-0.034) ng/mL Total Protein (6.3-8.2) g/dL Albumin (3.5-5.0) g/dL Globulin (1.7-4.1) g/dL Albumin/Globulin Ratio (1.0-2.8) Lipase (23-300) U/L Procalcitonin (<0.5) ng/mL Chlamy pneumoniae PCR (Not Detect) Adenovirus (PCR) (Not Detect) B.parapertussis DNA PCR (Not Detect) Coronavirus OC43 (PCR) (Not Detect) Coronavirus HKU1 (PCR) (Not Detect) Coronavirus 229E (PCR) (Not Detect) Coronavirus NL63 (PCR) (Not Detect) Human Metapneumovir PCR (Not Detect) Influenza Type A (PCR) (Not Detect) Influenza Type B (PCR) (Not Detect) Influenza A & B (PCR) Negative (Negative) M. pneumoniae (PCR) (Not Detect) Parainfluenza 1 (PCR) (Not Detect) Parainfluenza 2 (PCR) (Not Detect) Parainfluenza 3 (PCR) (Not Detect) Parainfluenza 4 (PCR) (Not Detect) RSV (PCR) (Not Detect) Entero/Rhino (PCR) (Not Detect) 02/17/19 02/17/19 02/17/19 Range/Units 13:45 13:45 13:45 WBC (4.5-11.0) X10^3/uL RBC (4.5-5.9) X10^6/uL Hgb (13.5-17.5) g/dL Hct (41-53) % MCV (80-100) fL MCH (26-34) PG MCHC (30-36) % RDW (11.6-14.8) % Plt Count (150-400) X10^3/uL Neut % (Auto) (50-75) % Lymph % (Auto) (25-40) % Greer % (Auto) (3-14) % Eos % (Auto) (2-4) % Baso % (Auto) (0-2) % Neut # (Auto) (6989-6222) /uL Lymph # (Auto) (4940-1701) /uL Greer # (Auto) (0-900) /uL Eos # (Auto) (0-450) /uL Baso # (Auto) (0-100) /uL PT (10.1-12.7) SECONDS INR (0.9-1.3) APTT (26.4-36.2) SECONDS Sodium 138 (137-145) mmol/L Potassium 3.7 (3.4-5.1) mmol/L Chloride 101 (98-107) mmol/L Carbon Dioxide 33 H (22-32) mmol/L BUN 5 L (9-20) mg/dL Creatinine 0.50 L (0.66-1.25) mg/dL Estimated GFR > 60.0 (>60) mL/min BUN/Creatinine Ratio 10.0 (6-22) Glucose 90 (70-100) mg/dL Lactate 0.6 L (0.7-2.1) mmol/L Calcium 8.4 (8.4-10.2) mg/dL Total Bilirubin 0.6 (0.2-1.3) mg/dL AST 11 L (17-59) IU/L ALT 9 L (21-72) IU/L Alkaline Phosphatase 72 (38-126) U/L Total Creatine Kinase (55-170) U/L CK-MB (CK-2) CK-MB (CK-2) Rel Index Troponin I (0.01-0.034) ng/mL Total Protein 6.5 (6.3-8.2) g/dL Albumin 3.4 L (3.5-5.0) g/dL Globulin 3.1 (1.7-4.1) g/dL Albumin/Globulin Ratio 1.1 (1.0-2.8) Lipase < 10 L (23-300) U/L Procalcitonin < 0.05 (<0.5) ng/mL Chlamy pneumoniae PCR (Not Detect) Adenovirus (PCR) (Not Detect) B.parapertussis DNA PCR (Not Detect) Coronavirus OC43 (PCR) (Not Detect) Coronavirus HKU1 (PCR) (Not Detect) Coronavirus 229E (PCR) (Not Detect) Coronavirus NL63 (PCR) (Not Detect) Human Metapneumovir PCR (Not Detect) Influenza Type A (PCR) (Not Detect) Influenza Type B (PCR) (Not Detect) Influenza A & B (PCR) (Negative) M. pneumoniae (PCR) (Not Detect) Parainfluenza 1 (PCR) (Not Detect) Parainfluenza 2 (PCR) (Not Detect) Parainfluenza 3 (PCR) (Not Detect) Parainfluenza 4 (PCR) (Not Detect) RSV (PCR) (Not Detect) Entero/Rhino (PCR) (Not Detect) 02/17/19 02/17/19 02/18/19 Range/Units 15:55 19:17 05:45 WBC 2.8 L D (4.5-11.0) X10^3/uL RBC 4.26 L (4.5-5.9) X10^6/uL Hgb 10.3 L (13.5-17.5) g/dL Hct 32.4 L (41-53) % MCV 76.1 L (80-100) fL MCH 24.3 L (26-34) PG MCHC 31.9 (30-36) % RDW 15.2 H (11.6-14.8) % Plt Count 104 L (150-400) X10^3/uL Neut % (Auto) 77.6 H (50-75) % Lymph % (Auto) 20.6 L (25-40) % Greer % (Auto) 1.6 L (3-14) % Eos % (Auto) 0.0 L (2-4) % Baso % (Auto) 0.2 (0-2) % Neut # (Auto) 2200 (3974-0825) /uL Lymph # (Auto) 600 L (4731-9325) /uL Greer # (Auto) 0 (0-900) /uL Eos # (Auto) 0 (0-450) /uL Baso # (Auto) 0 (0-100) /uL PT (10.1-12.7) SECONDS INR (0.9-1.3) APTT (26.4-36.2) SECONDS Sodium (137-145) mmol/L Potassium (3.4-5.1) mmol/L Chloride (98-107) mmol/L Carbon Dioxide (22-32) mmol/L BUN (9-20) mg/dL Creatinine (0.66-1.25) mg/dL Estimated GFR (>60) mL/min BUN/Creatinine Ratio (6-22) Glucose (70-100) mg/dL Lactate (0.7-2.1) mmol/L Calcium (8.4-10.2) mg/dL Total Bilirubin (0.2-1.3) mg/dL AST (17-59) IU/L ALT (21-72) IU/L Alkaline Phosphatase (38-126) U/L Total Creatine Kinase 25 L (55-170) U/L CK-MB (CK-2) TNP CK-MB (CK-2) Rel Index TNP Troponin I < 0.012 (0.01-0.034) ng/mL Total Protein (6.3-8.2) g/dL Albumin (3.5-5.0) g/dL Globulin (1.7-4.1) g/dL Albumin/Globulin Ratio (1.0-2.8) Lipase (23-300) U/L Procalcitonin (<0.5) ng/mL Chlamy pneumoniae PCR Not detected (Not Detect) Adenovirus (PCR) Not detected (Not Detect) B.parapertussis DNA PCR Not detected (Not Detect) Coronavirus OC43 (PCR) Not detected (Not Detect) Coronavirus HKU1 (PCR) Not detected (Not Detect) Coronavirus 229E (PCR) Not detected (Not Detect) Coronavirus NL63 (PCR) Not detected (Not Detect) Human Metapneumovir PCR Not detected (Not Detect) Influenza Type A (PCR) Not detected (Not Detect) Influenza Type B (PCR) Not detected (Not Detect) Influenza A & B (PCR) (Negative) M. pneumoniae (PCR) Not detected (Not Detect) Parainfluenza 1 (PCR) Not detected (Not Detect) Parainfluenza 2 (PCR) Not detected (Not Detect) Parainfluenza 3 (PCR) Not detected (Not Detect) Parainfluenza 4 (PCR) Not detected (Not Detect) RSV (PCR) Not detected (Not Detect) Entero/Rhino (PCR) Not detected (Not Detect) Point of Care Testing Glucose POC 124 Urine Dip Bedside Urine Glucose Negative Bedside Urine Bilirubin - Negative Bedside Urine Ketone - Negative Urine Specific Ramona 1.020 Bedside Urine Occult Blood - Negative Bedside Urine pH 6.5 Bedside Urine Protein +/- 15 Bedside Urine Urobilinogen +/- 1mg Bedside Urine Nitrite - Negative Bedside Urine Leukocytes - Negative Esterase ECG Data Attestation: I personally reviewed and interpreted this ECG as follows: Prior ECG tracings: available for review Interpretation: Sinus rhythm rate 88 P are 154 QRS of 121 QTC of 432. No ST elevation or depression. Q-wave in 2 3 AVF. Discharge Plan Departure Patient Disposition: Admitted as Observation Clinical Impression: Asthma exacerbation Qualifiers: Asthma severity: severe Asthma persistence: unspecified Qualified Code(s): J45.901 - Unspecified asthma with (acute) exacerbation Discharge Date/Time: 02/17/19 18:24 Interventions: ED Discharge Assessment Last Done: 02/17/19 18:24 Admit Date/Time: 02/17/19 17:10 Admit Provider: Alyssa Muhammad <Concepcion Damian DO - Last Filed: 02/18/19 17:54> Cosign ED Attending Cosignature Attestation: I was immediately available in the department for consultation, case was discussed, patient is not able to maintain oxygen. Plan for admission. EKG reviewed along with labs, imaging and plan of care. This documentation has been reviewed and I agree with assessment and plan. Supervised by Concepcion Damian DO
[2019-02-17] MEDS: ALBUTEROL/IPRATROPIUM 3 ML AMPUL INH (12:32)
--- NOTE | 2019-02-17 12:52 | ED_ITS ---
HPI - Fever <LIZBETH Jeter - Last Filed: 02/17/19 23:37> General Chief Complaint: Fever Stated Complaint: Fever/generalized weakness Time Seen by Provider: 02/17/19 12:28 Source: patient Mode of arrival: EMS Limitations: physical limitation History of Present Illness HPI Narrative: A 38-year-old with history of asthma, morbid obesity, and multiple pressure ulcers, presents emergency department today complaining of shortness of breath with fever and chills starting this morning. Associated cough for the past few days as productive with clear mucus. Associated diffuse chest pain that is worse with coughing. Denies sick contacts, denies nausea, vomiting, diarrhea, headaches, dizziness, loss of vision. States that he has pressure ulcers on his legs that were dressed yesterday. Related Data Home Medications Medication Instructions Recorded Confirmed albuterol sulfate 2 - 4 puff INHALATION Q4-6H PRN 01/12/19 02/17/19 albuterol sulfate 3 ml INHALATION QID PRN 01/12/19 02/17/19 olanzapine 10 mg PO DAILY 02/17/19 02/17/19 Previous Rx's Medication Instructions Recorded acetaminophen 650 mg PO Q6HR PRN #30 tab 11/26/18 diphenhydramine HCl [Allergy 25 mg PO Q6HR PRN #30 tab 11/26/18 (diphenhydramine)] nystatin [Nystop] 1 applic TOPICAL TID PRN #1 pkg 11/26/18 gabapentin [Neurontin] 300 mg PO TID #180 cap 01/15/19 methadone 60 mg PO DAILY #1 tab 01/15/19 Allergies Allergy/AdvReac Type Severity Reaction Status Date / Time NSAIDS (Non-Steroidal Allergy Unknown ASTHMA Verified 02/14/19 12:46 Anti-Inflamma FLARE UPS [NSAIDS (NON-STEROIDAL ANTI-INFLAMMA] ibuprofen AdvReac Mild nausea, GI Verified 02/14/19 12:46 upset Review of Systems <LIZBETH Jeter - Last Filed: 02/17/19 23:37> Review of Systems REVIEW OF SYSTEMS: GENERAL: Complaints of fever, see HPI. HENT: No head trauma, hearing loss, rhinorrhea, epistaxis, sinus pressure, sore throat, or dysphagia. EYES: No loss of vision, double vision, eye pain, or irritation. CARDIOVASCULAR: Complains of chest congestion, see HPI. RESPIRATORY: Complains of cough and shortness of breath, see HPI. GASTROINTESTINAL: No change in appetite, nausea, vomiting, stool changes, or melena. GENITOURINARY: No flank pain, urinary incontinence, hesitancy, frequency, or dysuria. No vaginal discharge or dyspareunia. MUSCULOSKELETAL: No pain, weakness, or deformities. INTEGUMENTARY: Reports chronic pressure ulcers to bilateral posterior thighs and posterior part of the scrotum. States his dressings were changed yesterday. NEURO: No numbness, tingling, memory loss, confusion, or headaches. PSYCH: Reports history of anxiety, states that he is anxious at this time. ENDOCRINOLOGY: No hair loss of temperature intolerance. HEMATOLOGY: No easy bruising. LYMPHATIC: No lymphadenopathy. PFSH <LIZBETH Jeter - Last Filed: 02/17/19 23:37> Medical History Anxiety (Chronic) Asthma (Chronic) Chronic skin ulcer (Chronic) Methadone use disorder, mild, in controlled environment (Chronic) Morbid obesity (Chronic) Pulmonary hypertension (Chronic) Surgical History H/O vertebral fracture repair (Chronic) History of hip surgery (Chronic) Family History Mother Diabetes mellitus Father No problems noted. Social History household members: significant other Smoking Status: Never smoker Family History Mother Diabetes mellitus Father No problems noted. Social History household members: significant other Smoking Status: Never smoker Exam <LIZBETH Jeter - Last Filed: 02/17/19 23:37> Initial Vital Signs Initial Vital Signs: Vital Signs Temperature 98.1 F 02/17/19 12:22 Pulse Rate 92 H 02/17/19 12:22 Respiratory Rate 26 H 02/17/19 12:22 Blood Pressure 127/59 L 02/17/19 12:22 Pulse Oximetry 88 L 02/17/19 12:22 PHYSICAL EXAMINATION: GENERAL: Morbidly obese poor hygiene. Alert and awake upon initial exam. Answers questions promptly and appropriately. Vital signs noted, oxygen saturation improved after nebulizer and supplemental O2. HENT: Normocephalic, atraumatic. . Oral mucosa is dry. Pharynx without erythema. EYES: PERRLA, EOMIs, conjunctiva pink, sclera white, no periorbital swelling. LYMPH: No lymphadenopathy. CHEST: Normal to inspection and without deformities. CARDIOVASCULAR: S1 and S2 sounds normal. Regular rate and rhythm, no murmurs, clicks, or bruits. RESPIRATORY: Increased respiratory rate, audible wheezes heard without a stethoscope. Diffuse wheezes in all lobes, occasional productive cough during exam. After administration of nebulizer treatment, and coarse sounds heard in all lobes. Trachea midline, airway patent. No stridor, nasal flaring or access ory muscle use. GASTROINTESTINAL: Bowel sounds normoactive. Diffuse tenderness. Presence or absence of organomegaly is difficult to appreciate due to morbid obesity. MUSCULOSKELETAL: Equal tone and mass bilaterally. Able to roll over and sit up, this is patient's norm. No deformity. EXTREMITIES: CMS intact. Moves all 4 extremities. SKIN: Multiple stage I pressure ulcers on posterior thighs bilaterally and posterior scrotum ripping in coloration without discharge. Partial dressing was removed during exam minute amount of clear yellow drainage was seen on dressing. Warm, dry, soft, appropriate color for ethnicity. NEURO: Alert and Oriented.. Good coordination. No ataxia, or sensory deficits, or cognitive issues. PSYCH: Appropriate affect and mood. <Concepcion Damian DO - Last Filed: 02/18/19 17:54> Initial Vital Signs Initial Vital Signs: Vital Signs Temperature 98.1 F 02/17/19 12:22 Pulse Rate 92 H 02/17/19 12:22 Respiratory Rate 26 H 02/17/19 12:22 Blood Pressure 127/59 L 02/17/19 12:22 Pulse Oximetry 88 L 02/17/19 12:22 Course <LIZBETH Jeter - Last Filed: 02/17/19 23:37> Course Narrative: Blood draw was difficult on patient so PICC line order was placed. Orders Ordered: ED Orders 02/18/19 10:09 Consult to Physical Therapy Evaluate & Treat 02/18/19 13:48 Consult to Occupational Therapy Evaluate & Treat 02/19/19 05:00 BMP [Basic Metabolic Panel] Routine CBC [Complete Blood Count AUTO DIFF] Routine Magnesium Routine Acetaminophen (Tylenol) 650 mg PO Q6HR PRN PRN Reason: Pain, Mild Albuterol (Ventolin) 2.5 mg INH [id number] [facility] Last Admin: 02/18/19 17:22 Dose: 2.5 mg Admin: 02/18/19 13:34 Dose: 2.5 mg Admin: 02/18/19 09:55 Dose: 2.5 mg Admin: 02/18/19 06:04 Dose: 2.5 mg Admin: 02/18/19 00:44 Dose: 2.5 mg Admin: 02/17/19 20:59 Dose: Not Given Admin: 02/17/19 20:58 Dose: Not Given Albuterol (Ventolin Hfa) 2 puff INH Q4H PRN PRN Reason: Shortness Of Breath Diphenhydramine HCl (Benadryl) 25 mg PO Q6HR PRN PRN Reason: Itching Enoxaparin Sodium (Lovenox) 40 mg SUBCUT BID [facility] Furosemide (Lasix) 40 mg PO DAILY [facility] Last Admin: 02/18/19 13:41 Dose: 40 mg Admin: 02/18/19 13:38 Dose: Not Given Gabapentin (Neurontin) 300 mg PO TID [facility] Last Admin: 02/18/19 14:53 Dose: 300 mg Admin: 02/18/19 08:34 Dose: 300 mg Admin: 02/17/19 22:03 Dose: 300 mg Heparin Sodium (Porcine) (Heparin (Cl/Picc/Mid-Line)) 50 unit IV PRN PRN PRN Reason: Flush Loratadine (Claritin) 10 mg PO DAILY [facility] Methadone HCl (Methadone) 60 mg PO DAILY [facility] Last Admin: 02/18/19 08:34 Dose: 60 mg Nystatin (Nystop) 1 applic TOP TID PRN PRN Reason: abd folds/excoriation Olanzapine (Zyprexa Zydis) 10 mg PO DAILY [facility] Last Admin: 02/18/19 08:34 Dose: 10 mg Admin: 02/17/19 22:56 Dose: 10 mg Ondansetron HCl (Zofran) 4 mg IV Q6HR PRN PRN Reason: Nausea And Vomiting Prednisone (Deltasone) 40 mg PO DAILY [facility] Last Admin: 02/18/19 08:34 Dose: 40 mg Sodium Chloride (Normal Saline 0.9% Flush) 10 ml IV BID [facility] Last Admin: 02/18/19 08:34 Dose: 10 ml Sodium Chloride (Normal Saline 0.9% Flush) 10 ml IV PRN PRN PRN Reason: Flush Last Admin: 02/18/19 05:50 Dose: 10 ml Admin: 02/18/19 00:30 Dose: 10 ml Discontinued Medications Albuterol (Ventolin) 2.5 mg INH NOW ONE Stop: 02/17/19 13:55 Last Admin: 02/17/19 14:27 Dose: 2.5 mg Albuterol/Ipratropium (Duoneb) 3 ml INH NOW ONE Stop: 02/17/19 12:31 Last Admin: 02/17/19 12:32 Dose: 3 ml Enoxaparin Sodium (Lovenox) 40 mg SUBCUT DAILY [facility] Last Admin: 02/18/19 08:33 Dose: 40 mg Sodium Chloride (Normal Saline 0.9%) 1,000 mls @ 1,000 mls/hr IV BOLUS ONE Stop: 02/17/19 13:28 Last Infusion: 02/17/19 14:57 Dose: 0 mls/hr Admin: 02/17/19 13:58 Dose: 1,000 mls/hr Methylprednisolone (Solu-Medrol 125 Mg Vial) 125 mg IV NOW ONE Stop: 02/17/19 15:49 Last Admin: 02/17/19 16:03 Dose: 125 mg Methylprednisolone (Solu-Medrol 125 Mg Vial) 60 mg IV Q8H [facility] Last Admin: 02/18/19 00:29 Dose: 60 mg Montelukast Sodium (Singulair) 10 mg PO DAILY [facility] Olanzapine (Zyprexa Zydis) 10 mg PO NOW ONE Stop: 02/17/19 14:37 Last Admin: 02/17/19 14:40 Dose: 10 mg Olanzapine (Zyprexa Zydis) 15 mg PO DAILY [facility] Olanzapine (Zyprexa Zydis) 20 mg PO BEDTIME [facility] Last Admin: 02/17/19 22:40 Dose: Not Given Olanzapine (Zyprexa Zydis) 10 mg PO BEDTIME [facility] Ondansetron HCl (Zofran) 4 mg IV NOW ONE Stop: 02/17/19 12:30 Last Admin: 02/17/19 13:58 Dose: 4 mg Reevaluation(s) Reevaluation #1: Diffuse wheezes resolved and coarse breath sounds heard in all lobes high for heard after 1st administration of albuterol. Re-evaluated 20 m inutes after 1st treatment in wheezes returned, another albuterol treatment was ordered. Time: 14:00 Reevaluation #2: Patient trialed on room air for few minutes, oxygen saturation dropped to 84%, placed on oxygen again. Solu-Medrol ordered. Time: 15:50 Consultations Consultation #1: Patient staffed with Dr. Damian who agreed to plan of care. Time: 13:00 Consultation #2: Consulted with Dr. johnston call for admission. Time: 17:00 Vital Signs - 8 hr 02/18/19 09:57 02/18/19 10:42 02/18/19 11:54 Temperature 97.3 F L Pulse Rate 99 H 90 Respiratory Rate 22 20 Blood Pressure 102/52 L Pulse Oximetry 93 93 91 02/18/19 13:36 02/18/19 15:00 02/18/19 15:33 Temperature 98.3 F Pulse Rate 72 91 H Respiratory Rate 18 17 Blood Pressure 115/67 Pulse Oximetry 96 93 96 02/18/19 17:22 Temperature Pulse Rate Respiratory Rate 18 Blood Pressure Pulse Oximetry 95 <Concepcion Damian, - Last Filed: 02/18/19 17:54> Orders Ordered: ED Orders 02/18/19 10:09 Consult to Physical Therapy Evaluate & Treat 02/18/19 13:48 Consult to Occupational Therapy Evaluate & Treat 02/19/19 05:00 BMP [Basic Metabolic Panel] Routine CBC [Complete Blood Count AUTO DIFF] Routine Magnesium Routine Acetaminophen (Tylenol) 650 mg PO Q6HR PRN PRN Reason: Pain, Mild Albuterol (Ventolin) 2.5 mg INH [id number] [facility] Last Admin: 02/18/19 17:22 Dose: 2.5 mg Admin: 02/18/19 13:34 Dose: 2.5 mg Admin: 02/18/19 09:55 Dose: 2.5 mg Admin: 02/18/19 06:04 Dose: 2.5 mg Admin: 02/18/19 00:44 Dose: 2.5 mg Admin: 02/17/19 20:59 Dose: Not Given Admin: 02/17/19 20:58 Dose: Not Given Albuterol (Ventolin Hfa) 2 puff INH Q4H PRN PRN Reason: Shortness Of Breath Diphenhydramine HCl (Benadryl) 25 mg PO Q6HR PRN PRN Reason: Itching Enoxaparin Sodium (Lovenox) 40 mg SUBCUT BID [facility] Furosemide (Lasix) 40 mg PO DAILY [facility] Last Admin: 02/18/19 13:41 Dose: 40 mg Admin: 02/18/19 13:38 Dose: Not Given Gabapentin (Neurontin) 300 mg PO TID [facility] Last Admin: 02/18/19 14:53 Dose: 300 mg Admin: 02/18/19 08:34 Dose: 300 mg Admin: 02/17/19 22:03 Dose: 300 mg Heparin Sodium (Porcine) (Heparin (Cl/Picc/Mid-Line)) 50 unit IV PRN PRN PRN Reason: Flush Loratadine (Claritin) 10 mg PO DAILY [facility] Methadone HCl (Methadone) 60 mg PO DAILY [facility] Last Admin: 02/18/19 08:34 Dose: 60 mg Nystatin (Nystop) 1 applic TOP TID PRN PRN Reason: abd folds/excoriation Olanzapine (Zyprexa Zydis) 10 mg PO DAILY [facility] Last Admin: 02/18/19 08:34 Dose: 10 mg Admin: 02/17/19 22:56 Dose: 10 mg Ondansetron HCl (Zofran) 4 mg IV Q6HR PRN PRN Reason: Nausea And Vomiting Prednisone (Deltasone) 40 mg PO DAILY [facility] Last Admin: 02/18/19 08:34 Dose: 40 mg Sodium Chloride (Normal Saline 0.9% Flush) 10 ml IV BID [facility] Last Admin: 02/18/19 08:34 Dose: 10 ml Sodium Chloride (Normal Saline 0.9% Flush) 10 ml IV PRN PRN PRN Reason: Flush Last Admin: 02/18/19 05:50 Dose: 10 ml Admin: 02/18/19 00:30 Dose: 10 ml Discontinued Medications Albuterol (Ventolin) 2.5 mg INH NOW ONE Stop: 02/17/19 13:55 Last Admin: 02/17/19 14:27 Dose: 2.5 mg Albuterol/Ipratropium (Duoneb) 3 ml INH NOW ONE Stop: 02/17/19 12:31 Last Admin: 02/17/19 12:32 Dose: 3 ml Enoxaparin Sodium (Lovenox) 40 mg SUBCUT DAILY [facility] Last Admin: 02/18/19 08:33 Dose: 40 mg Sodium Chloride (Normal Saline 0.9%) 1,000 mls @ 1,000 mls/hr IV BOLUS ONE Stop: 02/17/19 13:28 Last Infusion: 02/17/19 14:57 Dose: 0 mls/hr Admin: 02/17/19 13:58 Dose: 1,000 mls/hr Methylprednisolone (Solu-Medrol 125 Mg Vial) 125 mg IV NOW ONE Stop: 02/17/19 15:49 Last Admin: 02/17/19 16:03 Dose: 125 mg Methylprednisolone (Solu-Medrol 125 Mg Vial) 60 mg IV Q8H [facility] Last Admin: 02/18/19 00:29 Dose: 60 mg Montelukast Sodium (Singulair) 10 mg PO DAILY [facility] Olanzapine (Zyprexa Zydis) 10 mg PO NOW ONE Stop: 02/17/19 14:37 Last Admin: 02/17/19 14:40 Dose: 10 mg Olanzapine (Zyprexa Zydis) 15 mg PO DAILY [facility] Olanzapine (Zyprexa Zydis) 20 mg PO BEDTIME [facility] Last Admin: 02/17/19 22:40 Dose: Not Given Olanzapine (Zyprexa Zydis) 10 mg PO BEDTIME [facility] Ondansetron HCl (Zofran) 4 mg IV NOW ONE Stop: 02/17/19 12:30 Last Admin: 02/17/19 13:58 Dose: 4 mg Vital Signs - 8 hr 02/18/19 09:57 02/18/19 10:42 02/18/19 11:54 Temperature 97.3 F L Pulse Rate 99 H 90 Respiratory Rate 22 20 Blood Pressure 102/52 L Pulse Oximetry 93 93 91 02/18/19 13:36 02/18/19 15:00 02/18/19 15:33 Temperature 98.3 F Pulse Rate 72 91 H Respiratory Rate 18 17 Blood Pressure 115/67 Pulse Oximetry 96 93 96 02/18/19 17:22 Temperature Pulse Rate Respiratory Rate 18 Blood Pressure Pulse Oximetry 95 MDM - Fever <LIZBETH Jeter - Last Filed: 02/17/19 23:37> Medical Records Attestation: I reviewed the patient's medical records. Lab Data Attestation: I reviewed the patient's lab results. Result diagrams: 02/18/19 05:45 02/17/19 13:45 Lab Results 02/17/19 02/17/19 02/17/19 Range/Units 13:25 13:45 13:45 WBC 7.0 (4.5-11.0) X10^3/uL RBC 4.00 L (4.5-5.9) X10^6/uL Hgb 9.7 L (13.5-17.5) g/dL Hct 30.4 L (41-53) % MCV 76.0 L (80-100) fL MCH 24.3 L (26-34) PG MCHC 32.0 (30-36) % RDW 15.3 H (11.6-14.8) % Plt Count 98 L (150-400) X10^3/uL Neut % (Auto) 83.6 H (50-75) % Lymph % (Auto) 9.0 L (25-40) % Mora % (Auto) 6.3 (3-14) % Eos % (Auto) 0.4 L (2-4) % Baso % (Auto) 0.7 (0-2) % Neut # (Auto) 5900 (0476-0607) /uL Lymph # (Auto) 600 L (3831-0536) /uL Mora # (Auto) 400 (0-900) /uL Eos # (Auto) 0 (0-450) /uL Baso # (Auto) 0 (0-100) /uL PT 14.3 H (10.1-12.7) SECONDS INR 1.2 (0.9-1.3) APTT 37 H (26.4-36.2) SECONDS Sodium (137-145) mmol/L Potassium (3.4-5.1) mmol/L Chloride (98-107) mmol/L Carbon Dioxide (22-32) mmol/L BUN (9-20) mg/dL Creatinine (0.66-1.25) mg/dL Estimated GFR (>60) mL/min BUN/Creatinine Ratio (6-22) Glucose (70-100) mg/dL Lactate (0.7-2.1) mmol/L Calcium (8.4-10.2) mg/dL Total Bilirubin (0.2-1.3) mg/dL AST (17-59) IU/L ALT (21-72) IU/L Alkaline Phosphatase (38-126) U/L Total Creatine Kinase (55-170) U/L CK-MB (CK-2) CK-MB (CK-2) Rel Index Troponin I (0.01-0.034) ng/mL Total Protein (6.3-8.2) g/dL Albumin (3.5-5.0) g/dL Globulin (1.7-4.1) g/dL Albumin/Globulin Ratio (1.0-2.8) Lipase (23-300) U/L Procalcitonin (<0.5) ng/mL Chlamy pneumoniae PCR (Not Detect) Adenovirus (PCR) (Not Detect) B.parapertussis DNA PCR (Not Detect) Coronavirus OC43 (PCR) (Not Detect) Coronavirus HKU1 (PCR) (Not Detect) Coronavirus 229E (PCR) (Not Detect) Coronavirus NL63 (PCR) (Not Detect) Human Metapneumovir PCR (Not Detect) Influenza Type A (PCR) (Not Detect) Influenza Type B (PCR) (Not Detect) Influenza A & B (PCR) Negative (Negative) M. pneumoniae (PCR) (Not Detect) Parainfluenza 1 (PCR) (Not Detect) Parainfluenza 2 (PCR) (Not Detect) Parainfluenza 3 (PCR) (Not Detect) Parainfluenza 4 (PCR) (Not Detect) RSV (PCR) (Not Detect) Entero/Rhino (PCR) (Not Detect) 02/17/19 02/17/19 02/17/19 Range/Units 13:45 13:45 13:45 WBC (4.5-11.0) X10^3/uL RBC (4.5-5.9) X10^6/uL Hgb (13.5-17.5) g/dL Hct (41-53) % MCV (80-100) fL MCH (26-34) PG MCHC (30-36) % RDW (11.6-14.8) % Plt Count (150-400) X10^3/uL Neut % (Auto) (50-75) % Lymph % (Auto) (25-40) % Mora % (Auto) (3-14) % Eos % (Auto) (2-4) % Baso % (Auto) (0-2) % Neut # (Auto) (6673-9235) /uL Lymph # (Auto) (5307-5055) /uL Mora # (Auto) (0-900) /uL Eos # (Auto) (0-450) /uL Baso # (Auto) (0-100) /uL PT (10.1-12.7) SECONDS INR (0.9-1.3) APTT (26.4-36.2) SECONDS Sodium 138 (137-145) mmol/L Potassium 3.7 (3.4-5.1) mmol/L Chloride 101 (98-107) mmol/L Carbon Dioxide 33 H (22-32) mmol/L BUN 5 L (9-20) mg/dL Creatinine 0.50 L (0.66-1.25) mg/dL Estimated GFR > 60.0 (>60) mL/min BUN/Creatinine Ratio 10.0 (6-22) Glucose 90 (70-100) mg/dL Lactate 0.6 L (0.7-2.1) mmol/L Calcium 8.4 (8.4-10.2) mg/dL Total Bilirubin 0.6 (0.2-1.3) mg/dL AST 11 L (17-59) IU/L ALT 9 L (21-72) IU/L Alkaline Phosphatase 72 (38-126) U/L Total Creatine Kinase (55-170) U/L CK-MB (CK-2) CK-MB (CK-2) Rel Index Troponin I (0.01-0.034) ng/mL Total Protein 6.5 (6.3-8.2) g/dL Albumin 3.4 L (3.5-5.0) g/dL Globulin 3.1 (1.7-4.1) g/dL Albumin/Globulin Ratio 1.1 (1.0-2.8) Lipase < 10 L (23-300) U/L Procalcitonin < 0.05 (<0.5) ng/mL Chlamy pneumoniae PCR (Not Detect) Adenovirus (PCR) (Not Detect) B.parapertussis DNA PCR (Not Detect) Coronavirus OC43 (PCR) (Not Detect) Coronavirus HKU1 (PCR) (Not Detect) Coronavirus 229E (PCR) (Not Detect) Coronavirus NL63 (PCR) (Not Detect) Human Metapneumovir PCR (Not Detect) Influenza Type A (PCR) (Not Detect) Influenza Type B (PCR) (Not Detect) Influenza A & B (PCR) (Negative) M. pneumoniae (PCR) (Not Detect) Parainfluenza 1 (PCR) (Not Detect) Parainfluenza 2 (PCR) (Not Detect) Parainfluenza 3 (PCR) (Not Detect) Parainfluenza 4 (PCR) (Not Detect) RSV (PCR) (Not Detect) Entero/Rhino (PCR) (Not Detect) 02/17/19 02/17/19 02/18/19 Range/Units 15:55 19:17 05:45 WBC 2.8 L D (4.5-11.0) X10^3/uL RBC 4.26 L (4.5-5.9) X10^6/uL Hgb 10.3 L (13.5-17.5) g/dL Hct 32.4 L (41-53) % MCV 76.1 L (80-100) fL MCH 24.3 L (26-34) PG MCHC 31.9 (30-36) % RDW 15.2 H (11.6-14.8) % Plt Count 104 L (150-400) X10^3/uL Neut % (Auto) 77.6 H (50-75) % Lymph % (Auto) 20.6 L (25-40) % Mora % (Auto) 1.6 L (3-14) % Eos % (Auto) 0.0 L (2-4) % Baso % (Auto) 0.2 (0-2) % Neut # (Auto) 2200 (4740-7005) /uL Lymph # (Auto) 600 L (1137-6386) /uL Mora # (Auto) 0 (0-900) /uL Eos # (Auto) 0 (0-450) /uL Baso # (Auto) 0 (0-100) /uL PT (10.1-12.7) SECONDS INR (0.9-1.3) APTT (26.4-36.2) SECONDS Sodium (137-145) mmol/L Potassium (3.4-5.1) mmol/L Chloride (98-107) mmol/L Carbon Dioxide (22-32) mmol/L BUN (9-20) mg/dL Creatinine (0.66-1.25) mg/dL Estimated GFR (>60) mL/min BUN/Creatinine Ratio (6-22) Glucose (70-100) mg/dL Lactate (0.7-2.1) mmol/L Calcium (8.4-10.2) mg/dL Total Bilirubin (0.2-1.3) mg/dL AST (17-59) IU/L ALT (21-72) IU/L Alkaline Phosphatase (38-126) U/L Total Creatine Kinase 25 L (55-170) U/L CK-MB (CK-2) TNP CK-MB (CK-2) Rel Index TNP Troponin I < 0.012 (0.01-0.034) ng/mL Total Protein (6.3-8.2) g/dL Albumin (3.5-5.0) g/dL Globulin (1.7-4.1) g/dL Albumin/Globulin Ratio (1.0-2.8) Lipase (23-300) U/L Procalcitonin (<0.5) ng/mL Chlamy pneumoniae PCR Not detected (Not Detect) Adenovirus (PCR) Not detected (Not Detect) B.parapertussis DNA PCR Not detected (Not Detect) Coronavirus OC43 (PCR) Not detected (Not Detect) Coronavirus HKU1 (PCR) Not detected (Not Detect) Coronavirus 229E (PCR) Not detected (Not Detect) Coronavirus NL63 (PCR) Not detected (Not Detect) Human Metapneumovir PCR Not detected (Not Detect) Influenza Type A (PCR) Not detected (Not Detect) Influenza Type B (PCR) Not detected (Not Detect) Influenza A & B (PCR) (Negative) M. pneumoniae (PCR) Not detected (Not Detect) Parainfluenza 1 (PCR) Not detected (Not Detect) Parainfluenza 2 (PCR) Not detected (Not Detect) Parainfluenza 3 (PCR) Not detected (Not Detect) Parainfluenza 4 (PCR) Not detected (Not Detect) RSV (PCR) Not detected (Not Detect) Entero/Rhino (PCR) Not detected (Not Detect) Point of Care Testing Glucose POC 124 Urine Dip Bedside Urine Glucose Negative Bedside Urine Bilirubin - Negative Bedside Urine Ketone - Negative Urine Specific Slater 1.020 Bedside Urine Occult Blood - Negative Bedside Urine pH 6.5 Bedside Urine Protein +/- 15 Bedside Urine Urobilinogen +/- 1mg Bedside Urine Nitrite - Negative Bedside Urine Leukocytes - Negative Esterase Imaging Data Chest x-ray: Radiologist's impression: [address] [place] [id number] XRay Report Signed Patient: Babatunde Fitzgerald KMR#: [id number] : 1980Acct:[id number] Age/Sex: 38 / MDate of Service: 02/17/19 Loc: ED Accession Number: [id number] Procedure: XR chest 1V Ordering Provider: Concepcion Damian D.O. PROCEDURE: XR CHEST 1V INDICATIONS: suspected sepsis TECHNIQUE: One view of the chest was acquired. [facility] 13[facility]. FINDINGS: Surgical changes and devices: None. Lungs and pleura: There is improved aeration of the bilateral hilar opacities as well as retrocardiac consolidative opacity since 02/14/19. Low lung volumes with scattered subsegmental atelectasis/scarring. Persistent retrocardiac streaky opacities persist.. No pleural effusions or pneumothorax. Mediastinum: Mediastinal contours appear normal. Heart size is stable. Bones and chest wall: No suspicious bony lesions. Overlying soft tissues appear unremarkable. IMPRESSION: Improved aeration of both lungs since the prior study dated 02/14/19 although residual patchy and streaky retrocardiac left lower lobe opacities persist. No new consolidation. Dictated by: Guillaume Greco M.D. on 02/17/2019 at 12:36 Approved by: Guillaume Greco M.D. on 02/17/2019 at 12:38 Post PICC insertion: Radiologist's impression: [address] [id number] XRay Report Signed Patient: Babatunde Fitzgerald KMR#: [id number] : 1980Acct:[id number] Age/Sex: 38 / MDate of Service: 02/17/19 Loc: ED Accession Number: [id number] Procedure: XR chest for PICC 1V Ordering Provider: Concepcion Damian D.O. PROCEDURE: XR CHEST FOR PICC 1V INDICATIONS: line placement COMPARISON: [facility], CR, XR CHEST 1V, 02/17/2019, 12:55. [facility], CR, XR CHEST 1V, 02/14/2019, 13:42. FINDINGS: PICC was placed by the intravenous therapy team from the right side. Fluoroscopic spot film demonstrates tip of PICC in the junction of the [id number]-[id number]-mavier thirds of the superior vena cava. IMPRESSION: Tip of PICC lies within the superior vena cava just below the level of the azygos arch. Dictated by: Jesus Bueno M.D. on 02/17/2019 at 13:41 Approved by: Jesus Bueno M.D. on 02/17/2019 at 13:42 ECG Data Attestation: I personally reviewed and interpreted this ECG as follows: Interpretation: Normal sinus rhythm. No ST elevation or ST depression or T-wave inversion. EKG also reviewed by Dr. Damian. [facility] Narrative Medical decision making narrative: Most likely asthma exacerbation due to diffuse wheezes, low oxygen saturation, negative chest x-ray, history of asthma exacerbations. Patient is not able to go home as he does have oxygen at home. Less likely pneumonia due to negative chest x-ray, normal white blood cell, and lack of toxic appearing symptoms such as fever. Was concerned for cellulitis to pressure ulcers due to exam and positive appearance of wounds. <Concepcion Damian, - Last Filed: 02/18/19 17:54> Lab Data Lab Results 02/17/19 02/17/19 02/17/19 Range/Units 13:25 13:45 13:45 WBC 7.0 (4.5-11.0) X10^3/uL RBC 4.00 L (4.5-5.9) X10^6/uL Hgb 9.7 L (13.5-17.5) g/dL Hct 30.4 L (41-53) % MCV 76.0 L (80-100) fL MCH 24.3 L (26-34) PG MCHC 32.0 (30-36) % RDW 15.3 H (11.6-14.8) % Plt Count 98 L (150-400) X10^3/uL Neut % (Auto) 83.6 H (50-75) % Lymph % (Auto) 9.0 L (25-40) % Mora % (Auto) 6.3 (3-14) % Eos % (Auto) 0.4 L (2-4) % Baso % (Auto) 0.7 (0-2) % Neut # (Auto) 5900 (6988-4909) /uL Lymph # (Auto) 600 L (3989-8603) /uL Mora # (Auto) 400 (0-900) /uL Eos # (Auto) 0 (0-450) /uL Baso # (Auto) 0 (0-100) /uL PT 14.3 H (10.1-12.7) SECONDS INR 1.2 (0.9-1.3) APTT 37 H (26.4-36.2) SECONDS Sodium (137-145) mmol/L Potassium (3.4-5.1) mmol/L Chloride (98-107) mmol/L Carbon Dioxide (22-32) mmol/L BUN (9-20) mg/dL Creatinine (0.66-1.25) mg/dL Estimated GFR (>60) mL/min BUN/Creatinine Ratio (6-22) Glucose (70-100) mg/dL Lactate (0.7-2.1) mmol/L Calcium (8.4-10.2) mg/dL Total Bilirubin (0.2-1.3) mg/dL AST (17-59) IU/L ALT (21-72) IU/L Alkaline Phosphatase (38-126) U/L Total Creatine Kinase (55-170) U/L CK-MB (CK-2) CK-MB (CK-2) Rel Index Troponin I (0.01-0.034) ng/mL Total Protein (6.3-8.2) g/dL Albumin (3.5-5.0) g/dL Globulin (1.7-4.1) g/dL Albumin/Globulin Ratio (1.0-2.8) Lipase (23-300) U/L Procalcitonin (<0.5) ng/mL Chlamy pneumoniae PCR (Not Detect) Adenovirus (PCR) (Not Detect) B.parapertussis DNA PCR (Not Detect) Coronavirus OC43 (PCR) (Not Detect) Coronavirus HKU1 (PCR) (Not Detect) Coronavirus 229E (PCR) (Not Detect) Coronavirus NL63 (PCR) (Not Detect) Human Metapneumovir PCR (Not Detect) Influenza Type A (PCR) (Not Detect) Influenza Type B (PCR) (Not Detect) Influenza A & B (PCR) Negative (Negative) M. pneumoniae (PCR) (Not Detect) Parainfluenza 1 (PCR) (Not Detect) Parainfluenza 2 (PCR) (Not Detect) Parainfluenza 3 (PCR) (Not Detect) Parainfluenza 4 (PCR) (Not Detect) RSV (PCR) (Not Detect) Entero/Rhino (PCR) (Not Detect) 02/17/19 02/17/19 02/17/19 Range/Units 13:45 13:45 13:45 WBC (4.5-11.0) X10^3/uL RBC (4.5-5.9) X10^6/uL Hgb (13.5-17.5) g/dL Hct (41-53) % MCV (80-100) fL MCH (26-34) PG MCHC (30-36) % RDW (11.6-14.8) % Plt Count (150-400) X10^3/uL Neut % (Auto) (50-75) % Lymph % (Auto) (25-40) % Mora % (Auto) (3-14) % Eos % (Auto) (2-4) % Baso % (Auto) (0-2) % Neut # (Auto) (7794-9270) /uL Lymph # (Auto) (8808-6445) /uL Mora # (Auto) (0-900) /uL Eos # (Auto) (0-450) /uL Baso # (Auto) (0-100) /uL PT (10.1-12.7) SECONDS INR (0.9-1.3) APTT (26.4-36.2) SECONDS Sodium 138 (137-145) mmol/L Potassium 3.7 (3.4-5.1) mmol/L Chloride 101 (98-107) mmol/L Carbon Dioxide 33 H (22-32) mmol/L BUN 5 L (9-20) mg/dL Creatinine 0.50 L (0.66-1.25) mg/dL Estimated GFR > 60.0 (>60) mL/min BUN/Creatinine Ratio 10.0 (6-22) Glucose 90 (70-100) mg/dL Lactate 0.6 L (0.7-2.1) mmol/L Calcium 8.4 (8.4-10.2) mg/dL Total Bilirubin 0.6 (0.2-1.3) mg/dL AST 11 L (17-59) IU/L ALT 9 L (21-72) IU/L Alkaline Phosphatase 72 (38-126) U/L Total Creatine Kinase (55-170) U/L CK-MB (CK-2) CK-MB (CK-2) Rel Index Troponin I (0.01-0.034) ng/mL Total Protein 6.5 (6.3-8.2) g/dL Albumin 3.4 L (3.5-5.0) g/dL Globulin 3.1 (1.7-4.1) g/dL Albumin/Globulin Ratio 1.1 (1.0-2.8) Lipase < 10 L (23-300) U/L Procalcitonin < 0.05 (<0.5) ng/mL Chlamy pneumoniae PCR (Not Detect) Adenovirus (PCR) (Not Detect) B.parapertussis DNA PCR (Not Detect) Coronavirus OC43 (PCR) (Not Detect) Coronavirus HKU1 (PCR) (Not Detect) Coronavirus 229E (PCR) (Not Detect) Coronavirus NL63 (PCR) (Not Detect) Human Metapneumovir PCR (Not Detect) Influenza Type A (PCR) (Not Detect) Influenza Type B (PCR) (Not Detect) Influenza A & B (PCR) (Negative) M. pneumoniae (PCR) (Not Detect) Parainfluenza 1 (PCR) (Not Detect) Parainfluenza 2 (PCR) (Not Detect) Parainfluenza 3 (PCR) (Not Detect) Parainfluenza 4 (PCR) (Not Detect) RSV (PCR) (Not Detect) Entero/Rhino (PCR) (Not Detect) 02/17/19 02/17/19 02/18/19 Range/Units 15:55 19:17 05:45 WBC 2.8 L D (4.5-11.0) X10^3/uL RBC 4.26 L (4.5-5.9) X10^6/uL Hgb 10.3 L (13.5-17.5) g/dL Hct 32.4 L (41-53) % MCV 76.1 L (80-100) fL MCH 24.3 L (26-34) PG MCHC 31.9 (30-36) % RDW 15.2 H (11.6-14.8) % Plt Count 104 L (150-400) X10^3/uL Neut % (Auto) 77.6 H (50-75) % Lymph % (Auto) 20.6 L (25-40) % Mora % (Auto) 1.6 L (3-14) % Eos % (Auto) 0.0 L (2-4) % Baso % (Auto) 0.2 (0-2) % Neut # (Auto) 2200 (8034-2220) /uL Lymph # (Auto) 600 L (6590-9691) /uL Mora # (Auto) 0 (0-900) /uL Eos # (Auto) 0 (0-450) /uL Baso # (Auto) 0 (0-100) /uL PT (10.1-12.7) SECONDS INR (0.9-1.3) APTT (26.4-36.2) SECONDS Sodium (137-145) mmol/L Potassium (3.4-5.1) mmol/L Chloride (98-107) mmol/L Carbon Dioxide (22-32) mmol/L BUN (9-20) mg/dL Creatinine (0.66-1.25) mg/dL Estimated GFR (>60) mL/min BUN/Creatinine Ratio (6-22) Glucose (70-100) mg/dL Lactate (0.7-2.1) mmol/L Calcium (8.4-10.2) mg/dL Total Bilirubin (0.2-1.3) mg/dL AST (17-59) IU/L ALT (21-72) IU/L Alkaline Phosphatase (38-126) U/L Total Creatine Kinase 25 L (55-170) U/L CK-MB (CK-2) TNP CK-MB (CK-2) Rel Index TNP Troponin I < 0.012 (0.01-0.034) ng/mL Total Protein (6.3-8.2) g/dL Albumin (3.5-5.0) g/dL Globulin (1.7-4.1) g/dL Albumin/Globulin Ratio (1.0-2.8) Lipase (23-300) U/L Procalcitonin (<0.5) ng/mL Chlamy pneumoniae PCR Not detected (Not Detect) Adenovirus (PCR) Not detected (Not Detect) B.parapertussis DNA PCR Not detected (Not Detect) Coronavirus OC43 (PCR) Not detected (Not Detect) Coronavirus HKU1 (PCR) Not detected (Not Detect) Coronavirus 229E (PCR) Not detected (Not Detect) Coronavirus NL63 (PCR) Not detected (Not Detect) Human Metapneumovir PCR Not detected (Not Detect) Influenza Type A (PCR) Not detected (Not Detect) Influenza Type B (PCR) Not detected (Not Detect) Influenza A & B (PCR) (Negative) M. pneumoniae (PCR) Not detected (Not Detect) Parainfluenza 1 (PCR) Not detected (Not Detect) Parainfluenza 2 (PCR) Not detected (Not Detect) Parainfluenza 3 (PCR) Not detected (Not Detect) Parainfluenza 4 (PCR) Not detected (Not Detect) RSV (PCR) Not detected (Not Detect) Entero/Rhino (PCR) Not detected (Not Detect) Point of Care Testing Glucose POC 124 Urine Dip Bedside Urine Glucose Negative Bedside Urine Bilirubin - Negative Bedside Urine Ketone - Negative Urine Specific Slater 1.020 Bedside Urine Occult Blood - Negative Bedside Urine pH 6.5 Bedside Urine Protein +/- 15 Bedside Urine Urobilinogen +/- 1mg Bedside Urine Nitrite - Negative Bedside Urine Leukocytes - Negative Esterase ECG Data Attestation: I personally reviewed and interpreted this ECG as follows: Prior ECG tracings: available for review Interpretation: Sinus rhythm rate 88 P are 154 QRS of 121 QTC of 432. No ST elevation or depression. Q-wave in 2 3 AVF. Discharge Plan Departure Patient Disposition: Admitted as Observation Clinical Impression: Asthma exacerbation Qualifiers: Asthma severity: severe Asthma persistence: unspecified Qualified Code(s): J45.901 - Unspecified asthma with (acute) exacerbation Discharge Date/Time: 02/17/19 18:24 Interventions: ED Discharge Assessment Last Done: 02/17/19 18:24 Admit Date/Time: 02/17/19 17:10 Admit Provider: Alyssa Muhammad <Concepcion Damian DO - Last Filed: 02/18/19 17:54> Cosign ED Attending Cosignature Attestation: I was immediately available in the department for consultation, case was discussed, patient is not able to maintain oxygen. Plan for admission. EKG reviewed along with labs, imaging and plan of care. This documentation has been reviewed and I agree with assessment and plan. Supervised by Concepcion Damian DO
--- NOTE | 2019-02-17 13:29 | DI.RAD.S_ITS ---
PROCEDURE: XR CHEST FOR PICC 1V INDICATIONS: line placement COMPARISON: [facility], CR, XR CHEST 1V, 02/17/2019, 12:55. [facility], CR, XR CHEST 1V, 02/14/2019, 13:42. FINDINGS: PICC was placed by the intravenous therapy team from the right side. Fluoroscopic spot film demonstrates tip of PICC in the junction of the [id number] thirds of the superior vena cava. IMPRESSION: Tip of PICC lies within the superior vena cava just below the level of the azygos arch. Dictated by: Jesus Bueno M.D. on 02/17/2019 at 13:41 Approved by: Jesus Bueno M.D. on 02/17/2019 at 13:42
[2019-02-17 13:43] LABS: Influenza A and B by PCR Rapid Negative (Negative)
[2019-02-17] MEDS: SODIUM CHLORIDE 0.9% 1,000 ML 1000 ML IV (13:58)
[2019-02-17] MEDS: ONDANSETRON 4 MG/2 ML INJ IV (13:58)
--- NOTE | 2019-02-17 14:08 | PC.NURSE ---
Provider removes pants and examines wounds on buttocks and legs. Well healing non purulent wounds visualized
[2019-02-17 14:12] LABS: Add Manual Diff / Slide Review NO; Basophils Absolute Auto 0 /uL (0-100); Basophils Percent Auto 0.7 % (0-2); Eosinophils Absolute Auto 0 /uL (0-450); Eosinophils Percent Auto 0.4 % (2-4); Hematocrit 30.4 % (41-53); Hemoglobin 9.7 g/dL (13.5-17.5); Lymphocytes Absolute Auto 600 /uL (1100-4500); Mean Corpuscular Hemoglobin 24.3 PG (26-34); Monocytes Absolute Auto 400 /uL (0-900); Monocytes Percent Auto 6.3 % (3-14); Neutrophils Absolute Auto 5900 /uL (1500-7000); Neutrophils Percent Auto 83.6 % (50-75); Platelet Count 98 X10^3/uL (150-400); Red Cell Distribution Width 15.3 % (11.6-14.8)
[2019-02-17 14:15] LABS: INR 1.2 (0.9-1.3); Prothrombin Time 14.3 SECONDS (10.1-12.7)
[2019-02-17 14:17] LABS: PTT Partial Thromboplastin Tim 37 SECONDS (26.4-36.2)
[2019-02-17 14:19] LABS: Alanine Aminotransferase 9 IU/L (21-72); Albumin 3.4 g/dL (3.5-5.0); Albumin Globulin Ratio 1.1 (1.0-2.8); Alkaline Phosphatase 72 U/L (38-126); Aspartate Aminotransferase 11 IU/L (17-59); Bilirubin Total 0.6 mg/dL (0.2-1.3); Blood Urea Nitrogen 5 mg/dL (9-20); Calcium 8.4 mg/dL (8.4-10.2); Carbon Dioxide 33 mmol/L (22-32); Chloride 101 mmol/L (98-107); Estimated Glomerular Filt Rate > 60.0 mL/min (>60); Globulin 3.1 g/dL (1.7-4.1); Glucose 90 mg/dL (70-100); HEMOLYSIS < 15 (0-50); Potassium 3.7 mmol/L (3.4-5.1); Sodium 138 mmol/L (137-145); Total Protein 6.5 g/dL (6.3-8.2)
[2019-02-17 14:20] LABS: Lactate (Lactic Acid) 0.6 mmol/L (0.7-2.1)
[2019-02-17] MEDS: ALBUTEROL 2.5 MG/3 ML NEB (ADULT) INH (14:27)
[2019-02-17 14:33] LABS: Lipase < 10 U/L (23-300)
[2019-02-17 14:34] LABS: Procalcitonin < 0.05 ng/mL (<0.5)
[2019-02-17] MEDS: OLANZapine ODT 10 MG TAB PO ×2 (14:40→22:56)
--- NOTE | 2019-02-17 15:35 | PC.NURSE ---
pt taken off oxygen at 1532 per rns instructions. pt desatted to 84 on a good pleth, rn aware and pt has oxygen back on
--- NOTE | 2019-02-17 15:39 | PC.NURSE ---
Provider aware pt desats w/o O2 on to 84%. Will be admitted
[2019-02-17] MEDS: methylPREDNISolone 125 MG/2 ML VIAL IV (16:03)
[2019-02-17 16:12] LABS: Creatine Kinase 25 U/L (55-170)
[2019-02-17 16:24] LABS: Troponin I < 0.012 ng/mL (0.01-0.034)
--- NOTE | 2019-02-17 17:31 | PM.HP.1 ---
History of Present Illness Date Patient Seen: 02/17/19 Time Patient Seen: 17:31 Chief complaint: Fever/generalized weakness Narrative: This is a 38-year-old male well known at this hospital due to chronic illness who presented today to the emergency department describing fairly rapid onset this morning of increasing shortness of breath, mild cough, temperature of 99.9?. He also describes mild substernal central chest pain. His initial workup including chest x-ray, EKG and troponin is negative for pneumonia and acute coronary syndrome. He is wheezing heavily and so is admitted for treatment of acute bronchospasm/asthma. He was hypoxic at 88% on room air on arrival. After treatment with nebulized albuterol and IV Solu-Medrol his saturation came up into the high 90s but when off oxygen it dropped back to 84%. His long-term pressure ulcer problem on the back of his thighs and buttocks has improved. He tells me that after his last hospital stay here a few months ago, he spent about 4 weeks at [facility] [place] before discharging home where he lives with his ex-girlfriend. It sounds like he pretty much stays to himself at home. He continues his medical care at the [facility]. No recent respiratory illness exposures. He was just here for several days a month ago with a similar presentation. No GI symptoms. Patient History Medical History Anxiety (Chronic) Asthma (Chronic) Chronic skin ulcer (Chronic) Methadone use disorder, mild, in controlled environment (Chronic) Morbid obesity (Chronic) Pulmonary hypertension (Chronic) Surgical History H/O vertebral fracture repair (Chronic) History of hip surgery (Chronic) Family History Mother Diabetes mellitus Father No problems noted. Social History household members: significant other Smoking Status: Never smoker Family & Social History Family History Mother Diabetes mellitus Father No problems noted. Social History: household members significant other Safety & Behavioral: Feels Safe in Current Yes Environment Been Physically Hurt or No Threatened By a Person Tobacco & Substance use: Tobacco type cannabis/marijuana Smoking Status Never smoker alcohol intake frequency 0-2 drinks per day Substance Use Type does not use,marijuana Comment: His backup medical decision maker is his mother Lianna Fitzgerald. Meds Home Medications Medication Instructions Recorded Confirmed Type acetaminophen 650 mg PO Q6HR PRN #30 tab 11/26/18 02/08/19 Rx diphenhydramine HCl [Allergy 25 mg PO Q6HR PRN #30 tab 11/26/18 02/08/19 Rx (diphenhydramine)] nystatin [Nystop] 1 applic TOPICAL TID PRN #1 pkg 11/26/18 02/08/19 Rx albuterol sulfate 2 - 4 puff INHALATION Q4-6H PRN 01/12/19 02/08/19 History albuterol sulfate 3 ml INHALATION QID PRN 01/12/19 02/08/19 History gabapentin [Neurontin] 300 mg PO TID #180 cap 01/15/19 02/08/19 Rx methadone 60 mg PO DAILY #1 tab 01/15/19 02/08/19 Rx olanzapine 10 mg PO BEDTIME 02/08/19 02/08/19 History olanzapine 15 mg PO DAILY #3 tab 02/08/19 Rx olanzapine 20 mg PO BEDTIME #30 tab 02/13/19 Rx Allergies Allergy/AdvReac Type Severity Reaction Status Date / Time NSAIDS (Non-Steroidal Allergy Unknown ASTHMA Verified 02/14/19 12:46 Anti-Inflamma FLARE UPS [NSAIDS (NON-STEROIDAL ANTI-INFLAMMA] ibuprofen AdvReac Mild nausea, GI Verified 02/14/19 12:46 upset Review of Systems Review of Systems Positive for fever, shortness of breath, cough, chest pain. Negative for seizures, rash, chills, abdominal pain, vomiting, nausea, diarrhea, bleeding, joint pain, difficulty talking, new allergies. All systems reviewed & are unremarkable except as noted in HPI and below Exam Vital Signs (past 8 hours): - 02/17/19 12:22 02/17/19 12:36 02/17/19 14:27 Temperature 98.1 F Pulse Rate 92 H 83 87 Respiratory Rate 26 H 18 12 Blood Pressure 127/59 L Blood Pressure [Left Wrist] Pulse Oximetry 88 L 100 99 02/17/19 15:04 02/17/19 15:35 02/17/19 16:47 Temperature Pulse Rate 95 H 89 Respiratory Rate 16 Blood Pressure Blood Pressure [Left Wrist] 120/66 119/56 L 126/63 Pulse Oximetry 82 L 93 Oxygen Delivery Method Room Air Oxygen Flow Rate 2 Narrative Exam Narrative: He is alert and oriented x3, in no apparent distress, wearing nasal cannula oxygen and looking quite comfortable. Compared to the last time I had participated in his care over the winter he looks much better. He is more alert, generally healthier, looks younger. Pupils are equally round and reactive to light and accommodation. Extraocular muscles are intact. Sclerae are pink and nonicteric. Throat looks normal. No lymph nodes are felt head neck, supraclavicular area. There is no thyromegaly. There is copious superfluous tissue in the neck/face. JVD is less than 6 cm. No carotid bruits are heard. Heart is regular rate and rhythm without murmur. Lungs have notable wheezes and tight air flow bilaterally. Abdomen is obese, bowel sounds positive, nontender, no organomegaly. Extremities have no ankle edema. His extra adipose tissue is quite evenly distributed including to all extremities. Skin there are no pressure/open areas around the buttocks/anus. There are small superficial erosions on the backs of the upper thighs. This appears to be less than half the size that I recall them being last winter. It is notable that the body odor smell in the room is quite rank. Objective Labs Result Diagrams: 02/17/19 13:45 02/17/19 13:45 Labs: Laboratory Results - last 24 hr 02/17/19 02/17/19 02/17/19 13:25 13:45 13:45 WBC 7.0 RBC 4.00 L Hgb 9.7 L Hct 30.4 L MCV 76.0 L MCH 24.3 L MCHC 32.0 RDW 15.3 H Plt Count 98 L Neut % (Auto) 83.6 H Lymph % (Auto) 9.0 L [place] % (Auto) 6.3 Eos % (Auto) 0.4 L Baso % (Auto) 0.7 Neut # (Auto) 5900 Lymph # (Auto) 600 L [place] # (Auto) 400 Eos # (Auto) 0 Baso # (Auto) 0 PT 14.3 H INR 1.2 APTT 37 H Sodium Potassium Chloride Carbon Dioxide BUN Creatinine Estimated GFR BUN/Creatinine Ratio Glucose Lactate Calcium Total Bilirubin AST ALT Alkaline Phosphatase Total Creatine Kinase CK-MB (CK-2) CK-MB (CK-2) Rel Index Troponin I Total Protein Albumin Globulin Albumin/Globulin Ratio Lipase Procalcitonin Influenza A & B (PCR) Negative 02/17/19 02/17/19 02/17/19 13:45 13:45 13:45 WBC RBC Hgb Hct MCV MCH MCHC RDW Plt Count Neut % (Auto) Lymph % (Auto) [place] % (Auto) Eos % (Auto) Baso % (Auto) Neut # (Auto) Lymph # (Auto) [place] # (Auto) Eos # (Auto) Baso # (Auto) PT INR APTT Sodium 138 Potassium 3.7 Chloride 101 Carbon Dioxide 33 H BUN 5 L Creatinine 0.50 L Estimated GFR > 60.0 BUN/Creatinine Ratio 10.0 Glucose 90 Lactate 0.6 L Calcium 8.4 Total Bilirubin 0.6 AST 11 L ALT 9 L Alkaline Phosphatase 72 Total Creatine Kinase CK-MB (CK-2) CK-MB (CK-2) Rel Index Troponin I Total Protein 6.5 Albumin 3.4 L Globulin 3.1 Albumin/Globulin Ratio 1.1 Lipase < 10 L Procalcitonin < 0.05 Influenza A & B (PCR) 02/17/19 15:55 WBC RBC Hgb Hct MCV MCH MCHC RDW Plt Count Neut % (Auto) Lymph % (Auto) [place] % (Auto) Eos % (Auto) Baso % (Auto) Neut # (Auto) Lymph # (Auto) [place] # (Auto) Eos # (Auto) Baso # (Auto) PT INR APTT Sodium Potassium Chloride Carbon Dioxide BUN Creatinine Estimated GFR BUN/Creatinine Ratio Glucose Lactate Calcium Total Bilirubin AST ALT Alkaline Phosphatase Total Creatine Kinase 25 L CK-MB (CK-2) TNP CK-MB (CK-2) Rel Index TNP Troponin I < 0.012 Total Protein Albumin Globulin Albumin/Globulin Ratio Lipase Procalcitonin Influenza A & B (PCR) Assessment & Plan Assessment & Plan narrative: Acute respiratory failure with hypoxia, O2 saturation of 88% on room air -continue oxygen by nasal cannula to keep saturation at 90% or better. He is full code. -respiratory viral panel pending. -repeat CBC and chest x-ray in the morning. -check procalcitonin, less than 0.05. -begin IV Solu-Medrol and continue nebulized albuterol. Acute bronchospasm of asthma exacerbation -continue oxygen, IV Solu-Medrol and nebulized albuterol treatments. Anemia of chronic disease -repeat CBC in the morning. -hemoglobin was at similar levels on his last hospital stay. Methadone treatment of opiate use disorder -continue home methadone dose 60 mg a day. Anxiety -continue and clarify home Zyprexa dose. He appears to be on a 15 mg in the morning and a 20 mg in the evening dose but those numbers will need to be confirmed. Obesity -nutritional consult requested Decubitus pressure ulcers of the posterior thighs -wound care consult requested -he tends to scratch at these areas, enlarging them during hospital stays. He has also required special hospital beds for pressure equalization and for healing in the past. Disposition -if an improving trend can be established immediately I anticipate a short hospital stay and return home. Based on recent history however he this may not be possible. It was apparently a successful discharge last time to the [facility] for rehab.
[2019-02-17] MEDS: GABAPENTIN 300 MG CAPSULE PO (22:03)
--- NOTE | 2019-02-17 22:41 | PC.NURSE ---
1830 admit note:A&OX4, 93% 2L. LS: wheezes. SOB w/exertion. cont pulse ox. denied pain. cms+. sba to the BSC. Oriented pt to the room. Pt had his dinner tonight and 1 snack. call light in reach. bed alarm active.
[2019-02-18] VITALS (16 sets, daily range): BP systolic 102–134; BP diastolic 52–74; PULSE 70–99; RESP 17–22; TEMP 36.3–36.8; O2SAT 89–96
--- NOTE | 2019-02-18 | DI.RAD.S_ITS ---
PROCEDURE: XR CHEST 1V INDICATIONS: hypoxia TECHNIQUE: One view of the chest was acquired. COMPARISON: [facility], CR, XR CHEST 1V, 02/17/2019, 12:55. [facility], CR, XR CHEST FOR PICC 1V, 02/17/2019, 13:29. FINDINGS: Surgical changes and devices: The right-sided PICC line catheter is unchanged with the tip overlying the mid superior vena cava. Lungs and pleura: Increased hilar markings are identified bilaterally, which have increased in the interim. There may be developing areas of mild bibasilar consolidation. No large effusion or definite pneumothorax is evident. Mediastinum: Mediastinal contours appear normal. The heart appears enlarged. Bones and chest wall: No suspicious bony lesions. Overlying soft tissues appear unremarkable. IMPRESSION: 1. Cardiomegaly with moderate vascular congestion is suggestive of developing pulmonary edema, which is more pronounced on the current study. 2. Bibasilar atelectasis versus less likely pneumonia or aspiration. Dictated by: Sea Evans M.D. on 02/18/2019 at 7:11 Approved by: Sea Evans M.D. on 02/18/2019 at 7:13
[2019-02-18] MEDS: methylPREDNISolone 125 MG/2 ML VIAL 60 MG IV (00:29)
[2019-02-18] MEDS: SODIUM CHLORIDE 0.9% FLUSH 10 ML IV ×4 (00:30→22:01)
[2019-02-18 00:33] LABS: Adenovirus Not Detected (Not Detect); Bordetella pertussis Not Detected (Not Detect); Chlamydophila pneumoniae Not Detected (Not Detect); Coronavirus 229E Not Detected (Not Detect); Coronavirus HKU1 Not Detected (Not Detect); Coronavirus NL 63 Not Detected (Not Detect); Coronavirus OC43 Not Detected (Not Detect); Human Metapneumovirus Not Detected (Not Detect); Human Rhinovirus/Enterovirus Not Detected (Not Detect); Influenza A Not Detected (Not Detect); Influenza B Not Detected (Not Detect); Mycoplasma pneumoniae Not Detected (Not Detect); Parainfluenza Virus 1 Not Detected (Not Detect); Parainfluenza Virus 2 Not Detected (Not Detect); Parainfluenza Virus 3 Not Detected (Not Detect); Parainfluenza Virus 4 Not Detected (Not Detect); Respiratory Syncytial Virus Not Detected (Not Detect)
[2019-02-18] MEDS: ALBUTEROL 2.5 MG/3 ML NEB (ADULT) INH ×5 (00:44→17:22)
--- NOTE | 2019-02-18 01:26 | PC.NURSE ---
Addendum entered by Cheryl Phipps R.N. 02/18/19 05:53: Slept most of shift. Up to BS this morning and able to see posterior and noted scattered open areas on posterior thighs and lower buttocks. Blood drawn from PICC for morning lab and xray here to do chest xray. Patient's only question is when next dose of Olanzapine is going to be given. Original Note: Patient has been very somnolent since shift change. Did arouse when given scheduled dose of Solumedrol. Asked if he was going to be given his Olanzapine and became emotional when told he had already taken it and adamantly denies receiving the medication even though this RN saw previous shift RN give him the medication. Patient kept repeating I swear to God I didn't get it. After RN left room patient starting crying to [employer] because he states he is so anxious yet when went back to complete assessment patient was again sleeping. Would arouse briefly but not really answering questions and only conversation was to ask when he gets his next dose of Olanzapine. Breath sounds with expiratory wheezing but not audible. Oxygen at 2L/min per NC with sat of 94%. BT present. Voiding per urinal. Refused to turn to allow RN to examine pressure ulcers reported on posterior thighs; did note some bright red blood on linen. Scratched a spot on right LE causing it to bleed but refuses any treatment. Foul odor emantating from room. Fall risk score is moderate; bed alarm is activated.
[2019-02-18 06:20] LABS: Add Manual Diff / Slide Review NO; Basophils Absolute Auto 0 /uL (0-100); Basophils Percent Auto 0.2 % (0-2); Eosinophils Absolute Auto 0 /uL (0-450); Hematocrit 32.4 % (41-53); Hemoglobin 10.3 g/dL (13.5-17.5); Lymphocytes Absolute Auto 600 /uL (1100-4500); Lymphocytes Percent Auto 20.6 % (25-40); Mean Corpuscular HGB Conc 31.9 % (30-36); Mean Corpuscular Hemoglobin 24.3 PG (26-34); Mean Corpuscular Volume 76.1 fL (80-100); Monocytes Absolute Auto 0 /uL (0-900); Monocytes Percent Auto 1.6 % (3-14); Neutrophils Absolute Auto 2200 /uL (1500-7000); Neutrophils Percent Auto 77.6 % (50-75); Platelet Count 104 X10^3/uL (150-400); Red Blood Cell Count 4.26 X10^6/uL (4.5-5.9); Red Cell Distribution Width 15.2 % (11.6-14.8)
[2019-02-18 06:25] LABS: White Blood Cell Count 2.8 X10^3/uL (4.5-11.0)
[2019-02-18] MEDS: ENOXAPARIN 40 MG/0.4 ML SYRINGE SUBCUT ×2 (08:33→22:01)
[2019-02-18] MEDS: GABAPENTIN 300 MG CAPSULE PO ×3 (08:34→22:01)
[2019-02-18] MEDS: METHADONE 10 MG TABLET 60 MG PO (08:34)
[2019-02-18] MEDS: OLANZapine ODT 10 MG TAB PO (08:34)
[2019-02-18] MEDS: predniSONE 20 MG TABLET 40 MG PO (08:34)
--- NOTE | 2019-02-18 10:51 | PT.IIE ---
Current Diagnoses Severe persistent asthma with (acute) exacerbation (02/17/19) Surgical History (Last Reviewed 02/17/19 @ 23:33 by LIZBETH Jeter) H/O vertebral fracture repair (Chronic) History of hip surgery (Chronic) Medical History (Last Reviewed 02/17/19 @ 23:33 by LIZBETH Jeter) Anxiety (Chronic) Asthma (Chronic) Chronic skin ulcer (Chronic) Methadone use disorder, mild, in controlled environment (Chronic) Morbid obesity (Chronic) Pulmonary hypertension (Chronic) Physical Therapy Inpatient Evaluation/Re-Eval M1 PT/OT-IP Prior Functional Status Start: 02/18/19 12:25 Freq: NEEDED Status: Active Protocol: Document 02/18/19 10:51 [facility] (Rec: 02/18/19 12:42 [facility] [id number]) Medical Review Prior Functional Status Medical History Reviewed Yes Mobility and Gait mod indep gait with 4WW indoors, electric scooter outdoors Social History Household Members significant other Living Arrangements House Number of Floors (Floors) One Floor Home Environment Standard Height Toilet Walk in Shower Home Equipment Four Wheel Walker Power Wheelchair/Scooter Raised Toilet Seat Without Armrests Additional Social History Comment pt with rapid onset of SOB, cough and temperature of 99.9 deg F presnted to the ER. Pt also with c/o chest pain, and found to be hypoxic. M2 PT-IP Current Condition Start: 02/18/19 12:25 Freq: NEEDED Status: Active Protocol: Document 02/18/19 10:51 [facility] (Rec: 02/18/19 12:42 [facility] [id number]) Physical Therapy Current Condition Current Condition Evaluation Date 02/18/19 Treatment Diagnosis fever/generalized weakness, impaired activity tolerance M3 PT-IP Subjective Start: 02/18/19 12:25 Freq: NEEDED Status: Active Protocol: Document 02/18/19 10:51 [facility] (Rec: 02/18/19 12:42 [facility] [id number]) Subjective Physical Therapy Visit Type Type Initial Evaluation Visit Start Time 10:51 Visit Stop Time 11:06 Total Visit Minutes 15 Number of CLINICAL SCIENCE CONSULTANT Visits 0 Physical Therapy Visit Comments Patient Comments pt agreeable to ambulate in hallway; he refused gait belt or shoes or socks M4 PT-IP Mobility and Gait Start: 02/18/19 12:25 Freq: NEEDED Status: Active Protocol: Document 02/18/19 10:51 [facility] (Rec: 02/18/19 12:42 [facility] [id number]) PT-Bed Mobility Assessment Supine to Sit Supine to Sit Independent Head of Bed Elevated Scooting Scooting to Edge of Bed Independent PT-Transfer Assessment Sit to and From Stand Sit to and from Stand Independent Equipment Transfer Assistive Device Gait Belt Front Wheeled Walker Transfers Transfer Destination Bed Transfer Technique Stand Step Pivot Transfer Ability Level of Assist Standby Assistance Gait Assessment Gait Gait Assistance Required: Standby Assistance Distance (Feet) 60 Assistive Devices Assistive Device Front Wheeled Walker Gait Deviations General Gait Pattern Decreased Stride Length Decreased Feet Clearance Flexed Trunk Wide Based Gait Factors Limiting Gait Function Factors Limiting Gait Function Decreased Activity Tolerance Decreased Strength Pain Poor Balance Comments Gait Comments O2 saturation 89-92% on RA after gait. PT-Balance Assessment Sitting Balance and Reactions Static Sitting Balance Ability Good Dynamic Sitting Balance Ability Good Standing Balance and Reactions Static Standing Balance Ability Fair Dynamic Standing Balance Ability Fair Device Used FWW M5 PT-IP Objective Assessments Start: 02/18/19 12:25 Freq: NEEDED Status: Active Protocol: Document 02/18/19 10:51 [facility] (Rec: 02/18/19 12:42 [facility] [id number]) Orientation Orientation/Cognition Level of Alertness Alert Gross Range of Motion Lower Extremity ROM Assessment Within Functional Limits Strength Lower Extremity Strength Hip flexion 3+/5 B Knee flexion and extension 4/5 B M7 PT-IP Assessment and Plan Start: 02/18/19 12:25 Freq: NEEDED Status: Active Protocol: Document 02/18/19 10:51 [facility] (Rec: 02/18/19 12:42 [facility] [id number]) PT Summary Assessment and Plan Potential Rehabilitation Potential Good Status of Condition at Evaluation Evolving Summary Impairments Pain Strength Balance Gait Activity Tolerance Assessment Summary Pt able to ambulate 60 ft with FWW and SBA, c/o fatigue but O2 saturation 89% or greater during mobility and after gait . Pt at this time is able to ambulate safe household distances with walker. No respiratory distress with gait this session. If pt continues to improve, he potentially may be a candidate for return home with assistance when medically stable. Goals Gait Goal Standby Assistance Front Wheel Walker Gait Distance 100 Days to Meet Goals 5 Frequency of Treatment Frequency Of Treatment Once a Day Treatment Plan Physical Therapy Treatment Plan Bed Mobility Training Transfer Training Gait Training Therapeutic Exercise Balance Retraining Discharge Planning Neuromuscular Re-ed Other Recommendations and Next Treatment cont to progress gait as Focus tolerated Recommendations To Nursing Amount of Assist Needed 1 Person Assist Discharge Recommendations PT Discharge Recommendations Home with Assistance Home Health
--- NOTE | 2019-02-18 11:55 | P.PN_ITS ---
Subjective Date Patient Seen: 02/18/19 Interval history: Babatunde Fitzgerald is a 38-year-old male with a past medical history significant for morbid obesity, chronic respiratory failure secondary to asthma on chronic prednisone, obesity hypoventilation syndrome and RAJESH; chronic pain with methadone dependence, and chronic decubitus pressure ulcerations of scrotum and posterior thighs who presented for worsening shortness of breath and wheezing. The patient is resting in bed comfortably. He is mildly somnolent but arouses easily. The patient states his breathing is ?bad? but does endorse improvement since yesterday. He also complains about his buttocks/posterior thighs hurting. He has no other complaints. He denies headache, chest pain, abdominal pain, nausea, vomiting, fever, chills, dysuria, diarrhea or constipation. He is voiding and eliminating without difficulty. He is up ambulating with assistance and PT. Discussed the patient's care in detail with his PCP Dr. Hernández. The patient had recently during his last hospitalization been titrated down on methadone to 60 mg daily which was restarted at 75 mg outpatient due to the patient neglecting to inform PCP. Also I was informed that his olanzapine is at 10 mg daily (patient reported twice daily). Patient has been on prednisone for a long period of time and reports that he is on prednisone 5 mg twice daily which is not listed in his medications. Patient is currently on steroids for asthma exacerbation. Discussed this with Dr. Hernández who agrees that patient should be quickly titrated down to 5 mg twice daily over the next several days. His prednisone dependence may be if significant part of why he has had breathing issues most recently. Discussed with the patient the repercussions of inaccurate reporting of medications to nursing staff during med reconciliation process and affect on health. Also discussed noncompliance with wound care clinic and overall medical management with several different entities and that it will make his life very difficult if he were to have significant issues in the future. Exam Vital Signs (past 8 hours): - 02/18/19 05:30 02/18/19 06:04 02/18/19 08:21 Temperature 97.3 F L Pulse Rate 79 77 Respiratory Rate 19 18 Blood Pressure 110/66 Pulse Oximetry 94 96 89 L 02/18/19 08:36 02/18/19 09:57 02/18/19 10:42 Temperature 98.3 F Pulse Rate 83 99 H Respiratory Rate 20 22 Blood Pressure 129/74 Pulse Oximetry 94 93 93 Fraction of Inspired Oxygen 26 Oxygen Delivery Method Nasal Cannula Oxygen Flow Rate 1.5 Narrative Exam Narrative: General: Young morbidly obese gentleman lying in bed and in no acute distress, well-developed, well-nourished, mild somnolence but arouses easily. HEENT: Normocephalic, atraumatic. External ears without defect. Pupils equal, round, and reactive to light. Anicteric sclerae, moist conjunctivae, and no lid lag. Several excoriations on face and dry skin. Neck: Supple with full range of motion. No lymphadenopathy or thyromegaly. Cardiovascular: Heart sounds distant but appear regular rate and rhythm without murmurs, rubs, or gallops appreciated. Pulmonary: Diminished throughout but clear to auscultation bilaterally with occasional scattered wheeze. Normal respiratory effort with no use of accessory muscles. Abdomen: Soft, obese, bowel sounds present, nontender, nondistended. No hepatosplenomegaly or masses appreciated. Extremities: No clubbing or cyanosis. Brawny edema to knees bilaterally. Skin: Normal temperature, turgor, and texture; several previous stage II decubitus pressure ulcerations of posterior thighs and scrotum in various stages of healing but have significantly improved and resolving. Neurological: Cranial nerves grossly intact. Psychiatric: Depressed mood and flat affect. Mild somnolence but easily arousable. Poor insight into disease process. 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 Objective Labs Result Diagrams: 02/18/19 05:45 02/17/19 13:45 Labs: Laboratory Results - last 24 hr 02/17/19 02/17/19 02/17/19 13:25 13:45 13:45 WBC 7.0 RBC 4.00 L Hgb 9.7 L Hct 30.4 L MCV 76.0 L MCH 24.3 L MCHC 32.0 RDW 15.3 H Plt Count 98 L Neut % (Auto) 83.6 H Lymph % (Auto) 9.0 L [place] % (Auto) 6.3 Eos % (Auto) 0.4 L Baso % (Auto) 0.7 Neut # (Auto) 5900 Lymph # (Auto) 600 L [place] # (Auto) 400 Eos # (Auto) 0 Baso # (Auto) 0 PT 14.3 H INR 1.2 APTT 37 H Sodium Potassium Chloride Carbon Dioxide BUN Creatinine Estimated GFR BUN/Creatinine Ratio Glucose Lactate Calcium Total Bilirubin AST ALT Alkaline Phosphatase Total Creatine Kinase CK-MB (CK-2) CK-MB (CK-2) Rel Index Troponin I Total Protein Albumin Globulin Albumin/Globulin Ratio Lipase Procalcitonin Chlamy pneumoniae PCR Adenovirus (PCR) B.parapertussis DNA PCR Coronavirus OC43 (PCR) Coronavirus HKU1 (PCR) Coronavirus 229E (PCR) Coronavirus NL63 (PCR) Human Metapneumovir PCR Influenza Type A (PCR) Influenza Type B (PCR) Influenza A & B (PCR) Negative M. pneumoniae (PCR) Parainfluenza 1 (PCR) Parainfluenza 2 (PCR) Parainfluenza 3 (PCR) Parainfluenza 4 (PCR) RSV (PCR) Entero/Rhino (PCR) 02/17/19 02/17/19 02/17/19 13:45 13:45 13:45 WBC RBC Hgb Hct MCV MCH MCHC RDW Plt Count Neut % (Auto) Lymph % (Auto) [place] % (Auto) Eos % (Auto) Baso % (Auto) Neut # (Auto) Lymph # (Auto) [place] # (Auto) Eos # (Auto) Baso # (Auto) PT INR APTT Sodium 138 Potassium 3.7 Chloride 101 Carbon Dioxide 33 H BUN 5 L Creatinine 0.50 L Estimated GFR > 60.0 BUN/Creatinine Ratio 10.0 Glucose 90 Lactate 0.6 L Calcium 8.4 Total Bilirubin 0.6 AST 11 L ALT 9 L Alkaline Phosphatase 72 Total Creatine Kinase CK-MB (CK-2) CK-MB (CK-2) Rel Index Troponin I Total Protein 6.5 Albumin 3.4 L Globulin 3.1 Albumin/Globulin Ratio 1.1 Lipase < 10 L Procalcitonin < 0.05 Chlamy pneumoniae PCR Adenovirus (PCR) B.parapertussis DNA PCR Coronavirus OC43 (PCR) Coronavirus HKU1 (PCR) Coronavirus 229E (PCR) Coronavirus NL63 (PCR) Human Metapneumovir PCR Influenza Type A (PCR) Influenza Type B (PCR) Influenza A & B (PCR) M. pneumoniae (PCR) Parainfluenza 1 (PCR) Parainfluenza 2 (PCR) Parainfluenza 3 (PCR) Parainfluenza 4 (PCR) RSV (PCR) Entero/Rhino (PCR) 02/17/19 02/17/19 02/18/19 15:55 19:17 05:45 WBC 2.8 L D RBC 4.26 L Hgb 10.3 L Hct 32.4 L MCV 76.1 L MCH 24.3 L MCHC 31.9 RDW 15.2 H Plt Count 104 L Neut % (Auto) 77.6 H Lymph % (Auto) 20.6 L [place] % (Auto) 1.6 L Eos % (Auto) 0.0 L Baso % (Auto) 0.2 Neut # (Auto) 2200 Lymph # (Auto) 600 L [place] # (Auto) 0 Eos # (Auto) 0 Baso # (Auto) 0 PT INR APTT Sodium Potassium Chloride Carbon Dioxide BUN Creatinine Estimated GFR BUN/Creatinine Ratio Glucose Lactate Calcium Total Bilirubin AST ALT Alkaline Phosphatase Total Creatine Kinase 25 L CK-MB (CK-2) TNP CK-MB (CK-2) Rel Index TNP Troponin I < 0.012 Total Protein Albumin Globulin Albumin/Globulin Ratio Lipase Procalcitonin Chlamy pneumoniae PCR Not detected Adenovirus (PCR) Not detected B.parapertussis DNA PCR Not detected Coronavirus OC43 (PCR) Not detected Coronavirus HKU1 (PCR) Not detected Coronavirus 229E (PCR) Not detected Coronavirus NL63 (PCR) Not detected Human Metapneumovir PCR Not detected Influenza Type A (PCR) Not detected Influenza Type B (PCR) Not detected Influenza A & B (PCR) M. pneumoniae (PCR) Not detected Parainfluenza 1 (PCR) Not detected Parainfluenza 2 (PCR) Not detected Parainfluenza 3 (PCR) Not detected Parainfluenza 4 (PCR) Not detected RSV (PCR) Not detected Entero/Rhino (PCR) Not detected Assessment & Plan Assessment & Plan narrative: Babatunde Fitzgerald is a 38-year-old male with a past medical history significant for morbid obesity, chronic respiratory failure secondary to asthma on chronic prednisone, obesity hypoventilation syndrome and RAJESH; chronic pain with methadone dependence, and chronic decubitus pressure ulcerations of scrotum and posterior thighs who presented for worsening shortness of breath and wheezing. 1. Acute asthma exacerbation, present on admission. Resolving. -Presented with worsening shortness of breath and wheezing. -Chest x-ray demonstrated chronic low inspiratory volumes with bibasilar atelectasis. No new infiltrate or pneumonia. Possible early pulmonary edema. -Respiratory viral PCR negative. -Blood culture x 2 have no growth to date. -Discontinued IV steroids and will start a quick prednisone taper back to patients 5 mg twice daily over the next several days (40mg QD to 30 mg QD to 20mg QD to 5 mg BID). -Continue respiratory therapy evaluation treatment. Continue albuterol neb every 4 hours while awake. -Reinstituted loratadine for antihistamine effect and montelukast for mast cell stablizing effect for seasonal allergy component of asthma. 2. Acute on chronic hypoxemic respiratory failure on chronic oxygen, present on admission. Acute portion resolved. -Continue supplemental oxygen as needed and titrate off as tolerated. Oxygen saturation goal 88-92%. Patient is on baseline oxygen requirements 1-2 L as needed during the day and continuous at night. -Patient reports his oxygen machine at home is not functioning appropriately and informed respiratory therapy who will have [facility] re-evaluate it when patient returns home tomorrow. -Ordered furosemide 40 mg x1 for possible mild pulmonary edema and to optimize breathing. 3. Pulmonary hypertension and right sided CHF, chronic and secondary to morbid obesity, OHS, RAJESH, and asthma, present on admission. Stable. -Most recent echocardiogram demonstrated right ventricle is moderate to severely dilated with moderately reduced right ventricular systolic function with severe biatrial enlargement. -BNP < 100. -Continue supplemental oxygen as needed and titrate off as tolerated. Oxygen saturation goal 88-92%. -Ordered furosemide 40 mg x1 for possible mild pulmonary edema and to optimize breathing. 4. Chronic stage II decubitus ulcers of posterior thighs, scrotum and buttocks, present on admission. Stable. -Wounds have significantly improved and are healing well to the extent that they are close to resolved. Do not appear infected. -Continue frequent turns and repositioning. -Consulted wound care but likely will not be obtained as they are not here on the weekends. 5. Anemia of chronic disease, chronic, present on admission. Stable. -Initial hemoglobin 9.7 and hematocrit 30.4 and stable. No overt signs of bleeding. -Held Iron and vitamin-C supplementation due to acute inflammation. May continue at time of discharge. 6. Chronic opiate dependence on methadone, present on admission. Stable. -Continue methadone at 60 mg daily. Discussed methadone dose with PCP Dr. Hernández and have decided to keep him at 60 mg daily as he was titrated down to this dose previously during last hospitalization and has been stable on this dose. In the future may want to consider continuing to titrate down to lowest possible dose to control pain. Patient has lost significant amount of weight with his BMI decreasing from 90 to 68 presumably due to titration down on methadone, olanzapine, and prednisone and implementing dietary education each time he is hospitalized. 7. Morbid obesity, chronic, present on admission. Stable. -BMI 68.8 on admission. -Continue 1200 calorie diet restriction. Limit snacks to 2 per day and follow a heart healthy diet. NO CHIPS, JUICE, POPSICLES, ICE CREAM. -Mobilize out of bed as much as he can tolerate. Continue physical therapy and occupational therapy as much as possible. -Patient will continue to benefit from slow taper down on methadone to lowest possible dose to treat pain. 8. Depression and anxiety, chronic, present on admission. Stable. -Continue Olanzapine 10 mg daily. Discussed a lancet pain dose with PCP who reports was recently lowered to 10 mg daily. -Continue to follow up with outpatient [facility] neuropsychiatrist. 9. 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 Stable. -Patient is on methadone, olanzapine, and duloxetine. -Avoid other QTc prolonging agents such as Zofran, etc. if possible. 10. Marijuana dependence, chronic, present on admission. Stable. -Discussed marijuana and of the risks associated with use including lung cancer and various other cancers, cardiovascular disease, increased risk of NE in the 1st 1 hour of use, etc. -Recommended cessation indefinitely. 11. Medication noncompliance, chronic, present on admission. Active. -The patient will report inaccurate doses of medications to nursing staff during med reconciliation. Often the patient will have been titrated down on a medication and will not report this. Specific examples include methadone, olanzapine, and prednisone. -Discussed with patient the need to accurately poor medications as there are significant risks involved with continuing medications at higher doses than prescribed. Disposition: Likely to discharge home with home health tomorrow now that he has been transitioned to PO steroid with a quick steroid taper to complete asthma exacerbation.
[2019-02-18] MEDS: FUROSEMIDE 40 MG TABLET PO (13:41)
--- NOTE | 2019-02-18 14:11 | CM.DANOTE ---
DCP/Assessment: Reviewed chart. Patient is a 38yr old male admitted to [facility] with respiratory distress. Primary payor is 1)[place] 2)Medicaid. PCP listed is Dr. Hernández at [facility]. Spoke with Dr. Henry in AM rounds. She anticipates that patient will be medically stable either later today or first thing tomorrow 02-19-19. Current d/c plan is for patient to return home. Patient active at [facility] for Methadone maintenance. Therapy evaluation ordered and pending. Per RN, patient can ambulate but often chooses not to. Patient alert, oriented and pleasant during visit but clearly does not want to d/c today. Currently on in room. Patient well known to DIRECTOR COMPENSATION team. Prior discharges have included both home and SNF. DIRECTOR COMPENSATION met with patient explained role. Patient reports that he plans to d/c home but reports that I can't leave today. Per patient he missed his methadone dose this AM so will not be able to get dose until Wednesday02-20-19. Patient suggests DIRECTOR COMPENSATION call [facility] to confirm. DIRECTOR COMPENSATION placed call [facility] spoke with Stephanie. She confirms that clinic closed at 10:00AM. Patient unable to get next Methadone dose on Wednesday. Medication list sent to [facility] for review from [facility] per DIRECTOR COMPENSATION request. Stephanie reports current dose of methadone as 75mg. Dr. Henry reports that she is giving him 60mg. Dr. Henry and Dr. Hernández discussed case today via telephone. It was agreed that patient's methadone dose would be at 60mg per day during hospitalization. Patient reports that he most likely will need assistance with transport tomorrow 02-19-19. Patient in agreement to first try family. If unable to get ride then team to assist patient with arranging Medicaid transport through [employer]. In addition, requested patient sign consent to release information to [facility] after discharged. RN has provided consent, unclear if he will sign? If so RN instructed to return to CM office. Dr. Henry inquiring about A.P.S. referral? DIRECTOR COMPENSATION will refer back to medical team if they feel this appropriate prior to d/c. At this time patient active with outpatient Methadone Maintenance Program and no immediate concern identified. Patient continues to make poor life choices but appears to be an active participant in treatment at [facility]. P: Home tomorrow if medically stable. DIRECTOR COMPENSATION to follow closely for transportation need. JOSÉ LUIS Noriega Discharge Planning/Care Management CM Discharge Assessment Start: 02/18/19 14:04 Freq: Status: Active Protocol: Document 02/18/19 14:04 SUSAN (Rec: 02/18/19 14:11 KJS [id number]) Discharge Planning Assessment Assigned Bolt Machine Operator JOSÉ LUIS Noriega Contact Information Lianna Fitzgerald (Mother) [phone] Advance Directives? No Advance Directives on File No History Provided By Patient Medical Record Prior Living Arrangements House Household Members significant other Type of transporation used prior to Medicaid Transport admit Independent with ADL's Yes: Currently yes goes to/ from methadone clinic daily. Is patient alert and oriented? Yes Needs Assistance With Managing Medications Comment [facility] for Methadone maintenance # [phone]. Confirmed dose from Stephanie is 75mg per day. Dr. Henry and Dr. Hernández discussed and dose changed to 60mg per day. Caregiver for Another No DME Already Rented / Owned FWW / Walker Barriers to Discharge No Comment Patient known to DIRECTOR COMPENSATION team. Frequent admits to [facility] with similiar complaints. Current admit related to respiratory distress. Patient brought in by EMT. Discharge Plan Home Transportation Arrangement Patient will attempt to obtain transport if d/c'd on 02-19-19, which is expected. If unable to obtain can use [employer] under Medicaid on weekend and after hours. Referrals Initiated Other Whiteboard Updated in Patient Room with Yes name and ext. # of Bolt Machine Operator Review Status In Process Next Review Type Continued Stay Review
[2019-02-19] VITALS (9 sets, daily range): BP systolic 108–137; BP diastolic 53–72; PULSE 61–82; RESP 16–20; TEMP 36.3–36.6; O2SAT 91–96
[2019-02-19] MEDS: ALBUTEROL 2.5 MG/3 ML NEB (ADULT) INH ×4 (01:48→10:48)
--- NOTE | 2019-02-19 01:50 | PC.NURSE ---
Addendum entered by Cheryl Phipps R.N. 02/19/19 06:41: O2 decreased to 1L/min this morning and sat at 91%. No complaints during night; only asking several times when he gets his next Gabapentin. Slept most of shift. Original Note: Patient has been sleeping since shift change. Now awakened and unhappy with being work for vitals/assessment so would not answer most questions. Breath sounds coarse with expiratory wheeze/rhonchi. On oxygen at 1.5L/min with sat of 91%. HRR. BT hypoactive. Did void in urinal and specimen sent to lab for rapid drug screen per MD order. Refusing to reposition in bed. Chronic, healing, pressure ulcers on posterior thighs and lower buttocks. Small abrasion right anterior lower leg. Requested nebulizer treatment; RT contacted and here at this time. Fall risk score is moderate; bed alarm is activated.
[2019-02-19 01:57] LABS: Urine Amphetamines Negative (Negative); Urine Barbiturates Negative (Negative); Urine Benzodiazepines Negative (Negative); Urine Cocaine Negative (Negative); Urine MDMA Negative (Negative); Urine Methadone Positive (Negative); Urine Methamphetamines Negative (Negative); Urine Morphine/Opi cutoff 2000 Negative (Negative); Urine Oxycodone Negative (Negative); Urine Phencyclidine Negative (Negative); Urine Tetrahydrocannabinol Positive (Negative); Urine Tricyclic Antidepressant Negative (Negative)
[2019-02-19] MEDS: SODIUM CHLORIDE 0.9% FLUSH 10 ML IV ×2 (05:33→12:12)
[2019-02-19 05:52] LABS: Add Manual Diff / Slide Review NO; Basophils Absolute Auto 0 /uL (0-100); Basophils Percent Auto 0.5 % (0-2); Eosinophils Absolute Auto 0 /uL (0-450); Eosinophils Percent Auto 0.1 % (2-4); Hematocrit 29.6 % (41-53); Hemoglobin 9.3 g/dL (13.5-17.5); Lymphocytes Absolute Auto 1300 /uL (1100-4500); Lymphocytes Percent Auto 18.3 % (25-40); Mean Corpuscular HGB Conc 31.5 % (30-36); Mean Corpuscular Hemoglobin 24.1 PG (26-34); Mean Corpuscular Volume 76.6 fL (80-100); Monocytes Absolute Auto 600 /uL (0-900); Monocytes Percent Auto 8.9 % (3-14); Neutrophils Absolute Auto 5100 /uL (1500-7000); Neutrophils Percent Auto 72.2 % (50-75); Platelet Count 69 X10^3/uL (150-400); Red Blood Cell Count 3.87 X10^6/uL (4.5-5.9); Red Cell Distribution Width 15.2 % (11.6-14.8)
[2019-02-19 05:58] LABS: Blood Urea Nitrogen 12 mg/dL (9-20); Calcium 8.6 mg/dL (8.4-10.2); Carbon Dioxide 34 mmol/L (22-32); Chloride 101 mmol/L (98-107); Estimated Glomerular Filt Rate > 60.0 mL/min (>60); Glucose 96 mg/dL (70-100); HEMOLYSIS < 15 (0-50); Magnesium 2.2 mg/dL (1.6-2.3); Potassium 4.1 mmol/L (3.4-5.1); Sodium 139 mmol/L (137-145)
--- NOTE | 2019-02-19 07:42 | PM.DS.1 ---
History of Present Illness Date Patient Seen: 02/17/19 Chief complaint: Fever/generalized weakness Narrative: Written by Dr. Mhuammad: This is a 38-year-old male well known at this hospital due to chronic illness who presented today to the emergency department describing fairly rapid onset this morning of increasing shortness of breath, mild cough, temperature of 99.9?. He also describes mild substernal central chest pain. His initial workup including chest x-ray, EKG and troponin is negative for pneumonia and acute coronary syndrome. He is wheezing heavily and so is admitted for treatment of acute bronchospasm/asthma. He was hypoxic at 88% on room air on arrival. After treatment with nebulized albuterol and IV Solu-Medrol his saturation came up into the high 90s but when off oxygen it dropped back to 84%. His long-term pressure ulcer problem on the back of his thighs and buttocks has improved. He tells me that after his last hospital stay here a few months ago, he spent about 4 weeks at [facility] [place] before discharging home where he lives with his ex-girlfriend. It sounds like he pretty much stays to himself at home. He continues his medical care at the [facility]. No recent respiratory illness exposures. He was just here for several days a month ago with a similar presentation. No GI symptoms. Discharge Providers Date of admission: 02/17/19 17:10 Discharge Date: 02/19/19 Primary care physician: Rama Hernández MD Consults: 02/17/19 12:28 Consult to Respiratory Therapy Evaluate & Treat Comment: Physician Instructions: Evaluate and treat 02/17/19 17:25 Consult to Dietitian, Adult Routine Comment: Reason For Exam: Obesity 02/17/19 17:30 Consult to Wound Care Routine Comment: Consulting Provider: Fernando- Wound Care 02/18/19 10:09 Consult to Physical Therapy Evaluate & Treat Comment: Physician Instructions: Evaluate and Treat 02/18/19 13:48 Consult to Occupational Therapy Evaluate & Treat Comment: Physician Instructions: Evaluate and treat Discharge provider: Paige Henry DO Summary Discharge Diagnosis: 1. Acute asthma exacerbation, present on admission. Resolved. 2. Acute on chronic hypoxemic respiratory failure on chronic oxygen, present on admission. Acute portion resolved. 3. Pulmonary hypertension and right sided CHF, chronic and secondary to morbid obesity, OHS, RAJESH, and asthma, present on admission. Stable. 4. Chronic stage II decubitus ulcers of posterior thighs, scrotum and buttocks, present on admission. Stable. 5. Anemia of chronic disease, chronic, present on admission. Stable. 6. Chronic opiate dependence on methadone, present on admission. Stable. 7. Morbid obesity, chronic, present on admission. Stable. 8. Depression and anxiety, chronic, present on admission. Stable. 9. 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 Stable. 10. Marijuana dependence, chronic, present on admission. Stable. 11. Medication noncompliance, chronic, present on admission. Active. Hospital Course: Babatunde Fitzgerald is a 38-year-old male with a past medical history significant for morbid obesity, chronic respiratory failure secondary to asthma on chronic prednisone, obesity hypoventilation syndrome and RAJESH; chronic pain with methadone dependence, and chronic decubitus pressure ulcerations of scrotum and posterior thighs who presented for worsening shortness of breath and wheezing. 1. Acute asthma exacerbation, present on admission. Resolved. -Presented with worsening shortness of breath and wheezing. -Chest x-ray demonstrated chronic low inspiratory volumes with bibasilar atelectasis. No new infiltrate or pneumonia. Possible early pulmonary edema. -Respiratory viral PCR negative. -Blood culture x 2 have no growth to date. -Discontinued IV steroids and will start a quick prednisone taper back to patients 5 mg twice daily over the next several days (40mg QD to 30 mg QD to 20mg QD to 5 mg BID). -Continued respiratory therapy evaluation and treatment. Continue albuterol neb every 4 hours while awake. -Reinstituted loratadine for antihistamine effect for seasonal allergy component of asthma. 2. Acute on chronic hypoxemic respiratory failure on chronic oxygen, present on admission. Acute portion resolved. -Continued supplemental oxygen as needed and titrate off as tolerated. Oxygen saturation goal 88-92%. Patient is on baseline oxygen requirements 1-2 L as needed during the day and continuous at night. -Patient reports his oxygen machine at home is not functioning appropriately and informed respiratory therapy who will have [facility] re-evaluate it when patient returns home today. -Received furosemide 40 mg x1 for possible mild pulmonary edema and to optimize breathing. 3. Pulmonary hypertension and right sided CHF, chronic and secondary to morbid obesity, OHS, RAJESH, and asthma, present on admission. Stable. -Most recent echocardiogram demonstrated right ventricle is moderate to severely dilated with moderately reduced right ventricular systolic function with severe biatrial enlargement. -BNP < 100. -Continued supplemental oxygen as needed and titrate off as tolerated. Oxygen saturation goal 88-92%. -Received furosemide 40 mg x1 for possible mild pulmonary edema and to optimize breathing. 4. Chronic stage II decubitus ulcers of posterior thighs, scrotum and buttocks, present on admission. Stable. -Wounds have significantly improved and are healing well to the extent that they are close to resolved. Do not appear infected. -Continued frequent turns and repositioning. -Consulted wound care but not obtained as they are not staffed on the weekends. 5. Anemia of chronic disease, chronic, present on admission. Stable. -Initial hemoglobin 9.7 and hematocrit 30.4 and stable. No overt signs of bleeding. -Held Iron and vitamin-C supplementation due to acute inflammation and instructed patient to restart at discharge. 6. Chronic opiate dependence on methadone, present on admission. Stable. -Continued methadone at 60 mg daily. Discussed methadone dose with PCP Dr. Hernández and have decided to keep him at 60 mg daily as he was titrated down to this dose previously during last hospitalization and has been stable on this dose. In the future may want to consider continuing to titrate down to lowest possible dose to control pain. Patient has lost significant amount of weight with his BMI decreasing from 90 to 68 presumably due to titration down on methadone, olanzapine, and prednisone and implementing dietary education each time he is hospitalized. 7. Morbid obesity, chronic, present on admission. Stable. -BMI 68.8 on admission. -Continued 1200 calorie diet restriction. Limit snacks to 2 per day and follow a heart healthy diet. NO CHIPS, JUICE, POPSICLES, ICE CREAM. -Mobilized out of bed as much as he can tolerate. Continued physical therapy and occupational therapy as much as possible. -Patient will continue to benefit from slow taper down on methadone to lowest possible dose to treat pain. 8. Depression and anxiety, chronic, present on admission. Stable. -Continued Olanzapine 10 mg daily. Discussed olanzapine dose with PCP who reports was recently lowered to 10 mg daily. -Continue to follow up with outpatient [facility] neuropsychiatrist. 9. 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 Stable. -Patient is on methadone, olanzapine, and duloxetine. -Avoided other QTc prolonging agents such as Zofran, etc. if possible. 10. Marijuana dependence, chronic, present on admission. Stable. -Discussed marijuana and of the risks associated with use including lung cancer and various other cancers, cardiovascular disease, increased risk of GA in the 1st 1 hour of use, etc. -Recommended cessation indefinitely. 11. Medication noncompliance, chronic, present on admission. Active. -The patient will report inaccurate doses of medications to nursing staff during med reconciliation. Often the patient will have been titrated down on a medication and will not report this. Specific examples include methadone, olanzapine, and prednisone. -Discussed with patient the need to accurately report medications as there are significant risks involved with continuing medications at higher doses than prescribed. Status at Discharge Overall status at discharge: patient is back to baseline Exam Vital Signs (past 8 hours): - 02/19/19 01:40 02/19/19 01:48 02/19/19 05:55 Temperature 97.5 F L Pulse Rate 76 69 Respiratory Rate 20 20 Blood Pressure 112/53 L Pulse Oximetry 92 92 91 02/19/19 05:58 02/19/19 06:59 Temperature 97.3 F L Pulse Rate 71 61 Respiratory Rate 16 20 Blood Pressure 137/72 Pulse Oximetry 91 92 Fraction of Inspired Oxygen 26 Oxygen Delivery Method Nasal Cannula Oxygen Flow Rate 1.5 Narrative Exam Narrative: General: Young morbidly obese gentleman lying in bed and in no acute distress, well-developed, well-nourished, mild somnolence but arouses easily. HEENT: Normocephalic, atraumatic. External ears without defect. Pupils equal, round, and reactive to light. Anicteric sclerae, moist conjunctivae, and no lid lag. Several excoriations on face and dry skin. Neck: Supple with full range of motion. No lymphadenopathy or thyromegaly. Cardiovascular: Heart sounds distant but appear regular rate and rhythm without murmurs, rubs, or gallops appreciated. Pulmonary: Diminished throughout but clear to auscultation bilaterally with occasional scattered wheeze. Normal respiratory effort with no use of accessory muscles. Abdomen: Soft, obese, bowel sounds present, nontender, nondistended. No hepatosplenomegaly or masses appreciated. Extremities: No clubbing or cyanosis. Brawny edema to knees bilaterally. Skin: Normal temperature, turgor, and texture; several previous stage II decubitus pressure ulcerations of posterior thighs and scrotum in various stages of healing but have significantly improved and resolving. Neurological: Cranial nerves grossly intact. Psychiatric: Depressed mood and flat affect. Mild somnolence but easily arousable. Poor insight into disease process. 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 Objective Labs Result Diagrams: 02/19/19 05:33 02/19/19 05:33 Labs: Laboratory Results - last 24 hr 02/19/19 02/19/19 02/19/19 01:45 05:33 05:33 WBC 7.0 D RBC 3.87 L Hgb 9.3 L Hct 29.6 L MCV 76.6 L MCH 24.1 L MCHC 31.5 RDW 15.2 H Plt Count 69 L Neut % (Auto) 72.2 Lymph % (Auto) 18.3 L [place] % (Auto) 8.9 Eos % (Auto) 0.1 L Baso % (Auto) 0.5 Neut # (Auto) 5100 Lymph # (Auto) 1300 [place] # (Auto) 600 Eos # (Auto) 0 Baso # (Auto) 0 Sodium 139 Potassium 4.1 Chloride 101 Carbon Dioxide 34 H BUN 12 Creatinine 0.60 L Estimated GFR > 60.0 BUN/Creatinine Ratio 20.0 Glucose 96 Calcium 8.6 Magnesium 2.2 Urine Opiates Screen Negative Ur Oxycodone Screen Negative Urine Methadone Screen Positive H Ur Barbiturates Screen Negative U Tricyclic Antidepress Negative Ur Phencyclidine Scrn Negative Ur Amphetamines Screen Negative U Methamphetamines Scrn Negative Ur MDMA Scrn (Ecstasy) Negative U Benzodiazepines Scrn Negative Urine Cocaine Screen Negative U Marijuana (THC) Screen Positive H Discharge Plan Discharge Plan Patient Disposition: Home Health Service Discharge comment: You're being discharged home with home health PT/OT/nursing. Please follow-up with your PCP, Dr. Hernández, in the next 1 week regarding your hospitalization and to go over your medication regimen. You have been prescribed prednisone for your asthma. You will take 20 mg tomorrow on 02/20/2019 and from then on 5 mg twice daily until you follow up with Dr. Hernández. Discharge Med Rec/Prescriptions Prescriptions: New loratadine 10 mg Tablet 10 mg PO DAILY Qty: 30 RF: 0 prednisone 5 mg tablet 5 mg PO DAILY Qty: 32 RF: 0 ferrous sulfate 325 mg (65 mg iron) tablet,delayed release (DR/EC) 325 mg PO DAILY Qty: 30 RF: 0 ascorbic acid (vitamin C) [Vitamin C] 500 mg tablet extended release 500 mg PO DAILY Qty: 30 RF: 0 Continued acetaminophen 325 mg Tablet 650 mg PO Q6HR PRN (Reason: Pain, Mild) Qty: 30 RF: 0 diphenhydramine HCl [Allergy (diphenhydramine)] 25 mg Tablet 25 mg PO Q6HR PRN (Reason: Itching) Qty: 30 RF: 0 nystatin [Nystop] 100,000 unit/gram Powder 1 applic topical TID PRN (Reason: abd folds/excoriation) Qty: 1 RF: 0 albuterol sulfate 2.5 mg /3 mL (0.083 %) solution for nebulization 3 ml Inhalation QID PRN (Reason: Shortness Of Breath) RF: 0 albuterol sulfate 90 mcg/actuation HFA aerosol inhaler 2 - 4 puff Inhalation Q4-6H PRN (Reason: Shortness Of Breath) RF: 0 gabapentin [Neurontin] 300 mg Capsule 300 mg PO TID Qty: 180 RF: 0 methadone 10 mg tablet 60 mg PO DAILY Qty: 1 RF: 0 olanzapine 10 mg tablet 10 mg PO DAILY RF: 0 Follow up/Referrals: Rama Hernández MD [Primary Care Provider] - 1 Week Provider Discharge Instructions Diet: Low-fat, Low-sodium and Low-cholesterol Activity: Activity as tolerated and as much as possible Visit Report/Discharge Packet Instructions: Asthma -- Adult, DI for Asthma -- Adult Discharge Data Primary Care Provider: Rama Hernández Attending Provider: Alyssa Muhammad Admit Date/Time: 02/17/19 17:10
[2019-02-19] MEDS: ENOXAPARIN 40 MG/0.4 ML SYRINGE SUBCUT (09:13)
[2019-02-19] MEDS: GABAPENTIN 300 MG CAPSULE PO (09:13)
[2019-02-19] MEDS: LORATADINE 10 MG TABLET PO (09:14)
[2019-02-19] MEDS: OLANZapine ODT 10 MG TAB PO (09:14)
[2019-02-19] MEDS: predniSONE 10 MG TABLET 30 MG PO (09:15)
[2019-02-19] MEDS: METHADONE 10 MG TABLET 60 MG PO (09:19)
--- NOTE | 2019-02-19 11:18 | PC.NURSE ---
Addendum entered by Verona Liu R.N. 02/19/19 14:36: Removed PICC line and Pt down to cab for d/c home with no HH, as they have refused Pt. Pt has prednisone at home and will use dosing as appropriate per dc orders Original Note: Am shift Pt has been very demanding since start of shift, yelling at staff when informed of delay on AM meds while Methadone was restocked, and meal tray was not picked up by staff with in 3 minutes of dropping off tray. Set very clear guidelines for patient, regarding hourly rounding. This RN witness Pt put pottery decoration designer light less than 10 seconds after LOCK SETTER left room, asking about medication, which Pt had been updated on as RN was in room within 2 minutes with LOCK SETTER. Pt needs clear guidelines and clear boundaries set with staff. Plan to d/c via cabulance
--- NOTE | 2019-02-19 11:35 | CM.DPNOTE ---
DC Note: DC order in place, pt aware and agreeable today to DC back home, no home health. Reviewed transportation options w/pt this morning, he says there is no one in his family available to pick him up today. Pt wants a cab ride home. Reviewed transportation options w/ PT Ronnell and KAILYN Rhoades, all agree pt able to ambulate safely in/out of cab today. Placed call to [employer] P# [phone], requested p/u and provided pt's Provider One number/ Medicaid #. P/u scheduled for 1500, no ppk needed upon p/u. Updated pt, KAILYN Rhoades, and Dr Henry re: plan above. Pt does not need to stop on his way home for any prescriptions. He will f/u at [facility] Wednesday for Methadone administration and med reconciliation by Dr Hernández. Pt has signed consent form for release of information from to [facility] upon DC and up until 02.27.19. P: DC home via cab, close outpt f/u at [facility]. JOSÉ LUIS Palmer
--- NOTE | 2019-02-20 16:02 | CM.DPC ---
DCP/continued: Faxed requested d/c summary/instructions to [facility] per Dr. Henry's request. Consent signed by patient on 02-19-19. JOSÉ LUIS Noriega
== END 2019-02-19 14:41 | disposition home or self-care (01) | DRG 202 ==
LOC: ED 17:10 → AC 02-18 09:02
PROVIDERS: Emergency Medicine; Internal Medicine; Admitting Provider Family Medicine; Emergency Provider Nurse Practitioner; Family Provider Family Medicine; PCP Family Medicine; Visit Provider Family Medicine
DX: J45.51 Severe persistent asthma with (acute) exacerbation (principal); J96.21 Acute and chronic respiratory failure with hypoxia; Z68.44 Body mass index [BMI] 60.0-69.9, adult; E66.2 Morbid (severe) obesity with alveolar hypoventilation; F11.20 Opioid dependence, uncomplicated; L89.322 Pressure ulcer of left buttock, stage 2; L89.312 Pressure ulcer of right buttock, stage 2; L89.892 Pressure ulcer of other site, stage 2; Z99.81 Dependence on supplemental oxygen; I27.20 Pulmonary hypertension, unspecified; F41.9 Anxiety disorder, unspecified; D63.8 Anemia in other chronic diseases classified elsewhere; F12.20 Cannabis dependence, uncomplicated; Z91.14 Patient's other noncompliance with medication regimen; F32.9 Major depressive disorder, single episode, unspecified; I45.81 Long QT syndrome
CPT/HCPCS: 36415; 36569; 36592; 71045; 80048; 80053; 80305; 81003; 82550; 82962; 83605; 83690; 83735; 84145; 84484; 85025; 85610; 85730; 87040; 87400; 87633; 93005; 94618; 94640; 94760; 94762; 96361; 96374; 96375; 97162; 99284; 99285; J1650; J2405; J2930; J7613

== ENCOUNTER 2019-02-22 13:51 | Emergency (ER) | payer OTHER, MEDICAID, SELFPAY ==
[2019-02-17 18:40] VITALS: BMI 68.8
[2019-02-22 13:53] VITALS: BP 136/54; PULSE 85; RESP 12; TEMP 36.8; O2SAT 97
[2019-02-22 14:00] VITALS: BP 127/59; PULSE 104; RESP 95
--- NOTE | 2019-02-22 14:00 | DI.RAD.S_ITS ---
PROCEDURE: XR CHEST 1V INDICATIONS: chest pain TECHNIQUE: One view of the chest was acquired. COMPARISON: [facility], CR, XR CHEST 1V, 02/18/2019, 5:45. FINDINGS: Surgical changes and devices: None. Lungs and pleura: There is pulmonary vascular congestion. No definite focal infiltrate. No pleural effusions or pneumothorax. Mediastinum: Mediastinal contours appear normal. Heart size is normal. Bones and chest wall: No suspicious bony lesions. Overlying soft tissues appear unremarkable. IMPRESSION: Congestive changes. No definite focal infiltrate. Dictated by: Emiliano Whitaker M.D. on 02/22/2019 at 14:40 Approved by: Emiliano Whitaker M.D. on 02/22/2019 at 14:41
--- NOTE | 2019-02-22 14:03 | ED.CHESTPAIN ---
HPI - Chest Pain <Ana Dominguez PA-C - Last Filed: 02/22/19 20:03> General Chief Complaint: Chest Pain Stated Complaint: Chest Pain Time Seen by Provider: 02/22/19 14:03 Source: patient Mode of arrival: EMS Limitations: no limitations History of Present Illness HPI narrative: This 38-year-old male is brought to ED secondary to recurrent anxiety attack with chest discomfort and palpitations. He states this has been worsening for some time. He does not think this is an acutely changed issue today, but states his anti anxiety medication is not working for him for anxiety attacks. He states initially that he missed his clinic appointment today and did not get his Zyprexa, later states that he did get it but not helping. He states that this is the same chest discomfort, palpitations, shaky feeling that he has had in the setting of anxiety in the past and states that he does not feel like symptoms would be present if not for anxiety. He states that his breathing is ?good? today, denies any shortness of breath or asthma symptoms. He states he has been eating and drinking normally today. He denies any new pain or swelling in his legs. He denies other complaints on systems review, wondering if he can have medicine to ?help me calm down? Related Data Home Medications Medication Instructions Recorded Confirmed albuterol sulfate 2 - 4 puff INHALATION Q4-6H PRN 01/12/19 02/17/19 albuterol sulfate 3 ml INHALATION QID PRN 01/12/19 02/17/19 olanzapine 10 mg PO DAILY 02/17/19 02/17/19 Previous Rx's Medication Instructions Recorded acetaminophen 650 mg PO Q6HR PRN #30 tab 11/26/18 diphenhydramine HCl [Allergy 25 mg PO Q6HR PRN #30 tab 11/26/18 (diphenhydramine)] nystatin [Nystop] 1 applic TOPICAL TID PRN #1 pkg 11/26/18 gabapentin [Neurontin] 300 mg PO TID #180 cap 01/15/19 methadone 60 mg PO DAILY #1 tab 01/15/19 ascorbic acid (vitamin C) [Vitamin 500 mg PO DAILY #30 tab 02/19/19 C] ferrous sulfate 325 mg PO DAILY #30 tab 02/19/19 loratadine 10 mg PO DAILY #30 tab 02/19/19 prednisone 5 mg PO DAILY #32 tab 02/19/19 Allergies Allergy/AdvReac Type Severity Reaction Status Date / Time NSAIDS (Non-Steroidal Allergy Unknown ASTHMA Verified 02/22/19 13:58 Anti-Inflamma FLARE UPS [NSAIDS (NON-STEROIDAL ANTI-INFLAMMA] ibuprofen AdvReac Mild nausea, GI Verified 02/22/19 13:58 upset Review of Systems <Ana Dominguez PA-C - Last Filed: 02/22/19 20:03> Review of Systems ROS Unobtainable: All systems reviewed & are unremarkable except as noted in HPI and below PFSH <Ana Dominguez PA-C - Last Filed: 02/22/19 20:03> Medical History Anxiety (Chronic) Asthma (Chronic) Chronic skin ulcer (Chronic) Methadone use disorder, mild, in controlled environment (Chronic) Morbid obesity (Chronic) Pulmonary hypertension (Chronic) Surgical History H/O vertebral fracture repair (Chronic) History of hip surgery (Chronic) Family History Mother Diabetes mellitus Father No problems noted. Social History household members: significant other Smoking Status: Never smoker Social History household members: significant other Smoking Status: Never smoker Exam <Ana Dominguez PA-C - Last Filed: 02/22/19 20:03> Narrative Exam Narrative: GENERAL APPEARANCE: Patient sitting comfortably, in no distress. NECK/THYROID: Neck supple, no JVD. LUNGS: Mild generalized wheeze, good air entry, speaks easily in complete sentences. HEART: Regular rate and rhythm without murmur, normal S1, S2, no S3 or S4. ABDOMEN: Soft, obese, NT, ND, + BS x 4 quadrants EXTREMITIES: Moderate symmetric edema, no calf tenderness NEUROLOGIC: Alert with normal speech and coordination. Initial Vital Signs Initial Vital Signs: Vital Signs Temperature 98.3 F 02/22/19 13:53 Pulse Rate 85 02/22/19 13:53 Respiratory Rate 12 02/22/19 13:53 Blood Pressure 136/54 L 02/22/19 13:53 Pulse Oximetry 97 02/22/19 13:53 <Maame Haynes MD - Last Filed: 02/22/19 20:10> Initial Vital Signs Initial Vital Signs: Vital Signs Temperature 98.3 F 02/22/19 13:53 Pulse Rate 85 02/22/19 13:53 Respiratory Rate 12 02/22/19 13:53 Blood Pressure 136/54 L 02/22/19 13:53 Pulse Oximetry 97 02/22/19 13:53 Course <Ana Dominguez PA-C - Last Filed: 02/22/19 20:03> Additional Information: Patient does not appear to have any acutely changed symptoms today. He reports symptoms typical of his anxiety attacks. He was seen at the clinic this morning and given his usual dose of Zyprexa. His main primary care provider is out of office today but I did speak with Arlen, nurse practitioner there who knows patient as well. We discussed his frequent ED visits. He was actually just discharged due to asthma exacerbation, but reports no symptoms today. He was given a nebulizer treatment for wheeze noted on exam with improvement on recheck. His oxygen saturations have remained normal. After discussion with PCP, we did decide to give a dose of hydroxyzine here as it is possible steroid taper he is on may exacerbate his anxiety a bit. He continues to focus on immediate relief of his symptoms, and I explained multiple times that this long-term problem needs to be addressed with his primary care clinic, and they need to discuss a home treatment plan for him for panic attacks. He agrees to follow up there tomorrow and has previously planned. Orders Ordered: ED Orders 02/22/19 13:35 Complete Blood Count AUTO DIFF Stat Prothrombin Time INR Stat 02/22/19 13:57 EKG-12 Lead Stat 02/22/19 14:00 XR chest 1V Stat Discontinued Medications Albuterol/Ipratropium (Duoneb) 3 ml INH NOW ONE Stop: 02/22/19 14:10 Last Admin: 02/22/19 14:19 Dose: 3 ml Hydroxyzine Pamoate (Vistaril) 25 mg PO NOW ONE Stop: 02/22/19 14:31 Last Admin: 02/22/19 14:37 Dose: 25 mg Vital Signs - 8 hr 02/22/19 13:53 02/22/19 14:00 02/22/19 14:19 Temperature 98.3 F Pulse Rate 85 104 H 92 H Respiratory Rate 12 95 H 18 Blood Pressure 136/54 L Blood Pressure [Left Wrist] 127/59 L Pulse Oximetry 97 99 02/22/19 14:46 02/22/19 15:00 Temperature Pulse Rate 84 92 H Respiratory Rate 10 L 17 Blood Pressure Blood Pressure [Left Wrist] 127/71 143/124 H Pulse Oximetry 92 98 <Maame Haynes MD - Last Filed: 02/22/19 20:10> Orders Ordered: ED Orders 02/22/19 13:35 Complete Blood Count AUTO DIFF Stat Prothrombin Time INR Stat 02/22/19 13:57 EKG-12 Lead Stat 02/22/19 14:00 XR chest 1V Stat Discontinued Medications Albuterol/Ipratropium (Duoneb) 3 ml INH NOW ONE Stop: 02/22/19 14:10 Last Admin: 02/22/19 14:19 Dose: 3 ml Hydroxyzine Pamoate (Vistaril) 25 mg PO NOW ONE Stop: 02/22/19 14:31 Last Admin: 02/22/19 14:37 Dose: 25 mg Vital Signs - 8 hr 02/22/19 13:53 02/22/19 14:00 02/22/19 14:19 Temperature 98.3 F Pulse Rate 85 104 H 92 H Respiratory Rate 12 95 H 18 Blood Pressure 136/54 L Blood Pressure [Left Wrist] 127/59 L Pulse Oximetry 97 99 02/22/19 14:46 02/22/19 15:00 Temperature Pulse Rate 84 92 H Respiratory Rate 10 L 17 Blood Pressure Blood Pressure [Left Wrist] 127/71 143/124 H Pulse Oximetry 92 98 MDM - Chest Pain <Aan Dominguez PA-C - Last Filed: 02/22/19 20:03> Lab Data Result diagrams: 02/22/19 13:35 02/22/19 13:35 Lab Results 02/22/19 02/22/19 02/22/19 Range/Units 13:35 13:35 13:35 WBC 6.5 (4.5-11.0) X10^3/uL RBC 5.49 (4.5-5.9) X10^6/uL Hgb 13.2 L (13.5-17.5) g/dL Hct 41.8 (41-53) % MCV 76.1 L (80-100) fL MCH 24.0 L (26-34) PG MCHC 31.6 (30-36) % RDW 15.3 H (11.6-14.8) % Plt Count 170 (150-400) X10^3/uL Neut % (Auto) 72.0 (50-75) % Lymph % (Auto) 20.1 L (25-40) % Gentry % (Auto) 5.0 (3-14) % Eos % (Auto) 2.2 (2-4) % Baso % (Auto) 0.7 (0-2) % Neut # (Auto) 4600 (8274-8906) /uL Lymph # (Auto) 1300 (2434-3226) /uL Gentry # (Auto) 300 (0-900) /uL Eos # (Auto) 100 (0-450) /uL Baso # (Auto) 0 (0-100) /uL PT 13.3 H (10.1-12.7) SECONDS INR 1.1 (0.9-1.3) APTT Cancelled Sodium Cancelled Potassium Cancelled Chloride Cancelled Carbon Dioxide Cancelled BUN Cancelled Creatinine Cancelled Estimated GFR Cancelled BUN/Creatinine Ratio Cancelled Glucose Cancelled Calcium Cancelled Total Bilirubin Cancelled AST Cancelled ALT Cancelled Alkaline Phosphatase Cancelled Total Creatine Kinase Cancelled CK-MB (CK-2) Cancelled CK-MB (CK-2) Rel Index Cancelled Troponin I Cancelled Total Protein Cancelled Albumin Cancelled Globulin Cancelled Albumin/Globulin Ratio Cancelled Lipase Cancelled Specimen Hemolysis Cancelled Imaging Data Chest x-ray: Radiologist's impression: [address] [address] XRay Report Signed Patient: Babatunde Fitzgerald KMR#: [id number] : 1980Acct:[id number] Age/Sex: 38 / MDate of Service: 02/22/19 Loc: ED Accession Number: [id number] Procedure: XR chest 1V Ordering Provider: Maame Haynes MD PROCEDURE: XR CHEST 1V INDICATIONS: chest pain TECHNIQUE: One view of the chest was acquired. COMPARISON: [facility], CR, XR CHEST 1V, 02/18/2019, 5:45. FINDINGS: Surgical changes and devices: None. Lungs and pleura: There is pulmonary vascular congestion. No definite focal infiltrate. No pleural effusions or pneumothorax. Mediastinum: Mediastinal contours appear normal. Heart size is normal. Bones and chest wall: No suspicious bony lesions. Overlying soft tissues appear unremarkable. IMPRESSION: Congestive changes. No definite focal infiltrate. Dictated by: Emiliano Whitaker M.D. on 02/22/2019 at 14:40 Approved by: Emiliano Whitaker M.D. on 02/22/2019 at 14:41 ECG Data Attestation: I personally reviewed and interpreted this ECG as follows: (Normal sinus rhythm, rate 78, no acute ST changes) Prior ECG tracings: available for review <Maame Haynes MD - Last Filed: 02/22/19 20:10> Lab Data Lab Results 02/22/19 02/22/19 02/22/19 Range/Units 13:35 13:35 13:35 WBC 6.5 (4.5-11.0) X10^3/uL RBC 5.49 (4.5-5.9) X10^6/uL Hgb 13.2 L (13.5-17.5) g/dL Hct 41.8 (41-53) % MCV 76.1 L (80-100) fL MCH 24.0 L (26-34) PG MCHC 31.6 (30-36) % RDW 15.3 H (11.6-14.8) % Plt Count 170 (150-400) X10^3/uL Neut % (Auto) 72.0 (50-75) % Lymph % (Auto) 20.1 L (25-40) % Gentry % (Auto) 5.0 (3-14) % Eos % (Auto) 2.2 (2-4) % Baso % (Auto) 0.7 (0-2) % Neut # (Auto) 4600 (0779-7862) /uL Lymph # (Auto) 1300 (6147-8279) /uL Gentry # (Auto) 300 (0-900) /uL Eos # (Auto) 100 (0-450) /uL Baso # (Auto) 0 (0-100) /uL PT 13.3 H (10.1-12.7) SECONDS INR 1.1 (0.9-1.3) APTT Cancelled Sodium Cancelled Potassium Cancelled Chloride Cancelled Carbon Dioxide Cancelled BUN Cancelled Creatinine Cancelled Estimated GFR Cancelled BUN/Creatinine Ratio Cancelled Glucose Cancelled Calcium Cancelled Total Bilirubin Cancelled AST Cancelled ALT Cancelled Alkaline Phosphatase Cancelled Total Creatine Kinase Cancelled CK-MB (CK-2) Cancelled CK-MB (CK-2) Rel Index Cancelled Troponin I Cancelled Total Protein Cancelled Albumin Cancelled Globulin Cancelled Albumin/Globulin Ratio Cancelled Lipase Cancelled Specimen Hemolysis Cancelled Discharge Plan Departure Patient Disposition: Home Clinical Impression: Anxiety attack Discharge Date/Time: 02/22/19 15:38 Interventions: ED Discharge Assessment Last Done: 02/22/19 15:37 Instructions: DI for Panic Disorder Activity Restrictions/Additional Instructions: As we have talked about, you need to follow-up with your clinic and have a plan on how to treat your anxiety/panic attacks since your anxiety gets worse frequently. I have spoken with your clinic today and they want you to be sure to follow up tomorrow and talk about further treatment plans. You need to talk with them about how you feel like your Olanzepine is not working as well as it could and whether you should increase it or add more medication to help with your symptoms. You need to talk with them about having a plan for treating this at home rather than coming back to the emergency room. You should come to the emergency room if you have new symptoms like acutely worsening breathing problems as we talked about. Prescriptions: No Action acetaminophen 325 mg Tablet 650 mg PO Q6HR PRN (Reason: Pain, Mild) Qty: 30 RF: 0 diphenhydramine HCl [Allergy (diphenhydramine)] 25 mg Tablet 25 mg PO Q6HR PRN (Reason: Itching) Qty: 30 RF: 0 nystatin [Nystop] 100,000 unit/gram Powder 1 applic topical TID PRN (Reason: abd folds/excoriation) Qty: 1 RF: 0 albuterol sulfate 2.5 mg /3 mL (0.083 %) solution for nebulization 3 ml Inhalation QID PRN (Reason: Shortness Of Breath) RF: 0 albuterol sulfate 90 mcg/actuation HFA aerosol inhaler 2 - 4 puff Inhalation Q4-6H PRN (Reason: Shortness Of Breath) RF: 0 gabapentin [Neurontin] 300 mg Capsule 300 mg PO TID Qty: 180 RF: 0 methadone 10 mg tablet 60 mg PO DAILY Qty: 1 RF: 0 olanzapine 10 mg tablet 10 mg PO DAILY RF: 0 loratadine 10 mg Tablet 10 mg PO DAILY Qty: 30 RF: 0 prednisone 5 mg tablet 5 mg PO DAILY Qty: 32 RF: 0 ferrous sulfate 325 mg (65 mg iron) tablet,delayed release (DR/EC) 325 mg PO DAILY Qty: 30 RF: 0 ascorbic acid (vitamin C) [Vitamin C] 500 mg tablet extended release 500 mg PO DAILY Qty: 30 RF: 0 Referrals: Rama Hernández MD [Primary Care Provider] -
[2019-02-22 14:07] LABS: Add Manual Diff / Slide Review NO; Basophils Absolute Auto 0 /uL (0-100); Basophils Percent Auto 0.7 % (0-2); Eosinophils Absolute Auto 100 /uL (0-450); Eosinophils Percent Auto 2.2 % (2-4); Hematocrit 41.8 % (41-53); Hemoglobin 13.2 g/dL (13.5-17.5); Lymphocytes Absolute Auto 1300 /uL (1100-4500); Lymphocytes Percent Auto 20.1 % (25-40); Mean Corpuscular HGB Conc 31.6 % (30-36); Mean Corpuscular Volume 76.1 fL (80-100); Monocytes Absolute Auto 300 /uL (0-900); Neutrophils Absolute Auto 4600 /uL (1500-7000); Platelet Count 170 X10^3/uL (150-400); Red Blood Cell Count 5.49 X10^6/uL (4.5-5.9); Red Cell Distribution Width 15.3 % (11.6-14.8); White Blood Cell Count 6.5 X10^3/uL (4.5-11.0)
[2019-02-22 14:10] LABS: INR 1.1 (0.9-1.3); Prothrombin Time 13.3 SECONDS (10.1-12.7)
--- NOTE | 2019-02-22 14:18 | ED_ITS ---
HPI - Chest Pain <Ana Dominguez PA-C - Last Filed: 02/22/19 20:03> General Chief Complaint: Chest Pain Stated Complaint: Chest Pain Time Seen by Provider: 02/22/19 14:03 Source: patient Mode of arrival: EMS Limitations: no limitations History of Present Illness HPI narrative: This 38-year-old male is brought to ED secondary to recurrent anxiety attack with chest discomfort and palpitations. He states this has been worsening for some time. He does not think this is an acutely changed issue today, but states his anti anxiety medication is not working for him for anxiety attacks. He states initially that he missed his clinic appointment today and did not get his Zyprexa, later states that he did get it but not helping. He states that this is the same chest discomfort, palpitations, shaky feeling that he has had in the setting of anxiety in the past and states that he does not feel like symptoms would be present if not for anxiety. He states that his breathing is ?good? today, denies any shortness of breath or asthma symptoms. He states he has been eating and drinking normally today. He denies any new pain or swelling in his legs. He denies other complaints on systems review, wondering if he can have medicine to ?help me calm down? Related Data Home Medications Medication Instructions Recorded Confirmed albuterol sulfate 2 - 4 puff INHALATION Q4-6H PRN 01/12/19 02/17/19 albuterol sulfate 3 ml INHALATION QID PRN 01/12/19 02/17/19 olanzapine 10 mg PO DAILY 02/17/19 02/17/19 Previous Rx's Medication Instructions Recorded acetaminophen 650 mg PO Q6HR PRN #30 tab 11/26/18 diphenhydramine HCl [Allergy 25 mg PO Q6HR PRN #30 tab 11/26/18 (diphenhydramine)] nystatin [Nystop] 1 applic TOPICAL TID PRN #1 pkg 11/26/18 gabapentin [Neurontin] 300 mg PO TID #180 cap 01/15/19 methadone 60 mg PO DAILY #1 tab 01/15/19 ascorbic acid (vitamin C) [Vitamin 500 mg PO DAILY #30 tab 02/19/19 C] ferrous sulfate 325 mg PO DAILY #30 tab 02/19/19 loratadine 10 mg PO DAILY #30 tab 02/19/19 prednisone 5 mg PO DAILY #32 tab 02/19/19 Allergies Allergy/AdvReac Type Severity Reaction Status Date / Time NSAIDS (Non-Steroidal Allergy Unknown ASTHMA Verified 02/22/19 13:58 Anti-Inflamma FLARE UPS [NSAIDS (NON-STEROIDAL ANTI-INFLAMMA] ibuprofen AdvReac Mild nausea, GI Verified 02/22/19 13:58 upset Review of Systems <Ana Dominguez PA-C - Last Filed: 02/22/19 20:03> Review of Systems ROS Unobtainable: All systems reviewed & are unremarkable except as noted in HPI and below PFSH <Ana Dominguez PA-C - Last Filed: 02/22/19 20:03> Medical History Anxiety (Chronic) Asthma (Chronic) Chronic skin ulcer (Chronic) Methadone use disorder, mild, in controlled environment (Chronic) Morbid obesity (Chronic) Pulmonary hypertension (Chronic) Surgical History H/O vertebral fracture repair (Chronic) History of hip surgery (Chronic) Family History Mother Diabetes mellitus Father No problems noted. Social History household members: significant other Smoking Status: Never smoker Social History household members: significant other Smoking Status: Never smoker Exam <Ana Dominguez PA-C - Last Filed: 02/22/19 20:03> Narrative Exam Narrative: GENERAL APPEARANCE: Patient sitting comfortably, in no distress. NECK/THYROID: Neck supple, no JVD. LUNGS: Mild generalized wheeze, good air entry, speaks easily in complete sentences. HEART: Regular rate and rhythm without murmur, normal S1, S2, no S3 or S4. ABDOMEN: Soft, obese, NT, ND, + BS x 4 quadrants EXTREMITIES: Moderate symmetric edema, no calf tenderness NEUROLOGIC: Alert with normal speech and coordination. Initial Vital Signs Initial Vital Signs: Vital Signs Temperature 98.3 F 02/22/19 13:53 Pulse Rate 85 02/22/19 13:53 Respiratory Rate 12 02/22/19 13:53 Blood Pressure 136/54 L 02/22/19 13:53 Pulse Oximetry 97 02/22/19 13:53 <Maame Haynes MD - Last Filed: 02/22/19 20:10> Initial Vital Signs Initial Vital Signs: Vital Signs Temperature 98.3 F 02/22/19 13:53 Pulse Rate 85 02/22/19 13:53 Respiratory Rate 12 02/22/19 13:53 Blood Pressure 136/54 L 02/22/19 13:53 Pulse Oximetry 97 02/22/19 13:53 Course <Ana Dominguez PA-C - Last Filed: 02/22/19 20:03> Additional Information: Patient does not appear to have any acutely changed symptoms today. He reports symptoms typical of his anxiety attacks. He was seen at the clinic this morning and given his usual dose of Zyprexa. His main primary care provider is out of office today but I did speak with Arlen, nurse practitioner there who knows patient as well. We discussed his frequent ED vis its. He was actually just discharged due to asthma exacerbation, but reports no symptoms today. He was given a nebulizer treatment for wheeze noted on exam with improvement on recheck. His oxygen saturations have remained normal. After discussion with PCP, we did decide to give a dose of hydroxyzine here as it is possible steroid taper he is on may exacerbate his anxiety a bit. He continues to focus on immediate relief of his symptoms, and I explained multiple times that this long-term problem needs to be addressed with his primary care clinic, and they need to discuss a home treatment plan for him for panic attacks. He agrees to follow up there tomorrow and has previously planned. Orders Ordered: ED Orders 02/22/19 13:35 Complete Blood Count AUTO DIFF Stat Prothrombin Time INR Stat 02/22/19 13:57 EKG-12 Lead Stat 02/22/19 14:00 XR chest 1V Stat Discontinued Medications Albuterol/Ipratropium (Duoneb) 3 ml INH NOW ONE Stop: 02/22/19 14:10 Last Admin: 02/22/19 14:19 Dose: 3 ml Hydroxyzine Pamoate (Vistaril) 25 mg PO NOW ONE Stop: 02/22/19 14:31 Last Admin: 02/22/19 14:37 Dose: 25 mg Vital Signs - 8 hr 02/22/19 13:53 02/22/19 14:00 02/22/19 14:19 Temperature 98.3 F Pulse Rate 85 104 H 92 H Respiratory Rate 12 95 H 18 Blood Pressure 136/54 L Blood Pressure [Left Wrist] 127/59 L Pulse Oximetry 97 99 02/22/19 14:46 02/22/19 15:00 Temperature Pulse Rate 84 92 H Respiratory Rate 10 L 17 Blood Pressure Blood Pressure [Left Wrist] 127/71 143/124 H Pulse Oximetry 92 98 <Maame Haynes MD - Last Filed: 02/22/19 20:10> Orders Ordered: ED Orders 02/22/19 13:35 Complete Blood Count AUTO DIFF Stat Prothrombin Time INR Stat 02/22/19 13:57 EKG-12 Lead Stat 02/22/19 14:00 XR chest 1V Stat Discontinued Medications Albuterol/Ipratropium (Duoneb) 3 ml INH NOW ONE Stop: 02/22/19 14:10 Last Admin: 02/22/19 14:19 Dose: 3 ml Hydroxyzine Pamoate (Vistaril) 25 mg PO NOW ONE Stop: 02/22/19 14:31 Last Admin: 02/22/19 14:37 Dose: 25 mg Vital Signs - 8 hr 02/22/19 13:53 02/22/19 14:00 02/22/19 14:19 Temperature 98.3 F Pulse Rate 85 104 H 92 H Respiratory Rate 12 95 H 18 Blood Pressure 136/54 L Blood Pressure [Left Wrist] 127/59 L Pulse Oximetry 97 99 02/22/19 14:46 02/22/19 15:00 Temperature Pulse Rate 84 92 H Respiratory Rate 10 L 17 Blood Pressure Blood Pressure [Left Wrist] 127/71 143/124 H Pulse Oximetry 92 98 MDM - Chest Pain <Ana Dominguez PA-C - Last Filed: 02/22/19 20:03> Lab Data Result diagrams: 02/22/19 13:35 02/22/19 13:35 Lab Results 02/22/19 02/22/19 02/22/19 Range/Units 13:35 13:35 13:35 WBC 6.5 (4.5-11.0) X10^3/uL RBC 5.49 (4.5-5.9) X10^6/uL Hgb 13.2 L (13.5-17.5) g/dL Hct 41.8 (41-53) % MCV 76.1 L (80-100) fL MCH 24.0 L (26-34) PG MCHC 31.6 (30-36) % RDW 15.3 H (11.6-14.8) % Plt Count 170 (150-400) X10^3/uL Neut % (Auto) 72.0 (50-75) % Lymph % (Auto) 20.1 L (25-40) % [place] % (Auto) 5.0 (3-14) % Eos % (Auto) 2.2 (2-4) % Baso % (Auto) 0.7 (0-2) % Neut # (Auto) 4600 (0688-9169) /uL Lymph # (Auto) 1300 (9279-4437) /uL [place] # (Auto) 300 (0-900) /uL Eos # (Auto) 100 (0-450) /uL Baso # (Auto) 0 (0-100) /uL PT 13.3 H (10.1-12.7) SECONDS INR 1.1 (0.9-1.3) APTT Cancelled Sodium Cancelled Potassium Cancelled Chloride Cancelled Carbon Dioxide Cancelled BUN Cancelled Creatinine Cancelled Estimated GFR Cancelled BUN/Creatinine Ratio Cancelled Glucose Cancelled Calcium Cancelled Total Bilirubin Cancelled AST Cancelled ALT Cancelled Alkaline Phosphatase Cancelled Total Creatine Kinase Cancelled CK-MB (CK-2) Cancelled CK-MB (CK-2) Rel Index Cancelled Troponin I Cancelled Total Protein Cancelled Albumin Cancelled Globulin Cancelled Albumin/Globulin Ratio Cancelled Lipase Cancelled Specimen Hemolysis Cancelled Imaging Data Chest x-ray: Radiologist's impression: [address] [address] XRay Report Signed Patient: Babatunde Fitzgerald KMR#: [id number] : 1980Acct:[id number] Age/Sex: 38 / MDate of Service: 02/22/19 Loc: ED Accession Number: [id number] Procedure: XR chest 1V Ordering Provider: Maame Haynes MD PROCEDURE: XR CHEST 1V INDICATIONS: chest pain TECHNIQUE: One view of the chest was acquired. COMPARISON: [facility], CR, XR CHEST 1V, 02/18/2019, 5:45. FINDINGS: Surgical changes and devices: None. Lungs and pleura: There is pulmonary vascular congestion. No definite focal infiltrate. No pleural effusions or pneumothorax. Mediastinum: Mediastinal contours appear normal. Heart size is normal. Bones and chest wall: No suspicious bony lesions. Overlying soft tissues appear unremarkable. IMPRESSION: Congestive changes. No definite focal infiltrate. Dictated by: Emiliano Whitaker M.D. on 02/22/2019 at 14:40 Approved by: Emiliano Whitaker M.D. on 02/22/2019 at 14:41 ECG Data Attestation: I personally reviewed and interpreted this ECG as follows: (Normal sinus rhythm, rate 78, no acute ST changes) Prior ECG tracings: available for review <Maame Haynes MD - Last Filed: 02/22/19 20:10> Lab Data Lab Results 02/22/19 02/22/19 02/22/19 Range/Units 13:35 13:35 13:35 WBC 6.5 (4.5-11.0) X10^3/uL RBC 5.49 (4.5-5.9) X10^6/uL Hgb 13.2 L (13.5-17.5) g/dL Hct 41.8 (41-53) % MCV 76.1 L (80-100) fL MCH 24.0 L (26-34) PG MCHC 31.6 (30-36) % RDW 15.3 H (11.6-14.8) % Plt Count 170 (150-400) X10^3/uL Neut % (Auto) 72.0 (50-75) % Lymph % (Auto) 20.1 L (25-40) % [place] % (Auto) 5.0 (3-14) % Eos % (Auto) 2.2 (2-4) % Baso % (Auto) 0.7 (0-2) % Neut # (Auto) 4600 (9641-8264) /uL Lymph # (Auto) 1300 (7813-0845) /uL [place] # (Auto) 300 (0-900) /uL Eos # (Auto) 100 (0-450) /uL Baso # (Auto) 0 (0-100) /uL PT 13.3 H (10.1-12.7) SECONDS INR 1.1 (0.9-1.3) APTT Cancelled Sodium Cancelled Potassium Cancelled Chloride Cancelled Carbon Dioxide Cancelled BUN Cancelled Creatinine Cancelled Estimated GFR Cancelled BUN/Creatinine Ratio Cancelled Glucose Cancelled Calcium Cancelled Total Bilirubin Cancelled AST Cancelled ALT Cancelled Alkaline Phosphatase Cancelled Total Creatine Kinase Cancelled CK-MB (CK-2) Cancelled CK-MB (CK-2) Rel Index Cancelled Troponin I Cancelled Total Protein Cancelled Albumin Cancelled Globulin Cancelled Albumin/Globulin Ratio Cancelled Lipase Cancelled Specimen Hemolysis Cancelled Discharge Plan Departure Patient Disposition: Home Clinical Impression: Anxiety attack Discharge Date/Time: 02/22/19 15:38 Interventions: ED Discharge Assessment Last Done: 02/22/19 15:37 Instructions: DI for Panic Disorder Activity Restrictions/Additional Instructions: As we have talked about, you need to follow-up with your clinic and have a plan on how to treat your anxiety/panic attacks since your anxiety gets worse frequently. I have spoken with your clinic today and they want you to be sure to follow up tomorrow and talk about further treatment plans. You need to talk with them about how you feel like your Olanzepine is not working as well as it could and whether you should increase it or add more medication to help with your symptoms. You need to talk with them about having a plan for treating this at home rather than coming back to the emergency room. You should come to the emergency room if you have new symptoms like acutely worsening breathing prob lems as we talked about. Prescriptions: No Action acetaminophen 325 mg Tablet 650 mg PO Q6HR PRN (Reason: Pain, Mild) Qty: 30 RF: 0 diphenhydramine HCl [Allergy (diphenhydramine)] 25 mg Tablet 25 mg PO Q6HR PRN (Reason: Itching) Qty: 30 RF: 0 nystatin [Nystop] 100,000 unit/gram Powder 1 applic topical TID PRN (Reason: abd folds/excoriation) Qty: 1 RF: 0 albuterol sulfate 2.5 mg /3 mL (0.083 %) solution for nebulization 3 ml Inhalation QID PRN (Reason: Shortness Of Breath) RF: 0 albuterol sulfate 90 mcg/actuation HFA aerosol inhaler 2 - 4 puff Inhalation Q4-6H PRN (Reason: Shortness Of Breath) RF: 0 gabapentin [Neurontin] 300 mg Capsule 300 mg PO TID Qty: 180 RF: 0 methadone 10 mg tablet 60 mg PO DAILY Qty: 1 RF: 0 olanzapine 10 mg tablet 10 mg PO DAILY RF: 0 loratadine 10 mg Tablet 10 mg PO DAILY Qty: 30 RF: 0 prednisone 5 mg tablet 5 mg PO DAILY Qty: 32 RF: 0 ferrous sulfate 325 mg (65 mg iron) tablet,delayed release (DR/EC) 325 mg PO DAILY Qty: 30 RF: 0 ascorbic acid (vitamin C) [Vitamin C] 500 mg tablet extended release 500 mg PO DAILY Qty: 30 RF: 0 Referrals: Rama Hernández MD [Primary Care Provider] -
[2019-02-22 14:19] VITALS: PULSE 92; RESP 18; O2SAT 99
[2019-02-22] MEDS: ALBUTEROL/IPRATROPIUM 3 ML AMPUL INH (14:19)
[2019-02-22] MEDS: hydrOXYzine pamoate 25 MG CAPSULE PO (14:37)
--- NOTE | 2019-02-22 14:42 | PC.NURSE ---
medicated as ordered. normal sinus on the monitor , vss.
[2019-02-22 14:46] VITALS: BP 127/71; PULSE 84; RESP 10; O2SAT 92
[2019-02-22 15:00] VITALS: BP 143/124; PULSE 92; RESP 17; O2SAT 98
== END 2019-02-22 15:38 | disposition home or self-care (01) ==
PROVIDERS: Emergency Medicine; Emergency Provider Internal Medicine; Family Provider Family Medicine; PCP Family Medicine
DX: F41.9 Anxiety disorder, unspecified (principal); R07.89 Other chest pain
CPT/HCPCS: 71045; 85025; 85610; 93005; 94640; 99283; 99285

== ENCOUNTER 2019-08-06 11:34 | Emergency (ER) | payer OTHER, MEDICAID, SELFPAY ==
[2019-02-17 18:40] VITALS: BMI 68.8
[2019-08-06 12:06] VITALS: BP 135/80; PULSE 100; RESP 18; TEMP 36.6; BMI 64.9
--- NOTE | 2019-08-06 12:08 | ED.ANXIETY ---
HPI - Anxiety <Concepcion Worthy, POLICE SURGEON-BC - Last Filed: 08/06/19 17:10> General Chief Complaint: Anxiety Stated Complaint: anxiety Time Seen by Provider: 08/06/19 12:03 Source: patient and EMS Mode of arrival: EMS Limitations: no limitations History of Present Illness HPI narrative: The patient is a 38-year-old non smoker well known to this department who presents with a chief complaint of anxiety. He has chronic anxiety, states he has been taking his Zyprexa. He states he did not take it today as he was out of his medication. He states that he feels like he is crawling out of his skin he denies any chest pain or shortness of breath. He does have a history of significant asthma, but states that his asthma is under well control right now. He states he is due for his nebulizer treatment as per his routine. He denies any heights of hurting himself or anybody else. He denies any difficulty breathing. The patient is adamant that his asthma is not an issue today. He presents with 90% SpO2 on room air. Related Data Home Medications Medication Instructions Recorded Confirmed albuterol sulfate 2 - 4 puff INHALATION Q4-6H PRN 01/12/19 02/17/19 albuterol sulfate 3 ml INHALATION QID PRN 01/12/19 02/17/19 olanzapine 10 mg PO DAILY 02/17/19 02/17/19 Previous Rx's Medication Instructions Recorded acetaminophen 650 mg PO Q6HR PRN #30 tab 11/26/18 diphenhydramine HCl [Allergy 25 mg PO Q6HR PRN #30 tab 11/26/18 (diphenhydramine)] nystatin [Nystop] 1 applic TOPICAL TID PRN #1 pkg 11/26/18 gabapentin [Neurontin] 300 mg PO TID #180 cap 01/15/19 methadone 60 mg PO DAILY #1 tab 01/15/19 ascorbic acid (vitamin C) [Vitamin 500 mg PO DAILY #30 tab 02/19/19 C] ferrous sulfate 325 mg PO DAILY #30 tab 02/19/19 loratadine 10 mg PO DAILY #30 tab 02/19/19 prednisone 5 mg PO DAILY #32 tab 02/19/19 Allergies Allergy/AdvReac Type Severity Reaction Status Date / Time NSAIDS (Non-Steroidal Allergy Unknown ASTHMA Verified 02/22/19 13:58 Anti-Inflamma FLARE UPS [NSAIDS (NON-STEROIDAL ANTI-INFLAMMA] ibuprofen AdvReac Mild nausea, GI Verified 02/22/19 13:58 upset Review of Systems <ANTONETTE Messer - Last Filed: 08/06/19 17:10> Review of Systems Narrative: GENERAL: Denies chills, fatigue, malaise, fever, sweats. HEENT: Denies sinus pain, ear pain, sore throat, difficulty swallowing, dizziness. RESPIRATORY: See HPI CARDIOVASCULAR: Denies chest pain, palpitations, orthopnea, edema, GASTROINTESTINAL: Denies nausea, vomiting, abdominal pain, diarrhea, constipation, melena. : Denies dysuria, frequency, incontinence, hematuria, urinary retention. MUSCULOSKELETAL: denies weakness, joint pain, or bony pain SKIN: Denies rash, skin lesions, or other NEUROLOGIC: Denies weakness, headache, numbness, change in speech, confusion, seizures, incoordination. PSYCHIATRIC: See HPI 12 point review of systems is negative except for those stated above Patient History <ANTONETTE Messer - Last Filed: 08/06/19 17:10> Medical History Anxiety (Chronic) Asthma (Chronic) Chronic skin ulcer (Chronic) Methadone use disorder, mild, in controlled environment (Chronic) Morbid obesity (Chronic) Pulmonary hypertension (Chronic) Surgical History H/O vertebral fracture repair (Chronic) History of hip surgery (Chronic) Family History Mother Diabetes mellitus Father No problems noted. Social History household members: significant other Smoking Status: Never smoker alcohol intake frequency: 0-2 drinks per day Substance Use Type: does not use Exam <ANTONETTE Messer - Last Filed: 08/06/19 17:10> Narrative Exam Narrative: GENERAL: Obese male sitting on wheelchair HEAD: Atraumatic. Normocephalic. No temporal or scalp tenderness. EYES: Pupils equal round and reactive. Extraocular motions intact. No scleral icterus. No injection or drainage. ENT: Nose without bleeding, purulent drainage or septal hematoma. Throat without erythema, tonsillar hypertrophy or exudate. Uvula midline. Airway patent. NECK: Trachea midline. No JVD or lymphadenopathy. Supple, nontender, no meningeal signs. CARDIOVASCULAR: Regular rate and rhythm RESPIRATORY: Diffuse expiratory wheezes bilaterally. Breath sounds equal bilaterally. No rales or rhonchi. No increased respiratory effort. No accessory muscle use. Speaking full sentences. GASTROINTESTINAL: Abdomen soft, non-tender, nondistended. No hepato-splenomegaly, or palpable masses. No guarding. EXTREMITIES: No clubbing, cyanosis, or edema. No joint tenderness, effusion, or edema noted. BACK: Nontender without deformity or crepitance. No flank tenderness. NEURO: AOx3. Interactive. SKIN: No rash or erythema on visible skin. Initial Vital Signs Initial Vital Signs: Vital Signs Temperature 98 F 08/06/19 12:06 Pulse Rate 100 H 08/06/19 12:06 Respiratory Rate 18 08/06/19 12:06 Blood Pressure 135/80 08/06/19 12:06 <Parish Arizmendi DO - Last Filed: 08/06/19 19:23> Initial Vital Signs Initial Vital Signs: Vital Signs Temperature 98 F 08/06/19 12:06 Pulse Rate 100 H 08/06/19 12:06 Respiratory Rate 18 08/06/19 12:06 Blood Pressure 135/80 08/06/19 12:06 Course <ROLAN Messer - Last Filed: 08/06/19 17:10> Orders Ordered: ED Orders 08/06/19 12:04 RT Consult Eval and Treat NOW Discontinued Medications Albuterol/Ipratropium (Duoneb) 3 ml INH NOW ONE Stop: 08/06/19 12:47 Last Admin: 08/06/19 12:49 Dose: 3 ml Documented by: LAWANDA Hydroxyzine Pamoate (Vistaril) 50 mg PO NOW ONE Stop: 08/06/19 12:05 Last Admin: 08/06/19 12:28 Dose: 50 mg Documented by: JIN Olanzapine (Zyprexa Zydis) 20 mg PO NOW ONE Stop: 08/06/19 12:17 Last Admin: 08/06/19 12:28 Dose: 20 mg Documented by: JIN Vital Signs Vital signs: Vital Signs - 8 hr 08/06/19 12:06 08/06/19 13:37 Temperature 98 F Pulse Rate 100 H 97 H Respiratory Rate 18 18 Blood Pressure 135/80 119/70 Pulse Oximetry 90 L <Parish Arizmendi DO - Last Filed: 08/06/19 19:23> Orders Ordered: ED Orders 08/06/19 12:04 RT Consult Eval and Treat NOW Discontinued Medications Albuterol/Ipratropium (Duoneb) 3 ml INH NOW ONE Stop: 08/06/19 12:47 Last Admin: 08/06/19 12:49 Dose: 3 ml Documented by: LAWANDA Hydroxyzine Pamoate (Vistaril) 50 mg PO NOW ONE Stop: 08/06/19 12:05 Last Admin: 08/06/19 12:28 Dose: 50 mg Documented by: JIN Olanzapine (Zyprexa Zydis) 20 mg PO NOW ONE Stop: 08/06/19 12:17 Last Admin: 08/06/19 12:28 Dose: 20 mg Documented by: JIN Vital Signs Vital signs: Vital Signs - 8 hr 08/06/19 12:06 08/06/19 13:37 Temperature 98 F Pulse Rate 100 H 97 H Respiratory Rate 18 18 Blood Pressure 135/80 119/70 Pulse Oximetry 90 L MDM - Anxiety <HELEN Messer-BC - Last Filed: 08/06/19 17:10> MDM Narrative Medical decision making narrative: The patient is a 38-year-old male well known to this department with history of anxiety as well as asthma. He presents with a chief complaint of anxiety after he did not take his morning anxiety medication. He denies any thoughts of hurting himself or anybody else. He states his asthma is well controlled at this point, but would like his schedule nebulizer. This was given to him in the emergency department. He denies any oxygen at this point, stating he has home oxygen if he needs it. He does not want respiratory workup today. He was given his dose of Zyprexa in the emergency department. I discussed at length that he needs to follow up with primary care provider tomorrow, and come back to the emergency department if needed for any acute concerns such as concern of heart attack or stroke. The patient denies any difficulty breathing or chest pain during his visit today. He states understanding of return precautions as well as follow-up care and has no questions or concerns upon discharge. Discharge Plan Departure Patient Disposition: Home Clinical Impression: Anxiety Discharge Date/Time: 08/06/19 13:38 Instructions: Anxiety Disorders, Anxiety and Panic Attacks (Alternative Therapy), DI for Anxiety -- Adult Activity Restrictions/Additional Instructions: Please follow up with primary care provider as soon as possible. Please come back to the emergency department for any acute concerns such as thoughts of hurting yourself or anybody else or if you have difficulty breathing Prescriptions: No Action acetaminophen 325 mg Tablet 650 mg PO Q6HR PRN (Reason: Pain, Mild) Qty: 30 RF: 0 diphenhydramine HCl [Allergy (diphenhydramine)] 25 mg Tablet 25 mg PO Q6HR PRN (Reason: Itching) Qty: 30 RF: 0 nystatin [Nystop] 100,000 unit/gram Powder 1 applic topical TID PRN (Reason: abd folds/excoriation) Qty: 1 RF: 0 albuterol sulfate 2.5 mg /3 mL (0.083 %) solution for nebulization 3 ml Inhalation QID PRN (Reason: Shortness Of Breath) RF: 0 albuterol sulfate 90 mcg/actuation HFA aerosol inhaler 2 - 4 puff Inhalation Q4-6H PRN (Reason: Shortness Of Breath) RF: 0 gabapentin [Neurontin] 300 mg Capsule 300 mg PO TID Qty: 180 RF: 0 methadone 10 mg tablet 60 mg PO DAILY Qty: 1 RF: 0 olanzapine 10 mg tablet 10 mg PO DAILY RF: 0 loratadine 10 mg Tablet 10 mg PO DAILY Qty: 30 RF: 0 prednisone 5 mg tablet 5 mg PO DAILY Qty: 32 RF: 0 ferrous sulfate 325 mg (65 mg iron) tablet,delayed release (DR/EC) 325 mg PO DAILY Qty: 30 RF: 0 ascorbic acid (vitamin C) [Vitamin C] 500 mg tablet extended release 500 mg PO DAILY Qty: 30 RF: 0
[2019-08-06] MEDS: hydrOXYzine pamoate 25 MG CAPSULE 50 MG PO (12:28)
[2019-08-06] MEDS: OLANZapine ODT 10 MG TAB 20 MG PO (12:28)
[2019-08-06] MEDS: ALBUTEROL/IPRATROPIUM 3 ML AMPUL INH (12:49)
[2019-08-06 13:37] VITALS: BP 119/70; PULSE 97; RESP 18; O2SAT 90
== END 2019-08-06 13:38 | disposition home or self-care (01) ==
PROVIDERS: Emergency Provider Nurse Practitioner Family
DX: F41.9 Anxiety disorder, unspecified (principal)
CPT/HCPCS: 94640; 99282; 99283

== ENCOUNTER 2019-08-20 10:45 | Emergency (ER) | payer OTHER, MEDICAID, SELFPAY ==
[2019-02-17 18:40] VITALS: BMI 68.8
[2019-08-20 10:54] VITALS: BP 139/56; PULSE 86; RESP 18; TEMP 37.1; BMI 66.2
[2019-08-20 11:36] VITALS: O2SAT 90
--- NOTE | 2019-08-20 11:51 | ED.ANXIETY ---
HPI - Anxiety <Concepcion Worthy, IMMIGRATION LAW SPECIALIST-BC - Last Filed: 08/20/19 15:21> General Chief Complaint: Anxiety Stated Complaint: Anxiety Time Seen by Provider: 08/20/19 11:20 Source: patient Mode of arrival: EMS Limitations: no limitations History of Present Illness HPI narrative: The patient is a 38-year-old male current smoker well known to this department who presents with a chief complaint of anxiety. He states that his anxiety is bad enough that he feels like crawling out of his skin. He states he is taking his normal medications. He states he saw his doctor last week and has another appointment on Wednesday. He denies any thoughts of hurting himself or anybody else. He denies any shortness of breath or asthma exacerbation. He states his he is breathing much better than it used to be since he started losing weight. He states he is here today for anxiety, has no complaints about his breathing and does not want workup for his breathing. He denies any fevers nausea vomiting diarrhea chest pain or shortness of breath. Related Data Home Medications Medication Instructions Recorded Confirmed albuterol sulfate 2 - 4 puff INHALATION Q4-6H PRN 01/12/19 02/17/19 albuterol sulfate 3 ml INHALATION QID PRN 01/12/19 02/17/19 olanzapine 10 mg PO DAILY 02/17/19 02/17/19 Previous Rx's Medication Instructions Recorded acetaminophen 650 mg PO Q6HR PRN #30 tab 11/26/18 diphenhydramine HCl [Allergy 25 mg PO Q6HR PRN #30 tab 11/26/18 (diphenhydramine)] nystatin [Nystop] 1 applic TOPICAL TID PRN #1 pkg 11/26/18 gabapentin [Neurontin] 300 mg PO TID #180 cap 01/15/19 methadone 60 mg PO DAILY #1 tab 01/15/19 ascorbic acid (vitamin C) [Vitamin 500 mg PO DAILY #30 tab 02/19/19 C] ferrous sulfate 325 mg PO DAILY #30 tab 02/19/19 loratadine 10 mg PO DAILY #30 tab 02/19/19 prednisone 5 mg PO DAILY #32 tab 02/19/19 Allergies Allergy/AdvReac Type Severity Reaction Status Date / Time NSAIDS (Non-Steroidal Allergy Unknown ASTHMA Verified 08/07/19 08:26 Anti-Inflamma FLARE UPS [NSAIDS (NON-STEROIDAL ANTI-INFLAMMA] ibuprofen AdvReac Mild nausea, GI Verified 08/07/19 08:26 upset Review of Systems <ANTONETTE Messer - Last Filed: 08/20/19 15:21> Review of Systems Narrative: GENERAL: Denies chills, fatigue, malaise, fever, sweats. HEENT: Denies sinus pain, ear pain, sore throat, difficulty swallowing, dizziness. RESPIRATORY: See HPI CARDIOVASCULAR: Denies chest pain, palpitations, orthopnea, edema, GASTROINTESTINAL: Denies nausea, vomiting, abdominal pain, diarrhea, constipation, melena. : Denies dysuria, frequency, incontinence, hematuria, urinary retention. MUSCULOSKELETAL: denies weakness, joint pain, or bony pain SKIN: Denies rash, skin lesions, or other NEUROLOGIC: Denies weakness, headache, numbness, change in speech, confusion, seizures, incoordination. PSYCHIATRIC: See HPI 12 point review of systems is negative except for those stated above Patient History <ANTONETTE Messer - Last Filed: 08/20/19 15:21> Medical History Anxiety (Chronic) Asthma (Chronic) Chronic skin ulcer (Chronic) Methadone use disorder, mild, in controlled environment (Chronic) Morbid obesity (Chronic) Pulmonary hypertension (Chronic) Surgical History H/O vertebral fracture repair (Chronic) History of hip surgery (Chronic) Family History Mother Diabetes mellitus Father No problems noted. Social History household members: significant other Smoking Status: Current every day smoker alcohol intake frequency: 0-2 drinks per day Substance Use Type: does not use Exam <ANTONETTE Messer - Last Filed: 08/20/19 15:21> Narrative Exam Narrative: GENERAL: Morbidly obese male sitting in wheelchair, teary HEAD: Atraumatic. Normocephalic. No temporal or scalp tenderness. EYES: Pupils equal round and reactive. Extraocular motions intact. No scleral icterus. No injection or drainage. ENT: Nose without bleeding, purulent drainage or septal hematoma. Throat without erythema, tonsillar hypertrophy or exudate. Uvula midline. Airway patent. NECK: Trachea midline. No JVD or lymphadenopathy. Supple, nontender, no meningeal signs. CARDIOVASCULAR: Regular rate and rhythm RESPIRATORY: Diffuse expiratory wheeze upper wade bilaterally to auscultation. Breath sounds equal bilaterally. Kylah, or rhonchi. GASTROINTESTINAL: Abdomen soft, non-tender, nondistended. Active bowel sounds. BACK: Nontender without deformity or crepitance. No flank tenderness. NEURO: AOx3. Teary. Crying. Initial Vital Signs Initial Vital Signs: Vital Signs Temperature 98.8 F 08/20/19 10:54 Pulse Rate 86 08/20/19 10:54 Respiratory Rate 18 08/20/19 10:54 Blood Pressure 139/56 L 08/20/19 10:54 <Erica Funez DO - Last Filed: 08/20/19 18:44> Initial Vital Signs Initial Vital Signs: Vital Signs Temperature 98.8 F 08/20/19 10:54 Pulse Rate 86 08/20/19 10:54 Respiratory Rate 18 08/20/19 10:54 Blood Pressure 139/56 L 08/20/19 10:54 Course <ANTONETTE Messer - Last Filed: 08/20/19 15:21> Orders Ordered: Discontinued Medications Lorazepam (Ativan) 1 mg PO NOW ONE Stop: 08/20/19 12:33 Last Admin: 08/20/19 13:15 Dose: 1 mg Documented by: DIGNA Olanzapine (Zyprexa Zydis) 10 mg PO NOW ONE Stop: 08/20/19 11:32 Last Admin: 08/20/19 11:58 Dose: 10 mg Documented by: RAMÍREZ Vital Signs Vital signs: Vital Signs - 8 hr 08/20/19 10:54 08/20/19 11:36 08/20/19 14:10 Temperature 98.8 F Pulse Rate 86 Respiratory Rate 18 Blood Pressure 139/56 L Blood Pressure [Right Wrist] 135/72 Pulse Oximetry 90 L 96 <Erica Funez DO - Last Filed: 08/20/19 18:44> Orders Ordered: Discontinued Medications Lorazepam (Ativan) 1 mg PO NOW ONE Stop: 08/20/19 12:33 Last Admin: 08/20/19 13:15 Dose: 1 mg Documented by: DIGNA Olanzapine (Zyprexa Zydis) 10 mg PO NOW ONE Stop: 08/20/19 11:32 Last Admin: 08/20/19 11:58 Dose: 10 mg Documented by: RAMÍREZ Vital Signs Vital signs: Vital Signs - 8 hr 08/20/19 10:54 08/20/19 11:36 08/20/19 14:10 Temperature 98.8 F Pulse Rate 86 Respiratory Rate 18 Blood Pressure 139/56 L Blood Pressure [Right Wrist] 135/72 Pulse Oximetry 90 L 96 MDM - Anxiety <HELEN Messer-BC - Last Filed: 08/20/19 15:21> Differential Diagnosis Differential diagnosis: Likely panic disorder and acute anxiety MDM Narrative Medical decision making narrative: The patient is a 38-year-old male with history of anxiety who presents with a chief complaint of anxiety. He was given Zyprexa and Ativan in the emergency department felt his anxiety was improved. He denies any shortness of breath, states his asthma is well controlled, and denies any thoughts of hurting himself or anybody else. The patient does request medications for restless leg syndrome, and I stated that he would have to follow up with primary care provider regarding his concerns for restless leg syndrome. The patient has been hemodynamically stable throughout his stay in the emergency department, at 96% on room air. Patient states understanding of follow-up care, return precautions and has no questions or concerns upon discharge. Discharge Plan Departure Patient Disposition: Home Clinical Impression: Anxiety Discharge Date/Time: 08/20/19 14:07 Instructions: Anxiety Disorders, Anxiety and Panic Attacks (Alternative Therapy), DI for Anxiety -- Adult Activity Restrictions/Additional Instructions: Please follow up with primary care provider regarding control for your anxiety Today we gave you Zyprexa and Ativan Please go home and rest. Regarding your concerns about restless leg syndrome, please follow up with your primary care provider Please come back to the emergency department for any acute concerns Prescriptions: No Action acetaminophen 325 mg Tablet 650 mg PO Q6HR PRN (Reason: Pain, Mild) Qty: 30 RF: 0 diphenhydramine HCl [Allergy (diphenhydramine)] 25 mg Tablet 25 mg PO Q6HR PRN (Reason: Itching) Qty: 30 RF: 0 nystatin [Nystop] 100,000 unit/gram Powder 1 applic topical TID PRN (Reason: abd folds/excoriation) Qty: 1 RF: 0 albuterol sulfate 2.5 mg /3 mL (0.083 %) solution for nebulization 3 ml Inhalation QID PRN (Reason: Shortness Of Breath) RF: 0 albuterol sulfate 90 mcg/actuation HFA aerosol inhaler 2 - 4 puff Inhalation Q4-6H PRN (Reason: Shortness Of Breath) RF: 0 gabapentin [Neurontin] 300 mg Capsule 300 mg PO TID Qty: 180 RF: 0 methadone 10 mg tablet 60 mg PO DAILY Qty: 1 RF: 0 olanzapine 10 mg tablet 10 mg PO DAILY RF: 0 loratadine 10 mg Tablet 10 mg PO DAILY Qty: 30 RF: 0 prednisone 5 mg tablet 5 mg PO DAILY Qty: 32 RF: 0 ferrous sulfate 325 mg (65 mg iron) tablet,delayed release (DR/EC) 325 mg PO DAILY Qty: 30 RF: 0 ascorbic acid (vitamin C) [Vitamin C] 500 mg tablet extended release 500 mg PO DAILY Qty: 30 RF: 0 Referrals: Rama Hernández MD [Non-Staff] -
[2019-08-20] MEDS: OLANZapine ODT 10 MG TAB PO (11:58)
[2019-08-20] MEDS: LORazepam 0.5 MG TABLET 1 MG PO (13:15)
[2019-08-20 14:10] VITALS: BP 135/72; O2SAT 96
--- NOTE | 2019-08-24 14:48 | CM.DANOTE ---
Late entry... Taxi voucher provided for [employer] through [facility]
== END 2019-08-20 14:07 | disposition home or self-care (01) ==
PROVIDERS: Emergency Provider Nurse Practitioner Family
DX: F41.9 Anxiety disorder, unspecified (principal)
CPT/HCPCS: 99282; 99283

== ENCOUNTER 2019-10-16 02:35 | Emergency (ER) | payer OTHER, MEDICAID, SELFPAY ==
[2019-02-17 18:40] VITALS: BMI 68.8
[2019-10-16 02:46] VITALS: BP 129/70; PULSE 87; RESP 20; TEMP 36.7; O2SAT 94
--- NOTE | 2019-10-16 02:49 | ED.ANXIETY ---
HPI - Anxiety General Chief Complaint: Anxiety Stated Complaint: ANXIETY ATTACK Time Seen by Provider: 10/16/19 02:38 Source: patient Mode of arrival: Wheelchair Limitations: no limitations History of Present Illness HPI narrative: 38-year-old male who is well known to this emergency department for history of anxiety and asthma. Arrives today by private vehicle for concerns of a panic attack. Patient states that normally his medications work for him however he has not taken his medications over the past 24 hours because he ran out of them and has not been able to fill the prescription again. States it is ?really bad ?. Related Data Home Medications Medication Instructions Recorded Confirmed albuterol sulfate 2 - 4 puff INHALATION Q4-6H PRN 01/12/19 02/17/19 albuterol sulfate 3 ml INHALATION QID PRN 01/12/19 02/17/19 olanzapine 10 mg PO DAILY 02/17/19 02/17/19 Previous Rx's Medication Instructions Recorded acetaminophen 650 mg PO Q6HR PRN #30 tab 11/26/18 diphenhydramine HCl [Allergy 25 mg PO Q6HR PRN #30 tab 11/26/18 (diphenhydramine)] nystatin [Nystop] 1 applic TOPICAL TID PRN #1 pkg 11/26/18 gabapentin [Neurontin] 300 mg PO TID #180 cap 01/15/19 methadone 60 mg PO DAILY #1 tab 01/15/19 ascorbic acid (vitamin C) [Vitamin 500 mg PO DAILY #30 tab 02/19/19 C] ferrous sulfate 325 mg PO DAILY #30 tab 02/19/19 loratadine 10 mg PO DAILY #30 tab 02/19/19 prednisone 5 mg PO DAILY #32 tab 02/19/19 Allergies Allergy/AdvReac Type Severity Reaction Status Date / Time NSAIDS (Non-Steroidal Allergy Unknown ASTHMA Verified 08/07/19 08:26 Anti-Inflamma FLARE UPS [NSAIDS (NON-STEROIDAL ANTI-INFLAMMA] ibuprofen AdvReac Mild nausea, GI Verified 08/07/19 08:26 upset Review of Systems Constitutional Constitutional: Denies fever(s) Cardiovascular Cardiovascular: Denies chest pain Respiratory Respiratory: Reports wheezing Gastrointestinal Gastrointestinal: Denies abdominal pain Psychiatric Psychiatric: Reports anxiety and Denies depression Allergic/Immunologic Allergic/Immunologic: Reports wheezing Patient History Medical History Anxiety (Chronic) Asthma (Chronic) Chronic skin ulcer (Chronic) Methadone use disorder, mild, in controlled environment (Chronic) Morbid obesity (Chronic) Pulmonary hypertension (Chronic) Social History household members: significant other Smoking Status: Current every day smoker Smoking Status: Current every day smoker alcohol intake frequency: 0-2 drinks per day Substance Use Type: does not use Exam Initial Vital Signs Initial Vital Signs: Vital Signs Temperature 98.0 F 10/16/19 02:46 Pulse Rate 87 10/16/19 02:46 Respiratory Rate 20 10/16/19 02:46 Blood Pressure 129/70 10/16/19 02:46 Pulse Oximetry 94 10/16/19 02:46 Const General: cooperative Limitations: mental status not altered Resp Effort & Inspection: normal respiratory effort Auscultation: wheezes Cardio Rate: regular rate Rhythm: regular rhythm Neuro General: alert and awake Extrem General: normal to inspection, capillary refill normal and No edema Psych Appearance: disheveled Speech and Movement: restless Mood: anxious mood Affect: animated and anxious affect Attitude: cooperative Course Orders Ordered: Discontinued Medications Albuterol (Ventolin) 5 mg INH NOW ONE Stop: 10/16/19 02:50 Last Admin: 10/16/19 02:57 Dose: 5 mg Documented by: FABY Hydroxyzine Pamoate (Vistaril) 25 mg PO NOW ONE Stop: 10/16/19 03:19 Last Admin: 10/16/19 03:30 Dose: 25 mg Documented by: DELISA Lorazepam (Ativan) 1 mg PO NOW ONE Stop: 10/16/19 02:50 Last Admin: 10/16/19 02:58 Dose: 1 mg Documented by: FABY Olanzapine (Zyprexa Zydis) 20 mg PO NOW ONE Stop: 10/16/19 02:50 Last Admin: 10/16/19 02:58 Dose: 20 mg Documented by: FABY Vital Signs Vital signs: Vital Signs - 8 hr 10/16/19 02:46 10/16/19 03:01 Temperature 98.0 F Pulse Rate 87 86 Respiratory Rate 20 20 Blood Pressure 129/70 Pulse Oximetry 94 95 MDM - Anxiety MDM Narrative Medical decision making narrative: Patient went to the bathroom multiple times. Had periods when he was not crying in the room. Was alert and oriented. States that it normally takes a couple hours for his medication to work. He states he has only waiting around for his medications to work you would like to be discharged. He does have a refill of his medications at home. Discharge Plan Departure Patient Disposition: Home Clinical Impression: Anxiety Instructions: Anxiety and Panic Attacks (Alternative Therapy) Activity Restrictions/Additional Instructions: Take up your medications and take them as directed. Contact your primary provider for follow-up. Prescriptions: No Action acetaminophen 325 mg Tablet 650 mg PO Q6HR PRN (Reason: Pain, Mild) Qty: 30 RF: 0 diphenhydramine HCl [Allergy (diphenhydramine)] 25 mg Tablet 25 mg PO Q6HR PRN (Reason: Itching) Qty: 30 RF: 0 nystatin [Nystop] 100,000 unit/gram Powder 1 applic topical TID PRN (Reason: abd folds/excoriation) Qty: 1 RF: 0 albuterol sulfate 2.5 mg /3 mL (0.083 %) solution for nebulization 3 ml Inhalation QID PRN (Reason: Shortness Of Breath) RF: 0 albuterol sulfate 90 mcg/actuation HFA aerosol inhaler 2 - 4 puff Inhalation Q4-6H PRN (Reason: Shortness Of Breath) RF: 0 gabapentin [Neurontin] 300 mg Capsule 300 mg PO TID Qty: 180 RF: 0 methadone 10 mg tablet 60 mg PO DAILY Qty: 1 RF: 0 olanzapine 10 mg tablet 10 mg PO DAILY RF: 0 loratadine 10 mg Tablet 10 mg PO DAILY Qty: 30 RF: 0 prednisone 5 mg tablet 5 mg PO DAILY Qty: 32 RF: 0 ferrous sulfate 325 mg (65 mg iron) tablet,delayed release (DR/EC) 325 mg PO DAILY Qty: 30 RF: 0 ascorbic acid (vitamin C) [Vitamin C] 500 mg tablet extended release 500 mg PO DAILY Qty: 30 RF: 0
[2019-10-16] MEDS: ALBUTEROL 2.5 MG/3 ML NEB (ADULT) 5 MG INH (02:57)
[2019-10-16] MEDS: LORazepam 0.5 MG TABLET 1 MG PO (02:58)
[2019-10-16] MEDS: OLANZapine ODT 10 MG TAB 20 MG PO (02:58)
[2019-10-16 03:01] VITALS: PULSE 86; RESP 20; O2SAT 95
[2019-10-16] MEDS: hydrOXYzine pamoate 25 MG CAPSULE PO (03:30)
--- NOTE | 2019-10-16 03:35 | PC.NURSE ---
patient crying very loudly when in room alone. Patient has wheeled self to bathroom three times and no crying present during restroom trips. Patient returns to room and begins crying oloud enough for the whole ED to hear with doors closed. Patient and this nurse worked on some breathing techniques to help with anxiety and crying. Patient is now crying quieter and less frequent. Patient called this nurse into room and stated If all I'm waiting for is the medicine to start working I want to go now. Provider notified. Patient remains in room crying quietly.
== END 2019-10-16 04:05 | disposition home or self-care (01) ==
PROVIDERS: Emergency Provider Emergency Medicine
DX: F41.9 Anxiety disorder, unspecified (principal); R06.2 Wheezing
CPT/HCPCS: 94640; 99283; J7613

== ENCOUNTER 2019-10-22 10:24 | Emergency (ER) | payer OTHER, MEDICAID, SELFPAY ==
[2019-02-17 18:40] VITALS: BMI 68.8
[2019-10-22 10:20] VITALS: BP 178/82; PULSE 99; RESP 18; TEMP 36.7; O2SAT 95
[2019-10-22 11:07] VITALS: PULSE 83; RESP 22; O2SAT 88
[2019-10-22] MEDS: ALBUTEROL/IPRATROPIUM 3 ML AMPUL INH (11:09)
[2019-10-22 11:11] VITALS: PULSE 81; RESP 20; O2SAT 96
[2019-10-22] MEDS: OLANZapine ODT 10 MG TAB PO ×2 (11:26→14:33)
--- NOTE | 2019-10-22 11:35 | ED_ITS ---
HPI - Anxiety <LIZBETH Rosales - Last Filed: 10/22/19 19:25> General Chief Complaint: Anxiety Stated Complaint: anxiety Time Seen by Provider: 10/22/19 10:30 Source: patient and EMS Mode of arrival: EMS Limitations: no limitations History of Present Illness HPI narrative: This is a 38-year-old male, smoker, who is well-known to ED with frequent visits for anxiety presents today with chief complain of bad anxiety and reports he has been feeling shaky with difficulty breathing. Patient denies suicidal homicidal thoughts. Patient states he has not been sleeping for last 2 days with anxiety. Patient reports he receives his medications Zyprexa, Methadone daily at [facility] due tp history of taking it too much. According to pharmacy record patient had picked up Zyprexa 10 mg on 10/09/2019 at [place] [facility] patient assures me that these medications are at [facility]. Patient also reports he has ran out of his asthma medication albuterol. Patient denies recent illness, fever, cough. Patient reports he has an appointment with Dr. Gu at [facility] on Wednesday and just need something for today to help with his anxiety. Related Data Home Medications Medication Instructions Recorded Confirmed albuterol sulfate 2 - 4 puff INHALATION Q4-6H PRN 01/12/19 02/17/19 albuterol sulfate 3 ml INHALATION QID PRN 01/12/19 02/17/19 olanzapine 10 mg PO DAILY 02/17/19 02/17/19 Previous Rx's Medication Instructions Recorded acetaminophen 650 mg PO Q6HR PRN #30 tab 11/26/18 diphenhydramine HCl [Allergy 25 mg PO Q6HR PRN #30 tab 11/26/18 (diphenhydramine)] nystatin [Nystop] 1 applic TOPICAL TID PRN #1 pkg 11/26/18 gabapentin [Neurontin] 300 mg PO TID #180 cap 01/15/19 methadone 60 mg PO DAILY #1 tab 01/15/19 ascorbic acid (vitamin C) [Vitamin 500 mg PO DAILY #30 tab 02/19/19 C] ferrous sulfate 325 mg PO DAILY #30 tab 02/19/19 loratadine 10 mg PO DAILY #30 tab 02/19/19 prednisone 5 mg PO DAILY #32 tab 02/19/19 albuterol sulfate 2 inhalation INHALATION Q4-6H PRN 10/22/19 #1 each Allergies Allergy/AdvReac Type Severity Reaction Status Date / Time NSAIDS (Non-Steroidal Allergy Unknown ASTHMA Verified 08/07/19 08:26 Anti-Inflamma FLARE UPS [NSAIDS (NON-STEROIDAL ANTI-INFLAMMA] ibuprofen AdvReac Mild nausea, GI Verified 08/07/19 08:26 upset Review of Systems <LIZBETH Rosales - Last Filed: 10/22/19 19:25> Review of Systems Narrative: General: Denies fever, chills, fatigue, malaise, sweats. HEENT: Denies sinus pain, ear pain, sore throat, difficulty swallowing, dizziness. Respiratory: Denies dyspnea, cough, (+) wheezing, (+) SOB, hemoptysis, sputum. Cardiovascular: Denies chest pain, palpitations, orthopnea, edema. Gastrointestinal: Denies nausea, vomiting, abdominal pain, diarrhea, constipation, melena. : Denies dysuria, frequency, incontinence, hematuria, urinary retention. Musculoskeletal: Denies weakness, joint pain or bony pain. Skin: Denies rash, skin lesions, or other. Neurologic: Denies weakness, headache, numbness, change in speech, confusion, seizures, incoordination. Psychiatric: See HIP 12-point review of systems is negative except for those stated above. Patient History <LIZBETH Rosales - Last Filed: 10/22/19 19:25> Medical History Anxiety (Chronic) Asthma (Chronic) Chronic skin ulcer (Chronic) Methadone use disorder, mild, in controlled environment (Chronic) Morbid obesity (Chronic) Pulmonary hypertension (Chronic) Surgical History H/O vertebral fracture repair (Chronic) History of hip surgery (Chronic) Family History Mother Diabetes mellitus Father No problems noted. Social History household members: significant other Smoking Status: Current every day smoker Smoking Status: Current every day smoker alcohol intake frequency: 0-2 drinks per day Substance Use Type: marijuana Exam <Mike TONI DiggsP - Last Filed: 10/22/19 19:25> Narrative Exam Narrative: GEN: Alert, oriented x 3, well nourished and obese and in tears. Head: Normal cephalic, atraumatic. No scalp or temporal tenderness, palpable mass or rash. EYES: Pupils are equal, round, and reactive to light and accommodation. Extraocular muscles are intact bilaterally. There is no subconjunctival hemorrhage, exudate and sclera non-icteric. ENT: Bilateral auditory canals and tympanic membranes clear. Hearing grossly intact. Nose without bleeding, purulent discharge or deviation. Facial sinuses nontender to palpate. Mucous membrane moist, no mucosal lesion. Throat without erythema, tonsillar hypertrophy or exudate. Uvula in midline, airway patent. Neck: Trachea in midline. No JVD, non-tender without lymphadenopathy. No masses or thyroid megaly. Supple, non-tender and no meningeal signs. CARDIAC: Normal regular rate and rhythm without murmurs, gallops, or rubs. No chest wall tenderness. No peripheral edema, cyanosis or pallor. Capillary refill is less than 2 seconds. RESPIRATORY: Lungs sounds inspiratory and expiratory mild wheeze throughout. No cough, rales, or rhonchi. No stridor, respiratory distress, increase work of breathing, or accessary muscle used. Patient's O2 sat 98% on 2 L nasal cannula. ABD: Abdomen soft, nontender and obese. No guarding or rebound tenderness to palpate. Bowel sounds are normal in all 4 quadrants. There is no palpable masses or organomegaly. SKIN: Warm, dry, normal color for patient. No erythema, lesions or rash over visible areas. BACK: Nontender without deformity or crepitance. No flank tenderness. NEUROLOGICAL: Alert and oriented to place, time and person. Sensation and motor function intact bilaterally. No facial droops, dysphasia. Initial Vital Signs Initial Vital Signs: Vital Signs Temperature 98.1 F 10/22/19 10:20 Pulse Rate 99 H 10/22/19 10:20 Respiratory Rate 18 10/22/19 10:20 Blood Pressure 178/82 H 10/22/19 10:20 Pulse Oximetry 95 10/22/19 10:20 Psych Appearance: grossly normal Mental Status: other (in tears) Speech and Movement: speech and movement normal Mood: anxious mood and other (in tears) Attitude: cooperative Thought Process: normal Thought Content: normal, no delusions, no hallucinations and no homicidality Judgment: fair <Rene Soria DO - Last Filed: 10/22/19 19:51> Initial Vital Signs Initial Vital Signs: Vital Signs Temperature 98.1 F 10/22/19 10:20 Pulse Rate 99 H 10/22/19 10:20 Respiratory Rate 18 10/22/19 10:20 Blood Pressure 178/82 H 10/22/19 10:20 Pulse Oximetry 95 10/22/19 10:20 Scores <Mike MinaTONI ArriagaP - Last Filed: 10/22/19 19:25> GCS [place] coma scale eye opening: Spontaneous [place] coma scale verbal response: Orientated [place] coma scale motor response: Obey commands [place] coma scale total score: 15 Course <Mike MinaangShannaLIZBETH Mack - Last Filed: 10/22/19 19:25> Orders Ordered: ED Orders 10/22/19 11:23 Consult to [facility] - Food Preparation Supervisor Stat Discontinued Medications Albuterol/Ipratropium (Duoneb) 3 ml INH NOW ONE Stop: 10/22/19 11:05 Last Admin: 10/22/19 11:09 Dose: 3 ml Documented by: SHRUTHI Lorazepam (Ativan) 1 mg PO NOW ONE Stop: 10/22/19 13:01 Last Admin: 10/22/19 13:14 Dose: 1 mg Documented by: JIN Olanzapine (Zyprexa Zydis) 10 mg PO NOW ONE Stop: 10/22/19 11:18 Last Admin: 10/22/19 11:26 Dose: 10 mg Documented by: COLLIN Olanzapine (Zyprexa Zydis) 10 mg PO NOW ONE Stop: 10/22/19 14:30 Last Admin: 10/22/19 14:33 Dose: 10 mg Documented by: JIN Reevaluation(s) Reevaluation #1: After we discussed discharge instruction and patient was ready to go home, found patient crying aloud with tears and stating it's getting worse and rocking back and forth in wheelchair. Ativan 1mg was administered for his acute symptoms Time: 13:02 Reevaluation #2: Additional Zyprexa provided worse anxiety before dc to home. Informed that this will be the last dose of the medication that could be offered at this time. The patient is in agreement. Time: 14:30 Reevaluation #3: The patient is sitting on a chair and dozing. No acute distress noted. Time: 15:05 Vital Signs Vital signs: Vital Signs - 8 hr 10/22/19 14:38 10/22/19 16:00 Pulse Rate 98 H 88 Respiratory Rate 16 18 Blood Pressure [Right Wrist] 142/67 H 139/80 Pulse Oximetry 91 96 <Rene Soria DO - Last Filed: 10/22/19 19:51> Orders Ordered: ED Orders 10/22/19 11:23 Consult to [employer] [facility] - Food Preparation Supervisor Stat Discontinued Medications Albuterol/Ipratropium (Duoneb) 3 ml INH NOW ONE Stop: 10/22/19 11:05 Last Admin: 10/22/19 11:09 Dose: 3 ml Documented by: SHRUTHI Lorazepam (Ativan) 1 mg PO NOW ONE Stop: 10/22/19 13:01 Last Admin: 10/22/19 13:14 Dose: 1 mg Documented by: JIN Olanzapine (Zyprexa Zydis) 10 mg PO NOW ONE Stop: 10/22/19 11:18 Last Admin: 10/22/19 11:26 Dose: 10 mg Documented by: COLLIN Olanzapine (Zyprexa Zydis) 10 mg PO NOW ONE Stop: 10/22/19 14:30 Last Admin: 10/22/19 14:33 Dose: 10 mg Documented by: JIN Vital Signs Vital signs: Vital Signs - 8 hr 10/22/19 14:38 10/22/19 16:00 Pulse Rate 98 H 88 Respiratory Rate 16 18 Blood Pressure [Right Wrist] 142/67 H 139/80 Pulse Oximetry 91 96 MDM - Anxiety <LIZBETH Rosales - Last Filed: 10/22/19 19:25> Differential Diagnosis Differential diagnosis: Likely acute anxiety and other (hypoxia, asthma) Medical Records Attestation: I reviewed the patient's medical records. MDM Narrative Medical decision making narrative: This is a 38-year-old male who is well-known to ED with similar visits in the past with anxiety and pain. Patient states his anxiety is not controlled at home. He ran out of medication which as been dispensed by [facility] daily according to the patient. Patient denies chest pain but reports difficulty breathing. Lung sounds with scattered inspiratory and expiratory wheezing. Reports his albuterol inhaler has been ran out as well. Neb treatment was provided and improved wheezing. Patient was provided 10 mg of Zyprexa. Shortly after patient noticed dozing off sitting on a chair. We discussed planning to home soon. Shortly after, the patient became again in tears crying and c/o worsening symptoms of anxiety. He denies in any pain. Ativan 1 mg was offered for escalated symptoms. Patient frequently repeated this behavior intermittently. There was no dyspnea with stable vital signs. Patient travel to bathroom several times via wheelchair on his own. Patient's transport BLS was arranged and he has an appointment to follow-up tomorrow at [facility]. Patient was requesting more medications before [facility] ED but this was declined and patient advised to practice deep breathing exercises and was able to redirected by verbal commands. Discharge Plan Departure Patient Disposition: Home Clinical Impression: Anxiety Asthma Qualifiers: Asthma severity: mild Asthma persistence: intermittent Asthma complication type: uncomplicated Qualified Code(s): J45.20 - Mild intermittent asthma, uncomplicated Discharge Date/Time: 10/22/19 16:27 Activity Restrictions/Additional Instructions: You have been diagnosed with [anxiety and asthma. You were provided with Zyprexa 10 mg and Ativan 1mg while in the ED for your anxiety and neb treatment for wheezing.]. What to do: *Take your medications as directed. Please follow-up with [facility] tomorrow as planned for your medication needs *Follow up with your primary care provider in 2-3 days, call for an appointment. Let them know you were seen in the ED and that we asked you to be seen in follow up. *Return to ED if you have any new, worsening, or concerning symptoms, such as [chest pain, breathing difficulty, fever, severe anxiety, or any acute concerns]. Prescriptions: New albuterol sulfate 90 mcg/actuation aerosol powdr breath activated 2 inhalation INHALATION Q4-6H PRN (Reason: shortness of breath or wheezing) Qty: 1 RF: 0 No Action acetaminophen 325 mg Tablet 650 mg PO Q6HR PRN (Reason: Pain, Mild) Qty: 30 RF: 0 diphenhydramine HCl [Allergy (diphenhydramine)] 25 mg Tablet 25 mg PO Q6HR PRN (Reason: Itching) Qty: 30 RF: 0 nystatin [Nystop] 100,000 unit/gram Powder 1 applic topical TID PRN (Reason: abd folds/excoriation) Qty: 1 RF: 0 albuterol sulfate 2.5 mg /3 mL (0.083 %) solution for nebulization 3 ml Inhalation QID PRN (Reason: Shortness Of Breath) RF: 0 albuterol sulfate 90 mcg/actuation HFA aerosol inhaler 2 - 4 puff Inhalation Q4-6H PRN (Reason: Shortness Of Breath) RF: 0 gabapentin [Neurontin] 300 mg Capsule 300 mg PO TID Qty: 180 RF: 0 methadone 10 mg tablet 60 mg PO DAILY Qty: 1 RF: 0 olanzapine 10 mg tablet 10 mg PO DAILY RF: 0 loratadine 10 mg Tablet 10 mg PO DAILY Qty: 30 RF: 0 prednisone 5 mg tablet 5 mg PO DAILY Qty: 32 RF: 0 ferrous sulfate 325 mg (65 mg iron) tablet,delayed release (DR/EC) 325 mg PO DAILY Qty: 30 RF: 0 ascorbic acid (vitamin C) [Vitamin C] 500 mg tablet extended release 500 mg PO DAILY Qty: 30 RF: 0 Referrals: [facility] [Outside] <Rene Soria, DO - Last Filed: 10/22/19 19:51> Sign Out Provider Sign Out Attestation: Dr Soria Co-Sign Statement: I was available for consultation during this patient's emergency department visit. This chart is signed by myself for administrative purposes only. I did not have direct contact with this patient during this visit. They were seen independently by the APC.
[2019-10-22] MEDS: LORazepam 0.5 MG TABLET 1 MG PO (13:14)
--- NOTE | 2019-10-22 14:12 | PC.NURSE ---
Pt continues to be anxious, verbally reassured. Unable to get bariatric cabulance r/t availability and staffing. Pt must go by BLS as he is unable to transfer/ambulate, has generalized weakness, is on oxygen.
[2019-10-22 14:38] VITALS: BP 142/67; PULSE 98; RESP 16; O2SAT 91
--- NOTE | 2019-10-22 14:52 | PC.NURSE ---
Pt w/ continual crying. Verbally reassured. Has received medication per orders. Awaiting transport. Pt will stop crying if distracted (going to bathroom, staff in room). Door closed for patient privacy. Call zarate in reach, pt return demonstrates how to use.
[2019-10-22 16:00] VITALS: BP 139/80; PULSE 88; RESP 18; O2SAT 96
--- NOTE | 2019-10-22 16:26 | PC.NURSE ---
bedside report given to A drafter electronic. Pt crying and yelling for more ativan and narcotic pain medications. Request was denied as pt has previous history and contract for controlled substances. Pt able to be verbally calmed but escalated when leaving with EMS. Encouraged to use breathing exercises and follow up with his doctor in the am. Denies pain/resp distress.
== END 2019-10-22 16:27 | disposition home or self-care (01) ==
PROVIDERS: Emergency Provider Nurse Practitioner Family
DX: F41.9 Anxiety disorder, unspecified (principal); J45.20 Mild intermittent asthma, uncomplicated
CPT/HCPCS: 94640; 99284; 99285

== ENCOUNTER 2019-11-12 14:15 | Emergency (ER) | payer OTHER, MEDICAID, SELFPAY ==
[2019-02-17 18:40] VITALS: BMI 68.8
[2019-11-12 14:34] VITALS: BP 138/67; PULSE 102; RESP 22; TEMP 36.6; O2SAT 85
[2019-11-12 14:39] VITALS: O2SAT 93
--- NOTE | 2019-11-12 14:48 | ED.ANXIETY ---
HPI - Anxiety General Chief Complaint: Anxiety Stated Complaint: Anxiety Time Seen by Provider: 11/12/19 14:15 Source: patient Mode of arrival: Ambulatory Limitations: no limitations History of Present Illness HPI narrative: 39-year-old daily smoker with history of asthma on home oxygen and significant anxiety presents with a chief complaint of feeling anxious and having difficulty breathing. Patient is well known to the staff and presents frequently understand these circumstances. Patient denies any fever chills and has no chest pain. He admits to shortness of breath but frequently will break and have a full conversation with the before returning to his forced inspiratory wheeze. He states he feels like he is withdrawing from his chronic medications and states that he was unable to get his methadone today, but had it yesterday, and will be able to get it again tomorrow. MD complaint: anxiety Symptoms: dyspnea Severity: mild Place: home Provoking factors: none known Relieving factors: nothing Associated symptoms: denies other symptoms Related Data Home Medications Medication Instructions Recorded Confirmed albuterol sulfate 2 - 4 puff INHALATION Q4-6H PRN 01/12/19 02/17/19 albuterol sulfate 3 ml INHALATION QID PRN 01/12/19 02/17/19 olanzapine 10 mg PO DAILY 02/17/19 02/17/19 Previous Rx's Medication Instructions Recorded acetaminophen 650 mg PO Q6HR PRN #30 tab 11/26/18 diphenhydramine HCl [Allergy 25 mg PO Q6HR PRN #30 tab 11/26/18 (diphenhydramine)] nystatin [Nystop] 1 applic TOPICAL TID PRN #1 pkg 11/26/18 gabapentin [Neurontin] 300 mg PO TID #180 cap 01/15/19 methadone 60 mg PO DAILY #1 tab 01/15/19 ascorbic acid (vitamin C) [Vitamin 500 mg PO DAILY #30 tab 02/19/19 C] ferrous sulfate 325 mg PO DAILY #30 tab 02/19/19 loratadine 10 mg PO DAILY #30 tab 02/19/19 prednisone 5 mg PO DAILY #32 tab 02/19/19 albuterol sulfate 2 inhalation INHALATION Q4-6H PRN 10/22/19 #1 each Allergies Allergy/AdvReac Type Severity Reaction Status Date / Time NSAIDS (Non-Steroidal Allergy Unknown ASTHMA Verified 08/07/19 08:26 Anti-Inflamma FLARE UPS [NSAIDS (NON-STEROIDAL ANTI-INFLAMMA] ibuprofen AdvReac Mild nausea, GI Verified 08/07/19 08:26 upset Review of Systems Constitutional Constitutional: Denies chills, Denies fatigue, Denies fever(s), Denies frequent falls, Denies lethargy and Denies weakness Eyes Eyes: Denies change in vision, Denies eye discharge, Denies irritation and Denies loss of vision ENT Ears, Nose, Mouth, and Throat: Denies change in voice, Denies dizziness, Denies neck pain, Denies sore throat and Denies throat swelling Cardiovascular Cardiovascular: Denies chest pain, Denies irregular heart rhythm, Denies lightheadedness, Denies palpitations, Reports dyspnea, Denies dyspnea on exertion and Denies orthopnea Respiratory Respiratory: Denies cough, Reports dyspnea, Denies dyspnea on exertion and Reports wheezing Gastrointestinal Gastrointestinal: Denies abdominal pain, Denies change in bowel habits, Denies diarrhea, Denies nausea and Denies vomiting Genitourinary Genitourinary: Denies hematuria, Denies flank pain, Denies urinary incontinence and Denies urinary urgency Musculoskeletal Musculoskeletal: Denies back pain, Denies muscle weakness, Denies neck pain, Denies numbness and Denies tingling Integumentary/Breasts Skin/Breast: Denies pruritus, Denies erythema, Denies rash and Denies wounds Neurologic Neurologic: Denies behavioral changes, Denies confusion, Denies dizziness, Denies frequent falls, Denies loss of vision, Denies numbness, Denies tingling and Denies weakness Psychiatric Psychiatric: Reports anxiety, Denies behavioral changes, Denies confusion, Denies depression, Denies homicidal ideation and Denies suicidal ideation Endocrine Endocrine: Denies fatigue, Denies flushing and Denies palpitations Hematologic/Lymphatic Hematologic/Lymphatic: Denies easy bruising Allergic/Immunologic Allergic/Immunologic: Denies urticaria, Denies throat swelling and Reports wheezing Patient History Medical History Anxiety (Chronic) Asthma (Chronic) Chronic skin ulcer (Chronic) Methadone use disorder, mild, in controlled environment (Chronic) Morbid obesity (Chronic) Pulmonary hypertension (Chronic) Surgical History H/O vertebral fracture repair (Chronic) History of hip surgery (Chronic) Family History Mother Diabetes mellitus Father No problems noted. Social History household members: significant other Smoking Status: Current every day smoker Smoking Status: Current every day smoker alcohol intake frequency: 0-2 drinks per day Substance Use Type: marijuana Exam Narrative Exam Narrative: GENERAL: [39] year old patient appears stated age. Morbidly obese, tearful, anxious. HEAD: Atraumatic. Normocephalic. EYES: Pupils equal round and reactive. Extraocular motions intact. No scleral icterus. No injection or drainage. ENT: Nose without bleeding, purulent drainage. Throat without erythema, tonsillar hypertrophy or exudate. Airway patent. NECK: Trachea midline. Non tender CARDIOVASCULAR: Regular rate and rhythm without murmurs, gallops, or rubs. RESPIRATORY: Clear to auscultation. Breath sounds equal bilaterally. No wheezes, rales, or rhonchi. GASTROINTESTINAL: Abdomen soft, non-tender, nondistended. EXTREMITIES: No edema or joint tenderness. BACK: Nontender without deformity or crepitance. No flank tenderness. NEURO: AOx3. SKIN: No rash or erythema of visible areas Initial Vital Signs Initial Vital Signs: Vital Signs Temperature 97.9 F 11/12/19 14:34 Pulse Rate 102 H 11/12/19 14:34 Respiratory Rate 22 11/12/19 14:34 Blood Pressure 138/67 11/12/19 14:34 Pulse Oximetry 85 L 11/12/19 14:34 Course Orders Ordered: Discontinued Medications Albuterol/Ipratropium (Duoneb) 3 ml INH NOW ONE Stop: 11/12/19 14:42 Last Admin: 11/12/19 14:51 Dose: 3 ml Documented by: HARLEY Clonidine HCl (Catapres-Tts 1) 0.1 mg TOP NOW ONE Stop: 11/12/19 15:34 Last Admin: 11/12/19 15:57 Dose: 0.1 mg Documented by: NUBIA Olanzapine (Zyprexa Zydis) 20 mg PO NOW ONE Stop: 11/12/19 15:16 Last Admin: 11/12/19 15:18 Dose: 20 mg Documented by: NUBIA Vital Signs Vital signs: Vital Signs - 8 hr 11/12/19 14:34 11/12/19 14:39 11/12/19 14:52 Temperature 97.9 F Pulse Rate 102 H Respiratory Rate 22 Blood Pressure 138/67 Pulse Oximetry 85 L 93 90 L Discharge Plan Departure Patient Disposition: Home Clinical Impression: Anxiety Discharge Date/Time: 11/12/19 16:10 Instructions: Anxiety Disorders Activity Restrictions/Additional Instructions: *You have been diagnosed with [anxiety] *What to do: *Take medications as directed *Follow up with your primary care provider in 2-3 days, call for an appointment. Let them know you were seen in the Emergency Department and that we ask that you be seen in follow up *Return to ER if you should have any new, worsening or concerning symptoms Prescriptions: No Action acetaminophen 325 mg Tablet 650 mg PO Q6HR PRN (Reason: Pain, Mild) Qty: 30 RF: 0 diphenhydramine HCl [Allergy (diphenhydramine)] 25 mg Tablet 25 mg PO Q6HR PRN (Reason: Itching) Qty: 30 RF: 0 nystatin [Nystop] 100,000 unit/gram Powder 1 applic topical TID PRN (Reason: abd folds/excoriation) Qty: 1 RF: 0 albuterol sulfate 2.5 mg /3 mL (0.083 %) solution for nebulization 3 ml Inhalation QID PRN (Reason: Shortness Of Breath) RF: 0 albuterol sulfate 90 mcg/actuation HFA aerosol inhaler 2 - 4 puff Inhalation Q4-6H PRN (Reason: Shortness Of Breath) RF: 0 gabapentin [Neurontin] 300 mg Capsule 300 mg PO TID Qty: 180 RF: 0 methadone 10 mg tablet 60 mg PO DAILY Qty: 1 RF: 0 olanzapine 10 mg tablet 10 mg PO DAILY RF: 0 loratadine 10 mg Tablet 10 mg PO DAILY Qty: 30 RF: 0 prednisone 5 mg tablet 5 mg PO DAILY Qty: 32 RF: 0 ferrous sulfate 325 mg (65 mg iron) tablet,delayed release (DR/EC) 325 mg PO DAILY Qty: 30 RF: 0 ascorbic acid (vitamin C) [Vitamin C] 500 mg tablet extended release 500 mg PO DAILY Qty: 30 RF: 0 albuterol sulfate 90 mcg/actuation aerosol powdr breath activated 2 inhalation INHALATION Q4-6H PRN (Reason: shortness of breath or wheezing) Qty: 1 RF: 0
[2019-11-12] MEDS: ALBUTEROL/IPRATROPIUM 3 ML AMPUL INH (14:51)
[2019-11-12 14:52] VITALS: O2SAT 90
[2019-11-12] MEDS: OLANZapine ODT 10 MG TAB 20 MG PO (15:18)
[2019-11-12] MEDS: cloNIDine TTS 0.1 MG PATCH TOP (15:57)
== END 2019-11-12 16:10 | disposition home or self-care (01) ==
PROVIDERS: Emergency Provider Emergency Medicine
DX: F41.9 Anxiety disorder, unspecified (principal); R06.00 Dyspnea, unspecified; J45.909 Unspecified asthma, uncomplicated
CPT/HCPCS: 94640; 99284; 99285